=== PATIENT | female | born 1990 | race Caucasian/White ===

== ENCOUNTER 2022-04-23 14:14 | Emergency (ER) | payer SELFPAY ==
--- OUTSIDE RECORDS SUMMARY | 2022-04-23 14:19 | XMS REPORT | Continuity of Care Document ---
:1990 Author Organization [facility] t Address [address] [place] [address] [address]. [address] [place] [address] Care Team Providers Name Role Phone Naya Chirinos Primary Care Physician [phone] Yamil PHOENIX Attending Clinician Unavailable Yamil Monroy Attending Clinician YOON PAGE Attending Clinician Unavailable Yoon Page MD Attending Clinician Doctor Unassigned, [place] Attending Clinician Unavailable Pgy2 Attending Clinician Unavailable Marques Mansfield MD Attending Clinician [facility] Resident Attending Clinician Unavailable Aracely Villanueva MD Attending Clinician Dena Santos MD Attending Clinician [phone] Jeanette Henley MD Attending Clinician JEANETTE HENLEY Attending Clinician Unavailable BEBE GABRIEL Attending Clinician Unavailable Yamil PHOENIX Admitting Clinician Unavailable YOON PAGE Admitting Clinician Unavailable Payers Payer Name Policy Type Policy Number Effective Date Expiration Date S [place] [employer] [place] [id number] 2021 00:00:00 WOMEN Problems Condition Condition Condition Status Onset Resolution Last Treating Co mments Source Name Details Category Date Date Treatment Clinician Date No known No known Disease Unive rs active active ity of problems problems [facility] Allergies, Adverse Reactions, Alerts Allergy Allergy Status Severity Reaction(s) Onset Inactive Treating Comm ents Source Name Type Date Date Clinician NO KNOWN Drug Active Univers ALLERGIE Class ity of S [facility] Social History Social Habit Start Date Stop Date Quantity Comments Source Exposure to Not sure [facility] SARS-CoV-2 (event) Medica l Branch Alcohol intake 2021-06-24 2021-06-24 [facility] 00:00:00 00:00:00 Medical Branch Sex Ass[birth year] At [birth year] [facility] 00:00:00 00:00:00 Medical Branch Smoking Status Start Date Stop Date Source Unknown if ever smoked [facility] Medications Ordered Filled Start Stop Current Ordering Indication Dosage Frequency Signature Comments Components Source Medication Medication Date Date Medication? Clinician (SIG) Name Name Dose 0 No Unknown 03-02 00:00: 00 Dose 2021-0 No Unknown 03-02 00:00: 00 Dose 2021-0 No Unknown 03-02 00:00: 00 Dose 2021-0 No Unknown 03-02 00:00: 00 Dose 2021-0 No Unknown 7 00:00: 00 Dose 2021-0 No Unknown 03-02 00:00: 00 Dose 2021-0 No Unknown 7 00:00: 00 Wellbutrin 2-0 No 1mg XL 300 mg - 24 hr 00:00: tablet, 00 extended release buspirone 2021-0 No 1mg 10 mg 7-19 tablet 00:00: 00 Lamictal 25 2-0 No 2mg mg tablet 02-28 00:00: 00 Seroquel 2-0 No 1mg 100 mg 7-19 tablet 00:00: 00 Dose 2-0 No Unknown 7 00:00: 00 Dose 2-0 No Unknown 7- 00:00: 00 Dose 2-0 No Unknown 7- 00:00: 00 Dose 2-0 No Unknown 7-19 00:00: 00 Dose 2-0 No Unknown 7- 00:00: 00 Dose 2-0 No Unknown 7- 00:00: 00 Dose 2-0 No Unknown 7-13 00:00: 00 Dose 2-0 No Unknown 7- 00:00: 00 Dose 2-0 No Unknown 7- 00:00: 00 Dose 2-0 No Unknown 7- 00:00: 00 Dose 2-0 No Unknown 7-07 00:00: 00 Dose 2022-0 No Unknown 7-07 00:00: 00 Dose 2022-0 No Unknown 7-07 00:00: 00 Dose 2022-0 No Unknown 7-07 00:00: 00 Dose 2022-0 No Unknown 7-06 00:00: 00 Wellbutrin 2022-0 No 1mg XL 300 mg 7-05 24 hr 00:00: tablet, 00 extended release buspirone 2022-0 No 1mg 10 mg 7-05 tablet 00:00: 00 Seroquel 2022-0 No 1mg 100 mg 7-05 tablet 00:00: 00 Lamictal 25 2-0 No 1mg mg tablet 7-05 00:00: 00 Dose 2022-0 No Unknown 7-05 00:00: 00 Dose 2022-0 No Unknown 7-05 00:00: 00 Dose 2022-0 No Unknown 7-05 00:00: 00 Dose 2022-0 No Unknown 6-30 00:00: 00 Dose 2022-0 No Unknown 6-30 00:00: 00 Dose 2022-0 No Unknown 6-30 00:00: 00 levothyroxi 2022-0 No 1mcg ne 112 mcg 6-09 tablet 00:00: 00 chlorthalid 2022-0 No 1mg one 25 mg 6-08 tablet 00:00: 00 levothyroxi 2022-0 No 1mcg ne 50 mcg 6-08 tablet 00:00: 00 spironolact 2022-0 No 1mg one 100 mg 5-12 tablet 00:00: 00 ibuprofen 2022-0 No 1mg 800 mg 5-12 tablet 00:00: 00 Wellbutrin 2022-0 No 1mg XL 300 mg 5-03 24 hr 00:00: tablet, 00 extended release Celexa 20 2-0 No 1mg mg tablet 5-03 00:00: 00 buspirone 2022-0 No 1mg 10 mg 5-03 tablet 00:00: 00 Seroquel 2022-0 No 1mg 100 mg 5-03 tablet 00:00: 00 levothyroxi 2022-0 No 1mcg ne 25 mcg 4-18 tablet 00:00: 00 spironolact 2022-0 No 1mg one 50 mg 4-17 tablet 00:00: 00 metformin 2022-0 No 1mg ER 500 mg 4-14 24 hr 00:00: tablet,exte 00 nded release spironolact 2-0 No 1mg one 50 mg 4-14 tablet 00:00: 00 spironolact 2022-0 No 1mg one 50 mg 4-14 tablet 00:00: 00 levothyroxi 2-0 No 1mcg ne 25 mcg 4-14 tablet 00:00: 00 Dose 2022-0 No Unknown 4-14 00:00: 00 Dose 2022-0 No Unknown 4-14 00:00: 00 Dose 2022-0 No Unknown 4-14 00:00: 00 Wellbutrin 2022-0 No 1mg XL 300 mg 4-06 24 hr 00:00: tablet, 00 extended release Celexa 20 2-0 No 1mg mg tablet 4-05 00:00: 00 Wellbutrin 2022-0 No 1mg XL 300 mg 4-05 24 hr 00:00: tablet, 00 extended release buspirone 2-0 No 1mg 10 mg 4-05 tablet 00:00: 00 Seroquel 2-0 No 1mg 100 mg 4-05 tablet 00:00: 00 Dose 2022-0 No Unknown 4-05 00:00: 00 Dose 2022-0 No Unknown 4-05 00:00: 00 Dose 2022-0 No Unknown 4-05 00:00: 00 Dose 2022-0 No Unknown 4-05 00:00: 00 Dose 2022-0 No Unknown 4-05 00:00: 00 Dose 2022-0 No Unknown 4-05 00:00: 00 Dose 2022-0 No Unknown 4-05 00:00: 00 Dose 2022-0 No Unknown 4-05 00:00: 00 Dose 2022-0 No Unknown 4-05 00:00: 00 Dose 2022-0 No Unknown 4-05 00:00: 00 Dose 2022-0 No Unknown 4-05 00:00: 00 Dose 2022-0 No Unknown 4-05 00:00: 00 Dose 2022-0 No Unknown 4-05 00:00: 00 Dose 2022-0 No Unknown 4-05 00:00: 00 Dose 2022-0 No Unknown 4-05 00:00: 00 Dose 2022-0 No Unknown 4-05 00:00: 00 Dose 2022-0 No Unknown 4-05 00:00: 00 Dose 2022-0 No Unknown 4-05 00:00: 00 Dose 2022-0 No Unknown 3-03 00:00: 00 Dose 2022-0 No Unknown 3-03 00:00: 00 Dose 2022-0 No Unknown 3-03 00:00: 00 Dose 2022-0 No Unknown 3-03 00:00: 00 Dose 2022-0 No Unknown 3-03 00:00: 00 Dose 2022-0 No Unknown 3-03 00:00: 00 Dose 2022-0 No Unknown 3-03 00:00: 00 Dose 2022-0 No Unknown 3-03 00:00: 00 Dose 2022-0 No Unknown 3-03 00:00: 00 Dose 2022-0 No Unknown 3-03 00:00: 00 Dose 2022-0 No Unknown 3-03 00:00: 00 Dose 2022-0 No Unknown 3-03 00:00: 00 Dose 2022-0 No Unknown 3-03 00:00: 00 Dose 2022-0 No Unknown 3-03 00:00: 00 Dose 2022-0 No Unknown 3-03 00:00: 00 Dose 2022-0 No Unknown 3-03 00:00: 00 Dose 2022-0 No Unknown 3-03 00:00: 00 Dose 2022-0 No Unknown 3-03 00:00: 00 Dose 2022-0 No Unknown 3-03 00:00: 00 Dose 2022-0 No Unknown 3-03 00:00: 00 Dose 2022-0 No Unknown 3-03 00:00: 00 Dose 2022-0 No Unknown 3-03 00:00: 00 Dose 2022-0 No Unknown 3-03 00:00: 00 Dose 2022-0 No Unknown 3-03 00:00: 00 Dose 2022-0 No Unknown 3-03 00:00: 00 Dose 2022-0 No Unknown 3-03 00:00: 00 Dose 2022-0 No Unknown 3-03 00:00: 00 Dose 2022-0 No Unknown 3-03 00:00: 00 Celexa 20 2022-0 No 1mg mg tablet 2-25 00:00: 00 Dose 2022-0 No Unknown 2-25 00:00: 00 Dose 2022-0 No Unknown 2-25 00:00: 00 Dose 2022-0 No Unknown 2-25 00:00: 00 Dose 2022-0 No Unknown 2-25 00:00: 00 Dose 2022-0 No Unknown 2-25 00:00: 00 Dose 2022-0 No Unknown 2-25 00:00: 00 Dose 2022-0 No Unknown 2-25 00:00: 00 Dose 2022-0 No Unknown 2-25 00:00: 00 Dose 2022-0 No Unknown 2-25 00:00: 00 Dose 2022-0 No Unknown 2-25 00:00: 00 Dose 2022-0 No Unknown 2-25 00:00: 00 Dose 2022-0 No Unknown 2-25 00:00: 00 Dose 2022-0 No Unknown 2-25 00:00: 00 Dose 2022-0 No Unknown 2-25 00:00: 00 Dose 2022-0 No Unknown 2-25 00:00: 00 Dose 2022-0 No Unknown 2-25 00:00: 00 Dose 2022-0 No Unknown 2-25 00:00: 00 Dose 2022-0 No Unknown 2-25 00:00: 00 Dose 2022-0 No Unknown 2-25 00:00: 00 Dose 2022-0 No Unknown 2-25 00:00: 00 Dose 2022-0 No Unknown 2-25 00:00: 00 Dose 2022-0 No Unknown 2-25 00:00: 00 Dose 2022-0 No Unknown 2-25 00:00: 00 Dose 2022-0 No Unknown 2-25 00:00: 00 Dose 2022-0 No Unknown 2-25 00:00: 00 Dose 2022-0 No Unknown 2-25 00:00: 00 Dose 2022-0 No Unknown 2-25 00:00: 00 Dose 2022-0 No Unknown 2-25 00:00: 00 Dose 2022-0 No Unknown 2-25 00:00: 00 Dose 2022-0 No Unknown 2-25 00:00: 00 Dose 2022-0 No Unknown 2-25 00:00: 00 Dose 2022-0 No Unknown 2-25 00:00: 00 Dose 2022-0 No Unknown 2-25 00:00: 00 Dose 2022-0 No Unknown 2-25 00:00: 00 Dose 2022-0 No Unknown 2-25 00:00: 00 Dose 2022-0 No Unknown 2-25 00:00: 00 Dose 2-0 No Unknown 2-25 00:00: 00 Dose 2-0 No Unknown 2-25 00:00: 00 Dose 2-0 No Unknown 2-25 00:00: 00 Dose 2-0 No Unknown 2-25 00:00: 00 Dose 2-0 No Unknown 2-08 00:00: 00 Celexa 20 2-0 No 1mg mg tablet 2-08 00:00: 00 Dose 2022-0 No Unknown 2-08 00:00: 00 Dose 2-0 No Unknown 2-08 00:00: 00 Dose 2-0 No Unknown 2-08 00:00: 00 levothyroxi 2-0 No 1mcg ne 25 mcg 2-08 tablet 00:00: 00 Dose 2-0 No Unknown 2-02 00:00: 00 Dose 2-0 No Unknown 2-02 00:00: 00 Dose 2-0 No Unknown 2-02 00:00: 00 Dose 2-0 No Unknown 2-02 00:00: 00 Wellbutrin 2-0 No 1mg XL 150 mg 1-24 24 hr 00:00: tablet, 00 extended release Dose 2-0 No Unknown 1-24 00:00: 00 Dose 2-0 No Unknown 1-24 00:00: 00 Dose 2-0 No Unknown 1-24 00:00: 00 Dose 2-0 No Unknown 1-24 00:00: 00 Dose 2-0 No Unknown 1-11 00:00: 00 Wellbutrin 2-0 No 1mg XL 150 mg 1-11 24 hr 00:00: tablet, 00 extended release Dose 2-0 No Unknown 1-11 00:00: 00 Dose 2-0 No Unknown 1-11 00:00: 00 Dose 2-0 No Unknown 1-11 00:00: 00 Dose 2-0 No Unknown 1-11 00:00: 00 Zofran 4 mg 2020-1 No 1mg tablet 2-20 00:00: 00 Dose 2020-1 No Unknown 2-20 00:00: 00 omeprazole 2020-1 No 1mg 40 mg 2-20 capsule,del 00:00: ayed 00 release maalox:diph 2021-1 2021- No 15mL 15 mL, Uni vers enhydrAMINE 2-15 12-15 Oral ity of :lidocaine 21:00: 20:01 [place] 2 % viscous 00 :00 Swallow), Med ical 1:1:1 ONCE, 1 Branch (FIRST-MOUT dose, On HWASH BLM) Wed oral 07/27/21 suspension at 1500, 15 mL Routine methocarbam 2020-08 No 500mg 500 mg, U nivers oL 2-15 12-15 Oral, ity of (ROBAXIN) 19:30: 18:29 [place]CE, 1 [place] tablet 500 00 :00 dose, On Medic al mg Wed Branch 07/27/21 at 1330, Routine ketorolac 2020-08- No 30mg 30 mg, Unive rs (TORADOL) 2-15 12-15 Slow IV ity of injection 19:30: 18:28 Push, [place] 30 mg 00 :00 ONCE, 1 Medical dose, On Branch 07/27/21 at 1330, PAWEL
Fa culty member approving Restricted medication : Yamil PHOENIX aspirin 2020-08- No 324mg 324 mg, Unive rs chewable 2-15 12-15 Oral, ity of tablet 324 19:30: 19:30 ONCE, 1 [place] mg 00 :00 dose, On Medical Wed Branch 07/27/21 at 1330, Routine famotidine 2020-08 Yes [id number] 40mg Take 1 Univers (PEPCID) 40 2-15 tablet by ity of mg tablet 00:00: mouth [place] 00 daily. Medical Branch ibuprofen 2020-08 Yes [id number] 600mg Take 1 U nivers 600 mg 2-15 tablet by ity of tablet 00:00: mouth [place] 00 every 6 Medical (six) Branch hours as needed for Pain (scale 4-6). methocarbam 2020-08 Yes [id number] 500mg Take 1 Univers oL 500 mg 2-15 tablet by ity o f tablet 00:00: mouth 4 [place] 00 (four) Medical times Branch daily. Dose 2020-08 No Unknown 2-15 00:00: 00 hydroxyzine 2020-08 No 1mg HCl 50 mg 2-15 tablet 00:00: 00 Dose 2020-08 No Unknown 2-15 00:00: 00 sertraline 2020-08 No 15mg 100 mg 1-18 tablet 00:00: 00 hydroxyzine 2020-08 No 1mg HCl 50 mg 1-18 tablet 00:00: 00 trazodone 2020-08 No 2mg 100 mg 1-18 tablet 00:00: 00 acetaminoph 2020-08- No 1000mg 1,000 mg, Univers en 1-13 -13 Oral, ity of (TYLENOL) 05:45: 04:43 ONCE, 1 [place] tablet 00 :00 dose, On Medical 1,000 mg Fri Branch 06/24/21 at 2345, Routine Dose 2020-08 No Unknown 1-04 00:00: 00 Dose 2020-08 No Unknown 1-04 00:00: 00 Dose 2020-08 No Unknown 1-04 00:00: 00 Abilify 2 2020-08 No 1mg mg tablet 1-04 00:00: 00 Zoloft 100 2020-08 No 1mg mg tablet 0-18 00:00: 00 hydroxyzine 2020-08 No 1mg HCl 50 mg 0-18 tablet 00:00: 00 hydroxyzine 2020-08 No 1mg HCl 50 mg 0-18 tablet 00:00: 00 trazodone 2020-08 No 1mg 100 mg 0-18 tablet 00:00: 00 sertraline 2020-08 No 1mg 50 mg 0-04 tablet 00:00: 00 Dose 2020-1 No Unknown 0-04 00:00: 00 sertraline 2020-0 No 1mg 50 mg 9-20 tablet 00:00: 00 Dose 2020-0 No Unknown 9-20 00:00: 00 levonorgest 2020-0 2020- No [id number] 1{devic Univers reL 01-05 100 e} ity of (LILETTA) 21:00: 21:00 [place] IUD 1 00 :00 Flat Folder Branch ibuprofen 2020- No [id number] 800mg Univers (IBU) 01-05 100 ity of tablet 800 21:00: 21:00 [place] mg 00 :00 Medical Branch ibuprofen 2020- No [id number] 800mg 800 mg, Univers (IBU) 01-05 100 Oral, ity of tablet 800 21:00: 21:00 ONCE, 1 [place] mg 00 :00 dose, [facility] 01/05/21 at Branch 1600, Routine levonorgest 2020- No [id number] 1{devic 1 Device, Univers reL 01-05 100 e} Intrauteri ity of (LILETTA) 21:00: 21:00 [place], [place]CE, [place] 1 00 :00 1 dose, Flat Folder [facility] 01/05/21 at 1600, Routine levonorgest 2020- No [id number] 1{devi Univers reL 01-05 100 e} ity of (LILETTA) 21:00: 21:00 [place] IUD 1 00 :00 Flat [place] [facility] ibuprofen 2020- No [id number] 800mg Univers (IBU) 01-05 100 ity of tablet 800 21:00: 21:00 [place] mg 00 :00 Medical [facility] ibuprofen 2020- No [id number] 800mg 800 mg, Univers (IBU) 01-05 100 Oral, ity of tablet 800 21:00: 21:00 ONCE, 1 [place] mg 00 :00 dose, [facility] 01/05/21 at Branch 1600, Routine levonorgest 2020- No [id number] 1{devic 1 Device, Univers reL 01-05 100 e} Intrauteri ity of (LILETTA) 21:00: 21:00 [place], [place]CE, [place] 1 00 :00 1 dose, Flat Folder [facility] 01/05/21 at 1600, Routine levonorgest 2020- No [id number] 1{devi Univers reL 01-05 100 e} ity of (LILETTA) 21:00: 21:00 [place] IUD 1 00 :00 [place] [facility] ibuprofen 2020- No [id number] 800mg Univers (IBU) 01-05 100 ity of tablet 800 21:00: 21:00 [place] mg 00 :00 Medical [facility] ibuprofen 2020- No [id number] 800mg 800 mg, Univers (IBU) 01-05 100 Oral, ity of tablet 800 21:00: 21:00 ONCE, 1 [place] mg 00 :00 dose, Wed Medical 01/05/21 at Branch 1600, Routine levonorgest 2020- No [id number] 1{devic 1 Device, [facility] 01-05 100 e} Intrauteri ity of ([facility]) 21:00: 21:00 [place], [place]CE, [place] 1 00 :00 1 dose, Flat Folder Wed [facility] 01/05/21 at 1600, Routine levonorgest 2026- No by [facility] 01-05 Intrauteri ity of ([facility] 00:00: 04:59 ne route. [place] INTRAUTERIN 00 :00 Medical E) Branch levonorgest 2026- No by [facility] 01-05 Intrauteri ity of ([facility] 00:00: 04:59 ne route. [place] INTRAUTERIN 00 :00 Medical E) Branch levonorgest 2026- No by [facility] 01-05 Intrauteri ity of ([facility] 00:00: 04:59 ne route. [place] INTRAUTERIN 00 :00 Medical E) Branch levonorgest 2026- No by [facility] 01-05 Intrauteri ity of ([facility] 00:00: 04:59 ne route. [place] INTRAUTERIN 00 :00 Medical E) Branch levonorgest 2026- No by [facility] 01-05 Intrauteri ity of ([facility] 00:00: 04:59 ne route. [place] INTRAUTERIN 00 :00 Medical E) Branch levonorgest 2026- No by [facility] 01-05 Intrauteri ity of ([facility] 00:00: 04:59 ne route. [place] INTRAUTERIN 00 :00 Medical E) Branch ProAir HFA No 2mcg/ac 90 5-03 tuation mcg/actuati 00:00: on aerosol 00 inhaler Tessalon 2020-0 No 1mg Perles 100 5-03 mg capsule 00:00: 00 mupirocin 2 2020-0 No 1% % topical 4-09 ointment 00:00: 00 clotrimazol 2020-0 No 1% e 1 % 11-19 topical 00:00: cream 00 Diflucan 2020-0 No 1mg 150 mg 11-19 tablet 00:00: 00 No known No Univers medications ity of [facility] No known No [facility] known No Univers medications it of [facility] No known No Univers medications it of [facility] Immunizations Ordered Filled Immunization Date Status Comments [facility] e Immunization Name Name SARS-COV-2 COVID-19 2020-12-02 Completed Unive rsity of PFIZER VACCINE 00:00:00 [facility] SARS-COV-2 COVID-19 2020-12-02 Completed Unive rsity of PFIZER VACCINE 00:00:00 [facility] SARS-COV-2 COVID-19 2020-12-02 Completed Unive rsity of PFIZER VACCINE 00:00:00 [facility] SARS-COV-2 COVID-19 2020-12-02 Completed Unive rsity of PFIZER VACCINE 00:00:00 [facility] SARS-COV-2 COVID-19 2020-12-02 Completed Unive rsity of PFIZER VACCINE 00:00:00 [facility] SARS-COV-2 COVID-19 2020-12-02 Completed Unive rsity of PFIZER VACCINE 00:00:00 [facility] SARS-COV-2 COVID-19 2020-12-02 Completed Unive rsity of PFIZER VACCINE 00:00:00 [facility] SARS-COV-2 COVID-19 2020-12-02 Completed Unive rsity of PFIZER VACCINE 00:00:00 [facility] SARS-COV-2 COVID-19 2020-12-02 Completed Unive rsity of PFIZER VACCINE 00:00:00 [facility] SARS-COV-2 COVID-19 2020-12-02 Completed Unive rsity of PFIZER VACCINE 00:00:00 [facility] SARS-COV-2 COVID-19 2020-12-02 Completed Unive rsity of PFIZER VACCINE 00:00:00 [facility] SARS-COV-2 COVID-19 2020-12-02 Completed Unive rsity of PFIZER VACCINE 00:00:00 [facility] SARS-COV-2 COVID-19 2020-12-02 Completed Unive rsity of PFIZER VACCINE 00:00:00 [facility] SARS-COV-2 COVID-19 2020-12-02 Completed Unive rsity of PFIZER VACCINE 00:00:00 [facility] Branch SARS-COV-2 COVID-19 2020-11-09 Completed Unive rsity of PFIZER VACCINE 00:00:00 [facility] SARS-COV-2 COVID-19 2020-11-09 Completed Unive rsity of PFIZER VACCINE 00:00:00 [facility] SARS-COV-2 COVID-19 2020-11-09 Completed Unive rsity of PFIZER VACCINE 00:00:00 [facility] Branch SARS-COV-2 COVID-19 2020-11-09 Completed Unive rsity of PFIZER VACCINE 00:00:00 [facility] SARS-COV-2 COVID-19 2020-11-09 Completed Unive rsity of PFIZER VACCINE 00:00:00 [facility] SARS-COV-2 COVID-19 2020-11-09 Completed Unive rsity of PFIZER VACCINE 00:00:00 [facility] SARS-COV-2 COVID-19 2020-11-09 Completed Unive rsity of PFIZER VACCINE 00:00:00 [facility] SARS-COV-2 COVID-19 2020-11-09 Completed Unive rsity of PFIZER VACCINE 00:00:00 [facility] SARS-COV-2 COVID-19 2020-11-09 Completed Unive rsity of PFIZER VACCINE 00:00:00 [facility] SARS-COV-2 COVID-19 2020-11-09 Completed Unive rsity of PFIZER VACCINE 00:00:00 [facility] SARS-COV-2 COVID-19 2020-11-09 Completed Unive rsity of PFIZER VACCINE 00:00:00 [facility] SARS-COV-2 COVID-19 2020-11-09 Completed Unive rsity of PFIZER VACCINE 00:00:00 [facility] SARS-COV-2 COVID-19 2020-11-09 Completed Unive rsity of PFIZER VACCINE 00:00:00 [facility] SARS-COV-2 COVID-19 2020-11-09 Completed Unive rsity of PFIZER VACCINE 00:00:00 [facility] Vital Signs Vital Name Observation Time Observation Value Comments Source Heart rate 2021-07-27 21:30:00 62 /min [facility] [place] [facility] Respiratory rate 2021-07-27 21:30:00 22 /min Univ ersity [facility] [place] [facility] Oxygen saturation in 2021-07-27 21:30:00 95 /min University of Arterial blood by [facility] Pulse oximetry Branch Systolic blood 2021-07-27 21:25:00 137 mm[Hg] Univer sity of pressure [place] [facility] Diastolic blood 2021-07-27 21:25:00 77 mm[Hg] Unive rsity of pressure [place] [facility] Body temperature 2021-07-27 18:35:24 36.78 Cele Univ [facility] [place] [facility] Body height 2021-07-27 18:02:00 147.3 cm [facility] [place] [facility] Body weight 2021-07-27 18:02:00 124.739 kg [facility] [place] [facility] BMI 2021-07-27 18:02:00 57.48 kg/m2 [facility] [place] [facility] Systolic blood 2021-06-25 05:00:00 134 mm[Hg] Univer sity of pressure [place] [facility] Diastolic blood 2021-06-25 05:00:00 60 mm[Hg] Unive rsity of pressure [place] [facility] Heart rate 2021-06-25 05:00:00 78 /min [facility] [place] [facility] Respiratory rate 2021-06-25 05:00:00 27 /min Univ [facility] [place] [facility] Oxygen saturation in 2021-06-25 05:00:00 97 /min University of Arterial blood by [facility] Pulse oximetry Branch Body temperature 2021-06-25 04:16:00 36.94 Cele Univ [facility] [place] [facility] Body height 2021-06-25 04:16:00 147.3 cm [facility] [place] [facility] Body weight 2021-06-25 04:16:00 127.007 kg [facility] [place] [facility] BMI 2021-06-25 04:16:00 58.52 kg/m2 [facility] [place] [facility] Systolic blood 2021-02-17 19:29:00 124 mm[Hg] Univer sity of pressure [place] [facility] Diastolic blood 2021-02-17 19:29:00 88 mm[Hg] Unive rsity of pressure [place] [facility] Heart rate 2021-02-17 19:29:00 89 /min [facility] [place] [facility] Respiratory rate 2021-02-17 19:29:00 18 /min Univ ers[facility] [place] [facility] Body weight 2021-02-17 19:29:00 126.281 kg [facility] [place] [facility] BMI 2021-02-17 19:29:00 56.23 kg/m2 [facility] [place] [facility] Systolic blood 2021-01-05 19:16:00 132 mm[Hg] Univer sity of pressure [place] [facility] Diastolic blood 2021-01-05 19:16:00 88 mm[Hg] Unive rsity of pressure [place] [facility] Heart rate 2021-01-05 19:16:00 89 /min [facility] [place] [facility] Body temperature 2021-01-05 19:16:00 37.28 Cele [facility] [place] [facility] Respiratory rate 2021-01-05 19:16:00 18 /min Univ [facility] [place] [facility] Body height 2021-01-05 19:16:00 149.9 cm [facility] [place] [facility] Body weight 2021-01-05 19:16:00 125.51 kg [facility] [place] [facility] BMI 2021-01-05 19:16:00 55.89 kg/m2 [facility] [place] [facility] Systolic blood 2020-12-07 19:42:00 124 mm[Hg] Univer sity of pressure [place] [facility] Diastolic blood 2020-12-07 19:42:00 86 mm[Hg] Unive rsity of pressure [place] [facility] Heart rate 2020-12-07 19:42:00 89 /min [facility] [place] [facility] Respiratory rate 2020-12-07 19:42:00 19 /min Univ [facility] [place] [facility] Body height 2020-12-07 19:42:00 152.4 cm [facility] [place] [facility] Body weight 2020-12-07 19:42:00 127.551 kg [facility] [place] [facility] BMI 2020-12-07 19:42:00 54.92 kg/m2 [facility] [place] [facility] BP Systolic 2022-03-02 14:40:00 128 mm[Hg] BP Diastolic 2022-03-02 14:40:00 87 mm[Hg] Weight Measured 2022-03-02 14:40:00 281.40 pounds Height Measured 2022-03-02 14:40:00 60.16 inches Body Temperature 2022-03-02 14:40:00 98.00 degrees Heart Rate 2022-03-02 14:40:00 107.00 /min Respiratory Rate 2022-03-02 14:40:00 18.00 /min BP Systolic 2022-01-31 16:49:00 119 mm[Hg] BP Diastolic 2022-01-31 16:49:00 63 mm[Hg] Weight Measured 2022-01-31 16:49:00 280.00 pounds Height Measured 2022-01-31 16:49:00 60.16 inches Body Temperature 2022-01-31 16:49:00 98.10 degrees Heart Rate 2022-01-31 16:49:00 92.00 /min Respiratory Rate 2022-01-31 16:49:00 18.00 /min BP Systolic 2022-01-27 13:08:00 116 mm[Hg] BP Diastolic 2022-01-27 13:08:00 71 mm[Hg] Weight Measured 2022-01-27 13:08:00 279.40 pounds Height Measured 2022-01-27 13:08:00 60.16 inches Body Temperature 2022-01-27 13:08:00 98.10 degrees Heart Rate 2022-01-27 13:08:00 108.00 /min Respiratory Rate 2022-01-27 13:08:00 16.00 /min BP Systolic 2022-01-24 11:34:00 135 mm[Hg] BP Diastolic 2022-01-24 11:34:00 86 mm[Hg] Weight Measured 2022-01-24 11:34:00 282.00 pounds Height Measured 2022-01-24 11:34:00 60.16 inches Body Temperature 2022-01-24 11:34:00 98.30 degrees Heart Rate 2022-01-24 11:34:00 87.00 /min Respiratory Rate 2022-01-24 11:34:00 16.00 /min BP Systolic 2022-01-18 11:02:00 129 mm[Hg] BP Diastolic 2022-01-18 11:02:00 90 mm[Hg] Weight Measured 2022-01-18 11:02:00 283.80 pounds Height Measured 2022-01-18 11:02:00 60.16 inches Body Temperature 2022-01-18 11:02:00 98.10 degrees Heart Rate 2022-01-18 11:02:00 86.00 /min Respiratory Rate 2022-01-18 11:02:00 20.00 /min BP Systolic 2022-01-18 10:39:00 129 mm[Hg] BP Diastolic 2022-01-18 10:39:00 90 mm[Hg] Weight Measured 2022-01-18 10:39:00 283.80 pounds Height Measured 2022-01-18 10:39:00 60.16 inches Body Temperature 2022-01-18 10:39:00 98.10 degrees Heart Rate 2022-01-18 10:39:00 86.00 /min Respiratory Rate 2022-01-18 10:39:00 20.00 /min BP Systolic 2021-12-27 10:00:00 131 mm[Hg] BP Diastolic 2021-12-27 10:00:00 78 mm[Hg] Weight Measured 2021-12-27 10:00:00 286.00 pounds Height Measured 2021-12-27 10:00:00 60.16 inches Body Temperature 2021-12-27 10:00:00 98.30 degrees Heart Rate 2021-12-27 10:00:00 79.00 /min Respiratory Rate 2021-12-27 10:00:00 20.00 /min BP Systolic 2021-12-22 11:19:00 BP Diastolic 2021-12-22 11:19:00 Weight Measured 2021-12-22 11:19:00 287.60 pounds Height Measured 2021-12-22 11:19:00 60.16 inches Body Temperature 2021-12-22 11:19:00 Heart Rate 2021-12-22 11:19:00 Respiratory Rate 2021-12-22 11:19:00 BP Systolic 2021-11-24 09:38:00 144 mm[Hg] BP Diastolic 2021-11-24 09:38:00 95 mm[Hg] Weight Measured 2021-11-24 09:38:00 287.60 pounds Height Measured 2021-11-24 09:38:00 60.16 inches Body Temperature 2021-11-24 09:38:00 98.30 degrees Heart Rate 2021-11-24 09:38:00 67.00 /min Respiratory Rate 2021-11-24 09:38:00 18.00 /min BP Systolic 2021-09-20 14:38:00 154 mm[Hg] BP Diastolic 2021-09-20 14:38:00 96 mm[Hg] Weight Measured 2021-09-20 14:38:00 281.00 pounds Height Measured 2021-09-20 14:38:00 60.16 inches Body Temperature 2021-09-20 14:38:00 98.60 degrees Heart Rate 2021-09-20 14:38:00 71.00 /min Respiratory Rate 2021-09-20 14:38:00 18.00 /min Procedures Procedure Date / Time Performed Performing Clinician [facility] e TROPONIN I 2021-07-27 20:28:[address] [facility] D-DIMER 2021-07-27 20:27:[address] [facility] XR CHEST 1 VW 2021-07-27 19:38:[address] [facility] POCT TEST 2021-07-27 18:28:00 Yamil Phoenix [facility] URINALYSIS 2021-07-27 18:26:[address] [facility] MAGNESIUM 2021-07-27 18:06:[address] [facility] TROPONIN I 2021-07-27 18:06:[address] [facility] COMP. METABOLIC PANEL 2021-07-27 18:06:00 Yamil Phoenix [facility] ([id number]) [facility] CBC WITH DIFF 2021-07-27 18:06:[address] [facility] CT HEAD WO CONTRAST 2021-06-25 05:12:41 Yoon Page [facility] NOTICE OF PRIVACY 2021-06-25 04:02:52 Doctor Unassigned, No [facility] 2021-06-25 04:01:22 Doctor Unassigned, [facility] TREATMENT DISCLOSURE AND 2021-01-06 05:01:00 [facility] No [facility] CONSENT, MEDICAL AND Name Medical [facility] SURGICAL PROCEDURES POCT TEST 2021-01-05 19:26:00 Aracely Villanueva [facility] POCT TEST 2020-12-07 20:47:00 Fern Moctezuma [facility] ASSIGNMENT OF BENEFITS 2020-12-07 19:26:29 Doctor Unassigned, No [facility] Plan of Care Planned Activity Planned Date Details Comments Source Goal Plan of Care Note [code = 56796-8] Goal Plan of Care Note [code = 19105-9] Goal Plan of Care Note [code = 87901-2] Goal Plan of Care Note [code = 58004-5] Goal Plan of Care Note [code = 86278-3] Goal Plan of Care Note [code = 23990-7] Goal Plan of Care Note [code = 58597-1] Goal Plan of Care Note [code = 58183-7] Goal Plan of Care Note [code = 05519-3] Goal Plan of Care Note [code = 31492-0] Goal Plan of Care Note [code = 24092-8] Goal Plan of Care Note [code = 39867-6] Goal Plan of Care Note [code = 47635-8] Goal Plan of Care Note [code = 68784-1] Goal Plan of Care Note [code = 00558-4] Goal Plan of Care Note [code = 30829-8] Goal Plan of Care Note [code = 55623-3] Goal Plan of Care Note [code = 15778-0] Goal Plan of Care Note [code = 77986-1] Goal Plan of Care Note [code = 84594-2] Goal Plan of Care Note [code = 51047-6] Goal Plan of Care Note [code = 87218-4] Goal Plan of Care Note [code = 55704-0] Goal Plan of Care Note [code = 92403-9] Goal Plan of Care Note [code = 96102-0] Goal Plan of Care Note [code = 60126-4] Goal Plan of Care Note [code = 98670-1] Goal Plan of Care Note [code = 44049-2] Goal Plan of Care Note [code = 32705-9] Goal Plan of Care Note [code = 03348-8] Encounters Start End Encounter Admission Attending Care Care Encounter Source Date/Time Date/Time Type Type Clinicians Facility Department ID 2022-03-02 2022-03-02 Outpatient [id number] 00:00:00 00:00:00 Visit [id number] 2021-07-27 2021-07-27 Emergency X LIZETT, K [facility] ERT [id number] Univers 11:56:00 15:42:00 ity of [facility] 2021-07-27 2021-07-27 Emergency Yamil Phoenix [facility] [id number] Univers 11:56:00 15:42:00 Carmen TAPIA 350.1.13.10 i ty [facility] 4.2.7.2.686 [facility] [id number] [address] 2021-06-24 2021-06-24 Emergency X [facility] ERT [id number] Univers 22:06:00 23:54:00 YOON ity [facility] 2021-06-24 2021-06-24 Emergency [facility] [id number] Univers 22:06:00 23:54:00 Giovana Ajith TAPIA 350.1.13.10 ity [facility] 4.2.7.[address] [place] [id number] 2021-06-24 2021-06-24 Orders Doctor GONG [id number] Univers 00:00:00 00:00:00 Only Unassigned, MILTON 350.1.13.10 ity of [place] [facility] 4.2.7.2.686 [place] [id number] [facility] [address] Branch 2021-02-17 2021-02-17 Office Pgy2 UNIVERSIT [id number] Univers 14:13:58 15:19:24 Visit Marques [place] [facility] 350.1.13.10 it[place] [id number] [facility] 113 Branch 2021-02-17 2021-02-17 Outpatient R [facility] [id number] Univers 14:00:00 14:00:00 [id number] ity of [facility] 2021-02-17 2021-02-17 Outpatient R [facility] [id number] Univers 14:00:00 14:00:00 ity of [facility] 2021-01-06 2021-01-06 Orders Doctor BELTRAN [id number] Univers 00:00:00 00:00:00 Only Unassigned, MIL[place] 350.1.13.10 ity of [place] [facility] 4.2.7.2.686 [place] [id number] [facility] 009 Branch 2021-01-05 2021-01-05 Office [place], [facility] Resident UNIVERSIT 1.2.8 40.114 [id number] Univers 13:58:29 16:19:12 Visit Aracely Villanueva [facility] 350.1.13.10 it[place] [id number] [facility] 113 Branch 2021-01-05 2021-01-05 Outpatient R [facility] [id number] Univers 14:15:00 14:15:00 [id number] ity of [facility] 2021-01-05 2021-01-05 Outpatient R [facility] [id number] Univers 14:15:00 14:15:00 ity of [facility] 2020-12-10 2020-12-10 Telephone Silvestre UNIVERSIT [id number] Univers 00:00:00 00:00:00 lford, Y HEALTH 350.1.13.10 i ty of [place] [facility] [place] [id number] [facility] 113 Branch 2020-12-07 2020-12-07 Office [place], [facility] Resident UNIVERSIT 1.2.8 40.114 [id number] Univers 14:35:42 16:30:20 Visit Jeanette Henley [facility] 350.1.13.10 ity of [facility] [place] [id number] [address] Branch 2020-12-07 2020-12-07 Outpatient R ANDRES [facility] [id number] [facility] 14:30:00 14:30:00 JEANETTE ity [facility] 2020-12-07 2020-12-07 Orders Doctor BELTRAN [id number] Univers 00:00:00 00:00:00 Only Unassigned, MIL[place] 350.1.13.10 ity of [place] [facility] 4.2.7.2.686 [place] [id number] [place] [address] Branch 2020-12-02 2020-12-02 Outpatient R HARVEY [facility] [id number] [facility] 14:05:00 14:05:00 BEBE ity [facility] Results Test Description Test Time Test Comments Results Result Comments Source TSH, THIRD GENERATION 2022-01-19 09:09:54 Test Item Value Reference Range Interpretation Comme nts TSH, THIRD GENERATION (test 9.840 UIU/ML 0.400-4.100 H UNLESS OTHERWISE INDICATED, code = 2821) ALL TESTING PER FORMED ATCLINICAL PATH [facility], [place] [address] 2350 TEXTILE SUPERVISOR: Edward LONG [id number] [place]. [id number] 00:00:00 Test Item Value Reference Range Interpretation Comments TSH, THIRD GENERATION (test code 9.840 UIU/ML = 2821) [id number] 00:00:00 Test Item Value Reference Range Interpretation Comments TSH, THIRD GENERATION (test code 9.840 UIU/ML = 2821) TSH, THIRD [id number] 05:03:02 Test Item Value Reference Range Interpretation Comments TSH, THIRD 7.050 UIU/ML 0.400-4.100 H UNLESS OTHERWI SE GENERATION (test INDICATED, ALL TESTING code = 2821) PERFORMED [facility], [facility]. [address] [place] [address] [facility] DIRECTOR: EDVIN BENSON M.D. CLIA NUMBER [id number] CAP ACCREDITATION N O. [id number] 00:00:00 Test Item Value Reference Range Interpretation Comments TSH, THIRD GENERATION (test code 7.050 UIU/ML = 2821) [id number] 00:00:00 Test Item Value Reference Range Interpretation Comments TSH, THIRD GENERATION (test code 7.050 UIU/ML = 2821) CBC W/AUTO DIFF WITH [id number] 03:06:39 Test Item Value Reference Range Interpretation Comments WBC (test code = 11.0 K/UL 3.5-11.0 1001) RBC (test code = 4.51 M/UL 3.80-5.40 1002) HEMOGLOBIN (test 12.6 G/DL 11.5-15.5 code = 1003) HEMATOCRIT (test 37.7 % 34.0-45.0 code = 1004) MCV (test code = 83.6 fL 80.0-99.0 1005) MCH (test code = 27.9 PG 25.0-33.0 1006) MCHC (test code = 33.4 G/DL 31.0-36.0 1007) RDW (test code = 13.2 % 11.5-15.0 1038) NEUTROPHILS (test 64.1 % code = 1008) LYMPHOCYTES (test 26.7 % code = 1010) MONOCYTES (test code 6.6 % = 1011) EOSINOPHILS (test 1.8 % code = 1012) BASOPHILS (test code 0.5 % = 1013) IMMATURE 0.3 % GRANULOCYTES (test code = 1036) NUCLEATED RBCS (test 0.0 /100 See_Comment [Autom ated message] code = 1065) WBC'S The system whic h generated this result transmitted ref erence range: 0.0. The reference range was not used to int erpret this result as normal/abnormal . PLATELET COUNT (test 303 K/UL 130-400 code = 1015) ABSOLUTE NEUTROPHILS 7.05 K/UL 1.50-7.50 (test code = 1066) ABSOLUTE LYMPHOCYTES 2.94 K/UL 1.00-4.00 (test code = 1067) ABSOLUTE MONOCYTES 0.73 K/UL 0.20-1.00 (test code = 1068) ABSOLUTE EOSINOPHILS 0.20 K/UL 0.00-0.50 (test code = 1040) ABSOLUTE BASOPHILS 0.05 K/UL 0.00-0.20 (test code = 1069) ABS IMMATURE 0.03 K/UL 0.00-0.10 GRANULOCYTES (test code = 1020) ABS NUCLEATED RBCS 0.00 K/UL 0.00-0.11 UNLESS O THERWISE (test code = 67712) INDICATE D, ALL TESTING PERFORM ED ATCLINICAL PATH OLOGY LABORATORIES, [facility]. [address] [place] [id number] [facility] S[facility] DIRECTOR: EDVIN BENSON M.D. CLIA NUMBER [id number] CAP ACCREDITATION N O. [id number] CBC W/AUTO [id number] 00:00:00 Test Item Value Reference Range Interpretation Comments WBC (test code = 1001) 11.0 K/UL RBC (test code = 1002) 4.51 M/UL HEMOGLOBIN (test code = 1003) 12.6 G/DL HEMATOCRIT (test code = 1004) 37.7 % MCV (test code = 1005) 83.6 fL MCH (test code = 1006) 27.9 PG MCHC (test code = 1007) 33.4 G/DL RDW (test code = 1038) 13.2 % NEUTROPHILS (test code = 1008) 64.1 % LYMPHOCYTES (test code = 1010) 26.7 % MONOCYTES (test code = 1011) 6.6 % EOSINOPHILS (test code = 1012) 1.8 % BASOPHILS (test code = 1013) 0.5 % IMMATURE GRANULOCYTES (test 0.3 % code = 1036) NUCLEATED RBCS (test code = 0.0 /100WBC'S 1065) PLATELET COUNT (test code = 303 K/UL 1015) ABSOLUTE NEUTROPHILS (test code 7.05 K/UL = 1066) ABSOLUTE LYMPHOCYTES (test code 2.94 K/UL = 1067) ABSOLUTE MONOCYTES (test code = 0.73 K/UL 1068) ABSOLUTE EOSINOPHILS (test code 0.20 K/UL = 1040) ABSOLUTE BASOPHILS (test code = 0.05 K/UL 1069) ABS IMMATURE GRANULOCYTES (test 0.03 K/UL code = 1020) ABS NUCLEATED RBCS (test code = 0.00 K/UL 64183) CBC W/AUTO [id number] 00:00:00 Test Item Value Reference Range Interpretation Comments WBC (test code = 1001) 11.0 K/UL RBC (test code = 1002) 4.51 M/UL HEMOGLOBIN (test code = 1003) 12.6 G/DL HEMATOCRIT (test code = 1004) 37.7 % MCV (test code = 1005) 83.6 fL MCH (test code = 1006) 27.9 PG MCHC (test code = 1007) 33.4 G/DL RDW (test code = 1038) 13.2 % NEUTROPHILS (test code = 1008) 64.1 % LYMPHOCYTES (test code = 1010) 26.7 % MONOCYTES (test code = 1011) 6.6 % EOSINOPHILS (test code = 1012) 1.8 % BASOPHILS (test code = 1013) 0.5 % IMMATURE GRANULOCYTES (test 0.3 % code = 1036) NUCLEATED RBCS (test code = 0.0 /100WBC'S 1065) PLATELET COUNT (test code = 303 K/UL 1015) ABSOLUTE NEUTROPHILS (test code 7.05 K/UL = 1066) ABSOLUTE LYMPHOCYTES (test code 2.94 K/UL = 1067) ABSOLUTE MONOCYTES (test code = 0.73 K/UL 1068) ABSOLUTE EOSINOPHILS (test code 0.20 K/UL = 1040) ABSOLUTE BASOPHILS (test code = 0.05 K/UL 1069) ABS IMMATURE GRANULOCYTES (test 0.03 K/UL code = 1020) ABS NUCLEATED RBCS (test code = 0.00 K/UL 71635) CBC W/AUTO DIFF WITH [id number] 10:01:09 Test Item Value Reference Range Interpretation Comments WBC (test code = TEST NOT 3.5-11.0 Unable to p erform 1001) PERFORMED K/UL testing, spec imen not received.Charge s adjusted as applicable. RBC (test code = TEST NOT 3.80-5.40 1002) PERFORMED M/UL HEMOGLOBIN (test code TEST NOT 11.5-15.5 = 1003) PERFORMED G/DL HEMATOCRIT (test code TEST NOT 34.0-45.0 = 1004) PERFORMED % MCV (test code = TEST NOT 80.0-99.0 1005) PERFORMED fL MCH (test code = TEST NOT 25.0-33.0 1006) PERFORMED PG MCHC (test code = TEST NOT 31.0-36.0 1007) PERFORMED G/DL RDW (test code = TEST NOT 11.5-15.0 1038) PERFORMED % NEUTROPHILS (test TEST NOT code = 1008) PERFORMED % BANDS (test code = TEST NOT 0.0-8.0 1009) PERFORMED % LYMPHOCYTES (test TEST NOT code = 1010) PERFORMED % MONOCYTES (test code TEST NOT = 1011) PERFORMED % EOSINOPHILS (test TEST NOT code = 1012) PERFORMED % BASOPHILS (test code TEST NOT = 1013) PERFORMED % IMMATURE GRANULOCYTES TEST NOT (test code = 1036) PERFORMED % METAMYELOCYTES (test TEST NOT See_Comment [Autom ated code = 1061) PERFORMED % message] The system which generated this result transmitted reference range : 0.0. The reference range was not used to interpret this result as normal/abnormal . MYELOCYTES (test code TEST NOT See_Comment [Auto mated = 1062) PERFORMED % message] The system which generated this result transmitted reference range : 0.0. The reference range was not used to interpret this result as normal/abnormal . PROMYELOCYTES (test TEST NOT See_Comment [Automa kenzie code = 1063) PERFORMED % message] The system which generated this result transmitted reference range : 0.0. The reference range was not used to interpret this result as normal/abnormal . BLASTS (test code = TEST NOT See_Comment [Automa kenzie 1064) PERFORMED % message] The system which generated this result transmitted reference range : 0.0. The reference range was not used to interpret this result as normal/abnormal . NUCLEATED RBCS (test TEST NOT See_Comment [Autom ated code = 1065) PERFORMED /100 message] The WBC'S system which generated this result transmitted reference range : 0.0. The reference range was not used to interpret this result as normal/abnormal . PLATELET COUNT (test TEST NOT 130-400 code = 1015) PERFORMED K/UL ABSOLUTE NEUTROPHILS TEST NOT 1.50-7.50 (test code = 1066) PERFORMED K/UL ABSOLUTE LYMPHOCYTES TEST NOT 1.00-4.00 (test code = 1067) PERFORMED K/UL ABSOLUTE MONOCYTES TEST NOT 0.20-1.00 (test code = 1068) PERFORMED K/UL ABSOLUTE EOSINOPHILS TEST NOT 0.00-0.50 (test code = 1040) PERFORMED K/UL ABSOLUTE BASOPHILS TEST NOT 0.00-0.20 (test code = 1069) PERFORMED K/UL ABS IMMATURE TEST NOT 0.00-0.10 GRANULOCYTES (test PERFORMED K/UL code = 1020) ABS NUCLEATED RBCS TEST NOT 0.00-0.11 (test code = 52477) PERFORMED K/UL COMMENTS (test code = TEST NOT 1016) PERFORMED CBC W/AUTO [id number] 00:00:00 Test Item Value Reference Range Interpretation Comments WBC (test code = 1001) TEST NOT PERFORMED K/UL RBC (test code = 1002) TEST NOT PERFORMED M/UL HEMOGLOBIN (test code = TEST NOT PERFORMED 1003) G/DL HEMATOCRIT (test code = TEST NOT PERFORMED % 1004) MCV (test code = 1005) TEST NOT PERFORMED fL MCH (test code = 1006) TEST NOT PERFORMED PG MCHC (test code = 1007) TEST NOT PERFORMED G/DL RDW (test code = 1038) TEST NOT PERFORMED % NEUTROPHILS (test code = TEST NOT PERFORMED % 1008) BANDS (test code = 1009) TEST NOT PERFORMED % LYMPHOCYTES (test code = TEST NOT PERFORMED % 1010) MONOCYTES (test code = TEST NOT PERFORMED % 1011) EOSINOPHILS (test code = TEST NOT PERFORMED % 1012) BASOPHILS (test code = TEST NOT PERFORMED % 1013) IMMATURE GRANULOCYTES TEST NOT PERFORMED % (test code = 1036) METAMYELOCYTES (test code TEST NOT PERFORMED % = 1061) MYELOCYTES (test code = TEST NOT PERFORMED % 1062) PROMYELOCYTES (test code TEST NOT PERFORMED % = 1063) BLASTS (test code = 1064) TEST NOT PERFORMED % NUCLEATED RBCS (test code TEST NOT PERFORMED = 1065) /100WBC'S PLATELET COUNT (test code TEST NOT PERFORMED = 1015) K/UL ABSOLUTE NEUTROPHILS TEST NOT PERFORMED (test code = 1066) K/UL ABSOLUTE LYMPHOCYTES TEST NOT PERFORMED (test code = 1067) K/UL ABSOLUTE MONOCYTES (test TEST NOT PERFORMED code = 1068) K/UL ABSOLUTE EOSINOPHILS TEST NOT PERFORMED (test code = 1040) K/UL ABSOLUTE BASOPHILS (test TEST NOT PERFORMED code = 1069) K/UL ABS IMMATURE GRANULOCYTES TEST NOT PERFORMED (test code = 1020) K/UL ABS NUCLEATED RBCS (test TEST NOT PERFORMED code = 85561) K/UL COMMENTS (test code = TEST NOT PERFORMED 1016) CBC W/AUTO [id number] 00:00:00 Test Item Value Reference Range Interpretation Comments WBC (test code = 1001) TEST NOT PERFORMED K/UL RBC (test code = 1002) TEST NOT PERFORMED M/UL HEMOGLOBIN (test code = TEST NOT PERFORMED 1003) G/DL HEMATOCRIT (test code = TEST NOT PERFORMED % 1004) MCV (test code = 1005) TEST NOT PERFORMED fL MCH (test code = 1006) TEST NOT PERFORMED PG MCHC (test code = 1007) TEST NOT PERFORMED G/DL RDW (test code = 1038) TEST NOT PERFORMED % NEUTROPHILS (test code = TEST NOT PERFORMED % 1008) BANDS (test code = 1009) TEST NOT PERFORMED % LYMPHOCYTES (test code = TEST NOT PERFORMED % 1010) MONOCYTES (test code = TEST NOT PERFORMED % 1011) EOSINOPHILS (test code = TEST NOT PERFORMED % 1012) BASOPHILS (test code = TEST NOT PERFORMED % 1013) IMMATURE GRANULOCYTES TEST NOT PERFORMED % (test code = 1036) METAMYELOCYTES (test code TEST NOT PERFORMED % = 1061) MYELOCYTES (test code = TEST NOT PERFORMED % 1062) PROMYELOCYTES (test code TEST NOT PERFORMED % = 1063) BLASTS (test code = 1064) TEST NOT PERFORMED % NUCLEATED RBCS (test code TEST NOT PERFORMED = 1065) /100WBC'S PLATELET COUNT (test code TEST NOT PERFORMED = 1015) K/UL ABSOLUTE NEUTROPHILS TEST NOT PERFORMED (test code = 1066) K/UL ABSOLUTE LYMPHOCYTES TEST NOT PERFORMED (test code = 1067) K/UL ABSOLUTE MONOCYTES (test TEST NOT PERFORMED code = 1068) K/UL ABSOLUTE EOSINOPHILS TEST NOT PERFORMED (test code = 1040) K/UL ABSOLUTE BASOPHILS (test TEST NOT PERFORMED code = 1069) K/UL ABS IMMATURE GRANULOCYTES TEST NOT PERFORMED (test code = 1020) K/UL ABS NUCLEATED RBCS (test TEST NOT PERFORMED code = 76533) K/UL COMMENTS (test code = TEST NOT PERFORMED 1016) TSH, THIRD [id number] 06:29:33 Test Item Value Reference Range Interpretation Comments TSH, THIRD 7.090 UIU/ML 0.400-4.100 H UNLESS OTHERWI SE GENERATION (test INDICATED, ALL TESTING code = 2829) PERFORMED [facility], [facility]. [address] [place], [place] [id number] [place] [address] DIRECTOR: EDVNI BENSON M.D. CLIA NUMBER [id number] CAP ACCREDITATION N O. [id number] LIPID [id number] 04:58:53 Test Item Value Reference Range Interpretation Comments CHOLESTEROL (test 235 MG/DL <200 H code = 2210) TRIGLYCERIDES (test 127 MG/DL <150 code = 2232) HDL CHOLESTEROL (test 46 MG/DL >39 code = 2220) CALC LDL CHOL (test 164 MG/DL <100 H NOTE: C ALCULATED LDL code = 2237) IS BASED ON MARGARITA-CRUM METHOD WHICHINCLUDES ADJUSTABLE TRIGLYCERIDE:VL DL CHOLESTEROL RAT IO.THIS FACTOR VARIES B Y MEASURED TRIGLY CERIDE AND NON-HDLCHOL ESTEROL CONCENTRATIONS WITH INCREASED CALCU LATED LDL SEENIN HIGH ER TRIGLYCERIDE OR LOWER NON-HDL SPECIME NS. FOR MOREINFORMATION , SEE CLIENT ANNOUNCE MENT AT [email or web address] RISK RATIO LDL/HDL 3.57 RATIO <3.22 H (test code = 2238) COMPREHENSIVE METABOLIC [id number] 04:58:53 Test Item Value Reference Range Interpretation Comments GLUCOSE (test code = 85 MG/DL 70-99 2216) BUN (test code = 12 MG/DL 01-30) CREATININE (test 0.59 MG/DL 0.60-1.30 L code = 2214) eGFR (2020 CKD-EPI) 123 >60 (test code = 72843) ML/MIN/1.73 CALC BUN/CREAT (test 20 RATIO - code = 2235) SODIUM (test code = 141 MEQ/L 536-643 3318) POTASSIUM (test code 4.5 MEQ/L 3.5-5.4 = 2227) CHLORIDE (test code 103 MEQ/L 95-107 = 2215) CARBON DIOXIDE (test 25 MEQ/L 19-31 code = 2206) CALCIUM (test code = 9.3 MG/DL 8.5-10.5 2208) PROTEIN, TOTAL (test 6.6 G/DL 6.1-8.3 code = 2229) ALBUMIN (test code = 4.2 G/DL 3.5-5.2 2200) CALC GLOBULIN (test 2.4 G/DL 1.9-3.7 code = 2240) CALC A/G RATIO (test 1.8 RATIO 1.0-2.6 code = 2234) BILIRUBIN, TOTAL <0.2 MG/DL See_Comment [Automated message] (test code = 220) The syste m which generated this result transmit kenzie reference range : <=1.2. The refe rence range was not u sed to interpret th is result as normal/abnormal . ALKALINE PHOSPHATASE 89 U/L 40-114 (test code = 220) AST (test code = 12 U/L 9-40 2217) ALT (test code = 16 U/L 5-40 2218) LIPID [id number] 00:00:00 Test Item Value Reference Range Interpretation Comments CHOLESTEROL (test code = 2210) 235 MG/DL TRIGLYCERIDES (test code = 2232) 127 MG/DL HDL CHOLESTEROL (test code = 2220) 46 MG/DL CALC LDL CHOL (test code = 2237) 164 MG/DL RISK RATIO LDL/HDL (test code = 3.57 RATIO 2238) COMPREHENSIVE METABOLIC [id number] 00:00:00 Test Item Value Reference Range Interpretation Comments GLUCOSE (test code = 2217) 85 MG/DL BUN (test code = 2208) 12 MG/DL CREATININE (test code = 2214) 0.59 MG/DL eGFR (2020 CKD-EPI) (test 123 ML/MIN/1.73 code = 84679) CALC BUN/CREAT (test code = 20 RATIO 2235) SODIUM (test code = 2231) 141 MEQ/L POTASSIUM (test code = 2228) 4.5 MEQ/L CHLORIDE (test code = 2215) 103 MEQ/L CARBON DIOXIDE (test code = 25 MEQ/L 2205) CALCIUM (test code = 2209) 9.3 MG/DL PROTEIN, TOTAL (test code = 6.6 G/DL 2228) ALBUMIN (test code = 220) 4.2 G/DL CALC GLOBULIN (test code = 2.4 G/DL 2239) CALC A/G RATIO (test code = 1.8 RATIO 2233) BILIRUBIN, TOTAL (test code = <0.2 MG/DL 2207) ALKALINE PHOSPHATASE (test 89 U/L code = 2204) AST (test code = 2218) 12 U/L ALT (test code = 2219) 16 U/L [id number] 00:00:00 Test Item Value Reference Range Interpretation Comments TSH, THIRD GENERATION (test code 7.090 UIU/ML = 2821) [id number] 00:00:00 Test Item Value Reference Range Interpretation Comments TSH, THIRD GENERATION (test code 7.090 UIU/ML = 2821) TROPONIN [id number] 21:03:34 Test Item Value Reference Interpretation Comments Range TROPONIN I (test 0.000 ng/mL See_Comment [Automated code = [id number]) message] The system which generated this result transmitted reference range : <=0.034. The reference range was not used to interpret this result as normal/abnormal . MACI (test code = Reference (Normal) MACI) Range (defined by the 99th percentile reference limit): <= 0.034 ng/mL Note: Cardiac troponin begins to rise 3-4 hours after the onset of ischemia. Repeat in 4-6 hours if the sample was drawn within 3-4 hours of the onset of the symptom and found normal. Diagnosis of myocardial injury is made with acute changes in cTn concentrations with at least one serial sample above the 99th percentile upper reference limit (URL), taken together with the patient's clinical presentation. Biotin has been reported to cause a negative bias, interpret results relative to patient's use of biotin. Lab Interpretation Normal (test code = 83381-7) [id number] 20:45:29 Test Item Value Reference Interpretation Comments Range D-DIMER (test code = See_Comment [Autom ated [id number]) message] The system which generated this result transmitted reference range : <0.41 ?g/mL (FEU). The reference range was not used to interpret this result as normal/abnormal . MACI (test code = This test may be MACI) used in conjunction with a clinical pretest probability (PTP) assessment model to exclude venous thromboembolism (VTE) in patients suspected of deep venous thrombosis (DVT) and pulmonary embolism (PE) A D-Dimer value less than 0.50 ?g/ml (FEU) has a negative predicative value of 96 to 100% (95% CI)and 97 to 100% (95% CI) as an aid in the diagnosis of deep vein thrombosis (DVT) and pulmonary embolism when there is low or moderate pretest probability of PE or DVT. D-Dimer values are expressed in initial fibrinogen equivalent units (FEU)" The assay results should be used with other information, including the clinical context, in forming a diagnosis. Lab Interpretation Normal (test code = 72998-1) [facility] WITH [id number] 19:14:30 Test Item Value Reference Range Interpretation Comments WBC (test code = See_Comment [Automated 1290-2) message] The sy stem which generated this result transmitted reference range : 4.30 - 11.10 10*3/?L. The reference range was not used to interpret this result as normal/abnormal . RBC (test code = See_Comment [Automated 789-8) message] The sy stem which generated this result transmitted reference range : 3.93 - 5.25 10*6/?L. The reference range was not used to interpret this result as normal/abnormal . HGB (test code = 13.5 g/dL 11.6-15.0 718-7) HCT (test code = 42.0 % 35.7-45.2 4544-3) MCV (test code = 88.1 fL 80.6-95.5 787-2) MCH (test code = 28.3 pg 25.9-32.8 785-6) MCHC (test code = 32.1 g/dL 31.6-35.1 786-4) RDW-SD (test code = 42.2 fL 39.0-49.9 32260-7) RDW-CV (test code = 13.1 % 12.0-15.5 788-0) PLT (test code = See_Comment [Automated 777-3) message] The sy stem which generated this result transmitted reference range : 166 - 358 10*3/ ?L. The reference r ana laura was not used to interpret this result as normal/abnormal . MPV (test code = 9.6 fL 9.5-12.9 52654-3) NRBC/100 WBC (test See_Comment [Automat ed code = 4029233397) message] The system which generated this result transmitted reference range : 0.0 - 10.0 /100 WBCs. The refer ence range was not u sed to interpret th is result as normal/abnormal . NRBC x10^3 (test code <0.01 See_Comment [Auto mated = 8806216661) message] The s Ver[employer] which generated this result transmitted reference range : 10*3/?L. The reference range was not used to interpret this result as normal/abnormal . GRAN MAT (NEUT) % 43.7 % (test code = 770-8) IMM GRAN % (test code 0.50 % = 4634526285) LYMPH % (test code = 46.2 % 736-9) MONO % (test code = 6.2 % 5905-5) EOS % (test code = 2.8 % 713-8) BASO % (test code = 0.6 % 706-2) GRAN MAT x10^3(ANC) 4.77 10*3/uL 1.88-7.09 (test code = 9403831381) IMM GRAN x10^3 (test 0.05 10*3/uL 0.00-0.06 code = 9970259427) LYMPH x10^3 (test code 5.05 10*3/uL 1.32-3.29 H = 731-0) MONO x10^3 (test code 0.68 10*3/uL 0.33-0.92 = 742-7) EOS x10^3 (test code = 0.31 10*3/uL 0.03-0.39 711-2) BASO x10^3 (test code 0.07 10*3/uL 0.01-0.07 = 704-7) Lab Interpretation Abnormal (test code = 63058-6) [id number]:39[facility]27 Test Item Value Reference Interpretation Comments Range TROPONIN I (test 0.001 ng/mL See_Comment [Automated code = 1364690742) message] The system which generated this result transmitted reference range : <=0.034. The reference range was not used to interpret this result as normal/abnormal . MACI (test code = Reference (Normal) MACI) Range (defined by the 99th percentile reference limit): <= 0.034 ng/mL Note: Cardiac troponin begins to rise 3-4 hours after the onset of ischemia. Repeat in 4-6 hours if the sample was drawn within 3-4 hours of the onset of the symptom and found normal. Diagnosis of myocardial injury is made with acute changes in cTn concentrations with at least one serial sample above the 99th percentile upper reference limit (URL), taken together with the patient's clinical presentation. Biotin has been reported to cause a negative bias, interpret results relative to patient's use of biotin. Lab Interpretation Normal (test code = 54842-8) [facility]. METABOLIC PANEL ([id number])2021-07-27 18:29:25 Test Item Value Reference Range Interpretation Comments NA (test code = 137 mmol/L 135-145 2286358759) K (test code = 4.5 mmol/L 3.5-5.0 3735424599) CL (test code = 104 mmol/L 98-108 8263312753) CO2 TOTAL (test code 26 mmol/L 23-31 = 6940603938) AGAP (test code = 2-16 5796426254) BUN (test code = 10 mg/dL 7-23 6453204851) GLUCOSE (test code = 87 mg/dL 70-110 0151932069) CREATININE (test code 0.59 mg/dL 0.50-1.04 = 3088050350) TOTAL BILI (test code 0.4 mg/dL 0.1-1.1 = 3673783383) CALCIUM (test code = 9.6 mg/dL 8.6-10.6 3091974702) T PROTEIN (test code 7.1 g/dL 6.3-8.2 = 8795996071) ALBUMIN (test code = 4.2 g/dL 3.5-5.0 3072697704) ALK PHOS (test code = 88 U/L 34-122 0391233969) ALTv (test code = 22 U/L 5-35 1742-6) AST(SGOT) (test code 25 U/L 13-40 = 2013058912) eGFR (test code = mL/min/1.73m2 2011006884) MACI (test code = MACI) Association of Glomerular Filtration Rate (GFR) and Staging of Kidney Disease* + + +- +| GFR (mL/min/1.73 m2) ?| With Kidney Damage ?| ?Without Kidney Damage+ ------+ ----+ ------+| ?>90 ?| ?Stage one ?| ? Normal ?+ -+ + -+| ?60-89 ?| ?Stage two ?| ? Decreased GFR ? + + +- +| ?30-59 ?| ?Stage three ?| ? Stage three ? + + +- +| ?15-29 ?| ?Stage four ? | ? Stage four ?+ -+ + -+| ?<15 (or dialysis) ? ?| ?Stage five ? | ? Stage five ?+ -+ + -+ *Each stage assumes the associated GFR level has been in effect for at least three months. ?Stages 1 to 5, with or without kidney disease, indicate chronic kidney disease. Notes: Determination of stages one and two (with eGFR >59mL/min/1.73 m2) requires estimation of kidney damage for at least three months as defined by structural or functional abnormalities of the kidney, manifested by either:Pathological abnormalities or Markers of kidney damage (including abnormalities in the composition of the blood or urine or abnormalities in imaging tests). [facility] Test Item Value Reference Range Interpretation Comments MAGNESIUM (test code = 2716524323) 1.8 mg/dL 1.7-2.4 Lab Interpretation (test code = Normal 89628-6) [facility] [id number] 18:28:00 Test Item Value Reference Range Interpretation Comments POCT PREG (test code = 1605) negative POCT PREG LOT # (test code = 3575) [id number] POCT PREG TEST DATE (test 2022-09-12 code = 3576) Lab Interpretation (test code = Normal 68735-8) [facility] [id number] 19:26:00 Test Item Value Reference Range Interpretation Comments POCT PREG (test code = 1605) Negative On board controls acceptable with C Yes Line (test code = 3574) POCT PREG LOT # (test code = 3575) POCT PREG TEST DATE (test code = 3576) Lab Interpretation (test code = Normal 88181-2) [facility] [id number] 19:26:00 Test Item Value Reference Range Interpretation Comments POCT PREG (test code = 1605) Negative On board controls acceptable with C Yes Line (test code = 3574) POCT PREG LOT # (test code = 3575) POCT PREG TEST DATE (test code = 3576) Lab Interpretation (test code = Normal 51958-7) [facility] [id number] 19:26:00 Test Item Value Reference Range Interpretation Comments POCT PREG (test code = 1605) Negative On board controls acceptable with C Yes Line (test code = 3574) POCT PREG LOT # (test code = 3575) POCT PREG TEST DATE (test code = 3576) Lab Interpretation (test code = Normal 99613-2) [facility] (COVID-19) by RT-PCR (HIGH RISK) 2020-12-15 00:00:00 Test Item Value Reference Range Interpretation Comments SARS-CoV-2 INTERPRETATION (test NEGATIVE code = 04217) SOURCE (test code = 14794) NOT SPECIFIED POCT [id number] 20:47:00 Test Item Value Reference Range Interpretation Comments POCT PREG (test code = 1605) Negative On board controls acceptable with C Yes Line (test code = 3574) POCT PREG LOT # (test code = 3575) POCT PREG TEST DATE (test code = 3576) Lab Interpretation (test code = Normal 76344-7) [facility] [id number] 20:47:00 Test Item Value Reference Range Interpretation Comments POCT PREG (test code = 1605) Negative On board controls acceptable with C Yes Line (test code = 3574) POCT PREG LOT # (test code = 3575) POCT PREG TEST DATE (test code = 3576) Lab Interpretation (test code = Normal 18649-8) [facility] AND CHLAMYDIA AMPLIFIED, [id number] 00:00:00 Test Item Value Reference Range Interpretation Comments GONORRHEA, TMA (test code = 88180) NEGATIVE CHLAMYDIA, TMA (test code = 67121) NEGATIVE HIV AB/AG COMBO RFLX [id number] 00:00:00 Test Item Value Reference Range Interpretation Comments HIV 1/2 4TH GEN, RFLX CONF (test NON-REACTIVE code = 3514) ACUTE HEPATITIS [id number] 00:00:00 Test Item Value Reference Range Interpretation Comments HEPATITIS A IgM (test code = NON-REACTIVE 26696) HEPATITIS B CORE IgM (test code NON-REACTIVE = 4644) HEPATITIS B SURF AG (test code = NON-REACTIVE 3409) HEPATITIS C ANTIBODY (test code NON-REACTIVE = 9954) INTERPRETATION HEPATITIS A: (NOTE) (test code = 2552) INTERPRETATION HEPATITIS B: (NOTE) (test code = 58065) INTERPRETATION HEPATITIS C: (NOTE) (test code = 90925) PAP TEST, THINPREP, [id number] 00:00:00 Test Item Value Reference Range Interpretation Comments SOURCE: (test code = Endocervical 8001) SLIDES: (test code = 1 8011) LMP: (test code = 10/2020 8021) SPECIMEN ADEQUACY: (NOTE) (test code = 59181) INTERPRETATION: (test NILM/NO EPITH. code = 93540) ABNORMALITY;SEE BELOW ASSISTANT PROFESSOR OF CHEMISTRY: RANJEET Riley(ASCP)IAC (test code = 8101) LOCATION: (test code (NOTE) = 03999) CPT: (test code = (NOTE) 8140) HPV HIGH RISK WITH GENOTYPE, [id number] 00:00:00 Test Item Value Reference Range Interpretation Comments HPV HIGH RISK INTERP (test code = NEGATIVE 48188) HPV 16 (test code = 74777) NEGATIVE HPV 18 (test code = 56756) NEGATIVE HPV, HR, OTHER GENOTYPES (test code NEGATIVE = 57552) [id number] 00:00:00 Test Item Value Reference Range Interpretation Comments RPR RESULT (test code = NON-REACTIVE 3501) RPR TITER (test code = 3500) NOT INDIC. TITER [id number] 00:00:00 Test Item Value Reference Range Interpretation Comments RPR RESULT (test code = NON-REACTIVE 3501) RPR TITER (test code = 3500) NOT INDIC. TITER VAGINAL PATHOGENS DNA [id number] 00:00:00 Test Item Value Reference Range Interpretation Comments ANNE MARIE SPECIES (test code = ) NEGATIVE G. VAGINALIS (test code = ) NEGATIVE T. VAGINALIS (test code = ) NEGATIVE
[2022-04-23] MEDS ORDERED: IBUPROFEN 400 MG TAB ONE (15:23)
[2022-04-23] MEDS ORDERED: CYCLOBENZAPRINE 10 MG TAB ONE (15:23)
[2022-04-23 15:30] LABS: Urine Blood Negative (Negative); Urine Glucose Negative (Negative); Urine Protein Negative (Negative); Urine Specific Gravity >=1.030 (1.005-1.030); Urine pH 5.5 (5.0-7.0)
--- NOTE | 2022-04-23 15:35 | ER ---
Nurse's Notes [facility] Name: Claudine Morales Age: 31 yrs Sex: Female : 1990 Arrival Date: 04/23/2022 Time: 14:16 Bed 10 Private MD: Diagnosis: Low back pain Presentation: 04/23 14:43 Chief complaint: Patient states: Low back pain x 1 week, denies symptoms. ss Coronavirus screen: Vaccine status: Patient reports receiving the 2nd dose of the covid vaccine. At this time, the client does not indicate any symptoms associated with coronavirus-19. Ebola Screen: No symptoms or risks identified at this time. Initial Sepsis Screen: Does the patient meet any 2 criteria? No. Patient's initial sepsis screen is negative. Does the patient have a suspected source of infection? No. Patient's initial sepsis screen is negative. Risk Assessment: Do you want to hurt yourself or someone else? Patient reports no desire to harm self or others. Onset of symptoms was April 18, 2022. 14:43 Method Of Arrival: Ambulatory 14:43 Acuity: VANDANA 4 Triage Assessment: 14:46 General: Appears in no apparent distress. uncomfortable, Behavior is calm, cooperative, ss appropriate for age. Pain: Complains of pain in low back area Pain currently is 6 out of 10 on a pain scale. Musculoskeletal: Swelling absent. 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 - Social history:: Smoking status: Patient denies any tobacco usage or history of. Patient uses street drugs, THC Vape . Screenin:24 Abuse screen: Denies threats or abuse. Denies injuries from another. Nutritional hb screening: No deficits noted. Tuberculosis screening: No symptoms or risk factors identified. Fall Risk None identified. Assessment: 15:24 General: Appears in no apparent distress. Behavior is calm, cooperative. Pain: Pain hb currently is 6 out of 10 on a pain scale. Neuro: Level of Consciousness is awake, alert, obeys commands, Oriented to person, place, time, situation. Cardiovascular: Patient's skin is warm and dry. Respiratory: Respiratory effort is even, unlabored, Respiratory pattern is regular, symmetrical. GI: No signs and/or symptoms were reported involving the gastrointestinal system. : No signs and/or symptoms were reported regarding the genitourinary system. EENT: No signs and/or symptoms were reported regarding the EENT system. Derm: Skin is pink, warm \T\ dry. Musculoskeletal: Reports low back pain. Vital Signs: 14:43 BP 114 / 75; Pulse 97; Resp 19; Temp 97; Pulse Ox 97% ; Weight 127.01 kg; Height 4 ft. ss 10 in. (147.32 cm); Pain 6/10; 14:43 Body Mass Index 58.52 (127.01 kg, 147.32 cm) ss ED Course: 14:16 Patient arrived in ED. mr 14:35 [facility] jl9 14:35 Alvin Kesy MD is Attending Physician. jl9 14:46 Triage completed. ss 14:46 Arm band placed on right wrist. ss 14:52 Myriam Mera, RN is Primary Nurse. hb 15:24 Patient has correct armband on for positive identification. hb 15:54 No provider procedures requiring assistance completed. Patient did not have IV access hb during this emergency room visit. Administered Medications: 15:15 Drug: Ibuprofen 800 mg Route: PO; hb 15:54 Follow up: Response: No adverse reaction hb 15:15 Drug: Cyclobenzaprine 10 mg Route: PO; hb 15:54 Follow up: Response: No adverse reaction hb 15:53 Drug: HYDROcodone-acetaminophen 5 mg-325 mg 1 tabs Route: PO; hb 15:54 Follow up: Response: Medication administered at discharge. hb 15:53 Drug: Ondansetron 4 mg Route: PO; hb 15:53 Follow up: Response: Medication administered at discharge. hb Medication: 15:24 VIS not applicable for this client. hb Outcome: 15:35 Discharge ordered by MD. mohr 15:54 Discharged to home ambulatory, with significant other. 15:54 Condition: stable 15:54 Discharge instructions given to patient, Instructed on discharge instructions, follow up and referral plans. medication usage, Demonstrated understanding of instructions, follow-up care, medications, Prescriptions given X 2. 15:54 Patient left the ED. Signatures: Latonya Zaidi Shelby, RN RN ss Baxter, Heather, RN RN hb Linares, John jl9
--- NOTE | 2022-04-23 15:35 | EDPHYS ---
Physician Documentation [facility] Name: Claudine Morales Age: 31 yrs Sex: Female : 1990 Arrival Date: 04/23/2022 Time: 14:16 Bed 10 Private MD: JESUS Physician Alvin Keys HPI: 04/23 15:32 This 31 yrs old Female presents to ER via Ambulatory with complaints of low jl9 back pain x1 week, worsening in the morning. Patient reports lifting furniture last week. . 15:32 The patient presents with pain and spasm, stiffness, tightness. The symptoms are jl9 located in the low back. Onset: The symptoms/episode began/occurred 1 week(s) ago. The pain does not radiate. Associated signs and symptoms: The patient has no apparent associated signs or symptoms. The problem was sustained when lifting furniture. Modifying factors: The patient symptoms are alleviated by remaining still, the patient symptoms are aggravated by bending, movement. Severity of symptoms: in the emergency department the symptoms a " 3" out of "10". 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 - Social history:: Smoking status: Patient denies any tobacco usage or history of. Patient uses street drugs, THC Vape . ROS: 15:33 Constitutional: Negative for fever, chills, and weight loss, Eyes: Negative for injury, jl9 pain, redness, and discharge, ENT: Negative for injury, pain, and discharge, Neck: Negative for injury, pain, and swelling, Cardiovascular: Negative for chest pain, palpitations, and edema, Respiratory: Negative for shortness of breath, cough, wheezing, and pleuritic chest pain, Abdomen/GI: Negative for abdominal pain, nausea, vomiting, diarrhea, and constipation. 15:33 : Negative for injury, bleeding, discharge, and swelling, MS/Extremity: Negative for injury and deformity, Skin: Negative for injury, rash, and discoloration, Neuro: Negative for headache, weakness, numbness, tingling, and seizure, Psych: Negative for depression, anxiety, suicide ideation, homicidal ideation, and hallucinations, Allergy/Immunology: Negative for hives, rash, and allergies, Endocrine: Negative for neck swelling, polydipsia, polyuria, polyphagia, and marked weight changes, Hematologic/Lymphatic: Negative for swollen nodes, abnormal bleeding, and unusual bruising. 15:33 Back: Positive for pain with movement. Exam: 15:34 Constitutional: This is a well developed, well nourished patient who is awake, alert, jl9 and in no acute distress. Head/Face: Normocephalic, atraumatic. Eyes: Pupils equal round and reactive to light, extra-ocular motions intact. Lids and lashes normal. Conjunctiva and sclera are non-icteric and not injected. Cornea within normal limits. Periorbital areas with no swelling, redness, or edema. ENT: Mucous membranes moist. Neck: Trachea midline, no thyromegaly or masses palpated, and no cervical lymphadenopathy. Supple, full range of motion without nuchal rigidity, or vertebral point tenderness. No Meningismus. Chest/axilla: Normal chest wall appearance and motion. Nontender with no deformity. No lesions are appreciated. Cardiovascular: Regular rate and rhythm with a normal S1 and S2. No gallops, murmurs, or rubs. Normal PMI, no JVD. No pulse deficits. Respiratory: Lungs have equal breath sounds bilaterally, clear to auscultation and percussion. No rales, rhonchi or wheezes noted. No increased work of breathing, no retractions or nasal flaring. Abdomen/GI: Soft, non-tender, with normal bowel sounds. No distension or tympany. No guarding or rebound. No evidence of tenderness throughout. 15:34 Skin: Warm, dry with normal turgor. Normal color with no rashes, no lesions, and no evidence of cellulitis. MS/ Extremity: Pulses equal, no cyanosis. Neurovascular intact. Full, normal range of motion. Neuro: Awake and alert, GCS 15, oriented to person, place, time, and situation. Cranial nerves II-XII grossly intact. Motor strength 5/5 in all extremities. Sensory grossly intact. Cerebellar exam normal. Normal gait. Psych: Awake, alert, with orientation to person, place and time. Behavior, mood, and affect are within normal limits. 15:34 Back: pain, that is moderate, of the lumbar area, ROM is normal spinal alignment noted, CVA tenderness, is absent, muscle spasm, is appreciated in the lumbar area. Vital Signs: 14:43 BP 114 / 75; Pulse 97; Resp 19; Temp 97; Pulse Ox 97% ; Weight 127.01 kg; Height 4 ft. ss 10 in. (147.32 cm); Pain 6/10; 14:43 Body Mass Index 58.52 (127.01 kg, 147.32 cm) ss MDM: 14:35 Patient medically screened. [facility] 15:34 Data reviewed: vital signs, nurses notes. Counseling: I had a detailed discussion with [facility] the patient and/or guardian regarding: the historical points, exam findings, and any diagnostic results supporting the discharge/admit diagnosis, the need for outpatient follow up, to return to the emergency department if symptoms worsen or persist or if there are any questions or concerns that arise at home. 04/23 15:31 Order name: Urine Dipstick-Ancillary; Complete Time: 15:32 [facility] 04/23 15:02 Order name: Urine Dipstick-Ancillary (obtain specimen); Complete Time: 15:30 [facility] Administered Medications: 15:15 Drug: Ibuprofen 800 mg Route: PO; hb 15:54 Follow up: Response: No adverse reaction hb 15:15 Drug: Cyclobenzaprine 10 mg Route: PO; hb 15:54 Follow up: Response: No adverse reaction hb 15:53 Drug: HYDROcodone-acetaminophen 5 mg-325 mg 1 tabs Route: PO; hb 15:54 Follow up: Response: Medication administered at discharge. hb 15:53 Drug: Ondansetron 4 mg Route: PO; hb 15:53 Follow up: Response: Medication administered at discharge. hb Disposition Summary: 04/23/22 15:35 Discharge Ordered Location: Home [facility] Condition: Stable 9 Diagnosis - Low back pain 9 Followup: jl9 - With: Private Physician - When: 1 - 2 days - Reason: Recheck today's complaints, Continuance of care, Re-evaluation by your physician Discharge Instructions: - Discharge Summary Sheet jl9 - Acute Back Pain, Adult jl9 Forms: - Medication Reconciliation Form jl9 - Thank You Letter jl9 - Antibiotic Education jl9 - Prescription Opioid Use jl9 Prescriptions: - Ibuprofen 800 mg Oral Tablet - take 1 tablet by ORAL route every 8 hours As needed take with food; 30 tablet; jl9 Refills: 0, Product Selection Permitted - Cyclobenzaprine 10 mg Oral Tablet - take 1 tablet by ORAL route every 8 hours As needed; 30 tablet; Refills: 0, jl9 Product Selection Permitted Signatures: Stella Wing RN RN Myriam Fernández RN RN Lucas Gross jl9
[2022-04-23] MEDS ORDERED: HYDROCODONE/APAP 5/325 MG TAB ONE (15:59)
[2022-04-23] MEDS ORDERED: ONDANSETRON 4 MG (ODT) TAB ONE (15:59)
[2022-04-23 16:25] VITALS: BP 114/75; TEMP 97; O2SAT 97
== END 2022-04-23 15:54 | disposition home or self-care (01) ==
LOC: ER 14:14
DX: M54.50 Low back pain, unspecified (principal); I10 Essential (primary) hypertension; E03.9 Hypothyroidism, unspecified; Z88.8 Allergy status to other drugs, medicaments and biological substances
CPT/HCPCS: 81003; 99283; Q0162

== ENCOUNTER 2022-10-20 14:36 | Emergency (ER) | payer OTHER, SELFPAY ==
--- OUTSIDE RECORDS SUMMARY | 2022-10-20 14:47 | XMS REPORT | Continuity of Care Document ---
:1990 Author Organization [facility] t Address [address] [place] [address]. [address] [place] [address] Care Team Providers Name Role Phone JOSEMARGIE Primary Care Physician Unavailable Yamil PHOENIX Attending Clinician Unavailable Yamil Monroy Attending Clinician YOON PAGE Attending Clinician Unavailable Yoon Page MD Attending Clinician Doctor Unassigned, [place] Attending Clinician Unavailable Pgy[facility] Attending Clinician Unavailable Marques Mansfield MD Attending Clinician [facility] Resident Attending Clinician Unavailable Aracely Villanueva MD Attending Clinician Dena Santos MD Attending Clinician [phone] Jeanette Henley MD Attending Clinician JEANETTE HENLEY Attending Clinician Unavailable BEBE GABRIEL Attending Clinician Unavailable Yamil PHOENIX Admitting Clinician Unavailable YOON PAGE Admitting Clinician Unavailable Payers Payer Name Policy Type Policy Number Effective Date Expiration Date S ource [employer] [place] [id number] 2021 00:00:00 WOMEN Problems Condition Condition Condition Status Onset Resolution Last Treating Co mments Source Name Details Category Date Date Treatment Clinician Date No known No known Disease Unive rs active active ity of problems problems [facility] Allergies, Adverse Reactions, Alerts Allergy Allergy Status Severity Reaction(s) Onset Inactive Treating Comm ents Source Name Type Date Date Clinician Alicia Carrasco Active - Oral ty to 8-25 adverse 00:00: reaction 00 to drug NO KNOWN Drug Active Univers ALLERGIE Class ity of S [facility] Social History Social Habit Start Date Stop Date Quantity Comments Source Exposure to Not sure [facility] SARS-CoV-2 (event) Medica l Branch Alcohol intake 2021-06-24 2021-06-24 [facility] 00:00:00 00:00:00 [facility] Sex Ass[birth year] At [birth year] [facility] 00:00:00 00:00:00 [facility] Smoking Status Start Date Stop Date Source Unknown if ever smoked [facility] Medications Ordered Filled Start Stop Current Ordering Indication Dosage Frequency Signature Comments Components Source Medication Medication Date Date Medication? Clinician (SIG) Name Name TAKE 2021-08 No 100 TABLET AT 2-22 BEDTIME. 00:00: 00 TAKE 2021-08 No 300 TABLET 2-22 TWICE 00:00: DAILY. 00 TAKE 2021-08 No 300 TABLET 2-22 EVERY 00:00: MORNING. 00 TAKE 2021-08 No 25 TABLET 2-21 DAILY. 00:00: 00 CHLORTHALID 2021-08 No 25 ONE 25 MG 2-21 00:00: 00 TAKE 2021-08 No TABLET 2-15 TWICE 00:00: DAILY. 00 TAKE 2021-08 No TABLET 3 2-15 TIMES 00:00: DAILY. 00 TAKE 2021-08 No TABLET 2-15 DAILY. 00:00: 00 TAKE 2021-08 No TABLET AT 2-15 BEDTIME. 00:00: 00 Dose 2021-08 No Unknown 2-15 00:00: 00 Dose 2021-08 No Unknown 2-15 00:00: 00 Dose 2021-08 No Unknown 2-15 00:00: 00 Dose 2021-08 No Unknown 2-15 00:00: 00 TAKE 2021-08 No TABLET BY 2-15 MOUTH EVERY 00:00: 8 HOURS 00 NEEDED FOR MUSCLE SPASMS Dose 2021-08 No Unknown 2-15 00:00: 00 Dose 2021-08 No Unknown 2-15 00:00: 00 Dose 2021-08 No Unknown 2-15 00:00: 00 Dose 2021-08 No Unknown 2-15 00:00: 00 Dose 2021-08 No Unknown 2-15 00:00: 00 Dose 2022-1 No Unknown 2-15 00:00: 00 Dose 2-1 No Unknown 2-15 00:00: 00 Dose 2021-1 No Unknown 2-15 00:00: 00 Dose 2021-1 No Unknown 2-15 00:00: 00 Dose 2021-1 No Unknown 2-15 00:00: 00 Dose 2021-1 No Unknown 2-15 00:00: 00 Dose 2021-1 No Unknown 2-15 00:00: 00 Dose 2021-1 No Unknown 2-15 00:00: 00 Dose 2021-1 No Unknown 2-15 00:00: 00 Dose 2021-1 No Unknown 2-15 00:00: 00 Dose 2021-1 No Unknown 2-15 00:00: 00 Dose 2021-1 No Unknown 2-15 00:00: 00 Dose 2021-1 No Unknown 2-15 00:00: 00 Dose 2021-1 No Unknown 2-15 00:00: 00 Dose 2021-1 No Unknown 2-15 00:00: 00 Dose 2021-1 No Unknown 2-15 00:00: 00 Dose 2021-1 No Unknown 2-15 00:00: 00 Dose 2021-1 No Unknown 2-15 00:00: 00 Dose 2021-1 No Unknown 2-15 00:00: 00 Dose 2021-1 No Unknown 2-15 00:00: 00 Dose 2021-1 No Unknown 2-15 00:00: 00 TAKE 1 2021-1 No TABLET 1-16 DAILY. 00:00: 00 TAKE 1 2021-1 No TABLET 1-16 DAILY. 00:00: 00 Dose 2021-1 No Unknown 1-16 00:00: 00 TAKE 1 2021-1 No 112 TABLET 0-27 DAILY. 00:00: 00 Dose 2-0 No Unknown 8-08 00:00: 00 Dose 2-0 No Unknown 8-08 00:00: 00 Dose 2-0 No Unknown 8- 00:00: 00 Dose 2-0 No Unknown 8- 00:00: 00 Dose 2-0 No Unknown 8- 00:00: 00 Dose 2-0 No Unknown 8- 00:00: 00 Dose 2-0 No Unknown 8- 00:00: 00 Dose 2-0 No Unknown 8- 00:00: 00 Dose 2022-0 No Unknown 8 00:00: 00 Dose 2022-0 No Unknown 8 00:00: 00 Dose 2022-0 No Unknown 8 00:00: 00 Dose 2022-0 No Unknown 8 00:00: 00 Dose 2022-0 No Unknown 8 00:00: 00 Dose 2022-0 No Unknown 8 00:00: 00 Dose 2022-0 No Unknown 8 00:00: 00 Dose 2022-0 No Unknown 8 00:00: 00 Wellbutrin 2022-0 No 1mg XL 300 mg 8 24 hr 00:00: tablet, 00 extended release Trileptal 2022-0 No 1mg 150 mg 8- tablet 00:00: 00 buspirone 2022-0 No 1mg 10 mg 8- tablet 00:00: 00 Dose 2022-0 No Unknown 8 00:00: 00 Dose 2022-0 No Unknown 8 00:00: 00 Dose 2022-0 No Unknown 8 00:00: 00 Dose 2022-0 No Unknown 8 00:00: 00 Dose 2022-0 No Unknown 8 00:00: 00 Dose 2022-0 No Unknown 8 00:00: 00 Dose 2022-0 No Unknown 8 00:00: 00 TAKE 1 2-0 No TABLET - TWICE 00:00: DAILY. 00 TAKE 1 2-0 No TABLET AT 8- BEDTIME. 00:00: 00 Dose 2022-0 No Unknown 8 00:00: 00 Dose 2022-0 No Unknown 8 00:00: 00 Dose 2022-0 No Unknown 8 00:00: 00 Dose 2022-0 No Unknown 8 00:00: 00 Dose 2022-0 No Unknown 8 00:00: 00 Dose 2022-0 No Unknown 8 00:00: 00 Dose 2022-0 No Unknown 8 00:00: 00 Dose 2022-0 No Unknown 8 00:00: 00 Wellbutrin 2022-0 No 1mg XL 300 mg 8 24 hr 00:00: tablet, 00 extended release Trileptal 2022-0 No 1mg 150 mg 8-02 tablet 00:00: 00 buspirone 2022-0 No 1mg 10 mg 8-02 tablet 00:00: 00 Seroquel 2-0 No 1mg 100 mg 8-02 tablet 00:00: 00 Dose 2022-0 No Unknown 8-02 00:00: 00 Dose 2022-0 No Unknown 8- 00:00: 00 Dose 2022-0 No Unknown 8- 00:00: 00 Dose 2022-0 No Unknown 8- 00:00: 00 Dose 2022-0 No Unknown 8- 00:00: 00 Dose 2022-0 No Unknown 8- 00:00: 00 Wellbutrin 2-0 No 1mg XL 300 mg 8- 24 hr 00:00: tablet, 00 extended release Trileptal 2-0 No 1mg 150 mg 8- tablet 00:00: 00 buspirone 2022-0 No 1mg 10 mg 8-02 tablet 00:00: 00 Dose 2022-0 No Unknown 8- 00:00: 00 Dose 2022-0 No Unknown 8- 00:00: 00 Dose 2022-0 No Unknown 8- 00:00: 00 Dose 2022-0 No Unknown 8- 00:00: 00 Dose 2022-0 No Unknown 8- 00:00: 00 Dose 2022-0 No Unknown 8- 00:00: 00 Dose 2022-0 No Unknown 8- 00:00: 00 Dose 2022-0 No Unknown 7-30 00:00: 00 Dose 2022-0 No Unknown 7-30 00:00: 00 Dose 2022-0 No Unknown 7-30 00:00: 00 Dose 2022-0 No Unknown 7-30 00:00: 00 Dose 2022-0 No Unknown 7-30 00:00: 00 Dose 2022-0 No Unknown 7-30 00:00: 00 Dose 2022-0 No Unknown 7-30 00:00: 00 Dose 2022-0 No Unknown 7-30 00:00: 00 Dose 2022-0 No Unknown 7-30 00:00: 00 Dose 2022-0 No Unknown 7-30 00:00: 00 Dose 2022-0 No Unknown 7-30 00:00: 00 Dose 2022-0 No Unknown 7-30 00:00: 00 Dose 2022-0 No Unknown 7- 00:00: 00 Dose 2022-0 No Unknown 7- 00:00: 00 Dose 2022-0 No Unknown 7- 00:00: 00 Dose 2022-0 No Unknown 7- 00:00: 00 Dose 2022-0 No Unknown 7- 00:00: 00 Dose 2022-0 No Unknown 7- 00:00: 00 Dose 2022-0 No Unknown 7- 00:00: 00 Dose 2022-0 No Unknown 7- 00:00: 00 Dose 2022-0 No Unknown 7- 00:00: 00 Dose 2022-0 No Unknown 7- 00:00: 00 Dose 2022-0 No Unknown 7- 00:00: 00 Dose 2022-0 No Unknown 7- 00:00: 00 Dose 2022-0 No Unknown 7- 00:00: 00 Dose 2022-0 No Unknown 7- 00:00: 00 Dose 2022-0 No Unknown 7- 00:00: 00 Dose 2022-0 No Unknown 7- 00:00: 00 Dose 2022-0 No Unknown 7- 00:00: 00 Dose 2022-0 No Unknown 7- 00:00: 00 Dose 2022-0 No Unknown 7- 00:00: 00 Dose 2022-0 No Unknown 7- 00:00: 00 Dose 2022-0 No Unknown 7- 00:00: 00 Dose 2022-0 No Unknown 7- 00:00: 00 Dose 2022-0 No Unknown 7- 00:00: 00 Dose 2022-0 No Unknown 7- 00:00: 00 Dose 2022-0 No Unknown 7- 00:00: 00 Dose 2022-0 No Unknown 7- 00:00: 00 Dose 2022-0 No Unknown 7- 00:00: 00 Dose 2022-0 No Unknown 7- 00:00: 00 Dose 2022-0 No Unknown 7- 00:00: 00 Dose 2022-0 No Unknown 7- 00:00: 00 Dose 2022-0 No Unknown 7- 00:00: 00 Dose 2022-0 No Unknown 7- 00:00: 00 Dose 2022-0 No Unknown 7- 00:00: 00 Dose 2022-0 No Unknown 7-21 00:00: 00 Dose 2022-0 No Unknown 7-21 00:00: 00 Dose 2022-0 No Unknown 7-21 00:00: 00 Dose 2022-0 No Unknown 7-21 00:00: 00 Dose 2022-0 No Unknown 7-21 00:00: 00 Dose 2022-0 No Unknown 7-20 00:00: 00 Dose 2022-0 No Unknown 7-20 00:00: 00 Dose 2022-0 No Unknown 7-20 00:00: 00 Dose 2022-0 No Unknown 7-20 00:00: 00 Dose 2022-0 No Unknown 7-20 00:00: 00 Wellbutrin 2-0 No 1mg XL 300 mg 7-19 24 hr 00:00: tablet, 00 extended release buspirone 2-0 No 1mg 10 mg 7-19 tablet 00:00: 00 Dose 2022-0 No Unknown 7-19 00:00: 00 Dose 2022-0 No Unknown 7-19 00:00: 00 Dose 2022-0 No Unknown 7-19 00:00: 00 Dose 2022-0 No Unknown 7-19 00:00: 00 Dose 2022-0 No Unknown 7-19 00:00: 00 Dose 2-0 No Unknown 7-19 00:00: 00 TAKE 1 2-0 No TABLET AT 7-19 BEDTIME. 00:00: 00 Dose 2-0 No Unknown 7-19 00:00: 00 Dose 2022-0 No Unknown 7-19 00:00: 00 Dose 2022-0 No Unknown 7-19 00:00: 00 Dose 2022-0 No Unknown 7-19 00:00: 00 Dose 2-0 No Unknown 7-19 00:00: 00 Dose 2022-0 No Unknown 7-19 00:00: 00 Dose 2022-0 No Unknown 7-19 00:00: 00 Wellbutrin 2-0 No 1mg XL 300 mg 7-19 24 hr 00:00: tablet, 00 extended release buspirone 2-0 No 1mg 10 mg 7-19 tablet 00:00: 00 Lamictal 25 2-0 No 2mg mg tablet 7-19 00:00: 00 Seroquel 2022-0 No 1mg 100 mg 7-19 tablet 00:00: 00 Dose 2022-0 No Unknown 7-19 00:00: 00 Dose 2022-0 No Unknown 7-19 00:00: 00 Dose 2022-0 No Unknown 7-19 00:00: 00 Dose 2022-0 No Unknown 7-19 00:00: 00 Wellbutrin 2022-0 No 1mg XL 300 mg 7-19 24 hr 00:00: tablet, 00 extended release buspirone 2022-0 No 1mg 10 mg 7-19 tablet 00:00: 00 Dose 2022-0 No Unknown 7-19 00:00: 00 Seroquel 2022-0 No 1mg 100 mg 7-19 tablet 00:00: 00 Dose 2022-0 No Unknown 7-19 00:00: 00 Dose 2022-0 No Unknown 7-19 00:00: 00 Dose 2022-0 No Unknown 7-19 00:00: 00 Dose 2022-0 No Unknown 7-19 00:00: 00 Wellbutrin 2022-0 No 1mg XL 300 mg 7-19 24 hr 00:00: tablet, 00 extended release buspirone 2-0 No 1mg 10 mg 7-19 tablet 00:00: 00 Dose 2022-0 No Unknown 7-19 00:00: 00 Dose 2022-0 No Unknown 7-19 00:00: 00 Dose 2022-0 No Unknown 7-19 00:00: 00 Dose 2022-0 No Unknown 7-19 00:00: 00 Dose 2022-0 No Unknown 7-19 00:00: 00 Dose 2022-0 No Unknown 7-19 00:00: 00 Dose 2022-0 No Unknown 7-13 00:00: 00 Dose 2022-0 No Unknown 7-13 00:00: 00 Dose 2022-0 No Unknown 7-13 00:00: 00 Dose 2022-0 No Unknown 7-13 00:00: 00 Dose 2022-0 No Unknown 7-13 00:00: 00 Dose 2022-0 No Unknown 7-13 00:00: 00 Dose 2022-0 No Unknown 7-13 00:00: 00 Dose 2022-0 No Unknown 7-13 00:00: 00 Dose 2022-0 No Unknown 7-13 00:00: 00 Dose 2022-0 No Unknown 7-13 00:00: 00 Dose 2022-0 No Unknown 7-13 00:00: 00 Dose 2022-0 No Unknown 7-13 00:00: 00 Dose 2022-0 No Unknown 7-13 00:00: 00 Dose 2022-0 No Unknown 7-13 00:00: 00 Dose 2022-0 No Unknown 7-13 00:00: 00 Dose 2022-0 No Unknown 7-13 00:00: 00 Dose 2022-0 No Unknown 7-13 00:00: 00 Dose 2022-0 No Unknown 7-13 00:00: 00 Dose 2022-0 No Unknown 7-13 00:00: 00 Dose 2022-0 No Unknown 7-13 00:00: 00 Dose 2022-0 No Unknown 7-07 [...] Dose 2022-0 No Unknown 7-06 00:00: 00 Dose 2022-0 No Unknown 7-06 00:00: 00 Dose 2022-0 No Unknown 7-06 00:00: 00 Dose 2022-0 No Unknown 7-06 00:00: 00 Dose 2022-0 No Unknown 7-06 00:00: 00 Wellbutrin 2022-0 No 1mg XL 300 mg 7-05 24 hr 00:00: tablet, 00 extended release buspirone 2-0 No 1mg 10 mg 7-05 tablet 00:00: 00 Seroquel 2022-0 No 1mg 100 mg 7-05 tablet 00:00: 00 Dose 2022-0 No Unknown 7-05 00:00: 00 Dose 2022-0 No Unknown 7-05 00:00: 00 Dose 2022-0 No Unknown 7-05 00:00: 00 Dose 2022-0 No Unknown 7-05 00:00: 00 Wellbutrin 2022-0 No 1mg XL 300 mg 7-05 24 hr 00:00: tablet, 00 extended release buspirone 2022-0 No 1mg 10 mg 7-05 tablet 00:00: 00 Seroquel 2022-0 No 1mg 100 mg 7-05 tablet 00:00: 00 Dose 2022-0 No Unknown 7-05 00:00: 00 Dose 2022-0 No Unknown 7-05 00:00: 00 Dose 2022-0 No Unknown 7-05 00:00: 00 Dose 2022-0 No Unknown 7-05 00:00: 00 Wellbutrin 2022-0 No 1mg XL 300 mg 7-05 24 hr 00:00: tablet, 00 extended release buspirone 2022-0 No 1mg 10 mg 7-05 tablet 00:00: 00 Seroquel 2022-0 No 1mg 100 mg 7-05 tablet 00:00: 00 Lamictal 25 2022-0 No 1mg mg tablet 7-05 00:00: 00 Dose 2022-0 No Unknown 7-05 00:00: 00 Dose 2022-0 No Unknown 7-05 00:00: 00 Dose 2022-0 No Unknown 7-05 00:00: 00 Wellbutrin 2022-0 No 1mg XL 300 mg 7-05 24 hr 00:00: tablet, 00 extended release buspirone 2022-0 No 1mg 10 mg 7-05 tablet 00:00: 00 Seroquel 2022-0 No 1mg 100 mg 7-05 tablet 00:00: 00 Dose 2022-0 No Unknown 7-05 00:00: 00 Dose 2022-0 No Unknown 7-05 00:00: 00 Dose 2022-0 No Unknown 7-05 00:00: 00 Dose 2022-0 No Unknown 7-05 00:00: 00 Wellbutrin 2022-0 No 1mg XL 300 mg 7-05 24 hr 00:00: tablet, 00 extended release buspirone 2022-0 No 1mg 10 mg 7-05 tablet 00:00: 00 Seroquel 2022-0 No 1mg 100 mg 7-05 tablet 00:00: 00 Dose 2022-0 No Unknown 7-05 [...] 6-30 00:00: 00 Dose 2022-0 No Unknown 630 00:00: 00 Dose 2022-0 No Unknown 630 00:00: 00 levothyroxi 2022-0 No 1mcg ne 112 mcg 6-09 tablet 00:00: 00 Dose 2022-0 No Unknown 6- 00:00: 00 levothyroxi 2022-0 No 1mcg ne 112 mcg 6-09 tablet 00:00: 00 levothyroxi 2022-0 No 1mcg ne 112 mcg 6-09 tablet 00:00: 00 levothyroxi 2022-0 No 1mcg ne 112 mcg 6-09 tablet 00:00: 00 TAKE 1 2022-0 No TABLET 6-08 DAILY. 00:00: 00 levothyroxi 2022-0 No 1mcg ne 50 mcg 6-08 tablet 00:00: 00 TAKE 1 2022-0 No TABLET 6-08 DAILY. 00:00: 00 Dose 2022-0 No Unknown 6-08 00:00: 00 chlorthalid 2022-0 No 1mg one 25 mg 6-08 tablet 00:00: 00 levothyroxi 2022-0 No 1mcg ne 50 mcg 6-08 tablet 00:00: 00 chlorthalid 2022-0 No 1mg one 25 mg 6-08 tablet 00:00: 00 levothyroxi 2022-0 No 1mcg ne 50 mcg 6-08 tablet 00:00: 00 chlorthalid 2022-0 No 1mg one 25 mg 6-08 tablet 00:00: 00 levothyroxi 2022-0 No 1mcg ne 50 mcg 6-08 tablet 00:00: 00 spironolact 2022-0 No 1mg one 100 mg 5-12 tablet 00:00: 00 ibuprofen 2022-0 No 1mg 800 mg 5-12 tablet 00:00: 00 Dose 2022-0 No Unknown 5-12 00:00: 00 Dose 2022-0 No Unknown 5-12 00:00: 00 spironolact 2022-0 No 1mg one 100 mg 5-12 tablet 00:00: 00 ibuprofen 2022-0 No 1mg 800 mg 5-12 tablet 00:00: 00 spironolact 2022-0 No 1mg one 100 mg 5-12 tablet 00:00: 00 ibuprofen 2022-0 No 1mg 800 mg 5-12 tablet 00:00: 00 spironolact 2022-0 No 1mg one 100 mg 5-12 tablet 00:00: 00 ibuprofen 2022-0 No 1mg 800 mg 5-12 tablet 00:00: 00 Wellbutrin 2022-0 No 1mg XL 300 mg 5-03 24 hr 00:00: tablet, 00 extended release Dose 2022-0 No Unknown 5-03 00:00: 00 buspirone 2022-0 No 1mg 10 mg 5-03 tablet 00:00: 00 Dose 2022-0 No Unknown 5-03 00:00: 00 TAKE 1 2022-0 No TABLET AT 5-03 BEDTIME. 00:00: 00 Dose 2022-0 No Unknown 5-03 00:00: 00 Dose 2022-0 No Unknown 5-03 00:00: 00 Dose 2022-0 No Unknown 5-03 00:00: 00 Wellbutrin 2022-0 No 1mg XL 300 mg 5-03 24 hr 00:00: tablet, 00 extended release Celexa 20 2-0 No 1mg mg tablet 5- 00:00: 00 buspirone 2022-0 No 1mg 10 mg 5-03 tablet 00:00: 00 Seroquel 2022-0 No 1mg 100 mg 5-03 tablet 00:00: 00 Wellbutrin 2022-0 No 1mg XL 300 mg 5-03 24 hr 00:00: tablet, 00 extended release Dose 2022-0 No Unknown 5-03 00:00: 00 buspirone 2022-0 No 1mg 10 mg 5-03 tablet 00:00: 00 Seroquel 2022-0 No 1mg 100 mg 5-03 tablet 00:00: 00 Wellbutrin 2022-0 No 1mg XL 300 mg 5-03 24 hr 00:00: tablet, 00 extended release Dose 2022-0 No Unknown 5-03 00:00: 00 buspirone 2022-0 No 1mg 10 mg 5-03 tablet 00:00: 00 Dose 2022-0 No Unknown 5-03 00:00: 00 levothyroxi 2022-0 No 1mcg ne 25 mcg 4-18 tablet 00:00: 00 Dose 2022-0 No Unknown 4-18 00:00: 00 levothyroxi 2022-0 No 1mcg ne 25 mcg 4-18 tablet 00:00: 00 levothyroxi 2022-0 No 1mcg ne 25 mcg 4-18 tablet 00:00: 00 levothyroxi 2022-0 No 1mcg ne 25 mcg 4-18 tablet 00:00: 00 spironolact 2022-0 No 1mg one 50 mg 4-17 tablet 00:00: 00 Dose 2022-0 No Unknown 4-17 00:00: 00 spironolact 2022-0 No 1mg one 50 mg 4-17 tablet 00:00: 00 spironolact 2022-0 No 1mg one 50 mg 4-17 tablet 00:00: 00 spironolact 2022-0 No 1mg one 50 mg 4-17 tablet 00:00: 00 Dose 2022-0 No Unknown 4-14 00:00: 00 metformin 2022-0 No 1mg ER 500 mg 4-14 24 hr 00:00: tablet,exte 00 nded release spironolact 2022-0 No 1mg one 50 mg 4-14 tablet 00:00: 00 spironolact 2022-0 No 1mg one 50 mg 4-14 tablet 00:00: 00 levothyroxi 2022-0 No 1mcg ne 25 mcg 4-14 tablet 00:00: 00 Dose 2022-0 No Unknown 4-14 00:00: 00 Dose 2022-0 No Unknown 4-14 00:00: 00 Dose 2022-0 No Unknown 4-14 00:00: 00 metformin 2022-0 No 1mg ER 500 mg 4-14 24 hr 00:00: tablet,exte 00 nded release spironolact 2022-0 No 1mg one 50 mg 4-14 tablet 00:00: 00 spironolact 2022-0 No 1mg one 50 mg 4-14 tablet 00:00: 00 levothyroxi 2022-0 No 1mcg ne 25 mcg 4-14 tablet 00:00: 00 Dose 2022-0 No Unknown 4-14 00:00: 00 Dose 2022-0 No Unknown 4-14 00:00: 00 Dose 2022-0 No Unknown 4-14 00:00: 00 metformin 2022-0 No 1mg ER 500 mg 4-14 24 hr 00:00: tablet,exte 00 nded release spironolact 2022-0 No 1mg one 50 mg 4-14 tablet 00:00: 00 spironolact 2022-0 No 1mg one 50 mg 4-14 tablet 00:00: 00 levothyroxi 2022-0 No 1mcg ne 25 mcg 4-14 tablet [...] Dose 2022-0 No Unknown 4-14 00:00: 00 metformin 2022-0 No 1mg ER [...] hr 00:00: tablet, 00 extended release Dose 2022-0 No Unknown 4-06 00:00: 00 Wellbutrin 2022-0 No 1mg XL 300 mg 4-06 24 hr 00:00: tablet, 00 extended release Wellbutrin 2022-0 No 1mg XL 300 mg 4-06 24 hr 00:00: tablet, 00 extended release Wellbutrin 2022-0 No 1mg XL 300 mg 4-06 24 hr 00:00: tablet, 00 extended release Dose 2022-0 No Unknown 4-05 00:00: 00 Wellbutrin 2022-0 No 1mg XL 300 mg 4-05 24 hr 00:00: tablet, 00 extended release buspirone 2022-0 No 1mg 10 mg 4-05 tablet 00:00: 00 Dose 2022-0 [...] Dose 2022-0 No Unknown 4-05 00:00: 00 Celexa 20 2-0 No 1mg mg tablet 4-05 00:00: 00 Wellbutrin 2022-0 No 1mg XL 300 mg 4-05 24 hr 00:00: tablet, 00 extended release buspirone 2022-0 No 1mg 10 mg 4-05 tablet 00:00: 00 Seroquel 2022-0 No 1mg 100 mg 4-05 tablet 00:00: [...] Dose 2022-0 No Unknown 4-05 00:00: 00 TAKE 1 2022-0 No TABLET AT 4-05 BEDTIME. 00:00: 00 Wellbutrin 2022-0 No 1mg XL 300 mg 4-05 24 hr 00:00: tablet, 00 extended release Dose 2022-0 No Unknown 4-05 00:00: 00 [...] Dose 2022-0 No Unknown 4-05 00:00: 00 Wellbutrin 2022-0 No 1mg XL 300 mg 4-05 24 hr 00:00: tablet, 00 extended release buspirone 2022-0 No 1mg 10 mg 4-05 tablet 00:00: 00 Seroquel 2022-0 No 1mg 100 mg 4-05 tablet 00:00: [...] Dose 2022-0 No Unknown 4-05 00:00: 00 Wellbutrin 2022-0 No 1mg XL 300 mg 4-05 24 hr 00:00: tablet, 00 extended release buspirone 2022-0 No 1mg 10 mg 4-05 tablet 00:00: 00 Dose 2022-0 [...] Dose 2022-0 No Unknown 2-25 00:00: 00 Celexa 20 2022-0 No 1mg [...] Dose 2022-0 No Unknown 2-25 00:00: 00 Celexa 20 2022-0 No 1mg [...] Dose 2022-0 No Unknown 2-25 00:00: 00 Celexa 20 2022-0 No 1mg [...] Dose 2022-0 No Unknown 2-25 00:00: 00 Celexa 20 2022-0 No 1mg [...] 2-25 00:00: 00 Dose 2022-0 No Unknown 2-08 00:00: 00 Celexa 20 2022-0 No 1mg mg tablet 2-08 00:00: 00 Dose 2022-0 No Unknown 2-08 00:00: 00 Dose 2022-0 No Unknown 2-08 00:00: 00 Dose 2022-0 No Unknown 2-08 00:00: 00 Dose 2022-0 No Unknown 2-08 00:00: 00 Dose 2022-0 No Unknown 2-08 00:00: 00 Celexa 20 2022-0 No 1mg mg tablet 2-08 00:00: 00 Dose 2022-0 No Unknown 2-08 00:00: 00 Dose 2022-0 No Unknown 2-08 00:00: 00 Dose 2022-0 No Unknown 2-08 00:00: 00 levothyroxi 2022-0 No 1mcg ne 25 mcg 2-08 tablet 00:00: 00 Dose 2022-0 No Unknown 2-08 00:00: 00 Celexa 20 2022-0 No 1mg mg tablet 2-08 00:00: 00 Dose 2022-0 No Unknown 2-08 00:00: 00 Dose 2022-0 No Unknown 2-08 00:00: 00 Dose 2022-0 No Unknown 2-08 00:00: 00 levothyroxi 2022-0 No 1mcg ne 25 mcg 2-08 tablet 00:00: 00 Dose 2022-0 No Unknown 2-08 00:00: 00 Celexa 20 2022-0 No 1mg mg tablet 2-08 00:00: 00 Dose 2022-0 No Unknown 2-08 00:00: 00 Dose 2022-0 No Unknown 2-08 00:00: 00 Dose 2022-0 No Unknown 2-08 00:00: 00 levothyroxi 2022-0 No 1mcg ne 25 mcg 2-08 tablet 00:00: 00 Dose 2022-0 No Unknown 2-08 00:00: 00 Celexa 20 2022-0 No 1mg mg tablet 2-08 00:00: 00 Dose 2022-0 No Unknown 2-08 00:00: 00 Dose 2022-0 No Unknown 2-08 00:00: 00 Dose 2022-0 No Unknown 2-08 00:00: 00 levothyroxi 2022-0 No 1mcg ne 25 mcg 2-08 tablet 00:00: 00 Dose 2022-0 No Unknown 2-02 00:00: 00 Dose 2022-0 No Unknown 2-02 00:00: 00 Dose 2022-0 No Unknown 2-02 00:00: 00 Dose 2022-0 No Unknown 2-02 00:00: 00 Dose 2022-0 No Unknown 2-02 00:00: 00 Dose 2022-0 No Unknown 2-02 00:00: 00 Dose 2022-0 No Unknown 2-02 00:00: 00 Dose 2022-0 No Unknown 2-02 00:00: 00 Dose 2022-0 No Unknown 2-02 00:00: 00 Dose 2022-0 No Unknown 2-02 00:00: 00 Dose 2022-0 No Unknown 2-02 00:00: 00 Dose 2022-0 No Unknown 2-02 00:00: 00 Dose 2022-0 No Unknown 2-02 00:00: 00 Dose 2022-0 No Unknown 2-02 00:00: 00 Dose 2022-0 No Unknown 2-02 00:00: 00 Dose 2022-0 No Unknown 2-02 00:00: 00 Dose 2022-0 No Unknown 2-02 00:00: 00 Dose 2022-0 No Unknown 2-02 00:00: 00 Dose 2022-0 No Unknown 2-02 00:00: 00 Dose 2022-0 No Unknown 2-02 00:00: 00 Wellbutrin 2022-0 No 1mg XL 150 mg 1-24 24 hr 00:00: tablet, 00 extended release Dose 2022-0 No Unknown 1-24 00:00: 00 Dose 2022-0 No Unknown 1-24 00:00: 00 Dose 2022-0 No Unknown 1-24 00:00: 00 Dose 2022-0 No Unknown 1-24 00:00: 00 Wellbutrin 2022-0 No 1mg XL 150 mg 1-24 24 hr 00:00: tablet, 00 extended release Wellbutrin 2022-0 No 1mg XL 150 mg 1-24 24 hr 00:00: tablet, 00 extended release Dose 2022-0 No Unknown 1-24 00:00: 00 Dose 2022-0 No Unknown 1-24 00:00: 00 Dose 2022-0 No Unknown 1-24 00:00: 00 Dose 2022-0 No Unknown 1-24 00:00: 00 Dose 2022-0 No Unknown 1-24 00:00: 00 Dose 2022-0 No Unknown 1-24 00:00: 00 Dose 2022-0 No Unknown 1-24 00:00: 00 Dose 2022-0 No Unknown 1-24 00:00: 00 Wellbutrin 2022-0 No 1mg XL 150 mg 1-24 24 hr 00:00: tablet, 00 extended release Dose 2022-0 No Unknown 1-24 00:00: 00 Dose 2022-0 No Unknown 1-24 00:00: 00 Dose 2022-0 No Unknown 1-24 00:00: 00 Dose 2022-0 No Unknown 1-24 00:00: 00 Wellbutrin 2022-0 No 1mg XL 150 mg 1-24 24 hr 00:00: tablet, 00 extended release Dose 2022-0 No Unknown 1-24 00:00: 00 Dose 2022-0 No Unknown 1-24 00:00: 00 Dose 2022-0 No Unknown 1-24 00:00: 00 Dose 2022-0 No Unknown 1-24 00:00: 00 Dose 2022-0 No Unknown 1-11 00:00: 00 Wellbutrin 2022-0 No 1mg XL 150 mg 1-11 24 hr 00:00: tablet, 00 extended release Dose 2022-0 No Unknown 1-11 00:00: 00 Dose 2022-0 No Unknown 1-11 00:00: 00 Dose 2022-0 No Unknown 1-11 00:00: 00 Dose 2022-0 No Unknown 1-11 00:00: 00 Dose 2022-0 No Unknown 1-11 00:00: 00 Wellbutrin 2022-0 No 1mg XL 150 mg 1-11 24 hr 00:00: tablet, 00 extended release Dose 2022-0 No Unknown 1-11 00:00: 00 Dose 2022-0 No Unknown 1-11 00:00: 00 Dose 2022-0 No Unknown 1-11 00:00: 00 Dose 2022-0 No Unknown 1-11 00:00: 00 Dose 2022-0 No Unknown 1-11 00:00: 00 Wellbutrin 2022-0 No 1mg XL 150 mg 1-11 24 hr 00:00: tablet, 00 extended release Dose 2022-0 No Unknown 1-11 00:00: 00 Dose 2022-0 No Unknown 1-11 00:00: 00 Dose 2022-0 No Unknown 1-11 00:00: 00 Dose 2-0 [...] 2-0 No Unknown 1-11 00:00: 00 Dose 2020-1 No Unknown 2-20 00:00: 00 Dose 2020-1 No Unknown 2-20 00:00: 00 Dose 2020-1 No Unknown 2-20 00:00: 00 Zofran 4 mg 2020-1 No 1mg tablet 2-20 00:00: 00 Dose 2020-1 No Unknown 2-20 00:00: 00 omeprazole 2020-1 No 1mg 40 mg 2-20 capsule,del 00:00: ayed 00 release Zofran 4 mg 2020-1 No 1mg tablet 2-20 00:00: 00 Dose 2020-1 No Unknown 2-20 00:00: 00 omeprazole 2020-1 No 1mg 40 mg 2-20 capsule,del 00:00: ayed 00 release Zofran 4 mg 2020-1 No 1mg tablet 2-20 00:00: 00 Dose 2020-1 No Unknown 2-20 00:00: 00 omeprazole 2020-1 No 1mg 40 mg 2-20 capsule,del 00:00: ayed 00 release Zofran 4 mg 2020-1 No 1mg tablet 2-20 00:00: 00 Dose 2020-1 No Unknown 2-20 00:00: 00 omeprazole 2020-1 No 1mg 40 mg 2-20 capsule,del 00:00: ayed 00 release maalox:diph 2020-08 No 15mL 15 mL, [facility] vers enhydrAMINE 2-15 12-15 Oral [facility] of :lidocaine 21:00: 20:01 ([place] 2 % viscous 00 :00 Swallow), Med ical 1:1:1 ONCE, 1 Branch ([facility] dose, On [facility] BLM) Wed oral 07/27/21 suspension at 1500, 15 mL Routine methocarbam 2020-08- No 500mg 500 mg, U nivers oL [...] 07/27/21 at 1330, Routine famotidine 2020-08 Yes [id number] 40mg Take 1 [facility] (PEPCID) 40 2-15 tablet by [facility] of mg tablet 00:00: mouth [place] 00 daily. [facility] ibuprofen 2020-08 Yes [id number] 600mg Take 1 [facility] nivers 600 mg 2-15 tablet by [facility] of tablet 00:00: mouth [place] 00 every 6 Medical (six) Branch hours as needed for Pain (scale 4-6). methocarbam 2020-08 Yes [id number] 500mg Take 1 Univers oL 500 mg 2-15 tablet by ity o f tablet 00:00: mouth 4 [place] 00 (four) Medical times Branch daily. Dose 2020-08 No Unknown 2-15 00:00: 00 hydroxyzine 2021-1 No 1mg HCl 50 mg 2-15 tablet 00:00: 00 Dose 2020-1 No Unknown 2-15 00:00: 00 Dose 2020-1 No Unknown 2-15 00:00: 00 hydroxyzine 2020-1 No 1mg HCl 50 mg 2-15 tablet 00:00: 00 Dose 2020- No Unknown 2-15 00:00: 00 Dose 2020-1 No Unknown 2-15 00:00: 00 hydroxyzine 2020- No 1mg HCl 50 mg 2-15 tablet 00:00: 00 Dose 2020- No Unknown 2-15 00:00: 00 Dose 2020- No Unknown 2-15 00:00: 00 hydroxyzine 2020-08 No 1mg HCl 50 mg 2-15 tablet 00:00: 00 Dose 2020- No Unknown 2-15 00:00: 00 Dose 2020- No Unknown 2-15 00:00: 00 hydroxyzine 2020-08 No 1mg HCl 50 mg 2-15 tablet 00:00: 00 Dose 2020- No Unknown 2-15 00:00: 00 sertraline 2020- No 15mg 100 mg 1-18 tablet 00:00: 00 hydroxyzine 2020-08 No 1mg HCl 50 mg 1-18 tablet 00:00: 00 trazodone 2020-08 No 2mg 100 mg 1-18 tablet 00:00: 00 sertraline 1 No 15mg 100 mg 1-18 tablet 00:00: 00 hydroxyzine 2020-08 No 1mg HCl 50 mg 1-18 tablet 00:00: 00 trazodone 2020-08 No 2mg 100 mg 1-18 tablet 00:00: 00 sertraline 1 No 15mg 100 mg 1-18 tablet 00:00: 00 hydroxyzine 2020-08 No 1mg HCl 50 mg 1-18 tablet 00:00: 00 trazodone 1 No 2mg 100 mg 1-18 tablet 00:00: 00 sertraline 2020-1 No 15mg 100 mg 1-18 tablet 00:00: 00 hydroxyzine 2020-08 No 1mg HCl 50 mg 1-18 tablet 00:00: 00 trazodone 2020-08 No 2mg 100 mg 1-18 tablet 00:00: 00 sertraline 2021-1 No 15mg 100 mg 1-18 tablet 00:00: 00 hydroxyzine 2020-08 No 1mg HCl 50 mg 1-18 tablet 00:00: 00 trazodone 2020-08 No 2mg 100 mg 1-18 tablet 00:00: 00 acetaminoph 2020-08- No 1000mg 1,000 mg, Univers en 1-13 11-13 Oral, ity of (TYLENOL) 05:45: 04:43 ONCE, [place] :[place] dose, On Medical 1,000 mg Fri Branch 06/24/21 at 2345, Routine Dose 2020-08 No Unknown 1-04 00:00: 00 Dose 2020-08 No Unknown 1-04 00:00: 00 Dose 2020-08 No Unknown 1-04 00:00: 00 Abilify 2 2020-08 No 1mg mg tablet 1-04 00:00: 00 Dose 2020-08 No Unknown 1-04 00:00: 00 Dose 2020-08 No Unknown 1-04 00:00: 00 Dose 2020-08 No Unknown 1-04 00:00: 00 Abilify 2 2020-08 No 1mg mg tablet 1-04 00:00: 00 Dose 2020-08 No Unknown 1-04 00:00: 00 Dose 2020-08 No Unknown 1-04 00:00: 00 Dose 2020-08 No Unknown 1-04 00:00: 00 Abilify 2 2020-08 No 1mg mg tablet 1-04 00:00: 00 Dose 2020-08 No Unknown 1-04 00:00: 00 Dose 2020-08 No Unknown 1-04 00:00: 00 Dose 2020- No Unknown 1-04 00:00: 00 Abilify 2 2020-08 No 1mg mg tablet 1-04 00:00: 00 Dose 2020-08 No Unknown 1-04 00:00: 00 Dose 2020-08 No Unknown 1-04 00:00: 00 Dose 2020-08 No Unknown 1-04 00:00: 00 Abilify 2 2020-08 No 1mg mg tablet 1-04 00:00: 00 Zoloft 100 2020-08 No 1mg mg tablet 0-18 00:00: 00 Zoloft 100 2021-1 No 1mg mg tablet 0-18 00:00: 00 hydroxyzine 2020-1 No 1mg HCl 50 mg 0-18 tablet 00:00: 00 hydroxyzine 2020-1 No 1mg HCl 50 mg 0-18 tablet 00:00: 00 trazodone 2020-1 No 1mg 100 mg 0-18 tablet 00:00: 00 hydroxyzine 1 No 1mg HCl 50 mg 0-18 tablet 00:00: 00 hydroxyzine 2020-08 No 1mg HCl 50 mg 0-18 tablet 00:00: 00 trazodone 2020-1 No 1mg 100 mg 0-18 tablet 00:00: 00 Zoloft 100 2020-1 No 1mg mg tablet 0-18 00:00: 00 hydroxyzine 1 No 1mg HCl 50 mg 0-18 tablet 00:00: 00 hydroxyzine 2020-08 No 1mg HCl 50 mg 0-18 tablet 00:00: 00 trazodone 1 No 1mg 100 mg 0-18 tablet 00:00: 00 Zoloft 100 2020-1 No 1mg mg tablet 0-18 00:00: 00 hydroxyzine 1 No 1mg HCl 50 mg 0-18 tablet 00:00: 00 hydroxyzine 1 No 1mg HCl 50 mg 0-18 tablet 00:00: 00 trazodone 2020-1 No 1mg 100 mg 0-18 tablet 00:00: 00 Zoloft 100 2020-1 No 1mg mg tablet 0-18 00:00: 00 hydroxyzine 2020-1 No 1mg HCl 50 mg 0-18 tablet 00:00: 00 hydroxyzine 2020-1 No 1mg HCl 50 mg 0-18 tablet 00:00: 00 trazodone 2020-1 No 1mg 100 mg 0-18 tablet 00:00: 00 sertraline 2020-1 No 1mg 50 mg 0-04 tablet 00:00: 00 Dose 2020-1 No Unknown 0-04 00:00: 00 sertraline 2020-1 No 1mg 50 mg 0-04 tablet 00:00: 00 Dose 2020-1 No Unknown 0-04 00:00: 00 sertraline 2020-1 No 1mg 50 mg 0-04 tablet 00:00: 00 Dose 2020-1 No Unknown 0-04 00:00: 00 sertraline 2020-1 No 1mg 50 mg 0-04 tablet 00:00: 00 Dose 2020-1 No Unknown 0-04 00:00: 00 sertraline 2020-1 No 1mg 50 mg 0-04 tablet 00:00: 00 Dose 2020-1 No Unknown 0-04 00:00: 00 sertraline 1-0 No 1mg 50 mg 9-20 tablet 00:00: 00 Dose 2020-0 No Unknown 9-20 00:00: 00 sertraline 2020-0 No 1mg 50 mg 9-20 tablet 00:00: 00 Dose 2020-0 No Unknown 9-20 00:00: 00 sertraline 2020-0 No 1mg 50 mg 9-20 tablet 00:00: 00 Dose 2020-0 No Unknown 9-20 00:00: 00 sertraline 2020-0 No 1mg 50 mg 9-20 tablet 00:00: 00 Dose 2020-0 No Unknown 9-20 00:00: 00 sertraline 2020-0 No 1mg 50 mg 9-20 tablet 00:00: 00 Dose 2020-0 No Unknown 9-20 00:00: 00 levonorgest 2020-0 2020- No [id number] 1{devic Univers reL 01-05 100 e} ity of (LILETTA) 21:00: 21:00 [place] IUD 1 00 :00 [employer] [place] ibuprofen 2020- No [id number] 800mg Univers (IBU) 01-05- 100 ity of tablet 800 21:00: 21:00 [place] mg 00 :00 Medical Branch ibuprofen 2020- No [id number] 800mg 800 mg, Univers (IBU) 01-05- 100 Oral, ity of tablet 800 21:00: 21:00 ONCE, 1 [place] mg 00 :00 dose, [facility] 01/05/21 at Branch 1600, Routine levonorgest 2020- No [id number] 1{devic 1 Device, Univers reL 01-05 100 e} Intrauteri ity of (LILETTA) 21:00: 21:00 [place] 1 [place] :00 1 dose, [facility] [employer] [facility] 01/05/21 at 1600, Routine levonorgest 2020- No [id number] 1{devic Univers reL 01-05- 100 e} ity of (LILETTA) 21:00: 21:00 [place] IUD 1 00 :00 [employer] [facility] ibuprofen 2020- No [id number] 800mg Univers (IBU) 01-05- 100 ity of tablet 800 21:00: 21:00 [place] mg 00 :00 Medical Branch ibuprofen 2020- No [id number] 800mg 800 mg, Univers (IBU) 01-05- 100 Oral, ity of tablet 800 21:00: 21:00 ONCE, 1 [place] mg 00 :00 dose, [facility] 01/05/21 at Branch 1600, Routine levonorgest 2020- No [id number] 1{devic 1 Device, Univers reL 01-05 100 e} Intrauteri ity of (LILETTA) 21:00: 21:00 [place]CE[place] 1 00 :00 1 dose, [employer] [facility] 01/05/21 at 1600, Routine levonorgest 2020- No [id number] 1{devic Univers reL 01-05 100 e} ity of (LILETTA) 21:00: 21:00 [place] IUD 1 00 :00 [employer] [place] ibuprofen 2020- No [id number] 800mg Univers (IBU) 01-05- 100 ity of tablet 800 21:00: 21:00 [place] mg 00 :00 Medical [place] ibuprofen 2020- No [id number] 800mg 800 mg, Univers (IBU) 01-05 05- 100 Oral, ity of tablet 800 21:00: 21:00 ONCE, 1 [place] mg 00 :00 dose, [facility] 01/05/21 at Branch 1600, Routine levonorgest 2020- No [id number] 1{devic 1 Device, Univers reL 01-05- 100 e} Intrauteri ity of (LILETTA) 21:00: 21:00 [place]CE[place] 1 [place] :00 1 dose, [employer] [facility] 01/05/21 at 1600, Routine levonorgest 2026- No by [facility] 01-05 Intrauteri ity of ( 00:00: 04:59 ne route. [place] INTRAUTERIN 00 :00 Medical E) Branch levonorgest 2026- No by [facility] 01-05 Intrauteri ity of ( 00:00: 04:59 ne route. [place] INTRAUTERIN 00 :00 Medical E) Branch levonorgest 2026- No by [facility] 01-05 Intrauteri ity of ( 00:00: 04:59 ne route. [place] as INTRAUTERIN 00 :00 Medical E) Branch levonorgest 2026- No by [facility] 01-05 Intrauteri ity of ( 00:00: 04:59 ne route. [place] as INTRAUTERIN 00 :00 Medical E) Branch levonorgest 2026- No by [facility] 01-05 Intrauteri ity of ( 00:00: 04:59 ne route. [place] as INTRAUTERIN 00 :00 Medical E) Branch levonorgest 2026- No by [facility] 01-05 Intrauteri ity of ( 00:00: 04:59 ne route. [place] INTRAUTERIN 00 :00 Medical E) Branch ProAir HFA 2020-0 No 2mcg/ac 90 5-03 tuation mcg/actuati 00:00: on aerosol 00 inhaler Tessalon 2020-0 No 1mg Perles 100 5-03 mg capsule 00:00: 00 ProAir HFA 2020-0 No 2mcg/ac 90 5-03 tuation mcg/actuati 00:00: on aerosol 00 inhaler Tessalon 2021-0 No 1mg Perles 100 5-03 mg capsule 00:00: 00 ProAir HFA 2021-0 No 2mcg/ac 90 5-03 tuation mcg/actuati 00:00: on aerosol 00 inhaler ProAir HFA 2020-0 No 2mcg/ac 90 5-03 tuation mcg/actuati 00:00: on aerosol 00 inhaler Tessalon 1-0 No 1mg Perles 100 5-03 mg capsule 00:00: 00 Tessalon 2021-0 No 1mg Perles 100 5-03 mg capsule 00:00: 00 ProAir HFA 1-0 No 2mcg/ac 90 5-03 tuation mcg/actuati 00:00: on aerosol 00 inhaler Tessalon 1-0 No 1mg Perles 100 5-03 mg capsule 00:00: 00 mupirocin 2 2021-0 No 1% % topical 4-09 ointment 00:00: 00 clotrimazol 1-0 No 1% e 1 % 4-09 topical 00:00: cream 00 Diflucan 1-0 No 1mg 150 mg 4-09 tablet 00:00: 00 mupirocin 2 1-0 No 1% % topical 4-09 ointment 00:00: 00 mupirocin 2 1-0 No 1% % topical 4-09 ointment 00:00: 00 clotrimazol 2021-0 No 1% e 1 % 4-09 topical 00:00: cream 00 Diflucan 1-0 No 1mg 150 mg 4-09 tablet 00:00: 00 clotrimazol 2021-0 No 1% e 1 % 4-09 topical 00:00: cream 00 Diflucan 2021-0 No 1mg 150 mg 4-09 tablet 00:00: 00 mupirocin 2 1-0 No 1% % topical 4-09 ointment 00:00: 00 clotrimazol 1-0 No 1% e 1 % 4-09 topical 00:00: cream 00 Diflucan 2021-0 No 1mg 150 mg 4-09 tablet 00:00: 00 mupirocin 2 2021-0 No 1% % topical 4-09 ointment 00:00: 00 clotrimazol 2021-0 No 1% e 1 % 4-09 topical 00:00: cream 00 Diflucan 2021-0 No 1mg 150 mg 4-09 tablet 00:00: 00 No known No Univers medications [facility] No known No Univers medications [facility] No known No Univers medications [facility] No known No Univers medications [facility] Immunizations Ordered Filled Immunization Date Status Comments [facility] e Immunization Name Name SARS-COV-2 COVID-19 2020-12-02 Completed Unive rsity of PFIZER VACCINE 00:00:00 [facility] SARS-COV-2 COVID-19 2020-12-02 Completed Unive rsity of PFIZER VACCINE 00:00:00 [facility] SARS-COV-2 COVID-19 2020-12-02 Completed Unive rsity of PFIZER VACCINE 00:00:00 [facility] SARS-COV-2 COVID-19 2020-12-02 Completed Unive rsity of PFIZER VACCINE 00:00:00 [facility] SARS-COV-2 COVID-19 2020-12-02 Completed Unive rsity of PFIZER VACCINE 00:00:00 [facility] SARS-COV-2 COVID-19 2020-12-02 Completed Unive rsity of PFIZER VACCINE 00:00:00 [facility] SARS-COV-2 COVID-19 2020-12-02 Completed Unive rsity of PFIZER VACCINE 00:00:00 [facility] SARS-COV-2 COVID-19 2020-12-02 Completed Unive rsity of PFIZER VACCINE 00:00:00 [facility] SARS-COV-2 COVID-19 2020-12-02 Completed Unive rsity of PFIZER VACCINE 00:00:00 [facility] SARS-COV-2 COVID-19 2020-12-02 Completed Unive rsity of PFIZER VACCINE 00:00:00 [facility] SARS-COV-2 COVID-19 2020-12-02 Completed Unive rsity of PFIZER VACCINE 00:00:00 [facility] SARS-COV-2 COVID-19 2020-12-02 Completed Unive rsity of PFIZER VACCINE 00:00:00 [facility] SARS-COV-2 COVID-19 2020-12-02 Completed Unive rsity of PFIZER VACCINE 00:00:00 [facility] SARS-COV-2 COVID-19 2020-12-02 Completed Unive rsity of PFIZER VACCINE 00:00:00 [facility] SARS-COV-2 COVID-19 2020-11-09 Completed Unive rsity of PFIZER VACCINE 00:00:00 [facility] SARS-COV-2 COVID-19 2020-11-09 Completed Unive rsity of PFIZER VACCINE 00:00:00 [facility] SARS-COV-2 COVID-19 2020-11-09 Completed Unive rsity of PFIZER VACCINE 00:00:00 [facility] SARS-COV-2 COVID-19 2020-11-09 Completed Unive rsity of PFIZER VACCINE 00:00:00 [facility] SARS-COV-2 COVID-19 2020-11-09 Completed Unive rsity of PFIZER VACCINE 00:00:00 [facility] SARS-COV-2 COVID-19 2020-11-09 Completed Unive rsity of PFIZER VACCINE 00:00:00 [facility] SARS-COV-2 COVID-19 2020-11-09 Completed Unive rsity of PFIZER VACCINE 00:00:00 [facility] SARS-COV-2 COVID-19 2020-11-09 Completed Unive rsity of PFIZER VACCINE 00:00:00 [facility] SARS-COV-2 COVID-19 2020-11-09 Completed Unive rsity of PFIZER VACCINE 00:00:00 [facility] SARS-COV-2 COVID-19 2020-11-09 Completed Unive rsity of PFIZER VACCINE 00:00:00 [facility] SARS-COV-2 COVID-19 2020-11-09 Completed Unive rsity of PFIZER VACCINE 00:00:00 [facility] SARS-COV-2 COVID-19 2020-11-09 Completed Unive rsity of PFIZER VACCINE 00:00:00 [facility] SARS-COV-2 COVID-19 2020-11-09 Completed Unive rsity of PFIZER VACCINE 00:00:00 [facility] SARS-COV-2 COVID-19 2020-11-09 Completed Unive rsity of PFIZER VACCINE 00:00:00 [facility] Vital Signs Vital Name Observation Time Observation Value Comments Source Heart rate 2021-07-27 21:30:00 62 /min [facility] Respiratory rate 2021-07-27 21:30:00 22 /min [facility] in 2021-07-27 21:30:00 95 /min [facility] Arterial blood by [facility] Pulse oximetry Branch Systolic blood 2021-07-27 21:25:00 137 mm[Hg] Univer sity of pressure [facility] Diastolic blood 2021-07-27 21:25:00 77 mm[Hg] Unive rsity of pressure [facility] Body temperature 2021-07-27 18:35:24 36.78 Cele Univ ersity of [facility] Body height 2021-07-27 18:02:00 147.3 cm Universi ty of [facility] Body weight 2021-07-27 18:02:00 124.739 kg [facility]i ty [facility] [place] [facility] BMI 2021-07-27 18:02:00 57.48 kg/m2 [facility] [place] [facility] Systolic blood 2021-06-25 05:00:00 134 mm[Hg] Univer sity of pressure [place] [facility] Diastolic blood 2021-06-25 05:00:00 60 mm[Hg] Unive rsity of [facility] Heart rate 2021-06-25 05:00:00 78 /min Universi ty [facility] [place] [facility] Respiratory rate 2021-06-25 05:00:00 27 /min Univ ersity of [facility] Oxygen saturation in 2021-06-25 05:00:00 97 /min University of Arterial blood by [facility] Pulse oximetry Branch Body temperature 2021-06-25 04:16:00 36.94 Cele [facility] ers[facility] of [place] [facility] [place] Body height 2021-06-25 04:16:00 147.3 cm [facility] [place] [facility] [place] Body weight 2021-06-25 04:16:00 127.007 kg [facility] [place] [facility] BMI 2021-06-25 04:16:00 58.52 kg/m2 [facility] [place] [facility] Systolic blood 2021-02-17 19:29:00 124 mm[Hg] Univer sity of pressure [facility] Diastolic blood 2021-02-17 19:29:00 88 mm[Hg] Unive rsity of pressure [facility] Heart rate 2021-02-17 19:29:00 89 /min [facility]i ty [facility] [place] [facility] Respiratory rate 2021-02-17 19:29:00 18 /min Univ ersity of [place] [facility] Body weight 2021-02-17 19:29:00 126.281 kg [facility]i [facility] [place] [facility] BMI 2021-02-17 19:29:00 56.23 kg/m2 [facility] [place] [facility] Systolic blood 2021-01-05 19:16:00 132 mm[Hg] Univer sity of pressure [facility] Diastolic blood 2021-01-05 19:16:00 88 mm[Hg] Unive rsity of pressure [facility] Heart rate 2021-01-05 19:16:00 89 /min Universi ty [facility] Body temperature 2021-01-05 19:16:00 37.28 Cele Univ ersity of [facility] Respiratory rate 2021-01-05 19:16:00 18 /min Univ ersity of [place] [facility] Body height 2021-01-05 19:16:00 149.9 cm [facility]i [facility] Body weight 2021-01-05 19:16:00 125.51 kg [facility]i [facility] BMI 2021-01-05 19:16:00 55.89 kg/m2 [facility] [place] [facility] Systolic blood 2020-12-07 19:42:00 124 mm[Hg] Univer sity of pressure [facility] Diastolic blood 2020-12-07 19:42:00 86 mm[Hg] Unive rsity of pressure [facility] Heart rate 2020-12-07 19:42:00 89 /min [facility]i ty [facility] Respiratory rate 2020-12-07 19:42:00 19 /min Univ ersity of [facility] Body height 2020-12-07 19:42:00 152.4 cm [facility] Body weight 2020-12-07 19:42:00 127.551 kg [facility] BMI 2020-12-07 19:42:00 54.92 kg/m2 [facility] [place] [facility] BP Systolic 2022-08-30 11:27:00 120 mm[Hg] BP Diastolic 2022-08-30 11:27:00 76 mm[Hg] Weight Measured 2022-08-30 11:27:00 300.80 pounds Height Measured 2022-08-30 11:27:00 60.16 inches Body Temperature 2022-08-30 11:27:00 98.30 degrees Heart Rate 2022-08-30 11:27:00 89.00 /min Respiratory Rate 2022-08-30 11:27:00 18.00 /min BP Systolic 2022-06-29 15:49:00 129 mm[Hg] BP Diastolic 2022-06-29 15:49:00 87 mm[Hg] Weight Measured 2022-06-29 15:49:00 291.80 pounds Height Measured 2022-06-29 15:49:00 60.16 inches Body Temperature 2022-06-29 15:49:00 97.60 degrees Heart Rate 2022-06-29 15:49:00 90.00 /min Respiratory Rate 2022-06-29 15:49:00 18.00 /min BP Systolic 2022-06-08 14:41:00 BP Diastolic 2022-06-08 14:41:00 Weight Measured 2022-06-08 14:41:00 287.00 pounds Height Measured 2022-06-08 14:41:00 60.16 inches Body Temperature 2022-06-08 14:41:00 Heart Rate 2022-06-08 14:41:00 Respiratory Rate 2022-06-08 14:41:00 BP Systolic 2022-04-27 15:01:00 128 mm[Hg] BP Diastolic 2022-04-27 15:01:00 82 mm[Hg] Weight Measured 2022-04-27 15:01:00 289.00 pounds Height Measured 2022-04-27 15:01:00 60.16 inches Body Temperature 2022-04-27 15:01:00 98.20 degrees Heart Rate 2022-04-27 15:01:00 108.00 /min Respiratory Rate 2022-04-27 15:01:00 18.00 /min BP Systolic 2022-03-02 14:40:00 128 mm[Hg] BP [...] Procedure Date / Time Performed Performing Clinician [facility] e TROPONIN I 2021-07-27 20:28:00 Siddharth [facility] D-DIMER 2021-07-27 20:27:00 Siddharth [facility] XR CHEST 1 VW 2021-07-27 19:38:35 Siddharth [facility] POCT TEST 2021-07-27 18:28:00 Yamil [facility] URINALYSIS 2021-07-27 18:26:00 Yamil [place] [facility] MAGNESIUM 2021-07-27 18:06:00 Siddharth [facility] TROPONIN I 2021-07-27 18:06:00 Siddharth [facility] COMP. METABOLIC PANEL 2021-07-27 18:06:00 Yamil Phoenix [facility] ([id number]) [facility] CBC WITH DIFF 2021-07-27 18:06:00 [address] [facility] CT HEAD WO CONTRAST 2021-06-25 05:12:41 Yoon [facility] NOTICE OF PRIVACY 2021-06-25 04:02:52 Doctor Unassigned, No [facility]REFUSAL FOR 2021-06-25 04:01:22 [facility] Branch TREATMENT DISCLOSURE AND 2021-01-06 05:01:00 Doctor Unassigned, No [facility] CONSENT, MEDICAL AND Name Medical [facility] SURGICAL PROCEDURES POCT TEST 2021-01-05 19:26:00 Villanueva, Lucy [facility] POCT TEST 2020-12-07 20:47:00 Fern Moctezuma [facility] ASSIGNMENT OF BENEFITS 2020-12-07 19:26:29 Doctor Unassigned, No [facility] Plan of Care Planned Activity Planned Date Details Comments Source Goal Plan of Care Note [code = 66407-9] Goal Plan of Care Note [code = 46418-7] Goal Plan of Care Note [code = 28943-5] Goal Plan of Care Note [code = 12653-4] Goal Plan of Care Note [code = 60393-7] Goal Plan of Care Note [code = 14531-9] Goal Plan of Care Note [code = 88130-5] Goal Plan of Care Note [code = 25063-5] Goal Plan of Care Note [code = 11861-1] Goal Plan of Care Note [code = 36904-3] Goal Plan of Care Note [code = 75667-0] Goal Plan of Care Note [code = 64243-3] Goal Plan of Care Note [code = 69691-0] Goal Plan of Care Note [code = 66269-1] Goal Plan of Care Note [code = 14972-9] Goal Plan of Care Note [code = 46703-6] Goal Plan of Care Note [code = 19218-5] Goal Plan of Care Note [code = 01484-6] Goal Plan of Care Note [code = 66574-2] Goal Plan of Care Note [code = 15687-0] Goal Plan of Care Note [code = 02494-6] Goal Plan of Care Note [code = 38248-1] Goal Plan of Care Note [code = 04358-7] Goal Plan of Care Note [code = 06562-7] Goal Plan of Care Note [code = 98006-3] Goal Plan of Care Note [code = 30027-4] Goal Plan of Care Note [code = 02593-3] Goal Plan of Care Note [code = 03883-7] Goal Plan of Care Note [code = 85446-1] Goal Plan of Care Note [code = 24588-6] Goal Plan of Care Note [code = 69312-2] Goal Plan of Care Note [code = 00186-7] Goal Plan of Care Note [code = 88385-5] Goal Plan of Care Note [code = 13507-5] Goal Plan of Care Note [code = 99174-3] Goal Plan of Care Note [code = 71937-4] Goal Plan of Care Note [code = 19977-1] Goal Plan of Care Note [code = 80094-6] Goal Plan of Care Note [code = 36359-9] Goal Plan of Care Note [code = 74329-6] Goal Plan of Care Note [code = 85861-7] Goal Plan of Care Note [code = 68697-0] Goal Plan of Care Note [code = 17777-4] Goal Plan of Care Note [code = 81261-6] Goal Plan of Care Note [code = 67653-5] Goal Plan of Care Note [code = 78683-0] Goal Plan of Care Note [code = 04586-5] Goal Plan of Care Note [code = 47476-0] Goal Plan of Care Note [code = 45676-9] Goal Plan of Care Note [code = 75474-1] Goal Plan of Care Note [code = 42790-5] Goal Plan of Care Note [code = 42801-8] Goal Plan of Care Note [code = 79497-9] Goal Plan of Care Note [code = 16239-3] Goal Plan of Care Note [code = 29258-4] Goal Plan of Care Note [code = 53097-2] Goal Plan of Care Note [code = 44795-7] Goal Plan of Care Note [code = 87107-0] Goal Plan of Care Note [code = 20656-6] Goal Plan of Care Note [code = 97530-8] Goal Plan of Care Note [code = 79134-4] Goal Plan of Care Note [code = 62515-5] Goal Plan of Care Note [code = 83672-1] Goal Plan of Care Note [code = 10455-5] Goal Plan of Care Note [code = 25234-7] Goal Plan of Care Note [code = 43187-1] Goal Plan of Care Note [code = 30770-0] Goal Plan of Care Note [code = 03515-2] Goal Plan of Care Note [code = 12648-8] Goal Plan of Care Note [code = 85367-4] Goal Plan of Care Note [code = 20124-9] Goal Plan of Care Note [code = 30320-4] Goal Plan of Care Note [code = 27269-1] Goal Plan of Care Note [code = 56899-6] Goal Plan of Care Note [code = 07440-4] Goal Plan of Care Note [code = 96143-5] Goal Plan of Care Note [code = 44758-5] Goal Plan of Care Note [code = 18640-4] Goal Plan of Care Note [code = 57765-8] Goal Plan of Care Note [code = 06773-4] Goal Plan of Care Note [code = 65400-7] Goal Plan of Care Note [code = 27643-9] Goal Plan of Care Note [code = 58463-3] Goal Plan of Care Note [code = 52134-1] Goal Plan of Care Note [code = 87116-4] Goal Plan of Care Note [code = 60510-9] Goal Plan of Care Note [code = 38007-3] Goal Plan of Care Note [code = 69944-2] Goal Plan of Care Note [code = 18934-0] Goal Plan of Care Note [code = 09573-4] Goal Plan of Care Note [code = 21382-3] Goal Plan of Care Note [code = 89966-8] Goal Plan of Care Note [code = 75823-1] Goal Plan of Care Note [code = 57803-3] Goal Plan of Care Note [code = 19992-5] Goal Plan of Care Note [code = 06179-7] Goal Plan of Care Note [code = 61018-0] Goal Plan of Care Note [code = 40951-1] Goal Plan of Care Note [code = 17236-4] Goal Plan of Care Note [code = 53537-5] Goal Plan of Care Note [code = 85598-6] Goal Plan of Care Note [code = 77985-8] Goal Plan of Care Note [code = 51161-3] Goal Plan of Care Note [code = 07746-2] Goal Plan of Care Note [code = 42128-2] Goal Plan of Care Note [code = 83843-9] Goal Plan of Care Note [code = 77952-0] Goal Plan of Care Note [code = 42082-0] Goal Plan of Care Note [code = 79058-2] Goal Plan of Care Note [code = 08062-5] Goal Plan of Care Note [code = 26418-4] Goal Plan of Care Note [code = 27106-2] Goal Plan of Care Note [code = 75548-7] Goal Plan of Care Note [code = 67816-7] Goal Plan of Care Note [code = 39724-9] Goal Plan of Care Note [code = 22585-7] Goal Plan of Care Note [code = 66098-7] Goal Plan of Care Note [code = 94884-1] Goal Plan of Care Note [code = 24526-1] Goal Plan of Care Note [code = 81288-1] Goal Plan of Care Note [code = 32851-7] Goal Plan of Care Note [code = 55481-8] Goal Plan of Care Note [code = 42872-3] Goal Plan of Care Note [code = 97981-0] Goal Plan of Care Note [code = 52571-5] Goal Plan of Care Note [code = 53725-2] Goal Plan of Care Note [code = 50144-2] Goal Plan of Care Note [code = 45329-1] Goal Plan of Care Note [code = 59670-3] Goal Plan of Care Note [code = 86235-1] Goal Plan of Care Note [code = 10917-4] Goal Plan of Care Note [code = 82959-7] Goal Plan of Care Note [code = 55328-3] Goal Plan of Care Note [code = 17451-8] Goal Plan of Care Note [code = 71310-9] Goal Plan of Care Note [code = 54721-9] Goal Plan of Care Note [code = 29006-7] Goal Plan of Care Note [code = 53051-6] Goal Plan of Care Note [code = 03711-8] Goal Plan of Care Note [code = 84588-2] Goal Plan of Care Note [code = 91623-7] Goal Plan of Care Note [code = 86227-1] Goal Plan of Care Note [code = 78754-7] Goal Plan of Care Note [code = 77058-7] Goal Plan of Care Note [code = 41174-1] Goal Plan of Care Note [code = 64156-6] Goal Plan of Care Note [code = 95647-7] Goal Plan of Care Note [code = 65602-0] Goal Plan of Care Note [code = 07578-2] Goal Plan of Care Note [code = 74050-0] Goal Plan of Care Note [code = 53128-5] Goal Plan of Care Note [code = 53723-7] Goal Plan of Care Note [code = 53290-1] Goal Plan of Care Note [code = 42789-1] Goal Plan of Care Note [code = 12625-0] Goal Plan of Care Note [code = 81780-8] Goal Plan of Care Note [code = 08174-0] Encounters Start End Encounter Admission Attending Care Care Encounter Source Date/Time Date/Time Type Type Clinicians Facility Department ID 2022-10-20 2022-10-20 Outpatient SFA SFA [id number]- Georgi 11:25:26 11:25:26 [id number] F Altair 2022-10-19 2022-10-19 Outpatient SFA SFA [id number]- 202 Georgi 14:02:23 14:02:23 [id number] F Altair 2022-10-09 2022-10-09 Outpatient SFA SFA 626135- Georgi 10:08:28 10:08:28 83711 F Altair 2022-09-21 2022-09-21 Outpatient SFA SFA [id number]- Georgi 11:54:36 11:54:36 [id number] F Altair 2022-09-15 2022-09-15 Outpatient SFA SFA [id number]- Georgi 11:33:15 11:33:15 [id number] F Altair 2022-09-08 2022-09-08 Outpatient SFA SFA [id number]- Georgi 10:49:58 10:49:58 62084 F Altair 2022-09-07 2022-09-07 Outpatient SFA SFA [id number]- Georgi 15:51:56 15:51:56 [id number] F Altair 2022-09-05 2022-09-05 Outpatient SFA SFA [id number]- Georgi 10:47:25 10:47:25 [id number] F Altair 2022-09-04 2022-09-04 Outpatient SFA SFA [id number]- 202 Georgi 11:21:25 11:21:25 [id number] F Altair 2022-08-30 2022-08-30 Outpatient SFA SFA [id number]- 202 Georgi 15:33:51 15:33:51 [id number] F Altair 2022-08-30 2022-08-30 Outpatient [id number]- [id number] b1 521ne2-4 00:00:00 00:00:00 Visit 3485-45fb 485-45fb-8 -8adf-9d4 adf-9d42c4 6k3fn79m3 aa65e7 2022-08-25 2022-08-25 Outpatient SFA SFA 000490- 202 Georgi 10:13:30 10:13:30 [id number] F Rhett 2022-08-11 2022-08-11 Outpatient SFA SFA [id number]- Georgi 09:20:54 09:20:54 [id number] F Rhett 2022-07-28 2022-07-28 Outpatient SFA SFA [id number]- Georgi 11:30:57 11:30:57 [id number] F Rhett 2022-07-14 2022-07-14 Outpatient SFA SFA [id number]- Georgi 11:31:56 11:31:56 [id number] F Altair 2022-06-29 2022-06-29 Outpatient SFA SFA [id number]- Georgi 15:28:07 15:28:07 [id number] F Rhett 2022-06-29 2022-06-29 Outpatient 78wz13i0- [id number] tv12j0-1 00:00:00 00:00:00 Visit 0088-44b4 088-44b4-8 -8443-99f 443-99fcb6 ll4o90os3 b36be4 2022-06-16 2022-06-16 Outpatient SFA SFA [id number]- Georgi 11:17:33 11:17:33 [id number] [facility] 2022-06-15 2022-06-15 Outpatient SFA SFA [id number]- Georgi 09:41:11 09:41:11 [id number] [facility] 2022-06-08 2022-06-08 Outpatient 99vznlf3- [id number] bfdee4-1 00:00:00 00:00:00 Visit 1155-48b2 155-48b2-b -eu0q-co8 g4b-cq0e7b a8o2620aj 7966fb 2022-04-27 2022-04-27 Outpatient 3nmus6ih- [id number] 1b hjw5ic-9 00:00:00 00:00:00 Visit 99r6-63v4 2j1-39v4-b -bd34-10j c22-86zg75 t03rj1k1u ab5d1b 2022-03-02 2022-03-02 Outpatient [id number]- [id number] d6 j17543-g 00:00:00 00:00:00 Visit xl10-3w43 s16-1q15-7 -926c-c29 26c-c29a66 s3938j562 65i423 2021-07-27 2021-07-27 Emergency X Yamil [facility] ERT [id number] Univers 11:56:00 15:42:00 ity of [facility] 2021-07-27 2021-07-27 Emergency Yamil [facility] 1.2.840.114 [id number] Univers 11:56:00 15:42:00 Carmen TAPIA 350.1.13.10 i ty of [place] 4.2.7.2.686 [facility] [phone] [facility] [address] 2021-06-24 2021-06-24 Emergency X [facility] ERT [id number] Univers 22:06:00 23:54:00 KATHILI ity of [facility] 2021-06-24 2021-06-24 [facility] [id number] Univers 22:06:00 23:54:00 [facility] WILLIE 350.1.13.10 ity of [place] 4.2.7.2.686 [facility] [phone] [facility] [address] 2021-06-24 2021-06-24 Orders Doctor BELTRAN 1.2.840.114 [id number] Univers 00:00:00 00:00:00 Only Unassigned, MILTON 350.1.13.[address] [facility] 4.2.7.2.686 [facility] [phone] [facility] [address] Branch 2021-02-17 2021-02-17 Office Pgy2 UNIVERSIT 1.2.867.959 [id number] Univers 14:13:58 15:19:24 Visit Marques Mansfield W Y HEALTH 350.1.13.10 [id number] [address] 2021-02-17 2021-02-17 Outpatient R [facility] [id number] Univers 14:00:00 14:00:00 ity of [facility] 2021-01-06 2021-01-06 Orders Doctor BELTRAN 1.2.840.114 [id number] Univers 00:00:00 00:00:00 Only Unassigned, MILTON 350.1.13.10 ity of [place] [facility] 4.2.7.2.686 [place] [id number] 2021-01-05 2021-01-05 Office Pool, [facility] Resident UNIVERSIT 1.2.8 40.114 [id number] Univers 13:58:29 16:19:12 Visit Donald Villanuevay Y HEALTH 350.1.13.10 [place] [id number] [address] 2021-01-05 2021-01-05 Outpatient R [facility] [id number] Univers 14:15:00 14:15:00 ity of [facility] 2020-12-10 2020-12-10 Telephone Silvestre YOO 1.2.840.11 [id number] Univers 00:00:00 00:00:00 [facility], Y HEALTH 350.1.13.10 i ty of [place] [phone] [address] 2020-12-07 2020-12-07 Office [place], [facility] Resident UNIVERSIT 1.2.8 40.114 [id number] Univers 14:35:42 16:30:20 Visit Jeanette Henley Y HEALTH 350.1.13.10 [place] [id number] [address] 2020-12-07 2020-12-07 [facility] [id number] Univers 14:30:00 14:30:00 JEANETTE ity of [facility] 2020-12-07 2020-12-07 Orders Doctor BELTRAN 1.2.840.114 [id number] Univers 00:00:00 00:00:00 Only Unassigned, MILTON 350.1.13.10 ity of [place] [facility] 4.2.7.2.686 [place] [id number] 2020-12-02 2020-12-02 Outpatient R HARVEY [facility] [id number] Univers 14:05:00 14:05:00 BEBE ity of [facility] Results Test Description Test Time Test Comments Results Result Comments Source COMPREHENSIVE METABOLIC PANEL 2022-09-09 07:39:28 Test Item Value Reference Range Interpretation Comme nts GLUCOSE (test code = 2216) 112 MG/DL 70-99 H BUN (test code = 2207) 14 MG/DL 6-20 CREATININE (test code = 0.79 MG/DL 0.60-1.30 2213) eGFR (2020 CKD-EPI) (test 101 ML/MIN/1.73 >60 code = 58258) CALC BUN/CREAT (test code = 18 RATIO 02-07) SODIUM (test code = 223) 140 MEQ/L 133-146 POTASSIUM (test code = 3.8 MEQ/L 3.5-5.4 2227) CHLORIDE (test code = 221) 101 MEQ/L 95-107 CARBON DIOXIDE (test code = 24 MEQ/L 2205) CALCIUM (test code = 2209) 9.7 MG/DL 8.5-10.5 PROTEIN, TOTAL (test code = 6.7 G/DL 6.1-8.3 2228) ALBUMIN (test code = 220) 4.1 G/DL 3.5-5.2 CALC GLOBULIN (test code = 2.6 G/DL 1.9-3.7 2239) CALC A/G RATIO (test code = 1.6 RATIO 1.0-2.6 2233) BILIRUBIN, TOTAL (test code <0.2 MG/DL See_Comment [Automated message] The = 2206) system which ge nerated this result transmit kenzie reference range: <=1.2. T he reference range was not u sed to interpret this result as normal/abnormal . ALKALINE PHOSPHATASE (test 80 U/L 40-114 code = 2204) AST (test code = 2218) 22 U/L 9-40 ALT (test code = 2219) 24 U/L 5-40 UNLE SS OTHERWISE INDICATED, ALL TESTING PER FORMED ATCLINICAL PATH OLOGY LABORATORIES, [facility]. [address] [place] [address] 7 [phone] LABORATORY DIRE CTOR: Feliciano LONGIA NUMBER [id number] CAP ACCREDITATION N O. [id number] HEMOGLOBIN [id number] 04:57:47 Test Item Value Reference Range Interpretation Comments HEMOGLOBIN A1c (test code = 80906) 6.1 % 4.2-5.6 H TSH, THIRD [id number] 03:25:48 Test Item Value Reference Range Interpretation Comments TSH, THIRD 2.310 UIU/ML 0.400-4.100 UNLESS OTHERWI SE GENERATION (test INDICATED, ALL TESTING code = 2821) PERFORMED [facility] PATHOLOGY LABORATORIES, [facility]. [address] [place] [address] [facility] DIRECTOR: EDVIN BENSON M.D. CLIA NUMBER [id number] CAP ACCREDITATION N O. [id number] TSH, THIRD [id number] 00:00:00 Test Item Value Reference Range Interpretation Comments TSH, THIRD GENERATION (test code 2.310 UIU/ML = 2821) TSH, THIRD [id number] 00:00:00 Test Item Value Reference Range Interpretation Comments TSH, THIRD GENERATION (test code 2.310 UIU/ML = 2821) TSH, THIRD [id number] 00:00:00 Test Item Value Reference Range Interpretation Comments TSH, THIRD GENERATION (test code 2.310 UIU/ML = 2821) [id number] 00:00:00 Test Item Value Reference Range Interpretation Comments 17-HYDROXYPROGESTERONE (test code = 45 ng/dL 4304) 37-[id number] 00:00:00 Test Item Value Reference Range Interpretation Comments 17-HYDROXYPROGESTERONE (test code = 45 ng/dL 4304) 27-[id number] 00:00:00 Test Item Value Reference Range Interpretation Comments 17-HYDROXYPROGESTERONE (test code = 45 ng/dL 4304) 82-[id number] 00:00:00 Test Item Value Reference Range Interpretation Comments 17-HYDROXYPROGESTERONE (test code = 45 ng/dL 4304) FSH + LH [id number] 00:00:00 Test Item Value Reference Range Interpretation Comments FOLLICLE STIM HORMONE (test code = 4.3 IU/L 2700) LUTEINIZING HORMONE (test code = 15.6 IU/L 2776) FSH + LH [id number] 00:00:00 Test Item Value Reference Range Interpretation Comments FOLLICLE STIM HORMONE (test code = 4.3 IU/L 2700) LUTEINIZING HORMONE (test code = 15.6 IU/L 2776) [id number] 00:00:00 Test Item Value Reference Range Interpretation Comments PROLACTIN (test code = 2800) 17.7 NG/ML [id number] 00:00:00 Test Item Value Reference Range Interpretation Comments PROLACTIN (test code = 2800) 17.7 NG/ML TSH, THIRD [id number] 00:00:00 Test Item Value Reference Range Interpretation Comments TSH, THIRD GENERATION (test code 1.790 UIU/ML = 2821) TSH, THIRD [id number] 00:00:00 Test Item Value Reference Range Interpretation Comments TSH, THIRD GENERATION (test code 1.790 UIU/ML = 2821) TSH, THIRD [id number] 00:00:00 Test Item Value Reference Range Interpretation Comments TSH, THIRD GENERATION (test code 1.790 UIU/ML = 2821) FSH + LH [id number] 00:00:00 Test Item Value Reference Range Interpretation Comments FOLLICLE STIM HORMONE (test code = 4.3 IU/L 2700) LUTEINIZING HORMONE (test code = 15.6 IU/L 2776) FSH + LH [id number] 00:00:00 Test Item Value Reference Range Interpretation Comments FOLLICLE STIM HORMONE (test code = 4.3 IU/L 2700) LUTEINIZING HORMONE (test code = 15.6 IU/L 2776) [id number] 00:00:00 Test Item Value Reference Range Interpretation Comments PROLACTIN (test code = 2800) 17.7 NG/ML [id number] 00:00:00 Test Item Value Reference Range Interpretation Comments PROLACTIN (test code = 2800) 17.7 NG/ML TSH, THIRD [id number] 00:00:00 Test Item Value Reference Range Interpretation Comments TSH, THIRD GENERATION (test code 1.790 UIU/ML = 2821) TSH, THIRD [id number] 00:00:00 Test Item Value Reference Range Interpretation Comments TSH, THIRD GENERATION (test code 1.790 UIU/ML = 2821) TSH, THIRD [id number] 00:00:00 Test Item Value Reference Range Interpretation Comments TSH, THIRD GENERATION (test code 1.790 UIU/ML = 2821) TSH, THIRD [id number] 04:06:28 Test Item Value Reference Range Interpretation Comments TSH, THIRD 4.000 UIU/ML 0.400-4.100 UNLESS OTHERWI SE GENERATION (test INDICATED, ALL TESTING code = 2821) PERFORMED [facility] PATHOLOGY [facility] [address] [place] [address] [facility] DIRECTOR: EDVIN BENSON M.D. CLIA NUMBER [id number] 03 [facility] ACCREDITATION N O. [id number] TSH, THIRD [id number] 00:00:00 Test Item Value Reference Range Interpretation Comments TSH, THIRD GENERATION (test code 4.000 UIU/ML = 2821) TSH, THIRD [id number] 00:00:00 Test Item Value Reference Range Interpretation Comments TSH, THIRD GENERATION (test code 4.000 UIU/ML = 2821) TSH, THIRD [id number] 00:00:00 Test Item Value Reference Range Interpretation Comments TSH, THIRD GENERATION (test code 4.000 UIU/ML = 2821) TSH, THIRD [id number] 00:00:00 Test Item Value Reference Range Interpretation Comments TSH, THIRD GENERATION (test code 4.000 UIU/ML = 2821) TSH, THIRD [id number] 00:00:00 Test Item Value Reference Range Interpretation Comments TSH, THIRD GENERATION (test code 4.000 UIU/ML = 2821) TSH, THIRD [id number] 00:00:00 Test Item Value Reference Range Interpretation Comments TSH, THIRD GENERATION (test code 4.000 UIU/ML = 2821) TSH, THIRD [id number] 00:00:00 Test Item Value Reference Range Interpretation Comments TSH, THIRD GENERATION (test code 4.000 UIU/ML = 2821) TSH, THIRD [id number] 00:00:00 Test Item Value Reference Range Interpretation Comments TSH, THIRD GENERATION (test code 4.000 UIU/ML = 2821) TSH, THIRD [id number] 00:00:00 Test Item Value Reference Range Interpretation Comments TSH, THIRD GENERATION (test code 4.000 UIU/ML = 2821) TSH, THIRD [id number] 09:09:54 Test Item Value Reference Range Interpretation Comments TSH, THIRD 9.840 UIU/ML 0.400-4.100 H UNLESS OTHERWI SE GENERATION (test INDICATED, ALL TESTING code = 2821) PERFORMED [facility] PATHOLOGY [facility], [facility] [address] [place] [address] [facility] DIRECTOR: EDVIN BENSON M.D. CLIA NUMBER [id number] 03 [facility] ACCREDITATION N O. [id number] 00:00:00 Test Item Value Reference Range Interpretation Comments TSH, THIRD GENERATION (test code 9.840 UIU/ML = 2821) [id number] 00:00:00 Test Item Value Reference Range Interpretation Comments TSH, THIRD GENERATION (test code 9.840 UIU/ML = 2821) [id number] 00:00:00 Test Item Value Reference Range Interpretation Comments TSH, THIRD GENERATION (test code 9.840 UIU/ML = 2821) [id number] 00:00:00 Test Item Value Reference Range Interpretation Comments TSH, THIRD GENERATION (test code 9.840 UIU/ML = 2821) [id number] 00:00:00 Test Item Value Reference Range Interpretation Comments TSH, THIRD GENERATION (test code 9.840 UIU/ML = 2821) [id number] 00:00:00 Test Item Value Reference Range Interpretation Comments TSH, THIRD GENERATION (test code 9.840 UIU/ML = 2821) [id number] 00:00:00 Test Item Value Reference Range Interpretation Comments TSH, THIRD GENERATION (test code 9.840 UIU/ML = 2821) [id number] 00:00:00 Test Item Value Reference Range Interpretation Comments TSH, THIRD GENERATION (test code 9.840 UIU/ML = 2821) [id number] 00:00:00 Test Item Value Reference Range Interpretation Comments TSH, THIRD GENERATION (test code 9.840 UIU/ML = 2821) [id number] 00:00:00 Test Item Value Reference Range Interpretation Comments TSH, THIRD GENERATION (test code 9.840 UIU/ML = 2821) [id number] 00:00:00 Test Item Value Reference Range Interpretation Comments TSH, THIRD GENERATION (test code 9.840 UIU/ML = 2821) [id number] 00:00:00 Test Item Value Reference Range Interpretation Comments TSH, THIRD GENERATION (test code 9.840 UIU/ML = 2821) [id number] 00:00:00 Test Item Value Reference Range Interpretation Comments TSH, THIRD GENERATION (test code 9.840 UIU/ML = 2821) [id number] 00:00:00 Test Item Value Reference Range Interpretation Comments TSH, THIRD GENERATION (test code 9.840 UIU/ML = 2821) TSH, THIRD [id number] 05:03:02 Test Item Value Reference Range Interpretation Comments TSH, THIRD 7.050 UIU/ML 0.400-4.100 H UNLESS OTHERWI SE GENERATION (test INDICATED, ALL TESTING code = 2821) PERFORMED [facility] PATHOLOGY [facility] [address] [place] [address] [facility] DIRECTOR: EDVIN BENSON M.D. CLIA NUMBER [id number] [facility] ACCREDITATION N O. [id number] 00:00:00 Test Item Value Reference Range Interpretation Comments TSH, THIRD GENERATION (test code 7.050 UIU/ML = 2821) [id number] 00:00:00 Test Item Value Reference Range Interpretation Comments TSH, THIRD GENERATION (test code 7.050 UIU/ML = 2821) [id number] 00:00:00 Test Item Value Reference Range Interpretation Comments TSH, THIRD GENERATION (test code 7.050 UIU/ML = 2821) [id number] 00:00:00 Test Item Value Reference Range Interpretation Comments TSH, THIRD GENERATION (test code 7.050 UIU/ML = 2821) [id number] 00:00:00 Test Item Value Reference Range Interpretation Comments TSH, THIRD GENERATION (test code 7.050 UIU/ML = 2821) [id number] 00:00:00 Test Item Value Reference Range Interpretation Comments TSH, THIRD GENERATION (test code 7.050 UIU/ML = 2821) [id number] 00:00:00 Test Item Value Reference Range Interpretation Comments TSH, THIRD GENERATION (test code 7.050 UIU/ML = 2821) [id number] 00:00:00 Test Item Value Reference Range Interpretation Comments TSH, THIRD GENERATION (test code 7.050 UIU/ML = 2821) [id number] 00:00:00 Test Item Value Reference Range Interpretation Comments TSH, THIRD GENERATION (test code 7.050 UIU/ML = 2821) [id number] 00:00:00 Test Item Value Reference Range Interpretation Comments TSH, THIRD GENERATION (test code 7.050 UIU/ML = 2821) [id number] 00:00:00 Test Item Value Reference Range Interpretation Comments TSH, THIRD GENERATION (test code 7.050 UIU/ML = 2821) [id number] 00:00:00 Test Item Value Reference Range Interpretation Comments TSH, THIRD GENERATION (test code 7.050 UIU/ML = 2821) [id number] 00:00:00 Test Item Value Reference Range Interpretation Comments TSH, THIRD GENERATION (test code 7.050 UIU/ML = 2821) [id number] 00:00:00 Test Item Value Reference Range Interpretation Comments TSH, THIRD GENERATION (test code 7.050 UIU/ML = 2821) CBC W/AUTO DIFF WITH [id number] 03:06:39 Test Item Value Reference Range Interpretation [...] message] code = 1065) WBC'S The system [employer] generated this result transmitted ref erence range: [...] ABS NUCLEATED RBCS 0.00 K/UL 0.00-0.11 UNLESS OTHERWISE (test code = 17421) INDICATE D, ALL TESTING PERFORM ED ATCLINICAL PATH OLOGY LABORATORIES, [place]. [address] [place] [address] [facility] DIRECTOR: Edward LONGIA NUMBER [id number] CAP ACCREDITATION N O. [id number] CBC W/AUTO [id number] 00:00:00 Test Item Value Reference Range Interpretation [...] NUCLEATED RBCS (test code = 0.00 K/UL 17086) CBC W/AUTO [id number] 00:00:00 Test Item Value Reference Range Interpretation [...] NUCLEATED RBCS (test code = 0.00 K/UL 92262) CBC W/AUTO [id number] 00:00:00 Test Item Value Reference Range Interpretation [...] NUCLEATED RBCS (test code = 0.00 K/UL 88165) CBC W/AUTO [id number] 00:00:00 Test Item Value Reference Range Interpretation [...] NUCLEATED RBCS (test code = 0.00 K/UL 12409) CBC W/AUTO [id number] 00:00:00 Test Item Value Reference Range Interpretation [...] NUCLEATED RBCS (test code = 0.00 K/UL 78179) CBC W/AUTO [id number] 00:00:00 Test Item Value Reference Range Interpretation [...] NUCLEATED RBCS (test code = 0.00 K/UL 83078) CBC W/AUTO [id number] 00:00:00 Test Item Value Reference Range Interpretation [...] NUCLEATED RBCS (test code = 0.00 K/UL 91079) CBC W/AUTO [id number] 00:00:00 Test Item Value Reference Range Interpretation [...] NUCLEATED RBCS (test code = 0.00 K/UL 44917) CBC W/AUTO [id number] 00:00:00 Test Item Value Reference Range Interpretation [...] NUCLEATED RBCS (test code = 0.00 K/UL 62203) CBC W/AUTO [id number] 00:00:00 Test Item Value Reference Range Interpretation [...] NUCLEATED RBCS (test code = 0.00 K/UL 44061) CBC W/AUTO [id number] 00:00:00 Test Item Value Reference Range Interpretation [...] NUCLEATED RBCS (test code = 0.00 K/UL 40941) CBC W/AUTO [id number] 00:00:00 Test Item Value Reference Range Interpretation [...] NUCLEATED RBCS (test code = 0.00 K/UL 28412) CBC W/AUTO [id number] 00:00:00 Test Item Value Reference Range Interpretation [...] NUCLEATED RBCS (test code = 0.00 K/UL 06588) CBC W/AUTO [id number] 00:00:00 Test Item Value Reference Range Interpretation [...] NUCLEATED RBCS (test code = 0.00 K/UL 96410) CBC W/AUTO DIFF WITH [id number] 10:01:09 Test Item Value Reference Range Interpretation [...] RBCS TEST NOT 0.00-0.11 (test code = 09963) PERFORMED K/UL COMMENTS (test code = TEST NOT 1016) PERFORMED CBC W/AUTO [id number] 00:00:00 Test Item Value Reference Range Interpretation [...] RBCS (test TEST NOT PERFORMED code = 77323) K/UL COMMENTS (test code = TEST NOT PERFORMED 1016) CBC W/AUTO [id number] 00:00:00 Test Item Value Reference Range Interpretation [...] RBCS (test TEST NOT PERFORMED code = 57240) K/UL COMMENTS (test code = TEST NOT PERFORMED 1016) CBC W/AUTO [id number] 00:00:00 Test Item Value Reference Range Interpretation [...] RBCS (test TEST NOT PERFORMED code = 45146) K/UL COMMENTS (test code = TEST NOT PERFORMED 1016) CBC W/AUTO [id number] 00:00:00 Test Item Value Reference Range Interpretation [...] RBCS (test TEST NOT PERFORMED code = 45054) K/UL COMMENTS (test code = TEST NOT PERFORMED 1016) CBC W/AUTO [id number] 00:00:00 Test Item Value Reference Range Interpretation [...] RBCS (test TEST NOT PERFORMED code = 13234) K/UL COMMENTS (test code = TEST NOT PERFORMED 1016) CBC W/AUTO [id number] 00:00:00 Test Item Value Reference Range Interpretation [...] RBCS (test TEST NOT PERFORMED code = 15146) K/UL COMMENTS (test code = TEST NOT PERFORMED 1016) CBC W/AUTO [id number] 00:00:00 Test Item Value Reference Range Interpretation [...] RBCS (test TEST NOT PERFORMED code = 88337) K/UL COMMENTS (test code = TEST NOT PERFORMED 1016) CBC W/AUTO [id number] 00:00:00 Test Item Value Reference Range Interpretation [...] RBCS (test TEST NOT PERFORMED code = 63915) K/UL COMMENTS (test code = TEST NOT PERFORMED 1016) CBC W/AUTO [id number] 00:00:00 Test Item Value Reference Range Interpretation [...] RBCS (test TEST NOT PERFORMED code = 27727) K/UL COMMENTS (test code = TEST NOT PERFORMED 1016) CBC W/AUTO [id number] 00:00:00 Test Item Value Reference Range Interpretation [...] RBCS (test TEST NOT PERFORMED code = 95353) K/UL COMMENTS (test code = TEST NOT PERFORMED 1016) CBC W/AUTO [id number] 00:00:00 Test Item Value Reference Range Interpretation [...] RBCS (test TEST NOT PERFORMED code = 83845) K/UL COMMENTS (test code = TEST NOT PERFORMED 1016) CBC W/AUTO [id number] 00:00:00 Test Item Value Reference Range Interpretation [...] RBCS (test TEST NOT PERFORMED code = 61274) K/UL COMMENTS (test code = TEST NOT PERFORMED 1016) CBC W/AUTO [id number] 00:00:00 Test Item Value Reference Range Interpretation [...] RBCS (test TEST NOT PERFORMED code = 61871) K/UL COMMENTS (test code = TEST NOT PERFORMED 1016) CBC W/AUTO [id number] 00:00:00 Test Item Value Reference Range Interpretation [...] RBCS (test TEST NOT PERFORMED code = 13363) K/UL COMMENTS (test code = TEST NOT PERFORMED 1016) TSH, THIRD [id number] 06:29:33 Test Item Value Reference Range Interpretation Comments TSH, THIRD 7.090 UIU/ML 0.400-4.100 H UNLESS OTHERWI SE GENERATION (test INDICATED, ALL TESTING code = 2821) PERFORMED [facility], [facility]. [address] [place], [place] [id number] [place] [address] DIRECTOR: EDVIN BENSON M.D. [place] NUMBER [id number] CAP ACCREDITATION N O. [id number] LIPID [id number] 04:58:53 Test Item Value Reference Range Interpretation [...] MOREINFORMATION , SEE CLIENT ANNOUNCE MENT AT [email or web address] RISK RATIO LDL/HDL 3.57 RATIO <3.22 H (test code = 2238) COMPREHENSIVE METABOLIC [id number] 04:58:53 Test Item Value Reference Range Interpretation Comments GLUCOSE (test code = 85 MG/DL 70-99 2216) BUN (test code = 12 MG/DL 6-20 2207) CREATININE (test 0.59 MG/DL 0.60-1.30 L code = 2214) eGFR (2020 CKD-EPI) 123 >60 (test code = 95157) ML/MIN/1.73 CALC BUN/CREAT (test 20 RATIO 02-07 code = 2235) SODIUM (test code = 141 MEQ/L 756-278 3479) POTASSIUM (test code 4.5 MEQ/L 3.5-5.4 = 2227) CHLORIDE (test code 103 MEQ/L 95-107 = 2214) CARBON DIOXIDE (test 25 MEQ/L 19-31 code = 220) CALCIUM (test code = 9.3 MG/DL 8.5-10.5 2208) PROTEIN, TOTAL (test 6.6 G/DL 6.1-8.3 code = 222) ALBUMIN (test code = 4.2 G/DL 3.5-5.2 2200) CALC GLOBULIN (test 2.4 G/DL 1.9-3.7 code = 224) CALC A/G RATIO (test 1.8 RATIO 1.0-2.6 code = 223) BILIRUBIN, TOTAL <0.2 MG/DL See_Comment [Automated message] (test code = 2207) The syste m which generated this result transmit kenzie reference range : <=1.2. The refe rence range was not u sed to interpret th is result as normal/abnormal . ALKALINE PHOSPHATASE 89 U/L 40-114 (test code = 2204) AST (test code = 12 U/L 9-40 2217) ALT (test code = 16 U/L 5-40 2218) LIPID [id number] 00:00:00 Test Item Value Reference Range Interpretation Comments CHOLESTEROL (test code = 2210) 235 MG/DL TRIGLYCERIDES (test code = 2232) 127 MG/DL HDL CHOLESTEROL (test code = 2220) 46 MG/DL CALC LDL CHOL (test code = 2237) 164 MG/DL RISK RATIO LDL/HDL (test code = 3.57 RATIO 2237) LIPID [id number] 00:00:00 Test Item Value Reference Range Interpretation Comments CHOLESTEROL (test code = 2210) 235 MG/DL TRIGLYCERIDES (test code = 2232) 127 MG/DL HDL CHOLESTEROL (test code = 2220) 46 MG/DL CALC LDL CHOL (test code = 2237) 164 MG/DL RISK RATIO LDL/HDL (test code = 3.57 RATIO 2238) COMPREHENSIVE METABOLIC [id number] 00:00:00 Test Item Value Reference Range Interpretation Comments GLUCOSE (test code = 2217) 85 MG/DL BUN (test code = 2208) 12 MG/DL CREATININE (test code = 2214) 0.59 MG/DL eGFR (2020 CKD-EPI) (test 123 ML/MIN/1.73 code = 31456) CALC BUN/CREAT (test code = 20 RATIO 2235) SODIUM (test code = 2231) 141 MEQ/L POTASSIUM (test code = 2228) 4.5 MEQ/L CHLORIDE (test code = 2215) 103 MEQ/L CARBON DIOXIDE (test code = 25 MEQ/L 2205) CALCIUM (test code = 2209) 9.3 MG/DL PROTEIN, TOTAL (test code = 6.6 G/DL 2228) ALBUMIN (test code = 2201) 4.2 G/DL CALC GLOBULIN (test code = 2.4 G/DL 2239) CALC A/G RATIO (test code = 1.8 RATIO 2233) BILIRUBIN, TOTAL (test code = <0.2 MG/DL 2206) ALKALINE PHOSPHATASE (test 89 U/L code = 2204) AST (test code = 2218) 12 U/L ALT (test code = 2219) 16 U/L COMPREHENSIVE METABOLIC [id number] 00:00:00 Test Item Value Reference Range Interpretation Comments GLUCOSE (test code = 2217) 85 MG/DL BUN (test code = 2208) 12 MG/DL CREATININE (test code = 2214) 0.59 MG/DL eGFR (2020 CKD-EPI) (test 123 ML/MIN/1.73 code = 87716) CALC BUN/CREAT (test code = 20 RATIO 2235) SODIUM (test code = 2231) 141 MEQ/L POTASSIUM (test code = 2228) 4.5 MEQ/L CHLORIDE (test code = 2215) 103 MEQ/L CARBON DIOXIDE (test code = 25 MEQ/L 2205) CALCIUM (test code = 2209) 9.3 MG/DL PROTEIN, TOTAL (test code = 6.6 G/DL 2228) ALBUMIN (test code = 2201) 4.2 G/DL CALC GLOBULIN (test code = 2.4 G/DL 2240) CALC A/G RATIO (test code = 1.8 RATIO 2234) BILIRUBIN, TOTAL (test code = <0.2 MG/DL 2206) ALKALINE PHOSPHATASE (test 89 U/L code = 2204) AST (test code = 2218) 12 U/L ALT (test code = 2219) 16 U/L [id number] 00:00:00 Test Item Value Reference Range Interpretation Comments TSH, THIRD GENERATION (test code 7.090 UIU/ML = 2821) [id number] 00:00:00 Test Item Value Reference Range Interpretation Comments TSH, THIRD GENERATION (test code 7.090 UIU/ML = 2821) [id number] 00:00:00 Test Item Value Reference Range Interpretation Comments TSH, THIRD GENERATION (test code 7.090 UIU/ML = 2821) LIPID [id number] 00:00:00 Test Item Value Reference Range Interpretation Comments CHOLESTEROL (test code = 2210) 235 MG/DL TRIGLYCERIDES (test code = 2232) 127 MG/DL HDL CHOLESTEROL (test code = 2220) 46 MG/DL CALC LDL CHOL (test code = 2237) 164 MG/DL RISK RATIO LDL/HDL (test code = 3.57 RATIO 2238) LIPID [id number] 00:00:00 Test Item Value Reference Range Interpretation Comments CHOLESTEROL (test code = 2210) 235 MG/DL TRIGLYCERIDES (test code = 2232) 127 MG/DL HDL CHOLESTEROL (test code = 2220) 46 MG/DL CALC LDL CHOL (test code = 2237) 164 MG/DL RISK RATIO LDL/HDL (test code = 3.57 RATIO 2238) COMPREHENSIVE METABOLIC [id number] 00:00:00 Test Item Value Reference Range Interpretation Comments GLUCOSE (test code = 2217) 85 MG/DL BUN (test code = 2208) 12 MG/DL CREATININE (test code = 2214) 0.59 MG/DL eGFR (2020 CKD-EPI) (test 123 ML/MIN/1.73 code = 27179) CALC BUN/CREAT (test code = 20 RATIO 2235) SODIUM (test code = 2231) 141 MEQ/L POTASSIUM (test code = 2228) 4.5 MEQ/L CHLORIDE (test code = 2215) 103 MEQ/L CARBON DIOXIDE (test code = 25 MEQ/L 2206) CALCIUM (test code = 2209) 9.3 MG/DL PROTEIN, TOTAL (test code = 6.6 G/DL 222) ALBUMIN (test code = 2201) 4.2 G/DL CALC GLOBULIN (test code = 2.4 G/DL 2240) CALC A/G RATIO (test code = 1.8 RATIO 2234) BILIRUBIN, TOTAL (test code = <0.2 MG/DL 2206) ALKALINE PHOSPHATASE (test 89 U/L code = 2204) AST (test code = 2218) 12 U/L ALT (test code = 2219) 16 U/L COMPREHENSIVE METABOLIC [id number] 00:00:00 Test Item Value Reference Range Interpretation Comments GLUCOSE (test code = 2217) 85 MG/DL BUN (test code = 2208) 12 MG/DL CREATININE (test code = 2214) 0.59 MG/DL eGFR (2020 CKD-EPI) (test 123 ML/MIN/1.73 code = 43721) CALC BUN/CREAT (test code = 20 RATIO 2235) SODIUM (test code = 2231) 141 MEQ/L POTASSIUM (test code = 2228) 4.5 MEQ/L CHLORIDE (test code = 2215) 103 MEQ/L CARBON DIOXIDE (test code = 25 MEQ/L 220) CALCIUM (test code = 2209) 9.3 MG/DL PROTEIN, TOTAL (test code = 6.6 G/DL 2228) ALBUMIN (test code = 2201) 4.2 G/DL CALC GLOBULIN (test code = 2.4 G/DL 2240) CALC A/G RATIO (test code = 1.8 RATIO 2234) BILIRUBIN, TOTAL (test code = <0.2 MG/DL 2206) ALKALINE PHOSPHATASE (test 89 U/L code = 2204) AST (test code = 2218) 12 U/L ALT (test code = 2219) 16 U/L [id number] 00:00:00 Test Item Value Reference Range Interpretation Comments TSH, THIRD GENERATION (test code 7.090 UIU/ML = 2821) [id number] 00:00:00 Test Item Value Reference Range Interpretation Comments TSH, THIRD GENERATION (test code 7.090 UIU/ML = 2821) [id number] 00:00:00 Test Item Value Reference Range Interpretation Comments TSH, THIRD GENERATION (test code 7.090 UIU/ML = 2821) LIPID [id number] 00:00:00 Test Item Value Reference Range Interpretation Comments CHOLESTEROL (test code = 2210) 235 MG/DL TRIGLYCERIDES (test code = 2232) 127 MG/DL HDL CHOLESTEROL (test code = 2220) 46 MG/DL CALC LDL CHOL (test code = 2237) 164 MG/DL RISK RATIO LDL/HDL (test code = 3.57 RATIO 2238) COMPREHENSIVE METABOLIC [id number] 00:00:00 Test Item Value Reference Range Interpretation Comments GLUCOSE (test code = 2217) 85 MG/DL BUN (test code = 2208) 12 MG/DL CREATININE (test code = 2214) 0.59 MG/DL eGFR (2020 CKD-EPI) (test 123 ML/MIN/1.73 code = 33776) CALC BUN/CREAT (test code = 20 RATIO 2235) SODIUM (test code = 2231) 141 MEQ/L POTASSIUM (test code = 2228) 4.5 MEQ/L CHLORIDE (test code = 2215) 103 MEQ/L CARBON DIOXIDE (test code = 25 MEQ/L 2205) CALCIUM (test code = 2209) 9.3 MG/DL PROTEIN, TOTAL (test code = 6.6 G/DL 2228) ALBUMIN (test code = 2201) 4.2 G/DL CALC GLOBULIN (test code = 2.4 G/DL 2240) CALC A/G RATIO (test code = 1.8 RATIO 2234) BILIRUBIN, TOTAL (test code = <0.2 MG/DL 2206) ALKALINE PHOSPHATASE (test 89 U/L code = 2204) AST (test code = 2218) 12 U/L ALT (test code = 2219) 16 U/L [id number] 00:00:00 Test Item Value Reference Range Interpretation Comments TSH, THIRD GENERATION (test code 7.090 UIU/ML = 2821) [id number] 00:00:00 Test Item Value Reference Range Interpretation Comments TSH, THIRD GENERATION (test code 7.090 UIU/ML = 2821) LIPID [id number] 00:00:00 Test Item Value Reference Range Interpretation Comments CHOLESTEROL (test code = 2210) 235 MG/DL TRIGLYCERIDES (test code = 2232) 127 MG/DL HDL CHOLESTEROL (test code = 2220) 46 MG/DL CALC LDL CHOL (test code = 2237) 164 MG/DL RISK RATIO LDL/HDL (test code = 3.57 RATIO 2238) LIPID [id number] 00:00:00 Test Item Value Reference Range Interpretation Comments CHOLESTEROL (test code = 2210) 235 MG/DL TRIGLYCERIDES (test code = 2232) 127 MG/DL HDL CHOLESTEROL (test code = 2220) 46 MG/DL CALC LDL CHOL (test code = 2237) 164 MG/DL RISK RATIO LDL/HDL (test code = 3.57 RATIO 2238) COMPREHENSIVE METABOLIC [id number] 00:00:00 Test Item Value Reference Range Interpretation Comments GLUCOSE (test code = 2217) 85 MG/DL BUN (test code = 2208) 12 MG/DL CREATININE (test code = 2214) 0.59 MG/DL eGFR (2020 CKD-EPI) (test 123 ML/MIN/1.73 code = 30303) CALC BUN/CREAT (test code = 20 RATIO 2235) SODIUM (test code = 2231) 141 MEQ/L POTASSIUM (test code = 2228) 4.5 MEQ/L CHLORIDE (test code = 2215) 103 MEQ/L CARBON DIOXIDE (test code = 25 MEQ/L 2205) CALCIUM (test code = 2209) 9.3 MG/DL PROTEIN, TOTAL (test code = 6.6 G/DL 2228) ALBUMIN (test code = 2201) 4.2 G/DL CALC GLOBULIN (test code = 2.4 G/DL 0) CALC A/G RATIO (test code = 1.8 RATIO 2234) BILIRUBIN, TOTAL (test code = <0.2 MG/DL 2206) ALKALINE PHOSPHATASE (test 89 U/L code = 2204) AST (test code = 2218) 12 U/L ALT (test code = 2219) 16 U/L COMPREHENSIVE METABOLIC [id number] 00:00:00 Test Item Value Reference Range Interpretation Comments GLUCOSE (test code = 2217) 85 MG/DL BUN (test code = 2208) 12 MG/DL CREATININE (test code = 2214) 0.59 MG/DL eGFR (2020 CKD-EPI) (test 123 ML/MIN/1.73 code = 57817) CALC BUN/CREAT (test code = 20 RATIO 2234) SODIUM (test code = 2231) 141 MEQ/L [...] BILIRUBIN, TOTAL (test code = <0.2 MG/DL 2206) ALKALINE PHOSPHATASE (test 89 U/L code = 2204) AST (test code = 2218) 12 U/L ALT (test code = 2219) 16 U/L [id number] 00:00:00 Test Item Value Reference Range Interpretation Comments TSH, THIRD GENERATION (test code 7.090 UIU/ML = 2821) [id number] 00:00:00 Test Item Value Reference Range Interpretation Comments TSH, THIRD GENERATION (test code 7.090 UIU/ML = 2821) [id number] 00:00:00 Test Item Value Reference Range Interpretation Comments TSH, THIRD GENERATION (test code 7.090 UIU/ML = 2821) LIPID [id number] 00:00:00 Test Item Value Reference Range Interpretation Comments CHOLESTEROL (test code = 2210) 235 MG/DL TRIGLYCERIDES (test code = 2232) 127 MG/DL HDL CHOLESTEROL (test code = 2220) 46 MG/DL CALC LDL CHOL (test code = 2237) 164 MG/DL RISK RATIO LDL/HDL (test code = 3.57 RATIO 8) LIPID [id number] 00:00:00 Test Item Value Reference Range Interpretation Comments CHOLESTEROL (test code = 2210) 235 MG/DL TRIGLYCERIDES (test code = 2232) 127 MG/DL HDL CHOLESTEROL (test code = 2220) 46 MG/DL CALC LDL CHOL (test code = 2237) 164 MG/DL RISK RATIO LDL/HDL (test code = 3.57 RATIO 2238) COMPREHENSIVE METABOLIC [id number] 00:00:00 Test Item Value Reference Range Interpretation Comments GLUCOSE (test code = 2217) 85 MG/DL BUN (test code = 2208) 12 MG/DL CREATININE (test code = 2214) 0.59 MG/DL eGFR (2020 CKD-EPI) (test 123 ML/MIN/1.73 code = 55284) CALC BUN/CREAT (test code = 20 RATIO 2235) SODIUM (test code = 2231) 141 MEQ/L POTASSIUM (test code = 2228) 4.5 MEQ/L CHLORIDE (test code = 2215) 103 MEQ/L CARBON DIOXIDE (test code = 25 MEQ/L 2205) CALCIUM (test code = 2209) 9.3 MG/DL PROTEIN, TOTAL (test code = 6.6 G/DL 2228) ALBUMIN (test code = 2201) 4.2 G/DL CALC GLOBULIN (test code = 2.4 G/DL 2239) CALC A/G RATIO (test code = 1.8 RATIO 2233) BILIRUBIN, TOTAL (test code = <0.2 MG/DL 2206) ALKALINE PHOSPHATASE (test 89 U/L code = 2204) AST (test code = 2218) 12 U/L ALT (test code = 2219) 16 U/L COMPREHENSIVE METABOLIC [id number] 00:00:00 Test Item Value Reference Range Interpretation Comments GLUCOSE (test code = 2217) 85 MG/DL BUN (test code = 2208) 12 MG/DL CREATININE (test code = 2214) 0.59 MG/DL eGFR (2020 CKD-EPI) (test 123 ML/MIN/1.73 code = 61184) CALC BUN/CREAT (test code = 20 RATIO 2235) SODIUM (test code = 2231) 141 MEQ/L POTASSIUM (test code = 2228) 4.5 MEQ/L CHLORIDE (test code = 2215) 103 MEQ/L CARBON DIOXIDE (test code = 25 MEQ/L 2205) CALCIUM (test code = 2209) 9.3 MG/DL PROTEIN, TOTAL (test code = 6.6 G/DL 2228) ALBUMIN (test code = 2201) 4.2 G/DL CALC GLOBULIN (test code = 2.4 G/DL 2240) CALC A/G RATIO (test code = 1.8 RATIO 2234) BILIRUBIN, TOTAL (test code = <0.2 MG/DL 2206) ALKALINE PHOSPHATASE (test 89 U/L code = 2204) AST (test code = 2218) 12 U/L ALT (test code = 2219) 16 U/L [id number] 00:00:00 Test Item Value Reference Range Interpretation Comments TSH, THIRD GENERATION (test code 7.090 UIU/ML = 2821) [id number] 00:00:00 Test Item Value Reference Range Interpretation Comments TSH, THIRD GENERATION (test code 7.090 UIU/ML = 2821) [id number] 00:00:00 Test Item Value Reference Range Interpretation Comments TSH, THIRD GENERATION (test code 7.090 UIU/ML = 2821) TROPONIN [id number] 21:03:34 Test Item Value Reference Interpretation Comments Range TROPONIN I (test 0.000 ng/mL See_Comment [Automated code = [id number]) message] The system which generated this result [...] biotin. Lab Interpretation Normal (test code = 45867-7) [id number] 20:45[facility]29 Test Item Value Reference Interpretation Comments Range D-DIMER (test code = See_Comment [Autom ated [id number]) message] The system which generated this result [...] diagnosis. Lab Interpretation Normal (test code = 10531-7) [facility] WITH [id number] 19:14:30 Test Item Value Reference Range Interpretation Comments WBC (test code = See_Comment [Automated 9897-2) message] The sy stem which generated this result transmitted reference range : 4.30 - 11.10 10*3/?L. The reference range was not used to interpret this result as normal/abnormal . RBC (test code = See_Comment [Automated 490-8) message] The sy stem which generated this [...] RDW-SD (test code = 42.2 fL 39.0-49.9 02022-1) RDW-CV (test code = 13.1 % 12.0-15.5 788-0) PLT (test code = See_Comment [Automated 827-3) message] The sy stem which generated this result transmitted reference range : 166 - 358 10*3/ ?L. The reference r ana laura was not used to interpret this result as normal/abnormal . MPV (test code = 9.6 fL 9.5-12.9 78003-5) NRBC/100 WBC (test See_Comment [Automat ed code = 9916012815) message] The system which generated this result transmitted reference range : 0.0 - 10.0 /100 WBCs. The refer ence range was not u sed to interpret th is result as normal/abnormal . NRBC x10^3 (test code <0.01 See_Comment [Auto mated = [id number]) message] The s ystem which generated this result transmitted reference range : 10*3/?L. The reference range was not used to interpret this result as normal/abnormal . GRAN MAT (NEUT) % 43.7 % (test code = 770-8) IMM GRAN % (test code 0.50 % = 1688227828) LYMPH % (test code = 46.2 % 736-9) MONO % (test code = 6.2 % 5905-5) EOS % (test code = 2.8 % 713-8) BASO % (test code = 0.6 % 706-2) GRAN MAT x10^3(ANC) 4.77 10*3/uL 1.88-7.09 (test code = 5990500637) IMM GRAN x10^3 (test 0.05 10*3/uL 0.00-0.06 code = 1117983929) LYMPH x10^3 (test code 5.05 10*3/uL 1.32-3.29 H = 731-0) MONO x10^3 (test code 0.68 10*3/uL 0.33-0.92 = 742-7) EOS x10^3 (test code = 0.31 10*3/uL 0.03-0.39 711-2) BASO x10^3 (test code 0.07 10*3/uL 0.01-0.07 = 704-7) Lab Interpretation Abnormal (test code = 79632-7) [facility] [id number] 18:39:27 Test Item Value Reference Interpretation Comments Range TROPONIN I (test 0.001 ng/mL See_Comment [Automated code = 0311141314) message] The system which generated this result [...] biotin. Lab Interpretation Normal (test code = 77355-8) [facility]. METABOLIC PANEL (04900)2021-07-27 18:29:25 Test Item Value Reference Range Interpretation Comments NA (test code = 137 mmol/L 135-145 3879369931) K (test code = 4.5 mmol/L 3.5-5.0 6063449715) CL (test code = 104 mmol/L 98-108 9489055806) CO2 TOTAL (test code 26 mmol/L 23-31 = 6602915989) AGAP (test code = 2-16 9801575316) BUN (test code = 10 mg/dL 7-23 9179596108) GLUCOSE (test code = 87 mg/dL 70-110 7881543398) CREATININE (test code 0.59 mg/dL 0.50-1.04 = 8788961714) TOTAL BILI (test code 0.4 mg/dL 0.1-1.1 = 9650255049) CALCIUM (test code = 9.6 mg/dL 8.6-10.6 6681390574) T PROTEIN (test code 7.1 g/dL 6.3-8.2 = 5796882617) ALBUMIN (test code = 4.2 g/dL 3.5-5.0 2350749008) ALK PHOS (test code = 88 U/L 34-122 2141727605) ALTv (test code = 22 U/L 5-35 1742-6) AST(SGOT) (test code 25 U/L 13-40 = 0785500560) eGFR (test code = mL/min/1.73m2 7715980803) MACI (test code = MACI) Association of [...] or urine or abnormalities in imaging tests). [facility] Test Item Value Reference Range Interpretation Comments MAGNESIUM (test code = 2296767284) 1.8 mg/dL 1.7-2.4 Lab Interpretation (test code = Normal 72486-5) [facility] [id number] 18:28:00 Test Item Value Reference Range Interpretation Comments POCT PREG (test code = 1605) negative POCT PREG LOT # (test code = 3575) [id number] POCT PREG TEST DATE (test 2022-09-12 code = 3576) Lab Interpretation (test code = Normal 72854-8) [facility] [id number] 19:26:00 Test Item Value Reference Range Interpretation Comments POCT PREG (test code = 1605) Negative On board controls acceptable with C Yes Line (test code = 3574) POCT PREG LOT # (test code = 3575) POCT PREG TEST DATE (test code = 3576) Lab Interpretation (test code = Normal 28416-0) [facility] [id number] 19:26:00 Test Item Value Reference Range Interpretation Comments POCT PREG (test code = 1605) Negative On board controls acceptable with C Yes Line (test code = 3574) POCT PREG LOT # (test code = 3575) POCT PREG TEST DATE (test code = 3576) Lab Interpretation (test code = Normal 74265-3) [facility] [id number] 19:26:00 Test Item Value Reference Range Interpretation Comments POCT PREG (test code = 1605) Negative On board controls acceptable with C Yes Line (test code = 3574) POCT PREG LOT # (test code = 3575) POCT PREG TEST DATE (test code = 3576) Lab Interpretation (test code = Normal 57444-2) [facility] by RT-PCR (HIGH RISK) 2020-12-15 00:00:00 Test Item Value Reference Range Interpretation Comments SARS-CoV-2 INTERPRETATION (test NEGATIVE code = 03395) SOURCE (test code = 46818) NOT SPECIFIED SARS-CoV-2 (COVID-19) by RT-PCR (HIGH RISK)2020-12-15 00:00:00 Test Item Value Reference Range Interpretation Comments SARS-CoV-2 INTERPRETATION (test NEGATIVE code = 44975) SOURCE (test code = 53367) NOT SPECIFIED SARS-CoV-2 (COVID-19) by RT-PCR (HIGH RISK)2020-12-15 00:00:00 Test Item Value Reference Range Interpretation Comments SARS-CoV-2 INTERPRETATION (test NEGATIVE code = 94735) SOURCE (test code = 50889) NOT SPECIFIED SARS-CoV-2 (COVID-19) by RT-PCR (HIGH RISK)2020-12-15 00:00:00 Test Item Value Reference Range Interpretation Comments SARS-CoV-2 INTERPRETATION (test NEGATIVE code = 71516) SOURCE (test code = 51084) NOT SPECIFIED SARS-CoV-2 (COVID-19) by RT-PCR (HIGH RISK)2020-12-15 00:00:00 Test Item Value Reference Range Interpretation Comments SARS-CoV-2 INTERPRETATION (test NEGATIVE code = 09311) SOURCE (test code = 08929) NOT SPECIFIED SARS-CoV-2 (COVID-19) by RT-PCR (HIGH RISK)2020-12-15 00:00:00 Test Item Value Reference Range Interpretation Comments SARS-CoV-2 INTERPRETATION (test NEGATIVE code = 17877) SOURCE (test code = 73448) NOT SPECIFIED SARS-CoV-2 (COVID-19) by RT-PCR (HIGH RISK)2020-12-15 00:00:00 Test Item Value Reference Range Interpretation Comments SARS-CoV-2 INTERPRETATION (test NEGATIVE code = 04545) SOURCE (test code = 66217) NOT SPECIFIED SARS-CoV-2 (COVID-19) by RT-PCR (HIGH RISK)2020-12-15 00:00:00 Test Item Value Reference Range Interpretation Comments SARS-CoV-2 INTERPRETATION (test NEGATIVE code = 58389) SOURCE (test code = 22672) NOT SPECIFIED SARS-CoV-2 (COVID-19) by RT-PCR (HIGH RISK)2020-12-15 00:00:00 Test Item Value Reference Range Interpretation Comments SARS-CoV-2 INTERPRETATION (test NEGATIVE code = 68933) SOURCE (test code = 39683) NOT SPECIFIED POCT [id number] 20:47:00 Test Item Value Reference Range Interpretation Comments POCT PREG (test code = 1605) Negative On board controls acceptable with C Yes Line (test code = 3574) POCT PREG LOT # (test code = 3575) POCT PREG TEST DATE (test code = 3576) Lab Interpretation (test code = Normal 38464-9) [facility] [id number] 20:47:00 Test Item Value Reference Range Interpretation Comments POCT PREG (test code = 1605) Negative On board controls acceptable with C Yes Line (test code = 3574) POCT PREG LOT # (test code = 3575) POCT PREG TEST DATE (test code = 3576) Lab Interpretation (test code = Normal 73490-5) [facility]landGC AND CHLAMYDIA AMPLIFIED, [id number] 00:00:00 Test Item Value Reference Range Interpretation Comments GONORRHEA, TMA (test code = 56495) NEGATIVE CHLAMYDIA, TMA (test code = 77024) NEGATIVE HIV AB/AG COMBO RFLX [id number] 00:00:00 Test Item Value Reference Range Interpretation Comments HIV 1/2 4TH GEN, RFLX CONF (test NON-REACTIVE code = 3514) GC AND CHLAMYDIA AMPLIFIED, [id number] 00:00:00 Test Item Value Reference Range Interpretation Comments GONORRHEA, TMA (test code = 74096) NEGATIVE CHLAMYDIA, TMA (test code = 68261) NEGATIVE HIV AB/AG COMBO RFLX [id number] 00:00:00 Test Item Value Reference Range Interpretation Comments HIV 1/2 4TH GEN, RFLX CONF (test NON-REACTIVE code = 3514) ACUTE HEPATITIS [id number] 00:00:00 Test Item Value Reference Range Interpretation Comments HEPATITIS A IgM (test code = NON-REACTIVE ) HEPATITIS B CORE IgM (test code NON-REACTIVE = 4644) HEPATITIS B SURF AG (test code = NON-REACTIVE 2739) HEPATITIS C ANTIBODY (test code NON-REACTIVE = 4675) INTERPRETATION HEPATITIS A: (NOTE) (test code = 2552) INTERPRETATION HEPATITIS B: (NOTE) (test code = 96650) INTERPRETATION HEPATITIS C: (NOTE) (test code = 79488) PAP TEST, THINPREP, [id number] 00:00:00 Test Item Value Reference Range Interpretation Comments SOURCE: (test code = Endocervical 8001) SLIDES: (test code = 1 8011) LMP: (test code = 10/2020 8021) SPECIMEN ADEQUACY: (NOTE) (test code = 32056) INTERPRETATION: (test NILM/NO EPITH. code = 33887) ABNORMALITY;SEE BELOW GREASER AND OILER: RANJEET Riley(ASCP)JESSICA (test code = 8101) LOCATION: (test code (NOTE) = 08187) CPT: (test code = (NOTE) 8140) ACUTE HEPATITIS [id number] 00:00:00 Test Item Value Reference Range Interpretation Comments HEPATITIS A IgM (test code = NON-REACTIVE 57531) HEPATITIS B CORE IgM (test code NON-REACTIVE = 4644) HEPATITIS B SURF AG (test code = NON-REACTIVE 5139) HEPATITIS C ANTIBODY (test code NON-REACTIVE = 4692) INTERPRETATION HEPATITIS A: (NOTE) (test code = 2552) INTERPRETATION HEPATITIS B: (NOTE) (test code = 07325) INTERPRETATION HEPATITIS C: (NOTE) (test code = 00087) PAP TEST, THINPREP, [id number] 00:00:00 Test Item Value Reference Range Interpretation Comments SOURCE: (test code = Endocervical 8001) SLIDES: (test code = 1 8011) LMP: (test code = 10/2020 8021) SPECIMEN ADEQUACY: (NOTE) (test code = 74058) INTERPRETATION: (test NILM/NO EPITH. code = 56219) ABNORMALITY;SEE BELOW GREASER AND OILER: RANJEET Riley(ASCP)JESSICA (test code = 8101) LOCATION: (test code (NOTE) = 61959) CPT: (test code = (NOTE) 8140) [id number] 00:00:00 Test Item Value Reference Range Interpretation Comments RPR RESULT (test code = NON-REACTIVE 3501) RPR TITER (test code = 3500) NOT INDIC. TITER HPV HIGH RISK WITH GENOTYPE, [id number] 00:00:00 Test Item Value Reference Range Interpretation Comments HPV HIGH RISK INTERP (test code = NEGATIVE 51919) HPV 16 (test code = 96772) NEGATIVE HPV 18 (test code = 38439) NEGATIVE HPV, HR, OTHER GENOTYPES (test code NEGATIVE = 18708) [id number] 00:00:00 Test Item Value Reference Range Interpretation Comments RPR RESULT (test code = NON-REACTIVE 3501) RPR TITER (test code = 3500) NOT INDIC. TITER [id number] 00:00:00 Test Item Value Reference Range Interpretation Comments RPR RESULT (test code = NON-REACTIVE 3501) RPR TITER (test code = 3500) NOT INDIC. TITER HPV HIGH RISK WITH GENOTYPE, [id number] 00:00:00 Test Item Value Reference Range Interpretation Comments HPV HIGH RISK INTERP (test code = NEGATIVE 77316) HPV 16 (test code = 69891) NEGATIVE HPV 18 (test code = 90908) NEGATIVE HPV, HR, OTHER GENOTYPES (test code NEGATIVE = 45696) VAGINAL PATHOGENS DNA [id number] 00:00:00 Test Item Value Reference Range Interpretation Comments ANNE MARIE SPECIES (test code = ) NEGATIVE G. VAGINALIS (test code = ) NEGATIVE T. VAGINALIS (test code = 82131) NEGATIVE VAGINAL PATHOGENS DNA [id number] 00:00:00 Test Item Value Reference Range Interpretation Comments ANNE MARIE SPECIES (test code = ) NEGATIVE G. VAGINALIS (test code = 63144) NEGATIVE T. VAGINALIS (test code = ) NEGATIVE HIV AB/AG COMBO RFLX [id number] 00:00:00 Test Item Value Reference Range Interpretation Comments HIV 1/2 4TH GEN, RFLX CONF (test NON-REACTIVE code = 3514) GC AND CHLAMYDIA AMPLIFIED, [id number] 00:00:00 Test Item Value Reference Range Interpretation Comments GONORRHEA, TMA (test code = 99010) NEGATIVE CHLAMYDIA, TMA (test code = 34054) NEGATIVE HIV AB/AG COMBO RFLX [id number] 00:00:00 Test Item Value Reference Range Interpretation Comments HIV 1/2 4TH GEN, RFLX CONF (test NON-REACTIVE code = 3514) GC AND CHLAMYDIA AMPLIFIED, [id number] 00:00:00 Test Item Value Reference Range Interpretation Comments GONORRHEA, TMA (test code = 00717) NEGATIVE CHLAMYDIA, TMA (test code = 54459) NEGATIVE ACUTE HEPATITIS [id number] 00:00:00 Test Item Value Reference Range Interpretation Comments HEPATITIS A IgM (test code = NON-REACTIVE 43335) HEPATITIS B CORE IgM (test code NON-REACTIVE = 4644) HEPATITIS B SURF AG (test code = NON-REACTIVE 2739) HEPATITIS C ANTIBODY (test code NON-REACTIVE = 4675) INTERPRETATION HEPATITIS A: (NOTE) (test code = 2552) INTERPRETATION HEPATITIS B: (NOTE) (test code = 80579) INTERPRETATION HEPATITIS C: (NOTE) (test code = 65821) PAP TEST, THINPREP, [id number] 00:00:00 Test Item Value Reference Range Interpretation Comments SOURCE: (test code = Endocervical 8001) SLIDES: (test code = 1 8011) LMP: (test code = 10/2020 8021) SPECIMEN ADEQUACY: (NOTE) (test code = 00117) INTERPRETATION: (test NILM/NO EPITH. code = 31314) ABNORMALITY;SEE BELOW GREASER AND OILER: RANJEET Riley(ASCP)IAC (test code = 8101) LOCATION: (test code (NOTE) = 14930) CPT: (test code = (NOTE) 8140) ACUTE HEPATITIS [id number] 00:00:00 Test Item Value Reference Range Interpretation Comments HEPATITIS A IgM (test code = NON-REACTIVE 10202) HEPATITIS B CORE IgM (test code NON-REACTIVE = 4644) HEPATITIS B SURF AG (test code = NON-REACTIVE 2739) HEPATITIS C ANTIBODY (test code NON-REACTIVE = 4675) INTERPRETATION HEPATITIS A: (NOTE) (test code = 2552) INTERPRETATION HEPATITIS B: (NOTE) (test code = 08353) INTERPRETATION HEPATITIS C: (NOTE) (test code = 18858) PAP TEST, THINPREP, [id number] 00:00:00 Test Item Value Reference Range Interpretation Comments SOURCE: (test code = Endocervical 8001) SLIDES: (test code = 1 8011) LMP: (test code = 10/2020 8021) SPECIMEN ADEQUACY: (NOTE) (test code = 97679) INTERPRETATION: (test NILM/NO EPITH. code = 47718) ABNORMALITY;SEE BELOW GREASER AND OILER: RANJEET Riley(ASCP)[facility] (test code = 8101) LOCATION: (test code (NOTE) = 37401) CPT: (test code = (NOTE) 8140) HPV HIGH RISK WITH GENOTYPE, [id number] 00:00:00 Test Item Value Reference Range Interpretation Comments HPV HIGH RISK INTERP (test code = NEGATIVE 51923) HPV 16 (test code = 15595) NEGATIVE HPV 18 (test code = 75410) NEGATIVE HPV, HR, OTHER GENOTYPES (test code NEGATIVE = 29016) [id number] 00:00:00 Test Item Value Reference Range Interpretation Comments RPR RESULT (test code = NON-REACTIVE 3501) RPR TITER (test code = 3500) NOT INDIC. TITER [id number] 00:00:00 Test Item Value Reference Range Interpretation Comments RPR RESULT (test code = NON-REACTIVE 3501) RPR TITER (test code = 3500) NOT INDIC. TITER HPV HIGH RISK WITH GENOTYPE, [id number] 00:00:00 Test Item Value Reference Range Interpretation Comments HPV HIGH RISK INTERP (test code = NEGATIVE 12229) HPV 16 (test code = 23743) NEGATIVE HPV 18 (test code = 68751) NEGATIVE HPV, HR, OTHER GENOTYPES (test code NEGATIVE = 34713) [id number] 00:00:00 Test Item Value Reference Range Interpretation Comments RPR RESULT (test code = NON-REACTIVE 3501) RPR TITER (test code = 3500) NOT INDIC. TITER VAGINAL PATHOGENS DNA [id number] 00:00:00 Test Item Value Reference Range Interpretation Comments ANNE MARIE SPECIES (test code = ) NEGATIVE G. VAGINALIS (test code = 58461) NEGATIVE T. VAGINALIS (test code = 31783) NEGATIVE VAGINAL PATHOGENS DNA [id number] 00:00:00 Test Item Value Reference Range Interpretation Comments ANNE MARIE SPECIES (test code = ) NEGATIVE G. VAGINALIS (test code = 30351) NEGATIVE T. VAGINALIS (test code = 73791) NEGATIVE GC AND CHLAMYDIA AMPLIFIED, [id number] 00:00:00 Test Item Value Reference Range Interpretation Comments GONORRHEA, TMA (test code = 34698) NEGATIVE CHLAMYDIA, TMA (test code = 69459) NEGATIVE HIV AB/AG COMBO RFLX [id number] 00:00:00 Test Item Value Reference Range Interpretation Comments HIV 1/2 4TH GEN, RFLX CONF (test NON-REACTIVE code = 3514) ACUTE HEPATITIS [id number] 00:00:00 Test Item Value Reference Range Interpretation Comments HEPATITIS A IgM (test code = NON-REACTIVE 25291) HEPATITIS B CORE IgM (test code NON-REACTIVE = 4644) HEPATITIS B SURF AG (test code = NON-REACTIVE 7579) HEPATITIS C ANTIBODY (test code NON-REACTIVE = 4675) INTERPRETATION HEPATITIS A: (NOTE) (test code = 2552) INTERPRETATION HEPATITIS B: (NOTE) (test code = 41105) INTERPRETATION HEPATITIS C: (NOTE) (test code = 79102) PAP TEST, THINPREP, [id number] 00:00:00 Test Item Value Reference Range Interpretation Comments SOURCE: (test code = Endocervical 8001) SLIDES: (test code = 1 8011) LMP: (test code = 10/2020 8021) SPECIMEN ADEQUACY: (NOTE) (test code = 96929) INTERPRETATION: (test NILM/NO EPITH. code = 61299) ABNORMALITY;SEE BELOW GREASER AND OILER: RANJEET Riley(ASCP)IAC (test code = 8101) LOCATION: (test code (NOTE) = 98250) CPT: (test code = (NOTE) 8140) HPV HIGH RISK WITH GENOTYPE, [id number] 00:00:00 Test Item Value Reference Range Interpretation Comments HPV HIGH RISK INTERP (test code = NEGATIVE 29893) HPV 16 (test code = 24530) NEGATIVE HPV 18 (test code = 92159) NEGATIVE HPV, HR, OTHER GENOTYPES (test code NEGATIVE = 03089) [id number] 00:00:00 Test Item Value Reference Range Interpretation Comments RPR RESULT (test code = NON-REACTIVE 3501) RPR TITER (test code = 3500) NOT INDIC. TITER [id number] 00:00:00 Test Item Value Reference Range Interpretation Comments RPR RESULT (test code = NON-REACTIVE 3501) RPR TITER (test code = 3500) NOT INDIC. TITER VAGINAL PATHOGENS DNA [id number] 00:00:00 Test Item Value Reference Range Interpretation Comments ANNE MARIE SPECIES (test code = 92355) NEGATIVE G. VAGINALIS (test code = 43382) NEGATIVE T. VAGINALIS (test code = 43498) NEGATIVE GC AND CHLAMYDIA AMPLIFIED, [id number] 00:00:00 Test Item Value Reference Range Interpretation Comments GONORRHEA, TMA (test code = 95120) NEGATIVE CHLAMYDIA, TMA (test code = 29208) NEGATIVE GC AND CHLAMYDIA AMPLIFIED, [id number] 00:00:00 Test Item Value Reference Range Interpretation Comments GONORRHEA, TMA (test code = 22675) NEGATIVE CHLAMYDIA, TMA (test code = 04672) NEGATIVE HIV AB/AG COMBO RFLX [id number] 00:00:00 Test Item Value Reference Range Interpretation Comments HIV 1/2 4TH GEN, RFLX CONF (test NON-REACTIVE code = 3514) HIV AB/AG COMBO RFLX [id number] 00:00:00 Test Item Value Reference Range Interpretation Comments HIV 1/2 4TH GEN, RFLX CONF (test NON-REACTIVE code = 3514) PAP TEST, THINPREP, [id number] 00:00:00 Test Item Value Reference Range Interpretation Comments SOURCE: (test code = Endocervical 8001) SLIDES: (test code = 1 8011) LMP: (test code = 10/2020 8021) SPECIMEN ADEQUACY: (NOTE) (test code = 41315) INTERPRETATION: (test NILM/NO EPITH. code = 67696) ABNORMALITY;SEE BELOW GREASER AND OILER: RANJEET Riley([facility] (test code = 8101) LOCATION: (test code (NOTE) = 66184) CPT: (test code = (NOTE) 8140) ACUTE HEPATITIS [id number] 00:00:00 Test Item Value Reference Range Interpretation Comments HEPATITIS A IgM (test code = NON-REACTIVE 83974) HEPATITIS B CORE IgM (test code NON-REACTIVE = 4644) HEPATITIS B SURF AG (test code = NON-REACTIVE 2739) HEPATITIS C ANTIBODY (test code NON-REACTIVE = 4675) INTERPRETATION HEPATITIS A: (NOTE) (test code = 2552) INTERPRETATION HEPATITIS B: (NOTE) (test code = 01524) INTERPRETATION HEPATITIS C: (NOTE) (test code = 76074) PAP TEST, THINPREP, [id number] 00:00:00 Test Item Value Reference Range Interpretation Comments SOURCE: (test code = Endocervical 8001) SLIDES: (test code = 1 8011) LMP: (test code = 10/2020 8021) SPECIMEN ADEQUACY: (NOTE) (test code = 09134) INTERPRETATION: (test NILM/NO EPITH. code = 29803) ABNORMALITY;SEE BELOW GREASER AND OILER: RANJEET Riley([facility] (test code = 8101) LOCATION: (test code (NOTE) = 30932) CPT: (test code = (NOTE) 8140) ACUTE HEPATITIS [id number] 00:00:00 Test Item Value Reference Range Interpretation Comments HEPATITIS A IgM (test code = NON-REACTIVE 51848) HEPATITIS B CORE IgM (test code NON-REACTIVE = 4644) HEPATITIS B SURF AG (test code = NON-REACTIVE 2739) HEPATITIS C ANTIBODY (test code NON-REACTIVE = 4675) INTERPRETATION HEPATITIS A: (NOTE) (test code = 2552) INTERPRETATION HEPATITIS B: (NOTE) (test code = 35893) INTERPRETATION HEPATITIS C: (NOTE) (test code = 53588) [id number] 00:00:00 Test Item Value Reference Range Interpretation Comments RPR RESULT (test code = NON-REACTIVE 3501) RPR TITER (test code = 3500) NOT INDIC. TITER HPV HIGH RISK WITH GENOTYPE, [id number] 00:00:00 Test Item Value Reference Range Interpretation Comments HPV HIGH RISK INTERP (test code = NEGATIVE 97476) HPV 16 (test code = 83393) NEGATIVE HPV 18 (test code = 08919) NEGATIVE HPV, HR, OTHER GENOTYPES (test code NEGATIVE = 17431) [id number] 00:00:00 Test Item Value Reference Range Interpretation Comments RPR RESULT (test code = NON-REACTIVE 3501) RPR TITER (test code = 3500) NOT INDIC. TITER [id number] 00:00:00 Test Item Value Reference Range Interpretation Comments RPR RESULT (test code = NON-REACTIVE 3501) RPR TITER (test code = 3500) NOT INDIC. TITER HPV HIGH RISK WITH GENOTYPE, [id number] 00:00:00 Test Item Value Reference Range Interpretation Comments HPV HIGH RISK INTERP (test code = NEGATIVE 76624) HPV 16 (test code = 91131) NEGATIVE HPV 18 (test code = 50861) NEGATIVE HPV, HR, OTHER GENOTYPES (test code NEGATIVE = 74782) VAGINAL PATHOGENS DNA [id number] 00:00:00 Test Item Value Reference Range Interpretation Comments ANNE MARIE SPECIES (test code = 41018) NEGATIVE G. VAGINALIS (test code = 40091) NEGATIVE T. VAGINALIS (test code = 34272) NEGATIVE VAGINAL PATHOGENS DNA [id number] 00:00:00 Test Item Value Reference Range Interpretation Comments ANNE MARIE SPECIES (test code = 55883) NEGATIVE G. VAGINALIS (test code = 20143) NEGATIVE T. VAGINALIS (test code = 55456) NEGATIVE GC AND CHLAMYDIA AMPLIFIED, [id number] 00:00:00 Test Item Value Reference Range Interpretation Comments GONORRHEA, TMA (test code = 58696) NEGATIVE CHLAMYDIA, TMA (test code = 65180) NEGATIVE HIV AB/AG COMBO RFLX [id number] 00:00:00 Test Item Value Reference Range Interpretation Comments HIV 1/2 4TH GEN, RFLX CONF (test NON-REACTIVE code = 3514) HIV AB/AG COMBO RFLX [id number] 00:00:00 Test Item Value Reference Range Interpretation Comments HIV 1/2 4TH GEN, RFLX CONF (test NON-REACTIVE code = 3514) GC AND CHLAMYDIA AMPLIFIED, [id number] 00:00:00 Test Item Value Reference Range Interpretation Comments GONORRHEA, TMA (test code = 26348) NEGATIVE CHLAMYDIA, TMA (test code = 58177) NEGATIVE ACUTE HEPATITIS [id number] 00:00:00 Test Item Value Reference Range Interpretation Comments HEPATITIS A IgM (test code = NON-REACTIVE 03283) HEPATITIS B CORE IgM (test code NON-REACTIVE = 4644) HEPATITIS B SURF AG (test code = NON-REACTIVE 2739) HEPATITIS C ANTIBODY (test code NON-REACTIVE = 4675) INTERPRETATION HEPATITIS A: (NOTE) (test code = 2552) INTERPRETATION HEPATITIS B: (NOTE) (test code = 15652) INTERPRETATION HEPATITIS C: (NOTE) (test code = 90750) PAP TEST, THINPREP, [id number] 00:00:00 Test Item Value Reference Range Interpretation Comments SOURCE: (test code = Endocervical 8001) SLIDES: (test code = 1 8011) LMP: (test code = 10/2020 8021) SPECIMEN ADEQUACY: (NOTE) (test code = 78325) INTERPRETATION: (test NILM/NO EPITH. code = 58396) ABNORMALITY;SEE BELOW GREASER AND OILER: RANJEET Riley(ASCP)[facility] (test code = 8101) LOCATION: (test code (NOTE) = 56047) CPT: (test code = (NOTE) 8140) ACUTE HEPATITIS [id number] 00:00:00 Test Item Value Reference Range Interpretation Comments HEPATITIS A IgM (test code = NON-REACTIVE 52779) HEPATITIS B CORE IgM (test code NON-REACTIVE = 4644) HEPATITIS B SURF AG (test code = NON-REACTIVE 2739) HEPATITIS C ANTIBODY (test code NON-REACTIVE = 4675) INTERPRETATION HEPATITIS A: (NOTE) (test code = 2552) INTERPRETATION HEPATITIS B: (NOTE) (test code = 32240) INTERPRETATION HEPATITIS C: (NOTE) (test code = 09004) PAP TEST, THINPREP, [id number] 00:00:00 Test Item Value Reference Range Interpretation Comments SOURCE: (test code = Endocervical 8001) SLIDES: (test code = 1 8011) LMP: (test code = 10/2020 8021) SPECIMEN ADEQUACY: (NOTE) (test code = 68313) INTERPRETATION: (test NILM/NO EPITH. code = 94520) ABNORMALITY;SEE BELOW GREASER AND OILER: RANJEET Riley(ASCP)[facility] (test code = 8101) LOCATION: (test code (NOTE) = 09769) CPT: (test code = (NOTE) 8140) HPV HIGH RISK WITH GENOTYPE, [id number] 00:00:00 Test Item Value Reference Range Interpretation Comments HPV HIGH RISK INTERP (test code = NEGATIVE 62386) HPV 16 (test code = 32025) NEGATIVE HPV 18 (test code = 65766) NEGATIVE HPV, HR, OTHER GENOTYPES (test code NEGATIVE = 37127) [id number] 00:00:00 Test Item Value Reference Range Interpretation Comments RPR RESULT (test code = NON-REACTIVE 3501) RPR TITER (test code = 3500) NOT INDIC. TITER [id number] 00:00:00 Test Item Value Reference Range Interpretation Comments RPR RESULT (test code = NON-REACTIVE 3501) RPR TITER (test code = 3500) NOT INDIC. TITER HPV HIGH RISK WITH GENOTYPE, [id number] 00:00:00 Test Item Value Reference Range Interpretation Comments HPV HIGH RISK INTERP (test code = NEGATIVE 92465) HPV 16 (test code = 59856) NEGATIVE HPV 18 (test code = 92103) NEGATIVE HPV, HR, OTHER GENOTYPES (test code NEGATIVE = 21712) [id number] 00:00:00 Test Item Value Reference Range Interpretation Comments RPR RESULT (test code = NON-REACTIVE 3501) RPR TITER (test code = 3500) NOT INDIC. TITER VAGINAL PATHOGENS DNA [id number] 00:00:00 Test Item Value Reference Range Interpretation Comments ANNE MARIE SPECIES (test code = ) NEGATIVE G. VAGINALIS (test code = ) NEGATIVE T. VAGINALIS (test code = ) NEGATIVE VAGINAL PATHOGENS DNA [id number] 00:00:00 Test Item Value Reference Range Interpretation Comments ANNE MARIE SPECIES (test code = ) NEGATIVE G. VAGINALIS (test code = 67366) NEGATIVE T. VAGINALIS (test code = ) NEGATIVE
[2022-10-20] MEDS ORDERED: LORazepam 2 MG/ML VIAL ONE (15:45)
[2022-10-20] MEDS ORDERED: Ringers Lactate 1,000 ML IV ONE (15:45)
[2022-10-20 15:53] LABS: Urine Blood Negative (Negative); Urine Glucose Negative (Negative); Urine Protein Trace (Negative); Urine Specific Gravity 1.015 (1.005-1.030)
[2022-10-20 16:07] LABS: Urine Specific Gravity/Preg 1.015 (1.005-1.030)
[2022-10-20 16:08] LABS: Absolute Lymphocytes (CBC) 3.5 K/uL (0.7-4.9); Hematocrit 41.6 % (36.0-45.0); Lymphocytes % 37.1 % (15.3-44.8); MCV 85.3 fL (80-100); MPV 7.9 fL (7.6-11.3); RBC Red Blood Cell Count 4.88 M/uL (3.86-4.86)
[2022-10-20 16:20] LABS: Protime INR 1.07
[2022-10-20 16:21] LABS: Barbiturates NEGATIVE (NEGATIVE); Benzodiazepines NEGATIVE (NEGATIVE); Cocaine NEGATIVE (NEGATIVE); METHAMPHETAM POSITIVE (NEGATIVE); Methadone NEGATIVE (NEGATIVE); Opiates NEGATIVE (NEGATIVE); Phencyclidine NEGATIVE (NEGATIVE); THC Cannibis NEGATIVE (NEGATIVE)
[2022-10-20 17:03] LABS: ALT/SGPT 68 U/L (13-56); AST/SGOT 30 U/L (15-37); Alkaline Phosphatase 74 U/L (45-117); BUN Blood Urea Nitrogen 15 mg/dL (7-18); Bicarbonate 26 mmol/L (21-32); Bilirubin Direct 0.1 mg/dL (0-0.2); Bilirubin Total 0.3 mg/dL (0.2-1.0); Glomerular Filtration Rate 77 ml/min (=/>90); Glucose Level 120 mg/dL (74-106); Potassium 3.1 mmol/L (3.5-5.1); Protein, Total 7.5 g/dL (6.4-8.2); Sodium Level 140 mmol/L (136-145)
[2022-10-20] MEDS ORDERED: dexAMETHasone 10 MG/ML VIAL ONE (18:00)
[2022-10-20] MEDS ORDERED: KETOROLAC 30 MG/ML INJ ONE (18:01)
[2022-10-20 19:52] VITALS: TEMP 98.7
[2022-10-20 19:54] VITALS: O2SAT 100
[2022-10-20 19:57] VITALS: BP 115/89
--- NOTE | 2022-10-23 13:11 | EKG ---
Test Date: 2022-10-20 Test Time: 16:05:33 Foam Caster: TM MEASUREMENT RESULTS: Intervals: Rate: 75 SD: 142 QRSD: 86 QT: 366 QTc: 408 [place]: P: 14 SD: 142 QRS: 49 T: 12 INTERPRETIVE STATEMENTS: Sinus rhythm with marked sinus arrhythmia Nonspecific T wave abnormality Abnormal ECG No previous ECG available for comparison Electronically Signed On 10-23-22 13:06:23 CDT by Jose Elias Mittal
--- NOTE | 2022-11-03 16:19 | ER ---
Nurse's Notes [facility] Name: Claudine Morales Age: 32 yrs Sex: Female : 1990 Arrival Date: 10/20/2022 Time: 14:39 Bed 12 Private MD: Diagnosis: Acute tonsillitis, unspecified Presentation: 10/20 14:46 Chief complaint: Patient states: Possible allergic reaction to Lomaira. 14:52 Chief complaint:. Coronavirus screen: Vaccine status: Patient reports receiving the 2nd nj1 dose of the covid vaccine. Ebola Screen: No symptoms or risks identified at this time. Initial Sepsis Screen: Does the patient meet any 2 criteria? No. Patient's initial sepsis screen is negative. Does the patient have a suspected source of infection? No. Patient's initial sepsis screen is negative. Risk Assessment: Do you want to hurt yourself or someone else? Patient reports no desire to harm self or others. Note Pt states she has been having trouble swallowing her medications for about a month, ever since she started taking Lomaira. Pt went to see her therapist today and was advised to come to ED for help. Onset of symptoms was September 2022. 14:52 Method Of Arrival: Ambulatory [facility] 14:52 Acuity: VANDANA 3 [facility] Triage Assessment: 14:58 General: Appears in no apparent distress. comfortable, obese, Behavior is calm, nj1 cooperative, appropriate for age. 15:01 Pain: Complains of pain in Throat. [facility] Historical: - Allergies: 14:58 Abilify; nj1 14:58 Lamictal; nj1 - PMHx: 14:58 Hypertensive disorder; Hypothyroidism; insomnia; mood disorder; PCOS; nj1 - Immunization history:: Client reports receiving the 2nd dose of the Covid vaccine. - Social history:: Smoking status: Patient/guardian denies using tobacco, the patient reports quitting approximately 11 years ago. Screenin:48 [facility] ED Fall Risk Assessment (Adult) History of falling in the last 3 months, mb9 including since admission No falls in past 3 months (0 pts) Confusion or Disorientation No (0 pts) Intoxicated or Sedated No (0 pts) Impaired Gait No (0 pts) Mobility Assist Device Used No (0 pt) Altered Elimination No (0 pt) Score/Fall Risk Level 0 - 2 = Low Risk Oriented to surroundings, Maintained a safe environment, Educated pt \T\ family on fall prevention, incl call for assistance when getting out of bed. Abuse screen: Denies threats or abuse. Nutritional screening: No deficits noted. Tuberculosis screening: No symptoms or risk factors identified. Assessment: 15:48 Reassessment: pt brought back to ER room. mb9 16:00 General: Appears in no apparent distress. Behavior is anxious. Pain: Complains of pain ph in throat. 16:00 Neuro: Level of Consciousness is awake, alert, obeys commands, Oriented to person, ph place, time, situation, Appropriate for age. Cardiovascular: Patient's skin is warm and dry. Rhythm is regular. Respiratory: Airway is patent Respiratory effort is even, unlabored, Respiratory pattern is regular, symmetrical. GI: No deficits noted. : No deficits noted. EENT: Oral mucosa is moist. Throat is clear. Derm: Skin is pink, warm \T\ dry. Musculoskeletal: Range of motion: intact in all extremities. 17:03 Reassessment: Patient and/or family updated on plan of care and expected duration. Pain ph level reassessed. Patient is alert, oriented x 3, equal unlabored respirations, skin warm/dry/pink. pt states she is feeling less anxious. 19:09 Reassessment: Patient and/or family updated on plan of care and expected duration. Pain mb9 level reassessed. Patient is alert, oriented x 3, equal unlabored respirations, skin warm/dry/pink. Patient states feeling better. Patient states symptoms have improved. Vital Signs: 14:52 BP 136 / 103; Pulse 102; Resp 20; Temp 98.7(O); Pulse Ox 99% ; Pain 3/10; nj1 16:02 BP 120 / 109; Pulse 94; Resp 20; Pulse Ox 100% ; ph 17:03 BP 102 / 69; Pulse 69; Resp 18; Pulse Ox 100% on R/A; ph 19:09 BP 115 / 89; Pulse 72; Resp 18; Pulse Ox 100% ; mb9 14:52 Pain Scale: Adult ri1 ED Course: 14:39 Patient arrived in ED. jj6 14:40 Omar Maldonado PA is PHCP. [facility] 14:40 Matthias Sanchez MD is Attending Physician. [facility] 14:58 Triage completed. nj1 15:48 Latonya Walker, RN is Primary Nurse. mb9 15:48 Arm band placed on. mb9 15:48 Placed in gown. Bed in low position. Call light in reach. Side rails up X 1. Client mb9 placed on continuous cardiac and pulse oximetry monitoring. NIBP monitoring applied. monitoring specialist on. 15:49 No provider procedures requiring assistance completed. mb9 15:55 Urine collected: clean catch specimen, cloudy, Strep swab sent to lab. tm3 16:02 Acetaminophen Sent. ph 16:02 Basic Metabolic Panel Sent. ph 16:02 CBC with Diff Sent. ph 16:02 Salicylate Sent. ph 16:02 ETOH Level Sent. ph 16:02 Hepatic Function Sent. ph 16:02 PT-INR Sent. ph 16:02 Ptt, Activated Sent. ph 16:02 Urine Drug Screen Sent. ph 16:02 Inserted saline lock: 22 gauge in right hand, using aseptic technique. ph 16:08 EKG done, by ED staff. tm3 18:42 Mita Gore MD is Referral Physician. [email or web address] 19:13 IV discontinued, intact, bleeding controlled, No redness/swelling at site. Pressure mb9 dressing applied. Administered Medications: 16:01 Drug: Lactated Ringers Solution IV 1000 ml Route: IV; Rate: 1000 bolus; Site: right ph hand; 16:01 Drug: Ativan IVP 1 mg Route: IVP; Site: right hand; ph 16:35 Follow up: Response: No adverse reaction ph 18:01 Drug: Decadron - Dexamethasone IVP 10 mg Route: IVP; Site: right hand; ph 18:01 Drug: Ketorolac IVP 30 mg Route: IVP; Site: right hand; ph Medication: 15:48 VIS not applicable for this client. mb9 Outcome: 18:43 Discharge ordered by . jmm 19:13 Discharged to home ambulatory. mb9 19:13 Condition: stable 19:13 Discharge instructions given to patient, Instructed on discharge instructions, follow up and referral plans. Demonstrated understanding of instructions, follow-up care, medications, Prescriptions given X 2. 19:14 Patient left the ED. mb9 Signatures: GregoriaChristianoi tm3 Omar Maldonado PA PA jmm Hall, Patricia, RN RN ph Elise Loera Latonya Walker, RN RN mb9 Telly Josi, RN RN nj1
--- NOTE | 2022-11-03 16:19 | EDPHYS ---
Physician Documentation [facility] Name: Claudine Morales Age: 32 yrs Sex: Female : 1990 Arrival Date: 10/20/2022 Time: 14:39 Bed 12 Private MD: ED Physician Matthias Sanchez HPI: 10/20 14:55 This 32 yrs old Female presents to ER via Ambulatory with complaints of Anxiety, jmm Possible Medication Reaction. 14:55 The patient presents to the emergency department with vomiting. Onset: The jmm symptoms/episode began/occurred gradually. Is a 32-year-old female with history of hypertension, hypothyroidism, mood disorder presents emerged department with complaints of difficulty tolerating her pills. Patient states she takes 13 pills has been having progressively worsening sore throat. She is able to tolerate food and fluids but when she swallows her pills she will often vomit them. Patient is concerned that she may have an adverse reaction to one of her newer medications. Patient was prescribed Lomaira and topiramate most recently. Historical: - Allergies: 14:58 Abilify; nj1 14:58 Lamictal; nj1 - PMHx: 14:58 Hypertensive disorder; Hypothyroidism; insomnia; mood disorder; PCOS; nj1 - Immunization history:: Client reports receiving the 2nd dose of the Covid vaccine. - Social history:: Smoking status: Patient/guardian denies using tobacco, the patient reports quitting approximately 11 years ago. ROS: 14:55 Constitutional: Negative for fever, chills, and weight loss, Cardiovascular: Negative jmm for chest pain, palpitations, and edema, Respiratory: Negative for shortness of breath, cough, wheezing, and pleuritic chest pain. 14:55 ENT: Positive for sore throat. 14:55 Abdomen/GI: Positive for vomiting. 14:55 All other systems are negative. Exam: 14:55 Constitutional: This is a well developed, well nourished patient who is awake, alert, jmm and in no acute distress. Head/Face: atraumatic. Eyes: EOMI, no conjunctival erythema appreciated 14:55 Neck: Trachea midline, Supple Chest/axilla: Normal chest wall appearance and motion. Cardiovascular: Regular rate and rhythm. No edema appreciated Respiratory: Normal respirations, no respiratory distress appreciated Abdomen/GI: Non distended Back: Normal ROM Skin: General appearance color normal MS/ Extremity: Moves all extremities, no obvious deformities appreciated, no edema noted to the lower extremities Neuro: Awake and alert Psych: Behavior is normal, Mood is normal, Patient is cooperative and pleasant 14:55 ENT: Posterior pharynx: Tonsils: enlarged on the right, enlarged on the left, with erythema, erythema, that is mild. Vital Signs: 14:52 BP 136 / 103; Pulse 102; Resp 20; Temp 98.7(O); Pulse Ox 99% ; Pain 3/10; nj1 16:02 BP 120 / 109; Pulse 94; Resp 20; Pulse Ox 100% ; ph 17:03 BP 102 / 69; Pulse 69; Resp 18; Pulse Ox 100% on R/A; ph 19:09 BP 115 / 89; Pulse 72; Resp 18; Pulse Ox 100% ; mb9 14:52 Pain Scale: Adult nj1 MDM: 15:03 Patient medically screened. [facility] 18:41 Differential diagnosis: Acute pharyngitis, gastroenteritis, adverse reaction to jmm medicaments. Data reviewed: vital signs, nurses notes. I considered the following discharge prescriptions or medication management in the emergency department Medications were administered in the Emergency Department. See MAR. Counseling: I had a detailed discussion with the patient and/or guardian regarding: the historical points, exam findings, and any diagnostic results supporting the discharge/admit diagnosis, lab results, the need for outpatient follow up, to return to the emergency department if symptoms worsen or persist or if there are any questions or concerns that arise at home. ED course: Patient is alert nontoxic in appearance in the ED. Patient is able to tolerate p.o. in the ED. Advised to follow-up with ENT for further evaluation of throat discomfort. Patient otherwise given strict return precautions. Patient understood agrees plan of care.. 03 14:55 Order name: Acetaminophen; Complete Time: 17:29 [facility] 10/20 14:55 Order name: Basic Metabolic Panel; Complete Time: 17:29 [facility] 10/20 14:55 Order name: CBC with Diff; Complete Time: 16:09 [facility] 10/20 14:55 Order name: ETOH Level; Complete Time: 17:29 [facility] 10/20 14:55 Order name: Hepatic Function; Complete Time: 17:29 [facility] 10/20 14:55 Order name: PT-INR; Complete Time: 16:33 [facility] 10/20 14:55 Order name: Ptt, Activated; Complete Time: 16:33 [facility] 10/20 14:55 Order name: Salicylate; Complete Time: 17:44 [facility] 10/20 14:55 Order name: Urine Drug Screen; Complete Time: 16:33 [facility] 10/20 15:04 Order name: Strep; Complete Time: 16:09 [facility] 10/20 15:53 Order name: Urine Dipstick-Ancillary; Complete Time: 15:57 [facility] 10/20 15:55 Order name: Urine --Ancillary (enter results); Complete Time: 16:09 10/20 16:04 Order name: Throat Culture [facility] 10/20 14:55 Order name: EKG; Complete Time: 14:56 [facility] 10/20 14:55 Order name: EKG - Nurse/Tech; Complete Time: 16:02 [facility] 10/20 14:55 Order name: IV Saline Lock; Complete Time: 16:01 [facility] 10/20 14:55 Order name: Labs collected and sent; Complete Time: 16:01 [facility] 10/20 14:55 Order name: Urine Dipstick-Ancillary (obtain specimen); Complete Time: 16:01 [facility] Administered Medications: 16:01 Drug: Lactated Ringers Solution IV 1000 ml Route: IV; Rate: 1000 bolus; Site: right ph hand; 16:01 Drug: Ativan IVP 1 mg Route: IVP; Site: right hand; ph 16:35 Follow up: Response: No adverse reaction ph 18:01 Drug: Decadron - Dexamethasone IVP 10 mg Route: IVP; Site: right hand; ph 18:01 Drug: Ketorolac IVP 30 mg Route: IVP; Site: right hand; ph Disposition Summary: 10/20/22 18:43 Discharge Ordered Location: Home [facility] Condition: Stable [facility] Diagnosis - Acute tonsillitis, unspecified [facility] Followup: [facility] - With: Mita Gore MD - When: 2 - 3 days - Reason: Recheck today's complaints, Continuance of care, Re-evaluation by your physician Discharge Instructions: - Discharge Summary Sheet [facility] - Tonsillitis [facility] Forms: - Medication Reconciliation Form [facility] - Thank You Letter [facility] - Antibiotic Education [facility] - Prescription Opioid Use [facility] Prescriptions: - ondansetron 4 mg Oral Tablet,disintegrating - take 1 tablet by ORAL route every 4-6 hours As needed; 20 tablet; Refills: 0, [facility] Product Selection Permitted - Amoxicillin 875 mg Oral Tablet - take 1 tablet by ORAL route every 12 hours for 10 days; 20 tablet; Refills: 0, [facility] Product Selection Permitted Addendum: 10/23/2022 08:44 Co-signature as Attending Physician, Matthias ESCOBAR I reviewed the patient's care r n provided by the Advanced Practice Provider and agree with the diagnosis and treatment plan. Signatures: Dispatcher [employer] EDMS Omar Maldonado PA PA jmm Nieto, Roman, MD MD rn Hall, Patricia, RN RN ph Josi Varner RN RN nj1
== END 2022-10-20 19:14 | disposition home or self-care (01) ==
LOC: ER 14:36
DX: J03.90 Acute tonsillitis, unspecified (principal); R11.10 Vomiting, unspecified; Z88.8 Allergy status to other drugs, medicaments and biological substances
CPT/HCPCS: 93005; 87070; 85025; 80048; 36415; 81025; 85610; 80076; 87081; 85730; 81003; 80307; 96375; 96374; 99284; J1100; J7120; G0480 ×3

== ENCOUNTER 2022-12-08 20:19 | Emergency (ER) | payer OTHER ==
--- OUTSIDE RECORDS SUMMARY | 2022-12-08 20:33 | XMS REPORT | Continuity of Care Document ---
:1990 Author Organization [facility] t Address [address] [place] [address] [place] [id number] Care Team Providers Name Role Phone MARGIE DIAMOND Primary Care Physician Unavailable Margie Damon Attending Clinician Yamil PHOENIX Attending Clinician Unavailable Yamil Monroy Attending Clinician YOON PAGE Attending Clinician Unavailable Yoon Page MD Attending Clinician Doctor Unassigned, [place] Attending Clinician Unavailable Pgy2 Attending Clinician Unavailable Marques Mansfield MD Attending Clinician [facility] Resident Attending Clinician Unavailable Aracely Villanueva MD Attending Clinician Dena Santos MD Attending Clinician [phone] Jeanette Henley MD Attending Clinician JEANETTE HENLEY Attending Clinician Unavailable BEBE GABRIEL Attending Clinician Unavailable Yamil [place] Admitting Clinician Unavailable YOON PAGE Admitting Clinician Unavailable Payers Payer Name Policy Type Policy Number Effective Date Expiration Date S ource Problems Condition Condition Condition Status Onset Resolution Last Treating Co mments Source Name Details Category Date Date Treatment Clinician Date No known No known Disease Unive rs active active ity of problems problems [facility] Allergies, Adverse Reactions, Alerts Allergy Allergy Status Severity Reaction(s) Onset Inactive Treating Comm ents Source Name Type Date Date Clinician Alicia Carrasco Active 2022-0 - Oral ty to 8-25 adverse 00:00: reaction 00 to drug NO KNOWN Drug Active [facility]ERGIE Class [facility] [place] [facility] Social History Social Habit Start Date Stop Date Quantity Comments Source Exposure to Not sure [facility] SARS-CoV-2 (event) Medica l Branch Alcohol intake 2021-06-24 2021-06-24 [facility] 00:00:00 00:00:00 Medical Branch Sex Ass[birth year] At [birth year] [facility] 00:00:00 00:00:00 Medical Branch Smoking Status Start Date Stop Date Source Tobacco smoking consumption [facility] Medical unknown Branch Medications Ordered Filled Start Stop Current Ordering [...] 2021-08 No Unknown 2-15 00:00: 00 Dose 2021-1 No Unknown 2-15 00:00: 00 Dose 2-1 No Unknown 2-15 00:00: 00 Dose 2-1 No Unknown 2-15 00:00: 00 Dose 2-1 [...] 8- 00:00: 00 Dose 2-0 No Unknown 8-08 00:00: 00 Dose 2-0 No Unknown 8- 00:00: 00 Dose 2-0 No Unknown 8-08 00:00: 00 Dose 2022-0 No Unknown 8 [...] 00:00: 00 TAKE 1 2-0 No TABLET 8- TWICE 00:00: DAILY. 00 TAKE 1 2-0 [...] 10 mg 8-02 tablet 00:00: 00 Seroquel 2022-0 No 1mg 100 mg 8-02 tablet 00:00: [...] release Trileptal 2-0 No 1mg 150 mg 8-02 tablet 00:00: [...] 8- 00:00: 00 Dose 2022-0 No Unknown 7- 00:00: 00 Dose 2022-0 No Unknown 7-30 [...] Dose 2022-0 No Unknown 7-19 00:00: 00 TAKE 1 [...] mg 7-19 tablet 00:00: 00 Lamictal 25 2022-0 No 2mg mg tablet 7-19 00:00: 00 [...] 630 00:00: 00 Dose 2022-0 No Unknown 6 00:00: 00 Dose 2022-0 No Unknown 630 00:00: 00 Dose 2022-0 No Unknown 6 00:00: 00 levothyroxi 2022-0 No 1mcg ne [...] one 50 mg 4-17 tablet 00:00: 00 levothyroxi 2022-0 No 1mcg [...] one 50 mg 4-14 tablet 00:00: 00 Wellbutrin 2022-0 No 1mg [...] No Unknown 4-05 00:00: 00 Celexa 20 2022-0 No 1mg mg tablet 4-05 00:00: 00 [...] hr 00:00: tablet, 00 extended release Dose 2021-0 No Unknown 1-11 00:00: 00 Dose 2-0 [...] 2020-1 No Unknown 2-20 00:00: 00 omeprazole 2021-1 No 1mg 40 mg 2-20 capsule,del 00:00: ayed 00 release maalox:diph 2020-08- No 15mL 15 mL, Uni vers enhydrAMINE [...] 07/27/21 at 1330, Routine famotidine 2020-08 Yes [id number] 40mg Take 1 Univers (PEPCID) 40 2-15 tablet by ity of mg tablet 00:00: mouth [place] 00 daily. Medical Branch ibuprofen 2020-08 Yes [id number] 600mg Take 1 U nivers 600 mg 2-15 tablet by ity of tablet 00:00: mouth [place] 00 every 6 Medical (six) Branch hours as needed for Pain (scale 4-6). methocarbam 2020-08 Yes [id number] 500mg Take 1 Univers oL 500 mg 2-15 tablet by ity o f tablet 00:00: mouth 4 [place] 00 (four) Medical times Branch daily. famotidine 2020-08 Yes [id number] 40mg Take 1 Univers (PEPCID) 40 2-15 tablet by ity of mg tablet 00:00: mouth 00 daily. Medical Branch ibuprofen 2020-08 Yes [id number] 600mg Take 1 U nivers 600 mg 2-15 tablet by ity of tablet 00:00: mouth [place] 00 every 6 Medical (six) Branch hours as needed for Pain (scale 4-6). methocarbam 2020-08 Yes [id number] 500mg Take 1 Univers oL 500 mg 2-15 tablet by ity o f tablet 00:00: mouth 4 00 (four) Medical times Branch daily. Dose 2020-08 No Unknown 2-15 00:00: 00 hydroxyzine 2020-08 No 1mg HCl 50 mg 2-15 tablet 00:00: 00 Dose 2020-08 No Unknown 2-15 00:00: 00 Dose 2020-08 No Unknown 2-15 00:00: 00 hydroxyzine 2020-08 No 1mg HCl 50 mg 2-15 tablet 00:00: 00 Dose 2020-08 No Unknown 2-15 00:00: 00 Dose 2020-08 No Unknown 2-15 00:00: 00 hydroxyzine 2020-08 No 1mg HCl 50 mg 2-15 tablet 00:00: 00 Dose 2020-08 No Unknown 2-15 00:00: 00 Dose 2020-08 No Unknown 2-15 00:00: 00 hydroxyzine 2020-08 No 1mg HCl 50 mg 2-15 tablet 00:00: 00 Dose 2020-08 No Unknown 2-15 00:00: 00 Dose 2020-08 No Unknown 2-15 00:00: 00 hydroxyzine 2020-08 No 1mg HCl 50 mg 2-15 tablet 00:00: 00 Dose 2020-08 No Unknown 2-15 00:00: 00 sertraline 2020-08 No 15mg 100 mg 1-18 tablet 00:00: 00 hydroxyzine 2020-08 No 1mg HCl 50 mg 1-18 tablet 00:00: 00 trazodone 2020-08 No 2mg 100 mg 1-18 tablet 00:00: 00 sertraline 2020-08 No 15mg 100 mg 1-18 tablet 00:00: 00 hydroxyzine 2020-08 No 1mg HCl 50 mg 1-18 tablet 00:00: 00 trazodone 2020-08 No 2mg 100 mg 1-18 tablet 00:00: 00 sertraline 2020-08 No 15mg 100 mg 1-18 tablet 00:00: 00 hydroxyzine 2020-08 No 1mg HCl 50 mg 1-18 tablet 00:00: 00 trazodone 2020-08 No 2mg 100 mg 1-18 tablet 00:00: 00 sertraline 2020-08 No 15mg 100 mg 1-18 tablet 00:00: 00 hydroxyzine 2020-08 No 1mg HCl 50 mg 1-18 tablet 00:00: 00 trazodone 2020-08 No 2mg 100 mg 1-18 tablet 00:00: 00 sertraline 2020-08 No 15mg 100 mg 1-18 tablet 00:00: 00 hydroxyzine 2020-08 No 1mg HCl 50 mg 1-18 tablet 00:00: 00 trazodone 2020-08 No 2mg 100 mg 1-18 tablet 00:00: 00 acetaminoph 2020-08- No 1000mg 1,000 mg, Univers en 13 11-13 Oral, ity of (TYLENOL) 05:45: 04:43 ONCE, 1 [place] tablet 00 :[place] dose, On Medical 1,000 mg Fri Branch 06/24/21 at 2345, Routine Dose 2020-08 No Unknown 1-04 00:00: 00 Dose 2020-08 No Unknown - 00:00: 00 Dose 2020-08 No Unknown 1- 00:00: 00 Abilify 2 2020-08 No 1mg mg tablet 1- 00:00: 00 Dose 2020-08 No Unknown 1-04 00:00: 00 Dose 2020-08 No Unknown 1-04 00:00: 00 Dose 2020-08 No Unknown 1-04 00:00: 00 Abilify 2 2020-08 No 1mg mg tablet 1- 00:00: 00 Dose 2020-08 No Unknown 1- 00:00: 00 Dose 2020-08 No Unknown 1- 00:00: 00 Dose 2020-08 No Unknown 1- 00:00: 00 Abilify 2 2020-08 No 1mg mg tablet 1- 00:00: 00 Dose 2020-08 No Unknown 1- 00:00: 00 Dose 2021-1 No Unknown 1-04 00:00: 00 Dose 1-1 No Unknown 1- 00:00: 00 Abilify 2 2020-1 No 1mg mg tablet 1- 00:00: 00 Dose 1-1 No Unknown 1- 00:00: 00 Dose 1-1 No Unknown 1- 00:00: 00 Dose 1-1 No Unknown 1- 00:00: 00 Abilify 2 2020-1 No 1mg mg tablet 1- 00:00: 00 Zoloft 100 2020-1 No 1mg mg tablet 0-18 00:00: 00 Zoloft 100 2020-1 No 1mg mg tablet 0-18 00:00: 00 hydroxyzine 2020-1 No 1mg HCl 50 mg 0-18 tablet 00:00: 00 hydroxyzine 2020-1 No 1mg HCl 50 mg 0-18 tablet 00:00: 00 trazodone 2020-1 No 1mg 100 mg 0-18 tablet 00:00: 00 hydroxyzine 2020-1 [...] 50 mg 9-20 tablet 00:00: 00 Dose 1-0 No Unknown 9-20 00:00: 00 sertraline 1-0 No 1mg 50 mg 9-20 tablet 00:00: 00 Dose 1-0 No Unknown 9-20 00:00: 00 sertraline 1-0 No 1mg 50 mg 9-20 tablet 00:00: 00 Dose 1-0 No Unknown 9-20 00:00: 00 sertraline 1-0 No 1mg 50 mg 9-20 tablet 00:00: 00 Dose 1-0 No Unknown 9-20 00:00: 00 sertraline 1-0 No 1mg 50 mg 9-20 tablet 00:00: 00 Dose 1-0 No Unknown 9-20 00:00: 00 levonorgest 2020-0 2020- No [id number] 1{devic Univers reL 01-05 100 e} ity of (LILETTA) 21:00: 21:00 [place] IUD 1 00 :00 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 01/05/21 at 1600, Routine levonorgest 2020- No [id number] 1{devic Univers reL 01-05 100 e} ity of (LILETTA) 21:00: 21:00 [place] IUD 1 00 :00 [facility] Coord[facility] Branch ibuprofen 2020- No [id number] 800mg Univers (IBU) 01-05- 100 ity of tablet 800 21:00: 21:00 [place] mg 00 :00 [facility] ibuprofen 2020- No [id number] 800mg 800 mg, Univers (IBU) 01-05 05- 100 Oral, ity of tablet 800 21:00: 21:00 ONCE, 1 [place] mg 00 :00 dose, [facility] 01/05/21 at Branch 1600, Routine levonorgest 2020- No [id number] 1{devic 1 Device, Univers reL 01-05 100 e} Intrauteri ity of (LILETTA) 21:00: 21:00 [place] 1 [place] :00 1 dose, Production Coordinator 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 Branch ibuprofen 2020- No [id number] 800mg Univers (IBU) 01-05 05- 100 ity of tablet 800 21:00: 21:00 [place] mg 00 :00 [facility] [place] ibuprofen 2020-2020- No [id number] 800mg 800 mg, Univers (IBU) 01-05 100 Oral, ity of tablet 800 21:00: 21:00 ONCE, 1 [place] mg 00 :00 dose, Wed Medical 01/05/21 at Branch 1600, Routine levonorgest 2020- No [id number] 1{devic 1 Device, Univers reL 01-05 100 e} Intrauteri ity of (LILETTA) 21:00: 21:00 [place] 1 [place] :00 1 dose, Production Coordinator [place] 01/05/21 at 1600, Routine levonorgest 2026- No by [facility] [place] [facility] 01-05 Intrauteri ity of (LILETTA 00:00: 04:59 ne route. [place] INTRAUTERIN 00 :00 Medical E) Branch levonorgest 2026- No by [facility] [place] [facility] 01-05 Intrauteri ity of (LILETTA 00:00: 04:59 ne route. [place] as INTRAUTERIN 00 :00 Medical E) Branch levonorgest 2026- No by [facility] [place] [facility] 01-05 Intrauteri ity of (LILETTA 00:00: 04:59 ne route. [place] INTRAUTERIN 00 :00 Medical E) Branch levonorgest 2026- No by [facility] [place] [facility] 01-05 Intrauteri ity of (LILETTA 00:00: 04:59 ne route. [place] INTRAUTERIN 00 :00 Medical E) Branch levonorgest 2026- No by [facility] [place] [facility] 01-05 Intrauteri ity of (LILETTA 00:00: 04:59 ne route. [place] as INTRAUTERIN 00 :00 Medical E) Branch levonorgest 2026- No by [facility] [place] [facility] 01-05 Intrauteri ity of (LILETTA 00:00: 04:59 ne route. [place] INTRAUTERIN 00 :00 Medical E) Branch levonorgest 2026- No by [facility] [place] [facility] 01-05 Intrauteri ity of (LILETTA 00:00: 04:59 ne route. [place] INTRAUTERIN 00 :00 Medical E) Branch ProAir HFA 2021-0 No 2mcg/ac 90 5-03 [...] 00:00: on aerosol 00 inhaler ProAir HFA 2021-0 No 2mcg/ac 90 5-03 tuation mcg/actuati 00:00: on aerosol 00 inhaler Tessalon 1-0 No 1mg Perles 100 5-03 mg capsule 00:00: 00 Tessalon 1-0 No 1mg Perles 100 5-03 [...] mg 4-09 tablet 00:00: 00 mupirocin 2 2020-0 No 1% [...] 00 Diflucan 1-0 No 1mg 150 mg 4- tablet 00:00: 00 No known No [facility] medications [facility] No known No Univers medications [facility] No known No Univers medications [facility] Immunizations Ordered Filled Immunization Date Status Comments Sour e Immunization Name Name SARS-COV-2 COVID-19 2020-12-02 Completed Unive rsity of PFIZER VACCINE 00:00:00 [facility] SARS-COV-2 COVID-19 2020-12-02 Completed Unive rsity of PFIZER VACCINE 00:00:00 [facility] SARS-COV-2 COVID-19 2020-12-02 Completed Unive rsity of PFIZER VACCINE 00:00:00 [facility] SARS-COV-2 COVID-19 2020-12-02 Completed Unive rsity of PFIZER VACCINE 00:00:00 [facility] SARS-COV-2 COVID-19 2020-12-02 Completed Unive rsity of PFIZER VACCINE 00:00:00 [facility] SARS-COV-2 COVID-19 2020-12-02 Completed Unive rsity of PFIZER VACCINE 00:00:00 [facility] SARS-COV-2 COVID-19 2020-12-02 Completed Unive rsity of PFIZER VACCINE 00:00:00 [facility] SARS-COV-2 COVID-19 2020-12-02 Completed Unive rsity of PFIZER VACCINE 00:00:00 [facility] SARS-COV-2 COVID-19 2020-12-02 Completed Unive rsity of PFIZER VACCINE 00:00:00 [facility] SARS-COV-2 COVID-19 2020-12-02 Completed Unive rsity of PFIZER VACCINE 00:00:00 [facility] Branch SARS-COV-2 COVID-19 2020-12-02 Completed Unive rsity of PFIZER VACCINE 00:00:00 [facility] SARS-COV-2 COVID-19 2020-12-02 Completed Unive rsity of PFIZER VACCINE 00:00:00 [facility] Branch SARS-COV-2 COVID-19 2020-12-02 Completed Unive rsity of PFIZER VACCINE 00:00:00 [facility] SARS-COV-2 COVID-19 2020-12-02 Completed Unive rsity of PFIZER VACCINE 00:00:00 [facility] Branch SARS-COV-2 COVID-19 2020-12-02 Completed Unive rsity of PFIZER VACCINE 00:00:00 [facility] SARS-COV-2 COVID-19 2020-11-09 Completed Unive rsity of PFIZER VACCINE 00:00:00 [facility] SARS-COV-2 COVID-19 2020-11-09 Completed Unive rsity of PFIZER VACCINE 00:00:00 [facility] SARS-COV-2 COVID-19 2020-11-09 Completed Unive rsity of PFIZER VACCINE 00:00:00 [facility] SARS-COV-2 COVID-19 2020-11-09 Completed Unive rsity of PFIZER VACCINE 00:00:00 [facility] SARS-COV-2 COVID-19 2020-11-09 Completed Unive rsity of PFIZER VACCINE 00:00:00 [facility] Branch SARS-COV-2 COVID-19 2020-11-09 Completed Unive rsity of PFIZER VACCINE 00:00:00 [facility] SARS-COV-2 COVID-19 2020-11-09 Completed Unive rsity of PFIZER VACCINE 00:00:00 [facility] SARS-COV-2 COVID-19 2020-11-09 Completed Unive rsity of PFIZER VACCINE 00:00:00 [facility] SARS-COV-2 COVID-19 2020-11-09 Completed Unive rsity of PFIZER VACCINE 00:00:00 [facility] SARS-COV-2 COVID-19 2020-11-09 Completed Unive rsity of PFIZER VACCINE 00:00:00 [facility] SARS-COV-2 COVID-19 2020-11-09 Completed Unive rsity of PFIZER VACCINE 00:00:00 [facility] SARS-COV-2 COVID-19 2020-11-09 Completed Unive rsity of PFIZER VACCINE 00:00:00 [facility] SARS-COV-2 COVID-19 2020-11-09 Completed Unive rsity of PFIZER VACCINE 00:00:00 [facility] SARS-COV-2 COVID-19 2020-11-09 Completed Unive rsity of PFIZER VACCINE 00:00:00 [facility] SARS-COV-2 COVID-19 2020-11-09 Completed Unive rsity of PFIZER VACCINE 00:00:00 [facility] Vital Signs Vital Name Observation Time Observation Value Comments Source Heart rate 2021-07-27 21:30:00 62 /min [facility] Respiratory rate 2021-07-27 21:30:00 22 /[facility] in 2021-07-27 21:30:00 95 /min [facility] Arterial blood by [facility] Pulse oximetry Branch Systolic blood 2021-07-27 21:25:00 137 mm[Hg] Univer sity of pressure [facility] Diastolic blood 2021-07-27 21:25:00 77 mm[Hg] Unive rsity of pressure [facility] Body temperature 2021-07-27 18:35:24 36.78 Cele Univ ersity of [facility] Body height 2021-07-27 18:02:00 147.3 cm [facility] Body weight 2021-07-27 18:02:00 124.739 kg [facility] BMI 2021-07-27 18:02:00 57.48 kg/m2 [facility] Systolic blood 2021-06-25 05:00:00 134 mm[Hg] Univer sity of pressure [facility] Diastolic blood 2021-06-25 05:00:00 60 mm[Hg] Unive rsity of pressure [facility] Heart rate 2021-06-25 05:00:00 78 /min [facility] Respiratory rate 2021-06-25 05:00:00 27 /min Univ ersity of [facility] Oxygen saturation in 2021-06-25 05:00:00 97 /min University of Arterial blood by [facility] Pulse oximetry Branch Body temperature 2021-06-25 04:16:00 36.94 Cele Univ ersity of [facility] Branch Body height 2021-06-25 04:16:00 147.3 cm [facility] [place] [facility] Body weight 2021-06-25 04:16:00 127.007 kg [facility] [place] [facility] BMI 2021-06-25 04:16:00 58.52 kg/m2 Universi ty of [facility] Systolic blood 2021-02-17 19:29:00 124 mm[Hg] Univer sity of pressure [place] [facility] Diastolic blood 2021-02-17 19:29:00 88 mm[Hg] Unive rsity of pressure [facility] Heart rate 2021-02-17 19:29:00 89 /min Universi ty of [facility] Respiratory rate 2021-02-17 19:29:00 18 /min Univ ersity of [facility] Body weight 2021-02-17 19:29:00 126.281 kg [facility] [place] [facility] BMI 2021-02-17 19:29:00 56.23 kg/m2 [facility] [place] [facility] Systolic blood 2021-01-05 19:16:00 132 mm[Hg] Univer sity of [facility] [place] [facility] Diastolic blood 2021-01-05 19:16:00 88 mm[Hg] Unive rsity of pressure [facility] Heart rate 2021-01-05 19:16:00 89 /min Universi ty of [facility] Body temperature 2021-01-05 19:16:00 37.28 Cele Univ ersity of [facility] Respiratory rate 2021-01-05 19:16:00 18 /min Univ ersity of [facility] Body height 2021-01-05 19:16:00 149.9 cm [facility] [place] [facility] Body weight 2021-01-05 19:16:00 125.51 kg [facility] [place] [facility] BMI 2021-01-05 19:16:00 55.89 kg/m2 [facility]i ty [facility] Systolic blood 2020-12-07 19:42:00 124 mm[Hg] Univer sity of pressure [facility] Diastolic blood 2020-12-07 19:42:00 86 mm[Hg] Unive rsity of pressure [facility] Heart rate 2020-12-07 19:42:00 89 /min [facility] Respiratory rate 2020-12-07 19:42:00 19 /[facility] Body height 2020-12-07 19:42:00 152.4 cm [facility] Body weight 2020-12-07 19:42:00 127.551 kg [facility] BMI 2020-12-07 19:42:00 54.92 kg/m2 [facility] BP Systolic 2022-08-30 11:27:00 120 mm[Hg] BP [...] Procedure Date / Time Performed Performing Clinician Sourc e TROPONIN I 2021-07-27 20:28:00 Yamil Phoenix [facility] D-DIMER 2021-07-27 20:27:00 Yamil [facility] XR CHEST 1 VW 2021-07-27 19:38:35 Yamil [facility] POCT TEST 2021-07-27 18:28:00 Yamil Phoenix [facility] URINALYSIS 2021-07-27 18:26:00 Siddharth, [facility] MAGNESIUM 2021-07-27 18:06:00 [facility] TROPONIN I 2021-07-27 18:06:00 Siddharth, [facility] COMP. METABOLIC PANEL 2021-07-27 18:06:00 Siddharth, [facility] ([id number]) [facility] CBC WITH DIFF 2021-07-27 18:06:00 [facility] CT HEAD WO CONTRAST 2021-06-25 05:12:41 Yoon Page [facility] NOTICE OF PRIVACY 2021-06-25 04:02:52 Doctor Unassigned, No [facility] CONSENT/REFUSAL FOR 2021-06-25 04:01:22 Doctor Unassigned, No [facility] DIAGNOSIS AND [facility] TREATMENT DISCLOSURE AND 2021-01-06 05:01:00 [facility]ENT, MEDICAL AND Name Medical [facility] SURGICAL PROCEDURES POCT TEST 2021-01-05 19:26:00 Aracely Villanueva [facility] POCT TEST 2020-12-07 20:47:00 Fern Moctezuma [facility] ASSIGNMENT OF BENEFITS 2020-12-07 19:26:29 Doctor Unassigned, No [facility] Plan of Care Planned Activity Planned Date Details Comments Source Goal Plan of Care Note [code = 41259-6] Goal Plan of Care Note [code = 32732-9] Goal Plan of Care Note [code = 83135-7] Goal Plan of Care Note [code = 82647-3] Goal Plan of Care Note [code = 48048-1] Goal Plan of Care Note [code = 64006-9] Goal Plan of Care Note [code = 01358-2] Goal Plan of Care Note [code = 47137-4] Goal Plan of Care Note [code = 89282-8] Goal Plan of Care Note [code = 69703-2] Goal Plan of Care Note [code = 11281-3] Goal Plan of Care Note [code = 86854-5] Goal Plan of Care Note [code = 07450-2] Goal Plan of Care Note [code = 77969-4] Goal Plan of Care Note [code = 73415-0] Goal Plan of Care Note [code = 57470-1] Goal Plan of Care Note [code = 49606-9] Goal Plan of Care Note [code = 37379-5] Goal Plan of Care Note [code = 92867-6] Goal Plan of Care Note [code = 23970-1] Goal Plan of Care Note [code = 40810-1] Goal Plan of Care Note [code = 77855-3] Goal Plan of Care Note [code = 87745-3] Goal Plan of Care Note [code = 91178-1] Goal Plan of Care Note [code = 88602-4] Goal Plan of Care Note [code = 78081-9] Goal Plan of Care Note [code = 89701-4] Goal Plan of Care Note [code = 53779-3] Goal Plan of Care Note [code = 48714-4] Goal Plan of Care Note [code = 58441-2] Goal Plan of Care Note [code = 08834-5] Goal Plan of Care Note [code = 60279-5] Goal Plan of Care Note [code = 86010-6] Goal Plan of Care Note [code = 90419-7] Goal Plan of Care Note [code = 98374-5] Goal Plan of Care Note [code = 47850-2] Goal Plan of Care Note [code = 12197-9] Goal Plan of Care Note [code = 27540-4] Goal Plan of Care Note [code = 01944-8] Goal Plan of Care Note [code = 27157-2] Goal Plan of Care Note [code = 98830-7] Goal Plan of Care Note [code = 25344-7] Goal Plan of Care Note [code = 69764-4] Goal Plan of Care Note [code = 41328-6] Goal Plan of Care Note [code = 77424-2] Goal Plan of Care Note [code = 24389-9] Goal Plan of Care Note [code = 86413-7] Goal Plan of Care Note [code = 56928-3] Goal Plan of Care Note [code = 14545-5] Goal Plan of Care Note [code = 81195-8] Goal Plan of Care Note [code = 22381-1] Goal Plan of Care Note [code = 68373-2] Goal Plan of Care Note [code = 07111-1] Goal Plan of Care Note [code = 77784-5] Goal Plan of Care Note [code = 92704-2] Goal Plan of Care Note [code = 43599-1] Goal Plan of Care Note [code = 78890-3] Goal Plan of Care Note [code = 66034-4] Goal Plan of Care Note [code = 53675-5] Goal Plan of Care Note [code = 08542-4] Goal Plan of Care Note [code = 20648-5] Goal Plan of Care Note [code = 79873-7] Goal Plan of Care Note [code = 69200-8] Goal Plan of Care Note [code = 05089-9] Goal Plan of Care Note [code = 09131-4] Goal Plan of Care Note [code = 02190-4] Goal Plan of Care Note [code = 34201-7] Goal Plan of Care Note [code = 53495-7] Goal Plan of Care Note [code = 46584-5] Goal Plan of Care Note [code = 36660-8] Goal Plan of Care Note [code = 82148-0] Goal Plan of Care Note [code = 75819-0] Goal Plan of Care Note [code = 20579-4] Goal Plan of Care Note [code = 44122-5] Goal Plan of Care Note [code = 80308-5] Goal Plan of Care Note [code = 77375-0] Goal Plan of Care Note [code = 50486-1] Goal Plan of Care Note [code = 06023-5] Goal Plan of Care Note [code = 06324-4] Goal Plan of Care Note [code = 46014-4] Goal Plan of Care Note [code = 62735-0] Goal Plan of Care Note [code = 46745-4] Goal Plan of Care Note [code = 46630-5] Goal Plan of Care Note [code = 54136-3] Goal Plan of Care Note [code = 06219-6] Goal Plan of Care Note [code = 04686-2] Goal Plan of Care Note [code = 23544-5] Goal Plan of Care Note [code = 17546-9] Goal Plan of Care Note [code = 65961-7] Goal Plan of Care Note [code = 88180-4] Goal Plan of Care Note [code = 89725-5] Goal Plan of Care Note [code = 85419-9] Goal Plan of Care Note [code = 39282-8] Goal Plan of Care Note [code = 05776-3] Goal Plan of Care Note [code = 40533-1] Goal Plan of Care Note [code = 98232-5] Goal Plan of Care Note [code = 16231-3] Goal Plan of Care Note [code = 88870-9] Goal Plan of Care Note [code = 60622-2] Goal Plan of Care Note [code = 32643-2] Goal Plan of Care Note [code = 22713-5] Goal Plan of Care Note [code = 31737-5] Goal Plan of Care Note [code = 81541-3] Goal Plan of Care Note [code = 40073-3] Goal Plan of Care Note [code = 21111-5] Goal Plan of Care Note [code = 64004-3] Goal Plan of Care Note [code = 98090-5] Goal Plan of Care Note [code = 83563-6] Goal Plan of Care Note [code = 63020-8] Goal Plan of Care Note [code = 00670-5] Goal Plan of Care Note [code = 05693-3] Goal Plan of Care Note [code = 65686-2] Goal Plan of Care Note [code = 73496-7] Goal Plan of Care Note [code = 24940-1] Goal Plan of Care Note [code = 94218-1] Goal Plan of Care Note [code = 15079-3] Goal Plan of Care Note [code = 41058-3] Goal Plan of Care Note [code = 79142-3] Goal Plan of Care Note [code = 81419-6] Goal Plan of Care Note [code = 98396-9] Goal Plan of Care Note [code = 88097-4] Goal Plan of Care Note [code = 41144-4] Goal Plan of Care Note [code = 88682-2] Goal Plan of Care Note [code = 51338-2] Goal Plan of Care Note [code = 86247-4] Goal Plan of Care Note [code = 21910-2] Goal Plan of Care Note [code = 89510-8] Goal Plan of Care Note [code = 55071-9] Goal Plan of Care Note [code = 04074-2] Goal Plan of Care Note [code = 82849-2] Goal Plan of Care Note [code = 38729-0] Goal Plan of Care Note [code = 01779-8] Goal Plan of Care Note [code = 16054-2] Goal Plan of Care Note [code = 43547-0] Goal Plan of Care Note [code = 01673-4] Goal Plan of Care Note [code = 23282-2] Goal Plan of Care Note [code = 06731-4] Goal Plan of Care Note [code = 36611-6] Goal Plan of Care Note [code = 18034-1] Goal Plan of Care Note [code = 17186-3] Goal Plan of Care Note [code = 11966-8] Goal Plan of Care Note [code = 01885-2] Goal Plan of Care Note [code = 52061-9] Goal Plan of Care Note [code = 36713-9] Goal Plan of Care Note [code = 82748-9] Goal Plan of Care Note [code = 14099-1] Goal Plan of Care Note [code = 62880-3] Goal Plan of Care Note [code = 82126-8] Goal Plan of Care Note [code = 58914-3] Goal Plan of Care Note [code = 95032-9] Goal Plan of Care Note [code = 30754-2] Goal Plan of Care Note [code = 05666-2] Goal Plan of Care Note [code = 11911-4] Goal Plan of Care Note [code = 90426-0] Goal Plan of Care Note [code = 31445-5] Goal Plan of Care Note [code = 00822-9] Goal Plan of Care Note [code = 81619-0] Encounters Start End Encounter Admission Attending Care Care Encounter Source Date/Time Date/Time Type Type Clinicians Facility Department ID 2022-12-05 2022-12-05 Outpatient SFA SFA 164522- Georgi 10:53:45 10:53:45 75316 F Rhett 2022-11-28 2022-11-28 Outpatient SFA SFA 452086- Georgi 17:46:35 17:46:35 [id number] F Rhett 2022-11-20 2022-11-20 Telephone FREDO Diamond 1.2.840.114 [id number] Univers 00:00:00 00:00:00 [facility] 350.1.13.10 i [facility] 4.2.7.2.686 Mynor haines [id number] [facility] [address] 2022-11-17 2022-11-17 Outpatient SFA SFA [id number]- 202 Georgi 11:28:22 11:28:22 78186 F Clay 2022-11-08 2022-11-08 Outpatient SFA SFA [id number]- Georgi 13:56:45 13:56:45 65045 F Clay 2022-11-01 2022-11-01 Outpatient SFA SFA 421897- Georgi 11:26:47 11:26:47 [id number] F Clay 2022-10-31 2022-10-31 Outpatient SFA SFA 552042- Georgi 13:04:58 13:04:58 93363 F Clay 2022-10-20 2022-10-20 Outpatient SFA SFA 469278- Georgi 11:25:26 11:25:26 96003 F Clay 2022-10-19 2022-10-19 Outpatient SFA SFA 016258- Georgi 14:02:23 14:02:23 05825 F Clay 2022-10-09 2022-10-09 Outpatient SFA SFA 723542- Georgi 10:08:28 10:08:28 63987 F Clay 2022-09-21 2022-09-21 Outpatient SFA SFA 376827- 202 Georgi 11:54:36 11:54:36 [id number] F Clay 2022-09-15 2022-09-15 Outpatient SFA SFA 011279- 202 Georgi 11:33:15 11:33:15 72001 F Clay 2022-09-08 2022-09-08 Outpatient SFA SFA [id number]- 202 Georgi 10:49:58 10:49:58 41538 F Clay 2022-09-07 2022-09-07 Outpatient SFA SFA 301196- 202 Georgi 15:51:56 15:51:56 [id number] F Clay 2022-09-05 2022-09-05 Outpatient SFA SFA 400139- 202 Georgi 10:47:25 10:47:25 [id number] F Clay 2022-09-04 2022-09-04 Outpatient SFA SFA [id number]- Georgi 11:21:25 11:21:25 46948 F Rhett 2022-08-30 2022-08-30 Outpatient SFA SFA 366687- Georgi 15:33:51 15:33:51 87948 F Rhett 2022-08-30 2022-08-30 Outpatient n2923xh8- [id number] b1 505md9-1 00:00:00 00:00:00 Visit 3485-45fb 485-45fb-8 -8adf-9d4 adf-9d42c4 3k4vv09n6 aa65e7 2022-08-25 2022-08-25 Outpatient SFA SFA [id number]- Georgi 10:13:30 10:13:30 38741 F Rhett 2022-08-11 2022-08-11 Outpatient SFA SFA 743446- Georgi 09:20:54 09:20:54 [id number] F Rhett 2022-07-28 2022-07-28 Outpatient SFA SFA [id number]- Georgi 11:30:57 11:30:57 79465 F Rhett 2022-07-14 2022-07-14 Outpatient SFA SFA 878151- Georgi 11:31:56 11:31:56 33835 F Clay 2022-06-29 2022-06-29 Outpatient SFA SFA [id number]- Georgi 15:28:07 15:28:07 [id number] F Rhett 2022-06-29 2022-06-29 Outpatient 36aw34f1- [id number] xg15g8-7 00:00:00 00:00:00 Visit 0088-44b4 088-44b4-8 -8443-99f 443-99fcb6 bc8h86rb9 b36be4 2022-06-16 2022-06-16 Outpatient SFA SFA 776310- Georgi 11:17:33 11:17:33 [id number] F Rhett 2022-06-15 2022-06-15 Outpatient SFA SFA 037180- Georgi 09:41:11 09:41:11 [id number] F Rhett 2022-06-08 2022-06-08 Outpatient 73fvzdf4- [id number] bfdee4-1 00:00:00 00:00:00 Visit 1155-48b2 155-48b2-b -ro0x-ij7 n7m-to6e0i x7w2430my 7966fb 2022-04-27 2022-04-27 Outpatient 8avgr3pu- [id number] 1b rai1nb-5 00:00:00 00:00:00 Visit 56x1-95y4 6z8-34b1-q -rd17-16d h62-83dv68 z40ov5h7h ab5d1b 2022-03-02 2022-03-02 Outpatient g6s73436- [id number] d6 z59149-r 00:00:00 00:00:00 Visit kq63-9q37 y61-9n99-9 -926c-c29 26c-c29a66 b9604p985 06p222 2021-07-27 2021-07-27 Emergency X Yamil [facility] ERT [id number] Univers 11:56:00 15:42:00 ity of [facility] 2021-07-27 2021-07-27 Emergency Siddharth [facility] 1.2.840.114 [id number] Univers 11:56:00 15:42:00 Carmen TAPIA 350.1.13.10 i ty [place] [facility]7.2.[facility] [id number] [address] 2021-06-24 2021-06-24 Emergency X [facility] ERT [id number] Univers 22:06:00 23:54:00 KATHILI ity of [facility] 2021-06-24 2021-06-24 Emergency [facility] 1.2.852.639 [id number] Univers 22:06:00 23:54:00 Silvianousmanavelino Haines WILLIE 350.1.13.10 [place] [id number] [address] 2021-06-24 2021-06-24 Orders Doctor BELTRAN 1.2.840.114 [id number] Univers 00:00:00 00:00:00 Only Unassigned, [place] 350.1.13.10 ity of [place] [facility] 4.2.7.2.686 [place] [id number] [facility] [address] 2021-02-17 2021-02-17 Office Pgy2 UNIVERSIT 1.2.638.282 2575 1721 Univers 14:13:58 15:19:24 Visit Marques [place] [facility] 350.1.13.10 [place] [id number] [address] 2021-02-17 2021-02-17 Outpatient R [facility] [id number] Univers 14:00:00 14:00:00 ity of [facility] 2021-01-06 2021-01-06 Orders Doctor BELTRAN 1.2.840.114 [id number] Univers 00:00:00 00:00:00 Only Unassigned, [place] 350.1.13.10 ity of [place] [facility] 4.2.7.2.686 [place] [id number] [address] 2021-01-05 2021-01-05 Office Pool, [facility] Resident UNIVERSIT 1.2.8 40.114 [id number] Univers 13:58:29 16:19:12 Visit Aracely Villanueva Y HE[facility] 350.1.13.10 [place] [id number] [address] 2021-01-05 2021-01-05 Outpatient R [facility] [id number] Univers 14:15:00 14:15:00 ity of [facility] 2020-12-10 2020-12-10 Telephone Silvestre UNIVERSIT 1.2.840.11 4 [id number] Univers 00:00:00 00:00:00 [facility], Y HEALTH 350.1.13.10 i [id number] [address] 2020-12-07 2020-12-07 Office Pool, [facility] Resident UNIVERSIT 1.2.8 40.114 [id number] Univers 14:35:42 16:30:20 Visit Jeanette Henley Y HEALTH 350.1.13.10 [place] [id number] [address] 2020-12-07 2020-12-07 Outpatient Katheryn HENLEY, [facility] [id number] Univers 14:30:00 14:30:00 JEANETTE pitt [facility] 2020-12-07 2020-12-07 Orders Doctor BELTRAN 1.2.840.114 [id number] Univers 00:00:00 00:00:00 Only Unassigned, [place] 350.1.13.10 ity of [place] [facility] 4.2.7.2.686 [place] [id number] [facility] [address] 2020-12-02 2020-12-02 Outpatient Katheryn GABRIEL, [facility] 00022 75720 Univers 14:05:00 14:05:00 BEBE alicia [facility] Results Test Description Test Time Test Comments Results Result Comments Source COMPREHENSIVE METABOLIC PANEL 2022-09-09 07:39:28 Test Item Value Reference Range Interpretation Comme nts GLUCOSE (test code = 2217) 112 MG/DL 70-99 H BUN (test code = 2208) 14 MG/DL 6-20 CREATININE (test code = 0.79 MG/DL 0.60-1.30 2213) eGFR (2020 CKD-EPI) (test 101 ML/MIN/1.73 >60 code = 51426) CALC BUN/CREAT (test code = 18 RATIO -28 2234) SODIUM (test code = 2231) 140 MEQ/L 133-146 POTASSIUM (test code = 3.8 MEQ/L 3.5-5.4 2227) CHLORIDE (test code = 2215) 101 MEQ/L 95-107 CARBON DIOXIDE (test code = 24 MEQ/L 19-31 2205) CALCIUM (test code = 2209) 9.7 MG/DL 8.5-10.5 PROTEIN, TOTAL (test code = 6.7 G/DL 6.1-8.3 2228) ALBUMIN (test code = 2201) 4.1 G/DL 3.5-5.2 CALC GLOBULIN (test code = 2.6 G/DL 1.9-3.7 2239) CALC A/G RATIO (test code = 1.6 RATIO 1.0-2.6 2233) BILIRUBIN, TOTAL (test code <0.2 MG/DL See_Comment [Automated message] The = 2207) system which ge nerated this result transmit kenzie reference range: <=1.2. T he reference range was not u sed to interpret this result as normal/abnormal . ALKALINE PHOSPHATASE (test 80 U/L 40-114 code = 2204) AST (test code = 2218) 22 U/L 9-40 ALT (test code = 2219) 24 U/L 5-40 UNLE SS OTHERWISE INDICATED, ALL TESTING PER FORMED [facility], [place] [place] [place], [place] [address] LABORATORY DIRE CTOR: EDVIN BENSON M.D. CLIA NUMBER [id number] [place]. [id number] HEMOGLOBIN [id number] 04:57:47 Test Item Value Reference Range Interpretation Comments HEMOGLOBIN A1c (test code = 56254) 6.1 % 4.2-5.6 H TSH, THIRD [id number] 03:25:48 Test Item Value Reference Range Interpretation Comments TSH, THIRD 2.310 UIU/ML 0.400-4.100 UNLESS OTHERWI SE GENERATION (test INDICATED, ALL TESTING code = 2821) PERFORMED [facility] PATHOLOGY LABORATORIES, [place] [address] [place] [address] [facility] DIRECTOR: EDVIN BENSON M.D. CLIA NUMBER [id number] CAP ACCREDITATION N O. [id number] TSH, THIRD [id number] 00:00:00 Test Item Value Reference Range Interpretation Comments TSH, THIRD GENERATION (test code 2.310 UIU/ML = 2821) TSH, THIRD [id number] 00:00:00 Test Item Value Reference Range Interpretation Comments TSH, THIRD GENERATION (test code 2.310 UIU/ML = 2821) TSH, THIRD [id number] 00:00:00 Test Item Value Reference Range Interpretation Comments TSH, THIRD GENERATION (test code 2.310 UIU/ML = 2821) [id number] 00:00:00 Test Item Value Reference Range Interpretation Comments 17-HYDROXYPROGESTERONE (test code = 45 ng/dL 4304) [id number] 00:00:00 Test Item Value Reference Range Interpretation Comments 17-HYDROXYPROGESTERONE (test code = 45 ng/dL 4304) 66-[id number] 00:00:00 Test Item Value Reference Range Interpretation Comments 17-HYDROXYPROGESTERONE (test code = 45 ng/dL 4304) 96-[id number] 00:00:00 Test Item Value Reference Range Interpretation Comments 17-HYDROXYPROGESTERONE (test code = 45 ng/dL 4304) FSH + LH [id number] 00:00:00 Test Item Value Reference Range Interpretation Comments FOLLICLE STIM HORMONE (test code = 4.3 IU/L 2700) LUTEINIZING HORMONE (test code = 15.6 IU/L 2776) FSH + LH [id number] 00:00:00 Test Item Value Reference Range Interpretation Comments FOLLICLE STIM HORMONE (test code = 4.3 IU/L 2700) LUTEINIZING HORMONE (test code = 15.6 IU/L 2776) [id number] 00:00:00 Test Item Value Reference Range Interpretation Comments PROLACTIN (test code = 2800) 17.7 NG/ML [id number] 00:00:00 Test Item Value Reference Range Interpretation Comments PROLACTIN (test code = 2800) 17.7 NG/ML TSH, THIRD [id number] 00:00:00 Test Item Value Reference Range Interpretation Comments TSH, THIRD GENERATION (test code 1.790 UIU/ML = 2821) TSH, THIRD [id number] 00:00:00 Test Item Value Reference Range Interpretation Comments TSH, THIRD GENERATION (test code 1.790 UIU/ML = 2821) TSH, THIRD [id number] 00:00:00 Test Item Value Reference Range Interpretation Comments TSH, THIRD GENERATION (test code 1.790 UIU/ML = 2821) FSH + LH [id number] 00:00:00 Test Item Value Reference Range Interpretation Comments FOLLICLE STIM HORMONE (test code = 4.3 IU/L 2700) LUTEINIZING HORMONE (test code = 15.6 IU/L 2776) FSH + LH [id number] 00:00:00 Test Item Value Reference Range Interpretation Comments FOLLICLE STIM HORMONE (test code = 4.3 IU/L 2700) LUTEINIZING HORMONE (test code = 15.6 IU/L 2776) [id number] 00:00:00 Test Item Value Reference Range Interpretation Comments PROLACTIN (test code = 2800) 17.7 NG/ML [id number] 00:00:00 Test Item Value Reference Range Interpretation Comments PROLACTIN (test code = 2800) 17.7 NG/ML TSH, THIRD [id number] 00:00:00 Test Item Value Reference Range Interpretation Comments TSH, THIRD GENERATION (test code 1.790 UIU/ML = 2821) TSH, THIRD [id number] 00:00:00 Test Item Value Reference Range Interpretation Comments TSH, THIRD GENERATION (test code 1.790 UIU/ML = 2821) TSH, THIRD [id number] 00:00:00 Test Item Value Reference Range Interpretation Comments TSH, THIRD GENERATION (test code 1.790 UIU/ML = 2821) TSH, THIRD [id number] 04:06:28 Test Item Value Reference Range Interpretation Comments TSH, THIRD 4.000 UIU/ML 0.400-4.100 UNLESS OTHERWI SE GENERATION (test INDICATED, ALL TESTING code = 2821) PERFORMED [facility] PATHOLOGY LABORATORIES, [id number] [place] [address] DIRECTOR: EDVIN BENSON M.D. CLIA NUMBER [id number] [facility] ACCREDITATION N O. [id number] TSH, THIRD [id number] 00:00:00 Test Item Value Reference Range Interpretation Comments TSH, THIRD GENERATION (test code 4.000 UIU/ML = 2821) TSH, THIRD [id number] 00:00:00 Test Item Value Reference Range Interpretation Comments TSH, THIRD GENERATION (test code 4.000 UIU/ML = 2821) TSH, THIRD [id number] 00:00:00 Test Item Value Reference Range Interpretation Comments TSH, THIRD GENERATION (test code 4.000 UIU/ML = 2821) TSH, THIRD [id number] 00:00:00 Test Item Value Reference Range Interpretation Comments TSH, THIRD GENERATION (test code 4.000 UIU/ML = 2821) TSH, THIRD [id number] 00:00:00 Test Item Value Reference Range Interpretation Comments TSH, THIRD GENERATION (test code 4.000 UIU/ML = 2821) TSH, THIRD [id number] 00:00:00 Test Item Value Reference Range Interpretation Comments TSH, THIRD GENERATION (test code 4.000 UIU/ML = 2821) TSH, THIRD [id number] 00:00:00 Test Item Value Reference Range Interpretation Comments TSH, THIRD GENERATION (test code 4.000 UIU/ML = 2821) TSH, THIRD [id number] 00:00:00 Test Item Value Reference Range Interpretation Comments TSH, THIRD GENERATION (test code 4.000 UIU/ML = 2821) TSH, THIRD [id number] 00:00:00 Test Item Value Reference Range Interpretation Comments TSH, THIRD GENERATION (test code 4.000 UIU/ML = 2821) TSH, THIRD [id number] 09:09:54 Test Item Value Reference Range Interpretation Comments TSH, THIRD 9.840 UIU/ML 0.400-4.100 H UNLESS OTHERWI SE GENERATION (test INDICATED, ALL TESTING code = 2821) PERFORMED [facility] PATHOLOGY [facility] [address] [place] [id number] [place] [address] DIRECTOR: EDVIN BENSON M.D. CLIA NUMBER [id number] CAP ACCREDITATION N O. [id number] 00:00:00 Test Item Value Reference Range Interpretation Comments TSH, THIRD GENERATION (test code 9.840 UIU/ML = 2821) [id number] 00:00:00 Test Item Value Reference Range Interpretation Comments TSH, THIRD GENERATION (test code 9.840 UIU/ML = 2821) [id number] 00:00:00 Test Item Value Reference Range Interpretation Comments TSH, THIRD GENERATION (test code 9.840 UIU/ML = 2821) [id number] 00:00:00 Test Item Value Reference Range Interpretation Comments TSH, THIRD GENERATION (test code 9.840 UIU/ML = 2821) [id number] 00:00:00 Test Item Value Reference Range Interpretation Comments TSH, THIRD GENERATION (test code 9.840 UIU/ML = 2821) [id number] 00:00:00 Test Item Value Reference Range Interpretation Comments TSH, THIRD GENERATION (test code 9.840 UIU/ML = 2821) [id number] 00:00:00 Test Item Value Reference Range Interpretation Comments TSH, THIRD GENERATION (test code 9.840 UIU/ML = 2821) [id number] 00:00:00 Test Item Value Reference Range Interpretation Comments TSH, THIRD GENERATION (test code 9.840 UIU/ML = 2821) [id number] 00:00:00 Test Item Value Reference Range Interpretation Comments TSH, THIRD GENERATION (test code 9.840 UIU/ML = 2821) [id number] 00:00:00 Test Item Value Reference Range Interpretation Comments TSH, THIRD GENERATION (test code 9.840 UIU/ML = 2821) [id number] 00:00:00 Test Item Value Reference Range Interpretation Comments TSH, THIRD GENERATION (test code 9.840 UIU/ML = 2821) [id number] 00:00:00 Test Item Value Reference Range Interpretation Comments TSH, THIRD GENERATION (test code 9.840 UIU/ML = 2821) [id number] 00:00:00 Test Item Value Reference Range Interpretation Comments TSH, THIRD GENERATION (test code 9.840 UIU/ML = 2821) [id number] 00:00:00 Test Item Value Reference Range Interpretation Comments TSH, THIRD GENERATION (test code 9.840 UIU/ML = 2821) TSH, THIRD [id number] 05:03:02 Test Item Value Reference Range Interpretation Comments TSH, THIRD 7.050 UIU/ML 0.400-4.100 H UNLESS OTHERWI SE GENERATION (test INDICATED, ALL TESTING code = 2821) PERFORMED [facility] PATHOLOGY LABORATORIES, [address] [address] LABOR ATORY DIRECTOR: Edward LONGIA NUMBER [id number] CAP ACCREDITATION N O. [id number] 00:00:00 Test Item Value Reference Range Interpretation Comments TSH, THIRD GENERATION (test code 7.050 UIU/ML = 2821) [id number] 00:00:00 Test Item Value Reference Range Interpretation Comments TSH, THIRD GENERATION (test code 7.050 UIU/ML = 2821) [id number] 00:00:00 Test Item Value Reference Range Interpretation Comments TSH, THIRD GENERATION (test code 7.050 UIU/ML = 2821) [id number] 00:00:00 Test Item Value Reference Range Interpretation Comments TSH, THIRD GENERATION (test code 7.050 UIU/ML = 2821) [id number] 00:00:00 Test Item Value Reference Range Interpretation Comments TSH, THIRD GENERATION (test code 7.050 UIU/ML = 2821) [id number] 00:00:00 Test Item Value Reference Range Interpretation Comments TSH, THIRD GENERATION (test code 7.050 UIU/ML = 2821) [id number] 00:00:00 Test Item Value Reference Range Interpretation Comments TSH, THIRD GENERATION (test code 7.050 UIU/ML = 2821) [id number] 00:00:00 Test Item Value Reference Range Interpretation Comments TSH, THIRD GENERATION (test code 7.050 UIU/ML = 2821) [id number] 00:00:00 Test Item Value Reference Range Interpretation Comments TSH, THIRD GENERATION (test code 7.050 UIU/ML = 2821) [id number] 00:00:00 Test Item Value Reference Range Interpretation Comments TSH, THIRD GENERATION (test code 7.050 UIU/ML = 2821) [id number] 00:00:00 Test Item Value Reference Range Interpretation Comments TSH, THIRD GENERATION (test code 7.050 UIU/ML = 2821) [id number] 00:00:00 Test Item Value Reference Range Interpretation Comments TSH, THIRD GENERATION (test code 7.050 UIU/ML = 2821) [id number] 00:00:00 Test Item Value Reference Range Interpretation Comments TSH, THIRD GENERATION (test code 7.050 UIU/ML = 2821) [id number] 00:00:00 Test Item Value Reference Range Interpretation Comments TSH, THIRD GENERATION (test code 7.050 UIU/ML = 2821) CBC W/AUTO DIFF WITH [id number] 03:06:39 Test Item Value Reference Range Interpretation [...] message] code = 1065) WBC'S The system [employer] generated this result transmitted ref erence range: [...] 0.00-0.11 UNLESS O THERWISE (test code = 47049) INDICATE D, ALL TESTING PERFORM [facility], [address] [place] [address] [facility] DIRECTOR: EDVIN BENSON M.D. CLIA NUMBER [id number] CAP ACCREDITATION N O. [id number] CBC W/AUTO [id number] 00:00:00 Test Item Value Reference Range Interpretation [...] NUCLEATED RBCS (test code = 0.00 K/UL 87214) CBC W/AUTO [id number] 00:00:00 Test Item Value Reference Range Interpretation [...] NUCLEATED RBCS (test code = 0.00 K/UL 12072) CBC W/AUTO [id number] 00:00:00 Test Item Value Reference Range Interpretation [...] NUCLEATED RBCS (test code = 0.00 K/UL 00025) CBC W/AUTO [id number] 00:00:00 Test Item Value Reference Range Interpretation [...] NUCLEATED RBCS (test code = 0.00 K/UL 16261) CBC W/AUTO [id number] 00:00:00 Test Item Value Reference Range Interpretation [...] NUCLEATED RBCS (test code = 0.00 K/UL 34442) CBC W/AUTO [id number] 00:00:00 Test Item Value Reference Range Interpretation [...] NUCLEATED RBCS (test code = 0.00 K/UL 15571) CBC W/AUTO [id number] 00:00:00 Test Item Value Reference Range Interpretation [...] NUCLEATED RBCS (test code = 0.00 K/UL 03069) CBC W/AUTO [id number] 00:00:00 Test Item Value Reference Range Interpretation [...] NUCLEATED RBCS (test code = 0.00 K/UL 20440) CBC W/AUTO [id number] 00:00:00 Test Item Value Reference Range Interpretation [...] NUCLEATED RBCS (test code = 0.00 K/UL 52183) CBC W/AUTO [id number] 00:00:00 Test Item Value Reference Range Interpretation [...] NUCLEATED RBCS (test code = 0.00 K/UL 60635) CBC W/AUTO [id number] 00:00:00 Test Item Value Reference Range Interpretation [...] NUCLEATED RBCS (test code = 0.00 K/UL 94684) CBC W/AUTO [id number] 00:00:00 Test Item Value Reference Range Interpretation [...] NUCLEATED RBCS (test code = 0.00 K/UL 56872) CBC W/AUTO [id number] 00:00:00 Test Item Value Reference Range Interpretation [...] NUCLEATED RBCS (test code = 0.00 K/UL 47013) CBC W/AUTO [id number] 00:00:00 Test Item Value Reference Range Interpretation [...] NUCLEATED RBCS (test code = 0.00 K/UL 95931) CBC W/AUTO DIFF WITH [id number] 10:01:09 Test Item Value Reference Range Interpretation [...] RBCS TEST NOT 0.00-0.11 (test code = 98283) PERFORMED K/UL COMMENTS (test code = TEST NOT 1016) PERFORMED CBC W/AUTO [id number] 00:00:00 Test Item Value Reference Range Interpretation [...] RBCS (test TEST NOT PERFORMED code = 81350) K/UL COMMENTS (test code = TEST NOT PERFORMED 1016) CBC W/AUTO [id number] 00:00:00 Test Item Value Reference Range Interpretation [...] RBCS (test TEST NOT PERFORMED code = 46231) K/UL COMMENTS (test code = TEST NOT PERFORMED 1016) CBC W/AUTO [id number] 00:00:00 Test Item Value Reference Range Interpretation [...] RBCS (test TEST NOT PERFORMED code = 45328) K/UL COMMENTS (test code = TEST NOT PERFORMED 1016) CBC W/AUTO [id number] 00:00:00 Test Item Value Reference Range Interpretation [...] RBCS (test TEST NOT PERFORMED code = 93362) K/UL COMMENTS (test code = TEST NOT PERFORMED 1016) CBC W/AUTO [id number] 00:00:00 Test Item Value Reference Range Interpretation [...] RBCS (test TEST NOT PERFORMED code = 23419) K/UL COMMENTS (test code = TEST NOT PERFORMED 1016) CBC W/AUTO [id number] 00:00:00 Test Item Value Reference Range Interpretation [...] RBCS (test TEST NOT PERFORMED code = 88094) K/UL COMMENTS (test code = TEST NOT PERFORMED 1016) CBC W/AUTO [id number] 00:00:00 Test Item Value Reference Range Interpretation [...] RBCS (test TEST NOT PERFORMED code = 31026) K/UL COMMENTS (test code = TEST NOT PERFORMED 1016) CBC W/AUTO [id number] 00:00:00 Test Item Value Reference Range Interpretation [...] RBCS (test TEST NOT PERFORMED code = 20229) K/UL COMMENTS (test code = TEST NOT PERFORMED 1016) CBC W/AUTO [id number] 00:00:00 Test Item Value Reference Range Interpretation [...] RBCS (test TEST NOT PERFORMED code = 80113) K/UL COMMENTS (test code = TEST NOT PERFORMED 1016) CBC W/AUTO [id number] 00:00:00 Test Item Value Reference Range Interpretation [...] RBCS (test TEST NOT PERFORMED code = 28852) K/UL COMMENTS (test code = TEST NOT PERFORMED 1016) CBC W/AUTO [id number] 00:00:00 Test Item Value Reference Range Interpretation [...] RBCS (test TEST NOT PERFORMED code = 28381) K/UL COMMENTS (test code = TEST NOT PERFORMED 1016) CBC W/AUTO [id number] 00:00:00 Test Item Value Reference Range Interpretation [...] RBCS (test TEST NOT PERFORMED code = 32149) K/UL COMMENTS (test code = TEST NOT PERFORMED 1016) CBC W/AUTO [id number] 00:00:00 Test Item Value Reference Range Interpretation [...] RBCS (test TEST NOT PERFORMED code = 71806) K/UL COMMENTS (test code = TEST NOT PERFORMED 1016) CBC W/AUTO [id number] 00:00:00 Test Item Value Reference Range Interpretation [...] RBCS (test TEST NOT PERFORMED code = 15552) K/UL COMMENTS (test code = TEST NOT PERFORMED 1016) TSH, THIRD [id number] 06:29:33 Test Item Value Reference Range Interpretation Comments TSH, THIRD 7.090 UIU/ML 0.400-4.100 H UNLESS OTHERWI SE GENERATION (test INDICATED, ALL TESTING code = 2821) PERFORMED [facility], [facility]. [address] [place] [id number] [place] [address] DIRECTOR: EDVIN BENSON M.D. CLIA NUMBER [id number] CAP ACCREDITATION N O. [id number] LIPID [id number] 04:58:53 Test Item Value Reference Range Interpretation [...] MOREINFORMATION , SEE CLIENT ANNOUNCE MENT AT [email or web address] RISK RATIO LDL/HDL 3.57 RATIO <3.22 H (test code = 223) COMPREHENSIVE METABOLIC [id number] 04:58:53 Test Item Value Reference Range Interpretation Comments GLUCOSE (test code = 85 MG/DL 70-99 2216) BUN (test code = 12 MG/DL 6-20 2207) CREATININE (test 0.59 MG/DL 0.60-1.30 L code = 2214) eGFR (2020 CKD-EPI) 123 >60 (test code = 44622) ML/MIN/1.73 CALC BUN/CREAT (test 20 RATIO - code = 2235) SODIUM (test code = 141 MEQ/L 270-858 3717) POTASSIUM (test code 4.5 MEQ/L 3.5-5.4 = [...] code = 16 U/L 5-40 2218) LIPID [id number] 00:00:00 Test Item Value Reference Range Interpretation Comments CHOLESTEROL (test code = 2210) 235 MG/DL TRIGLYCERIDES (test code = 2232) 127 MG/DL HDL CHOLESTEROL (test code = 2220) 46 MG/DL CALC LDL CHOL (test code = 2237) 164 MG/DL RISK RATIO LDL/HDL (test code = 3.57 RATIO 2238) LIPID [id number] 00:00:00 Test Item Value Reference Range Interpretation Comments CHOLESTEROL (test code = 2210) 235 MG/DL TRIGLYCERIDES (test code = 2232) 127 MG/DL HDL CHOLESTEROL (test code = 2220) 46 MG/DL CALC LDL CHOL (test code = 2237) 164 MG/DL RISK RATIO LDL/HDL (test code = 3.57 RATIO 2238) COMPREHENSIVE METABOLIC [id number] 00:00:00 Test Item Value Reference Range Interpretation Comments GLUCOSE (test code = 2217) 85 MG/DL BUN (test code = 2208) 12 MG/DL CREATININE (test code = 2214) 0.59 MG/DL eGFR (2020 CKD-EPI) (test 123 ML/MIN/1.73 code = 38464) CALC BUN/CREAT (test code = 20 RATIO [...] code = 2219) 16 U/L COMPREHENSIVE METABOLIC [id number] 00:00:00 Test Item Value Reference Range Interpretation Comments GLUCOSE (test code = 2217) 85 MG/DL BUN (test code = 2208) 12 MG/DL CREATININE (test code = 2214) 0.59 MG/DL eGFR (2020 CKD-EPI) (test 123 ML/MIN/1.73 code = 54463) CALC BUN/CREAT (test code = 20 RATIO [...] CALC GLOBULIN (test code = 2.4 G/DL 224) CALC A/G RATIO (test code = 1.8 RATIO 2234) BILIRUBIN, TOTAL (test code = <0.2 MG/DL 2206) ALKALINE PHOSPHATASE (test 89 U/L code = 2204) AST (test code = 2218) 12 U/L ALT (test code = 2219) 16 U/L [id number] 00:00:00 Test Item Value Reference Range Interpretation Comments TSH, THIRD GENERATION (test code 7.090 UIU/ML = 2821) [id number] 00:00:00 Test Item Value Reference Range Interpretation Comments TSH, THIRD GENERATION (test code 7.090 UIU/ML = 2821) [id number] 00:00:00 Test Item Value Reference Range Interpretation Comments TSH, THIRD GENERATION (test code 7.090 UIU/ML = 2821) LIPID [id number] 00:00:00 Test Item Value Reference Range Interpretation Comments CHOLESTEROL (test code = 2210) 235 MG/DL TRIGLYCERIDES (test code = 2232) 127 MG/DL HDL CHOLESTEROL (test code = 2220) 46 MG/DL CALC LDL CHOL (test code = 2237) 164 MG/DL RISK RATIO LDL/HDL (test code = 3.57 RATIO 2238) LIPID [id number] 00:00:00 Test Item Value Reference Range Interpretation Comments CHOLESTEROL (test code = 2210) 235 MG/DL TRIGLYCERIDES (test code = 2232) 127 MG/DL HDL CHOLESTEROL (test code = 2220) 46 MG/DL CALC LDL CHOL (test code = 2237) 164 MG/DL RISK RATIO LDL/HDL (test code = 3.57 RATIO 2238) COMPREHENSIVE METABOLIC [id number] 00:00:00 Test Item Value Reference Range Interpretation Comments GLUCOSE (test code = 2217) 85 MG/DL BUN (test code = 2208) 12 MG/DL CREATININE (test code = 2214) 0.59 MG/DL eGFR (2020 CKD-EPI) (test 123 ML/MIN/1.73 code = 55177) CALC BUN/CREAT (test code = 20 RATIO [...] CALC GLOBULIN (test code = 2.4 G/DL 224) CALC A/G RATIO (test code = 1.8 RATIO 2234) BILIRUBIN, TOTAL (test code = <0.2 MG/DL 2206) ALKALINE PHOSPHATASE (test 89 U/L code = 2203) AST (test code = 2218) 12 U/L ALT (test code = 2219) 16 U/L COMPREHENSIVE METABOLIC [id number] 00:00:00 Test Item Value Reference Range Interpretation Comments GLUCOSE (test code = 2217) 85 MG/DL BUN (test code = 2208) 12 MG/DL CREATININE (test code = 2214) 0.59 MG/DL eGFR (2020 CKD-EPI) (test 123 ML/MIN/1.73 code = 80939) CALC BUN/CREAT (test code = 20 RATIO [...] CALC GLOBULIN (test code = 2.4 G/DL 224) CALC A/G RATIO (test code = 1.8 RATIO 2234) BILIRUBIN, TOTAL (test code = <0.2 MG/DL 2206) ALKALINE PHOSPHATASE (test 89 U/L code = 2204) AST (test code = 2218) 12 U/L ALT (test code = 2219) 16 U/L [id number] 00:00:00 Test Item Value Reference Range Interpretation Comments TSH, THIRD GENERATION (test code 7.090 UIU/ML = 2821) [id number] 00:00:00 Test Item Value Reference Range Interpretation Comments TSH, THIRD GENERATION (test code 7.090 UIU/ML = 2821) [id number] 00:00:00 Test Item Value Reference Range Interpretation Comments TSH, THIRD GENERATION (test code 7.090 UIU/ML = 2821) LIPID [id number] 00:00:00 Test Item Value Reference Range Interpretation Comments CHOLESTEROL (test code = 2210) 235 MG/DL TRIGLYCERIDES (test code = 2232) 127 MG/DL HDL CHOLESTEROL (test code = 2220) 46 MG/DL CALC LDL CHOL (test code = 2237) 164 MG/DL RISK RATIO LDL/HDL (test code = 3.57 RATIO 2238) COMPREHENSIVE METABOLIC [id number] 00:00:00 Test Item Value Reference Range Interpretation Comments GLUCOSE (test code = 2217) 85 MG/DL BUN (test code = 2208) 12 MG/DL CREATININE (test code = 2214) 0.59 MG/DL eGFR (2020 CKD-EPI) (test 123 ML/MIN/1.73 code = 09846) CALC BUN/CREAT (test code = 20 RATIO [...] ALT (test code = 2219) 16 U/L [id number] 00:00:00 Test Item Value Reference Range Interpretation Comments TSH, THIRD GENERATION (test code 7.090 UIU/ML = 2821) [id number] 00:00:00 Test Item Value Reference Range Interpretation Comments TSH, THIRD GENERATION (test code 7.090 UIU/ML = 2821) LIPID [id number] 00:00:00 Test Item Value Reference Range Interpretation Comments CHOLESTEROL (test code = 2210) 235 MG/DL TRIGLYCERIDES (test code = 2232) 127 MG/DL HDL CHOLESTEROL (test code = 2220) 46 MG/DL CALC LDL CHOL (test code = 2237) 164 MG/DL RISK RATIO LDL/HDL (test code = 3.57 RATIO 2238) LIPID [id number] 00:00:00 Test Item Value Reference Range Interpretation Comments CHOLESTEROL (test code = 2210) 235 MG/DL TRIGLYCERIDES (test code = 2232) 127 MG/DL HDL CHOLESTEROL (test code = 2220) 46 MG/DL CALC LDL CHOL (test code = 2237) 164 MG/DL RISK RATIO LDL/HDL (test code = 3.57 RATIO 2238) COMPREHENSIVE METABOLIC [id number] 00:00:00 Test Item Value Reference Range Interpretation Comments GLUCOSE (test code = 2217) 85 MG/DL BUN (test code = 2208) 12 MG/DL CREATININE (test code = 2214) 0.59 MG/DL eGFR (2020 CKD-EPI) (test 123 ML/MIN/1.73 code = 15495) CALC BUN/CREAT (test code = 20 RATIO [...] code = 2219) 16 U/L COMPREHENSIVE METABOLIC [id number] 00:00:00 Test Item Value Reference Range Interpretation Comments GLUCOSE (test code = 2217) 85 MG/DL BUN (test code = 2208) 12 MG/DL CREATININE (test code = 2214) 0.59 MG/DL eGFR (2020 CKD-EPI) (test 123 ML/MIN/1.73 code = 97321) CALC BUN/CREAT (test code = 20 RATIO [...] ALT (test code = 2219) 16 U/L [id number] 00:00:00 Test Item Value Reference Range Interpretation Comments TSH, THIRD GENERATION (test code 7.090 UIU/ML = 2821) [id number] 00:00:00 Test Item Value Reference Range Interpretation Comments TSH, THIRD GENERATION (test code 7.090 UIU/ML = 2821) [id number] 00:00:00 Test Item Value Reference Range Interpretation Comments TSH, THIRD GENERATION (test code 7.090 UIU/ML = 2821) LIPID [id number] 00:00:00 Test Item Value Reference Range Interpretation Comments CHOLESTEROL (test code = 2210) 235 MG/DL TRIGLYCERIDES (test code = 2232) 127 MG/DL HDL CHOLESTEROL (test code = 2220) 46 MG/DL CALC LDL CHOL (test code = 2237) 164 MG/DL RISK RATIO LDL/HDL (test code = 3.57 RATIO 2238) LIPID [id number] 00:00:00 Test Item Value Reference Range Interpretation Comments CHOLESTEROL (test code = 2210) 235 MG/DL TRIGLYCERIDES (test code = 2232) 127 MG/DL HDL CHOLESTEROL (test code = 2220) 46 MG/DL CALC LDL CHOL (test code = 2237) 164 MG/DL RISK RATIO LDL/HDL (test code = 3.57 RATIO 2238) COMPREHENSIVE METABOLIC [id number] 00:00:00 Test Item Value Reference Range Interpretation Comments GLUCOSE (test code = 2217) 85 MG/DL BUN (test code = 2208) 12 MG/DL CREATININE (test code = 2214) 0.59 MG/DL eGFR (2020 CKD-EPI) (test 123 ML/MIN/1.73 code = 05149) CALC BUN/CREAT (test code = 20 RATIO [...] code = 2219) 16 U/L COMPREHENSIVE METABOLIC [id number] 00:00:00 Test Item Value Reference Range Interpretation Comments GLUCOSE (test code = 2217) 85 MG/DL BUN (test code = 2208) 12 MG/DL CREATININE (test code = 2214) 0.59 MG/DL eGFR (2020 CKD-EPI) (test 123 ML/MIN/1.73 code = 34803) CALC BUN/CREAT (test code = 20 RATIO [...] ALT (test code = 2219) 16 U/L [id number] 00:00:00 Test Item Value Reference Range Interpretation Comments TSH, THIRD GENERATION (test code 7.090 UIU/ML = 2821) [id number] 00:00:00 Test Item Value Reference Range Interpretation Comments TSH, THIRD GENERATION (test code 7.090 UIU/ML = 2821) [id number] 00:00:00 Test Item Value Reference Range Interpretation Comments TSH, THIRD GENERATION (test code 7.090 UIU/ML = 2821) TROPONIN [id number] 21:03:34 Test Item Value Reference Interpretation Comments Range TROPONIN I (test 0.000 ng/mL See_Comment [Automated code = [id number]) message] The system which generated this result [...] biotin. Lab Interpretation Normal (test code = 99850-2) [id number]:45[facility]29 Test Item Value Reference Interpretation Comments Range D-DIMER (test code = See_Comment [Autom ated [id number]) message] The system which generated this result [...] diagnosis. Lab Interpretation Normal (test code = 89565-0) [facility] WITH [id number] 19:14:30 Test Item Value Reference Range Interpretation Comments WBC (test code = See_Comment [Automated 3290-2) message] The sy stem which generated this result transmitted reference range : 4.30 - 11.10 10*3/?L. The reference range was not used to interpret this result as normal/abnormal . RBC (test code = See_Comment [Automated 719-8) message] The sy stem which generated this [...] RDW-SD (test code = 42.2 fL 39.0-49.9 83568-2) RDW-CV (test code = 13.1 % 12.0-15.5 788-0) PLT (test code = See_Comment [Automated 777-3) message] The sy stem which generated this result transmitted reference range : 166 - 358 10*3/ ?L. The reference r ana laura was not used to interpret this result as normal/abnormal . MPV (test code = 9.6 fL 9.5-12.9 12626-8) NRBC/100 WBC (test See_Comment [Automat ed code = 9642064918) message] The system which generated this result transmitted reference range : 0.0 - 10.0 /100 WBCs. The refer ence range was not u sed to interpret th is result as normal/abnormal . NRBC x10^3 (test code <0.01 See_Comment [Auto mated = 0402393189) message] The s ystem which generated this result transmitted reference range : 10*3/?L. The reference range was not used to interpret this result as normal/abnormal . GRAN MAT (NEUT) % 43.7 % (test code = 770-8) IMM GRAN % (test code 0.50 % = 1476603445) LYMPH % (test code = 46.2 % 736-9) MONO % (test code = 6.2 % 5905-5) EOS % (test code = 2.8 % 713-8) BASO % (test code = 0.6 % 706-2) GRAN MAT x10^3(ANC) 4.77 10*3/uL 1.88-7.09 (test code = 7760693510) IMM GRAN x10^3 (test 0.05 10*3/uL 0.00-0.06 code = 6042089231) LYMPH x10^3 (test code 5.05 10*3/uL 1.32-3.29 H = 731-0) MONO x10^3 (test code 0.68 10*3/uL 0.33-0.92 = 742-7) EOS x10^3 (test code = 0.31 10*3/uL 0.03-0.39 711-2) BASO x10^3 (test code 0.07 10*3/uL 0.01-0.07 = 704-7) Lab Interpretation Abnormal (test code = 81903-9) [facility] [id number] 18:39:27 Test Item Value Reference Interpretation Comments Range TROPONIN I (test 0.001 ng/mL See_Comment [Automated code = 4474026246) message] The system which generated this result [...] biotin. Lab Interpretation Normal (test code = 16201-0) [facility] (70881)2021-07-27 18:29:25 Test Item Value Reference Range Interpretation Comments NA (test code = 137 mmol/L 135-145 4685484598) K (test code = 4.5 mmol/L 3.5-5.0 3171164505) CL (test code = 104 mmol/L 98-108 4768890293) CO2 TOTAL (test code 26 mmol/L 23-31 = 2165811526) AGAP (test code = 2-16 1438920720) BUN (test code = 10 mg/dL 7-23 5732313512) GLUCOSE (test code = 87 mg/dL 70-110 9927207777) CREATININE (test code 0.59 mg/dL 0.50-1.04 = 6132734128) TOTAL BILI (test code 0.4 mg/dL 0.1-1.1 = 7209327221) CALCIUM (test code = 9.6 mg/dL 8.6-10.6 6916107894) T PROTEIN (test code 7.1 g/dL 6.3-8.2 = 8874151224) ALBUMIN (test code = 4.2 g/dL 3.5-5.0 9200913067) ALK PHOS (test code = 88 U/L 34-122 4359604644) ALTv (test code = 22 U/L 5-35 2-6) AST(SGOT) (test code 25 U/L 13-40 = 4415418984) eGFR (test code = mL/min/1.73m2 0166086786) MACI (test code = MACI) Association of [...] or urine or abnormalities in imaging tests). [id number] 18:29:25 Test Item Value Reference Range Interpretation Comments MAGNESIUM (test code = 5029165410) 1.8 mg/dL 1.7-2.4 Lab Interpretation (test code = Normal 54253-2) [facility] [id number] 18:28:00 Test Item Value Reference Range Interpretation Comments POCT PREG (test code = 1605) negative POCT PREG LOT # (test code = 3575) [id number] POCT PREG TEST DATE (test 2022-09-12 code = 3576) Lab Interpretation (test code = Normal 33521-8) [facility] [id number] 19:26:00 Test Item Value Reference Range Interpretation Comments POCT PREG (test code = 1605) Negative On board controls acceptable with C Yes Line (test code = 3574) POCT PREG LOT # (test code = 3575) POCT PREG TEST DATE (test code = 3576) Lab Interpretation (test code = Normal 69131-5) [facility] [id number] 19:26:00 Test Item Value Reference Range Interpretation Comments POCT PREG (test code = 1605) Negative On board controls acceptable with C Yes Line (test code = 3574) POCT PREG LOT # (test code = 3575) POCT PREG TEST DATE (test code = 3576) Lab Interpretation (test code = Normal 31544-0) [facility] [id number] 19:26:00 Test Item Value Reference Range Interpretation Comments POCT PREG (test code = 1605) Negative On board controls acceptable with C Yes Line (test code = 3574) POCT PREG LOT # (test code = 3575) POCT PREG TEST DATE (test code = 3576) Lab Interpretation (test code = Normal 15333-3) [facility] ([facility] by RT-PCR (HIGH RISK) 2020-12-15 00:00:00 Test Item Value Reference Range Interpretation Comments SARS-CoV-2 INTERPRETATION (test NEGATIVE code = 59294) SOURCE (test code = 84925) NOT SPECIFIED SARS-CoV-2 (COVID-19) by RT-PCR (HIGH RISK)2020-12-15 00:00:00 Test Item Value Reference Range Interpretation Comments SARS-CoV-2 INTERPRETATION (test NEGATIVE code = 93750) SOURCE (test code = 22662) NOT SPECIFIED SARS-CoV-2 (COVID-19) by RT-PCR (HIGH RISK)2020-12-15 00:00:00 Test Item Value Reference Range Interpretation Comments SARS-CoV-2 INTERPRETATION (test NEGATIVE code = 97630) SOURCE (test code = 50681) NOT SPECIFIED SARS-CoV-2 (COVID-19) by RT-PCR (HIGH RISK)2020-12-15 00:00:00 Test Item Value Reference Range Interpretation Comments SARS-CoV-2 INTERPRETATION (test NEGATIVE code = 71336) SOURCE (test code = 94081) NOT SPECIFIED SARS-CoV-2 (COVID-19) by RT-PCR (HIGH RISK)2020-12-15 00:00:00 Test Item Value Reference Range Interpretation Comments SARS-CoV-2 INTERPRETATION (test NEGATIVE code = 84607) SOURCE (test code = 97092) NOT SPECIFIED SARS-CoV-2 (COVID-19) by RT-PCR (HIGH RISK)2020-12-15 00:00:00 Test Item Value Reference Range Interpretation Comments SARS-CoV-2 INTERPRETATION (test NEGATIVE code = 66436) SOURCE (test code = 01548) NOT SPECIFIED SARS-CoV-2 (COVID-19) by RT-PCR (HIGH RISK)2020-12-15 00:00:00 Test Item Value Reference Range Interpretation Comments SARS-CoV-2 INTERPRETATION (test NEGATIVE code = 27409) SOURCE (test code = 00965) NOT SPECIFIED SARS-CoV-2 (COVID-19) by RT-PCR (HIGH RISK)2020-12-15 00:00:00 Test Item Value Reference Range Interpretation Comments SARS-CoV-2 INTERPRETATION (test NEGATIVE code = 08503) SOURCE (test code = 81017) NOT SPECIFIED SARS-CoV-2 (COVID-19) by RT-PCR (HIGH RISK)2020-12-15 00:00:00 Test Item Value Reference Range Interpretation Comments SARS-CoV-2 INTERPRETATION (test NEGATIVE code = 72019) SOURCE (test code = 58243) NOT SPECIFIED POCT [id number] 20:47:00 Test Item Value Reference Range Interpretation Comments POCT PREG (test code = 1605) Negative On board controls acceptable with C Yes Line (test code = 3574) POCT PREG LOT # (test code = 3575) POCT PREG TEST DATE (test code = 3576) Lab Interpretation (test code = Normal 08660-7) [facility]PO[facility] [id number] 20:47:00 Test Item Value Reference Range Interpretation Comments POCT PREG (test code = 1605) Negative On board controls acceptable with C Yes Line (test code = 3574) POCT PREG LOT # (test code = 3575) POCT PREG TEST DATE (test code = 3576) Lab Interpretation (test code = Normal 30119-9) [facility] CenterGC AND CHLAMYDIA AMPLIFIED, [id number] 00:00:00 Test Item Value Reference Range Interpretation Comments GONORRHEA, TMA (test code = 83157) NEGATIVE CHLAMYDIA, TMA (test code = 75977) NEGATIVE HIV AB/AG COMBO RFLX [id number] 00:00:00 Test Item Value Reference Range Interpretation Comments HIV 1/2 4TH GEN, RFLX CONF (test NON-REACTIVE code = 3514) GC AND CHLAMYDIA AMPLIFIED, [id number] 00:00:00 Test Item Value Reference Range Interpretation Comments GONORRHEA, TMA (test code = 47335) NEGATIVE CHLAMYDIA, TMA (test code = 86886) NEGATIVE HIV AB/AG COMBO RFLX [id number] 00:00:00 Test Item Value Reference Range Interpretation Comments HIV 1/2 4TH GEN, RFLX CONF (test NON-REACTIVE code = 3514) ACUTE HEPATITIS [id number] 00:00:00 Test Item Value Reference Range Interpretation Comments HEPATITIS A IgM (test code = NON-REACTIVE 52147) HEPATITIS B CORE IgM (test code NON-REACTIVE = 4644) HEPATITIS B SURF AG (test code = NON-REACTIVE 2739) HEPATITIS C ANTIBODY (test code NON-REACTIVE = 4675) INTERPRETATION HEPATITIS A: (NOTE) (test code = 2552) INTERPRETATION HEPATITIS B: (NOTE) (test code = 73902) INTERPRETATION HEPATITIS C: (NOTE) (test code = 36874) PAP TEST, THINPREP, [id number] 00:00:00 Test Item Value Reference Range Interpretation Comments SOURCE: (test code = Endocervical 8001) SLIDES: (test code = 1 8011) LMP: (test code = 10/2020 8021) SPECIMEN ADEQUACY: (NOTE) (test code = 06050) INTERPRETATION: (test NILM/NO EPITH. code = 04581) ABNORMALITY;SEE BELOW DIRECTOR OF ASSESSING: RANJEET Riley(ASCP)IAC (test code = 8101) LOCATION: (test code (NOTE) = 43449) CPT: (test code = (NOTE) 8140) ACUTE HEPATITIS [id number] 00:00:00 Test Item Value Reference Range Interpretation Comments HEPATITIS A IgM (test code = NON-REACTIVE 99319) HEPATITIS B CORE IgM (test code NON-REACTIVE = 4644) HEPATITIS B SURF AG (test code = NON-REACTIVE 6919) HEPATITIS C ANTIBODY (test code NON-REACTIVE = 3172) INTERPRETATION HEPATITIS A: (NOTE) (test code = 2552) INTERPRETATION HEPATITIS B: (NOTE) (test code = 81734) INTERPRETATION HEPATITIS C: (NOTE) (test code = 69246) PAP TEST, THINPREP, [id number] 00:00:00 Test Item Value Reference Range Interpretation Comments SOURCE: (test code = Endocervical 8001) SLIDES: (test code = 1 8011) LMP: (test code = 10/2020 8021) SPECIMEN ADEQUACY: (NOTE) (test code = 12205) INTERPRETATION: (test NILM/NO EPITH. code = 11865) ABNORMALITY;SEE BELOW DIRECTOR OF ASSESSING: RANJEET Riley(ASCP)IAC (test code = 8101) LOCATION: (test code (NOTE) = 81280) CPT: (test code = (NOTE) 8140) [id number] 00:00:00 Test Item Value Reference Range Interpretation Comments RPR RESULT (test code = NON-REACTIVE 3501) RPR TITER (test code = 3500) NOT INDIC. TITER HPV HIGH RISK WITH GENOTYPE, [id number] 00:00:00 Test Item Value Reference Range Interpretation Comments HPV HIGH RISK INTERP (test code = NEGATIVE 51276) HPV 16 (test code = 91258) NEGATIVE HPV 18 (test code = 48832) NEGATIVE HPV, HR, OTHER GENOTYPES (test code NEGATIVE = 09519) [id number] 00:00:00 Test Item Value Reference Range Interpretation Comments RPR RESULT (test code = NON-REACTIVE 3501) RPR TITER (test code = 3500) NOT INDIC. TITER [id number] 00:00:00 Test Item Value Reference Range Interpretation Comments RPR RESULT (test code = NON-REACTIVE 3501) RPR TITER (test code = 3500) NOT INDIC. TITER HPV HIGH RISK WITH GENOTYPE, [id number] 00:00:00 Test Item Value Reference Range Interpretation Comments HPV HIGH RISK INTERP (test code = NEGATIVE 69299) HPV 16 (test code = 52680) NEGATIVE HPV 18 (test code = 39860) NEGATIVE HPV, HR, OTHER GENOTYPES (test code NEGATIVE = 60908) VAGINAL PATHOGENS DNA [id number] 00:00:00 Test Item Value Reference Range Interpretation Comments ANNE MARIE SPECIES (test code = ) NEGATIVE G. VAGINALIS (test code = 78815) NEGATIVE T. VAGINALIS (test code = ) NEGATIVE VAGINAL PATHOGENS DNA [id number] 00:00:00 Test Item Value Reference Range Interpretation Comments ANNE MARIE SPECIES (test code = ) NEGATIVE G. VAGINALIS (test code = ) NEGATIVE T. VAGINALIS (test code = ) NEGATIVE HIV AB/AG COMBO RFLX [id number] 00:00:00 Test Item Value Reference Range Interpretation Comments HIV 1/2 4TH GEN, RFLX CONF (test NON-REACTIVE code = 3514) GC AND CHLAMYDIA AMPLIFIED, [id number] 00:00:00 Test Item Value Reference Range Interpretation Comments GONORRHEA, TMA (test code = 06097) NEGATIVE CHLAMYDIA, TMA (test code = 26359) NEGATIVE HIV AB/AG COMBO RFLX [id number] 00:00:00 Test Item Value Reference Range Interpretation Comments HIV 1/2 4TH GEN, RFLX CONF (test NON-REACTIVE code = 3514) GC AND CHLAMYDIA AMPLIFIED, [id number] 00:00:00 Test Item Value Reference Range Interpretation Comments GONORRHEA, TMA (test code = 31325) NEGATIVE CHLAMYDIA, TMA (test code = 26187) NEGATIVE ACUTE HEPATITIS [id number] 00:00:00 Test Item Value Reference Range Interpretation Comments HEPATITIS A IgM (test code = NON-REACTIVE 45721) HEPATITIS B CORE IgM (test code NON-REACTIVE = 7044) HEPATITIS B SURF AG (test code = NON-REACTIVE 2839) HEPATITIS C ANTIBODY (test code NON-REACTIVE = 9975) INTERPRETATION HEPATITIS A: (NOTE) (test code = 2552) INTERPRETATION HEPATITIS B: (NOTE) (test code = 55812) INTERPRETATION HEPATITIS C: (NOTE) (test code = 12437) PAP TEST, THINPREP, [id number] 00:00:00 Test Item Value Reference Range Interpretation Comments SOURCE: (test code = Endocervical 8001) SLIDES: (test code = 1 8011) LMP: (test code = 10/2020 8021) SPECIMEN ADEQUACY: (NOTE) (test code = 29285) INTERPRETATION: (test NILM/NO EPITH. code = 76148) ABNORMALITY;SEE BELOW DIRECTOR OF ASSESSING: RANJEET Riley(ASCP)IAC (test code = 8101) LOCATION: (test code (NOTE) = 74755) CPT: (test code = (NOTE) 8140) ACUTE HEPATITIS [id number] 00:00:00 Test Item Value Reference Range Interpretation Comments HEPATITIS A IgM (test code = NON-REACTIVE 37259) HEPATITIS B CORE IgM (test code NON-REACTIVE = 4644) HEPATITIS B SURF AG (test code = NON-REACTIVE 4529) HEPATITIS C ANTIBODY (test code NON-REACTIVE = 4675) INTERPRETATION HEPATITIS A: (NOTE) (test code = 2552) INTERPRETATION HEPATITIS B: (NOTE) (test code = 26487) INTERPRETATION HEPATITIS C: (NOTE) (test code = 87867) PAP TEST, THINPREP, [id number] 00:00:00 Test Item Value Reference Range Interpretation Comments SOURCE: (test code = Endocervical 8001) SLIDES: (test code = 1 8011) LMP: (test code = 10/2020 8021) SPECIMEN ADEQUACY: (NOTE) (test code = 52551) INTERPRETATION: (test NILM/NO EPITH. code = 82429) ABNORMALITY;SEE BELOW DIRECTOR OF ASSESSING: RANJEET Riley(ASCP)IAC (test code = 8101) LOCATION: (test code (NOTE) = 92639) CPT: (test code = (NOTE) 8140) HPV HIGH RISK WITH GENOTYPE, [id number] 00:00:00 Test Item Value Reference Range Interpretation Comments HPV HIGH RISK INTERP (test code = NEGATIVE 99150) HPV 16 (test code = 71909) NEGATIVE HPV 18 (test code = 41724) NEGATIVE HPV, HR, OTHER GENOTYPES (test code NEGATIVE = 42912) [id number] 00:00:00 Test Item Value Reference Range Interpretation Comments RPR RESULT (test code = NON-REACTIVE 3501) RPR TITER (test code = 3500) NOT INDIC. TITER [id number] 00:00:00 Test Item Value Reference Range Interpretation Comments RPR RESULT (test code = NON-REACTIVE 3501) RPR TITER (test code = 3500) NOT INDIC. TITER HPV HIGH RISK WITH GENOTYPE, [id number] 00:00:00 Test Item Value Reference Range Interpretation Comments HPV HIGH RISK INTERP (test code = NEGATIVE 74872) HPV 16 (test code = 63622) NEGATIVE HPV 18 (test code = 01576) NEGATIVE HPV, HR, OTHER GENOTYPES (test code NEGATIVE = 22893) [id number] 00:00:00 Test Item Value Reference Range Interpretation Comments RPR RESULT (test code = NON-REACTIVE 3501) RPR TITER (test code = 3500) NOT INDIC. TITER VAGINAL PATHOGENS DNA [id number] 00:00:00 Test Item Value Reference Range Interpretation Comments ANNE MARIE SPECIES (test code = ) NEGATIVE G. VAGINALIS (test code = 38145) NEGATIVE T. VAGINALIS (test code = 76055) NEGATIVE VAGINAL PATHOGENS DNA [id number] 00:00:00 Test Item Value Reference Range Interpretation Comments ANNE MARIE SPECIES (test code = 24093) NEGATIVE G. VAGINALIS (test code = 06325) NEGATIVE T. VAGINALIS (test code = 49869) NEGATIVE GC AND CHLAMYDIA AMPLIFIED, [id number] 00:00:00 Test Item Value Reference Range Interpretation Comments GONORRHEA, TMA (test code = 21959) NEGATIVE CHLAMYDIA, TMA (test code = 53558) NEGATIVE HIV AB/AG COMBO RFLX [id number] 00:00:00 Test Item Value Reference Range Interpretation Comments HIV 1/2 4TH GEN, RFLX CONF (test NON-REACTIVE code = 3514) ACUTE HEPATITIS [id number] 00:00:00 Test Item Value Reference Range Interpretation Comments HEPATITIS A IgM (test code = NON-REACTIVE 55779) HEPATITIS B CORE IgM (test code NON-REACTIVE = 5344) HEPATITIS B SURF AG (test code = NON-REACTIVE 7599) HEPATITIS C ANTIBODY (test code NON-REACTIVE = 6921) INTERPRETATION HEPATITIS A: (NOTE) (test code = 2552) INTERPRETATION HEPATITIS B: (NOTE) (test code = 12857) INTERPRETATION HEPATITIS C: (NOTE) (test code = 57024) PAP TEST, THINPREP, [id number] 00:00:00 Test Item Value Reference Range Interpretation Comments SOURCE: (test code = Endocervical 8001) SLIDES: (test code = 1 8011) LMP: (test code = 10/2020 8021) SPECIMEN ADEQUACY: (NOTE) (test code = 18141) INTERPRETATION: (test NILM/NO EPITH. code = 24216) ABNORMALITY;SEE BELOW DIRECTOR OF ASSESSING: RANJEET Riley(ASCP)IAC (test code = 8101) LOCATION: (test code (NOTE) = 59057) CPT: (test code = (NOTE) 8140) HPV HIGH RISK WITH GENOTYPE, [id number] 00:00:00 Test Item Value Reference Range Interpretation Comments HPV HIGH RISK INTERP (test code = NEGATIVE 22713) HPV 16 (test code = 91031) NEGATIVE HPV 18 (test code = 37969) NEGATIVE HPV, HR, OTHER GENOTYPES (test code NEGATIVE = 05085) [id number] 00:00:00 Test Item Value Reference Range Interpretation Comments RPR RESULT (test code = NON-REACTIVE 3501) RPR TITER (test code = 3500) NOT INDIC. TITER [id number] 00:00:00 Test Item Value Reference Range Interpretation Comments RPR RESULT (test code = NON-REACTIVE 3501) RPR TITER (test code = 3500) NOT INDIC. TITER VAGINAL PATHOGENS DNA [id number] 00:00:00 Test Item Value Reference Range Interpretation Comments ANNE MARIE SPECIES (test code = ) NEGATIVE G. VAGINALIS (test code = ) NEGATIVE T. VAGINALIS (test code = ) NEGATIVE GC AND CHLAMYDIA AMPLIFIED, [id number] 00:00:00 Test Item Value Reference Range Interpretation Comments GONORRHEA, TMA (test code = 39966) NEGATIVE CHLAMYDIA, TMA (test code = 86790) NEGATIVE GC AND CHLAMYDIA AMPLIFIED, [id number] 00:00:00 Test Item Value Reference Range Interpretation Comments GONORRHEA, TMA (test code = 51241) NEGATIVE CHLAMYDIA, TMA (test code = 31807) NEGATIVE HIV AB/AG COMBO RFLX [id number] 00:00:00 Test Item Value Reference Range Interpretation Comments HIV 1/2 4TH GEN, RFLX CONF (test NON-REACTIVE code = 3514) HIV AB/AG COMBO RFLX [id number] 00:00:00 Test Item Value Reference Range Interpretation Comments HIV 1/2 4TH GEN, RFLX CONF (test NON-REACTIVE code = 3514) PAP TEST, THINPREP, [id number] 00:00:00 Test Item Value Reference Range Interpretation Comments SOURCE: (test code = Endocervical 8001) SLIDES: (test code = 1 8011) LMP: (test code = 10/2020 8021) SPECIMEN ADEQUACY: (NOTE) (test code = 86243) INTERPRETATION: (test NILM/NO EPITH. code = 02139) ABNORMALITY;SEE BELOW DIRECTOR OF ASSESSING: RANJEET Riley(ASCP)IAC (test code = 8101) LOCATION: (test code (NOTE) = 60893) CPT: (test code = (NOTE) 8140) ACUTE HEPATITIS [id number] 00:00:00 Test Item Value Reference Range Interpretation Comments HEPATITIS A IgM (test code = NON-REACTIVE 02362) HEPATITIS B CORE IgM (test code NON-REACTIVE = 4644) HEPATITIS B SURF AG (test code = NON-REACTIVE 2739) HEPATITIS C ANTIBODY (test code NON-REACTIVE = 4675) INTERPRETATION HEPATITIS A: (NOTE) (test code = 2552) INTERPRETATION HEPATITIS B: (NOTE) (test code = 61355) INTERPRETATION HEPATITIS C: (NOTE) (test code = 95803) PAP TEST, THINPREP, [id number] 00:00:00 Test Item Value Reference Range Interpretation Comments SOURCE: (test code = Endocervical 8001) SLIDES: (test code = 1 8011) LMP: (test code = 10/2020 8021) SPECIMEN ADEQUACY: (NOTE) (test code = 10820) INTERPRETATION: (test NILM/NO EPITH. code = 51672) ABNORMALITY;SEE BELOW DIRECTOR OF ASSESSING: RANJEET Riley(ASCP)IAC (test code = 8101) LOCATION: (test code (NOTE) = 95158) CPT: (test code = (NOTE) 8140) ACUTE HEPATITIS [id number] 00:00:00 Test Item Value Reference Range Interpretation Comments HEPATITIS A IgM (test code = NON-REACTIVE 11748) HEPATITIS B CORE IgM (test code NON-REACTIVE = 4644) HEPATITIS B SURF AG (test code = NON-REACTIVE 2739) HEPATITIS C ANTIBODY (test code NON-REACTIVE = 4675) INTERPRETATION HEPATITIS A: (NOTE) (test code = 2552) INTERPRETATION HEPATITIS B: (NOTE) (test code = 85121) INTERPRETATION HEPATITIS C: (NOTE) (test code = 56216) [id number] 00:00:00 Test Item Value Reference Range Interpretation Comments RPR RESULT (test code = NON-REACTIVE 3501) RPR TITER (test code = 3500) NOT INDIC. TITER HPV HIGH RISK WITH GENOTYPE, [id number] 00:00:00 Test Item Value Reference Range Interpretation Comments HPV HIGH RISK INTERP (test code = NEGATIVE 62126) HPV 16 (test code = 62518) NEGATIVE HPV 18 (test code = 82850) NEGATIVE HPV, HR, OTHER GENOTYPES (test code NEGATIVE = 86246) [id number] 00:00:00 Test Item Value Reference Range Interpretation Comments RPR RESULT (test code = NON-REACTIVE 3501) RPR TITER (test code = 3500) NOT INDIC. TITER [id number] 00:00:00 Test Item Value Reference Range Interpretation Comments RPR RESULT (test code = NON-REACTIVE 3501) RPR TITER (test code = 3500) NOT INDIC. TITER HPV HIGH RISK WITH GENOTYPE, [id number] 00:00:00 Test Item Value Reference Range Interpretation Comments HPV HIGH RISK INTERP (test code = NEGATIVE 67447) HPV 16 (test code = 67399) NEGATIVE HPV 18 (test code = 28365) NEGATIVE HPV, HR, OTHER GENOTYPES (test code NEGATIVE = 62398) VAGINAL PATHOGENS DNA [id number] 00:00:00 Test Item Value Reference Range Interpretation Comments ANNE MARIE SPECIES (test code = ) NEGATIVE G. VAGINALIS (test code = 05905) NEGATIVE T. VAGINALIS (test code = 11818) NEGATIVE VAGINAL PATHOGENS DNA [id number] 00:00:00 Test Item Value Reference Range Interpretation Comments ANNE MARIE SPECIES (test code = 56423) NEGATIVE G. VAGINALIS (test code = 20795) NEGATIVE T. VAGINALIS (test code = 32496) NEGATIVE GC AND CHLAMYDIA AMPLIFIED, [id number] 00:00:00 Test Item Value Reference Range Interpretation Comments GONORRHEA, TMA (test code = 16058) NEGATIVE CHLAMYDIA, TMA (test code = 09108) NEGATIVE HIV AB/AG COMBO RFLX [id number] 00:00:00 Test Item Value Reference Range Interpretation Comments HIV 1/2 4TH GEN, RFLX CONF (test NON-REACTIVE code = 3514) HIV AB/AG COMBO RFLX [id number] 00:00:00 Test Item Value Reference Range Interpretation Comments HIV 1/2 4TH GEN, RFLX CONF (test NON-REACTIVE code = 3514) GC AND CHLAMYDIA AMPLIFIED, [id number] 00:00:00 Test Item Value Reference Range Interpretation Comments GONORRHEA, TMA (test code = 87699) NEGATIVE CHLAMYDIA, TMA (test code = 02635) NEGATIVE ACUTE HEPATITIS [id number] 00:00:00 Test Item Value Reference Range Interpretation Comments HEPATITIS A IgM (test code = NON-REACTIVE 81744) HEPATITIS B CORE IgM (test code NON-REACTIVE = 4644) HEPATITIS B SURF AG (test code = NON-REACTIVE 2739) HEPATITIS C ANTIBODY (test code NON-REACTIVE = 4675) INTERPRETATION HEPATITIS A: (NOTE) (test code = 2552) INTERPRETATION HEPATITIS B: (NOTE) (test code = 31207) INTERPRETATION HEPATITIS C: (NOTE) (test code = 60787) PAP TEST, THINPREP, [id number] 00:00:00 Test Item Value Reference Range Interpretation Comments SOURCE: (test code = Endocervical 8001) SLIDES: (test code = 1 8011) LMP: (test code = 10/2020 8021) SPECIMEN ADEQUACY: (NOTE) (test code = 37244) INTERPRETATION: (test NILM/NO EPITH. code = 75599) ABNORMALITY;SEE BELOW DIRECTOR OF ASSESSING: RANJEET Riley(ASCP)IAC (test code = 8101) LOCATION: (test code (NOTE) = 86951) CPT: (test code = (NOTE) 8140) ACUTE HEPATITIS [id number] 00:00:00 Test Item Value Reference Range Interpretation Comments HEPATITIS A IgM (test code = NON-REACTIVE 74025) HEPATITIS B CORE IgM (test code NON-REACTIVE = 4644) HEPATITIS B SURF AG (test code = NON-REACTIVE 2739) HEPATITIS C ANTIBODY (test code NON-REACTIVE = 4675) INTERPRETATION HEPATITIS A: (NOTE) (test code = 2552) INTERPRETATION HEPATITIS B: (NOTE) (test code = 13721) INTERPRETATION HEPATITIS C: (NOTE) (test code = 30548) PAP TEST, THINPREP, [id number] 00:00:00 Test Item Value Reference Range Interpretation Comments SOURCE: (test code = Endocervical 8001) SLIDES: (test code = 1 8011) LMP: (test code = 10/2020 8021) SPECIMEN ADEQUACY: (NOTE) (test code = 19199) INTERPRETATION: (test NILM/NO EPITH. code = 26323) ABNORMALITY;SEE BELOW DIRECTOR OF ASSESSING: RANJEET Riley(ASCP)IAC (test code = 8101) LOCATION: (test code (NOTE) = 30986) CPT: (test code = (NOTE) 8140) HPV HIGH RISK WITH GENOTYPE, [id number] 00:00:00 Test Item Value Reference Range Interpretation Comments HPV HIGH RISK INTERP (test code = NEGATIVE 11860) HPV 16 (test code = 44256) NEGATIVE HPV 18 (test code = 34926) NEGATIVE HPV, HR, OTHER GENOTYPES (test code NEGATIVE = 62109) [id number] 00:00:00 Test Item Value Reference Range Interpretation Comments RPR RESULT (test code = NON-REACTIVE 3501) RPR TITER (test code = 3500) NOT INDIC. TITER [id number] 00:00:00 Test Item Value Reference Range Interpretation Comments RPR RESULT (test code = NON-REACTIVE 3501) RPR TITER (test code = 3500) NOT INDIC. TITER HPV HIGH RISK WITH GENOTYPE, [id number] 00:00:00 Test Item Value Reference Range Interpretation Comments HPV HIGH RISK INTERP (test code = NEGATIVE 13428) HPV 16 (test code = 69164) NEGATIVE HPV 18 (test code = 40886) NEGATIVE HPV, HR, OTHER GENOTYPES (test code NEGATIVE = 96180) [id number] 00:00:00 Test Item Value Reference Range Interpretation Comments RPR RESULT (test code = NON-REACTIVE 3501) RPR TITER (test code = 3500) NOT INDIC. TITER VAGINAL PATHOGENS DNA [id number] 00:00:00 Test Item Value Reference Range Interpretation Comments ANNE MARIE SPECIES (test code = 79572) NEGATIVE G. VAGINALIS (test code = 96217) NEGATIVE T. VAGINALIS (test code = ) NEGATIVE VAGINAL PATHOGENS DNA [id number] 00:00:00 Test Item Value Reference Range Interpretation Comments ANNE MARIE SPECIES (test code = ) NEGATIVE G. VAGINALIS (test code = ) NEGATIVE T. VAGINALIS (test code = ) NEGATIVE
[2022-12-08 22:49] LABS: Specific Gravity 1.024 (1.005-1.030); Urine Bacteria <20 /HPF (<20); Urine Bilirubin NEGATIVE (Negative); Urine Blood Negative (Negative); Urine Clarity Turbid (Clear); Urine Color Yellow (Yellow); Urine Crystals Unidentified Few /HPF (None Seen); Urine Glucose NEGATIVE (Negative); Urine Mucus 2+ /HPF (None Seen); Urine Protein TRACE (Negative); Urine RBC <5 /HPF (None Seen); Urine Urobilinogen Normal (Normal)
[2022-12-08 22:53] LABS: Absolute Lymphocytes (CBC) 3.9 K/uL (0.7-4.9); Hematocrit 38.5 % (36.0-45.0); MCV 85.9 fL (80-100); MPV 7.9 fL (7.6-11.3); RBC Red Blood Cell Count 4.49 M/uL (3.86-4.86)
[2022-12-08] MEDS ORDERED: LORazepam 2 MG/ML VIAL ONE (23:00)
[2022-12-08] MEDS ORDERED: ONDANSETRON 4 MG/2 ML VIAL ONE (23:01)
[2022-12-08] MEDS ORDERED: MORPHINE 4 MG/ML SYR ONE (23:04)
[2022-12-08 23:07] LABS: Albumin 3.5 g/dL (3.4-5.0); Bilirubin Total 0.1 mg/dL (0.2-1.0)
[2022-12-08 23:17] LABS: Potassium 3.7 mEq/L (3.5-5.1)
--- NOTE | 2022-12-09 01:36 | EDPHYS ---
Physician Documentation [facility] Name: Claudine Morales Age: 32 yrs Sex: Female : 1990 Arrival Date: 12/08/2022 Time: 20:19 Bed 13 Private MD: ED Physician Guillermo Landis HPI: 12/08 21:18 This 32 yrs old Female presents to ER via Ambulatory with complaints of Pelvic Pain, jmm PELVIC PRESSURE, Nausea. 21:18 The patient presents with abdominal pain. Onset: The symptoms/episode began/occurred jmm gradually, 2 day(s) ago. The symptoms do not radiate. Associated signs and symptoms: Pertinent positives: nausea and vomiting, diarrhea. The symptoms are described as achy. Modifying factors: The symptoms are alleviated by nothing, the symptoms are aggravated by nothing. The patient has not experienced similar symptoms in the past. 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 - Social history:: Smoking status: Patient denies any tobacco usage or history of. ROS: 21:18 Constitutional: Negative for fever, chills, and weight loss, Cardiovascular: Negative jmm for chest pain, palpitations, and edema, Respiratory: Negative for shortness of breath, cough, wheezing, and pleuritic chest pain. 21:18 Abdomen/GI: Positive for abdominal pain, nausea and vomiting, diarrhea. 21:18 All other systems are negative. Exam: 21:18 Constitutional: This is a well developed, well nourished patient who is awake, alert, jmm and in no acute distress. Head/Face: atraumatic. Eyes: EOMI, no conjunctival erythema appreciated ENT: Moist Mucus Membranes Neck: Trachea midline, Supple Chest/axilla: Normal chest wall appearance and motion. Cardiovascular: Regular rate and rhythm. No edema appreciated Respiratory: Normal respirations, no respiratory distress appreciated 21:18 Back: Normal ROM Skin: General appearance color normal MS/ Extremity: Moves all extremities, no obvious deformities appreciated, no edema noted to the lower extremities Neuro: Awake and alert Psych: Behavior is normal, Mood is normal, Patient is cooperative and pleasant 21:18 Abdomen/GI: Inspection: abdomen appears normal, Bowel sounds: normal, Palpation: soft, mild abdominal tenderness, in the right lower quadrant. Vital Signs: 20:29 BP 132 / 100; Pulse 86; Resp 18; Temp 98.4; Pulse Ox 97% ; Weight 127.01 kg; Height 4 vc ft. 11 in. ; Pain 2/10; 23:00 BP 119 / 82; Pulse 88; Resp 20; Pulse Ox 97% ; [facility] 12/09 00:03 BP 96 / 57; Pulse 83; Resp 19; Pulse Ox 100% ; 1 01:05 BP 107 / 68; Pulse 83; Resp 19; Pulse Ox 96% on R/A; 1 02:00 BP 107 / 69; Pulse 70; Resp 18; Pulse Ox 99% ; [facility] 12/08 20:29 Body Mass Index 56.55 (127.01 kg, 149.86 cm) [facility] 12/08 20:29 Pain Scale: Adult [facility] MDM: 12/08 21:18 Patient medically screened. [facility] 12/09 02:47 Differential diagnosis: appendicitis, bowel obstruction, Cholelithiasis, [facility] diverticulitis, pancreatitis, Peptic Ulcer Disease, Perf. Duodenal Ulcer, Perf. Gastric Ulcer, Peritonitis, Pyelonephritis, Ureterolithiasis. Data reviewed: vital signs, nurses notes, lab test result(s), radiologic studies. I considered the following discharge prescriptions or medication management in the emergency department Medications were administered in the Emergency Department. See MAR. Counseling: I had a detailed discussion with the patient and/or guardian regarding: the historical points, exam findings, and any diagnostic results supporting the discharge/admit diagnosis, radiology results, the need for outpatient follow up, to return to the emergency department if symptoms worsen or persist or if there are any questions or concerns that arise at home. 12/08 21:19 Order name: CBC with Diff; Complete Time: 23:00 [facility] 12/08 21:19 Order name: CMP; Complete Time: 23:19 [facility] 12/08 21:19 Order name: Lipase; Complete Time: 23:19 [facility] 12/08 21:19 Order name: Test, Urine; Complete Time: 22:52 [facility] 12/08 21:19 Order name: Urinalysis w/ reflexes; Complete Time: 22:52 [facility] 12/08 21:19 Order name: CT Abd/Pelvis - IV Contrast Only [facility] 12/08 21:19 Order name: IV Saline Lock; Complete Time: 22:34 [facility] 12/08 21:19 Order name: Labs collected and sent; Complete Time: 22:34 [facility] Administered Medications: 12/08 22:58 Drug: Ativan IVP 1 mg Route: IVP; Site: right antecubital; vc1 22:58 Drug: morphine IVP or IV 4 mg Route: IVP; Infused Over: 4 mins; Site: right antecubital;vc1 22:58 Drug: Ondansetron IVP 4 mg Route: IVP; Site: right antecubital; vc1 Disposition: 12/09 05:47 Co-signature as Attending Physician, Guillermo Landis MD I agree with the assessment sp4 and plan of care. I reviewed the patient's care provided by the Advanced Practice Provider and agree with the diagnosis and treatment plan. Disposition Summary: 12/09/22 01:35 Discharge Ordered Location: Home [facility] Condition: Stable [facility] Diagnosis - Vomiting jmm - Diarrhea, unspecified jmm Followup: [facility] - With: Private Physician - When: 2 - 3 days - Reason: Recheck today's complaints, Continuance of care, Re-evaluation by your physician Discharge Instructions: - Discharge Summary Sheet [facility] - Food Choices to Help Relieve Diarrhea, Adult jmm - Diarrhea, Adult jmm - Vomiting, Adult [facility] Forms: - Medication Reconciliation Form [facility] - Thank You Letter [facility] - Antibiotic Education [facility] - Prescription Opioid Use [facility] Prescriptions: - ondansetron 4 mg Oral Tablet,disintegrating - take 1 tablet by ORAL route every 4-6 hours As needed; 30 tablet; Refills: 0, [facility] Product Selection Permitted - dicyclomine 20 mg Oral Tablet - take 1 tablet by ORAL route 4 times per day As needed; 30 tablet; Refills: 0, [facility] Product Selection Permitted Signatures: Dispatcher [employer] Omar Gomes PA PA jmm Calcote, Vanessa, RN RN vc1 Guillermo Landis MD MD sp4
--- NOTE | 2022-12-09 01:36 | ER ---
Nurse's Notes [facility] Name: Claudine Morales Age: 32 yrs Sex: Female : 1990 Arrival Date: 12/08/2022 Time: 20:19 Bed 13 Private MD: Diagnosis: Vomiting;Diarrhea, unspecified Presentation: 12/08 20:29 Chief complaint: Patient states: "I started off with a pain under my belly button, then vc1 it was a pain in my right side then a sharp pain on the lower right side/hip area. When I went to get out of bed to go to the bathroom I put pressure on my right leg I almost fell over. I went to the bathroom and felt better. I can't lay on my left side because it causes pain on my right side/hip. I am nauseous and can't eat.". Coronavirus screen: Vaccine status: Patient reports receiving the 2nd dose of the covid vaccine. plus booster; Inspirato At this time, the client does not indicate any symptoms associated with coronavirus-19. Ebola Screen: Patient negative for fever greater than or equal to 101.5 degrees Fahrenheit, and additional compatible Ebola Virus Disease symptoms Patient denies exposure to infectious person. Patient denies travel to an Ebola-affected area in the 21 days before illness onset. No symptoms or risks identified at this time. Initial Sepsis Screen: Does the patient meet any 2 criteria? No. Patient's initial sepsis screen is negative. Does the patient have a suspected source of infection? No. Patient's initial sepsis screen is negative. Risk Assessment: Do you want to hurt yourself or someone else? Patient reports no desire to harm self or others. Onset of symptoms was December 07, 2022 at 08:00. 20:29 Method Of Arrival: Ambulatory vc1 20:29 Acuity: VANDANA 3 vc1 Triage Assessment: 20:35 General: Appears in no apparent distress. uncomfortable, obese, Behavior is calm, vc1 cooperative, appropriate for age. Pain: Complains of pain in abdomen, right iliac crest and right hip Pain does not radiate. Pain currently is 2 out of 10 on a pain scale. at worst was 6 out of 10 on a pain scale. Quality of pain is described as sharp, stabbing. EENT: No deficits noted. No signs and/or symptoms were reported regarding the EENT system. Neuro: Level of Consciousness is awake, alert, obeys commands, Oriented to person, place, time, situation, Appropriate for age. Cardiovascular: No deficits noted. Respiratory: Airway is patent Respiratory effort is even, unlabored, Respiratory pattern is regular, symmetrical. GI: Reports lower abdominal pain, gaseousness, intolerance of fluids, intolerance of food. : No deficits noted. No signs and/or symptoms were reported regarding the genitourinary system. Derm: No deficits noted. No signs and/or symptoms reported regarding the dermatologic system. Musculoskeletal: No deficits noted. No signs and/or symptoms reported regarding the musculoskeletal system. 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 - Social history:: Smoking status: Patient denies any tobacco usage or history of. Screenin:35 Abuse screen: Denies threats or abuse. Nutritional screening: No deficits noted. vc1 Tuberculosis screening: No symptoms or risk factors identified. 12/09 00:01 [facility] ED Fall Risk Assessment (Adult) History of falling in the last 3 months, vc1 including since admission No falls in past 3 months (0 pts) Confusion or Disorientation No (0 pts) Intoxicated or Sedated No (0 pts) Impaired Gait No (0 pts) Mobility Assist Device Used No (0 pt) Altered Elimination No (0 pt) Score/Fall Risk Level 0 - 2 = Low Risk Oriented to surroundings, Maintained a safe environment, Educated pt \\T\\ family on fall prevention, incl call for assistance when getting out of bed. Assessment: 12/08 22:30 Reassessment: Patient and/or family updated on plan of care and expected duration. Pain vc1 level reassessed. Patient is alert, oriented x 3, equal unlabored respirations, skin warm/dry/pink. GI: Abdomen is non-distended, obese, Reports lower abdominal pain, intolerance of fluids, intolerance of food. 12/09 01:05 Reassessment: Patient and/or family updated on plan of care and expected duration. Pain vc1 level reassessed. Patient is alert, oriented x 3, equal unlabored respirations, skin warm/dry/pink. 02:39 Reassessment: Patient and/or family updated on plan of care and expected duration. Pain vc1 level reassessed. Patient is alert, oriented x 3, equal unlabored respirations, skin warm/dry/pink. Patient states feeling better. Patient states symptoms have improved. Vital Signs: 12/08 20:29 BP 132 / 100; Pulse 86; Resp 18; Temp 98.4; Pulse Ox 97% ; Weight 127.01 kg; Height 4 vc1 ft. 11 in. ; Pain 2/10; 23:00 BP 119 / 82; Pulse 88; Resp 20; Pulse Ox 97% ; vc1 12/09 00:03 BP 96 / 57; Pulse 83; Resp 19; Pulse Ox 100% ; vc1 01:05 BP 107 / 68; Pulse 83; Resp 19; Pulse Ox 96% on R/A; vc1 02:00 BP 107 / 69; Pulse 70; Resp 18; Pulse Ox 99% ; vc1 12/08 20:29 Body Mass Index 56.55 (127.01 kg, 149.86 cm) vc1 12/08 20:29 Pain Scale: Adult vc1 ED Course: 12/08 20:24 Patient arrived in ED. jj6 20:33 Triage completed. vc1 20:34 Arm band placed on right wrist. vc1 20:52 Omar Maldonado PA is PHCP. [facility] 20:52 Guillermo Landis MD is Attending Physician. [facility] 22:00 Patient has correct armband on for positive identification. Bed in low position. Call vc1 light in reach. Pulse ox on. NIBP on. 22:34 Lauren Montes De Oca, MALOU is Primary Nurse. vc1 22:34 Inserted saline lock: 20 gauge in right antecubital area, using aseptic technique. vc1 Blood collected. 22:34 No provider procedures requiring assistance completed. vc1 12/09 00:12 CT Abd/Pelvis - IV Contrast Only In Process Unspecified. EDMS 02:39 IV discontinued, intact, bleeding controlled, No redness/swelling at site. Pressure vc1 dressing applied. Administered Medications: 12/08 22:58 Drug: Ativan IVP 1 mg Route: IVP; Site: right antecubital; vc1 22:58 Drug: morphine IVP or IV 4 mg Route: IVP; Infused Over: 4 mins; Site: right antecubital;vc1 22:58 Drug: Ondansetron IVP 4 mg Route: IVP; Site: right antecubital; vc1 Medication: 22:34 VIS not applicable for this client. vc1 Outcome: 12/09 01:35 Discharge ordered by . placido 02:39 Discharged to home ambulatory, with significant other. vc1 02:39 Condition: good 02:39 Discharge instructions given to patient, Instructed on discharge instructions, follow up and referral plans. medication usage, Demonstrated understanding of instructions, follow-up care, medications, Prescriptions given X 2. 02:41 Patient left the ED. vc1 Signatures: Dispatcher [employer] EDMS Omar Maldonado PA PA jmm Jeffries, Jennifer [id number] Lauren Montes De Oca RN RN vc1
[2022-12-09 03:04] VITALS: TEMP 98.4
[2022-12-09 03:52] VITALS: BP 96/57; O2SAT 100
--- NOTE | 2022-12-10 15:39 | RAD REPORT ---
EXAM DESCRIPTION: CT - Abdomen Pelvis W Contrast - 12/09/2022 7:30 am CLINICAL HISTORY: Lower abdominal pain. TECHNIQUE: CT scan of the abdomen and pelvis was performed with intravenous contrast. 5 mm axial aleksey ges were obtained along with coronal and sagittal reformatted images. COMPARISON: None. DOSE OPTIMIZATION: This facility uses dose optimization techniques as appropriate to perform exams, i ncluding at least one of the following techniques: 1. Automated exposure control. 2. Adjustment of the mA and/or kV according to patient size (this includes techniques or standardized protocols for targeted exams where dose is matched to the indication/reason for exam, i.e. extremiti es or head). 3. Use of iterative reconstructive technique. FINDINGS: Lung Bases: No active disease. Liver: Normal. Spleen: Normal. Pancreas: Normal. Gallbladder: Normal. Adrenal Glands: Normal. Kidneys: Normal. Retroperitoneal Structures: Normal. Bowel Survey: The stomach is nondistended. There are mildly distended proximal small bowel loops in the region of the duodenum and jejunum The appendix is unremarkable. There is a moderate amount residual stool identified throughout the colon. Uterus and Adnexa: Normal. Urinary Bladder: Normal. Peritoneal Cavity: Normal. Mesenteric Structures: Normal. Abdominal Wall: No hernia. Bony Structures: No suspicious lesions. There is severe facet arthropathy at L4-L5 and L5-S1. 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 IMPRESSION: 1. Moderate amount residual stool throughout the colon. 2. Mildly distended duodenal and proximal small bowel loops. Consider enteritis. Electronically signed by: Axel Harp MD 12/09/2022 12:27 AM CDT Due to temporary technical issues with the PACS/Fluency reporting system, reports are being signed by the in house radiologists without review as a courtesy to insure prompt reporting. The interpreting radiologist is fully responsible for the content of the report.
== END 2022-12-09 02:41 | disposition home or self-care (01) ==
LOC: ER 20:19
DX: R11.2 Nausea with vomiting, unspecified (principal); R19.7 Diarrhea, unspecified; R10.31 Right lower quadrant pain; Z88.8 Allergy status to other drugs, medicaments and biological substances
CPT/HCPCS: 85025; 81001; 36415; 81025; 83690; 80053; 74177; Q9967; J2405; 96374; 96375; 99284

== ENCOUNTER 2022-12-28 07:22 | Day surgery (SDC) | payer OTHER ==
[2022-12-28] MEDS ORDERED: NA CHLORIDE 0.9% 1,000 ML ONE (09:31)
[2022-12-28] MEDS ORDERED: MIDAZOLAM HCL 2 MG/2 ML INJ ONE ×3 (10:55→12:24)
[2022-12-28] MEDS ORDERED: dexAMETHasone 10 MG/ML VIAL ONE (10:56)
[2022-12-28] MEDS ORDERED: LIDOCAINE 2% MPF 5 ML VIAL ONE (10:56)
[2022-12-28] MEDS ORDERED: FENTANYL CITR 100 MCG/2 ML ONE (10:56)
[2022-12-28] MEDS ORDERED: propofoL 200 MG/20 ML VIAL IV ONE (10:56)
[2022-12-28] MEDS ORDERED: ONDANSETRON 4 MG/2 ML VIAL ONE ×2 (10:57→12:11)
[2022-12-28] MEDS ORDERED: ROCURONIUM 50 MG/5 ML VIAL IV ONE (10:57)
[2022-12-28] MEDS: BUPIVACAINE 0.25% PF 10 ML VIAL ONE ×2 (10:57→11:33)
[2022-12-28] MEDS ORDERED: EPINEPHRINE/PF 1 MG/ML AMP ONE (10:57)
[2022-12-28 11:03] LABS: Urine Specific Gravity/Preg >1.030 (1.005-1.030)
[2022-12-28] MEDS ORDERED: SUCCINYLCHOLINE 20 MG/ML (10 ML) IV ONE (11:03)
[2022-12-28] MEDS ORDERED: DEXMEDETOMIDINE HCL 200 MCG/2 ML VIAL ONE (11:04)
[2022-12-28] MEDS ORDERED: NS 0.9% VIAL 10 ML ONE (11:16)
[2022-12-28] MEDS ORDERED: GLYCOPYRROLATE 0.2 MG/ML SYR ONE (11:31)
[2022-12-28] MEDS: HYDROMORPHONE HCL 1 MG/ML INJ ONE ×3 (12:07→12:58)
[2022-12-28] MEDS ORDERED: ALBUTEROL 2.5 MG/3 ML NEB SOL ONE (12:12)
[2022-12-28] MEDS ORDERED: HYDROMORPHONE HCL 1 MG/ML INJ ONE (13:02)
[2022-12-28 13:42] VITALS: TEMP 98
[2022-12-28 14:31] VITALS: BP 132/87; O2SAT 97
--- NOTE | 2022-12-29 11:03 | OP ---
Date of Procedure: 12/28/2022 Surgeon: DANE WILLIAMSON Procedure: Tonsillectomy. Anesthesia: General endotracheal anesthesia was administered. I also infiltrated approximately 10 m L of 0.25% Marcaine with 1:100,000 epinephrine into bilateral tonsillar fossa and soft palate and uvu la. Estimated Blood Loss: Less than 2 mL. Specimens: Bilateral tonsils submitted to Pathology for evaluation. Findings: Bilateral cryptic tonsils with tonsillar hypertrophy 2+/4; no evidence of adenoidal hypert rophy. Complications: None. Disposition: Stable. The patient tolerated the procedure well. Description Of Procedure: Patient was transferred from the preoperative holding area to the operativ e suite by the Department of Anesthesia, placed on the operating room table supine, sedated and intub ated in normal fashion. Table was rotated 90 degrees and the patient was placed into Trendelenburg p ositioning. Her head and eyes were covered with sterile blue towels and a moist Ray-Wing was placed o binh the upper lip for protection. A McIvor retractor was introduced into the right oral commissure a nd directed along the endotracheal tube and suspended from the Dorsey stand. Tonsils were removed by retracting the superior poles midline and dissecting through the mucosa down the peritonsillar fascial plane utilizing monopolar electrocautery on a setting of 20 for coagulation and 1 of cutting. Dissection continued within the planes whereby the inferior poles were amputated with suction Bovie cautery. Saline irrigation was introduced into oral cavity and removed with sucti on Bovie. I then infiltrated the tonsillar fossa with 10 mL of 0.25% Marcaine with 1:100,000 epineph rine and also injected the soft palate and uvula. A flexible orogastric tube was inserted into the e sophagus and stomach and all fluid contents were removed. All other areas were checked for hemostasi s and hemostasis was achieved. Patient was then de-suspended from the Dorsey stand and the McIvor retr actor was removed. Patient's jaw was checked and found to be in proper alignment. She was then brambila sferred by Department of Anesthesia in stable condition where she was subsequently awakened, extubate d, and transferred to postoperative care unit in stable condition. She will be discharged home on an algesic medication and will follow up in 1 to 2 weeks or sooner if needed. KD/MODL Voice ID: [id number] Report ID: [id number]
== END 2022-12-28 14:51 | disposition home or self-care (01) ==
LOC: OR 07:22
PROVIDERS: ATTEND Otolaryngology Facial Plastic Surgery
PROC: 0CTPXZZ Resection of Tonsils, External Approach (ICD-10-PCS; principal; 2022-12-28 11:00)
DX: J35.1 Hypertrophy of tonsils (principal)
CPT/HCPCS: 81025; 82947 ×2; 88304; 42826; A4216; J2704; J0171; J7613; J2001; J2250 ×3; J3010; J1100; J1170 ×2; J2405 ×2; J7030

== ENCOUNTER 2022-12-30 04:45 | Emergency (ER) | payer OTHER ==
--- OUTSIDE RECORDS SUMMARY | 2022-12-30 04:56 | XMS REPORT | Continuity of Care Document ---
:1990 Author Organization [facility] t Address [address] [place] [address] [place] [id number] Care Team Providers Name Role Phone MARGIE DIAMOND Primary Care Physician Unavailable Margie Damon Attending Clinician Yamil PHOENIX Attending Clinician Unavailable Yamil Monroy Attending Clinician YOON PAGE Attending Clinician Unavailable Yoon Page MD Attending Clinician Doctor Unassigned, [place] Attending Clinician Unavailable Pgy2 Attending Clinician Unavailable Marques Mansfield MD Attending Clinician [facility] Resident Attending Clinician Unavailable Aracely Villanueva MD Attending Clinician Dena Santos MD Attending Clinician [phone] Jeanette Henley MD Attending Clinician JEANETTE HENLEY [...] rs active active ity of problems problems [facility] Allergies, Adverse Reactions, Alerts Allergy Allergy Status Severity Reaction(s) Onset Inactive Treating Comm ents Source Name Type Date Date Clinician Alicia Carrasco Active 2022-0 - Oral ty to 8-25 adverse 00:00: reaction 00 to drug NO KNOWN Drug Active [facility] ALLERGIE Class [facility] Social History Social Habit Start Date Stop Date Quantity Comments Source Exposure to Not sure [facility] SARS-CoV-2 (event) Medica l Branch Alcohol intake 2021-06-24 2021-06-24 [facility] 00:00:00 00:00:00 Medical Branch Sex Assigned At [address] [facility] 00:00:00 00:00:00 Medical Branch Smoking Status Start Date Stop Date Source Tobacco smoking consumption [facility] Medical unknown Branch Medications Ordered [...] 07/27/21 at 1330, Routine famotidine 2020-08 Yes [id number] 40mg Take 1 Univers (PEPCID) 40 2-15 tablet by ity of mg tablet 00:00: mouth [place] 00 daily. Medical Branch ibuprofen 2020-08 Yes [id number] 600mg Take 1 U nivers 600 mg 2-15 tablet by ity of tablet 00:00: mouth [place] 00 every 6 Medical (six) Branch hours as needed for Pain (scale 4-6). methocarbam 2020-08 Yes [id number] 500mg Take 1 Univers oL 500 mg 2-15 tablet by ity o f tablet 00:00: mouth 4 [place] 00 (four) Medical times Branch daily. famotidine 2020-08 Yes [id number] 40mg Take 1 Univers (PEPCID) 40 2-15 tablet by ity of mg tablet 00:00: mouth 00 daily. Medical Branch ibuprofen 2020-08 Yes [id number] 600mg Take 1 U nivers 600 mg 2-15 tablet by ity of tablet 00:00: mouth [place] 00 every 6 Medical (six) Branch hours as needed for Pain (scale 4-6). methocarbam 2020-08 Yes [id number] 500mg Take 1 Univers oL 500 mg [...] 9-20 00:00: 00 levonorgest 2020-0 2020- No [id number] 1{devic Univers reL 01-05 100 e} ity of (LILETTA) 21:00: 21:00 [place] IUD 1 00 :00 [employer] Branch ibuprofen 2020-0 2020- No [id number] 800mg Univers (IBU) 01-05 100 ity of tablet 800 21:00: 21:00 [place] mg 00 :00 [facility] ibuprofen 2020- No [id number] 800mg 800 mg, Univers (IBU) 01-05- 100 Oral, ity of tablet 800 21:00: 21:00 ONCE, 1 [place] as mg 00 :00 dose, [facility] 01/05/21 at Branch 1600, Routine levonorgest 2020- No [id number] 1{devic 1 Device, Univers reL 01-05 100 e} Intrauteri ity of (LILETTA) 21:00: 21:00 [place] :[place] 1 dose, [facility] [employer] [facility] 01/05/21 at 1600, Routine levonorgest 2020- No [id number] 1{devic Univers reL 01-05 100 e} ity of (LILETTA) 21:00: 21:00 [place] IUD 1 00 :00 [employer] Branch ibuprofen 2020- No [id number] 800mg Univers (IBU) 01-05- 100 ity of tablet 800 21:00: 21:00 [place] mg 00 :00 [facility] ibuprofen 2020- No [id number] 800mg 800 mg, Univers (IBU) 01-05 05- 100 Oral, ity of tablet 800 21:00: 21:00 ONCE, 1 [place] as mg 00 :00 dose, [facility] 01/05/21 at Branch 1600, Routine levonorgest 2020- No [id number] 1{devic 1 Device, Univers reL 01-05 100 e} Intrauteri ity of (LILETTA) 21:00: 21:00 [place] 1 [place] :00 1 dose, [facility] [employer] [facility] 01/05/21 at 1600, Routine levonorgest 2020- No [id number] 1{devic Univers reL 01-05 05- 100 e} ity of (LILETTA) 21:00: 21:00 [place] IUD 1 00 :00 [employer] [facility] Branch ibuprofen 2020- No [id number] 800mg Univers (IBU) 01-05 05- 100 ity of tablet 800 21:00: 21:00 [place] mg 00 :00 Medical [place] ibuprofen 2020-2020- No [id number] 800mg 800 mg, Univers (IBU) 01-05 100 Oral, ity of tablet 800 21:00: 21:00 ONCE, 1 [place] as mg 00 :00 dose, Wed Medical 01/05/21 at Branch 1600, Routine levonorgest 2020- No [id number] 1{devic 1 Device, Univers reL 01-05 100 e} Intrauteri ity of (LILETTA) 21:00: 21:00 [place]CE[place] 1 [place] :00 1 dose, [employer] [employer] [place] 01/05/21 at 1600, Routine levonorgest 2026- No by [facility] 01-05 Intrauteri ity of (LILETTA 00:00: 04:59 ne route. [place] as INTRAUTERIN 00 :00 Medical E) Branch levonorgest 2026- No by [facility] 01-05 Intrauteri ity of (LILETTA 00:00: 04:59 ne route. [place] as INTRAUTERIN 00 :00 Medical E) Branch levonorgest 2026- No by [facility] 01-05 Intrauteri ity of (LILETTA 00:00: 04:59 ne route. [place] as INTRAUTERIN 00 :00 Medical E) Branch levonorgest 2026- No by [facility] 01-05 Intrauteri ity of (LILETTA 00:00: 04:59 ne route. [place] as INTRAUTERIN 00 :00 Medical E) Branch levonorgest 2026- No by [facility] 01-05 Intrauteri ity of (LILETTA 00:00: 04:59 ne route. [place] as INTRAUTERIN 00 :00 Medical E) Branch levonorgest 2026- No by [facility] 01-05 Intrauteri ity of (LILETTA 00:00: 04:59 ne route. [place] as INTRAUTERIN 00 :00 Medical E) Branch levonorgest 2026- No by [facility] 01-05 Intrauteri ity of (LILETTA 00:00: 04:59 [...] 00:00: 00 No known No [facility] Univers medications [facility] No known No Univers medications [facility] No known No Univers medications [facility] Immunizations Ordered Filled Immunization Date Status Comments Sour e Immunization Name Name SARS-COV-2 COVID-19 2020-12-02 Completed Unive rsity of PFIZER VACCINE 00:00:00 [facility] SARS-COV-2 COVID-19 2020-12-02 Completed Unive rsity of PFIZER VACCINE 00:00:00 [facility] SARS-COV-2 COVID-19 2020-12-02 Completed Unive rsity of PFIZER VACCINE 00:00:00 [facility] SARS-COV-2 COVID-19 2020-12-02 Completed Unive rsity of PFIZER VACCINE 00:00:00 [facility] SARS-COV-2 COVID-19 2020-12-02 Completed Unive rsity of PFIZER VACCINE 00:00:00 [facility] SARS-COV-2 COVID-19 2020-12-02 Completed Unive rsity of PFIZER VACCINE 00:00:00 [facility] SARS-COV-2 COVID-19 2020-12-02 Completed Unive rsity of PFIZER VACCINE 00:00:00 [facility] SARS-COV-2 COVID-19 2020-12-02 Completed Unive rsity of PFIZER VACCINE 00:00:00 [facility] SARS-COV-2 COVID-19 2020-12-02 Completed Unive rsity of PFIZER VACCINE 00:00:00 [facility] SARS-COV-2 COVID-19 2020-12-02 Completed Unive rsity of PFIZER VACCINE 00:00:00 [facility] Branch SARS-COV-2 COVID-19 2020-12-02 Completed Unive rsity of PFIZER VACCINE 00:00:00 [facility] SARS-COV-2 COVID-19 2020-12-02 Completed Unive rsity of PFIZER VACCINE 00:00:00 [facility] Branch SARS-COV-2 COVID-19 2020-12-02 Completed Unive rsity of PFIZER VACCINE 00:00:00 [facility] SARS-COV-2 COVID-19 2020-12-02 Completed Unive rsity of PFIZER VACCINE 00:00:00 [facility] Branch SARS-COV-2 COVID-19 2020-12-02 Completed Unive rsity of PFIZER VACCINE 00:00:00 [facility] SARS-COV-2 COVID-19 2020-11-09 Completed Unive rsity of PFIZER VACCINE 00:00:00 [facility] SARS-COV-2 COVID-19 2020-11-09 Completed Unive rsity of PFIZER VACCINE 00:00:00 [facility] SARS-COV-2 COVID-19 2020-11-09 Completed Unive rsity of PFIZER VACCINE 00:00:00 [facility] SARS-COV-2 COVID-19 2020-11-09 Completed Unive rsity of PFIZER VACCINE 00:00:00 [facility] SARS-COV-2 COVID-19 2020-11-09 Completed Unive rsity of PFIZER VACCINE 00:00:00 [facility] Branch SARS-COV-2 COVID-19 2020-11-09 Completed Unive rsity of PFIZER VACCINE 00:00:00 [facility] SARS-COV-2 COVID-19 2020-11-09 Completed Unive rsity of PFIZER VACCINE 00:00:00 [facility] SARS-COV-2 COVID-19 2020-11-09 Completed Unive rsity of PFIZER VACCINE 00:00:00 [facility] SARS-COV-2 COVID-19 2020-11-09 Completed Unive rsity of PFIZER VACCINE 00:00:00 [facility] SARS-COV-2 COVID-19 2020-11-09 Completed Unive rsity of PFIZER VACCINE 00:00:00 [facility] SARS-COV-2 COVID-19 2020-11-09 Completed Unive rsity of PFIZER VACCINE 00:00:00 [facility] SARS-COV-2 COVID-19 2020-11-09 Completed Unive rsity of PFIZER VACCINE 00:00:00 [facility] SARS-COV-2 COVID-19 2020-11-09 Completed Unive rsity of PFIZER VACCINE 00:00:00 [facility] SARS-COV-2 COVID-19 2020-11-09 Completed Unive rsity of PFIZER VACCINE 00:00:00 [facility] SARS-COV-2 COVID-19 2020-11-09 Completed Unive rsity of PFIZER VACCINE 00:00:00 [facility] Vital Signs Vital Name Observation Time Observation Value Comments Source Heart rate 2021-07-27 21:30:00 62 /min [facility] Respiratory rate 2021-07-27 21:30:00 22 /min [facility] Oxygen saturation in 2021-07-27 21:30:00 95 /min [facility] Arterial blood by [facility] Pulse oximetry Branch Systolic blood 2021-07-27 21:25:00 137 mm[Hg] Univer sity of pressure [facility] Diastolic blood 2021-07-27 21:25:00 77 mm[Hg] Unive rsity of pressure [facility] Body temperature 2021-07-27 18:35:24 36.78 Cele Univ ersity of [facility] Body height 2021-07-27 18:02:00 147.3 cm [facility] Body weight 2021-07-27 18:02:00 124.739 kg [facility] BMI 2021-07-27 18:02:00 57.48 kg/m2 [facility] Systolic blood 2021-06-25 05:00:00 134 mm[Hg] Univer sity of pressure [facility] Diastolic blood 2021-06-25 05:00:00 60 mm[Hg] Unive rsity of pressure [facility] Heart rate 2021-06-25 05:00:00 78 /min [facility] Respiratory rate 2021-06-25 05:00:00 27 /min Univ ersity of [facility] Oxygen saturation in 2021-06-25 05:00:00 97 /min University of Arterial blood by [facility] Pulse oximetry Branch Body temperature 2021-06-25 04:16:00 36.94 Cele Univ ersity of [facility] Body height 2021-06-25 04:16:00 147.3 cm [facility] Body weight 2021-06-25 04:16:00 127.007 kg [facility] BMI 2021-06-25 04:16:00 58.52 kg/m2 Universi ty of [facility] Systolic blood 2021-02-17 19:29:00 124 mm[Hg] Univer sity of pressure [facility] Diastolic blood 2021-02-17 19:29:00 88 mm[Hg] Unive rsity of pressure [facility] Heart rate 2021-02-17 19:29:00 89 /min Universi ty of [facility] Respiratory rate 2021-02-17 19:29:00 18 /min Univ ersity of [facility] Body weight 2021-02-17 19:29:00 126.281 kg [facility] BMI 2021-02-17 19:29:00 56.23 kg/m2 [facility] Systolic blood 2021-01-05 19:16:00 132 mm[Hg] Univer sity of pressure [facility] Diastolic blood 2021-01-05 19:16:00 88 mm[Hg] Unive rsity of pressure [facility] Heart rate 2021-01-05 19:16:00 89 /min Universi ty of [facility] Body temperature 2021-01-05 19:16:00 37.28 Cele Univ ersity of [facility] Respiratory rate 2021-01-05 19:16:00 18 /min Univ ersity of [facility] Body height 2021-01-05 19:16:00 149.9 cm [facility] Body weight 2021-01-05 19:16:00 125.51 kg [facility] BMI 2021-01-05 19:16:00 55.89 kg/m2 Universi ty of [facility] Systolic blood 2020-12-07 19:42:00 124 mm[Hg] Univer sity of pressure [facility] Diastolic blood 2020-12-07 19:42:00 86 mm[Hg] Unive rsity of pressure [facility] Heart rate 2020-12-07 19:42:00 89 /min [facility] Respiratory rate 2020-12-07 19:42:00 19 /min [facility] Body height 2020-12-07 19:42:00 152.4 cm [facility] Body weight 2020-12-07 19:42:00 127.551 kg [facility] BMI 2020-12-07 19:42:00 54.92 kg/m2 [facility] BP Systolic 2022-08-30 11:27:00 120 mm[Hg] BP [...] TROPONIN I 2021-07-27 20:28:00 Yamil Phoenix Carmen [facility] D-DIMER 2021-07-27 20:27:00 Yamil Phoenix [facility] XR CHEST 1 VW 2021-07-27 19:38:35 Yamil Phoenix [facility] POCT TEST 2021-07-27 18:28:00 Yamil Phoenix [facility] URINALYSIS 2021-07-27 18:26:00 Lizett, [facility] MAGNESIUM 2021-07-27 18:06:00 [facility] TROPONIN I 2021-07-27 18:06:00 Lizett, [facility] COMP. METABOLIC PANEL 2021-07-27 18:06:00 Lizett, K Carmen [facility] ([id number]) [facility] CBC WITH DIFF 2021-07-27 18:06:00 [facility] CT HEAD WO CONTRAST 2021-06-25 05:12:41 Yoon Page [facility] NOTICE OF PRIVACY 2021-06-25 04:02:52 Doctor Unassigned, No [facility] CONSENT/REFUSAL FOR 2021-06-25 04:01:22 Doctor Unassigned, No [facility] DIAGNOSIS AND [facility] TREATMENT DISCLOSURE AND 2021-01-06 05:01:00 Doctor Unassigned, No [facility] CONSENT, MEDICAL AND Name Medical [facility] SURGICAL PROCEDURES POCT TEST 2021-01-05 19:26:00 Aracely Villanueva [facility] POCT TEST 2020-12-07 20:47:00 Fern Moct[facility] ASSIGNMENT OF BENEFITS 2020-12-07 19:26:29 Doctor Unassigned, No [facility] Plan of Care Planned Activity Planned Date Details Comments Source Goal Plan of Care Note [code = 53998-9] Goal Plan of Care Note [code = 14812-0] Goal Plan of Care Note [code = 39205-7] Goal Plan of Care Note [code = 95516-6] Goal Plan of Care Note [code = 87050-7] Goal Plan of Care Note [code = 30693-0] Goal Plan of Care Note [code = 25924-9] Goal Plan of Care Note [code = 46037-8] Goal Plan of Care Note [code = 23486-0] Goal Plan of Care Note [code = 12686-9] Goal Plan of Care Note [code = 46822-1] Goal Plan of Care Note [code = 14440-3] Goal Plan of Care Note [code = 24937-4] Goal Plan of Care Note [code = 13031-5] Goal Plan of Care Note [code = 17638-5] Goal Plan of Care Note [code = 16939-3] Goal Plan of Care Note [code = 48922-0] Goal Plan of Care Note [code = 59604-0] Goal Plan of Care Note [code = 37646-1] Goal Plan of Care Note [code = 14002-8] Goal Plan of Care Note [code = 88352-7] Goal Plan of Care Note [code = 29819-7] Goal Plan of Care Note [code = 60880-2] Goal Plan of Care Note [code = 58366-8] Goal Plan of Care Note [code = 88161-4] Goal Plan of Care Note [code = 66083-1] Goal Plan of Care Note [code = 62028-1] Goal Plan of Care Note [code = 99669-6] Goal Plan of Care Note [code = 48463-2] Goal Plan of Care Note [code = 97903-3] Goal Plan of Care Note [code = 26736-2] Goal Plan of Care Note [code = 12165-3] Goal Plan of Care Note [code = 47356-5] Goal Plan of Care Note [code = 90671-4] Goal Plan of Care Note [code = 10978-9] Goal Plan of Care Note [code = 96367-3] Goal Plan of Care Note [code = 29165-8] Goal Plan of Care Note [code = 46272-2] Goal Plan of Care Note [code = 55074-4] Goal Plan of Care Note [code = 28344-7] Goal Plan of Care Note [code = 13087-1] Goal Plan of Care Note [code = 23588-1] Goal Plan of Care Note [code = 29552-5] Goal Plan of Care Note [code = 63385-4] Goal Plan of Care Note [code = 48277-1] Goal Plan of Care Note [code = 58838-3] Goal Plan of Care Note [code = 76722-2] Goal Plan of Care Note [code = 19037-3] Goal Plan of Care Note [code = 08041-4] Goal Plan of Care Note [code = 17003-0] Goal Plan of Care Note [code = 56085-9] Goal Plan of Care Note [code = 73647-9] Goal Plan of Care Note [code = 58942-9] Goal Plan of Care Note [code = 91650-2] Goal Plan of Care Note [code = 65421-9] Goal Plan of Care Note [code = 12509-8] Goal Plan of Care Note [code = 91936-2] Goal Plan of Care Note [code = 57183-7] Goal Plan of Care Note [code = 15014-9] Goal Plan of Care Note [code = 83293-2] Goal Plan of Care Note [code = 30451-0] Goal Plan of Care Note [code = 25072-8] Goal Plan of Care Note [code = 12711-3] Goal Plan of Care Note [code = 31204-7] Goal Plan of Care Note [code = 01669-3] Goal Plan of Care Note [code = 68659-0] Goal Plan of Care Note [code = 24435-7] Goal Plan of Care Note [code = 55574-8] Goal Plan of Care Note [code = 73278-7] Goal Plan of Care Note [code = 38006-6] Goal Plan of Care Note [code = 80814-1] Goal Plan of Care Note [code = 39304-0] Goal Plan of Care Note [code = 47545-1] Goal Plan of Care Note [code = 62086-5] Goal Plan of Care Note [code = 33644-0] Goal Plan of Care Note [code = 40054-4] Goal Plan of Care Note [code = 40643-4] Goal Plan of Care Note [code = 03247-0] Goal Plan of Care Note [code = 52357-7] Goal Plan of Care Note [code = 12591-1] Goal Plan of Care Note [code = 41368-6] Goal Plan of Care Note [code = 70117-1] Goal Plan of Care Note [code = 99773-9] Goal Plan of Care Note [code = 94177-3] Goal Plan of Care Note [code = 45876-2] Goal Plan of Care Note [code = 89788-9] Goal Plan of Care Note [code = 79029-6] Goal Plan of Care Note [code = 89078-9] Goal Plan of Care Note [code = 40397-8] Goal Plan of Care Note [code = 58449-9] Goal Plan of Care Note [code = 47066-5] Goal Plan of Care Note [code = 21331-3] Goal Plan of Care Note [code = 80249-7] Goal Plan of Care Note [code = 28208-6] Goal Plan of Care Note [code = 49191-5] Goal Plan of Care Note [code = 08469-2] Goal Plan of Care Note [code = 67483-2] Goal Plan of Care Note [code = 73489-9] Goal Plan of Care Note [code = 80594-9] Goal Plan of Care Note [code = 15034-9] Goal Plan of Care Note [code = 07776-5] Goal Plan of Care Note [code = 63905-5] Goal Plan of Care Note [code = 38589-6] Goal Plan of Care Note [code = 50419-5] Goal Plan of Care Note [code = 94752-8] Goal Plan of Care Note [code = 13953-7] Goal Plan of Care Note [code = 30140-8] Goal Plan of Care Note [code = 01138-4] Goal Plan of Care Note [code = 69545-5] Goal Plan of Care Note [code = 30880-4] Goal Plan of Care Note [code = 88503-2] Goal Plan of Care Note [code = 36739-5] Goal Plan of Care Note [code = 73345-3] Goal Plan of Care Note [code = 84242-8] Goal Plan of Care Note [code = 69967-1] Goal Plan of Care Note [code = 15870-2] Goal Plan of Care Note [code = 92920-3] Goal Plan of Care Note [code = 29927-1] Goal Plan of Care Note [code = 46489-6] Goal Plan of Care Note [code = 68609-8] Goal Plan of Care Note [code = 23502-3] Goal Plan of Care Note [code = 33641-0] Goal Plan of Care Note [code = 35033-4] Goal Plan of Care Note [code = 85376-8] Goal Plan of Care Note [code = 56530-2] Goal Plan of Care Note [code = 29752-3] Goal Plan of Care Note [code = 21374-9] Goal Plan of Care Note [code = 54159-6] Goal Plan of Care Note [code = 73530-4] Goal Plan of Care Note [code = 16101-7] Goal Plan of Care Note [code = 23343-3] Goal Plan of Care Note [code = 33526-9] Goal Plan of Care Note [code = 13458-9] Goal Plan of Care Note [code = 62275-1] Goal Plan of Care Note [code = 66816-9] Goal Plan of Care Note [code = 24766-4] Goal Plan of Care Note [code = 49692-7] Goal Plan of Care Note [code = 78214-4] Goal Plan of Care Note [code = 21864-5] Goal Plan of Care Note [code = 95162-8] Goal Plan of Care Note [code = 92570-3] Goal Plan of Care Note [code = 18114-4] Goal Plan of Care Note [code = 46994-7] Goal Plan of Care Note [code = 68818-5] Goal Plan of Care Note [code = 55186-7] Goal Plan of Care Note [code = 37241-4] Goal Plan of Care Note [code = 95428-7] Goal Plan of Care Note [code = 80387-0] Goal Plan of Care Note [code = 21696-6] Goal Plan of Care Note [code = 24510-3] Goal Plan of Care Note [code = 06396-9] Goal Plan of Care Note [code = 60905-9] Goal Plan of Care Note [code = 46909-5] Goal Plan of Care Note [code = 57153-8] Goal Plan of Care Note [code = 12093-5] Goal Plan of Care Note [code = 71141-7] Goal Plan of Care Note [code = 73563-5] Encounters Start End Encounter Admission Attending Care Care Encounter Source Date/Time Date/Time Type Type Clinicians Facility Department ID 2022-12-23 2022-12-23 Outpatient AL MELENDEZ [id number] [facility] 09:11:36 09:11:36 [id number] F Rhett 2022-12-11 2022-12-11 Outpatient SFA SFA [id number] [place] 16:09:25 16:09:25 [id number] F Rhett 2022-12-05 2022-12-05 Outpatient SFA SFA [id number]- Georgi 10:53:45 10:53:45 [id number] F Culbertson 2022-11-28 2022-11-28 Outpatient SFA SFA [id number]- Georgi 17:46:35 17:46:35 [id number] F Rhett 2022-11-20 2022-11-20 Telephone FREDO Diamond [id number] [facility] 00:00:00 00:00:00 [facility] [id number] i ty of CLINICS [id number] [place] haines [id number] [facility] piedad 113 Branch 2022-11-17 2022-11-17 Outpatient SFA SFA [id number]- Georgi 11:28:22 11:28:22 [id number] F Culbertson 2022-11-08 2022-11-08 Outpatient SFA SFA Georgi 13:56:45 13:56:45 [id number] F Culbertson 2022-11-01 2022-11-01 Outpatient SFA SFA [id number]- Georgi 11:26:47 11:26:47 [id number] F Culbertson 2022-10-31 2022-10-31 Outpatient SFA SFA [id number]- Georgi 13:04:58 13:04:58 [id number] F Culbertson 2022-10-20 2022-10-20 Outpatient SFA SFA Georgi 11:25:26 11:25:26 [id number] F Culbertson 2022-10-19 2022-10-19 Outpatient SFA SFA [id number] [place]i 14:02:23 14:02:23 [id number] F Culbertson 2022-10-09 2022-10-09 Outpatient SFA SFA [id number]- Georgi 10:08:28 10:08:28 [id number] F Culbertson 2022-09-21 2022-09-21 Outpatient SFA SFA [id number]- Georgi 11:54:36 11:54:36 [id number] F Culbertson 2022-09-15 2022-09-15 Outpatient SFA SFA [id number]- Georgi 11:33:15 11:33:15 [id number] F Culbertson 2022-09-08 2022-09-08 Outpatient SFA SFA [id number]- Georgi 10:49:58 10:49:58 [id number] F Culbertson 2022-09-07 2022-09-07 Outpatient SFA SFA [id number]- Georgi 15:51:56 15:51:56 [id number] F Culbertson 2022-09-05 2022-09-05 Outpatient SFA SFA [id number]- Georgi 10:47:25 10:47:25 [id number] F Culbertson 2022-09-04 2022-09-04 Outpatient SFA SFA [id number]- Georgi 11:21:25 11:21:25 [id number] F Culbertson 2022-08-30 2022-08-30 Outpatient SFA SFA [id number]- Georgi 15:33:51 15:33:51 [id number] F Culbertson 2022-08-30 2022-08-30 Outpatient [id number] 00:00:00 00:00:00 Visit [id number] 2022-08-25 2022-08-25 Outpatient SFA SFA [id number]- Georgi 10:13:30 10:13:30 [id number] [facility] 2022-08-11 2022-08-11 Outpatient SFA SFA [id number]- Georgi 09:20:54 09:20:54 [id number] [facility] 2022-07-28 2022-07-28 Outpatient SFA SFA [id number]- Georgi 11:30:57 11:30:57 [id number] [facility] 2022-07-14 2022-07-14 Outpatient SFA SFA [id number]- Georgi 11:31:56 11:31:56 [facility] 2022-06-29 2022-06-29 Outpatient SFA SFA [id number]- Georgi 15:28:07 15:28:07 [id number] [facility] 2022-06-29 2022-06-29 Outpatient [id number] 00:00:00 00:00:00 Visit [id number] 2022-06-16 2022-06-16 Outpatient SFA SFA [id number]- Georgi 11:17:33 11:17:33 [id number] [facility] 2022-06-15 2022-06-15 Outpatient SFA SFA [id number]- Georgi 09:41:11 09:41:11 [id number] F Rhett 2022-06-08 2022-06-08 Outpatient 54uvauh1- [id number] bfdee4-1 00:00:00 00:00:00 Visit 1155-48b2 155-48b2-b -ji8f-pt9 q6n-zu2f3e t5c0504ed 7966fb 2022-04-27 2022-04-27 Outpatient 8cdsy6go- [id number] 1b pwh6go-9 00:00:00 00:00:00 Visit 21y9-80z4 9c2-66q8-a -ui37-35y z04-45vr49 k13su5q0o ab5d1b 2022-03-02 2022-03-02 Outpatient [id number]- [id number] d6 z35143-c 00:00:00 00:00:00 Visit to67-8b66 m22-1e75-5 -926c-c29 26c-c29a66 s1807v985 90f646 2021-07-27 2021-07-27 Emergency X LIZETT, K [facility] ERT [id number] Univers 11:56:00 15:42:[address] [facility] 2021-07-27 2021-07-27 Emergency Lizett, K [facility] [id number] Univers 11:56:00 15:42:00 Carmen TAPIA 350.1.13.10 i ty [facility] 4.2.7.2.686 [facility] [id number] [address] 2021-06-24 2021-06-24 Emergency X [facility], [facility] ERT [id number] Univers 22:06:00 23:54:[address] [facility] 2021-06-24 2021-06-24 Emergency Critical access hospital [id number] Univers 22:06:00 23:54:00 Yoon TAPIA 350.1.13.10 ity [facility] 4.2.7.2.686 [facility] [id number] [address] 2021-06-24 2021-06-24 Orders Doctor BELTRAN 1.2.840.114 [id number] Univers 00:00:00 00:00:00 Only Unassigned, MILTON 350.1.13.10 ity of [facility] 4.2.7.2.686 [place] [phone] [facility] [address] 2021-02-17 2021-02-17 Office Pgy2 UNIVERSIT 1.2.968.482 2011 1721 Univers 14:13:58 15:19:24 Visit Marques Mansfield Y HEALTH 350.1.13.10 [id number] [address] 2021-02-17 2021-02-17 Outpatient R [facility] [id number] Univers 14:00:00 14:00:00 ity of [facility] 2021-01-06 2021-01-06 Orders Doctor BELTRAN 1.2.840.114 [id number] Univers 00:00:00 00:00:00 Only Unassigned, MILTON 350.1.13.10 ity of [place] [facility] 4.2.7.2.686 [place] [id number] [address] 2021-01-05 2021-01-05 Office Pool, [facility] Resident UNIVERSIT 1.2.8 40.114 [id number] Univers 13:58:29 16:19:12 Visit Aracely Villanueva Y HEALTH 350.1.13.10 [place] [id number] [address] 2021-01-05 2021-01-05 Outpatient R [facility] [id number] Univers 14:15:00 14:15:[address] [facility] 2020-12-10 2020-12-10 Telephone Silvestre UNIVERSIT 1.2.840.11 [id number] Univers 00:00:00 00:00:00 [facility], Y HEALTH 350.1.13.10 i ty [place] [facility] [place] [phone] [address] 2020-12-07 2020-12-07 Office Pool, [facility] Resident UNIVERSIT 1.2.8 40.114 [id number] Univers 14:35:42 16:30:20 Visit Jeanette Henley [facility] 350.1.13.10 ity of CLINICS 4.2.7.2.686 Mynor haines [id number] [facility] [address] 2020-12-07 2020-12-07 Outpatient R ANDRES [facility] [id number] Univers 14:30:00 14:30:[address] [facility] 2020-12-07 2020-12-07 Orders Doctor BELTRAN 1.2.840.114 [id number] Univers 00:00:00 00:00:00 Only Unassigned, MILTON 350.1.13.10 [place]y [place] [facility] 4.2.7.2.686 [place] [id number] [place] [address] [address] 2020-12-02 2020-12-02 Outpatient Katheryn GABRIEL [facility] [id number] Univers 14:05:00 14:05:00 BEBE ity of [facility] Results Test Description Test Time Test Comments Results Result Comments Source COMPREHENSIVE METABOLIC PANEL 2022-09-09 07:39:28 Test Item Value Reference Range Interpretation Comme nts GLUCOSE (test code = 2217) 112 MG/DL 70-99 H BUN (test code = 2208) 14 MG/DL 6-20 CREATININE (test code = 0.79 MG/DL 0.60-1.30 2213) eGFR (2020 CKD-EPI) (test 101 ML/MIN/1.73 >60 code = 69386) CALC BUN/CREAT (test code = 18 RATIO -2234) SODIUM (test code = 223) 140 MEQ/L 133-146 POTASSIUM (test code = 3.8 MEQ/L 3.5-5.4 2227) CHLORIDE (test code = 2215) 101 MEQ/L 95-107 CARBON DIOXIDE (test code = 24 MEQ/L -31 2205) CALCIUM (test code = 2209) 9.7 [...] SS OTHERWISE INDICATED, ALL TESTING PER [facility] [place] [address] [place] [address] 7 8754 LABORATORY DIRE CTOR: Edward LONGIA NUMBER [id number] [place]. [id number] HEMOGLOBIN [id number] 04:57:47 Test Item Value Reference Range Interpretation Comments HEMOGLOBIN A1c (test code = 64660) 6.1 % 4.2-5.6 H TSH, THIRD [id number] 03:25:48 Test Item Value Reference Range Interpretation Comments TSH, THIRD 2.310 UIU/ML 0.400-4.100 UNLESS OTHERWI SE GENERATION (test INDICATED, ALL TESTING code = 2821) PERFORMED [facility] PATHOLOGY [facility]ATORIES, I [address] [address] [facility] DIRECTOR: EDVIN BENOSN M.D. CLIA NUMBER [id number] CAP ACCREDITATION N O. [id number] TSH, THIRD [id number] 00:00:00 Test Item Value Reference Range Interpretation Comments TSH, THIRD GENERATION (test code 2.310 UIU/ML = 2821) TSH, THIRD [id number] 00:00:00 Test Item Value Reference Range Interpretation Comments TSH, THIRD GENERATION (test code 2.310 UIU/ML = 2821) TSH, THIRD [id number] 00:00:00 Test Item Value Reference Range Interpretation Comments TSH, THIRD GENERATION (test code 2.310 UIU/ML = 2821) [id number] 00:00:00 Test Item Value Reference Range Interpretation Comments 17-HYDROXYPROGESTERONE (test code = 45 ng/dL 4304) [id number] 00:00:00 Test Item Value Reference Range Interpretation Comments 17-HYDROXYPROGESTERONE (test code = 45 ng/dL 4304) [id number] 00:00:00 Test Item Value Reference Range Interpretation Comments 17-HYDROXYPROGESTERONE (test code = 45 ng/dL 4304) [id number] 00:00:00 Test Item Value Reference Range Interpretation Comments 17-HYDROXYPROGESTERONE (test code = 45 ng/dL 4304) FSH + LH [id number] 00:00:00 Test Item Value Reference Range Interpretation Comments FOLLICLE STIM HORMONE (test code = 4.3 IU/L 2700) LUTEINIZING HORMONE (test code = 15.6 IU/L 2776) FSH + LH [id number] 00:00:00 Test Item Value Reference Range Interpretation Comments FOLLICLE STIM HORMONE (test code = 4.3 IU/L 2700) LUTEINIZING HORMONE (test code = 15.6 IU/L 2776) [id number] 00:00:00 Test Item Value Reference Range Interpretation Comments PROLACTIN (test code = 2800) 17.7 NG/ML [id number] 00:00:00 Test Item Value Reference Range Interpretation Comments PROLACTIN (test code = 2800) 17.7 NG/ML TSH, THIRD [id number] 00:00:00 Test Item Value Reference Range Interpretation Comments TSH, THIRD GENERATION (test code 1.790 UIU/ML = 2821) TSH, THIRD [id number] 00:00:00 Test Item Value Reference Range Interpretation Comments TSH, THIRD GENERATION (test code 1.790 UIU/ML = 2821) TSH, THIRD [id number] 00:00:00 Test Item Value Reference Range Interpretation Comments TSH, THIRD GENERATION (test code 1.790 UIU/ML = 2821) FSH + LH [id number] 00:00:00 Test Item Value Reference Range Interpretation Comments FOLLICLE STIM HORMONE (test code = 4.3 IU/L 2700) LUTEINIZING HORMONE (test code = 15.6 IU/L 2776) FSH + LH [id number] 00:00:00 Test Item Value Reference Range Interpretation Comments FOLLICLE STIM HORMONE (test code = 4.3 IU/L 2700) LUTEINIZING HORMONE (test code = 15.6 IU/L 2776) [id number] 00:00:00 Test Item Value Reference Range Interpretation Comments PROLACTIN (test code = 2800) 17.7 NG/ML [id number] 00:00:00 Test Item Value Reference Range Interpretation Comments PROLACTIN (test code = 2800) 17.7 NG/ML TSH, THIRD [id number] 00:00:00 Test Item Value Reference Range Interpretation Comments TSH, THIRD GENERATION (test code 1.790 UIU/ML = 2821) TSH, THIRD [id number] 00:00:00 Test Item Value Reference Range Interpretation Comments TSH, THIRD GENERATION (test code 1.790 UIU/ML = 2821) TSH, THIRD [id number] 00:00:00 Test Item Value Reference Range Interpretation Comments TSH, THIRD GENERATION (test code 1.790 UIU/ML = 2821) TSH, THIRD [id number] 04:06:28 Test Item Value Reference Range Interpretation Comments TSH, THIRD 4.000 UIU/ML 0.400-4.100 UNLESS OTHERWI SE GENERATION (test INDICATED, ALL TESTING code = 2821) PERFORMED [facility], [facility] [address] [place] [id number] [place] [address] DIRECTOR: EDVIN BENSON M.D. CLIA NUMBER [id number] [facility] ACCREDITATION N O. [id number] TSH, THIRD [id number] 00:00:00 Test Item Value Reference Range Interpretation Comments TSH, THIRD GENERATION (test code 4.000 UIU/ML = 2821) TSH, THIRD [id number] 00:00:00 Test Item Value Reference Range Interpretation Comments TSH, THIRD GENERATION (test code 4.000 UIU/ML = 2821) TSH, THIRD [id number] 00:00:00 Test Item Value Reference Range Interpretation Comments TSH, THIRD GENERATION (test code 4.000 UIU/ML = 2821) TSH, THIRD [id number] 00:00:00 Test Item Value Reference Range Interpretation Comments TSH, THIRD GENERATION (test code 4.000 UIU/ML = 2821) TSH, THIRD [id number] 00:00:00 Test Item Value Reference Range Interpretation Comments TSH, THIRD GENERATION (test code 4.000 UIU/ML = 2821) TSH, THIRD [id number] 00:00:00 Test Item Value Reference Range Interpretation Comments TSH, THIRD GENERATION (test code 4.000 UIU/ML = 2821) TSH, THIRD [id number] 00:00:00 Test Item Value Reference Range Interpretation Comments TSH, THIRD GENERATION (test code 4.000 UIU/ML = 2821) TSH, THIRD [id number] 00:00:00 Test Item Value Reference Range Interpretation Comments TSH, THIRD GENERATION (test code 4.000 UIU/ML = 2821) TSH, THIRD [id number] 00:00:00 Test Item Value Reference Range Interpretation Comments TSH, THIRD GENERATION (test code 4.000 UIU/ML = 2821) TSH, THIRD [id number] 09:09:54 Test Item Value Reference Range Interpretation Comments TSH, THIRD 9.840 UIU/ML 0.400-4.100 H UNLESS OTHERWI SE GENERATION (test INDICATED, ALL TESTING code = 2821) PERFORMED [facility] PATHOLOGY [facility], [id number] [place] [address] DIRECTOR: EDVIN BENSON M.D. CLIA NUMBER [id number] [facility] ACCREDITATION N O. [id number] 00:00:00 Test Item Value Reference Range Interpretation Comments TSH, THIRD GENERATION (test code 9.840 UIU/ML = 2821) [id number] 00:00:00 Test Item Value Reference Range Interpretation Comments TSH, THIRD GENERATION (test code 9.840 UIU/ML = 2821) [id number] 00:00:00 Test Item Value Reference Range Interpretation Comments TSH, THIRD GENERATION (test code 9.840 UIU/ML = 2821) [id number] 00:00:00 Test Item Value Reference Range Interpretation Comments TSH, THIRD GENERATION (test code 9.840 UIU/ML = 2821) [id number] 00:00:00 Test Item Value Reference Range Interpretation Comments TSH, THIRD GENERATION (test code 9.840 UIU/ML = 2821) [id number] 00:00:00 Test Item Value Reference Range Interpretation Comments TSH, THIRD GENERATION (test code 9.840 UIU/ML = 2821) [id number] 00:00:00 Test Item Value Reference Range Interpretation Comments TSH, THIRD GENERATION (test code 9.840 UIU/ML = 2821) [id number] 00:00:00 Test Item Value Reference Range Interpretation Comments TSH, THIRD GENERATION (test code 9.840 UIU/ML = 2821) [id number] 00:00:00 Test Item Value Reference Range Interpretation Comments TSH, THIRD GENERATION (test code 9.840 UIU/ML = 2821) [id number] 00:00:00 Test Item Value Reference Range Interpretation Comments TSH, THIRD GENERATION (test code 9.840 UIU/ML = 2821) [id number] 00:00:00 Test Item Value Reference Range Interpretation Comments TSH, THIRD GENERATION (test code 9.840 UIU/ML = 2821) [id number] 00:00:00 Test Item Value Reference Range Interpretation Comments TSH, THIRD GENERATION (test code 9.840 UIU/ML = 2821) [id number] 00:00:00 Test Item Value Reference Range Interpretation Comments TSH, THIRD GENERATION (test code 9.840 UIU/ML = 2821) [id number] 00:00:00 Test Item Value Reference Range Interpretation Comments TSH, THIRD GENERATION (test code 9.840 UIU/ML = 2821) TSH, THIRD [id number] 05:03:02 Test Item Value Reference Range Interpretation Comments TSH, THIRD 7.050 UIU/ML 0.400-4.100 H UNLESS OTHERWI SE GENERATION (test INDICATED, ALL TESTING code = 2821) PERFORMED [facility], [facility]. [address] [place] [address] [facility] DIRECTOR: EDVIN BENSON M.D. CLIA NUMBER [id number] CAP ACCREDITATION N O. [id number] 00:00:00 Test Item Value Reference Range Interpretation Comments TSH, THIRD GENERATION (test code 7.050 UIU/ML = 2821) [id number] 00:00:00 Test Item Value Reference Range Interpretation Comments TSH, THIRD GENERATION (test code 7.050 UIU/ML = 2821) [id number] 00:00:00 Test Item Value Reference Range Interpretation Comments TSH, THIRD GENERATION (test code 7.050 UIU/ML = 2821) [id number] 00:00:00 Test Item Value Reference Range Interpretation Comments TSH, THIRD GENERATION (test code 7.050 UIU/ML = 2821) [id number] 00:00:00 Test Item Value Reference Range Interpretation Comments TSH, THIRD GENERATION (test code 7.050 UIU/ML = 2821) [id number] 00:00:00 Test Item Value Reference Range Interpretation Comments TSH, THIRD GENERATION (test code 7.050 UIU/ML = 2821) [id number] 00:00:00 Test Item Value Reference Range Interpretation Comments TSH, THIRD GENERATION (test code 7.050 UIU/ML = 2821) [id number] 00:00:00 Test Item Value Reference Range Interpretation Comments TSH, THIRD GENERATION (test code 7.050 UIU/ML = 2821) [id number] 00:00:00 Test Item Value Reference Range Interpretation Comments TSH, THIRD GENERATION (test code 7.050 UIU/ML = 2821) [id number] 00:00:00 Test Item Value Reference Range Interpretation Comments TSH, THIRD GENERATION (test code 7.050 UIU/ML = 2821) [id number] 00:00:00 Test Item Value Reference Range Interpretation Comments TSH, THIRD GENERATION (test code 7.050 UIU/ML = 2821) [id number] 00:00:00 Test Item Value Reference Range Interpretation Comments TSH, THIRD GENERATION (test code 7.050 UIU/ML = 2821) [id number] 00:00:00 Test Item Value Reference Range Interpretation Comments TSH, THIRD GENERATION (test code 7.050 UIU/ML = 2821) [id number] 00:00:00 Test Item Value Reference Range Interpretation Comments TSH, THIRD GENERATION (test code 7.050 UIU/ML = 2821) CBC W/AUTO DIFF WITH [id number] 03:06:39 Test Item Value Reference Range Interpretation [...] message] code = 1065) WBC'S The system [employer] generated this result transmitted ref erence range: [...] 0.00-0.11 UNLESS O THERWISE (test code = 11829) INDICATE D, ALL TESTING PERFORM [facility], [place]. [address] [facility] [place] [address] [facility] DIRECTOR: EDVIN BENSON M.D. CLIA NUMBER [id number] [facility] ACCREDITATION N O. [id number] CBC W/AUTO [id number] 00:00:00 Test Item Value Reference Range Interpretation [...] NUCLEATED RBCS (test code = 0.00 K/UL 63405) CBC W/AUTO [id number] 00:00:00 Test Item Value Reference Range Interpretation [...] NUCLEATED RBCS (test code = 0.00 K/UL 32554) CBC W/AUTO [id number] 00:00:00 Test Item Value Reference Range Interpretation [...] NUCLEATED RBCS (test code = 0.00 K/UL 56127) CBC W/AUTO [id number] 00:00:00 Test Item Value Reference Range Interpretation [...] NUCLEATED RBCS (test code = 0.00 K/UL 79284) CBC W/AUTO [id number] 00:00:00 Test Item Value Reference Range Interpretation [...] NUCLEATED RBCS (test code = 0.00 K/UL 14380) CBC W/AUTO [id number] 00:00:00 Test Item Value Reference Range Interpretation [...] NUCLEATED RBCS (test code = 0.00 K/UL 98003) CBC W/AUTO [id number] 00:00:00 Test Item Value Reference Range Interpretation [...] NUCLEATED RBCS (test code = 0.00 K/UL 13594) CBC W/AUTO [id number] 00:00:00 Test Item Value Reference Range Interpretation [...] NUCLEATED RBCS (test code = 0.00 K/UL 97468) CBC W/AUTO [id number] 00:00:00 Test Item Value Reference Range Interpretation [...] NUCLEATED RBCS (test code = 0.00 K/UL 60355) CBC W/AUTO [id number] 00:00:00 Test Item Value Reference Range Interpretation [...] NUCLEATED RBCS (test code = 0.00 K/UL 02036) CBC W/AUTO [id number] 00:00:00 Test Item Value Reference Range Interpretation [...] NUCLEATED RBCS (test code = 0.00 K/UL 43324) CBC W/AUTO [id number] 00:00:00 Test Item Value Reference Range Interpretation [...] NUCLEATED RBCS (test code = 0.00 K/UL 38666) CBC W/AUTO [id number] 00:00:00 Test Item Value Reference Range Interpretation [...] NUCLEATED RBCS (test code = 0.00 K/UL 12487) CBC W/AUTO [id number] 00:00:00 Test Item Value Reference Range Interpretation [...] NUCLEATED RBCS (test code = 0.00 K/UL 12843) CBC W/AUTO DIFF WITH [id number] 10:01:09 Test Item Value Reference Range Interpretation [...] RBCS TEST NOT 0.00-0.11 (test code = 83406) PERFORMED K/UL COMMENTS (test code = TEST NOT 1016) PERFORMED CBC W/AUTO [id number] 00:00:00 Test Item Value Reference Range Interpretation [...] RBCS (test TEST NOT PERFORMED code = 22664) K/UL COMMENTS (test code = TEST NOT PERFORMED 1016) CBC W/AUTO [id number] 00:00:00 Test Item Value Reference Range Interpretation [...] RBCS (test TEST NOT PERFORMED code = 46183) K/UL COMMENTS (test code = TEST NOT PERFORMED 1016) CBC W/AUTO [id number] 00:00:00 Test Item Value Reference Range Interpretation [...] RBCS (test TEST NOT PERFORMED code = 15373) K/UL COMMENTS (test code = TEST NOT PERFORMED 1016) CBC W/AUTO [id number] 00:00:00 Test Item Value Reference Range Interpretation [...] RBCS (test TEST NOT PERFORMED code = 02607) K/UL COMMENTS (test code = TEST NOT PERFORMED 1016) CBC W/AUTO [id number] 00:00:00 Test Item Value Reference Range Interpretation [...] RBCS (test TEST NOT PERFORMED code = 01434) K/UL COMMENTS (test code = TEST NOT PERFORMED 1016) CBC W/AUTO [id number] 00:00:00 Test Item Value Reference Range Interpretation [...] RBCS (test TEST NOT PERFORMED code = 11449) K/UL COMMENTS (test code = TEST NOT PERFORMED 1016) CBC W/AUTO [id number] 00:00:00 Test Item Value Reference Range Interpretation [...] RBCS (test TEST NOT PERFORMED code = 53070) K/UL COMMENTS (test code = TEST NOT PERFORMED 1016) CBC W/AUTO [id number] 00:00:00 Test Item Value Reference Range Interpretation [...] RBCS (test TEST NOT PERFORMED code = 35662) K/UL COMMENTS (test code = TEST NOT PERFORMED 1016) CBC W/AUTO [id number] 00:00:00 Test Item Value Reference Range Interpretation [...] RBCS (test TEST NOT PERFORMED code = 56689) K/UL COMMENTS (test code = TEST NOT PERFORMED 1016) CBC W/AUTO [id number] 00:00:00 Test Item Value Reference Range Interpretation [...] RBCS (test TEST NOT PERFORMED code = 69828) K/UL COMMENTS (test code = TEST NOT PERFORMED 1016) CBC W/AUTO [id number] 00:00:00 Test Item Value Reference Range Interpretation [...] RBCS (test TEST NOT PERFORMED code = 05172) K/UL COMMENTS (test code = TEST NOT PERFORMED 1016) CBC W/AUTO [id number] 00:00:00 Test Item Value Reference Range Interpretation [...] RBCS (test TEST NOT PERFORMED code = 69946) K/UL COMMENTS (test code = TEST NOT PERFORMED 1016) CBC W/AUTO [id number] 00:00:00 Test Item Value Reference Range Interpretation [...] RBCS (test TEST NOT PERFORMED code = 14622) K/UL COMMENTS (test code = TEST NOT PERFORMED 1016) CBC W/AUTO [id number] 00:00:00 Test Item Value Reference Range Interpretation [...] RBCS (test TEST NOT PERFORMED code = 89438) K/UL COMMENTS (test code = TEST NOT PERFORMED 1016) TSH, THIRD [id number] 06:29:33 Test Item Value Reference Range Interpretation Comments TSH, THIRD 7.090 UIU/ML 0.400-4.100 H UNLESS OTHERWI SE GENERATION (test INDICATED, ALL TESTING code = 2821) PERFORMED [facility], [facility]. [address] [place] [address] [facility] DIRECTOR: Edward LONGIA NUMBER [id number] [facility] ACCREDITATION N O. [id number] LIPID [id number] 04:58:53 Test Item Value Reference Range Interpretation [...] MOREINFORMATION , SEE CLIENT ANNOUNCE MENT AT [email or web address]-[email or web address] RISK RATIO LDL/HDL 3.57 RATIO <3.22 H (test code = 2238) COMPREHENSIVE METABOLIC [id number] 04:58:53 Test Item Value Reference Range Interpretation Comments GLUCOSE (test code = 85 MG/DL 70-99 2216) BUN (test code = 12 MG/DL 01-30) CREATININE (test 0.59 MG/DL 0.60-1.30 L code = 2214) eGFR (2020 CKD-EPI) 123 >60 (test code = 49906) ML/MIN/1.73 CALC BUN/CREAT (test 20 RATIO 02-07 code = 2235) SODIUM (test code = 141 MEQ/L 724-074 1221) POTASSIUM (test code 4.5 MEQ/L 3.5-5.4 = [...] PHOSPHATASE 89 U/L 40-114 (test code = 2203) AST (test code = 12 U/L 9-40 2217) ALT (test code = 16 U/L 5-40 2218) LIPID [id number] 00:00:00 Test Item Value Reference Range Interpretation Comments CHOLESTEROL (test code = 2210) 235 MG/DL TRIGLYCERIDES (test code = 2232) 127 MG/DL HDL CHOLESTEROL (test code = 2220) 46 MG/DL CALC LDL CHOL (test code = 2237) 164 MG/DL RISK RATIO LDL/HDL (test code = 3.57 RATIO 2238) LIPID [id number] 00:00:00 Test Item Value Reference Range Interpretation Comments CHOLESTEROL (test code = 2210) 235 MG/DL TRIGLYCERIDES (test code = 2232) 127 MG/DL HDL CHOLESTEROL (test code = 2220) 46 MG/DL CALC LDL CHOL (test code = 2237) 164 MG/DL RISK RATIO LDL/HDL (test code = 3.57 RATIO 2238) COMPREHENSIVE METABOLIC [id number] 00:00:00 Test Item Value Reference Range Interpretation Comments GLUCOSE (test code = 2217) 85 MG/DL BUN (test code = 2208) 12 MG/DL CREATININE (test code = 2214) 0.59 MG/DL eGFR (2020 CKD-EPI) (test 123 ML/MIN/1.73 code = 56475) CALC BUN/CREAT (test code = 20 RATIO [...] code = 2219) 16 U/L COMPREHENSIVE METABOLIC [id number] 00:00:00 Test Item Value Reference Range Interpretation Comments GLUCOSE (test code = 2217) 85 MG/DL BUN (test code = 2208) 12 MG/DL CREATININE (test code = 2214) 0.59 MG/DL eGFR (2020 CKD-EPI) (test 123 ML/MIN/1.73 code = 06488) CALC BUN/CREAT (test code = 20 RATIO [...] ALT (test code = 2219) 16 U/L [id number] 00:00:00 Test Item Value Reference Range Interpretation Comments TSH, THIRD GENERATION (test code 7.090 UIU/ML = 2821) [id number] 00:00:00 Test Item Value Reference Range Interpretation Comments TSH, THIRD GENERATION (test code 7.090 UIU/ML = 2821) [id number] 00:00:00 Test Item Value Reference Range Interpretation Comments TSH, THIRD GENERATION (test code 7.090 UIU/ML = 2821) LIPID [id number] 00:00:00 Test Item Value Reference Range Interpretation Comments CHOLESTEROL (test code = 2210) 235 MG/DL TRIGLYCERIDES (test code = 2232) 127 MG/DL HDL CHOLESTEROL (test code = 2220) 46 MG/DL CALC LDL CHOL (test code = 2237) 164 MG/DL RISK RATIO LDL/HDL (test code = 3.57 RATIO 2238) LIPID [id number] 00:00:00 Test Item Value Reference Range Interpretation Comments CHOLESTEROL (test code = 2210) 235 MG/DL TRIGLYCERIDES (test code = 2232) 127 MG/DL HDL CHOLESTEROL (test code = 2220) 46 MG/DL CALC LDL CHOL (test code = 2237) 164 MG/DL RISK RATIO LDL/HDL (test code = 3.57 RATIO 2238) COMPREHENSIVE METABOLIC [id number] 00:00:00 Test Item Value Reference Range Interpretation Comments GLUCOSE (test code = 2217) 85 MG/DL BUN (test code = 2208) 12 MG/DL CREATININE (test code = 2214) 0.59 MG/DL eGFR (2020 CKD-EPI) (test 123 ML/MIN/1.73 code = 94749) CALC BUN/CREAT (test code = 20 RATIO [...] A/G RATIO (test code = 1.8 RATIO 223) BILIRUBIN, TOTAL (test code = <0.2 MG/DL 2206) ALKALINE PHOSPHATASE (test 89 U/L code = 2204) AST (test code = 2218) 12 U/L ALT (test code = 2219) 16 U/L COMPREHENSIVE METABOLIC [id number] 00:00:00 Test Item Value Reference Range Interpretation Comments GLUCOSE (test code = 2217) 85 MG/DL BUN (test code = 2208) 12 MG/DL CREATININE (test code = 2214) 0.59 MG/DL eGFR (2020 CKD-EPI) (test 123 ML/MIN/1.73 code = 92501) CALC BUN/CREAT (test code = 20 RATIO [...] ALT (test code = 2219) 16 U/L [id number] 00:00:00 Test Item Value Reference Range Interpretation Comments TSH, THIRD GENERATION (test code 7.090 UIU/ML = 2821) [id number] 00:00:00 Test Item Value Reference Range Interpretation Comments TSH, THIRD GENERATION (test code 7.090 UIU/ML = 2821) [id number] 00:00:00 Test Item Value Reference Range Interpretation Comments TSH, THIRD GENERATION (test code 7.090 UIU/ML = 2821) LIPID [id number] 00:00:00 Test Item Value Reference Range Interpretation Comments CHOLESTEROL (test code = 2210) 235 MG/DL TRIGLYCERIDES (test code = 2232) 127 MG/DL HDL CHOLESTEROL (test code = 2220) 46 MG/DL CALC LDL CHOL (test code = 2237) 164 MG/DL RISK RATIO LDL/HDL (test code = 3.57 RATIO 2238) COMPREHENSIVE METABOLIC [id number] 00:00:00 Test Item Value Reference Range Interpretation Comments GLUCOSE (test code = 2217) 85 MG/DL BUN (test code = 2208) 12 MG/DL CREATININE (test code = 2214) 0.59 MG/DL eGFR (2020 CKD-EPI) (test 123 ML/MIN/1.73 code = 51356) CALC BUN/CREAT (test code = 20 RATIO [...] ALT (test code = 2219) 16 U/L [id number] 00:00:00 Test Item Value Reference Range Interpretation Comments TSH, THIRD GENERATION (test code 7.090 UIU/ML = 2821) [id number] 00:00:00 Test Item Value Reference Range Interpretation Comments TSH, THIRD GENERATION (test code 7.090 UIU/ML = 2821) LIPID [id number] 00:00:00 Test Item Value Reference Range Interpretation Comments CHOLESTEROL (test code = 2210) 235 MG/DL TRIGLYCERIDES (test code = 2232) 127 MG/DL HDL CHOLESTEROL (test code = 2220) 46 MG/DL CALC LDL CHOL (test code = 2237) 164 MG/DL RISK RATIO LDL/HDL (test code = 3.57 RATIO 2238) LIPID [id number] 00:00:00 Test Item Value Reference Range Interpretation Comments CHOLESTEROL (test code = 2210) 235 MG/DL TRIGLYCERIDES (test code = 2232) 127 MG/DL HDL CHOLESTEROL (test code = 2220) 46 MG/DL CALC LDL CHOL (test code = 2237) 164 MG/DL RISK RATIO LDL/HDL (test code = 3.57 RATIO 2238) COMPREHENSIVE METABOLIC [id number] 00:00:00 Test Item Value Reference Range Interpretation Comments GLUCOSE (test code = 2217) 85 MG/DL BUN (test code = 2208) 12 MG/DL CREATININE (test code = 2214) 0.59 MG/DL eGFR (2020 CKD-EPI) (test 123 ML/MIN/1.73 code = 09728) CALC BUN/CREAT (test code = 20 RATIO [...] BILIRUBIN, TOTAL (test code = <0.2 MG/DL 220) ALKALINE PHOSPHATASE (test 89 U/L code = 2204) AST (test code = 2218) 12 U/L ALT (test code = 2219) 16 U/L COMPREHENSIVE METABOLIC [id number] 00:00:00 Test Item Value Reference Range Interpretation Comments GLUCOSE (test code = 2217) 85 MG/DL BUN (test code = 2208) 12 MG/DL CREATININE (test code = 2214) 0.59 MG/DL eGFR (2020 CKD-EPI) (test 123 ML/MIN/1.73 code = 08822) CALC BUN/CREAT (test code = 20 RATIO [...] ALT (test code = 2219) 16 U/L [id number] 00:00:00 Test Item Value Reference Range Interpretation Comments TSH, THIRD GENERATION (test code 7.090 UIU/ML = 2821) [id number] 00:00:00 Test Item Value Reference Range Interpretation Comments TSH, THIRD GENERATION (test code 7.090 UIU/ML = 2821) [id number] 00:00:00 Test Item Value Reference Range Interpretation Comments TSH, THIRD GENERATION (test code 7.090 UIU/ML = 2821) LIPID [id number] 00:00:00 Test Item Value Reference Range Interpretation Comments CHOLESTEROL (test code = 2210) 235 MG/DL TRIGLYCERIDES (test code = 2232) 127 MG/DL HDL CHOLESTEROL (test code = 2220) 46 MG/DL CALC LDL CHOL (test code = 2237) 164 MG/DL RISK RATIO LDL/HDL (test code = 3.57 RATIO 2238) LIPID [id number] 00:00:00 Test Item Value Reference Range Interpretation Comments CHOLESTEROL (test code = 2210) 235 MG/DL TRIGLYCERIDES (test code = 2232) 127 MG/DL HDL CHOLESTEROL (test code = 2220) 46 MG/DL CALC LDL CHOL (test code = 2237) 164 MG/DL RISK RATIO LDL/HDL (test code = 3.57 RATIO 2238) COMPREHENSIVE METABOLIC [id number] 00:00:00 Test Item Value Reference Range Interpretation Comments GLUCOSE (test code = 2217) 85 MG/DL BUN (test code = 2208) 12 MG/DL CREATININE (test code = 2214) 0.59 MG/DL eGFR (2020 CKD-EPI) (test 123 ML/MIN/1.73 code = 15542) CALC BUN/CREAT (test code = 20 RATIO [...] code = 2219) 16 U/L COMPREHENSIVE METABOLIC [id number] 00:00:00 Test Item Value Reference Range Interpretation Comments GLUCOSE (test code = 2217) 85 MG/DL BUN (test code = 2208) 12 MG/DL CREATININE (test code = 2214) 0.59 MG/DL eGFR (2020 CKD-EPI) (test 123 ML/MIN/1.73 code = 45622) CALC BUN/CREAT (test code = 20 RATIO 5) SODIUM (test code = 2231) 141 MEQ/L [...] ALKALINE PHOSPHATASE (test 89 U/L code = 220) AST (test code = 2218) 12 U/L ALT (test code = 2219) 16 U/L [id number] 00:00:00 Test Item Value Reference Range Interpretation Comments TSH, THIRD GENERATION (test code 7.090 UIU/ML = 2821) [id number] 00:00:00 Test Item Value Reference Range Interpretation Comments TSH, THIRD GENERATION (test code 7.090 UIU/ML = 2821) [id number] 00:00:00 Test Item Value Reference Range Interpretation Comments TSH, THIRD GENERATION (test code 7.090 UIU/ML = 2821) TROPONIN [id number] 21:03:34 Test Item Value Reference Interpretation Comments Range TROPONIN I (test 0.000 ng/mL See_Comment [Automated code = [id number]) message] The system which generated this result [...] biotin. Lab Interpretation Normal (test code = 44903-9) [id number]29 Test Item Value Reference Interpretation Comments Range D-DIMER (test code = See_Comment [Autom ated [id number]) message] The system which generated this result [...] diagnosis. Lab Interpretation Normal (test code = 99459-0) [facility] WITH [id number] 19:14:30 Test Item Value Reference Range Interpretation Comments WBC (test code = See_Comment [Automated 7268-2) message] The sy stem which generated this result transmitted reference range : 4.30 - 11.10 10*3/?L. The reference range was not used to interpret this result as normal/abnormal . RBC (test code = See_Comment [Automated 929-8) message] The sy stem which generated this [...] RDW-SD (test code = 42.2 fL 39.0-49.9 22831-3) RDW-CV (test code = 13.1 % 12.0-15.5 788-0) PLT (test code = See_Comment [Automated 777-3) message] The sy stem which generated this result transmitted reference range : 166 - 358 10*3/ ?L. The reference r ana laura was not used to interpret this result as normal/abnormal . MPV (test code = 9.6 fL 9.5-12.9 69665-3) NRBC/100 WBC (test See_Comment [Automat ed code = 0054221540) message] The system which generated this result transmitted reference range : 0.0 - 10.0 /100 WBCs. The refer ence range was not u sed to interpret th is result as normal/abnormal . NRBC x10^3 (test code <0.01 See_Comment [Auto mated = [id number]) message] The s ystem which generated this result transmitted reference range : 10*3/?L. The reference range was not used to interpret this result as normal/abnormal . GRAN MAT (NEUT) % 43.7 % (test code = 770-8) IMM GRAN % (test code 0.50 % = 9371168428) LYMPH % (test code = 46.2 % 736-9) MONO % (test code = 6.2 % 5905-5) EOS % (test code = 2.8 % 713-8) BASO % (test code = 0.6 % 706-2) GRAN MAT x10^3(ANC) 4.77 10*3/uL 1.88-7.09 (test code = 3210626432) IMM GRAN x10^3 (test 0.05 10*3/uL 0.00-0.06 code = 3437465035) LYMPH x10^3 (test code 5.05 10*3/uL 1.32-3.29 H = 731-0) MONO x10^3 (test code 0.68 10*3/uL 0.33-0.92 = 742-7) EOS x10^3 (test code = 0.31 10*3/uL 0.03-0.39 711-2) BASO x10^3 (test code 0.07 10*3/uL 0.01-0.07 = 704-7) Lab Interpretation Abnormal (test code = 18309-1) [facility] [id number] 18:39:27 Test Item Value Reference Interpretation Comments Range TROPONIN I (test 0.001 ng/mL See_Comment [Automated code = 9117692584) message] The system which generated this result [...] biotin. Lab Interpretation Normal (test code = 59999-7) [facility] (64711)2021-07-27 18:29:25 Test Item Value Reference Range Interpretation Comments NA (test code = 137 mmol/L 135-145 8798766965) K (test code = 4.5 mmol/L 3.5-5.0 8287596639) CL (test code = 104 mmol/L 98-108 7121765707) CO2 TOTAL (test code 26 mmol/L 23-31 = 8264240015) AGAP (test code = 2-16 2822891202) BUN (test code = 10 mg/dL 7-23 4318232219) GLUCOSE (test code = 87 mg/dL 70-110 4704309910) CREATININE (test code 0.59 mg/dL 0.50-1.04 = 2090323074) TOTAL BILI (test code 0.4 mg/dL 0.1-1.1 = 8664605937) CALCIUM (test code = 9.6 mg/dL 8.6-10.6 8227185659) T PROTEIN (test code 7.1 g/dL 6.3-8.2 = 5402118984) ALBUMIN (test code = 4.2 g/dL 3.5-5.0 5946781401) ALK PHOS (test code = 88 U/L 34-122 5632583266) ALTv (test code = 22 U/L 5-35 2-6) AST(SGOT) (test code 25 U/L 13-40 = 2308134012) eGFR (test code = mL/min/1.73m2 0501665124) MACI (test code = MACI) Association of [...] or urine or abnormalities in imaging tests). [facility] Test Item Value Reference Range Interpretation Comments MAGNESIUM (test code = 4310605015) 1.8 mg/dL 1.7-2.4 Lab Interpretation (test code = Normal 45039-8) [facility] [id number] 18:28:00 Test Item Value Reference Range Interpretation Comments POCT PREG (test code = 1605) negative POCT PREG LOT # (test code = 3575) [id number] POCT PREG TEST DATE (test 2022-09-12 code = 3576) Lab Interpretation (test code = Normal 25051-9) [facility] [id number] 19:26:00 Test Item Value Reference Range Interpretation Comments POCT PREG (test code = 1605) Negative On board controls acceptable with C Yes Line (test code = 3574) POCT PREG LOT # (test code = 3575) POCT PREG TEST DATE (test code = 3576) Lab Interpretation (test code = Normal 22470-9) [facility] [id number] 19:26:00 Test Item Value Reference Range Interpretation Comments POCT PREG (test code = 1605) Negative On board controls acceptable with C Yes Line (test code = 3574) POCT PREG LOT # (test code = 3575) POCT PREG TEST DATE (test code = 3576) Lab Interpretation (test code = Normal 11407-8) [facility] [id number] 19:26:00 Test Item Value Reference Range Interpretation Comments POCT PREG (test code = 1605) Negative On board controls acceptable with C Yes Line (test code = 3574) POCT PREG LOT # (test code = 3575) POCT PREG TEST DATE (test code = 3576) Lab Interpretation (test code = Normal 33887-2) [facility] by RT-PCR (HIGH RISK) 2020-12-15 00:00:00 Test Item Value Reference Range Interpretation Comments SARS-CoV-2 INTERPRETATION (test NEGATIVE code = 30821) SOURCE (test code = 16931) NOT SPECIFIED SARS-CoV-2 (COVID-19) by RT-PCR (HIGH RISK)2020-12-15 00:00:00 Test Item Value Reference Range Interpretation Comments SARS-CoV-2 INTERPRETATION (test NEGATIVE code = 09381) SOURCE (test code = 67110) NOT SPECIFIED SARS-CoV-2 (COVID-19) by RT-PCR (HIGH RISK)2020-12-15 00:00:00 Test Item Value Reference Range Interpretation Comments SARS-CoV-2 INTERPRETATION (test NEGATIVE code = 04798) SOURCE (test code = 96363) NOT SPECIFIED SARS-CoV-2 (COVID-19) by RT-PCR (HIGH RISK)2020-12-15 00:00:00 Test Item Value Reference Range Interpretation Comments SARS-CoV-2 INTERPRETATION (test NEGATIVE code = 16467) SOURCE (test code = 72565) NOT SPECIFIED SARS-CoV-2 (COVID-19) by RT-PCR (HIGH RISK)2020-12-15 00:00:00 Test Item Value Reference Range Interpretation Comments SARS-CoV-2 INTERPRETATION (test NEGATIVE code = 86238) SOURCE (test code = 52432) NOT SPECIFIED SARS-CoV-2 (COVID-19) by RT-PCR (HIGH RISK)2020-12-15 00:00:00 Test Item Value Reference Range Interpretation Comments SARS-CoV-2 INTERPRETATION (test NEGATIVE code = 05613) SOURCE (test code = 48366) NOT SPECIFIED SARS-CoV-2 (COVID-19) by RT-PCR (HIGH RISK)2020-12-15 00:00:00 Test Item Value Reference Range Interpretation Comments SARS-CoV-2 INTERPRETATION (test NEGATIVE code = 97672) SOURCE (test code = 05246) NOT SPECIFIED SARS-CoV-2 (COVID-19) by RT-PCR (HIGH RISK)2020-12-15 00:00:00 Test Item Value Reference Range Interpretation Comments SARS-CoV-2 INTERPRETATION (test NEGATIVE code = 90760) SOURCE (test code = 18699) NOT SPECIFIED SARS-CoV-2 (COVID-19) by RT-PCR (HIGH RISK)2020-12-15 00:00:00 Test Item Value Reference Range Interpretation Comments SARS-CoV-2 INTERPRETATION (test NEGATIVE code = 50543) SOURCE (test code = 78211) NOT SPECIFIED POCT [id number] 20:47:00 Test Item Value Reference Range Interpretation Comments POCT PREG (test code = 1605) Negative On board controls acceptable with C Yes Line (test code = 3574) POCT PREG LOT # (test code = 3575) POCT PREG TEST DATE (test code = 3576) Lab Interpretation (test code = Normal 99495-2) [facility] [id number] 20:47:00 Test Item Value Reference Range Interpretation Comments POCT PREG (test code = 1605) Negative On board controls acceptable with C Yes Line (test code = 3574) POCT PREG LOT # (test code = 3575) POCT PREG TEST DATE (test code = 3576) Lab Interpretation (test code = Normal 74009-9) [facility] AND CHLAMYDIA AMPLIFIED, [id number] 00:00:00 Test Item Value Reference Range Interpretation Comments GONORRHEA, TMA (test code = 41001) NEGATIVE CHLAMYDIA, TMA (test code = 27095) NEGATIVE HIV AB/AG COMBO RFLX [id number] 00:00:00 Test Item Value Reference Range Interpretation Comments HIV 1/2 4TH GEN, RFLX CONF (test NON-REACTIVE code = 3514) GC AND CHLAMYDIA AMPLIFIED, [id number] 00:00:00 Test Item Value Reference Range Interpretation Comments GONORRHEA, TMA (test code = 64282) NEGATIVE CHLAMYDIA, TMA (test code = 99060) NEGATIVE HIV AB/AG COMBO RFLX [id number] 00:00:00 Test Item Value Reference Range Interpretation Comments HIV 1/2 4TH GEN, RFLX CONF (test NON-REACTIVE code = 3514) ACUTE HEPATITIS [id number] 00:00:00 Test Item Value Reference Range Interpretation Comments HEPATITIS A IgM (test code = NON-REACTIVE 29682) HEPATITIS B CORE IgM (test code NON-REACTIVE = 4644) HEPATITIS B SURF AG (test code = NON-REACTIVE 2739) HEPATITIS C ANTIBODY (test code NON-REACTIVE = 4675) INTERPRETATION HEPATITIS A: (NOTE) (test code = 2552) INTERPRETATION HEPATITIS B: (NOTE) (test code = 76989) INTERPRETATION HEPATITIS C: (NOTE) (test code = 73755) PAP TEST, THINPREP, [id number] 00:00:00 Test Item Value Reference Range Interpretation Comments SOURCE: (test code = Endocervical 8001) SLIDES: (test code = 1 8011) LMP: (test code = 10/2020 8021) SPECIMEN ADEQUACY: (NOTE) (test code = 58825) INTERPRETATION: (test NILM/NO EPITH. code = 25711) ABNORMALITY;SEE BELOW MANAGED SERVICES SALES CONSULTANT: RANJEET Riley(ASCP)IAC (test code = 8101) LOCATION: (test code (NOTE) = 94757) CPT: (test code = (NOTE) 8140) ACUTE HEPATITIS [id number] 00:00:00 Test Item Value Reference Range Interpretation Comments HEPATITIS A IgM (test code = NON-REACTIVE 59234) HEPATITIS B CORE IgM (test code NON-REACTIVE = 4644) HEPATITIS B SURF AG (test code = NON-REACTIVE 2739) HEPATITIS C ANTIBODY (test code NON-REACTIVE = 4675) INTERPRETATION HEPATITIS A: (NOTE) (test code = 2552) INTERPRETATION HEPATITIS B: (NOTE) (test code = 03204) INTERPRETATION HEPATITIS C: (NOTE) (test code = 59219) PAP TEST, THINPREP, [id number] 00:00:00 Test Item Value Reference Range Interpretation Comments SOURCE: (test code = Endocervical 8001) SLIDES: (test code = 1 8011) LMP: (test code = 10/2020 8021) SPECIMEN ADEQUACY: (NOTE) (test code = 13125) INTERPRETATION: (test NILM/NO EPITH. code = 95997) ABNORMALITY;SEE BELOW MANAGED SERVICES SALES CONSULTANT: RANJEET Riley(ASCP)IAC (test code = 8101) LOCATION: (test code (NOTE) = 89561) CPT: (test code = (NOTE) 8140) [id number] 00:00:00 Test Item Value Reference Range Interpretation Comments RPR RESULT (test code = NON-REACTIVE 3501) RPR TITER (test code = 3500) NOT INDIC. TITER HPV HIGH RISK WITH GENOTYPE, [id number] 00:00:00 Test Item Value Reference Range Interpretation Comments HPV HIGH RISK INTERP (test code = NEGATIVE 19698) HPV 16 (test code = 36164) NEGATIVE HPV 18 (test code = 77877) NEGATIVE HPV, HR, OTHER GENOTYPES (test code NEGATIVE = 66095) [id number] 00:00:00 Test Item Value Reference Range Interpretation Comments RPR RESULT (test code = NON-REACTIVE 3501) RPR TITER (test code = 3500) NOT INDIC. TITER [id number] 00:00:00 Test Item Value Reference Range Interpretation Comments RPR RESULT (test code = NON-REACTIVE 3501) RPR TITER (test code = 3500) NOT INDIC. TITER HPV HIGH RISK WITH GENOTYPE, [id number] 00:00:00 Test Item Value Reference Range Interpretation Comments HPV HIGH RISK INTERP (test code = NEGATIVE 45142) HPV 16 (test code = 15924) NEGATIVE HPV 18 (test code = 47790) NEGATIVE HPV, HR, OTHER GENOTYPES (test code NEGATIVE = 92953) VAGINAL PATHOGENS DNA [id number] 00:00:00 Test Item Value Reference Range Interpretation Comments ANNE MARIE SPECIES (test code = ) NEGATIVE G. VAGINALIS (test code = 13298) NEGATIVE T. VAGINALIS (test code = 60746) NEGATIVE VAGINAL PATHOGENS DNA [id number] 00:00:00 Test Item Value Reference Range Interpretation Comments ANNE MARIE SPECIES (test code = ) NEGATIVE G. VAGINALIS (test code = 70440) NEGATIVE T. VAGINALIS (test code = 46386) NEGATIVE HIV AB/AG COMBO RFLX [id number] 00:00:00 Test Item Value Reference Range Interpretation Comments HIV 1/2 4TH GEN, RFLX CONF (test NON-REACTIVE code = 3514) GC AND CHLAMYDIA AMPLIFIED, [id number] 00:00:00 Test Item Value Reference Range Interpretation Comments GONORRHEA, TMA (test code = 15724) NEGATIVE CHLAMYDIA, TMA (test code = 17857) NEGATIVE HIV AB/AG COMBO RFLX [id number] 00:00:00 Test Item Value Reference Range Interpretation Comments HIV 1/2 4TH GEN, RFLX CONF (test NON-REACTIVE code = 3514) GC AND CHLAMYDIA AMPLIFIED, [id number] 00:00:00 Test Item Value Reference Range Interpretation Comments GONORRHEA, TMA (test code = 56078) NEGATIVE CHLAMYDIA, TMA (test code = 40660) NEGATIVE ACUTE HEPATITIS [id number] 00:00:00 Test Item Value Reference Range Interpretation Comments HEPATITIS A IgM (test code = NON-REACTIVE 93630) HEPATITIS B CORE IgM (test code NON-REACTIVE = 5444) HEPATITIS B SURF AG (test code = NON-REACTIVE 8349) HEPATITIS C ANTIBODY (test code NON-REACTIVE = 4675) INTERPRETATION HEPATITIS A: (NOTE) (test code = 2552) INTERPRETATION HEPATITIS B: (NOTE) (test code = 19874) INTERPRETATION HEPATITIS C: (NOTE) (test code = 74594) PAP TEST, THINPREP, [id number] 00:00:00 Test Item Value Reference Range Interpretation Comments SOURCE: (test code = Endocervical 8001) SLIDES: (test code = 1 8011) LMP: (test code = 10/2020 8021) SPECIMEN ADEQUACY: (NOTE) (test code = 29431) INTERPRETATION: (test NILM/NO EPITH. code = 65036) ABNORMALITY;SEE BELOW MANAGED SERVICES SALES CONSULTANT: RANJEET Riley(ASCP)IAC (test code = 8101) LOCATION: (test code (NOTE) = 36196) CPT: (test code = (NOTE) 8140) ACUTE HEPATITIS [id number] 00:00:00 Test Item Value Reference Range Interpretation Comments HEPATITIS A IgM (test code = NON-REACTIVE 58044) HEPATITIS B CORE IgM (test code NON-REACTIVE = 4644) HEPATITIS B SURF AG (test code = NON-REACTIVE 2739) HEPATITIS C ANTIBODY (test code NON-REACTIVE = 4675) INTERPRETATION HEPATITIS A: (NOTE) (test code = 2552) INTERPRETATION HEPATITIS B: (NOTE) (test code = 64872) INTERPRETATION HEPATITIS C: (NOTE) (test code = 82747) PAP TEST, THINPREP, [id number] 00:00:00 Test Item Value Reference Range Interpretation Comments SOURCE: (test code = Endocervical 8001) SLIDES: (test code = 1 8011) LMP: (test code = 10/2020 8021) SPECIMEN ADEQUACY: (NOTE) (test code = 52488) INTERPRETATION: (test NILM/NO EPITH. code = 13098) ABNORMALITY;SEE BELOW MANAGED SERVICES SALES CONSULTANT: RANJEET Riley(ASCP)IAC (test code = 8101) LOCATION: (test code (NOTE) = 64738) CPT: (test code = (NOTE) 8140) HPV HIGH RISK WITH GENOTYPE, [id number] 00:00:00 Test Item Value Reference Range Interpretation Comments HPV HIGH RISK INTERP (test code = NEGATIVE 80498) HPV 16 (test code = 07116) NEGATIVE HPV 18 (test code = 14504) NEGATIVE HPV, HR, OTHER GENOTYPES (test code NEGATIVE = 92954) [id number] 00:00:00 Test Item Value Reference Range Interpretation Comments RPR RESULT (test code = NON-REACTIVE 3501) RPR TITER (test code = 3500) NOT INDIC. TITER [id number] 00:00:00 Test Item Value Reference Range Interpretation Comments RPR RESULT (test code = NON-REACTIVE 3501) RPR TITER (test code = 3500) NOT INDIC. TITER HPV HIGH RISK WITH GENOTYPE, [id number] 00:00:00 Test Item Value Reference Range Interpretation Comments HPV HIGH RISK INTERP (test code = NEGATIVE 76636) HPV 16 (test code = 90667) NEGATIVE HPV 18 (test code = 91389) NEGATIVE HPV, HR, OTHER GENOTYPES (test code NEGATIVE = 98536) [id number] 00:00:00 Test Item Value Reference Range Interpretation Comments RPR RESULT (test code = NON-REACTIVE 3501) RPR TITER (test code = 3500) NOT INDIC. TITER VAGINAL PATHOGENS DNA [id number] 00:00:00 Test Item Value Reference Range Interpretation Comments ANNE MARIE SPECIES (test code = 37395) NEGATIVE G. VAGINALIS (test code = 17379) NEGATIVE T. VAGINALIS (test code = 40191) NEGATIVE VAGINAL PATHOGENS DNA [id number] 00:00:00 Test Item Value Reference Range Interpretation Comments ANNE MARIE SPECIES (test code = 27161) NEGATIVE G. VAGINALIS (test code = 48956) NEGATIVE T. VAGINALIS (test code = 28689) NEGATIVE GC AND CHLAMYDIA AMPLIFIED, [id number] 00:00:00 Test Item Value Reference Range Interpretation Comments GONORRHEA, TMA (test code = 11351) NEGATIVE CHLAMYDIA, TMA (test code = 91813) NEGATIVE HIV AB/AG COMBO RFLX [id number] 00:00:00 Test Item Value Reference Range Interpretation Comments HIV 1/2 4TH GEN, RFLX CONF (test NON-REACTIVE code = 3514) ACUTE HEPATITIS [id number] 00:00:00 Test Item Value Reference Range Interpretation Comments HEPATITIS A IgM (test code = NON-REACTIVE 08194) HEPATITIS B CORE IgM (test code NON-REACTIVE = 9744) HEPATITIS B SURF AG (test code = NON-REACTIVE 9589) HEPATITIS C ANTIBODY (test code NON-REACTIVE = 4675) INTERPRETATION HEPATITIS A: (NOTE) (test code = 2552) INTERPRETATION HEPATITIS B: (NOTE) (test code = 98091) INTERPRETATION HEPATITIS C: (NOTE) (test code = 68957) PAP TEST, THINPREP, [id number] 00:00:00 Test Item Value Reference Range Interpretation Comments SOURCE: (test code = Endocervical 8001) SLIDES: (test code = 1 8011) LMP: (test code = 10/2020 8021) SPECIMEN ADEQUACY: (NOTE) (test code = 46015) INTERPRETATION: (test NILM/NO EPITH. code = 12732) ABNORMALITY;SEE BELOW MANAGED SERVICES SALES CONSULTANT: RANJEET Riley(ASCP)IAC (test code = 8101) LOCATION: (test code (NOTE) = 03726) CPT: (test code = (NOTE) 8140) HPV HIGH RISK WITH GENOTYPE, [id number] 00:00:00 Test Item Value Reference Range Interpretation Comments HPV HIGH RISK INTERP (test code = NEGATIVE 83352) HPV 16 (test code = 80947) NEGATIVE HPV 18 (test code = 77923) NEGATIVE HPV, HR, OTHER GENOTYPES (test code NEGATIVE = 16742) [id number] 00:00:00 Test Item Value Reference Range Interpretation Comments RPR RESULT (test code = NON-REACTIVE 3501) RPR TITER (test code = 3500) NOT INDIC. TITER [id number] 00:00:00 Test Item Value Reference Range Interpretation Comments RPR RESULT (test code = NON-REACTIVE 3501) RPR TITER (test code = 3500) NOT INDIC. TITER VAGINAL PATHOGENS DNA [id number] 00:00:00 Test Item Value Reference Range Interpretation Comments ANNE MARIE SPECIES (test code = ) NEGATIVE G. VAGINALIS (test code = ) NEGATIVE T. VAGINALIS (test code = ) NEGATIVE GC AND CHLAMYDIA AMPLIFIED, [id number] 00:00:00 Test Item Value Reference Range Interpretation Comments GONORRHEA, TMA (test code = 69423) NEGATIVE CHLAMYDIA, TMA (test code = 10704) NEGATIVE GC AND CHLAMYDIA AMPLIFIED, [id number] 00:00:00 Test Item Value Reference Range Interpretation Comments GONORRHEA, TMA (test code = 42739) NEGATIVE CHLAMYDIA, TMA (test code = 43696) NEGATIVE HIV AB/AG COMBO RFLX [id number] 00:00:00 Test Item Value Reference Range Interpretation Comments HIV 1/2 4TH GEN, RFLX CONF (test NON-REACTIVE code = 3514) HIV AB/AG COMBO RFLX [id number] 00:00:00 Test Item Value Reference Range Interpretation Comments HIV 1/2 4TH GEN, RFLX CONF (test NON-REACTIVE code = 3514) PAP TEST, THINPREP, [id number] 00:00:00 Test Item Value Reference Range Interpretation Comments SOURCE: (test code = Endocervical 8001) SLIDES: (test code = 1 8011) LMP: (test code = 10/2020 8021) SPECIMEN ADEQUACY: (NOTE) (test code = 46531) INTERPRETATION: (test NILM/NO EPITH. code = 58416) ABNORMALITY;SEE BELOW MANAGED SERVICES SALES CONSULTANT: RANJEET Riley(ASCP)IAC (test code = 8101) LOCATION: (test code (NOTE) = 74889) CPT: (test code = (NOTE) 8140) ACUTE HEPATITIS [id number] 00:00:00 Test Item Value Reference Range Interpretation Comments HEPATITIS A IgM (test code = NON-REACTIVE 93029) HEPATITIS B CORE IgM (test code NON-REACTIVE = 4644) HEPATITIS B SURF AG (test code = NON-REACTIVE 2739) HEPATITIS C ANTIBODY (test code NON-REACTIVE = 4675) INTERPRETATION HEPATITIS A: (NOTE) (test code = 2552) INTERPRETATION HEPATITIS B: (NOTE) (test code = 08379) INTERPRETATION HEPATITIS C: (NOTE) (test code = 63569) PAP TEST, THINPREP, [id number] 00:00:00 Test Item Value Reference Range Interpretation Comments SOURCE: (test code = Endocervical 8001) SLIDES: (test code = 1 8011) LMP: (test code = 10/2020 8021) SPECIMEN ADEQUACY: (NOTE) (test code = 56251) INTERPRETATION: (test NILM/NO EPITH. code = 91084) ABNORMALITY;SEE BELOW MANAGED SERVICES SALES CONSULTANT: RANJEET Riley(ASCP)IAC (test code = 8101) LOCATION: (test code (NOTE) = 42348) CPT: (test code = (NOTE) 8140) ACUTE HEPATITIS [id number] 00:00:00 Test Item Value Reference Range Interpretation Comments HEPATITIS A IgM (test code = NON-REACTIVE 17317) HEPATITIS B CORE IgM (test code NON-REACTIVE = 4644) HEPATITIS B SURF AG (test code = NON-REACTIVE 2739) HEPATITIS C ANTIBODY (test code NON-REACTIVE = 6175) INTERPRETATION HEPATITIS A: (NOTE) (test code = 2552) INTERPRETATION HEPATITIS B: (NOTE) (test code = 92124) INTERPRETATION HEPATITIS C: (NOTE) (test code = 59133) [id number] 00:00:00 Test Item Value Reference Range Interpretation Comments RPR RESULT (test code = NON-REACTIVE 3501) RPR TITER (test code = 3500) NOT INDIC. TITER HPV HIGH RISK WITH GENOTYPE, [id number] 00:00:00 Test Item Value Reference Range Interpretation Comments HPV HIGH RISK INTERP (test code = NEGATIVE 76757) HPV 16 (test code = 09636) NEGATIVE HPV 18 (test code = 33269) NEGATIVE HPV, HR, OTHER GENOTYPES (test code NEGATIVE = 12971) [id number] 00:00:00 Test Item Value Reference Range Interpretation Comments RPR RESULT (test code = NON-REACTIVE 3501) RPR TITER (test code = 3500) NOT INDIC. TITER [id number] 00:00:00 Test Item Value Reference Range Interpretation Comments RPR RESULT (test code = NON-REACTIVE 3501) RPR TITER (test code = 3500) NOT INDIC. TITER HPV HIGH RISK WITH GENOTYPE, [id number] 00:00:00 Test Item Value Reference Range Interpretation Comments HPV HIGH RISK INTERP (test code = NEGATIVE 89389) HPV 16 (test code = 28809) NEGATIVE HPV 18 (test code = 78373) NEGATIVE HPV, HR, OTHER GENOTYPES (test code NEGATIVE = 33066) VAGINAL PATHOGENS DNA [id number] 00:00:00 Test Item Value Reference Range Interpretation Comments ANNE MARIE SPECIES (test code = ) NEGATIVE G. VAGINALIS (test code = ) NEGATIVE T. VAGINALIS (test code = ) NEGATIVE VAGINAL PATHOGENS DNA [id number] 00:00:00 Test Item Value Reference Range Interpretation Comments ANNE MARIE SPECIES (test code = ) NEGATIVE G. VAGINALIS (test code = ) NEGATIVE T. VAGINALIS (test code = ) NEGATIVE GC AND CHLAMYDIA AMPLIFIED, [id number] 00:00:00 Test Item Value Reference Range Interpretation Comments GONORRHEA, TMA (test code = 23991) NEGATIVE CHLAMYDIA, TMA (test code = 82420) NEGATIVE HIV AB/AG COMBO RFLX [id number] 00:00:00 Test Item Value Reference Range Interpretation Comments HIV 1/2 4TH GEN, RFLX CONF (test NON-REACTIVE code = 3514) HIV AB/AG COMBO RFLX [id number] 00:00:00 Test Item Value Reference Range Interpretation Comments HIV 1/2 4TH GEN, RFLX CONF (test NON-REACTIVE code = 3514) GC AND CHLAMYDIA AMPLIFIED, [id number] 00:00:00 Test Item Value Reference Range Interpretation Comments GONORRHEA, TMA (test code = 75633) NEGATIVE CHLAMYDIA, TMA (test code = 42089) NEGATIVE ACUTE HEPATITIS [id number] 00:00:00 Test Item Value Reference Range Interpretation Comments HEPATITIS A IgM (test code = NON-REACTIVE 31620) HEPATITIS B CORE IgM (test code NON-REACTIVE = 4644) HEPATITIS B SURF AG (test code = NON-REACTIVE 1109) HEPATITIS C ANTIBODY (test code NON-REACTIVE = 4675) INTERPRETATION HEPATITIS A: (NOTE) (test code = 2552) INTERPRETATION HEPATITIS B: (NOTE) (test code = 52135) INTERPRETATION HEPATITIS C: (NOTE) (test code = 53461) PAP TEST, THINPREP, [id number] 00:00:00 Test Item Value Reference Range Interpretation Comments SOURCE: (test code = Endocervical 8001) SLIDES: (test code = 1 8011) LMP: (test code = 10/2020 8021) SPECIMEN ADEQUACY: (NOTE) (test code = 15607) INTERPRETATION: (test NILM/NO EPITH. code = 66309) ABNORMALITY;SEE BELOW MANAGED SERVICES SALES CONSULTANT: RANJEET Riley(ASCP)IAC (test code = 8101) LOCATION: (test code (NOTE) = 16149) CPT: (test code = (NOTE) 8140) ACUTE HEPATITIS [id number] 00:00:00 Test Item Value Reference Range Interpretation Comments HEPATITIS A IgM (test code = NON-REACTIVE 50477) HEPATITIS B CORE IgM (test code NON-REACTIVE = 4644) HEPATITIS B SURF AG (test code = NON-REACTIVE 7099) HEPATITIS C ANTIBODY (test code NON-REACTIVE = 1938) INTERPRETATION HEPATITIS A: (NOTE) (test code = 2552) INTERPRETATION HEPATITIS B: (NOTE) (test code = 42560) INTERPRETATION HEPATITIS C: (NOTE) (test code = 86969) PAP TEST, THINPREP, [id number] 00:00:00 Test Item Value Reference Range Interpretation Comments SOURCE: (test code = Endocervical 8001) SLIDES: (test code = 1 8011) LMP: (test code = 10/2020 8021) SPECIMEN ADEQUACY: (NOTE) (test code = 79813) INTERPRETATION: (test NILM/NO EPITH. code = 59918) ABNORMALITY;SEE BELOW MANAGED SERVICES SALES CONSULTANT: RANJEET Riley(ASCP)IAC (test code = 8101) LOCATION: (test code (NOTE) = 64033) CPT: (test code = (NOTE) 8140) HPV HIGH RISK WITH GENOTYPE, [id number] 00:00:00 Test Item Value Reference Range Interpretation Comments HPV HIGH RISK INTERP (test code = NEGATIVE 46361) HPV 16 (test code = 53322) NEGATIVE HPV 18 (test code = 93115) NEGATIVE HPV, HR, OTHER GENOTYPES (test code NEGATIVE = 72995) [id number] 00:00:00 Test Item Value Reference Range Interpretation Comments RPR RESULT (test code = NON-REACTIVE 3501) RPR TITER (test code = 3500) NOT INDIC. TITER [id number] 00:00:00 Test Item Value Reference Range Interpretation Comments RPR RESULT (test code = NON-REACTIVE 3501) RPR TITER (test code = 3500) NOT INDIC. TITER HPV HIGH RISK WITH GENOTYPE, [id number] 00:00:00 Test Item Value Reference Range Interpretation Comments HPV HIGH RISK INTERP (test code = NEGATIVE 92883) HPV 16 (test code = 87383) NEGATIVE HPV 18 (test code = 09904) NEGATIVE HPV, HR, OTHER GENOTYPES (test code NEGATIVE = 04874) [id number] 00:00:00 Test Item Value Reference Range Interpretation Comments RPR RESULT (test code = NON-REACTIVE 3501) RPR TITER (test code = 3500) NOT INDIC. TITER VAGINAL PATHOGENS DNA [id number] 00:00:00 Test Item Value Reference Range Interpretation Comments ANNE MARIE SPECIES (test code = ) NEGATIVE G. VAGINALIS (test code = 66714) NEGATIVE T. VAGINALIS (test code = 10619) NEGATIVE VAGINAL PATHOGENS DNA [id number] 00:00:00 Test Item Value Reference Range Interpretation Comments ANNE MARIE SPECIES (test code = ) NEGATIVE G. VAGINALIS (test code = 57376) NEGATIVE T. VAGINALIS (test code = 62334) NEGATIVE
--- NOTE | 2022-12-30 06:29 | ER ---
Nurse's Notes [facility] Name: Claudine Morales Age: 32 yrs Sex: Female : 1990 Arrival Date: 12/30/2022 Time: 04:45 Bed 20 [facility] MD: Diagnosis: Other acute postprocedural pain Presentation: 12/30 04:51 Chief complaint: Patient states: I was in the hospital on the for a tonsillectomy kd3 and now i am spitting up too much blood. Coronavirus screen: Vaccine status:. Coronavirus screen: Vaccine status: Patient reports receiving the 2nd dose of the covid vaccine. Ebola Screen: No symptoms or risks identified at this time. Initial Sepsis Screen: Does the patient meet any 2 criteria? No. Patient's initial sepsis screen is negative. Does the patient have a suspected source of infection? No. Patient's initial sepsis screen is negative. Risk Assessment: Do you want to hurt yourself or someone else? Patient reports no desire to harm self or others. Onset of symptoms was December 30, 2022. 04:51 Method Of Arrival: Ambulatory kd3 04:51 Acuity: VANDANA 4 kd3 Triage Assessment: 04:53 General: Appears uncomfortable, Behavior is anxious. Pain: Denies pain. kd3 Historical: - Allergies: 04:53 Abilify; kd3 04:53 Lamictal; kd3 - PMHx: 04:53 Hypertensive disorder; Hypothyroidism; insomnia; mood disorder; PCOS; kd3 - PSHx: 04:53 facial reconstruction; kd3 - Immunization history:: Adult Immunizations up to date. - Social history:: Smoking status: Patient denies any tobacco usage or history of. Screenin:26 [facility] ED Fall Risk Assessment (Adult) History of falling in the last 3 months, ha1 including since admission No falls in past 3 months (0 pts) Confusion or Disorientation No (0 pts) Intoxicated or Sedated No (0 pts) Score/Fall Risk Level 0 - 2 = Low Risk Oriented to surroundings, Maintained a safe environment, Educated pt \\T\\ family on fall prevention, incl call for assistance when getting out of bed. Abuse screen: Denies threats or abuse. Denies injuries from another. Nutritional screening: No deficits noted. Tuberculosis screening: No symptoms or risk factors identified. Assessment: 04:54 General: Appears comfortable, Behavior is calm, cooperative. Pain: Complains of pain in ha1 throat Pain does not radiate. Pain currently is 7 out of 10 on a pain scale. Quality of pain is described as burning. Neuro: Level of Consciousness is awake, alert, obeys commands, Oriented to person, place, time, situation. Cardiovascular: Patient's skin is warm and dry. Respiratory: Airway is patent Respiratory effort is even, unlabored, Respiratory pattern is regular, symmetrical. GI: No signs and/or symptoms were reported involving the gastrointestinal system. EENT: Reports tonsil removal two days ago and noticed light bleeding.. 05:30 Reassessment: in shift in the room. States " I will call you your surgeon". ha1 05:50 Reassessment: Patient and/or family updated on plan of care and expected duration. Pain ha1 level reassessed. Patient is alert, oriented x 3, equal unlabored respirations, skin warm/dry/pink. Vital Signs: 04:49 BP 127 / 83; Pulse 70; Resp 16; Temp 98.1; Pulse Ox 98% on R/A; Weight 172.37 kg; kd3 Height 4 ft. 10 in. ; 05:50 BP 126 / 80; Pulse 71; Resp 16; Pulse Ox 100% on R/A; ha1 06:33 BP 134 / 93; Pulse 70; Resp 16 S; Pulse Ox 100% on R/A; ha1 04:49 Body Mass Index 79.42 (172.37 kg, 147.32 cm) kd3 ED Course: 04:46 Patient arrived in ED. ag3 04:53 Triage completed. kd3 04:53 Arm band placed on right wrist. kd3 04:54 Patient has correct armband on for positive identification. Bed in low position. Call ha1 light in reach. Side rails up X 1. 04:55 Sunil Jewell MD is Attending Physician. bs3 05:22 Blossom Torres, MALOU is Primary Nurse. ha1 06:25 Mita Gore MD is Referral Physician. bs3 06:42 No provider procedures requiring assistance completed. Patient did not have IV access ha1 during this emergency room visit. Administered Medications: No medications were administered Medication: 06:43 VIS not applicable for this client. ha1 Outcome: 06:28 Discharge ordered by . bs3 06:42 Discharged to home ambulatory, with family. ha1 06:42 Condition: stable 06:42 Discharge instructions given to patient, family, Instructed on discharge instructions, follow up and referral plans. Demonstrated understanding of instructions, follow-up care. 06:43 Patient left the ED. ha1 Signatures: Mildred Warner 3 Renetta Lenz RN RN kd3 Blossom Torres RN RN ha1 Sunil Jewell MD MD bs3
--- NOTE | 2022-12-30 06:29 | EDPHYS ---
Physician Documentation [facility] Name: Claudine Morales Age: 32 yrs Sex: Female : 1990 Arrival Date: 12/30/2022 Time: 04:45 Bed 20 Private MD: ED Physician Sunil Jewell HPI: 12/30 05:16 This 32 yrs old Female presents to ER via Ambulatory with complaints of ORAL bs3 BLEEDING. 05:16 32-year-old female multiple medical problems presents with coughing up small amount of bs3 blood she notes that she is 2 days status post tonsillectomy and this morning she woke up and coughed up blood and called her ENT and came in. She denies any other complaints. No fever, chills, chest pain sob. She has been complying with medications. . Historical: - Allergies: 04:53 Abilify; kd3 04:53 Lamictal; kd3 - PMHx: 04:53 Hypertensive disorder; Hypothyroidism; insomnia; mood disorder; PCOS; kd3 - PSHx: 04:53 facial reconstruction; kd3 - Immunization history:: Adult Immunizations up to date. - Social history:: Smoking status: Patient denies any tobacco usage or history of. ROS: 05:16 Constitutional: Negative for fever, chills bs3 05:16 All other systems are negative. Exam: 05:16 Constitutional: This is a well developed, well nourished patient who is awake, alert, bs3 and in no acute distress. Head/Face: Normocephalic, atraumatic. Eyes: Pupils equal round and reactive to light, extra-ocular motions intact. Lids and lashes normal. ENT: mmm, she has scabs b/l in the posterior pharynx Neck: Trachea midline, no thyromegaly, no neck stiffness Chest/axilla: Normal chest wall appearance and motion. Nontender with no deformity. No lesions are appreciated. Cardiovascular: Regular rate and rhythm with a normal S1 and S2. symmetric pulses in upper extremities MS/ Extremity: Pulses equal, no cyanosis. Neurovascular intact. Full, normal range of motion. Neuro: Awake and alert, GCS 15, oriented to person, place, time, and situation. Cranial nerves II-XII grossly intact. Motor strength 5/5 in all extremities. Sensory grossly intact. Vital Signs: 04:49 BP 127 / 83; Pulse 70; Resp 16; Temp 98.1; Pulse Ox 98% on R/A; Weight 172.37 kg; kd3 Height 4 ft. 10 in. ; 05:50 BP 126 / 80; Pulse 71; Resp 16; Pulse Ox 100% on R/A; ha1 06:33 BP 134 / 93; Pulse 70; Resp 16 S; Pulse Ox 100% on R/A; ha1 04:49 Body Mass Index 79.42 (172.37 kg, 147.32 cm) kd3 MDM: 04:55 Patient medically screened. bs3 05:16 Data reviewed: vital signs, nurses notes. ED course: Patient with small amount of bs3 bleeding after her tonsillectomy it seems to be improving obviously the concern is for posttonsillectomy hemorrhage will observe and reassess. 06:24 ED course: Patient observed for over 1 hour with significant improvement she only had bs3 small amounts of bleeding while here discussed very strict return precautions advised cold water and only cold beverages/foods, very strict return prec. The case was discussed with Dr. Gore who agreed with the plan. . Administered Medications: No medications were administered Disposition Summary: 12/30/22 06:28 Discharge Ordered Location: Home bs3 Problem: new bs3 Symptoms: have improved bs3 Condition: Stable bs3 Diagnosis - Other acute postprocedural pain bs3 Followup: bs3 - With: Mita Gore MD - When: 48 Hours - Reason: Re-evaluation by your physician Discharge Instructions: - Discharge Summary Sheet bs3 - Diet Following Tonsillectomy, Adult bs3 - Tonsillectomy, Adult, Care After, [id number] bs3 Forms: - Medication Reconciliation Form bs3 - Thank You Letter bs3 - Antibiotic Education bs3 - Prescription Opioid Use bs3 Signatures: Renetta Lenz RN RN kd3 Sunil Jewell MD MD bs3
[2022-12-30 06:53] VITALS: TEMP 98.1
[2022-12-30 06:54] VITALS: O2SAT 100
[2022-12-30 06:56] VITALS: BP 134/93
== END 2022-12-30 06:43 | disposition home or self-care (01) ==
LOC: ER 04:45
DX: G89.18 Other acute postprocedural pain (principal); Z98.890 Other specified postprocedural states; Z88.8 Allergy status to other drugs, medicaments and biological substances

== ENCOUNTER 2023-03-08 15:06 | Emergency (ER) | payer OTHER ==
--- OUTSIDE RECORDS SUMMARY | 2023-03-08 15:25 | XMS REPORT | Continuity of Care Document ---
:1990 Author Organization [facility] t Address [address] [place] [address] [place] [id number] Care Team Providers Name Role Phone ABBY HARDY Primary Care Physician Unavailable THOMPSON BEAULIEU Attending Clinician Unavailable Doctor Unassigned, [place] Attending Clinician Unavailable ISELA FERREIRA Attending Clinician Unavailable Preethi Damon Attending Clinician Yamil PHOENIX Attending Clinician Unavailable Yamil Monroy Attending Clinician YOON PAGE Attending Clinician Unavailable Yoon Page MD Attending Clinician [employer] Attending Clinician Unavailable Marques Mansfield MD Attending Clinician [facility] Resident Attending Clinician Unavailable Aracely Villanueva MD Attending Clinician Dena Santos MD Attending Clinician [phone] Jeanette Henley MD Attending Clinician JEANETTE HENLEY Attending Clinician Unavailable BEBE GABREIL Attending Clinician Unavailable THOMPSON BEAULIEU Admitting Clinician Unavailable Yamil [place] Admitting Clinician Unavailable YOON PAGE Admitting Clinician Unavailable Payers Payer Name Policy Type Policy Number Effective Date Expiration Date S ource Problems Condition Condition Condition Status Onset Resolution Last Treating Co mments Source Name Details Category Date Date Treatment Clinician Date No known No known Disease Unive rs active active ity of problems problems [facility] Allergies, Adverse Reactions, Alerts Allergy Allergy Status Severity Reaction(s) Onset Inactive Treating Comm ents Source Name Type Date Date Clinician Alicia Carrasco Active - Oral ty to 8-25 adverse 00:00: reaction 00 to drug NO KNOWN Drug Active Univers ALLERGIE Class ity of S [facility] Social History Social Habit Start Date Stop Date Quantity Comments Source Gender identity Universit y of [facility] Sexual orientation [facility] Exposure to Not sure [facility] SARS-CoV-2 (event) [facility] History of Social 2023-02-22 2023-02-22 [facility] ity of function 00:00:00 00:00:00 [facility] Alcohol intake 2023-02-22 2023-02-22 [facility] 00:[facility]:00 00:00:00 [facility] Tobacco use and 2023-02-16 2023-02-16 Smokeless Universit y of exposure 00:00:00 00:00:00 tobacco non-user [facility] Sex Assigned At [birth year] Universit y of 00:00:00 00:00:00 [facility] Smoking Status Start Date Stop Date Source Never smoked tobacco [facility] Tobacco smoking consumption [facility] Medications Ordered Filled Start Stop Current Ordering Indication Dosage Frequency Signature Comments Components Source Medication Medication Date Date Medication? Clinician (SIG) Name Name rimegepant Yes [id number] 75mg Take 1 Univers (NURTEC 7-18 tablet by ity of ODT) 75 mg 00:00: mouth as [place] as TbDL 00 needed Medical (Headache) Branch . rimegepant Yes [id number] 75mg Take 1 Univers (NURTEC 7-18 tablet by ity of ODT) 75 mg 00:00: mouth as [place] as TbDL 00 needed Medical (Headache) Branch . rimegepant Yes [id number] 75mg Take 1 Univers (NURTEC 7-18 tablet by ity of ODT) 75 mg 00:00: mouth as [place] as TbDL 00 needed Medical (Headache) Branch . lurasidone Yes [id number] 20mg Take 1 U nivers (LATUDA) 20 7-14 tablet by ity of mg tablet 00:00: mouth [place] 00 every Medical evening. Branch Start Latuda 20 mg with dinner (at least 500 kcal); after 1 week increase to 40 mg with dinner lurasidone 2023-0 Yes [id number] 40mg Take 1 U nivers (LATUDA) 40 7-14 tablet by ity of mg tablet 00:00: mouth [place] 00 every Medical evening. Branch With dinner (at least 500 kcal) after completing one week of Latuda 20 mg daily lurasidone 2023-0 Yes [id number] 20mg Take 1 U nivers (LATUDA) 20 7-14 tablet by ity of mg tablet 00:00: mouth [place] 00 every Medical evening. Branch Start Latuda 20 mg with dinner (at least 500 kcal); after 1 week increase to 40 mg with dinner lurasidone 2023-0 Yes [id number] 40mg Take 1 U nivers (LATUDA) 40 7-14 tablet by ity of mg tablet 00:00: mouth [place] 00 every Medical evening. Branch With dinner (at least 500 kcal) after completing one week of Latuda 20 mg daily lurasidone 2023-0 Yes [id number] 20mg Take 1 U nivers (LATUDA) 20 7-14 tablet by ity of mg tablet 00:00: mouth [place] 00 every Medical evening. Branch Start Latuda 20 mg with dinner (at least 500 kcal); after 1 week increase to 40 mg with dinner lurasidone 2023-0 Yes [id number] 40mg Take 1 U nivers (LATUDA) 40 7-14 tablet by ity of mg tablet 00:00: mouth [place] 00 every Medical evening. Branch With dinner (at least 500 kcal) after completing one week of Latuda 20 mg daily lurasidone 2023-0 Yes [id number] 20mg Take 1 U nivers (LATUDA) 20 7-14 tablet by ity of mg tablet 00:00: mouth [place] 00 every Medical evening. Branch Start Latuda 20 mg with dinner (at least 500 kcal); after 1 week increase to 40 mg with dinner lurasidone 2023-0 Yes [id number] 40mg Take 1 U nivers (LATUDA) 40 7-14 tablet by ity of mg tablet 00:00: mouth [place] 00 every Medical evening. Branch With dinner (at least 500 kcal) after completing one week of Latuda 20 mg daily lurasidone 2023-0 Yes [id number] 20mg Take 1 U nivers (LATUDA) 20 7-14 tablet by ity of mg tablet 00:00: mouth [place] 00 every Medical evening. Branch Start Latuda 20 mg with dinner (at least 500 kcal); after 1 week increase to 40 mg with dinner lurasidone 3-0 Yes [id number] 40mg Take 1 U nivers (LATUDA) 40 7-14 tablet by ity of mg tablet 00:00: mouth [place] 00 every Medical evening. Branch With dinner (at least 500 kcal) after completing one week of Latuda 20 mg daily lurasidone 2022-0 Yes [id number] 20mg Take 1 U nivers (LATUDA) 20 7-14 tablet by ity of mg tablet 00:00: mouth [place] 00 every Medical evening. Branch Start Latuda 20 mg with dinner (at least 500 kcal); after 1 week increase to 40 mg with dinner lurasidone 3-0 Yes [id number] 40mg Take 1 U nivers (LATUDA) 40 7-14 tablet by ity of mg tablet 00:00: mouth [place] 00 every Medical evening. Branch With dinner (at least 500 kcal) after completing one week of Latuda 20 mg daily lurasidone 2022-0 Yes [id number] 20mg Take 1 U nivers (LATUDA) 20 7-14 tablet by ity of mg tablet 00:00: mouth [place] 00 every Medical evening. Branch Start Latuda 20 mg with dinner (at least 500 kcal); after 1 week increase to 40 mg with dinner lurasidone 3-0 Yes [id number] 40mg Take 1 U nivers (LATUDA) 40 7-14 tablet by ity of mg tablet 00:00: mouth [place] 00 every Medical evening. Branch With dinner (at least 500 kcal) after completing one week of Latuda 20 mg daily lurasidone 3-0 Yes [id number] Take one Univers (LATUDA) 20 7-13 tablet by ity of mg tablet 00:00: mouth with [place] 00 dinner (at Medical least 500 Branch calories) for 1 week. After 1 week increase to two tablets by mouth with dinner. hydrOXYzine 2022-0 Yes [id number] 50mg Take 1 Univers 50 mg 7-13 tablet by ity of tablet 00:00: mouth [place] 00 every 6 Medical (six) Branch hours as needed for Itching. doxepin 10 2022-0 Yes [id number] 10mg Take 1 U nivers mg capsule 7-13 capsule by ity of 00:00: mouth at [place] 00 bedtime. Medical Branch lurasidone 2022-0 Yes [id number] Take one Univers (LATUDA) 20 7-13 tablet by ity of mg tablet 00:00: mouth with [place] 00 dinner (at Medical least 500 Branch calories) for 1 week. After 1 week increase to two tablets by mouth with dinner. hydrOXYzine 2022-0 Yes [id number] 50mg Take 1 Univers 50 mg 7-13 tablet by ity of tablet 00:00: mouth [place] 00 every 6 Medical (six) Branch hours as needed for Itching. doxepin 10 2022-0 Yes [id number] 10mg Take 1 U nivers mg capsule 7-13 capsule by ity of 00:00: mouth at [place] 00 bedtime. Medical Branch lurasidone 2022-0 Yes [id number] Take one Univers (LATUDA) 20 7-13 tablet by ity of mg tablet 00:00: mouth with [place] 00 dinner (at Medical least 500 Branch calories) for 1 week. After 1 week increase to two tablets by mouth with dinner. hydrOXYzine 2022-0 Yes [id number] 50mg Take 1 Univers 50 mg 7-13 tablet by ity of tablet 00:00: mouth [place] 00 every 6 Medical (six) Branch hours as needed for Itching. doxepin 10 2022-0 Yes [id number] 10mg Take 1 U nivers mg capsule 7-13 capsule by ity of 00:00: mouth at [place] 00 bedtime. Medical Branch lurasidone 2022-0 Yes [id number] Take one Univers (LATUDA) 20 7-13 tablet by ity of mg tablet 00:00: mouth with [place] 00 dinner (at Medical least 500 Branch calories) for 1 week. After 1 week increase to two tablets by mouth with dinner. hydrOXYzine 2022-0 Yes [id number] 50mg Take 1 Univers 50 mg 7-13 tablet by ity of tablet 00:00: mouth [place] 00 every 6 Medical (six) Branch hours as needed for Itching. doxepin 10 2022-0 Yes [id number] 10mg Take 1 U nivers mg capsule 7-13 capsule by ity of 00:00: mouth at [place] 00 bedtime. Medical Branch lurasidone 2022-0 Yes [id number] Take one Univers (LATUDA) 20 7-13 tablet by ity of mg tablet 00:00: mouth with [place] 00 dinner (at Medical least 500 Branch calories) for 1 week. After 1 week increase to two tablets by mouth with dinner. hydrOXYzine 2022-0 Yes [id number] 50mg Take 1 Univers 50 mg 7-13 tablet by ity of tablet 00:00: mouth [place] 00 every 6 Medical (six) Branch hours as needed for Itching. doxepin 10 2022-0 Yes [id number] 10mg Take 1 U nivers mg capsule 7-13 capsule by ity of 00:00: mouth at [place] 00 bedtime. Medical Branch hydrOXYzine 2022-0 Yes [id number] 50mg Take 1 Univers 50 mg 7-13 tablet by ity of tablet 00:00: mouth [place] 00 every 6 Medical (six) Branch hours as needed for Itching. doxepin 10 2022-0 Yes [id number] 10mg Take 1 U nivers mg capsule 7-13 capsule by ity of 00:00: mouth at [place] 00 bedtime. Medical Branch hydrOXYzine 2022-0 Yes [id number] 50mg Take 1 Univers 50 mg 7-13 tablet by ity of tablet 00:00: mouth [place] 00 every 6 Medical (six) Branch hours as needed for Itching. doxepin 10 2022-0 Yes [id number] 10mg Take 1 U nivers mg capsule 7-13 capsule by ity of 00:00: mouth at [place] 00 bedtime. Medical Branch hydrOXYzine 2022-0 Yes [id number] 50mg Take 1 Univers 50 mg 7-13 tablet by ity of tablet 00:00: mouth [place] 00 every 6 Medical (six) Branch hours as needed for Itching. doxepin 10 2022-0 Yes [id number] 10mg Take 1 U nivers mg capsule 7-13 capsule by ity of 00:00: mouth at [place] 00 bedtime. Medical Branch hydrOXYzine 2022-0 Yes [id number] 50mg Take 1 Univers 50 mg 7-13 tablet by ity of tablet 00:00: mouth [place] 00 every 6 Medical (six) Branch hours as needed for Itching. doxepin 10 2022-0 Yes [id number] 10mg Take 1 U nivers mg capsule 7-13 capsule by ity of 00:00: mouth at [place] 00 bedtime. Medical Branch hydrOXYzine 2022-0 Yes [id number] 50mg Take 1 Univers 50 mg 7-13 tablet by ity of tablet 00:00: mouth [place] 00 every 6 Medical (six) Branch hours as needed for Itching. doxepin 10 2022-0 Yes [id number] 10mg Take 1 U nivers mg capsule 7-13 capsule by ity of 00:00: mouth at [place] 00 bedtime. Medical Branch hydrOXYzine 2022-0 Yes [id number] 50mg Take 1 Univers 50 mg 7-13 tablet by ity of tablet 00:00: mouth [place] 00 every 6 Medical (six) Branch hours as needed for Itching. doxepin 10 2022-0 Yes [id number] 10mg Take 1 U nivers mg capsule 7-13 capsule by ity of 00:00: mouth at [place] 00 bedtime. Medical Branch hydrOXYzine 2022-0 Yes [id number] 50mg Take 1 Univers 50 mg 7-13 tablet by ity of tablet 00:00: mouth [place] 00 every 6 Medical (six) Branch hours as needed for Itching. doxepin 10 2022-0 Yes [id number] 10mg Take 1 U nivers mg capsule 7-13 capsule by ity of 00:00: mouth at [place] 00 bedtime. Medical Branch lurasidone 2022-0 3- No [id number] Take one Univers (LATUDA) 20 7-13 07-14 tablet by it y of mg tablet 00:00: 00:00 mouth with [place] 00 :00 dinner (at Medical least 500 Branch calories) for 1 week. After 1 week increase to two tablets by mouth with dinner. lurasidone 2022-0 2022- No [id number] Take one Univers (LATUDA) 20 7-13 07-14 tablet by it y of mg tablet 00:00: 00:00 mouth with [place] 00 :00 dinner (at Medical least 500 Branch calories) for 1 week. After 1 week increase to two tablets by mouth with dinner. lurasidone 2022-0 2022- No [id number] Take one Univers (LATUDA) 20 7-13 07-14 tablet by it y of mg tablet 00:00: 00:00 mouth with [place] 00 :00 dinner (at Medical least 500 Branch calories) for 1 week. After 1 week increase to two tablets by mouth with dinner. topiramate 2023-0 Yes 25mg Take 1 Unive rs 25 mg 7-11 tablet by ity of tablet 00:00: mouth in [place] [address] the [facility] and 1 tablet in the evening. Take for 7 days then increase to 50mg twice a day. topiramate 2023-0 Yes 50mg Take 1 Unive rs 50 mg 7-11 tablet by ity of tablet 00:00: mouth in [place] [address] the [facility] and 1 tablet in the evening. topiramate 2023-0 Yes 25mg Take 1 Unive rs 25 mg 7-11 tablet by ity of tablet 00:00: mouth in [place] [address] the [facility] and 1 tablet in the evening. Take for 7 days then increase to 50mg twice a day. topiramate 2023-0 Yes 50mg Take 1 Unive rs 50 mg 7-11 tablet by ity of tablet 00:00: mouth in [address] and 1 tablet in the evening. topiramate 2023-0 Yes 25mg Take 1 Unive rs 25 mg 7-11 tablet by ity of tablet 00:00: mouth in [address] and 1 tablet in the evening. Take for 7 days then increase to 50mg twice a day. topiramate 2023-0 Yes 50mg Take 1 Unive rs 50 mg 7-11 tablet by ity of tablet 00:00: mouth in [address] and 1 tablet in the evening. topiramate 2023-0 Yes 25mg Take 1 Unive rs 25 mg 7-11 tablet by ity of tablet 00:00: mouth in [address] and 1 tablet in the evening. Take for 7 days then increase to 50mg twice a day. topiramate 2023-0 Yes 50mg Take 1 Unive rs 50 mg 7-11 tablet by ity of tablet 00:00: mouth in [address] and 1 tablet in the evening. topiramate 2023-0 Yes 25mg Take 1 Unive rs 25 mg 7-11 tablet by ity of tablet 00:00: mouth in [address] and 1 tablet in the evening. Take for 7 days then increase to 50mg twice a day. topiramate 2023-0 Yes 50mg Take 1 Unive rs 50 mg 7-11 tablet by ity of tablet 00:00: mouth in [address] morning [place] and 1 tablet in the evening. topiramate 2023-0 Yes 25mg Take 1 Unive rs 25 mg 7-11 tablet by ity of tablet 00:00: mouth in [place] [address] the [facility] morning [place] and 1 tablet in the evening. Take for 7 days then increase to 50mg twice a day. topiramate 2023-0 Yes 50mg Take 1 Unive rs 50 mg 7-11 tablet by ity of tablet 00:00: mouth in [address] morning [place] and 1 tablet in the evening. topiramate 2023-0 Yes 25mg Take 1 Unive rs 25 mg 7-11 tablet by ity of tablet 00:00: mouth in [address] morning [place] and 1 tablet in the evening. Take for 7 days then increase to 50mg twice a day. topiramate 2023-0 Yes 50mg Take 1 Unive rs 50 mg 7-11 tablet by ity of tablet 00:00: mouth in [address] morning [place] and 1 tablet in the evening. topiramate 2023-0 Yes 25mg Take 1 Unive rs 25 mg 7-11 tablet by ity of tablet 00:00: mouth in [address] morning [place] and 1 tablet in the evening. Take for 7 days then increase to 50mg twice a day. topiramate 2023-0 Yes 50mg Take 1 Unive rs 50 mg 7-11 tablet by ity of tablet 00:00: mouth in [address] morning [place] and 1 tablet in the evening. topiramate 2023-0 Yes 25mg Take 1 Unive rs 25 mg 7-11 tablet by ity of tablet 00:00: mouth in [address] morning [place] and 1 tablet in the evening. Take for 7 days then increase to 50mg twice a day. topiramate 2023-0 Yes 50mg Take 1 Unive rs 50 mg 7-11 tablet by ity of tablet 00:00: mouth in [address] morning [place] and 1 tablet in the evening. topiramate 2023-0 Yes 25mg Take 1 Unive rs 25 mg 7-11 tablet by ity of tablet 00:00: mouth in [address] morning [place] and 1 tablet in the evening. Take for 7 days then increase to 50mg twice a day. topiramate 2023-0 Yes 50mg Take 1 Unive rs 50 mg 7-11 tablet by ity of tablet 00:00: mouth in [place] 00 the Medical morning Branch and 1 tablet in the evening. topiramate 2023-0 Yes 25mg Take 1 Unive rs 25 mg 7-11 tablet by ity of tablet 00:00: mouth in [place] 00 the Medical morning Branch and 1 tablet in the evening. Take for 7 days then increase to 50mg twice a day. topiramate 2023-0 Yes 50mg Take 1 Unive rs 50 mg 7-11 tablet by ity of tablet 00:00: mouth in [place] 00 the Medical morning Branch and 1 tablet in the evening. topiramate 2023-0 Yes 25mg Take 1 Unive rs 25 mg 7-11 tablet by ity of tablet 00:00: mouth in [place] [address] the Medical morning Branch and 1 tablet in the evening. Take for 7 days then increase to 50mg twice a day. topiramate 2023-0 Yes 50mg Take 1 Unive rs 50 mg 7-11 tablet by ity of tablet 00:00: mouth in [place] [address] the Medical morning Branch and 1 tablet in the evening. topiramate 2023-0 Yes 25mg Take 1 Unive rs 25 mg 7-11 tablet by ity of tablet 00:00: mouth in [place] [address] the Medical morning Branch and 1 tablet in the evening. Take for 7 days then increase to 50mg twice a day. topiramate 2023-0 Yes 50mg Take 1 Unive rs 50 mg 7-11 tablet by ity of tablet 00:00: mouth in [place] [address] the Medical morning Branch and 1 tablet in the evening. ubrogepant 2023-0 Yes [id number] 100mg Take 1 Univers 100 mg Tab 7-07 tablet by ity of 00:00: mouth as [place] 00 needed for Medical Other Branch (Headache) for up to 10 doses. If symptoms persist or return, may repeat dose after 2 hours. Maximum: 200 mg per 24 hours ubrogepant 2023-0 Yes [id number] 100mg Take 1 Univers 100 mg Tab 7-07 tablet by ity of 00:00: mouth as [place] 00 needed for Medical Other Branch (Headache) for up to 10 doses. If symptoms persist or return, may repeat dose after 2 hours. Maximum: 200 mg per 24 hours ubrogepant 2023-0 Yes [id number] 100mg Take 1 Univers 100 mg Tab 7-07 tablet by ity of 00:00: mouth as [place] 00 needed for Medical Other Branch (Headache) for up to 10 doses. If symptoms persist or return, may repeat dose after 2 hours. Maximum: 200 mg per 24 hours ubrogepant 2023-0 Yes [id number] 100mg Take 1 Univers 100 mg Tab 7-07 tablet by ity of 00:00: mouth as [place] 00 needed for Medical Other Branch (Headache) for up to 10 doses. If symptoms persist or return, may repeat dose after 2 hours. Maximum: 200 mg per 24 hours ubrogepant 2023-0 Yes [id number] 100mg Take 1 Univers 100 mg Tab 7-07 tablet by ity of 00:00: mouth as [place] 00 needed for Medical Other Branch (Headache) for up to 10 doses. If symptoms persist or return, may repeat dose after 2 hours. Maximum: 200 mg per 24 hours ubrogepant 2023-0 Yes [id number] 100mg Take 1 Univers 100 mg Tab 7-07 tablet by ity of 00:00: mouth as [place] 00 needed for Medical Other Branch (Headache) for up to 10 doses. If symptoms persist or return, may repeat dose after 2 hours. Maximum: 200 mg per 24 hours ubrogepant 2023-0 Yes [id number] 100mg Take 1 Univers 100 mg Tab 7-07 tablet by ity of 00:00: mouth as [place] 00 needed for Medical Other Branch (Headache) for up to 10 doses. If symptoms persist or return, may repeat dose after 2 hours. Maximum: 200 mg per 24 hours ubrogepant 2023-0 Yes [id number] 100mg Take 1 Univers 100 mg Tab 7-07 tablet by ity of 00:00: mouth as [place] 00 needed for Medical Other Branch (Headache) for up to 10 doses. If symptoms persist or return, may repeat dose after 2 hours. Maximum: 200 mg per 24 hours ubrogepant 2023-0 Yes [id number] 100mg Take 1 Univers 100 mg Tab 7-07 tablet by ity of 00:00: mouth as [place] 00 needed for Medical Other Branch (Headache) for up to 10 doses. If symptoms persist or return, may repeat dose after 2 hours. Maximum: 200 mg per 24 hours ubrogepant 2023-0 Yes [id number] 100mg Take 1 Univers 100 mg Tab 7-07 tablet by ity of 00:00: mouth as [place] 00 needed for Medical Other Branch (Headache) for up to 10 doses. If symptoms persist or return, may repeat dose after 2 hours. Maximum: 200 mg per 24 hours ubrogepant 2023-0 Yes [id number] 100mg Take 1 Univers 100 mg Tab 7-07 tablet by ity of 00:00: mouth as [place] 00 needed for Medical Other Branch (Headache) for up to 10 doses. If symptoms persist or return, may repeat dose after 2 hours. Maximum: 200 mg per 24 hours ubrogepant 2023-0 Yes [id number] 100mg Take 1 Univers 100 mg Tab 7-07 tablet by ity of 00:00: mouth as [place] 00 needed for Medical Other Branch (Headache) for up to 10 doses. If symptoms persist or return, may repeat dose after 2 hours. Maximum: 200 mg per 24 hours ubrogepant 2023-0 Yes [id number] 100mg Take 1 Univers 100 mg Tab 7-07 tablet by ity of 00:00: mouth as [place] 00 needed for Medical Other Branch (Headache) for up to 10 doses. If symptoms persist or return, may repeat dose after 2 hours. Maximum: 200 mg per 24 hours ubrogepant 3-0 Yes [id number] 100mg Take 1 Univers 100 mg Tab 7-07 tablet by ity of 00:00: mouth as [place] 00 needed for Medical Other Branch (Headache) for up to 10 doses. If symptoms persist or return, may repeat dose after 2 hours. Maximum: 200 mg per 24 hours topiramate 2022-0 2022- Yes [id number] Take 1 Univers 25 mg 7-07 07-22 tablet by ity of tablet 00:00: 04:59 mouth 2 [place] 00 :00 (two) Medical times Branch daily for 7 days, THEN 2 tablets 2 (two) times daily for 7 days. topiramate 2022-0 2022- Yes [id number] Take 1 Univers 25 mg 7-07 07-22 tablet by ity of tablet 00:00: 04:59 mouth 2 [place] 00 :00 (two) Medical times Branch daily for 7 days, THEN 2 tablets 2 (two) times daily for 7 days. topiramate 2022-0 2022- Yes [id number] Take 1 Univers 25 mg 7-07 07-22 tablet by ity of tablet 00:00: 04:59 mouth 2 [place] 00 :00 (two) Medical times Branch daily for 7 days, THEN 2 tablets 2 (two) times daily for 7 days. topiramate 2022-0 2022- Yes [id number] Take 1 Univers 25 mg 7-07 07-22 tablet by ity of tablet 00:00: 04:59 mouth 2 [place] 00 :00 (two) Medical times Branch daily for 7 days, THEN 2 tablets 2 (two) times daily for 7 days. topiramate 2022-2022- Yes [id number] Take 1 Univers 25 mg 7-07 07-22 tablet by ity of tablet 00:00: 04:59 mouth 2 [place] 00 :00 (two) Medical times Branch daily for 7 days, THEN 2 tablets 2 (two) times daily for 7 days. topiramate 2022-2022- Yes [id number] Take 1 Univers 25 mg 7-07 07-22 tablet by ity of tablet 00:00: 04:59 mouth 2 [place] 00 :00 (two) Medical times Branch daily for 7 days, THEN 2 tablets 2 (two) times daily for 7 days. topiramate 2022-2022- Yes [id number] Take 1 Univers 25 mg 7-07 07-22 tablet by ity of tablet 00:00: 04:59 mouth 2 [place] 00 :00 (two) Medical times Branch daily for 7 days, THEN 2 tablets 2 (two) times daily for 7 days. topiramate 2022-2022- Yes [id number] Take 1 Univers 25 mg 7-07 07-22 tablet by ity of tablet 00:00: 04:59 mouth 2 [place] 00 :00 (two) Medical times Branch daily for 7 days, THEN 2 tablets 2 (two) times daily for 7 days. topiramate 2022-2022- Yes [id number] Take 1 Univers 25 mg 7-07 07-22 tablet by ity of tablet 00:00: 04:59 mouth 2 [place] 00 :00 (two) Medical times Branch daily for 7 days, THEN 2 tablets 2 (two) times daily for 7 days. topiramate 2022-0 2022- Yes [id number] Take 1 Univers 25 mg 7-07 07-22 tablet by ity of tablet 00:00: 04:59 mouth 2 [place] 00 :00 (two) Medical times Branch daily for 7 days, THEN 2 tablets 2 (two) times daily for 7 days. topiramate 2022- Yes [id number] Take 1 Univers 25 mg 7-07 07-22 tablet by ity of tablet 00:00: 04:59 mouth 2 [place] 00 :00 (two) Medical times Branch daily for 7 days, THEN 2 tablets 2 (two) times daily for 7 days. topiramate 2022- Yes [id number] Take 1 Univers 25 mg 7-07 07-22 tablet by ity of tablet 00:00: 04:59 mouth 2 [place] 00 :00 (two) Medical times Branch daily for 7 days, THEN 2 tablets 2 (two) times daily for 7 days. topiramate 2022-2022- Yes [id number] Take 1 Univers 25 mg 7-07 07-22 tablet by ity of tablet 00:00: 04:59 mouth 2 [place] 00 :00 (two) Medical times Branch daily for 7 days, THEN 2 tablets 2 (two) times daily for 7 days. topiramate 2022-2022- Yes [id number] Take 1 Univers 25 mg 7-07 07-22 tablet by ity of tablet 00:00: 04:59 mouth 2 [place] 00 :00 (two) Medical times Branch daily for 7 days, THEN 2 tablets 2 (two) times daily for 7 days. topiramate 2022- Yes [id number] Take 1 Univers 25 mg 7-07 07-22 tablet by ity of tablet 00:00: 04:59 mouth 2 [place] 00 :00 (two) Medical times Branch daily for 7 days, THEN 2 tablets 2 (two) times daily for 7 days. topiramate 2022- Yes [id number] Take 1 [facility] 25 mg 7-07 07-22 tablet by ity of tablet 00:00: 04:59 mouth 2 [place] 00 :00 (two) Medical times Branch daily for 7 days, THEN 2 tablets 2 (two) times daily for 7 days. topiramate 2022- Yes [id number] Take 1 [facility] 25 mg 7-07 07-22 tablet by ity of tablet 00:00: 04:59 mouth 2 [place] 00 :00 (two) Medical times Branch daily for 7 days, THEN 2 tablets 2 (two) times daily for 7 days. ubrogepant 2023-0 3- No [id number] 100mg Take 1 [facility] 100 mg Tab 02-16 tablet by ity of 00:00: 00:00 mouth as [place] 00 :00 needed for Medical Other Branch (Headache) for up to 10 doses. If symptoms persist or return, may repeat dose after 2 hours. Maximum: 200 mg per 24 hours ubrogepant 2023-0 2023- No [id number] 100mg Take 1 [facility] 100 mg Tab 02-16 tablet by ity of 00:00: 00:00 mouth as [place] 00 :00 needed for Medical Other Branch (Headache) for up to 10 doses. If symptoms persist or return, may repeat dose after 2 hours. Maximum: 200 mg per 24 hours ubrogepant 2023-0 3- No [id number] 100mg Take 1 [facility] 100 mg Tab 02-16 tablet by ity of 00:00: 00:00 mouth as [place] 00 :00 needed for Medical Other Branch (Headache) for up to 10 doses. If symptoms persist or return, may repeat dose after 2 hours. Maximum: 200 mg per 24 hours levothyroxi 2023-0 Yes Jie haines ne 112 mcg 4-29 ity of tablet 00:00: [place] [facility] levothyroxi 2023-0 Yes Jie haines ne 112 mcg 4-29 ity of tablet 00:00: [place] 00 Medical Branch levothyroxi 2023-0 Yes Jie haines ne 112 mcg 4-29 ity of tablet 00:00: [place] 00 Medical Branch levothyroxi 2023-0 Yes Jie haines ne 112 mcg 4-29 ity of tablet 00:00: [place] 00 Medical Branch levothyroxi 2023-0 Yes Jie haines ne 112 mcg 4-29 ity of tablet 00:00: [place] 00 Medical Branch levothyroxi 2023-0 Yes Jie haines ne 112 mcg 4-29 ity of tablet 00:00: [place] 00 Medical Branch levothyroxi 2023-0 Yes Jie haines ne 112 mcg 4-29 ity of tablet 00:00: [place] 00 Medical Branch levothyroxi 2023-0 Yes Jie haines ne 112 mcg 4-29 ity of tablet 00:00: [place] 00 Medical Branch levothyroxi 2023-0 Yes Univer s ne 112 mcg 4-29 ity of tablet 00:00: [place] [facility] levothyroxi 2022-0 Yes Univer s ne 112 mcg 4-29 ity of tablet 00:00: [place] [facility] levothyroxi 2022-0 Yes Univer s ne 112 mcg 4-29 ity of tablet 00:00: [place] [facility] levothyroxi 2022-0 Yes Univer s ne 112 mcg 4-29 ity of tablet 00:00: [place] [facility] levothyroxi 2022-0 Yes Univer s ne 112 mcg 4-29 ity of tablet 00:00: [place] [facility] levothyroxi 0 Yes Univer s ne 112 mcg 4-29 ity of tablet 00:00: [place] [facility] levothyroxi 2022-0 Yes Univer s ne 112 mcg 4-29 ity of tablet 00:00: [place] [facility] levothyroxi 2022-0 Yes Univer s ne 112 mcg 4-29 ity of tablet 00:00: [place] [facility] levothyroxi 2022-0 Yes Univer s ne 112 mcg 4-29 ity of tablet 00:00: [address] TAKE 2021-08 No 100 TABLET AT 2-22 BEDTIME. 00:00: 00 TAKE 2021-08 No 300 TABLET 2-22 TWICE 00:00: DAILY. 00 TAKE 1 2021-08 No 300 TABLET 2-22 EVERY 00:00: MORNING. 00 TAKE 2021-08 No 25 TABLET 2-21 DAILY. 00:00: 00 CHLORTHALID 2021- No 25 ONE 25 MG 2-21 00:00: 00 TAKE 1 2021-08 No TABLET 2-15 TWICE 00:00: DAILY. 00 TAKE 1 2021-08 No TABLET 3 2-15 TIMES 00:00: DAILY. 00 TAKE 1 2021-08 No TABLET 2-15 DAILY. 00:00: 00 TAKE 1 2021- No TABLET AT 2-15 BEDTIME. 00:00: 00 Dose 2021-1 No Unknown 2-15 00:00: 00 Dose 2021-1 No Unknown 2-15 00:00: 00 Dose 2021-1 No Unknown 2-15 00:00: 00 Dose 2021- No Unknown 2-15 00:00: 00 TAKE 1 2021- No TABLET BY 2-15 MOUTH EVERY 00:00: 8 HOURS 00 NEEDED FOR MUSCLE SPASMS Dose 2021- No Unknown 2-15 00:00: 00 Dose 2021- No Unknown 2-15 00:00: 00 Dose 2021- No Unknown 2-15 00:00: 00 Dose 2021- No Unknown 2-15 00:00: 00 Dose 2021- No Unknown 2-15 00:00: 00 Dose 2021- No Unknown 2-15 00:00: 00 Dose 2021- No Unknown 2-15 00:00: 00 Dose 2021- No Unknown 2-15 00:00: 00 Dose 2021- No Unknown 2-15 00:00: 00 Dose 2021- No Unknown 2-15 00:00: 00 Dose 2021- No Unknown 2-15 00:00: 00 Dose 2021- No Unknown 2-15 00:00: 00 Dose 2021- No Unknown 2-15 00:00: 00 Dose 2021- No Unknown 2-15 00:00: 00 Dose 2021- No Unknown 2-15 00:00: 00 Dose 2021- No Unknown 2-15 00:00: 00 Dose 2021- No Unknown 2-15 00:00: 00 Dose 2021- No Unknown 2-15 00:00: 00 Dose 2021- No Unknown 2-15 00:00: 00 Dose 2021- No Unknown 2-15 00:00: 00 Dose 2021- No Unknown 2-15 00:00: 00 Dose 2021- No Unknown 2-15 00:00: 00 Dose 2021- No Unknown 2-15 00:00: 00 Dose 2021- No Unknown 2-15 00:00: 00 Dose 2021- No Unknown 2-15 00:00: 00 Dose 2021- No Unknown 2-15 00:00: 00 TAKE 1 2021- No TABLET 1-16 DAILY. 00:00: 00 TAKE 1 2021- No TABLET 1-16 DAILY. 00:00: 00 Dose 2021-08 No Unknown 1-16 00:00: 00 TAKE 1 2021- No 112 TABLET 0-27 DAILY. 00:00: 00 Dose 2021-0 No Unknown 8-08 00:00: 00 Dose 2022-0 No Unknown 8-08 00:00: 00 Dose 2022-0 [...] 8 00:00: 00 Dose 2022-0 No Unknown 03-15 00:00: 00 Dose 2022-0 No Unknown 8 00:00: 00 Wellbutrin 2-0 No 1mg XL 300 mg 03-14 24 hr 00:00: tablet, 00 extended release [...] 00 TAKE 1 2-0 No TABLET AT 8 BEDTIME. 00:00: 00 Dose 2022-0 No Unknown 8 00:00: 00 Dose 2022-0 No Unknown 8 00:00: 00 Dose 2022-0 No Unknown 8 00:00: 00 Dose 2022-0 No Unknown 8 00:00: 00 Dose 2022-0 No Unknown 8 00:00: 00 Dose 2022-0 No Unknown 8- 00:00: 00 Dose 2022-0 No Unknown 8- 00:00: 00 Dose 2022-0 No Unknown 8 00:00: 00 Wellbutrin 2022-0 No 1mg XL 300 mg 8- 24 hr 00:00: tablet, 00 extended release Trileptal 2022-0 No 1mg 150 mg 8-02 tablet 00:00: 00 buspirone 2022-0 No 1mg 10 mg 8-02 tablet 00:00: 00 Seroquel 2022-0 No 1mg 100 mg 8-02 tablet 00:00: 00 Dose 2022-0 No Unknown 8 00:00: 00 Dose 2022-0 No Unknown 8 00:00: 00 Dose 2022-0 No Unknown 8- 00:00: 00 Dose 2022-0 No Unknown 8- 00:00: 00 Dose 2022-0 No Unknown 8- 00:00: 00 Dose 2022-0 No Unknown 8- 00:00: 00 Wellbutrin 2022-0 No 1mg XL 300 mg 8- 24 hr 00:00: tablet, 00 extended release Trileptal 2-0 No 1mg 150 mg 8-02 tablet 00:00: 00 buspirone 2022-0 No 1mg 10 mg 8-02 tablet 00:00: 00 Dose 2022-0 No Unknown 8 00:00: 00 Dose 2022-0 No Unknown 8- 00:00: 00 Dose 2022-0 No Unknown 8- 00:00: 00 Dose 2022-0 No Unknown 8- 00:00: 00 Dose 2022-0 No Unknown 8 00:00: 00 Dose 2022-0 No Unknown 8- 00:00: 00 Dose 2022-0 No Unknown 8 00:00: 00 Dose 2022-0 No Unknown 7 00:00: 00 Dose 2022-0 No Unknown 7 00:00: 00 Dose 2022-0 No Unknown 7 00:00: 00 Dose 2022-0 No Unknown 7- 00:00: 00 Dose 2022-0 No Unknown 7 00:00: 00 Dose 2022-0 No Unknown 7 00:00: 00 Dose 2022-0 No Unknown 7- [...] 7-21 00:00: 00 Dose 2022-0 No Unknown 7- [...] 2022-0 No Unknown 7-20 00:00: 00 Dose 2-0 No Unknown 7-20 00:00: 00 Dose 2-0 No Unknown 7-20 00:00: 00 Wellbutrin 2-0 No 1mg XL 300 mg 7-19 24 hr 00:00: tablet, 00 extended release buspirone 2-0 No 1mg 10 mg 7-19 tablet 00:00: 00 Dose 2-0 No Unknown 7-19 00:00: 00 Dose 2-0 No Unknown 7-19 00:00: 00 Dose 2-0 No Unknown 7-19 00:00: 00 Dose 2-0 No Unknown 7-19 00:00: 00 Dose 2022-0 No Unknown 7-19 00:00: 00 Dose 2-0 No Unknown 7-19 00:00: 00 TAKE 1 2-0 No TABLET AT 7-19 BEDTIME. 00:00: 00 Dose 2022-0 No Unknown 7-19 [...] 6-30 00:00: 00 Dose 2022-0 No Unknown 6 00:00: 00 Dose 2022-0 No Unknown 6 00:00: 00 Dose 2022-0 No Unknown 6 00:00: 00 Dose 2022-0 No Unknown 6 00:00: 00 Dose 2022-0 No Unknown 6 00:00: 00 Dose 2022-0 No Unknown 6 00:00: 00 Dose 2022-0 No Unknown 6 00:00: 00 Dose 2022-0 No Unknown 6 00:00: 00 Dose 2022-0 No Unknown 6 00:00: 00 Dose 2022-0 No Unknown 6 00:00: 00 levothyroxi 2022-0 No 1mcg ne 112 mcg 6-09 tablet 00:00: 00 Dose 2022-0 No Unknown 6 [...] 00:00: tablet, 00 extended release Celexa 20 2022-0 No 1mg mg tablet 5-03 00:00: 00 [...] 2022-0 No Unknown 2-08 00:00: 00 levothyroxi 2-0 [...] 2022-0 No Unknown 1-11 00:00: 00 Wellbutrin 2-0 No 1mg XL 150 mg 1-11 24 hr 00:00: tablet, 00 extended release Dose 2-0 No Unknown 1-11 00:00: 00 Dose 2022-0 [...] 2-0 No Unknown 1-11 00:00: 00 Dose 1-1 No Unknown 2-20 00:00: 00 Dose 1-1 No Unknown 2-20 00:00: 00 Dose 1-1 No Unknown 2-20 00:00: 00 Zofran 4 mg 1-1 No 1mg tablet 2-20 00:00: 00 Dose 1-1 No Unknown 2-20 00:00: 00 omeprazole 1-1 No 1mg 40 mg 2-20 capsule,del 00:00: ayed 00 release Zofran 4 mg 1-1 No 1mg tablet 2-20 00:00: 00 Dose 1-1 No Unknown 2-20 00:00: 00 omeprazole 2020-1 No 1mg 40 mg 2-20 capsule,del 00:00: ayed 00 release Zofran 4 mg 2020-1 No 1mg tablet 2-20 00:00: 00 Dose 2020-08 No Unknown 2-20 00:00: 00 omeprazole 2020-08 No 1mg 40 mg 2-20 capsule,del 00:00: ayed 00 release Zofran 4 mg 2020-08 No 1mg tablet 2-20 00:00: 00 Dose 2020-08 No Unknown 2-20 00:00: 00 omeprazole 2020-08 No 1mg 40 mg 2-20 capsule,del 00:00: [...] 500mg 500 mg, U nivers oL 2-15 -15 Oral, ity of (ROBAXIN) 19:30: 18:29 [place]CE, [place] :[place] dose, On Medic al mg Wed Branch 07/27/21 at 1330, Routine ketorolac 2020-08 No 30mg 30 mg, Unive rs (TORADOL) [...] Medical Wed Branch 07/27/21 at 1330, Routine Dose 2020-08 No Unknown 2-15 00:00: 00 [...] Dose 2020-08 No Unknown 2-15 00:00: 00 famotidine 2020-08 Yes [id number] 40mg Take 1 [facility] (PEPCID) 40 2-15 tablet by ity of mg tablet 00:00: mouth 00 daily. Medical Branch ibuprofen 2020-08 Yes [id number] 600mg Take 1 U nivers 600 mg 2-15 tablet by ity of tablet 00:00: mouth [place] 00 every 6 Medical (six) Branch hours as needed for Pain (scale 4-6). methocarbam 2020-08 Yes [id number] 500mg Take 1 [facility] oL 500 mg 2-15 tablet by ity o f tablet 00:00: mouth 00 (four) Medical times Branch daily. famotidine 2020-08 Yes [id number] 40mg Take 1 [facility] (PEPCID) 40 2-15 tablet by ity of mg tablet 00:00: mouth [place] 00 daily. Medical Branch ibuprofen 2020-08 Yes [id number] 600mg Take 1 U nivers 600 mg 2-15 tablet by ity of tablet 00:00: mouth [place] 00 every 6 Medical (six) Branch hours as needed for Pain (scale 4-6). methocarbam 2020-08 Yes [id number] 500mg Take 1 [facility] oL 500 mg 2-15 tablet by ity o f tablet 00:00: mouth 4 00 (four) Medical times Branch daily. famotidine 2020-08 Yes [id number] 40mg Take 1 [facility] (PEPCID) 40 2-15 tablet by ity of mg tablet 00:00: mouth [place] 00 daily. Medical Branch ibuprofen 2020-08 Yes [id number] 600mg Take 1 U nivers 600 mg 2-15 tablet by ity of tablet 00:00: mouth [place] 00 every 6 Medical (six) Branch hours as needed for Pain (scale 4-6). methocarbam 2020-08 Yes [id number] 500mg Take 1 [facility] oL 500 mg 2-15 tablet by ity o f tablet 00:00: mouth (four) Medical times Branch daily. famotidine 2020-08 Yes [id number] 40mg Take 1 [facility] (PEPCID) 40 2-15 tablet by ity of mg tablet 00:00: mouth [place] 00 daily. Medical Branch ibuprofen 2020-08 Yes [id number] 600mg Take 1 U nivers 600 mg 2-15 tablet by ity of tablet 00:00: mouth [place] 00 every 6 Medical (six) Branch hours as needed for Pain (scale 4-6). methocarbam 2020-08 Yes [id number] 500mg Take 1 [facility] oL 500 mg 2-15 tablet by ity o f tablet 00:00: mouth (four) Medical times Branch daily. famotidine 2020-08 Yes [id number] 40mg Take 1 [facility] (PEPCID) 40 2-15 tablet by ity of mg tablet 00:00: mouth [place] 00 daily. Medical Branch ibuprofen 2020-08 Yes [id number] 600mg Take 1 U nivers 600 mg 2-15 tablet by ity of tablet 00:00: mouth [place] 00 every 6 Medical (six) Branch hours as needed for Pain (scale 4-6). methocarbam 2020-08 Yes [id number] 500mg Take 1 [facility] oL 500 mg 2-15 tablet by ity o f tablet 00:00: mouth 4 (four) Medical times Branch daily. famotidine 2020-08 Yes [id number] 40mg Take 1 [facility] (PEPCID) 40 2-15 tablet by ity of mg tablet 00:00: mouth [place] 00 daily. Medical Branch ibuprofen 2020-08 Yes [id number] 600mg Take 1 U nivers 600 mg 2-15 tablet by ity of tablet 00:00: mouth [place] 00 every 6 Medical (six) Branch hours as needed for Pain (scale 4-6). methocarbam 2020-08 Yes [id number] 500mg Take 1 [facility] oL 500 mg 2-15 tablet by ity o f tablet 00:00: mouth 4 [place] 00 (four) Medical times Branch daily. famotidine 2020-08 Yes [id number] 40mg Take 1 [facility] (PEPCID) 40 2-15 tablet by ity of mg tablet 00:00: mouth [place] 00 daily. Medical Branch ibuprofen 2020-08 Yes [id number] 600mg Take 1 U nivers 600 mg 2-15 tablet by ity of tablet 00:00: mouth [place] 00 every 6 Medical (six) Branch hours as needed for Pain (scale 4-6). methocarbam 2020-08 Yes [id number] 500mg Take 1 [facility] oL 500 mg 2-15 tablet by ity o f tablet 00:00: mouth 4 [place] 00 (four) Medical times Branch daily. famotidine 2020-08- No [id number] 40mg Take 1 [facility] (PEPCID) 40 2-15 07-07 tablet by it y of mg tablet 00:00: 00:00 mouth [place] 00 :00 daily. Medical Branch ibuprofen 2020-08- No [id number] 600mg Take 1 [facility] 600 mg 2-15 07-07 tablet by ity of tablet 00:00: 00:00 mouth [place] 00 :00 every 6 Medical (six) Branch hours as needed for Pain (scale 4-6). methocarbam 2020-08- No [id number] 500mg Take 1 [facility] oL 500 mg 2-15 07-07 tablet by ity of tablet 00:00: 00:00 mouth 4 [place] 00 :00 (four) Medical times Branch daily. famotidine 2020-083- No [id number] 40mg Take 1 [facility] (PEPCID) 40 2-15 07-07 tablet by it y of mg tablet 00:00: 00:00 mouth [place] 00 :00 daily. Medical Branch ibuprofen 2020-083- No [id number] 600mg Take 1 [facility] 600 mg 2-15 07-07 tablet by ity of tablet 00:00: 00:00 mouth [place] 00 :00 every 6 Medical (six) Branch hours as needed for Pain (scale 4-6). methocarbam 2020-083- No [id number] 500mg Take 1 [facility] oL 500 mg 2-15 07-07 tablet by ity of tablet 00:00: 00:00 mouth 4 [place] 00 :00 (four) Medical times Branch daily. famotidine 2020-083- No [id number] 40mg Take 1 [facility] (PEPCID) 40 2-15 -07 tablet by it y of mg tablet 00:00: 00:00 mouth [place] 00 :00 daily. Medical Branch ibuprofen 2020-083- No [id number] 600mg Take 1 [facility] 600 mg 2-15 -07 tablet by ity of tablet 00:00: 00:00 mouth [place] 00 :00 every 6 Medical (six) Branch hours as needed for Pain (scale 4-6). methocarbam 2020-083- No [id number] 500mg Take 1 [facility] oL 500 mg 2-15 - tablet by ity of tablet 00:00: 00:00 mouth 4 [place] 00 :00 (four) Medical times Branch daily. famotidine 2020-083- No [id number] 40mg Take 1 [facility] (PEPCID) 40 2-15 - tablet by it y of mg tablet 00:00: 00:00 mouth [place] 00 :00 daily. Medical Branch ibuprofen 2020-083- No [id number] 600mg Take 1 [facility] 600 mg 2-15 -07 tablet by ity of tablet 00:00: 00:00 mouth [place] 00 :00 every 6 Medical (six) Branch hours as needed for Pain (scale 4-6). methocarbam 2020-083- No [id number] 500mg Take 1 [facility] oL 500 mg 2-15 -07 tablet by ity of tablet 00:00: 00:00 mouth 4 [place] 00 :00 (four) Medical times Branch daily. famotidine 2020-083- No [id number] 40mg Take 1 [facility] (PEPCID) 40 2-15 -07 tablet by it y of mg tablet 00:00: 00:00 mouth [place] 00 :00 daily. Medical Branch ibuprofen 2020-083- No [id number] 600mg Take 1 [facility] 600 mg 2-15 -07 tablet by ity of tablet 00:00: 00:00 mouth [place] 00 :00 every 6 Medical (six) Branch hours as needed for Pain (scale 4-6). methocarbam 2020-083- No [id number] 500mg Take 1 [facility] oL 500 mg 2-15 -07 tablet by ity of tablet 00:00: 00:00 mouth 4 [place] 00 :00 (four) Medical times Branch daily. famotidine 2020-08- No [id number] 40mg Take 1 [facility] (PEPCID) 40 2-15 -07 tablet by it y of mg tablet 00:00: 00:00 mouth [place] 00 :00 daily. Medical Branch ibuprofen 2020-08- No [id number] 600mg Take 1 [facility] 600 mg 2-15 -07 tablet by ity of tablet 00:00: 00:00 mouth [place] 00 :00 every 6 Medical (six) Branch hours as needed for Pain (scale 4-6). methocarbam 2020-08- No [id number] 500mg Take 1 [facility] oL 500 mg 2-15 - tablet by ity of tablet 00:00: 00:00 mouth 4 [place] 00 :00 (four) Medical times Branch daily. famotidine 2020-08- No [id number] 40mg Take 1 [facility] (PEPCID) 40 2-24 02- tablet by it y of mg tablet 00:00: 00:00 mouth [place] 00 :00 daily. Medical Branch ibuprofen 2020-08- No [id number] 600mg Take 1 [facility] 600 mg 2-24 02- tablet by ity of tablet 00:00: 00:00 mouth [place] 00 :00 every 6 Medical (six) Branch hours as needed for Pain (scale 4-6). methocarbam 2020-08- No [id number] 500mg Take 1 [facility] oL 500 mg 2-15 - tablet by ity of tablet 00:00: 00:00 mouth 4 [place] 00 :00 (four) Medical times Branch daily. famotidine 2020-08- No [id number] 40mg Take 1 [facility] (PEPCID) 40 2-15 -07 tablet by it y of mg tablet 00:00: 00:00 mouth [place] 00 :00 daily. Medical Branch ibuprofen 2020-08- No [id number] 600mg Take 1 [facility] 600 mg 2-15 -07 tablet by ity of tablet 00:00: 00:00 mouth [place] 00 :00 every 6 Medical (six) Branch hours as needed for Pain (scale 4-6). methocarbam 2020-08- No [id number] 500mg Take 1 [facility] oL 500 mg 2-15 -07 tablet by ity of tablet 00:00: 00:00 mouth 4 [place] 00 :00 (four) Medical times Branch daily. famotidine 2020-08- No [id number] 40mg Take 1 [facility] (PEPCID) 40 2-15 -07 tablet by it y of mg tablet 00:00: 00:00 mouth [place] 00 :00 daily. Medical Branch ibuprofen 2020-08- No [id number] 600mg Take 1 [facility] 600 mg 2-15 -07 tablet by ity of tablet 00:00: 00:00 mouth [place] 00 :00 every 6 Medical (six) Branch hours as needed for Pain (scale 4-6). methocarbam 2020-08- No [id number] 500mg Take 1 [facility] oL 500 mg 2-15 - tablet by ity of tablet 00:00: 00:00 mouth 4 [place] 00 :00 (four) Medical times Branch daily. famotidine 2020-08- No [id number] 40mg Take 1 [facility] (PEPCID) 40 2-15 -07 tablet by it y of mg tablet 00:00: 00:00 mouth [place] 00 :00 daily. Medical Branch ibuprofen 2020-08- No [id number] 600mg Take 1 [facility] 600 mg 2-15 -07 tablet by ity of tablet 00:00: 00:00 mouth [place] 00 :00 every 6 Medical (six) Branch hours as needed for Pain (scale 4-6). methocarbam 2020-08- No [id number] 500mg Take 1 [facility] oL 500 mg 2-15 -07 tablet by ity of tablet 00:00: 00:00 mouth 4 [place] 00 :00 (four) Medical times Branch daily. sertraline 2020-08 No 15mg 100 mg 1-18 [...] at 2345, Routine Dose 2020-08 No Unknown - 00:00: 00 Dose 2020-08 No Unknown - 00:00: 00 Dose 2020-08 No Unknown 1- 00:00: 00 Abilify 2 2020-08 No 1mg mg tablet - 00:00: 00 Dose 2020-08 No Unknown - 00:00: 00 Dose 2020-08 No Unknown - 00:00: 00 Dose 2020-08 No Unknown - 00:00: 00 Abilify 2 2020-08 No 1mg mg tablet - 00:00: 00 Dose 2020-08 No Unknown - 00:00: 00 Dose 2020-08 No Unknown - 00:00: 00 Dose 2020-08 No Unknown 1- 00:00: 00 Abilify 2 2020-08 No 1mg mg tablet -04 00:00: 00 Dose 2021-1 No Unknown 1-04 00:00: 00 Dose 1-1 No Unknown 1- 00:00: 00 Dose 1-1 No Unknown 1-04 00:00: 00 Abilify 2 2020-1 No 1mg [...] 2020-0 No Unknown 9-20 00:00: 00 sertraline 1-0 No 1mg 50 mg 9-20 tablet 00:00: 00 Dose 2020-0 No Unknown 9-20 00:00: 00 sertraline 1-0 No 1mg 50 mg 9-20 tablet 00:00: 00 Dose 1-0 No Unknown 9-20 00:00: 00 sertraline 1-0 No 1mg 50 mg 9-20 tablet 00:00: 00 Dose 1-0 No Unknown 9-20 00:00: 00 sertraline 1-0 No 1mg 50 mg 9-20 tablet 00:00: 00 Dose 2020-0 No Unknown 9-20 00:00: 00 levonorgest 2020-0 2020- No [id number] 1{devic [facility] reL 526 05-26 100 e} ity of (LILETTA) 21:00: 21:00 [place] IUD 1 00 :00 [facility] ibuprofen 2020-0 2020- No [id number] 800mg Univers (IBU) 01-05 100 ity of tablet 800 21:00: 21:00 [place] mg 00 :00 [facility] ibuprofen 2020- No [id number] 800mg 800 mg, Univers (IBU) 01-05 100 Oral, ity of tablet 800 21:00: 21:00 ONCE, 1 [place] mg 00 :00 dose, [facility] 01/05/21 at Branch 1600, Routine levonorgest 2020- No [id number] 1{devic 1 Device, [facility] reL 01-05 100 e} Intrauteri ity of (LILETTA) 21:00: 21:00 [place] :00 1 dose, [facility] 01/05/21 at 1600, Routine levonorgest 2020- No [id number] 1{devic [facility] reL 01-05 100 e} ity of (LILETTA) 21:00: 21:00 [place] IUD 1 00 :00 [facility] ibuprofen 2020- No [id number] 800mg [facility] (IBU) 01-05 100 ity of tablet 800 21:00: 21:00 [place] mg 00 :00 [facility] ibuprofen 2020- No [id number] 800mg 800 mg, Univers (IBU) 01-05 100 Oral, ity of tablet 800 21:00: 21:00 ONCE, 1 [place] mg 00 :00 dose, [facility] 01/05/21 at Branch 1600, Routine levonorgest 2020- No [id number] 1{devic 1 Device, [facility] reL 01-05 100 e} Intrauteri ity of (LILETTA) 21:00: 21:00 [place] 1 00 :00 1 dose, [facility] 01/05/21 at 1600, Routine levonorgest 2020- No [id number] 1{devic [facility] reL 01-05 100 e} ity of (LILETTA) 21:00: 21:00 [place] IUD 1 00 :00 [facility] ibuprofen 2020- No [id number] 800mg [facility] (IBU) 01-05 100 ity of tablet 800 21:00: 21:00 [place] mg 00 :00 Medical Branch ibuprofen 2020- No [id number] 800mg 800 mg, Univers (IBU) 01-05 100 Oral, ity of tablet 800 21:00: 21:00 ONCE, 1 [place] mg 00 :00 dose, Wed [facility] 01/05/21 at Branch 1600, Routine levonorgest 2020- No [id number] 1{devic 1 Device, [facility] reL 01-05 100 e} Intrauteri ity of (LILETTA) 21:00: 21:00 [place] 00 :00 1 dose, [facility] 01/05/21 at 1600, Routine levonorgest 2026- No by [facility] [place] [facility] 01-05 Intrauteri ity of (LILETTA 00:00: 04:59 ne route. [place] INTRAUTERIN 00 :00 Medical E) Branch levonorgest 2026- No by [facility] [place] [facility] 01-05 Intrauteri ity of (LILETTA 00:00: 04:59 ne route. [place] INTRAUTERIN 00 :00 Medical E) Branch levonorgest 2026- No by [facility] [place] [facility] 01-05 Intrauteri ity of (LILETTA 00:00: 04:59 ne route. [place] INTRAUTERIN 00 :00 Medical E) Branch levonorgest 2026- No by [facility] [place] [facility] 01-05 Intrauteri ity of (LILETTA 00:00: 04:59 ne route. [place] INTRAUTERIN 00 :00 Medical E) Branch levonorgest 2026- No by [facility] [place] [facility] 01-05 Intrauteri ity of (LILETTA 00:00: 04:59 ne route. [place] INTRAUTERIN 00 :00 Medical E) Branch levonorgest 2026- No by [facility] [place] [facility] 01-05 Intrauteri ity of (LILETTA 00:00: 04:59 ne route. [place] INTRAUTERIN 00 :00 Medical E) Branch levonorgest 2026- No by [facility] [place] [facility] 01-05- Intrauteri ity of (LILETTA 00:00: 04:59 ne route. [place] INTRAUTERIN 00 :00 Medical E) Branch levonorgest 2020-0 2026- No by [facility] [place] [facility] 01-05 Intrauteri ity of (LILETTA 00:00: 04:59 ne route. [place] INTRAUTERIN 00 :00 Medical E) Branch levonorgest 2020-0 2026- No by [facility] [place] [facility] 01-05- Intrauteri ity of (LILETTA 00:00: 04:59 ne route. [place] INTRAUTERIN 00 :00 Medical E) Branch levonorgest 2020-0 2026- No by [facility] [place] [facility] 01-05 Intrauteri ity of (LILETTA 00:00: 04:59 ne route. [place] INTRAUTERIN 00 :00 Medical E) Branch levonorgest 2020-0 2026- No by [facility] [place] [facility] 01-05 Intrauteri ity of (LILETTA 00:00: 04:59 ne route. [place] INTRAUTERIN 00 :00 Medical E) Branch levonorgest 2020-0 2026- No by [facility] [place] [facility] 01-05- Intrauteri ity of (LILETTA 00:00: 04:59 ne route. [place] INTRAUTERIN 00 :00 Medical E) Branch levonorgest 2020-0 2022- No by [facility] [place] [facility] 01-05-07 Intrauteri ity of (LILETTA 00:00: 00:00 ne route. [place] INTRAUTERIN 00 :00 Medical E) Branch levonorgest 2020-0 2022- No by [facility] [place] [facility] 5 07-07 Intrauteri ity of (LILETTA 00:00: 00:00 ne route. [place] INTRAUTERIN 00 :00 Medical E) Branch levonorgest 2020-0 2022- No by [facility] [place] [facility] 01-05-07 Intrauteri ity of (LILETTA 00:00: 00:00 ne route. [place] INTRAUTERIN 00 :00 Medical E) Branch levonorgest 2020-0 2022- No by [facility] [place] [facility] 01-05 07-07 Intrauteri ity of ( 00:00: 00:00 ne route. [place] INTRAUTERIN 00 :00 Medical E) Branch levonorgest 2020-0 2022- No by [facility] rel 01-05 07-07 Intrauteri ity of ( 00:00: 00:00 ne route. [place] INTRAUTERIN 00 :00 Medical E) Branch levonorgest 2020-0 2022- No by [facility] rel 01-05 07-07 Intrauteri ity of (PLACIDO 00:00: 00:00 ne route. [place] as INTRAUTERIN 00 :00 Medical E) Branch levonorgest 2020-0 2022- No by [facility] rel 5 07-07 Intrauteri ity of (PLACIDO 00:00: 00:00 ne route. [place] as INTRAUTERIN 00 :00 Medical E) Branch levonorgest 2020-0 2022- No by [facility] rel 01-05 07-07 Intrauteri ity of (STAR 00:00: 00:00 ne route. [place] as INTRAUTERIN 00 :00 Medical E) Branch levonorgest 2020-0 2022- No by [facility] rel 01-05 07-07 Intrauteri ity of (STAR 00:00: 00:00 ne route. [place] as INTRAUTERIN 00 :00 Medical E) Branch levonorgest 2020-0 2022- No by [facility] rel 5 07-07 Intrauteri ity of (STAR 00:00: 00:00 ne route. [place] as INTRAUTERIN 00 :00 [...] 5-03 mg capsule 00:00: 00 mupirocin 2 1-0 No 1% [...] 00:00: 00 No known [facility] No [facility] medications it[facility] No known No Univers medications ity of [facility] No known No Univers medications ity of [facility] Immunizations Ordered Filled Immunization Date Status Comments [facility] e Immunization Name Name SARS-COV-2 COVID-19 2020-12-02 Completed Unive rsity of PFIZER VACCINE 00:00:00 [facility] SARS-COV-2 COVID-19 2020-12-02 Completed Unive rsity of PFIZER VACCINE 00:00:00 [facility] SARS-COV-2 COVID-19 2020-12-02 Completed Unive rsity of PFIZER VACCINE 00:00:00 [facility] SARS-COV-2 COVID-19 2020-12-02 Completed Unive rsity of PFIZER VACCINE 00:00:00 [facility] SARS-COV-2 COVID-19 2020-12-02 Completed Unive rsity of PFIZER VACCINE 00:00:00 [facility] SARS-COV-2 COVID-19 2020-12-02 Completed Unive rsity of PFIZER VACCINE 00:00:00 [facility] SARS-COV-2 COVID-19 2020-12-02 Completed Unive rsity of PFIZER VACCINE 00:00:00 [facility] SARS-COV-2 COVID-19 2020-12-02 Completed Unive rsity of PFIZER VACCINE 00:00:00 [facility] SARS-COV-2 COVID-19 2020-12-02 Completed Unive rsity of PFIZER VACCINE 00:00:00 [facility] SARS-COV-2 COVID-19 2020-12-02 Completed Unive rsity of PFIZER VACCINE 00:00:00 [facility] SARS-COV-2 COVID-19 2020-12-02 Completed Unive rsity of PFIZER VACCINE 00:00:00 [facility] SARS-COV-2 COVID-19 2020-12-02 Completed Unive rsity of PFIZER VACCINE 00:00:00 [facility] SARS-COV-2 COVID-19 2020-12-02 Completed Unive rsity of PFIZER VACCINE 00:00:00 [facility] SARS-COV-2 COVID-19 2020-12-02 Completed Unive rs[facility] of PFIZER VACCINE 00:00:00 [place] [facility] SARS-COV-2 COVID-19 2020-12-02 Completed Unive rsity of PFIZER VACCINE 00:00:00 [facility] SARS-COV-2 COVID-19 2020-12-02 Completed Unive rsity of PFIZER VACCINE 00:00:00 [facility] SARS-COV-2 COVID-19 2020-12-02 Completed Unive rsity of PFIZER VACCINE 00:00:00 [facility] SARS-COV-2 COVID-19 2020-12-02 Completed Unive rsity of PFIZER VACCINE 00:00:00 [facility] SARS-COV-2 COVID-19 2020-12-02 Completed Unive rsity of PFIZER VACCINE 00:00:00 [facility] SARS-COV-2 COVID-19 2020-12-02 Completed Unive rsity of PFIZER VACCINE 00:00:00 [facility] SARS-COV-2 COVID-19 2020-12-02 Completed Unive rsity of PFIZER VACCINE 00:00:00 [facility] SARS-COV-2 COVID-19 2020-12-02 Completed Unive rsity of PFIZER VACCINE 00:00:00 [facility] SARS-COV-2 COVID-19 2020-12-02 Completed Unive rsity of PFIZER VACCINE 00:00:00 [facility] SARS-COV-2 COVID-19 2020-12-02 Completed Unive rsity of PFIZER VACCINE 00:00:00 [facility] SARS-COV-2 COVID-19 2020-12-02 Completed Unive rsity of PFIZER VACCINE 00:00:00 [facility] SARS-COV-2 COVID-19 2020-12-02 Completed Unive rsity of PFIZER VACCINE 00:00:00 [facility] SARS-COV-2 COVID-19 2020-12-02 Completed Unive rsity of PFIZER VACCINE 00:00:00 [facility] SARS-COV-2 COVID-19 2020-12-02 Completed Unive rsity of PFIZER VACCINE 00:00:00 [facility] SARS-COV-2 COVID-19 2020-12-02 Completed Unive rsity of PFIZER VACCINE 00:00:00 [facility] SARS-COV-2 COVID-19 2020-12-02 Completed Unive rsity of PFIZER VACCINE 00:00:00 [facility] SARS-COV-2 COVID-19 2020-12-02 Completed Unive rsity of PFIZER VACCINE 00:00:00 [facility] SARS-COV-2 COVID-19 2020-12-02 Completed Unive rsity of PFIZER VACCINE 00:00:00 [facility] SARS-COV-2 COVID-19 2020-12-02 Completed Unive rsity of PFIZER VACCINE 00:00:00 [facility] SARS-COV-2 COVID-19 2020-12-02 Completed Unive rsity of PFIZER VACCINE 00:00:00 [facility] SARS-COV-2 COVID-19 2020-12-02 Completed Unive rsity of PFIZER VACCINE 00:00:00 [facility] SARS-COV-2 COVID-19 2020-12-02 Completed Unive rsity of PFIZER VACCINE 00:00:00 [facility] SARS-COV-2 COVID-19 2020-12-02 Completed Unive rsity of PFIZER VACCINE 00:00:00 [facility] SARS-COV-2 COVID-19 2020-11-09 Completed Unive rsity of PFIZER VACCINE 00:00:00 [facility] SARS-COV-2 COVID-19 2020-11-09 Completed Unive rsity of PFIZER VACCINE 00:00:00 [facility] SARS-COV-2 COVID-19 2020-11-09 Completed Unive rsity of PFIZER VACCINE 00:00:00 [facility] SARS-COV-2 COVID-19 2020-11-09 Completed Unive rsity of PFIZER VACCINE 00:00:00 [facility] SARS-COV-2 COVID-19 2020-11-09 Completed Unive rsity of PFIZER VACCINE 00:00:00 [facility] SARS-COV-2 COVID-19 2020-11-09 Completed Unive rsity of PFIZER VACCINE 00:00:00 [facility] SARS-COV-2 COVID-19 2020-11-09 Completed Unive rsity of PFIZER VACCINE 00:00:00 [facility] SARS-COV-2 COVID-19 2020-11-09 Completed Unive rsity of PFIZER VACCINE 00:00:00 [facility] SARS-COV-2 COVID-19 2020-11-09 Completed Unive rsity of PFIZER VACCINE 00:00:00 [facility] SARS-COV-2 COVID-19 2020-11-09 Completed Unive rsity of PFIZER VACCINE 00:00:00 [facility] SARS-COV-2 COVID-19 2020-11-09 Completed Unive rsity of PFIZER VACCINE 00:00:00 [facility] SARS-COV-2 COVID-19 2020-11-09 Completed Unive rsity of PFIZER VACCINE 00:00:00 [facility] SARS-COV-2 COVID-19 2020-11-09 Completed Unive rsity of PFIZER VACCINE 00:00:00 [facility] SARS-COV-2 COVID-19 2020-11-09 Completed Unive rsity of PFIZER VACCINE 00:00:00 [facility] SARS-COV-2 COVID-19 2020-11-09 Completed Unive rsity of PFIZER VACCINE 00:00:00 [facility] SARS-COV-2 COVID-19 2020-11-09 Completed Unive rsity of PFIZER VACCINE 00:00:00 [facility] SARS-COV-2 COVID-19 2020-11-09 Completed Unive rsity of PFIZER VACCINE 00:00:00 [facility] SARS-COV-2 COVID-19 2020-11-09 Completed Unive rsity of PFIZER VACCINE 00:00:00 [facility] SARS-COV-2 COVID-19 2020-11-09 Completed Unive rsity of PFIZER VACCINE 00:00:00 [facility] SARS-COV-2 COVID-19 2020-11-09 Completed Unive rsity of PFIZER VACCINE 00:00:00 [facility] SARS-COV-2 COVID-19 2020-11-09 Completed Unive rsity of PFIZER VACCINE 00:00:00 [facility] SARS-COV-2 COVID-19 2020-11-09 Completed Unive rsity of PFIZER VACCINE 00:00:00 [facility] SARS-COV-2 COVID-19 2020-11-09 Completed Unive rsity of PFIZER VACCINE 00:00:00 [facility] SARS-COV-2 COVID-19 2020-11-09 Completed Unive rsity of PFIZER VACCINE 00:00:00 [facility] SARS-COV-2 COVID-19 2020-11-09 Completed Unive rsity of PFIZER VACCINE 00:00:00 [facility] SARS-COV-2 COVID-19 2020-11-09 Completed Unive rsity of PFIZER VACCINE 00:00:00 [facility] SARS-COV-2 COVID-19 2020-11-09 Completed Unive rsity of PFIZER VACCINE 00:00:00 [facility] SARS-COV-2 COVID-19 2020-11-09 Completed Unive rsity of PFIZER VACCINE 00:00:00 [facility] SARS-COV-2 COVID-19 2020-11-09 Completed Unive rsity of PFIZER VACCINE 00:00:00 [facility] SARS-COV-2 COVID-19 2020-11-09 Completed Unive rsity of PFIZER VACCINE 00:00:00 [facility] SARS-COV-2 COVID-19 2020-11-09 Completed Unive rsity of PFIZER VACCINE 00:00:00 [facility] SARS-COV-2 COVID-19 2020-11-09 Completed Unive rsity of PFIZER VACCINE 00:00:00 [facility] SARS-COV-2 COVID-19 2020-11-09 Completed Unive rsity of PFIZER VACCINE 00:00:00 [facility] SARS-COV-2 COVID-19 2020-11-09 Completed Unive rsity of PFIZER VACCINE 00:00:00 [facility] SARS-COV-2 COVID-19 2020-11-09 Completed Unive rsity of PFIZER VACCINE 00:00:00 [facility] SARS-COV-2 COVID-19 2020-11-09 Completed Unive rsity of PFIZER VACCINE 00:00:00 [facility] SARS-COV-2 COVID-19 2020-11-09 Completed Unive rsity of PFIZER VACCINE 00:00:00 [facility] Vital Signs Vital Name Observation Time Observation Value Comments Source Systolic blood 2023-02-16 21:12:00 157 mm[Hg] Univer sity of pressure [facility] Diastolic blood 2023-02-16 21:12:00 95 mm[Hg] Unive rsity of pressure [facility] Heart rate 2023-02-16 21:12:00 95 /min [facility] Body height 2023-02-16 21:12:00 147.3 cm [facility] Body weight 2023-02-16 21:12:00 132.224 kg [facility] BMI 2023-02-16 21:12:00 60.92 kg/m2 [facility] Oxygen saturation in 2023-02-16 21:12:00 98 /min [facility] Arterial blood by [place] [facility] Heart rate 2021-07-27 21:30:00 62 /min [facility] Respiratory rate 2021-07-27 21:30:00 22 /min [facility] Oxygen saturation in 2021-07-27 21:30:00 95 /min University of Arterial blood by [facility] Pulse oximetry Branch Systolic blood 2021-07-27 21:25:00 137 mm[Hg] [facility] pressure [facility] Diastolic blood 2021-07-27 21:25:00 77 mm[Hg] [facility]ive [facility] of pressure [facility] Body temperature 2021-07-27 18:35:24 36.78 Cele [facility] Body height 2021-07-27 18:02:00 147.3 cm [facility] Body weight 2021-07-27 18:02:00 124.739 kg [facility] BMI 2021-07-27 18:02:00 57.48 kg/m2 [facility] Systolic blood 2021-06-25 05:00:00 134 mm[Hg] [facility] Diastolic blood 2021-06-25 05:00:00 60 mm[Hg] [facility] Heart rate 2021-06-25 05:00:00 78 /min [facility] Respiratory rate 2021-06-25 05:00:00 27 /min [facility] Oxygen saturation in 2021-06-25 05:00:00 97 /min [facility] Arterial blood by [place] [facility] Body temperature 2021-06-25 04:16:00 36.94 Cele [facility] Body height 2021-06-25 04:16:00 147.3 cm [facility] Body weight 2021-06-25 04:16:00 127.007 kg [facility] BMI 2021-06-25 04:16:00 58.52 kg/m2 [facility] Systolic blood 2021-02-17 19:29:00 124 mm[Hg] [facility] Diastolic blood 2021-02-17 19:29:00 88 mm[Hg] [facility] Heart rate 2021-02-17 19:29:00 89 /min [facility] Respiratory rate 2021-02-17 19:29:00 18 /min [facility] Body weight 2021-02-17 19:29:00 126.281 kg [facility] BMI 2021-02-17 19:29:00 56.23 kg/m2 [facility] Systolic blood 2021-01-05 19:16:00 132 mm[Hg] [facility] Diastolic blood 2021-01-05 19:16:00 88 mm[Hg] [facility] Heart rate 2021-01-05 19:16:00 89 /min [facility] Body temperature 2021-01-05 19:16:00 37.28 Cele [facility] Respiratory rate 2021-01-05 19:16:00 18 /min [facility] Body height 2021-01-05 19:16:00 149.9 cm [facility] Body weight 2021-01-05 19:16:00 125.51 kg [facility] BMI 2021-01-05 19:16:00 55.89 kg/m2 [facility] Systolic blood 2020-12-07 19:42:00 124 mm[Hg] [facility] Diastolic blood 2020-12-07 19:42:00 86 mm[Hg] [facility] Heart rate 2020-12-07 19:42:00 89 /min [facility] Respiratory rate 2020-12-07 19:42:00 19 /min [facility] Body height 2020-12-07 19:42:00 152.4 cm [facility]i [facility] of [facility] Body weight 2020-12-07 19:42:00 127.551 kg [facility]i [facility] of [facility] BMI 2020-12-07 19:42:00 54.92 kg/m2 Univers[facility] ty [facility] Systolic blood 2023-02-22 13:31:00 125 mm[Hg] Univer sity of pressure [facility] Diastolic blood 2023-02-22 13:31:00 82 mm[Hg] Unive rsity of pressure [facility] Heart rate 2023-02-22 13:31:00 79 /min [facility]i [facility] of [facility] Respiratory rate 2023-02-22 13:31:00 18 /min [facility] Body height 2023-02-22 13:31:00 147.3 cm Universi ty [facility] Body weight 2023-02-22 13:31:00 132.2 kg Universi ty [facility] BMI 2023-02-22 13:31:00 60.91 kg/m2 [facility] Oxygen saturation in 2023-02-16 21:12:00 98 /min [facility] by [facility] Pulse oximetry Branch BP Systolic 2022-08-30 11:27:00 120 mm[Hg] [...] /min Respiratory Rate 2021-09-20 14:38:00 18.00 /min Body temperature 2021-07-27 18:35:24 36.78 Cele [facility] Procedures Procedure Date / Time Performed Performing Clinician [facility] e CT HEAD WO CONTRAST 2023-02-26 19:38:43 [facility] Medical [facility] CT HEAD WO CONTRAST 2023-02-26 19:38:43 [facility] ASSIGNMENT OF BENEFITS 2023-02-26 19:05:35 Doctor Unassigned, No University [facility] Name Medical Branch CONSENT/REFUSAL FOR 2023-02-26 19:04:46 Doctor Unassigned, No [facility] [place] [facility] TREATMENT CONSENT/REFUSAL FOR 2023-02-26 19:04:46 Doctor Unassigned, No [facility] [place] [facility] AND Name [facility] TREATMENT [facility] PATIENT FINANCIAL 2023-02-16 21:04:53 Doctor Unassigned, No University [facility] POLICY Name Medical Branch ASSIGNMENT OF BENEFITS 2023-02-16 21:04:02 Doctor Unassigned, No University [facility] Name Medical Branch CONSENT/REFUSAL FOR 2023-02-16 21:03:03 Doctor Unassigned, No [facility] [place] [facility] Name Medical [facility] TREATMENT CONSENT/REFUSAL FOR 2023-02-16 21:03:03 Doctor Unassigned, No [facility] [place] [facility] AND Name [facility] TREATMENT REFERRAL- 2023-01-23 05:01:00 Doctor Unassigned, No [facility] [place] REQUEST/RESPONSE Name Medical Branch REFERRAL- 2023-01-23 05:01:00 Doctor Unassigned, No [facility] [place] REQUEST/RESPONSE Name Medical Branch REFERRAL- 2023-01-03 05:01:00 Doctor Unassigned, No [facility] [place] REQUEST/RESPONSE Name Medical Branch REFERRAL- 2023-01-03 05:01:00 Doctor Unassigned, No [facility] [place] REQUEST/RESPONSE Name Medical Branch TROPONIN I 2021-07-27 20:28:00 [facility] Medical Branch D-DIMER 2021-07-27 20:27:00 [facility] XR CHEST 1 VW 2021-07-27 19:38:35 Siddharth K [facility] POCT TEST 2021-07-27 18:28:00 Yamil [facility] URINALYSIS 2021-07-27 18:26:00 Yamli [facility] MAGNESIUM 2021-07-27 18:06:00 Yamil [facility] TROPONIN I 2021-07-27 18:06:00 Yamil [facility] COMP. METABOLIC PANEL 2021-07-27 18:06:00 Yamil [facility] ([id number]) [facility] CBC WITH DIFF 2021-07-27 18:06:00 Yamil [facility] CT HEAD WO CONTRAST 2021-06-25 05:12:41 Yoon Page [facility] NOTICE OF PRIVACY 2021-06-25 04:02:52 Doctor Unassigned, No [facility] PRACTICES [facility] CONSENT/REFUSAL FOR 2021-06-25 04:01:22 [facility] TREATMENT DISCLOSURE AND 2021-01-06 05:01:00 Doctor Unassigned, No [facility] CONSENT, MEDICAL AND Name Medical [facility] SURGICAL PROCEDURES POCT TEST 2021-01-05 19:26:00 Aracely Villanueva [facility] POCT TEST 2020-12-07 20:47:00 Fern Moctezuma [facility] ASSIGNMENT OF BENEFITS 2020-12-07 19:26:29 Doctor Unassigned, No [facility] Plan of Care Planned Activity Planned Date Details Comments Source Goal Plan of Care Note [code = 69555-3] Goal Plan of Care Note [code = 10038-1] Goal Plan of Care Note [code = 84993-6] Goal Plan of Care Note [code = 54823-6] Goal Plan of Care Note [code = 99878-9] Goal Plan of Care Note [code = 61981-7] Goal Plan of Care Note [code = 38051-2] Goal Plan of Care Note [code = 98028-8] Goal Plan of Care Note [code = 09849-6] Goal Plan of Care Note [code = 60506-4] Goal Plan of Care Note [code = 94231-3] Goal Plan of Care Note [code = 80582-8] Goal Plan of Care Note [code = 64318-9] Goal Plan of Care Note [code = 71348-5] Goal Plan of Care Note [code = 84770-2] Goal Plan of Care Note [code = 89958-0] Goal Plan of Care Note [code = 76363-1] Goal Plan of Care Note [code = 21404-0] Goal Plan of Care Note [code = 44332-2] Goal Plan of Care Note [code = 71295-5] Goal Plan of Care Note [code = 32655-3] Goal Plan of Care Note [code = 08439-7] Goal Plan of Care Note [code = 48737-4] Goal Plan of Care Note [code = 21661-8] Goal Plan of Care Note [code = 23688-2] Goal Plan of Care Note [code = 78331-3] Goal Plan of Care Note [code = 79857-8] Goal Plan of Care Note [code = 49605-7] Goal Plan of Care Note [code = 47899-3] Goal Plan of Care Note [code = 04404-0] Goal Plan of Care Note [code = 21560-1] Goal Plan of Care Note [code = 91735-1] Goal Plan of Care Note [code = 84850-5] Goal Plan of Care Note [code = 44149-0] Goal Plan of Care Note [code = 14796-3] Goal Plan of Care Note [code = 17533-9] Goal Plan of Care Note [code = 82006-7] Goal Plan of Care Note [code = 77018-4] Goal Plan of Care Note [code = 54091-1] Goal Plan of Care Note [code = 46736-4] Goal Plan of Care Note [code = 79200-0] Goal Plan of Care Note [code = 04704-9] Goal Plan of Care Note [code = 67398-1] Goal Plan of Care Note [code = 79361-4] Goal Plan of Care Note [code = 86368-6] Goal Plan of Care Note [code = 46063-3] Goal Plan of Care Note [code = 05366-8] Goal Plan of Care Note [code = 65817-8] Goal Plan of Care Note [code = 18492-9] Goal Plan of Care Note [code = 85021-2] Goal Plan of Care Note [code = 69812-2] Goal Plan of Care Note [code = 38400-3] Goal Plan of Care Note [code = 53487-8] Goal Plan of Care Note [code = 84139-3] Goal Plan of Care Note [code = 53969-2] Goal Plan of Care Note [code = 65135-1] Goal Plan of Care Note [code = 75751-9] Goal Plan of Care Note [code = 68555-7] Goal Plan of Care Note [code = 54041-0] Goal Plan of Care Note [code = 83268-6] Goal Plan of Care Note [code = 95056-4] Goal Plan of Care Note [code = 54206-3] Goal Plan of Care Note [code = 67684-4] Goal Plan of Care Note [code = 57738-4] Goal Plan of Care Note [code = 04278-7] Goal Plan of Care Note [code = 00372-1] Goal Plan of Care Note [code = 42398-0] Goal Plan of Care Note [code = 19146-1] Goal Plan of Care Note [code = 84642-1] Goal Plan of Care Note [code = 01736-2] Goal Plan of Care Note [code = 56656-6] Goal Plan of Care Note [code = 90690-3] Goal Plan of Care Note [code = 95523-4] Goal Plan of Care Note [code = 34376-7] Goal Plan of Care Note [code = 50859-7] Goal Plan of Care Note [code = 36199-4] Goal Plan of Care Note [code = 17578-6] Goal Plan of Care Note [code = 53019-1] Goal Plan of Care Note [code = 59893-6] Goal Plan of Care Note [code = 10175-4] Goal Plan of Care Note [code = 39141-1] Goal Plan of Care Note [code = 51592-7] Goal Plan of Care Note [code = 76033-0] Goal Plan of Care Note [code = 59258-5] Goal Plan of Care Note [code = 43178-3] Goal Plan of Care Note [code = 37041-2] Goal Plan of Care Note [code = 98034-0] Goal Plan of Care Note [code = 12388-6] Goal Plan of Care Note [code = 35585-5] Goal Plan of Care Note [code = 79827-9] Goal Plan of Care Note [code = 98555-2] Goal Plan of Care Note [code = 80451-5] Goal Plan of Care Note [code = 14721-2] Goal Plan of Care Note [code = 68758-7] Goal Plan of Care Note [code = 52007-1] Goal Plan of Care Note [code = 94941-6] Goal Plan of Care Note [code = 48617-6] Goal Plan of Care Note [code = 04337-5] Goal Plan of Care Note [code = 04711-6] Goal Plan of Care Note [code = 51593-0] Goal Plan of Care Note [code = 16570-1] Goal Plan of Care Note [code = 32947-6] Goal Plan of Care Note [code = 77881-4] Goal Plan of Care Note [code = 28460-7] Goal Plan of Care Note [code = 41708-0] Goal Plan of Care Note [code = 31967-6] Goal Plan of Care Note [code = 95631-6] Goal Plan of Care Note [code = 78991-8] Goal Plan of Care Note [code = 93017-1] Goal Plan of Care Note [code = 48307-2] Goal Plan of Care Note [code = 85838-9] Goal Plan of Care Note [code = 34293-9] Goal Plan of Care Note [code = 59815-8] Goal Plan of Care Note [code = 03404-7] Goal Plan of Care Note [code = 67634-7] Goal Plan of Care Note [code = 95798-8] Goal Plan of Care Note [code = 45500-8] Goal Plan of Care Note [code = 05096-0] Goal Plan of Care Note [code = 84973-1] Goal Plan of Care Note [code = 97098-3] Goal Plan of Care Note [code = 61469-5] Goal Plan of Care Note [code = 81699-5] Goal Plan of Care Note [code = 90813-8] Goal Plan of Care Note [code = 55896-8] Goal Plan of Care Note [code = 27069-9] Goal Plan of Care Note [code = 19457-3] Goal Plan of Care Note [code = 36239-6] Goal Plan of Care Note [code = 84698-6] Goal Plan of Care Note [code = 87880-6] Goal Plan of Care Note [code = 22248-8] Goal Plan of Care Note [code = 88815-4] Goal Plan of Care Note [code = 34945-9] Goal Plan of Care Note [code = 30092-6] Goal Plan of Care Note [code = 61460-4] Goal Plan of Care Note [code = 86054-3] Goal Plan of Care Note [code = 53326-4] Goal Plan of Care Note [code = 15973-4] Goal Plan of Care Note [code = 66755-5] Goal Plan of Care Note [code = 84528-8] Goal Plan of Care Note [code = 04898-1] Goal Plan of Care Note [code = 31169-9] Goal Plan of Care Note [code = 58995-3] Goal Plan of Care Note [code = 40998-1] Goal Plan of Care Note [code = 99327-3] Goal Plan of Care Note [code = 88906-6] Goal Plan of Care Note [code = 74682-8] Goal Plan of Care Note [code = 77258-0] Goal Plan of Care Note [code = 95656-7] Goal Plan of Care Note [code = 40987-5] Goal Plan of Care Note [code = 96842-1] Goal Plan of Care Note [code = 06653-0] Goal Plan of Care Note [code = 09355-8] Goal Plan of Care Note [code = 67117-5] Goal Plan of Care Note [code = 04849-7] Goal Plan of Care Note [code = 02143-8] Goal Plan of Care Note [code = 92908-0] Goal Plan of Care Note [code = 46573-9] Encounters Start End Encounter Admission Attending Care Care Encounter Source Date/Time Date/Time Type Type Clinicians Facility Department ID 2023-03-07 2023-03-07 Outpatient AL MELENDEZ [id number] [facility] 17:09:40 17:09:40 [id number] Alex Delaney 2023-03-06 2023-03-06 Outpatient [facility] [facility] Georgi 13:55:04 13:55:04 [id number] F [place] 2023-03-01 2023-03-01 Outpatient [facility] Georgi 19:02:12 19:02:12 [id number] F [place] 2023-02-27 2023-02-27 Outpatient [facility] Georgi 12:52:47 12:52:47 [id number] F [place] 2023-02-27 2023-02-27 Telephone [place], 1.2.840.5 [id number] Univers 00:00:00 00:00:00 Thompson 45072.1.1 ity of 3.104.2.7 [place] .3.757237 Medica l .8 [place] 2023-02-26 2023-02-26 [facility] [id number] Univers 14:06:01 23:59:00 THOMPSON ity [facility] 2023-02-26 2023-02-26 Hospital [place], 1.2.840.2 [id number] [id number] Univers 14:06:01 23:59:00 Encounter Thompson 05851.1.1 it y of 3.104.2.7 [place] .3.110670 Medica l .8 [place] 2023-02-26 2023-02-26 Orders Doctor 1.2.840.4 [id number] [id number] Univers 00:00:00 00:00:00 Only Unassigned, 32975.1.1 ity of [place] 3.104.2.7 [place] .3.389517 Medica l .8 [place] 2023-02-23 2023-02-23 [facility] [id number] Univers 00:00:00 00:00:00 THOMPSON ity [facility] 2023-02-22 2023-02-22 Outpatient [facility] Georgi 18:59:42 18:59:42 [id number] F [place] 2023-02-22 2023-02-22 Outpatient R HANNA [facility] [id number] Univers 08:00:00 10:21:38 ISELA pitt [facility] 2023-02-22 2023-02-22 Travel 1.2.840.1 1.2.602.334 [id number] Univers 00:00:00 00:00:00 20935.1.1 350.1.13.10 ity of 3.104.2.7 4[place].3.698 [place] .3.275922 084.8 Medica l .8 [place] 2023-02-20 2023-02-20 Telephone Lars, 1.2.840.7 [id number] Univers 00:00:00 00:00:00 [place] 88631.1.1 ity of 3.104.2.7 [place] .3.297144 Medica l .8 [place] 2023-02-20 2023-02-20 Travel 1.2.840.1 1.2.100.329 2779 [id number] Univers 00:00:00 00:00:00 06977.1.1 350.1.13.10 ity of 3.104.2.7 [place].3.698 [place] .3.991914 084.8 Medica l .8 [place] 2023-02-19 2023-02-19 Telephone Lars, 1.2.840.5 [id number] Univers 00:00:00 00:00:00 Thompson 42659.1.1 ity of 3.104.2.7 [place] .3.242774 Medica l .8 [place] 2023-02-16 2023-02-16 [facility] [id number] [id number] [facility] 16:00:00 16:37:59 THOMPSON ity of [facility] 2023-02-16 2023-02-16 Office Lars, 1.2.840.5 [id number] 5198 Univers 16:00:00 16:37:59 Visit Thompson 58230.1.1 ity of 3.104.2.7 [place] .3.029225 Medica l .8 [place] 2023-02-16 2023-02-16 Outpatient [facility] [id number]- 202 Georgi 10:40:55 10:40:55 99982 F [place] 2023-02-16 2023-02-16 Orders Doctor 1.2.840.2 [id number] 6020 Univers 00:00:00 00:00:00 Only Unassigned, 84214.1.1 ity of [place] 3.104.2.7 [place] .3.406024 Medica l .8 [place] 2023-02-16 2023-02-16 Telephone Lars, 1.2.840.0 [id number] Univers 00:00:00 00:00:00 [place] 86505.1.1 ity of 3.104.2.7 [place] .3.235961 Medica l .8 [place] 2023-02-16 2023-02-16 Refill Lars, 1.2.840.6 [id number] 02507 8025 Univers 00:00:00 00:00:00 Thompson 47953.1.1 ity of 3.104.2.7 [place] .3.773190 Medica l .8 [place] 2023-02-16 2023-02-16 Travel 1.2.840.1 1.2.524.318 4670 54852 Univers 00:00:00 00:00:00 46230.1.1 350.1.13.10 ity of 3.104.2.7 [place].3.698 [place] .3.247213 084.8 Medica l .8 [place] 2023-02-15 2023-02-15 Outpatient SFA SFA [id number]- 202 Georgi 18:29:11 18:29:11 [id number] F [place] 2023-01-24 2023-01-24 Outpatient SFA SFA [id number]- 202 Georgi 14:36:00 14:36:00 [id number] F [place] 2023-01-23 2023-01-23 Outpatient SFA SFA [id number] Georgi 11:08:53 11:08:53 [id number] F [place] 2023-01-23 2023-01-23 Orders Doctor 1.2.840.6 [id number] 6312 Univers 00:00:00 00:00:00 Only Unassigned, 77060.1.1 ity of [place] 3.104.2.7 [place] .3.094851 Medica l .8 [place] 2023-01-18 2023-01-18 Outpatient SFA SFA [id number]- 202 Georgi 15:07:35 15:07:35 [id number] F [place] 2023-01-16 2023-01-16 Outpatient SFA Georgi 16:50:24 16:50:24 [id number] F [place] 2023-01-08 2023-01-08 Outpatient SFA Georgi 15:29:19 15:29:19 [id number] F [place] 2023-01-03 2023-01-03 Orders Doctor 1.2.840.7 [id number] 6464 Univers 00:00:00 00:00:00 Only Unassigned, 70220.1.1 ity of [place] 3.104.2.7 [place] .3.989150 Medica l .8 [place] 2022-12-23 2022-12-23 Outpatient SFA SFA Georgi 09:11:36 09:11:36 [id number] F [place] 2022-12-11 2022-12-11 Outpatient SFA SFA Georgi 16:09:25 16:09:25 [id number] F [place] 2022-12-05 2022-12-05 Outpatient SFA SFA Georgi 10:53:45 10:53:45 [id number] F [place] 2022-11-28 2022-11-28 Outpatient SFA SFA Georgi 17:46:35 17:46:35 [id number] F [place] 2022-11-20 2022-11-20 Telephone FREDO Diamond 1.2.840.114 10 [id number] Univers 00:00:00 00:00:00 [facility] 350.1.13.10 i ty of [place] [id number] [facility] [address] 2022-11-17 2022-11-17 Outpatient SFA SFA Georgi 11:28:22 11:28:22 [id number] [facility] 2022-11-08 2022-11-08 Outpatient SFA SFA Georgi 13:56:45 13:56:45 [id number] F [place] 2022-11-01 2022-11-01 Outpatient SFA SFA Georgi 11:26:47 11:26:47 [id number] F [place] 2022-10-31 2022-10-31 Outpatient SFA SFA [id number]- Georgi 13:04:58 13:04:58 [id number] F [place] 2022-10-20 2022-10-20 Outpatient SFA SFA [id number]- Georgi 11:25:26 11:25:26 [id number] F [place] 2022-10-19 2022-10-19 Outpatient SFA SFA [id number]- Geogri 14:02:23 14:02:23 [id number] F [place] 2022-10-09 2022-10-09 Outpatient SFA SFA [id number]- Georgi 10:08:28 10:08:28 [id number] F [place] 2022-09-21 2022-09-21 Outpatient SFA SFA [id number]- Georgi 11:54:36 11:54:36 [id number] F [place] 2022-09-15 2022-09-15 Outpatient SFA SFA [id number]- Georgi 11:33:15 11:33:15 [id number] F [place] 2022-09-08 2022-09-08 Outpatient SFA SFA [id number]- Georgi 10:49:58 10:49:58 05975 F [place] 2022-09-07 2022-09-07 Outpatient SFA SFA [id number]- Georgi 15:51:56 15:51:56 [id number] F [place] 2022-09-05 2022-09-05 Outpatient SFA SFA [id number]- Georgi 10:47:25 10:47:25 [id number] F [place] 2022-09-04 2022-09-04 Outpatient SFA SFA [id number]- Georgi 11:21:25 11:21:25 [id number] F [place] 2022-08-30 2022-08-30 Outpatient SFA SFA [id number]- Georgi 15:33:51 15:33:51 [id number] F [place] 2022-08-30 2022-08-30 Outpatient m7855qx6- [id number] b1 021yx4-7 00:00:00 00:00:00 Visit 3485-45fb 485-45fb-8 -8adf-9d4 adf-9d42c4 3o6nh74t7 aa65e7 2022-08-25 2022-08-25 Outpatient SFA SFA [id number]- 202 Georgi 10:13:30 10:13:30 46902 [facility] 2022-08-11 2022-08-11 Outpatient SFA SFA [id number]- Georgi 09:20:54 09:20:54 [id number] F [place] 2022-07-28 2022-07-28 Outpatient SFA SFA Georgi 11:30:57 11:30:57 [id number] F [place] 2022-07-14 2022-07-14 Outpatient SFA SFA Georgi 11:31:56 11:31:56 [id number] F [place] 2022-06-29 2022-06-29 Outpatient SFA SFA Georgi 15:28:07 15:28:07 [id number] F [place] 2022-06-29 2022-06-29 Outpatient 09uq72x5- [id number] eh34l3-7 00:00:00 00:00:00 Visit 0088-44b4 088-44b4-8 -8443-99f 443-99fcb6 ws7y38lg9 b36be4 2022-06-16 2022-06-16 Outpatient SFA SFA Georgi 11:17:33 11:17:33 [id number] F [place] 2022-06-15 2022-06-15 Outpatient SFA SFA Georgi 09:41:11 09:41:11 [id number] F [place] 2022-06-08 2022-06-08 Outpatient 68titci8- [id number] bfdee4-1 00:00:00 00:00:00 Visit 1155-48b2 155-48b2-b -oi4c-cq8 l8h-bz2n8l k9u7715uw 7966fb 2022-04-27 2022-04-27 Outpatient 6zloc4lg- [id number] 1b vfr2zv-7 00:00:00 00:00:00 Visit 30g4-32c8 4d8-77l7-q -xw95-97u n77-97eg42 l20tp4g4l ab5d1b 2022-03-02 2022-03-02 Outpatient y8l60929- [id number] d6 r68366-l 00:00:00 00:00:00 Visit ee47-4z13 g98-1h10-0 -926c-c29 26c-c29a66 h3117m435 38i990 2021-07-27 2021-07-27 Emergency X Yamil [facility] ERT [id number] Univers 11:56:00 15:42:00 ity of [facility] 2021-07-27 2021-07-27 Emergency Yamil [place] [facility] 1.2.840.114 [id number] Univers 11:56:00 15:42:00 Carmen WILLIE 350.1.13.10 i ty [place] [id number] [place] [address] [place] 2021-06-24 2021-06-24 Emergency [facility] E[facility] [id number] Univers 22:06:00 23:54:00 WAKILI ity of [facility] 2021-06-24 2021-06-24 Emergency [facility] 1.2.439.711 1207 7821 Univers 22:06:00 23:54:00 Yoon Haines WILLIE 350.1.13.10 [place] [id number] [place] [address] [place] 2021-06-24 2021-06-24 Orders Doctor BELTRAN 1.2.840.114 [id number] Univers 00:00:00 00:00:00 Only Unassigned, [place] 350.1.13.10 ity of [place] [facility] 4.2.7.2.686 [place] [id number] [facility] [address] 2021-02-17 2021-02-17 Office Pgy2 UNIVERSIT 1.2.711.604 5561 1721 Univers 14:13:58 15:19:24 Visit Marsha Mansfieldo [facility] 350.1.13.10 ity of [place] 154.1295453 [facility] [address] 2021-02-17 2021-02-17 Outpatient R [facility] [id number] Univers 14:00:00 14:00:00 ity of [facility] 2021-01-06 2021-01-06 Orders Doctor BELTRAN 1.2.840.114 [id number] Univers 00:00:00 00:00:00 Only UnassignedMILTON 350.1.13.10 ity of [place] [facility] 4.2.7.2.686 [place] as [id number] [address] 2021-01-05 2021-01-05 Office [facility] Resident UNIVERSIT 1.2.8 40.114 [id number] Univers 13:58:29 16:19:12 Visit Aracely Villanueva Y HEALTH 350.1.13.10 [place] [id number] [address] 2021-01-05 2021-01-05 Outpatient R [facility] [id number] Univers 14:15:00 14:15:00 ity [facility] 2020-12-10 2020-12-10 Telephone Silvestre YOO 1.2.840.11 4 [id number] Univers 00:00:00 00:00:00 lfsan francisco, Y HEALTH 350.1.13.10 i ty of [facility] [place].2.[place] [id number] [address] 2020-12-07 2020-12-07 Office [facility] Resident UNIVERSIT 1.2.8 40.114 [id number] Univers 14:35:42 16:30:20 Visit Jeanette Henley Y HEALTH 350.1.13.10 it[place] [id number] [address] 2020-12-07 2020-12-07 Outpatient R ANDRES [facility] [id number] Univers 14:30:00 14:30:00 JEANETTE [facility] 2020-12-07 2020-12-07 Orders Doctor GONG 1.2.840.114 [id number] Univers 00:00:00 00:00:00 Only Unassigned, [place] 350.1.13.10 ity of [place] [facility] 4.2.7.2.686 [place] [id number] [address] 2020-12-02 2020-12-02 Outpatient R HARVEY [facility] [id number] Univers 14:05:00 14:05:00 BEBE [facility] Results Test Description Test Time Test Comments Results Result Comments Source COMPREHENSIVE METABOLIC PANEL 2022-09-09 07:39:28 Test Item Value Reference Range Interpretation Comme nts GLUCOSE (test code = 2216) 112 MG/DL 70-99 H BUN (test code = 2207) 14 MG/DL 6-20 CREATININE (test code = 0.79 MG/DL 0.60-1.30 2213) eGFR (2020 CKD-EPI) (test 101 ML/MIN/1.73 >60 code = 18382) CALC BUN/CREAT (test code = 18 RATIO 02-07) SODIUM (test code = 2230) 140 MEQ/L 133-146 POTASSIUM (test code = 3.8 MEQ/L 3.5-5.4 2227) CHLORIDE (test code = 2214) 101 MEQ/L 95-107 CARBON DIOXIDE (test code = 24 MEQ/L 2205) CALCIUM (test code = 2208) 9.7 MG/DL 8.5-10.5 PROTEIN, TOTAL (test code = 6.7 G/DL 6.1-8.3 2228) ALBUMIN (test code = 2200) 4.1 G/DL 3.5-5.2 CALC GLOBULIN (test code [...] INDICATED, ALL TESTING PER FORMED [facility] [place]. [address] [place] [address] 4309 LABORATORY DIRE CTOR: EDVIN BENSON M.D. CLIA NUMBER [id number] [place]. [id number] HEMOGLOBIN [id number] 04:57:47 Test Item Value Reference Range Interpretation Comments HEMOGLOBIN A1c (test code = 15804) 6.1 % 4.2-5.6 H TSH, THIRD [id number] 03:25:48 Test Item Value Reference Range Interpretation Comments TSH, THIRD 2.310 UIU/ML 0.400-4.100 UNLESS OTHERWI SE GENERATION (test INDICATED, ALL TESTING code = 2821) PERFORMED [facility], [facility]. [address] [place] [address] [facility] DIRECTOR: EDVIN BENSON M.D. CLIA NUMBER [id number] CAP ACCREDITATION N O. [id number] TSH, THIRD [id number] 00:00:00 Test Item Value Reference Range Interpretation Comments TSH, THIRD GENERATION (test code 2.310 UIU/ML = 2821) TSH, THIRD [id number] 00:00:00 Test Item Value Reference Range Interpretation Comments TSH, THIRD GENERATION (test code 2.310 UIU/ML = 2821) TSH, THIRD [id number] 00:00:00 Test Item Value Reference Range Interpretation Comments TSH, THIRD GENERATION (test code 2.310 UIU/ML = 2821) [id number] 00:00:00 Test Item Value Reference Range Interpretation Comments 17-HYDROXYPROGESTERONE (test code = 45 ng/dL 4304) [id number] 00:00:00 Test Item Value Reference Range Interpretation Comments 17-HYDROXYPROGESTERONE (test code = 45 ng/dL 4304) [id number] 00:00:00 Test Item Value Reference Range Interpretation Comments 17-HYDROXYPROGESTERONE (test code = 45 ng/dL 4304) [id number] 00:00:00 Test Item Value Reference Range Interpretation Comments 17-HYDROXYPROGESTERONE (test code = 45 ng/dL 4304) FSH + LH [id number] 00:00:00 Test Item Value Reference Range Interpretation Comments FOLLICLE STIM HORMONE (test code = 4.3 IU/L 2700) LUTEINIZING HORMONE (test code = 15.6 IU/L 2776) FSH + LH [id number] 00:00:00 Test Item Value Reference Range Interpretation Comments FOLLICLE STIM HORMONE (test code = 4.3 IU/L 2700) LUTEINIZING HORMONE (test code = 15.6 IU/L 2776) [id number] 00:00:00 Test Item Value Reference Range Interpretation Comments PROLACTIN (test code = 2800) 17.7 NG/ML [id number] 00:00:00 Test Item Value Reference Range Interpretation Comments PROLACTIN (test code = 2800) 17.7 NG/ML TSH, THIRD [id number] 00:00:00 Test Item Value Reference Range Interpretation Comments TSH, THIRD GENERATION (test code 1.790 UIU/ML = 2821) TSH, THIRD [id number] 00:00:00 Test Item Value Reference Range Interpretation Comments TSH, THIRD GENERATION (test code 1.790 UIU/ML = 2821) TSH, THIRD [id number] 00:00:00 Test Item Value Reference Range Interpretation Comments TSH, THIRD GENERATION (test code 1.790 UIU/ML = 2821) FSH + LH [id number] 00:00:00 Test Item Value Reference Range Interpretation Comments FOLLICLE STIM HORMONE (test code = 4.3 IU/L 2700) LUTEINIZING HORMONE (test code = 15.6 IU/L 2776) FSH + LH [id number] 00:00:00 Test Item Value Reference Range Interpretation Comments FOLLICLE STIM HORMONE (test code = 4.3 IU/L 2700) LUTEINIZING HORMONE (test code = 15.6 IU/L 2776) [id number] 00:00:00 Test Item Value Reference Range Interpretation Comments PROLACTIN (test code = 2800) 17.7 NG/ML [id number] 00:00:00 Test Item Value Reference Range Interpretation Comments PROLACTIN (test code = 2800) 17.7 NG/ML TSH, THIRD [id number] 00:00:00 Test Item Value Reference Range Interpretation Comments TSH, THIRD GENERATION (test code 1.790 UIU/ML = 2821) TSH, THIRD [id number] 00:00:00 Test Item Value Reference Range Interpretation Comments TSH, THIRD GENERATION (test code 1.790 UIU/ML = 2821) TSH, THIRD [id number] 00:00:00 Test Item Value Reference Range Interpretation Comments TSH, THIRD GENERATION (test code 1.790 UIU/ML = 2821) TSH, THIRD [id number] 04:06:28 Test Item Value Reference Range Interpretation Comments TSH, THIRD 4.000 UIU/ML 0.400-4.100 UNLESS OTHERWI SE GENERATION (test INDICATED, ALL TESTING code = 2821) PERFORMED [facility], [facility]. [address] [place] [address] [facility] DIRECTOR: EDVIN BENSON M.D. CLIA NUMBER [id number] CAP ACCREDITATION N O. [id number] TSH, THIRD [id number] 00:00:00 Test Item Value Reference Range Interpretation Comments TSH, THIRD GENERATION (test code 4.000 UIU/ML = 2821) TSH, THIRD [id number] 00:00:00 Test Item Value Reference Range Interpretation Comments TSH, THIRD GENERATION (test code 4.000 UIU/ML = 2821) TSH, THIRD [id number] 00:00:00 Test Item Value Reference Range Interpretation Comments TSH, THIRD GENERATION (test code 4.000 UIU/ML = 2821) TSH, THIRD [id number] 00:00:00 Test Item Value Reference Range Interpretation Comments TSH, THIRD GENERATION (test code 4.000 UIU/ML = 2821) TSH, THIRD [id number] 00:00:00 Test Item Value Reference Range Interpretation Comments TSH, THIRD GENERATION (test code 4.000 UIU/ML = 2821) TSH, THIRD [id number] 00:00:00 Test Item Value Reference Range Interpretation Comments TSH, THIRD GENERATION (test code 4.000 UIU/ML = 2821) TSH, THIRD [id number] 00:00:00 Test Item Value Reference Range Interpretation Comments TSH, THIRD GENERATION (test code 4.000 UIU/ML = 2821) TSH, THIRD [id number] 00:00:00 Test Item Value Reference Range Interpretation Comments TSH, THIRD GENERATION (test code 4.000 UIU/ML = 2821) TSH, THIRD [id number] 00:00:00 Test Item Value Reference Range Interpretation Comments TSH, THIRD GENERATION (test code 4.000 UIU/ML = 2821) TSH, THIRD [id number] 09:09:54 Test Item Value Reference Range Interpretation Comments TSH, THIRD 9.840 UIU/ML 0.400-4.100 H UNLESS OTHERWI SE GENERATION (test INDICATED, ALL TESTING code = 2821) PERFORMED [facility], [facility]. [address] [place] [address] [facility] DIRECTOR: EDVIN BENSON M.D. CLIA NUMBER [id number] CAP ACCREDITATION N O. [id number] 00:00:00 Test Item Value Reference Range Interpretation Comments TSH, THIRD GENERATION (test code 9.840 UIU/ML = 2821) [id number] 00:00:00 Test Item Value Reference Range Interpretation Comments TSH, THIRD GENERATION (test code 9.840 UIU/ML = 2821) [id number] 00:00:00 Test Item Value Reference Range Interpretation Comments TSH, THIRD GENERATION (test code 9.840 UIU/ML = 2821) [id number] 00:00:00 Test Item Value Reference Range Interpretation Comments TSH, THIRD GENERATION (test code 9.840 UIU/ML = 2821) [id number] 00:00:00 Test Item Value Reference Range Interpretation Comments TSH, THIRD GENERATION (test code 9.840 UIU/ML = 2821) [id number] 00:00:00 Test Item Value Reference Range Interpretation Comments TSH, THIRD GENERATION (test code 9.840 UIU/ML = 2821) [id number] 00:00:00 Test Item Value Reference Range Interpretation Comments TSH, THIRD GENERATION (test code 9.840 UIU/ML = 2821) [id number] 00:00:00 Test Item Value Reference Range Interpretation Comments TSH, THIRD GENERATION (test code 9.840 UIU/ML = 2821) [id number] 00:00:00 Test Item Value Reference Range Interpretation Comments TSH, THIRD GENERATION (test code 9.840 UIU/ML = 2821) [id number] 00:00:00 Test Item Value Reference Range Interpretation Comments TSH, THIRD GENERATION (test code 9.840 UIU/ML = 2821) [id number] 00:00:00 Test Item Value Reference Range Interpretation Comments TSH, THIRD GENERATION (test code 9.840 UIU/ML = 2821) [id number] 00:00:00 Test Item Value Reference Range Interpretation Comments TSH, THIRD GENERATION (test code 9.840 UIU/ML = 2821) [id number] 00:00:00 Test Item Value Reference Range Interpretation Comments TSH, THIRD GENERATION (test code 9.840 UIU/ML = 2821) [id number] 00:00:00 Test Item Value Reference Range Interpretation Comments TSH, THIRD GENERATION (test code 9.840 UIU/ML = 2821) TSH, THIRD [id number] 05:03:02 Test Item Value Reference Range Interpretation Comments TSH, THIRD 7.050 UIU/ML 0.400-4.100 H UNLESS OTHERWI SE GENERATION (test INDICATED, ALL TESTING code = 2821) PERFORMED [facility], [facility] [address] [place] [address] [facility] DIRECTOR: EDVIN BENSON M.D. CLIA NUMBER [id number] [facility] ACCREDITATION N O. [id number] 00:00:00 Test Item Value Reference Range Interpretation Comments TSH, THIRD GENERATION (test code 7.050 UIU/ML = 2821) [id number] 00:00:00 Test Item Value Reference Range Interpretation Comments TSH, THIRD GENERATION (test code 7.050 UIU/ML = 2821) [id number] 00:00:00 Test Item Value Reference Range Interpretation Comments TSH, THIRD GENERATION (test code 7.050 UIU/ML = 2821) [id number] 00:00:00 Test Item Value Reference Range Interpretation Comments TSH, THIRD GENERATION (test code 7.050 UIU/ML = 2821) [id number] 00:00:00 Test Item Value Reference Range Interpretation Comments TSH, THIRD GENERATION (test code 7.050 UIU/ML = 2821) [id number] 00:00:00 Test Item Value Reference Range Interpretation Comments TSH, THIRD GENERATION (test code 7.050 UIU/ML = 2821) [id number] 00:00:00 Test Item Value Reference Range Interpretation Comments TSH, THIRD GENERATION (test code 7.050 UIU/ML = 2821) [id number] 00:00:00 Test Item Value Reference Range Interpretation Comments TSH, THIRD GENERATION (test code 7.050 UIU/ML = 2821) [id number] 00:00:00 Test Item Value Reference Range Interpretation Comments TSH, THIRD GENERATION (test code 7.050 UIU/ML = 2821) [id number] 00:00:00 Test Item Value Reference Range Interpretation Comments TSH, THIRD GENERATION (test code 7.050 UIU/ML = 2821) [id number] 00:00:00 Test Item Value Reference Range Interpretation Comments TSH, THIRD GENERATION (test code 7.050 UIU/ML = 2821) [id number] 00:00:00 Test Item Value Reference Range Interpretation Comments TSH, THIRD GENERATION (test code 7.050 UIU/ML = 2821) [id number] 00:00:00 Test Item Value Reference Range Interpretation Comments TSH, THIRD GENERATION (test code 7.050 UIU/ML = 2821) [id number] 00:00:00 Test Item Value Reference Range Interpretation Comments TSH, THIRD GENERATION (test code 7.050 UIU/ML = 2821) CBC W/AUTO DIFF WITH [id number] 03:06:39 Test Item Value Reference Range Interpretation [...] message] code = 1065) WBC'S The system [employer] generated this result transmitted ref erence range: [...] 0.00-0.11 UNLESS O THERWISE (test code = 97637) INDICATE D, ALL TESTING PERFORM [facility], [place] [address] [facility] [place] [address] [facility] DIRECTOR: EDVIN BENSON M.D. CLIA NUMBER [id number] CAP ACCREDITATION N O. [id number] CBC W/AUTO [id number] 00:00:00 Test Item Value Reference Range Interpretation [...] NUCLEATED RBCS (test code = 0.00 K/UL 77336) CBC W/AUTO [id number] 00:00:00 Test Item Value Reference Range Interpretation [...] NUCLEATED RBCS (test code = 0.00 K/UL 45838) CBC W/AUTO [id number] 00:00:00 Test Item Value Reference Range Interpretation [...] NUCLEATED RBCS (test code = 0.00 K/UL 21595) CBC W/AUTO [id number] 00:00:00 Test Item Value Reference Range Interpretation [...] NUCLEATED RBCS (test code = 0.00 K/UL 01818) CBC W/AUTO [id number] 00:00:00 Test Item Value Reference Range Interpretation [...] NUCLEATED RBCS (test code = 0.00 K/UL 07921) CBC W/AUTO [id number] 00:00:00 Test Item Value Reference Range Interpretation [...] NUCLEATED RBCS (test code = 0.00 K/UL 62911) CBC W/AUTO [id number] 00:00:00 Test Item Value Reference Range Interpretation [...] NUCLEATED RBCS (test code = 0.00 K/UL 89303) CBC W/AUTO [id number] 00:00:00 Test Item Value Reference Range Interpretation [...] NUCLEATED RBCS (test code = 0.00 K/UL 94936) CBC W/AUTO [id number] 00:00:00 Test Item Value Reference Range Interpretation [...] NUCLEATED RBCS (test code = 0.00 K/UL 80803) CBC W/AUTO [id number] 00:00:00 Test Item Value Reference Range Interpretation [...] NUCLEATED RBCS (test code = 0.00 K/UL 95571) CBC W/AUTO [id number] 00:00:00 Test Item Value Reference Range Interpretation [...] NUCLEATED RBCS (test code = 0.00 K/UL 17954) CBC W/AUTO [id number] 00:00:00 Test Item Value Reference Range Interpretation [...] NUCLEATED RBCS (test code = 0.00 K/UL 80234) CBC W/AUTO [id number] 00:00:00 Test Item Value Reference Range Interpretation [...] NUCLEATED RBCS (test code = 0.00 K/UL 67759) CBC W/AUTO [id number] 00:00:00 Test Item Value Reference Range Interpretation [...] NUCLEATED RBCS (test code = 0.00 K/UL 61009) CBC W/AUTO DIFF WITH [id number] 10:01:09 Test Item Value Reference Range Interpretation [...] RBCS TEST NOT 0.00-0.11 (test code = 67916) PERFORMED K/UL COMMENTS (test code = TEST NOT 1016) PERFORMED CBC W/AUTO [id number] 00:00:00 Test Item Value Reference Range Interpretation [...] RBCS (test TEST NOT PERFORMED code = 90033) K/UL COMMENTS (test code = TEST NOT PERFORMED 1016) CBC W/AUTO [id number] 00:00:00 Test Item Value Reference Range Interpretation [...] RBCS (test TEST NOT PERFORMED code = 27613) K/UL COMMENTS (test code = TEST NOT PERFORMED 1016) CBC W/AUTO [id number] 00:00:00 Test Item Value Reference Range Interpretation [...] RBCS (test TEST NOT PERFORMED code = 97957) K/UL COMMENTS (test code = TEST NOT PERFORMED 1016) CBC W/AUTO [id number] 00:00:00 Test Item Value Reference Range Interpretation [...] RBCS (test TEST NOT PERFORMED code = 03764) K/UL COMMENTS (test code = TEST NOT PERFORMED 1016) CBC W/AUTO [id number] 00:00:00 Test Item Value Reference Range Interpretation [...] RBCS (test TEST NOT PERFORMED code = 84280) K/UL COMMENTS (test code = TEST NOT PERFORMED 1016) CBC W/AUTO [id number] 00:00:00 Test Item Value Reference Range Interpretation [...] RBCS (test TEST NOT PERFORMED code = 42944) K/UL COMMENTS (test code = TEST NOT PERFORMED 1016) CBC W/AUTO [id number] 00:00:00 Test Item Value Reference Range Interpretation [...] RBCS (test TEST NOT PERFORMED code = 10147) K/UL COMMENTS (test code = TEST NOT PERFORMED 1016) CBC W/AUTO [id number] 00:00:00 Test Item Value Reference Range Interpretation [...] RBCS (test TEST NOT PERFORMED code = 12359) K/UL COMMENTS (test code = TEST NOT PERFORMED 1016) CBC W/AUTO [id number] 00:00:00 Test Item Value Reference Range Interpretation [...] RBCS (test TEST NOT PERFORMED code = 33846) K/UL COMMENTS (test code = TEST NOT PERFORMED 1016) CBC W/AUTO [id number] 00:00:00 Test Item Value Reference Range Interpretation [...] RBCS (test TEST NOT PERFORMED code = 64543) K/UL COMMENTS (test code = TEST NOT PERFORMED 1016) CBC W/AUTO [id number] 00:00:00 Test Item Value Reference Range Interpretation [...] RBCS (test TEST NOT PERFORMED code = 29390) K/UL COMMENTS (test code = TEST NOT PERFORMED 1016) CBC W/AUTO [id number] 00:00:00 Test Item Value Reference Range Interpretation [...] RBCS (test TEST NOT PERFORMED code = 74233) K/UL COMMENTS (test code = TEST NOT PERFORMED 1016) CBC W/AUTO [id number] 00:00:00 Test Item Value Reference Range Interpretation [...] RBCS (test TEST NOT PERFORMED code = 73386) K/UL COMMENTS (test code = TEST NOT PERFORMED 1016) CBC W/AUTO [id number] 00:00:00 Test Item Value Reference Range Interpretation [...] RBCS (test TEST NOT PERFORMED code = 57023) K/UL COMMENTS (test code = TEST NOT PERFORMED 1016) TSH, THIRD [id number] 06:29:33 Test Item Value Reference Range Interpretation Comments TSH, THIRD 7.090 UIU/ML 0.400-4.100 H UNLESS OTHERWI SE GENERATION (test INDICATED, ALL TESTING code = 2821) PERFORMED [facility], [place] [address] [place] [address] [facility] DIRECTOR: EDVIN BENSON M.D. CLIA NUMBER [id number] CAP ACCREDITATION N O. [id number] LIPID [id number] 04:58:53 Test Item Value Reference Range Interpretation [...] , SEE CLIENT ANNOUNCE MENT AT [email or web address] RISK RATIO LDL/HDL 3.57 RATIO <3.22 H (test code = 2238) COMPREHENSIVE METABOLIC [id number] 04:58:53 Test Item Value Reference Range Interpretation Comments GLUCOSE (test code = 85 MG/DL 70-99 2216) BUN (test code = 12 MG/DL 01-30) CREATININE (test 0.59 MG/DL 0.60-1.30 L code = 2214) eGFR (2020 CKD-EPI) 123 >60 (test code = 52353) ML/MIN/1.73 CALC BUN/CREAT (test 20 RATIO 02-07 code = 2235) SODIUM (test code = 141 MEQ/L 144-528 0339) POTASSIUM (test code 4.5 MEQ/L 3.5-5.4 = 2228) CHLORIDE (test code 103 MEQ/L 95-107 = [...] code = 16 U/L 5-40 2218) LIPID [id number] 00:00:00 Test Item Value Reference Range Interpretation Comments CHOLESTEROL (test code = 2210) 235 MG/DL TRIGLYCERIDES (test code = 2232) 127 MG/DL HDL CHOLESTEROL (test code = 2220) 46 MG/DL CALC LDL CHOL (test code = 2237) 164 MG/DL RISK RATIO LDL/HDL (test code = 3.57 RATIO 2238) LIPID [id number] 00:00:00 Test Item Value Reference Range Interpretation Comments CHOLESTEROL (test code = 2210) 235 MG/DL TRIGLYCERIDES (test code = 2232) 127 MG/DL HDL CHOLESTEROL (test code = 2220) 46 MG/DL CALC LDL CHOL (test code = 2237) 164 MG/DL RISK RATIO LDL/HDL (test code = 3.57 RATIO 2238) COMPREHENSIVE METABOLIC [id number] 00:00:00 Test Item Value Reference Range Interpretation Comments GLUCOSE (test code = 2217) 85 MG/DL BUN (test code = 2208) 12 MG/DL CREATININE (test code = 2214) 0.59 MG/DL eGFR (2020 CKD-EPI) (test 123 ML/MIN/1.73 code = 80476) CALC BUN/CREAT (test code = 20 RATIO [...] code = 2219) 16 U/L COMPREHENSIVE METABOLIC [id number] 00:00:00 Test Item Value Reference Range Interpretation Comments GLUCOSE (test code = 2217) 85 MG/DL BUN (test code = 2208) 12 MG/DL CREATININE (test code = 2214) 0.59 MG/DL eGFR (2020 CKD-EPI) (test 123 ML/MIN/1.73 code = 68748) CALC BUN/CREAT (test code = 20 RATIO 2235) SODIUM (test code = 2231) 141 MEQ/L POTASSIUM (test code = 2228) 4.5 MEQ/L CHLORIDE (test code = 2215) 103 MEQ/L CARBON DIOXIDE (test code = 25 MEQ/L 2206) CALCIUM (test code = 2209) 9.3 MG/DL PROTEIN, TOTAL (test code = 6.6 G/DL 2229) ALBUMIN (test code = 2201) 4.2 G/DL CALC GLOBULIN (test code = 2.4 G/DL 2240) CALC A/G RATIO (test code = 1.8 RATIO 2234) BILIRUBIN, TOTAL (test code = <0.2 MG/DL 2206) ALKALINE PHOSPHATASE (test 89 U/L code = 2204) AST (test code = 2218) 12 U/L ALT (test code = 2219) 16 U/L [id number] 00:00:00 Test Item Value Reference Range Interpretation Comments TSH, THIRD GENERATION (test code 7.090 UIU/ML = 2821) [id number] 00:00:00 Test Item Value Reference Range Interpretation Comments TSH, THIRD GENERATION (test code 7.090 UIU/ML = 2821) [id number] 00:00:00 Test Item Value Reference Range Interpretation Comments TSH, THIRD GENERATION (test code 7.090 UIU/ML = 2821) LIPID [id number] 00:00:00 Test Item Value Reference Range Interpretation Comments CHOLESTEROL (test code = 2210) 235 MG/DL TRIGLYCERIDES (test code = 2232) 127 MG/DL HDL CHOLESTEROL (test code = 2220) 46 MG/DL CALC LDL CHOL (test code = 2237) 164 MG/DL RISK RATIO LDL/HDL (test code = 3.57 RATIO 2238) LIPID [id number] 00:00:00 Test Item Value Reference Range Interpretation Comments CHOLESTEROL (test code = 2210) 235 MG/DL TRIGLYCERIDES (test code = 2232) 127 MG/DL HDL CHOLESTEROL (test code = 2220) 46 MG/DL CALC LDL CHOL (test code = 2237) 164 MG/DL RISK RATIO LDL/HDL (test code = 3.57 RATIO 2238) COMPREHENSIVE METABOLIC [id number] 00:00:00 Test Item Value Reference Range Interpretation Comments GLUCOSE (test code = 2217) 85 MG/DL BUN (test code = 2208) 12 MG/DL CREATININE (test code = 2214) 0.59 MG/DL eGFR (2020 CKD-EPI) (test 123 ML/MIN/1.73 code = 83664) CALC BUN/CREAT (test code = 20 RATIO [...] code = 2219) 16 U/L COMPREHENSIVE METABOLIC [id number] 00:00:00 Test Item Value Reference Range Interpretation Comments GLUCOSE (test code = 2217) 85 MG/DL BUN (test code = 2208) 12 MG/DL CREATININE (test code = 2214) 0.59 MG/DL eGFR (2020 CKD-EPI) (test 123 ML/MIN/1.73 code = 06347) CALC BUN/CREAT (test code = 20 RATIO [...] ALT (test code = 2219) 16 U/L [id number] 00:00:00 Test Item Value Reference Range Interpretation Comments TSH, THIRD GENERATION (test code 7.090 UIU/ML = 2821) [id number] 00:00:00 Test Item Value Reference Range Interpretation Comments TSH, THIRD GENERATION (test code 7.090 UIU/ML = 2821) [id number] 00:00:00 Test Item Value Reference Range Interpretation Comments TSH, THIRD GENERATION (test code 7.090 UIU/ML = 2821) LIPID [id number] 00:00:00 Test Item Value Reference Range Interpretation Comments CHOLESTEROL (test code = 2210) 235 MG/DL TRIGLYCERIDES (test code = 2232) 127 MG/DL HDL CHOLESTEROL (test code = 2220) 46 MG/DL CALC LDL CHOL (test code = 2237) 164 MG/DL RISK RATIO LDL/HDL (test code = 3.57 RATIO 2238) LIPID [id number] 00:00:00 Test Item Value Reference Range Interpretation Comments CHOLESTEROL (test code = 2210) 235 MG/DL TRIGLYCERIDES (test code = 2232) 127 MG/DL HDL CHOLESTEROL (test code = 2220) 46 MG/DL CALC LDL CHOL (test code = 2237) 164 MG/DL RISK RATIO LDL/HDL (test code = 3.57 RATIO 2238) COMPREHENSIVE METABOLIC [id number] 00:00:00 Test Item Value Reference Range Interpretation Comments GLUCOSE (test code = 2217) 85 MG/DL BUN (test code = 2208) 12 MG/DL CREATININE (test code = 2214) 0.59 MG/DL eGFR (2020 CKD-EPI) (test 123 ML/MIN/1.73 code = 17336) CALC BUN/CREAT (test code = 20 RATIO [...] code = 2219) 16 U/L COMPREHENSIVE METABOLIC [id number] 00:00:00 Test Item Value Reference Range Interpretation Comments GLUCOSE (test code = 2217) 85 MG/DL BUN (test code = 2208) 12 MG/DL CREATININE (test code = 2214) 0.59 MG/DL eGFR (2020 CKD-EPI) (test 123 ML/MIN/1.73 code = 53706) CALC BUN/CREAT (test code = 20 RATIO [...] ALT (test code = 2219) 16 U/L [id number] 00:00:00 Test Item Value Reference Range Interpretation Comments TSH, THIRD GENERATION (test code 7.090 UIU/ML = 2821) [id number] 00:00:00 Test Item Value Reference Range Interpretation Comments TSH, THIRD GENERATION (test code 7.090 UIU/ML = 2821) [id number] 00:00:00 Test Item Value Reference Range Interpretation Comments TSH, THIRD GENERATION (test code 7.090 UIU/ML = 2821) LIPID [id number] 00:00:00 Test Item Value Reference Range Interpretation Comments CHOLESTEROL (test code = 2210) 235 MG/DL TRIGLYCERIDES (test code = 2232) 127 MG/DL HDL CHOLESTEROL (test code = 2220) 46 MG/DL CALC LDL CHOL (test code = 2237) 164 MG/DL RISK RATIO LDL/HDL (test code = 3.57 RATIO 2238) COMPREHENSIVE METABOLIC [id number] 00:00:00 Test Item Value Reference Range Interpretation Comments GLUCOSE (test code = 2217) 85 MG/DL BUN (test code = 2208) 12 MG/DL CREATININE (test code = 2214) 0.59 MG/DL eGFR (2020 CKD-EPI) (test 123 ML/MIN/1.73 code = 29480) CALC BUN/CREAT (test code = 20 RATIO [...] ALT (test code = 2219) 16 U/L [id number] 00:00:00 Test Item Value Reference Range Interpretation Comments TSH, THIRD GENERATION (test code 7.090 UIU/ML = 2821) [id number] 00:00:00 Test Item Value Reference Range Interpretation Comments TSH, THIRD GENERATION (test code 7.090 UIU/ML = 2821) LIPID [id number] 00:00:00 Test Item Value Reference Range Interpretation Comments CHOLESTEROL (test code = 2210) 235 MG/DL TRIGLYCERIDES (test code = 2232) 127 MG/DL HDL CHOLESTEROL (test code = 2220) 46 MG/DL CALC LDL CHOL (test code = 2237) 164 MG/DL RISK RATIO LDL/HDL (test code = 3.57 RATIO 2238) LIPID [id number] 00:00:00 Test Item Value Reference Range Interpretation Comments CHOLESTEROL (test code = 2210) 235 MG/DL TRIGLYCERIDES (test code = 2232) 127 MG/DL HDL CHOLESTEROL (test code = 2220) 46 MG/DL CALC LDL CHOL (test code = 2237) 164 MG/DL RISK RATIO LDL/HDL (test code = 3.57 RATIO 2238) COMPREHENSIVE METABOLIC [id number] 00:00:00 Test Item Value Reference Range Interpretation Comments GLUCOSE (test code = 2217) 85 MG/DL BUN (test code = 2208) 12 MG/DL CREATININE (test code = 2214) 0.59 MG/DL eGFR (2020 CKD-EPI) (test 123 ML/MIN/1.73 code = 97424) CALC BUN/CREAT (test code = 20 RATIO [...] code = 2219) 16 U/L COMPREHENSIVE METABOLIC [id number] 00:00:00 Test Item Value Reference Range Interpretation Comments GLUCOSE (test code = 2217) 85 MG/DL BUN (test code = 2208) 12 MG/DL CREATININE (test code = 2214) 0.59 MG/DL eGFR (2020 CKD-EPI) (test 123 ML/MIN/1.73 code = 49819) CALC BUN/CREAT (test code = 20 RATIO [...] ALT (test code = 2219) 16 U/L [id number] 00:00:00 Test Item Value Reference Range Interpretation Comments TSH, THIRD GENERATION (test code 7.090 UIU/ML = 2821) [id number] 00:00:00 Test Item Value Reference Range Interpretation Comments TSH, THIRD GENERATION (test code 7.090 UIU/ML = 2821) [id number] 00:00:00 Test Item Value Reference Range Interpretation Comments TSH, THIRD GENERATION (test code 7.090 UIU/ML = 2821) TROPONIN [id number] 21:03:34 Test Item Value Reference Interpretation Comments Range TROPONIN I (test 0.000 ng/mL See_Comment [Automated code = [id number]) message] The system which generated this result [...] biotin. Lab Interpretation Normal (test code = 11753-4) [id number] 20:45[facility]29 Test Item Value Reference Interpretation Comments Range D-DIMER (test code = See_Comment [Autom ated [id number]) message] The system which generated this result [...] diagnosis. Lab Interpretation Normal (test code = 08499-8) [facility] WITH [id number] 19:14:30 Test Item Value Reference Range Interpretation Comments WBC (test code = See_Comment [Automated 6690-2) message] The sy stem which generated this [...] RDW-SD (test code = 42.2 fL 39.0-49.9 81950-8) RDW-CV (test code = 13.1 % 12.0-15.5 788-0) PLT (test code = See_Comment [Automated 777-3) message] The sy stem which generated this result transmitted reference range : 166 - 358 10*3/ ?L. The reference r ana laura was not used to interpret this result as normal/abnormal . MPV (test code = 9.6 fL 9.5-12.9 77919-1) NRBC/100 WBC (test See_Comment [Automat ed code = 4019894834) message] The system which generated this result transmitted reference range : 0.0 - 10.0 /100 WBCs. The refer ence range was not u sed to interpret th is result as normal/abnormal . NRBC x10^3 (test code <0.01 See_Comment [Auto mated = 9626816360) message] The s [employer] which generated this result transmitted reference range : 10*3/?L. The reference range was not used to interpret this result as normal/abnormal . GRAN MAT (NEUT) % 43.7 % (test code = 770-8) IMM GRAN % (test code 0.50 % = 7070496835) LYMPH % (test code = 46.2 % 736-9) MONO % (test code = 6.2 % 5905-5) EOS % (test code = 2.8 % 713-8) BASO % (test code = 0.6 % 706-2) GRAN MAT x10^3(ANC) 4.77 10*3/uL 1.88-7.09 (test code = 1688773551) IMM GRAN x10^3 (test 0.05 10*3/uL 0.00-0.06 code = 8104703790) LYMPH x10^3 (test code 5.05 10*3/uL 1.32-3.29 H = 731-0) MONO x10^3 (test code 0.68 10*3/uL 0.33-0.92 = 742-7) EOS x10^3 (test code = 0.31 10*3/uL 0.03-0.39 711-2) BASO x10^3 (test code 0.07 10*3/uL 0.01-0.07 = 704-7) Lab Interpretation Abnormal (test code = 28171-6) [id number] 18:39:27 Test Item Value Reference Interpretation Comments Range TROPONIN I (test 0.001 ng/mL See_Comment [Automated code = 1506425620) message] The system which generated this result [...] biotin. Lab Interpretation Normal (test code = 71752-5) [facility]. METABOLIC PANEL (74573)2021-07-27 18:29:25 Test Item Value Reference Range Interpretation Comments NA (test code = 137 mmol/L 135-145 9625161094) K (test code = 4.5 mmol/L 3.5-5.0 9279369099) CL (test code = 104 mmol/L 98-108 8071093677) CO2 TOTAL (test code 26 mmol/L 23-31 = 6223106521) AGAP (test code = 2-16 6793384814) BUN (test code = 10 mg/dL 7-23 6225296564) GLUCOSE (test code = 87 mg/dL 70-110 9633472801) CREATININE (test code 0.59 mg/dL 0.50-1.04 = 9915875145) TOTAL BILI (test code 0.4 mg/dL 0.1-1.1 = 3745757444) CALCIUM (test code = 9.6 mg/dL 8.6-10.6 2443007121) T PROTEIN (test code 7.1 g/dL 6.3-8.2 = 2985334731) ALBUMIN (test code = 4.2 g/dL 3.5-5.0 7049570079) ALK PHOS (test code = 88 U/L 34-122 0291295089) ALTv (test code = 22 U/L 5-35 1742-6) AST(SGOT) (test code 25 U/L 13-40 = 6536278376) eGFR (test code = mL/min/1.73m2 6788355072) MACI (test code = MACI) Association of [...] or urine or abnormalities in imaging tests). [facility] Test Item Value Reference Range Interpretation Comments MAGNESIUM (test code = 5622958156) 1.8 mg/dL 1.7-2.4 Lab Interpretation (test code = Normal 12593-3) [facility] [id number] 18:28:00 Test Item Value Reference Range Interpretation Comments POCT PREG (test code = 1605) negative POCT PREG LOT # (test code = 3575) [id number] POCT PREG TEST DATE (test 2022-09-12 code = 3576) Lab Interpretation (test code = Normal 76006-7) [facility] [id number] 19:26:00 Test Item Value Reference Range Interpretation Comments POCT PREG (test code = 1605) Negative On board controls acceptable with C Yes Line (test code = 3574) POCT PREG LOT # (test code = 3575) POCT PREG TEST DATE (test code = 3576) Lab Interpretation (test code = Normal 99373-5) [facility] [id number] 19:26:00 Test Item Value Reference Range Interpretation Comments POCT PREG (test code = 1605) Negative On board controls acceptable with C Yes Line (test code = 3574) POCT PREG LOT # (test code = 3575) POCT PREG TEST DATE (test code = 3576) Lab Interpretation (test code = Normal 90654-4) [facility] [id number] 19:26:00 Test Item Value Reference Range Interpretation Comments POCT PREG (test code = 1605) Negative On board controls acceptable with C Yes Line (test code = 3574) POCT PREG LOT # (test code = 3575) POCT PREG TEST DATE (test code = 3576) Lab Interpretation (test code = Normal 79639-6) [facility] by RT-PCR (HIGH RISK) 2020-12-15 00:00:00 Test Item Value Reference Range Interpretation Comments SARS-CoV-2 INTERPRETATION (test NEGATIVE code = 62707) SOURCE (test code = 33143) NOT SPECIFIED SARS-CoV-2 (COVID-19) by RT-PCR (HIGH RISK)2020-12-15 00:00:00 Test Item Value Reference Range Interpretation Comments SARS-CoV-2 INTERPRETATION (test NEGATIVE code = 95915) SOURCE (test code = 85444) NOT SPECIFIED SARS-CoV-2 (COVID-19) by RT-PCR (HIGH RISK)2020-12-15 00:00:00 Test Item Value Reference Range Interpretation Comments SARS-CoV-2 INTERPRETATION (test NEGATIVE code = 83886) SOURCE (test code = 07595) NOT SPECIFIED SARS-CoV-2 (COVID-19) by RT-PCR (HIGH RISK)2020-12-15 00:00:00 Test Item Value Reference Range Interpretation Comments SARS-CoV-2 INTERPRETATION (test NEGATIVE code = 21512) SOURCE (test code = 69862) NOT SPECIFIED SARS-CoV-2 (COVID-19) by RT-PCR (HIGH RISK)2020-12-15 00:00:00 Test Item Value Reference Range Interpretation Comments SARS-CoV-2 INTERPRETATION (test NEGATIVE code = 21888) SOURCE (test code = 13690) NOT SPECIFIED SARS-CoV-2 (COVID-19) by RT-PCR (HIGH RISK)2020-12-15 00:00:00 Test Item Value Reference Range Interpretation Comments SARS-CoV-2 INTERPRETATION (test NEGATIVE code = 14882) SOURCE (test code = 64656) NOT SPECIFIED SARS-CoV-2 (COVID-19) by RT-PCR (HIGH RISK)2020-12-15 00:00:00 Test Item Value Reference Range Interpretation Comments SARS-CoV-2 INTERPRETATION (test NEGATIVE code = 39746) SOURCE (test code = 25467) NOT SPECIFIED SARS-CoV-2 (COVID-19) by RT-PCR (HIGH RISK)2020-12-15 00:00:00 Test Item Value Reference Range Interpretation Comments SARS-CoV-2 INTERPRETATION (test NEGATIVE code = 11221) SOURCE (test code = 44387) NOT SPECIFIED SARS-CoV-2 (COVID-19) by RT-PCR (HIGH RISK)2020-12-15 00:00:00 Test Item Value Reference Range Interpretation Comments SARS-CoV-2 INTERPRETATION (test NEGATIVE code = 98218) SOURCE (test code = 92845) NOT SPECIFIED POCT [id number] 20:47:00 Test Item Value Reference Range Interpretation Comments POCT PREG (test code = 1605) Negative On board controls acceptable with C Yes Line (test code = 3574) POCT PREG LOT # (test code = 3575) POCT PREG TEST DATE (test code = 3576) Lab Interpretation (test code = Normal 66238-3) [facility] [id number] 20:47:00 Test Item Value Reference Range Interpretation Comments POCT PREG (test code = 1605) Negative On board controls acceptable with C Yes Line (test code = 3574) POCT PREG LOT # (test code = 3575) POCT PREG TEST DATE (test code = 3576) Lab Interpretation (test code = Normal 71529-9) [facility] HospitalGC AND CHLAMYDIA AMPLIFIED, [id number] 00:00:00 Test Item Value Reference Range Interpretation Comments GONORRHEA, TMA (test code = 64532) NEGATIVE CHLAMYDIA, TMA (test code = 44751) NEGATIVE ACUTE HEPATITIS [id number] 00:00:00 Test Item Value Reference Range Interpretation Comments HEPATITIS A IgM (test code = NON-REACTIVE 48557) HEPATITIS B CORE IgM (test code NON-REACTIVE = 9644) HEPATITIS B SURF AG (test code = NON-REACTIVE 4109) HEPATITIS C ANTIBODY (test code NON-REACTIVE = 4675) INTERPRETATION HEPATITIS A: (NOTE) (test code = 2552) INTERPRETATION HEPATITIS B: (NOTE) (test code = 60790) INTERPRETATION HEPATITIS C: (NOTE) (test code = 31825) PAP TEST, THINPREP, [id number] 00:00:00 Test Item Value Reference Range Interpretation Comments SOURCE: (test code = Endocervical 8001) SLIDES: (test code = 1 8011) LMP: (test code = 10/2020 8021) SPECIMEN ADEQUACY: (NOTE) (test code = 02664) INTERPRETATION: (test NILM/NO EPITH. code = 07234) ABNORMALITY;SEE BELOW ORDER PACKER OR PACKAGER: RANJEET Riley(ASCP)IAC (test code = 8101) LOCATION: (test code (NOTE) = 07988) CPT: (test code = (NOTE) 8140) ACUTE HEPATITIS [id number] 00:00:00 Test Item Value Reference Range Interpretation Comments HEPATITIS A IgM (test code = NON-REACTIVE 09363) HEPATITIS B CORE IgM (test code NON-REACTIVE = 4644) HEPATITIS B SURF AG (test code = NON-REACTIVE 2739) HEPATITIS C ANTIBODY (test code NON-REACTIVE = 4675) INTERPRETATION HEPATITIS A: (NOTE) (test code = 2552) INTERPRETATION HEPATITIS B: (NOTE) (test code = 15824) INTERPRETATION HEPATITIS C: (NOTE) (test code = 67277) PAP TEST, THINPREP, [id number] 00:00:00 Test Item Value Reference Range Interpretation Comments SOURCE: (test code = Endocervical 8001) SLIDES: (test code = 1 8011) LMP: (test code = 10/2020 8021) SPECIMEN ADEQUACY: (NOTE) (test code = 93650) INTERPRETATION: (test NILM/NO EPITH. code = 65293) ABNORMALITY;SEE BELOW ORDER PACKER OR PACKAGER: RANJEET Riley(ASCP)IAC (test code = 8101) LOCATION: (test code (NOTE) = 35686) CPT: (test code = (NOTE) 8140) HPV HIGH RISK WITH GENOTYPE, [id number] 00:00:00 Test Item Value Reference Range Interpretation Comments HPV HIGH RISK INTERP (test code = NEGATIVE 36833) HPV 16 (test code = 73097) NEGATIVE HPV 18 (test code = 96295) NEGATIVE HPV, HR, OTHER GENOTYPES (test code NEGATIVE = 45376) [id number] 00:00:00 Test Item Value Reference Range Interpretation Comments RPR RESULT (test code = NON-REACTIVE 3501) RPR TITER (test code = 3500) NOT INDIC. TITER [id number] 00:00:00 Test Item Value Reference Range Interpretation Comments RPR RESULT (test code = NON-REACTIVE 3501) RPR TITER (test code = 3500) NOT INDIC. TITER HPV HIGH RISK WITH GENOTYPE, [id number] 00:00:00 Test Item Value Reference Range Interpretation Comments HPV HIGH RISK INTERP (test code = NEGATIVE 42120) HPV 16 (test code = 05530) NEGATIVE HPV 18 (test code = 60119) NEGATIVE HPV, HR, OTHER GENOTYPES (test code NEGATIVE = 38044) [id number] 00:00:00 Test Item Value Reference Range Interpretation Comments RPR RESULT (test code = NON-REACTIVE 3501) RPR TITER (test code = 3500) NOT INDIC. TITER VAGINAL PATHOGENS DNA [id number] 00:00:00 Test Item Value Reference Range Interpretation Comments ANNE MARIE SPECIES (test code = 49380) NEGATIVE G. VAGINALIS (test code = 71469) NEGATIVE T. VAGINALIS (test code = 35723) NEGATIVE VAGINAL PATHOGENS DNA [id number] 00:00:00 Test Item Value Reference Range Interpretation Comments ANNE MARIE SPECIES (test code = 85774) NEGATIVE G. VAGINALIS (test code = 10303) NEGATIVE T. VAGINALIS (test code = 27306) NEGATIVE GC AND CHLAMYDIA AMPLIFIED, [id number] 00:00:00 Test Item Value Reference Range Interpretation Comments GONORRHEA, TMA (test code = 53170) NEGATIVE CHLAMYDIA, TMA (test code = 39401) NEGATIVE HIV AB/AG COMBO RFLX [id number] 00:00:00 Test Item Value Reference Range Interpretation Comments HIV 1/2 4TH GEN, RFLX CONF (test NON-REACTIVE code = 3514) GC AND CHLAMYDIA AMPLIFIED, [id number] 00:00:00 Test Item Value Reference Range Interpretation Comments GONORRHEA, TMA (test code = 41740) NEGATIVE CHLAMYDIA, TMA (test code = 68096) NEGATIVE HIV AB/AG COMBO RFLX [id number] 00:00:00 Test Item Value Reference Range Interpretation Comments HIV 1/2 4TH GEN, RFLX CONF (test NON-REACTIVE code = 3514) ACUTE HEPATITIS [id number] 00:00:00 Test Item Value Reference Range Interpretation Comments HEPATITIS A IgM (test code = NON-REACTIVE 01670) HEPATITIS B CORE IgM (test code NON-REACTIVE = 4644) HEPATITIS B SURF AG (test code = NON-REACTIVE 2739) HEPATITIS C ANTIBODY (test code NON-REACTIVE = 4675) INTERPRETATION HEPATITIS A: (NOTE) (test code = 2552) INTERPRETATION HEPATITIS B: (NOTE) (test code = 81956) INTERPRETATION HEPATITIS C: (NOTE) (test code = 75860) PAP TEST, THINPREP, [id number] 00:00:00 Test Item Value Reference Range Interpretation Comments SOURCE: (test code = Endocervical 8001) SLIDES: (test code = 1 8011) LMP: (test code = 10/2020 8021) SPECIMEN ADEQUACY: (NOTE) (test code = 52723) INTERPRETATION: (test NILM/NO EPITH. code = 71578) ABNORMALITY;SEE BELOW ORDER PACKER OR PACKAGER: RANJEET Riley(ASCP)IAC (test code = 8101) LOCATION: (test code (NOTE) = 52835) CPT: (test code = (NOTE) 8140) ACUTE HEPATITIS [id number] 00:00:00 Test Item Value Reference Range Interpretation Comments HEPATITIS A IgM (test code = NON-REACTIVE 80012) HEPATITIS B CORE IgM (test code NON-REACTIVE = 4644) HEPATITIS B SURF AG (test code = NON-REACTIVE 2739) HEPATITIS C ANTIBODY (test code NON-REACTIVE = 4675) INTERPRETATION HEPATITIS A: (NOTE) (test code = 2552) INTERPRETATION HEPATITIS B: (NOTE) (test code = 18412) INTERPRETATION HEPATITIS C: (NOTE) (test code = 34287) PAP TEST, THINPREP, [id number] 00:00:00 Test Item Value Reference Range Interpretation Comments SOURCE: (test code = Endocervical 8001) SLIDES: (test code = 1 8011) LMP: (test code = 10/2020 8021) SPECIMEN ADEQUACY: (NOTE) (test code = 32501) INTERPRETATION: (test NILM/NO EPITH. code = 66356) ABNORMALITY;SEE BELOW ORDER PACKER OR PACKAGER: RANJEET Riley(ASCP)IAC (test code = 8101) LOCATION: (test code (NOTE) = 88695) CPT: (test code = (NOTE) 8140) [id number] 00:00:00 Test Item Value Reference Range Interpretation Comments RPR RESULT (test code = NON-REACTIVE 3501) RPR TITER (test code = 3500) NOT INDIC. TITER HPV HIGH RISK WITH GENOTYPE, [id number] 00:00:00 Test Item Value Reference Range Interpretation Comments HPV HIGH RISK INTERP (test code = NEGATIVE 77288) HPV 16 (test code = 91648) NEGATIVE HPV 18 (test code = 96091) NEGATIVE HPV, HR, OTHER GENOTYPES (test code NEGATIVE = 18140) [id number] 00:00:00 Test Item Value Reference Range Interpretation Comments RPR RESULT (test code = NON-REACTIVE 3501) RPR TITER (test code = 3500) NOT INDIC. TITER [id number] 00:00:00 Test Item Value Reference Range Interpretation Comments RPR RESULT (test code = NON-REACTIVE 3501) RPR TITER (test code = 3500) NOT INDIC. TITER HPV HIGH RISK WITH GENOTYPE, [id number] 00:00:00 Test Item Value Reference Range Interpretation Comments HPV HIGH RISK INTERP (test code = NEGATIVE 90535) HPV 16 (test code = 56938) NEGATIVE HPV 18 (test code = 68163) NEGATIVE HPV, HR, OTHER GENOTYPES (test code NEGATIVE = 39893) VAGINAL PATHOGENS DNA [id number] 00:00:00 Test Item Value Reference Range Interpretation Comments ANNE MARIE SPECIES (test code = 29185) NEGATIVE G. VAGINALIS (test code = 79527) NEGATIVE T. VAGINALIS (test code = 70194) NEGATIVE VAGINAL PATHOGENS DNA [id number] 00:00:00 Test Item Value Reference Range Interpretation Comments ANNE MARIE SPECIES (test code = 95074) NEGATIVE G. VAGINALIS (test code = 54365) NEGATIVE T. VAGINALIS (test code = 79994) NEGATIVE HIV AB/AG COMBO RFLX [id number] 00:00:00 Test Item Value Reference Range Interpretation Comments HIV 1/2 4TH GEN, RFLX CONF (test NON-REACTIVE code = 3514) GC AND CHLAMYDIA AMPLIFIED, [id number] 00:00:00 Test Item Value Reference Range Interpretation Comments GONORRHEA, TMA (test code = 49304) NEGATIVE CHLAMYDIA, TMA (test code = 00618) NEGATIVE HIV AB/AG COMBO RFLX [id number] 00:00:00 Test Item Value Reference Range Interpretation Comments HIV 1/2 4TH GEN, RFLX CONF (test NON-REACTIVE code = 3514) GC AND CHLAMYDIA AMPLIFIED, [id number] 00:00:00 Test Item Value Reference Range Interpretation Comments GONORRHEA, TMA (test code = 34490) NEGATIVE CHLAMYDIA, TMA (test code = 40205) NEGATIVE ACUTE HEPATITIS [id number] 00:00:00 Test Item Value Reference Range Interpretation Comments HEPATITIS A IgM (test code = NON-REACTIVE 37716) HEPATITIS B CORE IgM (test code NON-REACTIVE = 4644) HEPATITIS B SURF AG (test code = NON-REACTIVE 2739) HEPATITIS C ANTIBODY (test code NON-REACTIVE = 4675) INTERPRETATION HEPATITIS A: (NOTE) (test code = 2552) INTERPRETATION HEPATITIS B: (NOTE) (test code = 45920) INTERPRETATION HEPATITIS C: (NOTE) (test code = 17954) PAP TEST, THINPREP, [id number] 00:00:00 Test Item Value Reference Range Interpretation Comments SOURCE: (test code = Endocervical 8001) SLIDES: (test code = 1 8011) LMP: (test code = 10/2020 8021) SPECIMEN ADEQUACY: (NOTE) (test code = 91947) INTERPRETATION: (test NILM/NO EPITH. code = 91582) ABNORMALITY;SEE BELOW ORDER PACKER OR PACKAGER: RANJEET Riley(ASCP)IAC (test code = 8101) LOCATION: (test code (NOTE) = 77055) CPT: (test code = (NOTE) 8140) ACUTE HEPATITIS [id number] 00:00:00 Test Item Value Reference Range Interpretation Comments HEPATITIS A IgM (test code = NON-REACTIVE 14150) HEPATITIS B CORE IgM (test code NON-REACTIVE = 4644) HEPATITIS B SURF AG (test code = NON-REACTIVE 2739) HEPATITIS C ANTIBODY (test code NON-REACTIVE = 4675) INTERPRETATION HEPATITIS A: (NOTE) (test code = 2552) INTERPRETATION HEPATITIS B: (NOTE) (test code = 07966) INTERPRETATION HEPATITIS C: (NOTE) (test code = 70722) PAP TEST, THINPREP, [id number] 00:00:00 Test Item Value Reference Range Interpretation Comments SOURCE: (test code = Endocervical 8001) SLIDES: (test code = 1 8011) LMP: (test code = 10/2020 8021) SPECIMEN ADEQUACY: (NOTE) (test code = 10736) INTERPRETATION: (test NILM/NO EPITH. code = 29305) ABNORMALITY;SEE BELOW ORDER PACKER OR PACKAGER: RANJEET Riley(ASCP)IAC (test code = 8101) LOCATION: (test code (NOTE) = 10677) CPT: (test code = (NOTE) 8140) HPV HIGH RISK WITH GENOTYPE, [id number] 00:00:00 Test Item Value Reference Range Interpretation Comments HPV HIGH RISK INTERP (test code = NEGATIVE 60895) HPV 16 (test code = 07915) NEGATIVE HPV 18 (test code = 54308) NEGATIVE HPV, HR, OTHER GENOTYPES (test code NEGATIVE = 32779) [id number] 00:00:00 Test Item Value Reference Range Interpretation Comments RPR RESULT (test code = NON-REACTIVE 3501) RPR TITER (test code = 3500) NOT INDIC. TITER [id number] 00:00:00 Test Item Value Reference Range Interpretation Comments RPR RESULT (test code = NON-REACTIVE 3501) RPR TITER (test code = 3500) NOT INDIC. TITER HPV HIGH RISK WITH GENOTYPE, [id number] 00:00:00 Test Item Value Reference Range Interpretation Comments HPV HIGH RISK INTERP (test code = NEGATIVE 81611) HPV 16 (test code = 54619) NEGATIVE HPV 18 (test code = 19231) NEGATIVE HPV, HR, OTHER GENOTYPES (test code NEGATIVE = 36574) [id number] 00:00:00 Test Item Value Reference Range Interpretation Comments RPR RESULT (test code = NON-REACTIVE 3501) RPR TITER (test code = 3500) NOT INDIC. TITER VAGINAL PATHOGENS DNA [id number] 00:00:00 Test Item Value Reference Range Interpretation Comments ANNE MARIE SPECIES (test code = ) NEGATIVE G. VAGINALIS (test code = ) NEGATIVE T. VAGINALIS (test code = ) NEGATIVE VAGINAL PATHOGENS DNA [id number] 00:00:00 Test Item Value Reference Range Interpretation Comments ANNE MARIE SPECIES (test code = ) NEGATIVE G. VAGINALIS (test code = ) NEGATIVE T. VAGINALIS (test code = ) NEGATIVE GC AND CHLAMYDIA AMPLIFIED, [id number] 00:00:00 Test Item Value Reference Range Interpretation Comments GONORRHEA, TMA (test code = 40502) NEGATIVE CHLAMYDIA, TMA (test code = 55574) NEGATIVE HIV AB/AG COMBO RFLX [id number] 00:00:00 Test Item Value Reference Range Interpretation Comments HIV 1/2 4TH GEN, RFLX CONF (test NON-REACTIVE code = 3514) ACUTE HEPATITIS [id number] 00:00:00 Test Item Value Reference Range Interpretation Comments HEPATITIS A IgM (test code = NON-REACTIVE 24766) HEPATITIS B CORE IgM (test code NON-REACTIVE = 0179) HEPATITIS B SURF AG (test code = NON-REACTIVE 8494) HEPATITIS C ANTIBODY (test code NON-REACTIVE = 4623) INTERPRETATION HEPATITIS A: (NOTE) (test code = 2552) INTERPRETATION HEPATITIS B: (NOTE) (test code = 43335) INTERPRETATION HEPATITIS C: (NOTE) (test code = 56773) PAP TEST, THINPREP, [id number] 00:00:00 Test Item Value Reference Range Interpretation Comments SOURCE: (test code = Endocervical 8001) SLIDES: (test code = 1 8011) LMP: (test code = 10/2020 8021) SPECIMEN ADEQUACY: (NOTE) (test code = 28015) INTERPRETATION: (test NILM/NO EPITH. code = 94538) ABNORMALITY;SEE BELOW ORDER PACKER OR PACKAGER: RANJEET Riley(ASCP)IAC (test code = 8101) LOCATION: (test code (NOTE) = 08367) CPT: (test code = (NOTE) 8140) HPV HIGH RISK WITH GENOTYPE, [id number] 00:00:00 Test Item Value Reference Range Interpretation Comments HPV HIGH RISK INTERP (test code = NEGATIVE 37735) HPV 16 (test code = 51534) NEGATIVE HPV 18 (test code = 23485) NEGATIVE HPV, HR, OTHER GENOTYPES (test code NEGATIVE = 81220) [id number] 00:00:00 Test Item Value Reference Range Interpretation Comments RPR RESULT (test code = NON-REACTIVE 3501) RPR TITER (test code = 3500) NOT INDIC. TITER [id number] 00:00:00 Test Item Value Reference Range Interpretation Comments RPR RESULT (test code = NON-REACTIVE 3501) RPR TITER (test code = 3500) NOT INDIC. TITER VAGINAL PATHOGENS DNA [id number] 00:00:00 Test Item Value Reference Range Interpretation Comments ANNE MARIE SPECIES (test code = ) NEGATIVE G. VAGINALIS (test code = ) NEGATIVE T. VAGINALIS (test code = ) NEGATIVE GC AND CHLAMYDIA AMPLIFIED, [id number] 00:00:00 Test Item Value Reference Range Interpretation Comments GONORRHEA, TMA (test code = 84476) NEGATIVE CHLAMYDIA, TMA (test code = 86503) NEGATIVE GC AND CHLAMYDIA AMPLIFIED, [id number] 00:00:00 Test Item Value Reference Range Interpretation Comments GONORRHEA, TMA (test code = 40560) NEGATIVE CHLAMYDIA, TMA (test code = 10653) NEGATIVE HIV AB/AG COMBO RFLX [id number] 00:00:00 Test Item Value Reference Range Interpretation Comments HIV 1/2 4TH GEN, RFLX CONF (test NON-REACTIVE code = 3514) HIV AB/AG COMBO RFLX [id number] 00:00:00 Test Item Value Reference Range Interpretation Comments HIV 1/2 4TH GEN, RFLX CONF (test NON-REACTIVE code = 3514) PAP TEST, THINPREP, [id number] 00:00:00 Test Item Value Reference Range Interpretation Comments SOURCE: (test code = Endocervical 8001) SLIDES: (test code = 1 8011) LMP: (test code = 10/2020 8021) SPECIMEN ADEQUACY: (NOTE) (test code = 95301) INTERPRETATION: (test NILM/NO EPITH. code = 56261) ABNORMALITY;SEE BELOW ORDER PACKER OR PACKAGER: RANJEET Riley(ASCP)JESSICA (test code = 8101) LOCATION: (test code (NOTE) = 37993) CPT: (test code = (NOTE) 8140) ACUTE HEPATITIS [id number] 00:00:00 Test Item Value Reference Range Interpretation Comments HEPATITIS A IgM (test code = NON-REACTIVE 01109) HEPATITIS B CORE IgM (test code NON-REACTIVE = 4644) HEPATITIS B SURF AG (test code = NON-REACTIVE 2739) HEPATITIS C ANTIBODY (test code NON-REACTIVE = 4675) INTERPRETATION HEPATITIS A: (NOTE) (test code = 2552) INTERPRETATION HEPATITIS B: (NOTE) (test code = 14305) INTERPRETATION HEPATITIS C: (NOTE) (test code = 95062) PAP TEST, THINPREP, [id number] 00:00:00 Test Item Value Reference Range Interpretation Comments SOURCE: (test code = Endocervical 8001) SLIDES: (test code = 1 8011) LMP: (test code = 10/2020 8021) SPECIMEN ADEQUACY: (NOTE) (test code = 93810) INTERPRETATION: (test NILM/NO EPITH. code = 83824) ABNORMALITY;SEE BELOW ORDER PACKER OR PACKAGER: RANJEET Riley(ASCP)IAC (test code = 8101) LOCATION: (test code (NOTE) = 15748) CPT: (test code = (NOTE) 8140) ACUTE HEPATITIS [id number] 00:00:00 Test Item Value Reference Range Interpretation Comments HEPATITIS A IgM (test code = NON-REACTIVE 15793) HEPATITIS B CORE IgM (test code NON-REACTIVE = 4644) HEPATITIS B SURF AG (test code = NON-REACTIVE 2739) HEPATITIS C ANTIBODY (test code NON-REACTIVE = 4675) INTERPRETATION HEPATITIS A: (NOTE) (test code = 2552) INTERPRETATION HEPATITIS B: (NOTE) (test code = 43045) INTERPRETATION HEPATITIS C: (NOTE) (test code = 76060) [id number] 00:00:00 Test Item Value Reference Range Interpretation Comments RPR RESULT (test code = NON-REACTIVE 3501) RPR TITER (test code = 3500) NOT INDIC. TITER HPV HIGH RISK WITH GENOTYPE, [id number] 00:00:00 Test Item Value Reference Range Interpretation Comments HPV HIGH RISK INTERP (test code = NEGATIVE 71111) HPV 16 (test code = 90309) NEGATIVE HPV 18 (test code = 66200) NEGATIVE HPV, HR, OTHER GENOTYPES (test code NEGATIVE = 74465) [id number] 00:00:00 Test Item Value Reference Range Interpretation Comments RPR RESULT (test code = NON-REACTIVE 3501) RPR TITER (test code = 3500) NOT INDIC. TITER [id number] 00:00:00 Test Item Value Reference Range Interpretation Comments RPR RESULT (test code = NON-REACTIVE 3501) RPR TITER (test code = 3500) NOT INDIC. TITER HPV HIGH RISK WITH GENOTYPE, [id number] 00:00:00 Test Item Value Reference Range Interpretation Comments HPV HIGH RISK INTERP (test code = NEGATIVE 36642) HPV 16 (test code = 34271) NEGATIVE HPV 18 (test code = 95946) NEGATIVE HPV, HR, OTHER GENOTYPES (test code NEGATIVE = 08906) VAGINAL PATHOGENS DNA [id number] 00:00:00 Test Item Value Reference Range Interpretation Comments ANNE MARIE SPECIES (test code = ) NEGATIVE G. VAGINALIS (test code = 63440) NEGATIVE T. VAGINALIS (test code = 73468) NEGATIVE VAGINAL PATHOGENS DNA [id number] 00:00:00 Test Item Value Reference Range Interpretation Comments ANNE MARIE SPECIES (test code = ) NEGATIVE G. VAGINALIS (test code = 53899) NEGATIVE T. VAGINALIS (test code = 83017) NEGATIVE GC AND CHLAMYDIA AMPLIFIED, [id number] 00:00:00 Test Item Value Reference Range Interpretation Comments GONORRHEA, TMA (test code = 26767) NEGATIVE CHLAMYDIA, TMA (test code = 96868) NEGATIVE HIV AB/AG COMBO RFLX [id number] 00:00:00 Test Item Value Reference Range Interpretation Comments HIV 1/2 4TH GEN, RFLX CONF (test NON-REACTIVE code = 3514) HIV AB/AG COMBO RFLX [id number] 00:00:00 Test Item Value Reference Range Interpretation Comments HIV 1/2 4TH GEN, RFLX CONF (test NON-REACTIVE code = 3514)
[2023-03-08 16:25] LABS: Specific Gravity 1.024 (1.005-1.030)
[2023-03-08 16:33] LABS: Specific Gravity 1.024 (1.005-1.030); Urine Bacteria <20 /HPF (<20); Urine Bilirubin NEGATIVE (Negative); Urine Blood Negative (Negative); Urine Clarity Turbid (Clear); Urine Color Light-Yellow (Yellow); Urine Glucose NEGATIVE (Negative); Urine Mucus Slight /HPF (None Seen); Urine Protein NEGATIVE (Negative); Urine RBC <5 /HPF (None Seen); Urine Urobilinogen Normal (Normal)
[2023-03-08 16:39] LABS: Barbiturates NEGATIVE (NEGATIVE); Benzodiazepines NEGATIVE (NEGATIVE); Cocaine NEGATIVE (NEGATIVE); METHAMPHETAM NEGATIVE (NEGATIVE); Methadone NEGATIVE (NEGATIVE); Opiates NEGATIVE (NEGATIVE); Phencyclidine NEGATIVE (NEGATIVE); THC Cannibis NEGATIVE (NEGATIVE)
[2023-03-08 16:44] LABS: Absolute Lymphocytes (CBC) 2.9 K/uL (0.7-4.9); Hematocrit 38.8 % (36.0-45.0); Lymphocytes % 28.8 % (15.3-44.8); MPV 7.7 fL (7.6-11.3); RBC Red Blood Cell Count 4.46 M/uL (3.86-4.86)
[2023-03-08 17:06] LABS: Protime INR 0.88
[2023-03-08 17:10] LABS: ALT/SGPT 29 U/L (13-56); AST/SGOT 13 U/L (15-37); Albumin 3.5 g/dL (3.4-5.0); Alkaline Phosphatase 70 U/L (45-117); BUN Blood Urea Nitrogen 17 mg/dL (7-18); Bicarbonate 20 mEq/L (21-32); Bilirubin Total 0.2 mg/dL (0.2-1.0); Glomerular Filtration Rate 68 ml/min (=/>90); Glucose Level 87 mg/dL (74-106); Potassium 3.6 mEq/L (3.5-5.1); Protein, Total 7.3 g/dL (6.4-8.2); Sodium Level 140 mEq/L (136-145)
[2023-03-08 17:14] LABS: Bilirubin Direct < 0.1 mg/dL (0-0.2); Bilirubin Indirect, Calculated ND mg/dL (0.2-0.8)
[2023-03-08] MEDS ORDERED: LORAZEPAM 1 MG TABLET ONE (19:37)
--- NOTE | 2023-03-08 19:53 | ER ---
Nurse's Notes [facility] Name: Claudine Morales Age: 32 yrs Sex: Female : 1990 Arrival Date: 03/08/2023 Time: 15:06 Bed 16 Private MD: Diagnosis: Unspecified mood [affective] disorder Presentation: 03/08 15:11 Method Of Arrival: Ambulatory aa5 15:11 Onset of symptoms was March 08, 2023. aa5 15:11 Coronavirus screen: At this time, the client does not indicate any symptoms associated aa5 with coronavirus-19. Ebola Screen: Patient denies travel to an Ebola-affected area in the 21 days before illness onset. Initial Sepsis Screen: Does the patient meet any 2 criteria? HR > 90 bpm. Does the patient have a suspected source of infection? No. Patient's initial sepsis screen is negative. Risk Assessment: Do you want to hurt yourself or someone else? Patient reports desire/thoughts of hurting themselves or someone else. Provider notified. 15:11 Acuity: VANDANA 2 aa5 15:11 Chief complaint: Patient states: "I was just at the store with my son and he was aa5 complaining about his arm hurting because he just got school shots and I was telling him that his arm doesn't hurt that bad so he just walked away and I don't know why but it just set me off and I started dragging him out the store by the arm and I was imagining smashing his head against the car and I knew it wasn't right". Pt states "I've been having this violent episodes for a while and today was just very scary". Pt states "On my way here I wanted to crash the car". Pt states "I had a tonsillectomy back in December and I got taken off the 17 meds I was on and slowly have been starting my medication regimen again but it's not working". Pt crying during triage. Triage Assessment: 15:15 General: Appears distressed, obese, Behavior is cooperative, appropriate for age, bp anxious. Pain: Denies pain. EENT: No deficits noted. Neuro: Level of Consciousness is awake, alert, obeys commands, Oriented to Appropriate for age. Cardiovascular: No deficits noted. Respiratory: No deficits noted. GI: No signs and/or symptoms were reported involving the gastrointestinal system. : No signs and/or symptoms were reported regarding the genitourinary system. Derm: No deficits noted. Musculoskeletal: No deficits noted. 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 - Social history:: Smoking status: Patient denies any tobacco usage or history of. Patient/guardian denies using alcohol, street drugs. Screenin:15 [facility] ED Fall Risk Assessment (Adult) History of falling in the last 3 months, bp including since admission No falls in past 3 months (0 pts). Abuse screen: Denies threats or abuse. Denies injuries from another. Nutritional screening: No deficits noted. Tuberculosis screening: No symptoms or risk factors identified. Assessment: 15:15 General: SEE TRIAGE NOTE. bp 17:47 Reassessment: SPEAKING WITH [employer] FOR TELEMEDICINE. bp 18:59 Reassessment: PT REMAINS ON LINE WITH [facility]. bp 19:18 Reassessment: Finished call with [facility]. vc1 20:43 Reassessment: Waiting on discharge contract from [facility]. Pt no longer a psych hold. vc1 at bedside. 21:53 Reassessment: No changes from previously documented assessment. Patient and/or family vc1 updated on plan of care and expected duration. Pain level reassessed. Patient is alert, oriented x 3, equal unlabored respirations, skin warm/dry/pink. Patient denies pain at this time. Patient states feeling better. Psych: 15:15 [place] Suicide Severity Screening: In the past month, have you wished you were bp or wished you could go to sleep and not wake up? Patient responds "yes." Based off the client's responses additional C-SSRS screening is required. "In the past month, have you actually had any thoughts of killing yourself?" Patient responds "no." "In your lifetime, have you ever done anything, started to do anything, or prepared to do anything to end your life?" Patient responds "yes." Patient reports suicidal intent occurred greater than 3 months prior. Subjective: Patient's mood is irritable, Delusions are denied, Hallucinations are denied Having thoughts of homicide. Homicidal plan is to KILL SON WITH VEHICLE. Objective: Patient is cooperative, Speech is normal, Affect is blunted. Interventions: Removed personal items and placed in bag. Patient placed in hospital gown. Searched person for dangerous items. Urine collected and sent for urine drug test. Belonging list filled out. Safety Checks: Personal items have been removed. Door is open. No visitors are present at this time. Pt denies substance abuse. Commitment: Patient will be a voluntary commitment. 21:55 [place] Suicide Severity Screening: pt states she does not want to or kill vc1 herself. [facility] recommends outpatient follow up. Pt discharged with safety plan. Interventions:. Vital Signs: 15:11 BP 139 / 109; Pulse 104; Resp 20 S; Temp 98.1(TE); Pulse Ox 96% on R/A; Weight 133.81 aa5 kg (R); Height 4 ft. 9 in. (R); 19:34 BP 123 / 81; Pulse 94; Resp 99; bc6 21:53 BP 124 / 84; Pulse 90; Resp 20; Temp 98.6; Pulse Ox 97% ; vc1 15:11 Body Mass Index 63.84 (133.81 kg, 144.78 cm) aa5 ED Course: 15:07 Patient arrived in ED. am2 15:11 Arm band placed on. aa5 15:12 Gwyn Henley MD is Attending Physician. sp3 15:15 Patient has correct armband on for positive identification. Placed in gown. Bed in low bp position. Side rails up X2. Valuables Given to family. 15:26 Nik Wadsworth, RN is Primary Nurse. bp 15:35 Triage completed. aa5 16:26 EKG done, by ED staff. aw1 16:26 Initial lab(s) drawn, by me, sent to lab. aw1 16:26 Urine collected: clean catch specimen, cloudy. aw1 17:00 general cargo clerk contacted [facility] crisis line to arrange for a mental health em1 screener to visit this pt. 17:46 Olivia from [facility] calls for pt screen. em1 19:05 Report received from MALOU Zaragoza. vc1 19:50 [facility] recommends outpatient care for pt. rv1 21:54 No provider procedures requiring assistance completed. Patient did not have IV access vc1 during this emergency room visit. Administered Medications: 19:38 Drug: LORazepam PO 2 mg Route: PO; vc1 Medication: 19:18 VIS not applicable for this client. vc1 Outcome: 19:53 Discharge ordered by . sp3 21:55 Discharged to home ambulatory. vc1 21:55 Condition: good 21:55 Discharge instructions given to patient, family, Instructed on discharge instructions, follow up and referral plans. Demonstrated understanding of instructions, follow-up care. 21:56 Patient left the ED. vc1 Signatures: Nii Pearce em1 Ibeth Ulrich, RN RN aa5 Alecia Rojas am2 Nik Wadsworth, RN RN Gwyn Benson MD MD sp3 Lauren Montes De Oca RN RN vc1 June Martinez rv1 Sara Mendoza bc6 Farnaz Warner aw1 Corrections: (The following items were deleted from the chart) 15:42 15:11 Chief complaint: Patient states: "I was just at the store with my son and he was aa5 complaining about his arm hurting because he just got school shots and I was telling him that his arm doesn't hurt that bad so he just walked away and I don't know why but it just set me off and I started dragging him out the store by the arm and I was imagining smashing his head against the car and I knew it wasn't right". Pt states "I've been having this violent episodes for a while and today was just very scary". Pt states "On my way here I wanted to crash the car". Pt states "I had a tonsillectomy back in December and I got taken off the 17 meds I was on and slowly have been starting my medication regimen again but it's not working" aa5
--- NOTE | 2023-03-08 19:53 | EDPHYS ---
Physician Documentation [facility] Name: Claudine Morales Age: 32 yrs Sex: Female : 1990 Arrival Date: 03/08/2023 Time: 15:06 Bed 16 Private MD: ED Physician Gwyn Henley HPI: 03/08 15:39 This 32 yrs old Female presents to ER via Ambulatory with complaints of Suicidal sp3 Ideation, Homicidal Ideation. 15:39 32-year-old female with history of hypertension, bipolar mood disorder, hypothyroidism sp3 who presents to the ED for chief complaint suicidal and homicidal ideation. Patient was at the local retail store where she had an argument with her son who is approximately 10 years old at which point he "triggered her" and she had disturbing thoughts of smashing his head against a car and other things including purposely wrecking her vehicle to commit suicide as well as homicide to her son. She recognized these thoughts and is now seeking help in the emergency department. There was no physical altercation between her and her son. Her son is here in the ED currently in a safe place waiting for his father to pick him up. Patient has no somatic complaints or symptoms including headache, neck pain, shortness of breath, chest pain, abdominal pain, nausea, vomiting, diarrhea, syncope, neurological symptoms, or any other signs or symptoms on ROS.. 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 - Social history:: Smoking status: Patient denies any tobacco usage or history of. Patient/guardian denies using alcohol, street drugs. ROS: 15:40 Constitutional: Negative for fever, chills, and weight loss, Eyes: Negative for injury, sp3 pain, redness, and discharge, ENT: Negative for injury, pain, and discharge, Neck: Negative for injury, pain, and swelling, Cardiovascular: Negative for chest pain, palpitations, and edema, Respiratory: Negative for shortness of breath, cough, wheezing, and pleuritic chest pain, Abdomen/GI: Negative for abdominal pain, nausea, vomiting, diarrhea, and constipation, Back: Negative for injury and pain, Skin: Negative for injury, rash, and discoloration, Neuro: Negative for headache, weakness, numbness, tingling, and seizure. 15:40 All other systems are negative. Exam: 15:42 Constitutional: This is a well developed, well nourished patient who is awake, alert, sp3 and in no acute distress. Head/Face: Normocephalic, atraumatic. Eyes: Pupils equal round and reactive to light, extra-ocular motions intact. Lids and lashes normal. Conjunctiva and sclera are non-icteric and not injected. Cornea within normal limits. Periorbital areas with no swelling, redness, or edema. ENT: Nares patent. No nasal discharge, no septal abnormalities noted. External auditory canals are clear. Oropharynx with no redness, swelling, or masses, exudates, or evidence of obstruction, uvula midline. Mucous membranes moist. Neck: Trachea midline, no thyromegaly or masses palpated, and no cervical lymphadenopathy. Supple, full range of motion without nuchal rigidity, or vertebral point tenderness. No Meningismus. Chest/axilla: Normal chest wall appearance and motion. Nontender with no deformity. No lesions are appreciated. Cardiovascular: Regular rate and rhythm with a normal S1 and S2. No gallops, murmurs, or rubs. Normal PMI, no JVD. No pulse deficits. Respiratory: Lungs have equal breath sounds bilaterally, clear to auscultation and percussion. No rales, rhonchi or wheezes noted. No increased work of breathing, no retractions or nasal flaring. Abdomen/GI: Soft, non-tender, with normal bowel sounds. No distension or tympany. No guarding or rebound. No evidence of tenderness throughout. Back: No spinal tenderness. No costovertebral tenderness. Full range of motion. Skin: Warm, dry with normal turgor. Normal color with no rashes, no lesions, and no evidence of cellulitis. MS/ Extremity: Pulses equal, no cyanosis. Neurovascular intact. Full, normal range of motion. Neuro: Awake and alert, GCS 15, oriented to person, place, time, and situation. Cranial nerves II-XII grossly intact. Motor strength 5/5 in all extremities. Sensory grossly intact. Cerebellar exam normal. Normal gait. 15:42 Psych: Patient has active homicidal and suicidal ideation. She states she is hearing these thoughts and voices but is not acting on them. She denies any other voices that are telling her what to do. She feels these are internal voices. She has no documented history of psychosis and I believe she is using these terms to describe her feelings and is not an active psychosis.. Vital Signs: 15:11 BP 139 / 109; Pulse 104; Resp 20 S; Temp 98.1(TE); Pulse Ox 96% on R/A; Weight 133.81 aa5 kg (R); Height 4 ft. 9 in. (R); 19:34 BP 123 / 81; Pulse 94; Resp 99; bc6 21:53 BP 124 / 84; Pulse 90; Resp 20; Temp 98.6; Pulse Ox 97% ; vc1 15:11 Body Mass Index 63.84 (133.81 kg, 144.78 cm) aa5 MDM: 15:17 Patient medically screened. sp3 15:43 Data reviewed: vital signs, nurses notes, old medical records, lab test result(s), EKG, sp3 radiologic studies. ED course: We will assess with laboratory values and EKG and urine drug screen. Patient likely has diego episode of her bipolar and mood disorder. I do not believe patient is psychotic at this time. We will assess with work-up above and obtain consultation with [facility] for ultimate disposition.. 19:52 ED course: Patient had extensive conversation with [facility] for approximately 2 sp3 hours. She is now eufemia for safety and has a clear outpatient follow-up plan for which her will be taking her to. She feels much better and has also received Ativan p.o. We will safely discharge her home at this time. She will not be alone with the child without the present.. 03/08 15:17 Order name: Acetaminophen; Complete Time: 18:11 sp3 03/08 15:17 Order name: Basic Metabolic Panel; Complete Time: 18:11 sp3 03/08 15:17 Order name: CBC with Diff; Complete Time: 16:52 sp3 03/08 15:17 Order name: ETOH Level; Complete Time: 18:11 sp3 03/08 15:17 Order name: Hepatic Function; Complete Time: 18:11 sp3 03/08 15:17 Order name: PT-INR; Complete Time: 18:11 sp3 03/08 15:17 Order name: Test, Urine; Complete Time: 16:52 sp3 03/08 15:17 Order name: Ptt, Activated; Complete Time: 18:11 sp3 03/08 15:17 Order name: Salicylate; Complete Time: 18:11 3 03/08 15:17 Order name: Urinalysis w/ reflexes; Complete Time: 16:52 sp3 03/08 15:17 Order name: Urine Drug Screen; Complete Time: 16:52 sp3 03/08 15:17 Order name: EKG; Complete Time: 15:18 sp3 03/08 15:17 Order name: EKG - Nurse/Tech; Complete Time: 15:53 sp3 03/08 15:17 Order name: IV Saline Lock; Complete Time: 16:25 sp3 03/08 15:17 Order name: Labs collected and sent; Complete Time: 16:25 sp3 03/08 15:17 Order name: Suicide Precautions; Complete Time: 16:29 sp3 03/08 15:17 Order name: Suicide Screening ([place]); Complete Time: 16:29 sp3 Administered Medications: 19:38 Drug: LORazepam PO 2 mg Route: PO; vc1 Disposition Summary: 03/08/23 19:53 Discharge Ordered Location: Home sp3 Condition: Stable sp3 Diagnosis - Unspecified mood [affective] disorder sp3 Followup: sp3 - With: Private Physician - When: Upon discharge from the Emergency Department - Reason: Continuance of care Discharge Instructions: - Discharge Summary Sheet sp3 - Suicidal Feelings: How to Help Yourself sp3 Forms: - Medication Reconciliation Form sp3 - Thank You Letter sp3 - Antibiotic Education sp3 - Prescription Opioid Use sp3 - Patient Portal Instructions sp3 - SBAR form rv1 Signatures: Dispatcher [employer] Ibeth Walter RN RN aa5 Gwyn Henley MD MD sp3 Lauren Montes De Oca RN RN vc1
[2023-03-08 22:29] VITALS: BP 124/84; TEMP 98.6; O2SAT 97
--- NOTE | 2023-03-09 13:25 | EKG ---
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
== END 2023-03-08 21:56 | disposition home or self-care (01) ==
LOC: ER 15:06
DX: F39 Unspecified mood [affective] disorder (principal); Z88.8 Allergy status to other drugs, medicaments and biological substances
CPT/HCPCS: 36415; 80048; 80076; 80143; 80179; 80307; 81001; 81025; 82077; 85025; 85610; 85730; 93005; 99285

== ENCOUNTER 2023-11-25 04:45 | Emergency (ER) | payer OTHER ==
--- OUTSIDE RECORDS SUMMARY | 2023-11-25 04:57 | XMS REPORT | Continuity of Care Document ---
Author Name Unknown Address [address] [place] [address] [facility] Address 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 Name Role Phone Archie Medley Primary Care Physician [phone]- [phone] AFIA BEAULIEU Attending Clinician Unavailable DOROTHY SHUKLA Attending Clinician Jeanine ELLY Gaytan Attending Clinician Unavailable ATILIO ANDREWS Attending Clinician Unavailable Doctor Unassigned, [place] Attending Clinician U OBI Dyson Attending Clinician Unavailable RADIOLOGY Attending Clinician Unavailable Radiology Attending Clinician Unavailable BONNIE ROCHA Attending Clinician Unavailab Bonnie Vu Attending Clinician [phone] Debbie Velasco RN Attending Clinician Unavaila Elly Singh MD Attending Clinician [phone] Alton Navneet Grayson Attending Clinician Unava ilIon Padilla MD Attending Clinician ION MIRANDA Attending Clinician Unavaila ION Chua Attending Clinician UnavailISELA Peterson Attending Clinician Unavailable CHANEL JACOME Attending Clinician Unavailable SHARRI OLSON Attending Clinician UnavailSHARRI Chan Attending Clinician Unavailcarmelo Colindres Rn RN, Sharri Canseco Attending Clinician Unava ilable JEFFREY, GEORGETTE S Attending Clinician Unavailable Jeffrey PAC, Georgette S Attending Clinician [phone] Chago CARRANZA, Mildred Park Attending Clinician Jeanine Zhanna Rock LVN Attending Clinician UnavailRobina CONNER, Preethi Attending Clinician [phone] Yamil MESSINA Attending Clinician Unavailable Yamil Monroy Attending Clinician [phone] YOON PAGE Attending Clinician Unavailable Yoon Page MD Attending Clinician [phone] Pgy2 Attending Clinician Unavailable Donal ESCOBAR, Marques Ruiz Attending Clinician [phone] [facility]ending [facility] Unavailab shahla Villanueva MD, Aracely Attending Clinician [phone] Dena Santos MD Attending Clinician + Jeanette Campos MD Attending Clinician [phone] JEANETTE CAMPOS Attending Clinician Unavailable BEBE GABRIEL Attending Clinician Unavailable AFIA BEAULIEU Admitting Clinician Unavailable Yamil MESSINA Admitting Clinician Unavailable YOON PAGE Admitting Clinician Unavailable Payers Payer Name Policy Type Policy Number Effective Date Expirati on Date Source [facility] [id number] 2022 00:00:00 [facility] [id number] 2022 00:00:00 Problems Condition Name Condition Details Condition Category Status Onset Date Resolution Date Last Treatment Date Treating Clinician Comments Source No known active problems No known active problems Disease [facility] Allergies, Adverse Reactions, Alerts Allergy Name Allergy Type Status Severity Reaction(s) Onset Date Inactive Date Treating Clinician Comments Source LURASIDO NE DRUG INGREDI Active Other-Cmnt 03-19 00:00: 00 [facility] DOXEPIN DRUG INGREDI Active Anxiety 03-19 00:00: 00 [facility] Doxepin Propensi ty to adverse reaction s Active Anxiety 03-19 00:00: 00 Anger, agression [facility] Lurasido ne Propensi ty to adverse reaction s Active Other - See comments 03-19 00:00: 00 Manic episode/a gression [facility] Abilify - Oral Propensi ty to adverse reaction to drug Active 04-06 00:00: 00 ARIPIPRA ZOLE DRUG INGREDI Active Other-Cmnt 03-11 00:00: 00 [facility] LAMOTRIG INE DRUG INGREDI Active Other-Cmnt 03-11 00:00: 00 [facility] Aripipra zole Propensi ty to adverse reaction s Active Other - See comments 03-11 00:00: 00 Suicidal ideation and AMS [facility] Lamotrig ine Propensi ty to adverse reaction s Active Other - See comments 03-11 00:00: 00 Possible reaction att. [facility] NO KNOWN ALLERGIE S Drug Class Active [facility] Family History Family Member Diagnosis Comments Start Date Stop Date Sourc e Paternal Aunt Breast Cancer Un [facility] Social History Social Habit Start Date Stop Date Quantity Comments Source Gender identity [facility] Exposure to SARS-CoV-2 (event) Not sure [facility] History of Social function 2023-11-12 00:00:00 2023-11-12 00:00:00 [facility] Alcohol intake 2023-10-15 00:00:00 2023-10-15 00:00:00 Current drinker of alcohol (finding) [facility] Alcohol Comment 2023-08-28 00:00:00 2023-08-28 00:00:00 rarely [facility] Tobacco use and exposure 2023-02-16 00:00:00 2023-02-16 00:00:00 Smokeless tobacco non-user [facility] Sex Assigned At 1990 00:00:00 1990 00:00:00 [facility] Smoking Status Start Date Stop Date Source Never smoked tobacco [facility] Tobacco smoking consumption unknown [facility] Medications Ordered Medication Name Filled Medication Name Start Date Stop Date Current Medication? Ordering Clinician Indication Dosage Frequency Signature (SIG) Comments Components Source hydrOXYzine 50 mg tablet 11-13 00:00: 00 Yes [id number] Take 2 tablets at night as needed for insomnia. If unable to sleep after 1 hour take 1 tablet by mouth at night. Can take an additional 2 tablets during the day as needed for anxiety. [facility] butalbital- acetaminoph en-caff 50-325-40 mg tablet 10-31 08:54: 39 10-31 00:00 :00 No 1{tbl} Take 1 tablet by mouth every 4 (four) hours as needed for Headache. [facility] topiramate 100 mg tablet 10-31 00:00: 00 Yes [id number] 100mg Take 1 tablet by mouth in the morning and 1 tablet in the evening. [facility] butalbital- acetaminoph en-caff 50-325-40 mg tablet 10-30 08:17: 56 Yes 1{tbl} Take 1 tablet by mouth every 4 (four) hours as needed for Headache. [facility] gabapentin 100 mg capsule 10-22 00:00: 00 Yes 100mg Take 1 capsule by mouth in the morning and 1 capsule at noon and 1 capsule in the evening. [facility] methocarbam oL 750 mg tablet 10-22 00:00: 00 Yes TAKE 1 TABLET BY MOUTH THREE TIMES A DAY NEEDED FOR MUSCLE SPASM [facility] ketorolac (TORADOL) injection 30 mg 10-16 06:30: 00 10-16 06:17 :00 No 30mg 30 mg, Slow IV Push, ONCE, 1 dose, On Sun10/17/23 at 0030, Routine [facility] NaCl 0.9% (NS) bolus infusion 1,000 mL 10-16 06:15: 00 10-16 07:36 :00 No 1000mL at 999 mL/hr, 1,000 mL, IV Infusion, ONCE, 1 dose, On Sun10/17/23 at 0015, STAT [facility] metoclopram krystian HCl (REGLAN) injection 10 mg 10-16 06:15: 00 10-16 06:17 :00 No 10mg 10 mg, Slow IV Push, ONCE, 1 dose, On Sun10/17/23 at 0015, PAWEL [facility] diphenhydrA MINE (BENADRYL) injection 25 mg 10-16 06:15: 00 10-16 06:17 :00 No 25mg 25 mg, Slow IV Push, ONCE, 1 dose, On Sun10/17/23 at 0015, STAT [facility] butalbital- acetaminoph en-caff 50-325-40 mg tablet 10-16 00:00: 00 10-31 00:00 :00 No [id number] 1{tbl} Take 1 tablet by mouth every 4 (four) hours as needed for Headache. [facility] metFORMIN 500 mg tablet 10-03 10:52: 09 Yes 500mg Take 1 tablet by mouth in the morning and 1 tablet in the evening. Take with meals. [facility] rimegepant (NURTEC ODT) 75 mg TbDL 09-18 00:00: 00 Yes [id number] 75mg Take 1 tablet by mouth once daily as needed (Headache) . [facility] propranoloL 40 mg tablet 09-18 00:00: 00 Yes [id number] 40mg Take 1 tablet by mouth in the morning. [facility] topiramate 50 mg tablet 09-18 00:00: 00 10-31 00:00 :00 No [id number] 50mg Take 1 tablet by mouth in the morning and 1 tablet in the evening. [facility] venlafaxine XR (EFFEXOR XR) 75 mg 24 hr capsule 09-17 00:00: 00 Yes [id number] 75mg Take 1 capsule by mouth daily with breakfast. [facility] hydrOXYzine 50 mg tablet 09-17 00:00: 00 11-13 00:00 :00 No [id number] Take 2 tablets at night as needed for insomnia. If unable to sleep after 1 hour take 1 tablet by mouth at night. Can take an additional 2 tablets during the day as needed for anxiety. [facility] venlafaxine XR (EFFEXOR XR) 75 mg 24 hr capsule 09-03 00:00: 00 09-17 00:00 :00 No [id number] 75mg Take 1 capsule by mouth daily with breakfast. [facility] zolpidem 5 mg tablet 2022-08 00:00: 00 09-03 00:00 :00 No [id number] 5mg Take 1 tablet by mouth at bedtime as needed for Insomnia. [facility] ramelteon 8 mg tablet 2022-08 00:00: 00 07-23 00:00 :00 No [id number] 8mg Take 1 tablet by mouth at bedtime as needed for Insomnia. [facility] ubrogepant 100 mg Tab 2022-08 0 00:00: 00 Yes [id number] 100mg Take 1 tablet by mouth as needed for Other (Headache) for up to 64 doses. If symptoms persist or return, may repeat dose after 2 hours. Maximum: 200 mg per 24 hours [facility] hydrOXYzine 50 mg tablet 2022-08 00:00: 00 09-17 00:00 :00 No [id number] Take 2 tablets at night as needed for insomnia. Can take an additional 2 tablets during the day as needed for anxiety. [facility] venlafaxine XR (EFFEXOR XR) 75 mg 24 hr capsule 2022-08 0- 00:00: 00 09-03 00:00 :00 No [id number] 75mg Take 1 capsule by mouth daily with breakfast. [facility] venlafaxine XR 37.5 mg 24 hr capsule 2022-08 0- 00:00: 00 07-04 00:00 :00 No [id number] Take 1 capsule by mouth daily with breakfast. (Take with Venlafaxin e XR 75 mg daily for a total dose of Venlafaxin e XR 112.5 mg daily.) [facility] topiramate 50 mg tablet 2022-08 0-12 00:00: 00 09-18 00:00 :00 No [id number] 50mg Take 1 tablet by mouth in the morning and 1 tablet in the evening. [facility] propranoloL 40 mg tablet 2022-08 0-12 00:00: 00 09-18 00:00 :00 No [id number] 40mg Take 1 tablet by mouth in the morning. [facility] rimegepant (NURTEC ODT) 75 mg TbDL 2022-08 0-12 00:00: 00 09-18 00:00 :00 No [id number] 75mg Take 1 tablet by mouth as needed (Headache) . [facility] venlafaxine XR 37.5 mg 24 hr capsule 2022-08 0 00:00: 00 06-06 00:00 :00 No [id number] Take 1 capsule by mouth daily with breakfast. (Take with Venlafaxin e XR 75 mg daily for a total dose of Venlafaxin e XR 112.5 mg daily.) [facility] hydrOXYzine 50 mg tablet 05-09 00:00: 00 06-06 00:00 :00 No [id number] Take 2 tablets at night as needed for insomnia. Can take an additional 2 tablets during the day as needed for anxiety. [facility] venlafaxine XR (EFFEXOR XR) 75 mg 24 hr capsule 05-09 00:00: 00 06-06 00:00 :00 No [id number] 75mg Take 1 capsule by mouth daily with breakfast. [facility] hydrOXYzine 50 mg tablet 04-25 09:38: 06 04-25 00:00 :00 No 50mg Take 1 tablet by mouth in the morning. Take 1 tablet by mouth every 6 hours as needed for itching [facility] hydrOXYzine 50 mg tablet 04-25 00:00: 00 05-09 00:00 :00 No [id number] Take 2 tablets at night as needed for insomnia. Can take an additional 2 tablets during the day as needed for anxiety. [facility] venlafaxine XR (EFFEXOR XR) 75 mg 24 hr capsule 04-25 00:00: 00 05-09 00:00 :00 No [id number] 75mg Take 1 capsule by mouth daily with breakfast. [facility] NaCl 0.9% (NS) bolus infusion 1,000 mL 04-21 02:30: 00 04-21 04:53 :00 No 1000mL at 999 mL/hr, 1,000 mL, IV Infusion, ONCE, 1 dose, On Sun04/20/23 at 2130, STAT [facility] ketorolac (TORADOL) injection 30 mg 04-21 02:30: 00 04-21 02:47 :00 No 30mg 30 mg, Slow IV Push, ONCE, 1 dose, On Sun04/20/23 at 2130, PAWEL [facility] proCHLORper azine (COMPAZINE) 10 mg in NaCl 0.9% (NS) piggyback 04-21 02:15: 00 04-21 04:47 :00 No 10mg 10 mg, IV Piggyback, at 100 mL/hr Administer over 30 Minutes, ONCE, 1 dose, On Sun04/20/23 at 2115, Routine [facility] diphenhydrA MINE (BENADRYL) injection 25 mg 04-21 01:30: 00 04-21 02:46 :00 No 25mg 25 mg, Slow IV Push, ONCE, 1 dose, On Sun04/20/23 at 2030, STAT [facility] sulfamethox azole-trime thoprim 400-80 mg per tablet 04-20 20:09: 31 04-20 00:00 :00 No 1{tbl} Take 1 tablet by mouth in the morning and 1 tablet in the evening. [facility] venlafaxine XR (EFFEXOR XR) 37.5 mg 24 hr capsule 04-04 00:00: 00 04-25 00:00 :00 No [id number] 37.5mg Take 1 capsule by mouth daily with breakfast. [facility] ziprasidone (GEODON) 20 mg capsule 03-21 00:00: 00 04-20 00:00 :00 No [id number] 20mg Take 1 capsule by mouth in the morning and 1 capsule in the evening. Take with meals. [facility] metFORMIN 500 mg tablet 03-19 14:17: 04 Yes 500mg Take 1 tablet by mouth in the morning and 1 tablet in the evening. Take with meals. [facility] sulfamethox azole-trime thoprim 400-80 mg per tablet 03-19 14:17: 04 Yes 1{tbl} Take 1 tablet by mouth in the morning and 1 tablet in the evening. [facility] propranoloL 40 mg tablet 03-19 00:00: 00 05-24 00:00 :00 No [id number] 40mg Take 1 tablet by mouth in the morning. [facility] topiramate 50 mg tablet 03-19 00:00: 00 05-24 00:00 :00 No [id number] 50mg Take 1 tablet by mouth in the morning and 1 tablet in the evening. [facility] phentermine 37.5 mg tablet 03-13 00:00: 00 Yes 37.5mg Take 1 tablet by mouth in the morning. [facility] rimegepant (NURTEC ODT) 75 mg TbDL 02-27 00:00: 00 05-24 00:00 :00 No [id number] 75mg Take 1 tablet by mouth daily as needed (Headache) . [facility] naproxen 500 mg tablet 02-23 00:00: 00 Yes TAKE 1 TABLET DAILY NEEDED FOR MIGRAINE. [facility] lurasidone (LATUDA) 20 mg tablet 02-23 00:00: 00 03-21 00:00 :00 No [id number] 20mg Take 1 tablet by mouth every evening. Start Latuda 20 mg with dinner (at least 500 kcal); after 1 week increase to 40 mg with dinner [facility] lurasidone (LATUDA) 40 mg tablet 02-23 00:00: 00 03-21 00:00 :00 No [id number] 40mg Take 1 tablet by mouth every evening. With dinner (at least 500 kcal) after completing one week of Latuda 20 mg daily [facility] hydrOXYzine 50 mg tablet 02-22 00:00: 00 03-21 00:00 :00 No [id number] 50mg Take 1 tablet by mouth every 6 (six) hours as needed for Itching. [facility] doxepin 10 mg capsule 02-22 00:00: 00 03-21 00:00 :00 No [id number] 10mg Take 1 capsule by mouth at bedtime. [facility] lurasidone (LATUDA) 20 mg tablet 02-22 00:00: 00 02-23 00:00 :00 No [id number] Take one tablet by mouth with dinner (at least 500 calories) for 1 week. After 1 week increase to two tablets by mouth with dinner. [facility] propranoloL 40 mg tablet 02-21 00:00: 00 03-19 00:00 :00 No TAKE 1 TABLET DAILY FOR MIGRAINE HEADACHE PROPHYLAXI S [facility] topiramate 50 mg tablet 02-20 00:00: 00 03-19 00:00 :00 No 50mg Take 1 tablet by mouth in the morning and 1 tablet in the evening. [facility] topiramate 25 mg tablet 02-20 00:00: 00 03-19 00:00 :00 No 25mg Take 1 tablet by mouth in the morning and 1 tablet in the evening. Take for 7 days then increase to 50mg twice a day. [facility] topiramate 25 mg tablet 02-16 00:00: 00 03-03 04:59 :00 No [id number] Take 1 tablet by mouth 2 (two) times daily for 7 days, THEN 2 tablets 2 (two) times daily for 7 days. [facility] ubrogepant 100 mg Tab 02-16 00:00: 00 02-27 00:00 :00 No [id number] 100mg Take 1 tablet by mouth as needed for Other (Headache) for up to 10 doses. If symptoms persist or return, may repeat dose after 2 hours. Maximum: 200 mg per 24 hours [facility] VENTOLIN HFA 90 mcg/actuati on inhaler 630 00:00: 00 04-20 00:00 :00 No INHALE 2 PUFFS EVERY 3-4 HOURS NEEDED FOR WHEEZING, COUGH, SHORTNESS OF BREATH [facility] SUMAtriptan 50 mg tablet 6-14 00:00: 00 04-20 00:00 :00 No TAKE 1 TABLET AT ONSET OF MIGRAINE, IF PERSISTS TAKE 1 TABLET AFTER 2 HOURS NEEDED. [facility] traMADoL 100 mg 24 hr tablet 01-01 00:00: 00 04-20 00:00 :00 No TAKE 1 TABLET BY MOUTH EVERY DAY NEEDED FOR SEVERE PAIN [facility] HYDROcodone -acetaminop hen 7.5-325 mg/15 mL solution 18 00:00: 00 04-20 00:00 :00 No TAKE 15 ML BY MOUTH EVERY 6 HOURS NEEDED FOR PAIN [facility] levothyroxi ne 112 mcg tablet 4-29 00:00: 00 Yes [facility] TAKE 1 TABLET AT BEDTIME. 2021-08 00:00: 00 No 100 TAKE 1 TABLET TWICE DAILY. 2021-08- 00:00: 00 No 300 TAKE 1 TABLET EVERY MORNING. 2021-08- 00:00: 00 No 300 TAKE 1 TABLET DAILY. 2021-08- 00:00: 00 No 25 TAKE 1 TABLET TWICE DAILY. 2021-08 00:00: 00 No TAKE 1 TABLET 3 TIMES DAILY. 2021-08 00:00: 00 No TAKE 1 TABLET DAILY. 2021-08 00:00: 00 No TAKE 1 TABLET AT BEDTIME. 2021-08 00:00: 00 No Dose Unknown 2021-08 00:00: 00 No Dose Unknown 2022-1 2-15 00:00: 00 No Dose Unknown 2021-1 2-15 00:00: 00 No Dose Unknown 2021-1 2-15 00:00: 00 No TAKE 1 TABLET BY MOUTH EVERY 8 HOURS NEEDED FOR MUSCLE SPASMS 2021-1 2-15 00:00: 00 No Dose Unknown 2021-1 2-15 00:00: 00 No Dose Unknown 2021-1 2-15 00:00: 00 No Dose Unknown 2021-1 2-15 00:00: 00 No Dose Unknown 2021-1 2-15 00:00: 00 No Dose Unknown 2021-1 2-15 00:00: 00 No Dose Unknown 2021-1 2-15 00:00: 00 No Dose Unknown 2021-1 2-15 00:00: 00 No Dose Unknown 2021-1 2-15 00:00: 00 No Dose Unknown 1 2-15 00:00: 00 No TAKE 1 TABLET DAILY. 2021-1 1-16 00:00: 00 No TAKE 1 TABLET DAILY. 1 1-16 00:00: 00 No TAKE 1 TABLET DAILY. 2021-1 0-27 00:00: 00 No 112 Dose Unknown 2022-0 8-08 00:00: 00 No Dose Unknown 2022-0 8-08 00:00: 00 No Dose Unknown 2022-0 8-08 00:00: 00 No Dose Unknown 2022-0 8-08 00:00: 00 No Dose Unknown 2022-0 8-08 00:00: 00 No Dose Unknown 2022-0 8-08 00:00: 00 No Dose Unknown 2022-0 8-08 00:00: 00 No Dose Unknown 2022-0 8-08 00:00: 00 No Dose Unknown 2022-0 8-08 00:00: 00 No Dose Unknown 2022-0 8-08 00:00: 00 No Dose Unknown 2022-0 8-08 00:00: 00 No Dose Unknown 2022-0 8-08 00:00: 00 No Dose Unknown 2022-0 8-03 00:00: 00 No Dose Unknown 2022-0 8-03 00:00: 00 No Dose Unknown 2022-0 8-03 00:00: 00 No Dose Unknown 2022-0 8-03 00:00: 00 No Wellbutrin XL 300 mg 24 hr tablet, extended release 2021-0 03-14 00:00: 00 No 1mg Trileptal 150 mg tablet 0 03-14 00:00: 00 No 1mg buspirone 10 mg tablet 0 03-14 00:00: 00 No 1mg Dose Unknown 0 03-14 00:00: 00 No Dose Unknown 0 03-14 00:00: 00 No Dose Unknown 0 03-14 00:00: 00 No Dose Unknown 0 03-14 00:00: 00 No Dose Unknown 0 03-14 00:00: 00 No Dose Unknown 0 03-14 00:00: 00 No TAKE 1 TABLET TWICE DAILY. 0 03-14 00:00: 00 No TAKE 1 TABLET AT BEDTIME. 0 03-14 00:00: 00 No Dose Unknown 0 03-14 00:00: 00 No Dose Unknown 0 03-14 00:00: 00 No Dose Unknown 0 03-14 00:00: 00 No Dose Unknown 0 03-14 00:00: 00 No Dose Unknown 0 03-14 00:00: 00 No Dose Unknown 0 03-14 00:00: 00 No Dose Unknown 0 03-14 00:00: 00 No Wellbutrin XL 300 mg 24 hr tablet, extended release 0 03-14 00:00: 00 No 1mg Trileptal 150 mg tablet 0 03-14 00:00: 00 No 1mg buspirone 10 mg tablet 0 03-14 00:00: 00 No 1mg Seroquel 100 mg tablet 0 03-14 00:00: 00 No 1mg Dose Unknown 0 03-14 00:00: 00 No Dose Unknown 0 03-14 00:00: 00 No Dose Unknown 0 03-14 00:00: 00 No Dose Unknown 0 03-14 00:00: 00 No Dose Unknown 0 8 00:00: 00 No Wellbutrin XL 300 mg 24 hr tablet, extended release 0 03-14 00:00: 00 No 1mg Trileptal 150 mg tablet 0 8- 00:00: 00 No 1mg buspirone 10 mg tablet 2022-0 8- 00:00: 00 No 1mg Dose Unknown 2022-0 8- 00:00: 00 No Dose Unknown 2022-0 8- 00:00: 00 No Dose Unknown 2022-0 8 00:00: 00 No Dose Unknown 2022-0 8 00:00: 00 No Dose Unknown 2022-0 8 00:00: 00 No Dose Unknown 2022-0 8 00:00: 00 No Dose Unknown 2022-0 7 00:00: 00 No Dose Unknown 2022-0 7 00:00: 00 No Dose Unknown 2022-0 7 00:00: 00 No Dose Unknown 2022-0 7 00:00: 00 No Dose Unknown 2022-0 7 00:00: 00 No Dose Unknown 2022-0 7 00:00: 00 No Dose Unknown 2022-0 7 00:00: 00 No Dose Unknown 2022-0 7 00:00: 00 No Dose Unknown 2022-0 7 00:00: 00 No Dose Unknown 2022-0 7 00:00: 00 No Dose Unknown 2022-0 730 00:00: 00 No Dose Unknown 2022-0 7 00:00: 00 No Dose Unknown 2022-0 7 00:00: 00 No Dose Unknown 2022-0 7 00:00: 00 No Dose Unknown 2022-0 7 00:00: 00 No Dose Unknown 2022-0 7 00:00: 00 No Dose Unknown 2022-0 7 00:00: 00 No Dose Unknown 2022-0 7 00:00: 00 No Dose Unknown 2022-0 7 00:00: 00 No Dose Unknown 2022-0 7 00:00: 00 No Dose Unknown 2022-0 7 00:00: 00 No Dose Unknown 2022-0 7 00:00: 00 No Dose Unknown 2022-0 7 00:00: 00 No Dose Unknown 2022-0 7 00:00: 00 No Dose Unknown 2022-0 7-21 00:00: 00 No Dose Unknown 2022-0 721 00:00: 00 No Dose Unknown 2022-0 721 00:00: 00 No Dose Unknown 2022-0 721 00:00: 00 No Dose Unknown 2022-0 7 00:00: 00 No Dose Unknown 2022-0 7 00:00: 00 No Dose Unknown 2022-0 7 00:00: 00 No Dose Unknown 2022-0 721 00:00: 00 No Dose Unknown 2022-0 7 00:00: 00 No Dose Unknown 2022-0 7 00:00: 00 No Dose Unknown 2022-0 7 00:00: 00 No Dose Unknown 2022-0 7 00:00: 00 No Dose Unknown 2022-0 7 00:00: 00 No Dose Unknown 2022-0 7 00:00: 00 No Dose Unknown 2022-0 7 00:00: 00 No Dose Unknown 2022-0 7 00:00: 00 No Dose Unknown 2022-0 7 00:00: 00 No Dose Unknown 2022-0 7 00:00: 00 No Dose Unknown 2022-0 7 00:00: 00 No Dose Unknown 2022-0 721 00:00: 00 No Dose Unknown 2022-0 7 00:00: 00 No Dose Unknown 2022-0 7 00:00: 00 No Dose Unknown 2022-0 7 00:00: 00 No Dose Unknown 2022-0 7 00:00: 00 No Dose Unknown 2022-0 7 00:00: 00 No Dose Unknown 2022-0 720 00:00: 00 No Wellbutrin XL 300 mg 24 hr tablet, extended release 2022-0 7 00:00: 00 No 1mg buspirone 10 mg tablet 2022-0 7 00:00: 00 No 1mg Dose Unknown 2022-0 7 00:00: 00 No Dose Unknown 2022-0 7 00:00: 00 No Dose Unknown 2022-0 7 00:00: 00 No Dose Unknown 2022-0 7 00:00: 00 No Dose Unknown 2022-0 7 00:00: 00 No Dose Unknown 0 02-28 00:00: 00 No TAKE 1 TABLET AT BEDTIME. 0 02-28 00:00: 00 No Dose Unknown 0 02-28 00:00: 00 No Dose Unknown 0 02-28 00:00: 00 No Dose Unknown 0 02-28 00:00: 00 No Dose Unknown 0 02-28 00:00: 00 No Dose Unknown 0 02-28 00:00: 00 No Dose Unknown 0 02-28 00:00: 00 No Dose Unknown 0 02-28 00:00: 00 No Wellbutrin XL 300 mg 24 hr tablet, extended release 2021-0 02-28 00:00: 00 No 1mg buspirone 10 mg tablet 0 02-28 00:00: 00 No 1mg Lamictal 25 mg tablet 0 02-28 00:00: 00 No 2mg Seroquel 100 mg tablet 2021-0 02-28 00:00: 00 No 1mg Dose Unknown 0 02-28 00:00: 00 No Dose Unknown 0 02-28 00:00: 00 No Dose Unknown 0 02-28 00:00: 00 No Dose Unknown 0 02-28 00:00: 00 No Wellbutrin XL 300 mg 24 hr tablet, extended release 0 02-28 00:00: 00 No 1mg buspirone 10 mg tablet 2021-0 02-28 00:00: 00 No 1mg Dose Unknown 0 02-28 00:00: 00 No Seroquel 100 mg tablet 0 02-28 00:00: 00 No 1mg Dose Unknown 0 02-28 00:00: 00 No Dose Unknown 0 02-28 00:00: 00 No Dose Unknown 0 02-28 00:00: 00 No Dose Unknown 0 02-28 00:00: 00 No Wellbutrin XL 300 mg 24 hr tablet, extended release 2021-0 02-28 00:00: 00 No 1mg buspirone 10 mg tablet 2021-0 02-28 00:00: 00 No 1mg Dose Unknown 0 7-19 00:00: 00 No Dose Unknown 2022-0 7-19 00:00: 00 No Dose Unknown 2022-0 7-19 00:00: 00 No Dose Unknown 2022-0 7-19 00:00: 00 No Dose Unknown 2022-0 7-19 00:00: 00 No Dose Unknown 2022-0 7-19 00:00: 00 No Dose Unknown 2022-0 7-13 00:00: 00 No Dose Unknown 2022-0 7-13 00:00: 00 No Dose Unknown 2022-0 7-13 00:00: 00 No Dose Unknown 2022-0 7-13 00:00: 00 No Dose Unknown 2022-0 7-13 00:00: 00 No Dose Unknown 2022-0 7-13 00:00: 00 No Dose Unknown 2022-0 7-13 00:00: 00 No Dose Unknown 2022-0 7-13 00:00: 00 No Dose Unknown 2022-0 7-13 00:00: 00 No Dose Unknown 2022-0 7-13 00:00: 00 No Dose Unknown 2022-0 7-13 00:00: 00 No Dose Unknown 2022-0 7-13 00:00: 00 No Dose Unknown 2022-0 7-13 00:00: 00 No Dose Unknown 2022-0 7-13 00:00: 00 No Dose Unknown 2022-0 7-13 00:00: 00 No Dose Unknown 2022-0 7-13 00:00: 00 No Dose Unknown 2022-0 7-13 00:00: 00 No Dose Unknown 2022-0 7-13 00:00: 00 No Dose Unknown 2022-0 7-13 00:00: 00 No Dose Unknown 2022-0 7-13 00:00: 00 No Dose Unknown 2022-0 7- 00:00: 00 No Dose Unknown 2022-0 7-07 00:00: 00 No Dose Unknown 2022-0 7-07 00:00: 00 No Dose Unknown 2022-0 7-07 00:00: 00 No Dose Unknown 2022-0 7-07 00:00: 00 No Dose Unknown 2022-0 7- 00:00: 00 No Dose Unknown 2022-0 7- 00:00: 00 No Dose Unknown 2022-0 7- 00:00: 00 No Dose Unknown 2022-0 02-16 00:00: 00 No Dose Unknown 2022-0 02-16 00:00: 00 No Dose Unknown 2022-0 02-16 00:00: 00 No Dose Unknown 2022-0 02-16 00:00: 00 No Dose Unknown 2022-0 02-16 00:00: 00 No Dose Unknown 2022-0 02-16 00:00: 00 No Dose Unknown 2022-0 02-16 00:00: 00 No Dose Unknown 2022-0 02-16 00:00: 00 No Dose Unknown 2022-0 02-16 00:00: 00 No Dose Unknown 2022-0 02-16 00:00: 00 No Dose Unknown 2022-0 02-16 00:00: 00 No Dose Unknown 2022-0 02-16 00:00: 00 No Dose Unknown 2022-0 02-16 00:00: 00 No Dose Unknown 2022-0 02-16 00:00: 00 No Dose Unknown 2022-0 02-16 00:00: 00 No Dose Unknown 2022-0 02-16 00:00: 00 No Dose Unknown 2022-0 02-16 00:00: 00 No Dose Unknown 2022-0 02-16 00:00: 00 No Dose Unknown 2022-0 02-16 00:00: 00 No Dose Unknown 2022-0 02-16 00:00: 00 No Dose Unknown 2022-0 02-16 00:00: 00 No Dose Unknown 2022-0 02-16 00:00: 00 No Dose Unknown 2022-0 02-15 00:00: 00 No Dose Unknown 2022-0 02-15 00:00: 00 No Dose Unknown 2022-0 02-15 00:00: 00 No Dose Unknown 2022-0 02-15 00:00: 00 No Dose Unknown 2022-0 02-15 00:00: 00 No Wellbutrin XL 300 mg 24 hr tablet, extended release 2-0 02-14 00:00: 00 No 1mg buspirone 10 mg tablet 2-0 02-14 00:00: 00 No 1mg Seroquel 100 mg tablet 2022-0 02-14 00:00: 00 No 1mg Dose Unknown 2022-0 02-14 00:00: 00 No Dose Unknown 2022-0 02-14 00:00: 00 No Dose Unknown 2021-0 02-14 00:00: 00 No Dose Unknown 2021-0 02-14 00:00: 00 No Wellbutrin XL 300 mg 24 hr tablet, extended release 2021-0 02-14 00:00: 00 No 1mg buspirone 10 mg tablet 2021-0 02-14 00:00: 00 No 1mg Seroquel 100 mg tablet 2021-0 02-14 00:00: 00 No 1mg Dose Unknown 2021-0 02-14 00:00: 00 No Dose Unknown 2021-0 02-14 00:00: 00 No Dose Unknown 0 02-14 00:00: 00 No Dose Unknown 2021-0 02-14 00:00: 00 No Wellbutrin XL 300 mg 24 hr tablet, extended release 0 02-14 00:00: 00 No 1mg buspirone 10 mg tablet 0 02-14 00:00: 00 No 1mg Seroquel 100 mg tablet 2021-0 02-14 00:00: 00 No 1mg Lamictal 25 mg tablet 0 02-14 00:00: 00 No 1mg Dose Unknown 0 02-14 00:00: 00 No Dose Unknown 2021-0 02-14 00:00: 00 No Dose Unknown 0 02-14 00:00: 00 No Wellbutrin XL 300 mg 24 hr tablet, extended release 0 02-14 00:00: 00 No 1mg buspirone 10 mg tablet 2021-0 02-14 00:00: 00 No 1mg Seroquel 100 mg tablet 2021-0 02-14 00:00: 00 No 1mg Dose Unknown 0 02-14 00:00: 00 No Dose Unknown 0 02-14 00:00: 00 No Dose Unknown 2021-0 02-14 00:00: 00 No Dose Unknown 2021-0 02-14 00:00: 00 No Wellbutrin XL 300 mg 24 hr tablet, extended release 0 02-14 00:00: 00 No 1mg buspirone 10 mg tablet 2021-0 02-14 00:00: 00 No 1mg Seroquel 100 mg tablet 2021-0 02-14 00:00: 00 No 1mg Dose Unknown 2021-0 7 00:00: 00 No Dose Unknown 2021-0 7 00:00: 00 No Dose Unknown 2021-0 7 00:00: 00 No Dose Unknown 2021-0 7 00:00: 00 No Dose Unknown 2021-0 6 00:00: 00 No Dose Unknown 2021-0 6 00:00: 00 No Dose Unknown 2021-0 6 00:00: 00 No Dose Unknown 2021-0 6 00:00: 00 No Dose Unknown 2021-0 02-09 00:00: 00 No Dose Unknown 2021-0 6 00:00: 00 No Dose Unknown 2021-0 02-09 00:00: 00 No Dose Unknown 2021-0 02-09 00:00: 00 No Dose Unknown 2021-0 02-09 00:00: 00 No Dose Unknown 0 02-09 00:00: 00 No levothyroxi ne 112 mcg tablet 2021-0 01-19 00:00: 00 No 1mcg Dose Unknown 2021-0 01-19 00:00: 00 No levothyroxi ne 112 mcg tablet 2021-0 6 00:00: 00 No 1mcg levothyroxi ne 112 mcg tablet 2021-0 01-19 00:00: 00 No 1mcg levothyroxi ne 112 mcg tablet 2021-0 01-19 00:00: 00 No 1mcg TAKE 1 TABLET DAILY. 2021-0 01-18 00:00: 00 No levothyroxi ne 50 mcg tablet 2021-0 6 00:00: 00 No 1mcg TAKE 1 TABLET DAILY. 2021-0 6 00:00: 00 No Dose Unknown 2021-0 6 00:00: 00 No chlorthalid one 25 mg tablet 2021-0 6 00:00: 00 No 1mg levothyroxi ne 50 mcg tablet 2021-0 6 00:00: 00 No 1mcg chlorthalid one 25 mg tablet 2021-0 6 00:00: 00 No 1mg levothyroxi ne 50 mcg tablet 2021-0 6 00:00: 00 No 1mcg chlorthalid one 25 mg tablet 0 - 00:00: 00 No 1mg levothyroxi ne 50 mcg tablet 0 - 00:00: 00 No 1mcg spironolact one 100 mg tablet 0 - 00:00: 00 No 1mg ibuprofen 800 mg tablet 0 12-22 00:00: 00 No 1mg Dose Unknown 0 12-22 00:00: 00 No Dose Unknown 0 12-22 00:00: 00 No spironolact one 100 mg tablet 0 12-22 00:00: 00 No 1mg ibuprofen 800 mg tablet 0 12-22 00:00: 00 No 1mg spironolact one 100 mg tablet 0 12-22 00:00: 00 No 1mg ibuprofen 800 mg tablet 0 12-22 00:00: 00 No 1mg spironolact one 100 mg tablet 0 12-22 00:00: 00 No 1mg ibuprofen 800 mg tablet 0 12-22 00:00: 00 No 1mg Wellbutrin XL 300 mg 24 hr tablet, extended release 0 12-13 00:00: 00 No 1mg Dose Unknown 0 - 00:00: 00 No buspirone 10 mg tablet 0 - 00:00: 00 No 1mg Dose Unknown 0 12-13 00:00: 00 No TAKE 1 TABLET AT BEDTIME. 0 - 00:00: 00 No Dose Unknown 0 5- 00:00: 00 No Dose Unknown 0 5- 00:00: 00 No Dose Unknown 0 5- 00:00: 00 No Wellbutrin XL 300 mg 24 hr tablet, extended release 2021-0 5- 00:00: 00 No 1mg Celexa 20 mg tablet 0 5- 00:00: 00 No 1mg buspirone 10 mg tablet 0 5- 00:00: 00 No 1mg Seroquel 100 mg tablet 2021-0 5- 00:00: 00 No 1mg Wellbutrin XL 300 mg 24 hr tablet, extended release 0 5- 00:00: 00 No 1mg Dose Unknown 0 5- 00:00: 00 No buspirone 10 mg tablet 2021-0 5- 00:00: 00 No 1mg Seroquel 100 mg tablet 0 5- 00:00: 00 No 1mg Wellbutrin XL 300 mg 24 hr tablet, extended release 0 5- 00:00: 00 No 1mg Dose Unknown 0 - 00:00: 00 No buspirone 10 mg tablet 0 - 00:00: 00 No 1mg Dose Unknown 0 - 00:00: 00 No levothyroxi ne 25 mcg tablet 0 -18 00:00: 00 No 1mcg Dose Unknown 0 -18 00:00: 00 No levothyroxi ne 25 mcg tablet 0 4-18 00:00: 00 No 1mcg levothyroxi ne 25 mcg tablet 0 4-18 00:00: 00 No 1mcg levothyroxi ne 25 mcg tablet 0 4-18 00:00: 00 No 1mcg spironolact one 50 mg tablet 0 4-17 00:00: 00 No 1mg Dose Unknown 0 4-17 00:00: 00 No spironolact one 50 mg tablet 0 4-17 00:00: 00 No 1mg spironolact one 50 mg tablet 0 4-17 00:00: 00 No 1mg spironolact one 50 mg tablet 0 4-17 00:00: 00 No 1mg metformin ER 500 mg 24 hr tablet,exte nded release 0 4-14 00:00: 00 No 1mg spironolact one 50 mg tablet 0 4-14 00:00: 00 No 1mg levothyroxi ne 25 mcg tablet 0 4-14 00:00: 00 No 1mcg Dose Unknown 0 4-14 00:00: 00 No Dose Unknown 0 4-14 00:00: 00 No Dose Unknown 0 4-14 00:00: 00 No Dose Unknown 0 4-14 00:00: 00 No metformin ER 500 mg 24 hr tablet,exte nded release 0 11-24 00:00: 00 No 1mg spironolact one 50 mg tablet 0 11-24 00:00: 00 No 1mg levothyroxi ne 25 mcg tablet 0 11-24 00:00: 00 No 1mcg metformin ER 500 mg 24 hr tablet,exte nded release 0 11-24 00:00: 00 No 1mg spironolact one 50 mg tablet 0 11-24 00:00: 00 No 1mg levothyroxi ne 25 mcg tablet 0 11-24 00:00: 00 No 1mcg metformin ER 500 mg 24 hr tablet,exte nded release 0 11-24 00:00: 00 No 1mg spironolact one 50 mg tablet 0 11-24 00:00: 00 No 1mg levothyroxi ne 25 mcg tablet 0 11-24 00:00: 00 No 1mcg Wellbutrin XL 300 mg 24 hr tablet, extended release 0 11-16 00:00: 00 No 1mg Dose Unknown 0 11-16 00:00: 00 No Wellbutrin XL 300 mg 24 hr tablet, extended release 0 11-16 00:00: 00 No 1mg Wellbutrin XL 300 mg 24 hr tablet, extended release 0 11-16 00:00: 00 No 1mg Wellbutrin XL 300 mg 24 hr tablet, extended release 0 11-16 00:00: 00 No 1mg Dose Unknown 0 11-15 00:00: 00 No Wellbutrin XL 300 mg 24 hr tablet, extended release 0 11-15 00:00: 00 No 1mg buspirone 10 mg tablet 0 11-15 00:00: 00 No 1mg Dose Unknown 0 05 00:00: 00 No Dose Unknown 0 05 00:00: 00 No Dose Unknown 0 11-15 00:00: 00 No Dose Unknown 0 05 00:00: 00 No Celexa 20 mg tablet 0 4-05 00:00: 00 No 1mg Wellbutrin XL 300 mg 24 hr tablet, extended release 2022-0 4-05 00:00: 00 No 1mg buspirone 10 mg tablet 2022-0 4-05 00:00: 00 No 1mg Seroquel 100 mg tablet 2-0 4-05 00:00: 00 No 1mg Dose Unknown 2022-0 4-05 00:00: 00 No Dose Unknown 2022-0 4-05 00:00: 00 No Dose Unknown 2022-0 4-05 00:00: 00 No TAKE 1 TABLET AT BEDTIME. 2022-0 4-05 00:00: 00 No Wellbutrin XL 300 mg 24 hr tablet, extended release 2-0 4-05 00:00: 00 No 1mg Dose Unknown 2022-0 4-05 00:00: 00 No Dose Unknown 2022-0 4-05 00:00: 00 No Dose Unknown 2-0 4-05 00:00: 00 No Dose Unknown 2-0 4-05 00:00: 00 No Dose Unknown 2-0 4-05 00:00: 00 No Dose Unknown 2022-0 4-05 00:00: 00 No Wellbutrin XL 300 mg 24 hr tablet, extended release 2-0 4-05 00:00: 00 No 1mg buspirone 10 mg tablet 2-0 4-05 00:00: 00 No 1mg Seroquel 100 mg tablet 2-0 4-05 00:00: 00 No 1mg Dose Unknown 2022-0 4-05 00:00: 00 No Dose Unknown 2-0 4-05 00:00: 00 No Dose Unknown 2-0 4-05 00:00: 00 No Dose Unknown 2022-0 4-05 00:00: 00 No Wellbutrin XL 300 mg 24 hr tablet, extended release 2-0 4-05 00:00: 00 No 1mg buspirone 10 mg tablet 2-0 4-05 00:00: 00 No 1mg Dose Unknown 2022-0 4-05 00:00: 00 No Dose Unknown 2022-0 4-05 00:00: 00 No Dose Unknown 2022-0 4-05 00:00: 00 No Dose Unknown 2022-0 4-05 00:00: 00 No Dose Unknown 2022-0 3-03 00:00: 00 No Dose Unknown 2022-0 3-03 00:00: 00 No Dose Unknown 2022-0 3-03 00:00: 00 No Dose Unknown 2022-0 3-03 00:00: 00 No Dose Unknown 2022-0 3-03 00:00: 00 No Dose Unknown 2022-0 3-03 00:00: 00 No Dose Unknown 2022-0 3-03 00:00: 00 No Dose Unknown 2022-0 3-03 00:00: 00 No Dose Unknown 2022-0 3-03 00:00: 00 No Dose Unknown 2022-0 3-03 00:00: 00 No Dose Unknown 2022-0 3-03 00:00: 00 No Dose Unknown 2022-0 3-03 00:00: 00 No Dose Unknown 2022-0 3-03 00:00: 00 No Dose Unknown 2022-0 3-03 00:00: 00 No Dose Unknown 2022-0 3-03 00:00: 00 No Dose Unknown 2022-0 3-03 00:00: 00 No Dose Unknown 2022-0 3-03 00:00: 00 No Dose Unknown 2022-0 3-03 00:00: 00 No Dose Unknown 2022-0 3-03 00:00: 00 No Dose Unknown 2022-0 3-03 00:00: 00 No Dose Unknown 2022-0 3-03 00:00: 00 No Dose Unknown 2022-0 3-03 00:00: 00 No Dose Unknown 2022-0 3-03 00:00: 00 No Dose Unknown 2022-0 3-03 00:00: 00 No Dose Unknown 2022-0 3-03 00:00: 00 No Dose Unknown 2022-0 3-03 00:00: 00 No Dose Unknown 2022-0 3-03 00:00: 00 No Dose Unknown 2022-0 3-03 00:00: 00 No Dose Unknown 2022-0 3-03 00:00: 00 No Dose Unknown 2022-0 3-03 00:00: 00 No Dose Unknown 2022-0 3-03 00:00: 00 No Dose Unknown 2022-0 3-03 00:00: 00 No Dose Unknown 2022-0 3-03 00:00: 00 No Dose Unknown 2022-0 3-03 00:00: 00 No Dose Unknown 2022-0 3-03 00:00: 00 No Dose Unknown 2022-0 3-03 00:00: 00 No Dose Unknown 2022-0 3-03 00:00: 00 No Dose Unknown 2022-0 3-03 00:00: 00 No Dose Unknown 2022-0 3-03 00:00: 00 No Dose Unknown 2022-0 3-03 00:00: 00 No Dose Unknown 2022-0 3-03 00:00: 00 No Dose Unknown 2022-0 3-03 00:00: 00 No Dose Unknown 2022-0 3-03 00:00: 00 No Dose Unknown 2022-0 3-03 00:00: 00 No Dose Unknown 2022-0 3-03 00:00: 00 No Celexa 20 mg tablet 2022-0 2-25 00:00: 00 No 1mg Dose Unknown 2022-0 2-25 00:00: 00 No Dose Unknown 2022-0 2-25 00:00: 00 No Dose Unknown 2022-0 2-25 00:00: 00 No Dose Unknown 2022-0 2-25 00:00: 00 No Dose Unknown 2022-0 2-25 00:00: 00 No Dose Unknown 2022-0 2-25 00:00: 00 No Dose Unknown 2022-0 2-25 00:00: 00 No Dose Unknown 2022-0 2-25 00:00: 00 No Dose Unknown 2022-0 2-25 00:00: 00 No Dose Unknown 2022-0 2-25 00:00: 00 No Dose Unknown 2022-0 2-25 00:00: 00 No Celexa 20 mg tablet 2022-0 2-25 00:00: 00 No 1mg Dose Unknown 2022-0 2-25 00:00: 00 No Dose Unknown 2022-0 2-25 00:00: 00 No Dose Unknown 2022-0 2-25 00:00: 00 No Dose Unknown 2022-0 2-25 00:00: 00 No Dose Unknown 2022-0 2-25 00:00: 00 No Dose Unknown 2022-0 2-25 00:00: 00 No Dose Unknown 2022-0 2-25 00:00: 00 No Dose Unknown 2022-0 2-25 00:00: 00 No Dose Unknown 2022-0 2-25 00:00: 00 No Dose Unknown 2022-0 2-25 00:00: 00 No Dose Unknown 2022-0 2-25 00:00: 00 No Celexa 20 mg tablet 2022-0 2-25 00:00: 00 No 1mg Dose Unknown 2022-0 2-25 00:00: 00 No Dose Unknown 2022-0 2-25 00:00: 00 No Dose Unknown 2022-0 2-25 00:00: 00 No Dose Unknown 2022-0 2-25 00:00: 00 No Dose Unknown 2022-0 2-25 00:00: 00 No Dose Unknown 2022-0 2-25 00:00: 00 No Dose Unknown 2022-0 2-25 00:00: 00 No Dose Unknown 2022-0 2-25 00:00: 00 No Celexa 20 mg tablet 2022-0 2-25 00:00: 00 No 1mg Dose Unknown 2022-0 2-25 00:00: 00 No Dose Unknown 2022-0 2-25 00:00: 00 No Dose Unknown 2022-0 2-25 00:00: 00 No Dose Unknown 2022-0 2-25 00:00: 00 No Dose Unknown 2022-0 2-25 00:00: 00 No Dose Unknown 2022-0 2-25 00:00: 00 No Dose Unknown 2022-0 2-25 00:00: 00 No Dose Unknown 2022-0 2-25 00:00: 00 No Dose Unknown 2022-0 2-25 00:00: 00 No Dose Unknown 2022-0 2-25 00:00: 00 No Dose Unknown 2022-0 2-25 00:00: 00 No Dose Unknown 2022-0 2-25 00:00: 00 No Dose Unknown 2022-0 2-25 00:00: 00 No Dose Unknown 2022-0 2-25 00:00: 00 No Celexa 20 mg tablet 2022-0 2-25 00:00: 00 No 1mg Dose Unknown 2022-0 2-25 00:00: 00 No Dose Unknown 2022-0 2-25 00:00: 00 No Dose Unknown 2022-0 2-25 00:00: 00 No Dose Unknown 2022-0 2-25 00:00: 00 No Dose Unknown 2022-0 2-25 00:00: 00 No Dose Unknown 2022-0 2-25 00:00: 00 No Dose Unknown 2022-0 2-25 00:00: 00 No Dose Unknown 2022-0 2-25 00:00: 00 No Dose Unknown 2022-0 2-25 00:00: 00 No Dose Unknown 2022-0 2-25 00:00: 00 No Dose Unknown 2022-0 2-25 00:00: 00 No Dose Unknown 2022-0 2-08 00:00: 00 No Celexa 20 mg tablet 2022-0 2-08 00:00: 00 No 1mg Dose Unknown 2022-0 2-08 00:00: 00 No Dose Unknown 2022-0 2-08 00:00: 00 No Dose Unknown 2022-0 2-08 00:00: 00 No Dose Unknown 2022-0 2-08 00:00: 00 No Dose Unknown 2022-0 2-08 00:00: 00 No Celexa 20 mg tablet 2022-0 2-08 00:00: 00 No 1mg Dose Unknown 2-0 2-08 00:00: 00 No Dose Unknown 2022-0 2-08 00:00: 00 No Dose Unknown 2022-0 2-08 00:00: 00 No levothyroxi ne 25 mcg tablet 2022-0 2-08 00:00: 00 No 1mcg Dose Unknown 2-0 2-08 00:00: 00 No Celexa 20 mg tablet 2-0 2-08 00:00: 00 No 1mg Dose Unknown 2-0 2-08 00:00: 00 No Dose Unknown 2022-0 2-08 00:00: 00 No Dose Unknown 2022-0 2-08 00:00: 00 No levothyroxi ne 25 mcg tablet 2022-0 2-08 00:00: 00 No 1mcg Dose Unknown 2022-0 2-08 00:00: 00 No Celexa 20 mg tablet 2022-0 2-08 00:00: 00 No 1mg Dose Unknown 2022-0 2-08 00:00: 00 No Dose Unknown 2022-0 2-08 00:00: 00 No Dose Unknown 2022-0 2-08 00:00: 00 No levothyroxi ne 25 mcg tablet 2022-0 2-08 00:00: 00 No 1mcg Dose Unknown 2022-0 2-08 00:00: 00 No Celexa 20 mg tablet 2022-0 2-08 00:00: 00 No 1mg Dose Unknown 2022-0 2-08 00:00: 00 No Dose Unknown 2022-0 2-08 00:00: 00 No Dose Unknown 2022-0 2-08 00:00: 00 No levothyroxi ne 25 mcg tablet 2022-0 2-08 00:00: 00 No 1mcg Dose Unknown 2022-0 2-02 00:00: 00 No Dose Unknown 2022-0 2-02 00:00: 00 No Dose Unknown 2022-0 2-02 00:00: 00 No Dose Unknown 2022-0 2-02 00:00: 00 No Dose Unknown 2022-0 2-02 00:00: 00 No Dose Unknown 2022-0 2-02 00:00: 00 No Dose Unknown 2022-0 2-02 00:00: 00 No Dose Unknown 2022-0 2-02 00:00: 00 No Dose Unknown 2022-0 2-02 00:00: 00 No Dose Unknown 2022-0 2-02 00:00: 00 No Dose Unknown 2022-0 2-02 00:00: 00 No Dose Unknown 2022-0 2-02 00:00: 00 No Dose Unknown 2022-0 2-02 00:00: 00 No Dose Unknown 2022-0 2-02 00:00: 00 No Dose Unknown 2022-0 2-02 00:00: 00 No Dose Unknown 2022-0 2-02 00:00: 00 No Dose Unknown 2022-0 2-02 00:00: 00 No Dose Unknown 2022-0 2-02 00:00: 00 No Dose Unknown 2022-0 2-02 00:00: 00 No Dose Unknown 2022-0 2-02 00:00: 00 No Wellbutrin XL 150 mg 24 hr tablet, extended release 2022-0 1-24 00:00: 00 No 1mg Dose Unknown 2022-0 1-24 00:00: 00 No Dose Unknown 2022-0 1-24 00:00: 00 No Dose Unknown 2022-0 1-24 00:00: 00 No Wellbutrin XL 150 mg 24 hr tablet, extended release 2022-0 1-24 00:00: 00 No 1mg Wellbutrin XL 150 mg 24 hr tablet, extended release 2022-0 1-24 00:00: 00 No 1mg Dose Unknown 2022-0 1-24 00:00: 00 No Dose Unknown 2022-0 1-24 00:00: 00 No Dose Unknown 2-0 1-24 00:00: 00 No Dose Unknown 2022-0 124 00:00: 00 No Dose Unknown 2-0 1-24 00:00: 00 No Dose Unknown 2-0 124 00:00: 00 No Wellbutrin XL 150 mg 24 hr tablet, extended release 2022-0 1-24 00:00: 00 No 1mg Dose Unknown 2-0 124 00:00: 00 No Dose Unknown 2-0 124 00:00: 00 No Dose Unknown 2-0 124 00:00: 00 No Wellbutrin XL 150 mg 24 hr tablet, extended release 2-0 124 00:00: 00 No 1mg Dose Unknown 2-0 124 00:00: 00 No Dose Unknown 2-0 124 00:00: 00 No Dose Unknown 2-0 124 00:00: 00 No Dose Unknown 2-0 111 00:00: 00 No Wellbutrin XL 150 mg 24 hr tablet, extended release 2022-0 1-11 00:00: 00 No 1mg Dose Unknown 2-0 1-11 00:00: 00 No Dose Unknown 2-0 1-11 00:00: 00 No Dose Unknown 2-0 1-11 00:00: 00 No Wellbutrin XL 150 mg 24 hr tablet, extended release 2022-0 1-11 00:00: 00 No 1mg Dose Unknown 2-0 1-11 00:00: 00 No Dose Unknown 2-0 1-11 00:00: 00 No Dose Unknown 2022-0 1-11 00:00: 00 No Wellbutrin XL 150 mg 24 hr tablet, extended release 2022-0 1-11 00:00: 00 No 1mg Dose Unknown 2022-0 1-11 00:00: 00 No Dose Unknown 2-0 1-11 00:00: 00 No Dose Unknown 2-0 1-11 00:00: 00 No Wellbutrin XL 150 mg 24 hr tablet, extended release 2022-0 1-11 00:00: 00 No 1mg Dose Unknown - 00:00: 00 No Dose Unknown 08-23 00:00: 00 No Dose Unknown 08-23 00:00: 00 No Wellbutrin XL 150 mg 24 hr tablet, extended release 08-23 00:00: 00 No 1mg Dose Unknown 08-23 00:00: 00 No Dose Unknown 08-23 00:00: 00 No Dose Unknown 2020-08 00:00: 00 No Dose Unknown 2020-08 00:00: 00 No Dose Unknown 2020-08 00:00: 00 No Zofran 4 mg tablet 2020-08 00:00: 00 No 1mg Dose Unknown 2020-08 00:00: 00 No omeprazole 40 mg capsule,del ayed release 2020-08 00:00: 00 No 1mg Zofran 4 mg tablet 2020-08 00:00: 00 No 1mg Dose Unknown 2020-08 00:00: 00 No omeprazole 40 mg capsule,del ayed release 2020-08 00:00: 00 No 1mg Zofran 4 mg tablet 2020-08 00:00: 00 No 1mg Dose Unknown 2020-08 00:00: 00 No omeprazole 40 mg capsule,del ayed release 2020-08 00:00: 00 No 1mg Zofran 4 mg tablet 2020-08 00:00: 00 No 1mg Dose Unknown 2020-08 00:00: 00 No omeprazole 40 mg capsule,del ayed release 2020-08 00:00: 00 No 1mg maalox:diph enhydrAMINE :lidocaine 2 % viscous 1:1:1 (FIRST-MOUT HWASH BLM) oral suspension 15 mL 2020-08 21:00: 00 07-27 20:01 :00 No 15mL 15 mL, Oral (Swish & Swallow), ONCE, 1 dose, On Sun07/27/21 at 1500, Routine [facility] methocarbam oL (ROBAXIN) tablet 500 mg 2020-08 19:30: 00 07-27 18:29 :00 No 500mg 500 mg, Oral, ONCE, 1 dose, On Sun07/27/21 at 1330, Routine [facility] ketorolac (TORADOL) injection 30 mg 2020-08 19:30: 00 07-27 18:28 :00 No 30mg 30 mg, Slow IV Push, ONCE, 1 dose, On Sun07/27/21 at 1330, PAWEL
[facility] member approving Restricted medication : Yamil MESSINA [facility] aspirin chewable tablet 324 mg 2020-08 19:30: 00 07-27 19:30 :00 No 324mg 324 mg, Oral, ONCE, 1 dose, On Sun07/27/21 at 1330, Routine [facility] Dose Unknown 2020-08 00:00: 00 No hydroxyzine HCl 50 mg tablet 2020-08 00:00: 00 No 1mg Dose Unknown 2020-08 00:00: 00 No Dose Unknown 2020-08 00:00: 00 No hydroxyzine HCl 50 mg tablet 2020-08 00:00: 00 No 1mg Dose Unknown 2020-08 00:00: 00 No Dose Unknown 2020-08 00:00: 00 No hydroxyzine HCl 50 mg tablet 2020-08 00:00: 00 No 1mg Dose Unknown 2020-08 00:00: 00 No Dose Unknown 2020-08 00:00: 00 No hydroxyzine HCl 50 mg tablet 2020-08 00:00: 00 No 1mg Dose Unknown 2020-08 00:00: 00 No Dose Unknown 2020-08 00:00: 00 No hydroxyzine HCl 50 mg tablet 2020-08 00:00: 00 No 1mg Dose Unknown 2020-08 00:00: 00 No famotidine (PEPCID) 40 mg tablet 2020-08 00:00: 00 02-16 00:00 :00 No [id number] 40mg Take 1 tablet by mouth daily. [facility] ibuprofen 600 mg tablet 2020-08 2 00:00: 00 02-16 00:00 :00 No [id number] 600mg Take 1 tablet by mouth every 6 (six) hours as needed for Pain (scale 4-6). [facility] methocarbam oL 500 mg tablet 2020-08 00:00: 00 02-16 00:00 :00 No [id number] 500mg Take 1 tablet by mouth 4 (four) times daily. [facility] sertraline 100 mg tablet 2020-08 00:00: 00 No 15mg hydroxyzine HCl 50 mg tablet 2020-08 00:00: 00 No 1mg trazodone 100 mg tablet 2020-08 00:00: 00 No 2mg sertraline 100 mg tablet 2020-08 00:00: 00 No 15mg hydroxyzine HCl 50 mg tablet 2020-08 00:00: 00 No 1mg trazodone 100 mg tablet 2020-08 00:00: 00 No 2mg sertraline 100 mg tablet 2020-08 00:00: 00 No 15mg hydroxyzine HCl 50 mg tablet 2020-08 00:00: 00 No 1mg trazodone 100 mg tablet 2020-08 00:00: 00 No 2mg sertraline 100 mg tablet 2020-08 00:00: 00 No 15mg hydroxyzine HCl 50 mg tablet 2020-08 00:00: 00 No 1mg trazodone 100 mg tablet 2020-08 00:00: 00 No 2mg sertraline 100 mg tablet 2020-08 00:00: 00 No 15mg hydroxyzine HCl 50 mg tablet 2020-08 00:00: 00 No 1mg trazodone 100 mg tablet 2020-08 00:00: 00 No 2mg acetaminoph en (TYLENOL) tablet 1,000 mg 2020-08 05:45: 06-25 04:43 :00 No 1000mg 1,000 mg, Oral, ONCE, 1 dose, On Sun06/24/21 at 2345, [facility]08 00:00: 00 No Dose Unknown 2020-08 00:00: 00 No Dose Unknown 2020-08 00:00: 00 No Abilify 2 mg tablet 2020-08 00:00: 00 No 1mg Dose Unknown 2020-08 00:00: 00 No Dose Unknown 2020-08 00:00: 00 No Dose Unknown 2020-08 00:00: 00 No Abilify 2 mg tablet 2020-08 00:00: 00 No 1mg Dose Unknown 2020-08 00:00: 00 No Dose Unknown 2020-08 00:00: 00 No Dose Unknown 2020-08 00:00: 00 No Abilify 2 mg tablet 2020-08 00:00: 00 No 1mg Dose Unknown 2020-08 00:00: 00 No Dose Unknown 2020-08 00:00: 00 No Dose Unknown 2020-08 00:00: 00 No Abilify 2 mg tablet 2020-08 00:00: 00 No 1mg Dose Unknown 2020-08 00:00: 00 No Dose Unknown 2020-08 00:00: 00 No Dose Unknown 2020-08 00:00: 00 No Abilify 2 mg tablet 2020-08 00:00: 00 No 1mg Zoloft 100 mg tablet 2020-08 00:00: 00 No 1mg Zoloft 100 mg tablet 2020-08 00:00: 00 No 1mg hydroxyzine HCl 50 mg tablet 2020-08 0 00:00: 00 No 1mg trazodone 100 mg tablet 2020-08 0 00:00: 00 No 1mg hydroxyzine HCl 50 mg tablet 2020-08 0 00:00: 00 No 1mg trazodone 100 mg tablet 2021-1 0-18 00:00: 00 No 1mg Zoloft 100 mg tablet 2020-08 0-18 00:00: 00 No 1mg hydroxyzine HCl 50 mg tablet 2020-08 0-18 00:00: 00 No 1mg trazodone 100 mg tablet 2020-08 0-18 00:00: 00 No 1mg Zoloft 100 mg tablet 2020-08 0-18 00:00: 00 No 1mg hydroxyzine HCl 50 mg tablet 2020-08 0-18 00:00: 00 No 1mg trazodone 100 mg tablet 2020-08 0-18 00:00: 00 No 1mg Zoloft 100 mg tablet 2020-08 0-18 00:00: 00 No 1mg hydroxyzine HCl 50 mg tablet 2020-08 0-18 00:00: 00 No 1mg trazodone 100 mg tablet 2020-08 0-18 00:00: 00 No 1mg sertraline 50 mg tablet 2020-08 0-04 00:00: 00 No 1mg Dose Unknown 2020-08 0-04 00:00: 00 No sertraline 50 mg tablet 2020-08 0-04 00:00: 00 No 1mg Dose Unknown 2020-08 0-04 00:00: 00 No sertraline 50 mg tablet 2020-08 0-04 00:00: 00 No 1mg Dose Unknown 2020-08 0-04 00:00: 00 No sertraline 50 mg tablet 2020-08 0-04 00:00: 00 No 1mg Dose Unknown 2020-08 0-04 00:00: 00 No sertraline 50 mg tablet 2020-08 0-04 00:00: 00 No 1mg Dose Unknown 2020-08 0-04 00:00: 00 No sertraline 50 mg tablet 0 9-20 00:00: 00 No 1mg Dose Unknown 0 9-20 00:00: 00 No sertraline 50 mg tablet 0 9-20 00:00: 00 No 1mg Dose Unknown 0 9- 00:00: 00 No sertraline 50 mg tablet 0 9- 00:00: 00 No 1mg Dose Unknown 0 9- 00:00: 00 No sertraline 50 mg tablet 2021-0 9-20 00:00: 00 No 1mg Dose Unknown 05-02 00:00: 00 No sertraline 50 mg tablet 05-02 00:00: 00 No 1mg Dose Unknown 05-02 00:00: 00 No levonorgest reL (LILETTA) IUD 1 Device 01-05 21:00: 00 01-05 21:00 :00 No [id number] 100 1{devic e} [facility] ibuprofen (IBU) tablet 800 mg 01-05 21:00: 00 01-05 21:00 :00 No [id number] 100 800mg [facility] levonorgest rel (LILETTA INTRAUTERIN E) 01-05 00:00: 00 01-05 04:59 :00 No by Intrauteri ne route. [facility] levonorgest rel (LILETTA INTRAUTERIN E) 01-05 00:00: 00 02-16 00:00 :00 No by Intrauteri ne route. [facility] [facility] ProAir HFA 90 mcg/actuati on aerosol inhaler 12-13 00:00: 00 No 2mcg/ac tuation Tessalon Perles 100 mg capsule 12-13 00:00: 00 No 1mg ProAir HFA 90 mcg/actuati on aerosol inhaler 12-13 00:00: 00 No 2mcg/ac tuation Tessalon Perles 100 mg capsule 12-13 00:00: 00 No 1mg ProAir HFA 90 mcg/actuati on aerosol inhaler 12-13 00:00: 00 No 2mcg/ac tuation ProAir HFA 90 mcg/actuati on aerosol inhaler 12-13 00:00: 00 No 2mcg/ac tuation Tessalon Perles 100 mg capsule 12-13 00:00: 00 No 1mg Tessalon Perles 100 mg capsule - 00:00: 00 No 1mg ProAir HFA 90 mcg/actuati on aerosol inhaler 12-13 00:00: 00 No 2mcg/ac tuation Tessalon Perles 100 mg capsule 12-13 00:00: 00 No 1mg mupirocin 2 % topical ointment 11-19 00:00: 00 No 1% clotrimazol e 1 % topical cream 11-19 00:00: 00 No 1% Diflucan 150 mg tablet 11-19 00:00: 00 No 1mg mupirocin 2 % topical ointment 11-19 00:00: 00 No 1% mupirocin 2 % topical ointment 11-19 00:00: 00 No 1% clotrimazol e 1 % topical cream 11-19 00:00: 00 No 1% Diflucan 150 mg tablet 11-19 00:00: 00 No 1mg clotrimazol e 1 % topical cream 11-19 00:00: 00 No 1% Diflucan 150 mg tablet 11-19 00:00: 00 No 1mg mupirocin 2 % topical ointment 11-19 00:00: 00 No 1% clotrimazol e 1 % topical cream 11-19 00:00: 00 No 1% Diflucan 150 mg tablet 11-19 00:00: 00 No 1mg mupirocin 2 % topical ointment 11-19 00:00: 00 No 1% clotrimazol e 1 % topical cream 11-19 00:00: 00 No 1% Diflucan 150 mg tablet 11-19 00:00: 00 No 1mg [facility] No known medications No Un kurt [facility] Immunizations Ordered Immunization Name Filled Immunization Name Date Status Comments Source SARS-COV-2 COVID-19 PFIZER VACCINE 2020-12-02 00:00:00 Completed [facility] SARS-COV-2 COVID-19 PFIZER VACCINE 2020-12-02 00:00:00 Completed [facility] SARS-COV-2 COVID-19 PFIZER VACCINE 2020-12-02 00:00:00 Completed [facility] SARS-COV-2 COVID-19 PFIZER VACCINE 2020-12-02 00:00:00 Completed [facility] SARS-COV-2 COVID-19 PFIZER VACCINE 2020-12-02 00:00:00 Completed [facility] SARS-COV-2 COVID-19 PFIZER VACCINE 2020-12-02 00:00:00 Completed [facility] SARS-COV-2 COVID-19 PFIZER VACCINE 2020-12-02 00:00:00 Completed [facility] SARS-COV-2 COVID-19 PFIZER VACCINE 2020-12-02 00:00:00 Completed [facility] SARS-COV-2 COVID-19 PFIZER VACCINE 2020-12-02 00:00:00 Completed [facility] SARS-COV-2 COVID-19 PFIZER VACCINE 2020-12-02 00:00:00 Completed [facility] SARS-COV-2 COVID-19 PFIZER VACCINE 2020-12-02 00:00:00 Completed [facility] SARS-COV-2 COVID-19 PFIZER VACCINE 2020-12-02 00:00:00 Completed [facility] SARS-COV-2 COVID-19 PFIZER VACCINE 2020-12-02 00:00:00 Completed [facility] SARS-COV-2 COVID-19 PFIZER VACCINE 2020-12-02 00:00:00 Completed [facility] SARS-COV-2 COVID-19 PFIZER VACCINE 2020-12-02 00:00:00 Completed [facility] SARS-COV-2 COVID-19 PFIZER VACCINE 2020-12-02 00:00:00 Completed [facility] SARS-COV-2 COVID-19 PFIZER VACCINE 2020-12-02 00:00:00 Completed [facility] SARS-COV-2 COVID-19 PFIZER VACCINE 2020-12-02 00:00:00 Completed [facility] SARS-COV-2 COVID-19 PFIZER VACCINE 2020-12-02 00:00:00 Completed [facility] SARS-COV-2 COVID-19 PFIZER VACCINE 2020-12-02 00:00:00 Completed [facility] SARS-COV-2 COVID-19 PFIZER VACCINE 2020-12-02 00:00:00 Completed [facility] SARS-COV-2 COVID-19 PFIZER VACCINE 2020-12-02 00:00:00 Completed [facility] SARS-COV-2 COVID-19 PFIZER VACCINE 2020-12-02 00:00:00 Completed [facility] SARS-COV-2 COVID-19 PFIZER VACCINE 2020-12-02 00:00:00 Completed [facility] SARS-COV-2 COVID-19 PFIZER VACCINE 2020-12-02 00:00:00 Completed [facility] SARS-COV-2 COVID-19 PFIZER VACCINE 2020-12-02 00:00:00 Completed [facility] SARS-COV-2 COVID-19 PFIZER VACCINE 2020-12-02 00:00:00 Completed [facility] SARS-COV-2 COVID-19 PFIZER VACCINE 2020-12-02 00:00:00 Completed [facility] SARS-COV-2 COVID-19 PFIZER VACCINE 2020-12-02 00:00:00 Completed [facility] SARS-COV-2 COVID-19 PFIZER VACCINE 2020-12-02 00:00:00 Completed [facility] SARS-COV-2 COVID-19 PFIZER VACCINE 2020-12-02 00:00:00 Completed [facility] SARS-COV-2 COVID-19 PFIZER VACCINE 2020-12-02 00:00:00 Completed [facility] SARS-COV-2 COVID-19 PFIZER VACCINE 2020-12-02 00:00:00 Completed [facility] SARS-COV-2 COVID-19 PFIZER VACCINE 2020-12-02 00:00:00 Completed [facility] SARS-COV-2 COVID-19 PFIZER VACCINE 2020-12-02 00:00:00 Completed [facility] SARS-COV-2 COVID-19 PFIZER VACCINE 2020-12-02 00:00:00 Completed [facility] SARS-COV-2 COVID-19 PFIZER VACCINE 2020-12-02 00:00:00 Completed [facility] SARS-COV-2 COVID-19 PFIZER VACCINE 2020-12-02 00:00:00 Completed [facility] SARS-COV-2 COVID-19 PFIZER VACCINE 2020-12-02 00:00:00 Completed [facility] SARS-COV-2 COVID-19 PFIZER VACCINE 2020-12-02 00:00:00 Completed [facility] SARS-COV-2 COVID-19 PFIZER VACCINE 2020-12-02 00:00:00 Completed [facility] SARS-COV-2 COVID-19 PFIZER VACCINE 2020-12-02 00:00:00 Completed [facility] SARS-COV-2 COVID-19 PFIZER VACCINE 2020-12-02 00:00:00 Completed [facility] SARS-COV-2 COVID-19 PFIZER VACCINE 2020-12-02 00:00:00 Completed [facility] SARS-COV-2 COVID-19 PFIZER VACCINE 2020-12-02 00:00:00 Completed [facility] SARS-COV-2 COVID-19 PFIZER VACCINE 2020-12-02 00:00:00 Completed [facility] SARS-COV-2 COVID-19 PFIZER VACCINE 2020-12-02 00:00:00 Completed [facility] SARS-COV-2 COVID-19 PFIZER VACCINE 2020-12-02 00:00:00 Completed [facility] SARS-COV-2 COVID-19 PFIZER VACCINE 2020-12-02 00:00:00 Completed [facility] SARS-COV-2 COVID-19 PFIZER VACCINE 2020-12-02 00:00:00 Completed [facility] SARS-COV-2 COVID-19 PFIZER VACCINE 2020-12-02 00:00:00 Completed [facility] SARS-COV-2 COVID-19 PFIZER VACCINE 2020-12-02 00:00:00 Completed [facility] SARS-COV-2 COVID-19 PFIZER VACCINE 2020-12-02 00:00:00 Completed [facility] SARS-COV-2 COVID-19 PFIZER VACCINE 2020-12-02 00:00:00 Completed [facility] SARS-COV-2 COVID-19 PFIZER VACCINE 2020-12-02 00:00:00 Completed [facility] SARS-COV-2 COVID-19 PFIZER VACCINE 2020-12-02 00:00:00 Completed [facility] SARS-COV-2 COVID-19 PFIZER VACCINE 2020-12-02 00:00:00 Completed [facility] SARS-COV-2 COVID-19 PFIZER VACCINE 2020-11-09 00:00:00 Completed [facility] SARS-COV-2 COVID-19 PFIZER VACCINE 2020-11-09 00:00:00 Completed [facility] SARS-COV-2 COVID-19 PFIZER VACCINE 2020-11-09 00:00:00 Completed [facility] SARS-COV-2 COVID-19 PFIZER VACCINE 2020-11-09 00:00:00 Completed [facility] SARS-COV-2 COVID-19 PFIZER VACCINE 2020-11-09 00:00:00 Completed [facility] SARS-COV-2 COVID-19 PFIZER VACCINE 2020-11-09 00:00:00 Completed [facility] SARS-COV-2 COVID-19 PFIZER VACCINE 2020-11-09 00:00:00 Completed [facility] SARS-COV-2 COVID-19 PFIZER VACCINE 2020-11-09 00:00:00 Completed [facility] SARS-COV-2 COVID-19 PFIZER VACCINE 2020-11-09 00:00:00 Completed [facility] SARS-COV-2 COVID-19 PFIZER VACCINE 2020-11-09 00:00:00 Completed [facility] SARS-COV-2 COVID-19 PFIZER VACCINE 2020-11-09 00:00:00 Completed [facility] SARS-COV-2 COVID-19 PFIZER VACCINE 2020-11-09 00:00:00 Completed [facility] SARS-COV-2 COVID-19 PFIZER VACCINE 2020-11-09 00:00:00 Completed [facility] SARS-COV-2 COVID-19 PFIZER VACCINE 2020-11-09 00:00:00 Completed [facility] SARS-COV-2 COVID-19 PFIZER VACCINE 2020-11-09 00:00:00 Completed [facility] SARS-COV-2 COVID-19 PFIZER VACCINE 2020-11-09 00:00:00 Completed [facility] SARS-COV-2 COVID-19 PFIZER VACCINE 2020-11-09 00:00:00 Completed [facility] SARS-COV-2 COVID-19 PFIZER VACCINE 2020-11-09 00:00:00 Completed [facility] SARS-COV-2 COVID-19 PFIZER VACCINE 2020-11-09 00:00:00 Completed [facility] SARS-COV-2 COVID-19 PFIZER VACCINE 2020-11-09 00:00:00 Completed [facility] SARS-COV-2 COVID-19 PFIZER VACCINE 2020-11-09 00:00:00 Completed [facility] SARS-COV-2 COVID-19 PFIZER VACCINE 2020-11-09 00:00:00 Completed [facility] SARS-COV-2 COVID-19 PFIZER VACCINE 2020-11-09 00:00:00 Completed [facility] SARS-COV-2 COVID-19 PFIZER VACCINE 2020-11-09 00:00:00 Completed [facility] SARS-COV-2 COVID-19 PFIZER VACCINE 2020-11-09 00:00:00 Completed [facility] SARS-COV-2 COVID-19 PFIZER VACCINE 2020-11-09 00:00:00 Completed [facility] SARS-COV-2 COVID-19 PFIZER VACCINE 2020-11-09 00:00:00 Completed [facility] SARS-COV-2 COVID-19 PFIZER VACCINE 2020-11-09 00:00:00 Completed [facility] SARS-COV-2 COVID-19 PFIZER VACCINE 2020-11-09 00:00:00 Completed [facility] SARS-COV-2 COVID-19 PFIZER VACCINE 2020-11-09 00:00:00 Completed [facility] SARS-COV-2 COVID-19 PFIZER VACCINE 2020-11-09 00:00:00 Completed [facility] SARS-COV-2 COVID-19 PFIZER VACCINE 2020-11-09 00:00:00 Completed [facility] SARS-COV-2 COVID-19 PFIZER VACCINE 2020-11-09 00:00:00 Completed [facility] SARS-COV-2 COVID-19 PFIZER VACCINE 2020-11-09 00:00:00 Completed [facility] SARS-COV-2 COVID-19 PFIZER VACCINE 2020-11-09 00:00:00 Completed [facility] SARS-COV-2 COVID-19 PFIZER VACCINE 2020-11-09 00:00:00 Completed [facility] SARS-COV-2 COVID-19 PFIZER VACCINE 2020-11-09 00:00:00 Completed [facility] SARS-COV-2 COVID-19 PFIZER VACCINE 2020-11-09 00:00:00 Completed [facility] SARS-COV-2 COVID-19 PFIZER VACCINE 2020-11-09 00:00:00 Completed [facility] SARS-COV-2 COVID-19 PFIZER VACCINE 2020-11-09 00:00:00 Completed [facility] SARS-COV-2 COVID-19 PFIZER VACCINE 2020-11-09 00:00:00 Completed [facility] SARS-COV-2 COVID-19 PFIZER VACCINE 2020-11-09 00:00:00 Completed [facility] SARS-COV-2 COVID-19 PFIZER VACCINE 2020-11-09 00:00:00 Completed [facility] SARS-COV-2 COVID-19 PFIZER VACCINE 2020-11-09 00:00:00 Completed [facility] SARS-COV-2 COVID-19 PFIZER VACCINE 2020-11-09 00:00:00 Completed [facility] SARS-COV-2 COVID-19 PFIZER VACCINE 2020-11-09 00:00:00 Completed [facility] SARS-COV-2 COVID-19 PFIZER VACCINE 2020-11-09 00:00:00 Completed [facility] SARS-COV-2 COVID-19 PFIZER VACCINE 2020-11-09 00:00:00 Completed [facility] SARS-COV-2 COVID-19 PFIZER VACCINE 2020-11-09 00:00:00 Completed [facility] SARS-COV-2 COVID-19 PFIZER VACCINE 2020-11-09 00:00:00 Completed [facility] SARS-COV-2 COVID-19 PFIZER VACCINE 2020-11-09 00:00:00 Completed [facility] SARS-COV-2 COVID-19 PFIZER VACCINE 2020-11-09 00:00:00 Completed [facility] SARS-COV-2 COVID-19 PFIZER VACCINE 2020-11-09 00:00:00 Completed [facility] SARS-COV-2 COVID-19 PFIZER VACCINE 2020-11-09 00:00:00 Completed [facility] SARS-COV-2 COVID-19 PFIZER VACCINE 2020-11-09 00:00:00 Completed [facility] SARS-COV-2 COVID-19 PFIZER VACCINE 2020-11-09 00:00:00 Completed [facility] SARS-COV-2 COVID-19 PFIZER VACCINE 2020-11-09 00:00:00 Completed [facility] SARS-COV-2 COVID-19 PFIZER VACCINE Unknown Completed [facility] SARS-COV-2 COVID-19 PFIZER VACCINE Unknown Completed [facility] SARS-COV-2 COVID-19 PFIZER VACCINE Unknown Completed [facility] SARS-COV-2 COVID-19 PFIZER VACCINE Unknown Completed [facility] SARS-COV-2 COVID-19 PFIZER VACCINE Unknown Completed [facility] SARS-COV-2 COVID-19 PFIZER VACCINE Unknown Completed [facility] SARS-COV-2 COVID-19 PFIZER VACCINE Unknown Completed [facility] SARS-COV-2 COVID-19 PFIZER VACCINE Unknown Completed [facility] SARS-COV-2 COVID-19 PFIZER VACCINE Unknown Completed [facility] SARS-COV-2 COVID-19 PFIZER VACCINE Unknown Completed [facility] SARS-COV-2 COVID-19 PFIZER VACCINE Unknown Completed [facility] SARS-COV-2 COVID-19 PFIZER VACCINE Unknown Completed [facility] SARS-COV-2 COVID-19 PFIZER VACCINE Unknown Completed [facility] SARS-COV-2 COVID-19 PFIZER VACCINE Unknown Completed [facility] SARS-COV-2 COVID-19 PFIZER VACCINE Unknown Completed [facility] SARS-COV-2 COVID-19 PFIZER VACCINE Unknown Completed [facility] SARS-COV-2 COVID-19 PFIZER VACCINE Unknown Completed [facility] SARS-COV-2 COVID-19 PFIZER VACCINE Unknown Completed [facility] SARS-COV-2 COVID-19 PFIZER VACCINE Unknown Completed [facility] SARS-COV-2 COVID-19 PFIZER VACCINE Unknown Completed [facility] SARS-COV-2 COVID-19 PFIZER VACCINE Unknown Completed [facility] SARS-COV-2 COVID-19 PFIZER VACCINE Unknown Completed [facility] SARS-COV-2 COVID-19 PFIZER VACCINE Unknown Completed [facility] SARS-COV-2 COVID-19 PFIZER VACCINE Unknown Completed [facility] SARS-COV-2 COVID-19 PFIZER VACCINE Unknown Completed [facility] SARS-COV-2 COVID-19 PFIZER VACCINE Unknown Completed [facility] SARS-COV-2 COVID-19 PFIZER VACCINE Unknown Completed [facility] SARS-COV-2 COVID-19 PFIZER VACCINE Unknown Completed [facility] SARS-COV-2 COVID-19 PFIZER VACCINE Unknown Completed [facility] SARS-COV-2 COVID-19 PFIZER VACCINE Unknown Completed [facility] SARS-COV-2 COVID-19 PFIZER VACCINE Unknown Completed [facility] SARS-COV-2 COVID-19 PFIZER VACCINE Unknown Completed [facility] SARS-COV-2 COVID-19 PFIZER VACCINE Unknown Completed [facility] SARS-COV-2 COVID-19 PFIZER VACCINE Unknown Completed [facility] SARS-COV-2 COVID-19 PFIZER VACCINE Unknown Completed [facility] SARS-COV-2 COVID-19 PFIZER VACCINE Unknown Completed [facility] SARS-COV-2 COVID-19 PFIZER VACCINE Unknown Completed [facility] SARS-COV-2 COVID-19 PFIZER VACCINE Unknown Completed [facility] SARS-COV-2 COVID-19 PFIZER VACCINE Unknown Completed [facility] SARS-COV-2 COVID-19 PFIZER VACCINE Unknown Completed [facility] SARS-COV-2 COVID-19 PFIZER VACCINE Unknown Completed [facility] SARS-COV-2 COVID-19 PFIZER VACCINE Unknown Completed [facility] SARS-COV-2 COVID-19 PFIZER VACCINE Unknown Completed [facility] SARS-COV-2 COVID-19 PFIZER VACCINE Unknown Completed [facility] SARS-COV-2 COVID-19 PFIZER VACCINE Unknown Completed [facility] SARS-COV-2 COVID-19 PFIZER VACCINE Unknown Completed [facility] SARS-COV-2 COVID-19 PFIZER VACCINE Unknown Completed [facility] SARS-COV-2 COVID-19 PFIZER VACCINE Unknown Completed [facility] SARS-COV-2 COVID-19 PFIZER VACCINE Unknown Completed [facility] SARS-COV-2 COVID-19 PFIZER VACCINE Unknown Completed [facility] SARS-COV-2 COVID-19 PFIZER VACCINE Unknown Completed [facility] SARS-COV-2 COVID-19 PFIZER VACCINE Unknown Completed [facility] SARS-COV-2 COVID-19 PFIZER VACCINE Unknown Completed [facility] SARS-COV-2 COVID-19 PFIZER VACCINE Unknown Completed [facility] SARS-COV-2 COVID-19 PFIZER VACCINE Unknown Completed [facility] SARS-COV-2 COVID-19 PFIZER VACCINE Unknown Completed [facility] SARS-COV-2 COVID-19 PFIZER VACCINE Unknown Completed [facility] SARS-COV-2 COVID-19 PFIZER VACCINE Unknown Completed [facility] SARS-COV-2 COVID-19 PFIZER VACCINE Unknown Completed [facility] SARS-COV-2 COVID-19 PFIZER VACCINE Unknown Completed [facility] SARS-COV-2 COVID-19 PFIZER VACCINE Unknown Completed [facility] SARS-COV-2 COVID-19 PFIZER VACCINE Unknown Completed [facility] SARS-COV-2 COVID-19 PFIZER VACCINE Unknown Completed [facility] SARS-COV-2 COVID-19 PFIZER VACCINE Unknown Completed [facility] SARS-COV-2 COVID-19 PFIZER VACCINE Unknown Completed [facility] SARS-COV-2 COVID-19 PFIZER VACCINE Unknown Completed [facility] SARS-COV-2 COVID-19 PFIZER VACCINE Unknown Completed [facility] SARS-COV-2 COVID-19 PFIZER VACCINE Unknown Completed [facility] SARS-COV-2 COVID-19 PFIZER VACCINE Unknown Completed [facility] SARS-COV-2 COVID-19 PFIZER VACCINE Unknown Completed [facility] SARS-COV-2 COVID-19 PFIZER VACCINE Unknown Completed [facility] SARS-COV-2 COVID-19 PFIZER VACCINE Unknown Completed [facility] SARS-COV-2 COVID-19 PFIZER VACCINE Unknown Completed [facility] SARS-COV-2 COVID-19 PFIZER VACCINE Unknown Completed [facility] SARS-COV-2 COVID-19 PFIZER VACCINE Unknown Completed [facility] SARS-COV-2 COVID-19 PFIZER VACCINE Unknown Completed [facility] SARS-COV-2 COVID-19 PFIZER VACCINE Unknown Completed [facility] SARS-COV-2 COVID-19 PFIZER VACCINE Unknown Completed [facility] SARS-COV-2 COVID-19 PFIZER VACCINE Unknown Completed [facility] SARS-COV-2 COVID-19 PFIZER VACCINE Unknown Completed [facility] SARS-COV-2 COVID-19 PFIZER VACCINE Unknown Completed [facility] SARS-COV-2 COVID-19 PFIZER VACCINE Unknown Completed [facility] SARS-COV-2 COVID-19 PFIZER VACCINE Unknown Completed [facility] SARS-COV-2 COVID-19 PFIZER VACCINE Unknown Completed [facility] SARS-COV-2 COVID-19 PFIZER VACCINE Unknown Completed [facility] SARS-COV-2 COVID-19 PFIZER VACCINE Unknown Completed [facility] SARS-COV-2 COVID-19 PFIZER VACCINE Unknown Completed [facility] SARS-COV-2 COVID-19 PFIZER VACCINE Unknown Completed [facility] SARS-COV-2 COVID-19 PFIZER VACCINE Unknown Completed [facility] SARS-COV-2 COVID-19 PFIZER VACCINE Unknown Completed [facility] SARS-COV-2 COVID-19 PFIZER VACCINE Unknown Completed [facility] SARS-COV-2 COVID-19 PFIZER VACCINE Unknown Completed [facility] SARS-COV-2 COVID-19 PFIZER VACCINE Unknown Completed [facility] SARS-COV-2 COVID-19 PFIZER VACCINE Unknown Completed [facility] SARS-COV-2 COVID-19 PFIZER VACCINE Unknown Completed [facility] SARS-COV-2 COVID-19 PFIZER VACCINE Unknown Completed [facility] SARS-COV-2 COVID-19 PFIZER VACCINE Unknown Completed [facility] SARS-COV-2 COVID-19 PFIZER VACCINE Unknown Completed [facility] SARS-COV-2 COVID-19 PFIZER VACCINE Unknown Completed [facility] SARS-COV-2 COVID-19 PFIZER VACCINE Unknown Completed [facility] SARS-COV-2 COVID-19 PFIZER VACCINE Unknown Completed [facility] SARS-COV-2 COVID-19 PFIZER VACCINE Unknown Completed [facility] SARS-COV-2 COVID-19 PFIZER VACCINE Unknown Completed [facility] SARS-COV-2 COVID-19 PFIZER VACCINE Unknown Completed [facility] SARS-COV-2 COVID-19 PFIZER VACCINE Unknown Completed [facility] SARS-COV-2 COVID-19 PFIZER VACCINE Unknown Completed [facility] SARS-COV-2 COVID-19 PFIZER VACCINE Unknown Completed [facility] SARS-COV-2 COVID-19 PFIZER VACCINE Unknown Completed [facility] SARS-COV-2 COVID-19 PFIZER VACCINE Unknown Completed [facility] SARS-COV-2 COVID-19 PFIZER VACCINE Unknown Completed [facility] SARS-COV-2 COVID-19 PFIZER VACCINE Unknown Completed [facility] SARS-COV-2 COVID-19 PFIZER VACCINE Unknown Completed [facility] SARS-COV-2 COVID-19 PFIZER VACCINE Unknown Completed [facility] SARS-COV-2 COVID-19 PFIZER VACCINE Unknown Completed [facility] SARS-COV-2 COVID-19 PFIZER VACCINE Unknown Completed [facility] SARS-COV-2 COVID-19 PFIZER VACCINE Unknown Completed [facility] SARS-COV-2 COVID-19 PFIZER VACCINE Unknown Completed [facility] SARS-COV-2 COVID-19 PFIZER VACCINE Unknown Completed [facility] SARS-COV-2 COVID-19 PFIZER VACCINE Unknown Completed [facility] SARS-COV-2 COVID-19 PFIZER VACCINE Unknown Completed [facility] SARS-COV-2 COVID-19 PFIZER VACCINE Unknown Completed [facility] SARS-COV-2 COVID-19 PFIZER VACCINE Unknown Completed [facility] SARS-COV-2 COVID-19 PFIZER VACCINE Unknown Completed [facility] SARS-COV-2 COVID-19 PFIZER VACCINE Unknown Completed [facility] SARS-COV-2 COVID-19 PFIZER VACCINE Unknown Completed [facility] SARS-COV-2 COVID-19 PFIZER VACCINE Unknown Completed [facility] SARS-COV-2 COVID-19 PFIZER VACCINE Unknown Completed [facility] SARS-COV-2 COVID-19 PFIZER VACCINE Unknown Completed [facility] SARS-COV-2 COVID-19 PFIZER VACCINE Unknown Completed [facility] SARS-COV-2 COVID-19 PFIZER VACCINE Unknown Completed [facility] SARS-COV-2 COVID-19 PFIZER VACCINE Unknown Completed [facility] SARS-COV-2 COVID-19 PFIZER VACCINE Unknown Completed [facility] SARS-COV-2 COVID-19 PFIZER VACCINE Unknown Completed [facility] SARS-COV-2 COVID-19 PFIZER VACCINE Unknown Completed [facility] SARS-COV-2 COVID-19 PFIZER VACCINE Unknown Completed [facility] SARS-COV-2 COVID-19 PFIZER VACCINE Unknown Completed [facility] SARS-COV-2 COVID-19 PFIZER VACCINE Unknown Completed [facility] SARS-COV-2 COVID-19 PFIZER VACCINE Unknown Completed [facility] SARS-COV-2 COVID-19 PFIZER VACCINE Unknown Completed [facility] SARS-COV-2 COVID-19 PFIZER VACCINE Unknown Completed [facility] SARS-COV-2 COVID-19 PFIZER VACCINE Unknown Completed [facility] SARS-COV-2 COVID-19 PFIZER VACCINE Unknown Completed [facility] SARS-COV-2 COVID-19 PFIZER VACCINE Unknown Completed [facility] SARS-COV-2 COVID-19 PFIZER VACCINE Unknown Completed [facility] SARS-COV-2 COVID-19 PFIZER VACCINE Unknown Completed [facility] SARS-COV-2 COVID-19 PFIZER VACCINE Unknown Completed [facility] SARS-COV-2 COVID-19 PFIZER VACCINE Unknown Completed [facility] SARS-COV-2 COVID-19 PFIZER VACCINE Unknown Completed [facility] SARS-COV-2 COVID-19 PFIZER VACCINE Unknown Completed [facility] SARS-COV-2 COVID-19 PFIZER VACCINE Unknown Completed [facility] SARS-COV-2 COVID-19 PFIZER VACCINE Unknown Completed [facility] SARS-COV-2 COVID-19 PFIZER VACCINE Unknown Completed [facility] SARS-COV-2 COVID-19 PFIZER VACCINE Unknown Completed [facility] SARS-COV-2 COVID-19 PFIZER VACCINE Unknown Completed [facility] SARS-COV-2 COVID-19 PFIZER VACCINE Unknown Completed [facility] SARS-COV-2 COVID-19 PFIZER VACCINE Unknown Completed [facility] SARS-COV-2 COVID-19 PFIZER VACCINE Unknown Completed [facility] SARS-COV-2 COVID-19 PFIZER VACCINE Unknown Completed [facility] SARS-COV-2 COVID-19 PFIZER VACCINE Unknown Completed [facility] SARS-COV-2 COVID-19 PFIZER VACCINE Unknown Completed [facility] SARS-COV-2 COVID-19 PFIZER VACCINE Unknown Completed [facility] SARS-COV-2 COVID-19 PFIZER VACCINE Unknown Completed [facility] Vital Signs Vital Name Observation Time Observation Value Comments Ajith spaulding Systolic blood pressure 2023-11-01 13:26:00 126 mm[Hg] [facility] Diastolic blood pressure 2023-11-01 13:26:00 84 mm[Hg] [facility] Heart rate 2023-11-01 13:26:00 74 /min [facility] Respiratory rate 2023-11-01 13:26:00 18 /min [facility] Body height 2023-11-01 13:26:00 147.3 cm [facility] Body weight 2023-11-01 13:26:00 119.84 kg [facility] BMI 2023-11-01 13:26:00 55.22 kg/m2 [facility] Oxygen saturation in Arterial blood by Pulse oximetry 2023-11-01 13:26:00 98 /min [facility] Systolic blood pressure 2023-10-17 07:43:00 96 mm[Hg] [facility] Diastolic blood pressure 2023-10-17 07:43:00 53 mm[Hg] [facility] Heart rate 2023-10-17 07:43:00 66 /min [facility] Body temperature 2023-10-17 07:43:00 36.5 Cele [facility] Oxygen saturation in Arterial blood by Pulse oximetry 2023-10-17 07:43:00 97 /min [facility] Respiratory rate 2023-10-17 05:50:00 16 /min [facility] Body height 2023-10-17 05:50:00 147.3 cm [facility] Body weight 2023-10-17 05:50:00 120.657 kg [facility] BMI 2023-10-17 05:50:00 55.59 kg/m2 [facility] Systolic blood pressure 2023-09-18 20:56:00 110 mm[Hg] [facility] Diastolic blood pressure 2023-09-18 20:56:00 76 mm[Hg] [facility] Heart rate 2023-09-18 20:56:00 76 /min [facility] Body height 2023-09-18 20:56:00 147.3 cm [facility] Body weight 2023-09-18 20:56:00 121.882 kg [facility] BMI 2023-09-18 20:56:00 56.16 kg/m2 [facility] Oxygen saturation in Arterial blood by Pulse oximetry 2023-09-18 20:56:00 97 /min [facility] Systolic blood pressure 2023-08-28 17:17:00 132 mm[Hg] [facility] Diastolic blood pressure 2023-08-28 17:17:00 89 mm[Hg] [facility] Heart rate 2023-08-28 17:17:00 71 /min [facility] Oxygen saturation in Arterial blood by Pulse oximetry 2023-08-28 17:17:00 100 /min [facility] Body temperature 2023-08-28 17:16:00 36.28 Cele [facility] Respiratory rate 2023-08-28 17:16:00 18 /min [facility] Body height 2023-08-28 17:16:00 147.3 cm [facility] Body weight 2023-08-28 17:16:00 123.242 kg [facility] BMI 2023-08-28 17:16:00 56.79 kg/m2 [facility] Systolic blood pressure 2023-05-24 13:14:00 135 mm[Hg] [facility] Diastolic blood pressure 2023-05-24 13:14:00 80 mm[Hg] [facility] Heart rate 2023-05-24 13:14:00 81 /min [facility] Respiratory rate 2023-05-24 13:14:00 18 /min [facility] Body height 2023-05-24 13:14:00 147.3 cm [facility] Body weight 2023-05-24 13:14:00 [facility].871 [facility] 2023-05-24 13:14:00 58.46 kg/m2 [facility] Oxygen saturation in Arterial blood by Pulse oximetry 2023-05-24 13:14:00 99 /min [facility] Heart rate 2023-04-21 04:53:00 67 /min [facility] Body temperature 2023-04-21 04:53:00 36.61 Cele [facility] Oxygen saturation in Arterial blood by Pulse oximetry 2023-04-21 04:53:00 99 /min [facility] Systolic blood pressure 2023-04-21 04:00:00 104 mm[Hg] [facility] Diastolic blood pressure 2023-04-21 04:00:00 57 mm[Hg] [facility] Respiratory rate 2023-04-21 00:26:00 20 /min [facility] Body height 2023-04-21 00:26:00 144.8 cm [facility] Body weight 2023-04-21 00:26:00 126.1 kg [facility] BMI 2023-04-21 00:26:00 60.16 kg/m2 [facility] Systolic blood pressure 2023-03-19 19:10:00 137 mm[Hg] [facility] Diastolic blood pressure 2023-03-19 19:10:00 88 mm[Hg] [facility] Heart rate 2023-03-19 19:10:00 93 /min [facility] 2023-03-19 19:10:00 18 /min [facility] Body height 2023-03-19 19:10:00 147.3 cm [facility] Body weight 2023-03-19 19:10:00 127.914 kg [facility] BMI 2023-03-19 19:10:00 58.94 kg/m2 [facility] Oxygen saturation in Arterial blood by Pulse oximetry 2023-03-19 19:10:00 98 /min [facility] Systolic blood pressure 2023-02-16 21:12:00 157 mm[Hg] [facility] Diastolic blood pressure 2023-02-16 21:12:00 95 mm[Hg] [facility] Heart rate 2023-02-16 21:12:00 95 /min [facility] Body height 2023-02-16 21:12:00 147.3 cm [facility] Body weight 2023-02-16 21:12:00 132.224 kg [facility] BMI 2023-02-16 21:12:00 60.92 kg/m2 [facility] Oxygen saturation in Arterial blood by Pulse oximetry 2023-02-16 21:12:00 98 /min [facility] Heart rate 2021-07-27 21:30:00 62 /min [facility] Respiratory rate 2021-07-27 21:30:00 22 /min [facility] Oxygen saturation in Arterial blood by Pulse oximetry 2021-07-27 21:30:00 95 /min [facility] Systolic blood pressure 2021-07-27 21:25:00 137 mm[Hg] [facility] Diastolic blood pressure 2021-07-27 21:25:00 77 mm[Hg] [facility] Body temperature 2021-07-27 18:35:24 36.78 Cele [facility] Body height 2021-07-27 18:02:00 147.3 cm [facility] Body weight 2021-07-27 18:02:00 124.739 kg [facility] BMI 2021-07-27 18:02:00 57.48 kg/m2 [facility] Systolic blood pressure 2021-06-25 05:00:00 134 mm[Hg] [facility] Diastolic blood pressure 2021-06-25 05:00:00 60 mm[Hg] [facility] Heart rate 2021-06-25 05:00:00 78 /min [facility] Respiratory rate 2021-06-25 05:00:00 27 /min [facility] Oxygen saturation in Arterial blood by Pulse oximetry 2021-06-25 05:00:00 97 /min [facility] Body temperature 2021-06-25 04:16:00 36.94 Cele [facility] Body height 2021-06-25 04:16:00 147.3 cm [facility] Body weight 2021-06-25 04:16:00 127.007 kg [facility] BMI 2021-06-25 04:16:00 58.52 kg/m2 [facility] Systolic blood pressure 2021-02-17 19:29:00 124 mm[Hg] [facility] Diastolic blood pressure 2021-02-17 19:29:00 88 mm[Hg] [facility] Heart rate 2021-02-17 19:29:00 89 /min [facility] Respiratory rate 2021-02-17 19:29:00 18 /min [facility] Body weight 2021-02-17 19:29:00 126.281 kg [facility] BMI 2021-02-17 19:29:00 56.23 kg/m2 [facility] Systolic blood pressure 2021-01-05 19:16:00 132 mm[Hg] [facility] Diastolic blood pressure 2021-01-05 19:16:00 88 mm[Hg] [facility] Heart rate 2021-01-05 19:16:00 89 /min [facility] Body temperature 2021-01-05 19:16:00 37.28 Cele [facility] Respiratory rate 2021-01-05 19:16:00 18 /min [facility] Body height 2021-01-05 19:16:00 149.9 cm [facility] Body weight 2021-01-05 19:16:00 125.51 kg [facility] BMI 2021-01-05 19:16:00 55.89 kg/m2 [facility] Systolic blood pressure 2020-12-07 19:42:00 124 mm[Hg] [facility] Diastolic blood pressure 2020-12-07 19:42:00 86 mm[Hg] [facility] Heart rate 2020-12-07 19:42:00 89 /min [facility] Respiratory rate 2020-12-07 19:42:00 19 /min [facility] Body height 2020-12-07 19:42:00 152.4 cm [facility] Body weight 2020-12-07 19:42:00 127.551 kg [facility] BMI 2020-12-07 19:42:00 54.92 kg/m2 [facility] Systolic blood pressure 2023-11-01 13:26:00 126 mm[Hg] [facility] Diastolic blood pressure 2023-11-01 13:26:00 84 mm[Hg] [facility] Heart rate 2023-11-01 13:26:00 74 /min [facility] Respiratory rate 2023-11-01 13:26:00 18 /min [facility] Body height 2023-11-01 13:26:00 147.3 cm [facility] Body weight 2023-11-01 13:26:00 119.84 kg [facility] BMI 2023-11-01 13:26:00 55.22 kg/m2 [facility] Oxygen saturation in Arterial blood by Pulse oximetry 2023-11-01 13:26:00 98 /min [facility] Systolic blood pressure 2023-10-31 13:11:00 115 mm[Hg] [facility] Diastolic blood pressure 2023-10-31 13:11:00 78 mm[Hg] [facility] Heart rate 2023-10-31 13:11:00 86 /min [facility] Respiratory rate 2023-10-31 13:11:00 18 /min [facility] Body height 2023-10-31 13:11:00 147.3 cm [facility] Body weight 2023-10-31 13:11:00 119.296 kg [facility] BMI 2023-10-31 13:11:00 54.97 kg/m2 [facility] Systolic blood pressure 2023-10-17 07:43:00 96 mm[Hg] [facility] Diastolic blood pressure 2023-10-17 07:43:00 53 mm[Hg] [facility] Heart rate 2023-10-17 07:43:00 66 /min [facility] Body temperature 2023-10-17 07:43:00 36.5 Cele [facility] Oxygen saturation in Arterial blood by Pulse oximetry 2023-10-17 07:43:00 97 /min [facility] Respiratory rate 2023-10-17 05:50:00 16 /min [facility] Body height 2023-10-17 05:50:00 147.3 cm [facility] Body weight 2023-10-17 05:50:00 120.657 kg [facility] BMI 2023-10-17 05:50:00 55.59 kg/m2 [facility] Systolic blood pressure 2023-10-15 14:41:00 136 mm[Hg] [facility] Diastolic blood pressure 2023-10-15 14:41:00 90 mm[Hg] [facility] Heart rate 2023-10-15 14:41:00 89 /min [facility] Respiratory rate 2023-10-15 14:41:00 18 /min [facility] Body height 2023-10-15 14:41:00 147.3 cm [facility] Body weight 2023-10-15 14:41:00 119.069 kg [facility] BMI 2023-10-15 14:41:00 54.86 kg/m2 [facility] Systolic blood pressure 2023-09-18 20:56:00 110 mm[Hg] [facility] Diastolic blood pressure 2023-09-18 20:56:00 76 mm[Hg] [facility] Heart rate 2023-09-18 20:56:00 76 /min [facility] Body height 2023-09-18 20:56:00 147.3 cm [facility] Body weight 2023-09-18 20:56:00 121.882 kg [facility] BMI 2023-09-18 20:56:00 56.16 kg/m2 [facility] Oxygen saturation in Arterial blood by Pulse oximetry 2023-09-18 20:56:00 97 /min [facility] Systolic blood pressure 2023-09-17 14:29:00 105 mm[Hg] [facility] Diastolic blood pressure 2023-09-17 14:29:00 74 mm[Hg] [facility] Heart rate 2023-09-17 14:29:00 81 /min [facility] Respiratory rate 2023-09-17 14:27:00 18 /min [facility] Body height 2023-09-17 14:27:00 147.3 cm [facility] Body weight 2023-09-17 14:27:00 119.614 kg [facility] BMI 2023-09-17 14:27:00 55.11 kg/m2 [facility] Systolic blood pressure 2023-08-28 17:17:00 132 mm[Hg] [facility] Diastolic blood pressure 2023-08-28 17:17:00 89 mm[Hg] [facility] Heart rate 2023-08-28 17:17:00 71 /min [facility] Oxygen saturation in Arterial blood by Pulse oximetry 2023-08-28 17:17:00 100 /min [facility] Body temperature 2023-08-28 17:16:00 36.28 Cele [facility] Respiratory rate 2023-08-28 17:16:00 18 /min [facility] Body height 2023-08-28 17:16:00 147.3 cm [facility] Body weight 2023-08-28 17:16:00 123.242 kg [facility] BMI 2023-08-28 17:16:00 56.79 kg/m2 [facility] Systolic blood pressure 2023-07-23 14:45:00 116 mm[Hg] [facility] Diastolic blood pressure 2023-07-23 14:45:00 81 mm[Hg] [facility] Heart rate 2023-07-23 14:45:00 80 /min [facility] Respiratory rate 2023-07-23 14:45:00 18 /min [facility] Body height 2023-07-23 14:45:00 147.3 cm [facility] Body weight 2023-07-23 14:45:00 125.7 kg [facility] BMI 2023-07-23 14:45:00 57.92 kg[facility]2 [facility] Sy[facility] 2023-07-18 14:01:00 105 mm[Hg] [place] [facility] Diastolic blood pressure 2023-07-18 14:01:00 61 mm[Hg] [place] [facility] Heart rate 2023-07-18 14:01:00 80 /min [facility] 2023-07-18 14:01:00 18 /min [facility] Body height 2023-07-18 14:01:00 147.3 cm [facility] Body weight 2023-07-18 14:01:00 125.737 [facility] BMI 2023-07-18 14:01:00 57.93 kg/m2 [facility] Systolic blood pressure 2023-07-04 14:56:00 132 mm[Hg] [place] [facility] Diastolic blood pressure 2023-07-04 14:56:00 90 mm[Hg] [facility] Heart rate 2023-07-04 14:56:00 90 /min [facility] Res[facility] 2023-07-04 14:56:00 18 /min [facility] Body height 2023-07-04 14:56:00 147.3 cm [facility] Body weight 2023-07-04 14:56:00 124.286 [facility] BMI 2023-07-04 14:56:00 57.27 kg/m2 [facility] Diastolic blood pressure 2023-06-20 14:47:00 57 mm[Hg] [place] [facility] Heart rate 2023-06-20 14:47:00 81 /min [facility] Respiratory rate 2023-06-20 14:47:00 18 /min [facility] Body height 2023-06-20 14:47:00 147.3 cm [facility] Body weight 2023-06-20 14:47:00 125.646 kg [facility] BMI 2023-06-20 14:47:00 57.89 kg/m2 [facility] Systolic blood pressure 2023-06-20 14:47:00 109 mm[Hg] [facility] Systolic blood pressure 2023-06-06 13:38:00 130 mm[Hg] [facility] Diastolic blood pressure 2023-06-06 13:38:00 87 mm[Hg] [facility] Heart rate 2023-06-06 13:38:00 83 /min [facility] Respiratory rate 2023-06-06 13:38:00 18 /min [facility] Body height 2023-06-06 13:38:00 147.3 cm [facility] Body weight 2023-06-06 13:38:00 126.009 kg [facility] BMI 2023-06-06 13:38:00 58.06 kg/m2 [facility] Oxygen saturation in Arterial blood by Pulse oximetry 2023-05-24 13:14:00 99 /min [facility] Systolic blood pressure 2023-05-09 13:20:00 128 mm[Hg] [facility] Diastolic blood pressure 2023-05-09 13:20:00 85 mm[Hg] [facility] Heart rate 2023-05-09 13:20:00 74 /min [facility] Respiratory rate 2023-05-09 13:20:00 18 /min [facility] Body height 2023-05-09 13:20:00 144.8 cm [facility] Body weight 2023-05-09 13:20:00 124.603 kg [facility] BMI 2023-05-09 13:20:00 59.44 kg/m2 [facility] Systolic blood pressure 2023-04-25 13:25:00 113 mm[Hg] [facility] Diastolic blood pressure 2023-04-25 13:25:00 85 mm[Hg] [facility] Heart rate 2023-04-25 13:25:00 71 /min [facility] Res[facility] 2023-04-25 13:25:00 18 /min [facility] Body height 2023-04-25 13:25:00 144.8 cm [facility] Body weight 2023-04-25 13:25:00 126.463 kg [facility] BMI 2023-04-25 13:25:00 60.33 kg/m2 [facility] Body temperature 2023-04-21 04:53:00 36.61 Cele [facility] Oxygen saturation in Arterial blood by Pulse oximetry 2023-04-21 04:53:00 99 /min [facility] Systolic blood pressure 2023-04-04 14:18:00 116 mm[Hg] [facility] Diastolic blood pressure 2023-04-04 14:18:00 73 mm[Hg] [facility] Heart rate 2023-04-04 14:18:00 71 /min [facility] Respiratory rate 2023-04-04 14:09:00 18 /min [facility] Body height 2023-04-04 14:09:00 147.3 cm [facility] Body weight 2023-04-04 14:09:00 127.053 kg [facility] BMI 2023-04-04 14:09:00 58.54 kg/m2 [facility] Systolic blood pressure 2023-03-21 14:39:00 123 mm[Hg] [facility] Diastolic blood pressure 2023-03-21 14:39:00 81 mm[Hg] [facility] Heart rate 2023-03-21 14:39:00 76 /min [facility] Respiratory rate 2023-03-21 14:39:00 18 /min [facility] Body height 2023-03-21 14:39:00 147.3 cm [facility] Body weight 2023-03-21 14:39:00 127.9 kg [facility] BMI 2023-03-21 14:39:00 58.93 kg/m2 [facility] Oxygen saturation in Arterial blood by Pulse oximetry 2023-03-19 19:10:00 98 /min [facility] Systolic blood pressure 2023-02-22 13:31:00 125 mm[Hg] [facility] Diastolic blood pressure 2023-02-22 13:31:00 82 mm[Hg] [facility] Heart rate 2023-02-22 13:31:00 79 /min [facility] Respiratory rate 2023-02-22 13:31:00 18 /min [facility] Body height 2023-02-22 13:31:00 147.3 cm [facility] Body weight 2023-02-22 13:31:00 132.2 kg [facility] BMI 2023-02-22 13:31:00 60.91 kg/m2 [facility] Oxygen saturation in Arterial blood by Pulse oximetry 2023-02-16 21:12:00 98 /min [facility] BP Systolic 2022-08-30 11:27:00 120 [...] /min Body temperature 2021-07-27 18:35:24 36.78 Cele [facility] Procedures Procedure Date / Time Performed Performing Clinician Source REFERRAL- REQUEST/RESPONSE 2023-11-07 16:25:56 Doctor Unassigned, [place] [facility] XR SPINE THORACIC 2 2023-10-25 20:12:25 Requisition , Paper [facility] XR SPINE THORACIC 2 VW 2023-10-25 20:12:25 Requisition , Paper [facility] XR LUMBAR SPINE 4 2023-10-25 20:11:02 Requisition, Paper [facility] XR LUMBAR SPINE 4 2023-10-25 20:11:02 Requisition, Paper [facility] POCT TEST 2023-10-17 06:14:00 Bonnie Rocha [facility] POCT TEST 2023-10-17 06:14:00 Bonnie Rocha [facility] NOTICE OF PRIVACY PRACTICES 2023-10-17 05:41:39 Doctor Unassigned, [place] [facility] NOTICE OF PRIVACY PRACTICES 2023-10-17 05:41:39 Doctor Unassigned, [place] [facility] CONSENT/REFUSAL FOR DIAGNOSIS AND TREATMENT 2023-10-17 05:40:01 Doctor Unassigned, [place] [facility] CONSENT/REFUSAL FOR DIAGNOSIS AND TREATMENT 2023-10-17 05:40:01 Doctor Unassigned, [place] [facility] EMERGENCY SERVICES AGREEMENTS AND AUTHORIZATIONS 2023-10-16 06:01:00 Doctor Unassigned, [place] [facility] SLEEP STUDY DATA REPORT 2023-09-06 06:01:00 Doct or Unassigned, [place] [facility] SLEEP STUDY DATA REPORT 2023-09-06 06:01:00 Doct or Unassigned, [place] [facility] SLEEP LAB RESULTS 2023-09-06 06:01:00 Elyl Blackburn [facility] CONSENT TO TREATMENT WITH PSYCHOACTIVE MEDICATION 2023-07-23 06:01:00 Doctor Unassigned, [place] [facility] CONSENT TO TREATMENT WITH PSYCHOACTIVE MEDICATION 2023-07-23 06:01:00 Doctor Unassigned, [place] [facility] ASSIGNMENT OF BENEFITS 2023-04-21 01:50:01 Docto r Unassigned, [place] [facility] ASSIGNMENT OF BENEFITS 2023-04-21 01:50:01 Docto r Unassigned, [place] [facility] CONSENT/REFUSAL FOR DIAGNOSIS AND TREATMENT 2023-04-21 00:06:49 Doctor Unassigned, [place] [facility] CONSENT/REFUSAL FOR DIAGNOSIS AND TREATMENT 2023-04-21 00:06:49 Doctor Unassigned, [place] [facility] EMERGENCY SERVICES AGREEMENTS AND AUTHORIZATIONS 2023-04-20 05:01:00 Doctor Unassigned, [place] [facility] BI ULTRASOUND BREAST LIMITED BILATERAL 2023-04-13 15:56:28 Requisition, Paper [facility] BI ULTRASOUND BREAST LIMITED BILATERAL 2023-04-13 15:56:28 Requisition, Paper [facility] BI DIAGNOSTIC TOMOSYNTHESIS BILATERAL 2023-04-13 15:07:30 Requisition, Paper [facility] BI DIAGNOSTIC TOMOSYNTHESIS BILATERAL 2023-04-13 15:07:30 Requisition, Paper [facility] US UPPER ARM LEFT 2023-04-13 14:19:39 Requisition, Pap er [facility] US UPPER ARM LEFT 2023-04-13 14:19:39 Requisition, Pap er [facility] EXTERNAL PROVIDER RECORDS 2023-03-21 05:01:00 Do ctor Unassigned, [place] [facility] CT HEAD WO CONTRAST 2023-02-26 19:38:43 Afia Beaulieu [facility] CT HEAD WO CONTRAST 2023-02-26 19:38:43 Afia Beaulieu [facility] ASSIGNMENT OF BENEFITS 2023-02-26 19:05:35 Docto r Unassigned, [place] [facility] CONSENT/REFUSAL FOR DIAGNOSIS AND TREATMENT 2023-02-26 19:04:46 Doctor Unassigned, [place] [facility] CONSENT/REFUSAL FOR DIAGNOSIS AND TREATMENT 2023-02-26 19:04:46 Doctor Unassigned, [place] [facility] PATIENT QUESTIONNAIRE 2023-02-26 05:01:00 Doctor Unassigned, [place] [facility] PSYCHIATRY CLINIC PATIENT INFORMATION 2023-02-22 05:01:00 Doctor Unassigned, [place] [facility] PATIENT FINANCIAL POLICY 2023-02-16 21:04:53 Doctor Unassigned, [place] [facility] ASSIGNMENT OF BENEFITS 2023-02-16 21:04:02 Docto r Unassigned, [place] [facility] CONSENT/REFUSAL FOR DIAGNOSIS AND TREATMENT 2023-02-16 21:03:03 Doctor Unassigned, [place] [facility] CONSENT/REFUSAL FOR DIAGNOSIS AND TREATMENT 2023-02-16 21:03:03 Doctor Unassigned, [place] [facility] REFERRAL- REQUEST/RESPONSE 2023-01-23 05:01:00 Doctor Unassigned, [place] [facility] REFERRAL- REQUEST/RESPONSE 2023-01-23 05:01:00 Doctor Unassigned, [place] [facility] REFERRAL- REQUEST/RESPONSE 2023-01-03 05:01:00 Doctor Unassigned, [place] [facility] REFERRAL- REQUEST/RESPONSE 2023-01-03 05:01:00 Doctor Unassigned, [place] [facility] TROPONIN I 2021-07-27 20:28:00 Yamil Messina [facility] D-DIMER 2021-07-27 20:27:00 [facility] XR CHEST 1 VW 2021-07-27 19:38:35 Yamil Messina [facility] POCT TEST 2021-07-27 18:28:00 Yamil Messina [facility] URINALYSIS 2021-07-27 18:26:00 Yamil Messina [facility] MAGNESIUM 2021-07-27 18:06:00 Yamil Messina [facility] TROPONIN I 2021-07-27 18:06:00 Yamil Messina [facility] COMP. METABOLIC PANEL (13547) 2021-07-27 18:06:00 Yamil Messina [facility] CBC WITH DIFF 2021-07-27 18:06:00 Yamil Messina [facility] CT HEAD WO CONTRAST 2021-06-25 05:12:41 Yoon Page [facility] NOTICE OF PRIVACY PRACTICES 2021-06-25 04:02:52 Doctor Unassigned, [place] [facility] CONSENT/REFUSAL FOR DIAGNOSIS AND TREATMENT 2021-06-25 04:01:22 Doctor Unassigned, [place] [facility] DISCLOSURE AND CONSENT, MEDICAL AND SURGICAL PROCEDURES 2021-01-06 05:01:00 Doctor Unassigned, [place] [facility] POCT TEST 2021-01-05 19:26:00 Magy Villanueva [facility] POCT TEST 2020-12-07 20:47:00 Fern Moctezuma [facility] ASSIGNMENT OF BENEFITS 2020-12-07 19:26:29 Elaine r Unassigned, [place] [facility] Plan of Care Planned Activity Planned Date Details Comments Source Goal Plan of Care Note [code = 80798-8] Goal Plan of Care Note [code = 55642-4] Goal Plan of Care Note [code = 24357-4] Goal Plan of Care Note [code = 53321-4] Goal Plan of Care Note [code = 13232-0] Goal Plan of Care Note [code = 25529-1] Goal Plan of Care Note [code = 60222-2] Goal Plan of Care Note [code = 60479-5] Goal Plan of Care Note [code = 04751-1] Goal Plan of Care Note [code = 02961-4] Goal Plan of Care Note [code = 00358-4] Goal Plan of Care Note [code = 60552-2] Goal Plan of Care Note [code = 93884-4] Goal Plan of Care Note [code = 58223-2] Goal Plan of Care Note [code = 77037-7] Goal Plan of Care Note [code = 27429-6] Goal Plan of Care Note [code = 66595-7] Goal Plan of Care Note [code = 86703-8] Goal Plan of Care Note [code = 01033-7] Goal Plan of Care Note [code = 14196-2] Goal Plan of Care Note [code = 98487-6] Goal Plan of Care Note [code = 27184-5] Goal Plan of Care Note [code = 48601-0] Goal Plan of Care Note [code = 17183-4] Goal Plan of Care Note [code = 05215-8] Goal Plan of Care Note [code = 62776-2] Goal Plan of Care Note [code = 49979-4] Goal Plan of Care Note [code = 46581-3] Goal Plan of Care Note [code = 49815-6] Goal Plan of Care Note [code = 49516-0] Goal Plan of Care Note [code = 37678-6] Goal Plan of Care Note [code = 35487-6] Goal Plan of Care Note [code = 19388-2] Goal Plan of Care Note [code = 13594-0] Goal Plan of Care Note [code = 91339-8] Goal Plan of Care Note [code = 45293-1] Goal Plan of Care Note [code = 22207-5] Goal Plan of Care Note [code = 83776-0] Goal Plan of Care Note [code = 54449-2] Goal Plan of Care Note [code = 64283-9] Goal Plan of Care Note [code = 60762-3] Goal Plan of Care Note [code = 22773-0] Goal Plan of Care Note [code = 72303-3] Goal Plan of Care Note [code = 58374-7] Goal Plan of Care Note [code = 06563-4] Goal Plan of Care Note [code = 10925-2] Goal Plan of Care Note [code = 29025-2] Goal Plan of Care Note [code = 56688-5] Goal Plan of Care Note [code = 76502-1] Goal Plan of Care Note [code = 66616-7] Goal Plan of Care Note [code = 97892-6] Goal Plan of Care Note [code = 66148-2] Goal Plan of Care Note [code = 61335-2] Goal Plan of Care Note [code = 78814-2] Goal Plan of Care Note [code = 84790-9] Goal Plan of Care Note [code = 36895-0] Goal Plan of Care Note [code = 74933-1] Goal Plan of Care Note [code = 17233-7] Goal Plan of Care Note [code = 68544-3] Goal Plan of Care Note [code = 64411-3] Goal Plan of Care Note [code = 59961-6] Goal Plan of Care Note [code = 51952-9] Goal Plan of Care Note [code = 15109-2] Goal Plan of Care Note [code = 04778-4] Goal Plan of Care Note [code = 23735-6] Goal Plan of Care Note [code = 09287-1] Goal Plan of Care Note [code = 93729-2] Goal Plan of Care Note [code = 34220-9] Goal Plan of Care Note [code = 84004-6] Goal Plan of Care Note [code = 03017-0] Goal Plan of Care Note [code = 43925-0] Goal Plan of Care Note [code = 07687-9] Goal Plan of Care Note [code = 25478-6] Goal Plan of Care Note [code = 51322-9] Goal Plan of Care Note [code = 69560-9] Goal Plan of Care Note [code = 43531-1] Goal Plan of Care Note [code = 49982-2] Goal Plan of Care Note [code = 64145-2] Goal Plan of Care Note [code = 07821-3] Goal Plan of Care Note [code = 67835-4] Goal Plan of Care Note [code = 31598-5] Goal Plan of Care Note [code = 59257-1] Goal Plan of Care Note [code = 92219-1] Goal Plan of Care Note [code = 03660-5] Goal Plan of Care Note [code = 89562-9] Goal Plan of Care Note [code = 63012-1] Goal Plan of Care Note [code = 70117-0] Goal Plan of Care Note [code = 89959-9] Goal Plan of Care Note [code = 18226-6] Goal Plan of Care Note [code = 65759-3] Goal Plan of Care Note [code = 43576-7] Goal Plan of Care Note [code = 23294-0] Goal Plan of Care Note [code = 43427-9] Goal Plan of Care Note [code = 18685-1] Goal Plan of Care Note [code = 45204-0] Goal Plan of Care Note [code = 51239-3] Goal Plan of Care Note [code = 44545-1] Goal Plan of Care Note [code = 19367-8] Goal Plan of Care Note [code = 70199-1] Goal Plan of Care Note [code = 26844-0] Goal Plan of Care Note [code = 08421-5] Goal Plan of Care Note [code = 15312-7] Goal Plan of Care Note [code = 24941-5] Goal Plan of Care Note [code = 80431-0] Goal Plan of Care Note [code = 80460-2] Goal Plan of Care Note [code = 55868-8] Goal Plan of Care Note [code = 22972-3] Goal Plan of Care Note [code = 24692-6] Goal Plan of Care Note [code = 62744-8] Goal Plan of Care Note [code = 29812-2] Goal Plan of Care Note [code = 35467-3] Goal Plan of Care Note [code = 03552-3] Goal Plan of Care Note [code = 14488-3] Goal Plan of Care Note [code = 61044-7] Goal Plan of Care Note [code = 87881-6] Goal Plan of Care Note [code = 13009-1] Goal Plan of Care Note [code = 85445-7] Goal Plan of Care Note [code = 74456-2] Goal Plan of Care Note [code = 83786-9] Goal Plan of Care Note [code = 54668-8] Goal Plan of Care Note [code = 41811-4] Goal Plan of Care Note [code = 00255-5] Goal Plan of Care Note [code = 15483-1] Goal Plan of Care Note [code = 83115-6] Goal Plan of Care Note [code = 23078-1] Goal Plan of Care Note [code = 68150-4] Goal Plan of Care Note [code = 04707-2] Goal Plan of Care Note [code = 57605-9] Goal Plan of Care Note [code = 93069-0] Goal Plan of Care Note [code = 61317-7] Goal Plan of Care Note [code = 84615-0] Goal Plan of Care Note [code = 41827-9] Goal Plan of Care Note [code = 73436-7] Goal Plan of Care Note [code = 68271-5] Goal Plan of Care Note [code = 12939-2] Goal Plan of Care Note [code = 93050-3] Goal Plan of Care Note [code = 44371-5] Goal Plan of Care Note [code = 32888-4] Goal Plan of Care Note [code = 15457-8] Goal Plan of Care Note [code = 35051-2] Goal Plan of Care Note [code = 11148-7] Goal Plan of Care Note [code = 18655-8] Goal Plan of Care Note [code = 87598-1] Goal Plan of Care Note [code = 35949-4] Goal Plan of Care Note [code = 76036-4] Goal Plan of Care Note [code = 57300-8] Goal Plan of Care Note [code = 88115-6] Goal Plan of Care Note [code = 26840-1] Goal Plan of Care Note [code = 11592-6] Goal Plan of Care Note [code = 74276-1] Goal Plan of Care Note [code = 94540-9] Goal Plan of Care Note [code = 52284-6] Goal Plan of Care Note [code = 74262-5] Goal Plan of Care Note [code = 15322-6] Goal Plan of Care Note [code = 11752-2] Goal Plan of Care Note [code = 22132-3] Goal Plan of Care Note [code = 94989-8] Encounters Start Date/Time End Date/Time Encounter Type Admission Type Attending [facility] Department Encounter ID Source 2024-09-18 11:00:00 2024-09-18 11:00:00 Outpatient R AFIA BEAULIEU [facility] [id number] [facility] 2024-01-02 09:30:00 2024-01-02 09:30:00 Outpatient R [facility] [id number] [facility] 2023-12-19 09:30:00 2023-12-19 09:30:00 Outpatient R [facility] [id number] [facility] 2023-12-05 08:45:00 2023-12-05 08:45:00 Outpatient R [facility] [id number] [facility] 2023-11-23 18:48:41 2023-11-23 18:48:41 Outpatient [facility] [id number] Georgi Alex Rhett 2023-11-22 18:32:19 2023-11-22 18:32:19 Outpatient SFA [facility] [id number] Georgi Delaney 2023-11-21 11:42:56 2023-11-21 11:42:56 Outpatient SFA [facility] [id number] Georgi Delaney 2023-11-19 14:35:59 2023-11-19 14:35:[address] [facility] [id number] Georgi Delaney 2023-11-15 18:25:25 2023-11-15 18:25:[address] [facility] [id number] Georgi Delaney 2023-11-14 11:21:10 2023-11-14 11:21:[address] [facility] [id number] Georgi Delaney 2023-11-12 08:45:00 2023-11-12 09:29:31 Outpatient R KATHRYNATILIO RUDOLPH [facility] [id number] [facility] 2023-11-12 00:00:00 2023-11-12 00:00:00 Travel 1.2.840.1 88105.1.1 3.104.2.7 .3.236130 .8 1.2.840.114 350.1.13.10 4.2.7.3.698 084.8 [id number] [facility] 2023-11-08 18:20:12 2023-11-08 18:20:[address] [facility] [id number] Georgi Delaney 2023-11-07 12:59:12 2023-11-07 12:59:[address] [facility] [id number] Georgi Delaney 2023-11-07 00:00:00 2023-11-07 00:00:00 Orders Only Doctor Unassigned, [place] 1.2.840.1 21299.1.1 3.104.2.7 .3.541838 .8 [id number] [facility] 2023-11-06 10:18:34 2023-11-06 10:18:[address] [facility] [id number] Georgi Delaney 2023-11-06 00:00:00 2023-11-06 00:00:00 Patient Secure Msg Doctor Unassigned, [place] 1.2.840.1 70263.1.1 3.104.2.7 .3.855790 .8 [id number] [facility] 2023-11-01 18:46:12 2023-11-01 18:46:12 Outpatient [facility] [id number] Georgi Delaney 2023-11-01 08:30:00 2023-11-01 09:11:45 Outpatient R BRITTNEE AFIA [facility] [id number] [facility] 2023-11-01 08:30:00 2023-11-01 09:11:45 Office Visit Afia Beaulieu 1.2.840.1 13386.1.1 3.104.2.7 .3.591189 .8 [id number] [facility] 2023-10-31 12:52:35 2023-10-31 12:52:35 Outpatient [facility] [id number] Georgi Delaney 2023-10-31 08:00:00 2023-10-31 09:01:39 Outpatient R OBI SHARIF [facility] [id number] [facility] 2023-10-31 00:00:00 2023-10-31 00:00:00 Travel 1.2.840.1 39006.1.1 3.104.2.7 .3.383422 .8 1.2.840.114 350.1.13.10 4.2.7.3.698 084.8 [id number] [facility] 2023-10-27 00:00:00 2023-10-27 00:00:00 Patient Secure Msg Doctor Unassigned, [place] 1.2.840.1 93045.1.1 3.104.2.7 .3.615672 .8 [id number] [facility] 2023-10-26 08:12:20 2023-10-26 08:12:20 Outpatient [facility] [id number] Georgi Delaney 2023-10-25 14:45:00 2023-10-25 23:59:00 Outpatient R RADIOLOGY [facility] [id number] [facility] 2023-10-25 14:45:00 2023-10-25 23:59:00 Hospital Encounter Radiology 1.2.840.1 37384.1.1 3.104.2.7 .3.745928 .8 [id number] [facility] 2023-10-25 17:25:44 2023-10-25 17:25:44 Outpatient [facility] [place] [id number] Georgi Delaney 2023-10-25 13:45:00 2023-10-25 14:44:00 Hospital Encounter Radiology 1.2.840.1 79689.1.1 3.104.2.7 .3.709043 .8 [id number] [facility] 2023-10-25 00:00:00 2023-10-25 00:00:00 Travel 1.2.840.1 10281.1.1 3.104.2.7 .3.155156 .8 1.2.840.114 350.1.13.10 4.2.7.3.698 084.8 [id number] [facility] 2023-10-24 11:20:39 2023-10-24 11:20:[address] [facility] [id number] Georgi Delaney 2023-10-22 17:22:44 2023-10-22 17:22:44 Outpatient [facility] [place] [id number] Georgi Delaney 2023-10-18 18:31:21 2023-10-18 18:31:21 Outpatient [place] [id number] Georgi Delaney 2023-10-17 11:24:20 2023-10-17 11:24:20 Outpatient [facility] [place] [id number] Georgi Delaney 2023-10-16 23:54:00 2023-10-17 01:45:00 Emergency X JOSEFINA BONNIE [facility] ERT [id number] [facility] 2023-10-16 23:54:00 2023-10-17 01:45:00 Emergency StacyBonnie pérez Jessie 1.2.840.1 27038.1.1 3.104.2.7 .3.394314 .8 [id number] [facility] 2023-10-17 00:00:00 2023-10-17 00:00:00 Patient Secure Msg Doctor Unassigned, [place] [facility] 1.2.840.114 350.1.13.10 4.2.7.2.686 [id number] [facility] 2023-10-16 00:00:00 2023-10-16 00:00:00 Nurse Triage Debbie Velasco 1.2.840.1 11144.1.1 3.104.2.7 .3.779988 .8 [id number] [facility] 2023-10-16 00:00:00 2023-10-16 00:00:00 Telephone Elly Blackburn 1.2.840.1 46839.1.1 3.104.2.7 .3.475781 .8 [id number] [facility] 2023-10-16 00:00:00 2023-10-16 00:00:00 Travel 1.2.840.1 00672.1.1 3.104.2.7 .3.554242 .8 1.2.840.114 350.1.13.10 4.2.7.3.698 084.8 [id number] [facility] 2023-10-15 08:45:00 2023-10-15 09:33:30 Outpatient ATILIO KHANNA [facility] [id number] [facility] 2023-10-15 00:00:00 2023-10-15 00:00:00 Travel 1.2.840.1 46353.1.1 3.104.2.7 .3.300230 .8 1.2.840.114 350.1.13.10 4.2.7.3.698 084.8 [id number] [facility] 2023-10-12 15:08:57 2023-10-12 15:08:57 Outpatient [facility] [id number] Georgi Delaney 2023-10-11 18:19:30 2023-10-11 18:19:30 Outpatient [facility] [id number] Georgi Delaney 2023-10-10 10:04:00 2023-10-10 10:04:00 Outpatient [facility] [id number] Georgi Delaney 2023-10-09 09:00:00 2023-10-09 09:00:00 Outpatient R ELLY BLACKBURN [facility] [id number] [facility] 2023-10-09 00:00:00 2023-10-09 00:00:00 Telephone Elly Blackburn 1.2.840.1 71101.1.1 3.104.2.7 .3.884990 .8 [id number] [facility] 2023-10-09 00:00:00 2023-10-09 00:00:00 Telephone Elly Blackburn 1.2.840.1 77229.1.1 3.104.2.7 .3.519191 .8 [id number] [facility] 2023-10-04 18:49:09 2023-10-04 18:49:09 Outpatient [facility] [id number] Georgi Delaney 2023-10-03 11:19:32 2023-10-03 11:19:[address] [facility] [id number] Georgi Delaney 2023-10-03 00:00:00 2023-10-03 00:00:00 Telephone Navneet Dang 1.2.840.1 23974.1.1 3.104.2.7 .3.397710 .8 [id number] [facility] 2023-10-01 16:58:20 2023-10-01 16:58:20 Outpatient [facility] [id number] Georgi Delaney 2023-10-01 08:45:00 2023-10-01 09:36:52 Outpatient ATILIO KHANNA [facility] [id number] [facility] 2023-10-01 00:00:00 2023-10-01 00:00:00 Travel 1.2.840.1 67269.1.1 3.104.2.7 .3.675145 .8 1.2.840.114 350.1.13.10 4.2.7.3.698 084.8 [id number] [facility] 2023-09-28 00:00:00 2023-09-28 00:00:00 Telephone LuisanadavidjewelMichaelElly 1.2.840.1 74065.1.1 3.104.2.7 .3.206832 .8 [id number] [facility] 2023-09-27 18:56:58 2023-09-27 18:56:[address] [facility] [id number] Georgi Delaney 2023-09-27 00:00:00 2023-09-27 00:00:00 Travel 1.2.840.1 63383.1.1 3.104.2.7 .3.511967 .8 1.2.840.114 350.1.13.10 4.2.7.3.698 084.8 [id number] [facility] 2023-09-26 11:28:03 2023-09-26 11:28:[address] [facility] [id number] Georgi Delaney 2023-09-19 11:47:58 2023-09-19 11:47:[address] [facility] [id number] Georgi Delaney 2023-09-18 14:30:00 2023-09-18 15:13:10 Office Visit Afia Beaulieu 1.2.840.1 95269.1.1 3.104.2.7 .3.798984 .8 [id number] [facility] 2023-09-18 14:30:00 2023-09-18 15:13:10 Outpatient R AFIA BEAULIEU [facility] [id number] [facility] 2023-09-17 16:00:03 2023-09-17 16:00:[address] [facility] [id number] Georgi Delaney 2023-09-17 08:45:00 2023-09-17 09:30:29 Outpatient ATILIO KHANNA [facility] [id number] [facility] 2023-09-17 00:00:00 2023-09-17 00:00:00 Travel 1.2.840.1 00923.1.1 3.104.2.7 .3.811926 .8 1.2.840.114 350.1.13.10 4.2.7.3.698 084.8 [id number] [facility] 2023-09-14 00:00:00 2023-09-14 00:00:00 Travel 1.2.840.1 69237.1.1 3.104.2.7 .3.095233 .8 1.2.840.114 350.1.13.10 4.2.7.3.698 084.8 [id number] [facility] 2023-09-13 18:25:18 2023-09-13 18:25:[address] [facility] [id number] Georgi Delaney 2023-09-07 17:04:45 2023-09-07 17:04:[address] [facility] [id number] Georgi Delaney 2023-09-06 18:58:45 2023-09-06 18:58:45 Outpatient [facility] [id number] Georgi Delaney 2023-09-06 12:00:00 2023-09-06 12:15:00 Manager Planning Visit Ion Miranda 1.2.840.1 65640.1.1 3.104.2.7 .3.985014 .8 [id number] [facility] 2023-09-06 12:00:00 2023-09-06 12:00:00 Outpatient ION COLE STRAHIL [facility] [id number] [facility] 2023-09-06 00:00:00 2023-09-06 00:00:00 Orders Only Doctor Unassigned, [place] 1.2.840.1 31736.1.1 3.104.2.7 .3.977186 .8 [id number] [facility] 2023-09-06 00:00:00 2023-09-06 00:00:00 Travel 1.2.840.1 91927.1.1 3.104.2.7 .3.323678 .8 1.2.840.114 350.1.13.10 4.2.7.3.698 084.8 [id number] [facility] 2023-09-05 11:23:13 2023-09-05 11:23:[address] [facility] [id number] Georgi Delaney 2023-09-03 16:53:51 2023-09-03 16:53:[address] [facility] [id number] Georgi Delaney 2023-09-03 08:45:00 2023-09-03 09:29:48 Outpatient ATILIO KHANNA [facility] [id number] [facility] 2023-09-03 00:00:00 2023-09-03 00:00:00 Travel 1.2.840.1 01321.1.1 3.104.2.7 .3.284891 .8 1.2.840.114 350.1.13.10 4.2.7.3.698 084.8 [id number] [facility] 2023-08-31 00:00:00 2023-08-31 00:00:00 Travel 1.2.840.1 81547.1.1 3.104.2.7 .3.348987 .8 1.2.840.114 350.1.13.10 4.2.7.3.698 084.8 [id number] [facility] 2023-08-30 18:59:50 2023-08-30 18:59:50 Outpatient [facility] [id number] Georgi Delaney 2023-08-29 11:54:24 2023-08-29 11:54:24 Outpatient [facility] [id number] Georgi Delaney 2023-08-28 11:00:00 2023-08-28 11:45:13 Outpatient R BERE ELLY [facility] [id number] [facility] 2023-08-28 11:00:00 2023-08-28 11:45:13 Office Visit BereMichaelElly 1.2.840.1 82098.1.1 3.104.2.7 .3.694940 .8 [id number] [facility] 2023-08-28 00:00:00 2023-08-28 00:00:00 Travel 1.2.840.1 43430.1.1 3.104.2.7 .3.486533 .8 1.2.840.114 350.1.13.10 4.2.7.3.698 084.8 [id number] [facility] 2023-08-22 11:25:11 2023-08-22 11:25:11 Outpatient [facility] [id number] Georgi Delaney 2023-08-22 08:00:00 2023-08-22 08:00:00 Outpatient R [facility] [id number] [place] [facility] [facility] 2023-08-16 18:23:26 2023-08-16 18:23:26 Outpatient SFA SFA [id number] Georgi Delaney 2023-08-15 12:35:53 2023-08-15 12:35:53 Outpatient SFA SFA [id number] Georgi Delaney 2023-08-09 18:21:08 2023-08-09 18:21:08 Outpatient SFA SFA [id number] Georgi Delaney 2023-08-08 17:08:47 2023-08-08 17:08:47 Outpatient SFA SFA [id number] Georgi Delaney 2023-08-02 18:23:13 2023-08-02 18:23:13 Outpatient SFA SFA [id number] Georgi Delaney 2023-07-31 09:40:50 2023-07-31 09:40:[address] [facility] [id number] Georgi Delaney 2023-07-30 09:30:00 2023-07-30 10:00:26 Outpatient R ISELA FERREIRA [facility] [id number] [facility] 2023-07-30 00:00:00 2023-07-30 00:00:00 Travel 1.2.840.1 26211.1.1 3.104.2.7 .3.875073 .8 1.2.840.114 350.1.13.10 4.2.7.3.698 084.8 [id number] [facility] 2023-07-26 10:40:34 2023-07-26 10:40:34 Outpatient [facility] [id number] Georgi Delaney 2023-07-23 08:45:00 2023-07-23 10:33:12 Outpatient R CHANEL JACOME [facility] [id number] [facility] 2023-07-23 00:00:00 2023-07-23 00:00:00 Travel 1.2.840.1 59383.1.1 3.104.2.7 .3.257709 .8 1.2.840.114 350.1.13.10 4.2.7.3.698 084.8 [id number] [facility] 2023-07-23 00:00:00 2023-07-23 00:00:00 Orders Only Doctor Unassigned, [place] 1.2.840.1 17769.1.1 3.104.2.7 .3.453153 .8 [id number] [facility] 2023-07-20 00:00:00 2023-07-20 00:00:00 Travel 1.2.840.1 77872.1.1 3.104.2.7 .3.021944 .8 1.2.840.114 350.1.13.10 4.2.7.3.698 084.8 [id number] [facility] 2023-07-19 18:54:32 2023-07-19 18:54:[address] [facility] [id number] Georgi Delaney 2023-07-19 00:00:00 2023-07-19 00:00:00 Patient Secure Msg Doctor Unassigned, [place] 1.2.840.1 01417.1.1 3.104.2.7 .3.006593 .8 [id number] [facility] 2023-07-18 08:00:00 2023-07-18 09:04:35 Outpatient SHARRI LOWE KIMBERLY [facility] [id number] [facility] 2023-07-18 00:00:00 2023-07-18 00:00:00 Travel 1.2.840.1 25593.1.1 3.104.2.7 .3.337108 .8 1.2.840.114 350.1.13.10 4.2.7.3.698 084.8 [id number] [facility] 2023-07-17 17:38:54 2023-07-17 17:38:[address] [facility] [id number] Georgi Delaney 2023-07-16 17:57:32 2023-07-16 17:57:[address] [facility] [id number] Georgi Delaney 2023-07-16 00:00:00 2023-07-16 00:00:00 Travel 1.2.840.1 99080.1.1 3.104.2.7 .3.970678 .8 1.2.840.114 350.1.13.10 4.2.7.3.698 084.8 [id number] [facility] 2023-07-12 18:22:31 2023-07-12 18:22:[address] [facility] [id number] Georgi Delaney 2023-07-12 00:00:00 2023-07-12 00:00:00 Telephone Navneet Dang 1.2.840.1 07905.1.1 3.104.2.7 .3.494929 .8 [id number] [facility] 2023-07-11 00:00:00 2023-07-11 00:00:00 Telephone Afia Beaulieu 1.2.840.1 84658.1.1 3.104.2.7 .3.291302 .8 [id number] [facility] 2023-07-10 12:48:46 2023-07-10 12:48:46 Outpatient [facility] [place] [id number] Georgi Delaney 2023-07-04 08:45:00 2023-07-04 08:45:00 Outpatient R CHANEL JACOME [facility] [id number] [facility] 2023-07-04 00:00:00 2023-07-04 00:00:00 Travel 1.2.840.1 44096.1.1 3.104.2.7 .3.127266 .8 1.2.840.114 350.1.13.10 4.2.7.3.698 084.8 [id number] [facility] 2023-06-28 17:20:13 2023-06-28 17:20:[address] [facility] [id number] Georgi Delaney 2023-06-26 17:09:38 2023-06-26 17:09:[address] [facility] [id number] Georgi Delaney 2023-06-25 14:22:23 2023-06-25 14:22:[address] [facility] [id number] Georgi Delaney 2023-06-22 14:53:38 2023-06-22 14:53:[address] [facility] [id number] Georgi Delaney 2023-06-20 08:45:00 2023-06-20 09:49:50 Outpatient R CHANEL JACOME [facility] [id number] [facility] 2023-06-19 00:00:00 2023-06-19 00:00:00 Travel 1.2.840.1 36406.1.1 3.104.2.7 .3.873134 .8 1.2.840.114 350.1.13.10 4.2.7.3.698 084.8 [id number] [facility] 2023-06-18 17:35:48 2023-06-18 17:35:[address] [facility] [id number] Georgi Delaney 2023-06-14 18:57:51 2023-06-14 18:57:[address] [facility] [id number] Georgi Delaney 2023-06-12 12:20:21 2023-06-12 12:20:[address] [facility] [id number] Georgi Delaney 2023-06-12 00:00:00 2023-06-12 00:00:00 Patient Secure Msg Doctor Unassigned, [place] 1.2.840.1 21510.1.1 3.104.2.7 .3.330482 .8 [id number] [facility] 2023-06-07 18:30:14 2023-06-07 18:30:[address] [facility] [id number] Georgi Delaney 2023-06-06 12:03:13 2023-06-06 12:03:[address] [facility] [id number] Georgi Delaney 2023-06-06 08:45:00 2023-06-06 09:45:02 Outpatient CHANEL HAYES [facility] [id number] [facility] 2023-06-05 11:42:00 2023-06-05 11:42:[address] [facility] [id number] Georgi Delaney 2023-06-05 00:00:00 2023-06-05 00:00:00 Travel 1.2.840.1 33679.1.1 3.104.2.7 .3.490517 .8 1.2.840.114 350.1.13.10 4.2.7.3.698 084.8 [id number] [facility] 2023-05-30 17:31:37 2023-05-30 17:31:[address] [facility] [id number] Georgi Delaney 2023-05-30 00:00:00 2023-05-30 00:00:00 Telephone Afia Beaulieu 1.2.840.1 27733.1.1 3.104.2.7 .3.793598 .8 [id number] [facility] 2023-05-29 11:50:55 2023-05-29 11:50:[address] [facility] 17 Georgi Delaney 2023-05-24 18:32:38 2023-05-24 18:32:[address] [facility] 12 Georgi Delaney 2023-05-24 08:30:00 2023-05-24 08:53:04 Outpatient R BRITTNEE AFIA [facility] [id number] [facility] 2023-05-24 08:30:00 2023-05-24 08:53:04 Office Visit Afia Beaulieu 1.2.840.1 23506.1.1 3.104.2.7 .3.956271 .8 [id number] [facility] 2023-05-24 00:00:00 2023-05-24 00:00:00 Travel 1.2.840.1 53659.1.1 3.104.2.7 .3.331076 .8 1.2.840.114 350.1.13.10 4.2.7.3.698 084.8 [id number] [facility] 2023-05-23 16:37:51 2023-05-23 16:37:[address] [facility] [id number] Georgi Delaney 2023-05-22 11:25:17 2023-05-22 11:25:[address] [facility] [id number] Georgi Delaney 2023-05-18 00:00:00 2023-05-18 00:00:00 Nurse Triage Jens Cararnza, Sharri Canseco 1.2.840.1 91936.1.1 3.104.2.7 .3.762912 .8 [id number] [facility] 2023-05-17 18:32:35 2023-05-17 18:32:35 Outpatient SFA SFA [id number] Georgi Delaney 2023-05-15 17:38:26 2023-05-15 17:38:26 Outpatient SFA SFA [id number] Georgi Delaney 2023-05-10 18:53:57 2023-05-10 18:53:57 Outpatient SFA SFA [id number] Georgi Delaney 2023-05-09 08:45:00 2023-05-09 10:11:14 Outpatient SHARRI LOWE KIMBERLY [facility] [id number] [facility] 2023-05-09 00:00:00 2023-05-09 00:00:00 Travel 1.2.840.1 80149.1.1 3.104.2.7 .3.997878 .8 1.2.840.114 350.1.13.10 4.2.7.3.698 084.8 [id number] [facility] 2023-05-08 11:49:40 2023-05-08 11:49:40 Outpatient SFA SFA [id number] Georgi Delaney 2023-05-04 12:44:08 2023-05-04 12:44:08 Outpatient SFA SFA [id number] Georgi Delaney 2023-05-03 18:32:26 2023-05-03 18:32:26 Outpatient SFA SFA [id number] Georgi Delaney 2023-05-01 11:35:50 2023-05-01 11:35:50 Outpatient SFA SFA [id number] Georgi Delaney 2023-04-26 18:54:59 2023-04-26 18:54:59 Outpatient SFA SFA [id number] Georgi Johnson Rhett 2023-04-25 08:45:00 2023-04-25 10:13:07 Outpatient CHANEL HAYES [facility] [id number] [facility] 2023-04-25 00:00:00 2023-04-25 00:00:00 Travel 1.2.840.1 56155.1.1 3.104.2.7 .3.043727 .8 1.2.840.114 350.1.13.10 4.2.7.3.698 084.8 [id number] [facility] 2023-04-24 11:26:23 2023-04-24 11:26:[address] [facility] [id number] Georgi Delaney 2023-04-20 19:36:00 2023-04-20 23:55:00 Emergency X GEORGETTE JEFFREY [facility] [id number] [facility] 2023-04-20 19:36:00 2023-04-20 23:55:00 Emergency Georgette Jeffrey S 1.2.840.1 80008.1.1 3.104.2.7 .3.983018 .8 [id number] [facility] 2023-04-20 00:00:00 2023-04-20 00:00:00 Nurse Triage Mildred Harmon 1.2.840.1 22024.1.1 3.104.2.7 .3.855779 .8 [id number] [facility] 2023-04-20 00:00:00 2023-04-20 00:00:00 Travel 1.2.840.1 51038.1.1 3.104.2.7 .3.111019 .8 1.2.840.114 350.1.13.10 4.2.7.3.698 084.8 [id number] [facility] 2023-04-19 18:30:50 2023-04-19 18:30:[address] [facility] [id number] Georgi Delaney 2023-04-17 14:29:59 2023-04-17 14:29:59 Outpatient [facility] [id number] Georgi Delaney 2023-04-13 08:56:15 2023-04-13 23:59:00 Hospital Encounter Radiology 1.2.840.1 48315.1.1 3.104.2.7 .3.800822 .8 [id number] [facility] 2023-04-13 08:56:15 2023-04-13 23:59:00 Outpatient R RADIOLOGY [facility] [id number] [facility] 2023-04-13 08:55:54 2023-04-13 08:55:54 Hospital Encounter Radiology 1.2.840.1 29729.1.1 3.104.2.7 .3.311280 .8 [id number] [facility] 2023-04-13 08:55:27 2023-04-13 08:55:27 Hospital Encounter Radiology 1.2.840.1 41725.1.1 3.104.2.7 .3.578296 .8 [id number] [facility] 2023-04-12 19:00:40 2023-04-12 19:00:40 Outpatient SFA SFA [id number] Georgi Johnson Rhett 2023-04-10 11:30:44 2023-04-10 11:30:44 Outpatient SFA SFA [id number] Georgi Delaney 2023-04-05 18:18:42 2023-04-05 18:18:42 Outpatient SFA SFA [id number] Georgi Johnson Rhett 2023-04-04 09:30:00 2023-04-04 10:41:40 Outpatient R SELF, CHANEL [facility] [id number] [facility] 2023-04-04 00:00:00 2023-04-04 00:00:00 Travel 1.2.840.1 59858.1.1 3.104.2.7 .3.819225 .8 1.2.840.114 350.1.13.10 4.2.7.3.698 084.8 [id number] [facility] 2023-04-03 11:21:59 2023-04-03 11:21:59 Outpatient SFA SFA [id number] Georgi Delaney 2023-03-29 18:55:20 2023-03-29 18:55:[address] [facility] [id number] Georgi Delaney 2023-03-27 12:02:13 2023-03-27 12:02:[address] [facility] [id number] Georgi Delaney 2023-03-21 10:15:00 2023-03-21 13:01:48 Outpatient R SHARRI OLSON SHARRI [facility] [id number] [facility] 2023-03-21 00:00:00 2023-03-21 00:00:00 Travel 1.2.840.1 59483.1.1 3.104.2.7 .3.761555 .8 1.2.840.114 350.1.13.10 4.2.7.3.698 084.8 [id number] [facility] 2023-03-20 12:37:00 2023-03-20 12:37:[address] [facility] [id number] Gerogi Delaney 2023-03-19 14:00:00 2023-03-19 14:34:36 Outpatient R AFIA BEAULIEU [facility] [id number] [facility] 2023-03-19 14:00:00 2023-03-19 14:34:36 Office Visit Afia Beaulieu 1.2.840.1 12656.1.1 3.104.2.7 .3.780507 .8 [id number] [facility] 2023-03-19 00:00:00 2023-03-19 00:00:00 Travel 1.2.840.1 43622.1.1 3.104.2.7 .3.194014 .8 1.2.840.114 350.1.13.10 4.2.7.3.698 084.8 [id number] [facility] 2023-03-19 00:00:00 2023-03-19 00:00:00 Orders Only Zhanna Kramer 1.2.840.1 00846.1.1 3.104.2.7 .3.250089 .8 [id number] [facility] 2023-03-16 00:00:00 2023-03-16 00:00:00 Travel 1.2.840.1 83542.1.1 3.104.2.7 .3.672538 .8 1.2.840.114 350.1.13.10 4.2.7.3.698 084.8 [id number] [facility] 2023-03-15 18:23:30 2023-03-15 18:23:30 Outpatient SFA SFA [id number] Georgi Delaney 2023-03-13 15:41:52 2023-03-13 15:41:52 Outpatient SFA SFA [id number] Georgi Delaney 2023-03-09 18:15:48 2023-03-09 18:15:48 Outpatient SFA SFA [id number] Georgi Delaney 2023-03-08 18:27:54 2023-03-08 18:27:54 Outpatient SFA SFA [id number] Georgi Delaney 2023-03-07 17:09:40 2023-03-07 17:09:40 Outpatient SFA SFA [id number] Georgi Delaney 2023-03-06 13:55:04 2023-03-06 13:55:04 Outpatient SFA SFA [id number] Georgi Delaney 2023-03-01 19:02:12 2023-03-01 19:02:12 Outpatient SFA SFA [id number] Georgi Delaney 2023-02-27 12:52:47 2023-02-27 12:52:47 Outpatient SFA SFA [id number] Georgi Delaney 2023-02-27 00:00:00 2023-02-27 00:00:00 Telephone Afia Beaulieu 1.2.840.1 14220.1.1 3.104.2.7 .3.485033 .8 [id number] [facility] 2023-02-26 14:06:01 2023-02-26 23:59:00 Outpatient R AFIA BEAULIEU [facility] [id number] [facility] 2023-02-26 14:06:01 2023-02-26 23:59:00 Hospital Encounter Curly Beaulieussica 1.2.840.1 59975.1.1 3.104.2.7 .3.868333 .8 [id number] [facility] 2023-02-26 00:00:00 2023-02-26 00:00:00 Orders Only Doctor Unassigned, [place] 1.2.840.1 91392.1.1 3.104.2.7 .3.905828 .8 [id number] [facility] 2023-02-23 00:00:00 2023-02-23 00:00:00 Outpatient R AFIA BEAULIEU [facility] [id number] [facility] 2023-02-22 18:59:42 2023-02-22 18:59:[address] [facility] [id number] Georgi Delaney 2023-02-22 08:00:00 2023-02-22 10:21:38 Outpatient ISELA HAIDER [facility] [id number] [facility] 2023-02-22 00:00:00 2023-02-22 00:00:00 Orders Only Doctor Unassigned, [place] [facility] 1.2.840.114 350.1.13.10 4.2.7.2.686 [id number] [facility] 2023-02-22 00:00:00 2023-02-22 00:00:00 Travel 1.2.840.1 94679.1.1 3.104.2.7 .3.623737 .8 1.2.840.114 350.1.13.10 4.2.7.3.698 084.8 [id number] [facility] 2023-02-20 00:00:00 2023-02-20 00:00:00 Telephone Afia Beaulieu 1.2.840.1 54281.1.1 3.104.2.7 .3.425920 .8 [id number] [facility] 2023-02-20 00:00:00 2023-02-20 00:00:00 Travel 1.2.840.1 11601.1.1 3.104.2.7 .3.405587 .8 1.2.840.114 350.1.13.10 4.2.7.3.698 084.8 [id number] [facility] 2023-02-19 00:00:00 2023-02-19 00:00:00 Telephone Afia Beaulieu 1.2.840.1 58331.1.1 3.104.2.7 .3.052639 .8 [id number] [facility] 2023-02-16 16:00:00 2023-02-16 16:37:59 Outpatient R AFIA BEAULIEU [facility] [id number] [facility] 2023-02-16 16:00:00 2023-02-16 16:37:59 Office Visit Afia Beaulieu 1.2.840.1 44695.1.1 3.104.2.7 .3.168704 .8 [id number] [facility] 2023-02-16 10:40:55 2023-02-16 10:40:55 Outpatient [facility] [id number] Georgi Delaney 2023-02-16 00:00:00 2023-02-16 00:00:00 Orders Only Doctor Unassigned, [place] 1.2.840.1 17381.1.1 3.104.2.7 .3.221916 .8 [id number] [facility] 2023-02-16 00:00:00 2023-02-16 00:00:00 Telephone Afia Beaulieu 1.2.840.1 66104.1.1 3.104.2.7 .3.852668 .8 [id number] [facility] 2023-02-16 00:00:00 2023-02-16 00:00:00 Refill Afia Beaulieu 1.2.840.1 65467.1.1 3.104.2.7 .3.701588 .8 [id number] [facility] 2023-02-16 00:00:00 2023-02-16 00:00:00 Travel 1.2.840.1 58400.1.1 3.104.2.7 .3.865183 .8 1.2.840.114 350.1.13.10 4.2.7.3.698 084.8 [id number] [facility] 2023-02-15 18:29:11 2023-02-15 18:29:11 Outpatient SFA SFA [id number] Georgi Johnson [place] 2023-01-24 14:36:00 2023-01-24 14:36:00 Outpatient SFA SFA [id number] Georgi Johnson [place] 2023-01-23 11:08:53 2023-01-23 11:08:[address] [facility] [id number] Georgi Johnson [place] 2023-01-23 00:00:00 2023-01-23 00:00:00 Orders Only Doctor Unassigned, [place] 1.2.840.1 77607.1.1 3.104.2.7 .3.840404 .8 [id number] [facility] 2023-01-18 15:07:35 2023-01-18 15:07:35 Outpatient SFA SFA [id number] Georgi Johnson [place] 2023-01-16 16:50:24 2023-01-16 16:50:24 Outpatient SFA SFA [id number] Georgi Johnson [place] 2023-01-08 15:29:19 2023-01-08 15:29:19 Outpatient SFA SFA [id number] Georgi Johnson [place] 2023-01-03 00:00:00 2023-01-03 00:00:00 Orders Only Doctor Unassigned, [place] 1.2.840.1 59854.1.1 3.104.2.7 .3.372211 .8 [id number] [facility] 2022-12-23 09:11:36 2022-12-23 09:11:36 Outpatient SFA SFA [id number] Georgi Delaney 2022-12-11 16:09:25 2022-12-11 16:09:25 Outpatient SFA SFA [id number] Georgi Delaney 2022-12-05 10:53:45 2022-12-05 10:53:45 Outpatient SFA SFA [id number] Georgi Delaney 2022-11-28 17:46:35 2022-11-28 17:46:35 Outpatient SFA SFA 18 Georgi Delaney 2022-11-20 00:00:00 2022-11-20 00:00:00 Telephone [facility] 1.2.840.114 350.1.13.10 4.2.7.2.686 [id number] [facility] 2022-11-17 11:28:22 2022-11-17 11:28:22 Outpatient SFA SFA [id number] Georgi Delaney 2022-11-08 13:56:45 2022-11-08 13:56:45 Outpatient SFA SFA 29 Georgi Delaney 2022-11-01 11:26:47 2022-11-01 11:26:47 Outpatient SFA SFA 22 Georgi Delaney 2022-10-31 13:04:58 2022-10-31 13:04:58 Outpatient SFA SFA 21 Georgi Delaney 2022-10-20 11:25:26 2022-10-20 11:25:26 Outpatient SFA SFA 10 Georgi Delaney 2022-10-19 14:02:23 2022-10-19 14:02:23 Outpatient SFA SFA [id number] Georgi Delaney 2022-10-09 10:08:28 2022-10-09 10:08:28 Outpatient SFA SFA 27 Georgi Delaney 2022-09-21 11:54:36 2022-09-21 11:54:36 Outpatient SFA SFA [id number] Georgi Delaney 2022-09-15 11:33:15 2022-09-15 11:33:15 Outpatient SFA SFA 03 Georgi Delaney 2022-09-08 10:49:58 2022-09-08 10:49:58 Outpatient SFA SFA Georgi Delaney 2022-09-07 15:51:56 2022-09-07 15:51:56 Outpatient SFA SFA Georgi Delaney 2022-09-05 10:47:25 2022-09-05 10:47:25 Outpatient SFA SFA Georgi Delaney 2022-09-04 11:21:25 2022-09-04 11:21:25 Outpatient SFA SFA Georgi Delaney 2022-08-30 15:33:51 2022-08-30 15:33:51 Outpatient SFA SFA Georgi Delaney 2022-08-30 00:00:00 2022-08-30 00:00:00 Outpatient Visit [id number] 2022-08-25 10:13:30 2022-08-25 10:13:30 Outpatient SFA SFA Georgi Delaney 2022-08-11 09:20:54 2022-08-11 09:20:54 Outpatient SFA SFA Georgi Delaney 2022-07-28 11:30:57 2022-07-28 11:30:57 Outpatient SFA SFA Georgi Delaney 2022-07-14 11:31:56 2022-07-14 11:31:56 Outpatient SFA SFA Georgi Delaney 2022-06-29 15:28:07 2022-06-29 15:28:07 Outpatient SFA SFA Georgi Delaney 2022-06-29 00:00:00 2022-06-29 00:00:00 Outpatient Visit [id number] 2022-06-16 11:17:33 2022-06-16 11:17:[address] [facility] [id number] Georgi Delaney 2022-06-15 09:41:11 2022-06-15 09:41:[address] [facility] [id number] Georgi Delaney 2022-06-08 00:00:00 2022-06-08 00:00:00 Outpatient Visit [id number] 2022-04-27 00:00:00 2022-04-27 00:00:00 Outpatient Visit [id number] 2022-03-02 00:00:00 2022-03-02 00:00:00 Outpatient Visit [id number] 2021-07-27 11:56:00 2021-07-27 15:42:00 Emergency X SIDDHARTH Yamil [facility] ERT [id number] [facility] 2021-07-27 11:56:00 2021-07-27 15:42:00 [facility] 1.2.840.114 350.1.13.10 4.2.7.2.686 [id number] [facility] 2021-06-24 22:06:00 2021-06-24 23:54:00 Emergency X YOON PAGE [facility] ERT [id number] [facility] 2021-06-24 22:06:00 2021-06-24 23:54:[address] [facility] 1.2.840.114 350.1.13.10 4.2.7.2.686 [id number] [facility] 2021-06-24 00:00:00 2021-06-24 00:00:00 Orders Only Doctor Unassigned, [place] [facility] 1.2.840.114 350.1.13.10 4.2.7.2.686 [id number] [facility] 2021-02-17 14:13:58 2021-02-17 15:19:24 Office Visit Pgy2 Marques Mansfield [facility] 1.20.114 350.1.13.10 4.2.7.2.686 [id number] [facility] 2021-02-17 14:00:00 2021-02-17 14:00:00 Outpatient R [facility] [id number] [facility] 2021-01-06 00:00:00 2021-01-06 00:00:00 Orders Only Doctor Unassigned, [place] [facility] 1.2840.114 350.1.13.10 4.2.7.2.686 [id number] [facility] 2021-01-05 13:58:29 2021-01-05 16:19:12 Office Visit [facility] Resident Aracely Villanueva [facility] 1.20.114 350.1.13.10 4.2.7.2.686 [id number] [facility] 2021-01-05 14:15:00 2021-01-05 14:15:00 Outpatient R [facility] [id number] [facility] 2020-12-10 00:00:00 2020-12-10 00:00:00 Telephone Dena Spangler [facility] 1.0.114 350.1.13.10 4.2.7.2.686 [id number] [facility] 2020-12-07 14:35:42 2020-12-07 16:30:20 Office Visit [facility] Resident Jeanette Campos [facility] 1.2.840.114 350.1.13.10 4.2.7.2.686 [id number] [facility] 2020-12-07 14:30:00 2020-12-07 14:30:00 Outpatient R CAMPOSJEANETTE [facility] [id number] [facility] 2020-12-07 00:00:00 2020-12-07 00:00:00 Orders Only Doctor Unassigned, [place] [facility] 1..840.114 350.1.13.10 4.2.7.2.686 [id number] [facility] 2020-12-02 14:05:00 2020-12-02 14:05:00 Outpatient BEBE ACUNA [facility] [id number] [facility] Results Test Description Test Time Test Comments Results Result Comments Source REFERRAL- REQUEST/RESPONS E 16:25:56 Ordered by an unspecified provider. [facility] REFERRAL- REQUEST/RESPONS E 16:25:56 Ordered by an unspecified provider. [facility] REFERRAL- REQUEST/RESPONS E 16:25:56 Ordered by an unspecified provider. [facility] REFERRAL- REQUEST/RESPONS E 16:25:56 Ordered by an unspecified provider. [facility] REFERRAL- REQUEST/RESPONS E 16:25:56 Ordered by an unspecified provider. [facility] XR LUMBAR SPINE 4 VW 20:17:08 HISTORY: ?Low back pain. FINDINGS: AP, lateral and 2 oblique views of the lumbar spines obtained inupright position showed 5 lumbar vertebrae with no acute compressionfracture or dislocation. No aggressive bone lesions. Exaggerated lumbar lordosis is noted with small osteophytes along theventral vertebral margins at L2-L3, L3-L4 levels, with minimalretrolisthesis of L2 over L3. Minimal narrowing of L3-L4, L4-L5 disc spaces noted. Small sized L5-S1 discspace could be a developmental variation. Oblique view showed bilateral lower 2 lumbar level facet arthritis. CONCLUSIONS: Exaggerated lumbar lordosis with lower 2 lumbar level facetarthritis and mild changes of disc disease at L3-L4, L4-L5. [facility] XR THORACIC SPINE 2 VW 20:15:05 HISTORY: ?Back pain. COMPARISON: None. TECHNIQUE: AP and lateral views of the thoracic spines are submitted. FINDINGS: No compression fracture detected. No aggressive bone lesions orparavertebral soft tissue swelling. Small osteophytes are seen along theventral and lateral vertebral margins at middle and lower thoracic levels. CONCLUSIONS: No fracture. [facility] [id number] 06:14:00* Test Item Value Reference Range Interpretation Comme nts POCT PREG (test code = 1605) Negative On board controls acceptable with C Line (test code = 3574) Yes POCT PREG LOT # (test code = 3575) [id number] POCT PREG TEST DATE ( test code = 3576) 11/18/2024 Lab Interpretation (test cod e = 60182-1) Normal [facility] [id number] 06:14:00* Test Item Value Reference Range Interpretation Comme nts POCT PREG (test code = 1605) Negative On board controls acceptable with C Line (test code = 3574) Yes POCT PREG LOT # (test code = 3575) [id number] POCT PREG TEST DATE ( test code = 3576) 11/18/2024 Lab Interpretation (test cod e = 93396-1) Normal [facility] [id number] 06:14:00* Test Item Value Reference Range Interpretation Comme nts POCT PREG (test code = 1605) Negative On board controls acceptable with C Line (test code = 3574) Yes POCT PREG LOT # (test code = 3575) [id number] POCT PREG TEST DATE ( test code = 3576) 11/18/2024 Lab Interpretation (test cod e = 20261-5) Normal [facility] [id number] 06:14:00* Test Item Value Reference Range Interpretation Comme nts POCT PREG (test code = 1605) Negative On board controls acceptable with C Line (test code = 3574) Yes POCT PREG LOT # (test code = 3575) [id number] POCT PREG TEST DATE ( test code = 3576) 11/18/2024 Lab Interpretation (test cod e = 88976-6) [facility] [id number] 06:14:00* Test Item Value Reference Range Interpretation Comme nts POCT PREG (test code = 1605) Negative On board controls acceptable with C Line (test code = 3574) Yes POCT PREG LOT # (test code = 3575) [id number] POCT PREG TEST DATE ( test code = 3576) 11/18/2024 Lab Interpretation (test cod e = 93924-8) [facility] [id number] 06:14:00* Test Item Value Reference Range Interpretation Comme nts POCT PREG (test code = 1605) Negative On board controls acceptable with C Line (test code = 3574) Yes POCT PREG LOT # (test code = 3575) [id number] POCT PREG TEST DATE ( test code = 3576) 11/18/2024 Lab Interpretation (test cod e = 59913-6) [facility] [id number] 06:14:00* Test Item Value Reference Range Interpretation Comme nts POCT PREG (test code = 1605) Negative On board controls acceptable with C Line (test code = 3574) Yes POCT PREG LOT # (test code = 3575) [id number] POCT PREG TEST DATE ( test code = 3576) 11/18/2024 Lab Interpretation (test cod e = 97794-4) [facility] [id number] 06:14:00* Test Item Value Reference Range Interpretation Comme nts POCT PREG (test code = 1605) Negative On board controls acceptable with C Line (test code = 3574) Yes POCT PREG LOT # (test code = 3575) [id number] POCT PREG TEST DATE ( test code = 3576) 11/18/2024 Lab Interpretation (test cod e = 34076-1) [facility] [id number] 06:14:00* Test Item Value Reference Range Interpretation Comme nts POCT PREG (test code = 1605) Negative On board controls acceptable with C Line (test code = 3574) Yes POCT PREG LOT # (test code = 3575) [id number] POCT PREG TEST DATE ( test code = 3576) 11/18/2024 Lab Interpretation (test cod e = 00412-4) Normal [facility] 04:48:14* Test Item Value Reference Range Interpretation Comme nts FREE T3 (test code = 4273) 2.4 PG/ML 2.2-4.2 FREE T4 (THYROXINE)2023-09-07 04:48:14* Test Item Value Reference Range Interpretation Comme nts FREE T4 (THYROXINE) (test code = 2823) 1.28 NG/DL 0.80-1.90 UNLESS OTHERWISE INDICATED, ALL TESTING PERFORMED AT [facility]ICAL PATHOLOG[facility] [employer] [address] [place] [address] PAD MAKING MACHINE OPERATOR: TOM MORALES M.D. CLIA NUMBER [id number] [place]. [id number] TSH, THIRD [id number] 09:15:10* Test Item Value Reference Range Interpretation Comme nts TSH, THIRD GENERATION (test code = 2821) 0.272 UIU/ML 0.400-4.100 L UNLESS OTHERWISE INDICATED, ALL TESTING PERFORMED AT [facility] [address] [place] [address] PAD MAKING MACHINE OPERATOR: TOM MORALES M.D. CLIA NUMBER [id number] [place]. [id number] TSH, THIRD [id number] 04:01:26* Test Item Value Reference Range Interpretation Comme nts TSH, THIRD GENERATION (test code = 2821) 0.960 UIU/ML 0.400-4.100 FREE 04:01:26* Test Item Value Reference Range Interpretation Comme nts FREE T3 (test code = 4273) 2.8 PG/ML 2.2-4.2 FREE T4 (THYROXINE)2023-06-07 04:01:26* Test Item Value Reference Range Interpretation Comme nts FREE T4 (THYROXINE) (test co de = 2823) 1.51 NG/DL 0.80-1.90 HIGH SENSITIVITY [id number] 04:01:09* Test Item Value Reference Range Interpretation Comme nts HIGH SENSITIVITY CRP (test code = 99978) 10.1 MG/L SEE BELOW H hsCRP LEVEL RELATIVE RISK <1.0 MG/L LOW 1.0-3.0 MG/L AVERAGE >3.0 MG/L HIGH (from Philomena TNatalieA. et al. Circulation 2003; 107:499) CBC W/AUTO DIFF WITH [id number] 02:38:59* Test Item Value Reference Range Interpretation Comme nts WBC (test code = 1001) 10.1 K/UL 3.5-11.0 RBC (test code = 1002) 4.84 M/UL 3.80-5.40 HEMOGLOBIN (test code = 1003) 13.7 G/DL 11.5-15.5 HEMATOCRIT (test code = 1004) 41.2 % 34.0-45.0 MCV (test code = 1005) 85.1 fL 80.0-99.0 MCH (test code = 1006) 28.3 PG 25.0-33.0 MCHC (test code = 1007) 33.3 G/DL 31.0-36.0 RDW (test code = 1038) 13.9 % 11.5-15.0 NEUTROPHILS (test code = 1008) 51.7 % LYMPHOCYTES (test code = 1010) 40.9 % MONOCYTES (test code = 1011) 6.3 % EOSINOPHILS (test code = 1012) 0.6 % BASOPHILS (test code = 1013) 0.2 % IMMATURE GRANULOCYTES (test code = 1036) 0.3 % NUCLEATED RBCS (test code = 1065) 0.0 /100 WBC'S See_Comment [Automated message] The system which generated this result transmitted reference range: 0.0. The reference range was not used to interpret this result as normal/abnormal. PLATELET COUNT (test code = 1015) 313 K/UL 130-400 ABSOLUTE NEUTROPHILS (test code = 1066) 5.21 K/UL 1.50-7.50 ABSOLUTE LYMPHOCYTES (test code = 1067) 4.12 K/UL 1.00-4.00 H ABSOLUTE MONOCYTES (test code = 1068) 0.63 K/UL 0.20-1.00 ABSOLUTE EOSINOPHILS (test code = 1040) 0.06 K/UL 0.00-0.50 ABSOLUTE BASOPHILS (test code = 1069) 0.02 K/UL 0.00-0.20 ABS IMMATURE GRANULOCYTES (test code = 1020) 0.03 K/UL 0.00-0.10 ABS NUCLEATED RBCS (test code = 83472) 0.00 K/UL 0.00-0.11 UNLESS OTHER JENSEN INDICATED, ALL TESTING PERFORMED AT [facility] [employer] [address] [place] [address] PAD MAKING MACHINE OPERATOR: TOM MORALES M.D. CLIA NUMBER [id number] [place]. [id number] TSH + FREE T4 [id number] 06:33:47* Test Item Value Reference Range Interpretation Comme nts TSH, THIRD GENERATION (test code = 2821) 0.381 UIU/ML 0.400-4.100 L FREE T4 (THYROXINE) (test co de = 2823) 1.49 NG/DL 0.80-1.90 T3 [id number] 06:33:47* Test Item Value Reference Range Interpretation Comme nts T3 TOTAL (test code = 2818) 98 NG/DL 80-200 HIGH SENSITIVITY [id number] 04:12:17* Test Item Value Reference Range Interpretation Comme nts HIGH SENSITIVITY CRP (test code = 50128) 3.5 MG/L SEE BELOW H hsCRP LEVEL RELATIVE RISK <1.0 MG/L LOW 1.0-3.0 MG/L AVERAGE >3.0 MG/L HIGH (from Quach, T.A. et al. Circulation 2003; 107:499) UNLESS OTHERWISE INDICATED, ALL TESTING PERFORMED AT CLINICAL PATHOLOGY [employer] [address] [place] [address] PAD MAKING MACHINE OPERATOR: TOM MORALES M.D. CLIA NUMBER [id number] [place]. [id number] CBC W/AUTO DIFF WITH [id number] 01:43:18* Test Item Value Reference Range Interpretation Comme nts WBC (test code = 1001) 10.2 K/UL 3.5-11.0 RBC (test code = 1002) 5.07 M/UL 3.80-5.40 HEMOGLOBIN (test code = 1003) 13.9 G/DL 11.5-15.5 HEMATOCRIT (test code = 1004) 42.8 % 34.0-45.0 MCV (test code = 1005) 84.4 fL 80.0-99.0 MCH (test code = 1006) 27.4 PG 25.0-33.0 MCHC (test code = 1007) 32.5 G/DL 31.0-36.0 RDW (test code = 1038) 13.6 % 11.5-15.0 NEUTROPHILS (test code = 1008) 48.8 % LYMPHOCYTES (test code = 1010) 41.9 % MONOCYTES (test code = 1011) 6.3 % EOSINOPHILS (test code = 1012) 2.0 % BASOPHILS (test code = 1013) 0.6 % IMMATURE GRANULOCYTES (test code = 1036) 0.4 % NUCLEATED RBCS (test code = 1065) 0.0 /100 WBC'S See_Comment [Automated Elephant[employer] ge] The system which generated this result transmitted reference range: 0.0. The reference range was not used to interpret this result as normal/abnormal. PLATELET COUNT (test code = 1015) 323 K/UL 130-400 ABSOLUTE NEUTROPHILS (test code = 1066) 4.99 K/UL 1.50-7.50 ABSOLUTE LYMPHOCYTES (test code = 1067) 4.27 K/UL 1.00-4.00 H ABSOLUTE MONOCYTES (test code = 1068) 0.64 K/UL 0.20-1.00 ABSOLUTE EOSINOPHILS (test code = 1040) 0.20 K/UL 0.00-0.50 ABSOLUTE BASOPHILS (test code = 1069) 0.06 K/UL 0.00-0.20 ABS IMMATURE GRANULOCYTES (test code = 1020) 0.04 K/UL 0.00-0.10 ABS NUCLEATED RBCS (test code = 09056) 0.00 K/UL 0.00-0.11 TSH, THIRD [id number] 12:02:55* Test Item Value Reference Range Interpretation Comme nts TSH, THIRD GENERATION (test code = 2821) 0.678 UIU/ML 0.400-4.100 UNLESS OTHERWISE INDICATED, ALL TESTING PERFORMED AT [facility] [address] [place] [address] PAD MAKING MACHINE OPERATOR: TOM MORALES M.D. CLIA NUMBER [id number] [facility] [place]. [id number] HEMOGLOBIN [id number] 03:11:34* Test Item Value Reference Range Interpretation Comme [facility] HEMOGLOBIN A1c (test code = 85201) 5.9 % 4.2-5.6 H [employer] GUIDELINES FOR HGB A1C: PREDIABETES/INCREASED RISK . . . . . . . 5.7-6.4% DIAGNOSIS OF DIABETES . . . . . . . . . >=6.5% WITH CONFIRMATION OR APPROPRIATE SYMPTOMS NOTE: ASSAY MAY BE AFFECTED BY HEMOGLOBINOPATHIES (SICKLE CELL ANEMIA, S-C DISEASE, OTHERS) OR ARTIFICIALLY LOWERED BY DECREASED RED CELL SURVIVAL (HEMOLYTIC ANEMIAS, BLOOD LOSS, ETC.). CONSIDER ALTERNATE TESTING OR LABORATORY CONSULTATION. UNLESS OTHERWISE INDICATED, ALL TESTING PERFORMED AT CLINICAL PATHOLOGY [employer] [address] [place] [address] PAD MAKING MACHINE OPERATOR: TOM MORALES M.D. CLIA NUMBER [id number] [facility] [place]. [id number] COMPREHENSIVE METABOLIC [id number] 07:39:28* Test Item Value Reference Range Interpretation Comme nts GLUCOSE (test code = 2217) 112 MG/DL 70-99 H BUN (test code = 2208) 14 MG/DL 6-20 CREATININE (test code = 2214) 0.79 MG/DL 0.60-1.30 eGFR (2020 CKD-EPI) (test code = 83352) 101 ML/MIN/1.73 >60 CALC BUN/CREAT (test code = 2235) 18 RATIO 6-28 SODIUM (test code = 2231) 140 MEQ/L 133-146 POTASSIUM (test code = 2228) 3.8 MEQ/L 3.5-5.4 CHLORIDE (test code = 2215) 101 MEQ/L 95-107 CARBON DIOXIDE (test code = 2206) 24 MEQ/L 19-31 CALCIUM (test code = 2209) 9.7 MG/DL 8.5-10.5 PROTEIN, TOTAL (test code = 2229) 6.7 G/DL 6.1-8.3 ALBUMIN (test code = 2201) 4.1 G/DL 3.5-5.2 CALC GLOBULIN (test code = 2240) 2.6 G/DL 1.9-3.7 CALC A/G RATIO (test code = 2234) 1.6 RATIO 1.0-2.6 BILIRUBIN, TOTAL (test code = 2207) <0.2 MG/DL See_Comment [Automated me ssage] The system which generated this result transmitted reference range: <=1.2. The reference range was not used to interpret this result as normal/abnormal. ALKALINE PHOSPHATASE (test code = 2204) 80 U/L 40-114 AST (test code = 2218) 22 U/L 9-40 ALT (test code = 2219) 24 U/L 5-40 UNLESS OTHERWISE INDICATED, ALL TESTING PERFORMED [facility] [address] [place] [address] PAD MAKING MACHINE OPERATOR: EDVIN BENSON M.D. CLIA NUMBER [id number] [place]. [id number] HEMOGLOBIN [id number] 04:57:47* Test Item Value Reference Range Interpretation Comme nts HEMOGLOBIN A1c (test code = 39793) 6.1 % 4.2-5.6 H TSH, THIRD [id number] 03:25:48* Test Item Value Reference Range Interpretation Comme nts TSH, THIRD GENERATION (test code = 2821) 2.310 UIU/ML 0.400-4.100 UNLESS OTHERWISE INDICATED, ALL TESTING PERFORMED [employer] [address] [place] [address] PAD MAKING MACHINE OPERATOR: EDVIN BENSON M.D. CLIA NUMBER [id number] [place]. [id number] TSH, THIRD [id number] 00:00:00* Test Item Value Reference Range Interpretation Comme nts TSH, THIRD GENERATION (test code = 2821) 2.310 UIU/ML TSH, THIRD [id number] 00:00:00* Test Item Value Reference Range Interpretation Comme nts TSH, THIRD GENERATION (test code = 2821) 2.310 UIU/ML TSH, THIRD [id number] 00:00:00* Test Item Value Reference Range Interpretation Comme nts TSH, THIRD GENERATION (test code = 2821) 2.310 UIU/ML [id number] 00:00:00* Test Item Value Reference Range Interpretation Comme nts 17-HYDROXYPROGESTERONE (test code = 4304) 45 ng/dL [id number] 00:00:00* Test Item Value Reference Range Interpretation Comme nts 17-HYDROXYPROGESTERONE (test code = 4304) 45 ng/dL 97-[id number] 00:00:00* Test Item Value Reference Range Interpretation Comme nts 17-HYDROXYPROGESTERONE (test code = 4304) 45 ng/dL 57-[id number] 00:00:00* Test Item Value Reference Range Interpretation Comme nts 17-HYDROXYPROGESTERONE (test code = 4304) 45 ng/dL FSH + LH [id number] 00:00:00* Test Item Value Reference Range Interpretation Comme nts FOLLICLE STIM HORMONE (test code = 2700) 4.3 IU/L LUTEINIZING HORMONE (test co de = 2776) 15.6 IU/L FSH + LH [id number] 00:00:00* Test Item Value Reference Range Interpretation Comme nts FOLLICLE STIM HORMONE (test code = 2700) 4.3 IU/L LUTEINIZING HORMONE (test co de = 2776) 15.6 IU/L [id number] 00:00:00* Test Item Value Reference Range Interpretation Comme nts PROLACTIN (test code = 2800) 17.7 NG/ML [id number] 00:00:00* Test Item Value Reference Range Interpretation Comme nts PROLACTIN (test code = 2800) 17.7 NG/ML TSH, THIRD [id number] 00:00:00* Test Item Value Reference Range Interpretation Comme nts TSH, THIRD GENERATION (test code = 2821) 1.790 UIU/ML TSH, THIRD [id number] 00:00:00* Test Item Value Reference Range Interpretation Comme nts TSH, THIRD GENERATION (test code = 2821) 1.790 UIU/ML TSH, THIRD [id number] 00:00:00* Test Item Value Reference Range Interpretation Comme nts TSH, THIRD GENERATION (test code = 2821) 1.790 UIU/ML FSH + LH [id number] 00:00:00* Test Item Value Reference Range Interpretation Comme nts FOLLICLE STIM HORMONE (test code = 2700) 4.3 IU/L LUTEINIZING HORMONE (test co de = 2776) 15.6 IU/L FSH + LH [id number] 00:00:00* Test Item Value Reference Range Interpretation Comme nts FOLLICLE STIM HORMONE (test code = 2700) 4.3 IU/L LUTEINIZING HORMONE (test co de = 2776) 15.6 IU/L [id number] 00:00:00* Test Item Value Reference Range Interpretation Comme nts PROLACTIN (test code = 2800) 17.7 NG/ML [id number] 00:00:00* Test Item Value Reference Range Interpretation Comme nts PROLACTIN (test code = 2800) 17.7 NG/ML TSH, THIRD [id number] 00:00:00* Test Item Value Reference Range Interpretation Comme nts TSH, THIRD GENERATION (test code = 2821) 1.790 UIU/ML TSH, THIRD [id number] 00:00:00* Test Item Value Reference Range Interpretation Comme nts TSH, THIRD GENERATION (test code = 2821) 1.790 UIU/ML TSH, THIRD [id number] 00:00:00* Test Item Value Reference Range Interpretation Comme nts TSH, THIRD GENERATION (test code = 2821) 1.790 UIU/ML TSH, THIRD [id number] 04:06:28* Test Item Value Reference Range Interpretation Comme nts TSH, THIRD GENERATION (test code = 2821) 4.000 UIU/ML 0.400-4.100 UNLESS OTHERWISE INDICATED, [facility] [address] [place] [address] PAD MAKING MACHINE OPERATOR: EDVIN BENSON M.D. CLIA NUMBER [id number] [facility] [place] [place]. [id number] TSH, THIRD [id number] 00:00:00* Test Item Value Reference Range Interpretation Comme nts TSH, THIRD GENERATION (test code = 2821) 4.000 UIU/ML TSH, THIRD [id number] 00:00:00* Test Item Value Reference Range Interpretation Comme nts TSH, THIRD GENERATION (test code = 2821) 4.000 UIU/ML TSH, THIRD [id number] 00:00:00* Test Item Value Reference Range Interpretation Comme nts TSH, THIRD GENERATION (test code = 2821) 4.000 UIU/ML TSH, THIRD [id number] 00:00:00* Test Item Value Reference Range Interpretation Comme nts TSH, THIRD GENERATION (test code = 2821) 4.000 UIU/ML TSH, THIRD [id number] 00:00:00* Test Item Value Reference Range Interpretation Comme nts TSH, THIRD GENERATION (test code = 2821) 4.000 UIU/ML TSH, THIRD [id number] 00:00:00* Test Item Value Reference Range Interpretation Comme nts TSH, THIRD GENERATION (test code = 2821) 4.000 UIU/ML TSH, THIRD [id number] 00:00:00* Test Item Value Reference Range Interpretation Comme nts TSH, THIRD GENERATION (test code = 2821) 4.000 UIU/ML TSH, THIRD [id number] 00:00:00* Test Item Value Reference Range Interpretation Comme nts TSH, THIRD GENERATION (test code = 2821) 4.000 UIU/ML TSH, THIRD [id number] 00:00:00* Test Item Value Reference Range Interpretation Comme nts TSH, THIRD GENERATION (test code = 2821) 4.000 UIU/ML TSH, THIRD [id number] 09:09:54* Test Item Value Reference Range Interpretation Comme nts TSH, THIRD GENERATION (test code = 2821) 9.840 UIU/ML 0.400-4.100 H UNLESS OTHERWISE INDICATED, ALL TESTING [facility] [address] [place] [address] PAD MAKING MACHINE OPERATOR: EDVIN BENSON M.D. CLIA NUMBER [id number] [facility] [place]. [id number] 00:00:00* Test Item Value Reference Range Interpretation Comme nts TSH, THIRD GENERATION (test code = 2821) 9.840 UIU/ML [id number] 00:00:00* Test Item Value Reference Range Interpretation Comme nts TSH, THIRD GENERATION (test code = 2821) 9.840 UIU/ML [id number] 00:00:00* Test Item Value Reference Range Interpretation Comme nts TSH, THIRD GENERATION (test code = 2821) 9.840 UIU/ML [id number] 00:00:00* Test Item Value Reference Range Interpretation Comme nts TSH, THIRD GENERATION (test code = 2821) 9.840 UIU/ML [id number] 00:00:00* Test Item Value Reference Range Interpretation Comme nts TSH, THIRD GENERATION (test code = 2821) 9.840 UIU/ML [id number] 00:00:00* Test Item Value Reference Range Interpretation Comme nts TSH, THIRD GENERATION (test code = 2821) 9.840 UIU/ML [id number] 00:00:00* Test Item Value Reference Range Interpretation Comme nts TSH, THIRD GENERATION (test code = 2821) 9.840 UIU/ML [id number] 00:00:00* Test Item Value Reference Range Interpretation Comme nts TSH, THIRD GENERATION (test code = 2821) 9.840 UIU/ML [id number] 00:00:00* Test Item Value Reference Range Interpretation Comme nts TSH, THIRD GENERATION (test code = 2821) 9.840 UIU/ML [id number] 00:00:00* Test Item Value Reference Range Interpretation Comme nts TSH, THIRD GENERATION (test code = 2821) 9.840 UIU/ML [id number] 00:00:00* Test Item Value Reference Range Interpretation Comme nts TSH, THIRD GENERATION (test code = 2821) 9.840 UIU/ML [id number] 00:00:00* Test Item Value Reference Range Interpretation Comme nts TSH, THIRD GENERATION (test code = 2821) 9.840 UIU/ML [id number] 00:00:00* Test Item Value Reference Range Interpretation Comme nts TSH, THIRD GENERATION (test code = 2821) 9.840 UIU/ML [id number] 00:00:00* Test Item Value Reference Range Interpretation Comme nts TSH, THIRD GENERATION (test code = 2821) 9.840 UIU/ML TSH, THIRD [id number] 05:03:02* Test Item Value Reference Range Interpretation Comme nts TSH, THIRD GENERATION (test code = 2821) 7.050 UIU/ML 0.400-4.100 H UNLESS OTHERWISE INDICATED, ALL TESTING PERFORMED [facility] [address] [place] [address] PAD MAKING MACHINE OPERATOR: EDVIN BENSON M.D. CLIA NUMBER [id number] [facility] [place]. [id number] 00:00:00* Test Item Value Reference Range Interpretation Comme nts TSH, THIRD GENERATION (test code = 2821) 7.050 UIU/ML [id number] 00:00:00* Test Item Value Reference Range Interpretation Comme nts TSH, THIRD GENERATION (test code = 2821) 7.050 UIU/ML [id number] 00:00:00* Test Item Value Reference Range Interpretation Comme nts TSH, THIRD GENERATION (test code = 2821) 7.050 UIU/ML [id number] 00:00:00* Test Item Value Reference Range Interpretation Comme nts TSH, THIRD GENERATION (test code = 2821) 7.050 UIU/ML [id number] 00:00:00* Test Item Value Reference Range Interpretation Comme nts TSH, THIRD GENERATION (test code = 2821) 7.050 UIU/ML [id number] 00:00:00* Test Item Value Reference Range Interpretation Comme nts TSH, THIRD GENERATION (test code = 2821) 7.050 UIU/ML [id number] 00:00:00* Test Item Value Reference Range Interpretation Comme nts TSH, THIRD GENERATION (test code = 2821) 7.050 UIU/ML [id number] 00:00:00* Test Item Value Reference Range Interpretation Comme nts TSH, THIRD GENERATION (test code = 2821) 7.050 UIU/ML [id number] 00:00:00* Test Item Value Reference Range Interpretation Comme nts TSH, THIRD GENERATION (test code = 2821) 7.050 UIU/ML [id number] 00:00:00* Test Item Value Reference Range Interpretation Comme nts TSH, THIRD GENERATION (test code = 2821) 7.050 UIU/ML [id number] 00:00:00* Test Item Value Reference Range Interpretation Comme nts TSH, THIRD GENERATION (test code = 2821) 7.050 UIU/ML [id number] 00:00:00* Test Item Value Reference Range Interpretation Comme nts TSH, THIRD GENERATION (test code = 2821) 7.050 UIU/ML [id number] 00:00:00* Test Item Value Reference Range Interpretation Comme nts TSH, THIRD GENERATION (test code = 2821) 7.050 UIU/ML [id number] 00:00:00* Test Item Value Reference Range Interpretation Comme [facility] TSH, THIRD GENERATION (test code = 2821) 7.050 UIU/ML CBC W/AUTO DIFF WITH [id number] 03:06:39* Test Item Value Reference Range Interpretation Comme [facility] WBC (test code = 1001) 11.0 K/UL 3.5-11.0 RBC (test code = 1002) 4.51 M/UL 3.80-5.40 HEMOGLOBIN (test code = 1003) 12.6 G/DL 11.5-15.5 HEMATOCRIT (test code = 1004) 37.7 % 34.0-45.0 MCV (test code = 1005) 83.6 fL 80.0-99.0 MCH (test code = 1006) 27.9 PG 25.0-33.0 MCHC (test code = 1007) 33.4 G/DL 31.0-36.0 RDW (test code = 1038) 13.2 % 11.5-15.0 NEUTROPHILS (test code = 1008) 64.1 % LYMPHOCYTES (test code = 1010) 26.7 % MONOCYTES (test code = 1011) 6.6 % EOSINOPHILS (test code = 1012) 1.8 % BASOPHILS (test code = 1013) 0.5 % IMMATURE GRANULOCYTES (test code = 1036) 0.3 % NUCLEATED RBCS (test code = 1065) 0.0 /100 WBC'S See_Comment [Automated message] The system which generated this result transmitted reference range: 0.0. The reference range was not used to interpret this result as normal/abnormal. PLATELET COUNT (test code = 1015) 303 K/UL 130-400 ABSOLUTE NEUTROPHILS (test code = 1066) 7.05 K/UL 1.50-7.50 ABSOLUTE LYMPHOCYTES (test code = 1067) 2.94 K/UL 1.00-4.00 ABSOLUTE MONOCYTES (test code = 1068) 0.73 K/UL 0.20-1.00 ABSOLUTE EOSINOPHILS (test code = 1040) 0.20 K/UL 0.00-0.50 ABSOLUTE BASOPHILS (test code = 1069) 0.05 K/UL 0.00-0.20 ABS IMMATURE GRANULOCYTES (test code = 1020) 0.03 K/UL 0.00-0.10 ABS NUCLEATED RBCS (test code = 49153) 0.00 K/UL 0.00-0.11 UNLESS OTHER JENSEN INDICATED, ALL TESTING PERFORMED [facility] [employer] [address] [place] [id number] [employer] OPERATOR: EDVIN BENSON M.D. CLIA NUMBER [id number] [facility] [place]. [id number] CBC W/AUTO [id number] 00:00:00* Test Item Value Reference Range Interpretation Comme nts WBC (test code = 1001) 11.0 K/UL [...] = 1013) 0.5 % IMMATURE GRANULOCYTES (test code = 1036) 0.3 % NUCLEATED RBCS (test code = 1065) 0.0 /100WBC'S PLATELET COUNT (test code = 1015) 303 K/UL ABSOLUTE NEUTROPHILS (test c ode = 1066) 7.05 K/UL ABSOLUTE LYMPHOCYTES (test c ode = 1067) 2.94 K/UL ABSOLUTE MONOCYTES (test cod e = 1068) 0.73 K/UL ABSOLUTE EOSINOPHILS (test c ode = 1040) 0.20 K/UL ABSOLUTE BASOPHILS (test cod e = 1069) 0.05 K/UL ABS IMMATURE GRANULOCYTES (t est code = 1020) 0.03 K/UL ABS NUCLEATED RBCS (test cod e = [id number]) 0.00 K/UL CBC W/AUTO [id number] 00:00:00* Test Item Value Reference Range Interpretation Comme nts WBC (test code = 1001) 11.0 K/UL [...] = 1013) 0.5 % IMMATURE GRANULOCYTES (test code = 1036) 0.3 % NUCLEATED RBCS (test code = 1065) 0.0 /100WBC'S PLATELET COUNT (test code = 1015) 303 K/UL ABSOLUTE NEUTROPHILS (test c ode = 1066) 7.05 K/UL ABSOLUTE LYMPHOCYTES (test c ode = 1067) 2.94 K/UL ABSOLUTE MONOCYTES (test cod e = 1068) 0.73 K/UL ABSOLUTE EOSINOPHILS (test c ode = 1040) 0.20 K/UL ABSOLUTE BASOPHILS (test cod e = 1069) 0.05 K/UL ABS IMMATURE GRANULOCYTES (t est code = 1020) 0.03 K/UL ABS NUCLEATED RBCS (test cod e = 48582) 0.00 K/UL CBC W/AUTO [id number] 00:00:00* Test Item Value Reference Range Interpretation Comme nts WBC (test code = 1001) 11.0 K/UL [...] = 1013) 0.5 % IMMATURE GRANULOCYTES (test code = 1036) 0.3 % NUCLEATED RBCS (test code = 1065) 0.0 /100WBC'S PLATELET COUNT (test code = 1015) 303 K/UL ABSOLUTE NEUTROPHILS (test c ode = 1066) 7.05 K/UL ABSOLUTE LYMPHOCYTES (test c ode = 1067) 2.94 K/UL ABSOLUTE MONOCYTES (test cod e = 1068) 0.73 K/UL ABSOLUTE EOSINOPHILS (test c ode = 1040) 0.20 K/UL ABSOLUTE BASOPHILS (test cod e = 1069) 0.05 K/UL ABS IMMATURE GRANULOCYTES (t est code = 1020) 0.03 K/UL ABS NUCLEATED RBCS (test cod e = 37600) 0.00 K/UL CBC W/AUTO [id number] 00:00:00* Test Item Value Reference Range Interpretation Comme nts WBC (test code = 1001) 11.0 K/UL [...] = 1013) 0.5 % IMMATURE GRANULOCYTES (test code = 1036) 0.3 % NUCLEATED RBCS (test code = 1065) 0.0 /100WBC'S PLATELET COUNT (test code = 1015) 303 K/UL ABSOLUTE NEUTROPHILS (test c ode = 1066) 7.05 K/UL ABSOLUTE LYMPHOCYTES (test c ode = 1067) 2.94 K/UL ABSOLUTE MONOCYTES (test cod e = 1068) 0.73 K/UL ABSOLUTE EOSINOPHILS (test c ode = 1040) 0.20 K/UL ABSOLUTE BASOPHILS (test cod e = 1069) 0.05 K/UL ABS IMMATURE GRANULOCYTES (t est code = 1020) 0.03 K/UL ABS NUCLEATED RBCS (test cod e = 10397) 0.00 K/UL CBC W/AUTO [id number] 00:00:00* Test Item Value Reference Range Interpretation Comme nts WBC (test code = 1001) 11.0 K/UL [...] = 1013) 0.5 % IMMATURE GRANULOCYTES (test code = 1036) 0.3 % NUCLEATED RBCS (test code = 1065) 0.0 /100WBC'S PLATELET COUNT (test code = 1015) 303 K/UL ABSOLUTE NEUTROPHILS (test c ode = 1066) 7.05 K/UL ABSOLUTE LYMPHOCYTES (test c ode = 1067) 2.94 K/UL ABSOLUTE MONOCYTES (test cod e = 1068) 0.73 K/UL ABSOLUTE EOSINOPHILS (test c ode = 1040) 0.20 K/UL ABSOLUTE BASOPHILS (test cod e = 1069) 0.05 K/UL ABS IMMATURE GRANULOCYTES (t est code = 1020) 0.03 K/UL ABS NUCLEATED RBCS (test cod e = 21540) 0.00 K/UL CBC W/AUTO [id number] 00:00:00* Test Item Value Reference Range Interpretation Comme nts WBC (test code = 1001) 11.0 K/UL [...] = 1013) 0.5 % IMMATURE GRANULOCYTES (test code = 1036) 0.3 % NUCLEATED RBCS (test code = 1065) 0.0 /100WBC'S PLATELET COUNT (test code = 1015) 303 K/UL ABSOLUTE NEUTROPHILS (test c ode = 1066) 7.05 K/UL ABSOLUTE LYMPHOCYTES (test c ode = 1067) 2.94 K/UL ABSOLUTE MONOCYTES (test cod e = 1068) 0.73 K/UL ABSOLUTE EOSINOPHILS (test c ode = 1040) 0.20 K/UL ABSOLUTE BASOPHILS (test cod e = 1069) 0.05 K/UL ABS IMMATURE GRANULOCYTES (t est code = 1020) 0.03 K/UL ABS NUCLEATED RBCS (test cod e = 05962) 0.00 K/UL CBC W/AUTO [id number] 00:00:00* Test Item Value Reference Range Interpretation Comme nts WBC (test code = 1001) 11.0 K/UL [...] = 1013) 0.5 % IMMATURE GRANULOCYTES (test code = 1036) 0.3 % NUCLEATED RBCS (test code = 1065) 0.0 /100WBC'S PLATELET COUNT (test code = 1015) 303 K/UL ABSOLUTE NEUTROPHILS (test c ode = 1066) 7.05 K/UL ABSOLUTE LYMPHOCYTES (test c ode = 1067) 2.94 K/UL ABSOLUTE MONOCYTES (test cod e = 1068) 0.73 K/UL ABSOLUTE EOSINOPHILS (test c ode = 1040) 0.20 K/UL ABSOLUTE BASOPHILS (test cod e = 1069) 0.05 K/UL ABS IMMATURE GRANULOCYTES (t est code = 1020) 0.03 K/UL ABS NUCLEATED RBCS (test cod e = 26739) 0.00 K/UL CBC W/AUTO [id number] 00:00:00* Test Item Value Reference Range Interpretation Comme nts WBC (test code = 1001) 11.0 K/UL [...] = 1013) 0.5 % IMMATURE GRANULOCYTES (test code = 1036) 0.3 % NUCLEATED RBCS (test code = 1065) 0.0 /100WBC'S PLATELET COUNT (test code = 1015) 303 K/UL ABSOLUTE NEUTROPHILS (test c ode = 1066) 7.05 K/UL ABSOLUTE LYMPHOCYTES (test c ode = 1067) 2.94 K/UL ABSOLUTE MONOCYTES (test cod e = 1068) 0.73 K/UL ABSOLUTE EOSINOPHILS (test c ode = 1040) 0.20 K/UL ABSOLUTE BASOPHILS (test cod e = 1069) 0.05 K/UL ABS IMMATURE GRANULOCYTES (t est code = 1020) 0.03 K/UL ABS NUCLEATED RBCS (test cod e = 83287) 0.00 K/UL CBC W/AUTO [id number] 00:00:00* Test Item Value Reference Range Interpretation Comme nts WBC (test code = 1001) 11.0 K/UL [...] = 1013) 0.5 % IMMATURE GRANULOCYTES (test code = 1036) 0.3 % NUCLEATED RBCS (test code = 1065) 0.0 /100WBC'S PLATELET COUNT (test code = 1015) 303 K/UL ABSOLUTE NEUTROPHILS (test c ode = 1066) 7.05 K/UL ABSOLUTE LYMPHOCYTES (test c ode = 1067) 2.94 K/UL ABSOLUTE MONOCYTES (test cod e = 1068) 0.73 K/UL ABSOLUTE EOSINOPHILS (test c ode = 1040) 0.20 K/UL ABSOLUTE BASOPHILS (test cod e = 1069) 0.05 K/UL ABS IMMATURE GRANULOCYTES (t est code = 1020) 0.03 K/UL ABS NUCLEATED RBCS (test cod e = 09595) 0.00 K/UL CBC W/AUTO [id number] 00:00:00* Test Item Value Reference Range Interpretation Comme nts WBC (test code = 1001) 11.0 K/UL [...] = 1013) 0.5 % IMMATURE GRANULOCYTES (test code = 1036) 0.3 % NUCLEATED RBCS (test code = 1065) 0.0 /100WBC'S PLATELET COUNT (test code = 1015) 303 K/UL ABSOLUTE NEUTROPHILS (test c ode = 1066) 7.05 K/UL ABSOLUTE LYMPHOCYTES (test c ode = 1067) 2.94 K/UL ABSOLUTE MONOCYTES (test cod e = 1068) 0.73 K/UL ABSOLUTE EOSINOPHILS (test c ode = 1040) 0.20 K/UL ABSOLUTE BASOPHILS (test cod e = 1069) 0.05 K/UL ABS IMMATURE GRANULOCYTES (t est code = 1020) 0.03 K/UL ABS NUCLEATED RBCS (test cod e = 31201) 0.00 K/UL CBC W/AUTO [id number] 00:00:00* Test Item Value Reference Range Interpretation Comme nts WBC (test code = 1001) 11.0 K/UL [...] = 1013) 0.5 % IMMATURE GRANULOCYTES (test code = 1036) 0.3 % NUCLEATED RBCS (test code = 1065) 0.0 /100WBC'S PLATELET COUNT (test code = 1015) 303 K/UL ABSOLUTE NEUTROPHILS (test c ode = 1066) 7.05 K/UL ABSOLUTE LYMPHOCYTES (test c ode = 1067) 2.94 K/UL ABSOLUTE MONOCYTES (test cod e = 1068) 0.73 K/UL ABSOLUTE EOSINOPHILS (test c ode = 1040) 0.20 K/UL ABSOLUTE BASOPHILS (test cod e = 1069) 0.05 K/UL ABS IMMATURE GRANULOCYTES (t est code = 1020) 0.03 K/UL ABS NUCLEATED RBCS (test cod e = 41779) 0.00 K/UL CBC W/AUTO [id number] 00:00:00* Test Item Value Reference Range Interpretation Comme nts WBC (test code = 1001) 11.0 K/UL [...] = 1013) 0.5 % IMMATURE GRANULOCYTES (test code = 1036) 0.3 % NUCLEATED RBCS (test code = 1065) 0.0 /100WBC'S PLATELET COUNT (test code = 1015) 303 K/UL ABSOLUTE NEUTROPHILS (test c ode = 1066) 7.05 K/UL ABSOLUTE LYMPHOCYTES (test c ode = 1067) 2.94 K/UL ABSOLUTE MONOCYTES (test cod e = 1068) 0.73 K/UL ABSOLUTE EOSINOPHILS (test c ode = 1040) 0.20 K/UL ABSOLUTE BASOPHILS (test cod e = 1069) 0.05 K/UL ABS IMMATURE GRANULOCYTES (t est code = 1020) 0.03 K/UL ABS NUCLEATED RBCS (test cod e = 58227) 0.00 K/UL CBC W/AUTO [id number] 00:00:00* Test Item Value Reference Range Interpretation Comme nts WBC (test code = 1001) 11.0 K/UL [...] = 1013) 0.5 % IMMATURE GRANULOCYTES (test code = 1036) 0.3 % NUCLEATED RBCS (test code = 1065) 0.0 /100WBC'S PLATELET COUNT (test code = 1015) 303 K/UL ABSOLUTE NEUTROPHILS (test c ode = 1066) 7.05 K/UL ABSOLUTE LYMPHOCYTES (test c ode = 1067) 2.94 K/UL ABSOLUTE MONOCYTES (test cod e = 1068) 0.73 K/UL ABSOLUTE EOSINOPHILS (test c ode = 1040) 0.20 K/UL ABSOLUTE BASOPHILS (test cod e = 1069) 0.05 K/UL ABS IMMATURE GRANULOCYTES (t est code = 1020) 0.03 K/UL ABS NUCLEATED RBCS (test cod e = 05531) 0.00 K/UL CBC W/AUTO [id number] 00:00:00* Test Item Value Reference Range Interpretation Comme nts WBC (test code = 1001) 11.0 K/UL [...] = 1013) 0.5 % IMMATURE GRANULOCYTES (test code = 1036) 0.3 % NUCLEATED RBCS (test code = 1065) 0.0 /100WBC'S PLATELET COUNT (test code = 1015) 303 K/UL ABSOLUTE NEUTROPHILS (test c ode = 1066) 7.05 K/UL ABSOLUTE LYMPHOCYTES (test c ode = 1067) 2.94 K/UL ABSOLUTE MONOCYTES (test cod e = 1068) 0.73 K/UL ABSOLUTE EOSINOPHILS (test c ode = 1040) 0.20 K/UL ABSOLUTE BASOPHILS (test cod e = 1069) 0.05 K/UL ABS IMMATURE GRANULOCYTES (t est code = 1020) 0.03 K/UL ABS NUCLEATED RBCS (test cod e = 72509) 0.00 K/UL CBC W/AUTO DIFF WITH [id number] 10:01:09* Test Item Value Reference Range Interpretation Comme nts WBC (test code = 1001) TEST NOT PERFORMED K/UL 3.5-11.0 Unable to perform testing, specimen not received.Charges adjusted as applicable. RBC (test code = 1002) TEST NOT PERFORMED M/UL 3.80-5.40 HEMOGLOBIN (test code = 1003) TEST NOT PERFORMED G/DL 11.5-15.5 HEMATOCRIT (test code = 1004) TEST NOT PERFORMED % 34.0-45.0 MCV (test code = 1005) TEST NOT PERFORMED fL 80.0-99.0 MCH (test code = 1006) TEST NOT PERFORMED PG 25.0-33.0 MCHC (test code = 1007) TEST NOT PERFORMED G/DL 31.0-36.0 RDW (test code = 1038) TEST NOT PERFORMED % 11.5-15.0 NEUTROPHILS (test code = 1008) TEST NOT PERFORMED % BANDS (test code = 1009) TEST NOT PERFORMED % 0.0-8.0 LYMPHOCYTES (test code = 1010) TEST NOT PERFORMED % MONOCYTES (test code = 1011) TEST NOT PERFORMED % EOSINOPHILS (test code = 1012) TEST NOT PERFORMED % BASOPHILS (test code = 1013) TEST NOT PERFORMED % IMMATURE GRANULOCYTES (test code = 1036) TEST NOT PERFORMED % METAMYELOCYTES (test code = 1061) TEST NOT PERFORMED % See_Comment [Automated message] The system which generated this result transmitted reference range: 0.0. The reference range was not used to interpret this result as normal/abnormal. MYELOCYTES (test code = 1062) TEST NOT PERFORMED % See_Comment [Automated message] The system which generated this result transmitted reference range: 0.0. The reference range was not used to interpret this result as normal/abnormal. PROMYELOCYTES (test code = 1063) TEST NOT PERFORMED % See_Comment [Automated message] The system which generated this result transmitted reference range: 0.0. The reference range was not used to interpret this result as normal/abnormal. BLASTS (test code = 1064) TEST NOT PERFORMED % See_Comment [Automated message] The system which generated this result transmitted reference range: 0.0. The reference range was not used to interpret this result as normal/abnormal. NUCLEATED RBCS (test code = 1065) TEST NOT PERFORMED /100 WBC'S See_Comment [Automated message] The system which generated this result transmitted reference range: 0.0. The reference range was not used to interpret this result as normal/abnormal. PLATELET COUNT (test code = 1015) TEST NOT PERFORMED K/UL 130-400 ABSOLUTE NEUTROPHILS (test code = 1066) TEST NOT PERFORMED K/UL 1.50-7.50 ABSOLUTE LYMPHOCYTES (test code = 1067) TEST NOT PERFORMED K/UL 1.00-4.00 ABSOLUTE MONOCYTES (test code = 1068) TEST NOT PERFORMED K/UL 0.20-1.00 ABSOLUTE EOSINOPHILS (test code = 1040) TEST NOT PERFORMED K/UL 0.00-0.50 ABSOLUTE BASOPHILS (test code = 1069) TEST NOT PERFORMED K/UL 0.00-0.20 ABS IMMATURE GRANULOCYTES (test code = 1020) TEST NOT PERFORMED K/UL 0.00-0.10 ABS NUCLEATED RBCS (test code = 14490) TEST NOT PERFORMED K/UL 0.00-0.11 COMMENTS (test code = 1016) TEST NOT PERFORMED CBC W/AUTO [id number] 00:00:00* Test Item Value Reference Range Interpretation Comme nts WBC (test code = 1001) TEST NOT PERFORME D K/UL RBC (test code = 1002) TEST NOT PERFORME D M/UL HEMOGLOBIN (test code = 1003) TEST NOT PERFORMED G/DL HEMATOCRIT (test code = 1004) TEST NOT PERFORMED % MCV (test code = 1005) TEST NOT PERFORME D fL MCH (test code = 1006) TEST NOT PERFORME D PG MCHC (test code = 1007) TEST NOT PERFORM ED G/DL RDW (test code = 1038) TEST NOT PERFORMED % NEUTROPHILS (test code = 1008) TEST NOT PERFORMED % BANDS (test code = 1009) TEST NOT PERFORMED % LYMPHOCYTES (test code = 1010) TEST NOT PERFORMED % MONOCYTES (test code = 1011) TEST NOT PERFORMED % EOSINOPHILS (test code = 1012) TEST NOT PERFORMED % BASOPHILS (test code = 1013) TEST NOT PERFORMED % IMMATURE GRANULOCYTES (test code = 1036) TEST NOT PERFORMED % METAMYELOCYTES (test code = 1061) TEST NOT PERFORMED % MYELOCYTES (test code = 1062) TEST NOT PERFORMED % PROMYELOCYTES (test code = 1063) TEST NOT PERFORMED % BLASTS (test code = 1064) TEST NOT PERFORMED % NUCLEATED RBCS (test code = 1065) TEST NOT PERFORMED /100WBC'S PLATELET COUNT (test code = 1015) TEST NOT PERFORMED K/UL ABSOLUTE NEUTROPHILS (test code = 1066) TEST NOT PERFORMED K/UL ABSOLUTE LYMPHOCYTES (test code = 1067) TEST NOT PERFORMED K/UL ABSOLUTE MONOCYTES (test code = 1068) TEST NOT PERFORMED K/UL ABSOLUTE EOSINOPHILS (test code = 1040) TEST NOT PERFORMED K/UL ABSOLUTE BASOPHILS (test code = 1069) TEST NOT PERFORMED K/UL ABS IMMATURE GRANULOCYTES (test code = 1020) TEST NOT PERFORMED K/UL ABS NUCLEATED RBCS (test code = 59541) TEST NOT PERFORMED K/UL COMMENTS (test code = 1016) TEST NOT PERFORMED CBC W/AUTO [id number] 00:00:00* Test Item Value Reference Range Interpretation Comme nts WBC (test code = 1001) TEST NOT PERFORME D K/UL RBC (test code = 1002) TEST NOT PERFORME D M/UL HEMOGLOBIN (test code = 1003) TEST NOT PERFORMED G/DL HEMATOCRIT (test code = 1004) TEST NOT PERFORMED % MCV (test code = 1005) TEST NOT PERFORME D fL MCH (test code = 1006) TEST NOT PERFORME D PG MCHC (test code = 1007) TEST NOT PERFORM ED G/DL RDW (test code = 1038) TEST NOT PERFORMED % NEUTROPHILS (test code = 1008) TEST NOT PERFORMED % BANDS (test code = 1009) TEST NOT PERFORMED % LYMPHOCYTES (test code = 1010) TEST NOT PERFORMED % MONOCYTES (test code = 1011) TEST NOT PERFORMED % EOSINOPHILS (test code = 1012) TEST NOT PERFORMED % BASOPHILS (test code = 1013) TEST NOT PERFORMED % IMMATURE GRANULOCYTES (test code = 1036) TEST NOT PERFORMED % METAMYELOCYTES (test code = 1061) TEST NOT PERFORMED % MYELOCYTES (test code = 1062) TEST NOT PERFORMED % PROMYELOCYTES (test code = 1063) TEST NOT PERFORMED % BLASTS (test code = 1064) TEST NOT PERFORMED % NUCLEATED RBCS (test code = 1065) TEST NOT PERFORMED /100WBC'S PLATELET COUNT (test code = 1015) TEST NOT PERFORMED K/UL ABSOLUTE NEUTROPHILS (test code = 1066) TEST NOT PERFORMED K/UL ABSOLUTE LYMPHOCYTES (test code = 1067) TEST NOT PERFORMED K/UL ABSOLUTE MONOCYTES (test code = 1068) TEST NOT PERFORMED K/UL ABSOLUTE EOSINOPHILS (test code = 1040) TEST NOT PERFORMED K/UL ABSOLUTE BASOPHILS (test code = 1069) TEST NOT PERFORMED K/UL ABS IMMATURE GRANULOCYTES (test code = 1020) TEST NOT PERFORMED K/UL ABS NUCLEATED RBCS (test code = 58592) TEST NOT PERFORMED K/UL COMMENTS (test code = 1016) TEST NOT PERFORMED CBC W/AUTO [id number] 00:00:00* Test Item Value Reference Range Interpretation Comme nts WBC (test code = 1001) TEST NOT PERFORME D K/UL RBC (test code = 1002) TEST NOT PERFORME D M/UL HEMOGLOBIN (test code = 1003) TEST NOT PERFORMED G/DL HEMATOCRIT (test code = 1004) TEST NOT PERFORMED % MCV (test code = 1005) TEST NOT PERFORME D fL MCH (test code = 1006) TEST NOT PERFORME D PG MCHC (test code = 1007) TEST NOT PERFORM ED G/DL RDW (test code = 1038) TEST NOT PERFORMED % NEUTROPHILS (test code = 1008) TEST NOT PERFORMED % BANDS (test code = 1009) TEST NOT PERFORMED % LYMPHOCYTES (test code = 1010) TEST NOT PERFORMED % MONOCYTES (test code = 1011) TEST NOT PERFORMED % EOSINOPHILS (test code = 1012) TEST NOT PERFORMED % BASOPHILS (test code = 1013) TEST NOT PERFORMED % IMMATURE GRANULOCYTES (test code = 1036) TEST NOT PERFORMED % METAMYELOCYTES (test code = 1061) TEST NOT PERFORMED % MYELOCYTES (test code = 1062) TEST NOT PERFORMED % PROMYELOCYTES (test code = 1063) TEST NOT PERFORMED % BLASTS (test code = 1064) TEST NOT PERFORMED % NUCLEATED RBCS (test code = 1065) TEST NOT PERFORMED /100WBC'S PLATELET COUNT (test code = 1015) TEST NOT PERFORMED K/UL ABSOLUTE NEUTROPHILS (test code = 1066) TEST NOT PERFORMED K/UL ABSOLUTE LYMPHOCYTES (test code = 1067) TEST NOT PERFORMED K/UL ABSOLUTE MONOCYTES (test code = 1068) TEST NOT PERFORMED K/UL ABSOLUTE EOSINOPHILS (test code = 1040) TEST NOT PERFORMED K/UL ABSOLUTE BASOPHILS (test code = 1069) TEST NOT PERFORMED K/UL ABS IMMATURE GRANULOCYTES (test code = 1020) TEST NOT PERFORMED K/UL ABS NUCLEATED RBCS (test code = 40785) TEST NOT PERFORMED K/UL COMMENTS (test code = 1016) TEST NOT PERFORMED CBC W/AUTO [id number] 00:00:00* Test Item Value Reference Range Interpretation Comme nts WBC (test code = 1001) TEST NOT PERFORME D K/UL RBC (test code = 1002) TEST NOT PERFORME D M/UL HEMOGLOBIN (test code = 1003) TEST NOT PERFORMED G/DL HEMATOCRIT (test code = 1004) TEST NOT PERFORMED % MCV (test code = 1005) TEST NOT PERFORME D fL MCH (test code = 1006) TEST NOT PERFORME D PG MCHC (test code = 1007) TEST NOT PERFORM ED G/DL RDW (test code = 1038) TEST NOT PERFORMED % NEUTROPHILS (test code = 1008) TEST NOT PERFORMED % BANDS (test code = 1009) TEST NOT PERFORMED % LYMPHOCYTES (test code = 1010) TEST NOT PERFORMED % MONOCYTES (test code = 1011) TEST NOT PERFORMED % EOSINOPHILS (test code = 1012) TEST NOT PERFORMED % BASOPHILS (test code = 1013) TEST NOT PERFORMED % IMMATURE GRANULOCYTES (test code = 1036) TEST NOT PERFORMED % METAMYELOCYTES (test code = 1061) TEST NOT PERFORMED % MYELOCYTES (test code = 1062) TEST NOT PERFORMED % PROMYELOCYTES (test code = 1063) TEST NOT PERFORMED % BLASTS (test code = 1064) TEST NOT PERFORMED % NUCLEATED RBCS (test code = 1065) TEST NOT PERFORMED /100WBC'S PLATELET COUNT (test code = 1015) TEST NOT PERFORMED K/UL ABSOLUTE NEUTROPHILS (test code = 1066) TEST NOT PERFORMED K/UL ABSOLUTE LYMPHOCYTES (test code = 1067) TEST NOT PERFORMED K/UL ABSOLUTE MONOCYTES (test code = 1068) TEST NOT PERFORMED K/UL ABSOLUTE EOSINOPHILS (test code = 1040) TEST NOT PERFORMED K/UL ABSOLUTE BASOPHILS (test code = 1069) TEST NOT PERFORMED K/UL ABS IMMATURE GRANULOCYTES (test code = 1020) TEST NOT PERFORMED K/UL ABS NUCLEATED RBCS (test code = 28102) TEST NOT PERFORMED K/UL COMMENTS (test code = 1016) TEST NOT PERFORMED CBC W/AUTO [id number] 00:00:00* Test Item Value Reference Range Interpretation Comme nts WBC (test code = 1001) TEST NOT PERFORME D K/UL RBC (test code = 1002) TEST NOT PERFORME D M/UL HEMOGLOBIN (test code = 1003) TEST NOT PERFORMED G/DL HEMATOCRIT (test code = 1004) TEST NOT PERFORMED % MCV (test code = 1005) TEST NOT PERFORME D fL MCH (test code = 1006) TEST NOT PERFORME D PG MCHC (test code = 1007) TEST NOT PERFORM ED G/DL RDW (test code = 1038) TEST NOT PERFORMED % NEUTROPHILS (test code = 1008) TEST NOT PERFORMED % BANDS (test code = 1009) TEST NOT PERFORMED % LYMPHOCYTES (test code = 1010) TEST NOT PERFORMED % MONOCYTES (test code = 1011) TEST NOT PERFORMED % EOSINOPHILS (test code = 1012) TEST NOT PERFORMED % BASOPHILS (test code = 1013) TEST NOT PERFORMED % IMMATURE GRANULOCYTES (test code = 1036) TEST NOT PERFORMED % METAMYELOCYTES (test code = 1061) TEST NOT PERFORMED % MYELOCYTES (test code = 1062) TEST NOT PERFORMED % PROMYELOCYTES (test code = 1063) TEST NOT PERFORMED % BLASTS (test code = 1064) TEST NOT PERFORMED % NUCLEATED RBCS (test code = 1065) TEST NOT PERFORMED /100WBC'S PLATELET COUNT (test code = 1015) TEST NOT PERFORMED K/UL ABSOLUTE NEUTROPHILS (test code = 1066) TEST NOT PERFORMED K/UL ABSOLUTE LYMPHOCYTES (test code = 1067) TEST NOT PERFORMED K/UL ABSOLUTE MONOCYTES (test code = 1068) TEST NOT PERFORMED K/UL ABSOLUTE EOSINOPHILS (test code = 1040) TEST NOT PERFORMED K/UL ABSOLUTE BASOPHILS (test code = 1069) TEST NOT PERFORMED K/UL ABS IMMATURE GRANULOCYTES (test code = 1020) TEST NOT PERFORMED K/UL ABS NUCLEATED RBCS (test code = 31504) TEST NOT PERFORMED K/UL COMMENTS (test code = 1016) TEST NOT PERFORMED CBC W/AUTO [id number] 00:00:00* Test Item Value Reference Range Interpretation Comme nts WBC (test code = 1001) TEST NOT PERFORME D K/UL RBC (test code = 1002) TEST NOT PERFORME D M/UL HEMOGLOBIN (test code = 1003) TEST NOT PERFORMED G/DL HEMATOCRIT (test code = 1004) TEST NOT PERFORMED % MCV (test code = 1005) TEST NOT PERFORME D fL MCH (test code = 1006) TEST NOT PERFORME D PG MCHC (test code = 1007) TEST NOT PERFORM ED G/DL RDW (test code = 1038) TEST NOT PERFORMED % NEUTROPHILS (test code = 1008) TEST NOT PERFORMED % BANDS (test code = 1009) TEST NOT PERFORMED % LYMPHOCYTES (test code = 1010) TEST NOT PERFORMED % MONOCYTES (test code = 1011) TEST NOT PERFORMED % EOSINOPHILS (test code = 1012) TEST NOT PERFORMED % BASOPHILS (test code = 1013) TEST NOT PERFORMED % IMMATURE GRANULOCYTES (test code = 1036) TEST NOT PERFORMED % METAMYELOCYTES (test code = 1061) TEST NOT PERFORMED % MYELOCYTES (test code = 1062) TEST NOT PERFORMED % PROMYELOCYTES (test code = 1063) TEST NOT PERFORMED % BLASTS (test code = 1064) TEST NOT PERFORMED % NUCLEATED RBCS (test code = 1065) TEST NOT PERFORMED /100WBC'S PLATELET COUNT (test code = 1015) TEST NOT PERFORMED K/UL ABSOLUTE NEUTROPHILS (test code = 1066) TEST NOT PERFORMED K/UL ABSOLUTE LYMPHOCYTES (test code = 1067) TEST NOT PERFORMED K/UL ABSOLUTE MONOCYTES (test code = 1068) TEST NOT PERFORMED K/UL ABSOLUTE EOSINOPHILS (test code = 1040) TEST NOT PERFORMED K/UL ABSOLUTE BASOPHILS (test code = 1069) TEST NOT PERFORMED K/UL ABS IMMATURE GRANULOCYTES (test code = 1020) TEST NOT PERFORMED K/UL ABS NUCLEATED RBCS (test code = 49073) TEST NOT PERFORMED K/UL COMMENTS (test code = 1016) TEST NOT PERFORMED CBC W/AUTO [id number] 00:00:00* Test Item Value Reference Range Interpretation Comme nts WBC (test code = 1001) TEST NOT PERFORME D K/UL RBC (test code = 1002) TEST NOT PERFORME D M/UL HEMOGLOBIN (test code = 1003) TEST NOT PERFORMED G/DL HEMATOCRIT (test code = 1004) TEST NOT PERFORMED % MCV (test code = 1005) TEST NOT PERFORME D fL MCH (test code = 1006) TEST NOT PERFORME D PG MCHC (test code = 1007) TEST NOT PERFORM ED G/DL RDW (test code = 1038) TEST NOT PERFORMED % NEUTROPHILS (test code = 1008) TEST NOT PERFORMED % BANDS (test code = 1009) TEST NOT PERFORMED % LYMPHOCYTES (test code = 1010) TEST NOT PERFORMED % MONOCYTES (test code = 1011) TEST NOT PERFORMED % EOSINOPHILS (test code = 1012) TEST NOT PERFORMED % BASOPHILS (test code = 1013) TEST NOT PERFORMED % IMMATURE GRANULOCYTES (test code = 1036) TEST NOT PERFORMED % METAMYELOCYTES (test code = 1061) TEST NOT PERFORMED % MYELOCYTES (test code = 1062) TEST NOT PERFORMED % PROMYELOCYTES (test code = 1063) TEST NOT PERFORMED % BLASTS (test code = 1064) TEST NOT PERFORMED % NUCLEATED RBCS (test code = 1065) TEST NOT PERFORMED /100WBC'S PLATELET COUNT (test code = 1015) TEST NOT PERFORMED K/UL ABSOLUTE NEUTROPHILS (test code = 1066) TEST NOT PERFORMED K/UL ABSOLUTE LYMPHOCYTES (test code = 1067) TEST NOT PERFORMED K/UL ABSOLUTE MONOCYTES (test code = 1068) TEST NOT PERFORMED K/UL ABSOLUTE EOSINOPHILS (test code = 1040) TEST NOT PERFORMED K/UL ABSOLUTE BASOPHILS (test code = 1069) TEST NOT PERFORMED K/UL ABS IMMATURE GRANULOCYTES (test code = 1020) TEST NOT PERFORMED K/UL ABS NUCLEATED RBCS (test code = 38144) TEST NOT PERFORMED K/UL COMMENTS (test code = 1016) TEST NOT PERFORMED CBC W/AUTO [id number] 00:00:00* Test Item Value Reference Range Interpretation Comme nts WBC (test code = 1001) TEST NOT PERFORME D K/UL RBC (test code = 1002) TEST NOT PERFORME D M/UL HEMOGLOBIN (test code = 1003) TEST NOT PERFORMED G/DL HEMATOCRIT (test code = 1004) TEST NOT PERFORMED % MCV (test code = 1005) TEST NOT PERFORME D fL MCH (test code = 1006) TEST NOT PERFORME D PG MCHC (test code = 1007) TEST NOT PERFORM ED G/DL RDW (test code = 1038) TEST NOT PERFORMED % NEUTROPHILS (test code = 1008) TEST NOT PERFORMED % BANDS (test code = 1009) TEST NOT PERFORMED % LYMPHOCYTES (test code = 1010) TEST NOT PERFORMED % MONOCYTES (test code = 1011) TEST NOT PERFORMED % EOSINOPHILS (test code = 1012) TEST NOT PERFORMED % BASOPHILS (test code = 1013) TEST NOT PERFORMED % IMMATURE GRANULOCYTES (test code = 1036) TEST NOT PERFORMED % METAMYELOCYTES (test code = 1061) TEST NOT PERFORMED % MYELOCYTES (test code = 1062) TEST NOT PERFORMED % PROMYELOCYTES (test code = 1063) TEST NOT PERFORMED % BLASTS (test code = 1064) TEST NOT PERFORMED % NUCLEATED RBCS (test code = 1065) TEST NOT PERFORMED /100WBC'S PLATELET COUNT (test code = 1015) TEST NOT PERFORMED K/UL ABSOLUTE NEUTROPHILS (test code = 1066) TEST NOT PERFORMED K/UL ABSOLUTE LYMPHOCYTES (test code = 1067) TEST NOT PERFORMED K/UL ABSOLUTE MONOCYTES (test code = 1068) TEST NOT PERFORMED K/UL ABSOLUTE EOSINOPHILS (test code = 1040) TEST NOT PERFORMED K/UL ABSOLUTE BASOPHILS (test code = 1069) TEST NOT PERFORMED K/UL ABS IMMATURE GRANULOCYTES (test code = 1020) TEST NOT PERFORMED K/UL ABS NUCLEATED RBCS (test code = 49026) TEST NOT PERFORMED K/UL COMMENTS (test code = 1016) TEST NOT PERFORMED CBC W/AUTO [id number] 00:00:00* Test Item Value Reference Range Interpretation Comme nts WBC (test code = 1001) TEST NOT PERFORME D K/UL RBC (test code = 1002) TEST NOT PERFORME D M/UL HEMOGLOBIN (test code = 1003) TEST NOT PERFORMED G/DL HEMATOCRIT (test code = 1004) TEST NOT PERFORMED % MCV (test code = 1005) TEST NOT PERFORME D fL MCH (test code = 1006) TEST NOT PERFORME D PG MCHC (test code = 1007) TEST NOT PERFORM ED G/DL RDW (test code = 1038) TEST NOT PERFORMED % NEUTROPHILS (test code = 1008) TEST NOT PERFORMED % BANDS (test code = 1009) TEST NOT PERFORMED % LYMPHOCYTES (test code = 1010) TEST NOT PERFORMED % MONOCYTES (test code = 1011) TEST NOT PERFORMED % EOSINOPHILS (test code = 1012) TEST NOT PERFORMED % BASOPHILS (test code = 1013) TEST NOT PERFORMED % IMMATURE GRANULOCYTES (test code = 1036) TEST NOT PERFORMED % METAMYELOCYTES (test code = 1061) TEST NOT PERFORMED % MYELOCYTES (test code = 1062) TEST NOT PERFORMED % PROMYELOCYTES (test code = 1063) TEST NOT PERFORMED % BLASTS (test code = 1064) TEST NOT PERFORMED % NUCLEATED RBCS (test code = 1065) TEST NOT PERFORMED /100WBC'S PLATELET COUNT (test code = 1015) TEST NOT PERFORMED K/UL ABSOLUTE NEUTROPHILS (test code = 1066) TEST NOT PERFORMED K/UL ABSOLUTE LYMPHOCYTES (test code = 1067) TEST NOT PERFORMED K/UL ABSOLUTE MONOCYTES (test code = 1068) TEST NOT PERFORMED K/UL ABSOLUTE EOSINOPHILS (test code = 1040) TEST NOT PERFORMED K/UL ABSOLUTE BASOPHILS (test code = 1069) TEST NOT PERFORMED K/UL ABS IMMATURE GRANULOCYTES (test code = 1020) TEST NOT PERFORMED K/UL ABS NUCLEATED RBCS (test code = 81913) TEST NOT PERFORMED K/UL COMMENTS (test code = 1016) TEST NOT PERFORMED CBC W/AUTO [id number] 00:00:00* Test Item Value Reference Range Interpretation Comme nts WBC (test code = 1001) TEST NOT PERFORME D K/UL RBC (test code = 1002) TEST NOT PERFORME D M/UL HEMOGLOBIN (test code = 1003) TEST NOT PERFORMED G/DL HEMATOCRIT (test code = 1004) TEST NOT PERFORMED % MCV (test code = 1005) TEST NOT PERFORME D fL MCH (test code = 1006) TEST NOT PERFORME D PG MCHC (test code = 1007) TEST NOT PERFORM ED G/DL RDW (test code = 1038) TEST NOT PERFORMED % NEUTROPHILS (test code = 1008) TEST NOT PERFORMED % BANDS (test code = 1009) TEST NOT PERFORMED % LYMPHOCYTES (test code = 1010) TEST NOT PERFORMED % MONOCYTES (test code = 1011) TEST NOT PERFORMED % EOSINOPHILS (test code = 1012) TEST NOT PERFORMED % BASOPHILS (test code = 1013) TEST NOT PERFORMED % IMMATURE GRANULOCYTES (test code = 1036) TEST NOT PERFORMED % METAMYELOCYTES (test code = 1061) TEST NOT PERFORMED % MYELOCYTES (test code = 1062) TEST NOT PERFORMED % PROMYELOCYTES (test code = 1063) TEST NOT PERFORMED % BLASTS (test code = 1064) TEST NOT PERFORMED % NUCLEATED RBCS (test code = 1065) TEST NOT PERFORMED /100WBC'S PLATELET COUNT (test code = 1015) TEST NOT PERFORMED K/UL ABSOLUTE NEUTROPHILS (test code = 1066) TEST NOT PERFORMED K/UL ABSOLUTE LYMPHOCYTES (test code = 1067) TEST NOT PERFORMED K/UL ABSOLUTE MONOCYTES (test code = 1068) TEST NOT PERFORMED K/UL ABSOLUTE EOSINOPHILS (test code = 1040) TEST NOT PERFORMED K/UL ABSOLUTE BASOPHILS (test code = 1069) TEST NOT PERFORMED K/UL ABS IMMATURE GRANULOCYTES (test code = 1020) TEST NOT PERFORMED K/UL ABS NUCLEATED RBCS (test code = 77175) TEST NOT PERFORMED K/UL COMMENTS (test code = 1016) TEST NOT PERFORMED CBC W/AUTO [id number] 00:00:00* Test Item Value Reference Range Interpretation Comme nts WBC (test code = 1001) TEST NOT PERFORME D K/UL RBC (test code = 1002) TEST NOT PERFORME D M/UL HEMOGLOBIN (test code = 1003) TEST NOT PERFORMED G/DL HEMATOCRIT (test code = 1004) TEST NOT PERFORMED % MCV (test code = 1005) TEST NOT PERFORME D fL MCH (test code = 1006) TEST NOT PERFORME D PG MCHC (test code = 1007) TEST NOT PERFORM ED G/DL RDW (test code = 1038) TEST NOT PERFORMED % NEUTROPHILS (test code = 1008) TEST NOT PERFORMED % BANDS (test code = 1009) TEST NOT PERFORMED % LYMPHOCYTES (test code = 1010) TEST NOT PERFORMED % MONOCYTES (test code = 1011) TEST NOT PERFORMED % EOSINOPHILS (test code = 1012) TEST NOT PERFORMED % BASOPHILS (test code = 1013) TEST NOT PERFORMED % IMMATURE GRANULOCYTES (test code = 1036) TEST NOT PERFORMED % METAMYELOCYTES (test code = 1061) TEST NOT PERFORMED % MYELOCYTES (test code = 1062) TEST NOT PERFORMED % PROMYELOCYTES (test code = 1063) TEST NOT PERFORMED % BLASTS (test code = 1064) TEST NOT PERFORMED % NUCLEATED RBCS (test code = 1065) TEST NOT PERFORMED /100WBC'S PLATELET COUNT (test code = 1015) TEST NOT PERFORMED K/UL ABSOLUTE NEUTROPHILS (test code = 1066) TEST NOT PERFORMED K/UL ABSOLUTE LYMPHOCYTES (test code = 1067) TEST NOT PERFORMED K/UL ABSOLUTE MONOCYTES (test code = 1068) TEST NOT PERFORMED K/UL ABSOLUTE EOSINOPHILS (test code = 1040) TEST NOT PERFORMED K/UL ABSOLUTE BASOPHILS (test code = 1069) TEST NOT PERFORMED K/UL ABS IMMATURE GRANULOCYTES (test code = 1020) TEST NOT PERFORMED K/UL ABS NUCLEATED RBCS (test code = 01257) TEST NOT PERFORMED K/UL COMMENTS (test code = 1016) TEST NOT PERFORMED CBC W/AUTO [id number] 00:00:00* Test Item Value Reference Range Interpretation Comme nts WBC (test code = 1001) TEST NOT PERFORME D K/UL RBC (test code = 1002) TEST NOT PERFORME D M/UL HEMOGLOBIN (test code = 1003) TEST NOT PERFORMED G/DL HEMATOCRIT (test code = 1004) TEST NOT PERFORMED % MCV (test code = 1005) TEST NOT PERFORME D fL MCH (test code = 1006) TEST NOT PERFORME D PG MCHC (test code = 1007) TEST NOT PERFORM ED G/DL RDW (test code = 1038) TEST NOT PERFORMED % NEUTROPHILS (test code = 1008) TEST NOT PERFORMED % BANDS (test code = 1009) TEST NOT PERFORMED % LYMPHOCYTES (test code = 1010) TEST NOT PERFORMED % MONOCYTES (test code = 1011) TEST NOT PERFORMED % EOSINOPHILS (test code = 1012) TEST NOT PERFORMED % BASOPHILS (test code = 1013) TEST NOT PERFORMED % IMMATURE GRANULOCYTES (test code = 1036) TEST NOT PERFORMED % METAMYELOCYTES (test code = 1061) TEST NOT PERFORMED % MYELOCYTES (test code = 1062) TEST NOT PERFORMED % PROMYELOCYTES (test code = 1063) TEST NOT PERFORMED % BLASTS (test code = 1064) TEST NOT PERFORMED % NUCLEATED RBCS (test code = 1065) TEST NOT PERFORMED /100WBC'S PLATELET COUNT (test code = 1015) TEST NOT PERFORMED K/UL ABSOLUTE NEUTROPHILS (test code = 1066) TEST NOT PERFORMED K/UL ABSOLUTE LYMPHOCYTES (test code = 1067) TEST NOT PERFORMED K/UL ABSOLUTE MONOCYTES (test code = 1068) TEST NOT PERFORMED K/UL ABSOLUTE EOSINOPHILS (test code = 1040) TEST NOT PERFORMED K/UL ABSOLUTE BASOPHILS (test code = 1069) TEST NOT PERFORMED K/UL ABS IMMATURE GRANULOCYTES (test code = 1020) TEST NOT PERFORMED K/UL ABS NUCLEATED RBCS (test code = 54063) TEST NOT PERFORMED K/UL COMMENTS (test code = 1016) TEST NOT PERFORMED CBC W/AUTO [id number] 00:00:00* Test Item Value Reference Range Interpretation Comme nts WBC (test code = 1001) TEST NOT PERFORME D K/UL RBC (test code = 1002) TEST NOT PERFORME D M/UL HEMOGLOBIN (test code = 1003) TEST NOT PERFORMED G/DL HEMATOCRIT (test code = 1004) TEST NOT PERFORMED % MCV (test code = 1005) TEST NOT PERFORME D fL MCH (test code = 1006) TEST NOT PERFORME D PG MCHC (test code = 1007) TEST NOT PERFORM ED G/DL RDW (test code = 1038) TEST NOT PERFORMED % NEUTROPHILS (test code = 1008) TEST NOT PERFORMED % BANDS (test code = 1009) TEST NOT PERFORMED % LYMPHOCYTES (test code = 1010) TEST NOT PERFORMED % MONOCYTES (test code = 1011) TEST NOT PERFORMED % EOSINOPHILS (test code = 1012) TEST NOT PERFORMED % BASOPHILS (test code = 1013) TEST NOT PERFORMED % IMMATURE GRANULOCYTES (test code = 1036) TEST NOT PERFORMED % METAMYELOCYTES (test code = 1061) TEST NOT PERFORMED % MYELOCYTES (test code = 1062) TEST NOT PERFORMED % PROMYELOCYTES (test code = 1063) TEST NOT PERFORMED % BLASTS (test code = 1064) TEST NOT PERFORMED % NUCLEATED RBCS (test code = 1065) TEST NOT PERFORMED /100WBC'S PLATELET COUNT (test code = 1015) TEST NOT PERFORMED K/UL ABSOLUTE NEUTROPHILS (test code = 1066) TEST NOT PERFORMED K/UL ABSOLUTE LYMPHOCYTES (test code = 1067) TEST NOT PERFORMED K/UL ABSOLUTE MONOCYTES (test code = 1068) TEST NOT PERFORMED K/UL ABSOLUTE EOSINOPHILS (test code = 1040) TEST NOT PERFORMED K/UL ABSOLUTE BASOPHILS (test code = 1069) TEST NOT PERFORMED K/UL ABS IMMATURE GRANULOCYTES (test code = 1020) TEST NOT PERFORMED K/UL ABS NUCLEATED RBCS (test code = 81669) TEST NOT PERFORMED K/UL COMMENTS (test code = 1016) TEST NOT PERFORMED CBC W/AUTO [id number] 00:00:00* Test Item Value Reference Range Interpretation Comme nts WBC (test code = 1001) TEST NOT PERFORME D K/UL RBC (test code = 1002) TEST NOT PERFORME D M/UL HEMOGLOBIN (test code = 1003) TEST NOT PERFORMED G/DL HEMATOCRIT (test code = 1004) TEST NOT PERFORMED % MCV (test code = 1005) TEST NOT PERFORME D fL MCH (test code = 1006) TEST NOT PERFORME D PG MCHC (test code = 1007) TEST NOT PERFORM ED G/DL RDW (test code = 1038) TEST NOT PERFORMED % NEUTROPHILS (test code = 1008) TEST NOT PERFORMED % BANDS (test code = 1009) TEST NOT PERFORMED % LYMPHOCYTES (test code = 1010) TEST NOT PERFORMED % MONOCYTES (test code = 1011) TEST NOT PERFORMED % EOSINOPHILS (test code = 1012) TEST NOT PERFORMED % BASOPHILS (test code = 1013) TEST NOT PERFORMED % IMMATURE GRANULOCYTES (test code = 1036) TEST NOT PERFORMED % METAMYELOCYTES (test code = 1061) TEST NOT PERFORMED % MYELOCYTES (test code = 1062) TEST NOT PERFORMED % PROMYELOCYTES (test code = 1063) TEST NOT PERFORMED % BLASTS (test code = 1064) TEST NOT PERFORMED % NUCLEATED RBCS (test code = 1065) TEST NOT PERFORMED /100WBC'S PLATELET COUNT (test code = 1015) TEST NOT PERFORMED K/UL ABSOLUTE NEUTROPHILS (test code = 1066) TEST NOT PERFORMED K/UL ABSOLUTE LYMPHOCYTES (test code = 1067) TEST NOT PERFORMED K/UL ABSOLUTE MONOCYTES (test code = 1068) TEST NOT PERFORMED K/UL ABSOLUTE EOSINOPHILS (test code = 1040) TEST NOT PERFORMED K/UL ABSOLUTE BASOPHILS (test code = 1069) TEST NOT PERFORMED K/UL ABS IMMATURE GRANULOCYTES (test code = 1020) TEST NOT PERFORMED K/UL ABS NUCLEATED RBCS (test code = 74787) TEST NOT PERFORMED K/UL COMMENTS (test code = 1016) TEST NOT PERFORMED TSH, THIRD [id number] 06:29:33* Test Item Value Reference Range Interpretation Comme nts TSH, THIRD GENERATION (test code = 2821) 7.090 UIU/ML 0.400-4.100 H UNLESS OTHERWISE INDICATED, ALL TESTING PERFORMED [facility] [address] [place] [address] PAD MAKING MACHINE OPERATOR: EDVIN BENSON M.D. CLIA NUMBER [id number] [facility] [place]. [id number] LIPID [id number] 04:58:53* Test Item Value Reference Range Interpretation Comme nts CHOLESTEROL (test code = 2210) 235 MG/DL <200 H TRIGLYCERIDES (test code = 2232) 127 MG/DL <150 HDL CHOLESTEROL (test code = 2220) 46 MG/DL >39 CALC LDL CHOL (test code = 2237) 164 MG/DL <100 H NOTE: CALCULATED LDL IS BASED ON MARGARITA-CRUM METHOD WHICHINCLUDES ADJUSTABLE TRIGLYCERIDE:VLDL CHOLESTEROL RATIO.THIS FACTOR VARIES BY MEASURED TRIGLYCERIDE AND NON-HDLCHOLESTEROL CONCENTRATIONS WITH INCREASED CALCULATED LDL SEENIN HIGHER TRIGLYCERIDE OR LOWER NON-HDL SPECIMENS. FOR MOREINFORMATION, SEE CLIENT ANNOUNCEMENT AT [email or web address] RISK RATIO LDL/HDL (test code = 2238) 3.57 RATIO <3.22 H COMPREHENSIVE METABOLIC [id number] 04:58:53* Test Item Value Reference Range Interpretation Comme nts GLUCOSE (test code = 2217) 85 MG/DL 70-99 BUN (test code = 2208) 12 MG/DL 6-20 CREATININE (test code = 2214) 0.59 MG/DL 0.60-1.30 L eGFR (2020 CKD-EPI) (test code = 61877) 123 ML/MIN/1.73 >60 CALC BUN/CREAT (test code = 2235) 20 RATIO 6-28 SODIUM (test code = 223) 141 MEQ/L 133-146 POTASSIUM (test code = 2228) 4.5 MEQ/L 3.5-5.4 CHLORIDE (test code = 2215) 103 MEQ/L 95-107 CARBON DIOXIDE (test code = 2206) 25 MEQ/L 19-31 CALCIUM (test code = 2209) 9.3 MG/DL 8.5-10.5 PROTEIN, TOTAL (test code = 2229) 6.6 G/DL 6.1-8.3 ALBUMIN (test code = 2201) 4.2 G/DL 3.5-5.2 CALC GLOBULIN (test code = 2240) 2.4 G/DL 1.9-3.7 CALC A/G RATIO (test code = 2234) 1.8 RATIO 1.0-2.6 BILIRUBIN, TOTAL (test code = 2207) <0.2 MG/DL See_Comment [Automated me ssage] The system which generated this result transmitted reference range: <=1.2. The reference range was not used to interpret this result as normal/abnormal. ALKALINE PHOSPHATASE (test code = 2204) 89 U/L 40-114 AST (test code = 2218) 12 U/L 9-40 ALT (test code = 2219) 16 U/L 5-40 LIPID [id number] 00:00:00* Test Item Value Reference Range Interpretation Comme nts CHOLESTEROL (test code = 2210) 235 MG/DL TRIGLYCERIDES (test code = 2232) 127 MG/DL HDL CHOLESTEROL (test code = 2220) 46 MG/DL CALC LDL CHOL (test code = 2237) 164 MG/DL RISK RATIO LDL/HDL (test cod e = 2238) 3.57 RATIO LIPID [id number] 00:00:00* Test Item Value Reference Range Interpretation Comme nts CHOLESTEROL (test code = 2210) 235 MG/DL TRIGLYCERIDES (test code = 2232) 127 MG/DL HDL CHOLESTEROL (test code = 2220) 46 MG/DL CALC LDL CHOL (test code = 2237) 164 MG/DL RISK RATIO LDL/HDL (test cod e = 2238) 3.57 RATIO COMPREHENSIVE METABOLIC [id number] 00:00:00* Test Item Value Reference Range Interpretation Comme nts GLUCOSE (test code = 2217) 85 MG/DL BUN (test code = 2208) 12 MG/DL CREATININE (test code = 2214) 0.59 MG/DL eGFR (2020 CKD-EPI) (test code = 80431) 123 ML/MIN/1.73 CALC BUN/CREAT (test code = 2235) 20 RATIO SODIUM (test code = 2231) 141 MEQ/L POTASSIUM (test code = 2228) 4.5 MEQ/L CHLORIDE (test code = 2215) 103 MEQ/L CARBON DIOXIDE (test code = 2206) 25 MEQ/L CALCIUM (test code = 2209) 9.3 MG/DL PROTEIN, TOTAL (test code = 2229) 6.6 G/DL ALBUMIN (test code = 2201) 4.2 G/DL CALC GLOBULIN (test code = 2240) 2.4 G/DL CALC A/G RATIO (test code = 2234) 1.8 RATIO BILIRUBIN, TOTAL (test code = 2207) <0.2 MG/DL ALKALINE PHOSPHATASE (test code = 2204) 89 U/L AST (test code = 2218) 12 U/L ALT (test code = 2219) 16 U/L COMPREHENSIVE METABOLIC [id number] 00:00:00* Test Item Value Reference Range Interpretation Comme nts GLUCOSE (test code = 2217) 85 MG/DL BUN (test code = 2208) 12 MG/DL CREATININE (test code = 2214) 0.59 MG/DL eGFR (2020 CKD-EPI) (test code = 63942) 123 ML/MIN/1.73 CALC BUN/CREAT (test code = 2235) 20 RATIO SODIUM (test code = 2231) 141 MEQ/L POTASSIUM (test code = 2228) 4.5 MEQ/L CHLORIDE (test code = 2215) 103 MEQ/L CARBON DIOXIDE (test code = 2206) 25 MEQ/L CALCIUM (test code = 2209) 9.3 MG/DL PROTEIN, TOTAL (test code = 2229) 6.6 G/DL ALBUMIN (test code = 2201) 4.2 G/DL CALC GLOBULIN (test code = 2240) 2.4 G/DL CALC A/G RATIO (test code = 2234) 1.8 RATIO BILIRUBIN, TOTAL (test code = 2207) <0.2 MG/DL ALKALINE PHOSPHATASE (test code = 2204) 89 U/L AST (test code = 2218) 12 U/L ALT (test code = 2219) 16 U/L [id number] 00:00:00* Test Item Value Reference Range Interpretation Comme nts TSH, THIRD GENERATION (test code = 2821) 7.090 UIU/ML [id number] 00:00:00* Test Item Value Reference Range Interpretation Comme nts TSH, THIRD GENERATION (test code = 2821) 7.090 UIU/ML [id number] 00:00:00* Test Item Value Reference Range Interpretation Comme nts TSH, THIRD GENERATION (test code = 2821) 7.090 UIU/ML LIPID [id number] 00:00:00* Test Item Value Reference Range Interpretation Comme nts CHOLESTEROL (test code = 2210) 235 MG/DL TRIGLYCERIDES (test code = 2232) 127 MG/DL HDL CHOLESTEROL (test code = 2220) 46 MG/DL CALC LDL CHOL (test code = 2237) 164 MG/DL RISK RATIO LDL/HDL (test cod e = 2238) 3.57 RATIO LIPID [id number] 00:00:00* Test Item Value Reference Range Interpretation Comme nts CHOLESTEROL (test code = 2210) 235 MG/DL TRIGLYCERIDES (test code = 2232) 127 MG/DL HDL CHOLESTEROL (test code = 2220) 46 MG/DL CALC LDL CHOL (test code = 2237) 164 MG/DL RISK RATIO LDL/HDL (test cod e = 2238) 3.57 RATIO COMPREHENSIVE METABOLIC [id number] 00:00:00* Test Item Value Reference Range Interpretation Comme nts GLUCOSE (test code = 2217) 85 MG/DL BUN (test code = 2208) 12 MG/DL CREATININE (test code = 2214) 0.59 MG/DL eGFR (2020 CKD-EPI) (test code = 27245) 123 ML/MIN/1.73 CALC BUN/CREAT (test code = 2235) 20 RATIO SODIUM (test code = 2231) 141 MEQ/L POTASSIUM (test code = 2228) 4.5 MEQ/L CHLORIDE (test code = 2215) 103 MEQ/L CARBON DIOXIDE (test code = 2206) 25 MEQ/L CALCIUM (test code = 2209) 9.3 MG/DL PROTEIN, TOTAL (test code = 2229) 6.6 G/DL ALBUMIN (test code = 2201) 4.2 G/DL CALC GLOBULIN (test code = 2240) 2.4 G/DL CALC A/G RATIO (test code = 2234) 1.8 RATIO BILIRUBIN, TOTAL (test code = 2207) <0.2 MG/DL ALKALINE PHOSPHATASE (test code = 2204) 89 U/L AST (test code = 2218) 12 U/L ALT (test code = 2219) 16 U/L COMPREHENSIVE METABOLIC [id number] 00:00:00* Test Item Value Reference Range Interpretation Comme nts GLUCOSE (test code = 2217) 85 MG/DL BUN (test code = 2208) 12 MG/DL CREATININE (test code = 2214) 0.59 MG/DL eGFR (2020 CKD-EPI) (test code = 38117) 123 ML/MIN/1.73 CALC BUN/CREAT (test code = 2235) 20 RATIO SODIUM (test code = 2231) 141 MEQ/L POTASSIUM (test code = 2228) 4.5 MEQ/L CHLORIDE (test code = 2215) 103 MEQ/L CARBON DIOXIDE (test code = 2206) 25 MEQ/L CALCIUM (test code = 2209) 9.3 MG/DL PROTEIN, TOTAL (test code = 2229) 6.6 G/DL ALBUMIN (test code = 2201) 4.2 G/DL CALC GLOBULIN (test code = 2240) 2.4 G/DL CALC A/G RATIO (test code = 2234) 1.8 RATIO BILIRUBIN, TOTAL (test code = 2207) <0.2 MG/DL ALKALINE PHOSPHATASE (test code = 2204) 89 U/L AST (test code = 2218) 12 U/L ALT (test code = 2219) 16 U/L [id number] 00:00:00* Test Item Value Reference Range Interpretation Comme nts TSH, THIRD GENERATION (test code = 2821) 7.090 UIU/ML [id number] 00:00:00* Test Item Value Reference Range Interpretation Comme nts TSH, THIRD GENERATION (test code = 2821) 7.090 UIU/ML [id number] 00:00:00* Test Item Value Reference Range Interpretation Comme nts TSH, THIRD GENERATION (test code = 2821) 7.090 UIU/ML LIPID [id number] 00:00:00* Test Item Value Reference Range Interpretation Comme nts CHOLESTEROL (test code = 2210) 235 MG/DL TRIGLYCERIDES (test code = 2232) 127 MG/DL HDL CHOLESTEROL (test code = 2220) 46 MG/DL CALC LDL CHOL (test code = 2237) 164 MG/DL RISK RATIO LDL/HDL (test cod e = 2238) 3.57 RATIO COMPREHENSIVE METABOLIC [id number] 00:00:00* Test Item Value Reference Range Interpretation Comme nts GLUCOSE (test code = 2217) 85 MG/DL BUN (test code = 2208) 12 MG/DL CREATININE (test code = 2214) 0.59 MG/DL eGFR (2020 CKD-EPI) (test code = 23513) 123 ML/MIN/1.73 CALC BUN/CREAT (test code = 2235) 20 RATIO SODIUM (test code = 2231) 141 MEQ/L POTASSIUM (test code = 2228) 4.5 MEQ/L CHLORIDE (test code = 2215) 103 MEQ/L CARBON DIOXIDE (test code = 2206) 25 MEQ/L CALCIUM (test code = 2209) 9.3 MG/DL PROTEIN, TOTAL (test code = 2229) 6.6 G/DL ALBUMIN (test code = 2201) 4.2 G/DL CALC GLOBULIN (test code = 2240) 2.4 G/DL CALC A/G RATIO (test code = 2234) 1.8 RATIO BILIRUBIN, TOTAL (test code = 2207) <0.2 MG/DL ALKALINE PHOSPHATASE (test code = 2204) 89 U/L AST (test code = 2218) 12 U/L ALT (test code = 2219) 16 U/L [id number] 00:00:00* Test Item Value Reference Range Interpretation Comme nts TSH, THIRD GENERATION (test code = 2821) 7.090 UIU/ML [id number] 00:00:00* Test Item Value Reference Range Interpretation Comme nts TSH, THIRD GENERATION (test code = 2821) 7.090 UIU/ML LIPID [id number] 00:00:00* Test Item Value Reference Range Interpretation Comme nts CHOLESTEROL (test code = 2210) 235 MG/DL TRIGLYCERIDES (test code = 2232) 127 MG/DL HDL CHOLESTEROL (test code = 2220) 46 MG/DL CALC LDL CHOL (test code = 2237) 164 MG/DL RISK RATIO LDL/HDL (test cod e = 2238) 3.57 RATIO LIPID [id number] 00:00:00* Test Item Value Reference Range Interpretation Comme nts CHOLESTEROL (test code = 2210) 235 MG/DL TRIGLYCERIDES (test code = 2232) 127 MG/DL HDL CHOLESTEROL (test code = 2220) 46 MG/DL CALC LDL CHOL (test code = 2237) 164 MG/DL RISK RATIO LDL/HDL (test cod e = 2238) 3.57 RATIO COMPREHENSIVE METABOLIC [id number] 00:00:00* Test Item Value Reference Range Interpretation Comme nts GLUCOSE (test code = 2217) 85 MG/DL BUN (test code = 2208) 12 MG/DL CREATININE (test code = 2214) 0.59 MG/DL eGFR (2020 CKD-EPI) (test code = 65367) 123 ML/MIN/1.73 CALC BUN/CREAT (test code = 2235) 20 RATIO SODIUM (test code = 2231) 141 MEQ/L POTASSIUM (test code = 2228) 4.5 MEQ/L CHLORIDE (test code = 2215) 103 MEQ/L CARBON DIOXIDE (test code = 2206) 25 MEQ/L CALCIUM (test code = 2209) 9.3 MG/DL PROTEIN, TOTAL (test code = 2229) 6.6 G/DL ALBUMIN (test code = 2201) 4.2 G/DL CALC GLOBULIN (test code = 2240) 2.4 G/DL CALC A/G RATIO (test code = 2234) 1.8 RATIO BILIRUBIN, TOTAL (test code = 2207) <0.2 MG/DL ALKALINE PHOSPHATASE (test code = 2204) 89 U/L AST (test code = 2218) 12 U/L ALT (test code = 2219) 16 U/L COMPREHENSIVE METABOLIC [id number] 00:00:00* Test Item Value Reference Range Interpretation Comme nts GLUCOSE (test code = 2217) 85 MG/DL BUN (test code = 2208) 12 MG/DL CREATININE (test code = 2214) 0.59 MG/DL eGFR (2020 CKD-EPI) (test code = 01845) 123 ML/MIN/1.73 CALC BUN/CREAT (test code = 2235) 20 RATIO SODIUM (test code = 2231) 141 MEQ/L POTASSIUM (test code = 2228) 4.5 MEQ/L CHLORIDE (test code = 2215) 103 MEQ/L CARBON DIOXIDE (test code = 2206) 25 MEQ/L CALCIUM (test code = 2209) 9.3 MG/DL PROTEIN, TOTAL (test code = 2229) 6.6 G/DL ALBUMIN (test code = 2201) 4.2 G/DL CALC GLOBULIN (test code = 2240) 2.4 G/DL CALC A/G RATIO (test code = 2234) 1.8 RATIO BILIRUBIN, TOTAL (test code = 2207) <0.2 MG/DL ALKALINE PHOSPHATASE (test code = 2204) 89 U/L AST (test code = 2218) 12 U/L ALT (test code = 2219) 16 U/L [id number] 00:00:00* Test Item Value Reference Range Interpretation Comme nts TSH, THIRD GENERATION (test code = 2821) 7.090 UIU/ML [id number] 00:00:00* Test Item Value Reference Range Interpretation Comme nts TSH, THIRD GENERATION (test code = 2821) 7.090 UIU/ML [id number] 00:00:00* Test Item Value Reference Range Interpretation Comme nts TSH, THIRD GENERATION (test code = 2821) 7.090 UIU/ML LIPID [id number] 00:00:00* Test Item Value Reference Range Interpretation Comme nts CHOLESTEROL (test code = 2210) 235 MG/DL TRIGLYCERIDES (test code = 2232) 127 MG/DL HDL CHOLESTEROL (test code = 2220) 46 MG/DL CALC LDL CHOL (test code = 2237) 164 MG/DL RISK RATIO LDL/HDL (test cod e = 2238) 3.57 RATIO LIPID [id number] 00:00:00* Test Item Value Reference Range Interpretation Comme nts CHOLESTEROL (test code = 2210) 235 MG/DL TRIGLYCERIDES (test code = 2232) 127 MG/DL HDL CHOLESTEROL (test code = 2220) 46 MG/DL CALC LDL CHOL (test code = 2237) 164 MG/DL RISK RATIO LDL/HDL (test cod e = 2238) 3.57 RATIO COMPREHENSIVE METABOLIC [id number] 00:00:00* Test Item Value Reference Range Interpretation Comme nts GLUCOSE (test code = 2217) 85 MG/DL BUN (test code = 2208) 12 MG/DL CREATININE (test code = 2214) 0.59 MG/DL eGFR (2020 CKD-EPI) (test code = 94551) 123 ML/MIN/1.73 CALC BUN/CREAT (test code = 2235) 20 RATIO SODIUM (test code = 2231) 141 MEQ/L POTASSIUM (test code = 2228) 4.5 MEQ/L CHLORIDE (test code = 2215) 103 MEQ/L CARBON DIOXIDE (test code = 2206) 25 MEQ/L CALCIUM (test code = 2209) 9.3 MG/DL PROTEIN, TOTAL (test code = 2229) 6.6 G/DL ALBUMIN (test code = 2201) 4.2 G/DL CALC GLOBULIN (test code = 2240) 2.4 G/DL CALC A/G RATIO (test code = 2234) 1.8 RATIO BILIRUBIN, TOTAL (test code = 2207) <0.2 MG/DL ALKALINE PHOSPHATASE (test code = 2204) 89 U/L AST (test code = 2218) 12 U/L ALT (test code = 2219) 16 U/L COMPREHENSIVE METABOLIC [id number] 00:00:00* Test Item Value Reference Range Interpretation Comme nts GLUCOSE (test code = 2217) 85 MG/DL BUN (test code = 2208) 12 MG/DL CREATININE (test code = 2214) 0.59 MG/DL eGFR (2020 CKD-EPI) (test code = 52213) 123 ML/MIN/1.73 CALC BUN/CREAT (test code = 2235) 20 RATIO SODIUM (test code = 2231) 141 MEQ/L POTASSIUM (test code = 2228) 4.5 MEQ/L CHLORIDE (test code = 2215) 103 MEQ/L CARBON DIOXIDE (test code = 2206) 25 MEQ/L CALCIUM (test code = 2209) 9.3 MG/DL PROTEIN, TOTAL (test code = 2229) 6.6 G/DL ALBUMIN (test code = 2201) 4.2 G/DL CALC GLOBULIN (test code = 2240) 2.4 G/DL CALC A/G RATIO (test code = 2234) 1.8 RATIO BILIRUBIN, TOTAL (test code = 2207) <0.2 MG/DL ALKALINE PHOSPHATASE (test code = 2204) 89 U/L AST (test code = 8) 12 U/L ALT (test code = 2219) 16 U/L [id number] 00:00:00* Test Item Value Reference Range Interpretation Comme nts TSH, THIRD GENERATION (test code = 2821) 7.090 UIU/ML [id number] 00:00:00* Test Item Value Reference Range Interpretation Comme nts TSH, THIRD GENERATION (test code = 2821) 7.090 UIU/ML [id number] 00:00:00* Test Item Value Reference Range Interpretation Comme nts TSH, THIRD GENERATION (test code = 2821) 7.090 UIU/ML TROPONIN [id number] 21:03:34* Test Item Value Reference Range Interpretation Comments TROPONIN I (test code = 3897032503) 0.000 ng/mL See_Comment [Automated message] The system which generated this result transmitted reference range: <=0.034. The reference range was not used to interpret this result as normal/abnormal. MACI (test code = MACI) Reference (Normal) Range (defined by the 99th percentile reference [...] to patient's use of biotin. Lab Interpretation (test code = 73065-4) [id number] 20:45:29* Test Item Value Reference Range Interpretation Comments D-DIMER (test code = 4978249782) See_Comment [Automated message] The system which generated this result transmitted reference range: <0.41 ?g/mL (FEU). The reference range was not used to interpret this result as normal/abnormal. MACI (test code = MACI) This test may be used in conjunction with a clinical pretest [...] context, in forming a diagnosis. Lab Interpretation (test code = 01646-0) [facility] [id number] 19:14:30* Test Item Value Reference Range Interpretation Comme nts WBC (test code = 6690-2) See_Comment [Automated [employer]] The system which generated this result transmitted reference range: 4.30 - 11.10 10*3/?L. The reference range was not used to interpret this result as normal/abnormal. RBC (test code = 789-8) See_Comment [Automated [employer]] The system which generated this result transmitted reference range: 3.93 - 5.25 10*6/?L. The reference range was not used to interpret this result as normal/abnormal. HGB (test code = 718-7) 13.5 g/dL 11.6-15.0 HCT (test code = 4544-3) 42.0 % 35.7-45.2 MCV (test code = 787-2) 88.1 fL 80.6-95.5 MCH (test code = 785-6) 28.3 pg 25.9-32.8 MCHC (test code = 786-4) 32.1 g/dL 31.6-35.1 RDW-SD (test code = 50350-5) 42.2 fL 39.0-49.9 RDW-CV (test code = 788-0) 13.1 % 12.0-15.5 PLT (test code = 777-3) See_Comment [Automated messa ge] The system which generated this result transmitted reference range: 166 - 358 10*3/?L. The reference range was not used to interpret this result as normal/abnormal. MPV (test code = 08564-8) 9.6 fL 9.5-12.9 NRBC/100 WBC (test code = 4718056918) See_Comment [Automated [employer]] The system which generated this result transmitted reference range: 0.0 - 10.0 /100 WBCs. The reference range was not used to interpret this result as normal/abnormal. NRBC x10^3 (test code = 8045494613) <0.01 See_Comment [Automated messa ge] The system which generated this result transmitted reference range: 10*3/?L. The reference range was not used to interpret this result as normal/abnormal. GRAN MAT (NEUT) % (test code = 770-8) 43.7 % IMM GRAN % (test code = 2859406860) 0.50 % LYMPH % (test code = 736-9) 46.2 % MONO % (test code = 5905-5) 6.2 % EOS % (test code = 713-8) 2.8 % BASO % (test code = 706-2) 0.6 % GRAN MAT x10^3(ANC) (test code = 9349436966) 4.77 10*3/uL 1.88-7.09 IMM GRAN x10^3 (test code = 2077501030) 0.05 10*3/uL 0.00-0.06 LYMPH x10^3 (test code = 731-0) 5.05 10*3/uL 1.32-3.29 H MONO x10^3 (test code = 742-7) 0.68 10*3/uL 0.33-0.92 EOS x10^3 (test code = 711-2) 0.31 10*3/uL 0.03-0.39 BASO x10^3 (test code = 704-7) 0.07 10*3/uL 0.01-0.07 Lab Interpretation (test code = 55963-0) [facility]normal [facility] HospitalTR[facility] [id number] 18:39:27* Test Item Value Reference Range Interpretation Comments TROPONIN I (test code = 5840879769) 0.001 ng/mL See_Comment [Automated message] The system which generated this result transmitted reference range: <=0.034. The reference range was not used to interpret this result as normal/abnormal. MACI (test code = MACI) Reference (Normal) Range (defined by the 99th percentile reference [...] to patient's use of biotin. Lab Interpretation (test code = 11615-7) [facility] HospitalCOMP[facility] MET[facility]OLIC PANEL (09003)2021-07-27 18:29:25* Test Item Value Reference Range Interpretation Comme nts NA (test code = 0849380166) 137 mmol/L 135-145 K (test code = 6802936454) 4.5 mmol/L 3.5-5.0 CL (test code = 0760100347) 104 mmol/L 98-108 CO2 TOTAL (test code = 5674656999) 26 mmol/L 23-31 AGAP (test code = 2176194750) 2-16 BUN (test code = 6595951144) 10 mg/dL 7-23 GLUCOSE (test code = 0542984674) 87 mg/dL 70-110 CREATININE (test code = 9762939292) 0.59 mg/dL 0.50-1.04 TOTAL BILI (test code = 8894098337) 0.4 mg/dL 0.1-1.1 CALCIUM (test code = 6213861191) 9.6 mg/dL 8.6-10.6 T PROTEIN (test code = 9474147808) 7.1 g/dL 6.3-8.2 ALBUMIN (test code = 0418946759) 4.2 g/dL 3.5-5.0 ALK PHOS (test code = 4598052162) 88 U/L 34-122 ALTv (test code = 1742-6) 22 U/L 5-35 AST(SGOT) (test code = 2280360324) 25 U/L 13-40 eGFR (test code = 2216866077) mL/min/1.73m2 MACI (test code = MACI) Association of [...] or urine or abnormalities in imaging tests). [facility]* Test Item Value Reference Range Interpretation Comme nts MAGNESIUM (test code = 9313019961) 1.8 mg/dL 1.7-2.4 Lab Interpretation (test cod e = 76409-3) [facility] [id number] 18:28:00* Test Item Value Reference Range Interpretation Comme nts POCT PREG (test code = 1605) negative POCT PREG LOT # (test code = 3575) [id number] POCT PREG TEST DATE ( test code = 3576) 2022-09-12 Lab Interpretation (test cod e = 24059-4) [facility] [id number] 19:26:00* Test Item Value Reference Range Interpretation Comme nts POCT PREG (test code = 1605) Negative On board controls acceptable with C Line (test code = 3574) Yes POCT PREG LOT # (test code = 3575) POCT PREG TEST DATE ( test code = 3576) Lab Interpretation (test cod e = 08320-9) [facility] [id number] 19:26:00* Test Item Value Reference Range Interpretation Comme nts POCT PREG (test code = 1605) Negative On board controls acceptable with C Line (test code = 3574) Yes POCT PREG LOT # (test code = 3575) POCT PREG TEST DATE ( test code = 3576) Lab Interpretation (test cod e = 78115-2) [facility] [id number] 19:26:00* Test Item Value Reference Range Interpretation Comme nts POCT PREG (test code = 1605) Negative On board controls acceptable with C Line (test code = 3574) Yes POCT PREG LOT # (test code = 3575) POCT PREG TEST DATE ( test code = 3576) Lab Interpretation (test cod e = 99366-0) [facility] by RT-PCR (HIGH RISK) 2020-12-15 00:00:00* Test Item Value Reference Range Interpretation Comme nts SARS-CoV-2 INTERPRETATION (t est code = 62569) NEGATIVE SOURCE (test code = 12641) NOT SPECIFIED SARS-CoV-2 (COVID-19) by RT-PCR (HIGH RISK)2020-12-15 00:00:00* Test Item Value Reference Range Interpretation Comme nts SARS-CoV-2 INTERPRETATION (t est code = 37159) NEGATIVE SOURCE (test code = 24148) NOT SPECIFIED SARS-CoV-2 (COVID-19) by RT-PCR (HIGH RISK)2020-12-15 00:00:00* Test Item Value Reference Range Interpretation Comme nts SARS-CoV-2 INTERPRETATION (t est code = 05179) NEGATIVE SOURCE (test code = 02120) NOT SPECIFIED SARS-CoV-2 (COVID-19) by RT-PCR (HIGH RISK)2020-12-15 00:00:00* Test Item Value Reference Range Interpretation Comme nts SARS-CoV-2 INTERPRETATION (t est code = 20363) NEGATIVE SOURCE (test code = 83226) NOT SPECIFIED SARS-CoV-2 (COVID-19) by RT-PCR (HIGH RISK)2020-12-15 00:00:00* Test Item Value Reference Range Interpretation Comme nts SARS-CoV-2 INTERPRETATION (t est code = 08529) NEGATIVE SOURCE (test code = 40543) NOT SPECIFIED SARS-CoV-2 (COVID-19) by RT-PCR (HIGH RISK)2020-12-15 00:00:00* Test Item Value Reference Range Interpretation Comme nts SARS-CoV-2 INTERPRETATION (t est code = 57415) NEGATIVE SOURCE (test code = 56009) NOT SPECIFIED SARS-CoV-2 (COVID-19) by RT-PCR (HIGH RISK)2020-12-15 00:00:00* Test Item Value Reference Range Interpretation Comme nts SARS-CoV-2 INTERPRETATION (t est code = 32443) NEGATIVE SOURCE (test code = 77283) NOT SPECIFIED SARS-CoV-2 (COVID-19) by RT-PCR (HIGH RISK)2020-12-15 00:00:00* Test Item Value Reference Range Interpretation Comme nts SARS-CoV-2 INTERPRETATION (t est code = 45610) NEGATIVE SOURCE (test code = 92177) NOT SPECIFIED SARS-CoV-2 (COVID-19) by RT-PCR (HIGH RISK)2020-12-15 00:00:00* Test Item Value Reference Range Interpretation Comme nts SARS-CoV-2 INTERPRETATION (t est code = 34687) NEGATIVE SOURCE (test code = 69231) NOT SPECIFIED POCT [id number] 20:47:00* Test Item Value Reference Range Interpretation Comme nts POCT PREG (test code = 1605) Negative On board controls acceptable with C Line (test code = 3574) Yes POCT PREG LOT # (test code = 3575) POCT PREG TEST DATE ( test code = 3576) Lab Interpretation (test cod e = 09399-6) [facility] HospitalPO[facility] [id number] 20:47:00* Test Item Value Reference Range Interpretation Comme nts POCT PREG (test code = 1605) Negative On board controls acceptable with C Line (test code = 3574) Yes POCT PREG LOT # (test code = 3575) POCT PREG TEST DATE ( test code = 3576) Lab Interpretation (test cod e = 53983-1) Normal [facility] HospitalGC AND CHLAMYDIA AMPLIFIED, [id number] 00:00:00* Test Item Value Reference Range Interpretation Comme nts GONORRHEA, TMA (test code = 72055) NEGATIVE CHLAMYDIA, TMA (test code = 42855) NEGATIVE HIV AB/AG COMBO RFLX [id number] 00:00:00* Test Item Value Reference Range Interpretation Comme nts HIV 1/2 4TH GEN, RFLX CONF ( test code = 3514) NON-REACTIVE GC AND CHLAMYDIA AMPLIFIED, [id number] 00:00:00* Test Item Value Reference Range Interpretation Comme nts GONORRHEA, TMA (test code = 73819) NEGATIVE CHLAMYDIA, TMA (test code = 48392) NEGATIVE HIV AB/AG COMBO RFLX [id number] 00:00:00* Test Item Value Reference Range Interpretation Comme nts HIV 1/2 4TH GEN, RFLX CONF ( test code = 3514) NON-REACTIVE ACUTE HEPATITIS [id number] 00:00:00* Test Item Value Reference Range Interpretation Comme nts HEPATITIS A IgM (test code = 43524) NON-REACTIVE HEPATITIS B CORE IgM (test c ode = 4644) NON-REACTIVE HEPATITIS B SURF AG (test co de = 4509) NON-REACTIVE HEPATITIS C ANTIBODY (test c ode = 4675) NON-REACTIVE INTERPRETATION HEPATITIS A: (test code = 2552) (NOTE) INTERPRETATION HEPATITIS B: (test code = 36296) (NOTE) INTERPRETATION HEPATITIS C: (test code = 08721) (NOTE) PAP TEST, THINPREP, [id number] 00:00:00* Test Item Value Reference Range Interpretation Comme nts SOURCE: (test code = 8001) Endocervical SLIDES: (test code = 8011) 1 LMP: (test code = 8021) 10/2020 SPECIMEN ADEQUACY: (test code = 81555) (NOTE) INTERPRETATION: (test code = 97385) NILM/NO EPITH. ABNORMALITY;SEE BELOW PATIENT CENTERED CARE SPECIALIST: (test code = 8101) RANJEET Riley(ASC)IAC LOCATION: (test code = 07262) (NOTE) CPT: (test code = 8140) (NOTE) ACUTE HEPATITIS [id number] 00:00:00* Test Item Value Reference Range Interpretation Comme nts HEPATITIS A IgM (test code = 63120) NON-REACTIVE HEPATITIS B CORE IgM (test c ode = 4644) NON-REACTIVE HEPATITIS B SURF AG (test co de = 2739) NON-REACTIVE HEPATITIS C ANTIBODY (test c ode = 4675) NON-REACTIVE INTERPRETATION HEPATITIS A: (test code = 2552) (NOTE) INTERPRETATION HEPATITIS B: (test code = 81821) (NOTE) INTERPRETATION HEPATITIS C: (test code = 57531) (NOTE) PAP TEST, THINPREP, [id number] 00:00:00* Test Item Value Reference Range Interpretation Comme nts SOURCE: (test code = 8001) Endocervical SLIDES: (test code = 8011) 1 LMP: (test code = 8021) 10/2020 SPECIMEN ADEQUACY: (test code = 83558) (NOTE) INTERPRETATION: (test code = 90487) NILM/NO EPITH. ABNORMALITY;SEE BELOW PATIENT CENTERED CARE SPECIALIST: (test code = 8101) RANJEET Riley(ASC)IAC LOCATION: (test code = 86441) (NOTE) CPT: (test code = 8140) (NOTE) [id number] 00:00:00* Test Item Value Reference Range Interpretation Comme nts RPR RESULT (test code = 3501) NON-REACTIVE RPR TITER (test code = 3500) NOT INDIC. TITER HPV HIGH RISK WITH GENOTYPE, [id number] 00:00:00* Test Item Value Reference Range Interpretation Comme nts HPV HIGH RISK INTERP (test c ode = 95232) NEGATIVE HPV 16 (test code = 77582) NEGATIVE HPV 18 (test code = 57662) NEGATIVE HPV, HR, OTHER GENOTYPES (te st code = 15774) NEGATIVE [id number] 00:00:00* Test Item Value Reference Range Interpretation Comme nts RPR RESULT (test code = 3501) NON-REACTIVE RPR TITER (test code = 3500) NOT INDIC. TITER [id number] 00:00:00* Test Item Value Reference Range Interpretation Comme nts RPR RESULT (test code = 3501) NON-REACTIVE RPR TITER (test code = 3500) NOT INDIC. TITER HPV HIGH RISK WITH GENOTYPE, [id number] 00:00:00* Test Item Value Reference Range Interpretation Comme nts HPV HIGH RISK INTERP (test c ode = 21606) NEGATIVE HPV 16 (test code = 95709) NEGATIVE HPV 18 (test code = 38758) NEGATIVE HPV, HR, OTHER GENOTYPES (te st code = 05604) NEGATIVE VAGINAL PATHOGENS DNA [id number] 00:00:00* Test Item Value Reference Range Interpretation Comme nts ANNE MARIE SPECIES (test code = 83689) NEGATIVE G. VAGINALIS (test code = 09456) NEGATIVE T. VAGINALIS (test code = 74799) NEGATIVE VAGINAL PATHOGENS DNA [id number] 00:00:00* Test Item Value Reference Range Interpretation Comme nts ANNE MARIE SPECIES (test code = 05784) NEGATIVE G. VAGINALIS (test code = 29144) NEGATIVE T. VAGINALIS (test code = 22498) NEGATIVE HIV AB/AG COMBO RFLX [id number] 00:00:00* Test Item Value Reference Range Interpretation Comme nts HIV 1/2 4TH GEN, RFLX CONF ( test code = 3514) NON-REACTIVE GC AND CHLAMYDIA AMPLIFIED, [id number] 00:00:00* Test Item Value Reference Range Interpretation Comme nts GONORRHEA, TMA (test code = 40882) NEGATIVE CHLAMYDIA, TMA (test code = 86739) NEGATIVE HIV AB/AG COMBO RFLX [id number] 00:00:00* Test Item Value Reference Range Interpretation Comme nts HIV 1/2 4TH GEN, RFLX CONF ( test code = 3514) NON-REACTIVE GC AND CHLAMYDIA AMPLIFIED, [id number] 00:00:00* Test Item Value Reference Range Interpretation Comme nts GONORRHEA, TMA (test code = 38464) NEGATIVE CHLAMYDIA, TMA (test code = 57537) NEGATIVE ACUTE HEPATITIS [id number] 00:00:00* Test Item Value Reference Range Interpretation Comme nts HEPATITIS A IgM (test code = 12816) NON-REACTIVE HEPATITIS B CORE IgM (test c ode = 4644) NON-REACTIVE HEPATITIS B SURF AG (test co de = 2739) NON-REACTIVE HEPATITIS C ANTIBODY (test c ode = 4675) NON-REACTIVE INTERPRETATION HEPATITIS A: (test code = 2552) (NOTE) INTERPRETATION HEPATITIS B: (test code = 99282) (NOTE) INTERPRETATION HEPATITIS C: (test code = 30744) (NOTE) PAP TEST, THINPREP, [id number] 00:00:00* Test Item Value Reference Range Interpretation Comme nts SOURCE: (test code = 8001) Endocervical SLIDES: (test code = 8011) 1 LMP: (test code = 8021) 10/2020 SPECIMEN ADEQUACY: (test code = 38749) (NOTE) INTERPRETATION: (test code = 76136) NILM/NO EPITH. ABNORMALITY;SEE BELOW PATIENT CENTERED CARE SPECIALIST: (test code = 8101) RANJEET Riley(ASCP)IAC LOCATION: (test code = 04878) (NOTE) CPT: (test code = 8140) (NOTE) ACUTE HEPATITIS [id number] 00:00:00* Test Item Value Reference Range Interpretation Comme nts HEPATITIS A IgM (test code = 20799) NON-REACTIVE HEPATITIS B CORE IgM (test c ode = 4644) NON-REACTIVE HEPATITIS B SURF AG (test co de = 2739) NON-REACTIVE HEPATITIS C ANTIBODY (test c ode = 4675) NON-REACTIVE INTERPRETATION HEPATITIS A: (test code = 2552) (NOTE) INTERPRETATION HEPATITIS B: (test code = 83434) (NOTE) INTERPRETATION HEPATITIS C: (test code = 60212) (NOTE) PAP TEST, THINPREP, [id number] 00:00:00* Test Item Value Reference Range Interpretation Comme nts SOURCE: (test code = 8001) Endocervical SLIDES: (test code = 8011) 1 LMP: (test code = 8021) 10/2020 SPECIMEN ADEQUACY: (test code = 87472) (NOTE) INTERPRETATION: (test code = 06652) NILM/NO EPITH. ABNORMALITY;SEE BELOW PATIENT CENTERED CARE SPECIALIST: (test code = 8101) RANJEET Riley(ASCP)IAC LOCATION: (test code = 98220) (NOTE) CPT: (test code = 8140) (NOTE) HPV HIGH RISK WITH GENOTYPE, [id number] 00:00:00* Test Item Value Reference Range Interpretation Comme nts HPV HIGH RISK INTERP (test c ode = 90418) NEGATIVE HPV 16 (test code = 34730) NEGATIVE HPV 18 (test code = 19897) NEGATIVE HPV, HR, OTHER GENOTYPES (te st code = 61589) NEGATIVE [id number] 00:00:00* Test Item Value Reference Range Interpretation Comme nts RPR RESULT (test code = 3501) NON-REACTIVE RPR TITER (test code = 3500) NOT INDIC. TITER [id number] 00:00:00* Test Item Value Reference Range Interpretation Comme nts RPR RESULT (test code = 3501) NON-REACTIVE RPR TITER (test code = 3500) NOT INDIC. TITER HPV HIGH RISK WITH GENOTYPE, [id number] 00:00:00* Test Item Value Reference Range Interpretation Comme nts HPV HIGH RISK INTERP (test c ode = 70783) NEGATIVE HPV 16 (test code = 74951) NEGATIVE HPV 18 (test code = 74825) NEGATIVE HPV, HR, OTHER GENOTYPES (te st code = 74650) NEGATIVE [id number] 00:00:00* Test Item Value Reference Range Interpretation Comme nts RPR RESULT (test code = 3501) NON-REACTIVE RPR TITER (test code = 3500) NOT INDIC. TITER VAGINAL PATHOGENS DNA [id number] 00:00:00* Test Item Value Reference Range Interpretation Comme nts ANNE MARIE SPECIES (test code = 22148) NEGATIVE G. VAGINALIS (test code = 95555) NEGATIVE T. VAGINALIS (test code = 40992) NEGATIVE VAGINAL PATHOGENS DNA [id number] 00:00:00* Test Item Value Reference Range Interpretation Comme nts ANNE MARIE SPECIES (test code = 25657) NEGATIVE G. VAGINALIS (test code = 94284) NEGATIVE T. VAGINALIS (test code = 92746) NEGATIVE GC AND CHLAMYDIA AMPLIFIED, [id number] 00:00:00* Test Item Value Reference Range Interpretation Comme nts GONORRHEA, TMA (test code = 00019) NEGATIVE CHLAMYDIA, TMA (test code = 57387) NEGATIVE HIV AB/AG COMBO RFLX [id number] 00:00:00* Test Item Value Reference Range Interpretation Comme nts HIV 1/2 4TH GEN, RFLX CONF ( test code = 3514) NON-REACTIVE ACUTE HEPATITIS [id number] 00:00:00* Test Item Value Reference Range Interpretation Comme nts HEPATITIS A IgM (test code = 51742) NON-REACTIVE HEPATITIS B CORE IgM (test c ode = 4644) NON-REACTIVE HEPATITIS B SURF AG (test co de = 5899) NON-REACTIVE HEPATITIS C ANTIBODY (test c ode = 4682) NON-REACTIVE INTERPRETATION HEPATITIS A: (test code = 2552) (NOTE) INTERPRETATION HEPATITIS B: (test code = 01778) (NOTE) INTERPRETATION HEPATITIS C: (test code = 82805) (NOTE) PAP TEST, THINPREP, [id number] 00:00:00* Test Item Value Reference Range Interpretation Comme nts SOURCE: (test code = 8001) Endocervical SLIDES: (test code = 8011) 1 LMP: (test code = 8021) 10/2020 SPECIMEN ADEQUACY: (test code = 58531) (NOTE) INTERPRETATION: (test code = 74259) NILM/NO EPITH. ABNORMALITY;SEE BELOW PATIENT CENTERED CARE SPECIALIST: (test code = 8101) RANJEET Riley(ASCP)IAC LOCATION: (test code = 28187) (NOTE) CPT: (test code = 8140) (NOTE) HPV HIGH RISK WITH GENOTYPE, [id number] 00:00:00* Test Item Value Reference Range Interpretation Comme [facility] HPV HIGH RISK INTERP (test c ode = 76849) NEGATIVE HPV 16 (test code = 48728) NEGATIVE HPV 18 (test code = 38812) NEGATIVE HPV, HR, OTHER GENOTYPES (te st code = 85708) NEGATIVE [id number] 00:00:00* Test Item Value Reference Range Interpretation Comme nts RPR RESULT (test code = 3501) NON-REACTIVE RPR TITER (test code = 3500) NOT INDIC. TITER [id number] 00:00:00* Test Item Value Reference Range Interpretation Comme nts RPR RESULT (test code = 3501) NON-REACTIVE RPR TITER (test code = 3500) NOT INDIC. TITER VAGINAL PATHOGENS DNA [id number] 00:00:00* Test Item Value Reference Range Interpretation Comme nts ANNE MARIE SPECIES (test code = 40103) NEGATIVE G. VAGINALIS (test code = ) NEGATIVE T. VAGINALIS (test code = 92195) NEGATIVE GC AND CHLAMYDIA AMPLIFIED, [id number] 00:00:00* Test Item Value Reference Range Interpretation Comme nts GONORRHEA, TMA (test code = 90538) NEGATIVE CHLAMYDIA, TMA (test code = 29051) NEGATIVE GC AND CHLAMYDIA AMPLIFIED, [id number] 00:00:00* Test Item Value Reference Range Interpretation Comme nts GONORRHEA, TMA (test code = 65865) NEGATIVE CHLAMYDIA, TMA (test code = 59568) NEGATIVE HIV AB/AG COMBO RFLX [id number] 00:00:00* Test Item Value Reference Range Interpretation Comme nts HIV 1/2 4TH GEN, RFLX CONF ( test code = 3514) NON-REACTIVE HIV AB/AG COMBO RFLX [id number] 00:00:00* Test Item Value Reference Range Interpretation Comme nts HIV 1/2 4TH GEN, RFLX CONF ( test code = 3514) NON-REACTIVE PAP TEST, THINPREP, [id number] 00:00:00* Test Item Value Reference Range Interpretation Comme nts SOURCE: (test code = 8001) Endocervical SLIDES: (test code = 8011) 1 LMP: (test code = 8021) 10/2020 SPECIMEN ADEQUACY: (test code = 64705) (NOTE) INTERPRETATION: (test code = 46855) NILM/NO EPITH. ABNORMALITY;SEE BELOW PATIENT CENTERED CARE SPECIALIST: (test code = 8101) RANJEET Riley(ASCP)IAC LOCATION: (test code = 58301) (NOTE) CPT: (test code = 8140) (NOTE) ACUTE HEPATITIS [id number] 00:00:00* Test Item Value Reference Range Interpretation Comme nts HEPATITIS A IgM (test code = 87419) NON-REACTIVE HEPATITIS B CORE IgM (test c ode = 4644) NON-REACTIVE HEPATITIS B SURF AG (test co de = 2739) NON-REACTIVE HEPATITIS C ANTIBODY (test c ode = 4675) NON-REACTIVE INTERPRETATION HEPATITIS A: (test code = 2552) (NOTE) INTERPRETATION HEPATITIS B: (test code = 15233) (NOTE) INTERPRETATION HEPATITIS C: (test code = 99473) (NOTE) PAP TEST, THINPREP, [id number] 00:00:00* Test Item Value Reference Range Interpretation Comme nts SOURCE: (test code = 8001) Endocervical SLIDES: (test code = 8011) 1 LMP: (test code = 8021) 10/2020 SPECIMEN ADEQUACY: (test code = 03994) (NOTE) INTERPRETATION: (test code = 11619) NILM/NO EPITH. ABNORMALITY;SEE BELOW PATIENT CENTERED CARE SPECIALIST: (test code = 8101) RANJEET Riley(ASCP)IAC LOCATION: (test code = 22421) (NOTE) CPT: (test code = 8140) (NOTE) ACUTE HEPATITIS [id number] 00:00:00* Test Item Value Reference Range Interpretation Comme nts HEPATITIS A IgM (test code = 35559) NON-REACTIVE HEPATITIS B CORE IgM (test c ode = 4644) NON-REACTIVE HEPATITIS B SURF AG (test co de = 2739) NON-REACTIVE HEPATITIS C ANTIBODY (test c ode = 4675) NON-REACTIVE INTERPRETATION HEPATITIS A: (test code = 2552) (NOTE) INTERPRETATION HEPATITIS B: (test code = 92999) (NOTE) INTERPRETATION HEPATITIS C: (test code = 21000) (NOTE) [id number] 00:00:00* Test Item Value Reference Range Interpretation Comme nts RPR RESULT (test code = 3501) NON-REACTIVE RPR TITER (test code = 3500) NOT INDIC. TITER HPV HIGH RISK WITH GENOTYPE, [id number] 00:00:00* Test Item Value Reference Range Interpretation Comme nts HPV HIGH RISK INTERP (test c ode = 38688) NEGATIVE HPV 16 (test code = 89414) NEGATIVE HPV 18 (test code = 71350) NEGATIVE HPV, HR, OTHER GENOTYPES (te st code = 14723) NEGATIVE [id number] 00:00:00* Test Item Value Reference Range Interpretation Comme nts RPR RESULT (test code = 3501) NON-REACTIVE RPR TITER (test code = 3500) NOT INDIC. TITER [id number] 00:00:00* Test Item Value Reference Range Interpretation Comme nts RPR RESULT (test code = 3501) NON-REACTIVE RPR TITER (test code = 3500) NOT INDIC. TITER HPV HIGH RISK WITH GENOTYPE, [id number] 00:00:00* Test Item Value Reference Range Interpretation Comme nts HPV HIGH RISK INTERP (test c ode = 31046) NEGATIVE HPV 16 (test code = 13187) NEGATIVE HPV 18 (test code = 53468) NEGATIVE HPV, HR, OTHER GENOTYPES (te st code = 03182) NEGATIVE VAGINAL PATHOGENS DNA [id number] 00:00:00* Test Item Value Reference Range Interpretation Comme nts ANNE MARIE SPECIES (test code = 77152) NEGATIVE G. VAGINALIS (test code = 26993) NEGATIVE T. VAGINALIS (test code = 44881) NEGATIVE VAGINAL PATHOGENS DNA [id number] 00:00:00* Test Item Value Reference Range Interpretation Comme nts ANNE MARIE SPECIES (test code = 88222) NEGATIVE G. VAGINALIS (test code = 41566) NEGATIVE T. VAGINALIS (test code = 78412) NEGATIVE GC AND CHLAMYDIA AMPLIFIED, [id number] 00:00:00* Test Item Value Reference Range Interpretation Comme nts GONORRHEA, TMA (test code = 00277) NEGATIVE CHLAMYDIA, TMA (test code = 91945) NEGATIVE HIV AB/AG COMBO RFLX [id number] 00:00:00* Test Item Value Reference Range Interpretation Comme nts HIV 1/2 4TH GEN, RFLX CONF ( test code = 3514) NON-REACTIVE HIV AB/AG COMBO RFLX [id number] 00:00:00* Test Item Value Reference Range Interpretation Comme nts HIV 1/2 4TH GEN, RFLX CONF ( test code = 3514) NON-REACTIVE GC AND CHLAMYDIA AMPLIFIED, [id number] 00:00:00* Test Item Value Reference Range Interpretation Comme nts GONORRHEA, TMA (test code = 76317) NEGATIVE CHLAMYDIA, TMA (test code = 03007) NEGATIVE ACUTE HEPATITIS [id number] 00:00:00* Test Item Value Reference Range Interpretation Comme nts HEPATITIS A IgM (test code = 16232) NON-REACTIVE HEPATITIS B CORE IgM (test c ode = 4644) NON-REACTIVE HEPATITIS B SURF AG (test co de = 2739) NON-REACTIVE HEPATITIS C ANTIBODY (test c ode = 4675) NON-REACTIVE INTERPRETATION HEPATITIS A: (test code = 2552) (NOTE) INTERPRETATION HEPATITIS B: (test code = 71772) (NOTE) INTERPRETATION HEPATITIS C: (test code = 79018) (NOTE) PAP TEST, THINPREP, [id number] 00:00:00* Test Item Value Reference Range Interpretation Comme nts SOURCE: (test code = 8001) Endocervical SLIDES: (test code = 8011) 1 LMP: (test code = 8021) 10/2020 SPECIMEN ADEQUACY: (test code = 86820) (NOTE) INTERPRETATION: (test code = 87833) NILM/NO EPITH. ABNORMALITY;SEE BELOW PATIENT CENTERED CARE SPECIALIST: (test code = 8101) RANJEET Riley(ASCP)IAC LOCATION: (test code = 24218) (NOTE) CPT: (test code = 8140) (NOTE) ACUTE HEPATITIS [id number] 00:00:00* Test Item Value Reference Range Interpretation Comme nts HEPATITIS A IgM (test code = 67485) NON-REACTIVE HEPATITIS B CORE IgM (test c ode = 4644) NON-REACTIVE HEPATITIS B SURF AG (test co de = 2739) NON-REACTIVE HEPATITIS C ANTIBODY (test c ode = 4675) NON-REACTIVE INTERPRETATION HEPATITIS A: (test code = 2552) (NOTE) INTERPRETATION HEPATITIS B: (test code = 70293) (NOTE) INTERPRETATION HEPATITIS C: (test code = 29904) (NOTE) PAP TEST, THINPREP, [id number] 00:00:00* Test Item Value Reference Range Interpretation Comme nts SOURCE: (test code = 8001) Endocervical SLIDES: (test code = 8011) 1 LMP: (test code = 8021) 10/2020 SPECIMEN ADEQUACY: (test code = 86984) (NOTE) INTERPRETATION: (test code = 94229) NILM/NO EPITH. ABNORMALITY;SEE BELOW PATIENT CENTERED CARE SPECIALIST: (test code = 8101) RANJEET Riley(ASCP)IAC LOCATION: (test code = 73068) (NOTE) CPT: (test code = 8140) (NOTE) HPV HIGH RISK WITH GENOTYPE, [id number] 00:00:00* Test Item Value Reference Range Interpretation Comme nts HPV HIGH RISK INTERP (test c ode = 14232) NEGATIVE HPV 16 (test code = 84767) NEGATIVE HPV 18 (test code = 47523) NEGATIVE HPV, HR, OTHER GENOTYPES (te st code = 69780) NEGATIVE [id number] 00:00:00* Test Item Value Reference Range Interpretation Comme nts RPR RESULT (test code = 3501) NON-REACTIVE RPR TITER (test code = 3500) NOT INDIC. TITER [id number] 00:00:00* Test Item Value Reference Range Interpretation Comme nts RPR RESULT (test code = 3501) NON-REACTIVE RPR TITER (test code = 3500) NOT INDIC. TITER HPV HIGH RISK WITH GENOTYPE, [id number] 00:00:00* Test Item Value Reference Range Interpretation Comme nts HPV HIGH RISK INTERP (test c ode = 84254) NEGATIVE HPV 16 (test code = 66971) NEGATIVE HPV 18 (test code = 26613) NEGATIVE HPV, HR, OTHER GENOTYPES (te st code = 84790) NEGATIVE [id number] 00:00:00* Test Item Value Reference Range Interpretation Comme nts RPR RESULT (test code = 3501) NON-REACTIVE RPR TITER (test code = 3500) NOT INDIC. TITER VAGINAL PATHOGENS DNA [id number] 00:00:00* Test Item Value Reference Range Interpretation Comme nts ANNE MARIE SPECIES (test code = ) NEGATIVE G. VAGINALIS (test code = 19693) NEGATIVE T. VAGINALIS (test code = 04324) NEGATIVE VAGINAL PATHOGENS DNA [id number] 00:00:00* Test Item Value Reference Range Interpretation Comme nts ANNE MARIE SPECIES (test code = 71002) NEGATIVE G. VAGINALIS (test code = 39870) NEGATIVE T. VAGINALIS (test code = 89953) NEGATIVE Notes Date/Time Note Provider Source 2023-10-22 10:30:51 JbM5CV9olZg4HCPKWqoIy2F83dbtxjfaD gHLwj61Hl9XkAyutCGPlUzDaKflRY3g66 03-11-10T10:30:51 Signed letter received by Dr. Blackburn. DC order for PAP therapy noted on patient chart.Called Phani Willoughby to inquire how she wanted to receive the letter. No answer, LVM. 36215-5Kkrxrlmny encounter KzlcOI5673-05-34R39:31:39Telephon e encounter NoteTXT1.2.840.387841.1.13.104.2. 7.2.037045|[id number] for patient qkty51978-5NcxwLAFICLFKLWLJxmumeq ed C-CDA narrative [id number] Chavez RN[address] QbcdJhdsyjbduUgkpxnfwkZHWZ4029334 186ARHTNWIOBEWOWOOPPILQBF8719-00- 11T10:31:391.2.840.642350.1.72.3. 15|1.2.840.409754.1.13.104.2.7.2. [id number] Pat Hudson RN [facility] 2023-10-22 09:47:01 Se5/mPumxGi8LRZDoRkwZhzPez7hW6LbR h4+PctsP0Yrm49cMVEmJuQLEjl/3bfA20 03-11-10T09:47:01 Letter requested by patient signed- handed to Wendy to facilitate delivery to patient.Will order discontinuation of apap per patient request. 10919-1Jfbdzpeuf encounter KqpdQP2895-70-48N23:50:45Telephon e encounter NoteTXT1.2.840.138485.1.13.104.2. 7.2.019122|[id number] for patient wpnu53870-8KbscSFYYDVAJFXQGhfsibi ed C-CDA narrative textUT[address] StreetTXTX[address] 035XZPOLVWEIWKYWUPEWNDXIB9644-03- 11T09:50:451.2.840.317128.1.72.3. 15|1.2.840.704860.1.13.104.2.7.2. 727879_[id number] [facility] 2023-10-19 12:00:04 YzkCyZcid/f6ReEqi5SlodbGoauVqhl53 wigiP5w7bRoYguJU0QXN7+bY+5nVKrk67 04-11-072:00:04 Called and spoke to Phani Willoughby regarding the DME orders for cpap machine. She stated that she is losing her insurance in less then 60 days and she will not be able to afford the machine nor the follow up appointments. Will request Dr. Blackburn to cancel DME order. Phani also was requesting a letter stating what her diagnosis was so she can submit to Health and Human services. Letter drafted and pend for Dr Blackburn review. 04909-0Kmakimwke encounter OazoFK6413-70-88Y18:04:51Telephon e encounter NoteTXT1.2.840.983535.1.13.104.2. 7.2.650825|[id number] for patient vqev56328-9VnuyZBWVUZTDQMAWmgvgeu ed C-CDA narrative [id number] J Wind[place] RNUT[address]TXTX[address] 929IHHIWIRLQSUTFIBFMYGHMM5224-66- 08T13:04:511.2.840.065168.1.72.3. 15|1.2.840.795514.1.13.104.2.7.2. [id number] Heaven Aguilar RN [facility] 2023-10-17 01:44:27 OCfs7+t3gWnb2QpjLpOgOcw/2ThIjMJb+ EWEAHmzqQ7d7lXmjY15Zyr94ysxdD6132 03-11-05T01:44:27 Pt given printed and verbal discharge instructions regarding headache, encouraged hydration,Prescription sent to pt's pharmacyDiscussed ibuprofen and to take with food to avoid GI distress, alternate with Tylenol to help with pain and/or feverPt verbalized understanding of instructions,pt encouraged to follow up with pcp and or neurologistAdvised to seek medical attention for new/prolonged/worsening of symptoms,No adverse reaction to meds given in ER noted upon dischargePIV d'cd, dressing to site, catheter in tact.Awake, alert oriented, resp reg unlabored, skin w/d, pt leaving in no apparent distress, 32783-1Ddqcinbzp department XwtfOT3016-00-52Y48:45:03Emergen y department NoteTXT1.2.840.449766.1.13.104.2. 7.2.068138|[id number] for patient angp90314-6ZxnrENSXIRYWHSLErmjjvh ed C-CDA narrative qrdw495475758Dpnxkj R Shehadeh RN[address] ZydrKaqttnexwUczjllsnnHZOC7640642 843CXNISTRAOBQDFAJFCEPAMT8459-00- 06T01:45:031.2.840.965212.1.72.3. 15|1.2840.570679.1.13.104.2.7.2. 727879_[id number] Alecia Quarles RN [facility] 2023-10-16 23:47:29 /hRfVpre5rXX4/1Q203xV571Hoy3Ry3TP vpy+7K94HsjGv2YhYwXdgIktHOHfINl52 03-11-04:47:29Summary: Triage CC: patient keya started this morning. Patient took her nurtech ODT and went to sleep and this she missed her regular medications but then took them when she got up. Patient is wearing sunglasses in triage.PMHx: see listPSH:see listMEDS:see listLMP: control arm implantTetanus: UTDAwake, alert, oriented, resp reg unlabored, skin warm, color appropriate for race, moves all ext without difficulty, amb with no assitanceAppears in no distress 15317-9Mvnrlkwzc department Triage cqonHC4721-70-20D41:50:04[facility] Triage noteTXT1.2.840.534077.1.13.104.2. 7.2.594861|[id number] for patient lmqi19202-6Yzpzauimd department NoteLNNARRATIVEFormatted C-CDA narrative rzds991670873Ijaiq Schroeder RNUT[address] UrlwCzoootdsfUggrwosxqFXMM2138284 994UEOZZTOXNNBFCNLZLLVTUN4007-69- 05T23:50:041.2.840.477472.1.72.3. 15|1.2.840.414404.1.13.104.2.7.2. 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 7.2.080209|[id number] for patient jlgw96813-4PwjwXJFKMXUHBVSXthqjql ed C-CDA narrative textUT[address] VljsPbkzyoglvUaxntotmoUQHB7454757 565BMNZVYRKUVGTDGBPMNRIWI6562-00- 05T22:35:511.2.840.856701.1.72.3. 15|1.2.840.651480.1.13.104.2.7.2. 727879_[id number] [facility] 2023-10-16 22:35:00 HVf2v6xi8OyRUVaQfYpwYnJ9mivMUE4UE 0x4ig/WXSMTMdxPJVwxodnKtqke0rH487 03-11-04T22:35:00 Adult Triage AssessmentLast Clinic Visit: 10/15/23 psychiatry for depressionPrimary Symptom: MigraineOnset / Duration: this morningLocation / Description: right side of headPain / Severity: 7/10 throbbing in head, crushing, stabbing in earAssociated Symptoms: slept most of the day- caused pt to be "off" schedule on medications, ear/ tooth hurts on that side, puffy and swollen on the right side. Impacted tooth on right side (she thinks), intermittent nausea, pain ABOVE eye. Denies blurry or loss of vision.Fever / Method: denies, does not have access to thermometerHydration: 4- 16 oz bottles of water, 2-12 oz of soda. Big bowl of menudo and green grapes throughout the day. Denies urinary symptomsTreatment so far: levothyroxine this morning, Nurtec ~1000, tried showering, sleeping with no light/noise, cool compress. Propanolol and toprimate, as prescribedEffect on ADL's: significantLMP: "a long time ago" has implant in armPre-existing condition / Immunocompromised: per chart:Borderline personality, migraines, sleep apnea, insomnia, depressionPhani Willoughby is a 33 year old female who calls with complaints of severe migraine with no relief from prescribed medications. Assessment and triage completed, per protocol pt should be evaluated in ED now. Patient verbalizes understanding and agrees to follow plan of care. Denies other questions at this time, call back warnings given.Debbie Velasco [facility] TriageReason for Disposition[1] SEVERE headache (e.g., excruciating) AND [2] "worst headache" of lifeProtocols used: Rwvefigc-ZKZRX-CIKwmsshehvlqlqn signed by Debbie Velasco RN at 10/16/2023 10:59 PM WRC62674-9Rdwriqaor encounter IbrjPN5343-86-52A73:59:28Telephon e encounter NoteTXT1.2.840.300218.1.13.104.2. 7.2.457572|[id number] for patient ssvt91589-8CgvvKTUJOQVPSGAJcygrzz ed C-CDA narrative textUT[address] XfmaMjfbugtlxZooyzhwpwBNIO2060311 445XQUNRWQHGZEEDQXKKFYGBO6528-80- 05T22:59:281.2.840.584498.1.72.3. 15|1.2.840.166664.1.13.104.2.7.2. [id number] [facility] 2023-10-16 13:21:12 aRXGbQRZVxEmtpBRd7emhzdWHoEZiAG8d EXkZovlYzE0tuWE9GTr4M8Z/WaJGY9D98 03-11-04T13:21:12 Called Phani Willoughby and left message asking if she wanted us to submit the PAP orders that she previously informed us to hold. Instructed to return call when message received. 28740-2Sytjgubsz encounter BrjzGA6105-93-86M26:23:33Telephon e encounter NoteTXT1.2.840.162392.1.13.104.2. 7.2.503392|[id number] for patient yzpw84833-5HbpdPSTUAKMPRBAZgeypba ed C-CDA narrative text[address]TXTX[address] 237TMYNJDZPBDBYAQSQKNOYAS5958-83- 05T13:23:331.2.840.591960.1.72.3. 15|1.2.840.652217.1.13.104.2.7.2. [id number] [facility] 2023-10-10 09:41:02 zwBf3OIxV0kgVwgg2YuYXn3OWNyNXdSEA eI+8TYM4M3x3u9gkVNhSNegAhm9r1Zm54 06-10-27T09:41:02 Called patient to schedule appointment for Bere. No answer LVM 67932-4Kfypblzej encounter NikfIH7742-29-30Y09:41:53Telephon e encounter NoteTXT1.2.840.215752.1.13.104.2. 7.2.151951|[id number] for patient shxq54020-1IcscWPCBGFKVLXHHmmnfml ed C-CDA narrative kmwv928671696Hdwkzg A [address]TXTX[address] 638MGAHBWJEJPYHZQDEOOGNSA5629-46- 28T09:41:531.2.840.738190.1.72.3. 15|1.2.840.457511.1.13.104.2.7.2. [id number] Marija Hoffmann [facility] 2023-10-09 08:11:02 0yr+l6TC+urH40AL56iPJWQRC1xAHaYPU prwA7tT5Be1XC+7Tn0Wj+YOJNPdnork04 06-10-26T08:11:02 Please assist pt with scheduling a telehealth appt. Pt does not feel comfortable driving to the office due to not being able to sleep at night. Pt scheduled for an appt today at 9:00. Pls advise. 85373-6Fzvslqvan encounter JkeyNI5635-70-65K53:19:49Telephon e encounter NoteTXT1.2.840.117413.1.13.104.2. 7.2.797088|[id number] for patient wdxz33115-4BaphHEDIACICVKRDojweje ed C-CDA narrative iuwz421358967Quaasrvr [address] TmojGpgaclnucWkqviyfrqUKYM2437246 971WTHFKILFINYOHNVAPYXYMS3989-58- 27T08:19:491.2.840.994956.1.72.3. 15|1.2.840.510410.1.13.104.2.7.2. [id number] Santos Pfeiffer [facility] 2023-10-09 07:08:08 yJJHVjkMDI+JJU3IytPza6i5WEDW1U29B LmCwOWU2sshti4q6FiuzJTNRB7ylD/Z20 06-10-26T07:08:08 Phani Willoughby is a 33 year old femalePt is stating that she did not sleep last night and it is too dangerous for her to drive.Pt is asking for today's appt to be converted to a telehealth visit.Please adviseCall pt at [phone] (home) 62550-8Mgyifrxtu encounter FetiPP0139-48-72R80:11:14Telephon e encounter NoteTXT1.2.840.886971.1.13.104.2. 7.2.700434|[id number] for patient bjbj02594-4FugiJSBESMCHQRXUzoyxvp ed C-CDA narrative opew912858890Dqxglcfei C [address] MopqUuhsulmzuDbxruyzaiTSJE2573921 295FLQGVTSWYOUHVXSUUGALXB2220-11- 27T07:11:141.2.840.123695.1.72.3. 15|1.2.840.363368.1.13.104.2.7.2. [id number] Pasha King [facility] 2023-10-03 10:49:12 A+bxYHNOlj7VW9SWptneXGwLxDi63ttNK +pcCXM/iI6EhDn3Q/gsCdSvZhLS7vhT35 06-10-20T10:49:12 [facility] Specialty PharmacyTherapy PlanPhani Willoughby is a 33 year old y/o /White female patient referred to the [facility] Specialty Pharmacy for management of Nurtec and appropriateness of therapy which is being used to treat the diagnosis of Acute treatment of migraines.Phani Willoughby is Experienced to therapy . Switching from Ubrelvy. Prev on Nurtec and endorses efficacy.The stage of Phani Willoughby active disease is Severe "constantly having headaches" but with 2 to 3 migraines per month. Rates pain up to 10 out of 10.Goals of therapy based on therapy plan:Reduce attack frequency, severity, duration and disability, Reduce pain, and Minimize need for repeat dosing or rescue medicationsPatient self-reported goals of therapy:Reduce attack frequency, severity, duration and disability, Reduce pain, and Minimize need for repeat dosing or rescue medicationsBased on current therapy, patient progress towards established goals include:Progress being made towards goalsThe current specialty medication regimen is: Nurtec 75mg po prn migraine to be started on 10/05/23.Concurrent Neurology medications:Topiramate 50mg po BID - denies fatigue, memory impairment, kidney stones.Propranolol 40mg po qAM. BP/Pulse wnlHydroxyzine 100mg po prn insomnia and/or anxietyVenlafaxine XR 75mg po qAM for moodPreviously trialed medications:Ubrelvy - did not workWhile speaking with the patient, the Specialty Pharmacist has reviewed and updated the:medication list and allergy listPatient's most recent discharge from a hospital admission related to their specialty condition: The patient has not had a recent hospitalization related to their specialty condition.The [facility] Specialty Pharmacist has reviewed:The H&P, treatment recommendations, and all provider encounters relevant to the management of Acute treatment of migraines and Prevention of migraines.Comorbid conditions: No contraindication to therapyRisk factors identified related to specialty medication therapy and condition: None identifiedPertinent labs reviewed: Complete metabolic panel Scr wnlDrug-Drug Interactions: There are no significant drug-drug interactions-Weight:Wt Readings from Last 1 Encounters:09/18/23 121.9 kg (268 lb 11.2 oz)Lab ResultsComponent Value Date/TimeBUN 10 07/27/2021 12:06 PMCREAT 0.59 07/27/2021 12:06 PMEGFR 118.1 07/27/2021 12:06 PMLab ResultsComponent Value Date/TimeAST 25 07/27/2021 12:06 PMALT 22 07/27/2021 12:06 PMBILIT 0.4 07/27/2021 12:06 PMALKPHOS 88 07/27/2021 12:06 PMLab ResultsComponent Value Date/TimeWBC 10.93 07/27/2021 12:06 PMHGB 13.5 07/27/2021 12:06 PMPLT 268 07/27/2021 12:06 PMAfter review, the prescribed medication is clinically appropriate.PharmD provided education on Nurtec (Rimegepant):-Dosing:-Treatment: 75mg by mouth x1 (max 75mg per 24hrs)-Side effects:-Common: nausea, abdominal pain-Rare: skin rash/hypersensitivity, dyspnea-: avoid-has implant in arm; has vasectomyHome Delivery Process: If the patient chooses to have the medications delivered home, someone needs to be at home to receive the packaged medication. The medication can only sit in the ice box for 6 to 8 hours, and then it needs to be refrigerated.[address] [facility] [address]-Rwhofp-ps: Provided patient with PharmD contact information to call if they have any questions.Future AppointmentsProvider Department Dept Phone09/18/2024 11:00 AM Afia Beaulieu, BEATER WORKER HELPERCleveland Clinic Neu[facility], [facility] [phone] Navneet [facility]aPRES[facility] 88527-0Alywjvfxx encounter IvgqBT2522-58-10P89:53:24Telephon e encounter NoteTXT1.2.840.973602.1.13.104.2. 7.2.868553|[id number] for patient jzai53649-2YexcJDZGUTNOIRPMddcjbv ed C-CDA narrative [id number] L Papadatos [address] KrrmKewrwqwreWaolrwsdvFURO1924696 921AQYHHSRPCTMGDPSUYCNOSW1923-56- 21T10:53:241.2.840.627482.1.72.3. 15|1.2.840.343279.1.13.104.2.7.2. [id number] Navneet Dang [facility] 2023-10-01 10:47:34 JxlgUXIaVqFW7Vs+l/swt2YE0+Ys+5yG7 UzhRRIUpGDnRo/LprXyIXA+a/joZ5FD98 06-10-18T10:47:34 Noted.Thanks,Dr. Blackburn 25257-5Sbsgmnlkx encounter XbaaIA5444-99-95M47:47:49Telephon e encounter NoteTXT1.2.840.610701.1.13.104.2. 7.2.658083|[id number] for patient fuxd83536-1PbmrRSQKTKGTHJGEjuexhm ed C-CDA narrative textIM-PULMONARY DISEASE STAFFIM-PULMONARY DISEASE STAFF[address] IwjwPekpugmoyWacckuceqGJKR8769481 870MZOPTZYVDZBPCYSNFABUIF8263-71- 19T10:47:491.2.840.358586.1.72.3. 15|1.2.840.599526.1.13.104.2.7.2. [id number] IM-PULMONARY DISEASE STAFF [facility] 2023-10-01 10:26:05 JHzW8r4S+jxVbttt6pWdcZnXxT/vDk2cb 5u5xZkEe5yIS3Fdqd+A72WKZowgYUiR45 06-10-18T10:26:05 Called and spoke with Phani Willoughby regarding sleep study results. Pt verbalized understanding however she had some additional concerns. She stated that when she tried to sleep she had to take multiple doses of hydroxyzine and her insomnia is severe. She stated that she moved her october appointment up to 10.09.2023 and she would like to discuss further with Dr Blackburn her insomnia before moving forward with APAP. Will route to Dr Blackburn to keep him updated. 39115-3Kvzkzhodc encounter BgkmOG2140-01-39L96:29:42Telephon e encounter NoteTXT1.2.840.253539.1.13.104.2. 7.2.043190|[id number] for patient wlcc78822-0KgpbWINICDUGWMWRzgqdfy ed C-CDA narrative ylxw596114525Xgodrueg J [place] [address]GalvestonGalvestonTXTX[address] 308PEELRZAZPHIMTNZAHSZQUH7329-20- 19T10:29:421.2.840.063251.1.72.3. 15|1.2.840.346280.1.13.104.2.7.2. [id number] Heaven Aguilar [facility] 2023-10-01 09:44:03 gzEieFcXvvjVN2X2FeccbrF9CHf8A/os4 Ug4/x520+vLx7zULcdDm/lyNqgay+ug20 06-10-18T09:44:03 Pt is calling to speak with nurse Heaven regarding her SS results, Please advisePh: [phone] (home) 33178-3Mbzcbyzmf encounter SrycNZ3290-28-32M76:44:28Telephon e encounter NoteTXT1.2.840.137883.1.13.104.2. 7.2.102600|[id number] for patient nqye33113-2YrhoLEJAVKMXILNHjhkltj ed C-CDA narrative vani256100879Kqiftu [id number] 537YDLGBWBDOBJWQBCCDJZTHI0597-93- 19T09:44:281.2.840.229619.1.72.3. 15|1.2.840.143124.1.13.104.2.7.2. [id number] Jia White [facility] 2023-09-28 15:17:02 PAscG8KCUAm+OqU93XdsxcsArCuPyDTmp 449oUC9TJlO+rUNoPpN6Ecew+dUUzx906 06-10-155:17:02 Called patient and left message regarding ss results. Patient instructed to return call when message received. 74566-0Cbbuxyqib encounter YhvbLG1314-94-40H73:17:25Telephon e encounter NoteTXT1.2.840.532434.1.13.104.2. 7.2.657224|[id number] for patient btxx67877-9LtxgRKNIOMMXMUQTnbahni ed C-CDA narrative [address] 736CMMRLLIWCYAIPYAABNULTM7282-22- 16T15:17:251.2.840.669432.1.72.3. 15|1.2.840.548431.1.13.104.2.7.2. [id number] [facility] 2023-09-28 14:26:28 3kCdX+f5gIkw7kXo6mio1v4lmQ0mU4x8K k0vsbKLZ0zlxXE25YWEfXVRMC2Y1IBg92 06-10-154:26:28 See routing note for details and prescription.Thanks,Dr. Blackburn 72079-3Mbbpihvry encounter JqtgIC6617-69-72M48:26:57Telephon e encounter NoteTXT1.2.840.129096.1.13.104.2. 7.2.369183|[id number] for patient ehng76349-9IrjoKMPDTWBVFUVBcabvwa ed C-CDA narrative text[address] 293YXAPATVPVBRYAROAMIZEHE3977-54- 16T14:26:571.2.840.337952.1.72.3. 15|1.2.840.457498.1.13.104.2.7.2. [id number] [facility] 2023-09-28 11:01:13 yNc7FTQbDXwbfPj79svD+QczO3kff0uP+ YtRRe3KGIex/qiY7dx9wtOgth5mpgvL16 06-10-151:01:13 Phani Willoughby is a 33 year old femalePt is calling requesting to discuss sleep study results pt states its been several weeks and still has not gotten results yet and her medicaid is going to end very soon and would like to get everything done before then. Escalated message to the nurse. Please call to discuss. Please advise. 49994-2Siotugzco encounter JrvtMB0598-75-98I39:04:11Telephon e encounter NoteTXT1.2.840.536572.1.13.104.2. 7.2.323229|[id number] for patient vsav99248-6WcjzUJCNYZJHRXAWeoqeab ed C-CDA narrative [id number] R [address] Kq[id number] 035MCGUBRLEEDKDBSWDNDODLS6667-49- 16T11:04:111.2.840.143986.1.72.3. 15|1.2.840.370393.1.13.104.2.7.2. [id number] Dinora Velasco [facility] 2023-08-28 11:00:00 pPYdoVXQUyGcYLtoy2NaLsdLY5zS9pAYO iUUexBGwP04gnyRBdGdCjErBCImlxZp06 05-09-151:00:00Addended by: ELLY BLACKBURN MD on: 09/28/2023 02:26 PMModules accepted: Orders 13473-7Orwjdrzm OmwsdbhfQJ3553-50-00I62:26:24Adde ndum DocumentTXT1.2.840.223620.1.13.10 4.2.7.2.542876|[id number] ble for patient bhcp68621-4YynxQWMRIWIZMUJShbvfku ed C-CDA narrative text[address] PzmxVnunvqwznKubuszowzYOSC1544405 379JHCBIQKNBDASCGRWRDUQND3296-28- 16T14:26:241.2.840.369082.1.72.3. 15|1.2.840.372878.1.13.104.2.7.2. [id number] [facility] 2023-04-20 23:54:30 y3iDl+OzUgk4vMZXW4umrrAJfpZ2wAcTg qFHgEXyrbVjWJAfqjYony0mKnfkQHGZ43 05-05-08T23:54:30 Pt given printed and verbal discharge instructions regarding headache and anxiety attack Pt verbalized understanding of instructions, pt awake alert oriented, resp reg unlabored, skin w/d, color appropriate for race, moves all ext well,pt encouraged to follow up with pcpAdvised to seek medical attention for new/prolonged/worsening of symptomsNo adverse reaction to meds given in ER noted upon dischargePIV d'cd, dressing to site, catheter in tact.Awake, alert oriented, resp reg unlabored, skin w/d, pt leaving amb with steady gait, in no apparent distress 30980-1Mayziljqi department QygcWP8838-24-75F65:55:04Emergen y department NoteTXT1.2.840.408167.1.13.104.2. 7.2.674227|[id number] for patient pinq74849-0HvupCJ383955442Kmkhufj A Diaz RN[address] LcjpOygjcwikxGvyhmvzuaMMRT3751415 383QSLDJGZSFIUYNVMVNAFRKP2006-99- 08T23:55:041.2.840.543411.1.72.3. 15|1.2.840.655684.1.13.104.2.7.2. [id number] Margarita Mike Guerrero RN [facility] 2023-04-20 20:30:30 jnfdUHirXHoPK5W1QlhjZ/jz0EMRb7QmD zb8vr/VstGpLVG0yl30oMeLvy6bLqpr17 05-05-08T20:30:30 Suicide Risk - Assessment and PlanColumbia:1) Have you wished you were or could go to sleep and not wake up?: (P) Yes2) Have you had thoughts of killing yourself?: (P) Yes3) Have you been thinking about how you might kill yourself?: (P) No 4) Suicidal ideation with some intent?: (P) No 5) Have you worked out the details of the plan AND intend to follow through?: (P) No 6) Suicidal Behavior or preparation for suicide?: (P) No Floyd Score:Suggested risk level: (P) LowSAFE-T:Current and past psychiatric diagnoses: (P) Mood Disorder;PTSD;Other (see comments)Presenting symptoms: (P) Anhedonia;Hopelessness or despair;Anxiety and/or panic;InsomniaFamily history: (P) Suicidal behavior;[place] psychiatric diagnoses requiring hospitalization (sister suicidal behavior, paternal grandmother schizophrenia)Activating Events: (P) Other (see comments) (fight with best friend) Precipitants / stressors: (P) Triggering events leading to humiliation, shame, and/or despairProtective factors: (P) Positive family/friend relationships;Supportive social network of family and friends;Beloved pets;Identified reasons for living (children, family, friends, goals) Access to Lethal Means:Does patient have access to a gun or access to guns?: (P) YesSpecific Questions of Thoughts, Plans, Intent:Frequency- how many times have you had these thought?: (P) Once a week2.Duration - When you have the thoughts, how long do they last?: (P) Fleeting, a few seconds or minutes3.Controllability - could/can you stop thinking about killing yourself or wanting to if you want to? "Is it easy, a little hard, very hard, or are you unable?": (P) Easily able to control thoughts"4.Deterrents - are there things, anyone or anything (family, adventism, pain of ) that have stopped you from wanting to or acting on thoughts of committing suicide?: (P) Deterrents definitely stopped from attemptingReasons for ideation - What are the reasons you have for wanting to or kill yourself? Was it to end pain, stop the way you are feeling, or to get attention, or get revenge and reaction from others?: (P) Completely to end or stop the pain (you couldn't go on living with the pain or how you were feeling)Behavior Assessment:1.Were there preparatory acts like buying pills, guns, giving things away, or writing suicide note?: (P) No2.Was an attempt aborted or self - interrupted?: (P) No3.Was an attempt interrupted by someone else?: (P) No4.Was there an actual attempt?: (P) No5.Is there non suicidal self injury? Cutting, biting, skin picking: (P) No 7.Is there homicidal ideation: if so, describe: (P) No Stratification:High Suicide Risk Moderate Suicide Risk Low Suicide Risk ?? Suicidal ideation with intent or intent with plan in past month (C-SSRS Suicidal Ideation #4 or #5) Or ?? Suicidal behavior within past 3 months (C-SSRS Suicidal Behavior) ?? Suicidal ideation with method, WITHOUT plan, intent or behavior in past month (C-SSRS Suicidal Ideation #3) Or ?? Suicidal behavior more than 3 months ago (C-SSRS Suicidal Behavior Lifetime) Or ?? Multiple risk factors and few protective factors ?? Wish to or Suicidal Ideation WITHOUT method, intent, plan or behavior (C-SSRS Suicidal Ideation #1 or #2) Or ?? Modifiable risk factors and strong protective factors Or ? No reported history of Suicidal Ideation or Behavior Location / Risk:Outpatient / Low: Wish to or suicidal ideation without method, intent, plan or behavior and no history of suicidal behavior. a. Consider referral to behavioral health resources.b. Follow-up with Pediatric provider within 2 weeks.c. Consider developing a safety plan. 99960-0Akpssxzqis + Plan bedvXQ3300-11-98M84:31:14Evaluati on + Plan noteTXT1.2.840.748832.1.13.104.2. 7.2.594593|[id number] for patient tepq87086-0SfigIQUIXMYPBR[address] TdfwUxahaichoVipriccvxSXLB9273887 787LONBOIKTQSLUSQCTAFAGAU7931-05- 08T20:31:141.2.840.123847.1.72.3. 15|1.2.840.197303.1.13.104.2.7.2. [id number] [facility] 2023-04-20 19:29:16 j56kwkTDIokT1jvf/KVZCcatty4Ed6N76 BPBjQ2T02YkschO9xbgp/XuEX+0PjtP84 05-05-08T19:29:16 Pt arrives ambulatory to ED reporting that she is having a panic attack after fighting with a friend. She reports a terrible headache and took a Nurtec @ around 1819 this evening. She changed psychiatrist in January and does not have the meds that usually help her in this state. 60027-5Copdjcszh department Triage qtuuVF9931-96-90F27:32:53Emergenc y department Triage noteTXT1.2.840.851052.1.13.104.2. 7.2.659664|[id number] for patient eduv26537-2Boodqonne department IrtiVO219956462Euzefv L Emmanuel RN[address]TXTX[address] 124OAVMFGWNEKXHYHFCVAXLWW1304-15- 08T19:32:531.2.840.672747.1.72.3. 15|1.2.840.897813.1.13.104.2.7.2. [id number] Alecia Cevallos Emmanuel RN [facility] 2023-04-20 18:00:00 WRbt5hkVZvlrZd3JjLwJbl/iFSQ7KMpNS s20gPdhUelUyN7Mpwu1sah8CYyA7vss87 05-05-088:00:00 Regardin y f Pt is depressed, anxiety and crying for 2 hours after having an argument with a friend----- Message from Carmelina Danielson sent at 04/20/2023 6:00 PM CDT -----Phani Willoughby is a 32 year old femaleHusband calling pt was in verbal argument with one her friends x 2 hours. She is very depressed x 2 hoursCrying straight for 2 hours, anxiety x 2 hours 66788-9Yveslivva encounter PtsfMD2785-22-02E83:00:56Telephon e encounter NoteTXT1.2.840.417422.1.13.104.2. 7.2.751799|[id number] for patient bsul90074-3NngsEG087841826Rpvxl G Stenstadvold RN[id number] 569WTFDLYWVCGDAFEOCIHJWXM0694-21- 08T18:00:561.2.840.171736.1.72.3. 15|1.2.840.140277.1.13.104.2.7.2. [id number] Mildred Anders RN [facility] - Health 2023-04-20 18:00:00 JW92qYI2VW97GqixtiUp+Uo8PdmbSQeJe PeL2HmGykQi9hIdXOQbdDpxP2/8Vrgt52 05-05-08T18:00:00 Adult Triage AssessmentLast Clinic Visit: 04/04/2023 PsychPrimary Symptom: crying for 2 hours after getting into a verbal argument with a friendOnset / Duration: 2 hoursLocation / Description: systemicPain / Severity: 02/19 headache "feels like it is turing into a migraine"Associated Symptoms: headache-- a little tightness in chest Fever / Method: noneHydration: normal drinking /urinationTreatment so far: none no longer has rescue medicationsEffect on ADL's: has been sitting -crying for 2 hoursLMP: hasn't had period for 2 years. On BCPre-existing condition / Immunocompromised: pre Diabetic Reason for Disposition [1] Depression AND [2] unable to do any of normal activities (e.g., self care, school, work; in comparison to baseline).Protocols used: Yzjacwneka-GWLGS-FXQjouizi and Pt called for advice related to pt unable to stop crying after argument with friend. Advised to present to [facility] for evaluation And assistance. Pt states that she is concerned that she will be taken for inpatient care. and pt both do not desire. Requesting to continue Medication with current care team. They will present to Moodus Herbert Anders [facility] Access [facility] Nurse 29111-4Rypieslix encounter WhjpLV8890-22-15B70:22:03Telephon e encounter NoteTXT1.2.840.504378.1.13.104.2. 7.2.203806|[id number] for patient hpux02045-6MfsjKAGKOXPJFK32 [address]TXTX[address] 030MSUNEKOCLTCGGQMBDUBQSF1685-97- 08T18:22:031.2.840.762821.1.72.3. 15|1.2.840.368466.1.13.104.2.7.2. [id number] [facility] 2023-03-09 11:49:29 7GK9JXFmOQxbzUmi12sZgdfbIu07zhlKp robmdrr4XT6Yssc8dCAEfOLoZMpqK4W22 04-03-28T11:49:29 Medication filled already on 02/20/23.Requested Prescriptions Refused Prescriptions Disp Refills TOPIRAMATE 25 mg tablet [Pharmacy Med Name: TOPIRAMATE 25 MG TABLET] 106 tablet 0 Sig: TAKE 1 TABLET BY MOUTH 2 (TWO) TIMES DAILY FOR 7 DAYS, THEN 2 TABLETS 2 (TWO) TIMES DAILY FOR 7 DAYS. Refused By: JIA GONZALEZ Reason for Refusal: Request already responded to by other means (e.g. phone or fax) 16660-1Yrnhqnstp encounter OpqkQR6466-84-34D77:53:36Telephon e encounter NoteTXT1.2.840.776162.1.13.104.2. 7.2.468017|[id number] for patient [address]TXTX[address] 709EJDMJEGGZBXPDJDAEFHAQO2987-79- 28T11:53:361.2.840.004870.1.72.3. 15|1.2.840.754348.1.13.104.2.7.2. [id number] [facility]
[2023-11-25 05:22] LABS: Absolute Lymphocytes (CBC) 2.6 K/uL (0.7-4.9); Absolute Monocytes 0.4 K/uL (0.1-1.3); Absolute Neutrophil 4.4 K/uL (1.8-8.0); Basophils % 0.1 % (0-1.3); Eosinophils % 0.1 % (0-4.4); Hematocrit 40.5 % (36.0-45.0); Hemoglobin 13.2 g/dL (12.0-15.0); Lymphocytes % 34.5 % (15.3-44.8); MCH 28.6 pg (27.0-35.0); MCHC 32.6 g/dL (32.0-36.0); MCV 87.7 fL (80-100); MPV 7.9 fL (7.6-11.3); Monocytes % 5.7 % (3.3-12.3); Neutrophils % 59.6 % (41.7-73.7); Nucleated Red Blood Cells % 0.1 % (0-0); Platelets 260 thou/uL (152-406); RBC Red Blood Cell Count 4.62 M/uL (3.86-4.86); Red Cell Distribution Width 14.6 % (12.1-15.2)
[2023-11-25 05:41] LABS: Anion Gap 11.4 mEq/L (5.0-15.0); Potassium 3.4 mEq/L (3.5-5.1); Troponin High Sensitivity 6.9 pg/mL (<58.9)
--- NOTE | 2023-11-25 06:10 | ER ---
Nurse's Notes [facility] Name: Claudine Morales Age: 33 yrs Sex: Female : 1990 Arrival Date: 11/25/2023 Time: 04:45 Bed 3 Private MD: Diagnosis: Alcohol use, unspecified with intoxication, uncomplicated Presentation: 11/24 04:46 Chief complaint: EMS states: FAINTED WHILE USING THE TOILET, AFTER CONSUMING ALCOHOL, rv AND TAKEN METHOCARBAMOL AND GABAPENTIN. Coronavirus screen: At this time, the client does not indicate any symptoms associated with coronavirus-19. Ebola Screen: No symptoms or risks identified at this time. Initial Sepsis Screen: Does the patient meet any 2 criteria? No. Patient's initial sepsis screen is negative. Does the patient have a suspected source of infection? No. Patient's initial sepsis screen is negative. Risk Assessment: Do you want to hurt yourself or someone else? Patient reports no desire to harm self or others. Onset of symptoms was November 25, 2023. 04:46 Method Of Arrival: EMS: [facility] rv 04:46 Acuity: VANDANA 2 rv Triage Assessment: 04:50 General: Appears obese, Behavior is calm, cooperative. Pain: Denies pain. Neuro: Level rv of Consciousness is awake, alert, obeys commands, Oriented to person, place, time, situation. Cardiovascular: Capillary refill < 3 seconds Patient's skin is warm and dry. Respiratory: Airway is patent Respiratory effort is even, unlabored. GI: Abdomen is round non-distended, Reports nausea, vomiting. : No signs and/or symptoms were reported regarding the genitourinary system. Derm: Skin is intact. Historical: - Allergies: 04:50 Abilify; rv 04:50 Lamictal; rv - PMHx: 04:50 Hypertensive disorder; Hypothyroidism; insomnia; mood disorder; PCOS; rv - PSHx: 04:50 facial reconstruction; rv - Immunization history:: Adult Immunizations up to date. - Infectious Disease History:: Denies. - Social history:: Smoking status: Patient denies any tobacco usage or history of. Screenin:52 [facility] ED Fall Risk Assessment (Adult) History of falling in the last 3 months, rv including since admission No falls in past 3 months (0 pts) Intoxicated or Sedated Yes (3 pts) Score/Fall Risk Level 3 or more points = High Risk Oriented to surroundings, Maintained a safe environment, Educated pt \T\ family on fall prevention, incl call for assistance when getting out of bed, Assessed \T\ reinforced patient's understanding of fall precautions. Abuse screen: Denies threats or abuse. Denies injuries from another. Nutritional screening: No deficits noted. Tuberculosis screening: No symptoms or risk factors identified. Assessment: 06:54 Reassessment: Patient and/or family updated on plan of care and expected duration. Pain rv level reassessed. Patient is alert, oriented x 3, equal unlabored respirations, skin warm/dry/pink. Patient states feeling better. Patient states symptoms have improved. Vital Signs: 04:46 BP 143 / 91; Pulse 82; Resp 18; Temp 98; Pulse Ox 97% on R/A; rv 06:54 BP 121 / 86; Pulse 93; Resp 17; Temp 98; Pulse Ox 100% on R/A; rv ED Course: 04:46 Patient arrived in ED. rv 04:46 Crow Palafox MD is Attending Physician. ec2 04:50 Triage completed. rv 04:50 Arm band placed on right wrist. rv 04:52 Patient has correct armband on for positive identification. Client placed on continuous rv cardiac and pulse oximetry monitoring. NIBP monitoring applied. monitoring engineer on. 04:52 No provider procedures requiring assistance completed. Maintain EMS IV. Dressing rv intact. Good blood return noted. Site clean \T\ dry. Gauge \T\ site: G22 LEFT HAND. 05:31 CT Head Brain wo Cont In Process Unspecified. EDMS 06:36 Crow Palafox MD is Attending Physician. ec2 06:55 IV discontinued, intact, bleeding controlled, No redness/swelling at site. Pressure rv dressing applied. Administered Medications: 06:54 Not Given (Patient Refused): hpxdelerd67 mg IVP once rv Medication: 04:52 VIS not applicable for this client. rv Outcome: 06:10 Discharge ordered by . ec2 06:55 Discharged to home ambulatory, with family, rv 06:55 Condition: good 06:55 Discharge instructions given to patient, family, Instructed on discharge instructions, follow up and referral plans. Demonstrated understanding of instructions, follow-up care, 06:55 Patient left the ED. rv Signatures: Dispatcher [employer] Kevin Ramirez RN RN Crow Johnson MD MD ec2
--- NOTE | 2023-11-25 06:10 | EDPHYS ---
Physician Documentation [facility] Name: Claudine Morales Age: 33 yrs Sex: Female : 1990 Arrival Date: 11/25/2023 Time: 04:45 Bed 3 Private MD: ED Physician Crow Palafox HPI: 11/24 04:56 This 33 yrs old Female presents to ER via EMS with complaints of alcohol intoxication. ec2 04:56 Patient arrives today for evaluation of alcohol intoxication. Patient had ec2 lightheadedness episode and EMS was subsequently called. Patient had taken multiple alcoholic beverages which she describes as "too much ". No reported head injury, had also taken some Robaxin last night.. Historical: - Allergies: 04:50 Abilify; rv 04:50 Lamictal; rv - PMHx: 04:50 Hypertensive disorder; Hypothyroidism; insomnia; mood disorder; PCOS; rv - PSHx: 04:50 facial reconstruction; rv - Immunization history:: Adult Immunizations up to date. - Infectious Disease History:: Denies. - Social history:: Smoking status: Patient denies any tobacco usage or history of. ROS: 04:56 Constitutional: as per hpi ec2 Exam: 04:56 Constitutional: GEN: NAD Head: atraumatic Eyes: EOMI Ears: External ears are ec2 normal. CV: regular rate LUNGS: no respiratory distress ABD: non-distended SKIN: no evidence of rashes MSK: no evidence of trauma NEURO: moves all extremities equally Vital Signs: 04:46 BP 143 / 91; Pulse 82; Resp 18; Temp 98; Pulse Ox 97% on R/A; rv 06:54 BP 121 / 86; Pulse 93; Resp 17; Temp 98; Pulse Ox 100% on R/A; rv MDM: 04:48 Patient medically screened. ec2 04:56 Data reviewed: vital signs. ED course: Patient arrives today for evaluation for alcohol ec2 intoxication. Examination remarkable for nontoxic dividual who is drowsy however easily arousable and answers question appropriately. Will obtain lab work, ethanol level, CT imaging. Suspect alcohol intoxication causing patient's symptoms, evaluate for intracranial injury as well as arrhythmia, electrolyte disturbances.. 05:47 ED course: Metabolic profile shows slight hypokalemia, hCG is undetectable. Ethanol at ec2 117. CBC reassuring. Troponin within normal ranges. . 05:55 ED course: EKG independently reviewed and interpreted by me, shows normal sinus rhythm, ec2 rate of 91, no acute ST segment elevations, normal nonconcerning. . 06:06 ED course: CT scan of the head shows no acute intracranial abnormality.. ec2 06:09 ED course: On reassessment patient is awake and alert and answering questions ec2 appropriately. Will discharge home. Return precautions given. . 11/24 04:55 Order name: Basic Metabolic Panel; Complete Time: 05:47 ec2 11/24 04:55 Order name: CBC with Diff; Complete Time: 05:47 ec2 11/24 04:55 Order name: Troponin HS; Complete Time: 05:47 ec2 11/24 04:55 Order name: Ethanol; Complete Time: 05:47 ec2 11/24 05:13 Order name: HCG-Quantitative; Complete Time: 05:47 rv 11/24 04:55 Order name: CT Head Brain wo Cont ec2 11/24 04:55 Order name: Cardiac monitoring; Complete Time: 04:55 ec2 11/24 04:55 Order name: EKG - Nurse/Tech; Complete Time: 04:55 ec2 11/24 04:55 Order name: IV Saline Lock; Complete Time: 04:55 ec2 11/24 04:55 Order name: Labs collected and sent; Complete Time: 04:55 ec2 11/24 04:55 Order name: O2 Per Protocol; Complete Time: 04:55 ec2 11/24 04:55 Order name: O2 Sat Monitoring; Complete Time: 04:55 ec2 11/24 05:23 Order name: EKG - Nurse/Tech; Complete Time: 06:32 ec2 Administered Medications: 06:54 Not Given (Patient Refused): uxwmmwrce82 mg IVP once rv Disposition Summary: 11/25/23 06:10 Discharge Ordered Notes: Location: Home ec2 Problem: new ec2 Symptoms: have improved ec2 Condition: Stable ec2 Diagnosis - Alcohol use, unspecified with intoxication, uncomplicated ec2 Followup: ec2 - With: Private Physician - When: - Reason: Re-evaluation by your physician Discharge Instructions: - Discharge Summary Sheet ec2 - Alcohol Intoxication ec2 Forms: - Medication Reconciliation Form ec2 - Thank You Letter ec2 - Antibiotic Education ec2 - Prescription Opioid Use ec2 - Patient Portal Instructions ec2 - Leadership Thank You Letter ec2 Signatures: Dispatcher [employer] EDMS Kevin Castañeda, RN RN Crow Johnson MD MD ec2 Corrections: (The following items were deleted from the chart) 04:55 04:55 BASIC METABOLIC PANEL+C.LAB.BRZ ordered. EDMS EDMS 04:55 04:55 CBC+H.LAB.BRZ ordered. EDMS EDMS 04:55 04:55 Troponin High Sensitivity+C.LAB.BRZ ordered. EDMS EDMS 04:55 04:55 ETHANOL+C.LAB.BRZ ordered. EDMS EDMS 04:55 04:55 Test, Urine+UC.LAB.BRZ ordered. EDMS EDMS 04:55 04:55 Head Brain Wo Cont+CT.RAD.BRZ ordered. EDMS EDMS 05:14 05:14 TEST, SERUM+SC.LAB.BRZ ordered. EDMS EDMS
[2023-11-25 12:46] VITALS: BP 121/86; TEMP 98; O2SAT 100
--- NOTE | 2023-11-27 22:05 | RAD REPORT ---
EXAM DESCRIPTION: CT - Head Brain Wo Cont - 11/25/2023 7:14 am CLINICAL HISTORY: SYNCOPE COMPARISON: None. TECHNIQUE: CT HEAD WITHOUT IV CONTRAST on 11/25/2023 4:55 AM CDT This exam was performed according to our departmental dose-optimization program, which includes autom ated exposure control, adjustment of the mA and/or kV according to patient size and/or use of iterati ve reconstruction technique. FINDINGS: There is no acute hemorrhage, mass effect or midline shift. Azar-white differentiation is preserved. There is no hydrocephalus. There is no significant volume loss for age. The calvarium is intact. Orbits and globes are unremarkable. The paranasal sinuses are clear. Mastoid air cells are clear. IMPRESSION: No acute intracranial findings. Electronically signed by: Ryne Michael MD 11/25/2023 05:57 AM CDT Due to temporary technical issues with the PACS/Fluency reporting system, reports are being signed by the in house radiologists without review as a courtesy to insure prompt reporting. The interpreting radiologist is fully responsible for the content of the report.
== END 2023-11-25 06:55 | disposition home or self-care (01) ==
LOC: ER 04:45
DX: F10.929 Alcohol use, unspecified with intoxication, unspecified (principal); Z88.8 Allergy status to other drugs, medicaments and biological substances
CPT/HCPCS: 36415; 70450; 80048; 82077; 84484; 84702; 85025; 93005; 99284

== ENCOUNTER 2024-02-16 09:01 | Emergency (ER) | payer OTHER ==
[2024-02-16] MEDS ORDERED: KETOROLAC 30 MG/ML INJ ONE (09:12)
--- NOTE | 2024-02-16 09:12 | EDPHYS ---
Physician Documentation [facility] Name: Claudine Morales Age: 33 yrs Sex: Female : 1990 Arrival Date: 02/16/2024 Time: 09:01 Bed IW1 Private MD: ED Physician Matthias Sanchez HPI: 02/15 09:11 This 33 yrs old Female presents to ER via Ambulatory with complaints of Toothache. kb 09:11 Pt is a 33 year old female who presents for pain to right lower jaw that started this kb morning. States she had her molar pulled 4 days ago and grinds her teeth when she sleeps so she is concerned that she did something to the stitches. Pt states she was given tylenol with codeine for pain by the dentist, but does not take narcotics due to a previous addiction. States she does not want narcotic pain medication, just wants to make sure her stitches are still intact. Pt is currently on antibiotics prescribed by her dentist as well. . Historical: - Allergies: 09:08 Abilify; hb 09:08 Lamictal; hb - Home Meds: 09:10 BuSpar Oral [Active]; Chlorthalidone Oral [Active]; hb - PMHx: 09:08 Hypothyroidism; Hypertensive disorder; mood disorder; insomnia; PCOS; hb - PSHx: 09:08 facial reconstruction; hb - Immunization history:: Adult Immunizations up to date. - Infectious Disease History:: Denies. - Social history:: Smoking status: Patient denies any tobacco usage or history of. ROS: 09:11 Constitutional: As per HPI kb Exam: 09:11 Constitutional: This is a well developed, well nourished patient who is awake, alert, kb and in no acute distress. Head/Face: Normocephalic, atraumatic. ENT: Moist Mucous membranes Cardiovascular: Regular rate Respiratory: Respirations even and unlabored. No increased work of breathing. Talking in full sentences Abdomen/GI: Soft, non-tender. No distention Skin: Warm, dry with normal turgor. Normal color. MS/ Extremity: Pulses equal, no cyanosis. Neurovascular intact. Full, normal range of motion. Neuro: Awake and alert, GCS 15, oriented to person, place, time, and situation. Moves all extremities. Normal gait. 09:11 ENT: Dental exam: stitches noted and intact, no active bleeding. Slight erythema to area. , Vital Signs: 09:07 BP 140 / 93; Pulse 89; Resp 16; Temp 97(TE); Pulse Ox 98% on R/A; Weight 120.2 kg; hb Height 4 ft. 10 in. ; Pain 9/10; 09:07 Body Mass Index 55.38 (120.20 kg, 147.32 cm) hb 09:07 Pain Scale: Adult hb MDM: 09:05 Patient medically screened. kb 09:16 Differential diagnosis: dental caries, gingivitis, dental abscess, pericoronitis. Data kb reviewed: vital signs, nurses notes. Counseling: I had a detailed discussion with the patient and/or guardian regarding the historical points, exam findings, and any diagnostic results supporting the discharge/admit diagnosis, the need for outpatient follow up, a dentist, to return to the emergency department if symptoms worsen or persist or if there are any questions or concerns that arise at home. Administered Medications: 09:20 Drug: Ketorolac IM 30 mg IM once Route: IM; Site: right deltoid; hb 09:20 Follow up: Response: Medication administered at discharge. Disposition: 10:06 Co-signature as Attending Physician, Matthias Sanchez MD I reviewed the patient's care rn provided by the Advanced Practice Provider and agree with the diagnosis and treatment plan. Disposition Summary: 02/16/24 09:11 Discharge Ordered Notes: Location: Home kb Condition: Stable kb Diagnosis - Dental Pain kb Followup: kb - With: Emergency Department - When: As needed - Reason: Worsening of condition Followup: kb - With: Private Physician - When: 2 - 3 days - Reason: Recheck today's complaints, Continuance of care, Re-evaluation by your physician Discharge Instructions: - Discharge Summary Sheet kb - Dental Pain, [id number] kb Forms: - Medication Reconciliation Form kb - Antibiotic Education kb - Prescription Opioid Use kb - Patient Portal Instructions kb - Leadership Thank You Letter kb Signatures: Zarina Contreras FNP-C DALILA-Matthias Blanco MD MD rn Baxter, Heather, RN RN
--- NOTE | 2024-02-16 09:12 | ER ---
Nurse's Notes [facility] Name: Claudine Morales Age: 33 yrs Sex: Female : 1990 Arrival Date: 02/16/2024 Time: 09: Bed IW1 Private MD: Diagnosis: Dental Pain Presentation: 02/15 09:07 Chief complaint: Had right lower molar removed 3 days ago, c/o worsening pain this morning. Coronavirus screen: At this time, the client does not indicate any symptoms associated with coronavirus-19. Ebola Screen: No symptoms or risks identified at this time. Initial Sepsis Screen: Does the patient meet any 2 criteria? No. Patient's initial sepsis screen is negative. Does the patient have a suspected source of infection? No. Patient's initial sepsis screen is negative. Risk Assessment: Do you want to hurt yourself or someone else? Patient reports no desire to harm self or others. Onset of symptoms was February 16, 2024. 09:07 Method Of Arrival: Ambulatory 09:07 Acuity: VANDANA 4 hb Triage Assessment: : General: Appears in no apparent distress. uncomfortable, Behavior is calm, cooperative. hb Pain: Pain currently is 9 out of 10 on a pain scale. EENT: Reports pain in right jaw. Neuro: Level of Consciousness is awake, alert, obeys commands, Oriented to person, place, time, situation. Cardiovascular: Patient's skin is warm and dry. Respiratory: Respiratory effort is even, unlabored, Respiratory pattern is regular, symmetrical. Historical: - Allergies: 09:08 Abilify; hb 09:08 Lamictal; hb - Home Meds: 09:10 BuSpar Oral [Active]; Chlorthalidone Oral [Active]; hb - PMHx: 09:08 Hypothyroidism; Hypertensive disorder; mood disorder; insomnia; PCOS; hb - PSHx: 09:08 facial reconstruction; hb - Immunization history:: Adult Immunizations up to date. - Infectious Disease History:: Denies. - Social history:: Smoking status: Patient denies any tobacco usage or history of. Screenin:09 [facility] ED Fall Risk Assessment (Adult) History of falling in the last 3 months, hb including since admission No falls in past 3 months (0 pts) Confusion or Disorientation No (0 pts) Intoxicated or Sedated No (0 pts) Impaired Gait No (0 pts) Mobility Assist Device Used No (0 pt) Altered Elimination No (0 pt) Score/Fall Risk Level 0 - 2 = Low Risk Oriented to surroundings, Maintained a safe environment, Educated pt \T\ family on fall prevention, incl call for assistance when getting out of bed. Abuse screen: Denies threats or abuse. Denies injuries from another. Nutritional screening: No deficits noted. Tuberculosis screening: No symptoms or risk factors identified. Assessment: 09:09 General: See triage assessment . hb Vital Signs: 09:07 BP 140 / 93; Pulse 89; Resp 16; Temp 97(TE); Pulse Ox 98% on R/A; Weight 120.2 kg; hb Height 4 ft. 10 in. ; Pain 9/10; 09:07 Body Mass Index 55.38 (120.20 kg, 147.32 cm) hb 09:07 Pain Scale: Adult hb ED Course: 09:05 Patient arrived in ED. mg5 09:05 [facility]ina Contreras [facility]C [facility]. kb 09:05 Matthias Sanchez MD is Attending Physician. kb 09:08 Triage completed. hb 09:09 Arm band placed on. hb 09:09 Patient has correct armband on for positive identification. Provided Education on: hb medication, followup . 09:09 No provider procedures requiring assistance completed. Patient did not have IV access hb during this emergency room visit. Administered Medications: 09:20 Drug: Ketorolac IM 30 mg IM once Route: IM; Site: right deltoid; hb 09:20 Follow up: Response: Medication administered at discharge. hb Medication: 09:09 VIS not applicable for this client. hb Outcome: 09:11 Discharge ordered by . kb 09:20 Discharged to home ambulatory, hb 09:20 Condition: stable 09:20 Discharge instructions given to patient, Instructed on discharge instructions, follow up and referral plans. medication usage, Demonstrated understanding of instructions, follow-up care, medications, 09:20 Patient left the ED. hb Signatures: Zarina Contreras FNP-C FNP-Ckb Baxter, Heather, RN RN Estefanía Wolfe mg5 Corrections: (The following items were deleted from the chart) 09:11 09:07 BP 140 / 93; Pulse 89bpm; Resp 16bpm; Pulse Ox 98% RA; Temp 97F Temporal; hb hb
--- OUTSIDE RECORDS SUMMARY | 2024-02-16 09:24 | XMS REPORT | Continuity of Care Document ---
Author Name Unknown Address [address] [facility] [address] [place] [address] [facility] thconnect Address [address] [facility] [address] [place] [address] Care Team Providers Care Wound Care Rn Name Role Phone Ludivina ESCOBAR, [facility] Primary Care Physician [phone] AFIA BEAULIEU Attending Clinician Unavailable JUAN CASTELLANOS Attending Clinician Unavailable TAMMY MCDOWELL Attending Clinician Unavaila RIGO Martin Attending Clinician Unavailabl e LAB90 Attending Clinician Unavailable Doctor Unassigned, [place] Attending Clinician U Dorothy Mclain DNP Attending Clinician DOROTHY SHUKLA Attending Clinician Jeanine Elly Garvin MD Attending Clinician SHARRI OLSON Attending Clinician UnavailSHARRI Chan Attending Clinician Unavailcarmelo Dang Navneet Grayson Attending Clinician UnaELLY Alcala Attending Clinician Unavailable EMILY SINGH Attending Clinician Unavailable Emily Singh MD Attending Clinician ATILIO ANDREWS Attending Clinician Unavailable OBI SHARIF Attending Clinician Unavailable RADIOLOGY Attending Clinician Unavailable Radiology Attending Clinician Unavailable BONNIE ROCHA Attending Clinician Unavailab shahla Rocha ULTRASOUND TECHNICIAN, Bonnie Roman Attending Clinician + [phone] Debbie Velasco RN Attending Clinician Unavaila Ion Mata MD Attending Clinician + [phone] ION MIRANDA Attending Clinician Unavaila ION Mata Attending Clinician Unavaila ISELA Vieira Attending Clinician Unavailable CHAENL JACOME Attending Clinician Unavailable Jens Carranza RN, Sharri Canseco Attending Clinician Unava ilable JEFFREYGEORGETTE PURCELL Attending Clinician Unavailable Jeffrey PAC, Georgette S Attending Clinician [phone] Chago CARRANAZ, [place] Attending Clinician Jeanine vailable Zhanna Kramer LVN Attending Clinician Unavailabl dwaine Diamond ULTRASOUND TECHNICIAN, Preethi Attending Clinician [phone] Yamil MESSINA Attending Clinician Unavailable Yamil Monroy Attending Clinician +[phone] YOON PAGE Attending Clinician Unavailable Yoon Page MD Attending Clinician [phone] Pgy2 Attending Clinician Unavailable Marques Mansfield MD Attending Clinician +[phone] [facility] Resident Attending Clinician Unavailab Aracely Del Rio MD Attending Clinician +[phone] Dena Santos MD Attending Clinician + Jeanette Campos MD Attending Clinician +[phone] JEANETTE CAMPOS Attending Clinician Unavailable BEBE GABRIEL Attending Clinician Unavailable AFIA BEAULIEU Admitting Clinician Unavailable Yamil MESSINA Admitting Clinician Unavailable YOON PAGE Admitting Clinician Unavailable Payers Payer Name Policy Type Policy Number Effective Date Expirati on Date Source [facility] RAQUEL ALICEA [id number] 2022 00:00:00 [facility] TIO CHRISTIE COPAY FOCUS 9 [id number] 2024 00:00:00 Problems Condition Name Condition Details Condition Category Status Onset Date Resolution Date Last Treatment Date Treating Clinician Comments Source No known active problems No known active problems Disease [facility] PCOS (polycysti c ovarian syndrome) PCOS (polycysti c ovarian syndrome) Disease Active Rolanda Seybold - Externa l Prediabete s Prediabete s Disease Active Rolanda Seybold - Externa l Thyroid disease Thyroid disease Disease Active Rolanda Seybold - Externa l Bipolar 1 disorder (multi HCC) Bipolar 1 disorder (multi HCC) Disease Active Rolanda Seybold - Externa l Borderline personalit y disorder (multi HCC) Borderline personalit y disorder (multi HCC) Disease Active Rolanda Seybold - Externa l PTSD (post-trau matic stress disorder) PTSD (post-trau matic stress disorder) Disease Active Rolanda Seybold - Externa l Migraines Migraines Disease Active Thong sey Seybold - Externa l Severe anxiety Severe anxiety Disease Active Rolanda Seybold - Externa l Severe depression (multi HCC) Severe depression (multi HCC) Disease Active Rolanda Seybold - Externa l Arthritis Arthritis Disease Active Ove rview: Formattin g of this note might be different from the original. in spine Rolanda Seybold - Externa l Insomnia Insomnia Disease Active Kelse y Seybold - Externa l Allergies, Adverse Reactions, Alerts Allergy Name Allergy Type Status Severity Reaction(s) Onset Date Inactive Date Treating Clinician Comments Source Quetiapi ne Propensi ty to adverse reaction s Active Other 11-27 00:00: 00 Does not help and causes weight gain Rolanda Seybold - Externa l Ziprasid one Propensi ty to adverse reaction s Active Other 11-27 00:00: 00 Causes a reaction with metformin & Topamax Rolanda Seybold - Externa l QUETIAPI NE DRUG INGREDI Active Other-Cmnt 11-27 00:00: 00 [facility] ZIPRASID ONE DRUG INGREDI Active Other-Cmnt 11-27 00:00: 00 [facility] Ziprasid one Propensi ty to adverse reaction s Active Other - See comments 11-27 00:00: 00 Causes a reaction with metformin & Topamax [facility] Lamictal Propensi ty to adverse reaction to drug Active 2024-0 3-11 00:00: 00 Georgi Delaney Lurasido ne Propensi ty to adverse reaction s Active Other 0 8-07 00:00: 00 Manic episode/a gression Rolanda Seybold - Externa l LURASIDO NE DRUG INGREDI Active Other-Cmnt 8-07 00:00: 00 [facility] DOXEPIN DRUG INGREDI Active Anxiety 8-07 00:00: 00 [facility] Doxepin Propensi ty to adverse reaction s Active Anxiety 8 00:00: 00 Anger, agression [facility] Lurasido ne Propensi ty to adverse reaction s Active Other - See comments 8 00:00: 00 Manic episode/a gression [facility] Doxepin Propensi ty to adverse reaction s Active Other 2021-08 2-14 00:00: 00 Anger, agression Rolanda Seybold - Externa l Codeine Propensi ty to adverse reaction s Active 8 00:00: 00 Rolanda Seybold - Externa l Abilify - Oral Propensi ty to adverse reaction to drug Active 8 00:00: 00 Georgi Delaney ARIPIPRA ZOLE DRUG INGREDI Active Other-Cmnt 03-11 00:00: 00 [facility] LAMOTRIG INE DRUG INGREDI Active Other-Cmnt 03-11 00:00: 00 [facility] Aripipra zole Propensi ty to adverse reaction s Active Other - See comments 03-11 00:00: 00 Suicidal ideation and AMS [facility] Lamotrig ine Propensi ty to adverse reaction s Active Other - See comments 03-11 00:00: 00 Possible reaction att. [facility] Lamotrig ine Propensi ty to adverse reaction s Active Other 620 00:00: 00 Possible reaction att. Rolanda Seybold - Externa l Aripipra zole Monohydr ate Propensi ty to adverse reaction s Active Other 01-30 00:00: 00 Suicidal ideation and AMS Rolanda Vogel - Externa l NO KNOWN ALLERGIE S Drug Class Active [facility] Family History Family Member Diagnosis Comments Start Date Stop Date Sourc e [facility] Social History Social Habit Start Date Stop Date Quantity Comments Source Gender identity [facility] Exposure to SARS-CoV-2 (event) Not sure [facility] Sexual orientation Yamil salgado Jaspreet - External Cigarettes smoked current (pack per day) - Reported 2024-02-05 00:00:00 2024-02-05 00:00:00 Rolanda Vogel - External Cigarette pack-years 2024-02-05 00:00:00 2024-02-05 00:00:00 Rolanda Vogel - External Tobacco use and exposure 2024-02-05 00:00:00 2024-02-05 00:00:00 Smokeless tobacco non-user Rolanda Vogel - External Alcoholic beverage intake 2024-02-05 00:00:00 2024-02-05 00:00:00 .14 /d Rolanda Vogel - External History of Social function 2024-02-04 00:00:00 2024-02-04 00:00:00 Rolanda Vogel - External Alcohol Comment 2024-02-04 00:00:00 2024-02-04 00:00:00 rarely socially, in past alcohol abuse; alcohol poisoning 1 month ago Rolanda Vogel - External Alcohol intake 2023-11-01 00:00:00 2023-11-01 00:00:00 Current drinker of alcohol (finding) [facility] History of tobacco use 2004-02-04 00:00:00 2010-02-03 00:00:00 Cigarette Smoker Rolanda Vogel - External Sex assigned at 1990 00:00:00 1990 00:00:00 Rolanda Vogel - External Smoking Status Start Date Stop Date Source Ex-smoker 2024-02-05 00:00:00 2024-02-05 00:00:00 Rolanda Cheung External Never smoked tobacco [facility] Tobacco smoking consumption unknown [facility] Medications Ordered Medication Name Filled Medication Name Start Date Stop Date Current Medication? Ordering Clinician Indication Dosage Frequency Signature (SIG) Comments Components Source Levothyroxi ne Sodium (Unithroid) 50 MCG oral Tablet 02-04 15:44: 39 02-04 00:00 :00 No Rolanda peoples Metformin HCl 500 MG oral Tablet 02-04 15:21: 50 02-04 00:00 :00 No 500mg Take 1 tablet (500 mg total) by mouth in the morning and 1 tablet (500 mg total) in the evening. Take with meals. Rolanda peoples Etonogestre l (NEXPLANON SC) 02-04 15:21: 33 Yes [id number] Inject into the skin. Rolanda peoples Levothyroxi ne Sodium (Unithroid) 50 MCG oral Tablet 02-04 00:00: 00 Yes [id number] 50ug QD Take 1 tablet (50 mcg total) by mouth daily. Rolanda peoples Phentermine HCl 37.5 MG oral Tablet 02-04 00:00: 00 Yes [id number] 37.5mg QD Take 1 tablet (37.5 mg total) by mouth daily. Rolanda peoples Macrobid 100 mg capsule 01-07 00:00: 00 Yes 1mg Georgi Delaney metformin ER 500 mg tablet,exte nded release 24 hr 01-02 00:00: 00 Yes mg Georgi Delaney phentermine 37.5 mg tablet 01-02 00:00: 00 Yes mg Georgi Delaney levothyroxi ne 112 mcg tablet 01-02 00:00: 00 Yes mcg Georgi Delaney methocarbam ol 750 mg tablet 01-02 00:00: 00 Yes 1mg Georgi Delaney gabapentin 100 mg capsule 01-02 00:00: 00 Yes 1mg Georgi Delaney metFORMIN 500 mg tablet 12-30 11:10: 07 Yes 500mg Take 1 tablet by mouth in the morning and 1 tablet in the evening. Take with meals. [facility] Ketorolac Tromethamin e (TORADOL) injection syringe 60 mg 12-25 14:30: 00 12-25 14:30 :00 No [id number] 60mg 60 mg, Intramuscu lar, ONCE, 1 dose, On Sun12/26/23 at 0930, Routine [facility] Ondansetron HCl 4 MG oral Tablet 12-24 00:00: 00 Yes [id number] 4mg Q.[id number] 3D Take 1 tablet (4 mg total) by mouth every 8 hours as needed. Rolanda peoples Propranolol HCl 40 MG oral Tablet 12-24 00:00: 00 Yes [id number] 40mg QD Take 1 tablet (40 mg total) by mouth daily. Rolanda peoples Rimegepant Sulfate (Nurtec) 75 MG oral TABLET DISPERSIBLE 12-24 00:00: 00 Yes [id number] 75mg QD Take 1 tablet (75 mg total) by mouth daily as needed. Rolanda peoples Topiramate 100 MG oral Tablet 12-24 00:00: 00 Yes [id number] 100mg Q.5D Take 1 tablet (100 mg total) by mouth 2 times daily. Rolanda peoples Ubrogepant 100 MG oral Tablet 12-24 00:00: 00 Yes [id number] 100mg Take 1 tablet (100 mg total) by mouth as needed. Rolanda peoples levothyroxi ne 50 mcg tablet 12-20 00:00: 00 Yes 1mcg Georgi Delaney phentermine 37.5 mg tablet 12-20 00:00: 00 Yes mg Georgi Delaney hydrOXYzine HCl 50 MG oral Tablet 12-18 00:00: 00 Yes [id number] Take 2 tablets at night as needed for insomnia. If unable to sleep after 1 hour take 1 tablet by mouth at night. Can take an additional 2 tablets during the day as needed for anxiety. Rolanda peoples Venlafaxine HCl 75 MG oral Capsule 24 Hour Sustained Release 12-18 00:00: 00 Yes [id number] 75mg QD Take 1 capsule (75 mg total) by mouth daily (with breakfast) . Rolanda Jaspreet peoples Metformin HCl ER 500 MG oral TABLET SR 24 HR 11-29 00:00: 00 Yes [id number] 500mg Take 1 tablet (500 mg total) by mouth in the morning and 1 tablet (500 mg total) in the evening. Take with meals. Rolanda Jaspreet peoples HYDROXYZINE HCL 50 MG TABS 11-13 00:00: 00 Yes Georgi Delaney levothyroxi ne 112 mcg tablet 11-11 00:00: 00 Yes mcg Georgi Delaney UNITHROID 112 MCG TABS 11-11 00:00: 00 Yes Georgi Delaney butalbital- acetaminoph en-caff 50-325-40 mg tablet 10-31 08:54: 39 10-31 00:00 :00 No 1{tbl} Take 1 tablet by mouth every 4 (four) hours as needed for Headache. [facility] TOPIRAMATE 100 MG TABS 10-31 00:00: 00 Yes Georgi Delaney topiramate 100 mg tablet 10-31 00:00: 00 12-24 00:00 :00 No [id number] 100mg Take 1 tablet by mouth in the morning and 1 tablet in the evening. [facility] butalbital- acetaminoph en-caff 50-325-40 mg tablet 10-30 08:17: 56 Yes 1{tbl} Take 1 tablet by mouth every 4 (four) hours as needed for Headache. [facility] Victoza 2-Michi 0.6 mg/0.1 mL (18 mg/3 mL) subcutaneou s pen injector 10-24 00:00: 00 Yes (18 mg/3 mL) Georgi Delaney phentermine 37.5 mg tablet 10-24 00:00: 00 Yes mg Georgi Delaney gabapentin 100 mg capsule 12 00:00: 00 Yes 1mg Georgi Delaney Gabapentin 100 MG oral Capsule 10-22 00:00: 00 Yes [id number] 100mg Q.[id number] 3D Take 1 capsule (100 mg total) by mouth 3 times daily. Rolanda peoples Methocarbam ol 750 MG oral Tablet 10-22 00:00: 00 Yes [id number] TAKE 1 TABLET BY MOUTH THREE TIMES A DAY NEEDED FOR MUSCLE SPASM Rolanda peoples Diclofenac Sodium 75 MG oral Tablet Delayed Response 10-22 00:00: 00 Yes [id number] 1mg 1 mg. Rolanda peoples ketorolac (TORADOL) injection 30 mg 10-16 06:30: 00 10-16 06:17 :00 No 30mg 30 mg, Slow IV Push, ONCE, 1 dose, On Sun10/17/23 at 0030, Routine [facility] NaCl 0.9% (NS) bolus infusion 1,000 mL 10-16 06:15: 00 10-16 07:36 :00 No 1000mL at 999 mL/hr, 1,000 mL, IV Infusion, ONCE, 1 dose, On Sun10/17/23 at 0015, STAT [facility] metoclopram krystian HCl (REGLAN) injection 10 mg 10-16 06:15: 00 10-16 06:17 :00 No 10mg 10 mg, Slow IV Push, ONCE, 1 dose, On Sun10/17/23 at 0015, PAWEL [facility] diphenhydrA MINE (BENADRYL) injection 25 mg 10-16 06:15: 00 10-16 06:17 :00 No 25mg 25 mg, Slow IV Push, ONCE, 1 dose, On Sun10/17/23 at 0015, STAT [facility] hydroxyzine HCl 50 mg tablet 10-16 00:00: 00 Yes mg Georgi Delaney ACETAMINOPH EN-CAFF-BUT ALBITAL 50-325-40 MG oral Tablet 10-16 00:00: 00 Yes [id number] Rolanda peoples venlafaxine ER 75 mg capsule,ext ended release 24 hr 2- 00:00: 00 Yes mg Georgi Delaney metFORMIN 500 mg tablet 10-03 10:52: 09 Yes 500mg Take 1 tablet by mouth in the morning and 1 tablet in the evening. Take with meals. [facility] Rimegepant Sulfate (Nurtec) 75 MG oral TABLET DISPERSIBLE 10-03 00:00: 00 02-04 00:00 :00 No Rolanda peoples phentermine 37.5 mg tablet 10-02 00:00: 00 Yes mg Georgi Delaney NURTEC 75 MG TBDP 09-18 00:00: 00 Yes Georgi Delaney TOPIRAMATE 50 MG TABS 09-18 00:00: 00 Yes Georgi Delaney rimegepant (NURTEC ODT) 75 mg TbDL 09-18 00:00: 00 12-24 00:00 :00 No [id number] 75mg Take 1 tablet by mouth once daily as needed (Headache) . [facility] propranoloL 40 mg tablet 09-18 00:00: 00 12-24 00:00 :00 No [id number] 40mg Take 1 tablet by mouth in the morning. [facility] topiramate 50 mg tablet 09-18 00:00: 00 10-31 00:00 :00 No [id number] 50mg Take 1 tablet by mouth in the morning and 1 tablet in the evening. [facility] HYDROXYZINE HCL 50 MG TABS 09-17 00:00: 00 Yes Georgi Delaney VENLAFAXINE HYDROCHLORI DE ER 75 MG CP24 - 00:00: 00 Yes Georgi Delaney venlafaxine XR (EFFEXOR XR) 75 mg 24 hr capsule - 00:00: 00 12-18 00:00 :00 No [id number] 75mg Take 1 capsule by mouth daily with breakfast. [facility] propranolol 40 mg tablet 2- 00:00: 00 Yes mg Georgi Delaney metformin ER 500 mg tablet,exte nded release 24 hr 09-03 00:00: 00 Yes mg Georgi Delaney TAKE 1 TABLET DAILY 09-03 00:00: 00 Yes Georgi Delaney VENLAFAXINE HYDROCHLORI DE ER 75 MG CP24 09-03 00:00: 00 Yes Georgi Delaney venlafaxine XR (EFFEXOR XR) 75 mg 24 hr capsule 09-03 00:00: 00 09-17 00:00 :00 No [id number] 75mg Take 1 capsule by mouth daily with breakfast. [facility] levothyroxi ne 112 mcg tablet 08-19 00:00: 00 Yes mcg Georgi Delaney topiramate 50 mg tablet 08-16 00:00: 00 Yes mg Georgi Delaney Liraglutide (Victoza) 18 MG/3ML subcutaneou s Solution Pen-injecto r 08-14 00:00: 00 02-04 00:00 :00 No Rolanda peoples FLUTICASONE PROPIONATE, NASAL, 50 MCG/ACT nasal Suspension 2022-08 00:00: 00 Yes Rolanda peoples Cetirizine (ZYRTEC) 10 MG oral Tablet 2022-08 00:00: 00 02-04 00:00 :00 No Rolanda peoples USE 1 SPRAY IN EACH NOSTRIL ONCE DAILY. 2022-08 00:00: 00 12-25 00:00 :00 No 50 Georgi Delaney LEVOTHYROXI NE SODIUM 112 MCG TABS 2022-08 00:00: 00 Yes Georgi Delaney 0.6 MG ONCE DAILY FOR 1 WEEK, THEN INCREASE TO 1.2 MG ONCE DAILY 2022-08 00:00: 00 12-25 00:00 :00 No 183 Georgimariama Delaney Zolpidem Tartrate 5 MG oral Tablet 2022-08 00:00: 00 02-04 00:00 :00 No Rolanda peoples ramelteon 8 mg tablet 2022-08 00:00: 00 2023- 12-11 00:00 :00 No [id number] 8mg Take 1 tablet by mouth at bedtime as needed for Insomnia. [facility] TAKE 1 TABLET BY MOUTH TWICE A DAY 2022-08 00:00: 00 12-25 00:00 :00 No 890 Georgi Delaney TAKE 1 TABLET DAILY. 2022-08 00:00: 00 12-25 00:00 :00 No 375 Georgi Delaney QUANTITY 120 - REFILL 0 - TAKE ONE (1) TABLET(S) BY MOUTH DAILY X7 DAYS, THEN ONE (1) TABLET TWICE DAILY X7 DAYS, THEN TWO EVERY MORNING AND ONE EVERY EVENING X14 DAY 2022-08 00:00: 00 12-25 00:00 :00 No 890 Georgi Delaney UBRELVY 100 MG TABS 2022-08 00:00: 00 Yes Georgi Delaney ubrogepant 100 mg Tab 2022-08 00:00: 00 12-24 00:00 :00 No [id number] 100mg Take 1 tablet by mouth as needed for Other (Headache) for up to 64 doses. If symptoms persist or return, may repeat dose after 2 hours. Maximum: 200 mg per 24 hours [facility] VENLAFAXINE HYDROCHLORI DE ER 37.5 MG CP24 2022-08 0-25 00:00: 00 Yes Georgi Delaney HYDROXYZINE HCL 50 MG TABS 2022-08 0-25 00:00: 00 Yes Georgi Delaney VENLAFAXINE HYDROCHLORI DE ER 75 MG CP24 2022-08 0-25 00:00: 00 Yes Georgi Delaney venlafaxine XR (EFFEXOR XR) 75 mg 24 hr capsule 2022-08 0-25 00:00: 00 09-03 00:00 :00 No [id number] 75mg Take 1 capsule by mouth daily with breakfast. [facility] TAKE 1 TABLET TWICE A DAY WITH MEALS 2022-08 0-24 00:00: 00 12-25 00:00 :00 No 500 Georgi Delaney Omeprazole 40 MG oral Delayed Release Capsule 2022-08 0-18 00:00: 00 Yes Rolanda peoples TOPIRAMATE 50 MG TABS 2022-08 00:00: 00 Yes Georgi Delaney TAKE 1 TABLET BY MOUTH EVERY DAY IN THE MORNING 2022-08 00:00: 00 Yes Georgi Delaney topiramate 50 mg tablet 2022-08 00:00: 00 09-18 00:00 :00 No [id number] 50mg Take 1 tablet by mouth in the morning and 1 tablet in the evening. [facility] propranoloL 40 mg tablet 2022-08 00:00: 00 09-18 00:00 :00 No [id number] 40mg Take 1 tablet by mouth in the morning. [facility] rimegepant (NURTEC ODT) 75 mg TbDL 2022-08 00:00: 00 09-18 00:00 :00 No [id number] 75mg Take 1 tablet by mouth as needed (Headache) . [facility] PLEASE SEE ATTACHED FOR DETAILED DIRECTIONS 2022-08 00:00: 00 Yes Georgi Delaney VENLAFAXINE HYDROCHLORI DE ER 75 MG CP24 05-09 00:00: 00 Yes Georgi Delaney hydrOXYzine 50 mg tablet 05-09 00:00: 00 06-06 00:00 :00 No [id number] Take 2 tablets at night as needed for insomnia. Can take an additional 2 tablets during the day as needed for anxiety. [facility] venlafaxine XR (EFFEXOR XR) 75 mg 24 hr capsule 05-09 00:00: 00 06-06 00:00 :00 No [id number] 75mg Take 1 capsule by mouth daily with breakfast. [facility] LEVOTHYROXI NE SODIUM 112 MCG TABS 05-04 00:00: 00 Yes Georgi Delaney Unithroid 112 mcg tablet 04-28 00:00: 00 Yes mcg Georgi Delaney TAKE 1 TABLET BY MOUTH DAILY 04-28 00:00: 00 12-25 00:00 :00 No 112 Georgi Delaney hydrOXYzine 50 mg tablet 04-25 09:38: 06 04-25 00:00 :00 No 50mg Take 1 tablet by mouth in the morning. Take 1 tablet by mouth every 6 hours as needed for itching [facility] TAKE 1 CAPSULE BY MOUTH DAILY WITH BREAKFAST. 04-25 00:00: 00 Yes Georgi Delaney HYDROXYZINE HCL 50 MG TABS 04-25 00:00: 00 Yes Georgi Delaney venlafaxine XR (EFFEXOR XR) 75 mg 24 hr capsule 04-25 00:00: 00 05-09 00:00 :00 No [id number] 75mg Take 1 capsule by mouth daily with breakfast. [facility] TAKE 1 TO 2 TABLETS AT BEDTIME 04-22 00:00: 00 12-25 00:00 :00 No 25 Georgi Delaney NaCl 0.9% (NS) bolus infusion 1,000 mL 04-21 02:30: 00 04-21 04:53 :00 No 1000mL at 999 mL/hr, 1,000 mL, IV Infusion, ONCE, 1 dose, On Sun04/20/23 at 2130, STAT [facility] ketorolac (TORADOL) injection 30 mg 04-21 02:30: 00 04-21 02:47 :00 No 30mg 30 mg, Slow IV Push, ONCE, 1 dose, On Sun04/20/23 at 2130, PAWEL [facility] proCHLORper azine (COMPAZINE) 10 mg in NaCl 0.9% (NS) piggyback 04-21 02:15: 00 04-21 04:47 :00 No 10mg 10 mg, IV Piggyback, at 100 mL/hr Administer over 30 Minutes, ONCE, 1 dose, On Sun04/20/23 at 2115, Routine [facility] diphenhydrA MINE (BENADRYL) injection 25 mg 04-21 01:30: 00 04-21 02:46 :00 No 25mg 25 mg, Slow IV Push, ONCE, 1 dose, On Sun04/20/23 at 2030, STAT [facility] sulfamethox azole-trime thoprim 400-80 mg per tablet 04-20 20:09: 31 04-20 00:00 :00 No 1{tbl} Take 1 tablet by mouth in the morning and 1 tablet in the evening. [facility] TAKE 1 TABLET DAILY. 04-17 00:00: 00 12-25 00:00 :00 No 375 Georgi Delaney TAKE 1 TABLET TWICE A DAY WITH MEALS 04-17 00:00: 00 12-25 00:00 :00 No 500 Georgi Delaney VENLAFAXINE HYDROCHLORI DE ER 37.5 MG CP24 04-04 00:00: 00 Yes Georgi Delaney venlafaxine XR (EFFEXOR XR) 37.5 mg 24 hr capsule 04-04 00:00: 00 04-25 00:00 :00 No [id number] 37.5mg Take 1 capsule by mouth daily with breakfast. [facility] Ziprasidone HCl 20 MG oral Capsule 03-21 00:00: 00 02-04 00:00 :00 No Rolanda Vogel - Tawanna peoples metFORMIN 500 mg tablet 03-19 14:17: 04 Yes 500mg Take 1 tablet by mouth in the morning and 1 tablet in the evening. Take with meals. [facility] sulfamethox azole-trime thoprim 400-80 mg per tablet 03-19 14:17: 04 Yes 1{tbl} Take 1 tablet by mouth in the morning and 1 tablet in the evening. [facility] PROPRANOLOL HYDROCHLORI DE 40 MG TABS 03-19 00:00: 00 Yes Georgi Delaney TOPIRAMATE 50 MG TABS 03-19 00:00: 00 Yes Georgi Delaney propranoloL 40 mg tablet 03-19 00:00: 00 05-24 00:00 :00 No [id number] 40mg Take 1 tablet by mouth in the morning. [facility] topiramate 50 mg tablet 03-19 00:00: 00 05-24 00:00 :00 No [id number] 50mg Take 1 tablet by mouth in the morning and 1 tablet in the evening. [facility] Phentermine HCl 37.5 MG oral Tablet 03-13 00:00: 00 02-04 00:00 :00 No 37.5mg QD Take 1 tablet (37.5 mg total) by mouth daily. Rolanda Vogel - Externa l TAKE 1 TABLET DAILY. 03-13 00:00: 12-25 00:00 :00 No 375 Goergi Delaney TAKE 1 TABLET BY MOUTH TWICE A DAY 03-06 00:00: 00 Yes Georgi Delaney TAKE 1 TABLET TWICE DAILY. 03-06 00:00: 12-25 00:00 :00 No [id number] Georgi Delaney NURTEC 75 MG TBDP 02-27 00:00: 00 Yes Georgi Delaney rimegepant (NURTEC ODT) 75 mg TbDL 02-27 00:00: 00 05-24 00:00 :00 No [id number] 75mg Take 1 tablet by mouth daily as needed (Headache) . [facility] LATUDA 40 MG TABS 02-23 00:00: 00 Yes Georgi Delaney Naproxen 500 MG oral Tablet 02-23 00:00: 00 Yes [id number] TAKE 1 TABLET DAILY NEEDED FOR MIGRAINE. Rolanda peoples Lurasidone HCl (Latuda) 40 MG oral Tablet 02-23 00:00: 00 02-04 00:00 :00 No Rolanda Feldera richelle lurasidone (LATUDA) 20 mg tablet 02-23 00:00: 00 03-21 00:00 :00 No [id number] 20mg Take 1 tablet by mouth every evening. Start Latuda 20 mg with dinner (at least 500 kcal); after 1 week increase to 40 mg with dinner [facility] HYDROXYZINE HCL 50 MG TABS 02-22 00:00: 00 Yes Georgi Delaney Doxepin HCl 10 MG oral Capsule 02-22 00:00: 00 02-04 00:00 :00 No Rolanda Vogel - Tawanna peoples hydrOXYzine 50 mg tablet 02-22 00:00: 00 03-21 00:00 :00 No [id number] 50mg Take 1 tablet by mouth every 6 (six) hours as needed for Itching. [facility] [facility]LATUDA[facility] 20 mg tablet 02-22 00:00: 00 02-23 00:00 :00 No [id number] Take one tablet by mouth with dinner (at least 500 calories) for 1 week. After 1 week increase to two tablets by mouth with dinner. [facility] TAKE 1 TABLET DAILY FOR MIGRAINE HEADACHE PROPHYLAXIS 02-21 00:00: 00 Yes Georgi Delaney TOPIRAMATE 25 MG TABS 02-20 00:00: 00 Yes Georgi Delaney TOPIRAMATE 50 MG TABS 02-20 00:00: 00 Yes Georgi Delaney topiramate 50 mg tablet 02-20 00:00: 00 03-19 00:00 :00 No 50mg Take 1 tablet by mouth in the morning and 1 tablet in the evening. [facility] topiramate 25 mg tablet 02-20 00:00: 00 03-19 00:00 :00 No 25mg Take 1 tablet by mouth in the morning and 1 tablet in the evening. Take for 7 days then increase to 50mg twice a day. [facility] topiramate 25 mg tablet 02-16 00:00: 00 03-03 04:59 :00 No [id number] Take 1 tablet by mouth 2 (two) times daily for 7 days, THEN 2 tablets 2 (two) times daily for 7 days. [facility] ubrogepant 100 mg Tab 02-16 00:00: 00 02-27 00:00 :00 No [id number] 100mg Take 1 tablet by mouth as needed for Other (Headache) for up to 10 doses. If symptoms persist or return, may repeat dose after 2 hours. Maximum: 200 mg per 24 hours [facility] VENTOLIN HFA 90 mcg/actuati on inhaler 02-09 00:00: 00 04-20 00:00 :00 No INHALE 2 PUFFS EVERY 3-4 HOURS NEEDED FOR WHEEZING, COUGH, SHORTNESS OF BREATH [facility] TAKE 1 TABLET DAILY NEEDED FOR MIGRAINE. 01-24 00:00: 00 12-25 00:00 :00 No 500 Georgi Delaney TAKE 1 TABLET AT ONSET OF MIGRAINE, IF PERSISTS TAKE 1 TABLET AFTER 2 HOURS NEEDED. 01-24 00:00: 00 12-25 00:00 :00 No 50 Georgi Delaney TAKE 1 TABLET AT ONSET OF HEADACHE. MAY REPEAT ONCE IN 2 HOURS NEEDED. MAXIMUM 2 TABLETS IN 24 HOURS. 01-23 00:00: 00 12-25 00:00 :00 No [id number] Georgi Delaney TAKE 1 TABLET DAILY FOR MIGRAINE HEADACHE PROPHYLAXIS 01-23 00:00: 00 12-25 00:00 :00 No 40 Georgi Delaney TAKE 2 TABLETS ON DAY 1 THEN TAKE 1 TABLET A DAY FOR 4 DAYS. 01-17 00:00: 00 12-25 00:00 :00 No 250 Georgi Delaney TAKE 5 ML EVERY 4-6 HOURS, MAY INCREASE TO 10ML AT NIGHT TIME NEEDED. 01-17 00:00: 00 12-25 00:00 :00 No [id number] Georgi Delaney PREDNISONE 10 MG TABS 01-06 00:00: 00 Yes Georgi Delaney TRAMADOL HYDROCHLORI DE ER 100 MG TB24 01-01 00:00: 00 Yes Georgi Delaney traMADoL 100 mg 24 hr tablet 01-01 00:00: 00 04-20 00:00 :00 No TAKE 1 TABLET BY MOUTH EVERY DAY NEEDED FOR SEVERE PAIN [facility] HYDROCODONE BITARTRATE/ ACETAMINOPH E N 7.5-325 MG/15ML SOLN 18 00:00: 00 Yes Georgi Delaney INHALE 2 PUFFS EVERY 3-4 HOURS NEEDED FOR WHEEZING, COUGH, SHORTNESS OF BREATH 12-22 00:00: 00 Yes Georgi Delaney INHALE 2 PUFFS EVERY 3-4 HOURS PRN WHEEZING, COUGH, SHORTNESS OF BREATH 12-22 00:00: 00 12-25 00:00 :00 No [id number] Georgi Delaney METHYLPREDN ISOLONE DOSE PACK 4 MG TBPK 12-16 00:00: 00 Yes Georgi Delaney TAKE 5 ML EVERY 4-6 HOURS, MAY INCREASE TO 10ML AT NIGHT TIME NEEDED. 12-16 00:00: 00 12-25 00:00 :00 No [id number] Georgi Delaney FOLLOW DIRECTIONS ON PACKAGE 12-16 00:00: 00 12-25 00:00 :00 No 4 Georgi Delaney levothyroxi ne 112 mcg tablet 12-09 00:00: 00 [facility] DE 20 MG TABS 12-09 00:00: 00 Yes Georgi Delaney ONDANSETRON ODT 4 MG TBDP 12-09 00:00: 00 Yes Georgi Delaney BUPROPION HYDROCHLORI DE ER (SR) 100 MG TB12 12-06 00:00: 00 Yes Georgi Delaney TRILEPTAL 300 MG TABS 12-06 00:00: 00 Yes Georgi Delaney TAKE 1 TABLET 3 TIMES DAILY. 12-06 00:00: 00 12-25 00:00 :00 No 300 Georgi Delaney TAKE 1 TABLET TWICE DAILY. 12-06 00:00: 00 12-25 00:00 :00 No 100 Georgi Delaney TAKE 1 TABLET AT BEDTIME. 12-06 00:00: 00 12-25 00:00 :00 No 20 Georgi Delaney TAKE 1 TABLET AT BEDTIME NEEDED. 12-06 00:00: 00 12-25 00:00 :00 No 50 Georgi Delaney TRILEPTAL 300 MG TABS 11-23 00:00: 00 Yes Georgi Delaney TOPIRAMATE 50 MG TABS 11-23 00:00: 00 Yes Georgi Delaney BUPROPION HYDROCHLORI DE ER (XL) 300 MG TB24 11-23 00:00: 00 Yes Georgi Delaney TAKE 1 TABLET DAILY. 11-23 00:00: 00 12-25 00:00 :00 No 50 Georgi Delaney TAKE 1 TABLET AT BEDTIME. 11-23 00:00: 00 12-25 00:00 :00 No 8 Georgi Delaney TAKE 1 TABLET AT NIGHT WITH 350 CALORIE DIET 11-23 00:00: 00 12-25 00:00 :00 No 20 Georgi Delaney TAKE 1 TABLET TWICE A DAY WITH MEALS 11-01 00:00: 00 12-25 00:00 :00 No 500 Georgi Delaney TAKE 1 TABLET EVERY 12 HOURS DAILY. 11-01 00:00: 00 12-25 00:00 :00 No 875 Georgi Delaney TAKE 1 TABLET EVERY MORNING. 10-27 00:00: 00 12-25 00:00 :00 No 300 Georgi Delaney TAKE 1 TABLET 3 TIMES DAILY. 10-27 00:00: 00 12-25 00:00 :00 No 300 Georgi Delaney ONDANSETRON ODT 4 MG - 00:00: 00 Yes Georgi Delaney TAKE 1 TABLET BY MOUTH EVERY 12 HOURS FOR 10 DAYS 10-20 00:00: 00 Yes Georgi Delaney TAKE 1 TABLET AT BEDTIME. - 00:00: 00 12-25 00:00 :00 No 8 Georgi Delaney TAKE 1 TABLET 3 TIMES DAILY. - 00:00: 00 12-25 00:00 :00 No 300 Georgi Delaney TAKE 1 TABLET EVERY MORNING. - 00:00: 00 12-25 00:00 :00 No 300 Georgi Delaney TAKE 1 TABLET DAILY. 3- 00:00: 00 12-25 00:00 :00 No 8 Georgi Delaney TAKE 1 TABLET DAILY. 3-01 00:00: 00 12-25 00:00 :00 No 50 Georgimariama Delaney TAKE 1 CAPSULE BY MOUTH ONCE DAILY 2-27 00:00: 00 12-25 00:00 :00 No [id number] Georgimariama Delaney TAKE 1 TABLET 3 TIMES DAILY. 2-17 00:00: 00 12-25 00:00 :00 No 300 Georgi Delaney TAKE 1 TABLET AT BEDTIME. 2-17 00:00: 00 12-25 00:00 :00 No 8 Georgi Alex Delaney TAKE 1 TABLET TWICE A DAY WITH MEALS 2-07 00:00: 00 12-25 00:00 :00 No 500 Georgimariama Delaney TAKE 1 TABLET EVERY MORNING. 2-03 00:00: 00 12-25 00:00 :00 No 300 Georgi Delaney TAKE 1 TABLET AT BEDTIME. 2- 00:00: 00 12-25 00:00 :00 No 8 Georgimariama Delaney TAKE 2 TABLETS 3 TIMES DAILY. 2-03 00:00: 00 12-25 00:00 :00 No 10 Georgimariama Delaney TAKE 1 TABLET 3 TIMES DAILY. 2-03 00:00: 00 12-25 00:00 :00 No 300 Georgi Delaney TAKE 1 TABLET DAILY. 1- 00:00: 00 12-25 00:00 :00 No 8 Georgimariama Delaney CHLORTHALID ONE 25 MG 24 00:00: 00 Yes Georgimariama Delaney TAKE 1 CAPSULE BY MOUTH ONCE DAILY -24 00:00: 00 12-25 00:00 :00 No [id number] Georgi Alex Delaney USE DIRECTED 09-04 00:00: 00 12-25 00:00 :00 No 68 Georgimariama Delaney TAKE 1 TABLET AT BEDTIME. 09-04 00:00: 00 12-25 00:00 :00 No 100 Georgimariama Delaney TAKE 2 TABLETS 3 TIMES DAILY. 09-04 00:00: 00 12-25 00:00 :00 No 10 Georgi F Rhett TAKE 1 TABLET TWICE DAILY. 09-04 00:00: 00 12-25 00:00 :00 No 300 Georgi Delaney TAKE 1 TABLET EVERY MORNING. 09-04 00:00: 00 12-25 00:00 :00 No 300 Georgi Delaney TAKE 1 TABLET DAILY. 08-30 00:00: 00 12-25 00:00 :00 No 112 Georgi Delaney TAKE 1 TABLET AT BEDTIME. 2021-08 00:00: 00 No 100 TAKE 1 TABLET TWICE DAILY. 2021-08 00:00: 00 No 300 TAKE 1 TABLET EVERY MORNING. 2021-08 00:00: 00 No 300 TAKE 1 TABLET AT BEDTIME. 2021-08 00:00: 00 12-25 00:00 :00 No 100 Georgi Delaney TAKE 1 TABLET TWICE DAILY. 2021-08 00:00: 00 12-25 00:00 :00 No 300 Georgi Delaney TAKE 1 TABLET EVERY MORNING. 2021-08 00:00: 00 12-25 00:00 :00 No 300 Georgi Delaney TAKE 1 TABLET DAILY. 2021-08 00:00: 00 No 25 TAKE 1 TABLET DAILY. 2021-08 00:00: 00 12-25 00:00 :00 No 25 Georgi Delaney TAKE 1 TABLET TWICE DAILY. 2021-08 00:00: 00 No TAKE 1 TABLET 3 TIMES DAILY. 2021-08 00:00: 00 No TAKE 1 TABLET DAILY. 2021-08 00:00: 00 No TAKE 1 TABLET AT BEDTIME. 2021-08 00:00: 00 No Dose Unknown 2021-08 00:00: 00 No Dose Unknown 2021-08 00:00: 00 No Dose Unknown 2021-08 00:00: 00 No Dose Unknown 2021-08 00:00: 00 No TAKE 1 TABLET BY MOUTH EVERY 8 HOURS NEEDED FOR MUSCLE SPASMS 2021-08 00:00: 00 No Dose Unknown 2022-1 2-15 00:00: 00 No Dose Unknown 2021-08 2-15 00:00: 00 No Dose Unknown 2021-08 2-15 00:00: 00 No Dose Unknown 2021-08 2-15 00:00: 00 No Dose Unknown 2021-08 2-15 00:00: 00 No Dose Unknown 2021-08 2-15 00:00: 00 No Dose Unknown 2021-08 2-15 00:00: 00 No Dose Unknown 2021-08 2-15 00:00: 00 No Dose Unknown 2021-08 2-15 00:00: 00 No Dose Unknown 2021-08 2-15 00:00: 00 Yes Georgi F Rhett Dose Unknown 2021-08 2-15 00:00: 00 Yes Georgi F Rhett Dose Unknown 2021-08 2-15 00:00: 00 Yes Georgi F Rhett TAKE 1 TABLET BY MOUTH EVERY 8 HOURS NEEDED FOR MUSCLE SPASMS 2021-08 2-15 00:00: 00 Yes Georgi F Rhett Dose Unknown 2021-08 2-15 00:00: 00 Yes Georgi F Rhett Dose Unknown 2021-08 2-15 00:00: 00 Yes Georgi F Rhett Dose Unknown 2021-08 2-15 00:00: 00 Yes Georgi F Rhett Dose Unknown 2021-08 2-15 00:00: 00 Yes Georgi F Rhett Dose Unknown 2021-08 2-15 00:00: 00 Yes Georgi F Rhett TAKE 1 TABLET TWICE DAILY. 2021-08 2-15 00:00: 00 12-25 00:00 :00 No Georgi F Rhett TAKE 1 TABLET 3 TIMES DAILY. 2021-08 2-15 00:00: 00 12-25 00:00 :00 No Georgi F Rhett TAKE 1 TABLET DAILY. 2021-08 2-15 00:00: 00 12-25 00:00 :00 No Georgi F Rhett TAKE 1 TABLET AT BEDTIME. 2021-08 2-15 00:00: 00 12-25 00:00 :00 No Georgi F Rhett Dose Unknown 2021-08 2-15 00:00: 00 12-25 00:00 :00 No Georgi F Rhett Dose Unknown 2021-08 2-15 00:00: 00 12-25 00:00 :00 No Georgi F Rhett Dose Unknown 2021-08 215 00:00: 00 12-25 00:00 :00 No Georgi F Rhett Dose Unknown 2021-08 215 00:00: 00 12-25 00:00 :00 No Georgi F Rhett Dose Unknown 2021-08 215 00:00: 00 12-25 00:00 :00 No Georgi F Rhett TAKE 1 TABLET DAILY. 2021-08 00:00: 00 No TAKE 1 TABLET DAILY. 2021-08 00:00: 00 No TAKE 1 TABLET DAILY. 2021-08 116 00:00: 00 12-25 00:00 :00 No Georgi F Rhett TAKE 1 TABLET DAILY. 2021-08 0 00:00: 00 No 112 TAKE 1 TABLET DAILY. 2021-08 0 00:00: 00 12-25 00:00 :00 No 112 Georgi Delaney BUPROPION HCL XL 150 MG 2021-08 0-18 00:00: 00 Yes Georgi F Rhett Dose Unknown 2-0 8-08 00:00: 00 No Dose Unknown 2-0 8-08 00:00: 00 No Dose Unknown 2-0 8-08 00:00: 00 No Dose Unknown 2-0 8-08 00:00: 00 No Dose Unknown 2022-0 8-08 00:00: 00 No Dose Unknown 2-0 8-08 00:00: 00 No Dose Unknown 2-0 8-08 00:00: 00 No Dose Unknown 2022-0 8-08 00:00: 00 No Dose Unknown 2022-0 8-08 00:00: 00 No Dose Unknown 2-0 8-08 00:00: 00 No Dose Unknown 2-0 8-08 00:00: 00 No Dose Unknown 2-0 8-08 00:00: 00 No Dose Unknown 2022-0 8-08 00:00: 00 Yes Georgi F Rhett Dose Unknown 2022-0 8-08 00:00: 00 Yes Georgi F Rhett Dose Unknown 2022-0 8-08 00:00: 00 Yes Georgi F Rhett Dose Unknown 2022-0 8-03 00:00: 00 No Dose Unknown 2022-0 8 00:00: 00 No Dose Unknown 2021-0 8 00:00: 00 No Dose Unknown 2021-0 8 00:00: 00 No Dose Unknown 0 03-15 00:00: 00 Yes Georgi Delaney Wellbutrin XL 300 mg 24 hr tablet, extended release 0 03-14 00:00: 00 No 1mg Trileptal 150 mg tablet 2021-0 8 00:00: 00 No 1mg buspirone 10 mg tablet 2021-0 03-14 00:00: 00 No 1mg Dose Unknown 2021-0 8 00:00: 00 No Dose Unknown 2021-0 8 00:00: 00 No Dose Unknown 2021-0 03-14 00:00: 00 No Dose Unknown 0 03-14 00:00: 00 No Dose Unknown 0 03-14 00:00: 00 No Dose Unknown 0 03-14 00:00: 00 No TAKE 1 TABLET TWICE DAILY. 2021-0 03-14 00:00: 00 No TAKE 1 TABLET AT BEDTIME. 2021-0 03-14 00:00: 00 No Dose Unknown 0 03-14 00:00: 00 No Dose Unknown 0 03-14 00:00: 00 No Dose Unknown 2021-0 03-14 00:00: 00 No Dose Unknown 0 03-14 00:00: 00 No Dose Unknown 0 03-14 00:00: 00 No Dose Unknown 0 03-14 00:00: 00 No Dose Unknown 0 03-14 00:00: 00 No Wellbutrin XL 300 mg 24 hr tablet, extended release 2021-0 03-14 00:00: 00 No 1mg Trileptal 150 mg tablet 2021-0 8 00:00: 00 No 1mg buspirone 10 mg tablet 2021-0 03-14 00:00: 00 No 1mg Seroquel 100 mg tablet 2021-0 8 00:00: 00 No 1mg Dose Unknown 2021-0 8 00:00: 00 No Dose Unknown 2021-0 8 00:00: 00 No Dose Unknown 2021-0 8- 00:00: 00 No Dose Unknown 2022-0 8- 00:00: 00 No Dose Unknown 2-0 8- 00:00: 00 No Wellbutrin XL 300 mg 24 hr tablet, extended release 2-0 8- 00:00: 00 No 1mg Trileptal 150 mg tablet 2-0 8- 00:00: 00 No 1mg buspirone 10 mg tablet 2-0 8- 00:00: 00 No 1mg Dose Unknown 2022-0 8- 00:00: 00 No Dose Unknown 2-0 8 00:00: 00 No Dose Unknown 2-0 8 00:00: 00 No Dose Unknown 2-0 8 00:00: 00 No Dose Unknown 2-0 8- 00:00: 00 No Dose Unknown 2-0 8 00:00: 00 No Wellbutrin XL 300 mg 24 hr tablet, extended release 2-0 8- 00:00: 00 Yes 1mg Georgi Delaney Trileptal 150 mg tablet 2-0 8- 00:00: 00 Yes 1mg Georgi Delaney buspirone 10 mg tablet 2-0 8- 00:00: 00 Yes 1mg Georgi Delaney Seroquel 100 mg tablet 2021-0 8- 00:00: 00 Yes 1mg Georgi Delaney Dose Unknown 2021-0 8- 00:00: 00 Yes Georgi F Rhett Dose Unknown 2-0 8- 00:00: 00 Yes Georgi F Rhett Dose Unknown 2021-0 8- 00:00: 00 Yes Georgi F Rhett Dose Unknown 2-0 8- 00:00: 00 Yes Georgi F Rhett Dose Unknown 2-0 8- 00:00: 00 Yes Georgi F Rhett Dose Unknown 2-0 8- 00:00: 00 Yes 300 Georgi F Rhett Dose Unknown 2-0 8- 00:00: 00 Yes 10 Georgi F Rhett Dose Unknown 2-0 7 00:00: 00 No Dose Unknown 2-0 7 00:00: 00 No Dose Unknown 2-0 7 00:00: 00 No Dose Unknown 2-0 7 00:00: 00 No Dose Unknown 2022-0 730 00:00: 00 No Dose Unknown 2022-0 730 00:00: 00 No Dose Unknown 2022-0 730 00:00: 00 No Dose Unknown 2022-0 730 00:00: 00 No Dose Unknown 2022-0 730 00:00: 00 No Dose Unknown 2022-0 7 00:00: 00 No Dose Unknown 2022-0 730 00:00: 00 No Dose Unknown 2022-0 730 00:00: 00 No Dose Unknown 2022-0 730 00:00: 00 No Dose Unknown 2022-0 7 00:00: 00 No Dose Unknown 2022-0 7 00:00: 00 No Dose Unknown 2022-0 730 00:00: 00 No Dose Unknown 2022-0 730 00:00: 00 Yes Georgi Delaney Dose Unknown 2022-0 7 00:00: 00 Yes Georgi Dealney Dose Unknown 2022-0 7 00:00: 00 Yes Georgi Delaney Dose Unknown 2022-0 7 00:00: 00 Yes Georgi Delaney Dose Unknown 2022-0 7 00:00: 00 No Dose Unknown 2022-0 7 00:00: 00 No Dose Unknown 2022-0 7 00:00: 00 No Dose Unknown 2022-0 7 00:00: 00 No Dose Unknown 2022-0 7 00:00: 00 Yes Georgi Delaney Dose Unknown 2022-0 7 00:00: 00 No [...] 7-21 00:00: 00 No Dose Unknown 2022-0 7-21 [...] No Dose Unknown 2022-0 7 00:00: 00 Yes Georgi Delaney Dose Unknown 2022-0 7 00:00: 00 Yes Georgi Delaney Dose Unknown 2022-0 7 00:00: 00 Yes Georgi Delaney Dose Unknown 2022-0 7 00:00: 00 Yes Georgi Delaney Dose Unknown 2022-0 7 00:00: 00 Yes Georgi Delaney Dose Unknown 2022-0 7 00:00: 00 No Dose Unknown 2022-0 7 00:00: 00 No Dose Unknown 2022-0 720 00:00: 00 No Dose Unknown 2022-0 720 00:00: 00 No Dose Unknown 2022-0 720 00:00: 00 No Dose Unknown 2022-0 720 00:00: 00 Yes Georgi Delaney Wellbutrin XL 300 mg 24 hr tablet, extended release 2022-0 02-28 00:00: 00 No 1mg buspirone 10 mg tablet 2022-0 7 00:00: 00 No 1mg Dose Unknown 2022-0 7 00:00: 00 No Dose Unknown 2022-0 7 00:00: 00 No Dose Unknown 2022-0 7 00:00: 00 No Dose Unknown 2022-0 7 00:00: 00 No Dose Unknown 2021-0 02-28 00:00: 00 No Dose Unknown 2021-0 02-28 00:00: 00 No TAKE 1 TABLET AT BEDTIME. 2021-0 02-28 00:00: 00 No Dose Unknown 0 02-28 00:00: 00 No Dose Unknown 0 02-28 00:00: 00 No Dose Unknown 0 02-28 00:00: 00 No Dose Unknown 0 02-28 00:00: 00 No Dose Unknown 0 02-28 00:00: 00 No Dose Unknown 0 02-28 00:00: 00 No Dose Unknown 2021-0 02-28 00:00: 00 No Wellbutrin XL 300 mg 24 hr tablet, extended release 2021-0 02-28 00:00: 00 No 1mg buspirone 10 mg tablet 2021-0 02-28 00:00: 00 No 1mg Lamictal 25 mg tablet 2021-0 02-28 00:00: 00 No 2mg Seroquel 100 [...] 00:00: 00 No Seroquel 100 mg tablet 2021-0 02-28 00:00: 00 No 1mg Dose Unknown 2021-0 02-28 00:00: 00 No Dose Unknown 0 02-28 00:00: 00 No Dose Unknown 0 02-28 00:00: 00 No Dose Unknown 2021-0 02-28 00:00: 00 No Wellbutrin XL 300 mg 24 hr tablet, extended release 2-0 02-28 00:00: 00 No 1mg buspirone 10 mg tablet 2022-0 719 00:00: 00 No 1mg Dose Unknown 2022-0 719 00:00: 00 No Dose Unknown 2022-0 719 00:00: 00 No Dose Unknown 2022-0 719 00:00: 00 No Dose Unknown 2022-0 719 00:00: 00 No Dose Unknown 2022-0 7 00:00: 00 No Dose Unknown 2022-0 7 00:00: 00 No Wellbutrin XL 300 mg 24 hr tablet, extended release 2-0 02-28 00:00: 00 Yes 1mg Georgi Delaney buspirone 10 mg tablet 2021-0 02-28 00:00: 00 Yes 1mg Georgi Delaney Lamictal 25 mg tablet 2021-0 02-28 00:00: 00 Yes 2mg Georgi Delaney Seroquel 100 mg tablet 0 02-28 00:00: 00 Yes 1mg Georgi Delaney Dose Unknown 2021-0 02-28 00:00: 00 Yes Geogri Delanye Dose Unknown 2021-0 02-28 00:00: 00 Yes Georgi Delaney Dose Unknown 2-0 02-28 00:00: 00 Yes Georgi Delaney Dose Unknown 2-0 02-28 00:00: 00 Yes Georgi Delaney Dose Unknown 2-0 02-22 00:00: 00 No Dose Unknown 2022-0 7 00:00: 00 No Dose Unknown 2022-0 7 00:00: 00 No Dose Unknown 2022-0 7 00:00: 00 No Dose Unknown 2022-0 7 00:00: 00 No Dose Unknown 2022-0 7 00:00: 00 No Dose Unknown 2022-0 7 00:00: 00 No Dose Unknown 2022-0 7 00:00: 00 No Dose Unknown 2022-0 713 00:00: 00 No Dose Unknown 2022-0 7-13 00:00: 00 No Dose Unknown 2022-0 713 00:00: 00 No Dose Unknown 2022-0 713 00:00: 00 No Dose Unknown 2022-0 7-13 00:00: 00 No Dose Unknown 2022-0 713 00:00: 00 No Dose Unknown 2022-0 7- 00:00: 00 No Dose Unknown 2022-0 7 00:00: 00 No Dose Unknown 2022-0 7 00:00: 00 No Dose Unknown 2022-0 7 00:00: 00 No Dose Unknown 2022-0 7 00:00: 00 No Dose Unknown 2022-0 7 00:00: 00 No Dose Unknown 2022-0 7 00:00: 00 Yes Georgi Delaney Dose Unknown 2022-0 7 00:00: 00 Yes Georgi Delaney Dose Unknown 2022-0 7 00:00: 00 Yes Georgi Delaney Dose Unknown 2022-0 7 00:00: 00 Yes Georgi Delaney Dose Unknown 2022-0 7 00:00: 00 No [...] 7 00:00: 00 No Dose Unknown 2022-0 7- 00:00: 00 No Dose Unknown 2022-0 7 00:00: 00 No Dose Unknown 2022-0 02-16 00:00: 00 No Dose Unknown 2022-0 02-16 00:00: 00 No Dose Unknown 2022-0 02-16 00:00: 00 No Dose Unknown 2022-0 02-16 00:00: 00 No Dose Unknown 2022-0 02-16 00:00: 00 No Dose Unknown 2022-0 02-16 00:00: 00 No Dose Unknown 2022-0 02-16 00:00: 00 No Dose Unknown 2022-0 02-16 00:00: 00 Yes Georgi Delaney Dose Unknown 2022-0 02-16 00:00: 00 Yes Georgi Delaney Dose Unknown 2022-0 02-16 00:00: 00 Yes Georgi Delaney Dose Unknown 2-0 02-16 00:00: 00 Yes Georgi Delaney Dose Unknown 2-0 02-16 00:00: 00 Yes Georgi Delaney Dose Unknown 2-0 02-16 00:00: 00 Yes Georgi Delaney Dose Unknown 2-0 02-15 00:00: 00 No Dose Unknown 2-0 02-15 00:00: 00 No Dose Unknown 2-0 02-15 00:00: 00 No Dose Unknown 2022-0 02-15 00:00: 00 No Dose Unknown 2022-0 02-15 00:00: 00 No Dose Unknown 2-0 02-15 00:00: 00 Yes Georgi Delaney Wellbutrin XL 300 mg 24 hr tablet, extended release 2-0 02-14 00:00: 00 No 1mg buspirone 10 mg tablet 2-0 02-14 00:00: 00 No 1mg Seroquel 100 mg tablet 2-0 02-14 00:00: 00 No 1mg Dose Unknown 2-0 02-14 00:00: 00 No Dose Unknown 2022-0 02-14 00:00: 00 No Dose Unknown 2022-0 02-14 00:00: 00 No Dose Unknown 2-0 02-14 00:00: 00 No Wellbutrin XL 300 [...] 00 No 1mg Lamictal 25 mg tablet 2021-0 02-14 00:00: 00 No [...] tablet, extended release 2021-0 02-14 00:00: 00 Yes 1mg Georgi Delaney buspirone 10 mg tablet 2021-0 02-14 00:00: 00 Yes 1mg Georgi Delaney Seroquel 100 mg tablet 2021-0 02-14 00:00: 00 Yes 1mg Georgi Delaney Lamictal 25 mg tablet 2021-0 02-14 00:00: 00 Yes 1mg Georgi Delaney Dose Unknown 2021-0 02-14 00:00: 00 Yes Georgi Delaney Dose Unknown 2021-0 02-14 00:00: 00 Yes Georgi Delaney Dose Unknown 2021-0 02-14 00:00: 00 Yes Georgi Delaney Dose Unknown 0 02-09 00:00: 00 No Dose Unknown 2021-0 02-09 00:00: 00 No Dose Unknown 2021-0 02-09 00:00: 00 No Dose Unknown 2022-0 02-09 00:00: 00 No Dose Unknown 2-0 02-09 00:00: 00 No Dose Unknown 2021-0 02-09 00:00: 00 No Dose Unknown 2-0 02-09 00:00: 00 No Dose Unknown 2022-0 02-09 00:00: 00 No Dose Unknown 2-0 02-09 00:00: 00 No Dose Unknown 2021-0 02-09 00:00: 00 No Dose Unknown 2-0 02-09 00:00: 00 Yes Georgi Delaney Dose Unknown 0 02-09 00:00: 00 Yes Georgi Delaney levothyroxi ne 112 mcg tablet 2021-0 01-19 00:00: 00 No 1mcg Dose Unknown 2021-0 01-19 00:00: 00 No levothyroxi ne 112 mcg tablet 2-0 01-19 00:00: 00 No 1mcg levothyroxi ne 112 mcg tablet 2-0 01-19 00:00: 00 No 1mcg levothyroxi ne 112 mcg tablet 2-0 01-19 00:00: 00 No 1mcg levothyroxi ne 112 mcg tablet 2-0 01-19 00:00: 00 Yes 1mcg Georgi Delaney Dose Unknown 2021-0 01-19 00:00: 00 Yes 112 Georgi Delaney Dose Unknown 2021-0 01-19 00:00: 00 Yes 112 Georgi Delaney TAKE 1 TABLET DAILY. 0 - 00:00: 00 No levothyroxi ne 50 mcg tablet 0 01-18 00:00: 00 No 1mcg TAKE 1 TABLET DAILY. 0 01-18 00:00: 00 No Dose Unknown 0 - 00:00: 00 No chlorthalid one 25 mg tablet 0 - 00:00: 00 No 1mg levothyroxi ne 50 mcg tablet 0 01-18 00:00: 00 No 1mcg chlorthalid one 25 mg tablet 0 01-18 00:00: 00 No 1mg levothyroxi ne 50 mcg tablet 0 01-18 00:00: 00 No 1mcg chlorthalid one 25 mg tablet 0 01-18 00:00: 00 No 1mg levothyroxi ne 50 mcg tablet 0 01-18 00:00: 00 No 1mcg chlorthalid one 25 mg tablet 0 01-18 00:00: 00 Yes 1mg Georgi Delaney levothyroxi ne 50 mcg tablet 0 01-18 00:00: 00 Yes 1mcg Georgi Delaney spironolact one 100 mg tablet 0 12-22 00:00: 00 No 1mg ibuprofen 800 mg tablet 0 12-22 00:00: 00 No 1mg Dose Unknown 0 12-22 00:00: 00 No Dose Unknown 0 12-22 00:00: 00 No spironolact one 100 mg tablet 2021-0 12-22 00:00: 00 No 1mg ibuprofen 800 mg tablet 2021-0 - 00:00: 00 No 1mg spironolact one 100 mg tablet 2021-0 - 00:00: 00 No 1mg ibuprofen 800 mg tablet 2021-0 - 00:00: 00 No 1mg spironolact one 100 mg tablet 0 12 00:00: 00 No 1mg ibuprofen 800 mg tablet 2021-0 -12 00:00: 00 No 1mg spironolact one 100 mg tablet 2021-0 - 00:00: 00 Yes 1mg Georgi Delaney ibuprofen 800 mg tablet 0 - 00:00: 00 Yes 1mg Georgi Delaney Wellbutrin XL 300 mg 24 hr tablet, extended release 0 - 00:00: 00 No 1mg Dose Unknown 0 - 00:00: 00 No buspirone 10 mg tablet 0 5- 00:00: 00 No 1mg Dose Unknown 0 - 00:00: 00 No TAKE 1 TABLET AT BEDTIME. 0 - 00:00: 00 No Dose Unknown 0 - 00:00: 00 No Dose Unknown 0 - 00:00: 00 No Dose Unknown 0 - 00:00: 00 No Wellbutrin XL 300 mg 24 hr tablet, extended release 0 - 00:00: 00 No 1mg Celexa 20 mg tablet 0 5- 00:00: 00 No 1mg buspirone 10 mg tablet 0 - 00:00: 00 No 1mg Seroquel 100 mg tablet 0 - 00:00: 00 No 1mg Wellbutrin XL 300 mg 24 hr tablet, extended release 0 - 00:00: 00 No 1mg Dose Unknown 0 - 00:00: 00 No buspirone 10 mg tablet 0 - 00:00: 00 No 1mg Seroquel 100 mg tablet 0 5- 00:00: 00 No 1mg Wellbutrin XL 300 mg 24 hr tablet, extended release 0 - 00:00: 00 No 1mg Dose Unknown 0 - 00:00: 00 No buspirone 10 mg tablet 2021-0 5- 00:00: 00 No 1mg Dose Unknown 0 - 00:00: 00 No Wellbutrin XL 300 mg 24 hr tablet, extended release 0 - 00:00: 00 Yes 1mg Georgi Delaney Celexa 20 mg tablet 0 5- 00:00: 00 Yes 1mg Georgi Delaney buspirone 10 mg tablet 0 5- 00:00: 00 Yes 1mg Georgi Delaney Seroquel 100 mg tablet 0 - 00:00: 00 Yes 1mg Georgi Delaney CITALOPRAM HBR 20 MG 2021-0 - 00:00: 00 Yes Georgi Delaney levothyroxi ne 25 mcg tablet 0 18 00:00: 00 No 1mcg Dose Unknown 0 18 00:00: 00 No levothyroxi ne 25 mcg tablet 2021-0 18 00:00: 00 No 1mcg levothyroxi ne 25 mcg tablet 2021-0 18 00:00: 00 No 1mcg levothyroxi ne 25 mcg tablet 2021-0 18 00:00: 00 No 1mcg levothyroxi ne 25 mcg tablet 0 18 00:00: 00 Yes 1mcg Georgi Delaney spironolact one 50 mg tablet 0 17 00:00: 00 No 1mg Dose Unknown 0 17 00:00: 00 No spironolact one 50 mg tablet 0 17 00:00: 00 No 1mg spironolact one 50 mg tablet 0 17 00:00: 00 No 1mg spironolact one 50 mg tablet 0 17 00:00: 00 No 1mg spironolact one 50 mg tablet 0 17 00:00: 00 Yes 1mg Georgi Delaney metformin ER 500 mg 24 hr tablet,exte nded release 0 14 00:00: 00 No 1mg spironolact one 50 mg tablet 0 14 00:00: 00 No 1mg levothyroxi ne 25 mcg tablet 0 14 00:00: 00 No 1mcg Dose Unknown 0 -14 00:00: 00 No Dose Unknown 0 14 00:00: 00 No Dose Unknown 0 14 00:00: 00 No Dose Unknown 0 -14 00:00: 00 No metformin ER 500 mg 24 hr tablet,exte nded release 0 14 00:00: 00 No 1mg spironolact one 50 mg tablet 11-24 00:00: 00 No 1mg levothyroxi ne 25 mcg tablet 11-24 00:00: 00 No 1mcg metformin ER 500 mg 24 hr tablet,exte nded release 11-24 00:00: 00 No 1mg spironolact one 50 mg tablet 11-24 00:00: 00 No 1mg levothyroxi ne 25 mcg tablet 11-24 00:00: 00 No 1mcg metformin ER 500 mg 24 hr tablet,exte nded release 11-24 00:00: 00 No 1mg spironolact one 50 mg tablet 11-24 00:00: 00 No 1mg levothyroxi ne 25 mcg tablet 11-24 00:00: 00 No 1mcg metformin ER 500 mg 24 hr tablet,exte nded release (gastric retention) 11-24 00:00: 00 Yes 1mg Georgi Delaney spironolact one 50 mg tablet 11-24 00:00: 00 Yes 1mg Georgi Delaney levothyroxi ne 25 mcg tablet 11-24 00:00: 00 Yes 1mcg Georgi Delaney Wellbutrin XL 300 mg 24 hr tablet, extended release 11-16 00:00: 00 No 1mg Dose Unknown 11-16 00:00: 00 No Wellbutrin XL 300 mg 24 hr tablet, extended release 11-16 00:00: 00 No 1mg Wellbutrin XL 300 mg 24 hr tablet, extended release 11-16 00:00: 00 No 1mg Wellbutrin XL 300 mg 24 hr tablet, extended release 11-16 00:00: 00 No 1mg Wellbutrin XL 300 mg 24 hr tablet, extended release 11-16 00:00: 00 Yes 1mg Georgi Delaney Dose Unknown 11-16 00:00: 00 Yes 300 Georgi Delaney Dose Unknown 11-15 00:00: 00 No Wellbutrin XL 300 mg 24 hr tablet, extended release 11-15 00:00: 00 No 1mg buspirone 10 mg tablet 2-0 4-05 00:00: 00 No 1mg Dose Unknown 2022-0 4-05 00:00: 00 No Dose Unknown 2-0 4-05 00:00: 00 No Dose Unknown 2-0 4-05 00:00: 00 No Dose Unknown 2-0 4-05 00:00: 00 No Celexa 20 mg tablet 2-0 4-05 00:00: 00 No 1mg Wellbutrin XL 300 mg 24 hr tablet, extended release 2-0 4-05 00:00: 00 No 1mg buspirone 10 mg tablet 2-0 4-05 00:00: 00 No 1mg Seroquel 100 mg tablet 2-0 4-05 00:00: 00 No 1mg Dose Unknown 2021-0 4-05 00:00: 00 No Dose Unknown 2-0 4-05 00:00: 00 No Dose Unknown 2021-0 4-05 00:00: 00 No TAKE 1 TABLET AT BEDTIME. 2-0 4-05 00:00: 00 No Wellbutrin XL 300 mg 24 hr tablet, extended release 2-0 4-05 00:00: 00 No 1mg Dose Unknown 2-0 4-05 00:00: 00 No Dose Unknown 2-0 4-05 00:00: 00 No Dose Unknown 2-0 4-05 00:00: 00 No Dose Unknown 2-0 4-05 00:00: 00 No Dose Unknown 2-0 4-05 00:00: 00 No Dose Unknown 2-0 4-05 00:00: 00 No Wellbutrin XL 300 mg 24 hr tablet, extended release 2-0 4-05 00:00: 00 No 1mg buspirone 10 mg tablet 2-0 4-05 00:00: 00 No 1mg Seroquel 100 mg tablet 2-0 4-05 00:00: 00 No 1mg Dose Unknown 2-0 4-05 00:00: 00 No Dose Unknown 2-0 4-05 00:00: 00 No Dose Unknown 2-0 4-05 00:00: 00 No Dose Unknown 2-0 4-05 00:00: 00 No Wellbutrin XL 300 mg 24 hr tablet, extended release 2022-0 4-05 00:00: 00 No 1mg buspirone 10 mg tablet 2-0 4-05 00:00: 00 No 1mg Dose Unknown 2022-0 4-05 00:00: 00 No Dose Unknown 2022-0 4-05 00:00: 00 No Dose Unknown 2022-0 4-05 00:00: 00 No Dose Unknown 2022-0 4-05 00:00: 00 No Celexa 20 mg tablet 2-0 4-05 00:00: 00 Yes 1mg Georgi Delaney Wellbutrin XL 300 mg 24 hr tablet, extended release 2-0 4-05 00:00: 00 Yes 1mg Georgi Delaney buspirone 10 mg tablet 2-0 4-05 00:00: 00 Yes 1mg Georgi Delaney Seroquel 100 mg tablet 2021-0 4-05 00:00: 00 Yes 1mg Georgi Delaney Dose Unknown 2-0 4-05 00:00: 00 Yes Georgi Delaney Dose Unknown 2022-0 4-05 00:00: 00 Yes Georgi Delaney Dose Unknown 2022-0 4-05 00:00: 00 Yes Georgi Delaney Dose Unknown 2022-0 3-03 00:00: 00 No [...] No Dose Unknown 2022-0 3-03 00:00: 00 Yes Georgi Delaney Dose Unknown 2022-0 3-03 00:00: 00 Yes Georgi Delaney Dose Unknown 2022-0 3-03 00:00: 00 Yes Georgi Delaney Dose Unknown 2022-0 3-03 00:00: 00 Yes Georgi Delaney Dose Unknown 2022-0 3-03 00:00: 00 Yes Georgi Delaney Dose Unknown 2022-0 3-03 00:00: 00 Yes Georgi Delaney Dose Unknown 2022-0 3-03 00:00: 00 Yes Georgi Delaney Dose Unknown 2022-0 3-03 00:00: 00 Yes Georgi Delaney Dose Unknown 2022-0 3-03 00:00: 00 Yes Georgi Delaney Dose Unknown 2022-0 3-03 00:00: 00 Yes 10 Georgi Delaney Dose Unknown 2022-0 3-03 00:00: 00 Yes Georgi Delaney Celexa 20 mg tablet 2022-0 2-25 00:00: [...] 20 mg tablet 2022-0 2-25 00:00: 00 Yes 1mg Georgi Delaney Dose Unknown 2022-0 2-25 00:00: 00 Yes Georgi F Rhett Dose Unknown 2022-0 2-25 00:00: 00 Yes Georgi F Rhett Dose Unknown 2022-0 2-25 00:00: 00 Yes Georgi F Rhett Dose Unknown 2022-0 2-25 00:00: 00 Yes Georgi F Rhett Dose Unknown 2022-0 2-25 00:00: 00 Yes Georgi Delaney Dose Unknown 2022-0 2-25 00:00: 00 Yes Georgi Delaney Dose Unknown 2022-0 2-25 00:00: 00 Yes 10 Georgi Johnson Rhett Dose Unknown 2022-0 2-08 00:00: 00 No [...] 00 No levothyroxi ne 25 mcg tablet 2-0 2-08 00:00: 00 No 1mcg Dose Unknown 2022-0 2-08 00:00: 00 Yes Georgi Delaney Celexa 20 mg tablet 2-0 2-08 00:00: 00 Yes 1mg Georgi Delaney Dose Unknown 2022-0 2-08 00:00: 00 Yes Georgi Delaney Dose Unknown 2022-0 2-08 00:00: 00 Yes Georgi Delaney Dose Unknown 2022-0 2-08 00:00: 00 Yes Georgi Delaney levothyroxi ne 25 mcg tablet 2-0 2-08 00:00: 00 Yes 1mcg Georgi Delaney Dose Unknown 2022-0 2-02 00:00: 00 No [...] No Dose Unknown 2022-0 2-02 00:00: 00 Yes Georgi Delaney Dose Unknown 2022-0 2-02 00:00: 00 Yes Georgi Delaney Dose Unknown 2022-0 2-02 00:00: 00 Yes Georgi Delaney Dose Unknown 2022-0 2-02 00:00: 00 Yes Georgi Delaney Wellbutrin XL 150 mg 24 hr tablet, [...] Dose Unknown 2-0 1-24 00:00: 00 No Wellbutrin XL 150 mg 24 hr tablet, extended release 2022-0 1-24 00:00: 00 No 1mg Dose Unknown 2-0 124 00:00: 00 No Dose Unknown 2-0 1-24 00:00: 00 No Dose Unknown 2-0 124 00:00: 00 No Wellbutrin XL 150 mg 24 hr tablet, extended release 2022-0 124 00:00: 00 Yes 1mg Georgi Delaney Dose Unknown 2-0 124 00:00: 00 Yes Georgi Delaney Dose Unknown 2-0 124 00:00: 00 Yes Georgi Delaney Dose Unknown 2-0 111 00:00: 00 No Wellbutrin XL 150 mg 24 hr tablet, extended release 2-0 1-11 00:00: 00 No 1mg Dose Unknown 2-0 1-11 00:00: 00 No Dose Unknown 2-0 111 00:00: 00 No Dose Unknown 2-0 111 00:00: 00 No Wellbutrin XL 150 mg 24 hr tablet, extended release 2-0 1-11 00:00: 00 No 1mg Dose Unknown 2-0 1-11 00:00: 00 No Dose Unknown 2-0 111 00:00: 00 No Dose Unknown 2-0 1-11 00:00: 00 No Wellbutrin XL 150 mg 24 hr tablet, extended release 2-0 1-11 00:00: 00 No 1mg Dose Unknown [...] mg 24 hr tablet, extended release 2022-0 1- 00:00: 00 No 1mg Dose Unknown 1- 00:00: 00 No Dose Unknown - 00:00: 00 No Wellbutrin XL 150 mg 24 hr tablet, extended release 1- 00:00: 00 Yes 1mg Georgi F Rhett Dose Unknown - 00:00: 00 Yes Georgi F Rhett Dose Unknown 2020-08 2- 00:00: 00 No Dose Unknown 2020-08- 00:00: 00 No Dose Unknown 2020-08 00:00: 00 No Zofran 4 mg tablet 2020-08 2- 00:00: 00 No 1mg Dose Unknown 2020-08 00:00: 00 No omeprazole 40 mg capsule,del ayed release 2020-08 2- 00:00: 00 No 1mg Zofran 4 mg tablet 2020-08 2- 00:00: 00 No 1mg Dose Unknown 2020-08 00:00: 00 No omeprazole 40 mg capsule,del ayed release 2020-08 2- 00:00: 00 No 1mg Zofran 4 mg tablet 2020-08 2- 00:00: 00 No 1mg Dose Unknown 2020-08 2- 00:00: 00 No omeprazole 40 mg capsule,del ayed release 2020-08 2- 00:00: 00 No 1mg Zofran 4 mg tablet 2020-08 2- 00:00: 00 No 1mg Dose Unknown 2020-08 2- 00:00: 00 No omeprazole 40 mg capsule,del ayed release 2020-08 2- 00:00: 00 No 1mg Zofran 4 mg tablet 2020-08 2- 00:00: 00 Yes 1mg Georgi Delaney Dose Unknown 2020-08 2- 00:00: 00 Yes Georgi Delaney omeprazole 40 mg capsule,del ayed release 2020-08 2- 00:00: 00 Yes 1mg Georgi Delaney maalox:diph enhydrAMINE :lidocaine 2 % viscous 1:1:1 ([facility]) oral suspension 15 mL 2020-08 2-15 21:00: 00 07-27 20:01 :00 No 15mL 15 mL, Oral (Swish & Swallow), ONCE, 1 dose, On Sun07/27/21 at 1500, Routine [facility] methocarbam oL (ROBAXIN) tablet 500 mg 2020-08 19:30: 00 07-27 18:29 :00 No 500mg 500 mg, Oral, ONCE, 1 dose, On Sun07/27/21 at 1330, Routine [facility] ketorolac (TORADOL) injection 30 mg 2020-08 19:30: 00 07-27 18:28 :00 No 30mg 30 mg, Slow IV Push, ONCE, 1 dose, On Sun07/27/21 at 1330, PAWEL
Fa culty member approving Restricted medication : Yamil MESSINA [facility] aspirin chewable tablet 324 mg 2020-08 19:30: 00 07-27 19:30 :00 No 324mg 324 mg, Oral, ONCE, 1 dose, On Sun07/27/21 at 1330, Routine [facility] Dose Unknown 2020-08 00:00: 00 No [...] 00:00: 00 No 1mg Dose Unknown 2020-08 2 00:00: 00 No Dose Unknown 2020-08 2 00:00: 00 Yes Georgi Delaney hydroxyzine HCl 50 mg tablet 2020-08 2 00:00: 00 Yes 1mg Georgi Delaney famotidine (PEPCID) 40 mg tablet 2020-08 2 00:00: 00 02-16 00:00 :00 No [id number] 40mg Take 1 tablet by mouth daily. [facility] ibuprofen 600 mg tablet 2020-08 00:00: 00 02-16 00:00 :00 No [id number] 600mg Take 1 tablet by mouth every 6 (six) hours as needed for Pain (scale 4-6). [facility] methocarbam oL 500 mg tablet 2020-08 00:00: 00 02-16 00:00 :00 No [id number] 500mg Take 1 tablet by mouth 4 (four) times daily. [facility] sertraline 100 mg tablet 2020-08 00:00: [...] sertraline 100 mg tablet 2020-08 00:00: 00 Yes 15mg Georgi Delaney hydroxyzine HCl 50 mg tablet 2020-08 00:00: 00 Yes 1mg Georgi Delaney trazodone 100 mg tablet 2020-08 00:00: 00 Yes 2mg Georgi Delaney acetaminoph en (TYLENOL) tablet 1,000 mg 2020-08 05:45: 00 06-25 04:43 :00 No 1000mg 1,000 mg, Oral, ONCE, 1 dose, On Sun06/24/21 at 2345, Routine [facility] Dose Unknown 2020-08 00:00: 00 No [...] No 1mg Dose Unknown 2020-08 00:00: 00 Yes Georgi Delaney Dose Unknown 2020-08 00:00: 00 Yes Georgi Delaney Abilify 2 mg tablet 2020-08 00:00: 00 Yes 1mg Georgi Delaney Zoloft 100 mg tablet 2020-08 018 00:00: 00 No 1mg Zoloft 100 mg tablet 2020-08 018 00:00: 00 No 1mg hydroxyzine HCl 50 [...] 100 mg tablet 2020-08 0-18 00:00: 00 Yes 1mg Georgi Delaney hydroxyzine HCl 50 mg tablet 2020-08 0-18 00:00: 00 Yes 1mg Georgi Delaney trazodone 100 mg tablet 2020-08 0-18 00:00: 00 Yes 1mg Georgi Delaney sertraline 50 mg tablet 2020-08 0-04 00:00: 00 No 1mg Dose Unknown 2020-08 0- 00:00: 00 No sertraline 50 mg tablet 2020-08 0- 00:00: 00 No 1mg Dose Unknown 2020-08 0- 00:00: 00 No sertraline 50 mg tablet 2020-08 0- 00:00: 00 No 1mg Dose Unknown 2020-08 0- 00:00: 00 No sertraline 50 mg tablet 2020-08 0- 00:00: 00 No 1mg Dose Unknown 2020-08 0- 00:00: 00 No sertraline 50 mg tablet 2020-08 0 00:00: 00 No 1mg Dose Unknown 2020-08 0 00:00: 00 No sertraline 50 mg tablet 2020-08 0 00:00: 00 Yes 1mg Georgi Delaney Dose Unknown 2020-08 0 00:00: 00 Yes Georgi Delaney sertraline 50 mg tablet 05-02 00:00: 00 [...] sertraline 50 mg tablet 05-02 00:00: 00 Yes 1mg Georgi Delaney Dose Unknown 05-02 00:00: 00 Yes Georgi Delaney levonorgest reL (LILETTA) IUD 1 Device 01-05 21:00: 00 01-05 21:00 :00 No [id number] 100 1{devic e} [facility] ibuprofen (IBU) tablet 800 mg 01-05 21:00: 00 01-05 21:00 :00 No [id number] 100 800mg [facility] levonorgest rel (LILETTA INTRAUTERIN E) 01-05 00:00: 00 01-05 04:59 :00 No by Intrauteri ne route. [facility] levonorgest rel (LILETTA INTRAUTERIN E) 01-05 00:00: 00 02-16 00:00 :00 No by Intrauteri ne route. [facility] ProAir HFA 90 mcg/actuati on aerosol inhaler 12-13 00:00: 00 No 2mcg/ac tuation Tessalon Perles 100 mg capsule - 00:00: 00 No 1mg ProAir HFA 90 mcg/actuati on aerosol inhaler 12-13 00:00: 00 No 2mcg/ac tuation Tessalon Perles 100 mg capsule - 00:00: 00 No 1mg ProAir HFA 90 mcg/actuati on aerosol inhaler 12-13 00:00: 00 No 2mcg/ac tuation ProAir HFA 90 mcg/actuati on aerosol inhaler - 00:00: 00 No 2mcg/ac tuation Tessalon Perles 100 mg capsule - 00:00: 00 No 1mg Tessalon Perles 100 mg capsule - 00:00: 00 No 1mg ProAir HFA 90 mcg/actuati on aerosol inhaler - 00:00: 00 No 2mcg/ac tuation Tessalon Perles 100 mg capsule - 00:00: 00 No 1mg ProAir HFA 90 mcg/actuati on aerosol inhaler - 00:00: 00 Yes 2mcg/ac tuation Georgi F Rhett Tessalon Perles 100 mg capsule 5- 00:00: 00 Yes 1mg Georgi F Rhett mupirocin 2 % topical ointment 11-19 00:00: [...] 2 % topical ointment 11-19 00:00: 00 Yes 1% Georgi Delaney clotrimazol e 1 % topical cream 11-19 00:00: 00 Yes 1% Georgi Delaney Diflucan 150 mg tablet 11-19 00:00: 00 Yes 1mg Georgi Delaney No known medications No [facility] No known medications No [facility] it[facility] No known medications No [facility] it[facility] Immunizations Ordered Immunization Name Filled Immunization Name Date Status Comments Source (Old) Pfizer-BioNTech COVID-19 Vaccine Bivalent Booster 12 years and older ([facility]) (Alexy-sucrose formulation) (Old) Pfizer-BioNTech COVID-19 Vaccine Bivalent Booster 12 years and older ([facility] CAP) (Alexy-sucrose formulation) 2023-03-07 00:00:00 Completed Georgimariama Delaney (Old) Pfizer-BioNTech COVID-19 Vaccine Bivalent Booster 12 years and older ([facility]) (Alexy-sucrose formulation) (Old) Pfizer-BioNTech COVID-19 Vaccine Bivalent Booster 12 years and older ([facility] CAP) (Alexy-sucrose formulation) 2023-03-07 00:00:00 Completed Georgi Delaney SARS-COV-2 COVID-19 PFIZER VACCINE 2020-12-02 00:00:00 Completed [facility] SARS-COV-2 COVID-19 PFIZER VACCINE 2020-12-02 00:00:00 Completed [facility] SARS-COV-2 COVID-19 PFIZER VACCINE 2020-12-02 00:00:00 Completed [facility] SARS-COV-2 COVID-19 PFIZER VACCINE 2020-12-02 00:00:00 Completed [facility] SARS-COV-2 COVID-19 PFIZER VACCINE 2020-12-02 00:00:00 Completed [facility] SARS-COV-2 COVID-19 PFIZER VACCINE 2020-12-02 00:00:00 Completed [facility] SARS-COV-2 COVID-19 PFIZER VACCINE 2020-12-02 00:00:00 Completed [facility] SARS-COV-2 COVID-19 PFIZER VACCINE 2020-12-02 00:00:00 Completed [facility] SARS-COV-2 COVID-19 PFIZER VACCINE 2020-12-02 00:00:00 Completed [facility] SARS-COV-2 COVID-19 PFIZER VACCINE 2020-12-02 00:00:00 Completed [facility] SARS-COV-2 COVID-19 PFIZER VACCINE 2020-12-02 00:00:00 Completed [facility] SARS-COV-2 COVID-19 PFIZER VACCINE 2020-12-02 00:00:00 Completed [facility] SARS-COV-2 COVID-19 PFIZER VACCINE 2020-12-02 00:00:00 Completed [facility] SARS-COV-2 COVID-19 PFIZER VACCINE 2020-12-02 00:00:00 Completed [facility] SARS-COV-2 COVID-19 PFIZER VACCINE 2020-12-02 00:00:00 Completed [facility] SARS-COV-2 COVID-19 PFIZER VACCINE 2020-12-02 00:00:00 Completed [facility] SARS-COV-2 COVID-19 PFIZER VACCINE 2020-12-02 00:00:00 Completed [facility] SARS-COV-2 COVID-19 PFIZER VACCINE 2020-12-02 00:00:00 Completed [facility] SARS-COV-2 COVID-19 PFIZER VACCINE 2020-12-02 00:00:00 Completed [facility] SARS-COV-2 COVID-19 PFIZER VACCINE 2020-12-02 00:00:00 Completed [facility] SARS-COV-2 COVID-19 PFIZER VACCINE 2020-12-02 00:00:00 Completed [facility] SARS-COV-2 COVID-19 PFIZER VACCINE 2020-12-02 00:00:00 Completed [facility] SARS-COV-2 COVID-19 PFIZER VACCINE 2020-12-02 00:00:00 Completed [facility] SARS-COV-2 COVID-19 PFIZER VACCINE 2020-12-02 00:00:00 Completed [facility] SARS-COV-2 COVID-19 PFIZER VACCINE 2020-12-02 00:00:00 Completed [facility] SARS-COV-2 COVID-19 PFIZER VACCINE 2020-12-02 00:00:00 Completed [facility] SARS-COV-2 COVID-19 PFIZER VACCINE 2020-12-02 00:00:00 Completed [facility] SARS-COV-2 COVID-19 PFIZER VACCINE 2020-12-02 00:00:00 Completed [facility] SARS-COV-2 COVID-19 PFIZER VACCINE 2020-12-02 00:00:00 Completed [facility] SARS-COV-2 COVID-19 PFIZER VACCINE 2020-12-02 00:00:00 Completed [facility] SARS-COV-2 COVID-19 PFIZER VACCINE 2020-12-02 00:00:00 Completed [facility] SARS-COV-2 COVID-19 PFIZER VACCINE 2020-12-02 00:00:00 Completed [facility] SARS-COV-2 COVID-19 PFIZER VACCINE 2020-12-02 00:00:00 Completed [facility] SARS-COV-2 COVID-19 PFIZER VACCINE 2020-12-02 00:00:00 Completed [facility] SARS-COV-2 COVID-19 PFIZER VACCINE 2020-12-02 00:00:00 Completed [facility] SARS-COV-2 COVID-19 PFIZER VACCINE 2020-12-02 00:00:00 Completed [facility] SARS-COV-2 COVID-19 PFIZER VACCINE 2020-12-02 00:00:00 Completed [facility] SARS-COV-2 COVID-19 PFIZER VACCINE 2020-12-02 00:00:00 Completed [facility] SARS-COV-2 COVID-19 PFIZER VACCINE 2020-12-02 00:00:00 Completed [facility] SARS-COV-2 COVID-19 PFIZER VACCINE 2020-12-02 00:00:00 Completed [facility] SARS-COV-2 COVID-19 PFIZER VACCINE 2020-12-02 00:00:00 Completed [facility] SARS-COV-2 COVID-19 PFIZER VACCINE 2020-12-02 00:00:00 Completed [facility] SARS-COV-2 COVID-19 PFIZER VACCINE 2020-12-02 00:00:00 Completed [facility] SARS-COV-2 COVID-19 PFIZER VACCINE 2020-12-02 00:00:00 Completed [facility] SARS-COV-2 COVID-19 PFIZER VACCINE 2020-12-02 00:00:00 Completed [facility] SARS-COV-2 COVID-19 PFIZER VACCINE 2020-12-02 00:00:00 Completed [facility] SARS-COV-2 COVID-19 PFIZER VACCINE 2020-12-02 00:00:00 Completed [facility] SARS-COV-2 COVID-19 PFIZER VACCINE 2020-12-02 00:00:00 Completed [facility] SARS-COV-2 COVID-19 PFIZER VACCINE 2020-12-02 00:00:00 Completed [facility] SARS-COV-2 COVID-19 PFIZER VACCINE 2020-12-02 00:00:00 Completed [facility] SARS-COV-2 COVID-19 PFIZER VACCINE 2020-12-02 00:00:00 Completed [facility] SARS-COV-2 COVID-19 PFIZER VACCINE 2020-12-02 00:00:00 Completed [facility] SARS-COV-2 COVID-19 PFIZER VACCINE 2020-12-02 00:00:00 Completed [facility] SARS-COV-2 COVID-19 PFIZER VACCINE 2020-12-02 00:00:00 Completed [facility] SARS-COV-2 COVID-19 PFIZER VACCINE 2020-12-02 00:00:00 Completed [facility] SARS-COV-2 COVID-19 PFIZER VACCINE 2020-12-02 00:00:00 Completed [facility] SARS-COV-2 COVID-19 PFIZER VACCINE 2020-12-02 00:00:00 Completed [facility] SARS-COV-2 COVID-19 PFIZER VACCINE 2020-11-09 00:00:00 Completed [facility] SARS-COV-2 COVID-19 PFIZER VACCINE 2020-11-09 00:00:00 Completed [facility] SARS-COV-2 COVID-19 PFIZER VACCINE 2020-11-09 00:00:00 Completed [facility] SARS-COV-2 COVID-19 PFIZER VACCINE 2020-11-09 00:00:00 Completed [facility] SARS-COV-2 COVID-19 PFIZER VACCINE 2020-11-09 00:00:00 Completed [facility] SARS-COV-2 COVID-19 PFIZER VACCINE 2020-11-09 00:00:00 Completed [facility] SARS-COV-2 COVID-19 PFIZER VACCINE 2020-11-09 00:00:00 Completed [facility] SARS-COV-2 COVID-19 PFIZER VACCINE 2020-11-09 00:00:00 Completed [facility] SARS-COV-2 COVID-19 PFIZER VACCINE 2020-11-09 00:00:00 Completed [facility] SARS-COV-2 COVID-19 PFIZER VACCINE 2020-11-09 00:00:00 Completed [facility] SARS-COV-2 COVID-19 PFIZER VACCINE 2020-11-09 00:00:00 Completed [facility] SARS-COV-2 COVID-19 PFIZER VACCINE 2020-11-09 00:00:00 Completed [facility] SARS-COV-2 COVID-19 PFIZER VACCINE 2020-11-09 00:00:00 Completed [facility] SARS-COV-2 COVID-19 PFIZER VACCINE 2020-11-09 00:00:00 Completed [facility] SARS-COV-2 COVID-19 PFIZER VACCINE 2020-11-09 00:00:00 Completed [facility] SARS-COV-2 COVID-19 PFIZER VACCINE 2020-11-09 00:00:00 Completed [facility] SARS-COV-2 COVID-19 PFIZER VACCINE 2020-11-09 00:00:00 Completed [facility] SARS-COV-2 COVID-19 PFIZER VACCINE 2020-11-09 00:00:00 Completed [facility] SARS-COV-2 COVID-19 PFIZER VACCINE 2020-11-09 00:00:00 Completed [facility] SARS-COV-2 COVID-19 PFIZER VACCINE 2020-11-09 00:00:00 Completed [facility] SARS-COV-2 COVID-19 PFIZER VACCINE 2020-11-09 00:00:00 Completed [facility] SARS-COV-2 COVID-19 PFIZER VACCINE 2020-11-09 00:00:00 Completed [facility] SARS-COV-2 COVID-19 PFIZER VACCINE 2020-11-09 00:00:00 Completed [facility] SARS-COV-2 COVID-19 PFIZER VACCINE 2020-11-09 00:00:00 Completed [facility] SARS-COV-2 COVID-19 PFIZER VACCINE 2020-11-09 00:00:00 Completed [facility] SARS-COV-2 COVID-19 PFIZER VACCINE 2020-11-09 00:00:00 Completed [facility] SARS-COV-2 COVID-19 PFIZER VACCINE 2020-11-09 00:00:00 Completed [facility] SARS-COV-2 COVID-19 PFIZER VACCINE 2020-11-09 00:00:00 Completed [facility] SARS-COV-2 COVID-19 PFIZER VACCINE 2020-11-09 00:00:00 Completed [facility] SARS-COV-2 COVID-19 PFIZER VACCINE 2020-11-09 00:00:00 Completed [facility] SARS-COV-2 COVID-19 PFIZER VACCINE 2020-11-09 00:00:00 Completed [facility] SARS-COV-2 COVID-19 PFIZER VACCINE 2020-11-09 00:00:00 Completed [facility] SARS-COV-2 COVID-19 PFIZER VACCINE 2020-11-09 00:00:00 Completed [facility] SARS-COV-2 COVID-19 PFIZER VACCINE 2020-11-09 00:00:00 Completed [facility] SARS-COV-2 COVID-19 PFIZER VACCINE 2020-11-09 00:00:00 Completed [facility] SARS-COV-2 COVID-19 PFIZER VACCINE 2020-11-09 00:00:00 Completed [facility] SARS-COV-2 COVID-19 PFIZER VACCINE 2020-11-09 00:00:00 Completed [facility] SARS-COV-2 COVID-19 PFIZER VACCINE 2020-11-09 00:00:00 Completed [facility] SARS-COV-2 COVID-19 PFIZER VACCINE 2020-11-09 00:00:00 Completed [facility] SARS-COV-2 COVID-19 PFIZER VACCINE 2020-11-09 00:00:00 Completed [facility] SARS-COV-2 COVID-19 PFIZER VACCINE 2020-11-09 00:00:00 Completed [facility] SARS-COV-2 COVID-19 PFIZER VACCINE 2020-11-09 00:00:00 Completed [facility] SARS-COV-2 COVID-19 PFIZER VACCINE 2020-11-09 00:00:00 Completed [facility] SARS-COV-2 COVID-19 PFIZER VACCINE 2020-11-09 00:00:00 Completed [facility] SARS-COV-2 COVID-19 PFIZER VACCINE 2020-11-09 00:00:00 Completed [facility] SARS-COV-2 COVID-19 PFIZER VACCINE 2020-11-09 00:00:00 Completed [facility] SARS-COV-2 COVID-19 PFIZER VACCINE 2020-11-09 00:00:00 Completed [facility] SARS-COV-2 COVID-19 PFIZER VACCINE 2020-11-09 00:00:00 Completed [facility] SARS-COV-2 COVID-19 PFIZER VACCINE 2020-11-09 00:00:00 Completed [facility] SARS-COV-2 COVID-19 PFIZER VACCINE 2020-11-09 00:00:00 Completed [facility] SARS-COV-2 COVID-19 PFIZER VACCINE 2020-11-09 00:00:00 Completed [facility] SARS-COV-2 COVID-19 PFIZER VACCINE 2020-11-09 00:00:00 Completed [facility] SARS-COV-2 COVID-19 PFIZER VACCINE 2020-11-09 00:00:00 Completed [facility] SARS-COV-2 COVID-19 PFIZER VACCINE 2020-11-09 00:00:00 Completed [facility] SARS-COV-2 COVID-19 PFIZER VACCINE 2020-11-09 00:00:00 Completed [facility] SARS-COV-2 COVID-19 PFIZER VACCINE 2020-11-09 00:00:00 Completed [facility] SARS-COV-2 COVID-19 PFIZER VACCINE 2020-11-09 00:00:00 Completed [facility] COVID-19 Bivalent vaccine PFIZER 12+ Unknown Completed Rolanda mathews Rosa SARS-COV-2 COVID-19 PFIZER VACCINE Unknown Completed [facility] SARS-COV-2 COVID-19 PFIZER VACCINE Unknown Completed [facility] SARS-COV-2 COVID-19 PFIZER VACCINE Unknown Completed [facility] SARS-COV-2 COVID-19 PFIZER VACCINE Unknown Completed [facility] SARS-COV-2 COVID-19 PFIZER VACCINE Unknown Completed [facility] SARS-COV-2 COVID-19 PFIZER VACCINE Unknown Completed [facility] SARS-COV-2 COVID-19 PFIZER VACCINE Unknown Completed [facility] SARS-COV-2 COVID-19 PFIZER VACCINE Unknown Completed [facility] SARS-COV-2 COVID-19 PFIZER VACCINE Unknown Completed [facility] SARS-COV-2 COVID-19 PFIZER VACCINE Unknown Completed [facility] SARS-COV-2 COVID-19 PFIZER VACCINE Unknown Completed [facility] SARS-COV-2 COVID-19 PFIZER VACCINE Unknown Completed [facility] SARS-COV-2 COVID-19 PFIZER VACCINE Unknown Completed [facility] SARS-COV-2 COVID-19 PFIZER VACCINE Unknown Completed [facility] SARS-COV-2 COVID-19 PFIZER VACCINE Unknown Completed [facility] SARS-COV-2 COVID-19 PFIZER VACCINE Unknown Completed [facility] SARS-COV-2 COVID-19 PFIZER VACCINE Unknown Completed [facility] SARS-COV-2 COVID-19 PFIZER VACCINE Unknown Completed [facility] SARS-COV-2 COVID-19 PFIZER VACCINE Unknown Completed [facility] SARS-COV-2 COVID-19 PFIZER VACCINE Unknown Completed [facility] SARS-COV-2 COVID-19 PFIZER VACCINE Unknown Completed [facility] SARS-COV-2 COVID-19 PFIZER VACCINE Unknown Completed [facility] SARS-COV-2 COVID-19 PFIZER VACCINE Unknown Completed [facility] SARS-COV-2 COVID-19 PFIZER VACCINE Unknown Completed [facility] SARS-COV-2 COVID-19 PFIZER VACCINE Unknown Completed [facility] SARS-COV-2 COVID-19 PFIZER VACCINE Unknown Completed [facility] SARS-COV-2 COVID-19 PFIZER VACCINE Unknown Completed [facility] SARS-COV-2 COVID-19 PFIZER VACCINE Unknown Completed [facility] SARS-COV-2 COVID-19 PFIZER VACCINE Unknown Completed [facility] SARS-COV-2 COVID-19 PFIZER VACCINE Unknown Completed [facility] SARS-COV-2 COVID-19 PFIZER VACCINE Unknown Completed [facility] SARS-COV-2 COVID-19 PFIZER VACCINE Unknown Completed [facility] SARS-COV-2 COVID-19 PFIZER VACCINE Unknown Completed [facility] SARS-COV-2 COVID-19 PFIZER VACCINE Unknown Completed [facility] SARS-COV-2 COVID-19 PFIZER VACCINE Unknown Completed [facility] SARS-COV-2 COVID-19 PFIZER VACCINE Unknown Completed [facility] SARS-COV-2 COVID-19 PFIZER VACCINE Unknown Completed [facility] SARS-COV-2 COVID-19 PFIZER VACCINE Unknown Completed [facility] SARS-COV-2 COVID-19 PFIZER VACCINE Unknown Completed [facility] SARS-COV-2 COVID-19 PFIZER VACCINE Unknown Completed [facility] SARS-COV-2 COVID-19 PFIZER VACCINE Unknown Completed [facility] SARS-COV-2 COVID-19 PFIZER VACCINE Unknown Completed [facility] SARS-COV-2 COVID-19 PFIZER VACCINE Unknown Completed [facility] SARS-COV-2 COVID-19 PFIZER VACCINE Unknown Completed [facility] SARS-COV-2 COVID-19 PFIZER VACCINE Unknown Completed [facility] SARS-COV-2 COVID-19 PFIZER VACCINE Unknown Completed [facility] SARS-COV-2 COVID-19 PFIZER VACCINE Unknown Completed [facility] SARS-COV-2 COVID-19 PFIZER VACCINE Unknown Completed [facility] SARS-COV-2 COVID-19 PFIZER VACCINE Unknown Completed [facility] SARS-COV-2 COVID-19 PFIZER VACCINE Unknown Completed [facility] SARS-COV-2 COVID-19 PFIZER VACCINE Unknown Completed [facility] SARS-COV-2 COVID-19 PFIZER VACCINE Unknown Completed [facility] SARS-COV-2 COVID-19 PFIZER VACCINE Unknown Completed [facility] SARS-COV-2 COVID-19 PFIZER VACCINE Unknown Completed [facility] SARS-COV-2 COVID-19 PFIZER VACCINE Unknown Completed [facility] SARS-COV-2 COVID-19 PFIZER VACCINE Unknown Completed [facility] SARS-COV-2 COVID-19 PFIZER VACCINE Unknown Completed [facility] SARS-COV-2 COVID-19 PFIZER VACCINE Unknown Completed [facility] SARS-COV-2 COVID-19 PFIZER VACCINE Unknown Completed [facility] SARS-COV-2 COVID-19 PFIZER VACCINE Unknown Completed [facility] SARS-COV-2 COVID-19 PFIZER VACCINE Unknown Completed [facility] SARS-COV-2 COVID-19 PFIZER VACCINE Unknown Completed [facility] SARS-COV-2 COVID-19 PFIZER VACCINE Unknown Completed [facility] SARS-COV-2 COVID-19 PFIZER VACCINE Unknown Completed [facility] SARS-COV-2 COVID-19 PFIZER VACCINE Unknown Completed [facility] SARS-COV-2 COVID-19 PFIZER VACCINE Unknown Completed [facility] SARS-COV-2 COVID-19 PFIZER VACCINE Unknown Completed [facility] SARS-COV-2 COVID-19 PFIZER VACCINE Unknown Completed [facility] SARS-COV-2 COVID-19 PFIZER VACCINE Unknown Completed [facility] SARS-COV-2 COVID-19 PFIZER VACCINE Unknown Completed [facility] SARS-COV-2 COVID-19 PFIZER VACCINE Unknown Completed [facility] SARS-COV-2 COVID-19 PFIZER VACCINE Unknown Completed [facility] SARS-COV-2 COVID-19 PFIZER VACCINE Unknown Completed [facility] SARS-COV-2 COVID-19 PFIZER VACCINE Unknown Completed [facility] SARS-COV-2 COVID-19 PFIZER VACCINE Unknown Completed [facility] SARS-COV-2 COVID-19 PFIZER VACCINE Unknown Completed [facility] SARS-COV-2 COVID-19 PFIZER VACCINE Unknown Completed [facility] SARS-COV-2 COVID-19 PFIZER VACCINE Unknown Completed [facility] SARS-COV-2 COVID-19 PFIZER VACCINE Unknown Completed [facility] SARS-COV-2 COVID-19 PFIZER VACCINE Unknown Completed [facility] SARS-COV-2 COVID-19 PFIZER VACCINE Unknown Completed [facility] SARS-COV-2 COVID-19 PFIZER VACCINE Unknown Completed [facility] SARS-COV-2 COVID-19 PFIZER VACCINE Unknown Completed [facility] SARS-COV-2 COVID-19 PFIZER VACCINE Unknown Completed [facility] SARS-COV-2 COVID-19 PFIZER VACCINE Unknown Completed [facility] SARS-COV-2 COVID-19 PFIZER VACCINE Unknown Completed [facility] SARS-COV-2 COVID-19 PFIZER VACCINE Unknown Completed [facility] SARS-COV-2 COVID-19 PFIZER VACCINE Unknown Completed [facility] SARS-COV-2 COVID-19 PFIZER VACCINE Unknown Completed [facility] SARS-COV-2 COVID-19 PFIZER VACCINE Unknown Completed [facility] SARS-COV-2 COVID-19 PFIZER VACCINE Unknown Completed [facility] SARS-COV-2 COVID-19 PFIZER VACCINE Unknown Completed [facility] SARS-COV-2 COVID-19 PFIZER VACCINE Unknown Completed [facility] SARS-COV-2 COVID-19 PFIZER VACCINE Unknown Completed [facility] SARS-COV-2 COVID-19 PFIZER VACCINE Unknown Completed [facility] SARS-COV-2 COVID-19 PFIZER VACCINE Unknown Completed [facility] SARS-COV-2 COVID-19 PFIZER VACCINE Unknown Completed [facility] SARS-COV-2 COVID-19 PFIZER VACCINE Unknown Completed [facility] SARS-COV-2 COVID-19 PFIZER VACCINE Unknown Completed [facility] SARS-COV-2 COVID-19 PFIZER VACCINE Unknown Completed [facility] SARS-COV-2 COVID-19 PFIZER VACCINE Unknown Completed [facility] SARS-COV-2 COVID-19 PFIZER VACCINE Unknown Completed [facility] SARS-COV-2 COVID-19 PFIZER VACCINE Unknown Completed [facility] SARS-COV-2 COVID-19 PFIZER VACCINE Unknown Completed [facility] SARS-COV-2 COVID-19 PFIZER VACCINE Unknown Completed [facility] SARS-COV-2 COVID-19 PFIZER VACCINE Unknown Completed [facility] SARS-COV-2 COVID-19 PFIZER VACCINE Unknown Completed [facility] SARS-COV-2 COVID-19 PFIZER VACCINE Unknown Completed [facility] SARS-COV-2 COVID-19 PFIZER VACCINE Unknown Completed [facility] SARS-COV-2 COVID-19 PFIZER VACCINE Unknown Completed [facility] SARS-COV-2 COVID-19 PFIZER VACCINE Unknown Completed [facility] SARS-COV-2 COVID-19 PFIZER VACCINE Unknown Completed [facility] SARS-COV-2 COVID-19 PFIZER VACCINE Unknown Completed [facility] SARS-COV-2 COVID-19 PFIZER VACCINE Unknown Completed [facility] SARS-COV-2 COVID-19 PFIZER VACCINE Unknown Completed [facility] SARS-COV-2 COVID-19 PFIZER VACCINE Unknown Completed [facility] SARS-COV-2 COVID-19 PFIZER VACCINE Unknown Completed [facility] SARS-COV-2 COVID-19 PFIZER VACCINE Unknown Completed [facility] SARS-COV-2 COVID-19 PFIZER VACCINE Unknown Completed [facility] SARS-COV-2 COVID-19 PFIZER VACCINE Unknown Completed [facility] SARS-COV-2 COVID-19 PFIZER VACCINE Unknown Completed [facility] SARS-COV-2 COVID-19 PFIZER VACCINE Unknown Completed [facility] SARS-COV-2 COVID-19 PFIZER VACCINE Unknown Completed [facility] SARS-COV-2 COVID-19 PFIZER VACCINE Unknown Completed [facility] SARS-COV-2 COVID-19 PFIZER VACCINE Unknown Completed [facility] SARS-COV-2 COVID-19 PFIZER VACCINE Unknown Completed [facility] SARS-COV-2 COVID-19 PFIZER VACCINE Unknown Completed [facility] SARS-COV-2 COVID-19 PFIZER VACCINE Unknown Completed [facility] SARS-COV-2 COVID-19 PFIZER VACCINE Unknown Completed [facility] SARS-COV-2 COVID-19 PFIZER VACCINE Unknown Completed [facility] SARS-COV-2 COVID-19 PFIZER VACCINE Unknown Completed [facility] SARS-COV-2 COVID-19 PFIZER VACCINE Unknown Completed [facility] SARS-COV-2 COVID-19 PFIZER VACCINE Unknown Completed [facility] SARS-COV-2 COVID-19 PFIZER VACCINE Unknown Completed [facility] SARS-COV-2 COVID-19 PFIZER VACCINE Unknown Completed [facility] SARS-COV-2 COVID-19 PFIZER VACCINE Unknown Completed [facility] SARS-COV-2 COVID-19 PFIZER VACCINE Unknown Completed [facility] SARS-COV-2 COVID-19 PFIZER VACCINE Unknown Completed [facility] SARS-COV-2 COVID-19 PFIZER VACCINE Unknown Completed [facility] SARS-COV-2 COVID-19 PFIZER VACCINE Unknown Completed [facility] SARS-COV-2 COVID-19 PFIZER VACCINE Unknown Completed [facility] SARS-COV-2 COVID-19 PFIZER VACCINE Unknown Completed [facility] SARS-COV-2 COVID-19 PFIZER VACCINE Unknown Completed [facility] SARS-COV-2 COVID-19 PFIZER VACCINE Unknown Completed [facility] SARS-COV-2 COVID-19 PFIZER VACCINE Unknown Completed [facility] SARS-COV-2 COVID-19 PFIZER VACCINE Unknown Completed [facility] SARS-COV-2 COVID-19 PFIZER VACCINE Unknown Completed [facility] SARS-COV-2 COVID-19 PFIZER VACCINE Unknown Completed [facility] SARS-COV-2 COVID-19 PFIZER VACCINE Unknown Completed [facility] SARS-COV-2 COVID-19 PFIZER VACCINE Unknown Completed [facility] SARS-COV-2 COVID-19 PFIZER VACCINE Unknown Completed [facility] SARS-COV-2 COVID-19 PFIZER VACCINE Unknown Completed [facility] SARS-COV-2 COVID-19 PFIZER VACCINE Unknown Completed [facility] SARS-COV-2 COVID-19 PFIZER VACCINE Unknown Completed [facility] SARS-COV-2 COVID-19 PFIZER VACCINE Unknown Completed [facility] SARS-COV-2 COVID-19 PFIZER VACCINE Unknown Completed [facility] SARS-COV-2 COVID-19 PFIZER VACCINE Unknown Completed [facility] SARS-COV-2 COVID-19 PFIZER VACCINE Unknown Completed [facility] SARS-COV-2 COVID-19 PFIZER VACCINE Unknown Completed [facility] SARS-COV-2 COVID-19 PFIZER VACCINE Unknown Completed [facility] SARS-COV-2 COVID-19 PFIZER VACCINE Unknown Completed [facility] SARS-COV-2 COVID-19 PFIZER VACCINE Unknown Completed [facility] SARS-COV-2 COVID-19 PFIZER VACCINE Unknown Completed [facility] SARS-COV-2 COVID-19 PFIZER VACCINE Unknown Completed [facility] SARS-COV-2 COVID-19 PFIZER VACCINE Unknown Completed [facility] SARS-COV-2 COVID-19 PFIZER VACCINE Unknown Completed [facility] SARS-COV-2 COVID-19 PFIZER VACCINE Unknown Completed [facility] SARS-COV-2 COVID-19 PFIZER VACCINE Unknown Completed [facility] SARS-COV-2 COVID-19 PFIZER VACCINE Unknown Completed [facility] SARS-COV-2 COVID-19 PFIZER VACCINE Unknown Completed [facility] SARS-COV-2 COVID-19 PFIZER VACCINE Unknown Completed [facility] SARS-COV-2 COVID-19 PFIZER VACCINE Unknown Completed [facility] SARS-COV-2 COVID-19 PFIZER VACCINE Unknown Completed [facility] SARS-COV-2 COVID-19 PFIZER VACCINE Unknown Completed [facility] SARS-COV-2 COVID-19 PFIZER VACCINE Unknown Completed [facility] SARS-COV-2 COVID-19 PFIZER VACCINE Unknown Completed [facility] SARS-COV-2 COVID-19 PFIZER VACCINE Unknown Completed [facility] SARS-COV-2 COVID-19 PFIZER VACCINE Unknown Completed [facility] SARS-COV-2 COVID-19 PFIZER VACCINE Unknown Completed [facility] SARS-COV-2 COVID-19 PFIZER VACCINE Unknown Completed [facility] SARS-COV-2 COVID-19 PFIZER VACCINE Unknown Completed [facility] SARS-COV-2 COVID-19 PFIZER VACCINE Unknown Completed [facility] SARS-COV-2 COVID-19 PFIZER VACCINE Unknown Completed [facility] SARS-COV-2 COVID-19 PFIZER VACCINE Unknown Completed [facility] SARS-COV-2 COVID-19 PFIZER VACCINE Unknown Completed [facility] SARS-COV-2 COVID-19 PFIZER VACCINE Unknown Completed [facility] SARS-COV-2 COVID-19 PFIZER VACCINE Unknown Completed [facility] SARS-COV-2 COVID-19 PFIZER VACCINE Unknown Completed [facility] SARS-COV-2 COVID-19 PFIZER VACCINE Unknown Completed [facility] SARS-COV-2 COVID-19 PFIZER VACCINE Unknown Completed [facility] SARS-COV-2 COVID-19 PFIZER VACCINE Unknown Completed [facility] SARS-COV-2 COVID-19 PFIZER VACCINE Unknown Completed [facility] SARS-COV-2 COVID-19 PFIZER VACCINE Unknown Completed [facility] SARS-COV-2 COVID-19 PFIZER VACCINE Unknown Completed [facility] SARS-COV-2 COVID-19 PFIZER VACCINE Unknown Completed [facility] SARS-COV-2 COVID-19 PFIZER VACCINE Unknown Completed [facility] SARS-COV-2 COVID-19 PFIZER VACCINE Unknown Completed [facility] SARS-COV-2 COVID-19 PFIZER VACCINE Unknown Completed [facility] SARS-COV-2 COVID-19 PFIZER VACCINE Unknown Completed [facility] SARS-COV-2 COVID-19 PFIZER VACCINE Unknown Completed [facility] SARS-COV-2 COVID-19 PFIZER VACCINE Unknown Completed [facility] SARS-COV-2 COVID-19 PFIZER VACCINE Unknown Completed [facility] SARS-COV-2 COVID-19 PFIZER VACCINE Unknown Completed [facility] SARS-COV-2 COVID-19 PFIZER VACCINE Unknown Completed [facility] SARS-COV-2 COVID-19 PFIZER VACCINE Unknown Completed [facility] SARS-COV-2 COVID-19 PFIZER VACCINE Unknown Completed [facility] SARS-COV-2 COVID-19 PFIZER VACCINE Unknown Completed [facility] SARS-COV-2 COVID-19 PFIZER VACCINE Unknown Completed [facility] SARS-COV-2 COVID-19 PFIZER VACCINE Unknown Completed [facility] SARS-COV-2 COVID-19 PFIZER VACCINE Unknown Completed [facility] SARS-COV-2 COVID-19 PFIZER VACCINE Unknown Completed [facility] SARS-COV-2 COVID-19 PFIZER VACCINE Unknown Completed [facility] Vital Signs Vital Name Observation Time Observation Value Comments S ource Systolic blood pressure 2024-02-05 20:12:00 120 mm[Hg] Rolanda Seybo ld - External Diastolic blood pressure 2024-02-05 20:12:00 80 mm[Hg] Rolanda Seybo ld - External Heart rate 2024-02-05 20:12:00 88 /min Kelse y Seybold - External Body temperature 2024-02-05 20:12:00 36.61 Cele Rolanda Seybold - External Respiratory rate 2024-02-05 20:12:00 16 /min Rolanda ybold - External Body height 2024-02-05 20:12:00 144.8 cm Reina ey Seybold - External Body weight 2024-02-05 20:12:00 120.203 kg Reina ey Seybold - External BMI 2024-02-05 20:12:00 57.35 kg/m2 Reina ey Seybold - External Systolic blood pressure 2023-12-26 14:03:00 134 mm[Hg] [facility] Diastolic blood pressure 2023-12-26 14:03:00 74 mm[Hg] [place] [facility] Heart rate 2023-12-26 14:03:00 76 /min Cristy [facility] Body temperature 2023-12-26 14:03:00 36.33 Cele [facility] Respiratory rate 2023-12-26 14:03:00 18 /min [facility] Body weight 2023-12-26 14:03:00 119.75 kg [facility] BMI 2023-12-26 14:03:00 53[facility]32 [facility] 2023-12-25 14:23:00 119 mm[Hg] [facility] Diastolic blood pressure 2023-12-25 14:23:00 79 mm[Hg] [facility] Heart rate 2023-12-25 14:23:00 96 /min Un[facility] Respiratory rate 2023-12-25 14:23:00 18 /min [facility] Body height 2023-12-25 14:23:00 149.9 [facility] 2023-12-25 14:23:00 118.706 kg [facility] BMI 2023-12-25 14:23:00 52.86 kg/m2 [facility] Oxygen saturation in Arterial blood by Pulse oximetry 2023-12-25 14:23:00 98 /min [facility] Systolic blood pressure 2023-11-29 04:39:00 154 mm[Hg] [facility] Diastolic blood pressure 2023-11-29 04:39:00 113 mm[Hg] [facility] Heart rate 2023-11-29 04:39:00 82 /min [facility] Body temperature 2023-11-29 04:39:00 37.28 Cele [facility] Respiratory rate 2023-11-29 04:39:00 18 /min [facility] Body height 2023-11-29 04:39:00 149.9 cm [facility] weight 2023-11-29 04:39:00 113.399 kg [facility] BMI 2023-11-29 04:39:00 50.49 kg/m2 [facility] Oxygen saturation in Arterial blood by Pulse oximetry 2023-11-29 04:39:00 100 /min [facility] Systolic blood pressure 2023-11-01 13:26:00 126 mm[Hg] [facility] Diastolic blood pressure 2023-11-01 13:26:00 84 mm[Hg] [facility] Heart rate 2023-11-01 13:26:00 74 /min [facility] Respiratory rate 2023-11-01 13:26:00 18 /min [facility] Body height 2023-11-01 13:26:00 147.3 cm [facility] Body weight 2023-11-01 13:26:00 119.84 kg [facility] BMI 2023-11-01 13:26:00 55.22 kg/m2 [facility] Oxygen saturation in Arterial blood by Pulse oximetry 2023-11-01 13:26:00 98 /min [facility] Systolic blood pressure 2023-10-17 07:43:00 96 mm[Hg] [facility] Diastolic blood pressure 2023-10-17 07:43:00 53 mm[Hg] [facility] Heart rate 2023-10-17 07:43:00 66 /min [facility] Body temperature 2023-10-17 07:43:00 36.5 Cele [facility] Oxygen saturation in Arterial blood by Pulse oximetry 2023-10-17 07:43:00 97 /min [facility] Respiratory rate 2023-10-17 05:50:00 16 /min [facility] Body height 2023-10-17 05:50:00 147.3 cm [facility] Body weight 2023-10-17 05:50:00 120.657 kg [facility] BMI 2023-10-17 05:50:00 55.59 kg/m2 [facility] Systolic blood pressure 2023-09-18 20:56:00 110 mm[Hg] [facility] Diastolic blood pressure 2023-09-18 20:56:00 76 mm[Hg] [facility] Heart rate 2023-09-18 20:56:00 76 /min [facility] Body height 2023-09-18 20:56:00 147.3 cm [facility] Body weight 2023-09-18 20:56:00 121.882 kg [facility] BMI 2023-09-18 20:56:00 56.16 kg/m2 [facility] Oxygen saturation in Arterial blood by Pulse oximetry 2023-09-18 20:56:00 97 /min [facility] Systolic blood pressure 2023-08-28 17:17:00 132 mm[Hg] [facility] Diastolic blood pressure 2023-08-28 17:17:00 89 mm[Hg] [facility] Heart rate 2023-08-28 17:17:00 71 /min [facility] Oxygen saturation in Arterial blood by Pulse oximetry 2023-08-28 17:17:00 100 /min [facility] Body temperature 2023-08-28 17:16:00 36.28 Cele [facility] Respiratory rate 2023-08-28 17:16:00 18 /min [facility] Body height 2023-08-28 17:16:00 147.3 cm [facility] Body weight 2023-08-28 17:16:00 123.242 kg [facility] BMI 2023-08-28 17:16:00 56.79 kg/m2 [facility] Systolic blood pressure 2023-05-24 13:14:00 135 mm[Hg] [facility] Diastolic blood pressure 2023-05-24 13:14:00 80 mm[Hg] [facility] Heart rate 2023-05-24 13:14:00 81 /min [facility] Respiratory rate 2023-05-24 13:14:00 18 /min [facility] Body height 2023-05-24 13:14:00 147.3 cm [facility] Body weight 2023-05-24 13:14:00 126.871 kg [facility] BMI 2023-05-24 13:14:00 58.46 kg/m2 [facility] Oxygen saturation in Arterial blood by Pulse oximetry 2023-05-24 13:14:00 99 /min [facility] Heart rate 2023-04-21 04:53:00 67 /min [facility] Body temperature 2023-04-21 04:53:00 36.61 Cele [facility] Oxygen saturation in Arterial blood by Pulse oximetry 2023-04-21 04:53:00 99 /min [facility] Systolic blood pressure 2023-04-21 04:00:00 104 mm[Hg] [facility] Diastolic blood pressure 2023-04-21 04:00:00 57 mm[Hg] [facility] Respiratory rate 2023-04-21 00:26:00 20 /min [facility] Body height 2023-04-21 00:26:00 144.8 cm [facility] Body weight 2023-04-21 00:26:00 126.1 kg [facility] BMI 2023-04-21 00:26:00 60.16 kg/m2 [facility] Systolic blood pressure 2023-03-19 19:10:00 137 mm[Hg] [facility] Diastolic blood pressure 2023-03-19 19:10:00 88 mm[Hg] [facility] Heart rate 2023-03-19 19:10:00 93 /min [facility] Respiratory rate 2023-03-19 19:10:00 18 /min [facility] Body height 2023-03-19 19:10:00 147.3 cm [facility] Body weight 2023-03-19 19:10:00 127.914 kg [facility] BMI 2023-03-19 19:10:00 58.94 kg/m2 [facility] Oxygen saturation in Arterial blood by Pulse oximetry 2023-03-19 19:10:00 98 /min [facility] Systolic blood pressure 2023-02-16 21:12:00 157 mm[Hg] [facility] Diastolic blood pressure 2023-02-16 21:12:00 95 mm[Hg] [facility] Heart rate 2023-02-16 21:12:00 95 /min [facility] Body height 2023-02-16 21:12:00 147.3 cm [facility] Body weight 2023-02-16 21:12:00 132.224 kg [facility] BMI 2023-02-16 21:12:00 60.92 kg/m2 [facility] Oxygen saturation in Arterial blood by Pulse oximetry 2023-02-16 21:12:00 98 /min [facility] Heart rate 2021-07-27 21:30:00 62 /min [facility] Respiratory rate 2021-07-27 21:30:00 22 /min [facility] Oxygen saturation in Arterial blood by Pulse oximetry 2021-07-27 21:30:00 95 /min [facility] Systolic blood pressure 2021-07-27 21:25:00 137 mm[Hg] [facility] Diastolic blood pressure 2021-07-27 21:25:00 77 mm[Hg] [facility] Body temperature 2021-07-27 18:35:24 36.78 Cele [facility] Body height 2021-07-27 18:02:00 147.3 cm [facility] Body weight 2021-07-27 18:02:00 124.739 kg [facility] BMI 2021-07-27 18:02:00 57.48 kg/m2 [facility] Systolic blood pressure 2021-06-25 05:00:00 134 mm[Hg] [facility] Diastolic blood pressure 2021-06-25 05:00:00 60 mm[Hg] [facility] Heart rate 2021-06-25 05:00:00 78 /min [facility] Respiratory rate 2021-06-25 05:00:00 27 /min [facility] Oxygen saturation in Arterial blood by Pulse oximetry 2021-06-25 05:00:00 97 /min [facility] Body temperature 2021-06-25 04:16:00 36.94 Cele [facility] Body height 2021-06-25 04:16:00 147.3 cm [facility] Body weight 2021-06-25 04:16:00 127.007 kg [facility] BMI 2021-06-25 04:16:00 58.52 kg/m2 [facility] Systolic blood pressure 2021-02-17 19:29:00 124 mm[Hg] [facility] Diastolic blood pressure 2021-02-17 19:29:00 88 mm[Hg] [facility] Heart rate 2021-02-17 19:29:00 89 /min [facility] Respiratory rate 2021-02-17 19:29:00 18 /min [facility] Body weight 2021-02-17 19:29:00 126[facility]281 [facility] 2021-02-17 19:29:00 56.23 kg/m2 [facility] Systolic blood pressure 2021-01-05 19:16:00 132 mm[Hg] [facility] Diastolic blood pressure 2021-01-05 19:16:00 88 mm[Hg] [facility] Heart rate 2021-01-05 19:16:00 89 /min [facility] Body temperature 2021-01-05 19:16:00 37.28 Cele [facility] Respiratory rate 2021-01-05 19:16:00 18 /min [facility] Body height 2021-01-05 19:16:00 149.9 cm [facility] Body weight 2021-01-05 19:16:00 125.51 kg [facility] BMI 2021-01-05 19:16:00 55.89 kg/m2 [facility] Systolic blood pressure 2020-12-07 19:42:00 124 mm[Hg] [facility] Diastolic blood pressure 2020-12-07 19:42:00 86 mm[Hg] [facility] Heart rate 2020-12-07 19:42:00 89 /min Unive [facility] Respiratory rate 2020-12-07 19:42:00 19 /min [facility] Body height 2020-12-07 19:42:00 152.4 cm [facility] 2020-12-07 19:42:00 127.551 kg Univ [facility] BMI 2020-12-07 19:42:00 54.92 kg/m2 [facility] BP Systolic 2023-12-27 08:23:00 115 mm[Hg] Lennox Delaney BP Diastolic 2023-12-27 08:23:00 58 mm[Hg] Oscar Delaney Weight Measured 2023-12-27 08:23:00 264.60 pounds Georgi Delaney Height Measured 2023-12-27 08:23:00 60.16 inches Georgi Delaney Body Temperature 2023-12-27 08:23:00 98.20 degrees Georgi Delaney Heart Rate 2023-12-27 08:23:00 64.00 /min Jane Delaney Respiratory Rate 2023-12-27 08:23:00 Georgi Delaney Systolic blood pressure 2023-12-26 14:03:00 134 mm[Hg] [place] [facility] Diastolic blood pressure 2023-12-26 14:03:00 74 mm[Hg] [facility] Heart rate 2023-12-26 14:03:00 76 /min Unive [facility] Body temperature 2023-12-26 14:03:00 36.33 Cele [facility] Respiratory rate 2023-12-26 14:03:00 18 /min [facility] Body weight 2023-12-26 14:03:00 119.75 kg [facility] BMI 2023-12-26 14:03:00 53.32 kg/m2 [facility] Body height 2023-12-25 14:23:00 149.9 cm [facility] Oxygen saturation in Arterial blood by Pulse oximetry 2023-12-25 14:23:00 98 /min [facility] Systolic blood pressure 2023-12-19 14:08:00 112 mm[Hg] [facility] Diastolic blood pressure 2023-12-19 14:08:00 79 mm[Hg] [facility] Heart rate 2023-12-19 14:08:00 77 /min Unive [facility] Respiratory rate 2023-12-19 14:08:00 20 /min [facility] Body height 2023-12-19 14:08:00 149.9 cm [facility] Body weight 2023-12-19 14:08:00 116.892 kg [facility] BMI 2023-12-19 14:08:00 52.05 kg/m2 [facility] Systolic blood pressure 2023-12-05 13:43:00 112 mm[Hg] [facility] Diastolic blood pressure 2023-12-05 13:43:00 80 mm[Hg] [facility] Heart rate 2023-12-05 13:43:00 73 /min Unive [facility] Respiratory rate 2023-12-05 13:43:00 20 /min [facility] Body height 2023-12-05 13:43:00 149.9 cm [facility] Body weight 2023-12-05 13:43:00 117.572 kg [facility] BMI 2023-12-05 13:43:00 52.35 kg/m2 [facility] Body temperature 2023-11-29 04:39:00 37.28 Cele [facility] Oxygen saturation in Arterial blood by Pulse oximetry 2023-11-29 04:39:00 100 /min [facility] BP Systolic 2023-11-06 10:25:00 131 mm[Hg] Step mariama Delaney BP Diastolic 2023-11-06 10:25:00 84 mm[Hg] Oscar Delaney Weight Measured 2023-11-06 10:25:00 263.60 pounds Georgi Delaney Height Measured 2023-11-06 10:25:00 60.16 inches Georgi Delaney Body Temperature 2023-11-06 10:25:00 98.40 degrees Georgi Delaney Heart Rate 2023-11-06 10:25:00 109.00 /min Step mariama Delaney Respiratory Rate 2023-11-06 10:25:00 19.00 /min Georgi Delaney Systolic blood pressure 2023-11-01 13:26:00 126 mm[Hg] [facility] Diastolic blood pressure 2023-11-01 13:26:00 84 mm[Hg] [facility] Heart rate 2023-11-01 13:26:00 74 /min [facility] Respiratory rate 2023-11-01 13:26:00 18 /min [facility] Body height 2023-11-01 13:26:00 147.3 cm [facility] Body weight 2023-11-01 13:26:00 119.84 kg [facility] BMI 2023-11-01 13:26:00 55.22 kg/m2 [facility] Oxygen saturation in Arterial blood by Pulse oximetry 2023-11-01 13:26:00 98 /min [facility] Systolic blood pressure 2023-10-31 13:11:00 115 mm[Hg] [facility] Diastolic blood pressure 2023-10-31 13:11:00 78 mm[Hg] [facility] Heart rate 2023-10-31 13:11:00 86 /min Unive [facility] Respiratory rate 2023-10-31 13:11:00 18 /min [facility] Body height 2023-10-31 13:11:00 147.3 cm [facility] Body weight 2023-10-31 13:11:00 119.296 kg [facility] BMI 2023-10-31 13:11:00 54.97 kg/m2 [facility] BP Systolic 2023-10-25 17:28:00 Lennox Delaney BP Diastolic 2023-10-25 17:28:00 Oscar Delaney Weight Measured 2023-10-25 17:28:00 262.20 pounds Georgi Delaney Height Measured 2023-10-25 17:28:00 Georgi Delaney Body Temperature 2023-10-25 17:28:00 Georgi Delaney Heart Rate 2023-10-25 17:28:00 Jane Delaney Respiratory Rate 2023-10-25 17:28:00 Georgi Delaney Systolic blood pressure 2023-10-17 07:43:00 96 mm[Hg] [facility] Diastolic blood pressure 2023-10-17 07:43:00 53 mm[Hg] [facility] Heart rate 2023-10-17 07:43:00 66 /min [facility] Body temperature 2023-10-17 07:43:00 36.5 Cele [facility] Oxygen saturation in Arterial blood by Pulse oximetry 2023-10-17 07:43:00 97 /min [place] [facility] Respiratory rate 2023-10-17 05:50:00 16 /min [facility] Body height 2023-10-17 05:50:00 147.3 cm [facility] Body weight 2023-10-17 05:50:00 120.657 kg [facility] BMI 2023-10-17 05:50:00 55.59 kg/m2 [facility] Systolic blood pressure 2023-10-15 14:41:00 136 mm[Hg] [facility] Diastolic blood pressure 2023-10-15 14:41:00 90 mm[Hg] [facility] Heart rate 2023-10-15 14:41:00 89 /min [facility] Respiratory rate 2023-10-15 14:41:00 18 /min [facility] Body height 2023-10-15 14:41:00 147.3 cm [facility] Body weight 2023-10-15 14:41:00 119.069 kg [facility] BMI 2023-10-15 14:41:00 54.86 kg/m2 [facility] BP Systolic 2023-10-01 17:15:00 119 mm[Hg] Step hen Alex Delaney BP Diastolic 2023-10-01 17:15:00 87 mm[Hg] Oscar phen F Rhett Weight Measured 2023-10-01 17:15:00 265.40 pounds Georgi Alex Delaney Height Measured 2023-10-01 17:15:00 60.16 inches Georgi Alex Delaney Body Temperature 2023-10-01 17:15:00 98.20 degrees Georgi F Rhett Heart Rate 2023-10-01 17:15:00 71.00 /min Jane en F Rhett Respiratory Rate 2023-10-01 17:15:00 17.00 /min Georgi F Rhett Systolic blood pressure 2023-09-18 20:56:00 110 mm[Hg] [place] [facility] Diastolic blood pressure 2023-09-18 20:56:00 76 mm[Hg] [facility] Heart rate 2023-09-18 20:56:00 76 /min Unive [facility] Body height 2023-09-18 20:56:00 147.3 cm [facility] Body weight 2023-09-18 20:56:00 121.882 kg [facility] BMI 2023-09-18 20:56:00 56.16 kg/m2 [facility] Oxygen saturation in Arterial blood by Pulse oximetry 2023-09-18 20:56:00 97 /min [facility] BP Systolic 2023-09-17 16:16:00 119 mm[Hg] Step hen Alex Delaney BP Diastolic 2023-09-17 16:16:00 86 mm[Hg] Oscar phen Alex Delaney Weight Measured 2023-09-17 16:16:00 264.00 pounds Georgi Delaney Height Measured 2023-09-17 16:16:00 60.16 inches Georgi Delaney Body Temperature 2023-09-17 16:16:00 98.00 degrees Georgi Delaney Heart Rate 2023-09-17 16:16:00 85.00 /min Jane en Alex [place] Respiratory Rate 2023-09-17 16:16:00 18.00 /min Georgi Delaney Systolic blood pressure 2023-09-17 14:29:00 105 mm[Hg] [place] [facility] Diastolic blood pressure 2023-09-17 14:29:00 74 mm[Hg] [facility] Heart rate 2023-09-17 14:29:00 81 /min [facility] Respiratory rate 2023-09-17 14:27:00 18 /min [facility] Body height 2023-09-17 14:27:00 147.3 cm [facility] Body weight 2023-09-17 14:27:00 119.614 kg [facility] BMI 2023-09-17 14:27:00 55.11 kg/m2 [facility] BP Systolic 2023-09-03 17:04:00 133 mm[Hg] Step hen Alex Delaney BP Diastolic 2023-09-03 17:04:00 86 mm[Hg] Oscar phen Alex Delaney Weight Measured 2023-09-03 17:04:00 275.40 pounds Georgi Delaney Height Measured 2023-09-03 17:04:00 60.16 inches Georgi Delaney Body Temperature 2023-09-03 17:04:00 98.00 degrees Georgi Delaney Heart Rate 2023-09-03 17:04:00 97.00 /min Jane Delaney Respiratory Rate 2023-09-03 17:04:00 19.00 /min Georgi Delaney Systolic blood pressure 2023-08-28 17:17:00 132 mm[Hg] [facility] Diastolic blood pressure 2023-08-28 17:17:00 89 mm[Hg] [place] [facility] Heart rate 2023-08-28 17:17:00 71 /min Unive [facility] Oxygen saturation in Arterial blood by Pulse oximetry 2023-08-28 17:17:00 100 /min [facility] Body temperature 2023-08-28 17:16:00 36.28 Cele [facility] Respiratory rate 2023-08-28 17:16:00 18 /min [facility] Body height 2023-08-28 17:16:00 147.3 cm [facility] Body weight 2023-08-28 17:16:00 123.242 kg [facility] BMI 2023-08-28 17:16:00 56.79 kg/m2 [facility] Systolic blood pressure 2023-07-23 14:45:00 116 mm[Hg] [place] [facility] Diastolic blood pressure 2023-07-23 14:45:00 81 mm[Hg] [place] [facility] Heart rate 2023-07-23 14:45:00 80 /min Unive [facility] Respiratory rate 2023-07-23 14:45:00 18 /min [facility] Body height 2023-07-23 14:45:00 147.3 cm Univ [facility] Body weight 2023-07-23 14:45:00 125.7 kg Univ [facility] BMI 2023-07-23 14:45:00 57.92 kg/m2 [facility] Systolic blood pressure 2023-07-18 14:01:00 105 mm[Hg] [facility] o [facility] Diastolic blood pressure 2023-07-18 14:01:00 61 mm[Hg] [facility] o [facility] Heart rate 2023-07-18 14:01:00 80 /min [facility] 2023-07-18 14:01:00 18 /min [facility] Body height 2023-07-18 14:01:00 147.3 cm [facility] Body weight 2023-07-18 14:01:00 125.737 kg [facility] BMI 2023-07-18 14:01:00 57.93 kg/m2 [facility] BP Systolic 2023-07-16 17:51:00 124 mm[Hg] Step hen Alex Delaney BP Diastolic 2023-07-16 17:51:00 81 mm[Hg] Oscar phen Alex Delaney Weight Measured 2023-07-16 17:51:00 278.00 pounds Georgi Alex Delaney Height Measured 2023-07-16 17:51:00 60.16 inches Georgi lAex Delaney Body Temperature 2023-07-16 17:51:00 98.40 degrees Georgi Alex Delaney Heart Rate 2023-07-16 17:51:00 67.00 /min Jane en F Rhett Respiratory Rate 2023-07-16 17:51:00 17.00 /min Georgi Alex Rhett Systolic blood pressure 2023-07-04 14:56:00 132 mm[Hg] [facility] o [facility] Diastolic blood pressure 2023-07-04 14:56:00 90 mm[Hg] [facility] o [facility] Heart rate 2023-07-04 14:56:00 90 /min [facility] Res[facility] rate 2023-07-04 14:56:00 18 /min [facility] Body height 2023-07-04 14:56:00 147.3 cm [facility] Body weight 2023-07-04 14:56:00 124.286 kg [facility] BMI 2023-07-04 14:56:00 57.27 kg/m2 [facility] Systolic blood pressure 2023-06-20 14:47:00 109 mm[Hg] [facility] o [facility] Diastolic blood pressure 2023-06-20 14:47:00 57 mm[Hg] [facility] o [facility] Heart rate 2023-06-20 14:47:00 81 /min [facility] Respiratory rate 2023-06-20 14:47:00 18 /min [facility] Body height 2023-06-20 14:47:00 147.3 cm [facility] Body weight 2023-06-20 14:47:00 125.646 kg [facility] BMI 2023-06-20 14:47:00 57.89 kg/m2 [facility] BP Systolic 2023-06-18 17:47:00 135 mm[Hg] Step mariama Delaney BP Diastolic 2023-06-18 17:47:00 87 mm[Hg] Oscar Delaney Weight Measured 2023-06-18 17:47:00 279.40 pounds Georgi Delaney Height Measured 2023-06-18 17:47:00 60.16 inches Georgi Alex Delaney Body Temperature 2023-06-18 17:47:00 98.30 degrees Georgi Alex Delaney Heart Rate 2023-06-18 17:47:00 98.00 /min Jane en Alex Rhett Respiratory Rate 2023-06-18 17:47:00 19.00 /min Georgi Alex Rhett Systolic blood pressure 2023-06-06 13:38:00 130 mm[Hg] [facility] o [facility] Diastolic blood pressure 2023-06-06 13:38:00 87 mm[Hg] [facility] o [facility] Heart rate 2023-06-06 13:38:00 83 /min Unive [facility] Respiratory rate 2023-06-06 13:38:00 18 /min [facility] Body height 2023-06-06 13:38:00 147.3 cm [facility] Body weight 2023-06-06 13:38:00 126.009 kg [facility] BMI 2023-06-06 13:38:00 58.06 kg/m2 [facility] BP Systolic 2023-05-30 17:42:00 130 mm[Hg] Step hen F Rhett BP Diastolic 2023-05-30 17:42:00 89 mm[Hg] Oscar phen F Rhett Weight Measured 2023-05-30 17:42:00 278.60 pounds Georgi Alex Delaney Height Measured 2023-05-30 17:42:00 60.16 inches Georgi Alex Delaney Body Temperature 2023-05-30 17:42:00 98.20 degrees Georgi F Rhett Heart Rate 2023-05-30 17:42:00 90.00 /min Jane en F Rhett Respiratory Rate 2023-05-30 17:42:00 19.00 /min Georgi F Rhett Oxygen saturation in Arterial blood by Pulse oximetry 2023-05-24 13:14:00 99 /min [facility] BP Systolic 2023-05-15 17:46:00 122 mm[Hg] Step hen F Rhett BP Diastolic 2023-05-15 17:46:00 77 mm[Hg] Oscar phen F Rhett Weight Measured 2023-05-15 17:46:00 278.20 pounds Georgi Delaney Height Measured 2023-05-15 17:46:00 60.16 inches Georgi Delaney Body Temperature 2023-05-15 17:46:00 98.30 degrees Georgi Alex Delaney Heart Rate 2023-05-15 17:46:00 83.00 /min Jane en F Rhett Respiratory Rate 2023-05-15 17:46:00 17.00 /min Georgi F Rhett Systolic blood pressure 2023-05-09 13:20:00 128 mm[Hg] [facility] Diastolic blood pressure 2023-05-09 13:20:00 85 mm[Hg] [facility] Heart rate 2023-05-09 13:20:00 74 /min [facility] Respiratory rate 2023-05-09 13:20:00 18 /min [facility] Body height 2023-05-09 13:20:00 144.8 cm [facility] Body weight 2023-05-09 13:20:00 124.603 kg [facility] BMI 2023-05-09 13:20:00 59.44 kg/m2 [facility] BP Systolic 2023-05-08 11:24:00 116 mm[Hg] Lennox Delaney BP Diastolic 2023-05-08 11:24:00 81 mm[Hg] Oscar Delaney Weight Measured 2023-05-08 11:24:00 275.00 pounds Georgi Delaney Height Measured 2023-05-08 11:24:00 60.16 inches Georgi Delaney Body Temperature 2023-05-08 11:24:00 97.60 degrees Georgi Delaney Heart Rate 2023-05-08 11:24:00 76.00 /min Jane Delaney Respiratory Rate 2023-05-08 11:24:00 20.00 /min Georgi Delaney Systolic blood pressure 2023-04-25 13:25:00 113 mm[Hg] [place] [facility] Diastolic blood pressure 2023-04-25 13:25:00 85 mm[Hg] [facility] Heart rate 2023-04-25 13:25:00 71 /min Unive [facility] Respiratory rate 2023-04-25 13:25:00 18 /min [facility] Body height 2023-04-25 13:25:00 144.8 cm [facility] Body weight 2023-04-25 13:25:00 126.463 kg [facility] BMI 2023-04-25 13:25:00 60.33 kg/m2 [facility] Body temperature 2023-04-21 04:53:00 36.61 Cele [facility] Oxygen saturation in Arterial blood by Pulse oximetry 2023-04-21 04:53:00 99 /min [facility] Systolic blood pressure 2023-04-04 14:18:00 116 mm[Hg] [facility] Diastolic blood pressure 2023-04-04 14:18:00 73 mm[Hg] [facility] Heart rate 2023-04-04 14:18:00 71 /min Unive [facility] Respiratory rate 2023-04-04 14:09:00 18 /min [facility] Body height 2023-04-04 14:09:00 147.3 cm [facility] Body weight 2023-04-04 14:09:00 127.053 kg Univ [facility] BMI 2023-04-04 14:09:00 58.54 kg/m2 [facility] Systolic blood pressure 2023-03-21 14:39:00 123 mm[Hg] [place] [facility] Diastolic blood pressure 2023-03-21 14:39:00 81 mm[Hg] [facility] Heart rate 2023-03-21 14:39:00 76 /min Unive [facility] Respiratory rate 2023-03-21 14:39:00 18 /min [facility] Body height 2023-03-21 14:39:00 147.3 cm Univ [facility] Body weight 2023-03-21 14:39:00 127.9 kg Univ [facility] BMI 2023-03-21 14:39:00 58.93 kg/m2 [facility] Oxygen saturation in Arterial blood by Pulse oximetry 2023-03-19 19:10:00 98 /min [facility] Systolic blood pressure 2023-02-22 13:31:00 125 mm[Hg] [facility] Diastolic blood pressure 2023-02-22 13:31:00 82 mm[Hg] [facility] Heart rate 2023-02-22 13:31:00 79 /min Unive [facility] Respiratory rate 2023-02-22 13:31:00 18 /min [facility] Body height 2023-02-22 13:31:00 147.3 cm [facility] Body weight 2023-02-22 13:31:00 132.2 kg Univ [facility] BMI 2023-02-22 13:31:00 60.91 kg/m2 [facility] Oxygen saturation in Arterial blood by Pulse oximetry 2023-02-16 21:12:00 98 /min [facility] BP Systolic 2022-08-30 11:27:00 120 [...] /min Body temperature 2021-07-27 18:35:24 36.78 Cele [facility] Procedures Procedure Date / Time Performed Performing Clinician Source REFERRAL- REQUEST/RESPONSE 2023-11-07 16:25:56 Doctor Unassigned, [place] [facility] XR SPINE THORACIC 2 2023-10-25 20:12:25 Requisition , Paper [facility] XR SPINE THORACIC 2 2023-10-25 20:12:25 Requisition , Paper [facility] XR LUMBAR SPINE 4 2023-10-25 20:11:02 Requisition, Paper [facility] XR LUMBAR SPINE 4 2023-10-25 20:11:02 Requisition, Paper [facility] POCT TEST 2023-10-17 06:14:00 Bonnie Rocha [facility] POCT TEST 2023-10-17 06:14:00 Bonnie Rocha [facility] NOTICE OF PRIVACY PRACTICES 2023-10-17 05:41:39 Doctor Unassigned, [place] [facility] NOTICE OF PRIVACY PRACTICES 2023-10-17 05:41:39 Doctor Unassigned, [place] [facility] CONSENT/REFUSAL FOR DIAGNOSIS AND TREATMENT 2023-10-17 05:40:01 Doctor Unassigned, [place] [facility] CONSENT/REFUSAL FOR DIAGNOSIS AND TREATMENT 2023-10-17 05:40:01 Doctor Unassigned, [place] [facility] EMERGENCY SERVICES AGREEMENTS AND AUTHORIZATIONS 2023-10-16 06:01:00 Doctor Unassigned, [place] [facility] SLEEP STUDY DATA REPORT 2023-09-06 06:01:00 Doct or Unassigned, [place] [facility] SLEEP STUDY DATA REPORT 2023-09-06 06:01:00 Doct or Unassigned, [place] [facility] SLEEP LAB RESULTS 2023-09-06 06:01:00 Elly Blackburn [facility] CONSENT TO TREATMENT WITH PSYCHOACTIVE MEDICATION 2023-07-23 06:01:00 Doctor Unassigned, [place] [facility] CONSENT TO TREATMENT WITH PSYCHOACTIVE MEDICATION 2023-07-23 06:01:00 Doctor Unassigned, [place] [facility] [id number] Ultrasound, Soft Tissues Of Head And Neck (eg, Thyroid, Parathyroid, Parotid), Real Time With Image Documentation 2023-05-03 00:00:00 Georgi Delaney ASSIGNMENT OF BENEFITS 2023-04-21 01:50:01 Docto r Unassigned, [place] [facility] ASSIGNMENT OF BENEFITS 2023-04-21 01:50:01 Docto r Unassigned, [place] [facility] CONSENT/REFUSAL FOR DIAGNOSIS AND TREATMENT 2023-04-21 00:06:49 Doctor Unassigned, [place] [facility] CONSENT/REFUSAL FOR DIAGNOSIS AND TREATMENT 2023-04-21 00:06:49 Doctor Unassigned, [place] [facility] EMERGENCY SERVICES AGREEMENTS AND AUTHORIZATIONS 2023-04-20 05:01:00 Doctor Unassigned, [place] [facility] BI ULTRASOUND BREAST LIMITED BILATERAL 2023-04-13 15:56:28 Requisition, Paper [facility] BI ULTRASOUND BREAST LIMITED BILATERAL 2023-04-13 15:56:28 Requisition, Paper [facility] BI DIAGNOSTIC TOMOSYNTHESIS BILATERAL 2023-04-13 15:07:30 Requisition, Paper [facility] BI DIAGNOSTIC TOMOSYNTHESIS BILATERAL 2023-04-13 15:07:30 Requisition, Paper [facility] US UPPER ARM LEFT 2023-04-13 14:19:39 Requisition, Pap er [facility] US UPPER ARM LEFT 2023-04-13 14:19:39 Requisition, Pap er [facility] EXTERNAL PROVIDER RECORDS 2023-03-21 05:01:00 Do ctor Unassigned, [facility] [facility] CT HEAD WO CONTRAST 2023-02-26 19:38:43 Afia Beaulieu [facility] CT HEAD WO CONTRAST 2023-02-26 19:38:43 Afia Beaulieu [facility] ASSIGNMENT OF BENEFITS 2023-02-26 19:05:35 Docto r Unassigned, [place] [facility] CONSENT/REFUSAL FOR DIAGNOSIS AND TREATMENT 2023-02-26 19:04:46 Doctor Unassigned, [place] [facility] CONSENT/REFUSAL FOR DIAGNOSIS AND TREATMENT 2023-02-26 19:04:46 Doctor Unassigned, [place] [facility] PATIENT QUESTIONNAIRE 2023-02-26 05:01:00 Doctor Unassigned, [place] [facility] PSYCHIATRY CLINIC PATIENT INFORMATION 2023-02-22 05:01:00 Doctor Unassigned, [place] [facility] PATIENT FINANCIAL POLICY 2023-02-16 21:04:53 Doctor Unassigned, [place] [facility] ASSIGNMENT OF BENEFITS 2023-02-16 21:04:02 Docto r Unassigned, [place] [facility] CONSENT/REFUSAL FOR DIAGNOSIS AND TREATMENT 2023-02-16 21:03:03 Doctor Unassigned, [place] [facility] CONSENT/REFUSAL FOR DIAGNOSIS AND TREATMENT 2023-02-16 21:03:03 Doctor Unassigned, [place] [facility] REFERRAL- REQUEST/RESPONSE 2023-01-23 05:01:00 Doctor Unassigned, [place] [facility] REFERRAL- REQUEST/RESPONSE 2023-01-23 05:01:00 Doctor Unassigned, [place] [facility] REFERRAL- REQUEST/RESPONSE 2023-01-03 05:01:00 Doctor Unassigned, [place] [facility] REFERRAL- REQUEST/RESPONSE 2023-01-03 05:01:00 Doctor Unassigned, [place] [facility] TROPONIN I 2021-07-27 20:28:00 Yamil Messina [facility] D-DIMER 2021-07-27 20:27:00 Yamil Messina [facility] XR CHEST 1 VW 2021-07-27 19:38:35 Yamil Messina [facility] POCT TEST 2021-07-27 18:28:00 Yamil Messina [facility] URINALYSIS 2021-07-27 18:26:00 Yamil Messina [facility] MAGNESIUM 2021-07-27 18:06:00 Yamil Messina [facility] TROPONIN I 2021-07-27 18:06:00 Yamil Messina [facility] COMP. METABOLIC PANEL ([id number]) 2021-07-27 18:06:00 Yamil Messina [facility] CBC WITH DIFF 2021-07-27 18:06:00 Yamil Messina [facility] CT HEAD WO CONTRAST 2021-06-25 05:12:41 Yoon Page [facility] NOTICE OF PRIVACY PRACTICES 2021-06-25 04:02:52 Doctor Unassigned, [place] [facility] CONSENT/REFUSAL FOR DIAGNOSIS AND TREATMENT 2021-06-25 04:01:22 Doctor Unassigned, [place] [facility] DISCLOSURE AND CONSENT, MEDICAL AND SURGICAL PROCEDURES 2021-01-06 05:01:00 Doctor Unassigned, [place] [facility] POCT TEST 2021-01-05 19:26:00 Magy Villanueva [facility] POCT TEST 2020-12-07 20:47:00 Fern Moctezuma [facility] ASSIGNMENT OF BENEFITS 2020-12-07 19:26:29 Docto r Unassigned, [place] [facility] Plan of Care Planned Activity Planned Date Details Comments Source Goal Plan of Care Note [code = 89644-7] Goal Plan of Care Note [code = 30736-0] Goal Plan of Care Note [code = 73113-2] Goal Plan of Care Note [code = 26837-5] Goal Plan of Care Note [code = 40096-2] Goal Plan of Care Note [code = 07571-0] Goal Plan of Care Note [code = 65307-3] Goal Plan of Care Note [code = 60264-0] Goal Plan of Care Note [code = 70176-7] Goal Plan of Care Note [code = 26931-7] Goal Plan of Care Note [code = 04669-8] Goal Plan of Care Note [code = 30783-9] Goal Plan of Care Note [code = 75623-8] Goal Plan of Care Note [code = 16453-0] Goal Plan of Care Note [code = 69060-2] Goal Plan of Care Note [code = 93141-0] Goal Plan of Care Note [code = 27631-9] Goal Plan of Care Note [code = 60247-5] Goal Plan of Care Note [code = 82921-4] Goal Plan of Care Note [code = 32527-7] Goal Plan of Care Note [code = 78364-5] Goal Plan of Care Note [code = 01579-0] Goal Plan of Care Note [code = 90786-7] Goal Plan of Care Note [code = 15007-8] Goal Plan of Care Note [code = 42407-6] Goal Plan of Care Note [code = 90267-9] Goal Plan of Care Note [code = 69262-3] Goal Plan of Care Note [code = 75031-5] Goal Plan of Care Note [code = 08925-0] Goal Plan of Care Note [code = 62206-9] Goal Plan of Care Note [code = 95802-4] Goal Plan of Care Note [code = 63595-5] Goal Plan of Care Note [code = 12039-2] Goal Plan of Care Note [code = 58514-5] Goal Plan of Care Note [code = 55306-8] Goal Plan of Care Note [code = 98189-8] Goal Plan of Care Note [code = 92321-1] Goal Plan of Care Note [code = 25998-1] Goal Plan of Care Note [code = 02714-3] Goal Plan of Care Note [code = 58756-4] Goal Plan of Care Note [code = 52974-6] Goal Plan of Care Note [code = 12811-1] Goal Plan of Care Note [code = 22744-9] Goal Plan of Care Note [code = 26578-4] Goal Plan of Care Note [code = 31431-3] Goal Plan of Care Note [code = 85058-7] Goal Plan of Care Note [code = 75487-8] Goal Plan of Care Note [code = 68988-5] Goal Plan of Care Note [code = 09603-2] Goal Plan of Care Note [code = 58814-1] Goal Plan of Care Note [code = 63375-0] Goal Plan of Care Note [code = 82680-0] Goal Plan of Care Note [code = 22845-6] Goal Plan of Care Note [code = 87648-7] Goal Plan of Care Note [code = 67658-4] Goal Plan of Care Note [code = 41314-3] Goal Plan of Care Note [code = 33157-9] Goal Plan of Care Note [code = 10018-6] Goal Plan of Care Note [code = 16332-2] Goal Plan of Care Note [code = 54485-2] Goal Plan of Care Note [code = 11507-0] Goal Plan of Care Note [code = 47665-4] Goal Plan of Care Note [code = 66532-7] Goal Plan of Care Note [code = 65807-2] Goal Plan of Care Note [code = 80831-2] Goal Plan of Care Note [code = 83901-3] Goal Plan of Care Note [code = 60846-5] Goal Plan of Care Note [code = 39514-4] Goal Plan of Care Note [code = 82108-7] Goal Plan of Care Note [code = 17306-8] Goal Plan of Care Note [code = 94734-4] Goal Plan of Care Note [code = 13008-0] Goal Plan of Care Note [code = 79572-0] Goal Plan of Care Note [code = 34188-6] Goal Plan of Care Note [code = 33701-9] Goal Plan of Care Note [code = 11053-8] Goal Plan of Care Note [code = 10736-3] Goal Plan of Care Note [code = 23975-3] Goal Plan of Care Note [code = 76306-1] Goal Plan of Care Note [code = 59267-4] Goal Plan of Care Note [code = 58423-9] Goal Plan of Care Note [code = 90538-7] Goal Plan of Care Note [code = 04634-0] Goal Plan of Care Note [code = 65775-3] Goal Plan of Care Note [code = 91593-0] Goal Plan of Care Note [code = 89804-6] Goal Plan of Care Note [code = 23557-0] Goal Plan of Care Note [code = 42017-1] Goal Plan of Care Note [code = 64357-7] Goal Plan of Care Note [code = 76273-6] Goal Plan of Care Note [code = 69253-1] Goal Plan of Care Note [code = 41569-5] Goal Plan of Care Note [code = 99344-3] Goal Plan of Care Note [code = 14872-6] Goal Plan of Care Note [code = 70791-1] Goal Plan of Care Note [code = 51762-1] Goal Plan of Care Note [code = 61091-6] Goal Plan of Care Note [code = 18703-4] Goal Plan of Care Note [code = 09148-8] Goal Plan of Care Note [code = 49239-6] Goal Plan of Care Note [code = 96758-5] Goal Plan of Care Note [code = 45564-0] Goal Plan of Care Note [code = 28843-0] Goal Plan of Care Note [code = 76693-5] Goal Plan of Care Note [code = 36197-6] Goal Plan of Care Note [code = 64245-9] Goal Plan of Care Note [code = 65962-8] Goal Plan of Care Note [code = 73862-5] Goal Plan of Care Note [code = 48306-8] Goal Plan of Care Note [code = 65080-3] Goal Plan of Care Note [code = 06058-7] Goal Plan of Care Note [code = 61773-8] Goal Plan of Care Note [code = 68548-6] Goal Plan of Care Note [code = 59258-7] Goal Plan of Care Note [code = 83098-2] Goal Plan of Care Note [code = 61677-5] Goal Plan of Care Note [code = 34011-5] Goal Plan of Care Note [code = 15710-3] Goal Plan of Care Note [code = 28257-3] Goal Plan of Care Note [code = 47688-6] Goal Plan of Care Note [code = 25501-6] Goal Plan of Care Note [code = 93220-6] Goal Plan of Care Note [code = 25775-9] Goal Plan of Care Note [code = 20268-2] Goal Plan of Care Note [code = 11614-9] Goal Plan of Care Note [code = 34504-9] Goal Plan of Care Note [code = 75034-0] Goal Plan of Care Note [code = 52701-6] Goal Plan of Care Note [code = 29884-7] Goal Plan of Care Note [code = 85904-8] Goal Plan of Care Note [code = 07183-3] Goal Plan of Care Note [code = 86776-3] Goal Plan of Care Note [code = 73084-3] Goal Plan of Care Note [code = 61488-3] Goal Plan of Care Note [code = 73671-7] Goal Plan of Care Note [code = 91202-5] Goal Plan of Care Note [code = 04692-0] Goal Plan of Care Note [code = 60608-2] Goal Plan of Care Note [code = 21869-9] Goal Plan of Care Note [code = 89224-4] Goal Plan of Care Note [code = 58376-7] Goal Plan of Care Note [code = 37801-4] Goal Plan of Care Note [code = 15533-9] Goal Plan of Care Note [code = 03079-4] Goal Plan of Care Note [code = 34959-6] Goal Plan of Care Note [code = 17524-0] Goal Plan of Care Note [code = 96340-3] Goal Plan of Care Note [code = 70188-5] Goal Plan of Care Note [code = 14035-9] Goal Plan of Care Note [code = 26740-4] Goal Plan of Care Note [code = 99068-7] Goal Plan of Care Note [code = 84229-9] Goal Plan of Care Note [code = 23453-9] Goal Plan of Care Note [code = 83078-4] Goal Plan of Care Note [code = 35449-5] Goal Plan of Care Note [code = 29325-1] Goal Plan of Care Note [code = 02565-6] Encounters Start Date/Time End Date/Time Encounter Type Admission Type Attending [facility] Care Facility Care Department Encounter ID Source 2024-09-18 11:00:00 2024-09-18 11:00:00 Outpatient AFIA MELVIN [facility] [id number] [facility] 2024-03-04 14:30:00 2024-03-04 14:30:00 Outpatient JUAN CASTELLANOS ROLANDA [id number] Rolanda [facility] 2024-02-16 00:00:00 2024-02-16 00:00:00 Outpatient TAMMY MCDOWELL ROLANDA OSMAN [id number] Rolanda [facility] 2024-02-14 00:00:00 2024-02-14 00:00:00 Outpatient FLAVIA KATHLEENCONNIEYU ROLANDA OSMAN [id number] [facility] 2024-02-11 00:00:00 2024-02-11 00:00:00 Outpatient JUAN CASTELLANOS ROLANDA OSMAN [id number] [facility] 2024-02-05 16:05:00 2024-02-05 16:05:00 Outpatient LAB90 ROLANDA OSMAN [id number] [facility] 2024-02-05 16:00:00 2024-02-05 16:00:00 Outpatient LAB90 ROLANDA OSMAN [id number] [facility] 2024-02-05 15:00:00 2024-02-05 15:00:00 Outpatient JUAN CASTELLANOS ROLANDA OSMAN [id number] [facility] 2024-02-04 14:30:00 2024-02-04 14:30:00 Outpatient JUAN CASTELLANOS ROLANDA OSMAN [id number] [facility] 2024-01-28 00:00:00 2024-01-29 09:42:23 Telephone Beaulieu [facility] .2.840.114 350.1.13.10 4.2.7.2.686 [id number] [facility] 2024-01-29 00:00:00 2024-01-29 09:40:54 Letter (Out) Brittnee [facility] 1.2.840.114 350.1.13.10 4.2.7.2.686 [id number] [id number] [facility] 2024-01-01 00:00:00 2024-01-17 14:15:43 Patient Secure Msg Doctor Unassigned, [place] [facility] WILLIE MENDEZ?[facility] 1..840.114 350.1.13.10 4.2.7.2.686 [id number] [id number] [facility] 2024-01-09 14:32:27 2024-01-09 14:32:27 Outpatient SFA SFA [id number] Georgi Delaney 2024-01-08 14:19:45 2024-01-08 14:19:45 Outpatient SFA SFA [id number] Georgi Delaney 2024-01-08 00:00:00 2024-01-08 00:00:00 Outpatient Visit SFA [id number] Georgi Delaney 2024-01-04 08:04:20 2024-01-04 08:04:20 Outpatient SFA SFA [id number] Georgi Johnson Rhett 2024-01-03 18:51:13 2024-01-03 18:51:13 Outpatient SFA SFA [id number] Georgi Delaney 2023-12-31 00:00:00 2024-01-03 16:33:02 Telephone Dorothy [facility] 1..840.114 350.1.13.10 4.2.7.2.686 [id number] [facility] 2024-01-03 00:00:00 2024-01-03 00:00:00 Outpatient R DOROTHY PHILLIPS [facility] [id number] [facility] 2023-12-31 00:00:00 2024-01-02 12:35:07 Telephone Elly Blackburn 1.2.840.1 85989.1.1 3.104.2.7 .3.004467 .8 [id number] [facility] 2024-01-02 09:30:00 2024-01-02 10:23:19 Outpatient R SHARRI OLSON KIMBERLY [facility] [id number] [facility] 2023-12-31 00:00:00 2023-12-31 11:16:36 Telephone Navneet Dang 1.2.840.1 25669.1.1 3.104.2.7 .3.834582 .8 [id number] [facility] 2023-12-27 18:58:47 2023-12-27 18:58:47 Outpatient SFA [id number] Georgi Delaney 2023-12-27 00:00:00 2023-12-27 00:00:00 Outpatient Visit [id number] Georgi Delaney 2023-12-26 09:20:00 2023-12-26 09:52:16 Outpatient R DOROTHY PHILLIPS [facility] [id number] [facility] 2023-12-26 09:20:00 2023-12-26 09:52:16 Office Visit Dorothy Phillips 1.2.840.1 93507.1.1 3.104.2.7 .3.503069 .8 [id number] [facility] 2023-12-25 09:30:00 2023-12-25 10:04:53 Outpatient R AFIA BEAULIEU [facility] [id number] [facility] 2023-12-25 09:30:00 2023-12-25 10:04:53 Office Visit Afia Beaulieu 1.2.840.1 65952.1.1 3.104.2.7 .3.328896 .8 [id number] [facility] 2023-12-25 00:00:00 2023-12-25 00:00:00 Travel 1.2.840.1 24299.1.1 3.104.2.7 .3.757015 .8 1.2.840.114 350.1.13.10 4.2.7.3.698 084.8 [id number] [facility] 2023-12-21 15:12:41 2023-12-21 15:12:41 Outpatient SFA [id number] Georgi Delaney 2023-12-21 00:00:00 2023-12-21 00:00:00 Outpatient Visit [id number] Georgi Delaney 2023-12-19 11:33:43 2023-12-19 11:33:43 Outpatient SFA [id number] Georgi Delaney 2023-12-19 09:30:00 2023-12-19 10:34:54 Outpatient SHARRI LOWE KIMBERLY [facility] [id number] [facility] 2023-12-19 00:00:00 2023-12-19 00:00:00 Travel 1.2.840.1 98863.1.1 3.104.2.7 .3.596152 .8 1.2.840.114 350.1.13.10 4.2.7.3.698 084.8 [id number] [facility] 2023-12-12 11:53:06 2023-12-12 11:53:06 Outpatient SFA [id number] Georgi Delaney 2023-11-06 00:00:00 2023-12-08 18:07:25 Patient Secure Msg Doctor Unassigned, [place] 1.2.840.1 78224.1.1 3.104.2.7 .3.039642 .8 [id number] [facility] 2023-12-07 10:52:07 2023-12-07 10:52:07 Outpatient SFA [id number] Georgi Delaney 2023-12-06 18:52:45 2023-12-06 18:52:45 Outpatient SFA [id number] Georgi Delaney 2023-12-05 11:22:26 2023-12-05 11:22:26 Outpatient SFA [id number] Georgi Delaney 2023-12-05 08:45:00 2023-12-05 10:00:37 Outpatient Katheryn OKEEFEWESLEYSHARRI SHARRI [facility] [id number] [facility] 2023-12-05 00:00:00 2023-12-05 00:00:00 Travel 1.2.840.1 41029.1.1 3.104.2.7 .3.149022 .8 1.2.840.114 350.1.13.10 4.2.7.3.698 084.8 [id number] [facility] 2023-12-03 09:06:12 2023-12-03 09:06:12 Outpatient [facility] [id number] Georgi Delaney 2023-10-27 00:00:00 2023-12-01 18:09:02 Patient Secure Msg Doctor Unassigned, [place] 1.2.840.1 41954.1.1 3.104.2.7 .3.935605 .8 [id number] [facility] 2023-11-28 23:48:00 2023-11-29 00:50:00 Emergency X EMILY SINGH [facility] ERT [id number] [facility] 2023-11-28 23:48:00 2023-11-29 00:50:00 Emergency Emily Singh 1.2.840.1 25357.1.1 3.104.2.7 .3.653982 .8 [id number] [facility] 2023-11-28 11:24:29 2023-11-28 11:24:29 Outpatient [facility] [id number] Georgi Delaney 2023-11-28 00:00:00 2023-11-28 00:00:00 Travel 1.2.840.1 95733.1.1 3.104.2.7 .3.028794 .8 1.2.840.114 350.1.13.10 4.2.7.3.698 084.8 [id number] [facility] 2023-11-23 18:48:41 2023-11-23 18:48:41 Outpatient SFA SFA [id number] Georgi Delaney 2023-11-22 18:32:19 2023-11-22 18:32:19 Outpatient SFA [id number] Georgi Delaney 2023-11-21 11:42:56 2023-11-21 11:42:56 Outpatient SFA [id number] Georgi Delaney 2023-11-19 14:35:59 2023-11-19 14:35:59 Outpatient SFA [id number] Georgi Delaney 2023-10-17 00:00:00 2023-11-17 18:05:01 Patient Secure Msg Doctor Unassigned, [place] 1.2.840.1 48737.1.1 3.104.2.7 .3.521161 .8 [id number] [facility] 2023-11-15 18:25:25 2023-11-15 18:25:25 Outpatient SFA [id number] Georgi Delaney 2023-11-14 11:21:10 2023-11-14 11:21:10 Outpatient SFA [id number] Georgi Delaney 2023-11-12 08:45:00 2023-11-12 09:29:31 Outpatient ATILIO KHANNA [facility] [id number] [facility] 2023-11-12 00:00:00 2023-11-12 00:00:00 Travel 1.2.840.1 62236.1.1 3.104.2.7 .3.713750 .8 1.2.840.114 350.1.13.10 4.2.7.3.698 084.8 [id number] [facility] 2023-11-08 18:20:12 2023-11-08 18:20:12 Outpatient SFA SFA [id number] Georgi Delaney 2023-11-07 12:59:12 2023-11-07 12:59:12 Outpatient SFA [id number] Georgi Delaney 2023-11-07 00:00:00 2023-11-07 00:00:00 Orders Only Doctor Unassigned, [place] 1.2.840.1 98768.1.1 3.104.2.7 .3.081981 .8 [id number] [facility] 2023-11-06 10:18:34 2023-11-06 10:18:34 Outpatient SFA [id number] Georgi Delaney 2023-11-01 18:46:12 2023-11-01 18:46:12 Outpatient SFA 21 Georgi Delaney 2023-11-01 08:30:00 2023-11-01 09:11:45 Outpatient R AFIA BEAULIEU [facility] [id number] [facility] 2023-11-01 08:30:00 2023-11-01 09:11:45 Office Visit Afia Beaulieu 1.2.840.1 17335.1.1 3.104.2.7 .3.580904 .8 [id number] [facility] 2023-10-31 12:52:35 2023-10-31 12:52:35 Outpatient SFA [id number] Georgi Johnson Rhett 2023-10-31 08:00:00 2023-10-31 09:01:39 Outpatient R OBI SHARIF [facility] [id number] [facility] 2023-10-31 00:00:00 2023-10-31 00:00:00 Travel 1.2.840.1 48391.1.1 3.104.2.7 .3.748610 .8 1.2.840.114 350.1.13.10 4.2.7.3.698 084.8 [id number] [facility] 2023-10-26 08:12:20 2023-10-26 08:12:20 Outpatient SFA [id number] Georgi Delaney 2023-10-25 14:45:00 2023-10-25 23:59:00 Outpatient R RADIOLOGY [facility] [id number] [facility] 2023-10-25 14:45:00 2023-10-25 23:59:00 Hospital Encounter Radiology 1.2.840.1 69868.1.1 3.104.2.7 .3.845416 .8 [id number] [facility] 2023-10-25 17:25:44 2023-10-25 17:25:44 Outpatient SFA [id number] Georgi Delaney 2023-10-25 13:45:00 2023-10-25 14:44:00 Hospital Encounter Radiology 1.2.840.1 76802.1.1 3.104.2.7 .3.781518 .8 [id number] [facility] 2023-10-25 00:00:00 2023-10-25 00:00:00 Travel 1.2.840.1 35850.1.1 3.104.2.7 .3.476134 .8 1.2.840.114 350.1.13.10 4.2.7.3.698 084.8 [id number] [facility] 2023-10-24 11:20:39 2023-10-24 11:20:39 Outpatient SFA [id number] Georgi Delaney 2023-10-16 00:00:00 2023-10-23 10:33:52 Telephone Elly Blackburn 1.2.840.1 47341.1.1 3.104.2.7 .3.680905 .8 [id number] [facility] 2023-10-22 17:22:44 2023-10-22 17:22:44 Outpatient SFA [id number] Georgi Delaney 2023-10-18 18:31:21 2023-10-18 18:31:21 Outpatient SFA [id number] Georgi Delaney 2023-10-17 11:24:20 2023-10-17 11:24:20 Outpatient SFA [id number] Georgi Delaney 2023-10-16 23:54:00 2023-10-17 01:45:00 Emergency X BONNIE ROCHA [facility] ERT [id number] [facility] 2023-10-16 23:54:00 2023-10-17 01:45:00 Emergency Bonnie Rocha Jessie 1.2.840.1 78294.1.1 3.104.2.7 .3.226618 .8 [id number] [facility] 2023-10-16 00:00:00 2023-10-16 22:59:28 Nurse Triage Debbie Velasco 1.2.840.1 06193.1.1 3.104.2.7 .3.379181 .8 [id number] [facility] 2023-10-16 00:00:00 2023-10-16 00:00:00 Travel 1.2.840.1 56826.1.1 3.104.2.7 .3.351578 .8 1.2.840.114 350.1.13.10 4.2.7.3.698 084.8 [id number] [facility] 2023-10-15 08:45:00 2023-10-15 09:33:30 Outpatient ATILIO KHANNA [facility] [id number] [facility] 2023-10-15 00:00:00 2023-10-15 00:00:00 Travel 1.2.840.1 69801.1.1 3.104.2.7 .3.302234 .8 1.2.840.114 350.1.13.10 4.2.7.3.698 084.8 [id number] [facility] 2023-10-12 15:08:57 2023-10-12 15:08:57 Outpatient SFA [id number] Georgi Delaney 2023-10-11 18:19:30 2023-10-11 18:19:30 Outpatient SFA SFA [id number] Georgi Delaney 2023-10-10 10:04:00 2023-10-10 10:04:00 Outpatient SFA SFA [id number] Georgi Delaney 2023-10-09 00:00:00 2023-10-10 09:41:53 Telephone Elly Blackburn 1.2.840.1 24849.1.1 3.104.2.7 .3.378825 .8 [id number] [facility] 2023-10-09 00:00:00 2023-10-10 09:09:54 Telephone Elly Blackburn 1.2.840.1 17490.1.1 3.104.2.7 .3.031862 .8 [id number] [facility] 2023-10-09 09:00:00 2023-10-09 09:00:00 Outpatient R ELLY BLACKBURN [facility] [id number] [facility] 2023-10-04 18:49:09 2023-10-04 18:49:09 Outpatient SFA SFA [id number] Georgi Delaney 2023-10-03 11:19:32 2023-10-03 11:19:32 Outpatient SFA SFA [id number] Georgi Delaney 2023-10-03 00:00:00 2023-10-03 10:53:24 Telephone Navneet Dang 1.2.840.1 11345.1.1 3.104.2.7 .3.872910 .8 [id number] [facility] 2023-10-01 16:58:20 2023-10-01 16:58:20 Outpatient SFA SFA [id number] Georgi Delaney 2023-09-28 00:00:00 2023-10-01 11:55:24 Telephone Elly Blackburn 1.2.840.1 85546.1.1 3.104.2.7 .3.244115 .8 [id number] [facility] 2023-10-01 08:45:00 2023-10-01 09:36:52 Outpatient ATILIO KHANNA [facility] [id number] [facility] 2023-10-01 00:00:00 2023-10-01 00:00:00 Travel 1.2.840.1 05732.1.1 3.104.2.7 .3.475692 .8 1.2.840.114 350.1.13.10 4.2.7.3.698 084.8 [id number] [facility] 2023-09-27 18:56:58 2023-09-27 18:56:58 Outpatient [facility] [id number] Georgi Delaney 2023-09-27 00:00:00 2023-09-27 00:00:00 Travel 1.2.840.1 93708.1.1 3.104.2.7 .3.189003 .8 1.2.840.114 350.1.13.10 4.2.7.3.698 084.8 [id number] [facility] 2023-09-26 11:28:03 2023-09-26 11:28:03 Outpatient [facility] [id number] Georgi Delaney 2023-09-19 11:47:58 2023-09-19 11:47:58 Outpatient [facility] [id number] Georgi Delaney 2023-09-18 14:30:00 2023-09-18 15:13:10 Office Visit Afia Beaulieu 1.2.840.1 89836.1.1 3.104.2.7 .3.049348 .8 [id number] [facility] 2023-09-18 14:30:00 2023-09-18 15:13:10 Outpatient AFIA MELVIN [facility] [id number] [facility] 2023-09-17 16:00:03 2023-09-17 16:00:03 Outpatient SFA [id number] Georgi Delaney 2023-09-17 08:45:00 2023-09-17 09:30:29 Outpatient R ATILIO ANDREWS [facility] [id number] [facility] 2023-09-17 00:00:00 2023-09-17 00:00:00 Travel 1.2.840.1 66395.1.1 3.104.2.7 .3.439269 .8 1.2.840.114 350.1.13.10 4.2.7.3.698 084.8 [id number] [facility] 2023-09-14 00:00:00 2023-09-14 00:00:00 Travel 1.2.840.1 38076.1.1 3.104.2.7 .3.219019 .8 1.2.840.114 350.1.13.10 4.2.7.3.698 084.8 [id number] [facility] 2023-09-13 18:25:18 2023-09-13 18:25:18 Outpatient SFA [id number] Georgi Delaney 2023-09-07 17:04:45 2023-09-07 17:04:45 Outpatient SFA [id number] Georgi Johnson Rhett 2023-09-06 18:58:45 2023-09-06 18:58:45 Outpatient SFA [id number] Georgi Johnson Rhett 2023-09-06 12:00:00 2023-09-06 12:15:00 Php Mysql Developer Visit Ion Miranda T 1.2.840.1 93139.1.1 3.104.2.7 .3.769599 .8 [id number] [facility] 2023-09-06 12:00:00 2023-09-06 12:00:00 Outpatient R ION MIRANDA STRAHIL [facility] [id number] [facility] 2023-09-06 00:00:00 2023-09-06 00:00:00 Orders Only Doctor Unassigned, [place] 1.2.840.1 54221.1.1 3.104.2.7 .3.006302 .8 [id number] [facility] 2023-09-06 00:00:00 2023-09-06 00:00:00 Travel 1.2.840.1 73519.1.1 3.104.2.7 .3.560587 .8 1.2.840.114 350.1.13.10 4.2.7.3.698 084.8 [id number] [facility] 2023-09-05 11:23:13 2023-09-05 11:23:13 Outpatient SFA SFA 24 Georgi Delaney 2023-09-03 16:53:51 2023-09-03 16:53:51 Outpatient SFA SFA 22 Georgi Delaney 2023-09-03 08:45:00 2023-09-03 09:29:48 Outpatient ATILIO KHANNA [facility] [id number] [facility] 2023-09-03 00:00:00 2023-09-03 00:00:00 Travel 1.2.840.1 61073.1.1 3.104.2.7 .3.243576 .8 1.2.840.114 350.1.13.10 4.2.7.3.698 084.8 [id number] [facility] 2023-08-31 00:00:00 2023-08-31 00:00:00 Travel 1.2.840.1 02462.1.1 3.104.2.7 .3.195548 .8 1.2.840.114 350.1.13.10 4.2.7.3.698 084.8 [id number] [facility] 2023-08-30 18:59:50 2023-08-30 18:59:50 Outpatient SFA SFA [id number] Georgi Delaney 2023-08-29 11:54:24 2023-08-29 11:54:24 Outpatient SFA SFA [id number] Georgi Delaney 2023-08-28 11:00:00 2023-08-28 11:45:13 Outpatient R ELLY BLACKBURN [facility] [id number] [facility] 2023-08-28 11:00:00 2023-08-28 11:45:13 Office Visit Elly Blackburn 1.2.840.1 92288.1.1 3.104.2.7 .3.198570 .8 [id number] [facility] 2023-08-28 00:00:00 2023-08-28 00:00:00 Travel 1.2.840.1 37328.1.1 3.104.2.7 .3.457304 .8 1.2.840.114 350.1.13.10 4.2.7.3.698 084.8 [id number] [facility] 2023-08-22 11:25:11 2023-08-22 11:25:11 Outpatient SFA SFA [id number] Georgi Delaney 2023-08-22 08:00:00 2023-08-22 08:00:00 Outpatient R [facility] [id number] [facility] 2023-08-16 18:23:26 2023-08-16 18:23:26 Outpatient SFA SFA [id number] Georgi Delaney 2023-08-15 12:35:53 2023-08-15 12:35:53 Outpatient SFA SFA [id number] Georgi Johnson Rhett 2023-08-09 18:21:08 2023-08-09 18:21:08 Outpatient SFA SFA [id number] Georgi Johnson Rhett 2023-08-08 17:08:47 2023-08-08 17:08:47 Outpatient SFA SFA [id number] Georgi Johnson Rhett 2023-08-02 18:23:13 2023-08-02 18:23:13 Outpatient SFA SFA [id number] Georgi Johnson Rhett 2023-07-31 09:40:50 2023-07-31 09:40:50 Outpatient SFA SFA [id number] Georgi Johnson Rhett 2023-07-30 09:30:00 2023-07-30 10:00:26 Outpatient R ISELA FERREIRA [facility] [id number] [facility] 2023-07-30 00:00:00 2023-07-30 00:00:00 Travel 1.2.840.1 81725.1.1 3.104.2.7 .3.357480 .8 1.2.840.114 350.1.13.10 4.2.7.3.698 084.8 [id number] [facility] 2023-07-26 10:40:34 2023-07-26 10:40:34 Outpatient SFA SFA [id number] Georgi Delaney 2023-07-23 08:45:00 2023-07-23 10:33:12 Outpatient R CHANEL JACOME [facility] [id number] [facility] 2023-07-23 00:00:00 2023-07-23 00:00:00 Travel 1.2.840.1 69312.1.1 3.104.2.7 .3.536375 .8 1.2.840.114 350.1.13.10 4.2.7.3.698 084.8 [id number] [facility] 2023-07-23 00:00:00 2023-07-23 00:00:00 Orders Only Doctor Unassigned, [place] 1.2.840.1 77138.1.1 3.104.2.7 .3.011929 .8 [id number] [facility] 2023-07-20 00:00:00 2023-07-20 00:00:00 Travel 1.2.840.1 42084.1.1 3.104.2.7 .3.563487 .8 1.2.840.114 350.1.13.10 4.2.7.3.698 084.8 [id number] [facility] 2023-07-19 18:54:32 2023-07-19 18:54:32 Outpatient SFA SFA [id number] Georgi Alex Delaney 2023-07-19 00:00:00 2023-07-19 00:00:00 Patient Secure Msg Doctor Unassigned, [place] 1.2.840.1 39985.1.1 3.104.2.7 .3.243307 .8 [id number] [facility] 2023-07-18 08:00:00 2023-07-18 09:04:35 Outpatient SHARRI LOWE KIMBERLY [facility] [id number] [facility] 2023-07-18 00:00:00 2023-07-18 00:00:00 Travel 1.2.840.1 38916.1.1 3.104.2.7 .3.241573 .8 1.2.840.114 350.1.13.10 4.2.7.3.698 084.8 [id number] [facility] 2023-07-17 17:38:54 2023-07-17 17:38:54 Outpatient SFA SFA [id number] Georgi Delaney 2023-07-16 17:57:32 2023-07-16 17:57:32 Outpatient SFA SFA [id number] Georgi Delaney 2023-07-16 00:00:00 2023-07-16 00:00:00 Travel 1.2.840.1 00718.1.1 3.104.2.7 .3.123061 .8 1.2.840.114 350.1.13.10 4.2.7.3.698 084.8 [id number] [facility] 2023-07-12 18:22:31 2023-07-12 18:22:31 Outpatient SFA SFA [id number] Georgi Delaney 2023-07-12 00:00:00 2023-07-12 00:00:00 Telephone Navneet Dang 1.2.840.1 32530.1.1 3.104.2.7 .3.108426 .8 [id number] [facility] 2023-07-11 00:00:00 2023-07-11 00:00:00 Telephone Afia Beaulieu 1.2.840.1 24638.1.1 3.104.2.7 .3.090238 .8 [id number] [facility] 2023-07-10 12:48:46 2023-07-10 12:48:46 Outpatient SFA [id number] Georgi Delaney 2023-07-04 08:45:00 2023-07-04 08:45:00 Outpatient R CHANEL JACOME [facility] [id number] [facility] 2023-07-04 00:00:00 2023-07-04 00:00:00 Travel 1.2.840.1 29352.1.1 3.104.2.7 .3.129653 .8 1.2.840.114 350.1.13.10 4.2.7.3.698 084.8 [id number] [facility] 2023-06-28 17:20:13 2023-06-28 17:20:13 Outpatient SFA SFA [id number] Georgi Delaney 2023-06-26 17:09:38 2023-06-26 17:09:38 Outpatient SFA SFA [id number] Georgi Delaney 2023-06-25 14:22:23 2023-06-25 14:22:23 Outpatient SFA SFA [id number] Georgi Delaney 2023-06-22 14:53:38 2023-06-22 14:53:38 Outpatient SFA SFA [id number] Georgi Delaney 2023-06-20 08:45:00 2023-06-20 09:49:50 Outpatient R CHANEL JACOME [facility] [id number] [facility] 2023-06-19 00:00:00 2023-06-19 00:00:00 Travel 1.2.840.1 35640.1.1 3.104.2.7 .3.594314 .8 1.2.840.114 350.1.13.10 4.2.7.3.698 084.8 [id number] [facility] 2023-06-18 17:35:48 2023-06-18 17:35:48 Outpatient SFA SFA [id number] Georgi Delaney 2023-06-14 18:57:51 2023-06-14 18:57:51 Outpatient SFA [id number] Georgi Delaney 2023-06-12 12:20:21 2023-06-12 12:20:21 Outpatient SFA [id number] Georgi Delaney 2023-06-12 00:00:00 2023-06-12 00:00:00 Patient Secure Msg Doctor Unassigned, [place] 1.2.840.1 41914.1.1 3.104.2.7 .3.458274 .8 [id number] [facility] 2023-06-07 18:30:14 2023-06-07 18:30:14 Outpatient SFA [id number] Georgi Delaney 2023-06-06 12:03:13 2023-06-06 12:03:13 Outpatient SFA [id number] Georgi Delaney 2023-06-06 08:45:00 2023-06-06 09:45:02 Outpatient CHANEL HAYES [facility] [id number] [facility] 2023-06-05 11:42:00 2023-06-05 11:42:00 Outpatient SFA [id number] Georgi Delaney 2023-06-05 00:00:00 2023-06-05 00:00:00 Travel 1.2.840.1 74121.1.1 3.104.2.7 .3.967177 .8 1.2.840.114 350.1.13.10 4.2.7.3.698 084.8 [id number] [facility] 2023-05-30 17:31:37 2023-05-30 17:31:37 Outpatient SFA [id number] Georgi Delaney 2023-05-30 00:00:00 2023-05-30 00:00:00 Telephone Afia Beaulieu 1.2.840.1 00914.1.1 3.104.2.7 .3.601620 .8 [id number] [facility] 2023-05-29 11:50:55 2023-05-29 11:50:55 Outpatient SFA [id number] Georgi Delaney 2023-05-24 18:32:38 2023-05-24 18:32:38 Outpatient SFA 12 Georgi Delaney 2023-05-24 08:30:00 2023-05-24 08:53:04 Outpatient R BRITTNEE AFIA [facility] [id number] [facility] 2023-05-24 08:30:00 2023-05-24 08:53:04 Office Visit Brittnee Afia 1.2.840.1 48819.1.1 3.104.2.7 .3.019627 .8 [id number] [facility] 2023-05-24 00:00:00 2023-05-24 00:00:00 Travel 1.2.840.1 98509.1.1 3.104.2.7 .3.490872 .8 1.2.840.114 350.1.13.10 4.2.7.3.698 084.8 [id number] [facility] 2023-05-23 16:37:51 2023-05-23 16:37:51 Outpatient SFA 11 Georgi Delaney 2023-05-22 11:25:17 2023-05-22 11:25:17 Outpatient SFA [id number] Georgi Delaney 2023-05-18 00:00:00 2023-05-18 00:00:00 Nurse Triage Jens Carranza, Sharri Canseco 1.2.840.1 55106.1.1 3.104.2.7 .3.226918 .8 [id number] [facility] 2023-05-17 18:32:35 2023-05-17 18:32:35 Outpatient SFA 05 Georgi Delaney 2023-05-15 17:38:26 2023-05-15 17:38:26 Outpatient SFA SFA [id number] Georgi Delaney 2023-05-10 18:53:57 2023-05-10 18:53:57 Outpatient SFA SFA [id number] Georgi Delaney 2023-05-09 08:45:00 2023-05-09 10:11:14 Outpatient R SHARRI OLSON [facility] [id number] [facility] 2023-05-09 00:00:00 2023-05-09 00:00:00 Travel 1.2.840.1 15538.1.1 3.104.2.7 .3.302049 .8 1.2.840.114 350.1.13.10 4.2.7.3.698 084.8 [id number] [facility] 2023-05-08 11:49:40 2023-05-08 11:49:40 Outpatient SFA SFA [id number] Georgi Delaney 2023-05-04 12:44:08 2023-05-04 12:44:08 Outpatient SFA SFA [id number] Georgi Delanye 2023-05-03 18:32:26 2023-05-03 18:32:26 Outpatient SFA SFA [id number] Georgi Delaney 2023-05-01 11:35:50 2023-05-01 11:35:50 Outpatient SFA SFA [id number] Georgi Johnson Rhett 2023-04-26 18:54:59 2023-04-26 18:54:59 Outpatient SFA SFA [id number] Georgi Johnson Rhett 2023-04-25 08:45:00 2023-04-25 10:13:07 Outpatient Katheryn NAA CHANEL [facility] [id number] [facility] 2023-04-25 00:00:00 2023-04-25 00:00:00 Travel 1.2.840.1 85405.1.1 3.104.2.7 .3.474442 .8 1.2.840.114 350.1.13.10 4.2.7.3.698 084.8 [id number] [facility] 2023-04-24 11:26:23 2023-04-24 11:26:23 Outpatient SFA [id number] Georgi Delaney 2023-04-20 19:36:00 2023-04-20 23:55:00 Emergency X GEORGETTE JEFFREY [facility] ERT [id number] [facility] 2023-04-20 19:36:00 2023-04-20 23:55:00 Emergency Georgette Jeffrey S 1.2.840.1 26791.1.1 3.104.2.7 .3.537872 .8 [id number] [facility] 2023-04-20 00:00:00 2023-04-20 00:00:00 Nurse Triage Mildred Harmon 1.2.840.1 83632.1.1 3.104.2.7 .3.007176 .8 [id number] [facility] 2023-04-20 00:00:00 2023-04-20 00:00:00 Travel 1.2.840.1 94799.1.1 3.104.2.7 .3.218967 .8 1.2.840.114 350.1.13.10 4.2.7.3.698 084.8 [id number] [facility] 2023-04-19 18:30:50 2023-04-19 18:30:50 Outpatient [facility] [id number] Georgi Delaney 2023-04-17 14:29:59 2023-04-17 14:29:59 Outpatient SFA [id number] Georgi Delaney 2023-04-13 08:56:15 2023-04-13 23:59:00 Hospital Encounter Radiology 1.2.840.1 48712.1.1 3.104.2.7 .3.244507 .8 [id number] [facility] 2023-04-13 08:56:15 2023-04-13 23:59:00 Outpatient R RADIOLOGY [facility] [id number] [facility] 2023-04-13 08:55:54 2023-04-13 08:55:54 Hospital Encounter Radiology 1.2.840.1 49142.1.1 3.104.2.7 .3.372101 .8 [id number] [facility] 2023-04-13 08:55:27 2023-04-13 08:55:27 Hospital Encounter Radiology 1.2.840.1 44085.1.1 3.104.2.7 .3.081300 .8 [id number] [facility] 2023-04-12 19:00:40 2023-04-12 19:00:40 Outpatient SFA SFA [id number] Georgi Delaney 2023-04-10 11:30:44 2023-04-10 11:30:44 Outpatient SFA [id number] Georgi Delaney 2023-04-05 18:18:42 2023-04-05 18:18:42 Outpatient SFA SFA [id number] Georgi Johnson Rhett 2023-04-04 09:30:00 2023-04-04 10:41:40 Outpatient R SELF, CHANEL [facility] [id number] [facility] 2023-04-04 00:00:00 2023-04-04 00:00:00 Travel 1.2.840.1 12719.1.1 3.104.2.7 .3.550570 .8 1.2.840.114 350.1.13.10 4.2.7.3.698 084.8 [id number] [facility] 2023-04-03 11:21:59 2023-04-03 11:21:59 Outpatient SFA SFA [id number] Georgi Delaney 2023-03-29 18:55:20 2023-03-29 18:55:20 Outpatient SFA SFA [id number] Georgi Delaney 2023-03-27 12:02:13 2023-03-27 12:02:13 Outpatient SFA SFA [id number] Georgi Delaney 2023-03-21 10:15:00 2023-03-21 13:01:48 Outpatient R SHARRI OLSON [facility] [id number] [facility] 2023-03-21 00:00:00 2023-03-21 00:00:00 Travel 1.2.840.1 27107.1.1 3.104.2.7 .3.494348 .8 1.2.840.114 350.1.13.10 4.2.7.3.698 084.8 [id number] [facility] 2023-03-20 12:37:00 2023-03-20 12:37:00 Outpatient [facility] [id number] Georgi Delaney 2023-03-19 14:00:00 2023-03-19 14:34:36 Outpatient R AFIA BEAULIEU [facility] [id number] [facility] 2023-03-19 14:00:00 2023-03-19 14:34:36 Office Visit Afia Beaulieu 1.2.840.1 75634.1.1 3.104.2.7 .3.358673 .8 [id number] [facility] 2023-03-19 00:00:00 2023-03-19 00:00:00 Travel 1.2.840.1 72103.1.1 3.104.2.7 .3.102884 .8 1.2.840.114 350.1.13.10 4.2.7.3.698 084.8 [id number] [facility] 2023-03-19 00:00:00 2023-03-19 00:00:00 Orders Only Zhanna Kramer 1.2.840.1 85922.1.1 3.104.2.7 .3.986480 .8 [id number] [facility] 2023-03-16 00:00:00 2023-03-16 00:00:00 Travel 1.2.840.1 21968.1.1 3.104.2.7 .3.571502 .8 1.2.840.114 350.1.13.10 4.2.7.3.698 084.8 [id number] [facility] 2023-03-15 18:23:30 2023-03-15 18:23:30 Outpatient SFA SFA [id number] Georgi Delaney 2023-03-13 15:41:52 2023-03-13 15:41:52 Outpatient SFA SFA [id number] Georgi Delaney 2023-03-09 18:15:48 2023-03-09 18:15:48 Outpatient SFA SFA [id number] Georgi Delaney 2023-03-08 18:27:54 2023-03-08 18:27:54 Outpatient SFA SFA [id number] Georgi Delaney 2023-03-07 17:09:40 2023-03-07 17:09:40 Outpatient SFA SFA [id number] Georgi Delaney 2023-03-06 13:55:04 2023-03-06 13:55:04 Outpatient SFA SFA [id number] Georgi Delaney 2023-03-01 19:02:12 2023-03-01 19:02:12 Outpatient SFA SFA [id number] Georgi Delaney 2023-02-27 12:52:47 2023-02-27 12:52:47 Outpatient SFA SFA [id number] Georgi Delaney 2023-02-27 00:00:00 2023-02-27 00:00:00 Telephone Afia Beaulieu 1.2.840.1 93246.1.1 3.104.2.7 .3.510761 .8 [id number] [facility] 2023-02-26 14:06:01 2023-02-26 23:59:00 Outpatient R AFIA BEAULIEU [facility] [id number] [facility] 2023-02-26 14:06:01 2023-02-26 23:59:00 Hospital Encounter Afia Beaulieu 1.2.840.1 60696.1.1 3.104.2.7 .3.375592 .8 [id number] [facility] 2023-02-26 00:00:00 2023-02-26 00:00:00 Orders Only Doctor Unassigned, [place] 1.2.840.1 36764.1.1 3.104.2.7 .3.166101 .8 [id number] [facility] 2023-02-23 00:00:00 2023-02-23 00:00:00 Outpatient AFIA MELVIN [facility] [id number] [facility] 2023-02-22 18:59:42 2023-02-22 18:59:42 [place]patient [place] [id number] Georgi Delaney 2023-02-22 08:00:00 2023-02-22 10:21:38 Outpatient ISELA HAIDER [facility] [id number] [facility] 2023-02-22 00:00:00 2023-02-22 00:00:00 Orders Only Doctor Unassigned, [place] [facility] 1.2.840.114 350.1.13.10 4.2.7.2.686 [id number] [facility] 2023-02-22 00:00:00 2023-02-22 00:00:00 Travel 1.2.840.1 72160.1.1 3.104.2.7 .3.582872 .8 1.2.840.114 350.1.13.10 4.2.7.3.698 084.8 [id number] [facility] 2023-02-20 00:00:00 2023-02-20 00:00:00 Telephone Afia Beaulieu 1.2.840.1 10291.1.1 3.104.2.7 .3.061144 .8 [id number] [facility] 2023-02-20 00:00:00 2023-02-20 00:00:00 Travel 1.2.840.1 55821.1.1 3.104.2.7 .3.494623 .8 1.2.840.114 350.1.13.10 4.2.7.3.698 084.8 [id number] [facility] 2023-02-19 00:00:00 2023-02-19 00:00:00 Telephone Afia Beaulieu 1.2.840.1 07149.1.1 3.104.2.7 .3.031104 .8 [id number] [facility] 2023-02-16 16:00:00 2023-02-16 16:37:59 Outpatient R AFIA BEAULIEU [facility] [id number] [facility] 2023-02-16 16:00:00 2023-02-16 16:37:59 Office Visit Afia Beaulieu 1.2.840.1 55174.1.1 3.104.2.7 .3.044032 .8 [id number] [facility] 2023-02-16 10:40:55 2023-02-16 10:40:55 Outpatient [facility] [id number] Georgi Delaney 2023-02-16 00:00:00 2023-02-16 00:00:00 Orders Only Doctor Unassigned, [place] 1.2.840.1 87514.1.1 3.104.2.7 .3.794135 .8 [id number] [facility] 2023-02-16 00:00:00 2023-02-16 00:00:00 Telephone Afia Beaulieu 1.2.840.1 35669.1.1 3.104.2.7 .3.530174 .8 [id number] [facility] 2023-02-16 00:00:00 2023-02-16 00:00:00 Refill Afia eBaulieu 1.2.840.1 94945.1.1 3.104.2.7 .3.213395 .8 [id number] [facility] 2023-02-16 00:00:00 2023-02-16 00:00:00 Travel 1.2.840.1 14377.1.1 3.104.2.7 .3.641625 .8 1.2.840.114 350.1.13.10 4.2.7.3.698 084.8 [id number] [facility] 2023-02-15 18:29:11 2023-02-15 18:29:11 Outpatient SFA SFA [id number] Georgi Johnson Rhett 2023-01-24 14:36:00 2023-01-24 14:36:00 Outpatient SFA SFA [id number] Georgi Johnson [place] 2023-01-23 11:08:53 2023-01-23 11:08:53 Outpatient SFA SFA [id number] Georgi Johnson [place] 2023-01-23 00:00:00 2023-01-23 00:00:00 Orders Only Doctor Unassigned, [place] 1.2.840.1 18597.1.1 3.104.2.7 .3.347484 .8 [id number] [facility] 2023-01-18 15:07:35 2023-01-18 15:07:35 Outpatient SFA SFA [id number] Georgi Johnson [place] 2023-01-16 16:50:24 2023-01-16 16:50:24 Outpatient SFA SFA [id number] Georgi Johnson [place] 2023-01-08 15:29:19 2023-01-08 15:29:19 Outpatient SFA SFA [id number] Georgi Johnson [place] 2023-01-03 00:00:00 2023-01-03 00:00:00 Orders Only Doctor Unassigned, [place] 1.2.840.1 36234.1.1 3.104.2.7 .3.467561 .8 [id number] [facility] 2022-12-23 09:11:36 2022-12-23 09:11:36 Outpatient SFA SFA [id number] Georgi Johnson [place] 2022-12-11 16:09:25 2022-12-11 16:09:25 Outpatient SFA SFA [id number] Georgi Delaney 2022-12-05 10:53:45 2022-12-05 10:53:45 Outpatient SFA SFA [id number] Georgi Delaney 2022-11-28 17:46:35 2022-11-28 17:46:35 Outpatient SFA SFA [id number] Georgi Delaney 2022-11-20 00:00:00 2022-11-20 00:00:[address] [facility] 1.2.840.114 350.1.13.10 4.2.7.2.686 [id number] [facility] 2022-11-17 11:28:22 2022-11-17 11:28:22 Outpatient SFA SFA 07 Georgi Delaney 2022-11-08 13:56:45 2022-11-08 13:56:45 Outpatient SFA SFA [id number] Gerogi Delaney 2022-11-01 11:26:47 2022-11-01 11:26:47 Outpatient SFA SFA 22 Georgi Delaney 2022-10-31 13:04:58 2022-10-31 13:04:58 Outpatient SFA SFA 21 Georgi Delaney 2022-10-20 11:25:26 2022-10-20 11:25:26 Outpatient SFA SFA [id number] Georgi Delaney 2022-10-19 14:02:23 2022-10-19 14:02:23 Outpatient SFA SFA [id number] Georgi Delaney 2022-10-09 10:08:28 2022-10-09 10:08:28 Outpatient SFA SFA [id number] Georgi Delaney 2022-09-21 11:54:36 2022-09-21 11:54:36 Outpatient SFA SFA [id number] Georgi Delaney 2022-09-15 11:33:15 2022-09-15 11:33:15 Outpatient SFA SFA [id number] Georgi Delaney 2022-09-08 10:49:58 2022-09-08 10:49:58 Outpatient SFA SFA 27 Georgi Delaney 2022-09-07 15:51:56 2022-09-07 15:51:56 Outpatient SFA SFA 26 Georgi Delaney 2022-09-05 10:47:25 2022-09-05 10:47:25 Outpatient SFA SFA 24 Georgi Delaney 2022-09-04 11:21:25 2022-09-04 11:21:25 Outpatient SFA SFA Georgi Delaney 2022-08-30 15:33:51 2022-08-30 15:33:51 Outpatient SFA SFA 18 Georgi Delaney 2022-08-30 00:00:00 2022-08-30 00:00:00 Outpatient Visit [id number] 3485-45fb -8adf-9d4 [id number] 485-45fb-8 adf-9d42c4 aa65e7 2022-08-25 10:13:30 2022-08-25 10:13:30 Outpatient SFA SFA 13 Georgi Delaney 2022-08-11 09:20:54 2022-08-11 09:20:54 Outpatient SFA SFA Georgi Delaney 2022-07-28 11:30:57 2022-07-28 11:30:57 Outpatient SFA SFA Georgi Delaney 2022-07-14 11:31:56 2022-07-14 11:31:56 Outpatient SFA SFA Georgi Delaney 2022-06-29 15:28:07 2022-06-29 15:28:07 Outpatient SFA SFA Georgi Delaney 2022-06-29 00:00:00 2022-06-29 00:00:00 Outpatient Visit [id number]- [id number] -8443-99f [id number] 088-44b4-8 443-99fcb6 b36be4 2022-06-16 11:17:33 2022-06-16 11:17:33 Outpatient SFA SFA [id number] Georgi Delaney 2022-06-15 09:41:11 2022-06-15 09:41:11 Outpatient SFA [id number] Georgi Delaney 2022-06-08 00:00:00 2022-06-08 00:00:00 Outpatient Visit 80atnjp7- 1155-48b2 -ut5b-dn2 [id number] 155-48b2-b d3s-gy1r3q 7966fb 2022-04-27 00:00:00 2022-04-27 00:00:00 Outpatient Visit 4wfap6ve- 48g5-86q0 -uc54-77a w56xl0a8f [id number] 5hjdy9oz-8 4y9-50u1-l p08-51rl22 ab5d1b 2022-03-02 00:00:00 2022-03-02 00:00:00 Outpatient Visit [id number] [id number]-c29 [id number] [id number] t10-7i78-8 26c-c29a66 [id number] 2021-07-27 11:56:00 2021-07-27 15:42:00 Emergency X LIZETT, Yamil [facility] ERT [id number] [facility] 2021-07-27 11:56:00 2021-07-27 15:42:00 Emergency Yamil Messina Carmen [facility] 1..840.114 350.1.13.10 4.2.7.2.686 [id number] [facility] 2021-06-24 22:06:00 2021-06-24 23:54:00 Emergency X YOON PAGE [facility] ERT [id number] [facility] 2021-06-24 22:06:00 2021-06-24 23:54:00 Emergency Yoon Page S [facility] ..840.114 350.1.13.10 4.2.7.2.686 [id number] [facility] 2021-06-24 00:00:00 2021-06-24 00:00:00 Orders Only Doctor Unassigned, [place] [facility] 1.20.114 350.1.13.10 4.2.7.2.686 [id number] [facility] 2021-02-17 14:13:58 2021-02-17 15:19:24 Office Visit Pgy2 Marques Mansfield [facility] 1..114 350.1.13.10 4.2.7.2.686 [id number] [facility] 2021-02-17 14:00:00 2021-02-17 14:00:00 Outpatient R [facility] [id number] [facility] 2021-01-06 00:00:00 2021-01-06 00:00:00 Orders Only Doctor Unassigned, [place] [facility] 1..114 350.1.13.10 4.2.7.2.686 [id number] [facility] 2021-01-05 13:58:29 2021-01-05 16:19:12 Office Visit Santos, [facility] Resident Aracely Villanueva [facility] 1.114 350.1.13.10 4.2.7.2.686 [id number] [facility] 2021-01-05 14:15:00 2021-01-05 14:15:00 Outpatient R [facility] [id number] [facility] 2020-12-10 00:00:00 2020-12-10 00:00:00 Telephone Dena Spangler [facility] 1..114 350.1.13.10 4.2.7.2.686 [id number] [facility] 2020-12-07 14:35:42 2020-12-07 16:30:20 Office Visit [place], [facility] Resident Jeanette Campos [facility] 1..840.114 350.1.13.10 4.2.7.2.686 [id number] [facility] 2020-12-07 14:30:00 2020-12-07 14:30:00 Outpatient R JEANETTE CAMPOS [facility] [id number] [facility] 2020-12-07 00:00:00 2020-12-07 00:00:00 Orders Only Doctor Unassigned, [place] [facility] 1..840.114 350.1.13.10 [id number] [id number] [facility] 2020-12-02 14:05:00 2020-12-02 14:05:00 Outpatient BEBE ACUNA [facility] [id number] [facility] Results Test Description Test Time Test Comments Results Result Co mments Source CULTURE, URINE 2024-01-11 10:18:02 SPECIMEN NUMBER: [id number] CULTURE, URINE SPECIMEN NUMBER: [id number] SPECIMEN COMMENT: URINE SOURCE: URINE REPORT STATUS: FINAL FINAL REPORT: 01/11/2024 50-100,000 CFU/ML UROGENITAL KELLY PRESENT NO COMMON PATHOGENS UNLESS OTHERWISE INDICATED, ALL TESTING PERFORMED AT [facility] [address] [place] [address] OTM CONSULTANT: TOM MORALES M.D. CLIA NUMBER [id number] [place]. [id number] Georgi Tatum, THIRD [id number] 06:31:41* Test Item Value Reference Range Interpretation Comme nts TSH, THIRD GENERATION (test code = 2821) 0.104 UIU/ML 0.400-4.100 L UNLESS OTHERWISE INDICATED, ALL TESTING PERFORMED AT [facility] [address] [place] [address] OTM CONSULTANT: TOM MORALES M.D. CLIA NUMBER [id number] [place]. [id number] TSH, THIRD [id number] 00:00:00* Test Item Value Reference Range Interpretation Comme nts TSH, THIRD GENERATION (test code = 2821) 0.104 UIU/ML Georgi Matthews THIRD [id number] 00:00:00* Test Item Value Reference Range Interpretation Comme nts TSH, THIRD GENERATION (test code = 2821) 0.104 UIU/ML Georgi Matthews, THIRD [id number] 00:00:00* Test Item Value Reference Range Interpretation Comme nts TSH, THIRD GENERATION (test code = 2821) 0.104 UIU/ML Georgi DelaneyREFERRAL- REQUEST/[id number] 16:25:56Ordered by an unspecified provider.[facility]/[id number] 16:25:56Ordered by an unspecified provider.[facility]/[id number] 16:25:56Ordered by an unspecified provider.[facility]/[id number] 16:25:56Ordered by an unspecified provider.[facility]/[id number] 16:25:56Ordered by an unspecified provider.[facility]/[id number] 16:25:56Ordered by an unspecified provider.[facility]REF[facility]QUEST/[id number] 16:25:56Ordered by an unspecified provider.[facility] REQUEST/[id number] 16:25:56Ordered by an unspecified provider.[facility]/[id number] 16:25:56Ordered by an unspecified provider.[facility]REF[facility]- REQUEST/[id number] 16:25:56Ordered by an unspecified provider.[facility]REF[facility]- REQUEST/[id number] 16:25:56Ordered by an unspecified provider[facility]/[id number] 16:25:56Ordered by an unspecified provider.[facility]REF[facility]- REQUEST/[id number] 16:25:56Ordered by an unspecified provider.[facility]/[id number] 16:25:56Ordered by an unspecified provider.[facility] LUMBAR SPINE 4 [id number] 20:17:08HISTORY: ?Low back pain. FINDINGS: AP, lateral and [...] mild changes of disc disease at L3-L4, L4-L5.[facility] THORACIC SPINE 2 [id number] 20:15:05HISTORY: ?Back pain. COMPARISON: None. TECHNIQUE: AP and lateral views of the thoracic spines are submitted. FINDINGS: No compression fracture detected. No aggressive bone lesions orparavertebral soft tissue swelling. Small osteophytes are seen along theventral and lateral vertebral margins at middle and lower thoracic levels. CONCLUSIONS: No fracture.[facility] TEST 2023-10-17 06:14:00* Test Item Value Reference Range Interpretation Comme nts POCT PREG (test code = 1605) Negative On board controls acceptable with C Line (test code = 3574) Yes POCT PREG LOT # (test code = 3575) [id number] POCT PREG TEST DATE ( test code = 357) 11/18/2024 Lab Interpretation (test cod e = 95473-4) Normal [facility] [id number] 06:14:00* Test Item Value Reference Range Interpretation Comme nts POCT PREG (test code = 1605) Negative On board controls acceptable with C Line (test code = 3574) Yes POCT PREG LOT # (test code = 3575) [id number] POCT PREG TEST DATE ( test code = 3576) 11/18/2024 Lab Interpretation (test cod e = 58883-1) [facility] [facility] [id number] 06:14:00* Test Item Value Reference Range Interpretation Comme nts POCT PREG (test code = 1605) Negative On board controls acceptable with C Line (test code = 3574) Yes POCT PREG LOT # (test code = 3575) [id number] POCT PREG TEST DATE ( test code = 3576) 11/18/2024 Lab Interpretation (test cod e = 34787-4) [facility] [id number] 06:14:00* Test Item Value Reference Range Interpretation Comme nts POCT PREG (test code = 1605) Negative On board controls acceptable with C Line (test code = 3574) Yes POCT PREG LOT # (test code = 3575) [id number] POCT PREG TEST DATE ( test code = 3576) 11/18/2024 Lab Interpretation (test cod e = 83801-3) [facility] [id number] 06:14:00* Test Item Value Reference Range Interpretation Comme nts POCT PREG (test code = 1605) Negative On board controls acceptable with C Line (test code = 3574) Yes POCT PREG LOT # (test code = 3575) 157166 POCT PREG TEST DATE ( test code = 3576) 11/18/2024 Lab Interpretation (test cod e = 05037-0) [facility] [id number] 06:14:00* Test Item Value Reference Range Interpretation Comme nts POCT PREG (test code = 1605) Negative On board controls acceptable with C Line (test code = 3574) Yes POCT PREG LOT # (test code = 3575) [id number] POCT PREG TEST DATE ( test code = 3576) 11/18/2024 Lab Interpretation (test cod e = 05620-3) [facility] [id number] 06:14:00* Test Item Value Reference Range Interpretation Comme nts POCT PREG (test code = 1605) Negative On board controls acceptable with C Line (test code = 3574) Yes POCT PREG LOT # (test code = 3575) [id number] POCT PREG TEST DATE ( test code = 3576) 11/18/2024 Lab Interpretation (test cod e = 63615-6) [facility] [id number] 06:14:00* Test Item Value Reference Range Interpretation Comme nts POCT PREG (test code = 1605) Negative On board controls acceptable with C Line (test code = 3574) Yes POCT PREG LOT # (test code = 3575) [id number] POCT PREG TEST DATE ( test code = 3576) 11/18/2024 Lab Interpretation (test cod e = 13167-2) [facility] [id number] 06:14:00* Test Item Value Reference Range Interpretation Comme nts POCT PREG (test code = 1605) Negative On board controls acceptable with C Line (test code = 3574) Yes POCT PREG LOT # (test code = 3575) [id number] POCT PREG TEST DATE ( test code = 3576) 11/18/2024 Lab Interpretation (test cod e = 94430-4) [facility] [id number] 06:14:00* Test Item Value Reference Range Interpretation Comme nts POCT PREG (test code = 1605) Negative On board controls acceptable with C Line (test code = 3574) Yes POCT PREG LOT # (test code = 3575) [id number] POCT PREG TEST DATE ( test code = 3576) 11/18/2024 Lab Interpretation (test cod e = 53199-7) [facility] [id number] 06:14:00* Test Item Value Reference Range Interpretation Comme nts POCT PREG (test code = 1605) Negative On board controls acceptable with C Line (test code = 3574) Yes POCT PREG LOT # (test code = 3575) 135558 POCT PREG TEST DATE ( test code = 3576) 11/18/2024 Lab Interpretation (test cod e = 84494-6) [facility] [id number] 06:14:00* Test Item Value Reference Range Interpretation Comme nts POCT PREG (test code = 1605) Negative On board controls acceptable with C Line (test code = 3574) Yes POCT PREG LOT # (test code = 3575) [id number] POCT PREG TEST DATE ( test code = 3576) 11/18/2024 Lab Interpretation (test cod e = 71081-2) [facility] [id number] 06:14:00* Test Item Value Reference Range Interpretation Comme nts POCT PREG (test code = 1605) Negative On board controls acceptable with C Line (test code = 3574) Yes POCT PREG LOT # (test code = 3575) 105891 POCT PREG TEST DATE ( test code = 3576) 11/18/2024 Lab Interpretation (test cod e = 16150-7) [facility] [id number] 06:14:00* Test Item Value Reference Range Interpretation Comme nts POCT PREG (test code = 1605) Negative On board controls acceptable with C Line (test code = 3574) Yes POCT PREG LOT # (test code = 3575) [id number] POCT PREG TEST DATE ( test code = 3576) 11/18/2024 Lab Interpretation (test cod e = 47046-4) [facility] [id number] 06:14:00* Test Item Value Reference Range Interpretation Comme nts POCT PREG (test code = 1605) Negative On board controls acceptable with C Line (test code = 3574) Yes POCT PREG LOT # (test code = 3575) [id number] POCT PREG TEST DATE ( test code = 3576) 11/18/2024 Lab Interpretation (test cod e = 96276-2) [facility] [id number] 06:14:00* Test Item Value Reference Range Interpretation Comme nts POCT PREG (test code = 1605) Negative On board controls acceptable with C Line (test code = 3574) Yes POCT PREG LOT # (test code = 3575) 212548 POCT PREG TEST DATE ( test code = 3576) 11/18/2024 Lab Interpretation (test cod e = 58099-9) [facility] [id number] 06:14:00* Test Item Value Reference Range Interpretation Comme nts POCT PREG (test code = 1605) Negative On board controls acceptable with C Line (test code = 3574) Yes POCT PREG LOT # (test code = 3575) 479136 POCT PREG TEST DATE ( test code = 3576) 11/18/2024 Lab Interpretation (test cod e = 91822-6) [facility] [id number] 06:14:00* Test Item Value Reference Range Interpretation Comme nts POCT PREG (test code = 1605) Negative On board controls acceptable with C Line (test code = 3574) Yes POCT PREG LOT # (test code = 3575) 344891 POCT PREG TEST DATE ( test code = 3576) 11/18/2024 Lab Interpretation (test cod e = 27496-5) [facility] [id number] 06:14:00* Test Item Value Reference Range Interpretation Comme nts POCT PREG (test code = 1605) Negative On board controls acceptable with C Line (test code = 3574) Yes POCT PREG LOT # (test code = 3575) 379264 POCT PREG TEST DATE ( test code = 3576) 11/18/2024 Lab Interpretation (test cod e = 18753-7) [facility] 04:48:14* Test Item Value Reference Range Interpretation Comme nts FREE T3 (test code = 4273) 2.4 PG/ML 2.2-4.2 FREE T4 (THYROXINE)2023-09-07 04:48:14* Test Item Value Reference Range Interpretation Comme nts FREE T4 (THYROXINE) (test code = 2823) 1.28 NG/DL 0.80-1.90 UNLESS OTHERWISE INDICATED, ALL TESTING PERFORMED AT [facility] [address] [place] [address] OTM CONSULTANT: TOM MORALES M.D. CLIA NUMBER [id number] [facility] [place]. [id number] [facility] 00:00:00* Test Item Value Reference Range Interpretation Comme nts FREE T3 (test code = 4273) 2.4 PG/ML Georgi DelaneyMARY T4 (THYROXINE)2023-09-07 00:00:00* Test Item Value Reference Range Interpretation Comme nts FREE T4 (THYROXINE) (test co de = 2823) 1.28 NG/DL Georgi Donahue 00:00:00* Test Item Value Reference Range Interpretation Comme nts FREE T3 (test code = 4273) 2.4 PG/ML Georgi Donahue T4 (THYROXINE)2023-09-07 00:00:00* Test Item Value Reference Range Interpretation Comme nts FREE T4 (THYROXINE) (test co de = 2823) 1.28 NG/DL Georgi Donahue 00:00:00* Test Item Value Reference Range Interpretation Comme nts FREE T3 (test code = 4273) 2.4 PG/ML Georgi Donahue T4 (THYROXINE)2023-09-07 00:00:00* Test Item Value Reference Range Interpretation Comme nts FREE T4 (THYROXINE) (test co de = 2823) 1.28 NG/DL YUNG Pepper [id number] 09:15:10* Test Item Value Reference Range Interpretation Comme nts TSH, THIRD GENERATION (test code = 2821) 0.272 UIU/ML 0.400-4.100 L UNLESS OTHERWISE INDICATED, ALL TESTING PERFORMED AT [facility] [address] [place] [address] OTM CONSULTANT: TOM MORALES M.D. CLIA NUMBER [id number] [facility] [place] [place]. [id number] TSH, THIRD [id number] 00:00:00* Test Item Value Reference Range Interpretation Comme nts TSH, THIRD GENERATION (test code = 2821) 0.272 UIU/ML Georgi Matthews THIRD [id number] 00:00:00* Test Item Value Reference Range Interpretation Comme nts TSH, THIRD GENERATION (test code = 2821) 0.272 UIU/ML Georgi Matthews THIRD [id number] 00:00:00* Test Item Value Reference Range Interpretation Comme nts TSH, THIRD GENERATION (test code = 2821) 0.272 UIU/ML Georgi Matthews THIRD [id number] 04:01:26* Test Item Value Reference Range Interpretation Comme nts TSH, THIRD GENERATION (test code = 2821) 0.960 UIU/ML 0.400-4.100 FREE [id number] 04:01:26* Test Item Value Reference Range Interpretation Comme nts FREE T3 (test code = 4273) 2.8 PG/ML 2.2-4.2 FREE T4 (THYROXINE)2023-06-07 04:01:26* Test Item Value Reference Range Interpretation Comme nts FREE T4 (THYROXINE) (test co de = 2823) 1.51 NG/DL 0.80-1.90 [facility] [id number] 04:01:09* Test Item Value Reference Range Interpretation Comme nts HIGH SENSITIVITY CRP (test code = 31696) 10.1 MG/L SEE BELOW H hsCRP LEVEL RELATIVE RISK <1.0 MG/L LOW 1.0-3.0 MG/L AVERAGE >3.0 MG/L HIGH (from Philomena TNatalieA. et al. Circulation 2003; 107:499) CBC W/AUTO DIFF WITH [id number] 02:38:59* Test Item Value Reference Range Interpretation [...] 0.00-0.10 ABS NUCLEATED RBCS (test code = 27653) 0.00 K/UL 0.00-0.11 UNLESS OTHER JENSEN INDICATED, ALL TESTING PERFORMED AT [facility] [address] [place] [address] OTM CONSULTANT: TOM MORALES M.D. CLIA NUMBER [id number] [facility] [place]. [id number] TSH, THIRD [id number] 00:00:00* Test Item Value Reference Range Interpretation Comme nts TSH, THIRD GENERATION (test code = 2821) 0.960 UIU/ML Georgi Clark [id number] 00:00:00* Test Item Value Reference Range Interpretation Comme nts FREE T3 (test code = 4273) 2.8 PG/ML [facility] T4 (THYROXINE)2023-06-07 00:00:00* Test Item Value Reference Range Interpretation Comme nts FREE T4 (THYROXINE) (test co de = 2823) 1.51 NG/DL Georgi DelaneyHIGH SENSITIVITY [id number] 00:00:00* Test Item Value Reference Range Interpretation Comme nts HIGH SENSITIVITY CRP (test c ode = 84374) 10.1 MG/L Georgi DelaneyCBC W/AUTO [id number] 00:00:00* Test Item Value Reference Range Interpretation Comme nts WBC (test code = 1001) 10.1 K/UL RBC (test code = 1002) 4.84 M/UL HEMOGLOBIN (test code = 1003) 13.7 G/DL HEMATOCRIT (test code = 1004) 41.2 % MCV (test code = 1005) 85.1 fL MCH (test code = 1006) 28.3 PG MCHC (test code = 1007) 33.3 G/DL RDW (test code = 1038) 13.9 % NEUTROPHILS (test code = 1008) 51.7 % LYMPHOCYTES (test code = 1010) 40.9 % MONOCYTES (test code = 1011) 6.3 % EOSINOPHILS (test code = 1012) 0.6 % BASOPHILS (test code = 1013) 0.2 % IMMATURE GRANULOCYTES (test code = 1036) 0.3 % NUCLEATED RBCS (test code = 1065) 0.0 /100WBC'S PLATELET COUNT (test code = 1015) 313 K/UL ABSOLUTE NEUTROPHILS (test c ode = 1066) 5.21 K/UL ABSOLUTE LYMPHOCYTES (test c ode = 1067) 4.12 K/UL ABSOLUTE MONOCYTES (test cod e = 1068) 0.63 K/UL ABSOLUTE EOSINOPHILS (test c ode = 1040) 0.06 K/UL ABSOLUTE BASOPHILS (test cod e = 1069) 0.02 K/UL ABS IMMATURE GRANULOCYTES (t est code = 1020) 0.03 K/UL ABS NUCLEATED RBCS (test cod e = 36246) 0.00 K/UL Georgi TatumH, THIRD [id number] 00:00:00* Test Item Value Reference Range Interpretation Comme nts TSH, THIRD GENERATION (test code = 2821) 0.960 UIU/ML Georgi DelaneyMARY [id number] 00:00:00* Test Item Value Reference Range Interpretation Comme nts FREE T3 (test code = 4273) 2.8 PG/ML Georgi Delaney T4 (THYROXINE)2023-06-07 00:00:00* Test Item Value Reference Range Interpretation Comme nts FREE T4 (THYROXINE) (test co de = 2823) 1.51 NG/DL Georgi Alex RhettHIGH SENSITIVITY [id number] 00:00:00* Test Item Value Reference Range Interpretation Comme nts HIGH SENSITIVITY CRP (test c ode = 66053) 10.1 MG/L Georgi Alex RhettCBC W/AUTO [id number] 00:00:00* Test Item Value Reference Range Interpretation Comme nts WBC (test code = 1001) 10.1 K/UL RBC (test code = 1002) 4.84 M/UL HEMOGLOBIN (test code = 1003) 13.7 G/DL HEMATOCRIT (test code = 1004) 41.2 % MCV (test code = 1005) 85.1 fL MCH (test code = 1006) 28.3 PG MCHC (test code = 1007) 33.3 G/DL RDW (test code = 1038) 13.9 % NEUTROPHILS (test code = 1008) 51.7 % LYMPHOCYTES (test code = 1010) 40.9 % MONOCYTES (test code = 1011) 6.3 % EOSINOPHILS (test code = 1012) 0.6 % BASOPHILS (test code = 1013) 0.2 % IMMATURE GRANULOCYTES (test code = 1036) 0.3 % NUCLEATED RBCS (test code = 1065) 0.0 /100WBC'S PLATELET COUNT (test code = 1015) 313 K/UL ABSOLUTE NEUTROPHILS (test c ode = 1066) 5.21 K/UL ABSOLUTE LYMPHOCYTES (test c ode = 1067) 4.12 K/UL ABSOLUTE MONOCYTES (test cod e = 1068) 0.63 K/UL ABSOLUTE EOSINOPHILS (test c ode = 1040) 0.06 K/UL ABSOLUTE BASOPHILS (test cod e = 1069) 0.02 K/UL ABS IMMATURE GRANULOCYTES (t est code = 1020) 0.03 K/UL ABS NUCLEATED RBCS (test cod e = 30048) 0.00 K/UL Georgi DelaneyTSH, THIRD [id number] 00:00:00* Test Item Value Reference Range Interpretation Comme nts TSH, THIRD GENERATION (test code = 2821) 0.960 UIU/ML [facility] [id number] 00:00:00* Test Item Value Reference Range Interpretation Comme nts FREE T3 (test code = 4273) 2.8 PG/ML [facility] T4 (THYROXINE)2023-06-07 00:00:00* Test Item Value Reference Range Interpretation Comme nts FREE T4 (THYROXINE) (test co de = 2823) 1.51 NG/DL Georgi DelaneyHIGH SENSITIVITY [id number] 00:00:00* Test Item Value Reference Range Interpretation Comme nts HIGH SENSITIVITY CRP (test c ode = 93011) 10.1 MG/L Georgi DelaneyCBC W/AUTO [id number] 00:00:00* Test Item Value Reference Range Interpretation Comme nts WBC (test code = 1001) 10.1 K/UL RBC (test code = 1002) 4.84 M/UL HEMOGLOBIN (test code = 1003) 13.7 G/DL HEMATOCRIT (test code = 1004) 41.2 % MCV (test code = 1005) 85.1 fL MCH (test code = 1006) 28.3 PG MCHC (test code = 1007) 33.3 G/DL RDW (test code = 1038) 13.9 % NEUTROPHILS (test code = 1008) 51.7 % LYMPHOCYTES (test code = 1010) 40.9 % MONOCYTES (test code = 1011) 6.3 % EOSINOPHILS (test code = 1012) 0.6 % BASOPHILS (test code = 1013) 0.2 % IMMATURE GRANULOCYTES (test code = 1036) 0.3 % NUCLEATED RBCS (test code = 1065) 0.0 /100WBC'S PLATELET COUNT (test code = 1015) 313 K/UL ABSOLUTE NEUTROPHILS (test c ode = 1066) 5.21 K/UL ABSOLUTE LYMPHOCYTES (test c ode = 1067) 4.12 K/UL ABSOLUTE MONOCYTES (test cod e = 1068) 0.63 K/UL ABSOLUTE EOSINOPHILS (test c ode = 1040) 0.06 K/UL ABSOLUTE BASOPHILS (test cod e = 1069) 0.02 K/UL ABS IMMATURE GRANULOCYTES (t est code = 1020) 0.03 K/UL ABS NUCLEATED RBCS (test cod e = 15623) 0.00 K/UL Georgi DelaneyTSH + FREE T4 [id number] 06:33:47* Test Item Value Reference Range Interpretation Comme nts TSH, THIRD GENERATION (test code = 2821) 0.381 UIU/ML 0.400-4.100 L FREE T4 (THYROXINE) (test co de = 2823) 1.49 NG/DL 0.80-1.90 T3 [id number] 06:33:47* Test Item Value Reference Range Interpretation Comme nts T3 TOTAL (test code = 2818) 98 NG/DL 80-200 HIGH SENSITIVITY [id number] 04:12:17* Test Item Value Reference Range Interpretation Comme nts HIGH SENSITIVITY CRP (test code = 95914) 3.5 MG/L SEE BELOW H hsCRP LEVEL RELATIVE RISK <1.0 MG/L LOW 1.0-3.0 MG/L AVERAGE >3.0 MG/L HIGH (from Philomena TNatalieA. et al. Circulation 2003; 107:499) UNLESS OTHERWISE INDICATED, ALL TESTING PERFORMED AT [facility] [address] [place] [address] OTM CONSULTANT: TOM MORALES M.D. CLIA NUMBER [id number] [facility] [place]. [id number] CBC W/AUTO DIFF WITH [id number] 01:43:18* Test Item Value Reference Range Interpretation [...] = 1065) 0.0 /100 WBC'S See_Comment [Automated WindowsWeara ge] The system which generated this result [...] 0.00-0.10 ABS NUCLEATED RBCS (test code = 40779) 0.00 K/UL 0.00-0.11 CBC W/AUTO [id number] 00:00:00* Test Item Value Reference Range Interpretation Comme nts WBC (test code = 1001) 10.2 K/UL RBC (test code = 1002) 5.07 M/UL HEMOGLOBIN (test code = 1003) 13.9 G/DL HEMATOCRIT (test code = 1004) 42.8 % MCV (test code = 1005) 84.4 fL MCH (test code = 1006) 27.4 PG MCHC (test code = 1007) 32.5 G/DL RDW (test code = 1038) 13.6 % NEUTROPHILS (test code = 1008) 48.8 % LYMPHOCYTES (test code = 1010) 41.9 % MONOCYTES (test code = 1011) 6.3 % EOSINOPHILS (test code = 1012) 2.0 % BASOPHILS (test code = 1013) 0.6 % IMMATURE GRANULOCYTES (test code = 1036) 0.4 % NUCLEATED RBCS (test code = 1065) 0.0 /100WBC'S PLATELET COUNT (test code = 1015) 323 K/UL ABSOLUTE NEUTROPHILS (test c ode = 1066) 4.99 K/UL ABSOLUTE LYMPHOCYTES (test c ode = 1067) 4.27 K/UL ABSOLUTE MONOCYTES (test cod e = 1068) 0.64 K/UL ABSOLUTE EOSINOPHILS (test c ode = 1040) 0.20 K/UL ABSOLUTE BASOPHILS (test cod e = 1069) 0.06 K/UL ABS IMMATURE GRANULOCYTES (t est code = 1020) 0.04 K/UL ABS NUCLEATED RBCS (test cod e = 00919) 0.00 K/UL Georgi DelaneyTSH + FREE T4 [id number] 00:00:00* Test Item Value Reference Range Interpretation Comme nts TSH, THIRD GENERATION (test code = 2821) 0.381 UIU/ML FREE T4 (THYROXINE) (test co de = 2823) 1.49 NG/DL Georgi DelaneyT3 [id number] 00:00:00* Test Item Value Reference Range Interpretation Comme nts T3 TOTAL (test code = 2818) 98 NG/DL Georgi DelaneyHIGH SENSITIVITY [id number] 00:00:00* Test Item Value Reference Range Interpretation Comme nts HIGH SENSITIVITY CRP (test c ode = 51398) 3.5 MG/L Georgi DelaneyCBC W/AUTO [id number] 00:00:00* Test Item Value Reference Range Interpretation Comme nts WBC (test code = 1001) 10.2 K/UL RBC (test code = 1002) 5.07 M/UL HEMOGLOBIN (test code = 1003) 13.9 G/DL HEMATOCRIT (test code = 1004) 42.8 % MCV (test code = 1005) 84.4 fL MCH (test code = 1006) 27.4 PG MCHC (test code = 1007) 32.5 G/DL RDW (test code = 1038) 13.6 % NEUTROPHILS (test code = 1008) 48.8 % LYMPHOCYTES (test code = 1010) 41.9 % MONOCYTES (test code = 1011) 6.3 % EOSINOPHILS (test code = 1012) 2.0 % BASOPHILS (test code = 1013) 0.6 % IMMATURE GRANULOCYTES (test code = 1036) 0.4 % NUCLEATED RBCS (test code = 1065) 0.0 /100WBC'S PLATELET COUNT (test code = 1015) 323 K/UL ABSOLUTE NEUTROPHILS (test c ode = 1066) 4.99 K/UL ABSOLUTE LYMPHOCYTES (test c ode = 1067) 4.27 K/UL ABSOLUTE MONOCYTES (test cod e = 1068) 0.64 K/UL ABSOLUTE EOSINOPHILS (test c ode = 1040) 0.20 K/UL ABSOLUTE BASOPHILS (test cod e = 1069) 0.06 K/UL ABS IMMATURE GRANULOCYTES (t est code = 1020) 0.04 K/UL ABS NUCLEATED RBCS (test cod e = 29162) 0.00 K/UL Georgi DelaneyTSH + FREE T4 [id number] 00:00:00* Test Item Value Reference Range Interpretation Comme nts TSH, THIRD GENERATION (test code = 2821) 0.381 UIU/ML FREE T4 (THYROXINE) (test co de = 2823) 1.49 NG/DL Georgi DelaneyT3 [id number] 00:00:00* Test Item Value Reference Range Interpretation Comme nts T3 TOTAL (test code = 2818) 98 NG/DL Georgi DelaneyHIGH SENSITIVITY [id number] 00:00:00* Test Item Value Reference Range Interpretation Comme nts HIGH SENSITIVITY CRP (test c ode = 88688) 3.5 MG/L Georgi DelaneyCBC W/AUTO [id number] 00:00:00* Test Item Value Reference Range Interpretation Comme nts WBC (test code = 1001) 10.2 K/UL RBC (test code = 1002) 5.07 M/UL HEMOGLOBIN (test code = 1003) 13.9 G/DL HEMATOCRIT (test code = 1004) 42.8 % MCV (test code = 1005) 84.4 fL MCH (test code = 1006) 27.4 PG MCHC (test code = 1007) 32.5 G/DL RDW (test code = 1038) 13.6 % NEUTROPHILS (test code = 1008) 48.8 % LYMPHOCYTES (test code = 1010) 41.9 % MONOCYTES (test code = 1011) 6.3 % EOSINOPHILS (test code = 1012) 2.0 % BASOPHILS (test code = 1013) 0.6 % IMMATURE GRANULOCYTES (test code = 1036) 0.4 % NUCLEATED RBCS (test code = 1065) 0.0 /100WBC'S PLATELET COUNT (test code = 1015) 323 K/UL ABSOLUTE NEUTROPHILS (test c ode = 1066) 4.99 K/UL ABSOLUTE LYMPHOCYTES (test c ode = 1067) 4.27 K/UL ABSOLUTE MONOCYTES (test cod e = 1068) 0.64 K/UL ABSOLUTE EOSINOPHILS (test c ode = 1040) 0.20 K/UL ABSOLUTE BASOPHILS (test cod e = 1069) 0.06 K/UL ABS IMMATURE GRANULOCYTES (t est code = 1020) 0.04 K/UL ABS NUCLEATED RBCS (test cod e = 27640) 0.00 K/UL Georgi Matthews + FREE T4 [id number] 00:00:00* Test Item Value Reference Range Interpretation Comme amador TSH, THIRD GENERATION (test code = 2821) 0.381 UIU/ML FREE T4 (THYROXINE) (test co de = 2823) 1.49 NG/DL Georgi DelaneyT3 [id number] 00:00:00* Test Item Value Reference Range Interpretation Comme amador T3 TOTAL (test code = 2818) 98 NG/DL Georgi DelaneyHIGH SENSITIVITY [id number] 00:00:00* Test Item Value Reference Range Interpretation Comme amador HIGH SENSITIVITY CRP (test c ode = 68241) 3.5 MG/L Georgi Matthews THIRD [id number] 12:02:55* Test Item Value Reference Range Interpretation Comme amador TSH, THIRD GENERATION (test code = 2821) 0.678 UIU/ML 0.400-4.100 UNLESS OTHERWISE INDICATED, ALL TESTING PERFORMED AT [facility] [address] [place] [address] OTM CONSULTANT: TOM MORALES M.D. CLIA NUMBER [id number] [facility] [place]. [id number] TSH, THIRD [id number] 00:00:00* Test Item Value Reference Range Interpretation Comme amador TSH, THIRD GENERATION (test code = 2821) 0.678 UIU/ML Georgi Matthews THIRD [id number] 00:00:00* Test Item Value Reference Range Interpretation Comme amador TSH, THIRD GENERATION (test code = 2821) 0.678 UIU/ML Georgi Matthews THIRD [id number] 00:00:00* Test Item Value Reference Range Interpretation Comme amador TSH, THIRD GENERATION (test code = 2821) 0.678 UIU/ML Georgi DelaneyHEMOGLOBIN [id number] 03:11:34* Test Item Value Reference Range Interpretation Comme amador HEMOGLOBIN A1c (test code = 76341) 5.9 % 4.2-5.6 H [employer] GUIDELINES FOR HGB A1C: [...] TESTING PERFORMED AT [facility] [address] [place] [address] OTM CONSULTANT: TOM MORALES M.D. [place] NUMBER [id number] [facility] [place]. [id number] HEMOGLOBIN [id number] 00:00:00* Test Item Value Reference Range Interpretation Comme amador HEMOGLOBIN A1c (test code = 38194) 5.9 % Georgi DelaneyHEMOGLOBIN [id number] 00:00:00* Test Item Value Reference Range Interpretation Comme amador HEMOGLOBIN A1c (test code = 64793) 5.9 % Georgi DelaneyHEMOGLOBIN [id number] 00:00:00* Test Item Value Reference Range Interpretation Comme amador HEMOGLOBIN A1c (test code = 79732) 5.9 % Georgi Matthews, THIRD [id number] 00:00:00* Test Item Value Reference Range Interpretation Comme amador TSH, THIRD GENERATION (test code = 2821) 0.753 UIU/ML Georgi Matthews, THIRD [id number] 00:00:00* Test Item Value Reference Range Interpretation Comme amador TSH, THIRD GENERATION (test code = 2821) 0.753 UIU/ML Georgi Matthews, THIRD [id number] 00:00:00* Test Item Value Reference Range Interpretation Comme amador TSH, THIRD GENERATION (test code = 2821) 0.753 UIU/ML Georgi DelaneyCOMPREHENSIVE METABOLIC [id number] 07:39:28* Test Item Value Reference Range Interpretation Comme amador GLUCOSE (test code = 2217) 112 MG/DL 70-99 H BUN (test code = 2208) 14 MG/DL 6-20 CREATININE (test code = 2214) 0.79 MG/DL 0.60-1.30 eGFR (2020 CKD-EPI) (test code = 09170) 101 ML/MIN/1.73 >60 CALC BUN/CREAT (test code = 2235) 18 RATIO 6-28 SODIUM (test code = 223) 140 MEQ/L 133-146 POTASSIUM (test code = 2228) 3.8 MEQ/L 3.5-5.4 CHLORIDE (test code = 2215) 101 MEQ/L 95-107 CARBON DIOXIDE (test code = 2206) 24 MEQ/L 19-31 CALCIUM (test code = 2208) 9.7 MG/DL 8.5-10.5 PROTEIN, TOTAL (test code = 2228) 6.7 G/DL 6.1-8.3 ALBUMIN (test code = 2200) 4.1 G/DL 3.5-5.2 CALC GLOBULIN (test code = 2240) 2.6 G/DL 1.9-3.7 CALC A/G RATIO (test code = 2233) 1.6 RATIO 1.0-2.6 BILIRUBIN, TOTAL (test code = 2206) <0.2 MG/DL See_Comment [Automated me ssage] The system which generated this result transmitted reference range: <=1.2. The reference range was not used to interpret this result as normal/abnormal. ALKALINE PHOSPHATASE (test code = 2203) 80 U/L 40-114 AST (test code = 8) 22 U/L 9-40 ALT (test code = 2219) 24 U/L 5-40 UNLESS OTHERWISE INDICATED, ALL TESTING PERFORMED [facility] [employer] [address] [place] [address] OTM CONSULTANT: EDVIN BENSON M.D. CLIA NUMBER [id number] [facility] [place]. [id number] HEMOGLOBIN [id number] 04:57:47* Test Item Value Reference Range Interpretation Comme [facility] HEMOGLOBIN A1c (test code = 34531) 6.1 % 4.2-5.6 H HEMOGLOBIN [id number] 00:00:00* Test Item Value Reference Range Interpretation Comme [facility] HEMOGLOBIN A1c (test code = 77135) 6.1 % Georgi DelaneyCOMPREHENSIVE METABOLIC [id number] 00:00:00* Test Item Value Reference Range Interpretation Comme [facility] GLUCOSE (test code = 7) 112 MG/DL BUN (test code = 8) 14 MG/DL CREATININE (test code = 4) 0.79 MG/DL eGFR (2020 CKD-EPI) (test code = 15331) 101 ML/MIN/1.73 CALC BUN/CREAT (test code = 2235) 18 RATIO SODIUM (test code = 2231) 140 MEQ/L POTASSIUM (test code = 2228) 3.8 MEQ/L CHLORIDE (test code = 2215) 101 MEQ/L CARBON DIOXIDE (test code = 2206) 24 MEQ/L CALCIUM (test code = 2209) 9.7 MG/DL PROTEIN, TOTAL (test code = 2229) 6.7 G/DL ALBUMIN (test code = 2201) 4.1 G/DL CALC GLOBULIN (test code = 2240) 2.6 G/DL CALC A/G RATIO (test code = 2234) 1.6 RATIO BILIRUBIN, TOTAL (test code = 2207) <0.2 MG/DL ALKALINE PHOSPHATASE (test code = 2204) 80 U/L AST (test code = 2218) 22 U/L ALT (test code = 2219) 24 U/L Georgi DelaneyHEMOGLOBIN [id number] 00:00:00* Test Item Value Reference Range Interpretation Comme [facility] HEMOGLOBIN A1c (test code = 99483) 6.1 % Georgi DelaneyCOMPREHENSIVE METABOLIC [id number] 00:00:00* Test Item Value Reference Range Interpretation Comme nts GLUCOSE (test code = 2217) 112 MG/DL BUN (test code = 2208) 14 MG/DL CREATININE (test code = 2214) 0.79 MG/DL eGFR (2020 CKD-EPI) (test code = 32137) 101 ML/MIN/1.73 CALC BUN/CREAT (test code = 2235) 18 RATIO SODIUM (test code = 2231) 140 MEQ/L POTASSIUM (test code = 2228) 3.8 MEQ/L CHLORIDE (test code = 2215) 101 MEQ/L CARBON DIOXIDE (test code = 2206) 24 MEQ/L CALCIUM (test code = 2209) 9.7 MG/DL PROTEIN, TOTAL (test code = 2229) 6.7 G/DL ALBUMIN (test code = 2201) 4.1 G/DL CALC GLOBULIN (test code = 2240) 2.6 G/DL CALC A/G RATIO (test code = 2234) 1.6 RATIO BILIRUBIN, TOTAL (test code = 2207) <0.2 MG/DL ALKALINE PHOSPHATASE (test code = 2204) 80 U/L AST (test code = 2218) 22 U/L ALT (test code = 2219) 24 U/L Georgi DelaneyHEMOGLOBIN [id number] 00:00:00* Test Item Value Reference Range Interpretation Comme [facility] HEMOGLOBIN A1c (test code = 54587) 6.1 % Georgi DelaneyCOMPREHENSIVE METABOLIC [id number] 00:00:00* Test Item Value Reference Range Interpretation Comme nts GLUCOSE (test code = 2217) 112 MG/DL BUN (test code = 2208) 14 MG/DL CREATININE (test code = 2214) 0.79 MG/DL eGFR (2020 CKD-EPI) (test code = 07534) 101 ML/MIN/1.73 CALC BUN/CREAT (test code = 2235) 18 RATIO SODIUM (test code = 2231) 140 MEQ/L POTASSIUM (test code = 2228) 3.8 MEQ/L CHLORIDE (test code = 2215) 101 MEQ/L CARBON DIOXIDE (test code = 2206) 24 MEQ/L CALCIUM (test code = 2209) 9.7 MG/DL PROTEIN, TOTAL (test code = 2229) 6.7 G/DL ALBUMIN (test code = 2201) 4.1 G/DL CALC GLOBULIN (test code = 2240) 2.6 G/DL CALC A/G RATIO (test code = 2234) 1.6 RATIO BILIRUBIN, TOTAL (test code = 2207) <0.2 MG/DL ALKALINE PHOSPHATASE (test code = 2204) 80 U/L AST (test code = 2218) 22 U/L ALT (test code = 2219) 24 U/L Georgi DelaneyTSH, THIRD [id number] 03:25:48* Test Item Value Reference Range Interpretation Comme amador TSH, THIRD GENERATION (test code = 2821) 2.310 UIU/ML 0.400-4.100 UNLESS OTHERWISE INDICATED, ALL TESTING PERFORMED [facility] [address] [place] [address] OTM CONSULTANT: EDVIN BENSON M.D. CLIA NUMBER [id number] [place]. [id number] TSH, THIRD [id number] 00:00:00* Test Item Value Reference Range Interpretation Comme [facility] TSH, THIRD GENERATION (test code = 2821) 2.310 UIU/ML TSH, THIRD [id number] 00:00:00* Test Item Value Reference Range Interpretation Comme nts TSH, THIRD GENERATION (test code = 2821) 2.310 UIU/ML TSH, THIRD [id number] 00:00:00* Test Item Value Reference Range Interpretation Comme nts TSH, THIRD GENERATION (test code = 2821) 2.310 UIU/ML TSH, THIRD [id number] 00:00:00* Test Item Value Reference Range Interpretation Comme nts TSH, THIRD GENERATION (test code = 2821) 2.310 UIU/ML Georgi TatumH, THIRD [id number] 00:00:00* Test Item Value Reference Range Interpretation Comme nts TSH, THIRD GENERATION (test code = 2821) 2.310 UIU/ML Georgi TatumH, THIRD [id number] 00:00:00* Test Item Value Reference Range Interpretation Comme nts TSH, THIRD GENERATION (test code = 2821) 2.310 UIU/ML Georgi Johnson [id number] 00:00:00* Test Item Value Reference Range Interpretation Comme nts 17-HYDROXYPROGESTERONE (test code = 4304) 45 ng/dL 41-[id number] 00:00:00* Test Item Value Reference Range Interpretation Comme nts 17-HYDROXYPROGESTERONE (test code = 4304) 45 ng/dL 91-[id number] 00:00:00* Test Item Value Reference Range Interpretation Comme nts 17-HYDROXYPROGESTERONE (test code = 4304) 45 ng/dL 48-[id number] 00:00:00* Test Item Value Reference Range Interpretation Comme nts 17-HYDROXYPROGESTERONE (test code = 4304) 45 ng/dL 56-[id number] 00:00:00* Test Item Value Reference Range Interpretation Comme nts 17-HYDROXYPROGESTERONE (test code = 4304) 45 ng/dL Georgi Johnson Yvnxoi16-[id number] 00:00:00* Test Item Value Reference Range Interpretation Comme nts 17-HYDROXYPROGESTERONE (test code = 4304) 45 ng/dL Georgi DelaneyExjpck63-VWSNICMSVBNDNOBQLAR7372-50-81 00:00:00* Test Item Value Reference Range Interpretation Comme nts 17-HYDROXYPROGESTERONE (test code = 4304) 45 ng/dL Georgi DelaneyFSH + LH [id number] 00:00:00* Test Item Value Reference Range Interpretation Comme nts FOLLICLE STIM HORMONE (test code = 2700) 4.3 IU/L LUTEINIZING HORMONE (test co de = 2776) 15.6 IU/L FSH + LH [id number] 00:00:00* Test Item Value Reference Range Interpretation Comme nts FOLLICLE STIM HORMONE (test code = 2700) 4.3 IU/L LUTEINIZING HORMONE (test co de = 2776) 15.6 IU/L [id number] 00:00:00* Test Item Value Reference Range Interpretation Comme nts PROLACTIN (test code = 2800) 17.7 NG/ML [id number] 00:00:00* Test Item Value Reference Range Interpretation Comme nts PROLACTIN (test code = 2800) 17.7 NG/ML TSH, THIRD [id number] 00:00:00* Test Item Value Reference Range Interpretation Comme nts TSH, THIRD GENERATION (test code = 2821) 1.790 UIU/ML TSH, THIRD [id number] 00:00:00* Test Item Value Reference Range Interpretation Comme nts TSH, THIRD GENERATION (test code = 2821) 1.790 UIU/ML TSH, THIRD [id number] 00:00:00* Test Item Value Reference Range Interpretation Comme nts TSH, THIRD GENERATION (test code = 2821) 1.790 UIU/ML FSH + LH [id number] 00:00:00* Test Item Value Reference Range Interpretation Comme nts FOLLICLE STIM HORMONE (test code = 2700) 4.3 IU/L LUTEINIZING HORMONE (test co de = 2776) 15.6 IU/L FSH + LH [id number] 00:00:00* Test Item Value Reference Range Interpretation Comme nts FOLLICLE STIM HORMONE (test code = 2700) 4.3 IU/L LUTEINIZING HORMONE (test co de = 2776) 15.6 IU/L [id number] 00:00:00* Test Item Value Reference Range Interpretation Comme nts PROLACTIN (test code = 2800) 17.7 NG/ML [id number] 00:00:00* Test Item Value Reference Range Interpretation Comme nts PROLACTIN (test code = 2800) 17.7 NG/ML TSH, THIRD [id number] 00:00:00* Test Item Value Reference Range Interpretation Comme nts TSH, THIRD GENERATION (test code = 2821) 1.790 UIU/ML TSH, THIRD [id number] 00:00:00* Test Item Value Reference Range Interpretation Comme nts TSH, THIRD GENERATION (test code = 2821) 1.790 UIU/ML TSH, THIRD [id number] 00:00:00* Test Item Value Reference Range Interpretation Comme nts TSH, THIRD GENERATION (test code = 2821) 1.790 UIU/ML FSH + LH [id number] 00:00:00* Test Item Value Reference Range Interpretation Comme nts FOLLICLE STIM HORMONE (test code = 2700) 4.3 IU/L LUTEINIZING HORMONE (test co de = 2776) 15.6 IU/L Georgi Johnson [id number] 00:00:00* Test Item Value Reference Range Interpretation Comme nts PROLACTIN (test code = 2800) 17.7 NG/ML Georgi TatumH, THIRD [id number] 00:00:00* Test Item Value Reference Range Interpretation Comme nts TSH, THIRD GENERATION (test code = 2821) 1.790 UIU/ML Georgi DelaneyFSH + LH [id number] 00:00:00* Test Item Value Reference Range Interpretation Comme nts FOLLICLE STIM HORMONE (test code = 2700) 4.3 IU/L LUTEINIZING HORMONE (test co de = 2776) 15.6 IU/L Goergi Johnson [id number] 00:00:00* Test Item Value Reference Range Interpretation Comme nts PROLACTIN (test code = 2800) 17.7 NG/ML Georgi DelaneyTSH, THIRD [id number] 00:00:00* Test Item Value Reference Range Interpretation Comme nts TSH, THIRD GENERATION (test code = 2821) 1.790 UIU/ML Georgi DelaneyFSH + LH [id number] 00:00:00* Test Item Value Reference Range Interpretation Comme nts FOLLICLE STIM HORMONE (test code = 2700) 4.3 IU/L LUTEINIZING HORMONE (test co de = 2776) 15.6 IU/L Georgi DelaneyIsuxtoQEPBHWFNK6152-53-10 00:00:00* Test Item Value Reference Range Interpretation Comme nts PROLACTIN (test code = 2800) 17.7 NG/ML Georgi Matthews, THIRD [id number] 00:00:00* Test Item Value Reference Range Interpretation Comme nts TSH, THIRD GENERATION (test code = 2821) 1.790 UIU/ML Georgi TatumH, THIRD [id number] 04:06:28* Test Item Value Reference Range Interpretation Comme nts TSH, THIRD GENERATION (test code = 2821) 4.000 UIU/ML 0.400-4.100 UNLESS OTHERWISE INDICATED, ALL TESTING PERFORMED [facility] [employer] [address] [place] [address] OTM CONSULTANT: EDVIN BENSON M.D. CLIA NUMBER [id number] [facility] [place]. [id number] TSH, THIRD [id number] 00:00:00* Test Item Value Reference Range Interpretation Comme nts TSH, THIRD GENERATION (test code = 2821) 4.000 UIU/ML TSH, THIRD [id number] 00:00:00* Test Item Value Reference Range Interpretation Comme nts TSH, THIRD GENERATION (test code = 2821) 4.000 UIU/ML TSH, THIRD [id number] 00:00:00* Test Item Value Reference Range Interpretation Comme nts TSH, THIRD GENERATION (test code = 2821) 4.000 UIU/ML TSH, THIRD [id number] 00:00:00* Test Item Value Reference Range Interpretation Comme nts TSH, THIRD GENERATION (test code = 2821) 4.000 UIU/ML TSH, THIRD [id number] 00:00:00* Test Item Value Reference Range Interpretation Comme nts TSH, THIRD GENERATION (test code = 2821) 4.000 UIU/ML TSH, THIRD [id number] 00:00:00* Test Item Value Reference Range Interpretation Comme nts TSH, THIRD GENERATION (test code = 2821) 4.000 UIU/ML TSH, THIRD [id number] 00:00:00* Test Item Value Reference Range Interpretation Comme nts TSH, THIRD GENERATION (test code = 2821) 4.000 UIU/ML TSH, THIRD [id number] 00:00:00* Test Item Value Reference Range Interpretation Comme nts TSH, THIRD GENERATION (test code = 2821) 4.000 UIU/ML Georgi Matthews, THIRD [id number] 00:00:00* Test Item Value Reference Range Interpretation Comme nts TSH, THIRD GENERATION (test code = 2821) 4.000 UIU/ML TSH, THIRD [id number] 00:00:00* Test Item Value Reference Range Interpretation Comme nts TSH, THIRD GENERATION (test code = 2821) 4.000 UIU/ML TSH, THIRD [id number] 00:00:00* Test Item Value Reference Range Interpretation Comme nts TSH, THIRD GENERATION (test code = 2821) 4.000 UIU/ML Georgi Matthews THIRD [id number] 00:00:00* Test Item Value Reference Range Interpretation Comme nts TSH, THIRD GENERATION (test code = 2821) 4.000 UIU/ML Georgi Matthews, THIRD [id number] 09:09:54* Test Item Value Reference Range Interpretation Comme nts TSH, THIRD GENERATION (test code = 2821) 9.840 UIU/ML 0.400-4.100 H UNLESS OTHERWISE INDICATED, ALL TESTING PERFORMED [facility] [address] [place] [address] OTM CONSULTANT: EDVIN BENSON M.D. CLIA NUMBER [id number] [facility] [place]. [id number] 00:00:00* Test Item Value Reference Range Interpretation Comme nts TSH, THIRD GENERATION (test code = 2821) 9.840 UIU/ML [id number] 00:00:00* Test Item Value Reference Range Interpretation Comme nts TSH, THIRD GENERATION (test code = 2821) 9.840 UIU/ML [id number] 00:00:00* Test Item Value Reference Range Interpretation Comme nts TSH, THIRD GENERATION (test code = 2821) 9.840 UIU/ML [id number] 00:00:00* Test Item Value Reference Range Interpretation Comme nts TSH, THIRD GENERATION (test code = 2821) 9.840 UIU/ML [id number] 00:00:00* Test Item Value Reference Range Interpretation Comme nts TSH, THIRD GENERATION (test code = 2821) 9.840 UIU/ML [id number] 00:00:00* Test Item Value Reference Range Interpretation Comme nts TSH, THIRD GENERATION (test code = 2821) 9.840 UIU/ML [id number] 00:00:00* Test Item Value Reference Range Interpretation Comme nts TSH, THIRD GENERATION (test code = 2821) 9.840 UIU/ML [id number] 00:00:00* Test Item Value Reference Range Interpretation Comme nts TSH, THIRD GENERATION (test code = 2821) 9.840 UIU/ML [id number] 00:00:00* Test Item Value Reference Range Interpretation Comme nts TSH, THIRD GENERATION (test code = 2821) 9.840 UIU/ML [id number] 00:00:00* Test Item Value Reference Range Interpretation Comme nts TSH, THIRD GENERATION (test code = 2821) 9.840 UIU/ML [id number] 00:00:00* Test Item Value Reference Range Interpretation Comme nts TSH, THIRD GENERATION (test code = 2821) 9.840 UIU/ML [id number] 00:00:00* Test Item Value Reference Range Interpretation Comme nts TSH, THIRD GENERATION (test code = 2821) 9.840 UIU/ML [id number] 00:00:00* Test Item Value Reference Range Interpretation Comme nts TSH, THIRD GENERATION (test code = 2821) 9.840 UIU/ML [id number] 00:00:00* Test Item Value Reference Range Interpretation Comme nts TSH, THIRD GENERATION (test code = 2821) 9.840 UIU/ML [id number] 00:00:00* Test Item Value Reference Range Interpretation Comme nts TSH, THIRD GENERATION (test code = 2821) 9.840 UIU/ML Georgi [id number] 00:00:00* Test Item Value Reference Range Interpretation Comme nts TSH, THIRD GENERATION (test code = 2821) 9.840 UIU/ML Georgi [id number] 00:00:00* Test Item Value Reference Range Interpretation Comme nts TSH, THIRD GENERATION (test code = 2821) 9.840 UIU/ML Georgi TatumH THIRD [id number] 05:03:02* Test Item Value Reference Range Interpretation Comme nts TSH, THIRD GENERATION (test code = 2821) 7.050 UIU/ML 0.400-4.100 H UNLESS OTHERWISE INDICATED, ALL TESTING PERFORMED [facility] [employer] [employer] [address] [place] [address] OTM CONSULTANT: EDVIN BENSON M.D. CLIA NUMBER [id number] [facility] [place]. [id number] 00:00:00* Test Item Value Reference Range Interpretation Comme nts TSH, THIRD GENERATION (test code = 2821) 7.050 UIU/ML [id number] 00:00:00* Test Item Value Reference Range Interpretation Comme nts TSH, THIRD GENERATION (test code = 2821) 7.050 UIU/ML [id number] 00:00:00* Test Item Value Reference Range Interpretation Comme nts TSH, THIRD GENERATION (test code = 2821) 7.050 UIU/ML [id number] 00:00:00* Test Item Value Reference Range Interpretation Comme nts TSH, THIRD GENERATION (test code = 2821) 7.050 UIU/ML [id number] 00:00:00* Test Item Value Reference Range Interpretation Comme nts TSH, THIRD GENERATION (test code = 2821) 7.050 UIU/ML [id number] 00:00:00* Test Item Value Reference Range Interpretation Comme nts TSH, THIRD GENERATION (test code = 2821) 7.050 UIU/ML [id number] 00:00:00* Test Item Value Reference Range Interpretation Comme nts TSH, THIRD GENERATION (test code = 2821) 7.050 UIU/ML Georgi Johnson [id number] 00:00:00* Test Item Value Reference Range Interpretation Comme nts TSH, THIRD GENERATION (test code = 2821) 7.050 UIU/ML [id number] 00:00:00* Test Item Value Reference Range Interpretation Comme nts TSH, THIRD GENERATION (test code = 2821) 7.050 UIU/ML [id number] 00:00:00* Test Item Value Reference Range Interpretation Comme nts TSH, THIRD GENERATION (test code = 2821) 7.050 UIU/ML [id number] 00:00:00* Test Item Value Reference Range Interpretation Comme nts TSH, THIRD GENERATION (test code = 2821) 7.050 UIU/ML [id number] 00:00:00* Test Item Value Reference Range Interpretation Comme nts TSH, THIRD GENERATION (test code = 2821) 7.050 UIU/ML [id number] 00:00:00* Test Item Value Reference Range Interpretation Comme nts TSH, THIRD GENERATION (test code = 2821) 7.050 UIU/ML [id number] 00:00:00* Test Item Value Reference Range Interpretation Comme nts TSH, THIRD GENERATION (test code = 2821) 7.050 UIU/ML [id number] 00:00:00* Test Item Value Reference Range Interpretation Comme nts TSH, THIRD GENERATION (test code = 2821) 7.050 UIU/ML [id number] 00:00:00* Test Item Value Reference Range Interpretation Comme nts TSH, THIRD GENERATION (test code = 2821) 7.050 UIU/ML Georgi Johnson [id number] 00:00:00* Test Item Value Reference Range Interpretation Comme nts TSH, THIRD GENERATION (test code = 2821) 7.050 UIU/ML Georgi Johnson [facility] W/AUTO DIFF WITH [id number] 03:06:39* Test Item Value Reference Range Interpretation [...] 0.00-0.10 ABS NUCLEATED RBCS (test code = 44792) 0.00 K/UL 0.00-0.11 UNLESS OTHER JENSEN INDICATED, ALL TESTING PERFORMED [facility] [employer] [employer] [address] [place] [address] OTM CONSULTANT: EDVIN BENSON M.D. CLIA NUMBER [id number] [place] [id number] CBC W/AUTO [id number] 00:00:00* Test Item Value Reference Range Interpretation [...] ABS NUCLEATED RBCS (test cod e = 63639) 0.00 K/UL CBC W/AUTO [id number] 00:00:00* Test Item Value Reference Range Interpretation [...] ABS NUCLEATED RBCS (test cod e = 11396) 0.00 K/UL CBC W/AUTO [id number] 00:00:00* Test Item Value Reference Range Interpretation [...] ABS NUCLEATED RBCS (test cod e = 57606) 0.00 K/UL CBC W/AUTO [id number] 00:00:00* Test Item Value Reference Range Interpretation [...] ABS NUCLEATED RBCS (test cod e = 75326) 0.00 K/UL CBC W/AUTO [id number] 00:00:00* Test Item Value Reference Range Interpretation [...] ABS NUCLEATED RBCS (test cod e = 55866) 0.00 K/UL CBC W/AUTO [id number] 00:00:00* Test Item Value Reference Range Interpretation [...] ABS NUCLEATED RBCS (test cod e = 00348) 0.00 K/UL CBC W/AUTO [id number] 00:00:00* Test Item Value Reference Range Interpretation [...] ABS NUCLEATED RBCS (test cod e = 58816) 0.00 K/UL CBC W/AUTO [id number] 00:00:00* Test Item Value Reference Range Interpretation [...] ABS NUCLEATED RBCS (test cod e = 65317) 0.00 K/UL CBC W/AUTO [id number] 00:00:00* Test Item Value Reference Range Interpretation [...] ABS NUCLEATED RBCS (test cod e = 13406) 0.00 K/UL CBC W/AUTO [id number] 00:00:00* Test Item Value Reference Range Interpretation [...] ABS NUCLEATED RBCS (test cod e = 36296) 0.00 K/UL CBC W/AUTO [id number] 00:00:00* Test Item Value Reference Range Interpretation [...] ABS NUCLEATED RBCS (test cod e = 85525) 0.00 K/UL CBC W/AUTO [id number] 00:00:00* Test Item Value Reference Range Interpretation [...] ABS NUCLEATED RBCS (test cod e = 40404) 0.00 K/UL CBC W/AUTO [id number] 00:00:00* Test Item Value Reference Range Interpretation [...] ABS NUCLEATED RBCS (test cod e = 23193) 0.00 K/UL CBC W/AUTO [id number] 00:00:00* Test Item Value Reference Range Interpretation [...] ABS NUCLEATED RBCS (test cod e = 23817) 0.00 K/UL CBC W/AUTO [id number] 00:00:00* Test Item Value Reference Range Interpretation [...] ABS NUCLEATED RBCS (test cod e = 57142) 0.00 K/UL Georgi Johnson [facility] W/AUTO [id number] 00:00:00* Test Item Value Reference Range Interpretation [...] ABS NUCLEATED RBCS (test cod e = 30508) 0.00 K/UL Georgi Johnson [employer] W/AUTO [id number] 00:00:00* Test Item Value Reference Range Interpretation [...] ABS NUCLEATED RBCS (test cod e = 56355) 0.00 K/UL Georgi Johnson [employer] W/AUTO DIFF WITH [id number] 10:01:09* Test Item Value Reference Range Interpretation [...] 0.00-0.10 ABS NUCLEATED RBCS (test code = 90420) TEST NOT PERFORMED K/UL 0.00-0.11 COMMENTS (test code = 1016) TEST NOT PERFORMED CBC W/AUTO [id number] 00:00:00* Test Item Value Reference Range Interpretation [...] K/UL ABS NUCLEATED RBCS (test code = 52573) TEST NOT PERFORMED K/UL COMMENTS (test code = 1016) TEST NOT PERFORMED CBC W/AUTO [id number] 00:00:00* Test Item Value Reference Range Interpretation [...] K/UL ABS NUCLEATED RBCS (test code = 21496) TEST NOT PERFORMED K/UL COMMENTS (test code = 1016) TEST NOT PERFORMED CBC W/AUTO [id number] 00:00:00* Test Item Value Reference Range Interpretation [...] K/UL ABS NUCLEATED RBCS (test code = 65379) TEST NOT PERFORMED K/UL COMMENTS (test code = 1016) TEST NOT PERFORMED CBC W/AUTO [id number] 00:00:00* Test Item Value Reference Range Interpretation [...] K/UL ABS NUCLEATED RBCS (test code = 66792) TEST NOT PERFORMED K/UL COMMENTS (test code = 1016) TEST NOT PERFORMED CBC W/AUTO [id number] 00:00:00* Test Item Value Reference Range Interpretation [...] K/UL ABS NUCLEATED RBCS (test code = 71663) TEST NOT PERFORMED K/UL COMMENTS (test code = 1016) TEST NOT PERFORMED CBC W/AUTO [id number] 00:00:00* Test Item Value Reference Range Interpretation [...] K/UL ABS NUCLEATED RBCS (test code = 48911) TEST NOT PERFORMED K/UL COMMENTS (test code = 1016) TEST NOT PERFORMED CBC W/AUTO [id number] 00:00:00* Test Item Value Reference Range Interpretation [...] K/UL ABS NUCLEATED RBCS (test code = 88282) TEST NOT PERFORMED K/UL COMMENTS (test code = 1016) TEST NOT PERFORMED CBC W/AUTO [id number] 00:00:00* Test Item Value Reference Range Interpretation [...] K/UL ABS NUCLEATED RBCS (test code = 42983) TEST NOT PERFORMED K/UL COMMENTS (test code = 1016) TEST NOT PERFORMED CBC W/AUTO [id number] 00:00:00* Test Item Value Reference Range Interpretation [...] K/UL ABS NUCLEATED RBCS (test code = 69854) TEST NOT PERFORMED K/UL COMMENTS (test code = 1016) TEST NOT PERFORMED CBC W/AUTO [id number] 00:00:00* Test Item Value Reference Range Interpretation [...] K/UL ABS NUCLEATED RBCS (test code = 75190) TEST NOT PERFORMED K/UL COMMENTS (test code = 1016) TEST NOT PERFORMED CBC W/AUTO [id number] 00:00:00* Test Item Value Reference Range Interpretation [...] K/UL ABS NUCLEATED RBCS (test code = 70411) TEST NOT PERFORMED K/UL COMMENTS (test code = 1016) TEST NOT PERFORMED [facility] [id number] 00:00:00* Test Item Value Reference Range Interpretation [...] K/UL ABS NUCLEATED RBCS (test code = 73045) TEST NOT PERFORMED K/UL COMMENTS (test code = 1016) TEST NOT PERFORMED CBC W/AUTO [id number] 00:00:00* Test Item Value Reference Range Interpretation [...] K/UL ABS NUCLEATED RBCS (test code = 21654) TEST NOT PERFORMED K/UL COMMENTS (test code = 1016) TEST NOT PERFORMED CBC W/AUTO [id number] 00:00:00* Test Item Value Reference Range Interpretation [...] K/UL ABS NUCLEATED RBCS (test code = 64850) TEST NOT PERFORMED K/UL COMMENTS (test code = 1016) TEST NOT PERFORMED CBC W/AUTO [id number] 00:00:00* Test Item Value Reference Range Interpretation [...] K/UL ABS NUCLEATED RBCS (test code = 43687) TEST NOT PERFORMED K/UL COMMENTS (test code = 1016) TEST NOT PERFORMED CBC W/AUTO [id number] 00:00:00* Test Item Value Reference Range Interpretation [...] K/UL ABS NUCLEATED RBCS (test code = 51413) TEST NOT PERFORMED K/UL COMMENTS (test code = 1016) TEST NOT PERFORMED Georgi DelaneyCBC W/AUTO [id number] 00:00:00* Test Item Value Reference Range Interpretation [...] K/UL ABS NUCLEATED RBCS (test code = 45846) TEST NOT PERFORMED K/UL COMMENTS (test code = 1016) TEST NOT PERFORMED Georgi Matthews, THIRD [id number] 06:29:33* Test Item Value Reference Range Interpretation Comme nts TSH, THIRD GENERATION (test code = 2821) 7.090 UIU/ML 0.400-4.100 H UNLESS OTHERWISE INDICATED, ALL TESTING PERFORMED [facility] [address] [place] [id number] OTM CONSULTANT: EDVIN BENSON M.D. CLIA NUMBER [id number] [facility] [place]. [id number] LIPID [id number] 04:58:53* Test Item Value Reference Range Interpretation [...] SPECIMENS. FOR MOREINFORMATION, SEE CLIENT ANNOUNCEMENT AT [email or web address]-[email or web address] RISK RATIO LDL/HDL (test code = 2238) 3.57 RATIO <3.22 H COMPREHENSIVE METABOLIC [id number] 04:58:53* Test Item Value Reference Range Interpretation Comme nts GLUCOSE (test code = 2217) 85 MG/DL 70-99 BUN (test code = 2208) 12 MG/DL 6-20 CREATININE (test code = 2214) 0.59 MG/DL 0.60-1.30 L eGFR (2020 CKD-EPI) (test code = 56003) 123 ML/MIN/1.73 >60 CALC BUN/CREAT (test code = 2235) 20 RATIO 6-28 SODIUM (test code = 223) 141 MEQ/L 133-146 POTASSIUM (test code = 2228) 4.5 MEQ/L 3.5-5.4 CHLORIDE (test code = 2215) 103 MEQ/L 95-107 CARBON DIOXIDE (test code = 2206) 25 MEQ/L 19-31 CALCIUM (test code = 2209) 9.3 MG/DL 8.5-10.5 PROTEIN, TOTAL (test code = 222) 6.6 G/DL 6.1-8.3 ALBUMIN (test code = [...] code = 2219) 16 U/L 5-40 LIPID [id number] 00:00:00* Test Item Value Reference Range Interpretation Comme nts CHOLESTEROL (test code = 2210) 235 MG/DL TRIGLYCERIDES (test code = 2232) 127 MG/DL HDL CHOLESTEROL (test code = 2220) 46 MG/DL CALC LDL CHOL (test code = 2237) 164 MG/DL RISK RATIO LDL/HDL (test cod e = 2238) 3.57 RATIO LIPID [id number] 00:00:00* Test Item Value Reference Range Interpretation Comme nts CHOLESTEROL (test code = 2210) 235 MG/DL TRIGLYCERIDES (test code = 2232) 127 MG/DL HDL CHOLESTEROL (test code = 2220) 46 MG/DL CALC LDL CHOL (test code = 2237) 164 MG/DL RISK RATIO LDL/HDL (test cod e = 2238) 3.57 RATIO COMPREHENSIVE METABOLIC [id number] 00:00:00* Test Item Value Reference Range Interpretation Comme nts GLUCOSE (test code = 2217) 85 MG/DL BUN (test code = 8) 12 MG/DL CREATININE (test code = 2214) 0.59 MG/DL eGFR (2020 CKD-EPI) (test code = 03708) 123 ML/MIN/1.73 CALC BUN/CREAT (test code = 2235) 20 RATIO SODIUM (test code = 223) 141 MEQ/L POTASSIUM (test code = 2228) 4.5 MEQ/L CHLORIDE (test code = 2215) 103 MEQ/L CARBON DIOXIDE (test code = 2206) 25 MEQ/L CALCIUM (test code = 2209) 9.3 MG/DL PROTEIN, TOTAL (test code = 2228) 6.6 G/DL ALBUMIN (test code = 2201) 4.2 G/DL CALC GLOBULIN (test code = 2240) 2.4 G/DL CALC A/G RATIO (test code = 2234) 1.8 RATIO BILIRUBIN, TOTAL (test code = 2207) <0.2 MG/DL ALKALINE PHOSPHATASE (test code = 2204) 89 U/L AST (test code = 2218) 12 U/L ALT (test code = 2219) 16 U/L COMPREHENSIVE METABOLIC [id number] 00:00:00* Test Item Value Reference Range Interpretation Comme nts GLUCOSE (test code = 2217) 85 MG/DL BUN (test code = 2208) 12 MG/DL CREATININE (test code = 2214) 0.59 MG/DL eGFR (2020 CKD-EPI) (test code = 82948) 123 ML/MIN/1.73 CALC BUN/CREAT (test code = [...] ALT (test code = 2219) 16 U/L [id number] 00:00:00* Test Item Value Reference Range Interpretation Comme nts TSH, THIRD GENERATION (test code = 2821) 7.090 UIU/ML [id number] 00:00:00* Test Item Value Reference Range Interpretation Comme nts TSH, THIRD GENERATION (test code = 2821) 7.090 UIU/ML [id number] 00:00:00* Test Item Value Reference Range Interpretation Comme nts TSH, THIRD GENERATION (test code = 2821) 7.090 UIU/ML LIPID [id number] 00:00:00* Test Item Value Reference Range Interpretation Comme nts CHOLESTEROL (test code = 2210) 235 MG/DL TRIGLYCERIDES (test code = 2232) 127 MG/DL HDL CHOLESTEROL (test code = 2220) 46 MG/DL CALC LDL CHOL (test code = 2237) 164 MG/DL RISK RATIO LDL/HDL (test cod e = 2238) 3.57 RATIO LIPID [id number] 00:00:00* Test Item Value Reference Range Interpretation Comme nts CHOLESTEROL (test code = 2210) 235 MG/DL TRIGLYCERIDES (test code = 2232) 127 MG/DL HDL CHOLESTEROL (test code = 2220) 46 MG/DL CALC LDL CHOL (test code = 2237) 164 MG/DL RISK RATIO LDL/HDL (test cod e = 2238) 3.57 RATIO COMPREHENSIVE METABOLIC [id number] 00:00:00* Test Item Value Reference Range Interpretation Comme nts GLUCOSE (test code = 2217) 85 MG/DL BUN (test code = 2208) 12 MG/DL CREATININE (test code = 2214) 0.59 MG/DL eGFR (2020 CKD-EPI) (test code = 88563) 123 ML/MIN/1.73 CALC BUN/CREAT (test code = [...] code = 2219) 16 U/L COMPREHENSIVE METABOLIC [id number] 00:00:00* Test Item Value Reference Range Interpretation Comme nts GLUCOSE (test code = 2217) 85 MG/DL BUN (test code = 2208) 12 MG/DL CREATININE (test code = 2214) 0.59 MG/DL eGFR (2020 CKD-EPI) (test code = 31075) 123 ML/MIN/1.73 CALC BUN/CREAT (test code = [...] ALT (test code = 2219) 16 U/L [id number] 00:00:00* Test Item Value Reference Range Interpretation Comme nts TSH, THIRD GENERATION (test code = 2821) 7.090 UIU/ML [id number] 00:00:00* Test Item Value Reference Range Interpretation Comme nts TSH, THIRD GENERATION (test code = 2821) 7.090 UIU/ML [id number] 00:00:00* Test Item Value Reference Range Interpretation Comme nts TSH, THIRD GENERATION (test code = 2821) 7.090 UIU/ML LIPID [id number] 00:00:00* Test Item Value Reference Range Interpretation Comme nts CHOLESTEROL (test code = 2210) 235 MG/DL TRIGLYCERIDES (test code = 2232) 127 MG/DL HDL CHOLESTEROL (test code = 2220) 46 MG/DL CALC LDL CHOL (test code = 2237) 164 MG/DL RISK RATIO LDL/HDL (test cod e = 2238) 3.57 RATIO COMPREHENSIVE METABOLIC [id number] 00:00:00* Test Item Value Reference Range Interpretation Comme nts GLUCOSE (test code = 2217) 85 MG/DL BUN (test code = 2208) 12 MG/DL CREATININE (test code = 2214) 0.59 MG/DL eGFR (2020 CKD-EPI) (test code = 63304) 123 ML/MIN/1.73 CALC BUN/CREAT (test code = [...] ALT (test code = 2219) 16 U/L [id number] 00:00:00* Test Item Value Reference Range Interpretation Comme nts TSH, THIRD GENERATION (test code = 2821) 7.090 UIU/ML [id number] 00:00:00* Test Item Value Reference Range Interpretation Comme nts TSH, THIRD GENERATION (test code = 2821) 7.090 UIU/ML LIPID [id number] 00:00:00* Test Item Value Reference Range Interpretation Comme nts CHOLESTEROL (test code = 2210) 235 MG/DL TRIGLYCERIDES (test code = 2232) 127 MG/DL HDL CHOLESTEROL (test code = 2220) 46 MG/DL CALC LDL CHOL (test code = 2237) 164 MG/DL RISK RATIO LDL/HDL (test cod e = 2238) 3.57 RATIO LIPID [id number] 00:00:00* Test Item Value Reference Range Interpretation Comme nts CHOLESTEROL (test code = 2210) 235 MG/DL TRIGLYCERIDES (test code = 2232) 127 MG/DL HDL CHOLESTEROL (test code = 2220) 46 MG/DL CALC LDL CHOL (test code = 2237) 164 MG/DL RISK RATIO LDL/HDL (test cod e = 2238) 3.57 RATIO COMPREHENSIVE METABOLIC [id number] 00:00:00* Test Item Value Reference Range Interpretation Comme nts GLUCOSE (test code = 2217) 85 MG/DL BUN (test code = 2208) 12 MG/DL CREATININE (test code = 2214) 0.59 MG/DL eGFR (2020 CKD-EPI) (test code = 52537) 123 ML/MIN/1.73 CALC BUN/CREAT (test code = [...] code = 2219) 16 U/L COMPREHENSIVE METABOLIC [id number] 00:00:00* Test Item Value Reference Range Interpretation Comme nts GLUCOSE (test code = 2217) 85 MG/DL BUN (test code = 2208) 12 MG/DL CREATININE (test code = 2214) 0.59 MG/DL eGFR (2020 CKD-EPI) (test code = 49536) 123 ML/MIN/1.73 CALC BUN/CREAT (test code = [...] ALT (test code = 2219) 16 U/L [id number] 00:00:00* Test Item Value Reference Range Interpretation Comme nts TSH, THIRD GENERATION (test code = 2821) 7.090 UIU/ML [id number] 00:00:00* Test Item Value Reference Range Interpretation Comme nts TSH, THIRD GENERATION (test code = 2821) 7.090 UIU/ML [id number] 00:00:00* Test Item Value Reference Range Interpretation Comme nts TSH, THIRD GENERATION (test code = 2821) 7.090 UIU/ML LIPID [id number] 00:00:00* Test Item Value Reference Range Interpretation Comme nts CHOLESTEROL (test code = 2210) 235 MG/DL TRIGLYCERIDES (test code = 2232) 127 MG/DL HDL CHOLESTEROL (test code = 2220) 46 MG/DL CALC LDL CHOL (test code = 2237) 164 MG/DL RISK RATIO LDL/HDL (test cod e = 2238) 3.57 RATIO LIPID [id number] 00:00:00* Test Item Value Reference Range Interpretation Comme nts CHOLESTEROL (test code = 2210) 235 MG/DL TRIGLYCERIDES (test code = 2232) 127 MG/DL HDL CHOLESTEROL (test code = 2220) 46 MG/DL CALC LDL CHOL (test code = 2237) 164 MG/DL RISK RATIO LDL/HDL (test cod e = 2238) 3.57 RATIO COMPREHENSIVE METABOLIC [id number] 00:00:00* Test Item Value Reference Range Interpretation Comme nts GLUCOSE (test code = 2217) 85 MG/DL BUN (test code = 2208) 12 MG/DL CREATININE (test code = 2214) 0.59 MG/DL eGFR (2020 CKD-EPI) (test code = 63146) 123 ML/MIN/1.73 CALC BUN/CREAT (test code = [...] code = 2219) 16 U/L COMPREHENSIVE METABOLIC [id number] 00:00:00* Test Item Value Reference Range Interpretation Comme nts GLUCOSE (test code = 2217) 85 MG/DL BUN (test code = 2208) 12 MG/DL CREATININE (test code = 2214) 0.59 MG/DL eGFR (2020 CKD-EPI) (test code = 25313) 123 ML/MIN/1.73 CALC BUN/CREAT (test code = [...] ALT (test code = 2219) 16 U/L [id number] 00:00:00* Test Item Value Reference Range Interpretation Comme nts TSH, THIRD GENERATION (test code = 2821) 7.090 UIU/ML [id number] 00:00:00* Test Item Value Reference Range Interpretation Comme nts TSH, THIRD GENERATION (test code = 2821) 7.090 UIU/ML [id number] 00:00:00* Test Item Value Reference Range Interpretation Comme nts TSH, THIRD GENERATION (test code = 2821) 7.090 UIU/ML LIPID [id number] 00:00:00* Test Item Value Reference Range Interpretation Comme nts CHOLESTEROL (test code = 2210) 235 MG/DL TRIGLYCERIDES (test code = 2232) 127 MG/DL HDL CHOLESTEROL (test code = 2220) 46 MG/DL CALC LDL CHOL (test code = 2237) 164 MG/DL RISK RATIO LDL/HDL (test cod e = 2238) 3.57 RATIO Georgi DelaneyCOMPREHENSIVE METABOLIC [id number] 00:00:00* Test Item Value Reference Range Interpretation Comme nts GLUCOSE (test code = 2217) 85 MG/DL BUN (test code = 2208) 12 MG/DL CREATININE (test code = 2214) 0.59 MG/DL eGFR (2020 CKD-EPI) (test code = 22502) 123 ML/MIN/1.73 CALC BUN/CREAT (test code = [...] ALT (test code = 2219) 16 U/L Georgi [id number] 00:00:00* Test Item Value Reference Range Interpretation Comme nts TSH, THIRD GENERATION (test code = 2821) 7.090 UIU/ML Georgi DelaneyLIPID [id number] 00:00:00* Test Item Value Reference Range Interpretation Comme nts CHOLESTEROL (test code = 2210) 235 MG/DL TRIGLYCERIDES (test code = 2232) 127 MG/DL HDL CHOLESTEROL (test code = 2220) 46 MG/DL CALC LDL CHOL (test code = 2237) 164 MG/DL RISK RATIO LDL/HDL (test cod e = 2238) 3.57 RATIO Georgi DelaneyCOMPREHENSIVE METABOLIC [id number] 00:00:00* Test Item Value Reference Range Interpretation Comme nts GLUCOSE (test code = 2217) 85 MG/DL BUN (test code = 2208) 12 MG/DL CREATININE (test code = 2214) 0.59 MG/DL eGFR (2020 CKD-EPI) (test code = 13549) 123 ML/MIN/1.73 CALC BUN/CREAT (test code = 2235) 20 RATIO SODIUM (test code = 223) 141 MEQ/L POTASSIUM (test code = 2228) [...] ALT (test code = 2219) 16 U/L Georgi [id number] 00:00:00* Test Item Value Reference Range Interpretation Comme nts TSH, THIRD GENERATION (test code = 2821) 7.090 UIU/ML Georgi Johnson AustinLIPID [id number] 00:00:00* Test Item Value Reference Range Interpretation Comme nts CHOLESTEROL (test code = 2210) 235 MG/DL TRIGLYCERIDES (test code = 2232) 127 MG/DL HDL CHOLESTEROL (test code = 2220) 46 MG/DL CALC LDL CHOL (test code = 2237) 164 MG/DL RISK RATIO LDL/HDL (test cod e = 2238) 3.57 RATIO Georgi DelaneyCOMPREHENSIVE METABOLIC [id number] 00:00:00* Test Item Value Reference Range Interpretation Comme nts GLUCOSE (test code = 2217) 85 MG/DL BUN (test code = 2208) 12 MG/DL CREATININE (test code = 2214) 0.59 MG/DL eGFR (2020 CKD-EPI) (test code = 07125) 123 ML/MIN/1.73 CALC BUN/CREAT (test code = 223) 20 RATIO SODIUM (test code = 223) 141 MEQ/L POTASSIUM (test code = 2228) 4.5 MEQ/L CHLORIDE (test code = 2215) 103 MEQ/L CARBON DIOXIDE (test code = 2206) 25 MEQ/L CALCIUM (test code = 2209) 9.3 MG/DL PROTEIN, TOTAL (test code = 2228) 6.6 G/DL ALBUMIN (test code = 220) 4.2 G/DL CALC GLOBULIN (test code = 2240) 2.4 G/DL CALC A/G RATIO (test code = 2234) 1.8 RATIO BILIRUBIN, TOTAL (test code = 7) <0.2 MG/DL ALKALINE PHOSPHATASE (test code = 2203) 89 U/L AST (test code = 2217) 12 U/L ALT (test code = 2218) 16 U/L Georgi [id number] 00:00:00* Test Item Value Reference Range Interpretation Comme nts TSH, THIRD GENERATION (test code = 2821) 7.090 UIU/ML Georgi DelaneyROCIOOPONIN [id number] 21:03:34* Test Item Value Reference Range Interpretation Comments TROPONIN I (test code = 5496463205) 0.000 ng/mL See_Comment [Automated message] The system [...] of biotin. Lab Interpretation (test code = 16697-6) [id number] 20:45:29* Test Item Value Reference Range Interpretation Comments D-DIMER (test code = 0666866042) See_Comment [Automated message] The system which generated [...] a diagnosis. Lab Interpretation (test code = 40162-9) [facility]CBC [facility] [id number] 19:14:30* Test Item Value Reference Range Interpretation Comme nts WBC (test code = 6690-2) See_Comment [Automated [employer]] The system which generated this result transmitted reference range: 4.30 - 11.10 10*3/?L. The reference range was not used to interpret this result as normal/abnormal. RBC (test code = 789-8) See_Comment [Automated [employer]] The system which generated this result transmitted [...] 32.1 g/dL 31.6-35.1 RDW-SD (test code = 58894-4) 42.2 fL 39.0-49.9 RDW-CV (test code = 788-0) 13.1 % 12.0-15.5 PLT (test code = 777-3) See_Comment [Automated messa ge] The system which generated this result transmitted reference range: 166 - 358 10*3/?L. The reference range was not used to interpret this result as normal/abnormal. MPV (test code = 55809-8) 9.6 fL 9.5-12.9 NRBC/100 WBC (test code = 0974120524) See_Comment [Automated Tuniu ssage] The system which generated this result transmitted reference range: 0.0 - 10.0 /100 WBCs. The reference range was not used to interpret this result as normal/abnormal. NRBC x10^3 (test code = 2882674912) <0.01 See_Comment [Automated messa ge] The system which generated this result transmitted reference range: 10*3/?L. The reference range was not used to interpret this result as normal/abnormal. GRAN MAT (NEUT) % (test code = 770-8) 43.7 % IMM GRAN % (test code = 6044746987) 0.50 % LYMPH % (test code = 736-9) 46.2 % MONO % (test code = 5905-5) 6.2 % EOS % (test code = 713-8) 2.8 % BASO % (test code = 706-2) 0.6 % GRAN MAT x10^3(ANC) (test code = 1957160249) 4.77 10*3/uL 1.88-7.09 IMM GRAN x10^3 (test code = 5966921335) 0.05 10*3/uL 0.00-0.06 LYMPH x10^3 (test code = 731-0) 5.05 10*3/uL 1.32-3.29 H MONO x10^3 (test code = 742-7) 0.68 10*3/uL 0.33-0.92 EOS x10^3 (test code = 711-2) 0.31 10*3/uL 0.03-0.39 BASO x10^3 (test code = 704-7) 0.07 10*3/uL 0.01-0.07 Lab Interpretation (test code = 68940-9) [facility] [id number] 18:39:27* Test Item Value Reference Range Interpretation Comments TROPONIN I (test code = 1030892496) 0.001 ng/mL See_Comment [Automated message] The system [...] of biotin. Lab Interpretation (test code = 53164-2) [facility] (11838)2021-07-27 18:29:25* Test Item Value Reference Range Interpretation Comme nts NA (test code = 5160530583) 137 mmol/L 135-145 K (test code = 3129818341) 4.5 mmol/L 3.5-5.0 CL (test code = 9287507554) 104 mmol/L 98-108 CO2 TOTAL (test code = 1244347265) 26 mmol/L 23-31 AGAP (test code = 1282907408) 2-16 BUN (test code = 4202779136) 10 mg/dL 7-23 GLUCOSE (test code = 8206468593) 87 mg/dL 70-110 CREATININE (test code = 4907735629) 0.59 mg/dL 0.50-1.04 TOTAL BILI (test code = 9665803388) 0.4 mg/dL 0.1-1.1 CALCIUM (test code = 0251907025) 9.6 mg/dL 8.6-10.6 T PROTEIN (test code = 9328790858) 7.1 g/dL 6.3-8.2 ALBUMIN (test code = 3595361518) 4.2 g/dL 3.5-5.0 ALK PHOS (test code = 5821803737) 88 U/L 34-122 ALTv (test code = 1742-6) 22 U/L 5-35 AST(SGOT) (test code = 0252590148) 25 U/L 13-40 eGFR (test code = 0731569049) mL/min/1.73m2 MACI (test code = MACI) Association [...] in imaging tests). [facility]:29[facility]* Test Item Value Reference Range Interpretation Comme nts MAGNESIUM (test code = 1779436987) 1.8 mg/dL 1.7-2.4 Lab Interpretation (test cod e = 19637-4) [facility] [id number] 18:28:00* Test Item Value Reference Range Interpretation Comme nts POCT PREG (test code = 1605) negative POCT PREG LOT # (test code = 3575) [id number] POCT PREG TEST DATE ( test code = 3576) 2022-09-12 Lab Interpretation (test cod e = 13433-6) [facility] [id number] 19:26:00* Test Item Value Reference Range Interpretation Comme nts POCT PREG (test code = 1605) Negative On board controls acceptable with C Line (test code = 3574) Yes POCT PREG LOT # (test code = 3575) POCT PREG TEST DATE ( test code = 3576) Lab Interpretation (test cod e = 68645-6) [facility] [id number] 19:26:00* Test Item Value Reference Range Interpretation Comme nts POCT PREG (test code = 1605) Negative On board controls acceptable with C Line (test code = 3574) Yes POCT PREG LOT # (test code = 3575) POCT PREG TEST DATE ( test code = 3576) Lab Interpretation (test cod e = 33155-4) [facility] [id number] 19:26:00* Test Item Value Reference Range Interpretation Comme nts POCT PREG (test code = 1605) Negative On board controls acceptable with C Line (test code = 3574) Yes POCT PREG LOT # (test code = 3575) POCT PREG TEST DATE ( test code = 3576) Lab Interpretation (test cod e = 63553-4) [facility] (HIGH RISK) 2020-12-15 00:00:00* Test Item Value Reference Range Interpretation Comme nts SARS-CoV-2 INTERPRETATION (t est code = 62269) NEGATIVE SOURCE (test code = 29892) NOT SPECIFIED SARS-CoV-2 (COVID-19) by RT-PCR (HIGH RISK)2020-12-15 00:00:00* Test Item Value Reference Range Interpretation Comme nts SARS-CoV-2 INTERPRETATION (t est code = 67458) NEGATIVE SOURCE (test code = 73721) NOT SPECIFIED SARS-CoV-2 (COVID-19) by RT-PCR (HIGH RISK)2020-12-15 00:00:00* Test Item Value Reference Range Interpretation Comme nts SARS-CoV-2 INTERPRETATION (t est code = 28385) NEGATIVE SOURCE (test code = 37062) NOT SPECIFIED SARS-CoV-2 (COVID-19) by RT-PCR (HIGH RISK)2020-12-15 00:00:00* Test Item Value Reference Range Interpretation Comme nts SARS-CoV-2 INTERPRETATION (t est code = 41748) NEGATIVE SOURCE (test code = 52917) NOT SPECIFIED SARS-CoV-2 (COVID-19) by RT-PCR (HIGH RISK)2020-12-15 00:00:00* Test Item Value Reference Range Interpretation Comme nts SARS-CoV-2 INTERPRETATION (t est code = 21730) NEGATIVE SOURCE (test code = 88683) NOT SPECIFIED SARS-CoV-2 (COVID-19) by RT-PCR (HIGH RISK)2020-12-15 00:00:00* Test Item Value Reference Range Interpretation Comme nts SARS-CoV-2 INTERPRETATION (t est code = 25455) NEGATIVE SOURCE (test code = 95832) NOT SPECIFIED SARS-CoV-2 (COVID-19) by RT-PCR (HIGH RISK)2020-12-15 00:00:00* Test Item Value Reference Range Interpretation Comme nts SARS-CoV-2 INTERPRETATION (t est code = 19275) NEGATIVE SOURCE (test code = 98246) NOT SPECIFIED SARS-CoV-2 (COVID-19) by RT-PCR (HIGH RISK)2020-12-15 00:00:00* Test Item Value Reference Range Interpretation Comme nts SARS-CoV-2 INTERPRETATION (t est code = 14727) NEGATIVE SOURCE (test code = 80770) NOT SPECIFIED SARS-CoV-2 (COVID-19) by RT-PCR (HIGH RISK)2020-12-15 00:00:00* Test Item Value Reference Range Interpretation Comme nts SARS-CoV-2 INTERPRETATION (t est code = 31828) NEGATIVE SOURCE (test code = 41364) NOT SPECIFIED SARS-CoV-2 (COVID-19) by RT-PCR (HIGH RISK)2020-12-15 00:00:00* Test Item Value Reference Range Interpretation Comme nts SARS-CoV-2 INTERPRETATION (t est code = 62678) NEGATIVE SOURCE (test code = 34396) NOT SPECIFIED Georgi Johnson MfmksbJGAU-RlW-5 (COVID-19) by RT-PCR (HIGH RISK)2020-12-15 00:00:00* Test Item Value Reference Range Interpretation Comme nts SARS-CoV-2 INTERPRETATION (t est code = 32506) NEGATIVE SOURCE (test code = 48676) NOT SPECIFIED Georgi Johnson LoouxaFNVM-NdF-0 (COVID-19) by RT-PCR (HIGH RISK)2020-12-15 00:00:00* Test Item Value Reference Range Interpretation Comme nts SARS-CoV-2 INTERPRETATION (t est code = 30445) NEGATIVE SOURCE (test code = 94054) NOT SPECIFIED Georgi Johnson AustinPOCT [id number] 20:47:00* Test Item Value Reference Range Interpretation Comme nts POCT PREG (test code = 1605) Negative On board controls acceptable with C Line (test code = 3574) Yes POCT PREG LOT # (test code = 3575) POCT PREG TEST DATE ( test code = 3576) Lab Interpretation (test cod e = 99008-7) [facility] [id number] 20:47:00* Test Item Value Reference Range Interpretation Comme nts POCT PREG (test code = 1605) Negative On board controls acceptable with C Line (test code = 3574) Yes POCT PREG LOT # (test code = 3575) POCT PREG TEST DATE ( test code = 3576) Lab Interpretation (test cod e = 82359-3) [facility] CenterGC AND CHLAMYDIA AMPLIFIED, [id number] 00:00:00* Test Item Value Reference Range Interpretation Comme nts GONORRHEA, TMA (test code = 15072) NEGATIVE CHLAMYDIA, TMA (test code = 18389) NEGATIVE HIV AB/AG COMBO RFLX [id number] 00:00:00* Test Item Value Reference Range Interpretation Comme nts HIV 1/2 4TH GEN, RFLX CONF ( test code = 3514) NON-REACTIVE GC AND CHLAMYDIA AMPLIFIED, [id number] 00:00:00* Test Item Value Reference Range Interpretation Comme nts GONORRHEA, TMA (test code = 74074) NEGATIVE CHLAMYDIA, TMA (test code = 33487) NEGATIVE HIV AB/AG COMBO RFLX [id number] 00:00:00* Test Item Value Reference Range Interpretation Comme nts HIV 1/2 4TH GEN, RFLX CONF ( test code = 3514) NON-REACTIVE ACUTE HEPATITIS [id number] 00:00:00* Test Item Value Reference Range Interpretation Comme nts HEPATITIS A IgM (test code = 08791) NON-REACTIVE HEPATITIS B CORE IgM (test c ode = 4644) NON-REACTIVE HEPATITIS B SURF AG (test co de = 2739) NON-REACTIVE HEPATITIS C ANTIBODY (test c ode = 4675) NON-REACTIVE INTERPRETATION HEPATITIS A: (test code = 2552) (NOTE) INTERPRETATION HEPATITIS B: (test code = 12362) (NOTE) INTERPRETATION HEPATITIS C: (test code = 93619) (NOTE) PAP TEST, THINPREP, [id number] 00:00:00* Test Item Value Reference Range Interpretation Comme nts SOURCE: (test code = 8001) Endocervical SLIDES: (test code = 8011) 1 LMP: (test code = 8021) 10/2020 SPECIMEN ADEQUACY: (test code = 90271) (NOTE) INTERPRETATION: (test code = 88565) NILM/NO EPITH. ABNORMALITY;SEE BELOW COIL WRAPPER: (test code = 8101) RANJEET Riley(ASCP)IAC LOCATION: (test code = 24450) (NOTE) CPT: (test code = 8140) (NOTE) ACUTE HEPATITIS [id number] 00:00:00* Test Item Value Reference Range Interpretation Comme nts HEPATITIS A IgM (test code = 31818) NON-REACTIVE HEPATITIS B CORE IgM (test c ode = 4644) NON-REACTIVE HEPATITIS B SURF AG (test co de = 2739) NON-REACTIVE HEPATITIS C ANTIBODY (test c ode = 4675) NON-REACTIVE INTERPRETATION HEPATITIS A: (test code = 2552) (NOTE) INTERPRETATION HEPATITIS B: (test code = 25659) (NOTE) INTERPRETATION HEPATITIS C: (test code = 28343) (NOTE) PAP TEST, THINPREP, [id number] 00:00:00* Test Item Value Reference Range Interpretation Comme nts SOURCE: (test code = 8001) Endocervical SLIDES: (test code = 8011) 1 LMP: (test code = 8021) 10/2020 SPECIMEN ADEQUACY: (test code = 58048) (NOTE) INTERPRETATION: (test code = 86818) NILM/NO EPITH. ABNORMALITY;SEE BELOW COIL WRAPPER: (test code = 8101) RANJEET Riley(ASCP)IAC LOCATION: (test code = 96580) (NOTE) CPT: (test code = 8140) (NOTE) [id number] 00:00:00* Test Item Value Reference Range Interpretation Comme nts RPR RESULT (test code = 3501) NON-REACTIVE RPR TITER (test code = 3500) NOT INDIC. TITER HPV HIGH RISK WITH GENOTYPE, [id number] 00:00:00* Test Item Value Reference Range Interpretation Comme nts HPV HIGH RISK INTERP (test c ode = 89305) NEGATIVE HPV 16 (test code = 48430) NEGATIVE HPV 18 (test code = 24385) NEGATIVE HPV, HR, OTHER GENOTYPES (te st code = 30472) NEGATIVE [id number] 00:00:00* Test Item Value Reference Range Interpretation Comme nts RPR RESULT (test code = 3501) NON-REACTIVE RPR TITER (test code = 3500) NOT INDIC. TITER [id number] 00:00:00* Test Item Value Reference Range Interpretation Comme nts RPR RESULT (test code = 3501) NON-REACTIVE RPR TITER (test code = 3500) NOT INDIC. TITER HPV HIGH RISK WITH GENOTYPE, [id number] 00:00:00* Test Item Value Reference Range Interpretation Comme nts HPV HIGH RISK INTERP (test c ode = 28036) NEGATIVE HPV 16 (test code = 45748) NEGATIVE HPV 18 (test code = 51983) NEGATIVE HPV, HR, OTHER GENOTYPES (te st code = 50876) NEGATIVE VAGINAL PATHOGENS DNA [id number] 00:00:00* Test Item Value Reference Range Interpretation Comme nts ANNE MARIE SPECIES (test code = 37675) NEGATIVE G. VAGINALIS (test code = 08673) NEGATIVE T. VAGINALIS (test code = 96166) NEGATIVE VAGINAL PATHOGENS DNA [id number] 00:00:00* Test Item Value Reference Range Interpretation Comme nts ANNE MARIE SPECIES (test code = 29377) NEGATIVE G. VAGINALIS (test code = 18426) NEGATIVE T. VAGINALIS (test code = 45655) NEGATIVE HIV AB/AG COMBO RFLX [id number] 00:00:00* Test Item Value Reference Range Interpretation Comme nts HIV 1/2 4TH GEN, RFLX CONF ( test code = 3514) NON-REACTIVE GC AND CHLAMYDIA AMPLIFIED, [id number] 00:00:00* Test Item Value Reference Range Interpretation Comme nts GONORRHEA, TMA (test code = 63242) NEGATIVE CHLAMYDIA, TMA (test code = 30269) NEGATIVE HIV AB/AG COMBO RFLX [id number] 00:00:00* Test Item Value Reference Range Interpretation Comme nts HIV 1/2 4TH GEN, RFLX CONF ( test code = 3514) NON-REACTIVE GC AND CHLAMYDIA AMPLIFIED, [id number] 00:00:00* Test Item Value Reference Range Interpretation Comme nts GONORRHEA, TMA (test code = 84468) NEGATIVE CHLAMYDIA, TMA (test code = 31318) NEGATIVE ACUTE HEPATITIS [id number] 00:00:00* Test Item Value Reference Range Interpretation Comme nts HEPATITIS A IgM (test code = 05593) NON-REACTIVE HEPATITIS B CORE IgM (test c ode = 4644) NON-REACTIVE HEPATITIS B SURF AG (test co de = 2739) NON-REACTIVE HEPATITIS C ANTIBODY (test c ode = 4675) NON-REACTIVE INTERPRETATION HEPATITIS A: (test code = 2552) (NOTE) INTERPRETATION HEPATITIS B: (test code = 79019) (NOTE) INTERPRETATION HEPATITIS C: (test code = 46734) (NOTE) PAP TEST, THINPREP, [id number] 00:00:00* Test Item Value Reference Range Interpretation Comme nts SOURCE: (test code = 8001) Endocervical SLIDES: (test code = 8011) 1 LMP: (test code = 8021) 10/2020 SPECIMEN ADEQUACY: (test code = 51482) (NOTE) INTERPRETATION: (test code = 80766) NILM/NO EPITH. ABNORMALITY;SEE BELOW COIL WRAPPER: (test code = 8101) RANJEET Riley(ASCP)IAC LOCATION: (test code = 45750) (NOTE) CPT: (test code = 8140) (NOTE) ACUTE HEPATITIS [id number] 00:00:00* Test Item Value Reference Range Interpretation Comme nts HEPATITIS A IgM (test code = 04959) NON-REACTIVE HEPATITIS B CORE IgM (test c ode = 4644) NON-REACTIVE HEPATITIS B SURF AG (test co de = 2739) NON-REACTIVE HEPATITIS C ANTIBODY (test c ode = 4665) NON-REACTIVE INTERPRETATION HEPATITIS A: (test code = 2552) (NOTE) INTERPRETATION HEPATITIS B: (test code = 66825) (NOTE) INTERPRETATION HEPATITIS C: (test code = 73398) (NOTE) PAP TEST, THINPREP, [id number] 00:00:00* Test Item Value Reference Range Interpretation Comme nts SOURCE: (test code = 8001) Endocervical SLIDES: (test code = 8011) 1 LMP: (test code = 8021) 10/2020 SPECIMEN ADEQUACY: (test code = 15376) (NOTE) INTERPRETATION: (test code = 52115) NILM/NO EPITH. ABNORMALITY;SEE BELOW COIL WRAPPER: (test code = 8101) RANJEET Riley(ASCP)IAC LOCATION: (test code = 23271) (NOTE) CPT: (test code = 8140) (NOTE) HPV HIGH RISK WITH GENOTYPE, [id number] 00:00:00* Test Item Value Reference Range Interpretation Comme nts HPV HIGH RISK INTERP (test c ode = 05894) NEGATIVE HPV 16 (test code = 02500) NEGATIVE HPV 18 (test code = 08810) NEGATIVE HPV, HR, OTHER GENOTYPES (te st code = 16313) NEGATIVE [id number] 00:00:00* Test Item Value Reference Range Interpretation Comme nts RPR RESULT (test code = 3501) NON-REACTIVE RPR TITER (test code = 3500) NOT INDIC. TITER [id number] 00:00:00* Test Item Value Reference Range Interpretation Comme nts RPR RESULT (test code = 3501) NON-REACTIVE RPR TITER (test code = 3500) NOT INDIC. TITER HPV HIGH RISK WITH GENOTYPE, [id number] 00:00:00* Test Item Value Reference Range Interpretation Comme nts HPV HIGH RISK INTERP (test c ode = 81968) NEGATIVE HPV 16 (test code = 83522) NEGATIVE HPV 18 (test code = 22561) NEGATIVE HPV, HR, OTHER GENOTYPES (te st code = 35259) NEGATIVE [id number] 00:00:00* Test Item Value Reference Range Interpretation Comme nts RPR RESULT (test code = 3501) NON-REACTIVE RPR TITER (test code = 3500) NOT INDIC. TITER VAGINAL PATHOGENS DNA [id number] 00:00:00* Test Item Value Reference Range Interpretation Comme nts ANNE MARIE SPECIES (test code = ) NEGATIVE G. VAGINALIS (test code = 51659) NEGATIVE T. VAGINALIS (test code = 74061) NEGATIVE VAGINAL PATHOGENS DNA [id number] 00:00:00* Test Item Value Reference Range Interpretation Comme nts ANNE MARIE SPECIES (test code = ) NEGATIVE G. VAGINALIS (test code = 05121) NEGATIVE T. VAGINALIS (test code = 62676) NEGATIVE GC AND CHLAMYDIA AMPLIFIED, [id number] 00:00:00* Test Item Value Reference Range Interpretation Comme nts GONORRHEA, TMA (test code = 62287) NEGATIVE CHLAMYDIA, TMA (test code = 34777) NEGATIVE HIV AB/AG COMBO RFLX [id number] 00:00:00* Test Item Value Reference Range Interpretation Comme nts HIV 1/2 4TH GEN, RFLX CONF ( test code = 3514) NON-REACTIVE ACUTE HEPATITIS [id number] 00:00:00* Test Item Value Reference Range Interpretation Comme nts HEPATITIS A IgM (test code = 55629) NON-REACTIVE HEPATITIS B CORE IgM (test c ode = 4644) NON-REACTIVE HEPATITIS B SURF AG (test co de = 2739) NON-REACTIVE HEPATITIS C ANTIBODY (test c ode = 4675) NON-REACTIVE INTERPRETATION HEPATITIS A: (test code = 2552) (NOTE) INTERPRETATION HEPATITIS B: (test code = 58289) (NOTE) INTERPRETATION HEPATITIS C: (test code = 22450) (NOTE) PAP TEST, THINPREP, [id number] 00:00:00* Test Item Value Reference Range Interpretation Comme nts SOURCE: (test code = 8001) Endocervical SLIDES: (test code = 8011) 1 LMP: (test code = 8021) 10/2020 SPECIMEN ADEQUACY: (test code = 10160) (NOTE) INTERPRETATION: (test code = 80628) NILM/NO EPITH. ABNORMALITY;SEE BELOW COIL WRAPPER: (test code = 8101) RANJEET Riley(ASCP)IAC LOCATION: (test code = 50238) (NOTE) CPT: (test code = 8140) (NOTE) HPV HIGH RISK WITH GENOTYPE, [id number] 00:00:00* Test Item Value Reference Range Interpretation Comme nts HPV HIGH RISK INTERP (test c ode = 09329) NEGATIVE HPV 16 (test code = 20284) NEGATIVE HPV 18 (test code = 03271) NEGATIVE HPV, HR, OTHER GENOTYPES (te st code = 26524) NEGATIVE [id number] 00:00:00* Test Item Value Reference Range Interpretation Comme nts RPR RESULT (test code = 3501) NON-REACTIVE RPR TITER (test code = 3500) NOT INDIC. TITER [id number] 00:00:00* Test Item Value Reference Range Interpretation Comme nts RPR RESULT (test code = 3501) NON-REACTIVE RPR TITER (test code = 3500) NOT INDIC. TITER VAGINAL PATHOGENS DNA [id number] 00:00:00* Test Item Value Reference Range Interpretation Comme nts ANNE MARIE SPECIES (test code = 51338) NEGATIVE G. VAGINALIS (test code = 51367) NEGATIVE T. VAGINALIS (test code = 86639) NEGATIVE GC AND CHLAMYDIA AMPLIFIED, [id number] 00:00:00* Test Item Value Reference Range Interpretation Comme nts GONORRHEA, TMA (test code = 38206) NEGATIVE CHLAMYDIA, TMA (test code = 60413) NEGATIVE GC AND CHLAMYDIA AMPLIFIED, [id number] 00:00:00* Test Item Value Reference Range Interpretation Comme nts GONORRHEA, TMA (test code = 13080) NEGATIVE CHLAMYDIA, TMA (test code = 99430) NEGATIVE HIV AB/AG COMBO RFLX [id number] 00:00:00* Test Item Value Reference Range Interpretation Comme nts HIV 1/2 4TH GEN, RFLX CONF ( test code = 3514) NON-REACTIVE HIV AB/AG COMBO RFLX [id number] 00:00:00* Test Item Value Reference Range Interpretation Comme nts HIV 1/2 4TH GEN, RFLX CONF ( test code = 3514) NON-REACTIVE PAP TEST, THINPREP, [id number] 00:00:00* Test Item Value Reference Range Interpretation Comme nts SOURCE: (test code = 8001) Endocervical SLIDES: (test code = 8011) 1 LMP: (test code = 8021) 10/2020 SPECIMEN ADEQUACY: (test code = 61711) (NOTE) INTERPRETATION: (test code = 88622) NILM/NO EPITH. ABNORMALITY;SEE BELOW COIL WRAPPER: (test code = 8101) [facility])IAC LOCATION: (test code = 73871) (NOTE) CPT: (test code = 8140) (NOTE) ACUTE HEPATITIS [id number] 00:00:00* Test Item Value Reference Range Interpretation Comme nts HEPATITIS A IgM (test code = 05083) NON-REACTIVE HEPATITIS B CORE IgM (test c ode = 4644) NON-REACTIVE HEPATITIS B SURF AG (test co de = 2739) NON-REACTIVE HEPATITIS C ANTIBODY (test c ode = 4675) NON-REACTIVE INTERPRETATION HEPATITIS A: (test code = 2552) (NOTE) INTERPRETATION HEPATITIS B: (test code = 86621) (NOTE) INTERPRETATION HEPATITIS C: (test code = 37837) (NOTE) PAP TEST, THINPREP, [id number] 00:00:00* Test Item Value Reference Range Interpretation Comme nts SOURCE: (test code = 8001) Endocervical SLIDES: (test code = 8011) 1 LMP: (test code = 8021) 10/2020 SPECIMEN ADEQUACY: (test code = 83509) (NOTE) INTERPRETATION: (test code = 80203) NILM/NO EPITH. ABNORMALITY;SEE BELOW COIL WRAPPER: (test code = 8101) [facility]: (test code = 82280) (NOTE) CPT: (test code = 8140) (NOTE) ACUTE HEPATITIS [id number] 00:00:00* Test Item Value Reference Range Interpretation Comme nts HEPATITIS A IgM (test code = 39627) NON-REACTIVE HEPATITIS B CORE IgM (test c ode = 4644) NON-REACTIVE HEPATITIS B SURF AG (test co de = 2739) NON-REACTIVE HEPATITIS C ANTIBODY (test c ode = 4675) NON-REACTIVE INTERPRETATION HEPATITIS A: (test code = 2552) (NOTE) INTERPRETATION HEPATITIS B: (test code = 44157) (NOTE) INTERPRETATION HEPATITIS C: (test code = 01818) (NOTE) [id number] 00:00:00* Test Item Value Reference Range Interpretation Comme nts RPR RESULT (test code = 3501) NON-REACTIVE RPR TITER (test code = 3500) NOT INDIC. TITER HPV HIGH RISK WITH GENOTYPE, [id number] 00:00:00* Test Item Value Reference Range Interpretation Comme nts HPV HIGH RISK INTERP (test c ode = 28830) NEGATIVE HPV 16 (test code = 91590) NEGATIVE HPV 18 (test code = 25983) NEGATIVE HPV, HR, OTHER GENOTYPES (te st code = 99266) NEGATIVE [id number] 00:00:00* Test Item Value Reference Range Interpretation Comme nts RPR RESULT (test code = 3501) NON-REACTIVE RPR TITER (test code = 3500) NOT INDIC. TITER [id number] 00:00:00* Test Item Value Reference Range Interpretation Comme nts RPR RESULT (test code = 3501) NON-REACTIVE RPR TITER (test code = 3500) NOT INDIC. TITER HPV HIGH RISK WITH GENOTYPE, [id number] 00:00:00* Test Item Value Reference Range Interpretation Comme nts HPV HIGH RISK INTERP (test c ode = 32750) NEGATIVE HPV 16 (test code = 50486) NEGATIVE HPV 18 (test code = 79227) NEGATIVE HPV, HR, OTHER GENOTYPES (te st code = 45192) NEGATIVE VAGINAL PATHOGENS DNA [id number] 00:00:00* Test Item Value Reference Range Interpretation Comme nts ANNE MARIE SPECIES (test code = 04475) NEGATIVE G. VAGINALIS (test code = 93537) NEGATIVE T. VAGINALIS (test code = 30559) NEGATIVE VAGINAL PATHOGENS DNA [id number] 00:00:00* Test Item Value Reference Range Interpretation Comme nts ANNE MARIE SPECIES (test code = 60186) NEGATIVE G. VAGINALIS (test code = 73847) NEGATIVE T. VAGINALIS (test code = 71433) NEGATIVE GC AND CHLAMYDIA AMPLIFIED, [id number] 00:00:00* Test Item Value Reference Range Interpretation Comme nts GONORRHEA, TMA (test code = 43510) NEGATIVE CHLAMYDIA, TMA (test code = 78789) NEGATIVE HIV AB/AG COMBO RFLX [id number] 00:00:00* Test Item Value Reference Range Interpretation Comme nts HIV 1/2 4TH GEN, RFLX CONF ( test code = 3514) NON-REACTIVE HIV AB/AG COMBO RFLX [id number] 00:00:00* Test Item Value Reference Range Interpretation Comme nts HIV 1/2 4TH GEN, RFLX CONF ( test code = 3514) NON-REACTIVE GC AND CHLAMYDIA AMPLIFIED, [id number] 00:00:00* Test Item Value Reference Range Interpretation Comme nts GONORRHEA, TMA (test code = 13011) NEGATIVE CHLAMYDIA, TMA (test code = 73071) NEGATIVE ACUTE HEPATITIS [id number] 00:00:00* Test Item Value Reference Range Interpretation Comme nts HEPATITIS A IgM (test code = 61346) NON-REACTIVE HEPATITIS B CORE IgM (test c ode = 4644) NON-REACTIVE HEPATITIS B SURF AG (test co de = 2739) NON-REACTIVE HEPATITIS C ANTIBODY (test c ode = 4675) NON-REACTIVE INTERPRETATION HEPATITIS A: (test code = 2552) (NOTE) INTERPRETATION HEPATITIS B: (test code = 44836) (NOTE) INTERPRETATION HEPATITIS C: (test code = 38524) (NOTE) PAP TEST, THINPREP, [id number] 00:00:00* Test Item Value Reference Range Interpretation Comme nts SOURCE: (test code = 8001) Endocervical SLIDES: (test code = 8011) 1 LMP: (test code = 8021) 10/2020 SPECIMEN ADEQUACY: (test code = 93895) (NOTE) INTERPRETATION: (test code = 23438) NILM/NO EPITH. ABNORMALITY;SEE BELOW COIL WRAPPER: (test code = 8101) RANJEET Riley(ASCP)IAC LOCATION: (test code = 45187) (NOTE) CPT: (test code = 8140) (NOTE) ACUTE HEPATITIS [id number] 00:00:00* Test Item Value Reference Range Interpretation Comme nts HEPATITIS A IgM (test code = 76474) NON-REACTIVE HEPATITIS B CORE IgM (test c ode = 4644) NON-REACTIVE HEPATITIS B SURF AG (test co de = 0059) NON-REACTIVE HEPATITIS C ANTIBODY (test c ode = 46) NON-REACTIVE INTERPRETATION HEPATITIS A: (test code = 2552) (NOTE) INTERPRETATION HEPATITIS B: (test code = 20026) (NOTE) INTERPRETATION HEPATITIS C: (test code = 34109) (NOTE) PAP TEST, THINPREP, [id number] 00:00:00* Test Item Value Reference Range Interpretation Comme nts SOURCE: (test code = 8001) Endocervical SLIDES: (test code = 8011) 1 LMP: (test code = 8021) 10/2020 SPECIMEN ADEQUACY: (test code = 92436) (NOTE) INTERPRETATION: (test code = 16761) NILM/NO EPITH. ABNORMALITY;SEE BELOW COIL WRAPPER: (test code = 8101) RANJEET Riley(ASCP)IAC LOCATION: (test code = 48983) (NOTE) CPT: (test code = 8140) (NOTE) HPV HIGH RISK WITH GENOTYPE, [id number] 00:00:00* Test Item Value Reference Range Interpretation Comme nts HPV HIGH RISK INTERP (test c ode = 58036) NEGATIVE HPV 16 (test code = 59805) NEGATIVE HPV 18 (test code = 69543) NEGATIVE HPV, HR, OTHER GENOTYPES (te st code = 10130) NEGATIVE [id number] 00:00:00* Test Item Value Reference Range Interpretation Comme nts RPR RESULT (test code = 3501) NON-REACTIVE RPR TITER (test code = 3500) NOT INDIC. TITER [id number] 00:00:00* Test Item Value Reference Range Interpretation Comme nts RPR RESULT (test code = 3501) NON-REACTIVE RPR TITER (test code = 3500) NOT INDIC. TITER HPV HIGH RISK WITH GENOTYPE, [id number] 00:00:00* Test Item Value Reference Range Interpretation Comme nts HPV HIGH RISK INTERP (test c ode = 63267) NEGATIVE HPV 16 (test code = 85012) NEGATIVE HPV 18 (test code = 83683) NEGATIVE HPV, HR, OTHER GENOTYPES (te st code = 97298) NEGATIVE [id number] 00:00:00* Test Item Value Reference Range Interpretation Comme nts RPR RESULT (test code = 3501) NON-REACTIVE RPR TITER (test code = 3500) NOT INDIC. TITER VAGINAL PATHOGENS DNA [id number] 00:00:00* Test Item Value Reference Range Interpretation Comme nts ANNE MARIE SPECIES (test code = ) NEGATIVE G. VAGINALIS (test code = 45586) NEGATIVE T. VAGINALIS (test code = 51762) NEGATIVE VAGINAL PATHOGENS DNA [id number] 00:00:00* Test Item Value Reference Range Interpretation Comme nts ANNE MARIE SPECIES (test code = 64068) NEGATIVE G. VAGINALIS (test code = 66142) NEGATIVE T. VAGINALIS (test code = 11776) NEGATIVE HIV AB/AG COMBO RFLX [id number] 00:00:00* Test Item Value Reference Range Interpretation Comme nts HIV 1/2 4TH GEN, RFLX CONF ( test code = 3514) NON-REACTIVE Georgi Alex DelaneyGC AND CHLAMYDIA AMPLIFIED, [id number] 00:00:00* Test Item Value Reference Range Interpretation Comme nts GONORRHEA, TMA (test code = 58623) NEGATIVE CHLAMYDIA, TMA (test code = 55450) NEGATIVE Georgi DelaneyPAP TEST, THINPREP, [id number] 00:00:00* Test Item Value Reference Range Interpretation Comme nts SOURCE: (test code = 8001) Endocervical SLIDES: (test code = 8011) 1 LMP: (test code = 8021) 10/2020 SPECIMEN ADEQUACY: (test code = 49216) (NOTE) INTERPRETATION: (test code = 92422) NILM/NO EPITH. ABNORMALITY;SEE BELOW COIL WRAPPER: (test code = 8101) RANJEET Riley(ASCP)IAC LOCATION: (test code = 93060) (NOTE) CPT: (test code = 8140) (NOTE) Georgi DelaneyACUTE HEPATITIS [id number] 00:00:00* Test Item Value Reference Range Interpretation Comme nts HEPATITIS A IgM (test code = 50822) NON-REACTIVE HEPATITIS B CORE IgM (test c ode = 4644) NON-REACTIVE HEPATITIS B SURF AG (test co de = 2309) NON-REACTIVE HEPATITIS C ANTIBODY (test c ode = 4617) NON-REACTIVE INTERPRETATION HEPATITIS A: (test code = 2552) (NOTE) INTERPRETATION HEPATITIS B: (test code = 13353) (NOTE) INTERPRETATION HEPATITIS C: (test code = 81954) (NOTE) Georgi [id number] 00:00:00* Test Item Value Reference Range Interpretation Comme nts RPR RESULT (test code = 3501) NON-REACTIVE RPR TITER (test code = 3500) NOT INDIC. TITER Georgi DelaneyHPV HIGH RISK WITH GENOTYPE, [id number] 00:00:00* Test Item Value Reference Range Interpretation Comme amador HPV HIGH RISK INTERP (test c ode = 53549) NEGATIVE HPV 16 (test code = 43851) NEGATIVE HPV 18 (test code = 95696) NEGATIVE HPV, HR, OTHER GENOTYPES (te st code = 53459) NEGATIVE Georgi DelaneyVAGINAL PATHOGENS DNA [id number] 00:00:00* Test Item Value Reference Range Interpretation Comme amador ANNE MARIE SPECIES (test code = 01593) NEGATIVE G. VAGINALIS (test code = 14543) NEGATIVE T. VAGINALIS (test code = 63985) NEGATIVE Georgi DelaneyHIV AB/AG COMBO RFLX [id number] 00:00:00* Test Item Value Reference Range Interpretation Comme nts HIV 1/2 4TH GEN, RFLX CONF ( test code = 3514) NON-REACTIVE Georgi DelaneyGC AND CHLAMYDIA AMPLIFIED, [id number] 00:00:00* Test Item Value Reference Range Interpretation Comme amador GONORRHEA, TMA (test code = 24948) NEGATIVE CHLAMYDIA, TMA (test code = 86699) NEGATIVE Georgi DelaneyPAP TEST, THINPREP, [id number] 00:00:00* Test Item Value Reference Range Interpretation Comme nts SOURCE: (test code = 8001) Endocervical SLIDES: (test code = 8011) 1 LMP: (test code = 8021) 10/2020 SPECIMEN ADEQUACY: (test code = 24857) (NOTE) INTERPRETATION: (test code = 36810) NILM/NO EPITH. ABNORMALITY;SEE BELOW COIL WRAPPER: (test code = 8101) RANJEET Riley(ASCP)IAC LOCATION: (test code = 90836) (NOTE) CPT: (test code = 8140) (NOTE) Georgi DelaneyACUTE HEPATITIS [id number] 00:00:00* Test Item Value Reference Range Interpretation Comme nts HEPATITIS A IgM (test code = 18856) NON-REACTIVE HEPATITIS B CORE IgM (test c ode = 4644) NON-REACTIVE HEPATITIS B SURF AG (test co de = 2739) NON-REACTIVE HEPATITIS C ANTIBODY (test c ode = 4685) NON-REACTIVE INTERPRETATION HEPATITIS A: (test code = 2552) (NOTE) INTERPRETATION HEPATITIS B: (test code = 73500) (NOTE) INTERPRETATION HEPATITIS C: (test code = 63878) (NOTE) Georgi DelaneyHPV HIGH RISK WITH GENOTYPE, [id number] 00:00:00* Test Item Value Reference Range Interpretation Comme nts HPV HIGH RISK INTERP (test c ode = 28872) NEGATIVE HPV 16 (test code = 23721) NEGATIVE HPV 18 (test code = 77468) NEGATIVE HPV, HR, OTHER GENOTYPES (te st code = 90497) NEGATIVE Georgi [id number] 00:00:00* Test Item Value Reference Range Interpretation Comme nts RPR RESULT (test code = 3501) NON-REACTIVE RPR TITER (test code = 3500) NOT INDIC. TITER Georgi DelaneyVAGINAL PATHOGENS DNA [id number] 00:00:00* Test Item Value Reference Range Interpretation Comme nts ANNE MARIE SPECIES (test code = 51405) NEGATIVE G. VAGINALIS (test code = 79533) NEGATIVE T. VAGINALIS (test code = 64290) NEGATIVE Georgi DelaneyGC AND CHLAMYDIA AMPLIFIED, [id number] 00:00:00* Test Item Value Reference Range Interpretation Comme nts GONORRHEA, TMA (test code = 39503) NEGATIVE CHLAMYDIA, TMA (test code = 68765) NEGATIVE Georgi DelaneyHIV AB/AG COMBO RFLX [id number] 00:00:00* Test Item Value Reference Range Interpretation Comme nts HIV 1/2 4TH GEN, RFLX CONF ( test code = 3514) NON-REACTIVE Georgi DelaneyPAP TEST, THINPREP, [id number] 00:00:00* Test Item Value Reference Range Interpretation Comme nts SOURCE: (test code = 8001) Endocervical SLIDES: (test code = 8011) 1 LMP: (test code = 8021) 10/2020 SPECIMEN ADEQUACY: (test code = 13182) (NOTE) INTERPRETATION: (test code = 64344) NILM/NO EPITH. ABNORMALITY;SEE BELOW COIL WRAPPER: (test code = 8101) RANJEET Riley(ASCP)IAC LOCATION: (test code = 50974) (NOTE) CPT: (test code = 8140) (NOTE) Georgi Johnson RhettACUTE HEPATITIS [id number] 00:00:00* Test Item Value Reference Range Interpretation Comme nts HEPATITIS A IgM (test code = 37334) NON-REACTIVE HEPATITIS B CORE IgM (test c ode = 4644) NON-REACTIVE HEPATITIS B SURF AG (test co de = 2739) NON-REACTIVE HEPATITIS C ANTIBODY (test c ode = 4675) NON-REACTIVE INTERPRETATION HEPATITIS A: (test code = 2552) (NOTE) INTERPRETATION HEPATITIS B: (test code = 64392) (NOTE) INTERPRETATION HEPATITIS C: (test code = 93026) (NOTE) Georgi Johnson [id number] 00:00:00* Test Item Value Reference Range Interpretation Comme nts RPR RESULT (test code = 3501) NON-REACTIVE RPR TITER (test code = 3500) NOT INDIC. TITER Georgi Johnson RhettHPV HIGH RISK WITH GENOTYPE, [id number] 00:00:00* Test Item Value Reference Range Interpretation Comme nts HPV HIGH RISK INTERP (test c ode = 79871) NEGATIVE HPV 16 (test code = 62557) NEGATIVE HPV 18 (test code = 17789) NEGATIVE HPV, HR, OTHER GENOTYPES (te st code = 66327) NEGATIVE Georgi DelaneyVAGINAL PATHOGENS DNA [id number] 00:00:00* Test Item Value Reference Range Interpretation Comme nts ANNE MARIE SPECIES (test code = 64203) NEGATIVE G. VAGINALIS (test code = 22107) NEGATIVE T. VAGINALIS (test code = 27899) NEGATIVE Georgi Delaney Notes Date/Time Note Provider Source 2024-02-05 15:23:20 3317-38-08A61:23:20 Chief ComplaintPatient presents withEstablish CareChanging PCP's due to insurance change.ReferralReferral to Psychiatry, Psychologist, Occupational Medicine for disability. She is currently not on disability, is trying to get on.Referral to Neurology for migraines. Referral to [place]opedic [place] [address]-8Ddgel KcxqEV7709-90-64A73:23:34Nurse NoteTXT1.2.840.588626.1.13.131.2.7 .2.590865|[id number] for patient pebt64334-6Ayytu NoteLNNARRATIVEFormatted C-CDA narrative textMidwest Orthopedic Specialty Hospital[address] [place] [address].[id number] KDT3072-24-69X93:23:341.2.840.1143 50.1.72.3.15|1.2.840.103513.1.13.1 31.2.7.2.727879_[id number] [facility] 2024-01-29 09:41:54 4427-70-91J31:41:54 Letter drafted and sent to pt via [employer]. 48172-0Egwqayemv encounter NhfiXU6578-00-94Q73:42:23Telephone encounter NoteTXT1.2.840.295302.1.13.104.2.7 .2.149060|[id number] for patient pwfi36706-6VbetPPMKAXTBGGHNnjvayqg d C-CDA narrative text[address] Stre[id number] 74DTCHHVZRODZIDTDLNXQNTE0734-13-93 T09:42:231.2.840.121729.1.72.3.15| 1.2.840.866487.1.13.104.2.7.2.7278 [id number] [facility] 2024-01-28 13:50:07 4132-78-29K67:50:07 Spoke with pt and let her know message would be sent to provider requesting the letter. It will be sent to her Mychart once written. 27673-1Bwdwtgrlo encounter AdfjYH1839-76-35I46:51:20Telephone encounter NoteTXT1.2.840.919046.1.13.104.2.7 .2.485606|[id number] for patient yvje70279-1RjggGEVKNGLDBBXNirixjmv d C-CDA narrative text[address] Wx[id number] 43MSGPLYHFHUIVXIEYQBUYYF8825-90-51 T13:51:201.2.840.181879.1.72.3.15| 1.2.840.500048.1.13.104.2.7.2.7278 [id number] [facility] 2024-01-28 12:15:57 0678-60-37V51:15:57 Phani Willoughby is a 33 year old female calling and states she is currently having a migraine and is requesting a letter of diagnoses.Pt is requesting for it to say that she has 3-4 migraines a month, has continuous headaches, and that she goes to hospital for them also.Patient requesting for this to be uploaded to [employer].Please advise [phone] (home) 89533-2Ludxjawyt encounter YedqGP5630-77-81W41:18:33Telephone encounter NoteTXT1.2.840.217664.1.13.104.2.7 .2.110539|[id number] for patient eyyx88033-4SwdpTHIRUGTAUFSAwteaoil d C-CDA narrative [id number] C [id number] 10CZPVXDQIKQJHHMBFCRHYRX3192-55-95 T12:18:331.2.840.812908.1.72.3.15| 1.2.840.419170.1.13.104.2.7.2.7278 [id number] Teresa Bronson [facility] 2024-01-09 11:41:38 0141-31-96G57:41:38 Spoke with patient and informed her that Dorothy Shukla DNP has provided a letter as requested. Patient verbalized understanding and has requested letter to be sent to her email at [email or web address].Patient has no other questions at this time. 22002-9Hpszhkrma encounter HyrzJW3187-04-97B68:43:02Telephone encounter NoteTXT1.2.840.478272.1.13.104.2.7 .2.300246|[id number] for patient uioa82177-2XigwEXEYWYNMQZHYdiuduba d C-CDA narrative [id number] J Findley [id number] 13QUMTNDTWJRHEKCKJNEYMNK5814-76-88 T11:43:021.2.840.941951.1.72.3.15| 1.2.840.416617.1.13.104.2.7.2.7278 [id number] Angie Bauer LVN [facility] 2024-01-08 00:00:00 uyLhnDmTk1TllD6okeArZZ09RYns3z1hUL /ovHTzdnGwZQ8AQJpO2JlsDT0ep9Uu5885 -05-28T00:00:00+ +--- ---------+| Plan Activity | Plan Date |+ + +| Wet mount done results pending | 2020-11-19 || Will wait for results | |+ + +| Screen HIV, chlamydia/ GC. | 2020-11-19 || Sexual hygiene and use of condoms advised. | |+ + +| STD testing done in clinic today results pending | 2020-11-19 |+ + +| r/t her PCOS | 2020-11-19 || No treatment needed at this time | |+ + +| refill Metformin 500 mg ER daily | 2023-12-27 |+ + +| Most likely 2/2 PCOS | 2022-12-11 || did not start Finesteride 5 mg daily | || RTC 1 month for follow-up | |+ + +| Pap and HPV testing done | 2020-11-19 || RTC on annual exam | || SBE monthly | || If 40 or greater, schedule 1-2 year MMG as indicated | || If 50 or greater, schedule colonoscopy or give Heme card. | || Recommend Ca 2+ and Vitamin D if menopausal | || DEXA at 65 and greater | || Immunizations as age indicated | || Annual well adult with PCP as indicated | || STI labs as indicated | || Screening labs as indicated | || Await diagnostic results | |+ + +| will treat with oral Diflucan x1 | 2020-11-19 || Also can use topical anti fungal | || if no improvement will consider longer course of oral anti fungal meds | |+ + +| will give topical mupirocin topical | 2020-11-19 || advised getting new razor | || keep skin clean and dry | |+ + +| CEPHEID pending | 2023-01-16 || will send flonase and cetirizine if cepheid is neg. pt declined bromfed. states | || she has been taking it and it was not helping | || Practice social distancing and home isolation | || Recommend good handwashing and wear wear mask | || Symptomatic treatment includes antipyretics and analgesics for fever, myalgias, | || and headaches. Can take tylenol | || Stay hydrated | || ER precaution | |+ + +| RTO Labs: RAPID STREP + STREP CULTURE | 2020-12-13 || strep vs pharyngitis vs tonsillitis | || Warm salt water gargles and lozenges | || Tylenol/Ibuprofen PRN. Follow directions on med bottle | || monitor for symptoms | || continue to follow local guidelines and recommendations with regarding to | || social distancing and facial covering. | || ER precaution for respiratory distress | |+ + +| refill ProAir sent to pharmacy | 2020-12-13 || ER precaution for resp distress | |+ + +| discussed with patient that her symptoms are unlikely related to pneumonia and | 2023-01-16 || that there is no formal testing for pneumonia | || patient declined cepheid testing | || encouraged supportive treatment | || patient states fwyg-cyf-gvbicfe antihistamines make her feel 'weird'. patient | || currently on hydroxyzine nightly and advice to continue | || push fluids | || proper hand hygiene | || continue to monitor symptoms | || ER for acute respiratory distress, CP | || follow-up in one week if no improvement | |+ + +| Declines hand-off today | 2022-04-27 || f/u BH | |+ + +| Advised to hold phenterine due to side effect of worsening anxiety--- pt | 2021-05-02 || declined. | || Continue therapy and follow up with | || Discussed relaxation techniques, meditation, and physical activity. | || Discussed the importance of stress reduction, proper rest and adequate sleep | || and eat healthy, well-balanced meals. | || Seek out social support | || To ER for SI or HI | |+ + +| continue BH therapy | 2022-09-05 |+ + +| omeprazole 40mg qd | 2021-08-01 || Follow up in 1 week if sxs have not improved for H. pylori testing and GI | || referral | |+ + +| zofran 4mg tid prn | 2021-08-01 || FOllow up PRN | || ER return instructions given | |+ + +| Declines HIV and hepatitis panel | 2021-09-08 || Anticipatory guidance | || RTC 1 year WAE | |+ + +| Lipid panel | 2021-09-08 || RTC 4 wks for results | |+ + +| CBC | 2021-09-08 || RTC 4 wks for results | |+ + +| TSH | 2021-09-08 || RTC 4 wks for results | |+ + +| CMP | 2021-09-08 || await results | || RTC 4 wks for results | |+ + +| Declines influenza | 2021-09-08 |+ + +| refill Levothyroxine 50 mcg | 2023-12-27 || RTC in one month | |+ + +| Patient education | 2021-09-20 || RTC 2 months for management | |+ + +| reviewed and discussed | 2023-06-18 |+ + +| Has not been checking BP at home regularly | 2021-12-22 || Taking psychiatric medications contributing to elevated blood pressure | || BP log to clinic on nurse schedule in 2 weeks. | || Will prescribe medication based on ambulatory BP | || RTC 4 weeks for follow-up | |+ + +| Ibuprofen 800 mg TID PRN | 2021-12-22 || RTC if symptoms worsen and persist | |+ + +| at goal | 2023-12-27 || Not taking chlorthalidone 25 mg daily | || will refill chlorthalidone | || RTC if BP elevates | |+ + +| renetta mancia | 2022-03-02 || declined STD testing | || IUD string check measuring 2 inches. IUD is intact | |+ + +| f/u removal of IUD | 2022-08-30 || f/u insertion of Nexplanon | || RTC for IUD removal and Nexplanon insertion | |+ + +| IUD removal | 2022-09-04 |+ + +| Nexplanon insertion | 2022-09-04 || RTC 3 years for follow-up | |+ + +| See plan above | 2022-09-04 |+ + +| refill Phentermine at 37.5 mg | 2023-12-27 || refill Victoza increase from 1.2 to 1.8 as tolerated. | || Patient currently receiving topiramate from psych | || RTC 1 month for follow-up | |+ + +| OTC hydrocortisone x 14 days | 2022-10-09 || If rash persists, start triamcinolone cream | |+ + +| Barium swallow | 2022-11-08 || Consider ENT | || Discussed aversion and BH | || RTC 1 month for follow-up | |+ + +| Advised to follow up with [facility]- appointment already scheduled | 2022-10-25 |+ + +| Completed Amoxicillin-- | 2022-11-01 || RTC if symptoms return | |+ + +| Follow discharge summary | 2022-11-01 || RTC if symptoms worsen or persist | |+ + +| refill Metformin | 2023-12-27 || RTC 4 months for follow-up | |+ + +| Most likely 2/2 constipation | 2023-10-01 || Miralax | || fiber rich foods | || RTC if symptoms worsen or persist | |+ + +| Rx: Bromphed | 2022-12-16 || Rx: Medrol dose pack. | || Viscous lidocaine for swallowing. | || Reassurance was given | || Likely etiology is viral in nature - no antibiotics are indicated at this time | || Continue supportive care measures | || Cetirizine for congestion | || Increase fluid intake | || Follow up in 3-5 days or sooner if symptoms worsen | |+ + +| increase bromfed dm to 10ml q 6 to 8 hours prn. | 2022-12-22 || warm salt water gargles | |+ + +| BLE | 2023-01-08 || educated pt to elevate feet at rest. | || Drink plenty of fluids and limit salt intake. | || Pt educated to also use compression stockings | || RTO in 1 week if no improvement | |+ + +| referral neurology after patient calls insurance | 2023-01-23 || Start Sumatriptan-Naproxen | || Start propranolol prophylaxis | |+ + +| Chest xray | 2023-01-23 || PFT if chest xray is WNL | || Start Benzonatate | |+ + +| Ibuprofen 800 mg TID PRN | 2023-03-06 |+ + +| Right side | 2023-03-06 || Diagnostic US bilateral | || Bactrim DS BID x 14 days | |+ + +| Nexplanon site | 2023-03-06 || soft tissue US | |+ + +| Start Hydroxyzine 25mg 1-2 tab HS PRN as Rx | 2023-04-22 || Discussed sleep hygiene: | || Maintain a regular sleep schedule, particularly a regular wake-up time in the | || morning | || Avoid caffeinated beverages after lunch | || Avoid alcohol near bedtime (eg, late afternoon and evening) | || Avoid smoking or other nicotine intake, particularly during the evening | || Adjust the bedroom environment as needed to decrease stimuli (eg, reduce | || ambient light, turn off the television or radio) | || Avoid prolonged use of light-emitting screens (laptops, tablets, smartphones, | || ebooks) before bedtime | || Resolve concerns or worries before bedtime | || Exercise regularly for at least 20 minutes, preferably more than four to five | || hours prior to bedtime | || Avoid daytime naps, especially if they are longer than 20 to 30 minutes or | || occur late in the day | || RTO 4 weeks | |+ + +| RTO TSH, T4, T3, CRP, CBC | 2023-05-15 || await results | || RTC 2 weeks for follow-up | |+ + +| Most likely 2/2 dairy | 2023-06-28 || RTC if symptoms worsen or persist | |+ + +| follow-up for evaluation | 2023-06-18 |+ + +| referral audiology | 2023-06-28 |+ + +| referral data mining analyst | 2023-06-28 |+ + +| referral optometry | 2023-09-03 |+ + +| referral thoracic and lumbosacral Xrays | 2023-10-22 || Diclofenac 75 mg ER daily PRN | || Methocarbamol 750 mg TID PRN | || Gabapentin 100 mg TID | || RTC 1 month for follow-up | |+ + +| continue medication(s) as prescribed | 2023-10-25 |+ + +| referral orthopedics | 2023-11-06 || RTC 1 month for follow-up | |+ + +| f/u orthopedics | 2023-11-19 || Solumedrol on nurse schedule | |+ + +| f/u orthopedics | 2023-11-19 || Solumedrol on nurse schedule | |+ + +| refill phentermine 37.5 | 2023-12-21 || VEST BASTER reviewed | |+ + +| Macrobid 100 BID | 2024-01-08 || UA, urine cx | || RTC if symptoms persist or worsen | |+ + +1877 6-5Plan of TreatmentLNCARE PLANTXTSFA|[id number]|2.16.840.1. 262067.10.20.22.2.10AVAvailable for patient hgicZfkgjlcVeusopaawDSRUk09 Section NarrativeNARRATIVEFormatted C-CDA narrative textSFAStelizabeth Keller [facility]2024-06-03T00:00:00 Georgi Keller [facility] 2024-01-04 10:52:40 9653-44-96R34:52:40 Provided patient with Feedback/advisement from Dorothy Shukla DNP. Patient requesting to send a request back to Provider; Patient states that she is not asking for disability support from Provider, she is asking for a letter of diagnosis to submit to the blacking wheel tender that is helping her to file disability. 83165-3Nfpsuytvf encounter TzvyCI8741-28-29P38:55:32Telephone encounter NoteTXT1.2.840.075758.1.13.104.2.7 .2.936926|[id number] for patient axqp91753-7HdpfZYYQRORSBWAFvrcdgro d C-CDA narrative [id number] J Findley [address] Qi[id number] 26QGNTSYNOJBIXMRTMXDNGIW3340-93-69 T10:55:321.2.840.069984.1.72.3.15| 1.2.840.612080.1.13.104.2.7.2.7278 [id number] Angie Bauer [facility] 2024-01-04 10:47:45 2318-88-32N16:47:45 Per Dorothy Shukla DNP"Our department will not support for disability.She should contact PCP." 54923-4Pqklqysfb encounter SweiWG2868-52-82U41:48:04Telephone encounter NoteTXT1.2.840.774935.1.13.104.2.7 .2.819551|[id number] for patient wcqd94116-4SctsYRCHLKAFQJTAdsktbsy d C-CDA narrative text[id number] 88EDHMOIHIBASSQPWUTRNCOH0443-29-75 T10:48:041.2.840.135880.1.72.3.15| 1.2.840.891405.1.13.104.2.7.2.7278 [id number] [facility] 2024-01-01 14:18:58 7327-50-66J96:18:58 Patient requesting for Dorothy Shukla DNP to write a letter of diagnosis, stating that she has degenerative disc disease and osteoarthritis of her lumbar region. 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 Patient verbalized understanding and states that she will be losing her medical insurance in under a week. 95070-4Mqfegbydl encounter GjmpTE2331-09-18G78:23:36Telephone encounter NoteTXT1.2.840.628040.1.13.104.2.7 .2.027707|[id number] for patient nmav01628-3BaclEHRMAULRXPZYmexdqum d C-CDA narrative [id number] J Findley [id number] 81CMKPCDAANMNFYUDRBUTFJM2927-69-92 T14:23:361.2.840.982507.1.72.3.15| 1.2.840.829911.1.13.104.2.7.2.7278 [id number] Angie Bauer APPEALS WRITER [facility] 2023-12-31 17:45:49 4818-72-20F52:45:49 Phani Willoughby is a 33 year old femalePt called requesting to speak with clinic on getting disability forms submitted with diagnosis completed with clinic. Please advise. 70578-9Mjcjbgrbp encounter BkliHD6650-02-17X89:46:37Telephone encounter NoteTXT1.2.840.999717.1.13.104.2.7 .2.649384|[id number] for patient uvkp92422-3IcmbFUQMOSEBGKTVeheihbc d C-CDA narrative [id number] I [id number] 79OBKANUEYNWKFSMKTGYLBWY2572-04-00 T17:46:371.2.840.979254.1.72.3.15| 1.2.840.231679.1.13.104.2.7.2.7278 [id number] Kuldip Warner [facility] 2023-12-31 17:43:38 6432-15-16D07:43:38 Phani Willoughby is a 33 year old femalePt called regarding wanting to speak with group on how she will be able to file medical notes with diagnosis from group for her to file for disability. Please advise. 10285-4Vroepasaw encounter LledRZ7246-46-13G21:45:14Telephone encounter NoteTXT1.2.840.304769.1.13.104.2.7 .2.749575|[id number] for patient ipdv83780-2BhmgNKMQUMIIWNAFnklmdni d C-CDA narrative qrww06880857Qhwedzga I [address] Gy[id number] 49GSGBOQTEXSEMROASADOLET7373-32-60 T17:45:141.2.840.865538.1.72.3.15| 1.2.840.306941.1.13.104.2.7.2.7278 [id number] Kuldip Warner [facility] 2023-12-31 11:09:26 0696-52-35D21:09:26 [facility] Specialty PharmacyTherapy Tucker Willoughby is a 33 year old y/o /White female patient referred to the [facility] Specialty Pharm[facility] for management of Ubrelvy/Nurtec and appropriateness of therapy which is being used to treat the diagnosis of Acute treatment of migraines.Phani Willoughby is Experienced to therapy .The stage of Phani Willoughby active disease is Severe Severe "constantly having headaches" but with 2 [...] towards goalsThe current specialty medication regimen is: Ubrelvy 100mg po prn migraine and Nurtec 75mg po prn migraine. Doesn't take both at same time. Will alternate as both medications "sometimes work and sometimes doesn't". Will usually take if pain >7/10. Denies side effects including GI upset and drowsiness.Concurrent Neurology medications:Topiramate 100mg po BID - denies fatigue, memory impairment, kidney stones.Propranolol 40mg po qAM. BP/Pulse wnl. Takes mid-day.Gabapentin 100mg po TID for back painHydroxyzine 100mg po prn insomnia and/or anxietyVenlafaxine XR 75mg po qAM for mood.Ondansetron 4mg po q8hrs prn n/vMethocarbamol 750mg po TID prn spasmsPhentermine 37.5mg po qAM for wt lossWhile speaking with the patient, the Specialty Pharmacist has reviewed and updated the:medication list and allergy listPatient's most recent discharge from a hospital admission related to their specialty condition: The patient was last discharged from the hospital on 10/16/23 - migraine.The [facility] Specialty Pharmacist has reviewed:The H&P, treatment recommendations, and all provider encounters relevant to the management of Acute treatment of migraines and Prevention of migraines.Comorbid conditions: No contraindication to therapyRisk factors identified related to specialty medication therapy and condition: OtherPertinent labs reviewed: Complete metabolic panel Scr, LFTs wnl - rug-Drug Interactions: There are no significant drug-drug interactions-Weight:Wt Readings from Last 1 Encounters:12/26/23 119.7 kg (264 lb)Lab ResultsComponent Value Date/TimeBUN 10 07/27/2021 12:06 PMCREAT 0.59 07/27/2021 12:06 PMEGFR 118.1 07/27/2021 12:06 PMLab ResultsComponent Value Date/TimeAST 25 07/27/2021 12:06 PMALT 22 07/27/2021 12:06 PMBILIT 0.4 07/27/2021 12:06 PMALKPHOS 88 07/27/2021 12:06 PMLab ResultsComponent Value Date/TimeWBC 10.93 07/27/2021 12:06 PMHGB 13.5 07/27/2021 12:06 PMPLT 268 07/27/2021 12:06 PMAfter review, the prescribed medication is clinically appropriate.After counseling and education, utilized teach-back method to ensure patient comprehension on injection technique.Home Delivery Process: If the patient chooses to have the medications delivered home, someone needs to be at home to receive the packaged medication. The medication can only sit in the ice box for 6 to 8 hours, and then it needs to be refrigerated.[address] [address] [facility] [address]-Iksxuk-yy: Provided patient with PharmD contact information to call if they have any questions.Future AppointmentsProvider Department Dept Phone09/18/2024 11:00 AM Afia Beaulieu FNP [facility] Willie Patrick [facility] [phone] comprehensive Welcome Packet is accessible to all patients via the [facility] Pharm[facility]'s website. For patients who may not have internet access, a printed copy is included with their medication shipment or provided during medication pick-up.Thank you,Navneet Dang, [facility] Specialty Pharmacy 33676-3Daolclzgu encounter ImzpUF3170-33-29V92:16:36Telephone encounter NoteTXT1.2.840.404283.1.13.104.2.7 .2.120433|[id number] for patient znga96450-1XsucZJJQCBICZYXIwpqrpix d C-CDA narrative [id number] L Papadatos [id number] 23CUIATDVEXMTYTFNHBOZRPK3780-08-73 T11:16:361.2.840.970767.1.72.3.15| 1.2.840.357536.1.13.104.2.7.2.7278 [id number] Navneet Dang [facility] 2023-12-27 00:00:00 fQHUbkUQ0p4NikbY8tWMhap6esuD/2dPTr Fy9zB97k161hBsLEQHn8AqksyKw/2F54862023T00:00:00+ +--- ---------+| Plan Activity | Plan Date |+ + +| Wet mount done results pending | 2020-11-19 || Will wait for results | |+ + +| Screen HIV, chlamydia/ GC. | 2020-11-19 || Sexual hygiene and use of condoms advised. | |+ + +| STD testing done in clinic today results pending | 2020-11-19 |+ + +| r/t her PCOS | 2020-11-19 || No treatment needed at this time | |+ + +| refill Metformin 500 mg ER daily | 2023-12-27 |+ + +| Most likely 2/2 PCOS | 2022-12-11 || did not start Finesteride 5 mg daily | || RTC 1 month for follow-up | |+ + +| Pap and HPV testing done | 2020-11-19 || RTC on annual exam | || SBE monthly | || If 40 or greater, schedule 1-2 year MMG as indicated | || If 50 or greater, schedule colonoscopy or give Heme card. | || Recommend Ca 2+ and Vitamin D if menopausal | || DEXA at 65 and greater | || Immunizations as age indicated | || Annual well adult with PCP as indicated | || STI labs as indicated | || Screening labs as indicated | || Await diagnostic results | |+ + +| will treat with oral Diflucan x1 | 2020-11-19 || Also can use topical anti fungal | || if no improvement will consider longer course of oral anti fungal meds | |+ + +| will give topical mupirocin topical | 2020-11-19 || advised getting new razor | || keep skin clean and dry | |+ + +| CEPHEID pending | 2023-01-16 || will send flonase and cetirizine if cepheid is neg. pt declined bromfed. states | || she has been taking it and it was not helping | || Practice social distancing and home isolation | || Recommend good handwashing and wear wear mask | || Symptomatic treatment includes antipyretics and analgesics for fever, myalgias, | || and headaches. Can take tylenol | || Stay hydrated | || ER precaution | |+ + +| RTO Labs: RAPID STREP + STREP CULTURE | 2020-12-13 || strep vs pharyngitis vs tonsillitis | || Warm salt water gargles and lozenges | || Tylenol/Ibuprofen PRN. Follow directions on med bottle | || monitor for symptoms | || continue to follow local guidelines and recommendations with regarding to | || social distancing and facial covering. | || ER precaution for respiratory distress | |+ + +| refill ProAir sent to pharmacy | 2020-12-13 || ER precaution for resp distress | |+ + +| discussed with patient that her symptoms are unlikely related to pneumonia and | 2023-01-16 || that there is no formal testing for pneumonia | || patient declined cepheid testing | || encouraged supportive treatment | || patient states swpf-flj-yrlsfhm antihistamines make her feel 'weird'. patient | || currently on hydroxyzine nightly and advice to continue | || push fluids | || proper hand hygiene | || continue to monitor symptoms | || ER for acute respiratory distress, CP | || follow-up in one week if no improvement | |+ + +| Declines hand-off today | 2022-04-27 || f/u BH | |+ + +| Advised to hold phenterine due to side effect of worsening anxiety--- pt | 2021-05-02 || declined. | || Continue therapy and follow up with | || Discussed relaxation techniques, meditation, and physical activity. | || Discussed the importance of stress reduction, proper rest and adequate sleep | || and eat healthy, well-balanced meals. | || Seek out social support | || To ER for SI or HI | |+ + +| continue BH therapy | 2022-09-05 |+ + +| omeprazole 40mg qd | 2021-08-01 || Follow up in 1 week if sxs have not improved for H. pylori testing and GI | || referral | |+ + +| zofran 4mg tid prn | 2021-08-01 || FOllow up PRN | || ER return instructions given | |+ + +| Declines HIV and hepatitis panel | 2021-09-08 || Anticipatory guidance | || RTC 1 year WAE | |+ + +| Lipid panel | 2021-09-08 || RTC 4 wks for results | |+ + +| CBC | 2021-09-08 || RTC 4 wks for results | |+ + +| TSH | 2021-09-08 || RTC 4 wks for results | |+ + +| CMP | 2021-09-08 || await results | || RTC 4 wks for results | |+ + +| Declines influenza | 2021-09-08 |+ + +| refill Levothyroxine 50 mcg | 2023-12-27 || RTC in one month | |+ + +| Patient education | 2021-09-20 || RTC 2 months for management | |+ + +| reviewed and discussed | 2023-06-18 |+ + +| Has not been checking BP at home regularly | 2021-12-22 || Taking psychiatric medications contributing to elevated blood pressure | || BP log to clinic on nurse schedule in 2 weeks. | || Will prescribe medication based on ambulatory BP | || RTC 4 weeks for follow-up | |+ + +| Ibuprofen 800 mg TID PRN | 2021-12-22 || RTC if symptoms worsen and persist | |+ + +| at goal | 2023-12-27 || Not taking chlorthalidone 25 mg daily | || will refill chlorthalidone | || RTC if BP elevates | |+ + +| renetta mancia | 2022-03-02 || declined STD testing | || IUD string check measuring 2 inches. IUD is intact | |+ + +| f/u removal of IUD | 2022-08-30 || f/u insertion of Nexplanon | || RTC for IUD removal and Nexplanon insertion | |+ + +| IUD removal | 2022-09-04 |+ + +| Nexplanon insertion | 2022-09-04 || RTC 3 years for follow-up | |+ + +| See plan above | 2022-09-04 |+ + +| refill Phentermine at 37.5 mg | 2023-12-27 || refill Victoza increase from 1.2 to 1.8 as tolerated. | || Patient currently receiving topiramate from psych | || RTC 1 month for follow-up | |+ + +| OTC hydrocortisone x 14 days | 2022-10-09 || If rash persists, start triamcinolone cream | |+ + +| Barium swallow | 2022-11-08 || Consider ENT | || Discussed aversion and BH | || RTC 1 month for follow-up | |+ + +| Advised to follow up with [facility]- appointment already scheduled | 2022-10-25 |+ + +| Completed Amoxicillin-- | 2022-11-01 || RTC if symptoms return | |+ + +| Follow discharge summary | 2022-11-01 || RTC if symptoms worsen or persist | |+ + +| refill Metformin | 2023-12-27 || RTC 4 months for follow-up | |+ + +| Most likely 2/2 constipation | 2023-10-01 || Miralax | || fiber rich foods | || RTC if symptoms worsen or persist | |+ + +| Rx: Bromphed | 2022-12-16 || Rx: Medrol dose pack. | || Viscous lidocaine for swallowing. | || Reassurance was given | || Likely etiology is viral in nature - no antibiotics are indicated at this time | || Continue supportive care measures | || Cetirizine for congestion | || Increase fluid intake | || Follow up in 3-5 days or sooner if symptoms worsen | |+ + +| increase bromfed dm to 10ml q 6 to 8 hours prn. | 2022-12-22 || warm salt water gargles | |+ + +| BLE | 2023-01-08 || educated pt to elevate feet at rest. | || Drink plenty of fluids and limit salt intake. | || Pt educated to also use compression stockings | || RTO in 1 week if no improvement | |+ + +| referral neurology after patient calls insurance | 2023-01-23 || Start Sumatriptan-Naproxen | || Start propranolol prophylaxis | |+ + +| Chest xray | 2023-01-23 || PFT if chest xray is WNL | || Start Benzonatate | |+ + +| Ibuprofen 800 mg TID PRN | 2023-03-06 |+ + +| Right side | 2023-03-06 || Diagnostic US bilateral | || Bactrim DS BID x 14 days | |+ + +| Nexplanon site | 2023-03-06 || soft tissue US | |+ + +| Start Hydroxyzine 25mg 1-2 tab HS PRN as Rx | 2023-04-22 || Discussed sleep hygiene: | || Maintain a regular sleep schedule, particularly a regular wake-up time in the | || morning | || Avoid caffeinated beverages after lunch | || Avoid alcohol near bedtime (eg, late afternoon and evening) | || Avoid smoking or other nicotine intake, particularly during the evening | || Adjust the bedroom environment as needed to decrease stimuli (eg, reduce | || ambient light, turn off the television or radio) | || Avoid prolonged use of light-emitting screens (laptops, tablets, smartphones, | || ebooks) before bedtime | || Resolve concerns or worries before bedtime | || Exercise regularly for at least 20 minutes, preferably more than four to five | || hours prior to bedtime | || Avoid daytime naps, especially if they are longer than 20 to 30 minutes or | || occur late in the day | || RTO 4 weeks | |+ + +| RTO TSH, T4, T3, CRP, CBC | 2023-05-15 || await results | || RTC 2 weeks for follow-up | |+ + +| Most likely 2/2 dairy | 2023-06-28 || RTC if symptoms worsen or persist | |+ + +| follow-up for evaluation | 2023-06-18 |+ + +| referral audiology | 2023-06-28 |+ + +| referral data mining analyst | 2023-06-28 |+ + +| referral optometry | 2023-09-03 |+ + +| referral thoracic and lumbosacral Xrays | 2023-10-22 || Diclofenac 75 mg ER daily PRN | || Methocarbamol 750 mg TID PRN | || Gabapentin 100 mg TID | || RTC 1 month for follow-up | |+ + +| continue medication(s) as prescribed | 2023-10-25 |+ + +| referral orthopedics | 2023-11-06 || RTC 1 month for follow-up | |+ + +| f/u orthopedics | 2023-11-19 || Solumedrol on nurse schedule | |+ + +| f/u orthopedics | 2023-11-19 || Solumedrol on nurse schedule | |+ + +| refill phentermine 37.5 | 2023-12-21 || VEST BASTER reviewed | |+ + +1877 6-5Plan of TreatmentLNCARE PLANTST. LUKE'S HOSPITALFA|[facility]-[id number]. [id number] for patient yvttAxsqqgeJecurccnsRBZXs60 Section NarrativeNARRATIVEFormatted C-CDA narrative textSRoosevelt General Hospitalelizabeth Keller [facility] [place]2024-05-16T00:00:00 Georgi JohnsonNatalie [facility] [place] 2023-12-21 00:00:00 Reinier/x8jtIGy/U0vk13vgegeKYgker/PdxF iB8hXCqwF5/upVMOcmpFNb6tM+[id number]:00:00+ +--- ---------+| Plan Activity | Plan Date |+ + +| Wet mount done results pending | 2020-11-19 || Will wait for results | |+ + +| Screen HIV, chlamydia/ GC. | 2020-11-19 || Sexual hygiene and use of condoms advised. | |+ + +| STD testing done in clinic today results pending | 2020-11-19 |+ + +| r/t her PCOS | 2020-11-19 || No treatment needed at this time | |+ + +| refill Metformin 500 mg ER daily | 2022-06-08 || RTC 1 month for follow-up | |+ + +| Most likely 2/2 PCOS | 2022-12-11 || did not start Finesteride 5 mg daily | || RTC 1 month for follow-up | |+ + +| Pap and HPV testing done | 2020-11-19 || RTC on annual exam | || SBE monthly | || If 40 or greater, schedule 1-2 year MMG as indicated | || If 50 or greater, schedule colonoscopy or give Heme card. | || Recommend Ca 2+ and Vitamin D if menopausal | || DEXA at 65 and greater | || Immunizations as age indicated | || Annual well adult with PCP as indicated | || STI labs as indicated | || Screening labs as indicated | || Await diagnostic results | |+ + +| will treat with oral Diflucan x1 | 2020-11-19 || Also can use topical anti fungal | || if no improvement will consider longer course of oral anti fungal meds | |+ + +| will give topical mupirocin topical | 2020-11-19 || advised getting new razor | || keep skin clean and dry | |+ + +| CEPHEID pending | 2023-01-16 || will send flonase and cetirizine if cepheid is neg. pt declined bromfed. states | || she has been taking it and it was not helping | || Practice social distancing and home isolation | || Recommend good handwashing and wear wear mask | || Symptomatic treatment includes antipyretics and analgesics for fever, myalgias, | || and headaches. Can take tylenol | || Stay hydrated | || ER precaution | |+ + +| RTO Labs: RAPID STREP + STREP CULTURE | 2020-12-13 || strep vs pharyngitis vs tonsillitis | || Warm salt water gargles and lozenges | || Tylenol/Ibuprofen PRN. Follow directions on med bottle | || monitor for symptoms | || continue to follow local guidelines and recommendations with regarding to | || social distancing and facial covering. | || ER precaution for respiratory distress | |+ + +| refill ProAir sent to pharmacy | 2020-12-13 || ER precaution for resp distress | |+ + +| discussed with patient that her symptoms are unlikely related to pneumonia and | 2023-01-16 || that there is no formal testing for pneumonia | || patient declined cepheid testing | || encouraged supportive treatment | || patient states mdvz-qvu-yrtesql antihistamines make her feel 'weird'. patient | || currently on hydroxyzine nightly and advice to continue | || push fluids | || proper hand hygiene | || continue to monitor symptoms | || ER for acute respiratory distress, CP | || follow-up in one week if no improvement | |+ + +| Declines hand-off today | 2022-04-27 || f/u BH | |+ + +| Advised to hold phenterine due to side effect of worsening anxiety--- pt | 2021-05-02 || declined. | || Continue therapy and follow up with | || Discussed relaxation techniques, meditation, and physical activity. | || Discussed the importance of stress reduction, proper rest and adequate sleep | || and eat healthy, well-balanced meals. | || Seek out social support | || To ER for SI or HI | |+ + +| continue BH therapy | 2022-09-05 |+ + +| omeprazole 40mg qd | 2021-08-01 || Follow up in 1 week if sxs have not improved for H. pylori testing and GI | || referral | |+ + +| zofran 4mg tid prn | 2021-08-01 || FOllow up PRN | || ER return instructions given | |+ + +| Declines HIV and hepatitis panel | 2021-09-08 || Anticipatory guidance | || RTC 1 year WAE | |+ + +| Lipid panel | 2021-09-08 || RTC 4 wks for results | |+ + +| CBC | 2021-09-08 || RTC 4 wks for results | |+ + +| TSH | 2021-09-08 || RTC 4 wks for results | |+ + +| CMP | 2021-09-08 || await results | || RTC 4 wks for results | |+ + +| Declines influenza | 2021-09-08 |+ + +| rx Levothyroxine 50 mcg | 2023-11-19 || RTC in one month | |+ + +| Patient education | 2021-09-20 || RTC 2 months for management | |+ + +| reviewed and discussed | 2023-06-18 |+ + +| Has not been checking BP at home regularly | 2021-12-22 || Taking psychiatric medications contributing to elevated blood pressure | || BP log to clinic on nurse schedule in 2 weeks. | || Will prescribe medication based on ambulatory BP | || RTC 4 weeks for follow-up | |+ + +| Ibuprofen 800 mg TID PRN | 2021-12-22 || RTC if symptoms worsen and persist | |+ + +| at goal | 2023-05-30 || Not taking chlorthalidone 25 mg daily | || RTC if BP elevates | |+ + +| wet mount pending | 2022-03-02 || declined STD testing | || IUD string check measuring 2 inches. IUD is intact | |+ + +| f/u removal of IUD | 2022-08-30 || f/u insertion of Nexplanon | || RTC for IUD removal and Nexplanon insertion | |+ + +| IUD removal | 2022-09-04 |+ + +| Nexplanon insertion | 2022-09-04 || RTC 3 years for follow-up | |+ + +| See plan above | 2022-09-04 |+ + +| refill Phentermine at 37.5 mg | 2023-10-25 || continue Victoza increase from 1.2 to 1.8 as tolerated. | || Patient currently receiving topiramate from psych | || RTC 1 month for follow-up | |+ + +| OTC hydrocortisone x 14 days | 2022-10-09 || If rash persists, start triamcinolone cream | |+ + +| Barium swallow | 2022-11-08 || Consider ENT | || Discussed aversion and BH | || RTC 1 month for follow-up | |+ + +| Advised to follow up with LUIS CHAN- appointment already scheduled | 2022-10-25 |+ + +| Completed Amoxicillin-- | 2022-11-01 || RTC if symptoms return | |+ + +| Follow discharge summary | 2022-11-01 || RTC if symptoms worsen or persist | |+ + +| A1C | 2023-04-17 || 30-day courtesy refill Metformin | || RTC 4 months for follow-up | |+ + +| Most likely 2/2 constipation | 2023-10-01 || Miralax | || fiber rich foods | || RTC if symptoms worsen or persist | |+ + +| Rx: Bromphed | 2022-12-16 || Rx: Medrol dose pack. | || Viscous lidocaine for swallowing. | || Reassurance was given | || Likely etiology is viral in nature - no antibiotics are indicated at this time | || Continue supportive care measures | || Cetirizine for congestion | || Increase fluid intake | || Follow up in 3-5 days or sooner if symptoms worsen | |+ + +| increase bromfed dm to 10ml q 6 to 8 hours prn. | 2022-12-22 || warm salt water gargles | |+ + +| BLE | 2023-01-08 || educated pt to elevate feet at rest. | || Drink plenty of fluids and limit salt intake. | || Pt educated to also use compression stockings | || RTO in 1 week if no improvement | |+ + +| referral neurology after patient calls insurance | 2023-01-23 || Start Sumatriptan-Naproxen | || Start propranolol prophylaxis | |+ + +| Chest xray | 2023-01-23 || PFT if chest xray is WNL | || Start Benzonatate | |+ + +| Ibuprofen 800 mg TID PRN | 2023-03-06 |+ + +| Right side | 2023-03-06 || Diagnostic US bilateral | || Bactrim DS BID x 14 days | |+ + +| Nexplanon site | 2023-03-06 || soft tissue US | |+ + +| Start Hydroxyzine 25mg 1-2 tab HS PRN as Rx | 2023-04-22 || Discussed sleep hygiene: | || Maintain a regular sleep schedule, particularly a regular wake-up time in the | || morning | || Avoid caffeinated beverages after lunch | || Avoid alcohol near bedtime (eg, late afternoon and evening) | || Avoid smoking or other nicotine intake, particularly during the evening | || Adjust the bedroom environment as needed to decrease stimuli (eg, reduce | || ambient light, turn off the television or radio) | || Avoid prolonged use of light-emitting screens (laptops, tablets, smartphones, | || ebooks) before bedtime | || Resolve concerns or worries before bedtime | || Exercise regularly for at least 20 minutes, preferably more than four to five | || hours prior to bedtime | || Avoid daytime naps, especially if they are longer than 20 to 30 minutes or | || occur late in the day | || RTO 4 weeks | |+ + +| RTO TSH, T4, T3, CRP, CBC | 2023-05-15 || await results | || RTC 2 weeks for follow-up | |+ + +| Most likely 2/2 dairy | 2023-06-28 || RTC if symptoms worsen or persist | |+ + +| follow-up for evaluation | 2023-06-18 |+ + +| referral audiology | 2023-06-28 |+ + +| referral data mining analyst | 2023-06-28 |+ + +| referral optometry | 2023-09-03 |+ + +| referral thoracic and lumbosacral Xrays | 2023-10-22 || Diclofenac 75 mg ER daily PRN | || Methocarbamol 750 mg TID PRN | || Gabapentin 100 mg TID | || RTC 1 month for follow-up | |+ + +| continue medication(s) as prescribed | 2023-10-25 |+ + +| referral orthopedics | 2023-11-06 || RTC 1 month for follow-up | |+ + +| f/u orthopedics | 2023-11-19 || Solumedrol on nurse schedule | |+ + +| f/u orthopedics | 2023-11-19 || Solumedrol on nurse schedule | |+ + +| refill phentermine 37.5 | 2023-12-21 || VEST BASTER reviewed | |+ + +1877 6-5Plan of TreatmentLNCARE PLANTXTSFA|SOC-[id number]|2.16.840.1. 159759.10.20.22.2.10AVAvailable for patient ayyuDmubnqxXmquboictDDFUd47 Section NarrativeNARRATIVEFormatted C-CDA narrative textSFAStelizabeth Keller [facility] [place]2024-05-10T00:00:00 Georgi [facility] 2023-11-29 00:46:40 8976-49-35K19:46:40 Awake, alert oriented X4, respiratory even and unlabored,skin w/d color appropriate for race, moves all ext well, pt encouraged to follow up with pcp and or return as neededPt given printed and verbal discharge instructions regarding Early onset dysthymia , patient verbralized understanding and signature obtained, patient denies any other concerns.Advised to seek medical attention for new/prolonged/worsening of symptoms,No adverse reaction to meds given in ER noted upon dischargePt [facility] 35647-9Xlvbxznac department GmzyCW7817-77-15A83:47:06[facility] department NoteTXT1.2.840.676141.1.13.104.2.7 .2.329248|[id number] for patient dafo86930-3IjagTBANVSKUIOUSbxlhezr d C-CDA narrative [id number] Faustino Silva RNMAILE52 [address] [id number] 09TLERGICVYWWIMVBUPIIMGC5050-25-46 T00:47:061.2.840.458801.1.72.3.15| 1.2.840.526148.1.13.104.2.7.2.7278 [id number] Amanda Faustino Silva RN [facility] 2023-11-28 23:35:25 9077-60-21T63:35:25 Pt arrives ambulatory to ED reporting that she was given "not so good news tonight" & says that she needed to get away from her because he was not helping her anxiety. She states "I just needed to get away to a safe place for a little while." She denies SI or HI, she says that she is having trouble keeping her emotions under control. States she needs someone to talk to. 93166-7Bvvzuesns department Triage fnmwNS6764-03-39R34:39:36[facility] Triage noteTXT1.2.840.523574.1.13.104.2.7 .2.209144|[id number] for patient ageh66809-8Ydgenuguv department NoteLNNARRATIVEFormatted C-CDA narrative textUT52 Bush [id number] 54QTPDXSABKEUTMSXTXQFLVY7519-66-82 T23:39:361.2.840.134918.1.72.3.15| 1.2.840.199419.1.13.104.2.7.2.7278 [id number] [facility] 2023-11-28 23:30:00 1181-19-50H07:30:00 [facility] Emergency Department NotePatient Name: Phani Beatty of : 1990 33 year old femaleTreatment Room: [facility] FT/[id number] Record Number: [id number] Care Physician: Archie MedleyPatient Escorted by: Self [9]Mode of Arrival: Personal means [1]EMS Treatment Prior to ED 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 treatment comments: propanolol, toprimate, metformin @ aprox 2200Travel and Exposure Screening:SymptomsDoes patient have any of these symptoms?: (not recorded)Exposure ScreeningHas patient had contact with someone with a communicable disease in the last month?: (not recorded)Diseases exposed to:: (not recorded)Is Patient ?: (not recorded)Exposure Date: (not recorded)Chief Complaint:Chief ComplaintPatient presents withAnxietyHistory of Present Illness:Pt arrives ambulatory to ED reporting that she was given "not so good news tonight" & says that she needed to get away from her because he was not helping her anxiety. She states "I just needed to get away to a safe place for a little while." She denies SI or HI, she says that she is having trouble keeping her emotions under control. States she needs someone to talk to.History provided by: PatientLanguage telephone interceptor operator used: NoPast Medical History/Immunizations:Past Medical History:Diagnosis DateBipolar disorder, unspecifiedBorderline personality disorderHypothyroidism, unspecifiedMigraineMorbid obesityPCOS (polycystic ovarian syndrome)PrediabetesTetanus received in last 5 years: YesAllergies:AllergiesAllergen ReactionsAripiprazole Other - See commentsSuicidal ideation and AMSDoxepin AnxietyAnger, agressionLamotrigine Other - See commentsPossible reaction att.Latuda [Lurasidone] Other - See commentsManic episode/agressionSeroquel [Quetiapine] Other - See commentsDoes not help and causes weight gainZiprasidone Other - See commentsCauses a reaction with metformin & TopamaxPast Social History:Tobacco UseNever smoked or used smokeless tobacco.Alcohol UseYes.Comments: rarelyDrug UseNot Currently.Past Surgical History:Past Surgical History:Procedure Laterality DateRECONSTRUCTION FACE (SHX) 1992dog biteTONSILLECTOMYReview of Systems:Review of SystemsPsychiatric/Behavioral: Negative for self-injury and suicidal ideas. The patient is not nervous/anxious.Depressed, frustrated and angryPhysical Exam:ED Triage Vitals [11/28/23 2339]Weight 113.4 kg (250 lb)Actual or estimated Estimated by patient/family reportHeight 1.499 m (4' 11")BP (!) 154/113Pulse 82Resp 18Temp 37.3 ?C (99.1 ?F)Temp source OralSpO2 100 %Measured on Room airPhysical ExamVitals and nursing note reviewed.Constitutional:General: She is not in acute distress.Appearance: She is well-developed. She is not diaphoretic.HENT:Head: Normocephalic and atraumatic.Right Ear: External ear normal.Left Ear: External ear normal.Nose: Nose normal.Mouth/Throat:Pharynx: No oropharyngeal exudate.Eyes:General: No scleral icterus.Right eye: No discharge.Left eye: No discharge.Conjunctiva/sclera: Conjunctivae normal.Pupils: Pupils are equal, round, and reactive to light.Neck:Thyroid: No thyromegaly.Vascular: No JVD.Trachea: No tracheal deviation.Cardiovascular:Rate and Rhythm: Normal rate and regular rhythm.Heart sounds: Normal heart sounds. No murmur heard.No friction rub. No gallop.Pulmonary:Effort: Pulmonary effort is normal. No respiratory distress.Breath sounds: Normal breath sounds. No stridor. No wheezing or rales.Chest:Chest wall: No tenderness.Abdominal:General: Bowel sounds are normal. There is no distension.Palpations: Abdomen is soft. There is no mass.Tenderness: There is no abdominal tenderness. There is no guarding or rebound.Musculoskeletal:General: No tenderness or deformity. Normal range of motion.Cervical back: Normal range of motion and neck supple.Lymphadenopathy:Cervical: No cervical adenopathy.Skin:General: Skin is warm and dry.Coloration: Skin is not pale.Findings: No erythema or rash.Neurological:Mental Status: She is alert and oriented to person, place, and time.Cranial Nerves: No cranial nerve deficit.Motor: No abnormal muscle tone.Coordination: Coordination normal.Deep Tendon Reflexes: Reflexes are normal and symmetric. Reflexes normal.Psychiatric:Attention and Perception: Attention and perception normal.Mood and Affect: Mood is depressed. Affect is tearful.Speech: Speech normal.Behavior: Behavior normal.Thought Content: Thought content normal. Thought content is not paranoid or delusional. Thought content does not include homicidal or suicidal ideation. Thought content does not include homicidal or suicidal plan.Cognition and Memory: Cognition and memory normal.Judgment: Judgment normal.Radiology:No orders to displayLab Results:Lab Results - No data to displayEKG:If EKG completed, see Procedure Note.Orders and Treatments:No orders of the defined types were placed in this encounter.No orders of the defined types were placed in this encounter.First Provider Eval:ED EventsDate/Time Event User Gzmjocfs88/17/242350 Medical Screening Begins EMILY SINGH MD --11/28/232350 First Provider Evaluation EMILY SINGH MD --ED COURSEDiagnosis/Impression as of 11/29/23 0030Early onset dysthymiaPatient's condition stable, I was able to talk to her for over 30 minutes regarding her issues, she was able to calm down, and feel better after it, will DC Home.Procedures:ProceduresMDM:Medi piedad Decision MakingProblems Addressed:Early onset dysthymia: self-limited or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
[2024-02-16 09:25] VITALS: BP 140/93; TEMP 97; O2SAT 98
== END 2024-02-16 09:20 | disposition home or self-care (01) ==
LOC: ER 09:01
DX: K08.89 Other specified disorders of teeth and supporting structures (principal); Z98.818 Other dental procedure status
CPT/HCPCS: 96372; 99284

== ENCOUNTER 2024-07-10 11:29 | Emergency (ER) | payer OTHER ==
--- OUTSIDE RECORDS SUMMARY | 2024-07-10 11:42 | XMS REPORT | Continuity of Care Document ---
Author Name Unknown Address [address] [facility] [address] [place] [address] [facility] Address [address] [facility]. [address] [place] [address] Care Team Providers Care Buttoner Name Role Phone Ludivina ESCOBAR, [facility] Primary Care Physician [phone] FAUSTINO COTREZ Attending Clinician Unavailable JUAN GARCIA Attending Clinician Unavail able JUAN GARCIA Attending Clinician Unavail able AFIA BEAULIEU Attending Clinician Unavailable NABEEL MEDINA Attending Clinician Unavailab JUAN Swan Attending Clinician Unavailable SABRINA WINTER Attending Clinician Unavailable ENDER FIGUEROA Attending Clinician Unavailab Cesar White Attending Clinician Unavailcarmelo e RACIEL VENTURA-SON Attending Clinician Unavailable KAMILAH GARCIA Attending Clinician Unavail able YISEL ASTORGA Attending Clinician Unavailable ZIYAD HOYOS Attending Clinician U navailwillow LAB90 Attending Clinician Unavailable CESAR GARCIA Attending Clinician Unav LIBERTAD Duarte Attending Clinician Unavailable GEORGI WILBURN Attending Clinician Unavailable Doctor Unassigned, [employer] Attending Clinician U navailable JULYCARMENTAMMY R Attending Clinician Unavaila RIGO Martin Attending Clinician UnavailHerminio CONNER, Afia Attending Clinician [phone] [phone], [facility] Attending Clinician [facility] Attending Clinician Jeanine vailable Elly Blackburn MD Attending Clinician [phone] SHARRI OLSON Attending Clinician UnavailSHARRI Chan Attending Clinician Unavailcarmelo Dang [facility], Navneet Peoples Attending Clinician Unava ilable [facility], [facility] Attending Clinician Doctor Unassigned, [employer] Attending Clinician U navailable ELLY BLACKBURN Attending Clinician Unavailable EMILY SINGH Attending Clinician Unavailable Emily Singh MD Attending Clinician + [phone] ATILIO ANDREWS Attending Clinician Unavailable OBI SHARIF Attending Clinician Unavailable RADIOLOGY Attending Clinician Unavailable Radiology Attending Clinician Unavailable Elly Blackburn MD Attending Clinician [phone] BONNIE ROCHA Attending Clinician Unavailab Bonnie Vu Attending Clinician +[phone] Debbie Velasco RN Attending Clinician Unavaila jose Dang [facility], Navneet Peoples Attending Clinician Unava ilable Ion Rahman MD Attending Clinician [phone] ION RAHMAN Attending Clinician Unavaila ION Chua Attending Clinician Unavaila ISELA Vieira Attending Clinician Unavailable CHANEL JACOME Attending Clinician Unavailable Jens Carranza RN, Sharri Canseco Attending Clinician Unava ilable GEORGETTE JEFFREY Attending Clinician Unavailable Georgette Nieto Attending Clinician [phone] Mildred Anders RN Attending Clinician Jeanine vailable Zahnna Kramer LVN Attending Clinician UnavailRobina CONNER, Preethi Attending Clinician [phone] Yamil MESSINA Attending Clinician Unavailable Yamil Monroy Attending Clinician +[phone] YOON PAGE Attending Clinician Unavailable Yoon Page MD Attending Clinician [phone] Pgy2 Attending Clinician Unavailable Marques Mansfield MD Attending Clinician [phone] Santos, [facility] Resident Attending Clinician Unavailab Aracely Del Rio MD Attending Clinician [phone] Danielle ESCOBAR, Dena Attending Clinician + Jeanette Campos MD Attending Clinician +[phone] JEANETTE CAMPOS Attending Clinician Unavailable BEBE GABRIEL Attending Clinician Unavailable Juan Castellanos Admitting Clinician Unavailab AFIA Garcia Admitting Clinician Unavailable Yamil MESSINA Admitting Clinician Unavailable YOON PAGE Admitting Clinician Unavailable Payers Payer Name Policy Type Policy Number Effective Date Expirati on Date Source [facility] ROLANDA-SEYBOLD GOLD COPAY FOCUS 9 [id number] 2024 00:00:00 [facility] [place] [id number] 2022 00:00:00 Problems Condition Name Condition Details Condition Category Status Onset Date Resolution Date Last Treatment Date Treating Clinician Comments Source No known active problems No known active problems Disease [facility] PCOS (polycysti c ovarian syndrome) PCOS (polycysti [...] Date Inactive Date Treating Clinician Comments Source lurasido ne DA Active [place] ANXIETY 2023-08 00:00: 00 [facility] lamotrig ine DA Active [place] RASH 2023-08 00:00: 00 [facility] doxepin DA Active MO ANXIETY 2023-08 00:00: 00 [facility] quetiapi ne DA Active MO WEIGHT GAIN 2023-08 00:00: 00 [facility] aripipra zole DA Active MO ANXIETY 2023-08 00:00: 00 [facility] QUETIAPI NE DRUG INGREDI Active Other-Cmnt 11-27 00:00: 00 [facility] ZIPRASID ONE DRUG INGREDI Active Other-Cmnt 17 00:00: 00 [facility] Ziprasid one Propensi ty to adverse reaction s Active Other - See comments 11-27 00:00: 00 Causes a reaction with metformin & Topamax [facility] Quetiapi ne Propensi ty to adverse reaction s Active Other 17 00:00: 00 Does not help and causes weight gain Rolanda Seybold - Externa l Ziprasid one Propensi ty to adverse reaction s Active Other 17 00:00: 00 Causes a reaction with metformin & Topamax Rolanda Seybold - Externa l Lamictal Propensi ty to adverse reaction to drug Active 3-11 00:00: 00 Georgi IVEY NE DRUG INGREDI Active Other-Cmnt 0 8-07 00:00: 00 [facility] DOXEPIN DRUG INGREDI Active Anxiety 8-07 00:00: 00 [facility] Doxepin Propensi ty to adverse reaction s Active Anxiety 8 00:00: 00 Anger, agression [facility] Lurasido ne Propensi ty to adverse reaction s Active Other - See comments 8 00:00: 00 Manic episode/a gression [facility] Lurasido ne Propensi ty to adverse reaction s Active Other 8 00:00: 00 Manic episode/a gression Rolanda Seybold - Externa l Doxepin Propensi ty to adverse reaction s Active Other 2021-08 2-14 00:00: 00 Anger, agression Rolanda Seybold - Externa l Abilify - Oral Propensi ty to adverse reaction to drug Active 8 00:00: 00 Georgi Delaney Codeine Propensi ty to adverse reaction s Active 04-06 00:00: 00 Rolanda Covarrubiasold - Externa l ARIPIPRA ZOLE DRUG INGREDI Active Other-Cmnt 03-11 00:00: 00 [facility] LAMOTRIG INE DRUG INGREDI Active Other-Cmnt 03-11 00:00: 00 [facility] Aripipra zole Propensi ty to adverse reaction s Active Other - See comments 03-11 00:00: 00 Suicidal ideation and AMS [facility] Lamotrig ine Propensi ty to adverse reaction s Active Other - See comments 03-11 00:00: 00 Possible reaction att. [facility] Lamotrig ine Propensi ty to adverse reaction s Active Other 01-30 00:00: 00 Possible reaction att. Rolanda Covarrubiasold - Externa l Aripipra zole Monohydr ate Propensi ty to adverse reaction s Active Other 620 00:00: 00 Suicidal ideation and AMS Rolanda Vogel - Externa richelle NO KNOWN ALLERGIE S Drug Class Active [facility] Family History Family Member Diagnosis Comments Start Date Stop Date Sourc e [facility]aternal [facility] Social History Social Habit Start Date Stop Date Quantity Comments Source Gender identity [facility] Exposure to SARS-CoV-2 (event) [facility] sure [facility] ASSERTION Not Rolanda Vogel - External Sexual orientation Yamil salgado Jaspreet - External Alcoholic beverage intake 2024-06-26 00:00:00 2024-06-26 00:00:00 .14 /d Rolanda Vogel - External Cigarettes smoked current (pack per day) - Reported 2024-02-05 00:00:00 2024-02-05 00:00:00 Rolanda Vogel - External Cigarette pack-years 2024-02-05 00:00:00 2024-02-05 00:00:00 Rolanda Vogel - External Tobacco use and exposure 2024-02-05 00:00:00 2024-02-05 00:00:00 Smokeless tobacco non-user Rolanda Vogel - External History of Social function 2024-02-04 00:00:00 2024-02-04 00:00:00 Rolanda Vogel - External Alcohol Comment 2024-02-04 00:00:00 2024-02-04 00:00:00 rarely socially, in past alcohol abuse; alcohol poisoning 1 month ago Rolanda Vogel - External Sex 2024-01-10 10:08:48 2024-01-10 10:08:48 Female (finding) Rolanda Vogel - External Alcohol intake 2023-11-01 00:00:00 2023-11-01 00:00:00 Current drinker of alcohol (finding) [facility] History of tobacco use 2004-02-04 00:00:00 2010-02-03 00:00:00 Cigarette Smoker Rolanda Vogel - External Sex assigned at 1990 00:00:00 1990 00:00:00 Rolanda Vogel - External Smoking Status Start Date Stop Date Source Ex-smoker 2024-02-05 00:00:00 2024-02-05 00:00:00 Rolanda Cheung External Never smoked tobacco [facility] Tobacco smoking consumption unknown [facility] Medications Ordered Medication Name Filled Medication Name Start Date Stop Date Current Medication? Ordering Clinician Indication Dosage Frequency Signature (SIG) Comments Components Source Etonogestre l (NEXPLANON SC) 2023-08 14:52: 42 Yes [id number] Inject into the skin. Rolanda peoples Gabapentin 100 MG oral Capsule 2023-08 00:00: 00 Yes [id number] 100mg Q.[id number] 3D Take 1 capsule (100 mg total) by mouth 3 times daily. Rolanda peoples methylPREDN ISolone 4 MG oral Tablet Therapy Pack 2023-08 00:00: 00 Yes [id number] 1{michi} Take 1 michi by mouth See Admin Instructio ns Use as directed. Rolanda peoples Gabapentin 300 MG oral Capsule 2023-08 00:00: 00 06-26 00:00 :00 No [id number] 300mg Q.[id number] 3D Take 1 capsule (300 mg total) by mouth 3 times daily. Rolanda peoples PEG 3350-KCl-Na Bcb-NaCl-Na Sulf (PEG-3350/E lectrolytes ) 236 g oral Recon Soln 2023-08 00:00: 00 06-26 00:00 :00 No TAKE DIRECTED - TAKE AT 7 PM THE NIGHT BEFORE DRINK 8 OUNCES EVERY 15 MINUTES UNTIL HALF GONE,THEN 4 HOURS PRIOR TO PROCEDURE DRINK 8 OUNCES EVERY 15 MINUTES UNTIL FINISHED Rolanda peoples Etonogestre l (NEXPLANON SC) 2023-08 14:02: 45 Yes [id number] Inject into the skin. Rolanda peoples Etonogestre l (NEXPLANON SC) 2023-08 15:01: 47 Yes [id number] Inject into the skin. Rolanda peoples linaCLOtide (Linzess) 145 MCG oral Capsule 2023-08 00:00: 00 Yes [id number] 145ug QD Take 1 capsule (145 mcg total) by mouth daily. Rolanda peoples Phentermine HCl 37.5 MG oral Tablet 2023-08 00:00: 00 06-10 00:00 :00 No [id number] 37.5mg Take 1 tablet (37.5 mg total) by mouth every morning (before breakfast) . Rolanda peoples linaCLOtide (Linzess) 145 MCG oral Capsule 2023-08 0 00:00: 00 05-27 00:00 :00 No [id number] 145ug QD Take 1 capsule (145 mcg total) by mouth daily. Rolanda peoples Etonogestre l (NEXPLANON SC) 9 13:48: 24 Yes [id number] Inject into the skin. Rolanda peoples Mounjaro 2.5 MG/0.5ML subcutaneou s Solution Pen-injecto r 04-04 00:00: 00 05-27 00:00 :00 No Rolanda peoples Etonogestre l (NEXPLANON SC) 04-03 15:13: 14 Yes [id number] Inject into the skin. Rolanda peoples Levothyroxi ne Sodium (Unithroid) 50 MCG oral Tablet 04-03 00:00: 00 Yes [id number] 50ug QD Take 1 tablet (50 mcg total) by mouth daily. Rolanda peoples Semaglutide -Weight Management (Wegovy) 0.25 MG/0.5ML subcutaneou s Solution Auto-inject or 04-03 00:00: 00 05-27 00:00 :00 No [id number] .25mg Q1W Inject 0.25 mg into the skin once a week. Rolanda peoples Phentermine HCl 37.5 MG oral Tablet 04-03 00:00: 00 05-27 00:00 :00 No [id number] 37.5mg Take 1 tablet (37.5 mg total) by mouth every morning (before breakfast) . Rolanda peoples Etonogestre l (NEXPLANON SC) 03-04 14:26: 28 Yes [id number] Inject into the skin. Rolanda peoples Semaglutide -Weight Management (Wegovy) 0.25 MG/0.5ML subcutaneou s Solution Auto-inject or 03-04 00:00: 00 04-03 00:00 :00 No [id number] .25mg Q1W Inject 0.25 mg into the skin once a week. Rolanda peoples Diethylprop ion HCl CR 75 MG oral TABLET SR 24 HR 03-04 00:00: 00 04-03 00:00 :00 No [id number] 1{tbl} QD Take 1 tablet by mouth daily. Rolanda peoples Cholecalcif luann (Vitamin D) 50 MCG (2000 UT) oral Capsule 02-20 00:00: 00 04-03 00:00 :00 No [id number] 2000U QD Take 1 capsule (2,000 units total) by mouth daily. Rolanda peoples Ibuprofen (MOTRIN) 600 MG oral Tablet 02-12 00:00: 00 Yes Rolanda peoples Chlorhexidi ne Gluconate 0.12 % mouth/throa t Solution 02-12 00:00: 00 05-27 00:00 :00 No Rolanda peoples Acetaminoph en-Codeine 300-30 MG oral Tablet 02-12 00:00: 00 04-03 00:00 :00 No Rolanda peoples Vitamin D, Ergocalcife rol, 1.25 MG (24073 UT) oral Capsule 02-10 00:00: 00 05-27 00:00 :00 No [id number] 87421O Q1W Take 1 capsule (50,000 units total) by mouth once a week. Rolanda peoples Levothyroxi ne Sodium (Unithroid) 50 [...] l (NEXPLANON SC) 02-04 15:21: 33 Yes [id number] Inject into the skin. Rolanda peoples Levothyroxi ne Sodium (Unithroid) 50 MCG oral Tablet 02-04 00:00: 00 04-03 00:00 :00 No [id number] 50ug QD Take 1 tablet (50 mcg total) by mouth daily. Rolanda peoples Phentermine HCl 37.5 MG oral Tablet 02-04 00:00: 00 03-04 00:00 :00 No [id number] 37.5mg QD Take 1 tablet (37.5 mg [...] tablet 01-02 00:00: 00 Yes 1mg Georgi Dleaney gabapentin 100 mg capsule 01-02 00:00: 00 Yes 1mg Georgi Delaney metFORMIN 500 mg tablet 12-30 11:10: 07 Yes 500mg Take 1 tablet by mouth in the morning and 1 tablet in the evening. Take with meals. [facility] Ketorolac Tromethamin e (TORADOL) injection syringe 60 mg 12-25 14:30: 00 12-25 14:30 :00 No [id number] 60mg 60 mg, Intramuscu lar, ONCE, 1 dose, On Sun12/26/23 at 0930, Routine [facility] Ondansetron HCl 4 MG oral Tablet 2024-0 5-14 00:00: 00 Yes [id number] 4mg Q.[id number] 3D Take 1 tablet (4 mg total) by mouth every 8 hours as needed. Rolanda peoples Propranolol HCl 40 MG oral Tablet 14 00:00: 00 Yes [id number] 40mg QD Take 1 tablet (40 mg total) by mouth daily. Rolanda peoples Rimegepant Sulfate (Nurtec) 75 MG oral TABLET DISPERSIBLE 12-24 00:00: 00 Yes [id number] 75mg QD Take 1 tablet (75 mg total) by mouth daily as needed. Rolanda peoples Topiramate 100 MG oral Tablet 12-24 00:00: 00 Yes [id number] 100mg Q.5D Take 1 tablet (100 mg total) by mouth 2 times daily. Rolanda peoples Ubrogepant 100 MG oral Tablet 12-24 00:00: 00 Yes [id number] 100mg Take 1 tablet (100 mg total) by mouth as needed. Rolanda peoples levothyroxi ne 50 mcg tablet 12-20 00:00: 00 Yes 1mcg Georgi Delaney phentermine 37.5 mg tablet 12-20 00:00: 00 Yes mg Georgi Delaney hydrOXYzine HCl 50 MG oral Tablet 08 00:00: 00 Yes [id number] Take 2 tablets at night as needed for insomnia. If unable to sleep after 1 hour take 1 tablet by mouth at night. Can take an additional 2 tablets during the day as needed for anxiety. Rolanda peoples Venlafaxine HCl 75 MG oral Capsule 24 Hour Sustained Release 08 00:00: 00 Yes [id number] 75mg QD Take 1 capsule (75 mg total) by mouth daily (with breakfast) . Rolanda peoples Metformin HCl ER 500 MG oral TABLET SR 24 HR 4-19 00:00: 00 - 00:00 :00 No [id number] 500mg Take 1 tablet (500 mg total) by mouth in the morning and 1 tablet (500 mg total) in the evening. Take with meals. Rolanda Stacy l HYDROXYZINE HCL 50 MG TABS 11-13 00:00: 00 Yes Georgi Delaney levothyroxi ne 112 mcg tablet 11-11 00:00: 00 Yes mcg Georgi Delaney UNITHROID 112 MCG TABS 11-11 00:00: 00 Yes Georgi Delaney butalbital- acetaminoph en-caff 50-325-40 mg tablet 10-31 08:54: 39 10-31 00:00 :00 No 1{tbl} Take 1 tablet by mouth every 4 (four) hours as needed for Headache. [facility] TOPIRAMATE 100 MG TABS 10-31 00:00: 00 Yes Georgi Delaney topiramate 100 mg tablet 10-31 00:00: 00 12-24 00:00 :00 No [id number] 100mg Take 1 tablet by mouth in the morning and 1 tablet in the evening. [facility] butalbital- acetaminoph en-caff 50-325-40 mg tablet 10-30 08:17: 56 Yes 1{tbl} Take 1 tablet by mouth every 4 (four) hours as needed for Headache. [facility] Victoza 2-Michi 0.6 mg/0.1 mL (18 mg/3 mL) subcutaneou s pen injector 10-24 00:00: 00 Yes (18 mg/3 mL) Georgi Delaney phentermine 37.5 mg tablet 10-24 00:00: 00 Yes mg Georgi Delaney Methocarbam ol 750 MG oral Tablet 10-22 00:00: 00 Yes [id number] TAKE 1 TABLET BY MOUTH THREE TIMES A DAY NEEDED FOR MUSCLE SPASM Rolanda Stacy l gabapentin 100 mg capsule 10-22 00:00: 00 Yes 1mg Georgi Delaney Gabapentin 100 MG oral Capsule 10-22 00:00: 00 06-22 00:00 :00 No [id number] 100mg Q.[id number] 3D Take 1 capsule (100 mg total) by mouth 3 times daily. Rolanda peoples Diclofenac Sodium 75 MG oral Tablet Delayed Response 10-22 00:00: 00 04-03 00:00 :00 No [id number] 1mg 1 mg. Rolanda peoples ketorolac (TORADOL) injection 30 mg 10-16 06:30: 00 10-16 06:17 :00 No 30mg 30 mg, Slow IV Push, ONCE, 1 dose, On Sun10/17/23 at 0030, Routine [facility] NaCl 0.9% (NS) bolus infusion 1,000 mL 10-16 06:15: 00 10-16 07:36 :00 No 1000mL at 999 mL/hr, 1,000 mL, IV Infusion, ONCE, 1 dose, On Sun10/17/23 at 0015, STAT [facility] metoclopram krystian HCl (REGLAN) injection 10 mg 10-16 06:15: 00 10-16 06:17 :00 No 10mg 10 mg, Slow IV Push, ONCE, 1 dose, On Sun10/17/23 at 0015, PAWEL [facility] diphenhydrA MINE (BENADRYL) injection 25 mg 10-16 06:15: 00 10-16 06:17 :00 No 25mg 25 mg, Slow IV Push, ONCE, 1 dose, On Sun10/17/23 at 0015, STAT [facility] hydroxyzine HCl 50 mg tablet 10-16 00:00: 00 Yes mg Georgi Delaney ACETAMINOPH EN-CAFF-BUT ALBITAL 50-325-40 MG oral Tablet 10-16 00:00: 00 06-26 00:00 :00 No [id number] Rolanda peoples venlafaxine ER 75 mg capsule,ext ended release 24 hr - 00:00: 00 Yes mg Georgi Delaney metFORMIN 500 mg tablet 10-03 10:52: 09 Yes 500mg Take 1 tablet by mouth in the morning and 1 tablet in the evening. Take with meals. [facility] Rimegepant Sulfate (Nurtec) 75 MG oral TABLET DISPERSIBLE 10-03 00:00: 00 02-04 00:00 :00 No Rolanda peoples phentermine 37.5 mg tablet 10-02 00:00: 00 Yes mg Georgi Delaney NURTEC 75 MG TBDP 09-18 00:00: 00 Yes Georgi Delaney TOPIRAMATE 50 MG TABS 09-18 00:00: 00 Yes Georgi Delaney rimegepant (NURTEC ODT) 75 mg TbDL 09-18 00:00: 00 12-24 00:00 :00 No [id number] 75mg Take 1 tablet by mouth once daily as needed (Headache) . [facility] propranoloL 40 mg tablet 09-18 00:00: 00 12-24 00:00 :00 No [id number] 40mg Take 1 tablet by mouth in the morning. [facility] topiramate 50 mg tablet 09-18 00:00: 00 10-31 00:00 :00 No [id number] 50mg Take 1 tablet by mouth in the morning and 1 tablet in the evening. [facility] HYDROXYZINE HCL 50 MG TABS 09-17 00:00: 00 Yes Georgi Delaney VENLAFAXINE HYDROCHLORI DE ER 75 MG CP24 09-17 00:00: 00 Yes Georgi Delaney venlafaxine XR (EFFEXOR XR) 75 mg 24 hr capsule 09-17 00:00: 00 12-18 00:00 :00 No [id number] 75mg Take 1 capsule by mouth daily with breakfast. [facility] propranolol 40 mg tablet - 00:00: 00 Yes mg Georgi Delaney metformin ER 500 mg tablet,exte nded release 24 hr 09-03 00:00: 00 Yes mg Georgi Delaney TAKE 1 TABLET DAILY 09-03 00:00: 00 Yes Georgi Delaney VENLAFAXINE HYDROCHLORI DE ER 75 MG CP24 09-03 00:00: 00 Yes Georgi Delaney venlafaxine XR (EFFEXOR XR) 75 mg 24 hr capsule 09-03 00:00: 00 09-17 00:00 :00 No [id number] 75mg Take 1 capsule by mouth daily with breakfast. [facility] levothyroxi ne 112 mcg tablet 08-19 00:00: 00 Yes mcg Georgi Delaney topiramate 50 mg tablet 08-16 00:00: 00 Yes mg Georgi Delaney Liraglutide (Victoza) 18 MG/3ML subcutaneou s Solution Pen-injecto r 08-14 00:00: 00 02-04 00:00 :00 No Rolanda peoples FLUTICASONE PROPIONATE, NASAL, 50 MCG/ACT nasal Suspension 2022-08 00:00: 00 04-03 00:00 :00 No Rolanda peoples Cetirizine (ZYRTEC) 10 MG oral Tablet 2022-08 00:00: 00 02-04 00:00 :00 No Rolanda peoples USE 1 SPRAY IN EACH NOSTRIL ONCE DAILY. 2022-08 00:00: 00 12-25 00:00 :00 No 50 Georgi Alex Delaney LEVOTHYROXI NE SODIUM 112 MCG TABS 2022-08 00:00: 00 Yes Georgi Delaney 0.6 MG ONCE DAILY FOR 1 WEEK, THEN INCREASE TO 1.2 MG ONCE DAILY 2022-08 00:00: 00 12-25 00:00 :00 No 183 Georgi Alex Rhett Zolpidem Tartrate 5 MG oral Tablet 2022-08 00:00: 00 02-04 00:00 :00 No Rolanda peoples ramelteon 8 mg tablet 2022-08 00:00: 00 07-23 00:00 :00 No [id number] 8mg Take 1 tablet by mouth at bedtime as needed for Insomnia. [facility] TAKE 1 TABLET BY MOUTH TWICE [...] Georgi Delaney UBRELVY 100 MG TABS 2022-08 0- 00:00: 00 Yes Georgi Delaney ubrogepant 100 mg Tab 2022-08 00:00: 00 12-24 00:00 :00 No [id number] 100mg Take 1 tablet by mouth as needed for Other (Headache) for up to 64 doses. If symptoms persist or return, may repeat dose after 2 hours. Maximum: 200 mg per 24 hours [facility] VENLAFAXINE HYDROCHLORI DE ER 37.5 MG CP24 2022-08 0-25 00:00: 00 Yes Georgi Delaney HYDROXYZINE HCL 50 MG TABS 2022-08 0-25 00:00: 00 Yes Georgi Delaney VENLAFAXINE HYDROCHLORI DE ER 75 MG CP24 2022-08 0-25 00:00: 00 Yes Georgi Delaney venlafaxine XR (EFFEXOR XR) 75 mg 24 hr capsule 2022-08 0-25 00:00: 00 09-03 00:00 :00 No [id number] 75mg Take 1 capsule by mouth daily with breakfast. [facility] TAKE 1 TABLET TWICE A DAY WITH MEALS 2022-08 0-24 00:00: 00 12-25 00:00 :00 No 500 Georgi Delaney Omeprazole 40 MG oral Delayed Release Capsule 2022-08 0-18 00:00: 00 05-27 00:00 :00 No Roladna peoples TOPIRAMATE 50 MG TABS 2022-08 0-12 00:00: 00 Yes Georgi Delaney TAKE 1 TABLET BY MOUTH EVERY DAY IN THE MORNING 2022-08 0 00:00: 00 Yes Georgi Delaney topiramate 50 mg tablet 2022-08 0 00:00: 00 09-18 00:00 :00 No [id number] 50mg Take 1 tablet by mouth in the morning and 1 tablet in the evening. [facility] propranoloL 40 mg tablet 2022-08 00:00: 00 09-18 00:00 :00 No [id number] 40mg Take 1 tablet by mouth in the morning. [facility] rimegepant (NURTEC ODT) 75 mg TbDL 2022-08 0 00:00: 00 09-18 00:00 :00 No [id number] 75mg Take 1 tablet by mouth as needed (Headache) . [facility] PLEASE SEE ATTACHED FOR DETAILED DIRECTIONS 2022-08 0 00:00: 00 Yes Georgi Delaney VENLAFAXINE HYDROCHLORI DE ER 75 MG CP24 05-09 00:00: 00 Yes Georgi Delaney hydrOXYzine 50 mg tablet 05-09 00:00: 00 06-06 00:00 :00 No [id number] Take 2 tablets at night as needed for insomnia. Can take an additional 2 tablets during the day as needed for anxiety. [facility] venlafaxine XR (EFFEXOR XR) 75 mg 24 hr capsule 05-09 00:00: 00 06-06 00:00 :00 No [id number] 75mg Take 1 capsule by mouth daily with breakfast. [facility] LEVOTHYROXI NE SODIUM 112 MCG TABS [...] every 6 hours as needed for itching [facility] TAKE 1 CAPSULE BY MOUTH DAILY WITH BREAKFAST. 04-25 00:00: 00 Yes Georgi Delaney HYDROXYZINE HCL 50 MG TABS 04-25 00:00: 00 Yes Georgi Delaney venlafaxine XR (EFFEXOR XR) 75 mg 24 hr capsule 04-25 00:00: 00 05-09 00:00 :00 No [id number] 75mg Take 1 capsule by mouth daily with breakfast. [facility] TAKE 1 TO 2 TABLETS AT BEDTIME 04-22 00:00: 00 12-25 00:00 :00 No 25 Georgi Delaney NaCl 0.9% (NS) bolus infusion 1,000 mL 04-21 02:30: 00 04-21 04:53 :00 No 1000mL at 999 mL/hr, 1,000 mL, IV Infusion, ONCE, 1 dose, On Sun04/20/23 at 2130, STAT [facility] ketorolac (TORADOL) injection 30 mg 04-21 02:30: 00 04-21 02:47 :00 No 30mg 30 mg, Slow IV Push, ONCE, 1 dose, On Sun04/20/23 at 2130, PAWEL [facility] proCHLORper azine (COMPAZINE) 10 mg in NaCl 0.9% (NS) piggyback 04-21 02:15: 00 04-21 04:47 :00 No 10mg 10 mg, IV Piggyback, at 100 mL/hr Administer over 30 Minutes, ONCE, 1 dose, On Sun04/20/23 at 2115, Routine [facility] diphenhydrA MINE (BENADRYL) injection 25 mg 04-21 01:30: 00 04-21 02:46 :00 No 25mg 25 mg, Slow IV Push, ONCE, 1 dose, On Sun04/20/23 at 2030, STAT [facility] sulfamethox azole-trime thoprim 400-80 mg per tablet 04-20 20:09: 31 04-20 00:00 :00 No 1{tbl} Take 1 tablet by mouth in the morning and 1 tablet in the evening. [facility] TAKE 1 TABLET DAILY. 04-17 00:00: 00 12-25 00:00 :00 No 375 Georgi Delaney TAKE 1 TABLET TWICE A DAY WITH MEALS 04-17 00:00: 00 12-25 00:00 :00 No 500 Georgi Delaney VENLAFAXINE HYDROCHLORI DE ER 37.5 MG CP24 04-04 00:00: 00 Yes Georgi Delaney venlafaxine XR (EFFEXOR XR) 37.5 mg 24 hr capsule 04-04 00:00: 00 04-25 00:00 :00 No [id number] 37.5mg Take 1 capsule by mouth daily with breakfast. [facility] Ziprasidone HCl 20 MG oral Capsule 03-21 00:00: 00 02-04 00:00 :00 No Rolanda peoples metFORMIN 500 mg tablet 03-19 14:17: 04 Yes 500mg Take 1 tablet by mouth in the morning and 1 tablet in the evening. Take with meals. [facility] sulfamethox azole-trime thoprim 400-80 mg per tablet 03-19 14:17: 04 Yes 1{tbl} Take 1 tablet by mouth in the morning and 1 tablet in the evening. [facility] PROPRANOLOL HYDROCHLORI DE 40 MG TABS 03-19 00:00: 00 Yes Georgi Delaney TOPIRAMATE 50 MG TABS 03-19 00:00: 00 Yes Georgi Delaney propranoloL 40 mg tablet 03-19 00:00: 00 05-24 00:00 :00 No [id number] 40mg Take 1 tablet by mouth in the morning. [facility] topiramate 50 mg tablet 03-19 00:00: 00 05-24 00:00 :00 No [id number] 50mg Take 1 tablet by mouth in the morning and 1 tablet in the evening. [facility] Phentermine HCl 37.5 MG oral Tablet 03-13 00:00: 00 02-04 00:00 :00 No 37.5mg QD Take 1 tablet (37.5 mg total) by mouth daily. Rolanda peoples TAKE 1 TABLET DAILY. 03-13 00:00: 00 12-25 00:00 :00 No 375 Georgi Delaney TAKE 1 TABLET BY MOUTH TWICE A DAY 03-06 00:00: 00 Yes Georgi Delaney TAKE 1 TABLET TWICE DAILY. 03-06 00:00: 00 12-25 00:00 :00 No [id number] Georgi Delaney NURTEC 75 MG TBDP 02-27 00:00: 00 Yes Georgi Delaney rimegepant (NURTEC ODT) 75 mg TbDL 02-27 00:00: 00 05-24 00:00 :00 No [id number] 75mg Take 1 tablet by mouth daily as needed (Headache) . [facility] Naproxen 500 MG oral Tablet 02-23 00:00: 00 Yes [id number] TAKE 1 TABLET DAILY NEEDED FOR MIGRAINE. Rolanda peoples LATUDA 40 MG TABS 02-23 00:00: 00 Yes Georgi Delaney Lurasidone HCl (Latuda) 40 MG oral Tablet 02-23 00:00: 00 02-04 00:00 :00 No Rolanda peoples lurasidone (LATUDA) 20 mg tablet 02-23 00:00: 00 03-21 00:00 :00 No [id number] 20mg Take 1 tablet by mouth every evening. Start Latuda 20 mg with dinner (at least 500 kcal); after 1 week increase to 40 mg with dinner [facility] HYDROXYZINE HCL 50 MG TABS 02-22 00:00: 00 Yes Georgi Delaney Doxepin HCl 10 MG oral Capsule 02-22 00:00: 00 02-04 00:00 :00 No Rolanda Seybold - Externa l hydrOXYzine 50 mg tablet 02-22 00:00: 00 03-21 00:00 :00 No [id number] 50mg Take 1 tablet by mouth every 6 (six) hours as needed for Itching. [facility] lurasidone (LATUDA) 20 mg tablet 02-22 00:00: 00 02-23 00:00 :00 No [id number] Take one tablet by mouth with dinner (at least 500 calories) for 1 week. After 1 week increase to two tablets by mouth with dinner. [facility] TAKE 1 TABLET DAILY FOR MIGRAINE HEADACHE PROPHYLAXIS 02-21 00:00: 00 Yes Georgi Delaney TOPIRAMATE 25 MG TABS 02-20 00:00: 00 Yes Georgi Delaney TOPIRAMATE 50 MG TABS 02-20 00:00: 00 Yes Georgi Delaney topiramate 50 mg tablet 02-20 00:00: 00 03-19 00:00 :00 No 50mg Take 1 tablet by mouth in the morning and 1 tablet in the evening. [facility] topiramate 25 mg tablet 02-20 00:00: 00 03-19 00:00 :00 No 25mg Take 1 tablet by mouth in the morning and 1 tablet in the evening. Take for 7 days then increase to 50mg twice a day. [facility] topiramate 25 mg tablet 02-16 00:00: 00 03-03 04:59 :00 No [id number] Take 1 tablet by mouth 2 (two) times daily for 7 days, THEN 2 tablets 2 (two) times daily for 7 days. [facility] ubrogepant 100 mg Tab 02-16 00:00: 00 02-27 00:00 :00 No [id number] 100mg Take 1 tablet by mouth as needed for Other (Headache) for up to 10 doses. If symptoms persist or return, may repeat dose after 2 hours. Maximum: 200 mg per 24 hours [facility] VENTOLIN HFA 90 mcg/actuati on inhaler 30 00:00: 00 04-20 00:00 :00 No INHALE 2 PUFFS EVERY 3-4 HOURS NEEDED FOR WHEEZING, COUGH, SHORTNESS OF BREATH [facility] TAKE 1 TABLET DAILY NEEDED FOR MIGRAINE. [...] 01-23 00:00: 00 12-25 00:00 :00 No [id number] Georgi Delaney TAKE 1 TABLET DAILY FOR [...] 01-17 00:00: 00 12-25 00:00 :00 No [id number] Georgi Delaney PREDNISONE 10 MG TABS 01-06 00:00: 00 Yes Georgi Delaney TRAMADOL HYDROCHLORI DE ER 100 MG TB24 01-01 00:00: 00 Yes Georgi Delaney traMADoL 100 mg 24 hr tablet 01-01 00:00: 00 04-20 00:00 :00 No TAKE 1 TABLET BY MOUTH EVERY DAY NEEDED FOR SEVERE PAIN [facility] HYDROCODONE BITARTRATE/ ACETAMINOPH E N 7.5-325 MG/15ML SOLN 12-28 00:00: 00 Yes Georgi Delaney INHALE 2 PUFFS EVERY 3-4 HOURS NEEDED FOR WHEEZING, COUGH, SHORTNESS OF BREATH 12-22 00:00: 00 Yes Georgi Alex Delaney INHALE 2 PUFFS EVERY 3-4 HOURS PRN WHEEZING, COUGH, SHORTNESS OF BREATH 12-22 00:00: 00 12-25 00:00 :00 No [id number] Georgi Delaney METHYLPREDN ISOLONE DOSE PACK 4 MG TBPK 12-16 00:00: 00 Yes Georgi Delaney TAKE 5 ML EVERY 4-6 HOURS, MAY INCREASE TO 10ML AT NIGHT TIME NEEDED. 12-16 00:00: 00 12-25 00:00 :00 No [id number] Georgi Delaney FOLLOW DIRECTIONS ON PACKAGE 12-16 00:00: 00 12-25 00:00 :00 No 4 Georgi Delaney levothyroxi ne 112 mcg tablet 12-09 00:00: 00 Yes Mohan pitt [facility] DICYCLOMINE HYDROCHLORI DE 20 MG TABS 12-09 [...] 300 Georgi Delaney ONDANSETRON ODT 4 MG 10-20 00:00: 00 Yes Georgi Delaney TAKE 1 TABLET BY MOUTH EVERY 12 HOURS FOR 10 DAYS 10-20 00:00: 00 Yes Georgi Delaney TAKE 1 TABLET AT BEDTIME. 10-19 00:00: 00 12-25 00:00 :00 No 8 Georgi Delaney TAKE 1 TABLET 3 TIMES DAILY. - 00:00: 00 12-25 00:00 :00 No 300 Georgi Delaney TAKE 1 TABLET EVERY MORNING. 3- 00:00: 00 12-25 00:00 :00 No 300 Georgi Delaney TAKE 1 TABLET DAILY. 3- 00:00: 00 12-25 00:00 :00 No 8 Georgi Delaney TAKE 1 TABLET DAILY. 3- 00:00: 00 12-25 00:00 :00 No 50 Georgi Delaney TAKE 1 CAPSULE BY MOUTH ONCE DAILY 2-27 00:00: 00 12-25 00:00 :00 No [id number] Georgi Delaney TAKE 1 TABLET 3 TIMES DAILY. 2-17 00:00: 00 12-25 00:00 :00 No 300 Georgi Delaney TAKE 1 TABLET AT BEDTIME. 2-17 00:00: 00 12-25 00:00 :00 No 8 Georgi Delaney TAKE 1 TABLET TWICE A DAY WITH MEALS 2-07 00:00: 00 12-25 00:00 :00 No 500 Georgi Delaney TAKE 1 TABLET EVERY MORNING. 2-03 00:00: 00 12-25 00:00 :00 No 300 Georgi Delaney TAKE 1 TABLET AT BEDTIME. 2-03 00:00: 00 12-25 00:00 :00 No 8 Georgi Delaney TAKE 2 TABLETS 3 TIMES DAILY. 2-03 00:00: 00 12-25 00:00 :00 No 10 Georgimariama Delaney TAKE 1 TABLET 3 TIMES DAILY. 2-03 00:00: 00 12-25 00:00 :00 No 300 Georgi Delaney TAKE 1 TABLET DAILY. 1-31 00:00: 00 12-25 00:00 :00 No 8 Georgimariama Delaney CHLORTHALID ONE 25 MG 1-24 00:00: 00 Yes Georgi Delaney TAKE 1 CAPSULE BY MOUTH ONCE DAILY -24 00:00: 00 12-25 00:00 :00 No [id number] Georgi Delaney USE DIRECTED - 00:00: 00 12-25 00:00 :00 No 68 Georgi Delaney TAKE 1 TABLET AT BEDTIME. 09-04 00:00: 00 12-25 00:00 :00 No 100 Georgi Delaney TAKE 2 TABLETS 3 TIMES DAILY. - 00:00: 00 12-25 00:00 :00 No 10 Georgi Delaney TAKE 1 TABLET TWICE DAILY. 09-04 00:00: 00 12-25 00:00 :00 No 300 Georgi Delaney TAKE 1 TABLET EVERY MORNING. 09-04 00:00: 00 12-25 00:00 :00 No 300 Georgimariama Delaney TAKE 1 TABLET DAILY. 08-30 00:00: 00 12-25 00:00 :00 No 112 Georgi Alex Delaney TAKE 1 TABLET AT BEDTIME. 2021-08 [...] 00:00: 00 12-25 00:00 :00 No 25 Georgimariama Delaney TAKE 1 TABLET TWICE DAILY. 2021-08 00:00: 00 No TAKE 1 TABLET 3 TIMES DAILY. 2021-08 00:00: 00 No TAKE 1 TABLET DAILY. 2021-08 00:00: 00 No TAKE 1 TABLET AT BEDTIME. 2021-08 2 00:00: 00 No Dose Unknown 2021-08 2 00:00: 00 No Dose Unknown 2021-08 2 00:00: 00 No Dose Unknown 2021-08 00:00: 00 No Dose Unknown 2021-08 00:00: 00 No TAKE 1 TABLET BY MOUTH EVERY 8 HOURS NEEDED FOR MUSCLE SPASMS 2021-08 2 00:00: 00 No Dose Unknown 2021-08 2 00:00: 00 No Dose Unknown 2022-1 2-15 [...] No Georgi F Rhett Dose Unknown 2021-08 2 00:00: 00 12-25 00:00 :00 No Georgi F Rhett Dose Unknown 2021-08 00:00: 00 12-25 00:00 :00 No Georig F Rhett TAKE 1 TABLET DAILY. 2021-08 00:00: 00 No TAKE 1 TABLET DAILY. 2021-08 00:00: 00 No TAKE 1 TABLET DAILY. 2021-0816 00:00: 00 12-25 00:00 :00 No Georgi F Rhett TAKE 1 TABLET DAILY. 2021-08 00:00: 00 No 112 TAKE 1 TABLET DAILY. 2021-08 00:00: 00 12-25 00:00 :00 No 112 Georgi Alex Delaney BUPROPION HCL XL 150 MG 2021-08 [...] Rhett Dose Unknown 2-0 8-08 00:00: 00 Yes Georgi F Rhett Dose Unknown 2022-0 8-08 00:00: 00 Yes Georgi F Rhett Dose Unknown 2022-0 8-03 00:00: 00 No Dose Unknown 2022-0 8-03 00:00: 00 No Dose Unknown 2022-0 8-03 00:00: 00 No Dose Unknown 2-0 8 00:00: 00 No Dose Unknown 2-0 8 00:00: 00 Yes Georgi Delaney Wellbutrin XL 300 mg 24 hr tablet, extended release 2021-0 03-14 00:00: 00 No 1mg Trileptal 150 mg tablet 2-0 8 00:00: 00 No 1mg buspirone 10 mg tablet 2021-0 8 00:00: 00 No 1mg Dose Unknown 2021-0 03-14 00:00: 00 No Dose Unknown 2021-0 03-14 00:00: 00 No Dose Unknown 2021-0 03-14 00:00: 00 No Dose Unknown 2021-0 03-14 00:00: 00 No Dose Unknown 2021-0 03-14 00:00: 00 No Dose Unknown 2021-0 03-14 00:00: 00 No TAKE 1 TABLET TWICE DAILY. 2021-0 03-14 00:00: 00 No TAKE 1 TABLET AT BEDTIME. 2021-0 03-14 00:00: 00 No Dose Unknown 2021-0 03-14 00:00: 00 No Dose Unknown 2021-0 03-14 00:00: 00 No Dose Unknown 2021-0 03-14 00:00: 00 No Dose Unknown 2021-0 03-14 00:00: 00 No Dose Unknown 2021-0 03-14 00:00: 00 No Dose Unknown 2021-0 03-14 00:00: 00 No Dose Unknown 2021-0 03-14 00:00: 00 No Wellbutrin XL 300 mg 24 hr tablet, extended release 2021-0 03-14 00:00: 00 No 1mg Trileptal 150 mg tablet 2021-0 03-14 00:00: 00 No 1mg buspirone 10 mg tablet 2021-0 8 00:00: 00 No 1mg Seroquel 100 mg tablet 2021-0 03-14 00:00: 00 No 1mg Dose Unknown 2021-0 03-14 00:00: 00 No Dose Unknown 2021-0 8 00:00: 00 No Dose Unknown 2021-0 8 00:00: 00 No Dose Unknown 2021-0 8 00:00: 00 No Dose Unknown 2022-0 8- 00:00: 00 No Wellbutrin XL 300 mg 24 hr tablet, extended release 2-0 8- 00:00: 00 No 1mg Trileptal 150 mg tablet 2-0 8- 00:00: 00 No 1mg buspirone 10 mg tablet 2-0 8 00:00: 00 No 1mg Dose Unknown 2-0 8- 00:00: 00 No Dose Unknown 2-0 8 00:00: 00 No Dose Unknown 2-0 8 00:00: 00 No Dose Unknown 2-0 8 00:00: 00 No Dose Unknown 2-0 8 00:00: 00 No Dose Unknown 2-0 8 00:00: 00 No Wellbutrin XL 300 mg 24 hr tablet, extended release 2021-0 8 00:00: 00 Yes 1mg Georgi Delaney Trileptal 150 mg tablet 2-0 8- 00:00: 00 Yes 1mg Georgi Delaney buspirone 10 mg tablet 2021-0 8 00:00: 00 Yes 1mg Georgi Delaney Seroquel 100 mg tablet 2021-0 8 00:00: 00 Yes 1mg Georgi F Rhett Dose Unknown 2021-0 8- 00:00: 00 Yes Georgi F Rhett Dose Unknown 2021-0 8 00:00: 00 Yes Georgi F Rhett Dose Unknown 2021-0 8 00:00: 00 Yes Georgi F Rhett Dose Unknown 2021-0 8- 00:00: 00 Yes Georgi F Rhett Dose Unknown 2021-0 8- 00:00: 00 Yes Georgi F Rhett Dose Unknown 2021-0 8 00:00: 00 Yes 300 Georgi F Rhett Dose Unknown 2021-0 8 00:00: 00 Yes 10 Georgi F Rhett Dose Unknown 2021-0 7 00:00: 00 No Dose Unknown 2021-0 7 00:00: 00 No Dose Unknown 2-0 7 00:00: 00 No Dose Unknown 2-0 7 00:00: 00 No Dose Unknown 2021-0 7 00:00: 00 No Dose Unknown 2022-0 7-30 00:00: 00 No Dose Unknown 2022-0 730 [...] Unknown 2022-0 7 00:00: 00 Yes Georgi eDlaney Dose Unknown 2022-0 7 00:00: 00 Yes [...] 7 00:00: 00 No Dose Unknown 2022-0 02-28 00:00: 00 No TAKE 1 TABLET [...] Dose Unknown 2021-0 02-28 00:00: 00 No Seroquel 100 mg [...] 7-19 00:00: 00 No Dose Unknown 2022-0 719 00:00: 00 No Dose Unknown 2022-0 719 00:00: 00 No Dose Unknown 2022-0 719 00:00: 00 No Dose Unknown 2022-0 719 00:00: 00 No Dose Unknown 2022-0 719 00:00: 00 No Wellbutrin XL 300 mg 24 hr tablet, extended release 2-0 02-28 00:00: 00 Yes 1mg Georgi Delaney buspirone 10 mg tablet 2-0 02-28 00:00: 00 Yes 1mg Georgi Delaney Lamictal 25 mg tablet 2021-0 02-28 00:00: 00 Yes 2mg Georgi Delaney Seroquel 100 mg tablet 2021-0 02-28 00:00: 00 Yes 1mg Georgi Delaney Dose Unknown 2022-0 02-28 00:00: 00 Yes Georgi Delaney Dose Unknown 2022-0 02-28 00:00: 00 Yes Georgi Delaney Dose Unknown 2022-0 19 00:00: 00 Yes Georgi Delaney Dose Unknown 2022-0 19 00:00: 00 Yes Georgi Delaney Dose Unknown 2022-0 713 00:00: 00 No [...] 713 00:00: 00 No Dose Unknown 2022-0 7 [...] 7 00:00: 00 No Dose Unknown 2022-0 7-07 00:00: 00 No Dose Unknown 2022-0 02-16 00:00: 00 No Dose Unknown 2022-0 02-16 00:00: 00 No Dose Unknown 2022-0 02-16 00:00: 00 No Dose Unknown 2-0 02-16 00:00: 00 No Dose Unknown 2022-0 02-16 00:00: 00 No Dose Unknown 2022-0 02-16 00:00: 00 Yes Georgi Delaney Dose Unknown 2022-0 02-16 00:00: 00 Yes Georgi Delaney Dose Unknown 2022-0 02-16 00:00: 00 Yes Georgi Delaney Dose Unknown 2-0 02-16 00:00: 00 Yes Georgi Delaney Dose Unknown 2-0 02-16 00:00: 00 Yes Georgi Delaney Dose Unknown 2021-0 02-16 00:00: 00 Yes Georgi Delaney Dose [...] 2-0 02-14 00:00: 00 No Dose Unknown 2-0 02-14 00:00: 00 No Dose Unknown 2-0 02-14 00:00: 00 No Dose Unknown 2022-0 02-14 00:00: 00 No Wellbutrin XL 300 mg 24 hr tablet, extended release 2-0 02-14 00:00: 00 No 1mg buspirone 10 mg tablet 2-0 7 00:00: 00 No 1mg Seroquel 100 mg tablet 2-0 7 00:00: 00 No 1mg Dose Unknown 0 02-14 00:00: 00 No Dose Unknown 0 02-14 00:00: 00 No Dose Unknown 0 02-14 00:00: 00 No Dose Unknown 0 02-14 00:00: 00 No Wellbutrin XL 300 mg 24 hr tablet, extended release 0 02-14 00:00: 00 No 1mg buspirone 10 mg tablet 2021-0 02-14 00:00: 00 No 1mg Seroquel 100 mg tablet 0 02-14 00:00: 00 No 1mg Lamictal 25 mg tablet 0 02-14 00:00: 00 No 1mg Dose Unknown 0 02-14 00:00: 00 No Dose Unknown 0 02-14 00:00: 00 No Dose Unknown 0 02-14 00:00: 00 No Wellbutrin XL 300 mg 24 hr tablet, extended release 02-14 00:00: 00 No 1mg buspirone 10 mg tablet 0 02-14 00:00: 00 No 1mg Seroquel 100 mg tablet 0 02-14 00:00: 00 No 1mg Dose Unknown 0 02-14 00:00: 00 No Dose Unknown 0 02-14 00:00: 00 No Dose Unknown 0 02-14 00:00: 00 No Dose Unknown 0 02-14 00:00: 00 No Wellbutrin XL 300 mg 24 hr tablet, extended release 02-14 00:00: 00 No 1mg buspirone 10 mg tablet 0 02-14 00:00: 00 No 1mg Seroquel 100 mg tablet 02-14 00:00: 00 No 1mg Dose Unknown 0 02-14 00:00: 00 No Dose Unknown 0 02-14 00:00: 00 No Dose Unknown 0 02-14 00:00: 00 No Dose Unknown 0 02-14 00:00: 00 No Wellbutrin XL 300 mg 24 hr tablet, extended release 02-14 00:00: 00 Yes 1mg Georgi Dealney buspirone 10 mg tablet 02-14 00:00: 00 Yes 1mg Georgi Delaney Seroquel 100 mg tablet 2021-0 02-14 00:00: 00 Yes 1mg Georgi Delaney Lamictal 25 mg tablet 2021-0 02-14 00:00: 00 Yes 1mg Georgi Delaney Dose Unknown 2021-0 02-14 00:00: 00 Yes Georgi Delaney Dose Unknown 2021-0 02-14 00:00: 00 Yes Georgi Delaney Dose Unknown 0 02-14 00:00: 00 Yes Georgi Delaney Dose Unknown 2021-0 02-09 00:00: 00 No [...] No Dose Unknown 2021-0 02-09 00:00: 00 Yes Georgi Delaney Dose [...] 112 Georgi Delaney TAKE 1 TABLET DAILY. 2-0 01-18 00:00: 00 No levothyroxi ne 50 mcg tablet 0 01-18 00:00: 00 No 1mcg TAKE 1 TABLET DAILY. 0 - 00:00: 00 No Dose Unknown 0 - 00:00: 00 No chlorthalid one 25 mg tablet 0 01-18 00:00: 00 No 1mg levothyroxi ne 50 mcg tablet 0 - 00:00: 00 No 1mcg chlorthalid one 25 [...] - 00:00: 00 No Dose Unknown 0 12-22 00:00: 00 No spironolact one 100 mg tablet 2021-0 - 00:00: 00 No 1mg ibuprofen 800 mg tablet 0 - 00:00: 00 No 1mg spironolact one 100 mg tablet 2021-0 - 00:00: 00 No 1mg ibuprofen 800 mg tablet 0 -12 00:00: 00 No 1mg spironolact one 100 mg tablet 2021-0 -12 00:00: 00 No 1mg ibuprofen 800 mg tablet 0 -12 00:00: 00 No 1mg spironolact one 100 mg tablet 2021-0 -12 00:00: 00 Yes 1mg Georgi Delaney ibuprofen 800 mg tablet 0 -12 00:00: 00 Yes 1mg Georgi Delaney Wellbutrin XL 300 mg 24 hr tablet, extended release 0 - 00:00: 00 No 1mg Dose Unknown 0 - 00:00: 00 No buspirone 10 mg tablet 2021-0 - 00:00: 00 No 1mg Dose Unknown 0 12-13 00:00: 00 No TAKE 1 TABLET AT BEDTIME. 0 - 00:00: 00 No Dose Unknown 0 12-13 00:00: 00 No Dose Unknown 0 12-13 00:00: 00 No Dose Unknown 0 12-13 00:00: 00 No Wellbutrin XL 300 mg 24 hr tablet, extended release 0 - 00:00: 00 No 1mg Celexa 20 mg tablet 0 - 00:00: 00 No 1mg buspirone 10 mg tablet 0 - 00:00: 00 No 1mg Seroquel 100 mg tablet 0 - 00:00: 00 No 1mg Wellbutrin XL 300 mg 24 hr tablet, extended release 0 12-13 00:00: 00 No 1mg Dose Unknown 0 - 00:00: 00 No buspirone 10 mg tablet 0 - 00:00: 00 No 1mg Seroquel 100 mg tablet 0 12-13 00:00: 00 No 1mg Wellbutrin XL 300 mg 24 hr tablet, extended release 0 - 00:00: 00 No 1mg Dose Unknown 0 - 00:00: 00 No buspirone 10 mg tablet 2021-0 - 00:00: 00 No 1mg Dose Unknown 0 - 00:00: 00 No Wellbutrin XL 300 mg 24 hr tablet, extended release 0 - 00:00: 00 Yes 1mg Georgi Delaney Celexa 20 mg tablet 0 5- 00:00: 00 Yes 1mg Georgi Delaney buspirone 10 mg tablet 2021-0 5- 00:00: 00 Yes 1mg Georgi Delaney Seroquel 100 mg tablet 2021-0 5- 00:00: 00 Yes 1mg Georgi Delaney CITALOPRAM HBR 20 MG 2021-0 5-03 00:00: 00 Yes Georgi Delaney levothyroxi ne 25 mcg tablet 2021-0 -18 00:00: 00 No 1mcg Dose Unknown 2021-0 -18 00:00: 00 No levothyroxi ne 25 mcg tablet 2021-0 -18 00:00: 00 No 1mcg levothyroxi ne 25 mcg tablet 2021-0 -18 00:00: 00 No 1mcg levothyroxi ne 25 mcg tablet 2021-0 18 00:00: 00 No 1mcg levothyroxi ne 25 mcg tablet 2021-0 -18 00:00: 00 Yes 1mcg Georgi Delaney spironolact one 50 mg tablet 0 17 00:00: 00 No 1mg Dose Unknown 0 -17 00:00: 00 No spironolact one 50 mg tablet 0 17 00:00: 00 No 1mg spironolact one 50 mg tablet 0 17 00:00: 00 No 1mg spironolact one 50 mg tablet 0 17 00:00: 00 No 1mg spironolact one 50 mg tablet 0 -17 00:00: 00 Yes 1mg Georgi Delaney metformin ER 500 mg 24 hr tablet,exte nded release 0 14 00:00: 00 No 1mg spironolact one 50 mg tablet 0 14 00:00: 00 No 1mg levothyroxi ne 25 mcg tablet 0 -14 00:00: 00 No 1mcg Dose Unknown 2021-0 4-14 00:00: 00 No Dose Unknown 2021-0 -14 00:00: 00 No Dose Unknown 2021-0 -14 00:00: 00 No Dose Unknown 2021-0 4-14 00:00: 00 No metformin ER 500 mg 24 hr tablet,exte nded release 0 4-14 00:00: 00 No 1mg spironolact one 50 mg tablet 0 -14 00:00: 00 No 1mg levothyroxi ne 25 [...] 00 No 1mg buspirone 10 mg tablet 11-15 00:00: 00 No 1mg Dose Unknown 2022-0 4-05 00:00: 00 No Dose Unknown 2021-0 4-05 00:00: 00 No Dose Unknown 2021-0 4-05 00:00: 00 No Dose Unknown 2021-0 405 00:00: 00 No Celexa 20 mg tablet 2021-0 405 00:00: 00 No 1mg Wellbutrin XL 300 mg 24 hr tablet, extended release 2-0 4-05 00:00: 00 No 1mg buspirone 10 mg tablet 2021-0 4-05 00:00: 00 No 1mg Seroquel 100 mg tablet 2021-0 405 00:00: 00 No 1mg Dose Unknown 2021-0 405 00:00: 00 No Dose Unknown 2021-0 05 00:00: 00 No Dose Unknown 2021-0 05 00:00: 00 No TAKE 1 TABLET AT BEDTIME. 2021-0 405 00:00: 00 No Wellbutrin XL 300 mg 24 hr tablet, extended release 2021-0 405 00:00: 00 No 1mg Dose Unknown 2021-0 405 00:00: 00 No Dose Unknown 2021-0 405 00:00: 00 No Dose Unknown 2021-0 4-05 00:00: 00 No Dose Unknown 2021-0 4-05 00:00: 00 No Dose Unknown 2021-0 405 00:00: 00 No Dose Unknown 2021-0 405 00:00: 00 No Wellbutrin XL 300 mg 24 hr tablet, extended release 2021-0 4-05 00:00: 00 No 1mg buspirone 10 mg tablet 2021-0 4-05 00:00: 00 No 1mg Seroquel 100 mg tablet 2021-0 405 00:00: 00 No 1mg Dose Unknown 2021-0 4-05 00:00: 00 No Dose Unknown 2021-0 4-05 00:00: 00 No Dose Unknown 2021-0 405 00:00: 00 No Dose Unknown 2021-0 4-05 00:00: 00 No Wellbutrin XL 300 [...] Georgi Delaney buspirone 10 mg tablet 2021-0 4-05 00:00: 00 Yes 1mg Georgi Delaney Seroquel 100 mg tablet 2021-0 4-05 00:00: 00 Yes 1mg Georgi Delaney Dose Unknown 2021-0 4-05 00:00: 00 Yes Georgi Delaney Dose Unknown 2-0 4-05 00:00: 00 Yes Georgi Delaney Dose Unknown 2-0 4-05 00:00: [...] 2022-0 2-25 00:00: 00 Yes 1mg Georgi F Rhett Dose Unknown 2022-0 2-25 [...] 2022-0 2-25 00:00: 00 Yes 10 Georgi F Rhett Dose Unknown 2022-0 2-08 00:00: 00 [...] 1mcg Dose Unknown 2-0 2-08 00:00: 00 Yes Georgi Delaney Celexa 20 mg tablet 2-0 2-08 00:00: 00 Yes 1mg Georgi Delaney Dose Unknown 2-0 2-08 00:00: 00 Yes Georgi Delaney Dose Unknown 2022-0 2-08 00:00: 00 Yes Gerogi Delaney Dose Unknown 2022-0 2-08 00:00: 00 [...] tablet, extended release 2022-0 124 00:00: 00 No 1mg Dose Unknown 2-0 124 00:00: 00 No Dose Unknown 2-0 24 00:00: 00 No Dose Unknown 2-0 24 00:00: 00 No Wellbutrin XL 150 mg 24 hr tablet, extended release 2-0 24 00:00: 00 Yes 1mg Georgi Delaney Dose Unknown 2-0 24 00:00: 00 Yes Georgi Delaney Dose Unknown 2-0 24 00:00: 00 Yes Georgi Delaney Dose Unknown 2-0 08-23 00:00: 00 No Wellbutrin XL 150 mg 24 hr tablet, extended release 2022-0 1 00:00: 00 No 1mg Dose Unknown 2-0 111 00:00: 00 No Dose Unknown 2-0 111 00:00: 00 No Dose Unknown 2-0 11 00:00: 00 No Wellbutrin XL 150 mg 24 hr tablet, extended release 2-0 1 00:00: 00 No 1mg Dose Unknown 2-0 111 00:00: 00 No Dose Unknown 2-0 111 00:00: 00 No Dose Unknown 2-0 1 00:00: 00 No Wellbutrin XL 150 mg 24 hr tablet, extended release 2-0 1 00:00: 00 No 1mg Dose Unknown 2-0 [...] 2022-0 1-11 00:00: 00 No Dose Unknown 1- 00:00: 00 No Wellbutrin XL 150 mg 24 hr tablet, extended release - 00:00: 00 Yes 1mg Georgi Delaney Dose Unknown 1- 00:00: 00 Yes Georgi F Rhett Dose Unknown 2020-08 2-20 00:00: 00 No Dose Unknown 2020-08 2- 00:00: 00 No Dose Unknown 2020-08 2 00:00: 00 No Zofran 4 mg tablet 2020-08 2- 00:00: 00 No 1mg Dose Unknown 2020-08 2- 00:00: 00 No omeprazole 40 mg capsule,del ayed release 2020-08- 00:00: 00 No 1mg Zofran 4 mg [...] No omeprazole 40 mg capsule,del ayed release 2020-08- 00:00: 00 No 1mg Zofran 4 mg tablet 2020-08 2- 00:00: 00 Yes 1mg Georgi Delaney Dose Unknown 2020-08 2- 00:00: 00 Yes Georgi Delaney omeprazole 40 mg capsule,del ayed release 2020-08- 00:00: 00 Yes 1mg Georgi Delaney maalox:diph enhydrAMINE :lidocaine 2 % viscous 1:1:1 (FIRST-MOUT HWASH BLM) oral suspension 15 mL 2020-08 21:00: 00 07-27 20:01 :00 No 15mL 15 mL, Oral (Swish & Swallow), ONCE, 1 dose, On Sun07/27/21 at 1500, Routine [facility] methocarbam oL (ROBAXIN) tablet 500 mg 2020-08 19:30: 00 07-27 18:29 :00 No 500mg 500 mg, Oral, ONCE, 1 dose, On Sun07/27/21 at 1330, Routine [facility] ketorolac (TORADOL) injection 30 mg 2020-08 19:30: 00 07-27 18:28 :00 No 30mg 30 mg, Slow IV Push, ONCE, 1 dose, On Sun07/27/21 at 1330, PAWEL
[employer] member approving Restricted medication : Yamil MESSINA [facility] aspirin chewable tablet 324 mg 2020-08 19:30: 00 07-27 19:30 :00 No 324mg 324 mg, Oral, ONCE, 1 dose, On Sun07/27/21 at 1330, Routine [facility] Dose Unknown 2020-08 00:00: 00 [...] 00 No hydroxyzine HCl 50 mg tablet 2020-08- 00:00: 00 No 1mg Dose Unknown 2020-08 00:00: 00 No Dose Unknown 2020-08 00:00: 00 Yes Georgi Delaney hydroxyzine HCl 50 mg tablet 2020-08 00:00: 00 Yes 1mg Georgi Delaney famotidine (PEPCID) 40 mg tablet 2020-08 00:00: 00 02-16 00:00 :00 No [id number] 40mg Take 1 tablet by mouth daily. [facility] ibuprofen 600 mg tablet 2020-08 00:00: 00 02-16 00:00 :00 No [id number] 600mg Take 1 tablet by mouth every 6 (six) hours as needed for Pain (scale 4-6). [facility] methocarbam oL 500 mg tablet 2020-08 00:00: 00 02-16 00:00 :00 No [id number] 500mg Take 1 tablet by mouth 4 (four) times daily. [facility] sertraline 100 mg tablet 2020-08 00:00: [...] 1 dose, On Sun06/24/21 at 2345, [facility] 2020-08 00:00: 00 No [...] Georgi Delaney Zoloft 100 mg tablet 2020-08 0-18 00:00: [...] 1mg Dose Unknown 2020-08 00:00: 00 No sertraline 50 mg tablet 2020-08 0 00:00: 00 No 1mg Dose Unknown 2020-08 00:00: 00 No sertraline 50 mg tablet 2020-08 00:00: 00 Yes 1mg Georgi Delaney Dose Unknown 2020-08 00:00: 00 Yes Georgi Alex Rhett sertraline 50 mg tablet 05-02 00:00: 00 [...] Dose Unknown 05-02 00:00: 00 Yes Georgi Johnson Rhett levonorgest reL (LILETTA) IUD 1 Device 01-05 21:00: 00 01-05 21:00 :00 No [id number] 100 1{jesusc e} [facility] ibuprofen (IBU) tablet 800 mg 01-05 21:00: 00 01-05 21:00 :00 No [id number] 100 800mg [facility] levonorgest rel (LILETTA INTRAUTERIN E) 01-05 00:00: 00 01-05 04:59 :00 No by Intrauteri ne route. [facility] levonorgest rel (LILETTA INTRAUTERIN E) 01-05 00:00: 00 02-16 00:00 :00 No by Intrauteri ne route. [facility] ProAir HFA 90 mcg/actuati on aerosol [...] 2mcg/ac tuation Tessalon Perles 100 mg capsule 5- 00:00: 00 No 1mg Tessalon Perles 100 mg capsule - 00:00: 00 No 1mg ProAir HFA 90 mcg/actuati on aerosol inhaler - 00:00: 00 No 2mcg/ac tuation Tessalon Perles 100 mg capsule 5-03 00:00: 00 No 1mg ProAir HFA 90 mcg/actuati on aerosol inhaler 5- 00:00: 00 Yes 2mcg/ac tuation Georgi F Rhett Tessalon Perles 100 mg capsule 5-03 00:00: 00 Yes 1mg Georgi Alex Delaney mupirocin 2 % topical ointment 11-19 00:00: [...] No known medications No [facility] No known medications No Un k[facility] No known medications No Un kurt it[facility] Immunizations Ordered Immunization Name Filled Immunization Name Date Status Comments Source (Old) [employer] COVID-19 Vaccine Bivalent Booster 12 years and older (OKEEFE CAP) (Alexy-sucrose formulation) (Old) Pfizer-BioNTech COVID-19 Vaccine Bivalent Booster 12 years and older (OKEEFE CAP) (Alexy-sucrose formulation) 2023-03-07 00:00:00 Completed Georgi Delaney (Old) Pfizer-BioNTech COVID-19 Vaccine Bivalent Booster 12 years and older (OKEEFE CAP) (Alexy-sucrose formulation) (Old) Pfizer-BioNTech COVID-19 Vaccine Bivalent Booster 12 years and older (OKEEFE CAP) (Alexy-sucrose formulation) 2023-03-07 00:00:00 Completed Georgi Alex Rhett SARS-COV-2 COVID-19 PFIZER VACCINE 2020-12-02 00:00:00 Completed [facility] SARS-COV-2 COVID-19 PFIZER VACCINE 2020-12-02 00:00:00 Completed [facility] SARS-COV-2 COVID-19 PFIZER VACCINE 2020-12-02 00:00:00 Completed [facility] SARS-COV-2 COVID-19 PFIZER VACCINE 2020-12-02 00:00:00 Completed [facility] SARS-COV-2 COVID-19 PFIZER VACCINE 2020-12-02 00:00:00 Completed [facility] SARS-COV-2 COVID-19 PFIZER VACCINE 2020-12-02 00:00:00 Completed [facility] SARS-COV-2 COVID-19 PFIZER VACCINE 2020-12-02 00:00:00 Completed [facility] SARS-COV-2 COVID-19 PFIZER VACCINE 2020-12-02 00:00:00 Completed [facility] SARS-COV-2 COVID-19 PFIZER VACCINE 2020-12-02 00:00:00 Completed [facility] SARS-COV-2 COVID-19 PFIZER VACCINE 2020-12-02 00:00:00 Completed [facility] SARS-COV-2 COVID-19 PFIZER VACCINE 2020-12-02 00:00:00 Completed [facility] SARS-COV-2 COVID-19 PFIZER VACCINE 2020-12-02 00:00:00 Completed [facility] SARS-COV-2 COVID-19 PFIZER VACCINE 2020-12-02 00:00:00 Completed [facility] SARS-COV-2 COVID-19 PFIZER VACCINE 2020-12-02 00:00:00 Completed [facility] SARS-COV-2 COVID-19 PFIZER VACCINE 2020-12-02 00:00:00 Completed [facility] SARS-COV-2 COVID-19 PFIZER VACCINE 2020-12-02 00:00:00 Completed [facility] SARS-COV-2 COVID-19 PFIZER VACCINE 2020-12-02 00:00:00 Completed [facility] SARS-COV-2 COVID-19 PFIZER VACCINE 2020-12-02 00:00:00 Completed [facility] SARS-COV-2 COVID-19 PFIZER VACCINE 2020-12-02 00:00:00 Completed [facility] SARS-COV-2 COVID-19 PFIZER VACCINE 2020-12-02 00:00:00 Completed [facility] SARS-COV-2 COVID-19 PFIZER VACCINE 2020-12-02 00:00:00 Completed [facility] SARS-COV-2 COVID-19 PFIZER VACCINE 2020-12-02 00:00:00 Completed [facility] SARS-COV-2 COVID-19 PFIZER VACCINE 2020-12-02 00:00:00 Completed [facility] SARS-COV-2 COVID-19 PFIZER VACCINE 2020-12-02 00:00:00 Completed [facility] SARS-COV-2 COVID-19 PFIZER VACCINE 2020-12-02 00:00:00 Completed [facility] SARS-COV-2 COVID-19 PFIZER VACCINE 2020-12-02 00:00:00 Completed [facility] SARS-COV-2 COVID-19 PFIZER VACCINE 2020-12-02 00:00:00 Completed [facility] SARS-COV-2 COVID-19 PFIZER VACCINE 2020-12-02 00:00:00 Completed [facility] SARS-COV-2 COVID-19 PFIZER VACCINE 2020-11-09 00:00:00 Completed [facility] SARS-COV-2 COVID-19 PFIZER VACCINE 2020-11-09 00:00:00 Completed [facility] SARS-COV-2 COVID-19 PFIZER VACCINE 2020-11-09 00:00:00 Completed [facility] SARS-COV-2 COVID-19 PFIZER VACCINE 2020-11-09 00:00:00 Completed [facility] SARS-COV-2 COVID-19 PFIZER VACCINE 2020-11-09 00:00:00 Completed [facility] SARS-COV-2 COVID-19 PFIZER VACCINE 2020-11-09 00:00:00 Completed [facility] SARS-COV-2 COVID-19 PFIZER VACCINE 2020-11-09 00:00:00 Completed [facility] SARS-COV-2 COVID-19 PFIZER VACCINE 2020-11-09 00:00:00 Completed [facility] SARS-COV-2 COVID-19 PFIZER VACCINE 2020-11-09 00:00:00 Completed [facility] SARS-COV-2 COVID-19 PFIZER VACCINE 2020-11-09 00:00:00 Completed [facility] SARS-COV-2 COVID-19 PFIZER VACCINE 2020-11-09 00:00:00 Completed [facility] SARS-COV-2 COVID-19 PFIZER VACCINE 2020-11-09 00:00:00 Completed [facility] SARS-COV-2 COVID-19 PFIZER VACCINE 2020-11-09 00:00:00 Completed [facility] SARS-COV-2 COVID-19 PFIZER VACCINE 2020-11-09 00:00:00 Completed [facility] SARS-COV-2 COVID-19 PFIZER VACCINE 2020-11-09 00:00:00 Completed [facility] SARS-COV-2 COVID-19 PFIZER VACCINE 2020-11-09 00:00:00 Completed [facility] SARS-COV-2 COVID-19 PFIZER VACCINE 2020-11-09 00:00:00 Completed [facility] SARS-COV-2 COVID-19 PFIZER VACCINE 2020-11-09 00:00:00 Completed [facility] SARS-COV-2 COVID-19 PFIZER VACCINE 2020-11-09 00:00:00 Completed [facility] SARS-COV-2 COVID-19 PFIZER VACCINE 2020-11-09 00:00:00 Completed [facility] SARS-COV-2 COVID-19 PFIZER VACCINE 2020-11-09 00:00:00 Completed [facility] SARS-COV-2 COVID-19 PFIZER VACCINE 2020-11-09 00:00:00 Completed [facility] SARS-COV-2 COVID-19 PFIZER VACCINE 2020-11-09 00:00:00 Completed [facility] SARS-COV-2 COVID-19 PFIZER VACCINE 2020-11-09 00:00:00 Completed [facility] SARS-COV-2 COVID-19 PFIZER VACCINE 2020-11-09 00:00:00 Completed [facility] SARS-COV-2 COVID-19 PFIZER VACCINE 2020-11-09 00:00:00 Completed [facility] SARS-COV-2 COVID-19 PFIZER VACCINE 2020-11-09 00:00:00 Completed [facility] SARS-COV-2 COVID-19 PFIZER VACCINE Unknown Completed [facility] SARS-COV-2 COVID-19 PFIZER VACCINE Unknown Completed [facility] SARS-COV-2 COVID-19 PFIZER VACCINE Unknown Completed [facility] SARS-COV-2 COVID-19 PFIZER VACCINE Unknown Completed [facility] SARS-COV-2 COVID-19 PFIZER VACCINE Unknown Completed [facility] SARS-COV-2 COVID-19 PFIZER VACCINE Unknown Completed [facility] SARS-COV-2 COVID-19 PFIZER VACCINE Unknown Completed [facility] SARS-COV-2 COVID-19 PFIZER VACCINE Unknown Completed [facility] SARS-COV-2 COVID-19 PFIZER VACCINE Unknown Completed [facility] SARS-COV-2 COVID-19 PFIZER VACCINE Unknown Completed [facility] SARS-COV-2 COVID-19 PFIZER VACCINE Unknown Completed [facility] SARS-COV-2 COVID-19 PFIZER VACCINE Unknown Completed [facility] SARS-COV-2 COVID-19 PFIZER VACCINE Unknown Completed [facility] SARS-COV-2 COVID-19 PFIZER VACCINE Unknown Completed [facility] SARS-COV-2 COVID-19 PFIZER VACCINE Unknown Completed [facility] SARS-COV-2 COVID-19 PFIZER VACCINE Unknown Completed [facility] SARS-COV-2 COVID-19 PFIZER VACCINE Unknown Completed [facility] SARS-COV-2 COVID-19 PFIZER VACCINE Unknown Completed [facility] SARS-COV-2 COVID-19 PFIZER VACCINE Unknown Completed [facility] SARS-COV-2 COVID-19 PFIZER VACCINE Unknown Completed [facility] SARS-COV-2 COVID-19 PFIZER VACCINE Unknown Completed [facility] SARS-COV-2 COVID-19 PFIZER VACCINE Unknown Completed [facility] SARS-COV-2 COVID-19 PFIZER VACCINE Unknown Completed [facility] SARS-COV-2 COVID-19 PFIZER VACCINE Unknown Completed [facility] SARS-COV-2 COVID-19 PFIZER VACCINE Unknown Completed [facility] SARS-COV-2 COVID-19 PFIZER VACCINE Unknown Completed [facility] SARS-COV-2 COVID-19 PFIZER VACCINE Unknown Completed [facility] SARS-COV-2 COVID-19 PFIZER VACCINE Unknown Completed [facility] SARS-COV-2 COVID-19 PFIZER VACCINE Unknown Completed [facility] SARS-COV-2 COVID-19 PFIZER VACCINE Unknown Completed [facility] SARS-COV-2 COVID-19 PFIZER VACCINE Unknown Completed [facility] SARS-COV-2 COVID-19 PFIZER VACCINE Unknown Completed [facility] SARS-COV-2 COVID-19 PFIZER VACCINE Unknown Completed [facility] SARS-COV-2 COVID-19 PFIZER VACCINE Unknown Completed [facility] SARS-COV-2 COVID-19 PFIZER VACCINE Unknown Completed [facility] SARS-COV-2 COVID-19 PFIZER VACCINE Unknown Completed [facility] COVID-19 Bivalent vaccine PFIZER 12+ Unknown Completed Rolanda Howell ybold - External COVID-19 Bivalent vaccine PFIZER 12+ Unknown Completed Rolanda Howell ybold - External COVID-19 Bivalent vaccine PFIZER 12+ Unknown Completed Rolanda Howell ybold - External COVID-19 Bivalent vaccine PFIZER 12+ Unknown Completed Rolanda Howell ybold - External COVID-19 Bivalent vaccine PFIZER 12+ Unknown Completed Rolanda Howell ybold - External COVID-19 Bivalent vaccine PFIZER 12+ Unknown Completed Rolanda Howell ybold - External COVID-19 Bivalent vaccine PFIZER 12+ Unknown Completed Rolanda Howell ybold - External COVID-19 Bivalent vaccine PFIZER 12+ Unknown Completed Rolanda Howell ybold - External Vital Signs Vital Name Observation Time Observation Value Comments S ource Systolic blood pressure 2024-06-26 20:47:00 118 mm[Hg] Rolanda Covarrubiaso ld - External Diastolic blood pressure 2024-06-26 20:47:00 68 mm[Hg] Rolanda Seybo ld - External Heart rate 2024-06-26 20:47:00 98 /min Kelse y Seybold - External Body temperature 2024-06-26 20:47:00 36.17 Cele Rolanda Seybold - External Respiratory rate 2024-06-26 20:47:00 15 /min Rolanda Seybold - External Body height 2024-06-26 20:47:00 144.8 cm Reina ey Seybold - External Body weight 2024-06-26 20:47:00 138.801 kg Reina ey Seybold - External BMI 2024-06-26 20:47:00 66.22 kg/m2 Reina ey Seybold - External Systolic blood pressure 2024-06-10 19:03:00 110 mm[Hg] Rolanda Seybo ld - External Diastolic blood pressure 2024-06-10 19:03:00 76 mm[Hg] Rolanda Seybo ld - External Heart rate 2024-06-10 19:03:00 89 /min Kelse y Seybold - External Respiratory rate 2024-06-10 19:03:00 18 /min Rolanda Seybold - External Body height 2024-06-10 19:03:00 144.8 cm Reina ey Seybold - External Body weight 2024-06-10 19:03:00 130.636 kg Reina ey Seybold - External BMI 2024-06-10 19:03:00 62.32 kg/m2 Reina ey Seybold - External Oxygen saturation in Arterial blood by Pulse oximetry 2024-06-10 19:03:00 98 /min Rolanda Seybo ld - External Systolic blood pressure 2024-05-27 19:53:00 120 mm[Hg] Rolanda Seybo ld - External Diastolic blood pressure 2024-05-27 19:53:00 78 mm[Hg] Rolanda Seybo ld - External Heart rate 2024-05-27 19:53:00 108 /min Kelse y Seybold - External Body temperature 2024-05-27 19:53:00 36.83 Cele Rolanda Seybold - External Respiratory rate 2024-05-27 19:53:00 15 /min Rolanda Seybold - External Body height 2024-05-27 19:53:00 144.8 cm Reina ey Seybold - External Body weight 2024-05-27 19:53:00 130.636 kg Reina ey Seybold - External BMI 2024-05-27 19:53:00 62.32 kg/m2 Reina ey Seybold - External Body height 2024-04-17 18:48:00 144.8 cm Reina ey Seybold - External Body weight 2024-04-17 18:48:00 123.378 kg Reina ey Seybold - External BMI 2024-04-17 18:48:00 58.86 kg/m2 Reina ey Seybold - External Systolic blood pressure 2024-04-03 20:04:00 122 mm[Hg] Rolanda Seybo ld - External Diastolic blood pressure 2024-04-03 20:04:00 74 mm[Hg] Rolanda Seybo ld - External Heart rate 2024-04-03 20:04:00 88 /min Kelse y Seybold - External Body temperature 2024-04-03 20:04:00 36.72 Cele Rolanda Seybold - External Respiratory rate 2024-04-03 20:04:00 18 /min Rolanda Seybold - External Body height 2024-04-03 20:04:00 144.8 cm Reina ey Seybold - External Body weight 2024-04-03 20:04:00 125.703 kg Reina ey Seybold - External BMI 2024-04-03 20:04:00 59.97 kg/m2 Reina ey Seybold - External Oxygen saturation in Arterial blood by Pulse oximetry 2024-04-03 20:04:00 98 /min Rolanda Seybo ld - External Heart rate 2024-03-04 19:21:00 75 /min Kelse y Seybold - External Body temperature 2024-03-04 19:21:00 36.28 Cele Rolanda Seybold - External Respiratory rate 2024-03-04 19:21:00 16 /min Rolanda Seybold - External Body height 2024-03-04 19:21:00 144.8 cm Reina ey Seybold - External Body weight 2024-03-04 19:21:00 123.378 kg Reina ey Seybold - External BMI 2024-03-04 19:21:00 58.86 kg/m2 Reina ey Seybold - External Systolic blood pressure 2024-03-04 19:21:00 120 mm[Hg] Rolanda Seybo ld - External Diastolic blood pressure 2024-03-04 19:21:00 72 mm[Hg] Rolanda Seybo ld - External Systolic blood pressure 2024-02-05 20:12:00 120 mm[Hg] Roladna Seybo ld - External Diastolic blood pressure 2024-02-05 20:12:00 80 mm[Hg] Rolanda Seybo ld - External Heart rate 2024-02-05 20:12:00 88 /min Lane y Seybold - External Body temperature 2024-02-05 20:12:00 36.61 Cele Rolanda Seybold - External Respiratory rate 2024-02-05 20:12:00 16 /min Rolanda Seybold - External Body height 2024-02-05 20:12:00 144.8 cm Reina ey Seybold - External Body weight 2024-02-05 20:12:00 120.203 kg Reina ey Seybold - External BMI 2024-02-05 20:12:00 57.35 kg/m2 Reina ey Seybold - External Systolic blood pressure 2023-12-26 14:03:00 134 mm[Hg] [facility] Diastolic blood pressure 2023-12-26 14:03:00 74 mm[Hg] [facility] Heart rate 2023-12-26 14:03:00 76 /[facility] 2023-12-26 14:03:00 36.33 Cele [facility] Respiratory rate 2023-12-26 14:03:00 18 /min [facility] Body weight 2023-12-26 14:03:00 119.75 kg [facility] BMI 2023-12-26 14:03:00 53.32 kg/m2 [facility] Systolic blood pressure 2023-12-25 14:23:00 119 mm[Hg] [facility] Diastolic blood pressure 2023-12-25 14:23:00 79 mm[Hg] [facility] Heart rate 2023-12-25 14:23:00 96 /min Unive [facility] Respiratory rate 2023-12-25 14:23:00 18 /min [facility] Body height 2023-12-25 14:23:00 149.9 cm Univ [facility] Body weight 2023-12-25 14:23:00 118.706 kg Univ [facility] BMI 2023-12-25 14:23:00 52.86 kg/m2 [facility] Oxygen saturation in Arterial blood by Pulse oximetry 2023-12-25 14:23:00 98 /min [facility] Systolic blood pressure 2023-11-29 04:39:00 154 mm[Hg] [facility] Diastolic blood pressure 2023-11-29 04:39:00 113 mm[Hg] [facility] Heart rate 2023-11-29 04:39:00 82 /min Unive [facility] Body temperature 2023-11-29 04:39:00 37.28 Cele [facility] Respiratory rate 2023-11-29 04:39:00 18 /min [facility] Body height 2023-11-29 04:39:00 149.9 cm [facility] Body weight 2023-11-29 04:39:00 113.399 kg [facility] BMI 2023-11-29 04:39:00 50.49 kg/m2 [facility] Oxygen saturation in Arterial blood by Pulse oximetry 2023-11-29 04:39:00 100 /min [facility] Systolic blood pressure 2023-11-01 13:26:00 126 mm[Hg] [facility] Diastolic blood pressure 2023-11-01 13:26:00 84 mm[Hg] [facility] Heart rate 2023-11-01 13:26:00 74 /min Unive [facility] Respiratory rate 2023-11-01 13:26:00 18 /min [facility] Body height 2023-11-01 13:26:00 147.3 cm Univ [facility] Body weight 2023-11-01 13:26:00 119.84 kg [facility] BMI 2023-11-01 13:26:00 55.22 kg/m2 [facility] Oxygen saturation in Arterial blood by Pulse oximetry 2023-11-01 13:26:00 98 /min [facility] Systolic blood pressure 2023-10-17 07:43:00 96 mm[Hg] [facility] Diastolic blood pressure 2023-10-17 07:43:00 53 mm[Hg] [facility] Heart rate 2023-10-17 07:43:00 66 /min Unive [facility] Body temperature 2023-10-17 07:43:00 36.5 Cele [facility] Oxygen saturation in Arterial blood by Pulse oximetry 2023-10-17 07:43:00 97 /min [facility] Respiratory rate 2023-10-17 05:50:00 16 /min [facility] Body height 2023-10-17 05:50:00 147.3 cm [facility] Body weight 2023-10-17 05:50:00 120.657 kg [facility] BMI 2023-10-17 05:50:00 55.59 kg/m2 [facility] Systolic blood pressure 2023-09-18 20:56:00 110 mm[Hg] [facility] Diastolic blood pressure 2023-09-18 20:56:00 76 mm[Hg] [facility] Heart rate 2023-09-18 20:56:00 76 /[facility] 2023-09-18 20:56:00 147.3 cm Univ [facility] Body weight 2023-09-18 20:56:00 121.882 kg [facility] BMI 2023-09-18 20:56:00 56.16 kg/m2 Univ [facility] Oxygen saturation in Arterial blood by Pulse oximetry 2023-09-18 20:56:00 97 /min [facility] Systolic blood pressure 2023-08-28 17:17:00 132 mm[Hg] [facility] Diastolic blood pressure 2023-08-28 17:17:00 89 mm[Hg] [facility] Heart rate 2023-08-28 17:17:00 71 /min Unive [facility] Oxygen saturation in Arterial blood by Pulse oximetry 2023-08-28 17:17:00 100 /min [facility] Body temperature 2023-08-28 17:16:00 36.28 Cele [facility] Respiratory rate 2023-08-28 17:16:00 18 /min [facility] Body height 2023-08-28 17:16:00 147.3 cm [facility] Body weight 2023-08-28 17:16:00 123.242 kg [facility] BMI 2023-08-28 17:16:00 56.79 kg/m2 [facility] Systolic blood pressure 2023-05-24 13:14:00 135 mm[Hg] [facility] Diastolic blood pressure 2023-05-24 13:14:00 80 mm[Hg] [facility] Heart rate 2023-05-24 13:14:00 81 /min Unive [facility] Respiratory rate 2023-05-24 13:14:00 18 /min [facility] Body height 2023-05-24 13:14:00 147.3 cm [facility] Body weight 2023-05-24 13:14:00 126.871 kg [facility] BMI 2023-05-24 13:14:00 58.46 kg/m2 [facility] Oxygen saturation in Arterial blood by Pulse oximetry 2023-05-24 13:14:00 99 /min [facility] Heart rate 2023-04-21 04:53:00 67 /min Unive [facility] Body temperature 2023-04-21 04:53:00 36.61 Cele [facility] Oxygen saturation in Arterial blood by Pulse oximetry 2023-04-21 04:53:00 99 /min [facility] Systolic blood pressure 2023-04-21 04:00:00 104 mm[Hg] [facility] Diastolic blood pressure 2023-04-21 04:00:00 57 mm[Hg] [facility] Respiratory rate 2023-04-21 00:26:00 20 /min [facility] Body height 2023-04-21 00:26:00 144.8 cm [facility] Body weight 2023-04-21 00:26:00 126.1 kg [facility] BMI 2023-04-21 00:26:00 60.16 kg[facility]m2 [facility] 2023-03-19 19:10:00 137 mm[Hg] [facility] Diastolic blood pressure 2023-03-19 19:10:00 88 mm[Hg] [facility] Heart rate 2023-03-19 19:10:00 93 /min [facility] 2023-03-19 19:10:00 18 /min [facility] Body height 2023-03-19 19:10:00 147.3 cm [facility] Body weight 2023-03-19 19:10:00 127.914 kg [facility] BMI 2023-03-19 19:10:00 58.94 kg/m2 [facility] Oxygen saturation in Arterial blood by Pulse oximetry 2023-03-19 19:10:00 98 /min [facility] Systolic blood pressure 2023-02-16 21:12:00 157 mm[Hg] [facility] Diastolic blood pressure 2023-02-16 21:12:00 95 mm[Hg] [facility] Heart rate 2023-02-16 21:12:00 95 /min [facility] Body height 2023-02-16 21:12:00 147.3 cm [facility] 2023-02-16 21:12:00 132.224 kg [facility] BMI 2023-02-16 21:12:00 60.92 kg/m2 [facility] Oxygen [facility] in Arterial blood by Pulse oximetry 2023-02-16 21:12:00 98 /min [facility] Heart rate 2021-07-27 21:30:00 62 /min [facility] Res[facility] 2021-07-27 21:30:00 22 /min [facility] Oxygen saturation in Arterial blood by Pulse oximetry 2021-07-27 21:30:00 95 /min [facility] Systolic blood pressure 2021-07-27 21:25:00 137 mm[Hg] [facility] Diastolic blood pressure 2021-07-27 21:25:00 77 mm[Hg] [facility] Body temperature 2021-07-27 18:35:24 36.78 Cele [facility] Body height 2021-07-27 18:02:00 147.3 cm [facility] Body weight 2021-07-27 18:02:00 124.739 kg [facility] BMI 2021-07-27 18:02:00 57.48 kg/m2 [facility] Systolic blood pressure 2021-06-25 05:00:00 134 mm[Hg] [facility] Diastolic blood pressure 2021-06-25 05:00:00 60 mm[Hg] [facility] Heart rate 2021-06-25 05:00:00 78 /min [facility] Respiratory rate 2021-06-25 05:00:00 27 /min [facility] Oxygen saturation in Arterial blood by Pulse oximetry 2021-06-25 05:00:00 97 /min [facility] Body temperature 2021-06-25 04:16:00 36.94 Cele [facility] Body height 2021-06-25 04:16:00 147.3 cm [facility] Body weight 2021-06-25 04:16:00 127.007 kg [facility] BMI 2021-06-25 04:16:00 58.52 kg/m2 [facility] Systolic blood pressure 2021-02-17 19:29:00 124 mm[Hg] [facility] Diastolic blood pressure 2021-02-17 19:29:00 88 mm[Hg] [facility] Heart rate 2021-02-17 19:29:00 89 /min [facility] Respiratory rate 2021-02-17 19:29:00 18 /min [facility] Body weight 2021-02-17 19:29:00 126.281 kg [facility] BMI 2021-02-17 19:29:00 56.23 kg/m2 Univ [facility] Systolic blood pressure 2021-01-05 19:16:00 132 mm[Hg] [facility] Diastolic blood pressure 2021-01-05 19:16:00 88 mm[Hg] [place] o [facility] Heart rate 2021-01-05 19:16:00 89 /min [facility] Body temperature 2021-01-05 19:16:00 37.28 Cele [facility] Respiratory rate 2021-01-05 19:16:00 18 /min [facility] Body height 2021-01-05 19:16:00 149.9 cm [facility] Body weight 2021-01-05 19:16:00 125.51 kg [facility] BMI 2021-01-05 19:16:00 55.89 kg/m2 [facility] Systolic blood pressure 2020-12-07 19:42:00 124 mm[Hg] [facility] Diastolic blood pressure 2020-12-07 19:42:00 86 mm[Hg] [facility] Heart rate 2020-12-07 19:42:00 89 /min [facility] Respiratory rate 2020-12-07 19:42:00 19 /min [facility] Body height 2020-12-07 19:42:00 152.4 cm [facility] Body weight 2020-12-07 19:42:00 127.551 kg [facility] BMI 2020-12-07 19:42:00 54.92 kg/m2 [facility] [...] Systolic blood pressure 2023-12-26 14:03:00 134 mm[Hg] [facility] Diastolic blood pressure 2023-12-26 14:03:00 74 mm[Hg] [facility] Heart rate 2023-12-26 14:03:00 76 /min [facility] Body temperature 2023-12-26 14:03:00 36.33 Cele [facility] Respiratory rate 2023-12-26 14:03:00 18 /min [facility] Body weight 2023-12-26 14:03:00 119.75 kg [facility] BMI 2023-12-26 14:03:00 53.32 kg/m2 [facility] Body height 2023-12-25 14:23:00 149.9 cm [facility] Oxygen saturation in Arterial blood by Pulse oximetry 2023-12-25 14:23:00 98 /min [facility] Systolic blood pressure 2023-12-19 14:08:00 112 mm[Hg] [facility] Diastolic blood pressure 2023-12-19 14:08:00 79 mm[Hg] [facility] Heart rate 2023-12-19 14:08:00 77 /[facility] 2023-12-19 14:08:00 20 /min [facility] Body height 2023-12-19 14:08:00 149.9 cm [facility] Body weight 2023-12-19 14:08:00 116.892 kg [facility] BMI 2023-12-19 14:08:00 52.05 kg/m2 [facility] Systolic blood pressure 2023-12-05 13:43:00 112 mm[Hg] [facility] Diastolic blood pressure 2023-12-05 13:43:00 80 mm[Hg] [facility] Heart rate 2023-12-05 13:43:00 73 /[facility] 2023-12-05 13:43:00 20 /min [facility] Body height 2023-12-05 13:43:00 149.9 cm [facility] Body weight 2023-12-05 13:43:00 117.572 kg [facility] BMI 2023-12-05 13:43:00 52.35 kg/m2 [facility] Body temperature 2023-11-29 04:39:00 37.28 Cele [facility] Oxygen saturation in Arterial blood by Pulse oximetry 2023-11-29 04:39:00 100 /min [facility] BP Systolic 2023-11-06 10:25:00 131 mm[Hg] Lennox Delaney BP Diastolic 2023-11-06 10:25:00 84 mm[Hg] Oscar Delaney Weight Measured 2023-11-06 10:25:00 263.60 pounds Georgi Delaney Height Measured 2023-11-06 10:25:00 60.16 inches Georgi Delaney Body Temperature 2023-11-06 10:25:00 98.40 degrees Georgi Delaney Heart Rate 2023-11-06 10:25:00 109.00 /min Lennox Delaney Respiratory Rate 2023-11-06 10:25:00 19.00 /min Georgi Delaney Systolic blood pressure 2023-11-01 13:26:00 126 mm[Hg] [facility] Diastolic blood pressure 2023-11-01 13:26:00 84 mm[Hg] [facility] Heart rate 2023-11-01 13:26:00 74 /min [facility] 2023-11-01 13:26:00 18 /min [facility] Body height 2023-11-01 13:26:00 147.3 cm [facility] Body weight 2023-11-01 13:26:00 119.84 kg [facility] BMI 2023-11-01 13:26:00 55.22 kg/m2 [facility] Oxygen saturation in Arterial blood by Pulse oximetry 2023-11-01 13:26:00 98 /min [place] o [facility] Systolic blood pressure 2023-10-31 13:11:00 115 mm[Hg] [place] o [facility] Diastolic blood pressure 2023-10-31 13:11:00 78 mm[Hg] [facility] Heart rate 2023-10-31 13:11:00 86 /min [facility] Respiratory rate 2023-10-31 13:11:00 18 /min [facility] Body height 2023-10-31 13:11:00 147.3 cm Jennie [...] Systolic blood pressure 2023-10-17 07:43:00 96 mm[Hg] [facility] Diastolic blood pressure 2023-10-17 07:43:00 53 mm[Hg] [facility] Heart rate 2023-10-17 07:43:00 66 /min [facility] Body temperature 2023-10-17 07:43:00 36.5 Cele [facility] Oxygen saturation in Arterial blood by Pulse oximetry 2023-10-17 07:43:00 97 /min [facility] Respiratory rate 2023-10-17 05:50:00 16 /min [facility] Body height 2023-10-17 05:50:00 147.3 cm [facility] Body weight 2023-10-17 05:50:00 120.657 kg [facility] BMI 2023-10-17 05:50:00 55.59 kg/m2 Univ [facility] Systolic blood pressure 2023-10-15 14:41:00 136 mm[Hg] [facility] o [facility] Diastolic blood pressure 2023-10-15 14:41:00 90 mm[Hg] [place] o [facility] Heart rate 2023-10-15 14:41:00 89 /min [facility] 2023-10-15 14:41:00 18 /min [facility] Body height 2023-10-15 14:41:00 147.3 cm Univ [facility] Body weight 2023-10-15 14:41:00 119.069 kg [facility] BMI 2023-10-15 14:41:00 54.86 kg/m2 [facility] BP Systolic 2023-10-01 17:15:00 119 mm[Hg] Step hen Alex Delaney BP Diastolic 2023-10-01 17:15:00 87 mm[Hg] Oscar phen Alex Delaney Weight Measured 2023-10-01 17:15:00 265.40 pounds Georgimariama Delaney Height Measured 2023-10-01 17:15:00 60.16 inches Georgi Alex Delaney Body Temperature 2023-10-01 17:15:00 98.20 degrees Georgi Alex Rhett Heart Rate 2023-10-01 17:15:00 71.00 /min Jane en F Rhett Respiratory Rate 2023-10-01 17:15:00 17.00 /min Georgi Alex [place] Systolic blood pressure 2023-09-18 20:56:00 110 mm[Hg] [place] o [facility] Diastolic blood pressure 2023-09-18 20:56:00 76 mm[Hg] [place] o [facility] Heart rate 2023-09-18 20:56:00 76 /min [facility] Body height 2023-09-18 20:56:00 147.3 cm [facility] Body weight 2023-09-18 20:56:00 121.882 kg [facility] BMI 2023-09-18 20:56:00 56.16 kg/m2 [facility] Oxygen saturation in Arterial blood by Pulse oximetry 2023-09-18 20:56:00 97 /min [facility] BP Systolic 2023-09-17 16:16:00 119 mm[Hg] Step hen F Rhett BP Diastolic 2023-09-17 16:16:00 86 mm[Hg] Oscar phen F Rhett Weight Measured 2023-09-17 16:16:00 264.00 pounds Georgi Delaney Height Measured 2023-09-17 16:16:00 60.16 inches Georgi Delaney Body Temperature 2023-09-17 16:16:00 98.00 degrees Georgi Delaney Heart Rate 2023-09-17 16:16:00 85.00 /min Jane en F [place] Respiratory Rate 2023-09-17 16:16:00 18.00 /min Georgi F Rhett Systolic blood pressure 2023-09-17 14:29:00 105 mm[Hg] [facility] Diastolic blood pressure 2023-09-17 14:29:00 74 mm[Hg] [facility] Heart rate 2023-09-17 14:29:00 81 /min [facility] Respiratory rate 2023-09-17 14:27:00 18 /min [facility] Body height 2023-09-17 14:27:00 147.3 cm [facility] Body weight 2023-09-17 14:27:00 119.614 kg [facility] BMI 2023-09-17 14:27:00 55.11 kg/m2 [facility] BP Systolic 2023-09-03 17:04:00 133 mm[Hg] Step hen F Rhett BP Diastolic 2023-09-03 17:04:00 86 mm[Hg] Oscar phen F Rhett Weight Measured 2023-09-03 17:04:00 275.40 pounds Georgi Delaney Height Measured 2023-09-03 17:04:00 60.16 inches Georgi Delaney Body Temperature 2023-09-03 17:04:00 98.00 degrees Georgi F Rhett Heart Rate 2023-09-03 17:04:00 97.00 /min Jane en F Rhett Respiratory Rate 2023-09-03 17:04:00 19.00 /min Georgi Delaney Systolic blood pressure 2023-08-28 17:17:00 132 mm[Hg] [facility] Diastolic blood pressure 2023-08-28 17:17:00 89 mm[Hg] [facility] Heart rate 2023-08-28 17:17:00 71 /min [facility] Oxygen saturation in Arterial blood by Pulse oximetry 2023-08-28 17:17:00 100 /min [facility] Body temperature 2023-08-28 17:16:00 36.28 Cele [facility] Respiratory rate 2023-08-28 17:16:00 18 /min [facility] Body height 2023-08-28 17:16:00 147.3 cm [facility] Body weight 2023-08-28 17:16:00 123.242 kg [facility] BMI 2023-08-28 17:16:00 56.79 kg/m2 [facility] Systolic blood pressure 2023-07-23 14:45:00 116 mm[Hg] [facility] Diastolic blood pressure 2023-07-23 14:45:00 81 mm[Hg] [facility] Heart rate 2023-07-23 14:45:00 80 /min [facility] Respiratory rate 2023-07-23 14:45:00 18 /min [facility] Body height 2023-07-23 14:45:00 147.3 cm [facility] Body weight 2023-07-23 14:45:00 125.7 kg [facility] BMI 2023-07-23 14:45:00 57.92 kg/m2 [facility] Systolic blood pressure 2023-07-18 14:01:00 105 mm[Hg] [facility] Diastolic blood pressure 2023-07-18 14:01:00 61 mm[Hg] [facility] Heart rate 2023-07-18 14:01:00 80 /min [facility] Respiratory rate 2023-07-18 14:01:00 18 /min [facility] Body height 2023-07-18 14:01:00 147.3 cm [facility] Body weight 2023-07-18 14:01:00 125.737 kg [facility] BMI 2023-07-18 14:01:00 57.93 kg/m2 [facility] BP Systolic 2023-07-16 17:51:00 124 mm[Hg] Lennox hen Alex Delaney BP Diastolic 2023-07-16 17:51:00 81 mm[Hg] Oscar Delaney Weight Measured 2023-07-16 17:51:00 278.00 pounds Georgi Delaney Height Measured 2023-07-16 17:51:00 60.16 inches Georgi Delaney Body Temperature 2023-07-16 17:51:00 98.40 degrees Georgi Delaney Heart Rate 2023-07-16 17:51:00 67.00 /min Jane Delaney Respiratory Rate 2023-07-16 17:51:00 17.00 /min Georgi Johnson Rhett Systolic blood pressure 2023-07-04 14:56:00 132 mm[Hg] [facility] Diastolic blood pressure 2023-07-04 14:56:00 90 mm[Hg] [facility] Heart rate 2023-07-04 14:56:00 90 /min [facility] Respiratory rate 2023-07-04 14:56:00 18 /min [facility] Body height 2023-07-04 14:56:00 147.3 cm [facility] Body weight 2023-07-04 14:56:00 124.286 kg [facility] BMI 2023-07-04 14:56:00 57.27 kg/m2 [facility] Systolic blood pressure 2023-06-20 14:47:00 109 mm[Hg] [facility] Diastolic blood pressure 2023-06-20 14:47:00 57 mm[Hg] [facility] Heart rate 2023-06-20 14:47:00 81 /min [facility] Respiratory rate 2023-06-20 14:47:00 18 /min [facility] Body height 2023-06-20 14:47:00 147.3 cm [facility] Body weight 2023-06-20 14:47:00 125.646 kg [facility] BMI 2023-06-20 14:47:00 57.89 kg/m2 [facility] BP Systolic 2023-06-18 17:47:00 135 mm[Hg] Step hen F [place] BP Diastolic 2023-06-18 17:47:00 87 mm[Hg] Oscar phen F Rhett Weight Measured 2023-06-18 17:47:00 279.40 pounds Georgi F Rhett Height Measured 2023-06-18 17:47:00 60.16 inches Georgi F Rhett Body Temperature 2023-06-18 17:47:00 98.30 degrees Georgi F [place] Heart Rate 2023-06-18 17:47:00 98.00 /min Jane en F [place] Respiratory Rate 2023-06-18 17:47:00 19.00 /min Georgi F [place] Systolic blood pressure 2023-06-06 13:38:00 130 mm[Hg] [facility] Diastolic blood pressure 2023-06-06 13:38:00 87 mm[Hg] [facility] o [facility] Heart rate 2023-06-06 13:38:00 83 /min [facility] Respiratory rate 2023-06-06 13:38:00 18 /min [facility] Body height 2023-06-06 13:38:00 147.3 cm [facility] Body weight 2023-06-06 13:38:00 126.009 kg [facility] BMI 2023-06-06 13:38:00 58.06 kg/m2 [facility] BP Systolic 2023-05-30 17:42:00 130 mm[Hg] Step hen F Rhett BP Diastolic 2023-05-30 17:42:00 89 mm[Hg] Oscar phen F Rhett Weight Measured 2023-05-30 17:42:00 278.60 pounds Georgi F Rhett Height Measured 2023-05-30 17:42:00 60.16 inches Georgi F Rhett Body Temperature 2023-05-30 17:42:00 98.20 degrees Georgi F Rhett Heart Rate 2023-05-30 17:42:00 90.00 /min Jane en Alex Delaney Respiratory Rate 2023-05-30 17:42:00 19.00 /min Georgi Delaney Oxygen saturation in Arterial blood by Pulse oximetry 2023-05-24 13:14:00 99 /min [place] o [facility] Weight Measured 2023-05-15 17:46:00 278.20 pounds Georgi Delaney Height Measured 2023-05-15 17:46:00 60.16 inches Georgi Delaney Body Temperature 2023-05-15 17:46:00 98.30 degrees Georgi Delaney Heart Rate 2023-05-15 17:46:00 83.00 /min Jane en F Rhett Respiratory Rate 2023-05-15 17:46:00 17.00 /min Georgi Delaney BP Systolic 2023-05-15 17:46:00 122 mm[Hg] Step hen Alex Delaney BP Diastolic 2023-05-15 17:46:00 77 mm[Hg] Oscar phen Alex [place] Systolic blood pressure 2023-05-09 13:20:00 128 mm[Hg] [place] o [facility] Diastolic blood pressure 2023-05-09 13:20:00 85 mm[Hg] [facility] Heart rate 2023-05-09 13:20:00 74 /min [facility] Respiratory rate 2023-05-09 13:20:00 18 /min [facility] Body height 2023-05-09 13:20:00 144.8 cm [facility] Body weight 2023-05-09 13:20:00 124.603 kg [facility] BMI 2023-05-09 13:20:00 59.44 kg/m2 [facility] BP Systolic 2023-05-08 11:24:00 116 mm[Hg] Step hen Alex Delaney BP Diastolic 2023-05-08 11:24:00 81 mm[Hg] Oscar phen F Rhett Weight Measured 2023-05-08 11:24:00 275.00 pounds Georgi Delaney Height Measured 2023-05-08 11:24:00 60.16 inches Georgi Delaney Body Temperature 2023-05-08 11:24:00 97.60 degrees Georgi Delaney Heart Rate 2023-05-08 11:24:00 76.00 /min Jane Delaney Respiratory Rate 2023-05-08 11:24:00 20.00 /min Georgi Delaney Systolic blood pressure 2023-04-25 13:25:00 113 mm[Hg] [facility] Diastolic blood pressure 2023-04-25 13:25:00 85 mm[Hg] [facility] Heart rate 2023-04-25 13:25:00 71 /min [facility] Respiratory rate 2023-04-25 13:25:00 18 /min [facility] Body height 2023-04-25 13:25:00 144.8 cm [facility] Body weight 2023-04-25 13:25:00 126.463 kg [facility] BMI 2023-04-25 13:25:00 60.33 kg/m2 [facility] Body temperature 2023-04-21 04:53:00 36.61 Cele [facility] Oxygen saturation in Arterial blood by Pulse oximetry 2023-04-21 04:53:00 99 /min [facility] Systolic blood pressure 2023-04-04 14:18:00 116 mm[Hg] [facility] Diastolic blood pressure 2023-04-04 14:18:00 73 mm[Hg] [facility] Heart rate 2023-04-04 14:18:00 71 /min [facility] Respiratory rate 2023-04-04 14:09:00 18 /min [facility] Body height 2023-04-04 14:09:00 147.3 cm [facility] Body weight 2023-04-04 14:09:00 127.053 kg [facility] BMI 2023-04-04 14:09:00 58.54 kg/m2 [facility] Systolic blood pressure 2023-03-21 14:39:00 123 mm[Hg] [facility] Diastolic blood pressure 2023-03-21 14:39:00 81 mm[Hg] [facility] Heart rate 2023-03-21 14:39:00 76 /min [facility] Respiratory rate 2023-03-21 14:39:00 18 /min [facility] Body height 2023-03-21 14:39:00 147.3 cm [facility] Body weight 2023-03-21 14:39:00 127.9 kg Univ [facility] BMI 2023-03-21 14:39:00 58.93 kg/m2 [facility] Oxygen saturation in Arterial blood by Pulse oximetry 2023-03-19 19:10:00 98 /min [facility] Systolic blood pressure 2023-02-22 13:31:00 125 mm[Hg] [facility] Diastolic blood pressure 2023-02-22 13:31:00 82 mm[Hg] [facility] Heart rate 2023-02-22 13:31:00 79 /min [facility] Respiratory rate 2023-02-22 13:31:00 18 /min [facility] Body height 2023-02-22 13:31:00 147.3 cm [facility] Body weight 2023-02-22 13:31:00 132.2 kg [facility] BMI 2023-02-22 13:31:00 60.91 kg/m2 [facility] Oxygen saturation in Arterial blood by Pulse oximetry 2023-02-16 21:12:00 98 /min [facility] BP Systolic 2022-08-30 11:27:00 120 mm[Hg] [...] /min Body temperature 2021-07-27 18:35:24 36.78 Cele [facility] Procedures Procedure Date / Time Performed Performing Clinician Source REFERRAL- REQUEST/RESPONSE 2023-11-07 16:25:56 Doctor Unassigned, [employer] [facility] XR SPINE THORACIC 2 2023-10-25 20:12:25 Requisition , Paper [facility] XR SPINE THORACIC 2 2023-10-25 20:12:25 Requisition , Paper [facility] XR LUMBAR SPINE 4 2023-10-25 20:11:02 Requisition, Paper [facility] XR LUMBAR SPINE 4 2023-10-25 20:11:02 Requisition, Paper [facility] POCT TEST 2023-10-17 06:14:00 Bonnie Rocha [facility] POCT TEST 2023-10-17 06:14:00 Bonnie Rocha [facility] NOTICE OF PRIVACY PRACTICES 2023-10-17 05:41:39 Doctor Unassigned, [employer] [facility] NOTICE OF PRIVACY PRACTICES 2023-10-17 05:41:39 Doctor Unassigned, [employer] [facility] CONSENT/REFUSAL FOR DIAGNOSIS AND TREATMENT 2023-10-17 05:40:01 Doctor Unassigned, [employer] [facility] CONSENT/REFUSAL FOR DIAGNOSIS AND TREATMENT 2023-10-17 05:40:01 Doctor Unassigned, [employer] [facility] EMERGENCY SERVICES AGREEMENTS AND AUTHORIZATIONS 2023-10-16 06:01:00 Doctor Unassigned, [employer] [facility] SLEEP STUDY DATA REPORT 2023-09-06 06:01:00 Doct or Unassigned, [employer] [facility] SLEEP STUDY DATA REPORT 2023-09-06 06:01:00 Doct or Unassigned, [employer] [facility] SLEEP LAB RESULTS 2023-09-06 06:01:00 Elly Blackburn [facility] CONSENT TO TREATMENT WITH PSYCHOACTIVE MEDICATION 2023-07-23 06:01:00 Doctor Unassigned, [employer] [facility] CONSENT TO TREATMENT WITH PSYCHOACTIVE MEDICATION 2023-07-23 06:01:00 Doctor Unassigned, [employer] [facility] [id number] Ultrasound, Soft Tissues Of Head And Neck (eg, Thyroid, Parathyroid, Parotid), Real Time With Image Documentation 2023-05-03 00:00:00 Georgi Alex Delaney ASSIGNMENT OF BENEFITS 2023-04-21 01:50:01 Docto r Unassigned, [employer] [facility] ASSIGNMENT OF BENEFITS 2023-04-21 01:50:01 Docto r Unassigned, [employer] [facility] CONSENT/REFUSAL FOR DIAGNOSIS AND TREATMENT 2023-04-21 00:06:49 Doctor Unassigned, [employer] [facility] CONSENT/REFUSAL FOR DIAGNOSIS AND TREATMENT 2023-04-21 00:06:49 Doctor Unassigned, [employer] [facility] EMERGENCY SERVICES AGREEMENTS AND AUTHORIZATIONS 2023-04-20 05:01:00 Doctor Unassigned, [employer] [facility] BI ULTRASOUND BREAST LIMITED BILATERAL 2023-04-13 15:56:28 Requisition, Paper [facility] BI ULTRASOUND BREAST LIMITED BILATERAL 2023-04-13 15:56:28 Requisition, Paper [facility] BI DIAGNOSTIC TOMOSYNTHESIS BILATERAL 2023-04-13 15:07:30 Requisition, Paper [facility] BI DIAGNOSTIC TOMOSYNTHESIS BILATERAL 2023-04-13 15:07:30 Requisition, Paper [facility] US UPPER ARM LEFT 2023-04-13 14:19:39 Requisition, Pap er [facility] US UPPER ARM LEFT 2023-04-13 14:19:39 Requisition, Pap er [facility] EXTERNAL PROVIDER RECORDS 2023-03-21 05:01:00 Do ctor Unassigned, [employer] [facility] CT HEAD WO CONTRAST 2023-02-26 19:38:43 Afia Beaulieu [facility] CT HEAD WO CONTRAST 2023-02-26 19:38:43 Afia Beaulieu [facility] ASSIGNMENT OF BENEFITS 2023-02-26 19:05:35 Docto r Unassigned, [employer] [facility] CONSENT/REFUSAL FOR DIAGNOSIS AND TREATMENT 2023-02-26 19:04:46 Doctor Unassigned, [employer] [facility] CONSENT/REFUSAL FOR DIAGNOSIS AND TREATMENT 2023-02-26 19:04:46 Doctor Unassigned, [employer] [facility] PATIENT QUESTIONNAIRE 2023-02-26 05:01:00 Doctor Unassigned, [employer] [facility] PSYCHIATRY CLINIC PATIENT INFORMATION 2023-02-22 05:01:00 Doctor Unassigned, [employer] [facility] PATIENT FINANCIAL POLICY 2023-02-16 21:04:53 Doctor Unassigned, [employer] [facility] ASSIGNMENT OF BENEFITS 2023-02-16 21:04:02 Docto r Unassigned, [employer] [facility] CONSENT/REFUSAL FOR DIAGNOSIS AND TREATMENT 2023-02-16 21:03:03 Doctor Unassigned, [employer] [facility] CONSENT/REFUSAL FOR DIAGNOSIS AND TREATMENT 2023-02-16 21:03:03 Doctor Unassigned, [employer] [facility] REFERRAL- REQUEST/RESPONSE 2023-01-23 05:01:00 Doctor Unassigned, [employer] [facility] REFERRAL- REQUEST/RESPONSE 2023-01-23 05:01:00 Doctor Unassigned, [employer] [facility] REFERRAL- REQUEST/RESPONSE 2023-01-03 05:01:00 Doctor Unassigned, [employer] [facility] REFERRAL- REQUEST/RESPONSE 2023-01-03 05:01:00 Doctor Unassigned, [employer] [facility] TROPONIN I 2021-07-27 20:28:00 Yamil Messina [facility] D-DIMER 2021-07-27 20:27:00 Yamil Messina [facility] XR CHEST 1 VW 2021-07-27 19:38:35 Yamil Messina [facility] POCT TEST 2021-07-27 18:28:00 Yamil Messina [facility] URINALYSIS 2021-07-27 18:26:00 Yamil Messina [facility] MAGNESIUM 2021-07-27 18:06:00 Yamil Messina [facility] TROPONIN I 2021-07-27 18:06:00 Yamil Messina [facility] COMP. METABOLIC PANEL ([id number]) 2021-07-27 18:06:00 Yamil Messina [facility] CBC WITH DIFF 2021-07-27 18:06:00 Yamil Messina [facility] CT HEAD WO CONTRAST 2021-06-25 05:12:41 Yoon Page [facility] NOTICE OF PRIVACY PRACTICES 2021-06-25 04:02:52 Doctor Unassigned, [employer] [facility] CONSENT/REFUSAL FOR DIAGNOSIS AND TREATMENT 2021-06-25 04:01:22 Doctor Unassigned, [employer] [facility] DISCLOSURE AND CONSENT, MEDICAL AND SURGICAL PROCEDURES 2021-01-06 05:01:00 Doctor Unassigned, [employer] [facility] POCT TEST 2021-01-05 19:26:00 Magy Villanueva [facility] POCT TEST 2020-12-07 20:47:00 Fern Moctezuma [facility] ASSIGNMENT OF BENEFITS 2020-12-07 19:26:29 Docto r Unassigned, [employer] [facility] Plan of Care Planned Activity Planned Date Details Comments Source Goal Plan of Care Note [code = 22923-7] Goal Plan of Care Note [code = 38278-8] Goal Plan of Care Note [code = 94195-8] Goal Plan of Care Note [code = 96940-2] Goal Plan of Care Note [code = 31338-6] Goal Plan of Care Note [code = 79370-9] Goal Plan of Care Note [code = 67563-6] Goal Plan of Care Note [code = 59460-3] Goal Plan of Care Note [code = 28133-4] Goal Plan of Care Note [code = 78046-0] Goal Plan of Care Note [code = 65937-9] Goal Plan of Care Note [code = 83250-4] Goal Plan of Care Note [code = 55869-5] Goal Plan of Care Note [code = 09198-8] Goal Plan of Care Note [code = 36165-4] Goal Plan of Care Note [code = 49643-3] Goal Plan of Care Note [code = 38829-1] Goal Plan of Care Note [code = 78648-4] Goal Plan of Care Note [code = 70797-3] Goal Plan of Care Note [code = 45111-0] Goal Plan of Care Note [code = 21658-1] Goal Plan of Care Note [code = 79780-8] Goal Plan of Care Note [code = 24303-3] Goal Plan of Care Note [code = 19395-6] Goal Plan of Care Note [code = 86876-3] Goal Plan of Care Note [code = 50763-8] Goal Plan of Care Note [code = 44756-7] Goal Plan of Care Note [code = 32901-9] Goal Plan of Care Note [code = 63634-3] Goal Plan of Care Note [code = 25427-0] Goal Plan of Care Note [code = 24779-8] Goal Plan of Care Note [code = 65216-5] Goal Plan of Care Note [code = 33861-8] Goal Plan of Care Note [code = 99121-8] Goal Plan of Care Note [code = 72627-9] Goal Plan of Care Note [code = 31595-9] Goal Plan of Care Note [code = 60835-6] Goal Plan of Care Note [code = 43227-4] Goal Plan of Care Note [code = 62873-5] Goal Plan of Care Note [code = 11357-5] Goal Plan of Care Note [code = 91411-7] Goal Plan of Care Note [code = 96455-2] Goal Plan of Care Note [code = 23930-3] Goal Plan of Care Note [code = 80409-7] Goal Plan of Care Note [code = 39788-4] Goal Plan of Care Note [code = 97620-7] Goal Plan of Care Note [code = 43945-3] Goal Plan of Care Note [code = 68987-7] Goal Plan of Care Note [code = 38394-7] Goal Plan of Care Note [code = 79232-3] Goal Plan of Care Note [code = 93799-7] Goal Plan of Care Note [code = 82858-1] Goal Plan of Care Note [code = 17033-5] Goal Plan of Care Note [code = 28597-1] Goal Plan of Care Note [code = 60950-5] Goal Plan of Care Note [code = 54647-3] Goal Plan of Care Note [code = 05057-6] Goal Plan of Care Note [code = 17287-4] Goal Plan of Care Note [code = 17380-0] Goal Plan of Care Note [code = 40166-2] Goal Plan of Care Note [code = 60558-6] Goal Plan of Care Note [code = 82959-4] Goal Plan of Care Note [code = 75333-5] Goal Plan of Care Note [code = 49397-0] Goal Plan of Care Note [code = 76028-6] Goal Plan of Care Note [code = 53711-6] Goal Plan of Care Note [code = 63090-3] Goal Plan of Care Note [code = 95753-5] Goal Plan of Care Note [code = 73442-2] Goal Plan of Care Note [code = 81310-6] Goal Plan of Care Note [code = 81386-0] Goal Plan of Care Note [code = 13149-7] Goal Plan of Care Note [code = 41189-1] Goal Plan of Care Note [code = 23481-5] Goal Plan of Care Note [code = 88214-6] Goal Plan of Care Note [code = 41780-1] Goal Plan of Care Note [code = 64424-1] Goal Plan of Care Note [code = 15521-1] Goal Plan of Care Note [code = 47868-6] Goal Plan of Care Note [code = 16774-1] Goal Plan of Care Note [code = 20483-5] Goal Plan of Care Note [code = 61149-6] Goal Plan of Care Note [code = 32977-0] Goal Plan of Care Note [code = 48530-3] Goal Plan of Care Note [code = 47571-7] Goal Plan of Care Note [code = 70027-8] Goal Plan of Care Note [code = 96109-6] Goal Plan of Care Note [code = 66097-9] Goal Plan of Care Note [code = 35156-6] Goal Plan of Care Note [code = 32024-5] Goal Plan of Care Note [code = 58466-9] Goal Plan of Care Note [code = 62699-9] Goal Plan of Care Note [code = 98845-8] Goal Plan of Care Note [code = 10622-8] Goal Plan of Care Note [code = 92059-4] Goal Plan of Care Note [code = 57271-6] Goal Plan of Care Note [code = 80949-0] Goal Plan of Care Note [code = 95582-8] Goal Plan of Care Note [code = 05332-8] Goal Plan of Care Note [code = 81085-7] Goal Plan of Care Note [code = 68539-1] Goal Plan of Care Note [code = 69349-7] Goal Plan of Care Note [code = 60792-9] Goal Plan of Care Note [code = 45303-7] Goal Plan of Care Note [code = 33165-2] Goal Plan of Care Note [code = 99182-3] Goal Plan of Care Note [code = 41848-6] Goal Plan of Care Note [code = 71913-1] Goal Plan of Care Note [code = 02544-9] Goal Plan of Care Note [code = 06809-2] Goal Plan of Care Note [code = 30060-5] Goal Plan of Care Note [code = 98367-9] Goal Plan of Care Note [code = 21634-8] Goal Plan of Care Note [code = 71702-8] Goal Plan of Care Note [code = 90037-6] Goal Plan of Care Note [code = 58296-6] Goal Plan of Care Note [code = 35815-4] Goal Plan of Care Note [code = 16284-7] Goal Plan of Care Note [code = 64882-7] Goal Plan of Care Note [code = 64812-4] Goal Plan of Care Note [code = 89820-9] Goal Plan of Care Note [code = 03393-3] Goal Plan of Care Note [code = 95077-3] Goal Plan of Care Note [code = 18277-1] Goal Plan of Care Note [code = 81630-3] Goal Plan of Care Note [code = 13056-5] Goal Plan of Care Note [code = 41681-0] Goal Plan of Care Note [code = 41940-5] Goal Plan of Care Note [code = 93323-1] Goal Plan of Care Note [code = 74820-4] Goal Plan of Care Note [code = 39616-1] Goal Plan of Care Note [code = 82167-0] Goal Plan of Care Note [code = 72753-4] Goal Plan of Care Note [code = 35000-7] Goal Plan of Care Note [code = 42881-1] Goal Plan of Care Note [code = 06181-5] Goal Plan of Care Note [code = 56392-3] Goal Plan of Care Note [code = 25039-1] Goal Plan of Care Note [code = 45465-7] Goal Plan of Care Note [code = 72752-9] Goal Plan of Care Note [code = 67306-0] Goal Plan of Care Note [code = 73162-7] Goal Plan of Care Note [code = 95029-7] Goal Plan of Care Note [code = 84049-6] Goal Plan of Care Note [code = 47827-4] Goal Plan of Care Note [code = 75343-1] Goal Plan of Care Note [code = 01031-5] Goal Plan of Care Note [code = 61472-9] Goal Plan of Care Note [code = 88342-8] Goal Plan of Care Note [code = 67353-5] Goal Plan of Care Note [code = 28363-9] Goal Plan of Care Note [code = 43582-9] Goal Plan of Care Note [code = 46476-6] Goal Plan of Care Note [code = 64681-6] Goal Plan of Care Note [code = 70749-7] Goal Plan of Care Note [code = 82399-0] Goal Plan of Care Note [code = 81215-2] Encounters Start Date/Time End Date/Time Encounter Type Admission Type Attending [facility] Facility Care Department Encounter ID Source 2025-01-21 13:00:00 2025-01-21 13:00:00 Outpatient FAUSTINO CORTEZ [id number] Rolanda Vogel 2024-09-18 11:00:00 2024-09-18 11:00:00 Outpatient AFIA MELVIN [facility] [id number] [facility] 2024-08-22 08:00:00 2024-08-22 08:00:00 Outpatient NABEEL MEDINA [id number] Rolanda Vogel 2024-08-08 14:00:00 2024-08-08 14:00:00 Outpatient JUAN CASTELLANOS ROLANDA OSMAN [id number] [facility] 2024-07-14 14:00:00 2024-07-14 14:00:00 Outpatient SABRINA WINTER ROLANDA OSMAN [id number] Rolanda Seybold 2024-07-10 00:00:00 2024-07-10 00:00:00 Outpatient ENDER FIGUEROA ROLANDA OSMAN [id number] [facility] 2024-07-08 00:00:00 2024-07-08 00:00:00 Outpatient JASMIN JUAN OSMAN [id number] [facility] 2024-06-27 00:00:00 2024-06-27 00:00:00 Outpatient DAVIDRichelle JUNA OSMAN [id number] [facility] 2024-06-26 15:00:00 2024-06-26 15:00:00 Outpatient DAVIDRichelle JUAN OSMAN [id number] [facility] 2024-06-25 06:49:00 2024-06-25 06:49:00 Outpatient Cesar Diaz [facility] [id number] [facility] 2024-06-22 10:15:00 2024-06-22 10:15:00 Outpatient ANNE-MARIE VENTURA ROLANDA OSMAN [id number] [facility] 2024-06-22 00:00:00 2024-06-22 00:00:00 Outpatient KAMILAH GARCIA [id number] Rolanda Seybold 2024-06-18 00:00:00 2024-06-18 00:00:00 Outpatient YISEL ASTORGA [id number] Rolanda Seybold 2024-06-14 00:00:00 2024-06-14 00:00:00 Outpatient ZIYAD HOYOS [id number] Rolanda Seybold 2024-06-10 14:15:00 2024-06-10 14:15:00 Outpatient YISEL ASTORGA [id number] Rolanda Seybold 2024-06-10 14:05:00 2024-06-10 14:05:00 Outpatient ROLANDA ROLANDA [id number] Rolanda Seybold 2024-06-10 10:25:00 2024-06-10 10:25:00 Outpatient LAB90 ROLANDA ROLANDA [id number] Rolanda Seybold 2024-06-09 14:15:00 2024-06-09 14:15:00 Outpatient SABRINA WINTER ROLANDA OSMAN [id number] Rolanda Seybold 2024-06-06 00:00:00 2024-06-06 00:00:00 Outpatient JUAN CASTELLANOS ROLANDA OSMAN [id number] Rolanda Seybold 2024-06-06 00:00:00 2024-06-06 00:00:00 Outpatient DAVIDRichelle JUAN ROLANDA OSMAN [id number] Rolanda Seybold 2024-05-30 00:00:00 2024-05-30 00:00:00 Outpatient GARCIA, UMAIR ROLANDA OSMAN [id number] Rolanda Seybold 2024-05-28 00:00:00 2024-05-28 00:00:00 Outpatient ROLANDA OSMAN [id number] Rolanda Seybold 2024-05-27 15:45:00 2024-05-27 15:45:00 Outpatient LABBen ROLANDA OSMAN [id number] Rolanda Seybold 2024-05-27 15:00:00 2024-05-27 15:00:00 Outpatient JASMIN JUAN ROLANDA OSMAN [id number] Rolanda Seybold 2024-05-27 00:00:00 2024-05-27 00:00:00 Outpatient AGLIBERTAD CORTEZ ROLANDA OSMAN [id number] Rolanda Seybold 2024-05-14 11:00:00 2024-05-14 11:00:00 Outpatient DAVIDRichelle JUAN OSMAN [id number] Rolanda Seybold 2024-05-12 11:00:00 2024-05-12 11:00:00 Outpatient DAVIDRichelle JUAN OSMAN [id number] Rolanda Seybold 2024-04-28 00:00:00 2024-04-28 00:00:00 Outpatient ROLANDA OSMAN [id number] Rolanda Seybold 2024-04-23 14:25:00 2024-04-23 14:25:00 Outpatient ROLANDA HEBERTSEY [id number] Rolanda [facility] 2024-04-23 14:20:00 2024-04-23 14:20:00 Outpatient ROLANDA ROLANDA [id number] Rolanda [facility] 2024-04-23 00:00:00 2024-04-23 00:00:00 Outpatient COSMO, GEORGI ROLANDA OSMAN [id number] Rolanda [facility] 2024-04-23 00:00:00 2024-04-23 00:00:00 Outpatient COSMO, GEORGI ROLANDA OSMAN [id number] Rolanda [facility] 2024-04-18 00:00:00 2024-04-18 00:00:00 Outpatient HUNDLJUAN ROLANDA OSMAN [id number] Rolanda [facility] 2024-04-17 17:20:00 2024-04-17 17:20:00 Outpatient ROLANDA OSMAN [id number] Rolanda [facility] 2024-04-17 17:15:00 2024-04-17 17:15:00 Outpatient ROLANDA ROLANDA [id number] Rolanda [facility] 2024-04-17 14:00:00 2024-04-17 14:00:00 Outpatient COSMO, GEORGI ROLANDA OSMAN [id number] Rolanda [facility] 2024-04-17 13:45:00 2024-04-17 13:45:00 Outpatient ROLANDA OSMAN [id number] Rolanda [facility] 2024-04-17 00:00:00 2024-04-17 00:00:00 Outpatient COSMO, GEORGI OSMAN [id number] Rolanda [facility] 2024-04-17 00:00:00 2024-04-17 00:00:00 Outpatient COSMO, GEORGI OSMAN [id number] Rolanda [facility] 2024-04-15 00:00:00 2024-04-15 00:00:00 Outpatient COSMO, GEORGI OSMAN [id number] Rolanda [facility] 2024-03-12 00:00:00 2024-04-12 18:19:33 Patient Secure Ms Doctor Unassigned, [employer] Doctor Unassigned, [employer] [facility] 1.2.840.114 350.1.13.10 4.2.7.2.686 [id number] [facility] 2024-04-08 10:35:00 2024-04-08 10:35:00 Outpatient LAB90 ROLANDA OSMAN [id number] Rolanda chavosundar 2024-04-03 15:00:00 2024-04-03 15:00:00 Outpatient JASMIN, JUAN OSMAN [id number] Rolanda Marcisundar 2024-03-20 00:00:00 2024-03-20 00:00:00 Outpatient HUNDRichelle, JUAN OSMAN [id number] Rolanda bisi 2024-03-04 14:30:00 2024-03-04 14:30:00 Outpatient HUNDL, JUAN OSMAN [id number] Rolanda [facility] 2024-02-21 00:00:00 2024-02-21 00:00:00 Outpatient HUNDL, JUAN OSMAN [id number] Rolanda sundar 2024-02-16 00:00:00 2024-02-16 00:00:00 Outpatient TAMMY MCDOWELL [id number] Rolanda [facility] 2024-02-14 00:00:00 2024-02-14 00:00:00 Outpatient RIGO KATHLEEN [id number] [facility] 2024-02-11 00:00:00 2024-02-11 00:00:00 Outpatient HUNDRichelle, JUAN OSMAN [id number] [facility] 2024-02-05 16:05:00 2024-02-05 16:05:00 Outpatient LAB90 ROLANDA OSMAN [id number] [facility] 2024-02-05 16:00:00 2024-02-05 16:00:00 Outpatient LAB90 ROLANDA OSMAN [id number] [facility] 2024-02-05 15:00:00 2024-02-05 15:00:00 Outpatient JASMIN, JUAN OSMAN [id number] Rolanda Vogel 2024-02-04 14:30:00 2024-02-04 14:30:00 Outpatient JUAN CASTELLANOS [id number] Rolanda Vogel 2024-01-28 00:00:00 2024-01-29 09:42:23 Telephone Lars Afia 1.2.840.1 85467.1.1 3.104.2.7 .3.802521 .8 [id number] [facility] 2024-01-29 00:00:00 2024-01-29 09:40:54 Letter (Out) Afia Beaulieu 1.2.840.1 10038.1.1 3.104.2.7 .3.727939 .8 [id number] [facility] 2024-01-01 00:00:00 2024-01-17 14:15:43 Patient Secure Msg Doctor Unassigned, [employer] 1.2.840.1 81137.1.1 3.104.2.7 .3.245761 .8 [id number] [facility] 2024-01-09 14:32:27 2024-01-09 14:32:27 Outpatient SFA SFA [id number] Georgi Delaney 2024-01-08 14:19:45 2024-01-08 14:19:45 Outpatient SFA SFA [id number] Georgi Johnson [place]tt 2024-01-08 00:00:00 2024-01-08 00:00:00 Outpatient Visit SFA [id number] Georgi Delaney 2024-01-04 08:04:20 2024-01-04 08:04:20 Outpatient SFA SFA [id number] Georgi Delaney 2024-01-03 18:51:13 2024-01-03 18:51:13 Outpatient SFA SFA [id number] Georgi Delaney 2023-12-31 00:00:00 2024-01-03 16:33:02 Telephone Dorothy Phillips 1.2.840.1 64500.1.1 3.104.2.7 .3.263642 .8 [id number] [facility] 2024-01-03 00:00:00 2024-01-03 00:00:00 Outpatient R ARIJonatanDOROTHY RÍOS [facility] [id number] [facility] 2023-12-31 00:00:00 2024-01-02 12:35:07 Telephone Elly Blackburn 1.2.840.1 53699.1.1 3.104.2.7 .3.378900 .8 [id number] [facility] 2024-01-02 09:30:00 2024-01-02 10:23:19 Outpatient R SHARRI OLSON [facility] [id number] [facility] 2023-12-31 00:00:00 2023-12-31 11:16:36 Telephone Navneet Dang 1.2.840.1 56563.1.1 3.104.2.7 .3.172134 .8 [id number] [facility] 2023-12-27 18:58:47 2023-12-27 18:58:47 Outpatient SFA [facility] [id number] Georgi Delaney 2023-12-27 00:00:00 2023-12-27 00:00:00 Outpatient Visit [facility] [id number] Georgi Delaney 2023-12-26 09:20:00 2023-12-26 09:52:16 Outpatient R DOROTHY PHILLIPS [facility] [id number] [facility] 2023-12-26 09:20:00 2023-12-26 09:52:16 Office Visit Dorothy Phillips 1.2.840.1 42561.1.1 3.104.2.7 .3.709783 .8 [id number] [facility] 2023-12-25 09:30:00 2023-12-25 10:04:53 Outpatient R AFIA BEAULIEU [facility] [id number] [facility] 2023-12-25 09:30:00 2023-12-25 10:04:53 Office Visit Afia Beaulieu 1.2.840.1 30642.1.1 3.104.2.7 .3.559112 .8 [id number] [facility] 2023-12-25 00:00:00 2023-12-25 00:00:00 Travel 1.2.840.1 26615.1.1 3.104.2.7 .3.402851 .8 1.2.840.114 350.1.13.10 4.2.7.3.698 084.8 [id number] [facility] 2023-12-21 15:12:41 2023-12-21 15:12:41 Outpatient SFA [facility] [id number] Georgi Delaney 2023-12-21 00:00:00 2023-12-21 00:00:00 Outpatient Visit [facility] [id number] Georgi Delaney 2023-12-19 11:33:43 2023-12-19 11:33:43 Outpatient SFA [facility] [id number] Georgi Johnson Rhett 2023-12-19 09:30:00 2023-12-19 10:34:54 Outpatient R SHARRI OLSON [facility] [id number] [facility] 2023-12-19 00:00:00 2023-12-19 00:00:00 Travel 1.2.840.1 36447.1.1 3.104.2.7 .3.257679 .8 1.2.840.114 350.1.13.10 4.2.7.3.698 084.8 [id number] [facility] 2023-12-12 11:53:06 2023-12-12 11:53:06 Outpatient SFA [facility] [id number] Georgi Delaney 2023-11-06 00:00:00 2023-12-08 18:07:25 Patient Secure Msg Doctor Unassigned, [employer] 1.2.840.1 82800.1.1 3.104.2.7 .3.363227 .8 [id number] [facility] 2023-12-07 10:52:07 2023-12-07 10:52:07 Outpatient [facility] [id number] Georgi Johnson [place] 2023-12-06 18:52:45 2023-12-06 18:52:45 Outpatient [facility] [id number] Georgi Johnson [place] 2023-12-05 11:22:26 2023-12-05 11:22:26 Outpatient [facility] [id number] Georgi Johnson [place] 2023-12-05 08:45:00 2023-12-05 10:00:37 Outpatient SHARRI LOWE [facility] [id number] [facility] 2023-12-05 00:00:00 2023-12-05 00:00:00 Travel 1.2.840.1 67672.1.1 3.104.2.7 .3.014518 .8 1.2.840.114 350.1.13.10 4.2.7.3.698 084.8 [id number] [facility] 2023-12-03 09:06:12 2023-12-03 09:06:12 Outpatient [facility] [id number] Georgi Johnson [place] 2023-10-27 00:00:00 2023-12-01 18:09:02 Patient Secure Msg Doctor Unassigned, [employer] 1.2.840.1 13854.1.1 3.104.2.7 .3.065204 .8 [id number] [facility] 2023-11-28 23:48:00 2023-11-29 00:50:00 Emergency X EMILY S[facility]H [facility] ERT [id number] [facility] 2023-11-28 23:48:00 2023-11-29 00:50:00 Emergency Emily Singh 1.2.840.1 35161.1.1 3.104.2.7 .3.081126 .8 [id number] [facility] 2023-11-28 11:24:29 2023-11-28 11:24:29 Outpatient SFA SFA [id number] Georgi Delaney 2023-11-28 00:00:00 2023-11-28 00:00:00 Travel 1.2.840.1 42510.1.1 3.104.2.7 .3.269897 .8 1.2.840.114 350.1.13.10 4.2.7.3.698 084.8 [id number] [facility] 2023-11-23 18:48:41 2023-11-23 18:48:41 Outpatient SFA SFA [id number] Georgi Delaney 2023-11-22 18:32:19 2023-11-22 18:32:19 Outpatient SFA SFA [id number] Georgi Delaney 2023-11-21 11:42:56 2023-11-21 11:42:56 Outpatient SFA SFA [id number] Georgi Delaney 2023-11-19 14:35:59 2023-11-19 14:35:59 Outpatient SFA SFA [id number] Georgi Delaney 2023-10-17 00:00:00 2023-11-17 18:05:01 Patient Secure Msg Doctor Unassigned, [employer] 1.2.840.1 00188.1.1 3.104.2.7 .3.887346 .8 [id number] [facility] 2023-11-15 18:25:25 2023-11-15 18:25:25 Outpatient SFA SFA [id number] Georgi Delaney 2023-11-14 11:21:10 2023-11-14 11:21:10 Outpatient SFA SFA [id number] Georgi Delaney 2023-11-12 08:45:00 2023-11-12 09:29:31 Outpatient R ATILIO ANDREWS [facility] [id number] [facility] 2023-11-12 00:00:00 2023-11-12 00:00:00 Travel 1.2.840.1 66668.1.1 3.104.2.7 .3.989327 .8 1.2.840.114 350.1.13.10 4.2.7.3.698 084.8 [id number] [facility] 2023-11-08 18:20:12 2023-11-08 18:20:12 Outpatient SFA [facility] 28 Georgi Delaney 2023-11-07 12:59:12 2023-11-07 12:59:12 Outpatient SFA [facility] 27 Georgi Johnson Rhett 2023-11-07 00:00:00 2023-11-07 00:00:00 Orders Only Doctor Unassigned, [employer] 1.2.840.1 11188.1.1 3.104.2.7 .3.608943 .8 [id number] [facility] 2023-11-06 10:18:34 2023-11-06 10:18:34 Outpatient SFA [facility] [id number] Georgi Delaney 2023-11-01 18:46:12 2023-11-01 18:46:12 Outpatient SFA [facility] 21 Georgi Johnson Rhett 2023-11-01 08:30:00 2023-11-01 09:11:45 Outpatient R AFIA BEAULIEU [facility] [id number] [facility] 2023-11-01 08:30:00 2023-11-01 09:11:45 Office Visit Afia Baeulieu 1.2.840.1 83363.1.1 3.104.2.7 .3.144098 .8 [id number] [facility] 2023-10-31 12:52:35 2023-10-31 12:52:35 Outpatient SFA [facility] [id number] Georgi Delaney 2023-10-31 08:00:00 2023-10-31 09:01:39 Outpatient R OBI SHARIF [facility] [id number] [facility] 2023-10-31 00:00:00 2023-10-31 00:00:00 Travel 1.2.840.1 04876.1.1 3.104.2.7 .3.721278 .8 1.2.840.114 350.1.13.10 4.2.7.3.698 084.8 [id number] [facility] 2023-10-26 08:12:20 2023-10-26 08:12:20 Outpatient SFA SFA [id number] Georgi Delaney 2023-10-25 14:45:00 2023-10-25 23:59:00 Outpatient R RADIOLOGY [facility] [id number] [facility] 2023-10-25 14:45:00 2023-10-25 23:59:00 Hospital Encounter Radiology 1.2.840.1 70135.1.1 3.104.2.7 .3.779040 .8 [id number] [facility] 2023-10-25 17:25:44 2023-10-25 17:25:44 Outpatient SFA [facility] [id number] Georgi Delaney 2023-10-25 13:45:00 2023-10-25 14:44:00 Hospital Encounter Radiology 1.2.840.1 92141.1.1 3.104.2.7 .3.467861 .8 [id number] [facility] 2023-10-25 00:00:00 2023-10-25 00:00:00 Travel 1.2.840.1 71154.1.1 3.104.2.7 .3.024084 .8 1.2.840.114 350.1.13.10 4.2.7.3.698 084.8 [id number] [facility] 2023-10-24 11:20:39 2023-10-24 11:20:39 Outpatient SFA SFA [id number] Georgi Johnson Rhett 2023-10-16 00:00:00 2023-10-23 10:33:52 Telephone Elly Blackburn 1.2.840.1 61425.1.1 3.104.2.7 .3.929778 .8 [id number] [facility] 2023-10-22 17:22:44 2023-10-22 17:22:[address] [id number] Georgi Johnson [place] 2023-10-18 18:31:21 2023-10-18 18:31:21 [address] [id number] Georgi Jonhson [place] 2023-10-17 11:24:20 2023-10-17 11:24:20 [address] [id number] Georgi Johnson [place] 2023-10-16 23:54:00 2023-10-17 01:45:00 Emergency X JOSEFINA BONNIE [facility] [id number] [facility] 2023-10-16 23:54:00 2023-10-17 01:45:00 Emergency Bonnie Rocha Jessie 1.2.840.1 30768.1.1 3.104.2.7 .3.760936 .8 [id number] [facility] 2023-10-16 00:00:00 2023-10-16 22:59:28 Nurse Triage Debbie Velasco 1.2.840.1 10656.1.1 3.104.2.7 .3.010130 .8 [id number] [facility] 2023-10-16 00:00:00 2023-10-16 00:00:00 Travel 1.2.840.1 98264.1.1 3.104.2.7 .3.635987 .8 1.2.840.114 350.1.13.10 4.2.7.3.698 084.8 [id number] [facility] 2023-10-15 08:45:00 2023-10-15 09:33:30 Outpatient R ATILIO ANDREWS [facility] [id number] [facility] 2023-10-15 00:00:00 2023-10-15 00:00:00 Travel 1.2.840.1 30781.1.1 3.104.2.7 .3.160192 .8 1.2.840.114 350.1.13.10 4.2.7.3.698 084.8 [id number] [facility] 2023-10-12 15:08:57 2023-10-12 15:08:57 Outpatient SFA SFA [id number] Georgi Delaney 2023-10-11 18:19:30 2023-10-11 18:19:30 Outpatient SFA SFA [id number] Georgi Johnson [place] 2023-10-10 10:04:00 2023-10-10 10:04:00 Outpatient SFA SFA [id number] Georgi Delaney 2023-10-09 00:00:00 2023-10-10 09:41:53 Telephone Elly Blackburn 1.2.840.1 00504.1.1 3.104.2.7 .3.275814 .8 [id number] [facility] 2023-10-09 00:00:00 2023-10-10 09:09:54 Telephone Elly Blackburn 1.2.840.1 49991.1.1 3.104.2.7 .3.519477 .8 [id number] [facility] 2023-10-09 09:00:00 2023-10-09 09:00:00 Outpatient R ELLY BLACKBURN [facility] [id number] [facility] 2023-10-04 18:49:09 2023-10-04 18:49:09 Outpatient SFA SFA [id number] Georgi Delaney 2023-10-03 11:19:32 2023-10-03 11:19:32 Outpatient SFA SFA [id number] Georgi Delaney 2023-10-03 00:00:00 2023-10-03 10:53:24 Telephone Navneet Dang 1.2.840.1 47250.1.1 3.104.2.7 .3.505645 .8 [id number] [facility] 2023-10-01 16:58:20 2023-10-01 16:58:20 Outpatient SFA SFA [id number] Georgi Delaney 2023-09-28 00:00:00 2023-10-01 11:55:24 Telephone Elly Blackburn 1.2.840.1 76825.1.1 3.104.2.7 .3.132128 .8 [id number] [facility] 2023-10-01 08:45:00 2023-10-01 09:36:52 Outpatient R ATILIO ANDREWS [facility] [id number] [facility] 2023-10-01 00:00:00 2023-10-01 00:00:00 Travel 1.2.840.1 98261.1.1 3.104.2.7 .3.383684 .8 1.2.840.114 350.1.13.10 4.2.7.3.698 084.8 [id number] [facility] 2023-09-27 18:56:58 2023-09-27 18:56:58 Outpatient SFA SFA [id number] Georgi Delaney 2023-09-27 00:00:00 2023-09-27 00:00:00 Travel 1.2.840.1 76229.1.1 3.104.2.7 .3.476030 .8 1.2.840.114 350.1.13.10 4.2.7.3.698 084.8 [id number] [facility] 2023-09-26 11:28:03 2023-09-26 11:28:03 Outpatient SFA SFA [id number] Georgi Delaney 2023-09-19 11:47:58 2023-09-19 11:47:58 Outpatient SFA SFA [id number] Georgi Delaney 2023-09-18 14:30:00 2023-09-18 15:13:10 Office Visit Afia Beaulieu 1.2.840.1 85060.1.1 3.104.2.7 .3.014343 .8 [id number] [facility] 2023-09-18 14:30:00 2023-09-18 15:13:10 Outpatient R BEAULIEUENRIQUETAAFIA [facility] [id number] [facility] 2023-09-17 16:00:03 2023-09-17 16:00:03 Outpatient SFA SFA [id number] Georgi Delaney 2023-09-17 08:45:00 2023-09-17 09:30:29 Outpatient R ATILIO [facility]REWS [facility] [id number] [facility] 2023-09-17 00:00:00 2023-09-17 00:00:00 Travel 1.2.840.1 19359.1.1 3.104.2.7 .3.485664 .8 1.2.840.114 350.1.13.10 4.2.7.3.698 084.8 [id number] [facility] 2023-09-14 00:00:00 2023-09-14 00:00:00 Travel 1.2.840.1 15301.1.1 3.104.2.7 .3.259391 .8 1.2.840.114 350.1.13.10 4.2.7.3.698 084.8 [id number] [facility] 2023-09-13 18:25:18 2023-09-13 18:25:18 Outpatient SFA SFA [id number] Georgi Delaney 2023-09-07 17:04:45 2023-09-07 17:04:45 Outpatient SFA SFA [id number] Georgi Delaney 2023-09-06 18:58:45 2023-09-06 18:58:45 Outpatient SFA SFA [id number] Georgi Delaney 2023-09-06 12:00:00 2023-09-06 12:15:00 Chefs Visit Ion Rahman T 1.2.840.1 68221.1.1 3.104.2.7 .3.234179 .8 [id number] [facility] 2023-09-06 12:00:00 2023-09-06 12:00:00 Outpatient R ION RAHMAN [facility]AHIL [facility] [id number] [facility] 2023-09-06 00:00:00 2023-09-06 00:00:00 Orders Only Doctor Unassigned, [employer] 1.2.840.1 56614.1.1 3.104.2.7 .3.523210 .8 [id number] [facility] 2023-09-06 00:00:00 2023-09-06 00:00:00 Travel 1.2.840.1 98164.1.1 3.104.2.7 .3.582448 .8 1.2.840.114 350.1.13.10 4.2.7.3.698 084.8 [id number] [facility] 2023-09-05 11:23:13 2023-09-05 11:23:13 Outpatient [facility] [id number] Georgi Delaney 2023-09-03 16:53:51 2023-09-03 16:53:51 Outpatient [facility] [id number] Georgi Delaney 2023-09-03 08:45:00 2023-09-03 09:29:48 Outpatient R ATILIO ANDREWS [facility] [id number] [facility] 2023-09-03 00:00:00 2023-09-03 00:00:00 Travel 1.2.840.1 16702.1.1 3.104.2.7 .3.986332 .8 1.2.840.114 350.1.13.10 4.2.7.3.698 084.8 [id number] [facility] 2023-08-31 00:00:00 2023-08-31 00:00:00 Travel 1.2.840.1 02876.1.1 3.104.2.7 .3.400060 .8 1.2.840.114 350.1.13.10 4.2.7.3.698 084.8 [id number] [facility] 2023-08-30 18:59:50 2023-08-30 18:59:50 Outpatient SFA SFA [id number] Georgi Delaney 2023-08-29 11:54:24 2023-08-29 11:54:24 Outpatient SFA SFA 17 Georgi Delaney 2023-08-28 11:00:00 2023-08-28 11:45:13 Outpatient R ELLY BLACKBURN [facility] [id number] [facility] 2023-08-28 11:00:00 2023-08-28 11:45:13 Office Visit Elly Blackburn 1.2.840.1 28504.1.1 3.104.2.7 .3.356279 .8 [id number] [facility] 2023-08-28 00:00:00 2023-08-28 00:00:00 Travel 1.2.840.1 92524.1.1 3.104.2.7 .3.225059 .8 1.2.840.114 350.1.13.10 4.2.7.3.698 084.8 [id number] [facility] 2023-08-22 11:25:11 2023-08-22 11:25:11 Outpatient SFA SFA [id number] Georgi Delaney 2023-08-22 08:00:00 2023-08-22 08:00:00 Outpatient R [facility] [id number] [facility] 2023-08-16 18:23:26 2023-08-16 18:23:26 Outpatient SFA SFA [id number] Georgi Delaney 2023-08-15 12:35:53 2023-08-15 12:35:53 Outpatient [place] [id number] Georgi Delaney 2023-08-09 18:21:08 2023-08-09 18:21:08 Outpatient SFA [address] [id number] Georgi Delaney 2023-08-08 17:08:47 2023-08-08 17:08:47 Outpatient SFA [place] [id number] Georgi Delaney 2023-08-02 18:23:13 2023-08-02 18:23:13 Outpatient [place] [id number] Georgi Delaney 2023-07-31 09:40:50 2023-07-31 09:40:50 Outpatient SFA [place] [id number] Georgi Delaney 2023-07-30 09:30:00 2023-07-30 10:00:26 Outpatient R ISELA FERREIRA [facility] [id number] [facility] 2023-07-30 00:00:00 2023-07-30 00:00:00 Travel 1.2.840.1 50481.1.1 3.104.2.7 .3.782422 .8 1.2.840.114 350.1.13.10 4.2.7.3.698 084.8 [id number] [facility] 2023-07-26 10:40:34 2023-07-26 10:40:34 Outpatient [facility] [id number] Georgi Delaney 2023-07-23 08:45:00 2023-07-23 10:33:12 Outpatient R CHANEL JACOME [facility] [id number] [facility] 2023-07-23 00:00:00 2023-07-23 00:00:00 Travel 1.2.840.1 03650.1.1 3.104.2.7 .3.728328 .8 1.2.840.114 350.1.13.10 4.2.7.3.698 084.8 [id number] [facility] 2023-07-23 00:00:00 2023-07-23 00:00:00 Orders Only Doctor Unassigned, [employer] 1.2.840.1 63336.1.1 3.104.2.7 .3.031088 .8 [id number] [facility] 2023-07-20 00:00:00 2023-07-20 00:00:00 Travel 1.2.840.1 97258.1.1 3.104.2.7 .3.733794 .8 1.2.840.114 350.1.13.10 4.2.7.3.698 084.8 [id number] [facility] 2023-07-19 18:54:32 2023-07-19 18:54:32 Outpatient SFA SFA [id number] Georgi Delaney 2023-07-19 00:00:00 2023-07-19 00:00:00 Patient Secure Msg Doctor Unassigned, [employer] 1.2.840.1 78814.1.1 3.104.2.7 .3.967348 .8 [id number] [facility] 2023-07-18 08:00:00 2023-07-18 09:04:35 Outpatient SHARRI LOWE [facility] [id number] [facility] 2023-07-18 00:00:00 2023-07-18 00:00:00 Travel 1.2.840.1 70273.1.1 3.104.2.7 .3.800797 .8 1.2.840.114 350.1.13.10 4.2.7.3.698 084.8 [id number] [facility] 2023-07-17 17:38:54 2023-07-17 17:38:54 Outpatient SFA SFA [id number] Georgi Delaney 2023-07-16 17:57:32 2023-07-16 17:57:32 Outpatient SFA SFA [id number] Georgi Delaney 2023-07-16 00:00:00 2023-07-16 00:00:00 Travel 1.2.840.1 51668.1.1 3.104.2.7 .3.519646 .8 1.2.840.114 350.1.13.10 4.2.7.3.698 084.8 [id number] [facility] 2023-07-12 18:22:31 2023-07-12 18:22:31 Outpatient SFA SFA [id number] Georgi Delaney 2023-07-12 00:00:00 2023-07-12 00:00:00 Telephone Navneet Dang 1.2.840.1 59853.1.1 3.104.2.7 .3.022674 .8 [id number] [facility] 2023-07-11 00:00:00 2023-07-11 00:00:00 Telephone Afia Beaulieu 1.2.840.1 64905.1.1 3.104.2.7 .3.280077 .8 [id number] [facility] 2023-07-10 12:48:46 2023-07-10 12:48:46 Outpatient SFA SFA [id number] Georgi Delaney 2023-07-04 08:45:00 2023-07-04 08:45:00 Outpatient CHANEL HAYES [facility] [id number] [facility] 2023-07-04 00:00:00 2023-07-04 00:00:00 Travel 1.2.840.1 07073.1.1 3.104.2.7 .3.252983 .8 1.2.840.114 350.1.13.10 4.2.7.3.698 084.8 [id number] [facility] 2023-06-28 17:20:13 2023-06-28 17:20:13 Outpatient SFA SFA [id number] Georgi Delaney 2023-06-26 17:09:38 2023-06-26 17:09:38 Outpatient SFA SFA [id number] Georgi Delaney 2023-06-25 14:22:23 2023-06-25 14:22:23 Outpatient SFA SFA [id number] Georgi Delaney 2023-06-22 14:53:38 2023-06-22 14:53:38 Outpatient SFA SFA [id number] Georgi Delaney 2023-06-20 08:45:00 2023-06-20 09:49:50 Outpatient R SELFCHANEL [facility] [id number] [facility] 2023-06-19 00:00:00 2023-06-19 00:00:00 Travel 1.2.840.1 22886.1.1 3.104.2.7 .3.608482 .8 1.2.840.114 350.1.13.10 4.2.7.3.698 084.8 [id number] [facility] 2023-06-18 17:35:48 2023-06-18 17:35:48 Outpatient SFA SFA [id number] Georgi Delaney 2023-06-14 18:57:51 2023-06-14 18:57:51 Outpatient SFA SFA [id number] Georgi Delaney 2023-06-12 12:20:21 2023-06-12 12:20:21 Outpatient SFA SFA [id number] Georgi Delaney 2023-06-12 00:00:00 2023-06-12 00:00:00 Patient Secure Msg Doctor Unassigned, [employer] 1.2.840.1 18777.1.1 3.104.2.7 .3.691467 .8 [id number] [facility] 2023-06-07 18:30:14 2023-06-07 18:30:14 Outpatient SFA SFA [id number] Georgi Delaney 2023-06-06 12:03:13 2023-06-06 12:03:13 Outpatient SFA SFA [id number] Georgi Delaney 2023-06-06 08:45:00 2023-06-06 09:45:02 Outpatient R SELFCHANEL [facility] [id number] [facility] 2023-06-05 11:42:00 2023-06-05 11:42:00 Outpatient SFA SFA [id number] Georgi Delaney 2023-06-05 00:00:00 2023-06-05 00:00:00 Travel 1.2.840.1 43252.1.1 3.104.2.7 .3.875953 .8 1.2.840.114 350.1.13.10 4.2.7.3.698 084.8 [id number] [facility] 2023-05-30 17:31:37 2023-05-30 17:31:37 Outpatient SFA SFA [id number] Georgi Delaney 2023-05-30 00:00:00 2023-05-30 00:00:00 Telephone Lars Afia 1.2.840.1 37676.1.1 3.104.2.7 .3.747611 .8 [id number] [facility] 2023-05-29 11:50:55 2023-05-29 11:50:55 Outpatient SFA SFA [id number] Georgi Delaney 2023-05-24 18:32:38 2023-05-24 18:32:38 Outpatient SFA SFA [id number] Georgi Delaney 2023-05-24 08:30:00 2023-05-24 08:53:04 Outpatient R AFIA BEAULIEU [facility] [id number] [facility] 2023-05-24 08:30:00 2023-05-24 08:53:04 Office Visit Enriqueta Beaulieussica 1.2.840.1 86889.1.1 3.104.2.7 .3.832876 .8 [id number] [facility] 2023-05-24 00:00:00 2023-05-24 00:00:00 Travel 1.2.840.1 02538.1.1 3.104.2.7 .3.643380 .8 1.2.840.114 350.1.13.10 4.2.7.3.698 084.8 [id number] [facility] 2023-05-23 16:37:51 2023-05-23 16:37:51 Outpatient SFA SFA [id number] Georgi Delaney 2023-05-22 11:25:17 2023-05-22 11:25:17 Outpatient SFA SFA [id number] Georgi Delaney 2023-05-18 00:00:00 2023-05-18 00:00:00 Nurse Triage Jens Carranza, Sharri Canseco 1.2.840.1 68944.1.1 3.104.2.7 .3.409439 .8 [id number] [facility] 2023-05-17 18:32:35 2023-05-17 18:32:35 Outpatient SFA SFA [id number] Georgi Delaney 2023-05-15 17:38:26 2023-05-15 17:38:26 Outpatient SFA SFA [id number] Georgi Delaney 2023-05-10 18:53:57 2023-05-10 18:53:57 Outpatient SFA SFA [id number] Georgi Delaney 2023-05-09 08:45:00 2023-05-09 10:11:14 Outpatient R SHARRI OLSON [facility] [id number] [facility] 2023-05-09 00:00:00 2023-05-09 00:00:00 Travel 1.2.840.1 97924.1.1 3.104.2.7 .3.382598 .8 1.2.840.114 350.1.13.10 4.2.7.3.698 084.8 [id number] [facility] 2023-05-08 11:49:40 2023-05-08 11:49:40 Outpatient SFA SFA [id number] Georgi Delaney 2023-05-04 12:44:08 2023-05-04 12:44:08 Outpatient SFA SFA [id number] Georgi Delaney 2023-05-03 18:32:26 2023-05-03 18:32:26 Outpatient SFA SFA [id number] Georgi Delaney 2023-05-01 11:35:50 2023-05-01 11:35:50 Outpatient SFA SFA [id number] Georgi Delaney 2023-04-26 18:54:59 2023-04-26 18:54:59 Outpatient [place] [id number] Georgi Delaney 2023-04-25 08:45:00 2023-04-25 10:13:07 Outpatient CHANEL HAYES [facility] [id number] [facility] 2023-04-25 00:00:00 2023-04-25 00:00:00 Travel 1.2.840.1 16396.1.1 3.104.2.7 .3.194232 .8 1.2.840.114 350.1.13.10 4.2.7.3.698 084.8 [id number] [facility] 2023-04-24 11:26:23 2023-04-24 11:26:23 Outpatient [place] [id number] Georgi Delaney 2023-04-20 19:36:00 2023-04-20 23:55:00 Emergency X GEORGETTE JEFFREY [facility] E[facility] [id number] [facility] 2023-04-20 19:36:00 2023-04-20 23:55:00 Emergency Georgette Jeffrey S 1.2.840.1 38113.1.1 3.104.2.7 .3.740303 .8 [id number] [facility] 2023-04-20 00:00:00 2023-04-20 00:00:00 Nurse Triage Mildred Harmon 1.2.840.1 79953.1.1 3.104.2.7 .3.106290 .8 [id number] [facility] 2023-04-20 00:00:00 2023-04-20 00:00:00 Travel 1.2.840.1 36894.1.1 3.104.2.7 .3.907910 .8 1.2.840.114 350.1.13.10 4.2.7.3.698 084.8 [id number] [facility] 2023-04-19 18:30:50 2023-04-19 18:30:50 Outpatient SFA [facility] [id number] Georgi Delaney 2023-04-17 14:29:59 2023-04-17 14:29:59 Outpatient SFA [facility] [id number] Georgi Delaney 2023-04-13 08:56:15 2023-04-13 23:59:00 Hospital Encounter Radiology 1.2.840.1 72548.1.1 3.104.2.7 .3.641840 .8 [id number] [facility] 2023-04-13 08:56:15 2023-04-13 23:59:00 Outpatient R RADIOLOGY [facility] [id number] [facility] 2023-04-13 08:55:54 2023-04-13 08:55:54 Hospital Encounter Radiology 1.2.840.1 40140.1.1 3.104.2.7 .3.786662 .8 [id number] [facility] 2023-04-13 08:55:27 2023-04-13 08:55:27 Hospital Encounter Radiology 1.2.840.1 57753.1.1 3.104.2.7 .3.650365 .8 [id number] [facility] 2023-04-12 19:00:40 2023-04-12 19:00:40 Outpatient SFA [facility] [id number] Georgi Delaney 2023-04-10 11:30:44 2023-04-10 11:30:44 Outpatient SFA [facility] [id number] Georgi Delaney 2023-04-05 18:18:42 2023-04-05 18:18:42 Outpatient SFA [facility] [id number] Georgi Delaney 2023-04-04 09:30:00 2023-04-04 10:41:40 Outpatient R SELF, CHANEL [facility] [id number] [facility] 2023-04-04 00:00:00 2023-04-04 00:00:00 Travel 1.2.840.1 00769.1.1 3.104.2.7 .3.651113 .8 1.2.840.114 350.1.13.10 4.2.7.3.698 084.8 [id number] [facility] 2023-04-03 11:21:59 2023-04-03 11:21:59 Outpatient SFA [facility] [id number] Georgi Johnson [place] 2023-03-29 18:55:20 2023-03-29 18:55:20 Outpatient SFA [facility] [id number] Georgi Johnson [place] 2023-03-27 12:02:13 2023-03-27 12:02:13 Outpatient [facility] [id number] Georgi Johnson [place] 2023-03-21 10:15:00 2023-03-21 13:01:48 Outpatient SHARRI LOWE [facility] [id number] [facility] 2023-03-21 00:00:00 2023-03-21 00:00:00 Travel 1.2.840.1 49862.1.1 3.104.2.7 .3.915334 .8 1.2.840.114 350.1.13.10 4.2.7.3.698 084.8 [id number] [facility] 2023-03-20 12:37:00 2023-03-20 12:37:00 Outpatient [facility] [id number] Georgi Johnson [place] 2023-03-19 14:00:00 2023-03-19 14:34:36 Outpatient R AFIA BEAULIEU [facility] [id number] [facility] 2023-03-19 14:00:00 2023-03-19 14:34:36 Office Visit Afia Beaulieu 1.2.840.1 02665.1.1 3.104.2.7 .3.025253 .8 [id number] [facility] 2023-03-19 00:00:00 2023-03-19 00:00:00 Travel 1.2.840.1 10853.1.1 3.104.2.7 .3.272561 .8 1.2.840.114 350.1.13.10 4.2.7.3.698 084.8 [id number] [facility] 2023-03-19 00:00:00 2023-03-19 00:00:00 Orders Only Zhanna Kramer 1.2.840.1 91915.1.1 3.104.2.7 .3.349308 .8 [id number] [facility] 2023-03-16 00:00:00 2023-03-16 00:00:00 Travel 1.2.840.1 20029.1.1 3.104.2.7 .3.150474 .8 1.2.840.114 350.1.13.10 4.2.7.3.698 084.8 [id number] [facility] 2023-03-15 18:23:30 2023-03-15 18:23:30 Outpatient SFA SFA [id number] Georgi Delaney 2023-03-13 15:41:52 2023-03-13 15:41:52 Outpatient SFA SFA [id number] Georgi Johnson [place] 2023-03-09 18:15:48 2023-03-09 18:15:48 Outpatient SFA SFA [id number] Georgi Johnson [place] 2023-03-08 18:27:54 2023-03-08 18:27:54 Outpatient SFA SFA [id number] Georgi Delaney 2023-03-07 17:09:40 2023-03-07 17:09:40 Outpatient SFA SFA [id number] Georgi Johnson [place] 2023-03-06 13:55:04 2023-03-06 13:55:04 Outpatient SFA SFA [id number] Georgi Delaney 2023-03-01 19:02:12 2023-03-01 19:02:12 Outpatient SFA SFA [id number] Georgi Delaney 2023-02-27 12:52:47 2023-02-27 12:52:47 Outpatient SFA SFA [id number] Georgi Delaney 2023-02-27 00:00:00 2023-02-27 00:00:00 Telephone Afia Beaulieu 1.2.840.1 10039.1.1 3.104.2.7 .3.336901 .8 [id number] [facility] 2023-02-26 14:06:01 2023-02-26 23:59:00 Outpatient R AFIA BEAULIEU [facility] [id number] [facility] 2023-02-26 14:06:01 2023-02-26 23:59:00 Hospital Encounter Afia Beaulieu 1.2.840.1 44023.1.1 3.104.2.7 .3.426285 .8 [id number] [facility] 2023-02-26 00:00:00 2023-02-26 00:00:00 Orders Only Doctor Unassigned, [employer] 1.2.840.1 78563.1.1 3.104.2.7 .3.287080 .8 [id number] [facility] 2023-02-23 00:00:00 2023-02-23 00:00:00 Outpatient AFIA MELVIN [facility] [id number] [facility] 2023-02-22 18:59:42 2023-02-22 18:59:42 Outpatient [facility] [id number] Georgi Delaney 2023-02-22 08:00:00 2023-02-22 10:21:38 Outpatient ISELA HAIDER [facility] [id number] [facility] 2023-02-22 00:00:00 2023-02-22 00:00:00 Orders Only Doctor Unassigned, [employer] [facility] 1.2.840.114 350.1.13.10 4.2.7.2.686 [id number] [facility] 2023-02-22 00:00:00 2023-02-22 00:00:00 Travel 1.2.840.1 05650.1.1 3.104.2.7 .3.045349 .8 1.2.840.114 350.1.13.10 4.2.7.3.698 084.8 [id number] [facility] 2023-02-20 00:00:00 2023-02-20 00:00:00 Telephone Afia Beaulieu 1.2.840.1 33597.1.1 3.104.2.7 .3.929029 .8 [id number] [facility] 2023-02-20 00:00:00 2023-02-20 00:00:00 Travel 1.2.840.1 46145.1.1 3.104.2.7 .3.757758 .8 1.2.840.114 350.1.13.10 4.2.7.3.698 084.8 [id number] [facility] 2023-02-19 00:00:00 2023-02-19 00:00:00 Telephone Lars Afia 1.2.840.1 79375.1.1 3.104.2.7 .3.508940 .8 [id number] [facility] 2023-02-16 16:00:00 2023-02-16 16:37:59 Outpatient R AFIA BEAULIEU [facility] [id number] [facility] 2023-02-16 16:00:00 2023-02-16 16:37:59 Office Visit Lars Afia 1.2.840.1 34999.1.1 3.104.2.7 .3.904126 .8 [id number] [facility] 2023-02-16 10:40:55 2023-02-16 10:40:55 Outpatient [facility] [id number] Georgi Delaney 2023-02-16 00:00:00 2023-02-16 00:00:00 Orders Only Doctor Unassigned, [employer] 1.2.840.1 62501.1.1 3.104.2.7 .3.505457 .8 [id number] [facility] 2023-02-16 00:00:00 2023-02-16 00:00:00 Telephone Afia Beaulieu 1.2.840.1 61088.1.1 3.104.2.7 .3.737276 .8 [id number] [facility] 2023-02-16 00:00:00 2023-02-16 00:00:00 Refill Afia Beaulieu 1.2.840.1 62221.1.1 3.104.2.7 .3.581311 .8 [id number] [facility] 2023-02-16 00:00:00 2023-02-16 00:00:00 Travel 1.2.840.1 24738.1.1 3.104.2.7 .3.972917 .8 1.2.840.114 350.1.13.10 4.2.7.3.698 084.8 [id number] [facility] 2023-02-15 18:29:11 2023-02-15 18:29:11 Outpatient SFA S[facility] [id number] Georgi Delaney 2023-01-24 14:36:00 2023-01-24 14:36:00 Outpatient [facility] [id number] Georgi Delaney 2023-01-23 11:08:53 2023-01-23 11:08:53 Outpatient [facility] [id number] Georgi Delaney 2023-01-23 00:00:00 2023-01-23 00:00:00 Orders Only Doctor Unassigned, [employer] 1.2.840.1 91953.1.1 3.104.2.7 .3.425747 .8 [id number] [facility] 2023-01-18 15:07:35 2023-01-18 15:07:35 Outpatient SFA SFA [id number] Georgi Delaney 2023-01-16 16:50:24 2023-01-16 16:50:24 Outpatient SFA SFA [id number] Georgi Delaney 2023-01-08 15:29:19 2023-01-08 15:29:19 Outpatient SFA SFA [id number] Georgi Delaney 2023-01-03 00:00:00 2023-01-03 00:00:00 Orders Only Doctor Unassigned, [employer] 1.2.840.1 38271.1.1 3.104.2.7 .3.851799 .8 [id number] [facility] 2022-12-23 09:11:36 2022-12-23 09:11:36 Outpatient SFA SFA [id number] Georgi Delaney 2022-12-11 16:09:25 2022-12-11 16:09:25 Outpatient SFA SFA [id number] Georgi Delaney 2022-12-05 10:53:45 2022-12-05 10:53:45 Outpatient SFA SFA [id number] Georgi Delaney 2022-11-28 17:46:35 2022-11-28 17:46:35 Outpatient SFA SFA [id number] Georgi Delaney 2022-11-20 00:00:00 2022-11-20 00:00:[address] [facility] 1.2.840.114 350.1.13.10 4.2.7.2.686 [id number] [facility] 2022-11-17 11:28:22 2022-11-17 11:28:22 Outpatient SFA SFA [id number] Georgi Delaney 2022-11-08 13:56:45 2022-11-08 13:56:45 Outpatient SFA SFA [id number] Georgi Delaney 2022-11-01 11:26:47 2022-11-01 11:26:47 Outpatient SFA SFA [id number] Georgi Delaney 2022-10-31 13:04:58 2022-10-31 13:04:58 Outpatient SFA SFA [id number] Georgi Delaney 2022-10-20 11:25:26 2022-10-20 11:25:26 Outpatient SFA SFA [id number] Georgi Delaney 2022-10-19 14:02:23 2022-10-19 14:02:23 Outpatient SFA SFA Georgi Delaney 2022-10-09 10:08:28 2022-10-09 10:08:28 Outpatient SFA SFA Georgi Delaney 2022-09-21 11:54:36 2022-09-21 11:54:36 Outpatient SFA SFA Georgi Delaney 2022-09-15 11:33:15 2022-09-15 11:33:15 Outpatient SFA SFA Georgi Delaney 2022-09-08 10:49:58 2022-09-08 10:49:58 Outpatient SFA SFA Georgi Delaney 2022-09-07 15:51:56 2022-09-07 15:51:56 Outpatient SFA SFA Georgi Delaney 2022-09-05 10:47:25 2022-09-05 10:47:25 Outpatient SFA SFA Georgi Delaney 2022-09-04 11:21:25 2022-09-04 11:21:25 Outpatient SFA SFA Georgi Delaney 2022-08-30 15:33:51 2022-08-30 15:33:51 Outpatient SFA SFA Georgi Delaney 2022-08-30 00:00:00 2022-08-30 00:00:00 Outpatient Visit [id number] -[id number]-[id number] [id number] [id number] [id number]-[id number] [id number] 2022-08-25 10:13:30 2022-08-25 10:13:30 Outpatient SFA SFA Georgi Delaney 2022-08-11 09:20:54 2022-08-11 09:20:54 Outpatient SFA SFA Georgi Delaney 2022-07-28 11:30:57 2022-07-28 11:30:57 Outpatient SFA SFA Georgi Delaney 2022-07-14 11:31:56 2022-07-14 11:31:56 Outpatient [facility] [id number] Georgi Delaney 2022-06-29 15:28:07 2022-06-29 15:28:07 Outpatient SFA SFA [id number] Georgi Delaney 2022-06-29 00:00:00 2022-06-29 00:00:00 Outpatient Visit [id number]- [id number] -8443-99f [id number] [id number] [id number] 2022-06-16 11:17:33 2022-06-16 11:17:33 Outpatient SFA [facility] [id number] Georgi Delaney 2022-06-15 09:41:11 2022-06-15 09:41:11 Outpatient SFA [facility] [id number] Georgi Delaney 2022-06-08 00:00:00 2022-06-08 00:00:00 Outpatient Visit [id number]- 1155-48b2 -td6k-cq1 [id number] 155-48b2-b f9d-tl0c4m [id number] 2022-04-27 00:00:00 2022-04-27 00:00:00 Outpatient Visit [id number]- 74d1-47q1 -bz51-71w [id number]-[id number] 4s9-94z3-y w26-25je25 ab5d1b 2022-03-02 00:00:00 2022-03-02 00:00:00 Outpatient Visit [id number] -[id number]-c29 [id number] [id number] [id number] 2021-07-27 11:56:00 2021-07-27 15:42:00 Emergency X Yamil MESSINA [facility] [id number] [facility] 2021-07-27 11:56:00 2021-07-27 15:42:00 Emergency Yamil Messina [facility] 1.2.840.114 350.1.13.10 4.2.7.2.686 [id number] [id number] [facility] 2021-06-24 22:06:00 2021-06-24 23:54:00 Emergency X YOON PAGE [facility] ERT [id number] [facility] 2021-06-24 22:06:00 2021-06-24 23:54:00 Emergency Yoon Page S [facility] 1.2.840.114 350.1.13.10 4.2.7.2.686 [id number] [id number] [facility] 2021-06-24 00:00:00 2021-06-24 00:00:00 Orders Only Doctor Unassigned, [place] [facility] 1.2840.114 350.1.13.10 4.2.7.2.686 [id number] [id number] [facility] 2021-02-17 14:13:58 2021-02-17 15:19:24 Office Visit Marques Senior [facility] 1.20.114 350.1.13.10 4.2.7.2.686 [id number] [facility] 2021-02-17 14:00:00 2021-02-17 14:00:00 Outpatient R [facility] [id number] [facility] 2021-01-06 00:00:00 2021-01-06 00:00:00 Orders Only Doctor Unassigned, [place] [facility] 1.2.840.114 350.1.13.10 4.2.7.2.686 [id number] 009 [id number] [facility] 2021-01-05 13:58:29 2021-01-05 16:19:12 Office Visit Santos [facility] Resident Aracely Villanueva [facility] 1.2840.114 350.1.13.10 4.2.7.2.686 [id number] [facility] 2021-01-05 14:15:00 2021-01-05 14:15:00 Outpatient R [facility] [id number] [facility] 2020-12-10 00:00:00 2020-12-10 00:00:00 Telephone Silvestre chin [facility] 1.20.114 350.1.13.10 4.2.7.2.686 [id number] [facility] 2020-12-07 14:35:42 2020-12-07 16:30:20 Office Visit Santos, [facility] Resident Kale [facility] 1.2840.114 350.1.13.10 4.2.7.2.686 [id number] [facility] 2020-12-07 14:30:00 2020-12-07 14:30:00 Outpatient R JEANETTE CAMPOS [facility] [id number] [facility] 2020-12-07 00:00:00 2020-12-07 00:00:00 Orders Only Doctor Unassigned, [place] [facility] 1.2840.114 350.1.13.10 4.2.7.2.686 [id number] [facility] 2020-12-02 14:05:00 2020-12-02 14:05:00 Outpatient R BEBE GABRIEL [facility] [id number] [facility] Results Test Description Test Time Test Comments Results Result Co mments Source HCG SERUM [id number] 15:15:00* Test Item Value Reference Range Interpretation Comme nts HCG SERUM QUAL (test code = HCGQL) SERUM NEGATIVE SCREEN NEGATIVE CBC W/O [id number] 14:53:00* Test Item Value Reference Range Interpretation Comme nts WHITE BLOOD CELL (test code = WBC) 12.2 K/mm3 3.5-11.0 H RED BLOOD CELL (test code = RBC) 4.87 M/mm3 4.70-6.10 N HEMOGLOBIN (test code = HGB) 13.7 G/DL 10.4-14.9 N HEMATOCRIT (test code = HCT) 44.4 % 31.5-44.1 H MEAN CELL VOLUME (test code = MCV) 91.2 Fl 84.5-98.6 N MEAN CELL HGB (test code = MCH) 28.1 pg 27.0-34.2 N MEAN CELL HGB CONCETRATION ( test code = MCHC) 30.9 G/DL 31.5-34.0 L RED CELL DISTRIBUTION WIDTH (test code = RDW) 14.2 SD 11.5-14.5 N PLATELET COUNT (test code = PLT) 199 K/mm3 150-450 N MEAN PLATELET VOLUME (test c ode = MPV) 10.50 fL 7.0-10.5 N CULTURE, [id number] 10:18:02SPECIMEN NUMBER: [id number] CULTURE, URINE SPECIMEN NUMBER: [id number] SPECIMEN COMMENT: URINE SOURCE: URINE REPORT STATUS: FINAL FINAL REPORT: 01/11/2024 50-100,000 CFU/ML UROGENITAL KELLY PRESENT NO COMMON PATHOGENS UNLESS OTHERWISE INDICATED, ALL TESTING PERFORMED AT [facility] [address] [place] [address] LANDSCAPE ENGINEER: TOM MORALES M.D. CLIA NUMBER [id number] [place]. [id number] CULTURE, [id number] 00:00:00* Test Item Value Reference Range Interpretation Comme nts CULTURE, URINE (test code = 84661) SPECIMEN NUMBER: [id number] Georgi Tatum, THIRD [id number] 06:31:41* Test Item Value Reference Range Interpretation Comme nts TSH, THIRD GENERATION (test code = 2821) 0.104 UIU/ML 0.400-4.100 L UNLESS OTHERWISE INDICATED, ALL TESTING PERFORMED AT [facility] [address] [place] [address] LANDSCAPE ENGINEER: TOM MORALES M.D. CLIA NUMBER [id number] [place]. [id number] TSH, THIRD [id number] 00:00:00* Test Item Value Reference Range Interpretation Comme nts TSH, THIRD GENERATION (test code = 2821) 0.104 UIU/ML Georgi Matthews, THIRD [id number] 00:00:00* Test Item Value Reference Range Interpretation Comme nts TSH, THIRD GENERATION (test code = 2821) 0.104 UIU/ML Georgi Matthews, THIRD [id number] 00:00:00* Test Item Value Reference Range Interpretation Comme nts TSH, THIRD GENERATION (test code = 2821) 0.104 UIU/ML Georgi DelaneyREFERRAL- REQUEST/[id number] 16:25:56Ordered by an unspecified provider.[facility]/[id number] 16:25:56[facility] by an unspecified provider[facility]/[id number] 16:25:56Ordered by an unspecified provider.[facility]/[id number] 16:25:56Ordered by an unspecified provider.[facility]/[id number] 16:25:56Ordered by an unspecified provider.[facility]/[id number] 16:25:56Ordered by an unspecified provider.[facility]REF[facility]/[id number] 16:25:56Ordered by an unspecified provider.[facility]/[id number] 16:25:56Ordered by an unspecified provider.[facility]REF[facility]- REQUEST/[id number] 16:25:56Ordered by an unspecified provider.[facility]REF[facility]- REQUEST/[id number] 16:25:56Ordered by an unspecified provider.[facility]REF[facility]- REQUEST/[id number] 16:25:56Ordered by an unspecified provider.[facility]/[id number] 16:25:56Ordered by an unspecified provider.[facility]REF[facility]- REQUEST/[id number] 16:25:56[facility] by an unspecified provider[facility]/[id number] 16:25:56Ordered by an unspecified provider.General acute hospital LUMBAR SPINE 4 [id number] 20:17:08HISTORY: ?Low back pain. FINDINGS: AP, lateral [...] mild changes of disc disease at L3-L4, L4-L5.[facility] acute hospital THORACIC SPINE 2 [id number] 20:15:05HISTORY: ?Back pain. COMPARISON: None. TECHNIQUE: AP and lateral views of the thoracic spines are submitted. FINDINGS: No compression fracture detected. No aggressive bone lesions orparavertebral soft tissue swelling. Small osteophytes are seen along theventral and lateral vertebral margins at middle and lower thoracic levels. CONCLUSIONS: No fracture.[facility] TEST 2023-10-17 06:14:00* Test Item Value Reference Range Interpretation Comme nts POCT PREG (test code = 1605) Negative On board controls acceptable with C Line (test code = 3574) Yes POCT PREG LOT # (test code = 3575) [id number] POCT PREG TEST DATE ( test code = 3576) 11/18/2024 Lab Interpretation (test cod e = 43213-0) Normal [facility] [id number] 06:14:00* Test Item Value Reference Range Interpretation Comme nts POCT PREG (test code = 1605) Negative On board controls acceptable with C Line (test code = 3574) Yes POCT PREG LOT # (test code = 3575) [id number] POCT PREG TEST DATE ( test code = 3576) 11/18/2024 Lab Interpretation (test cod e = 73720-7) [facility] [id number] 06:14:00* Test Item Value Reference Range Interpretation Comme nts POCT PREG (test code = 1605) Negative On board controls acceptable with C Line (test code = 3574) Yes POCT PREG LOT # (test code = 3575) 690140 POCT PREG TEST DATE ( test code = 3576) 11/18/2024 Lab Interpretation (test cod e = 21707-0) [facility] [id number] 06:14:00* Test Item Value Reference Range Interpretation Comme nts POCT PREG (test code = 1605) Negative On board controls acceptable with C Line (test code = 3574) Yes POCT PREG LOT # (test code = 3575) 513381 POCT PREG TEST DATE ( test code = 3576) 11/18/2024 Lab Interpretation (test cod e = 23123-1) [facility] [id number] 06:14:00* Test Item Value Reference Range Interpretation Comme nts POCT PREG (test code = 1605) Negative On board controls acceptable with C Line (test code = 3574) Yes POCT PREG LOT # (test code = 3575) 394555 POCT PREG TEST DATE ( test code = 3576) 11/18/2024 Lab Interpretation (test cod e = 58782-6) [facility] [id number] 06:14:00* Test Item Value Reference Range Interpretation Comme nts POCT PREG (test code = 1605) Negative On board controls acceptable with C Line (test code = 3574) Yes POCT PREG LOT # (test code = 3575) 403295 POCT PREG TEST DATE ( test code = 3576) 11/18/2024 Lab Interpretation (test cod e = 83075-5) [facility] [id number] 06:14:00* Test Item Value Reference Range Interpretation Comme nts POCT PREG (test code = 1605) Negative On board controls acceptable with C Line (test code = 3574) Yes POCT PREG LOT # (test code = 3575) 873325 POCT PREG TEST DATE ( test code = 3576) 11/18/2024 Lab Interpretation (test cod e = 08512-9) [facility] [id number] 06:14:00* Test Item Value Reference Range Interpretation Comme nts POCT PREG (test code = 1605) Negative On board controls acceptable with C Line (test code = 3574) Yes POCT PREG LOT # (test code = 3575) 212680 POCT PREG TEST DATE ( test code = 3576) 11/18/2024 Lab Interpretation (test cod e = 23839-0) [facility] [id number] 06:14:00* Test Item Value Reference Range Interpretation Comme nts POCT PREG (test code = 1605) Negative On board controls acceptable with C Line (test code = 3574) Yes POCT PREG LOT # (test code = 3575) 116284 POCT PREG TEST DATE ( test code = 3576) 11/18/2024 Lab Interpretation (test cod e = 12084-2) [facility] [id number] 06:14:00* Test Item Value Reference Range Interpretation Comme nts POCT PREG (test code = 1605) Negative On board controls acceptable with C Line (test code = 3574) Yes POCT PREG LOT # (test code = 3575) 139967 POCT PREG TEST DATE ( test code = 3576) 11/18/2024 Lab Interpretation (test cod e = 97157-6) [facility] [id number] 06:14:00* Test Item Value Reference Range Interpretation Comme nts POCT PREG (test code = 1605) Negative On board controls acceptable with C Line (test code = 3574) Yes POCT PREG LOT # (test code = 3575) 881934 POCT PREG TEST DATE ( test code = 3576) 11/18/2024 Lab Interpretation (test cod e = 85352-1) [facility] [id number] 06:14:00* Test Item Value Reference Range Interpretation Comme nts POCT PREG (test code = 1605) Negative On board controls acceptable with C Line (test code = 3574) Yes POCT PREG LOT # (test code = 3575) 787021 POCT PREG TEST DATE ( test code = 3576) 11/18/2024 Lab Interpretation (test cod e = 48489-2) [facility] [id number] 06:14:00* Test Item Value Reference Range Interpretation Comme nts POCT PREG (test code = 1605) Negative On board controls acceptable with C Line (test code = 3574) Yes POCT PREG LOT # (test code = 3575) 746062 POCT PREG TEST DATE ( test code = 3576) 11/18/2024 Lab Interpretation (test cod e = 75923-6) [facility] [id number] 06:14:00* Test Item Value Reference Range Interpretation Comme nts POCT PREG (test code = 1605) Negative On board controls acceptable with C Line (test code = 3574) Yes POCT PREG LOT # (test code = 3575) 029301 POCT PREG TEST DATE ( test code = 3576) 11/18/2024 Lab Interpretation (test cod e = 54106-0) [facility] [id number] 06:14:00* Test Item Value Reference Range Interpretation Comme nts POCT PREG (test code = 1605) Negative On board controls acceptable with C Line (test code = 3574) Yes POCT PREG LOT # (test code = 3575) 393519 POCT PREG TEST DATE ( test code = 3576) 11/18/2024 Lab Interpretation (test cod e = 26040-7) [facility] [id number] 06:14:00* Test Item Value Reference Range Interpretation Comme nts POCT PREG (test code = 1605) Negative On board controls acceptable with C Line (test code = 3574) Yes POCT PREG LOT # (test code = 3575) 978713 POCT PREG TEST DATE ( test code = 3576) 11/18/2024 Lab Interpretation (test cod e = 25379-7) [facility] [id number] 06:14:00* Test Item Value Reference Range Interpretation Comme nts POCT PREG (test code = 1605) Negative On board controls acceptable with C Line (test code = 3574) Yes POCT PREG LOT # (test code = 3575) 935308 POCT PREG TEST DATE ( test code = 3576) 11/18/2024 Lab Interpretation (test cod e = 07991-9) Normal [facility] [id number] 06:14:00* Test Item Value Reference Range Interpretation Comme nts POCT PREG (test code = 1605) Negative On board controls acceptable with C Line (test code = 3574) Yes POCT PREG LOT # (test code = 3575) 614476 POCT PREG TEST DATE ( test code = 3576) 11/18/2024 Lab Interpretation (test cod e = 68499-1) Normal [facility] [id number] 06:14:00* Test Item Value Reference Range Interpretation Comme nts POCT PREG (test code = 1605) Negative On board controls acceptable with C Line (test code = 3574) Yes POCT PREG LOT # (test code = 3575) 643226 POCT PREG TEST DATE ( test code = 3576) 11/18/2024 Lab Interpretation (test cod e = 17576-9) [facility] 04:48:14* Test Item Value Reference Range Interpretation Comme nts FREE T3 (test code = 4273) 2.4 PG/ML 2.2-4.2 FREE T4 (THYROXINE)2023-09-07 04:48:14* Test Item Value Reference Range Interpretation Comme nts FREE T4 (THYROXINE) (test code = 2823) 1.28 NG/DL 0.80-1.90 UNLESS OTHERWISE INDICATED, ALL TESTING PERFORMED AT [facility] [address] [place] [address] LANDSCAPE ENGINEER: TOM MORALES M.D. CLIA NUMBER [id number] [facility] [place] [place]. [id number] COUNT INCLUDES THE [facility] 00:00:00* Test Item Value Reference Range [...] de = 2823) 1.28 NG/DL YUNG Pepper [id number] 09:15:10* Test Item Value Reference Range Interpretation Comme nts TSH, THIRD GENERATION (test code = 2821) 0.272 UIU/ML 0.400-4.100 L UNLESS OTHERWISE INDICATED, ALL TESTING PERFORMED AT [facility] [address] [place] [address] LANDSCAPE ENGINEER: TOM MORALES M.D. CLIA NUMBER [id number] [facility] [place]. [id number] TSH, THIRD [id number] 00:00:00* Test Item Value Reference Range Interpretation Comme nts TSH, THIRD GENERATION (test code = 2821) 0.272 UIU/ML Georgi Matthews THIRD [id number] 00:00:00* Test Item Value Reference Range Interpretation Comme nts TSH, THIRD GENERATION (test code = 2821) 0.272 UIU/ML Georgi Matthews THIRD [id number] 00:00:00* Test Item Value Reference Range Interpretation Comme nts TSH, THIRD GENERATION (test code = 2821) 0.272 UIU/ML Georgi Matthews THIRD [id number] 04:01:26* Test Item Value Reference Range Interpretation Comme nts TSH, THIRD GENERATION (test code = 2821) 0.960 UIU/ML 0.400-4.100 FREE [id number] 04:01:26* Test Item Value Reference Range Interpretation Comme nts FREE T3 (test code = 4273) 2.8 PG/ML 2.2-4.2 FREE T4 (THYROXINE)2023-06-07 04:01:26* Test Item Value Reference Range Interpretation Comme nts FREE T4 (THYROXINE) (test co de = 2823) 1.51 NG/DL 0.80-1.90 HIGH SENSITIVITY [id number] 04:01:09* Test Item Value Reference Range Interpretation Comme nts HIGH SENSITIVITY CRP (test code = 23491) 10.1 MG/L SEE BELOW H hsCRP LEVEL RELATIVE RISK <1.0 MG/L LOW 1.0-3.0 MG/L AVERAGE >3.0 MG/L HIGH (from Philomena TNatalieA. et al. Circulation 2003; 107:499) CBC W/AUTO DIFF WITH [id number] 02:38:59* Test Item Value Reference Range Interpretation [...] 0.00-0.10 ABS NUCLEATED RBCS (test code = 57053) 0.00 K/UL 0.00-0.11 UNLESS OTHER JENSEN INDICATED, ALL TESTING PERFORMED AT [facility] [address] [place] [address] LANDSCAPE ENGINEER: TOM MORALES M.D. [place] NUMBER [id number] [facility] [place]. [id number] TSH, THIRD [id number] 00:00:00* Test Item Value Reference Range Interpretation Comme nts TSH, THIRD GENERATION (test code = 2821) 0.960 UIU/ML Georgi Clark [id number] 00:00:00* Test Item Value Reference Range Interpretation Comme nts FREE T3 (test code = 4273) 2.8 PG/ML Georgi DelaneyCOUNT INCLUDES THE [facility] T4 (THYROXINE)2023-06-07 00:00:00* Test Item Value Reference Range Interpretation Comme nts FREE T4 (THYROXINE) (test co de = 2823) 1.51 NG/DL Georgi DelaneyHIGH SENSITIVITY [id number] 00:00:00* Test Item Value Reference Range Interpretation Comme nts HIGH SENSITIVITY CRP (test c ode = 81561) 10.1 MG/L Georgi DelaneyCBC W/AUTO [id number] 00:00:00* Test Item Value Reference Range Interpretation [...] ABS NUCLEATED RBCS (test cod e = 80249) 0.00 K/UL Georgi DelaneyTSH, THIRD [id number] 00:00:00* Test Item Value Reference Range Interpretation Comme nts TSH, THIRD GENERATION (test code = 2821) 0.960 UIU/ML Georgi Delaney [id number] 00:00:00* Test Item Value Reference Range Interpretation Comme nts FREE T3 (test code = 4273) 2.8 PG/ML Georgi Alex DelaneyCOUNT INCLUDES THE [facility] T4 (THYROXINE)2023-06-07 00:00:00* Test Item Value Reference Range Interpretation Comme nts FREE T4 (THYROXINE) (test co de = 2823) 1.51 NG/DL Georgi Alex RhettHIGH SENSITIVITY [id number] 00:00:00* Test Item Value Reference Range Interpretation Comme nts HIGH SENSITIVITY CRP (test c ode = 91346) 10.1 MG/L Georgi Alex RhettCBC W/AUTO [id number] 00:00:00* Test Item Value Reference Range Interpretation [...] ABS NUCLEATED RBCS (test cod e = 88150) 0.00 K/UL Georgi DelaneyTSH, THIRD [id number] 00:00:00* Test Item Value Reference Range Interpretation Comme nts TSH, THIRD GENERATION (test code = 2821) 0.960 UIU/ML Georgi Donahue [id number] 00:00:00* Test Item Value Reference Range Interpretation Comme nts FREE T3 (test code = 4273) 2.8 PG/ML Georgi DelaneyCOUNT INCLUDES THE [facility] T4 (THYROXINE)2023-06-07 00:00:00* Test Item Value Reference Range Interpretation Comme nts FREE T4 (THYROXINE) (test co de = 2823) 1.51 NG/DL Georgi DelaneyHIGH SENSITIVITY [id number] 00:00:00* Test Item Value Reference Range Interpretation Comme nts HIGH SENSITIVITY CRP (test c ode = 67752) 10.1 MG/L Georgi DelaneyCBC W/AUTO [id number] 00:00:00* Test Item Value Reference Range Interpretation [...] ABS NUCLEATED RBCS (test cod e = 72091) 0.00 K/UL Georgi DelaneyTSH + FREE T4 [id number] 06:33:47* Test Item Value Reference Range Interpretation Comme nts TSH, THIRD GENERATION (test code = 2821) 0.381 UIU/ML 0.400-4.100 L FREE T4 (THYROXINE) (test co de = 2823) 1.49 NG/DL 0.80-1.90 T3 [id number] 06:33:47* Test Item Value Reference Range Interpretation Comme nts T3 TOTAL (test code = 2818) 98 NG/DL 80-200 HIGH SENSITIVITY [id number] 04:12:17* Test Item Value Reference Range Interpretation Comme nts HIGH SENSITIVITY CRP (test code = 70732) 3.5 MG/L SEE BELOW H hsCRP LEVEL RELATIVE RISK <1.0 MG/L LOW 1.0-3.0 MG/L AVERAGE >3.0 MG/L HIGH (from Philomena TBrittani. et al. Circulation 2003; 107:499) UNLESS OTHERWISE INDICATED, ALL TESTING PERFORMED AT [facility] [address] [place] [address] LANDSCAPE ENGINEER: TOM MORALES M.D. CLIA NUMBER [id number] [facility] [place] [place]. [id number] CBC W/AUTO DIFF WITH [id number] 01:43:18* Test Item Value Reference Range Interpretation [...] = 1065) 0.0 /100 WBC'S See_Comment [Automated [employer] ge] The system which generated this result [...] 0.00-0.10 ABS NUCLEATED RBCS (test code = 80415) 0.00 K/UL 0.00-0.11 CBC W/AUTO [id number] 00:00:00* Test Item Value Reference Range Interpretation [...] ABS NUCLEATED RBCS (test cod e = 52577) 0.00 K/UL Georgi Johnson AustinTSH + FREE T4 [id number] 00:00:00* Test Item Value Reference Range Interpretation Comme nts TSH, THIRD GENERATION (test code = 2821) 0.381 UIU/ML FREE T4 (THYROXINE) (test co de = 2823) 1.49 NG/DL Georgi DelaneyT3 [id number] 00:00:00* Test Item Value Reference Range Interpretation Comme nts T3 TOTAL (test code = 2818) 98 NG/DL Georgi DelaneyHIGH SENSITIVITY [id number] 00:00:00* Test Item Value Reference Range Interpretation Comme nts HIGH SENSITIVITY CRP (test c ode = 80671) 3.5 MG/L Georgi DelaneyCBC W/AUTO [id number] 00:00:00* Test Item Value Reference Range Interpretation [...] ABS NUCLEATED RBCS (test cod e = 67463) 0.00 K/UL Georgi DelaneyTSH + FREE T4 [id number] 00:00:00* Test Item Value Reference Range Interpretation Comme nts TSH, THIRD GENERATION (test code = 2821) 0.381 UIU/ML FREE T4 (THYROXINE) (test co de = 2823) 1.49 NG/DL Georgi DelaneyT3 [id number] 00:00:00* Test Item Value Reference Range Interpretation Comme nts T3 TOTAL (test code = 2818) 98 NG/DL Georgi DelaneyHIGH SENSITIVITY [id number] 00:00:00* Test Item Value Reference Range Interpretation Comme nts HIGH SENSITIVITY CRP (test c ode = 54097) 3.5 MG/L Georgi DelaneyCBC W/AUTO [id number] 00:00:00* Test Item Value Reference Range Interpretation [...] ABS NUCLEATED RBCS (test cod e = 21562) 0.00 K/UL Georgi Matthews + FREE T4 [id number] 00:00:00* Test Item Value Reference Range Interpretation Comme amador TSH, THIRD GENERATION (test code = 2821) 0.381 UIU/ML FREE T4 (THYROXINE) (test co de = 2823) 1.49 NG/DL Georgi DelaneyT3 [id number] 00:00:00* Test Item Value Reference Range Interpretation Comme amador T3 TOTAL (test code = 2818) 98 NG/DL Georgi DelaneyHIGH SENSITIVITY [id number] 00:00:00* Test Item Value Reference Range Interpretation Comme amador HIGH SENSITIVITY CRP (test c ode = 55970) 3.5 MG/L Georgi Matthews THIRD [id number] 12:02:55* Test Item Value Reference Range Interpretation Comme amador TSH, THIRD GENERATION (test code = 2821) 0.678 UIU/ML 0.400-4.100 UNLESS OTHERWISE INDICATED, ALL TESTING PERFORMED AT [facility] [address] [place] [address] LANDSCAPE ENGINEER: TOM MORALES M.D. CLIA NUMBER [id number] [facility] [place] [place]. [id number] TSH, THIRD [id number] 00:00:00* Test Item Value Reference Range Interpretation Comme amador TSH, THIRD GENERATION (test code = 2821) 0.678 UIU/ML Georgi Matthews THIRD [id number] 00:00:00* Test Item Value Reference Range Interpretation Comme amador TSH, THIRD GENERATION (test code = 2821) 0.678 UIU/ML Georgi Matthews THIRD [id number] 00:00:00* Test Item Value Reference Range Interpretation Comme amador TSH, THIRD GENERATION (test code = 2821) 0.678 UIU/ML Georgi DelaneyHEMOGLOBIN [id number] 03:11:34* Test Item Value Reference Range Interpretation Comme amador HEMOGLOBIN A1c (test code = 79359) 5.9 % 4.2-5.6 H [employer] GUIDELINES FOR HGB A1C: [...] INDICATED, ALL TESTING PERFORMED AT [facility] [employer] [address] [place] [id number] LANDSCAPE ENGINEER: TOM MORALES M.D. [place] NUMBER [id number] [facility] [place]. [id number] HEMOGLOBIN [id number] 00:00:00* Test Item Value Reference Range Interpretation Comme amador HEMOGLOBIN A1c (test code = 67818) 5.9 % Georgi DelaneyHEMOGLOBIN [id number] 00:00:00* Test Item Value Reference Range Interpretation Comme amador HEMOGLOBIN A1c (test code = 30077) 5.9 % Georgi DelaneyHEMOGLOBIN [id number] 00:00:00* Test Item Value Reference Range Interpretation Comme amador HEMOGLOBIN A1c (test code = 02808) 5.9 % Georgi Matthews, THIRD [id number] 00:00:00* Test Item Value Reference Range Interpretation Comme amador TSH, THIRD GENERATION (test code = 2821) 0.753 UIU/ML Georgi TatumH, THIRD [id number] 00:00:00* Test Item Value Reference Range Interpretation Comme amador TSH, THIRD GENERATION (test code = 2821) 0.753 UIU/ML Georgi TatumH, THIRD [id number] 00:00:00* Test Item Value Reference Range Interpretation Comme amador TSH, THIRD GENERATION (test code = 2821) 0.753 UIU/ML Georgi DelaneyCOMPREHENSIVE METABOLIC [id number] 07:39:28* Test Item Value Reference Range Interpretation Comme nts GLUCOSE (test code = 2217) 112 MG/DL 70-99 H BUN (test code = 2208) 14 MG/DL 6-20 CREATININE (test code = 2214) 0.79 MG/DL 0.60-1.30 eGFR (2020 CKD-EPI) (test code = 07570) 101 ML/MIN/1.73 >60 CALC BUN/CREAT (test code [...] 5-40 UNLESS OTHERWISE INDICATED, ALL TESTING PER[facility]MED [facility] [address] [place] [address] LANDSCAPE ENGINEER: EDVIN BENSON M.D. CLIA NUMBER [id number] [facility] [place]. [id number] HEMOGLOBIN [id number] 04:57:47* Test Item Value Reference Range Interpretation Comme [facility] HEMOGLOBIN A1c (test code = 81395) 6.1 % 4.2-5.6 H HEMOGLOBIN [id number] 00:00:00* Test Item Value Reference Range Interpretation Comme [facility] HEMOGLOBIN A1c (test code = 44835) 6.1 % Georgi DelaneyCOMPREHENSIVE METABOLIC [id number] 00:00:00* Test Item Value Reference Range Interpretation Comme [facility] GLUCOSE (test code = 2216) 112 MG/DL BUN (test code = 8) 14 MG/DL CREATININE (test code = 4) 0.79 MG/DL eGFR (2020 CKD-EPI) (test code = 54449) 101 ML/MIN/1.73 CALC BUN/CREAT (test code = [...] (test code = 2219) 24 U/L Georgi Johnson AvocaHEMOGLOBIN [id number] 00:00:00* Test Item Value Reference Range Interpretation Comme [facility] HEMOGLOBIN A1c (test code = 60856) 6.1 % Georgi DelaneyCOMPREHENSIVE METABOLIC [id number] 00:00:00* Test Item Value Reference Range Interpretation Comme [facility] GLUCOSE (test code = 2217) 112 MG/DL BUN (test code = 2208) 14 MG/DL CREATININE (test code = 2214) 0.79 MG/DL eGFR (2020 CKD-EPI) (test code = 63455) 101 ML/MIN/1.73 CALC BUN/CREAT (test code = [...] code = 2219) 24 U/L Georgi DelaneyHEMOGLOBIN [id number] 00:00:00* Test Item Value Reference Range Interpretation Comme amador HEMOGLOBIN A1c (test code = 32546) 6.1 % Georgi DelaneyCOMPREHENSIVE METABOLIC [id number] 00:00:00* Test Item Value Reference Range Interpretation Comme nts GLUCOSE (test code = 2217) 112 MG/DL BUN (test code = 2208) 14 MG/DL CREATININE (test code = 2214) 0.79 MG/DL eGFR (2020 CKD-EPI) (test code = 74965) 101 ML/MIN/1.73 CALC BUN/CREAT (test code = [...] = 2219) 24 U/L Georgi DelaneyTSH, THIRD [id number] 03:25:48* Test Item Value Reference Range Interpretation Comme nts TSH, THIRD GENERATION (test code = 2821) 2.310 UIU/ML 0.400-4.100 UNLESS OTHERWISE INDICATED, ALL TESTING PERFORMED [facility] [employer] [address] [place] [address] LANDSCAPE ENGINEER: EDVIN BENSON M.D. CLIA NUMBER [id number] [place]. [id number] TSH, THIRD [id number] 00:00:00* Test Item Value Reference Range Interpretation Comme [facility] TSH, THIRD GENERATION (test code = 2821) 2.310 UIU/ML TSH, THIRD [id number] 00:00:00* Test Item Value Reference Range Interpretation Comme nts TSH, THIRD GENERATION (test code = 2821) 2.310 UIU/ML Georgi TatumH, THIRD [id number] 00:00:00* Test Item Value Reference Range Interpretation Comme nts TSH, THIRD GENERATION (test code = 2821) 2.310 UIU/ML Georgi TatumH, THIRD [id number] 00:00:00* Test Item Value Reference Range Interpretation Comme nts TSH, THIRD GENERATION (test code = 2821) 2.310 UIU/ML Georgi DelaneyPxulbc10-[id number] 00:00:00* Test Item Value Reference Range Interpretation Comme nts 17-HYDROXYPROGESTERONE (test code = 4304) 45 ng/dL 29-[id number] 00:00:00* Test Item Value Reference Range Interpretation Comme nts 17-HYDROXYPROGESTERONE (test code = 4304) 45 ng/dL 80-[id number] 00:00:00* Test Item Value Reference Range Interpretation Comme nts 17-HYDROXYPROGESTERONE (test code = 4304) 45 ng/dL Georgi DelaneyIvpfxb28-[id number] 00:00:00* Test Item Value Reference Range Interpretation Comme nts 17-HYDROXYPROGESTERONE (test code = 4304) 45 ng/dL Georgi DelaneyOcebhe12-[id number] 00:00:00* Test Item Value Reference Range Interpretation Comme nts 17-HYDROXYPROGESTERONE (test code = 4304) 45 ng/dL Georgi CastellanoH + LH [id number] 00:00:00* Test Item Value Reference Range Interpretation Comme nts FOLLICLE STIM HORMONE (test code = 2700) 4.3 IU/L LUTEINIZING HORMONE (test co de = 2776) 15.6 IU/L [id number] 00:00:00* Test Item Value Reference Range Interpretation Comme nts PROLACTIN (test code = 2800) 17.7 NG/ML TSH, THIRD [id number] 00:00:00* Test Item Value Reference Range Interpretation Comme nts TSH, THIRD GENERATION (test code = 2821) 1.790 UIU/ML FSH + LH [id number] 00:00:00* Test Item Value Reference Range Interpretation Comme nts FOLLICLE STIM HORMONE (test code = 2700) 4.3 IU/L LUTEINIZING HORMONE (test co de = 2776) 15.6 IU/L [id number] 00:00:00* Test Item Value Reference Range Interpretation Comme nts PROLACTIN (test code = 2800) 17.7 NG/ML TSH, THIRD [id number] 00:00:00* Test Item Value Reference Range Interpretation Comme nts TSH, THIRD GENERATION (test code = 2821) 1.790 UIU/ML FSH + LH [id number] 00:00:00* Test Item Value Reference Range Interpretation Comme nts FOLLICLE STIM HORMONE (test code = 2700) 4.3 IU/L LUTEINIZING HORMONE (test co de = 2776) 15.6 IU/L Georgi Johnson [id number] 00:00:00* Test Item Value Reference Range Interpretation Comme nts PROLACTIN (test code = 2800) 17.7 NG/ML Georgi DelaneyTSH, THIRD [id number] 00:00:00* Test Item Value Reference Range Interpretation Comme nts TSH, THIRD GENERATION (test code = 2821) 1.790 UIU/ML Georgi Johnson AustinFSH + LH [id number] 00:00:00* Test Item Value Reference Range Interpretation Comme nts FOLLICLE STIM HORMONE (test code = 2700) 4.3 IU/L LUTEINIZING HORMONE (test co de = 2776) 15.6 IU/L Georgi F [id number] 00:00:00* Test Item Value Reference Range Interpretation Comme nts PROLACTIN (test code = 2800) 17.7 NG/ML Georgi DelaneyTSH, THIRD [id number] 00:00:00* Test Item Value Reference Range Interpretation Comme nts TSH, THIRD GENERATION (test code = 2821) 1.790 UIU/ML Georgi F AustinFSH + LH [id number] 00:00:00* Test Item Value Reference Range Interpretation Comme nts FOLLICLE STIM HORMONE (test code = 2700) 4.3 IU/L LUTEINIZING HORMONE (test co de = 2776) 15.6 IU/L Georgi Del[id number] 00:00:00* Test Item Value Reference Range Interpretation Comme amador PROLACTIN (test code = 2800) 17.7 NG/ML Georgi Matthews, THIRD [id number] 00:00:00* Test Item Value Reference Range Interpretation Comme nts TSH, THIRD GENERATION (test code = 2821) 1.790 UIU/ML Georgi Matthews, THIRD [id number] 04:06:28* Test Item Value Reference Range Interpretation Comme nts TSH, THIRD GENERATION (test code = 2821) 4.000 UIU/ML 0.400-4.100 UNLESS OTHERWISE INDICATED, ALL TESTING PERFORMED [facility] [employer] [address] [place] [address] LANDSCAPE ENGINEER: EDVIN BENSON M.D. CLIA NUMBER [id number] [facility] [place]. [id number] TSH, THIRD [id number] 00:00:00* Test Item Value Reference Range Interpretation Comme nts TSH, THIRD GENERATION (test code = 2821) 4.000 UIU/ML TSH, THIRD [id number] 00:00:00* Test Item Value Reference Range Interpretation Comme nts TSH, THIRD GENERATION (test code = 2821) 4.000 UIU/ML TSH, THIRD [id number] 00:00:00* Test Item Value Reference Range Interpretation Comme nts TSH, THIRD GENERATION (test code = 2821) 4.000 UIU/ML TSH, THIRD [id number] 00:00:00* Test Item Value Reference Range Interpretation Comme nts TSH, THIRD GENERATION (test code = 2821) 4.000 UIU/ML Georgi TatumH, THIRD [id number] 00:00:00* Test Item Value Reference Range Interpretation Comme nts TSH, THIRD GENERATION (test code = 2821) 4.000 UIU/ML Georgi TatumH, THIRD [id number] 00:00:00* Test Item Value Reference Range Interpretation Comme nts TSH, THIRD GENERATION (test code = 2821) 4.000 UIU/ML Georgi Matthews, THIRD [id number] 09:09:54* Test Item Value Reference Range Interpretation Comme nts TSH, THIRD GENERATION (test code = 2821) 9.840 UIU/ML 0.400-4.100 H UNLESS OTHERWISE INDICATED, ALL TESTING PERFORMED [facility] [employer] [address] [place] [address] LANDSCAPE ENGINEER: EDVIN BENSON M.D. [place] NUMBER [id number] [facility] [place]. [id number] 00:00:00* Test Item Value Reference Range Interpretation Comme nts TSH, THIRD GENERATION (test code = 2821) 9.840 UIU/ML [id number] 00:00:00* Test Item Value Reference Range Interpretation Comme nts TSH, THIRD GENERATION (test code = 2821) 9.840 UIU/ML [id number] 00:00:00* Test Item Value Reference Range Interpretation Comme nts TSH, THIRD GENERATION (test code = 2821) 9.840 UIU/ML [id number] 00:00:00* Test Item Value Reference Range Interpretation Comme nts TSH, THIRD GENERATION (test code = 2821) 9.840 UIU/ML [id number] 00:00:00* Test Item Value Reference Range Interpretation Comme nts TSH, THIRD GENERATION (test code = 2821) 9.840 UIU/ML [id number] 00:00:00* Test Item Value Reference Range Interpretation Comme nts TSH, THIRD GENERATION (test code = 2821) 9.840 UIU/ML Georgi Johnson [id number] 00:00:00* Test Item Value Reference Range Interpretation Comme nts TSH, THIRD GENERATION (test code = 2821) 9.840 UIU/ML Georgi [id number] 00:00:00* Test Item Value Reference Range Interpretation Comme nts TSH, THIRD GENERATION (test code = 2821) 9.840 UIU/ML Georgi TatumH, THIRD [id number] 05:03:02* Test Item Value Reference Range Interpretation Comme nts TSH, THIRD GENERATION (test code = 2821) 7.050 UIU/ML 0.400-4.100 H UNLESS OTHERWISE INDICATED, ALL TESTING PERFORMED [facility] [address] [place] [address] LANDSCAPE ENGINEER: EDVIN BENSON M.D. IA NUMBER [id number] [facility] [place] [place]. [id number] 00:00:00* Test Item Value Reference Range Interpretation Comme nts TSH, THIRD GENERATION (test code = 2821) 7.050 UIU/ML [id number] 00:00:00* Test Item Value Reference Range Interpretation Comme nts TSH, THIRD GENERATION (test code = 2821) 7.050 UIU/ML [id number] 00:00:00* Test Item Value Reference Range Interpretation Comme nts TSH, THIRD GENERATION (test code = 2821) 7.050 UIU/ML [id number] 00:00:00* Test Item Value Reference Range Interpretation Comme nts TSH, THIRD GENERATION (test code = 2821) 7.050 UIU/ML [id number] 00:00:00* Test Item Value Reference Range Interpretation Comme nts TSH, THIRD GENERATION (test code = 2821) 7.050 UIU/ML [id number] 00:00:00* Test Item Value Reference Range Interpretation Comme nts TSH, THIRD GENERATION (test code = 2821) 7.050 UIU/ML Georgi F [id number] 00:00:00* Test Item Value Reference Range Interpretation Comme nts TSH, THIRD GENERATION (test code = 2821) 7.050 UIU/ML Georgi F [id number] 00:00:00* Test Item Value Reference Range Interpretation Comme nts TSH, THIRD GENERATION (test code = 2821) 7.050 UIU/ML Georgi F [facility]/AUTO DIFF WITH [id number] 03:06:39* Test Item Value Reference Range Interpretation [...] 0.00-0.10 ABS NUCLEATED RBCS (test code = 59597) 0.00 K/UL 0.00-0.11 UNLESS OTHER JENSEN INDICATED, ALL TESTING PERFORMED [facility] [address] [place] [address] LANDSCAPE ENGINEER: EDVNI BENSON M.D. CLIA NUMBER [id number] [facility] [place]. [id number] CBC W/AUTO [id number] 00:00:00* Test Item Value Reference Range Interpretation [...] ABS NUCLEATED RBCS (test cod e = 28302) 0.00 K/UL CBC W/AUTO [id number] 00:00:00* Test Item Value Reference Range Interpretation [...] ABS NUCLEATED RBCS (test cod e = 09209) 0.00 K/UL CBC W/AUTO [id number] 00:00:00* Test Item Value Reference Range Interpretation [...] ABS NUCLEATED RBCS (test cod e = 94040) 0.00 K/UL CBC W/AUTO [id number] 00:00:00* Test Item Value Reference Range Interpretation [...] ABS NUCLEATED RBCS (test cod e = 14156) 0.00 K/UL CBC W/AUTO [id number] 00:00:00* Test Item Value Reference Range Interpretation [...] ABS NUCLEATED RBCS (test cod e = 58185) 0.00 K/UL CBC W/AUTO [id number] 00:00:00* Test Item Value Reference Range Interpretation [...] ABS NUCLEATED RBCS (test cod e = 78069) 0.00 K/UL Georgi DelaneyCBC W/AUTO [id number] 00:00:00* Test Item Value Reference Range Interpretation [...] ABS NUCLEATED RBCS (test cod e = 60053) 0.00 K/UL Georgi DelaneyC W/AUTO [id number] 00:00:00* Test Item Value Reference Range Interpretation [...] ABS NUCLEATED RBCS (test cod e = 29387) 0.00 K/UL Georgi Johnson [facility] W/AUTO DIFF WITH [id number] 10:01:09* Test Item Value Reference Range Interpretation [...] 0.00-0.10 ABS NUCLEATED RBCS (test code = 50477) TEST NOT PERFORMED K/UL 0.00-0.11 COMMENTS (test code = 1016) TEST NOT PERFORMED CBC W/AUTO [id number] 00:00:00* Test Item Value Reference Range Interpretation [...] K/UL ABS NUCLEATED RBCS (test code = 45437) TEST NOT PERFORMED K/UL COMMENTS (test code = 1016) TEST NOT PERFORMED CBC W/AUTO [id number] 00:00:00* Test Item Value Reference Range Interpretation [...] K/UL ABS NUCLEATED RBCS (test code = 10755) TEST NOT PERFORMED K/UL COMMENTS (test code = 1016) TEST NOT PERFORMED CBC W/AUTO [id number] 00:00:00* Test Item Value Reference Range Interpretation [...] K/UL ABS NUCLEATED RBCS (test code = 14456) TEST NOT PERFORMED K/UL COMMENTS (test code = 1016) TEST NOT PERFORMED CBC W/AUTO [id number] 00:00:00* Test Item Value Reference Range Interpretation [...] K/UL ABS NUCLEATED RBCS (test code = 75758) TEST NOT PERFORMED K/UL COMMENTS (test code = 1016) TEST NOT PERFORMED CBC W/AUTO [id number] 00:00:00* Test Item Value Reference Range Interpretation [...] K/UL ABS NUCLEATED RBCS (test code = 14367) TEST NOT PERFORMED K/UL COMMENTS (test code = 1016) TEST NOT PERFORMED CBC W/AUTO [id number] 00:00:00* Test Item Value Reference Range Interpretation [...] K/UL ABS NUCLEATED RBCS (test code = 01888) TEST NOT PERFORMED K/UL COMMENTS (test code = 1016) TEST NOT PERFORMED Georgi DelaneyCBC W/AUTO [id number] 00:00:00* Test Item Value Reference Range Interpretation [...] K/UL ABS NUCLEATED RBCS (test code = 18249) TEST NOT PERFORMED K/UL COMMENTS (test code = 1016) TEST NOT PERFORMED Georgi DelaneyCBC W/AUTO [id number] 00:00:00* Test Item Value Reference Range Interpretation [...] K/UL ABS NUCLEATED RBCS (test code = 57868) TEST NOT PERFORMED K/UL COMMENTS (test code = 1016) TEST NOT PERFORMED Georgi Alex TatumKenan, THIRD [id number] 06:29:33* Test Item Value Reference Range Interpretation Comme nts TSH, THIRD GENERATION (test code = 2821) 7.090 UIU/ML 0.400-4.100 H UNLESS OTHERWISE INDICATED, ALL TESTING PERFORMED [facility] [address] [place] [address] LANDSCAPE ENGINEER: EDVIN BENSON M.D. CLIA NUMBER [id number] [place]. [id number] LIPID [id number] 04:58:53* Test Item Value Reference Range Interpretation [...] SPECIMENS. FOR MOREINFORMATION, SEE CLIENT ANNOUNCEMENT AT [email or web address] RISK RATIO LDL/HDL (test code = 2238) 3.57 RATIO <3.22 H COMPREHENSIVE METABOLIC [id number] 04:58:53* Test Item Value Reference Range Interpretation Comme nts GLUCOSE (test code = 2217) 85 MG/DL 70-99 BUN (test code = 2208) 12 MG/DL 6-20 CREATININE (test code = 2214) 0.59 MG/DL 0.60-1.30 L eGFR (2020 CKD-EPI) (test code = 97838) 123 ML/MIN/1.73 >60 CALC BUN/CREAT (test code [...] RATIO 1.0-2.6 BILIRUBIN, TOTAL (test code = 220) <0.2 MG/DL See_Comment [Automated me ssage] The system which generated this result transmitted reference range: <=1.2. The reference range was not used to interpret this result as normal/abnormal. ALKALINE PHOSPHATASE (test code = 2204) 89 U/L 40-114 AST (test code = 2218) 12 U/L 9-40 ALT (test code = 2219) 16 U/L 5-40 LIPID [id number] 00:00:00* Test Item Value Reference Range Interpretation Comme nts CHOLESTEROL (test code = 2210) 235 MG/DL TRIGLYCERIDES (test code = 2232) 127 MG/DL HDL CHOLESTEROL (test code = 2220) 46 MG/DL CALC LDL CHOL (test code = 2237) 164 MG/DL RISK RATIO LDL/HDL (test cod e = 2238) 3.57 RATIO COMPREHENSIVE METABOLIC [id number] 00:00:00* Test Item Value Reference Range Interpretation Comme nts GLUCOSE (test code = 2217) 85 MG/DL BUN (test code = 2208) 12 MG/DL CREATININE (test code = 2214) 0.59 MG/DL eGFR (2020 CKD-EPI) (test code = 88662) 123 ML/MIN/1.73 CALC BUN/CREAT (test code = [...] ALT (test code = 2219) 16 U/L [id number] 00:00:00* Test Item Value Reference Range Interpretation Comme nts TSH, THIRD GENERATION (test code = 2821) 7.090 UIU/ML LIPID [id number] 00:00:00* Test Item Value Reference Range Interpretation Comme nts CHOLESTEROL (test code = 2210) 235 MG/DL TRIGLYCERIDES (test code = 2232) 127 MG/DL HDL CHOLESTEROL (test code = 2220) 46 MG/DL CALC LDL CHOL (test code = 2237) 164 MG/DL RISK RATIO LDL/HDL (test cod e = 2238) 3.57 RATIO COMPREHENSIVE METABOLIC [id number] 00:00:00* Test Item Value Reference Range Interpretation Comme nts GLUCOSE (test code = 2217) 85 MG/DL BUN (test code = 2208) 12 MG/DL CREATININE (test code = 2214) 0.59 MG/DL eGFR (2020 CKD-EPI) (test code = 97331) 123 ML/MIN/1.73 CALC BUN/CREAT (test code = [...] ALT (test code = 2219) 16 U/L [id number] 00:00:00* Test Item Value Reference Range Interpretation Comme nts TSH, THIRD GENERATION (test code = 2821) 7.090 UIU/ML LIPID [id number] 00:00:00* Test Item Value Reference Range Interpretation Comme nts CHOLESTEROL (test code = 2210) 235 MG/DL TRIGLYCERIDES (test code = 2232) 127 MG/DL HDL CHOLESTEROL (test code = 2220) 46 MG/DL CALC LDL CHOL (test code = 2237) 164 MG/DL RISK RATIO LDL/HDL (test cod e = 2238) 3.57 RATIO COMPREHENSIVE METABOLIC [id number] 00:00:00* Test Item Value Reference Range Interpretation Comme nts GLUCOSE (test code = 2217) 85 MG/DL BUN (test code = 2208) 12 MG/DL CREATININE (test code = 2214) 0.59 MG/DL eGFR (2020 CKD-EPI) (test code = 47786) 123 ML/MIN/1.73 CALC BUN/CREAT (test code = [...] ALT (test code = 2219) 16 U/L [id number] 00:00:00* Test Item Value Reference Range Interpretation Comme nts TSH, THIRD GENERATION (test code = 2821) 7.090 UIU/ML LIPID [id number] 00:00:00* Test Item Value Reference Range Interpretation Comme nts CHOLESTEROL (test code = 2210) 235 MG/DL TRIGLYCERIDES (test code = 2232) 127 MG/DL HDL CHOLESTEROL (test code = 2220) 46 MG/DL CALC LDL CHOL (test code = 2237) 164 MG/DL RISK RATIO LDL/HDL (test cod e = 2238) 3.57 RATIO COMPREHENSIVE METABOLIC [id number] 00:00:00* Test Item Value Reference Range Interpretation Comme nts GLUCOSE (test code = 2217) 85 MG/DL BUN (test code = 2208) 12 MG/DL CREATININE (test code = 2214) 0.59 MG/DL eGFR (2020 CKD-EPI) (test code = 78582) 123 ML/MIN/1.73 CALC BUN/CREAT (test code = [...] ALT (test code = 2219) 16 U/L [id number] 00:00:00* Test Item Value Reference Range Interpretation Comme nts TSH, THIRD GENERATION (test code = 2821) 7.090 UIU/ML LIPID [id number] 00:00:00* Test Item Value Reference Range Interpretation Comme nts CHOLESTEROL (test code = 2210) 235 MG/DL TRIGLYCERIDES (test code = 2232) 127 MG/DL HDL CHOLESTEROL (test code = 2220) 46 MG/DL CALC LDL CHOL (test code = 2237) 164 MG/DL RISK RATIO LDL/HDL (test cod e = 2238) 3.57 RATIO COMPREHENSIVE METABOLIC [id number] 00:00:00* Test Item Value Reference Range Interpretation Comme nts GLUCOSE (test code = 2217) 85 MG/DL BUN (test code = 2208) 12 MG/DL CREATININE (test code = 2214) 0.59 MG/DL eGFR (2020 CKD-EPI) (test code = 86267) 123 ML/MIN/1.73 CALC BUN/CREAT (test code = [...] ALT (test code = 2219) 16 U/L [id number] 00:00:00* Test Item Value Reference Range Interpretation Comme nts TSH, THIRD GENERATION (test code = 2821) 7.090 UIU/ML LIPID [id number] 00:00:00* Test Item Value Reference Range Interpretation Comme nts CHOLESTEROL (test code = 2210) 235 MG/DL TRIGLYCERIDES (test code = 2232) 127 MG/DL HDL CHOLESTEROL (test code = 2220) 46 MG/DL CALC LDL CHOL (test code = 2237) 164 MG/DL RISK RATIO LDL/HDL (test cod e = 2238) 3.57 RATIO Georgi Alex RhettCOMPREHENSIVE METABOLIC [id number] 00:00:00* Test Item Value Reference Range Interpretation Comme nts GLUCOSE (test code = 2217) 85 MG/DL BUN (test code = 2208) 12 MG/DL CREATININE (test code = 2214) 0.59 MG/DL eGFR (2020 CKD-EPI) (test code = 94155) 123 ML/MIN/1.73 CALC BUN/CREAT (test code = [...] (test code = 2219) 16 U/L Georgi [id number] 00:00:00* Test Item Value Reference Range Interpretation Comme nts TSH, THIRD GENERATION (test code = 2821) 7.090 UIU/ML Georgi DelaneyLIPID [id number] 00:00:00* Test Item Value Reference Range Interpretation Comme nts CHOLESTEROL (test code = 2210) 235 MG/DL TRIGLYCERIDES (test code = 2232) 127 MG/DL HDL CHOLESTEROL (test code = 2220) 46 MG/DL CALC LDL CHOL (test code = 2237) 164 MG/DL RISK RATIO LDL/HDL (test cod e = 2238) 3.57 RATIO Georgi DelaneyCOMPREHENSIVE METABOLIC [id number] 00:00:00* Test Item Value Reference Range Interpretation Comme nts GLUCOSE (test code = 2217) 85 MG/DL BUN (test code = 2208) 12 MG/DL CREATININE (test code = 2214) 0.59 MG/DL eGFR (2020 CKD-EPI) (test code = 28942) 123 ML/MIN/1.73 CALC BUN/CREAT (test code = [...] (test code = 2219) 16 U/L Georgi [id number] 00:00:00* Test Item Value Reference Range Interpretation Comme nts TSH, THIRD GENERATION (test code = 2821) 7.090 UIU/ML Georgi DelaneyLIPID [id number] 00:00:00* Test Item Value Reference Range Interpretation Comme nts CHOLESTEROL (test code = 2210) 235 MG/DL TRIGLYCERIDES (test code = 2232) 127 MG/DL HDL CHOLESTEROL (test code = 2220) 46 MG/DL CALC LDL CHOL (test code = 2237) 164 MG/DL RISK RATIO LDL/HDL (test cod e = 2238) 3.57 RATIO Georgi DelaneyCOMPREHENSIVE METABOLIC [id number] 00:00:00* Test Item Value Reference Range Interpretation Comme nts GLUCOSE (test code = 2217) 85 MG/DL BUN (test code = 2208) 12 MG/DL CREATININE (test code = 2214) 0.59 MG/DL eGFR (2020 CKD-EPI) (test code = 46487) 123 ML/MIN/1.73 CALC BUN/CREAT (test code = [...] (test code = 2219) 16 U/L Georgi [id number] 00:00:00* Test Item Value Reference Range Interpretation Comme nts TSH, THIRD GENERATION (test code = 2821) 7.090 UIU/ML Georgi DelaneyTROPONIN [id number] 21:03:34* Test Item Value Reference Range Interpretation Comments TROPONIN I (test code = 1475968427) 0.000 ng/mL See_Comment [Automated message] The system [...] of biotin. Lab Interpretation (test code = 24454-8) [id number] 20:45:29* Test Item Value Reference Range Interpretation Comments D-DIMER (test code = 9031594585) See_Comment [Automated message] The system which generated [...] a diagnosis. Lab Interpretation (test code = 04475-7) [id number] 19:14:30* Test Item Value Reference Range Interpretation Comme nts WBC (test code = 6690-2) See_Comment [Automated [employer] ge] The system which generated this result transmitted reference range: 4.30 - 11.10 10*3/?L. The reference range was not used to interpret this result as normal/abnormal. RBC (test code = 789-8) See_Comment [Automated [employer]] The system which generated this result [...] 32.1 g/dL 31.6-35.1 RDW-SD (test code = 05707-0) 42.2 fL 39.0-49.9 RDW-CV (test code = 788-0) 13.1 % 12.0-15.5 PLT (test code = 777-3) See_Comment [Automated [employer]] The system which generated this result transmitted reference range: 166 - 358 10*3/?L. The reference range was not used to interpret this result as normal/abnormal. MPV (test code = 26215-1) 9.6 fL 9.5-12.9 NRBC/100 WBC (test code = 3563871441) See_Comment [Automated [employer] ssage] The system which generated this result transmitted reference range: 0.0 - 10.0 /100 WBCs. The reference range was not used to interpret this result as normal/abnormal. NRBC x10^3 (test code = 5296688414) <0.01 See_Comment [Automated [employer]] The system which generated this result transmitted reference range: 10*3/?L. The reference range was not used to interpret this result as normal/abnormal. GRAN MAT (NEUT) % (test code = 770-8) 43.7 % IMM GRAN % (test code = 2093496595) 0.50 % LYMPH % (test code = 736-9) 46.2 % MONO % (test code = 5905-5) 6.2 % EOS % (test code = 713-8) 2.8 % BASO % (test code = 706-2) 0.6 % GRAN MAT x10^3(ANC) (test code = 8599852756) 4.77 10*3/uL 1.88-7.09 IMM GRAN x10^3 (test code = 7057160537) 0.05 10*3/uL 0.00-0.06 LYMPH x10^3 (test code = 731-0) 5.05 10*3/uL 1.32-3.29 H MONO x10^3 (test code = 742-7) 0.68 10*3/uL 0.33-0.92 EOS x10^3 (test code = 711-2) 0.31 10*3/uL 0.03-0.39 BASO x10^3 (test code = 704-7) 0.07 10*3/uL 0.01-0.07 Lab Interpretation (test code = 57408-2) [id number]:39:27* Test Item Value Reference Range Interpretation Comments TROPONIN I (test code = 9652119819) 0.001 ng/mL See_Comment [Automated message] The system [...] of biotin. Lab Interpretation (test code = 68271-5) Normal [facility]. METABOLIC PANEL (22739)2021-07-27 18:29:25* Test Item Value Reference Range Interpretation Comme nts NA (test code = 0994897591) 137 mmol/L 135-145 K (test code = 6579841529) 4.5 mmol/L 3.5-5.0 CL (test code = 5822936353) 104 mmol/L 98-108 CO2 TOTAL (test code = 0756674479) 26 mmol/L 23-31 AGAP (test code = 0212684665) 2-16 BUN (test code = 9860950705) 10 mg/dL 7-23 GLUCOSE (test code = 0956212422) 87 mg/dL 70-110 CREATININE (test code = 6595777561) 0.59 mg/dL 0.50-1.04 TOTAL BILI (test code = 5451272483) 0.4 mg/dL 0.1-1.1 CALCIUM (test code = 7051805479) 9.6 mg/dL 8.6-10.6 T PROTEIN (test code = 3216565335) 7.1 g/dL 6.3-8.2 ALBUMIN (test code = 7078358377) 4.2 g/dL 3.5-5.0 ALK PHOS (test code = 5522297761) 88 U/L 34-122 ALTv (test code = 1742-6) 22 U/L 5-35 AST(SGOT) (test code = 6216948058) 25 U/L 13-40 eGFR (test code = 7971468152) mL/min/1.73m2 MACI (test code = MACI) Association [...] or urine or abnormalities in imaging tests). [facility] Test Item Value Reference Range Interpretation Comme nts MAGNESIUM (test code = 0076040447) 1.8 mg/dL 1.7-2.4 Lab Interpretation (test cod e = 15409-9) Normal [facility] [id number] 18:28:00* Test Item Value Reference Range Interpretation Comme nts POCT PREG (test code = 1605) negative POCT PREG LOT # (test code = 3575) [id number] POCT PREG TEST DATE ( test code = 3576) 2022-09-12 Lab Interpretation (test cod e = 02092-6) Normal [facility] [id number] 19:26:00* Test Item Value Reference Range Interpretation Comme nts POCT PREG (test code = 1605) Negative On board controls acceptable with C Line (test code = 3574) Yes POCT PREG LOT # (test code = 3575) POCT PREG TEST DATE ( test code = 3576) Lab Interpretation (test cod e = 94362-3) Normal [facility] [id number] 19:26:00* Test Item Value Reference Range Interpretation Comme nts POCT PREG (test code = 1605) Negative On board controls acceptable with C Line (test code = 3574) Yes POCT PREG LOT # (test code = 3575) POCT PREG TEST DATE ( test code = 3576) Lab Interpretation (test cod e = 79849-3) Normal [facility] [id number] 19:26:00* Test Item Value Reference Range Interpretation Comme nts POCT PREG (test code = 1605) Negative On board controls acceptable with C Line (test code = 3574) Yes POCT PREG LOT # (test code = 3575) POCT PREG TEST DATE ( test code = 3576) Lab Interpretation (test cod e = 33145-2) [facility] by RT-PCR (HIGH RISK) 2020-12-15 00:00:00* Test Item Value Reference Range Interpretation Comme nts SARS-CoV-2 INTERPRETATION (t est code = 80839) NEGATIVE SOURCE (test code = 93100) NOT SPECIFIED SARS-CoV-2 (COVID-19) by RT-PCR (HIGH RISK)2020-12-15 00:00:00* Test Item Value Reference Range Interpretation Comme nts SARS-CoV-2 INTERPRETATION (t est code = 23083) NEGATIVE SOURCE (test code = 52268) NOT SPECIFIED SARS-CoV-2 (COVID-19) by RT-PCR (HIGH RISK)2020-12-15 00:00:00* Test Item Value Reference Range Interpretation Comme nts SARS-CoV-2 INTERPRETATION (t est code = 04460) NEGATIVE SOURCE (test code = 52601) NOT SPECIFIED SARS-CoV-2 (COVID-19) by RT-PCR (HIGH RISK)2020-12-15 00:00:00* Test Item Value Reference Range Interpretation Comme nts SARS-CoV-2 INTERPRETATION (t est code = 69177) NEGATIVE SOURCE (test code = 86859) NOT SPECIFIED SARS-CoV-2 (COVID-19) by RT-PCR (HIGH RISK)2020-12-15 00:00:00* Test Item Value Reference Range Interpretation Comme nts SARS-CoV-2 INTERPRETATION (t est code = 74923) NEGATIVE SOURCE (test code = 82280) NOT SPECIFIED SARS-CoV-2 (COVID-19) by RT-PCR (HIGH RISK)2020-12-15 00:00:00* Test Item Value Reference Range Interpretation Comme nts SARS-CoV-2 INTERPRETATION (t est code = 01933) NEGATIVE SOURCE (test code = 82616) NOT SPECIFIED Georgi F GfxmwgOUOK-FrB-2 (COVID-19) by RT-PCR (HIGH RISK)2020-12-15 00:00:00* Test Item Value Reference Range Interpretation Comme nts SARS-CoV-2 INTERPRETATION (t est code = 47485) NEGATIVE SOURCE (test code = 55652) NOT SPECIFIED Georgi F ClncyrOYSU-RjT-2 (COVID-19) by RT-PCR (HIGH RISK)2020-12-15 00:00:00* Test Item Value Reference Range Interpretation Comme nts SARS-CoV-2 INTERPRETATION (t est code = 95901) NEGATIVE SOURCE (test code = 87066) NOT SPECIFIED Georgi Johnson AustinPOCT [id number] 20:47:00* Test Item Value Reference Range Interpretation Comme nts POCT PREG (test code = 1605) Negative On board controls acceptable with C Line (test code = 3574) Yes POCT PREG LOT # (test code = 3575) POCT PREG TEST DATE ( test code = 3576) Lab Interpretation (test cod e = 38702-9) [facility] [id number] 20:47:00* Test Item Value Reference Range Interpretation Comme nts POCT PREG (test code = 1605) Negative On board controls acceptable with C Line (test code = 3574) Yes POCT PREG LOT # (test code = 3575) POCT PREG TEST DATE ( test code = 3576) Lab Interpretation (test cod e = 03061-2) Normal [facility] HospitalGC AND CHLAMYDIA AMPLIFIED, [id number] 00:00:00* Test Item Value Reference Range Interpretation Comme nts GONORRHEA, TMA (test code = 78805) NEGATIVE CHLAMYDIA, TMA (test code = 17106) NEGATIVE HIV AB/AG COMBO RFLX [id number] 00:00:00* Test Item Value Reference Range Interpretation Comme nts HIV 1/2 4TH GEN, RFLX CONF ( test code = 3514) NON-REACTIVE ACUTE HEPATITIS [id number] 00:00:00* Test Item Value Reference Range Interpretation Comme nts HEPATITIS A IgM (test code = 49849) NON-REACTIVE HEPATITIS B CORE IgM (test c ode = 4644) NON-REACTIVE HEPATITIS B SURF AG (test co de = 2739) NON-REACTIVE HEPATITIS C ANTIBODY (test c ode = 4675) NON-REACTIVE INTERPRETATION HEPATITIS A: (test code = 2552) (NOTE) INTERPRETATION HEPATITIS B: (test code = 40167) (NOTE) INTERPRETATION HEPATITIS C: (test code = 64050) (NOTE) PAP TEST, THINPREP, [id number] 00:00:00* Test Item Value Reference Range Interpretation Comme nts SOURCE: (test code = 8001) Endocervical SLIDES: (test code = 8011) 1 LMP: (test code = 8021) 10/2020 SPECIMEN ADEQUACY: (test code = 66395) (NOTE) INTERPRETATION: (test code = 20636) NILM/NO EPITH. ABNORMALITY;SEE BELOW MARKETING MGR: (test code = 8101) RANJEET Riley(ASCP)IAC LOCATION: (test code = 76748) (NOTE) CPT: (test code = 8140) (NOTE) [id number] 00:00:00* Test Item Value Reference Range Interpretation Comme nts RPR RESULT (test code = 3501) NON-REACTIVE RPR TITER (test code = 3500) NOT INDIC. TITER HPV HIGH RISK WITH GENOTYPE, [id number] 00:00:00* Test Item Value Reference Range Interpretation Comme nts HPV HIGH RISK INTERP (test c ode = 08200) NEGATIVE HPV 16 (test code = 21394) NEGATIVE HPV 18 (test code = 07051) NEGATIVE HPV, HR, OTHER GENOTYPES (te st code = 42437) NEGATIVE VAGINAL PATHOGENS DNA [id number] 00:00:00* Test Item Value Reference Range Interpretation Comme nts ANNE MARIE SPECIES (test code = 73212) NEGATIVE G. VAGINALIS (test code = 39873) NEGATIVE T. VAGINALIS (test code = 62184) NEGATIVE HIV AB/AG COMBO RFLX [id number] 00:00:00* Test Item Value Reference Range Interpretation Comme nts HIV 1/2 4TH GEN, RFLX CONF ( test code = 3514) NON-REACTIVE GC AND CHLAMYDIA AMPLIFIED, [id number] 00:00:00* Test Item Value Reference Range Interpretation Comme nts GONORRHEA, TMA (test code = 36382) NEGATIVE CHLAMYDIA, TMA (test code = 86957) NEGATIVE ACUTE HEPATITIS [id number] 00:00:00* Test Item Value Reference Range Interpretation Comme nts HEPATITIS A IgM (test code = 58602) NON-REACTIVE HEPATITIS B CORE IgM (test c ode = 4684) NON-REACTIVE HEPATITIS B SURF AG (test co de = 8018) NON-REACTIVE HEPATITIS C ANTIBODY (test c ode = 4615) NON-REACTIVE INTERPRETATION HEPATITIS A: (test code = 2552) (NOTE) INTERPRETATION HEPATITIS B: (test code = 80921) (NOTE) INTERPRETATION HEPATITIS C: (test code = 36221) (NOTE) PAP TEST, THINPREP, [id number] 00:00:00* Test Item Value Reference Range Interpretation Comme nts SOURCE: (test code = 8001) Endocervical SLIDES: (test code = 8011) 1 LMP: (test code = 8021) 10/2020 SPECIMEN ADEQUACY: (test code = 57768) (NOTE) INTERPRETATION: (test code = 13184) NILM/NO EPITH. ABNORMALITY;SEE BELOW MARKETING MGR: (test code = 8101) RANJEET Riley(ASCP)IAC LOCATION: (test code = 94601) (NOTE) CPT: (test code = 8140) (NOTE) HPV HIGH RISK WITH GENOTYPE, [id number] 00:00:00* Test Item Value Reference Range Interpretation Comme nts HPV HIGH RISK INTERP (test c ode = 04346) NEGATIVE HPV 16 (test code = 90139) NEGATIVE HPV 18 (test code = 00368) NEGATIVE HPV, HR, OTHER GENOTYPES (te st code = 44352) NEGATIVE [id number] 00:00:00* Test Item Value Reference Range Interpretation Comme nts RPR RESULT (test code = 3501) NON-REACTIVE RPR TITER (test code = 3500) NOT INDIC. TITER VAGINAL PATHOGENS DNA [id number] 00:00:00* Test Item Value Reference Range Interpretation Comme nts ANNE MARIE SPECIES (test code = 79276) NEGATIVE G. VAGINALIS (test code = 12317) NEGATIVE T. VAGINALIS (test code = 80973) NEGATIVE GC AND CHLAMYDIA AMPLIFIED, [id number] 00:00:00* Test Item Value Reference Range Interpretation Comme nts GONORRHEA, TMA (test code = 98058) NEGATIVE CHLAMYDIA, TMA (test code = 47698) NEGATIVE HIV AB/AG COMBO RFLX [id number] 00:00:00* Test Item Value Reference Range Interpretation Comme nts HIV 1/2 4TH GEN, RFLX CONF ( test code = 3514) NON-REACTIVE ACUTE HEPATITIS [id number] 00:00:00* Test Item Value Reference Range Interpretation Comme nts HEPATITIS A IgM (test code = 72078) NON-REACTIVE HEPATITIS B CORE IgM (test c ode = 4644) NON-REACTIVE HEPATITIS B SURF AG (test co de = 2739) NON-REACTIVE HEPATITIS C ANTIBODY (test c ode = 4691) NON-REACTIVE INTERPRETATION HEPATITIS A: (test code = 2552) (NOTE) INTERPRETATION HEPATITIS B: (test code = 32889) (NOTE) INTERPRETATION HEPATITIS C: (test code = 91443) (NOTE) PAP TEST, THINPREP, [id number] 00:00:00* Test Item Value Reference Range Interpretation Comme nts SOURCE: (test code = 8001) Endocervical SLIDES: (test code = 8011) 1 LMP: (test code = 8021) 10/2020 SPECIMEN ADEQUACY: (test code = 62451) (NOTE) INTERPRETATION: (test code = 57310) NILM/NO EPITH. ABNORMALITY;SEE BELOW MARKETING MGR: (test code = 8101) RANJEET Riley(ASCP)IAC LOCATION: (test code = 15102) (NOTE) CPT: (test code = 8140) (NOTE) HPV HIGH RISK WITH GENOTYPE, [id number] 00:00:00* Test Item Value Reference Range Interpretation Comme nts HPV HIGH RISK INTERP (test c ode = 08603) NEGATIVE HPV 16 (test code = 99676) NEGATIVE HPV 18 (test code = 90626) NEGATIVE HPV, HR, OTHER GENOTYPES (te st code = 38297) NEGATIVE [id number] 00:00:00* Test Item Value Reference Range Interpretation Comme nts RPR RESULT (test code = 3501) NON-REACTIVE RPR TITER (test code = 3500) NOT INDIC. TITER VAGINAL PATHOGENS DNA [id number] 00:00:00* Test Item Value Reference Range Interpretation Comme nts ANNE MARIE SPECIES (test code = 79295) NEGATIVE G. VAGINALIS (test code = 93716) NEGATIVE T. VAGINALIS (test code = 34815) NEGATIVE GC AND CHLAMYDIA AMPLIFIED, [id number] 00:00:00* Test Item Value Reference Range Interpretation Comme nts GONORRHEA, TMA (test code = 72369) NEGATIVE CHLAMYDIA, TMA (test code = 32130) NEGATIVE HIV AB/AG COMBO RFLX [id number] 00:00:00* Test Item Value Reference Range Interpretation Comme nts HIV 1/2 4TH GEN, RFLX CONF ( test code = 3514) NON-REACTIVE PAP TEST, THINPREP, [id number] 00:00:00* Test Item Value Reference Range Interpretation Comme nts SOURCE: (test code = 8001) Endocervical SLIDES: (test code = 8011) 1 LMP: (test code = 8021) 10/2020 SPECIMEN ADEQUACY: (test code = 92180) (NOTE) INTERPRETATION: (test code = 04583) NILM/NO EPITH. ABNORMALITY;SEE BELOW MARKETING MGR: (test code = 8101) RANJEET Riley(ASCP)IAC LOCATION: (test code = 70229) (NOTE) CPT: (test code = 8140) (NOTE) ACUTE HEPATITIS [id number] 00:00:00* Test Item Value Reference Range Interpretation Comme nts HEPATITIS A IgM (test code = 74855) NON-REACTIVE HEPATITIS B CORE IgM (test c ode = 4644) NON-REACTIVE HEPATITIS B SURF AG (test co de = 2739) NON-REACTIVE HEPATITIS C ANTIBODY (test c ode = 4675) NON-REACTIVE INTERPRETATION HEPATITIS A: (test code = 2552) (NOTE) INTERPRETATION HEPATITIS B: (test code = 43628) (NOTE) INTERPRETATION HEPATITIS C: (test code = 23743) (NOTE) [id number] 00:00:00* Test Item Value Reference Range Interpretation Comme nts RPR RESULT (test code = 3501) NON-REACTIVE RPR TITER (test code = 3500) NOT INDIC. TITER HPV HIGH RISK WITH GENOTYPE, [id number] 00:00:00* Test Item Value Reference Range Interpretation Comme nts HPV HIGH RISK INTERP (test c ode = 87435) NEGATIVE HPV 16 (test code = 08587) NEGATIVE HPV 18 (test code = 65013) NEGATIVE HPV, HR, OTHER GENOTYPES (te st code = 38634) NEGATIVE VAGINAL PATHOGENS DNA [id number] 00:00:00* Test Item Value Reference Range Interpretation Comme nts ANNE MARIE SPECIES (test code = 29619) NEGATIVE G. VAGINALIS (test code = ) NEGATIVE T. VAGINALIS (test code = ) NEGATIVE GC AND CHLAMYDIA AMPLIFIED, [id number] 00:00:00* Test Item Value Reference Range Interpretation Comme nts GONORRHEA, TMA (test code = 68899) NEGATIVE CHLAMYDIA, TMA (test code = 42242) NEGATIVE HIV AB/AG COMBO RFLX [id number] 00:00:00* Test Item Value Reference Range Interpretation Comme nts HIV 1/2 4TH GEN, RFLX CONF ( test code = 3514) NON-REACTIVE ACUTE HEPATITIS [id number] 00:00:00* Test Item Value Reference Range Interpretation Comme nts HEPATITIS A IgM (test code = 21903) NON-REACTIVE HEPATITIS B CORE IgM (test c ode = 4644) NON-REACTIVE HEPATITIS B SURF AG (test co de = 2739) NON-REACTIVE HEPATITIS C ANTIBODY (test c ode = 4609) NON-REACTIVE INTERPRETATION HEPATITIS A: (test code = 2552) (NOTE) INTERPRETATION HEPATITIS B: (test code = 04475) (NOTE) INTERPRETATION HEPATITIS C: (test code = 37951) (NOTE) PAP TEST, THINPREP, [id number] 00:00:00* Test Item Value Reference Range Interpretation Comme nts SOURCE: (test code = 8001) Endocervical SLIDES: (test code = 8011) 1 LMP: (test code = 8021) 10/2020 SPECIMEN ADEQUACY: (test code = 94113) (NOTE) INTERPRETATION: (test code = 93455) NILM/NO EPITH. ABNORMALITY;SEE BELOW MARKETING MGR: (test code = 8101) RANJEET Riley(ASCP)IAC LOCATION: (test code = 12053) (NOTE) CPT: (test code = 8140) (NOTE) HPV HIGH RISK WITH GENOTYPE, [id number] 00:00:00* Test Item Value Reference Range Interpretation Comme nts HPV HIGH RISK INTERP (test c ode = 05466) NEGATIVE HPV 16 (test code = 77214) NEGATIVE HPV 18 (test code = 38556) NEGATIVE HPV, HR, OTHER GENOTYPES (te st code = 45212) NEGATIVE [id number] 00:00:00* Test Item Value Reference Range Interpretation Comme nts RPR RESULT (test code = 3501) NON-REACTIVE RPR TITER (test code = 3500) NOT INDIC. TITER VAGINAL PATHOGENS DNA [id number] 00:00:00* Test Item Value Reference Range Interpretation Comme nts ANNE MARIE SPECIES (test code = 44491) NEGATIVE G. VAGINALIS (test code = 89840) NEGATIVE T. VAGINALIS (test code = 49746) NEGATIVE HIV AB/AG COMBO RFLX [id number] 00:00:00* Test Item Value Reference Range Interpretation Comme nts HIV 1/2 4TH GEN, RFLX CONF ( test code = 3514) NON-REACTIVE Georgi DelaneyGC AND CHLAMYDIA AMPLIFIED, [id number] 00:00:00* Test Item Value Reference Range Interpretation Comme nts GONORRHEA, TMA (test code = 58660) NEGATIVE CHLAMYDIA, TMA (test code = 35555) NEGATIVE Georgi DelaneyPAP TEST, THINPREP, [id number] 00:00:00* Test Item Value Reference Range Interpretation Comme nts SOURCE: (test code = 8001) Endocervical SLIDES: (test code = 8011) 1 LMP: (test code = 8021) 10/2020 SPECIMEN ADEQUACY: (test code = 72822) (NOTE) INTERPRETATION: (test code = 20690) NILM/NO EPITH. ABNORMALITY;SEE BELOW MARKETING MGR: (test code = 8101) RANJEET Riley(ASCP)IAC LOCATION: (test code = 64929) (NOTE) CPT: (test code = 8140) (NOTE) Georgi DelaneyACUTE HEPATITIS [id number] 00:00:00* Test Item Value Reference Range Interpretation Comme nts HEPATITIS A IgM (test code = 63996) NON-REACTIVE HEPATITIS B CORE IgM (test c ode = 4644) NON-REACTIVE HEPATITIS B SURF AG (test co de = 2739) NON-REACTIVE HEPATITIS C ANTIBODY (test c ode = 4675) NON-REACTIVE INTERPRETATION HEPATITIS A: (test code = 2552) (NOTE) INTERPRETATION HEPATITIS B: (test code = 19367) (NOTE) INTERPRETATION HEPATITIS C: (test code = 68289) (NOTE) Georgi [id number] 00:00:00* Test Item Value Reference Range Interpretation Comme nts RPR RESULT (test code = 3501) NON-REACTIVE RPR TITER (test code = 3500) NOT INDIC. TITER Georgi DelaneyHPV HIGH RISK WITH GENOTYPE, [id number] 00:00:00* Test Item Value Reference Range Interpretation Comme nts HPV HIGH RISK INTERP (test c ode = 46829) NEGATIVE HPV 16 (test code = 71689) NEGATIVE HPV 18 (test code = 64474) NEGATIVE HPV, HR, OTHER GENOTYPES (te st code = 84965) NEGATIVE Georgi DelaneyVAGINAL PATHOGENS DNA [id number] 00:00:00* Test Item Value Reference Range Interpretation Comme nts ANNE MARIE SPECIES (test code = 24518) NEGATIVE G. VAGINALIS (test code = 60653) NEGATIVE T. VAGINALIS (test code = 94563) NEGATIVE Georgi DelaneyHIV AB/AG COMBO RFLX [id number] 00:00:00* Test Item Value Reference Range Interpretation Comme nts HIV 1/2 4TH GEN, RFLX CONF ( test code = 3514) NON-REACTIVE Georgi DelaneyGC AND CHLAMYDIA AMPLIFIED, [id number] 00:00:00* Test Item Value Reference Range Interpretation Comme nts GONORRHEA, TMA (test code = 79092) NEGATIVE CHLAMYDIA, TMA (test code = 04683) NEGATIVE Georgi DelaneyPAP TEST, THINPREP, [id number] 00:00:00* Test Item Value Reference Range Interpretation Comme nts SOURCE: (test code = 8001) Endocervical SLIDES: (test code = 8011) 1 LMP: (test code = 8021) 10/2020 SPECIMEN ADEQUACY: (test code = 01653) (NOTE) INTERPRETATION: (test code = 76340) NILM/NO EPITH. ABNORMALITY;SEE BELOW MARKETING MGR: (test code = 8101) RANJEET Riley(ASCP)IAC LOCATION: (test code = 22397) (NOTE) CPT: (test code = 8140) (NOTE) Georgi DelaneyACUTE HEPATITIS [id number] 00:00:00* Test Item Value Reference Range Interpretation Comme nts HEPATITIS A IgM (test code = 90113) NON-REACTIVE HEPATITIS B CORE IgM (test c ode = 4644) NON-REACTIVE HEPATITIS B SURF AG (test co de = 1649) NON-REACTIVE HEPATITIS C ANTIBODY (test c ode = 4692) NON-REACTIVE INTERPRETATION HEPATITIS A: (test code = 2552) (NOTE) INTERPRETATION HEPATITIS B: (test code = 17364) (NOTE) INTERPRETATION HEPATITIS C: (test code = 28452) (NOTE) Georgi DelaneyHPV HIGH RISK WITH GENOTYPE, [id number] 00:00:00* Test Item Value Reference Range Interpretation Comme nts HPV HIGH RISK INTERP (test c ode = 05480) NEGATIVE HPV 16 (test code = 68759) NEGATIVE HPV 18 (test code = 63110) NEGATIVE HPV, HR, OTHER GENOTYPES (te st code = 18734) NEGATIVE Georgi [id number] 00:00:00* Test Item Value Reference Range Interpretation Comme nts RPR RESULT (test code = 3501) NON-REACTIVE RPR TITER (test code = 3500) NOT INDIC. TITER Georgi DelaneyVAGINAL PATHOGENS DNA [id number] 00:00:00* Test Item Value Reference Range Interpretation Comme nts ANNE MARIE SPECIES (test code = 09993) NEGATIVE G. VAGINALIS (test code = 25128) NEGATIVE T. VAGINALIS (test code = 23737) NEGATIVE Georgi DelaneyGC AND CHLAMYDIA AMPLIFIED, [id number] 00:00:00* Test Item Value Reference Range Interpretation Comme nts GONORRHEA, TMA (test code = 50902) NEGATIVE CHLAMYDIA, TMA (test code = 14753) NEGATIVE Georgi DelaneyHIV AB/AG COMBO RFLX [id number] 00:00:00* Test Item Value Reference Range Interpretation Comme nts HIV 1/2 4TH GEN, RFLX CONF ( test code = 3514) NON-REACTIVE Georgi DelaneyPAP TEST, THINPREP, [id number] 00:00:00* Test Item Value Reference Range Interpretation Comme nts SOURCE: (test code = 8001) Endocervical SLIDES: (test code = 8011) 1 LMP: (test code = 8021) 10/2020 SPECIMEN ADEQUACY: (test code = 17748) (NOTE) INTERPRETATION: (test code = 96782) NILM/NO EPITH. ABNORMALITY;SEE BELOW MARKETING MGR: (test code = 8101) RANJEET Riley(ASCP)IAC LOCATION: (test code = 59662) (NOTE) CPT: (test code = 8140) (NOTE) Georgi DelaneyACUTE HEPATITIS [id number] 00:00:00* Test Item Value Reference Range Interpretation Comme nts HEPATITIS A IgM (test code = 39645) NON-REACTIVE HEPATITIS B CORE IgM (test c ode = 4644) NON-REACTIVE HEPATITIS B SURF AG (test co de = 2739) NON-REACTIVE HEPATITIS C ANTIBODY (test c ode = 4675) NON-REACTIVE INTERPRETATION HEPATITIS A: (test code = 2552) (NOTE) INTERPRETATION HEPATITIS B: (test code = 26314) (NOTE) INTERPRETATION HEPATITIS C: (test code = 52115) (NOTE) Georgi [id number] 00:00:00* Test Item Value Reference Range Interpretation Comme nts RPR RESULT (test code = 3501) NON-REACTIVE RPR TITER (test code = 3500) NOT INDIC. TITER Georgi DelaneyHPV HIGH RISK WITH GENOTYPE, [id number] 00:00:00* Test Item Value Reference Range Interpretation Comme nts HPV HIGH RISK INTERP (test c ode = 88167) NEGATIVE HPV 16 (test code = 59478) NEGATIVE HPV 18 (test code = 16110) NEGATIVE HPV, HR, OTHER GENOTYPES (te st code = 41067) NEGATIVE Georgi DelaneyVAGINAL PATHOGENS DNA [id number] 00:00:00* Test Item Value Reference Range Interpretation Comme nts ANNE MARIE SPECIES (test code = 65005) NEGATIVE G. VAGINALIS (test code = 42216) NEGATIVE T. VAGINALIS (test code = 59642) NEGATIVE Georgi Delaney Notes Date/Time Note Provider Source 2024-06-26 14:51:28 Chief Complaint Patient presents with Follow-up Follow up on anxiety/depression and weight management. Patient states that she is feeling the same with anxiety/depression. Medication "keeps her level". Britt Lroenzana MA II [facility] 2024-06-25 10:20:00 [facility] ([facility]) Post Anesthesia Evaluation REPORT#:[id number] REPORT STATUS: Signed REPORT INITIALIZATION DATE:06/25/24 TIME:1020 PATIENT: PHANI WILLOUGHBY UNIT #: [id number] ROOM/BED: : 88 AGE: 33 SEX: F ATTEND: Cesar Garcia MD ADM AUTHOR: Ezequiel Campos MD REPT SERVICE DT/TIME: 06/25/24 1020 * ALL edits or amendments must be made on the electronic/computer document * Post Anesthesia Evaluation Anes. changes from pre-op eval ORM Surgeries: Surgery Date and Time: 06/25/2024829 Proposed Primary Procedure: COLONOSCOPY DIAGNOSTIC Anesthetic: MAC Date: 06/25/24 Level of consciousness: patient awake, able to answer questions, participate in this eval. Neurological assessment: Musculoskeletal: moves all extremities, sensation intact, returned to pre- status Vital signs: Last Documented: Result Date Time Pulse Ox 99 06/25 910 B/P 103/55 06/25 910 O2 Delivery Room air 06/25 910 Temp 36.3 06/25 910 Pulse 78 06/25 910 Resp 16 06/25 910 O2 Flow Rate 3.5 06/25 0851 Cardiovascular: CV system stable, vital signs stable Respiratory/Airway: respiratory system stable Pain: adequately controlled Hydration: adequate, euvolemic Temp status: greater than 96.8F, normothermic Presence of N/V: no Anesthesia complications: no Other changes requiring f/u: none Conclusions: no apparent anes. issues Additional comments: Patient stable for discharge from the PACU to phase II of care. at 1021 RPT #: [id number] END OF REPORT [facility] 2024-06-25 08:19:00 THIS REPORT HAS BEEN APPENDED [id number] [facility] [address] [place] [address] PATIENT NAME: PHANI WILLOUGHBY ADMIT DATE: 06/25/24 ACCOUNT NO: [id number] ROOM NO: AGE: 33 REPORT TYPE: ENDOSCOPY REPORT SEX: F ADMITTING PHYSICIAN: ATTENDING PHYSICIAN: Cesar Garcia MD Patient Name: Phani Willoughby Procedure Date: 06/25/2024 8:19 AM Date of : 1990 Gender: Female Attending MD: Cesar Garcia , , Procedure: Colonoscopy Indications: Hematochezia, Change in bowel habits, Constipation, Rectal pain Providers: Cesar Garcia (Doctor), An Carbone RN (Nurse) Referring MD: Juan Castellanos Requesting Provider: Medicines: See the Anesthesia note for documentation of the administered medications Complications: No immediate complications. Procedure: Pre-Anesthesia Assessment: - Prior to the procedure, a History and Physical was performed, and patient medications and allergies were reviewed. The patient is competent. The risks and benefits of the procedure and the sedation options and risks were discussed with the patient. All questions were answered and informed consent was obtained. Patient identification and proposed procedure were verified by the physician, the nurse and the anesthesiologist in the procedure room. Mental Status Examination: alert and oriented. Airway Examination: normal oropharyngeal airway and neck mobility. Respiratory Examination: clear to auscultation. CV Examination: normal. Prophylactic Antibiotics: The patient does not require prophylactic antibiotics. Prior Anticoagulants: The patient has taken no anticoagulant or antiplatelet agents. ASA Grade Assessment: II - A patient with mild systemic disease. After reviewing the risks and benefits, the patient was deemed in satisfactory condition to undergo the procedure. The anesthesia plan was to use monitored anesthesia care (MAC). Immediately prior to administration of medications, the patient was PATIENT NAME: PHANI WILLOUGHBY re-assessed for adequacy to receive sedatives. The heart rate, respiratory rate, oxygen saturations, blood pressure, adequacy of pulmonary ventilation, and response to care were monitored throughout the procedure. The physical status of the patient was re-assessed after the procedure. After I obtained informed consent, the scope was passed under direct vision. Throughout the procedure, the patient's blood pressure, pulse, and oxygen saturations were monitored continuously. The Colonoscope was introduced through the anus and advanced to the terminal ileum, with identification of the appendiceal orifice and IC valve. The colonoscopy was performed without difficulty. The patient tolerated the procedure well. The quality of the bowel preparation was good. The terminal ileum, ileocecal valve, appendiceal orifice, and rectum were photographed. Findings: The perianal and digital rectal examinations were normal. A few small-mouthed diverticula were found in the sigmoid colon. The ileum appeared normal. A scattered area of granular mucosa was found in the recto-sigmoid colon. Biopsies were taken with a cold forceps for histology. Verification of patient identification for the specimen was done by the physician and nurse using the patient's name and date. Estimated blood loss was minimal. Internal hemorrhoids were found during retroflexion. The hemorrhoids were Grade I (internal hemorrhoids that do not prolapse). Impression: - Diverticulosis in the sigmoid colon. - The terminal ileum is normal. - Granularity in the recto-sigmoid colon. Biopsied. - Internal hemorrhoids. Recommendation: - Patient has a contact number available for emergencies. The signs and symptoms of potential delayed complications were discussed with the patient. Return to normal activities tomorrow. Written discharge instructions were provided to the patient. - Discharge patient to home. - Await pathology results. - Return to GI clinic in 2 weeks. - Perform an upper GI endoscopy at appointment to be scheduled. Cesar Garcia, 06/25/2024 8:51:35 AM Number of Addenda: 0 Note Initiated On: 06/25/2024 8:19 AM Scope Withdrawal Time 0 hours 10 minutes 16 seconds PATIENT NAME: PHANI WILLOUGHBY Estimated Blood Loss: Estimated blood loss was minimal. Scope In: 8:29:10 AM Scope Out: 8:42:51 AM [address] [address] [address] Provation {[id number]}.pdf ProVation FT PDF at 0851 SECTION 2 ADDENDUM 1: 06/25/24 1403 D.PROVAT Patient Name: Phani Willoughby Procedure Date: 06/25/2024 8:19 AM Date of : 1990 Gender: Female Attending MD: Cesar Garcia , , Procedure: Colonoscopy Indications: Hematochezia, Change in bowel habits, Constipation, Rectal pain Providers: Cesar Garcia (Doctor), An Carbone, RN (Nurse) Referring MD: Juan Castellanos Requesting Provider: Medicines: See the Anesthesia note for documentation of the administered medications Complications: No immediate complications. Procedure: Pre-Anesthesia Assessment: - Prior to the procedure, a History and Physical was performed, and patient medications and allergies were reviewed. The patient is competent. The risks and benefits of the procedure and the sedation options and risks were discussed with the patient. All questions were answered and informed consent was obtained. Patient identification and proposed procedure were verified by the physician, the nurse and the anesthesiologist in the procedure room. Mental Status Examination: alert and oriented. Airway Examination: normal oropharyngeal airway and neck mobility. Respiratory Examination: clear to auscultation. CV Examination: normal. Prophylactic Antibiotics: The patient does not require prophylactic antibiotics. Prior Anticoagulants: The patient has taken no anticoagulant or antiplatelet agents. ASA Grade Assessment: II - A patient with mild systemic disease. After reviewing the risks and benefits, the patient was deemed in satisfactory condition to undergo the procedure. The anesthesia plan was to use monitored PATIENT NAME: PHANI WILLOUGHBY anesthesia care (MAC). Immediately prior to administration of medications, the patient was re-assessed for adequacy to receive sedatives. The heart rate, respiratory rate, oxygen saturations, blood pressure, adequacy of pulmonary ventilation, and response to care were monitored throughout the procedure. The physical status of the patient was re-assessed after the procedure. After I obtained informed consent, the scope was passed under direct vision. Throughout the procedure, the patient's blood pressure, pulse, and oxygen saturations were monitored continuously. The Colonoscope was introduced through the anus and advanced to the terminal ileum, with identification of the appendiceal orifice and IC valve. The colonoscopy was performed without difficulty. The patient tolerated the procedure well. The quality of the bowel preparation was good. The terminal ileum, ileocecal valve, appendiceal orifice, and rectum were photographed. Findings: The perianal and digital rectal examinations were normal. A few small-mouthed diverticula were found in the sigmoid colon. The ileum appeared normal. A scattered area of granular mucosa was found in the recto-sigmoid colon. Biopsies were taken with a cold forceps for histology. Verification of patient identification for the specimen was done by the physician and nurse using the patient's name and date. Estimated blood loss was minimal. Internal hemorrhoids were found during retroflexion. The hemorrhoids were Grade I (internal hemorrhoids that do not prolapse). Impression: - Diverticulosis in the sigmoid colon. - The terminal ileum is normal. - Granularity in the recto-sigmoid colon. Biopsied. - Internal hemorrhoids. Recommendation: - Patient has a contact number available for emergencies. The signs and symptoms of potential delayed complications were discussed with the patient. Return to normal activities tomorrow. Written discharge instructions were provided to the patient. - Discharge patient to home. - Await pathology results. - Return to GI clinic in 2 weeks. - Perform an upper GI endoscopy at appointment to be scheduled. Cesar Garcia, 06/25/2024 8:51:35 AM Number of Addenda: 0 PATIENT NAME: PHANI WILLOUGHBY Note Initiated On: 06/25/2024 8:19 AM Scope Withdrawal Time 0 hours 10 minutes 16 seconds Estimated Blood Loss: Estimated blood loss was minimal. 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 Passed out to Fariba Hughes LVN [facility] 2024-03-04 14:26:34 Chief Complaint Patient presents with Follow-up Follow up on Psychiatry or Orthopedics. She states that she did not receive a call from Orthopedics and she did not follow up with Psychiatry due to she wants a female vs a male. Britt Lorenzana MA II [facility] 2024-02-05 15:23:20 Chief Complaint Patient presents with Establish Care Changing PCP's due to insurance change. Referral Referral to Psychiatry, Psychologist, Occupational Medicine for disability. She is currently not on disability, is trying to get on. Referral to Neurology for migraines. Referral to Orthopedic for back pain. Britt Lorenzana MA II [facility] 2024-01-29 09:41:54 Letter drafted and sent to pt via [employer]. Count includes the [facility] 2024-01-28 13:50:07 Spoke with pt and let her know message would be sent to provider requesting the letter. It will be sent to her Mychart once written. Count includes the [facility] 2024-01-28 12:15:57 Phani Willoughby is a 33 year old female calling and states she is currently having a migraine and is requesting a letter of diagnoses. Pt is requesting for it to say that she has 3-4 migraines a month, has continuous headaches, and that she goes to hospital for them also. Patient requesting for this to be uploaded to [employer]. Please advise [phone] (home) Teresa Bronson [facility] 2024-01-09 11:41:38 Spoke with patient and informed her that Dorothy Castaneda DNP has provided a letter as requested. Patient verbalized understanding and has requested letter to be sent to her email at [email or web address]. Patient has no other questions at this time. T Angie Bauer LVN [facility] 10:52:40 Provided patient with Feedback/advisement from Dorothy Castaneda DNP. Patient requesting to send a request back to Provider; Patient states that she is not asking for disability support from Provider, she is asking for a letter of diagnosis to submit to the massotherapist that is helping her to file disability. [facility]2024-05-24 10:47:45 Per Dorothy Castaneda DNP "Our department will not support for disability.She should contact PCP." Count includes the [facility]2024-05-21 14:18:58 Patient requesting for Dorothy Castaneda DNP to write a letter of diagnosis, stating that she has degenerative disc disease and osteoarthritis of her lumbar region. States that she is trying to file disability through her [employer] and they are asking if Provider would write this letter for her. In addition, informed patient of feedback from Dorothy Castaneda DNP in reference to needing documentation of 6 weeks of Physical Therapy prior to MRI getting approved through insurance. Patient verbalized understanding and states that she will be losing her medical insurance in under a week. [facility]2024-05-20 17:45:49 Phani Willoughby is a 33 year old female Pt called requesting to speak with clinic on getting disability forms submitted with diagnosis completed with clinic. Please advise. Kuldip Sharla [facility]2024-05-20 17:43:38 Phani Willoughby is a 33 year old female Pt called regarding wanting to speak with group on how she will be able to file medical notes with diagnosis from group for her to file for disability. Please advise. [facility]24-[facility]-20 11:09:26 [facility] Therapy Plan Phani Willoughby is a 33 year old y/o /White female patient referred to the [facility] for management of Ubrelvy/Nurtec and appropriateness of therapy which is being used to treat the diagnosis of Acute treatment of migraines. Phani Willoughby is Experienced to therapy . The stage of Phani Willoughby active disease is Severe Severe "constantly having headaches" but with 2 to 3 migraines per month. Rates pain up to 10 out of 10. Goals of therapy based on therapy plan: Reduce attack frequency, severity, duration and disability, Reduce pain, and Minimize need for repeat dosing or rescue medications Patient self-reported goals of therapy: Reduce attack frequency, severity, duration and disability, Reduce pain, and Minimize need for repeat dosing or rescue medications Based on current therapy, patient progress towards established goals include: Progress being made towards goals The current specialty medication regimen is: Ubrelvy 100mg po prn migraine and Nurtec 75mg po prn migraine. Doesn't take both at same time. Will alternate as both medications "sometimes work and sometimes doesn't". Will usually take if pain >7/10. Denies side effects including GI upset and drowsiness. Concurrent Neurology medications: Topiramate 100mg po BID - denies fatigue, memory impairment, kidney stones. Propranolol 40mg po qAM. BP/Pulse wnl. Takes mid-day. Gabapentin 100mg po TID for back pain Hydroxyzine 100mg po prn insomnia and/or anxiety Venlafaxine XR 75mg po qAM for mood. Ondansetron 4mg po q8hrs prn n/v Methocarbamol 750mg po TID prn spasms Phentermine 37.5mg po qAM for wt loss While speaking with the patient, the Specialty Pharmacist has reviewed and updated the: medication list and allergy list Patient's most recent discharge from a hospital admission related to their specialty condition: The patient was last discharged from the hospital on 10/16/23 - migraine. The [facility] Specialty Pharmacist has reviewed: The H&P, treatment recommendations, and all provider encounters relevant to the management of Acute treatment of migraines and Prevention of migraines. Comorbid conditions: No contraindication to therapy Risk factors identified related to specialty medication therapy and condition: Other Pertinent labs reviewed: Complete metabolic panel Scr, LFTs wnl - 2020 Drug-Drug Interactions: There are no significant drug-drug interactions -Weight: Wt Readings from Last 1 Encounters: 12/26/23 119.7 kg (264 lb) Lab Results Component Value Date/Time BUN 10 07/27/2021 12:06 PM CREAT 0.59 07/27/2021 12:06 PM EGFR 118.1 07/27/2021 12:06 PM Lab Results Component Value Date/Time AST 25 07/27/2021 12:06 PM ALT 22 07/27/2021 12:06 PM BILIT 0.4 07/27/2021 12:06 PM ALKPHOS 88 07/27/2021 12:06 PM Lab Results Component Value Date/Time WBC 10.93 07/27/2021 12:06 PM HGB 13.5 07/27/2021 12:06 PM PLT 268 07/27/2021 12:06 PM After review, the prescribed medication is clinically appropriate. After counseling and education, utilized teach-back method to ensure patient comprehension on injection technique. Home Delivery Process: If the patient chooses to have the medications delivered home, someone needs to be at home to receive the packaged medication. The medication can only sit in the ice box for 6 to 8 hours, and then it needs to be refrigerated. [address] [address] [facility] [address] -Follow-up: Provided patient with PharmD contact information to call if they have any questions. Future Appointments Provider Department Dept Phone 09/18/2024 11:00 AM Afia Beaulieu FNP [facility], [facility] [phone] A comprehensive Welcome Packet is accessible to all patients via the [facility]'s website. For patients who may not have internet access, a printed copy is included with their medication shipment or provided during medication pick-up. Thank you, Navneet Dang [facility] Navneet Dang [facility]2024-05-16 00:00:00 Georgi Natalie [facility]2024-05-10 00:00:00 Georgi [facility]2024-04-18 00:46:40 Awake, alert oriented X4, respiratory even and unlabored,skin w/d color appropriate for race, moves all ext well, pt encouraged to follow up with pcp and or return as needed Pt given printed and verbal discharge instructions regarding Early onset dysthymia , patient verbralized understanding and signature obtained, patient denies any other concerns. Advised to seek medical attention for new/prolonged/worsening of symptoms, No adverse reaction to meds given in ER noted upon discharge Pt ambulated to the [facility] with steady gait [id number] 23:35:25 Pt arrives ambulatory to ED reporting that [...] States she needs someone to talk to. 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 Latuda [Lurasidone] Other - See comments Manic episode/agression Seroquel [Quetiapine] Other - See comments Does not help and causes weight gain Ziprasidone Other - See comments Causes a reaction with metformin & Topamax Past Social History: Tobacco Use Never smoked or used smokeless tobacco. Alcohol Use Yes. Comments: rarely Drug Use Not Currently. Past Surgical History: Past Surgical History: Procedure Laterality Date RECONSTRUCTION FACE (SHX) 1992 dog bite TONSILLECTOMY Review of Systems: Review of Systems Psychiatric/Behavioral: Negative for self-injury and suicidal ideas. The patient is not nervous/anxious. Depressed, frustrated and angry Physical Exam: ED Triage Vitals [11/28/23 2339] Weight 113.4 kg (250 lb) Actual or estimated Estimated by patient/family report Height 1.499 m (4' 11") BP (!) 154/113 Pulse 82 Resp 18 Temp 37.3 ?C (99.1 ?F) Temp source Oral SpO2 100 % Measured on Room air Physical Exam Vitals and nursing note reviewed. Constitutional: General: She is not in acute distress. Appearance: She is well-developed. She is not diaphoretic. HENT: Head: Normocephalic and atraumatic. Right Ear: External ear normal. Left Ear: External ear normal. Nose: Nose normal. Mouth/Throat: Pharynx: No oropharyngeal exudate. Eyes: General: No scleral icterus. Right eye: No discharge. Left eye: No discharge. Conjunctiva/sclera: Conjunctivae normal. Pupils: Pupils are equal, round, and reactive to light. Neck: Thyroid: No thyromegaly. Vascular: No JVD. Trachea: No tracheal deviation. Cardiovascular: Rate and Rhythm: Normal rate and regular rhythm. Heart sounds: Normal heart sounds. No murmur heard. No friction rub. No gallop. Pulmonary: Effort: Pulmonary effort is normal. No respiratory distress. Breath sounds: Normal breath sounds. No stridor. No wheezing or rales. Chest: Chest wall: No tenderness. Abdominal: General: Bowel sounds are normal. There is no distension. Palpations: Abdomen is soft. There is no mass. Tenderness: There is no abdominal tenderness. There is no guarding or rebound. Musculoskeletal: General: No tenderness or deformity. Normal range of motion. Cervical back: Normal range of motion and neck supple. Lymphadenopathy: Cervical: No cervical adenopathy. Skin: General: Skin is warm and dry. Coloration: Skin is not pale. Findings: No erythema or rash. Neurological: Mental Status: She is alert and oriented to person, place, and time. Cranial Nerves: No cranial nerve deficit. Motor: No abnormal muscle tone. Coordination: Coordination normal. Deep Tendon Reflexes: Reflexes are normal and symmetric. Reflexes normal. Psychiatric: Attention and Perception: Attention and perception normal. Mood and Affect: Mood is depressed. Affect is tearful. Speech: Speech normal. Behavior: Behavior normal. Thought Content: Thought content normal. Thought content is not paranoid or delusional. Thought content does not include homicidal or suicidal ideation. Thought content does not include homicidal or suicidal plan. Cognition and Memory: Cognition and memory normal. Judgment: Judgment normal. Radiology: No orders to display Lab Results: Lab Results - No data to display EKG: If EKG completed, see Procedure Note. Orders and Treatments: No orders of the defined types were placed in this encounter. No orders of the defined types were placed in this encounter. First Provider Eval: ED Events Date/Time Event User Comments 11/28/232350 Medical Screening Begins EMILY SINGH MD -- 11/28/232350 First Provider Evaluation EMILY SINGH MD -- ED COURSE Diagnosis/Impression as of 11/29/23 0030 Early onset dysthymia Patient's condition stable, I was able to talk to her for over 30 minutes regarding her issues, she was able to calm down, and feel better after it, will DC Home. Procedures: Procedures MDM: Medical Decision Making Problems Addressed: Early onset dysthymia: self-limited or minor problem Flowsheet Documentation: Scoring Tools: No data recorded Disposition/Condition: ED Disposition ED Disposition Disch - Home Condition Stable Comment -- Discharge Medications: Patient's Medications START taking these medications No medications on file CONTINUE taking these medications which have NOT CHANGED GABAPENTIN 100 MG CAPSULE Take 1 capsule by mouth in the morning and 1 capsule at noon and 1 capsule in the evening. HYDROXYZINE 50 MG TABLET Take 2 tablets at night as needed for insomnia. If unable to sleep after 1 hour take 1 tablet by mouth at night. Can take an additional 2 tablets during the day as needed for anxiety. LEVOTHYROXINE 112 MCG TABLET METFORMIN 500 MG TABLET Take 1 tablet by mouth in the morning and 1 tablet in the evening. Take with meals. METHOCARBAMOL 750 MG TABLET TAKE 1 TABLET BY MOUTH THREE TIMES A DAY NEEDED FOR MUSCLE SPASM NAPROXEN 500 MG TABLET TAKE 1 TABLET DAILY NEEDED FOR MIGRAINE. PHENTERMINE 37.5 MG TABLET Take 1 tablet by mouth in the morning. PROPRANOLOL 40 MG TABLET Take 1 tablet by mouth in the morning. RIMEGEPANT (NURTEC ODT) 75 MG TBDL Take 1 tablet by mouth once daily as needed (Headache). TOPIRAMATE 100 MG TABLET Take 1 tablet by mouth in the morning and 1 tablet in the evening. UBROGEPANT 100 MG TAB Take 1 tablet by mouth as needed for Other (Headache) for up to 64 doses. If symptoms persist or return, may repeat dose after 2 hours. Maximum: 200 mg per 24 hours VENLAFAXINE XR (EFFEXOR XR) 75 MG 24 HR CAPSULE Take 1 capsule by mouth daily with breakfast. START taking Modified Medications as Prescribed No medications on file STOP taking these medications No medications on file Follow-up: Contact information for follow-up Archie Medley Relationship: PCP - General [address] [facility] [id number] Instructions: If symptoms worsen Electronically signed by: Emily Singh MD 11/29/23 0030 [place] [id number] 08:46:25 Please have her schedule an appt, since at our last visit she was happy with her meds. [place] [id number] 10:30:51 Signed letter received by Dr. Blackburn. DC order for PAP therapy noted on patient chart. Called Phani Willoughby to inquire how she wanted to receive the letter. No answer, LVM. [facility] Pat Hudson RNThomas Ville 103924-03-11 09:47:01 Letter requested by patient signed- handed to Wendy to facilitate delivery to patient. Will order discontinuation of apap per patient request. [place] [id number] 12:00:04 Called and spoke to Phani Willoughby regarding [...] drafted and pend for Dr Blackburn review. RITY CLERK Heaven Aguilar [facility] [id number] 01:44:27 Pt given printed and verbal discharge instructions regarding headache, encouraged hydration, Prescription sent to pt's pharmacy Discussed ibuprofen and to take with food to avoid GI distress, alternate with Tylenol to help with pain and/or fever Pt verbalized understanding of instructions,pt encouraged to follow up with pcp and or neurologist Advised to seek medical attention for new/prolonged/worsening of symptoms, No adverse reaction to meds given in ER noted upon discharge PIV d'cd, dressing to site, catheter in tact. Awake, alert oriented, resp reg unlabored, skin w/d, pt leaving in no apparent distress, G Quarles [facility] [id number] 23:47:29 Summary: Triage CC: patient keya started this morning. Patient took her nurtech ODT and went to sleep and this she missed her regular medications but then took them when she got up. Patient is wearing sunglasses in triage. PMHx: see list PSH:see list MEDS:see list LMP: control arm implant Tetanus: UTD Awake, alert, oriented, resp reg unlabored, skin warm, color appropriate for race, moves all ext without difficulty, amb with no assitance Appears in no distress G Maza [facility] [id number] 22:35:00 Regarding: pt has a really bad migraine since early am//requested triage ----- Message from Jeanmarie Guerrero sent at 10/16/2023 10:35 PM SECURITY CLERK ----- Phani Willoughby is a 33 year old female RITY CLERK [facility] [id number] 22:35:00 Adult Triage Assessment Last Clinic Visit: 10/15/23 psychiatry for depression Primary Symptom: Migraine Onset / Duration: this morning Location / Description: right side of head Pain / Severity: 7/10 throbbing in head, crushing, stabbing in ear Associated Symptoms: slept most of the day- caused pt to be "off" schedule on medications, ear/ tooth hurts on that side, puffy and swollen on the right side. Impacted tooth on right side (she thinks), intermittent nausea, pain ABOVE eye. Denies blurry or loss of vision. Fever / Method: denies, does not have access to thermometer Hydration: 4- 16 oz bottles of water, 2-12 oz of soda. Big bowl of menudo and green grapes throughout the day. Denies urinary symptoms Treatment so far: levothyroxine this morning, Nurtec ~1000, tried showering, sleeping with no light/noise, cool compress. Propanolol and toprimate, as prescribed Effect on ADL's: significant LMP: "a long time ago" has implant in arm Pre-existing condition / Immunocompromised: per chart: Borderline personality, migraines, sleep apnea, insomnia, depression Phani Willoughby is a 33 year old female who calls with complaints of severe migraine with no relief from prescribed medications. Assessment and triage completed, per protocol pt should be evaluated in ED now. Patient verbalizes understanding and agrees to follow plan of care. Denies other questions at this time, call back warnings given. [facility] Nurse Triage Reason for Disposition [1] SEVERE headache (e.g., excruciating) AND [2] "worst headache" of life Protocols used: [id number] [facility]2024-03-05 13:21:12 Called Phani Willoughby and left message asking if she wanted us to submit the PAP orders that she previously informed us to hold. Instructed to return call when message received. [facility]2024-02-28 09:41:02 Called patient to schedule appointment for Emelia. No answer [facility] 08[facility]11[facility]02 Please assist pt with scheduling a telehealth appt. Pt does not feel comfortable driving to the office due to not being able to sleep at night. Pt scheduled for an appt today at 9:00. Pls advise. G PfeifferK[facility] Medical [id number] 07:08:08 Phani Willoughby is a 33 year old female Pt is stating that she did not sleep last night and it is too dangerous for her to drive. Pt is asking for today's appt to be converted to a telehealth visit. Please advise Call pt at [phone] (home) G JudgePremier Health [facility] [id number] 10:49:12 [facility] Special[facility] Pharm[facility] Therapy Plan Phani Willoughby is a 33 year old y/o /White female patient referred to the [facility] Special[facility] Pharm[facility] for management of Nurtec and appropriateness of therapy which is being used to treat the diagnosis of Acute treatment of migraines. Phani Willoughby is Experienced to therapy . Switching from Ubrelvy. Prev on Nurtec and endorses efficacy. The stage of Phani Willoughby active disease is Severe "constantly having headaches" but with 2 to 3 migraines per month. Rates pain up to 10 out of 10. Goals of therapy based on therapy plan: Reduce attack frequency, severity, duration and disability, Reduce pain, and Minimize need for repeat dosing or rescue medications Patient self-reported goals of therapy: Reduce attack frequency, severity, duration and disability, Reduce pain, and Minimize need for repeat dosing or rescue medications Based on current therapy, patient progress towards established goals include: Progress being made towards goals The current specialty medication regimen is: Nurtec 75mg po prn migraine to be started on 10/05/23. Concurrent Neurology medications: Topiramate 50mg po BID - denies fatigue, memory impairment, kidney stones. Propranolol 40mg po qAM. BP/Pulse wnl Hydroxyzine 100mg po prn insomnia and/or anxiety Venlafaxine XR 75mg po qAM for mood Previously trialed medications: Ubrelvy - did not work While speaking with the patient, the Specialty Pharmacist has reviewed and updated the: medication list and allergy list Patient's most recent discharge from a hospital admission related to their specialty condition: The patient has not had a recent hospitalization related to their specialty condition. The [facility] Specialty Pharmacist has reviewed: The H&P, treatment recommendations, and all provider encounters relevant to the management of Acute treatment of migraines and Prevention of migraines. Comorbid conditions: No contraindication to therapy Risk factors identified related to specialty medication therapy and condition: None identified Pertinent labs reviewed: Complete metabolic panel Scr wnl Drug-Drug Interactions: There are no significant drug-drug interactions -Weight: Wt Readings from Last 1 Encounters: 09/18/23 121.9 kg (268 lb 11.2 oz) Lab Results Component Value Date/Time BUN 10 07/27/2021 12:06 PM CREAT 0.59 07/27/2021 12:06 PM EGFR 118.1 07/27/2021 12:06 PM Lab Results Component Value Date/Time AST 25 07/27/2021 12:06 PM ALT 22 07/27/2021 12:06 PM BILIT 0.4 07/27/2021 12:06 PM ALKPHOS 88 07/27/2021 12:06 PM Lab Results Component Value Date/Time WBC 10.93 07/27/2021 12:06 PM HGB 13.5 07/27/2021 12:06 PM PLT 268 07/27/2021 12:06 PM After review, the prescribed medication is clinically appropriate. PharmD provided education on Nurtec (Rimegepant): -Dosing: -Treatment: 75mg by mouth x1 (max 75mg per 24hrs) -Side effects: -Common: nausea, abdominal pain -Rare: skin rash/hypersensitivity, dyspnea -: avoid -has implant in arm; has vasectomy Home Delivery Process: If the patient chooses to have the medications delivered home, someone needs to be at home to receive the packaged medication. The medication can only sit in the ice box for 6 to 8 hours, and then it needs to be refrigerated. [id number] [facility] [id number] -Follow-up: Provided patient with PharmD contact information to call if they have any questions. Future Appointments Provider Department Dept Phone 09/18/2024 11:00 AM [facility] [phone] Thank you, Navneet Dang [facility] G Dang [facility]2024-02-19 10:47:34 Noted. Thanks, Dr. Blackburn RITY CLERK IM-PULMONARY DISEASE STAFFKettering Health [facility] Medical [id number] 10:26:05 Called and spoke with Phani Willoughby regarding [...] to Dr Blackburn to keep him updated. G Aguilar [facility] [id number] 09:44:03 Pt is calling to speak with nurse Heaven regarding her SS results, Please advise (home) [facility] Jia WhiteKettering Health [facility] Medical [id number] 15:17:02 Called patient and left message regarding ss results. Patient instructed to return call when message received. [facility]2024-02-16 14:26:28 See routing note for details and prescription. Thanks, Dr. Blackburn [facility]2024-02-16 11:01:13 Phani Willoughby is a 33 year old female Pt is calling requesting to discuss sleep study results pt states its been several weeks and still has not gotten results yet and her medicaid is going to end very soon and would like to get everything done before then. Escalated message to the nurse. Please call to discuss. Please advise. [facility] Dinora VelascoKettering Health [facility] So[facility] Medical [id number] 11:00:00 Addended by: ELLY BLACKBURN MD on: 09/28/2023 02:26 PM Modules accepted: Orders [facility]2023-09-08 23:54:30 Pt given printed and verbal discharge instructions regarding headache and anxiety attack Pt verbalized understanding of instructions, pt awake alert oriented, resp reg unlabored, skin w/d,color appropriate for race, moves all ext well,pt encouraged to follow up with pcp Advised to seek medical attention for new/prolonged/worsening of symptoms No adverse reaction to meds given in ER noted upon discharge PIV d'cd, dressing to site, catheter in tact. Awake, alert oriented, resp reg unlabored, skin w/d, pt leaving amb with steady gait, in no apparent distress Margarita Guerrero RNUTMB - [id number] 20:30:30 Suicide Risk - Assessment and Plan Koppel: 1) Have you wished you were or could go to sleep and not wake up?: (P) Yes 2) Have you had thoughts of killing yourself?: (P) Yes 3) Have you been thinking about how you might kill yourself?: (P) No 4) Suicidal ideation with some intent?: (P) No 5) Have you worked out the details of the plan AND intend to follow through?: (P) No 6) Suicidal Behavior or preparation for suicide?: (P) No Koppel Score: Suggested risk level: (P) Low SAFE-T: Current and past psychiatric diagnoses: (P) Mood Disorder;PTSD;Other (see comments) Presenting symptoms: (P) Anhedonia;Hopelessness or despair;Anxiety and/or panic;Insomnia Family history: (P) Suicidal behavior;Sargent I psychiatric diagnoses requiring hospitalization (sister suicidal behavior, paternal grandmother schizophrenia) Activating Events: (P) Other (see comments) (fight with best friend) Precipitants / stressors: (P) Triggering events leading to humiliation, shame, and/or despair Protective factors: (P) Positive family/friend relationships;Supportive social network of family and friends;Beloved pets;Identified reasons for living (children, family, friends, goals) Access to Lethal Means: Does patient have access to a gun or access to guns?: (P) Yes Specific Questions of Thoughts, Plans, Intent: Frequency- how many times have you had these thought?: (P) Once a week 2.Duration - When you have the thoughts, how long do they last?: (P) Fleeting, a few seconds or minutes 3.Controllability - could/can you stop thinking about killing yourself or wanting to if you want to? "Is it easy, a little hard, very hard, or are you unable?": (P) Easily able to control thoughts" 4.Deterrents - are there things, anyone or anything (family, protestant, pain of ) that have stopped you from wanting to or acting on thoughts of committing suicide?: (P) Deterrents definitelystopped from attempting Reasons for ideation - What are the reasons you have for wanting to or kill yourself? Was it toend pain, stop the way you are feeling, or to get attention, or get revenge and reaction from others?: (P) Completely to end or stop the pain (you couldn't go on living with the pain or how you were feeling) Behavior Assessment: 1.Were there preparatory acts like buying pills, guns, giving things away, or writing suicide note?: (P) No 2.Was an attempt aborted or self - interrupted?: (P) No 3.Was an attempt interrupted by someone else?: (P) No 4.Was there an actual attempt?: (P) No 5.Is there non suicidal self injury? Cutting, biting, skin picking: (P) No 7.Is there homicidal ideation: if so, describe: (P) No Stratification: High Suicide Risk Moderate Suicide Risk Low Suicide [...] of Suicidal Ideation or Behavior Location / Risk: Outpatient / Low: Wish to or suicidal ideation without method, intent, plan or behavior and no history of suicidal behavior. a. Consider referral to behavioral health resources. b. Follow-up with Pediatric provider within 2 weeks. c. Consider developing a safety plan. [facility] [id number] 19:29:16 Pt arrives ambulatory to ED reporting that she is having a panic attack after fighting with a friend. She reports a terrible headache and took a Nurtec @ around 1819 this evening. She changed psychiatrist in January and does not have the meds that usually help her in this state. Alecia Benitez [facility] [id number] 18:00:00 Regardin y f Pt is depressed, anxiety and crying for 2 hours after having an argument with a friend ----- Message from Carmelina Danielson sent at 04/20/2023 6:00 PM CDT ----- Phani Willoughby is a 32 year old female calling pt was in verbal argument with one her friends x 2 hours. She is very depressed x 2hours Crying straight for 2 hours, anxiety x 2 hours Mildred Anders [facility] [id number] 18:00:00 Adult Triage Assessment Last Clinic Visit: 04/04/2023 Psych Primary Symptom: crying for 2 hours after getting into a verbal argument with a friend Onset / Duration: 2 hours Location / Description: systemic Pain / Severity: 7/10 headache "feels like it is turing into a migraine" Associated Symptoms: headache-- a little tightness in chest Fever / Method: none Hydration: normal drinking /urination Treatment so far: none no longer has rescue medications Effect on ADL's: has been sitting -crying for 2 hours LMP: hasn't had period for 2 years. On BC Pre-existing condition / Immunocompromised: pre Diabetic Reason for Disposition [1] Depression AND [2] unable to do any of normal activities (e.g., self care, school, work; in comparison to baseline). Protocols used: [id number] and Pt called for advice related to pt unable to stop crying after argument with friend. Advised to present to [facility] for evaluation And assistance. Pt states that she is concerned that she will be taken for inpatient care. and pt both do not desire. Requesting to continue Medication with current care team. They will present to [facility] Mildred Anders RN [facility] Access Center Triage Nurse Count includes the [facility]2023-07-28 11:49:29 Medication filled already on 02/20/23. Requested Prescriptions Refused Prescriptions Disp Refills TOPIRAMATE 25 mg tablet [Pharmacy Med Name: TOPIRAMATE 25 MG TABLET] 106 tablet 0 Sig: TAKE 1 TABLET BY MOUTH 2 (TWO) TIMES DAILY FOR 7 DAYS, THEN 2 TABLETS 2 (TWO) TIMES DAILY FOR 7 DAYS. Refused By: JIA GONZALEZ Reason for Refusal: Request already responded to by other means (e.g. phone or fax) Count includes the [facility]
--- NOTE | 2024-07-10 12:56 | RAD REPORT ---
EXAMINATION: CT HEAD WITHOUT CONTRAST CT CERVICAL SPINE WITHOUT CONTRAST CLINICAL INDICATION: Female, 33 years old. fall off couch, back and pelvic pain TECHNIQUE: Axial CT images from the skull base to the vertex without intravenous contrast. Axial CT i mages through the cervical spine were obtained without intravenous contrast. Sagittal and coronal reformatted images were created from the data set. Coronal and sagittal reformatted images were creat ed from the data set. One or more of the following dose reduction techniques were used: Automated exposure control, adjustment of the mA and/or kV according to patient size, and/or iterative reconstr uction. Unless otherwise specified, incidental findings do not require dedicated imaging follow-up. [id number]. COMPARISON: No prior exam. FINDINGS: Head: INTRACRANIAL: No acute intracranial hemorrhage. No hydrocephalus. No mass effect or midline shift. No significant white matter disease. VASCULATURE: No visualized abnormalities in the arteries or dural venous sinuses. SCALP/SKULL: No significant soft tissue or osseous abnormalities. SINUSES: The visualized paranasal sinuses and mastoid air cells are predominantly clear. Cervical spine: ALIGNMENT: The cervical spine has normal alignment without scoliosis or spondylolisthesis. BONE: Vertebral body heights are maintained. No aggressive osseous lesions. DEGENERATIVE CHANGES: None significant. SOFT TISSUE: No significant abnormalities in the soft tissue of the neck. The visualized lung apices are clear. IMPRESSION: No acute intracranial abnormality. No acute fracture or traumatic malalignment of the cervical spine.
--- NOTE | 2024-07-10 13:03 | RAD REPORT ---
EXAM: CT CHEST, ABDOMEN AND PELVIS WITHOUT CONTRAST CLINICAL INDICATION: Female, 33 years old fall off couch, back and pelvic pain TECHNIQUE: CT chest, abdomen and pelvis was performed, without IV contrast, as per department protoco l. Axial, sagittal and coronal reconstructions were obtained. One or more of the following dose reduction techniques were used: Automated exposure control, adjustment of the mA and/or kV according to the patient size, and/or iterative reconstruction. Unless otherwise specified, incidental findings do not require dedicated imaging follow-up. [id number]. COMPARISON: No prior exam. FINDINGS: The lack of intravenous contrast limits the sensitivity of this exam for evaluation of solid visceral organs, vascular structures, and retroperitoneum. Chest: LOWER NECK/CHEST WALL: Visualized thyroid gland and soft tissues are normal. LUNGS AND AIRWAYS: Airways are clear. No evidence of airspace or interstitial process. No nodules. PLEURA: No pleural effusion. No pneumothorax. Hemidiaphragms are normally positioned. MEDIASTINUM AND LYMPH NODES: No mediastinal mass or fluid collection. Normal size mediastinal, hilar, and axillary lymph nodes. THORACIC AORTA: Normal caliber and configuration. PULMONARY ARTERIES: Normal caliber. HEART: Unremarkable. Abdomen/Pelvis LIVER: Normal in size and contour. No focal lesion. GALLBLADDER/BILE DUCTS: No biliary ductal dilatation. PANCREAS: No mass, ductal dilation, or king-pancreatic fluid. SPLEEN: Normal size. No focal lesion. ADRENALS: Normal; no mass. KIDNEYS AND URETERS: Normal size and contour. No hydronephrosis. GASTROINTESTINAL TRACT: Stomach is non-dilated. Small bowel has normal course and caliber. No colonic wall thickening or pericolonic inflammatory changes. Normal appendix. PERITONEUM: No free fluid. LYMPH NODES: No lymphadenopathy. ABDOMINAL AORTA AND OTHER VESSELS: Normal caliber aorta and IVC. URINARY BLADDER: Normal contour. REPRODUCTIVE ORGANS: No pathologic process. MUSCULOSKELETAL: No acute or suspicious osseous abnormality. ADDITIONAL FINDINGS: None IMPRESSION: No acute or significant abnormalities in the chest, abdomen, or pelvis.
--- NOTE | 2024-07-10 13:06 | EDPHYS ---
Physician Documentation [facility] Name: Claudine Morales Age: 33 yrs Sex: Female : 1990 Arrival Date: 07/10/2024 Time: :29 Bed 7 Private MD: ED Physician Matthias Sanchez HPI: 07/10 12:00 This 33 yrs old Female presents to ER via EMS with complaints of Back Pain. rn 12:00 The patient presents with pain that is acute, that is chronic. The symptoms are located rn in the low back. Onset: The symptoms/episode began/occurred just prior to arrival. The pain radiates to the pelvis. The problem was sustained during a fall. Modifying factors: The patient symptoms are alleviated by remaining still, the patient symptoms are aggravated by any movement. Severity of symptoms: At their worst the symptoms were moderate, in the emergency department the symptoms are unchanged. The patient has not experienced similar symptoms in the past. Patient reports was standing on couch dusting, fell and landed on back/left side. Reports pain to lower back that radiates to bilateral hips. Does have chronic back pain and is normally 6 out of 10 pain to the back. Given 100 mcg of fentanyl prior to arrival by EMS. Reports hit head and has mild head and neck pain. No extremity injury.. 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 - Infectious Disease History:: Denies. - Social history:: Smoking status: unknown. - Family history:: not pertinent. - Hospitalizations: : No recent hospitalization is reported. ROS: 12:00 Constitutional: Negative for fever, chills, and weight loss, Neck: Negative for rn swelling Cardiovascular: Negative for chest pain, palpitations, and edema, Respiratory: Negative for shortness of breath, cough, wheezing, and pleuritic chest pain, Abdomen/GI: Negative for abdominal pain, nausea, vomiting, diarrhea, and constipation, Back: Positive for back injury and pain MS/Extremity: Negative for injury and deformity, Neuro: Positive for mild headache Exam: 12:00 Constitutional: This is a well developed, well nourished patient who is awake, alert, rn appears uncomfortable when being moved from stretcher to bed Head/Face: Normocephalic, atraumatic. Neck: No midline cervical tenderness Chest/axilla: No rib tenderness or crepitus Cardiovascular: Regular rate and rhythm. No pulse deficits. Respiratory: No increased work of breathing, no retractions or nasal flaring. Abdomen/GI: Soft, non-tender Back: No spinal tenderness. MS/ Extremity: Pulses equal, no cyanosis. Neurovascular intact. Full, normal range of motion. Equal circumference. Neuro: Awake and alert, GCS 15 Vital Signs: 11:35 BP 138 / 89; Pulse 85; Resp 16; Temp 98; Pulse Ox 100% ; bp 13:33 BP 153 / 61; Pulse 68; Resp 16; Pulse Ox 97% ; bp MDM: 11:35 Medical Screening Exam initiated rn 13:05 Differential diagnosis: chronic back pain, Fracture Osteoarthritis sprain, vertebral rn fracture. Data reviewed: vital signs, nurses notes, radiologic studies, CT scan, and as a result, I will discharge patient. Counseling: I had a detailed discussion with the patient and/or guardian regarding the historical points, exam findings, and any diagnostic results supporting the discharge/admit diagnosis, radiology results, the need for outpatient follow up, to return to the emergency department if symptoms worsen or persist or if there are any questions or concerns that arise at home. Special discussion: I discussed with the patient/guardian in detail that at this point there is no indication for admission to the hospital. It is understood, however, that if the symptoms persist or worsen the patient needs to return immediately for re-evaluation. ED course: No acute traumatic findings on imaging. Will discharge home as contusion and aggravation of chronic back pain.. 13:10 ED course: Patient already on gabapentin for chronic back pain at home. Recommend rn Tylenol and Motrin as well as ice. 07/10 11:43 Order name: Test, Serum; Complete Time: 12:32 rn 07/10 12:16 Order name: Head C Spine Mpr Wo Con; Complete Time: 13:04 EDMS 07/10 12:17 Order name: Chest Abd Pelvis Wo Con; Complete Time: 13:04 EDMS 07/10 11:43 Order name: IV Start; Complete Time: 11:45 rn Administered Medications: 14:01 Drug: Ketorolac IM 30 mg IM once Route: IM; Site: left gluteus; me1 Disposition Summary: 07/10/24 13:06 Discharge Ordered Notes: Location: Home rn Problem: new rn Symptoms: have improved rn Condition: Stable rn Diagnosis - Contusion of lower back and pelvis rn Followup: rn - With: Private Physician - When: As needed - Reason: Recheck today's complaints, Re-evaluation by your physician Discharge Instructions: - Discharge Summary Sheet rn - Chronic Back Pain rn - Contusion rn Forms: - Medication Reconciliation Form rn - Antibiotic oxyacetylene burner - Prescription Opioid Use rn - Patient Portal Instructions rn - Leadership Thank You Letter rn Prescriptions: - Diclofenac Sodium 75 mg Oral tablet, delayed release (enteric coated) - take 1 tablet ORAL route 2 times per day; 14 tablet; Refills: 0, Product rn Selection Permitted Signatures: Dispatcher [employer] Matthias Garcia MD MD rn Peltier, Brian RN RN Claudine Vee RN RN me1 Corrections: (The following items were deleted from the chart) 12:16 11:35 Head C Spine Cap Wo Con+[id number] ordered. EDMS EDMS
--- NOTE | 2024-07-10 13:06 | ER ---
Nurse's Notes [facility] Name: Claudine Morales Age: 33 yrs Sex: Female : 1990 Arrival Date: 07/10/2024 Time: 11:29 Bed 7 Private MD: Diagnosis: Contusion of lower back and pelvis Presentation: 07/10 11:35 Chief complaint: EMS states: BACK PAIN AFTER FALL FROM STANDING. Coronavirus screen: At bp this time, the client does not indicate any symptoms associated with coronavirus-19. Ebola Screen: No symptoms or risks identified at this time. Initial Sepsis Screen: Does the patient meet any 2 criteria? No. Patient's initial sepsis screen is negative. Does the patient have a suspected source of infection? No. Patient's initial sepsis screen is negative. Risk Assessment: Do you want to hurt yourself or someone else? Patient reports no desire to harm self or others. Onset of symptoms was July 10, 2024 at 11:00. Care prior to arrival: Medication(s) given: FENTANYL 50MCG IVP IV initiated. 22 GA, in the right forearm. 11:35 Method Of Arrival: EMS: [facility] bp 11:35 Acuity: VANDANA 4 bp Triage Assessment: 11:36 General: Appears distressed, uncomfortable, obese, unkempt, Behavior is cooperative, bp appropriate for age, anxious. Pain: Complains of pain in back. EENT: No deficits noted. Neuro: No deficits noted. Cardiovascular: No deficits noted. Respiratory: No deficits noted. GI: No signs and/or symptoms were reported involving the gastrointestinal system. : No signs and/or symptoms were reported regarding the genitourinary system. Derm: No deficits noted. Musculoskeletal: Circulation, motion, and sensation intact. Range of motion: intact in all extremities. 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 - Infectious Disease History:: Denies. - Social history:: Smoking status: unknown. - Family history:: not pertinent. - Hospitalizations: : No recent hospitalization is reported. Screenin:39 [facility] ED Fall Risk Assessment (Adult) History of falling in the last 3 months, bp including since admission No falls in past 3 months (0 pts) Confusion or Disorientation No (0 pts) Intoxicated or Sedated No (0 pts) Impaired Gait No (0 pts) Mobility Assist Device Used No (0 pt) Altered Elimination No (0 pt) Score/Fall Risk Level 0 - 2 = Low Risk Oriented to surroundings. Abuse screen: Denies threats or abuse. Denies injuries from another. Nutritional screening: No deficits noted. Tuberculosis screening: No symptoms or risk factors identified. Assessment: 11:35 General: Appears uncomfortable, obese, Behavior is cooperative, appropriate for age, bp anxious. Pain: Complains of pain in back. Neuro: Level of Consciousness is awake, alert, obeys commands, Oriented to Appropriate for age. 13:34 Reassessment: No changes from previously documented assessment. Patient is alert, bp oriented x 3, equal unlabored respirations, skin warm/dry/pink. Vital Signs: 11:35 BP 138 / 89; Pulse 85; Resp 16; Temp 98; Pulse Ox 100% ; bp 13:33 BP 153 / 61; Pulse 68; Resp 16; Pulse Ox 97% ; bp ED Course: 11:34 Patient arrived in ED. bp 11:35 Matthias Sanchez MD is Attending Physician. rn 11:36 Triage completed. bp 11:36 Arm band placed on. bp 11:38 Maintain EMS IV. Dressing intact. Good blood return noted. Site clean \T\ dry. Gauge \T\ bp site: 22 GA RFA. 11:39 Patient has correct armband on for positive identification. bp 11:45 Nik Wadsworth, RN is Primary Nurse. bp 12:54 Head C Spine Mpr Wo Con In Process Unspecified. EDMS 12:57 Chest Abd Pelvis Wo Con In Process Unspecified. EDMS 13:34 Provided Education on: N/A. bp 13:34 No provider procedures requiring assistance completed. IV discontinued, intact, bp bleeding controlled, No redness/swelling at site. Pressure dressing applied. Administered Medications: 14:01 Drug: Ketorolac IM 30 mg IM once Route: IM; Site: left gluteus; me1 Medication: 13:34 VIS not applicable for this client. bp Outcome: 13:06 Discharge ordered by . rn 13:34 Discharged to home via wheelchair, with family, bp 13:34 Condition: stable 13:34 Discharge instructions given to patient, Instructed on discharge instructions, follow up and referral plans. Demonstrated understanding of instructions, follow-up care, 14:08 Patient left the ED. me1 Signatures: Dispatcher [employer] Matthias Garcia MD MD rn Peltier, Brian, RN RN bp Eddleman, Michelle, RN RN me1
[2024-07-10] MEDS ORDERED: KETOROLAC 30 MG/ML INJ ONE (13:57)
[2024-07-10 14:25] VITALS: TEMP 98
[2024-07-10 14:29] VITALS: BP 153/61; O2SAT 97
== END 2024-07-10 14:08 | disposition home or self-care (01) ==
LOC: ER 11:29
DX: S30.0XXA Contusion of lower back and pelvis, initial encounter (principal); W08.XXXA Fall from other furniture, initial encounter
CPT/HCPCS: 36415; 70450; 71250; 72125; 74176; 84703; 96372; 99284

== ENCOUNTER 2024-08-18 04:41 | Emergency (ER) | payer OTHER ==
--- OUTSIDE RECORDS SUMMARY | 2024-08-18 04:53 | XMS REPORT | Continuity of Care Document ---
Author Name Unknown Address [address] [place] [address] [facility] thconnect Address 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 Role Phone Ludivina ESCOBAR, [facility] Primary Care Physician [phone] FAUSTINO CORTEZ Attending Clinician Unavailable SABRINA WINTER Attending Clinician Unavailable JUAN GARCIA Attending Clinician Unavail able JUAN GARCIA Attending Clinician Unavail able AFIA BEAULIEU Attending Clinician Unavailable JUAN CASTELLANOS Attending Clinician Unavailable NABEEL MEDINA Attending Clinician Unavailab shahla LIPSCOMB MD Attending Clinician Unavailab ENDER Borrero Attending Clinician Unavailab Cesar White Attending Clinician Unavailcarmelo isidro VENTURA, RACIEL-SON Attending Clinician Unavailable KAMILAH GARCIA Attending Clinician Unavail able YISEL ASTORGA Attending Clinician Unavailable ZIYAD HOYOS Attending Clinician Arabella pino LAB90 Attending Clinician Unavailable GARCIA, CESAR CATRACHITA Attending Clinician Unav ailable MILLILIBERTAD CORTEZ Attending Clinician Unavailable GEORGI WILBURN Attending Clinician Unavailable Doctor Unassigned, [place] Attending Clinician U navailable TAMMY MCDOWELL Attending Clinician Unavaila RIGO Martin Attending Clinician UnavailHerminio CONNER, Afia Attending Clinician [phone] [facility], [facility] Attending Clinician + [facility] Attending Clinician Jeanine vailable Elly Blackburn MD Attending Clinician [phone] SHARRI OLSON Attending Clinician UnavailSHARRI Chan Attending Clinician Unavailcarmelo Dang [facility], Navneet Peoples Attending Clinician Unava ilable [facility], [facility] Attending Clinician Doctor Unassigned, [place] Attending Clinician U navailable ELLY BLACKBURN Attending Clinician Unavailable EMILY SINGH Attending Clinician Unavailable Emily Singh MD Attending Clinician [phone] ATILIO ANDREWS Attending Clinician Unavailable OBI SHARIF Attending Clinician Unavailable RADIOLOGY Attending Clinician Unavailable Radiology Attending Clinician Unavailable Elly Blackburn MD Attending Clinician [phone] BONNIE ROCHA Attending Clinician Unavailab Bonnie uV Attending Clinician [phone] Debbie Velasco RN Attending Clinician Unavaila jose Dang [facility]ending [facility] Unava ilable Ion Rahman MD Attending Clinician + [phone] ION RAHMAN Attending Clinician Unavaila ION Chua Attending Clinician Unavaila ISELA Vieira Attending Clinician Unavailable CHANEL JACOME Attending Clinician Unavailable Jens Carranza RN, Sharri Canseco Attending Clinician Unava ilable GEORGETTE JEFFREY Attending Clinician Unavailable Georgette Nieto Attending Clinician [phone] Mildred Anders RN Attending Clinician Jeanine vailable Zhanna Kramer LVN Attending Clinician UnavailRobina CONNER, Preethi Attending Clinician [phone] Yamil MESSINA Attending Clinician Unavailable Yamil Monroy Attending Clinician [phone] YOON PAGE Attending Clinician Unavailable Yoon Page MD Attending Clinician [phone] Pgy2 Attending Clinician Unavailable Marques Mansfield MD Attending Clinician [phone] Santos [facility] Resident Attending Clinician Unavailab Aracely Del Rio MD Attending Clinician [phone] Danielle ESCOBAR, Dena Attending Clinician + Jeanette Campos MD Attending Clinician [phone] JEANETTE CAMPOS Attending Clinician Unavailable BEBE GABRIEL Attending Clinician Unavailable Juan Castellanos Admitting Clinician Unavailab AFIA Garcia Admitting Clinician Unavailable Yamil MESSINA Admitting Clinician Unavailable YOON PAGE Admitting Clinician Unavailable Payers Payer Name Policy Type Policy Number Effective Date Expirati on Date Source [facility] ROLANDA-SEYBOLD [employer] 9 [id number] 2024 00:00:00 [facility] [place] [id number] 2022 00:00:00 Problems Condition Name Condition Details Condition Category Status Onset Date Resolution Date Last Treatment Date Treating Clinician Comments Source No known active problems No known active problems Disease [facility] PCOS (polycysti c ovarian syndrome) PCOS (polycysti c ovarian syndrome) Disease Active Rolanda Seybold - Externa l Prediabete s Prediabete s Disease Active Rolanad Seybold - Externa l Thyroid disease Thyroid [...] l Arthritis Arthritis Disease Active Ove rview: Adelaide g of this note might be different from the original. in spine Rolanda Seybold - Externa l Insomnia Insomnia Disease Active Kelse y Seybold - Externa l Allergies, Adverse Reactions, Alerts Allergy Name Allergy Type Status Severity Reaction(s) Onset Date Inactive Date Treating Clinician Comments Source lurasido ne DA Active [place] ANXIETY 2023-08 00:00: 00 [facility] lamotrig ine DA Active [place] RASH 2023-08 00:00: 00 [facility] doxepin DA Active [place] ANXIETY 2023-08 00:00: 00 [facility] quetiapi ne DA Active [place] WEIGHT GAIN 2023-08 00:00: 00 [facility] aripipra zole DA Active [place] ANXIETY 2023-08 00:00: 00 [facility] QUETIAPI NE DRUG INGREDI Active Other-Cmnt 17 00:00: 00 [facility] ZIPRASID ONE DRUG INGREDI Active Other-Cmnt 17 00:00: 00 [facility] Ziprasid one Propensi ty to adverse reaction s Active Other - See comments 11-27 00:00: 00 Causes a reaction with metformin & Topamax [facility] Quetiapi ne Propensi ty to adverse reaction s Active Other 17 00:00: 00 Does not help and causes weight gain Rolanda Seybold - Externa l Ziprasid one Propensi ty to adverse reaction s Active Other 0 4-17 00:00: 00 Causes a reaction with metformin & Topamax Rolanda Seybold - Externa l Lamictal Propensi ty to adverse reaction to drug Active 3-11 00:00: 00 Georgi CARPIOIDO NE DRUG INGREDI Active Other-Cmnt 0 8-07 00:00: 00 [facility] DOXEPIN DRUG INGREDI Active Anxiety 8 00:00: 00 [facility] Doxepin Propensi ty to adverse reaction s Active Anxiety 8 00:00: 00 Anger, agression [facility] Lurasido ne Propensi ty to adverse reaction s Active Other - See comments 8 00:00: 00 Manic episode/a gression [facility] Prop[facility] to adverse reaction s Active Other 8 00:00: 00 Manic episode/a gression Rolanda Seybold - Externa l Doxepin Propensi ty to adverse reaction s Active Other 2021-08 2 00:00: 00 Anger, agression Rolanda Seybold - Externa l Abilify - Oral Propensi ty to adverse reaction to drug Active 04-06 00:00: 00 Georgi Delaney Codeine Propensi ty to adverse reaction s Active 04-06 00:00: 00 Rolanda Seybold - Externa l ARIPIPRA ZOLE DRUG INGREDI Active Other-Cmnt 03-11 00:00: 00 [facility] LAMOTRIG INE DRUG INGREDI Active Other-Cmnt 03-11 00:00: 00 [facility] Aripipra zole Propensi ty to adverse reaction s Active Other - See comments 03-11 00:00: 00 Suicidal ideation and AMS [facility] Lamotrig ine Propensi ty to adverse reaction s Active Other - See comments 03-11 00:00: 00 Possible reaction att. [facility] Lamotrig ine Propensi ty to adverse reaction s Active Other 01-30 00:00: 00 Possible reaction att. Rolanda Seybold - Externa l Aripipra zole Monohydr ate Propensi ty to adverse reaction s Active Other 620 00:00: 00 Suicidal ideation and AMS Rolanda Howellybold - Externa l NO KNOWN ALLERGIE S Drug Class Active [facility] Family History Family Member Diagnosis Comments Start Date Stop Date Sourc e Paternal [facility] Social History Social Habit Start Date Stop Date Quantity Comments Source Gender identity [facility] Exposure to SARS-CoV-2 (event) Not sure [facility] ASSERTION Not Rolanda Vogel - External [...] 2023-11-01 00:00:00 Current drinker of alcohol (finding) [facility] History of tobacco use 2004-02-04 00:00:00 2010-02-03 00:00:00 Cigarette Smoker Rolanda Vogel - External Sex assigned at 1990 00:00:00 1990 00:00:00 Rolanda Cheung External Smoking Status Start Date Stop Date Source Ex-smoker 2024-02-05 00:00:00 2024-02-05 00:00:00 Rolanda Cheung External Never smoked tobacco [facility] Tobacco smoking consumption unknown [facility] Medications Ordered Medication Name Filled Medication Name Start Date Stop Date Current Medication? Ordering Clinician Indication Dosage Frequency Signature (SIG) Comments Components Source Etonogestre l (NEXPLANON SC) 2023-08 14:52: 42 Yes [id number] Inject into the skin. Rolanda peoples Gabapentin 100 MG oral Capsule 2023-08 00:00: 00 Yes [id number] 100mg Q.[id number] 3D Take 1 capsule (100 mg total) by mouth 3 times daily. Rolanda peoples methylPREDN ISolone 4 MG oral Tablet Therapy Pack 2023-08 00:00: 00 Yes [id number] 1{michi} Take 1 michi by mouth See Admin Instructio ns Use as directed. Rolanda peoples Gabapentin 300 MG oral Capsule 2023-08 00:00: 00 06-26 00:00 :00 No [id number] 300mg Q.[id number] 3D Take 1 capsule (300 mg total) [...] l (NEXPLANON SC) 2023-08 14:02: 45 Yes [id number] Inject into the skin. Rolanda peoples Etonogestre l (NEXPLANON SC) 2023-08 15:01: 47 Yes [id number] Inject into the skin. Rolanda peoples linaCLOtide (Linzess) 145 MCG oral Capsule 2023-08 00:00: 00 Yes [id number] 145ug QD Take 1 capsule (145 mcg total) by mouth daily. Rolanda peoples Phentermine HCl 37.5 MG oral Tablet 2023-08 00:00: 00 06-10 00:00 :00 No [id number] 37.5mg Take 1 tablet (37.5 mg total) by mouth every morning (before breakfast) . Rolanda peoples linaCLOtide (Linzess) 145 MCG oral Capsule 2023-08 0 00:00: 00 05-27 00:00 :00 No [id number] 145ug QD Take 1 capsule (145 mcg total) by mouth daily. Rolanda peoples Etonogestre l (NEXPLANON SC) 9 13:48: 24 Yes [id number] Inject into the skin. Rolanda peoples Mounjaro 2.5 MG/0.5ML subcutaneou s Solution Pen-injecto r 04-04 00:00: 00 05-27 00:00 :00 No Rolanda peoples Etonogestre l (NEXPLANON SC) 04-03 15:13: 14 Yes [id number] Inject into the skin. Rolanda peoples Levothyroxi ne Sodium (Unithroid) 50 MCG oral Tablet 04-03 00:00: 00 Yes [id number] 50ug QD Take 1 tablet (50 mcg total) by mouth daily. Rolanda peoples Semaglutide -Weight Management (Wegovy) 0.25 MG/0.5ML subcutaneou s Solution Auto-inject or 04-03 00:00: 00 05-27 00:00 :00 No [id number] .25mg Q1W Inject 0.25 mg into the skin once a week. Rolanda peoples Phentermine HCl 37.5 MG oral Tablet 04-03 00:00: 00 05-27 00:00 :00 No [id number] 37.5mg Take 1 tablet (37.5 mg total) by mouth every morning (before breakfast) . Rolanda peoples Etonogestre l (NEXPLANON SC) 03-04 14:26: 28 Yes [id number] Inject into the skin. Rolanda peoples Semaglutide -Weight Management (Wegovy) 0.25 MG/0.5ML subcutaneou s Solution Auto-inject or 03-04 00:00: 00 04-03 00:00 :00 No [id number] .25mg Q1W Inject 0.25 mg into the skin once a week. Rolanda peoples Diethylprop ion HCl CR 75 MG oral TABLET SR 24 HR 03-04 00:00: 00 04-03 00:00 :00 No [id number] 1{tbl} QD Take 1 tablet by mouth daily. Rolanda peoples Cholecalcif luann (Vitamin D) 50 MCG (2000 UT) oral Capsule 02-20 00:00: 00 04-03 00:00 :00 No [id number] 2000U QD Take 1 capsule (2,000 units total) by mouth daily. Rolanda peoples Ibuprofen (MOTRIN) 600 MG oral Tablet 02-12 00:00: 00 Yes Rolanda peoples Chlorhexidi ne Gluconate 0.12 % mouth/throa t Solution 02-12 00:00: 00 05-27 00:00 :00 No Rolanda peoples Acetaminoph en-Codeine 300-30 MG oral Tablet 02-12 00:00: 00 04-03 00:00 :00 No Rolanda peoples Vitamin D, Ergocalcife rol, 1.25 MG (13979 UT) oral Capsule 02-10 00:00: 00 05-27 00:00 :00 No [id number] 01777Z Q1W Take 1 capsule (50,000 units total) [...] l (NEXPLANON SC) 02-04 15:21: 33 Yes [id number] Inject into the skin. Rolanda peoples Levothyroxi ne Sodium (Unithroid) 50 MCG oral Tablet 02-04 00:00: 00 04-03 00:00 :00 No [id number] 50ug QD Take 1 tablet (50 mcg total) by mouth daily. Rolanda peoples Phentermine HCl 37.5 MG oral Tablet 02-04 00:00: 00 03-04 00:00 :00 No [id number] 37.5mg QD Take 1 tablet (37.5 mg [...] tablet in the evening. Take with meals. [facility] Ketorolac Tromethamin e (TORADOL) injection syringe 60 mg 12-25 14:30: 00 12-25 14:30 :00 No [id number] 60mg 60 mg, Intramuscu lar, ONCE, 1 dose, On Sun12/26/23 at 0930, Routine [facility] Ondansetron HCl 4 MG oral Tablet 12-24 00:00: 00 Yes [id number] 4mg Q.[id number] 3D Take 1 tablet (4 mg total) by mouth every 8 hours as needed. Rolanda peoples Propranolol HCl 40 MG oral Tablet 12-24 00:00: 00 Yes [id number] 40mg QD Take 1 tablet (40 mg total) by mouth daily. Rolanda peoples Rimegepant Sulfate (Nurtec) 75 MG oral TABLET DISPERSIBLE 12-24 00:00: 00 Yes [id number] 75mg QD Take 1 tablet (75 mg total) by mouth daily as needed. Rolanda peoples Topiramate 100 MG oral Tablet 12-24 00:00: 00 Yes [id number] 100mg Q.5D Take 1 tablet (100 mg total) by mouth 2 times daily. Rolanda peoples Ubrogepant 100 MG oral Tablet 12-24 00:00: 00 Yes [id number] 100mg Take 1 tablet (100 mg total) by mouth as needed. Rolanda peoples levothyroxi ne 50 mcg tablet 12-20 00:00: 00 Yes 1mcg Georgi Delaney phentermine 37.5 mg tablet 12-20 00:00: 00 Yes mg Georgimariama Delaney hydrOXYzine HCl 50 MG oral Tablet 12-18 00:00: 00 Yes [id number] Take 2 tablets at night as needed for insomnia. If unable to sleep after 1 hour take 1 tablet by mouth at night. Can take an additional 2 tablets during the day as needed for anxiety. Rolanda peoples Venlafaxine HCl 75 MG oral Capsule 24 Hour Sustained Release 12-18 00:00: 00 Yes [id number] 75mg QD Take 1 capsule (75 mg total) by mouth daily (with breakfast) . Rolanda peoples Metformin HCl ER 500 MG oral TABLET SR 24 HR 4-19 00:00: 00 03-04 00:00 :00 No [id number] 500mg Take 1 tablet (500 mg total) by mouth in the morning and 1 tablet (500 mg total) in the evening. Take with meals. Rolanda Feldera l HYDROXYZINE HCL 50 MG TABS 11-13 00:00: 00 Yes Georgi Delaney levothyroxi ne 112 mcg tablet 11-11 00:00: 00 Yes mcg Georgi Delaney UNITHROID 112 MCG TABS 11-11 00:00: 00 Yes Georgi Delaney butalbital- acetaminoph en-caff 50-325-40 mg tablet 10-31 08:54: 39 10-31 00:00 :00 No 1{tbl} Take 1 tablet by mouth every 4 (four) hours as needed for Headache. [facility] TOPIRAMATE 100 MG TABS 10-31 00:00: 00 Yes Georgi Delaney topiramate 100 mg tablet 10-31 00:00: 00 12-24 00:00 :00 No [id number] 100mg Take 1 tablet by mouth in the morning and 1 tablet in the evening. [facility] butalbital- acetaminoph en-caff 50-325-40 mg tablet 10-30 08:17: 56 Yes 1{tbl} Take 1 tablet by mouth every 4 (four) hours as needed for Headache. [facility] Victoza 2-Michi 0.6 mg/0.1 mL (18 mg/3 mL) subcutaneou s pen injector 10-24 00:00: 00 Yes (18 mg/3 mL) Georgi Delaney phentermine 37.5 mg tablet 10-24 00:00: 00 Yes mg Georgi Delaney gabapentin 100 mg capsule 10-22 00:00: 00 Yes 1mg Georgi Delaney Methocarbam ol 750 MG oral Tablet 10-22 00:00: 00 Yes [id number] TAKE 1 TABLET BY MOUTH THREE TIMES A DAY NEEDED FOR MUSCLE SPASM Rolanda Cheung Externa l Gabapentin 100 MG oral Capsule 10-22 00:00: 00 06-22 00:00 :00 No [id number] 100mg Q.[id number] 3D Take 1 capsule (100 mg total) by mouth 3 times daily. Rolanda peoples Diclofenac Sodium 75 MG oral Tablet Delayed Response 10-22 00:00: 00 04-03 00:00 :00 No [id number] 1mg 1 mg. Rolanda peoples ketorolac (TORADOL) injection 30 mg 10-16 06:30: 00 10-16 06:17 :00 No 30mg 30 mg, Slow IV Push, ONCE, 1 dose, On Sun10/17/23 at 0030, Routine [facility] NaCl 0.9% (NS) bolus infusion 1,000 mL 10-16 06:15: 00 10-16 07:36 :00 No 1000mL at 999 mL/hr, 1,000 mL, IV Infusion, ONCE, 1 dose, On Sun10/17/23 at 0015, STAT [facility] metoclopram krystian HCl (REGLAN) injection 10 mg 10-16 06:15: 00 10-16 06:17 :00 No 10mg 10 mg, Slow IV Push, ONCE, 1 dose, On Sun10/17/23 at 0015, PAWEL [facility] diphenhydrA MINE (BENADRYL) injection 25 mg 10-16 06:15: 00 10-16 06:17 :00 No 25mg 25 mg, Slow IV Push, ONCE, 1 dose, On Sun10/17/23 at 0015, STAT [facility] hydroxyzine HCl 50 mg tablet 10-16 00:00: 00 Yes mg Georgi Delaney ACETAMINOPH EN-CAFF-BUT ALBITAL 50-325-40 MG oral Tablet 10-16 00:00: 00 06-26 00:00 :00 No [id number] Rolanda peoples venlafaxine ER 75 mg capsule,ext ended release 24 hr - 00:00: 00 Yes mg Georgi Delaney metFORMIN 500 mg tablet - 10:52: 09 Yes 500mg Take 1 tablet by mouth in the morning and 1 tablet in the evening. Take with meals. [facility] Rimegepant Sulfate (Nurtec) 75 MG oral TABLET DISPERSIBLE 10-03 00:00: 00 02-04 00:00 :00 No Rolanda peoples phentermine 37.5 mg tablet 10-02 00:00: 00 Yes mg Georgi Delaney NURTEC 75 MG TBDP - 00:00: 00 Yes Georgi Delaney TOPIRAMATE 50 MG TABS 09-18 00:00: 00 Yes Georgi Delaney rimegepant (NURTEC ODT) 75 mg TbDL 09-18 00:00: 00 12-24 00:00 :00 No [id number] 75mg Take 1 tablet by mouth once daily as needed (Headache) . [facility] propranoloL 40 mg tablet 09-18 00:00: 00 12-24 00:00 :00 No [id number] 40mg Take 1 tablet by mouth in the morning. [facility] topiramate 50 mg tablet 09-18 00:00: 00 10-31 00:00 :00 No [id number] 50mg Take 1 tablet by mouth in the morning and 1 tablet in the evening. [facility] HYDROXYZINE HCL 50 MG TABS 09-17 00:00: 00 Yes Georgi Delaney VENLAFAXINE HYDROCHLORI DE ER 75 MG CP24 - 00:00: 00 Yes Georgi Delaney venlafaxine XR (EFFEXOR XR) 75 mg 24 hr capsule - 00:00: 00 12-18 00:00 :00 No [id number] 75mg Take 1 capsule by mouth daily with breakfast. [facility] propranolol 40 mg tablet - 00:00: 00 Yes mg Georgi Delaney metformin ER 500 mg tablet,exte nded release 24 hr - 00:00: 00 Yes mg Georgi Delaney TAKE 1 TABLET DAILY 09-03 00:00: 00 Yes Georgi Delaney VENLAFAXINE HYDROCHLORI DE ER 75 MG CP24 09-03 00:00: 00 Yes Georgi Delaney venlafaxine XR (EFFEXOR XR) 75 mg 24 hr capsule 09-03 00:00: 00 09-17 00:00 :00 No [id number] 75mg Take 1 capsule by mouth daily with breakfast. [facility] levothyroxi ne 112 mcg tablet 08-19 00:00: [...] MCG TABS 2022-08 00:00: 00 Yes Georgi Alex Rhett 0.6 MG ONCE DAILY FOR 1 WEEK, THEN INCREASE TO 1.2 MG ONCE DAILY 2022-08 00:00: 00 12-25 00:00 :00 No 183 Georgi Alex Delaney Zolpidem Tartrate 5 MG oral Tablet 2022-08 00:00: 00 02-04 00:00 :00 No Rolanda peoples ramelteon 8 mg tablet 2022-08 00:00: 00 07-23 00:00 :00 No [id number] 8mg Take 1 tablet by mouth at bedtime as needed for Insomnia. [facility] TAKE 1 TABLET BY MOUTH TWICE A [...] 2022-08 00:00: 00 12-24 00:00 :00 No [id number] 100mg Take 1 tablet by mouth as needed for Other (Headache) for up to 64 doses. If symptoms persist or return, may repeat dose after 2 hours. Maximum: 200 mg per 24 hours [facility] VENLAFAXINE HYDROCHLORI DE ER 37.5 MG CP24 2022-08 0- 00:00: 00 Yes Georgi Delaney HYDROXYZINE HCL 50 MG TABS 2022-08 0- 00:00: 00 Yes Georgi Delaney VENLAFAXINE HYDROCHLORI DE ER 75 MG CP24 2022-08 0-25 00:00: 00 Yes Georgi Delaney venlafaxine XR (EFFEXOR XR) 75 mg 24 hr capsule 2022-08 0-25 00:00: 00 09-03 00:00 :00 No [id number] 75mg Take 1 capsule by mouth daily with breakfast. [facility] TAKE 1 TABLET TWICE A DAY WITH MEALS 2022-08 024 00:00: 00 12-25 00:00 :00 No 500 Georgi Delaney Omeprazole 40 MG oral Delayed Release Capsule 2022-08 0-18 00:00: 00 05-27 00:00 :00 No Rolanda peoples TOPIRAMATE 50 MG TABS 2022-08 00:00: 00 Yes Georgi Delaney TAKE 1 TABLET BY MOUTH EVERY DAY IN THE MORNING 2022-08 00:00: 00 Yes Georgi Delaney topiramate 50 mg tablet 2022-08 00:00: 00 09-18 00:00 :00 No [id number] 50mg Take 1 tablet by mouth in the morning and 1 tablet in the evening. [facility] propranoloL 40 mg tablet 2022-08 00:00: 00 09-18 00:00 :00 No [id number] 40mg Take 1 tablet by mouth in the morning. [facility] rimegepant (NURTEC ODT) 75 mg TbDL 2022-08 00:00: 00 09-18 00:00 :00 No [id number] 75mg Take 1 tablet by mouth as needed (Headache) . [facility] PLEASE SEE ATTACHED FOR DETAILED DIRECTIONS 2022-08 00:00: 00 Yes Georgi Delaney VENLAFAXINE HYDROCHLORI DE ER 75 MG CP24 05-09 00:00: 00 Yes Georgi Delaney hydrOXYzine 50 mg tablet 05-09 00:00: 00 06-06 00:00 :00 No [id number] Take 2 tablets at night as needed for insomnia. Can take an additional 2 tablets during the day as needed for anxiety. [facility] venlafaxine XR (EFFEXOR XR) 75 mg 24 hr capsule 05-09 00:00: 00 06-06 00:00 :00 No [id number] 75mg Take 1 capsule by mouth daily with breakfast. [facility] LEVOTHYROXI NE SODIUM 112 MCG TABS 05-04 [...] every 6 hours as needed for itching [facility] TAKE 1 CAPSULE BY MOUTH DAILY WITH BREAKFAST. 04-25 00:00: 00 Yes Georgi Delaney HYDROXYZINE HCL 50 MG TABS 04-25 00:00: 00 Yes Georgi Delaney venlafaxine XR (EFFEXOR XR) 75 mg 24 hr capsule 04-25 00:00: 00 05-09 00:00 :00 No [id number] 75mg Take 1 capsule by mouth daily with breakfast. [facility] TAKE 1 TO 2 TABLETS AT BEDTIME 04-22 00:00: 00 12-25 00:00 :00 No 25 Georgi Delaney NaCl 0.9% (NS) bolus infusion 1,000 mL 04-21 02:30: 00 04-21 04:53 :00 No 1000mL at 999 mL/hr, 1,000 mL, IV Infusion, ONCE, 1 dose, On Sun04/20/23 at 2130, STAT [facility] ketorolac (TORADOL) injection 30 mg 04-21 02:30: 00 04-21 02:47 :00 No 30mg 30 mg, Slow IV Push, ONCE, 1 dose, On Sun04/20/23 at 2130, PAWEL [facility] proCHLORper azine (COMPAZINE) 10 mg in NaCl 0.9% (NS) piggyback 04-21 02:15: 00 04-21 04:47 :00 No 10mg 10 mg, IV Piggyback, at 100 mL/hr Administer over 30 Minutes, ONCE, 1 dose, On Sun04/20/23 at 2115, Routine [facility] diphenhydrA MINE (BENADRYL) injection 25 mg 04-21 01:30: 00 04-21 02:46 :00 No 25mg 25 mg, Slow IV Push, ONCE, 1 dose, On Sun04/20/23 at 2030, STAT [facility] sulfamethox azole-trime thoprim 400-80 mg per tablet 04-20 20:09: 31 04-20 00:00 :00 No 1{tbl} Take 1 tablet by mouth in the morning and 1 tablet in the evening. [facility] TAKE 1 TABLET DAILY. 04-17 00:00: 00 12-25 00:00 :00 No 375 Georgi Delaney TAKE 1 TABLET TWICE A DAY WITH MEALS 04-17 00:00: 12-25 00:00 :00 No 500 Georgi Delaney VENLAFAXINE HYDROCHLORI DE ER 37.5 MG CP24 04-04 00:00: 00 Yes Georgi Delaney venlafaxine XR (EFFEXOR XR) 37.5 mg 24 hr capsule 04-04 00:00: 00 04-25 00:00 :00 No [id number] 37.5mg Take 1 capsule by mouth daily with breakfast. [facility] Ziprasidone HCl 20 MG oral Capsule 03-21 00:00: 00 02-04 00:00 :00 No Rolanda Vogel - Tawanna peoples metFORMIN 500 mg tablet 03-19 14:17: 04 Yes 500mg Take 1 tablet by mouth in the morning and 1 tablet in the evening. Take with meals. [facility] sulfamethox azole-trime thoprim 400-80 mg per tablet 03-19 14:17: 04 Yes 1{tbl} Take 1 tablet by mouth in the morning and 1 tablet in the evening. [facility] PROPRANOLOL HYDROCHLORI DE 40 MG TABS 03-19 00:00: 00 Yes Georgi Delaney TOPIRAMATE 50 MG TABS 03-19 00:00: 00 Yes Georgi Delaney propranoloL 40 mg tablet 03-19 00:00: 00 05-24 00:00 :00 No [id number] 40mg Take 1 tablet by mouth in the morning. [facility] topiramate 50 mg tablet 03-19 00:00: 00 05-24 00:00 :00 No [id number] 50mg Take 1 tablet by mouth in the morning and 1 tablet in the evening. [facility] Phentermine HCl 37.5 MG oral Tablet 03-13 00:00: 00 02-04 00:00 :00 No 37.5mg QD Take 1 tablet (37.5 mg total) by mouth daily. Rolanda Vogel - Bradforda l TAKE 1 TABLET DAILY. 03-13 00:00: 00 12-25 00:00 :00 No 375 Georgi Delaney TAKE 1 TABLET BY MOUTH TWICE A DAY 03-06 00:00: 00 Yes Georgi Delaney TAKE 1 TABLET TWICE DAILY. 03-06 00:00: 00 12-25 00:00 :00 No [id number] Georgi Delaney NURTEC 75 MG TBDP 02-27 00:00: 00 Yes Georgi Delaney rimegepant (NURTEC ODT) 75 mg TbDL 02-27 00:00: 00 05-24 00:00 :00 No [id number] 75mg Take 1 tablet by mouth daily as needed (Headache) . [facility] LATUDA 40 MG TABS 02-23 00:00: 00 Yes Georgi Delaney Naproxen 500 MG oral Tablet 02-23 00:00: 00 Yes [id number] TAKE 1 TABLET DAILY NEEDED FOR MIGRAINE. Rolanda peoples Lurasidone HCl (Latuda) 40 MG oral Tablet 02-23 00:00: 00 02-04 00:00 :00 No Rolanda Feldera richelle lurasidone (LATUDA) 20 mg tablet 02-23 00:00: 00 03-21 00:00 :00 No [id number] 20mg Take 1 tablet by mouth every evening. Start Latuda 20 mg with dinner (at least 500 kcal); after 1 week increase to 40 mg with dinner [facility] HYDROXYZINE HCL 50 MG TABS 02-22 00:00: 00 Yes Georgi Delaney Doxepin HCl 10 MG oral Capsule 02-22 00:00: 00 02-04 00:00 :00 No Rolanda Howellybold - Externa richelle hydrOXYzine 50 mg tablet 02-22 00:00: 00 03-21 00:00 :00 No [id number] 50mg Take 1 tablet by mouth every 6 (six) hours as needed for Itching. [facility] lurasidone (LATUDA) 20 mg tablet 02-22 00:00: 00 02-23 00:00 :00 No [id number] Take one tablet by mouth with dinner (at least 500 calories) for 1 week. After 1 week increase to two tablets by mouth with dinner. [facility] TAKE 1 TABLET DAILY FOR MIGRAINE HEADACHE PROPHYLAXIS 02-21 00:00: 00 Yes Georgi Delaney TOPIRAMATE 25 MG TABS 02-20 00:00: 00 Yes Georgi Delaney TOPIRAMATE 50 MG TABS 02-20 00:00: 00 Yes Georgi Delaney topiramate 50 mg tablet 02-20 00:00: 00 03-19 00:00 :00 No 50mg Take 1 tablet by mouth in the morning and 1 tablet in the evening. [facility] topiramate 25 mg tablet 02-20 00:00: 00 03-19 00:00 :00 No 25mg Take 1 tablet by mouth in the morning and 1 tablet in the evening. Take for 7 days then increase to 50mg twice a day. [facility] topiramate 25 mg tablet 02-16 00:00: 00 03-03 04:59 :00 No [id number] Take 1 tablet by mouth 2 (two) times daily for 7 days, THEN 2 tablets 2 (two) times daily for 7 days. [facility] ubrogepant 100 mg Tab 02-16 00:00: 00 02-27 00:00 :00 No [id number] 100mg Take 1 tablet by mouth as needed for Other (Headache) for up to 10 doses. If symptoms persist or return, may repeat dose after 2 hours. Maximum: 200 mg per 24 hours [facility] VENTOLIN HFA 90 mcg/actuati on inhaler 02-09 00:00: 00 04-20 00:00 :00 No INHALE 2 PUFFS EVERY 3-4 HOURS NEEDED FOR WHEEZING, COUGH, SHORTNESS OF BREATH [facility] TAKE 1 TABLET DAILY NEEDED FOR MIGRAINE. [...] 01-23 00:00: 00 12-25 00:00 :00 No [id number] Georgi Delaney TAKE 1 TABLET DAILY FOR [...] 01-17 00:00: 00 12-25 00:00 :00 No [id number] Georgi Delaney PREDNISONE 10 MG TABS 27 00:00: 00 Yes Georgi Delaney TRAMADOL HYDROCHLORI DE ER 100 MG TB24 01-01 00:00: 00 Yes Georgi Delaney traMADoL 100 mg 24 hr tablet 01-01 00:00: 00 04-20 00:00 :00 No TAKE 1 TABLET BY MOUTH EVERY DAY NEEDED FOR SEVERE PAIN [facility] HYDROCODONE BITARTRATE/ ACETAMINOPH E N 7.5-325 MG/15ML SOLN 18 00:00: 00 Yes Georgi Delaney INHALE 2 PUFFS EVERY 3-4 HOURS NEEDED FOR WHEEZING, COUGH, SHORTNESS OF BREATH 12-22 00:00: 00 Yes Georgi Delaney INHALE 2 PUFFS EVERY 3-4 HOURS PRN WHEEZING, COUGH, SHORTNESS OF BREATH 12-22 00:00: 00 12-25 00:00 :00 No [id number] Georgi Delaney METHYLPREDN ISOLONE DOSE PACK 4 MG TBPK 12-16 00:00: 00 Yes Georgi Delaney TAKE 5 ML EVERY 4-6 HOURS, MAY INCREASE TO 10ML AT NIGHT TIME NEEDED. 12-16 00:00: 00 12-25 00:00 :00 No [id number] Georgi Delaney FOLLOW DIRECTIONS ON PACKAGE 12-16 00:00: 00 12-25 00:00 :00 No 4 Georgi Delaney levothyroxi ne 112 mcg tablet 12-09 00:00: 00 [facility] HYDROCHLORI DE 20 MG TABS 12-09 [...] No 300 Georgimariama Delaney TAKE 1 TABLET AT BEDTIME. 2-17 00:00: 00 12-25 00:00 :00 No 8 Georgi F Rhett TAKE 1 TABLET TWICE A DAY WITH MEALS 2-07 00:00: 00 12-25 00:00 :00 No 500 Georgimariama Delaney TAKE 1 TABLET EVERY MORNING. 2-03 00:00: 00 12-25 00:00 :00 No 300 Georgimariama Delaney TAKE 1 TABLET AT BEDTIME. 2-03 00:00: 00 12-25 00:00 :00 No 8 Georgimariama Delaney TAKE 2 TABLETS 3 TIMES DAILY. 2-03 00:00: 00 12-25 00:00 :00 No 10 Georgi Alex Delaney TAKE 1 TABLET 3 TIMES DAILY. 2-03 00:00: 00 12-25 00:00 :00 No 300 Georgi Delaney TAKE 1 TABLET DAILY. 1-31 00:00: 00 12-25 00:00 :00 No 8 Georgi Alex Delaney CHLORTHALID ONE 25 MG -24 00:00: 00 Yes Georgimariama Delaney TAKE 1 CAPSULE BY MOUTH ONCE DAILY -24 00:00: 00 12-25 00:00 :00 No [id number] Georgi F Rhett USE DIRECTED 09-04 00:00: 00 12-25 00:00 :00 No 68 Georgi F Rhett TAKE 1 TABLET AT BEDTIME. - 00:00: 00 12-25 00:00 :00 No 100 Georgimariama Delaney TAKE 2 TABLETS 3 TIMES DAILY. 09-04 00:00: 00 12-25 00:00 :00 No 10 Georgi Alex Delaney TAKE 1 TABLET TWICE DAILY. 09-04 [...] F Rhett TAKE 1 TABLET DAILY. 2021-08 1-16 00:00: 00 No TAKE 1 TABLET DAILY. 2021-08 1 00:00: 00 No TAKE 1 TABLET DAILY. 2021-08 1-16 00:00: 00 12-25 00:00 :00 No Georgi F Rhett TAKE 1 TABLET DAILY. 2021-08 0 00:00: 00 No 112 TAKE 1 TABLET DAILY. 2021-08 027 00:00: 00 12-25 00:00 :00 No 112 [...] Yes Georgi F Rhett Dose Unknown 2-0 8-03 00:00: 00 No Dose Unknown 2022-0 8-03 00:00: 00 No Dose Unknown 2021-0 8 00:00: 00 No Dose Unknown 2021-0 8 00:00: 00 No Dose Unknown 2021-0 03-15 00:00: 00 Yes Georgi Delaney Wellbutrin XL 300 mg 24 hr tablet, extended release 2-0 03-14 00:00: 00 No 1mg Trileptal 150 [...] 8 00:00: 00 No 1mg Dose Unknown 0 8 00:00: 00 No Dose Unknown 2021-0 8 00:00: 00 No Dose Unknown 0 8 00:00: 00 No Dose Unknown 2022-0 8- 00:00: 00 No Dose Unknown 2-0 8- 00:00: 00 No Wellbutrin XL 300 mg 24 hr tablet, extended release 2-0 8- 00:00: 00 No 1mg Trileptal 150 mg tablet 2-0 8 00:00: 00 No 1mg buspirone 10 mg tablet 2-0 8- 00:00: 00 No 1mg Dose Unknown 2-0 [...] Georgi Delaney buspirone 10 mg tablet 2-0 8 00:00: 00 Yes 1mg Georgi Delaney Seroquel 100 mg tablet 2021-0 8 00:00: 00 Yes 1mg Georgi F Rhett Dose Unknown 2021-0 8- 00:00: 00 Yes Georgi F Rhett Dose Unknown 2021-0 8- 00:00: 00 Yes Georgi F Rhett Dose Unknown 2-0 8- 00:00: 00 Yes Georgi F Rhett Dose Unknown 2-0 8 00:00: 00 Yes Egorgi F Rhett Dose Unknown 2-0 8- 00:00: 00 Yes Georgi F Rhett Dose Unknown 2-0 8- 00:00: 00 Yes 300 Georgi F Rhett Dose Unknown 2-0 8 00:00: 00 Yes 10 Georgi F [...] 02-28 00:00: 00 No 1mg Dose Unknown 2022-0 02-28 00:00: 00 No Dose Unknown 2022-0 7 00:00: 00 No Dose Unknown 2022-0 7 00:00: 00 No Dose Unknown 2022-0 02-28 00:00: 00 No Dose Unknown 2022-0 02-28 00:00: 00 No Dose Unknown 2022-0 02-28 00:00: 00 No Wellbutrin XL 300 [...] 7-13 00:00: 00 No Dose Unknown 2022-0 7 [...] 00 Yes Georgi Delaney Dose Unknown 2022-0 02-22 00:00: 00 Yes Georgi Delaney Dose Unknown 2022-0 02-22 00:00: 00 Yes Georgi Delaney Dose Unknown [...] 00 Yes Georgi Delaney Dose Unknown 2021-0 02-15 00:00: 00 No Dose Unknown 2-0 [...] release 02-14 00:00: 00 Yes 1mg Georgi Delaney buspirone 10 mg tablet 2021-0 7 00:00: 00 Yes 1mg Georgi Delaney Seroquel 100 mg tablet 2021-0 02-14 00:00: 00 Yes 1mg Georgi Delaney Lamictal 25 mg tablet 2021-0 02-14 00:00: 00 Yes 1mg Georgi Delaney Dose Unknown 2021-0 7 00:00: 00 Yes Georgi Delaney Dose Unknown 2021-0 7 00:00: 00 Yes Georgi Delaney Dose Unknown 2021-0 02-14 00:00: 00 Yes Georgi Delaney Dose Unknown 2021-0 6 00:00: 00 No Dose Unknown 2022-0 6 00:00: 00 No Dose Unknown 2022-0 6 00:00: 00 No Dose Unknown 2022-0 6 00:00: 00 No Dose Unknown 2022-0 6 00:00: 00 No Dose Unknown 2022-0 6 00:00: 00 No Dose Unknown 2022-0 6 00:00: 00 No Dose Unknown 2022-0 630 00:00: 00 No Dose Unknown 2022-0 630 00:00: 00 No Dose Unknown 2022-0 630 00:00: 00 No Dose Unknown 2022-0 630 00:00: 00 Yes Georgi Delaney Dose Unknown 2021-0 6 00:00: 00 Yes Georgi Delaney levothyroxi ne 112 mcg tablet 2-0 01-19 00:00: 00 No 1mcg Dose Unknown 2022-0 6 00:00: 00 No levothyroxi ne 112 mcg tablet 2022-0 6 00:00: 00 No 1mcg levothyroxi ne 112 mcg tablet 2022-0 6 00:00: 00 No 1mcg levothyroxi ne 112 mcg tablet 2022-0 6 00:00: 00 No 1mcg levothyroxi ne 112 mcg tablet 2022-0 6 00:00: 00 Yes 1mcg Georgi Delaney Dose Unknown 2022-0 6 00:00: 00 Yes 112 Georgi Delaney Dose Unknown 202-0 6 00:00: 00 Yes 112 Georgi Delaney TAKE 1 TABLET DAILY. 0 - 00:00: 00 No levothyroxi ne 50 mcg tablet 0 01-18 00:00: 00 No 1mcg TAKE 1 TABLET DAILY. 0 - 00:00: 00 No Dose Unknown 0 01-18 00:00: 00 No chlorthalid one 25 mg [...] No spironolact one 100 mg tablet 0 - 00:00: 00 No 1mg ibuprofen 800 mg tablet 0 -12 00:00: 00 No 1mg spironolact one 100 mg tablet 0 - 00:00: 00 No 1mg ibuprofen 800 mg tablet 0 -12 00:00: 00 No 1mg spironolact one 100 mg tablet 0 -12 00:00: 00 No 1mg ibuprofen 800 mg tablet 0 -12 00:00: 00 No 1mg spironolact one 100 mg tablet 0 -12 00:00: 00 Yes 1mg Georgimariama Delaney ibuprofen 800 mg tablet 0 - [...] 12-13 00:00: 00 No Dose Unknown 0 - [...] Georgi Delaney CITALOPRAM HBR 20 MG 2021-0 5- 00:00: 00 Yes Georgi Delaney levothyroxi ne 25 mcg tablet 0 18 00:00: 00 No 1mcg Dose Unknown 0 18 00:00: 00 No levothyroxi ne 25 mcg tablet 0 18 00:00: 00 No 1mcg levothyroxi ne 25 mcg tablet 0 18 00:00: 00 No 1mcg levothyroxi ne 25 mcg tablet 0 18 00:00: 00 No 1mcg levothyroxi ne [...] Dose Unknown 0 14 00:00: 00 No metformin ER 500 mg 24 hr tablet,exte nded release 0 -14 00:00: 00 No 1mg spironolact one 50 [...] tablet 2022-0 4-05 00:00: 00 No 1mg Dose Unknown 2-0 4-05 00:00: 00 No Dose Unknown 2021-0 4-05 00:00: 00 No Dose Unknown 2021-0 4-05 00:00: 00 No Dose Unknown 2021-0 405 00:00: 00 No Celexa 20 mg tablet 2-0 4-05 00:00: 00 No 1mg Wellbutrin XL 300 mg 24 hr tablet, extended release 2-0 4-05 00:00: 00 No 1mg buspirone 10 mg tablet 2-0 405 00:00: 00 No 1mg Seroquel 100 mg tablet 2-0 405 00:00: 00 No 1mg Dose Unknown 2021-0 4-05 00:00: 00 No Dose Unknown 2021-0 405 00:00: 00 No Dose Unknown 2021-0 05 00:00: 00 No TAKE 1 TABLET AT BEDTIME. 2021-0 4-05 00:00: 00 No Wellbutrin XL [...] Unknown 2022-0 2-25 00:00: 00 Yes Georgi Johnson Rhett Dose Unknown 2022-0 2-25 00:00: 00 Yes Georgi Delaney Dose Unknown 2022-0 2-25 00:00: 00 Yes Georgi Delaney Dose Unknown 2022-0 2-25 00:00: 00 Yes 10 Georgi Delaney Dose Unknown 2022-0 2-08 00:00: 00 No [...] 2-0 124 00:00: 00 No Dose Unknown 2022-0 124 00:00: 00 No Wellbutrin XL 150 mg 24 hr tablet, extended release 2022-0 1-24 00:00: 00 No 1mg Dose Unknown 2-0 24 00:00: 00 No Dose Unknown 2-0 24 00:00: 00 No Dose Unknown 2-0 24 00:00: 00 No Wellbutrin XL 150 mg 24 hr tablet, extended release 2-0 24 00:00: 00 Yes 1mg Georgi Delaney Dose Unknown 2-0 24 00:00: 00 Yes Georgi F Rhett Dose Unknown 2-0 24 00:00: 00 Yes Georgi F Rhett Dose Unknown 2-0 08-23 00:00: 00 No [...] 1-11 00:00: 00 No Dose Unknown 2-0 1 00:00: 00 No Dose Unknown 2-0 1-11 [...] 1-11 00:00: 00 No 1mg Dose Unknown 1- 00:00: 00 No Dose Unknown 1- 00:00: 00 No Wellbutrin XL 150 mg 24 hr tablet, extended release 1- 00:00: 00 Yes 1mg Georgi Delaney Dose Unknown 1- 00:00: 00 Yes Georgimariama Delaney Dose Unknown 2020-08 2- 00:00: 00 No Dose Unknown 2020-08 00:00: [...] No 1mg Zofran 4 mg tablet 2020-08 2 00:00: 00 No 1mg Dose Unknown 2020-08 00:00: 00 No omeprazole 40 mg capsule,del ayed release 2020-08 00:00: 00 No 1mg Zofran 4 mg tablet 2020-08 00:00: 00 Yes 1mg Georgi Delaney Dose Unknown 2020-08 00:00: 00 Yes Georgi Delaney omeprazole 40 mg capsule,del ayed release 2020-08 00:00: 00 Yes 1mg Georgi Delaney maalox:diph enhydrAMINE :lidocaine 2 % viscous 1:1:1 ([facility]) oral suspension 15 mL 2020-08 21:00: 07-27 20:01 :00 No 15mL 15 mL, Oral (Swish & Swallow), ONCE, 1 dose, On Sun07/27/21 at 1500, Routine [facility] methocarbam oL (ROBAXIN) tablet 500 mg 2020-08 19:30: 00 07-27 18:29 :00 No 500mg 500 mg, Oral, ONCE, 1 dose, On Sun07/27/21 at 1330, Routine [facility] ketorolac (TORADOL) injection 30 mg 2020-08 19:30: 00 07-27 18:28 :00 No 30mg 30 mg, Slow IV Push, ONCE, 1 dose, On Sun07/27/21 at 1330, PAWEL
Fa cult[employer] member approving Restricted medication : Yamil MESSINA [facility] aspirin chewable tablet 324 mg 2020-08 19:30: 00 07-27 19:30 :00 No 324mg 324 mg, Oral, ONCE, 1 dose, On Sun07/27/21 at 1330, Routine [facility] Dose Unknown 2020-08 00:00: 00 No hydroxyzine [...] 2 00:00: 00 No Dose Unknown 2020-08 00:00: 00 Yes Georgi Delaney hydroxyzine HCl 50 mg tablet 2020-08 00:00: 00 Yes 1mg Georgi Delaney famotidine (PEPCID) 40 mg tablet 2020-08 2 00:00: 00 02-16 00:00 :00 No [id number] 40mg Take 1 tablet by mouth daily. [facility] ibuprofen 600 mg tablet 2020-08 00:00: 00 02-16 00:00 :00 No [id number] 600mg Take 1 tablet by mouth every 6 (six) hours as needed for Pain (scale 4-6). [facility] methocarbam oL 500 mg tablet 2020-08 00:00: 00 02-16 00:00 :00 No [id number] 500mg Take 1 tablet by mouth 4 (four) times daily. [facility] sertraline 100 mg tablet 2020-08 00:00: 00 [...] 1 dose, On Sun06/24/21 at 2345, [facility]ose [facility] 2020-08 00:00: 00 No Dose [...] 1mg hydroxyzine HCl 50 mg tablet 2020-08 018 00:00: 00 No 1mg trazodone 100 mg [...] Georgi Delaney sertraline 50 mg tablet 2020-08 0- 00:00: [...] 01-05 21:00: 00 01-05 21:00 :00 No [id number] 100 1{devic e} [facility] ibuprofen (IBU) tablet 800 mg 01-05 21:00: 00 01-05 21:00 :00 No [id number] 100 800mg [facility] levonorgest rel (LILETTA INTRAUTERIN E) 01-05 00:00: 00 01-05 04:59 :00 No by Intrauteri ne route. [facility] levonorgest rel (LILETTA INTRAUTERIN E) 01-05 00:00: 00 02-16 00:00 :00 No by Intrauteri ne route. [facility] ProAir HFA 90 mcg/actuati on aerosol inhaler 12-13 00:00: 00 No 2mcg/ac tuation Tessalon Perles 100 mg capsule 12-13 00:00: 00 No 1mg ProAir HFA 90 mcg/actuati on aerosol inhaler 0 - 00:00: 00 No 2mcg/ac tuation Tessalon Perles 100 mg capsule 12-13 00:00: 00 No 1mg ProAir HFA 90 mcg/actuati on aerosol inhaler 0 - 00:00: 00 No 2mcg/ac tuation ProAir HFA 90 mcg/actuati on aerosol inhaler - 00:00: 00 No 2mcg/ac tuation Tessalon Perles 100 mg capsule 0 - 00:00: 00 No 1mg Tessalon Perles 100 mg capsule 0 - 00:00: 00 No 1mg ProAir HFA 90 mcg/actuati on aerosol inhaler 0 - 00:00: 00 No 2mcg/ac tuation Tessalon Perles 100 mg capsule 0 - 00:00: 00 No 1mg ProAir HFA 90 mcg/actuati on aerosol inhaler 0 5- 00:00: 00 Yes 2mcg/ac tuation Georgi F Rhett Tessalon Perles 100 mg capsule 0 5- 00:00: 00 Yes 1mg Georgi F [...] No known medications No Un kurt ity [facility] No known medications No Un kurt ity [facility] No known medications No Un ukrt ity [facility] Immunizations Ordered Immunization Name Filled Immunization Name [...] SARS-COV-2 COVID-19 PFIZER VACCINE 2020-12-02 00:00:00 Completed [facility] SARS-COV-2 COVID-19 PFIZER VACCINE 2020-12-02 00:00:00 Completed [facility] SARS-COV-2 COVID-19 PFIZER VACCINE 2020-12-02 00:00:00 Completed [facility] SARS-COV-2 COVID-19 PFIZER VACCINE 2020-12-02 00:00:00 Completed [facility] SARS-COV-2 COVID-19 PFIZER VACCINE 2020-12-02 00:00:00 Completed [facility] SARS-COV-2 COVID-19 PFIZER VACCINE 2020-12-02 00:00:00 Completed [facility] SARS-COV-2 COVID-19 PFIZER VACCINE 2020-12-02 00:00:00 Completed [facility] SARS-COV-2 COVID-19 PFIZER VACCINE 2020-12-02 00:00:00 Completed [facility] SARS-COV-2 COVID-19 PFIZER VACCINE 2020-12-02 00:00:00 Completed [facility] SARS-COV-2 COVID-19 PFIZER VACCINE 2020-12-02 00:00:00 Completed [facility] SARS-COV-2 COVID-19 PFIZER VACCINE 2020-12-02 00:00:00 Completed [facility] SARS-COV-2 COVID-19 PFIZER VACCINE 2020-12-02 00:00:00 Completed [facility] SARS-COV-2 COVID-19 PFIZER VACCINE 2020-12-02 00:00:00 Completed [facility] SARS-COV-2 COVID-19 PFIZER VACCINE 2020-12-02 00:00:00 Completed [facility] SARS-COV-2 COVID-19 PFIZER VACCINE 2020-12-02 00:00:00 Completed [facility] SARS-COV-2 COVID-19 PFIZER VACCINE 2020-12-02 00:00:00 Completed [facility] SARS-COV-2 COVID-19 PFIZER VACCINE 2020-12-02 00:00:00 Completed [facility] SARS-COV-2 COVID-19 PFIZER VACCINE 2020-12-02 00:00:00 Completed [facility] SARS-COV-2 COVID-19 PFIZER VACCINE 2020-12-02 00:00:00 Completed [facility] SARS-COV-2 COVID-19 PFIZER VACCINE 2020-12-02 00:00:00 Completed [facility] SARS-COV-2 COVID-19 PFIZER VACCINE 2020-12-02 00:00:00 Completed [facility] SARS-COV-2 COVID-19 PFIZER VACCINE 2020-12-02 00:00:00 Completed [facility] SARS-COV-2 COVID-19 PFIZER VACCINE 2020-12-02 00:00:00 Completed [facility] SARS-COV-2 COVID-19 PFIZER VACCINE 2020-12-02 00:00:00 Completed [facility] SARS-COV-2 COVID-19 PFIZER VACCINE 2020-12-02 00:00:00 Completed [facility] SARS-COV-2 COVID-19 PFIZER VACCINE 2020-12-02 00:00:00 Completed [facility] SARS-COV-2 COVID-19 PFIZER VACCINE 2020-12-02 00:00:00 Completed [facility] SARS-COV-2 COVID-19 PFIZER VACCINE 2020-12-02 00:00:00 Completed [facility] SARS-COV-2 COVID-19 PFIZER VACCINE 2020-11-09 00:00:00 Completed [facility] SARS-COV-2 COVID-19 PFIZER VACCINE 2020-11-09 00:00:00 Completed [facility] SARS-COV-2 COVID-19 PFIZER VACCINE 2020-11-09 00:00:00 Completed [facility] SARS-COV-2 COVID-19 PFIZER VACCINE 2020-11-09 00:00:00 Completed [facility] SARS-COV-2 COVID-19 PFIZER VACCINE 2020-11-09 00:00:00 Completed [facility] SARS-COV-2 COVID-19 PFIZER VACCINE 2020-11-09 00:00:00 Completed [facility] SARS-COV-2 COVID-19 PFIZER VACCINE 2020-11-09 00:00:00 Completed [facility] SARS-COV-2 COVID-19 PFIZER VACCINE 2020-11-09 00:00:00 Completed [facility] SARS-COV-2 COVID-19 PFIZER VACCINE 2020-11-09 00:00:00 Completed [facility] SARS-COV-2 COVID-19 PFIZER VACCINE 2020-11-09 00:00:00 Completed [facility] SARS-COV-2 COVID-19 PFIZER VACCINE 2020-11-09 00:00:00 Completed [facility] SARS-COV-2 COVID-19 PFIZER VACCINE 2020-11-09 00:00:00 Completed [facility] SARS-COV-2 COVID-19 PFIZER VACCINE 2020-11-09 00:00:00 Completed [facility] SARS-COV-2 COVID-19 PFIZER VACCINE 2020-11-09 00:00:00 Completed [facility] SARS-COV-2 COVID-19 PFIZER VACCINE 2020-11-09 00:00:00 Completed [facility] SARS-COV-2 COVID-19 PFIZER VACCINE 2020-11-09 00:00:00 Completed [facility] SARS-COV-2 COVID-19 PFIZER VACCINE 2020-11-09 00:00:00 Completed [facility] SARS-COV-2 COVID-19 PFIZER VACCINE 2020-11-09 00:00:00 Completed [facility] SARS-COV-2 COVID-19 PFIZER VACCINE 2020-11-09 00:00:00 Completed [facility] SARS-COV-2 COVID-19 PFIZER VACCINE 2020-11-09 00:00:00 Completed [facility] SARS-COV-2 COVID-19 PFIZER VACCINE 2020-11-09 00:00:00 Completed [facility] SARS-COV-2 COVID-19 PFIZER VACCINE 2020-11-09 00:00:00 Completed [facility] SARS-COV-2 COVID-19 PFIZER VACCINE 2020-11-09 00:00:00 Completed [facility] SARS-COV-2 COVID-19 PFIZER VACCINE 2020-11-09 00:00:00 Completed [facility] SARS-COV-2 COVID-19 PFIZER VACCINE 2020-11-09 00:00:00 Completed [facility] SARS-COV-2 COVID-19 PFIZER VACCINE 2020-11-09 00:00:00 Completed [facility] SARS-COV-2 COVID-19 PFIZER VACCINE 2020-11-09 00:00:00 Completed [facility] SARS-COV-2 COVID-19 PFIZER VACCINE Unknown Completed [facility] SARS-COV-2 COVID-19 PFIZER VACCINE Unknown Completed [facility] SARS-COV-2 COVID-19 PFIZER VACCINE Unknown Completed [facility] SARS-COV-2 COVID-19 PFIZER VACCINE Unknown Completed [facility] SARS-COV-2 COVID-19 PFIZER VACCINE Unknown Completed [facility] SARS-COV-2 COVID-19 PFIZER VACCINE Unknown Completed [facility] SARS-COV-2 COVID-19 PFIZER VACCINE Unknown Completed [facility] SARS-COV-2 COVID-19 PFIZER VACCINE Unknown Completed [facility] SARS-COV-2 COVID-19 PFIZER VACCINE Unknown Completed [facility] SARS-COV-2 COVID-19 PFIZER VACCINE Unknown Completed [facility] SARS-COV-2 COVID-19 PFIZER VACCINE Unknown Completed [facility] SARS-COV-2 COVID-19 PFIZER VACCINE Unknown Completed [facility] SARS-COV-2 COVID-19 PFIZER VACCINE Unknown Completed [facility] SARS-COV-2 COVID-19 PFIZER VACCINE Unknown Completed [facility] SARS-COV-2 COVID-19 PFIZER VACCINE Unknown Completed [facility] SARS-COV-2 COVID-19 PFIZER VACCINE Unknown Completed [facility] SARS-COV-2 COVID-19 PFIZER VACCINE Unknown Completed [facility] SARS-COV-2 COVID-19 PFIZER VACCINE Unknown Completed [facility] SARS-COV-2 COVID-19 PFIZER VACCINE Unknown Completed [facility] SARS-COV-2 COVID-19 PFIZER VACCINE Unknown Completed [facility] SARS-COV-2 COVID-19 PFIZER VACCINE Unknown Completed [facility] SARS-COV-2 COVID-19 PFIZER VACCINE Unknown Completed [facility] SARS-COV-2 COVID-19 PFIZER VACCINE Unknown Completed [facility] SARS-COV-2 COVID-19 PFIZER VACCINE Unknown Completed [facility] SARS-COV-2 COVID-19 PFIZER VACCINE Unknown Completed [facility] SARS-COV-2 COVID-19 PFIZER VACCINE Unknown Completed [facility] SARS-COV-2 COVID-19 PFIZER VACCINE Unknown Completed [facility] SARS-COV-2 COVID-19 PFIZER VACCINE Unknown Completed [facility] SARS-COV-2 COVID-19 PFIZER VACCINE Unknown Completed [facility] SARS-COV-2 COVID-19 PFIZER VACCINE Unknown Completed [facility] SARS-COV-2 COVID-19 PFIZER VACCINE Unknown Completed [facility] SARS-COV-2 COVID-19 PFIZER VACCINE Unknown Completed [facility] SARS-COV-2 COVID-19 PFIZER VACCINE Unknown Completed [facility] SARS-COV-2 COVID-19 PFIZER VACCINE Unknown Completed [facility] SARS-COV-2 COVID-19 PFIZER VACCINE Unknown Completed [facility] SARS-COV-2 COVID-19 PFIZER VACCINE Unknown Completed [facility] COVID-19 Bivalent vaccine PFIZER 12+ Unknown Completed [...] blood pressure 2024-06-26 20:47:00 118 mm[Hg] Rolanda Howellybo ld - External Diastolic blood pressure 2024-06-26 [...] Systolic blood pressure 2023-12-26 14:03:00 134 mm[Hg] [facility] Diastolic blood pressure 2023-12-26 14:03:00 74 mm[Hg] [facility] Heart rate 2023-12-26 14:03:00 76 /min [facility] Body temperature 2023-12-26 14:03:00 36.33 Cele [facility] Respiratory rate 2023-12-26 14:03:00 18 /min [facility] Body weight 2023-12-26 14:03:00 119.75 kg [facility] BMI 2023-12-26 14:03:00 53.32 kg/m2 [facility] Systolic blood pressure 2023-12-25 14:23:00 119 mm[Hg] [facility] Diastolic blood pressure 2023-12-25 14:23:00 79 mm[Hg] [facility] Heart rate 2023-12-25 14:23:00 96 /min [facility] Respiratory rate 2023-12-25 14:23:00 18 /min [facility] Body height 2023-12-25 14:23:00 149.9 cm [facility] Body weight 2023-12-25 14:23:00 118.706 kg [facility] BMI 2023-12-25 14:23:00 52.86 kg/m2 [facility] Oxygen saturation in Arterial blood by Pulse oximetry 2023-12-25 14:23:00 98 /min [facility] Systolic blood pressure 2023-11-29 04:39:00 154 mm[Hg] [facility] Diastolic blood pressure 2023-11-29 04:39:00 113 mm[Hg] [facility] Heart rate 2023-11-29 04:39:00 82 /min [facility] Body temperature 2023-11-29 04:39:00 37.28 Cele [facility] Respiratory rate 2023-11-29 04:39:00 18 /min [facility] Body height 2023-11-29 04:39:00 149.9 cm [facility] Body weight 2023-11-29 04:39:00 113.399 kg [facility] BMI 2023-11-29 04:39:00 50.49 kg/m2 [facility] Oxygen saturation in Arterial blood by Pulse oximetry 2023-11-29 04:39:00 100 /min [facility] Systolic blood pressure 2023-11-01 13:26:00 126 mm[Hg] [facility] Diastolic blood pressure 2023-11-01 13:26:00 84 mm[Hg] [facility] Heart rate 2023-11-01 13:26:00 74 /min [facility] Respiratory rate 2023-11-01 13:26:00 18 /min [facility] Body height 2023-11-01 13:26:00 147.3 cm [facility] Body weight 2023-11-01 13:26:00 119.84 kg [facility] BMI 2023-11-01 13:26:00 55.22 kg/m2 [facility] Oxygen saturation in Arterial blood by Pulse oximetry 2023-11-01 13:26:00 98 /min [facility] Systolic blood pressure 2023-10-17 07:43:00 96 mm[Hg] [facility] Diastolic blood pressure 2023-10-17 07:43:00 53 mm[Hg] [facility] Heart rate 2023-10-17 07:43:00 66 /min [facility] Body temperature 2023-10-17 07:43:00 36.5 Cele [facility] Oxygen saturation in Arterial blood by Pulse oximetry 2023-10-17 07:43:00 97 /min [facility] Respiratory rate 2023-10-17 05:50:00 16 /min [facility] Body height 2023-10-17 05:50:00 147.3 cm [facility] Body weight 2023-10-17 05:50:00 120.657 kg [facility] BMI 2023-10-17 05:50:00 55.59 kg/m2 [facility] Systolic blood pressure 2023-09-18 20:56:00 110 mm[Hg] [facility] Diastolic blood pressure 2023-09-18 20:56:00 76 mm[Hg] [facility] Heart rate 2023-09-18 20:56:00 76 /min [facility] Body height 2023-09-18 20:56:00 147.3 cm [facility] Body weight 2023-09-18 20:56:00 121.882 kg [facility] BMI 2023-09-18 20:56:00 56.16 kg/m2 [facility] Oxygen saturation in Arterial blood by Pulse oximetry 2023-09-18 20:56:00 97 /min [facility] Systolic blood pressure 2023-08-28 17:17:00 132 mm[Hg] [facility] Diastolic blood pressure 2023-08-28 17:17:00 89 mm[Hg] [facility] Heart rate 2023-08-28 17:17:00 71 /min [facility] Oxygen saturation in Arterial blood by Pulse oximetry 2023-08-28 17:17:00 100 /min [facility] Body temperature 2023-08-28 17:16:00 36.28 Cele [facility] Respiratory rate 2023-08-28 17:16:00 18 /min [facility] Body height 2023-08-28 17:16:00 147.3 cm [facility] Body weight 2023-08-28 17:16:00 123.242 kg [facility] BMI 2023-08-28 17:16:00 56.79 kg/m2 [facility] Systolic blood pressure 2023-05-24 13:14:00 135 mm[Hg] [facility] Diastolic blood pressure 2023-05-24 13:14:00 80 mm[Hg] [facility] Heart rate 2023-05-24 13:14:00 81 /min [facility] Respiratory rate 2023-05-24 13:14:00 18 /min [facility] Body height 2023-05-24 13:14:00 147.3 cm [facility] Body weight 2023-05-24 13:14:00 126.871 kg [facility] BMI 2023-05-24 13:14:00 58.46 kg/m2 [facility] Oxygen saturation in Arterial blood by Pulse oximetry 2023-05-24 13:14:00 99 /min [facility] Heart rate 2023-04-21 04:53:00 67 /min [facility] Body temperature 2023-04-21 04:53:00 36.61 Cele [facility] Oxygen saturation in Arterial blood by Pulse oximetry 2023-04-21 04:53:00 99 /min [facility] Systolic blood pressure 2023-04-21 04:00:00 104 mm[Hg] [facility] Diastolic blood pressure 2023-04-21 04:00:00 57 mm[Hg] [facility] Respiratory rate 2023-04-21 00:26:00 20 /min [facility] Body height 2023-04-21 00:26:00 144.8 cm [facility] Body weight 2023-04-21 00:26:00 126.1 kg [facility] BMI 2023-04-21 00:26:00 60.16 kg/m2 [facility] Systolic blood pressure 2023-03-19 19:10:00 137 mm[Hg] [facility] Diastolic blood pressure 2023-03-19 19:10:00 88 mm[Hg] [facility] Heart rate 2023-03-19 19:10:00 93 /min [facility] Respiratory rate 2023-03-19 19:10:00 18 /min [facility] Body height 2023-03-19 19:10:00 147.3 cm [facility] Body weight 2023-03-19 19:10:00 127.914 kg [facility] BMI 2023-03-19 19:10:00 58.94 kg/m2 [facility] Oxygen saturation in Arterial blood by Pulse oximetry 2023-03-19 19:10:00 98 /min [facility] Systolic blood pressure 2023-02-16 21:12:00 157 mm[Hg] [facility] Diastolic blood pressure 2023-02-16 21:12:00 95 mm[Hg] [facility] Heart rate 2023-02-16 21:12:00 95 /min [facility] Body height 2023-02-16 21:12:00 147.3 cm [facility] Body weight 2023-02-16 21:12:00 132.224 kg [facility] BMI 2023-02-16 21:12:00 60.92 kg/m2 [facility] Oxygen saturation in Arterial blood by Pulse oximetry 2023-02-16 21:12:00 98 /min [facility] Heart rate 2021-07-27 21:30:00 62 /min [facility] Respiratory rate 2021-07-27 21:30:00 22 /min [facility] Oxygen saturation in Arterial blood by Pulse oximetry 2021-07-27 21:30:00 95 /min [facility] Systolic blood pressure 2021-07-27 21:25:00 137 mm[Hg] [facility] Diastolic blood pressure 2021-07-27 21:25:00 77 mm[Hg] [facility] Body temperature 2021-07-27 18:35:24 36.78 Cele [facility] Body height 2021-07-27 18:02:00 147.3 cm [facility] Body weight 2021-07-27 18:02:00 124.739 kg [facility] BMI 2021-07-27 18:02:00 57.48 kg/m2 [facility] Systolic blood pressure 2021-06-25 05:00:00 134 mm[Hg] [facility] Diastolic blood pressure 2021-06-25 05:00:00 60 mm[Hg] [facility] Heart rate 2021-06-25 05:00:00 78 /min [facility] Respiratory rate 2021-06-25 05:00:00 27 /min [facility] Oxygen saturation in Arterial blood by Pulse oximetry 2021-06-25 05:00:00 97 /min [facility] Body temperature 2021-06-25 04:16:00 36.94 Cele [facility] Body height 2021-06-25 04:16:00 147.3 cm [facility] Body weight 2021-06-25 04:16:00 127.007 kg [facility] BMI 2021-06-25 04:16:00 58.52 kg/m2 [facility] Systolic blood pressure 2021-02-17 19:29:00 124 mm[Hg] [facility] Diastolic blood pressure 2021-02-17 19:29:00 88 mm[Hg] [facility] Heart rate 2021-02-17 19:29:00 89 /min Un[facility] Respiratory rate 2021-02-17 19:29:00 18 /min [facility] Body weight 2021-02-17 19:29:00 126.281 kg [facility] BMI 2021-02-17 19:29:00 56.23 kg/m2 [facility] Systolic blood pressure 2021-01-05 19:16:00 132 mm[Hg] [facility] Diastolic blood pressure 2021-01-05 19:16:00 88 mm[Hg] [place] [facility] Heart rate 2021-01-05 19:16:00 89 /min [facility] Body temperature 2021-01-05 19:16:00 37.28 Cele [facility] Respiratory rate 2021-01-05 19:16:00 18 /min [facility] Body height 2021-01-05 19:16:00 149.9 cm [facility] Body weight 2021-01-05 19:16:00 125.51 kg [facility] BMI 2021-01-05 19:16:00 55.89 kg/m2 [facility] Systolic blood pressure 2020-12-07 19:42:00 124 mm[Hg] [facility] Diastolic blood pressure 2020-12-07 19:42:00 86 mm[Hg] [facility] Heart rate 2020-12-07 19:42:00 89 /min [facility] Respiratory rate 2020-12-07 19:42:00 19 /min [facility] Body height 2020-12-07 19:42:00 152.4 cm [facility] Body weight 2020-12-07 19:42:00 127.551 kg [facility] BMI 2020-12-07 19:42:00 54.92 kg/m2 [facility] BP Systolic 2023-12-27 08:23:00 115 mm[Hg] Lennox Delaney BP Diastolic 2023-12-27 08:23:00 58 mm[Hg] Oscar Delaney Weight Measured 2023-12-27 08:23:00 264.60 pounds Georgi Delaney Height Measured 2023-12-27 08:23:00 60.16 inches Georgi Delaney Body Temperature 2023-12-27 08:23:00 98.20 degrees Georgi Delaney Heart Rate 2023-12-27 08:23:00 64.00 /min Jane Delaney Respiratory Rate 2023-12-27 08:23:00 Georgi Delaney Systolic blood pressure 2023-12-26 14:03:00 134 mm[Hg] [facility] Diastolic blood pressure 2023-12-26 14:03:00 74 mm[Hg] [facility] Heart rate 2023-12-26 14:03:00 76 /min [facility] Body temperature 2023-12-26 14:03:00 36.33 Cele [facility] Respiratory rate 2023-12-26 14:03:00 18 /min [facility] Body weight 2023-12-26 14:03:00 119.75 kg [facility] BMI 2023-12-26 14:03:00 53.32 kg/m2 [facility] Body height 2023-12-25 14:23:00 149.9 cm [facility] Oxygen saturation in Arterial blood by Pulse oximetry 2023-12-25 14:23:00 98 /min [facility] Systolic blood pressure 2023-12-19 14:08:00 112 mm[Hg] [facility] Diastolic blood pressure 2023-12-19 14:08:00 79 mm[Hg] [facility] Heart rate 2023-12-19 14:08:00 77 /min [facility] Respiratory rate 2023-12-19 14:08:00 20 /min [facility] Body height 2023-12-19 14:08:00 149.9 cm [facility] Body weight 2023-12-19 14:08:00 116.892 kg [facility] BMI 2023-12-19 14:08:00 52.05 kg/m2 [facility] Systolic blood pressure 2023-12-05 13:43:00 112 mm[Hg] [facility] Diastolic blood pressure 2023-12-05 13:43:00 80 mm[Hg] [facility] Heart rate 2023-12-05 13:43:00 73 /min [facility] Respiratory rate 2023-12-05 13:43:00 20 /min [facility] Body height 2023-12-05 13:43:00 149.9 cm [facility] Body weight 2023-12-05 13:43:00 117.572 kg [facility] BMI 2023-12-05 13:43:00 52.35 kg/m2 [facility] Body temperature 2023-11-29 04:39:00 37.28 Cele [facility] Oxygen saturation in Arterial blood by Pulse oximetry 2023-11-29 04:39:00 100 /min [place] [facility] BP Systolic 2023-11-06 10:25:00 131 mm[Hg] Step mariama Delaney BP Diastolic 2023-11-06 10:25:00 84 mm[Hg] Oscar jayme Delaney Weight Measured 2023-11-06 10:25:00 263.60 pounds Georgi Delaney Height Measured 2023-11-06 10:25:00 60.16 inches Georgi Delaney Body Temperature 2023-11-06 10:25:00 98.40 degrees Georgi Johnson Rhett Heart Rate 2023-11-06 10:25:00 109.00 /min Lennox Johnson [place] Respiratory Rate 2023-11-06 10:25:00 19.00 /min Georgi Johnson Rhett Systolic blood pressure 2023-11-01 13:26:00 126 mm[Hg] [place] [facility] Diastolic blood pressure 2023-11-01 13:26:00 84 mm[Hg] [facility] Heart rate 2023-11-01 13:26:00 74 /min Un[facility] Respiratory rate 2023-11-01 13:26:00 18 /min [facility] Body height 2023-11-01 13:26:00 147.3 cm [facility] Body weight 2023-11-01 13:26:00 119.84 kg [facility] BMI 2023-11-01 13:26:00 55.22 kg/m2 [facility] Oxygen saturation in Arterial blood by Pulse oximetry 2023-11-01 13:26:00 98 /min [facility] Systolic blood pressure 2023-10-31 13:11:00 115 mm[Hg] [place] [facility] Diastolic blood pressure 2023-10-31 13:11:00 78 mm[Hg] [facility] Heart rate 2023-10-31 13:11:00 86 /min [facility] Respiratory rate 2023-10-31 13:11:00 18 /min [facility] Body height 2023-10-31 13:11:00 147.3 cm [facility] Body weight 2023-10-31 13:11:00 119.296 kg [facility] BMI 2023-10-31 13:11:00 54.97 kg/m2 [facility] BP Systolic 2023-10-25 17:28:00 Lennox Delaney BP Diastolic 2023-10-25 17:28:00 Oscar Delaney Weight Measured 2023-10-25 17:28:00 262.20 pounds Georgi Delaney Height Measured 2023-10-25 17:28:00 Georgi Delaney Body Temperature 2023-10-25 17:28:00 Georgi Delaney Heart Rate 2023-10-25 17:28:00 Jane Delaney Respiratory Rate 2023-10-25 17:28:00 Georgi Delaney Systolic blood pressure 2023-10-17 07:43:00 96 mm[Hg] [facility] Diastolic blood pressure 2023-10-17 07:43:00 53 mm[Hg] [facility] Heart rate 2023-10-17 07:43:00 66 /min [facility] Body temperature 2023-10-17 07:43:00 36.5 Cele [facility] Oxygen saturation in Arterial blood by Pulse oximetry 2023-10-17 07:43:00 97 /min [facility] Respiratory rate 2023-10-17 05:50:00 16 /min [facility] Body height 2023-10-17 05:50:00 147.3 cm [facility] Body weight 2023-10-17 05:50:00 120.657 kg [facility] BMI 2023-10-17 05:50:00 55.59 kg/m2 [facility] Systolic blood pressure 2023-10-15 14:41:00 136 mm[Hg] [facility] Diastolic blood pressure 2023-10-15 14:41:00 90 mm[Hg] [facility] Heart rate 2023-10-15 14:41:00 89 /min Unive [facility] Respiratory rate 2023-10-15 14:41:00 18 /min [facility] Body height 2023-10-15 14:41:00 147.3 cm [facility] Body weight 2023-10-15 14:41:00 119.069 kg [facility] BMI 2023-10-15 14:41:00 54.86 kg/m2 [facility] BP Systolic 2023-10-01 17:15:00 119 mm[Hg] Step hen Alex Rhett BP Diastolic 2023-10-01 17:15:00 87 mm[Hg] Oscar phen Alex Delaney Weight Measured 2023-10-01 17:15:00 265.40 pounds Georgimariama Delaney Height Measured 2023-10-01 17:15:00 60.16 inches Georgi Alex Delaney Body Temperature 2023-10-01 17:15:00 98.20 degrees Georgi Alex Rhett Heart Rate 2023-10-01 17:15:00 71.00 /min Jane en F Rhett Respiratory Rate 2023-10-01 17:15:00 17.00 /min Georgi F [place] Systolic blood pressure 2023-09-18 20:56:00 110 mm[Hg] [place] [facility] Diastolic blood pressure 2023-09-18 20:56:00 76 mm[Hg] [facility] Heart rate 2023-09-18 20:56:00 76 /min Un[facility] Body height 2023-09-18 20:56:00 147.3 cm [facility] Body weight 2023-09-18 20:56:00 121.882 kg [facility] BMI 2023-09-18 20:56:00 56.16 kg/m2 [facility] Oxygen saturation in Arterial blood by Pulse oximetry 2023-09-18 20:56:00 97 /min [place] [facility] BP Systolic 2023-09-17 16:16:00 119 mm[Hg] Step hen Alex Delaney BP Diastolic 2023-09-17 16:16:00 86 mm[Hg] Oscar phen Alex Delaney Weight Measured 2023-09-17 16:16:00 264.00 pounds Georgi Delaney Height Measured 2023-09-17 16:16:00 60.16 inches Georgi Delaney Body Temperature 2023-09-17 16:16:00 98.00 degrees Georgi Delaney Heart Rate 2023-09-17 16:16:00 85.00 /min Jane en F [place] Respiratory Rate 2023-09-17 16:16:00 18.00 /min Georgi F [place] Systolic blood pressure 2023-09-17 14:29:00 105 mm[Hg] [place] [facility] Diastolic blood pressure 2023-09-17 14:29:00 74 mm[Hg] [facility] Heart rate 2023-09-17 14:29:00 81 /min [facility] Respiratory rate 2023-09-17 14:27:00 18 /min [facility] Body height 2023-09-17 14:27:00 147.3 cm [facility] Body weight 2023-09-17 14:27:00 119.614 kg [facility] BMI 2023-09-17 14:27:00 55.11 kg/m2 [facility] BP Systolic 2023-09-03 17:04:00 133 [...] Systolic blood pressure 2023-08-28 17:17:00 132 mm[Hg] [facility] Diastolic blood pressure 2023-08-28 17:17:00 89 mm[Hg] [facility] Heart rate 2023-08-28 17:17:00 71 /min Un[facility] Oxygen saturation in Arterial blood by Pulse oximetry 2023-08-28 17:17:00 100 /min [facility] Body temperature 2023-08-28 17:16:00 36.28 Cele [facility] Respiratory rate 2023-08-28 17:16:00 18 /min [facility] Body height 2023-08-28 17:16:00 147.3 cm [facility] Body weight 2023-08-28 17:16:00 123.242 kg [facility] BMI 2023-08-28 17:16:00 56.79 kg/m2 [facility] Systolic blood pressure 2023-07-23 14:45:00 116 mm[Hg] [facility] Diastolic blood pressure 2023-07-23 14:45:00 81 mm[Hg] [facility] Heart rate 2023-07-23 14:45:00 80 /min Unive [facility] Respiratory rate 2023-07-23 14:45:00 18 /min [facility] Body height 2023-07-23 14:45:00 147.3 cm [facility] Body weight 2023-07-23 14:45:00 125.7 kg [facility] BMI 2023-07-23 14:45:00 57.92 kg/m2 [facility] Systolic blood pressure 2023-07-18 14:01:00 105 mm[Hg] [facility] Diastolic blood pressure 2023-07-18 14:01:00 61 mm[Hg] [facility] Heart rate 2023-07-18 14:01:00 80 /min Un[facility] Respiratory rate 2023-07-18 14:01:00 18 /min [facility] Body height 2023-07-18 14:01:00 147.3 cm [facility] Body weight 2023-07-18 14:01:00 125.737 kg [facility] BMI 2023-07-18 14:01:00 57.93 kg/m2 [facility] Respiratory Rate 2023-07-16 17:51:00 17.00 /min Georgi Delaney BP Systolic 2023-07-16 17:51:00 124 mm[Hg] Step hen Alex Delaney BP Diastolic 2023-07-16 17:51:00 81 mm[Hg] Oscar Delaney Weight Measured 2023-07-16 17:51:00 278.00 pounds Georgi Delaney Height Measured 2023-07-16 17:51:00 60.16 inches Georgi Delaney Body Temperature 2023-07-16 17:51:00 98.40 degrees Georgi Delaney Heart Rate 2023-07-16 17:51:00 67.00 /min Jane Delaney Systolic blood pressure 2023-07-04 14:56:00 132 mm[Hg] [place] [facility] Diastolic blood pressure 2023-07-04 14:56:00 90 mm[Hg] [place] [facility] Heart rate 2023-07-04 14:56:00 90 /min Un[facility] Respiratory rate 2023-07-04 14:56:00 18 /min [facility] Body height 2023-07-04 14:56:00 147.3 cm [facility] Body weight 2023-07-04 14:56:00 124.286 kg [facility] BMI 2023-07-04 14:56:00 57.27 kg/m2 [facility] Systolic blood pressure 2023-06-20 14:47:00 109 mm[Hg] [facility] Diastolic blood pressure 2023-06-20 14:47:00 57 mm[Hg] [facility] Heart rate 2023-06-20 14:47:00 81 /min Un[facility] Respiratory rate 2023-06-20 14:47:00 18 /min [facility] Body height 2023-06-20 14:47:00 147.3 cm [facility] Body weight 2023-06-20 14:47:00 125.646 kg [facility] BMI 2023-06-20 14:47:00 57.89 kg/m2 [facility] BP Systolic 2023-06-18 17:47:00 135 mm[Hg] Step hen F Rhett BP Diastolic 2023-06-18 17:47:00 87 mm[Hg] Socar phen F Rhett Weight Measured 2023-06-18 17:47:00 279.40 pounds Georgi Alex Delaney Height Measured 2023-06-18 17:47:00 60.16 inches Georgi Delaney Body Temperature 2023-06-18 17:47:00 98.30 degrees Georgi F [place] Heart Rate 2023-06-18 17:47:00 98.00 /min Jane en F [place] Respiratory Rate 2023-06-18 17:47:00 19.00 /min Georgi F [place] Systolic blood pressure 2023-06-06 13:38:00 130 mm[Hg] [facility] Diastolic blood pressure 2023-06-06 13:38:00 87 mm[Hg] [facility] Heart rate 2023-06-06 13:38:00 83 /min [facility] Respiratory rate 2023-06-06 13:38:00 18 /min [facility] Body height 2023-06-06 13:38:00 147.3 cm [facility] Body weight 2023-06-06 13:38:00 126.009 kg [facility] BMI 2023-06-06 13:38:00 58.06 kg/m2 [facility] BP Systolic 2023-05-30 17:42:00 130 mm[Hg] Step hen F [facility] BP Diastolic 2023-05-30 17:42:00 89 mm[Hg] Oscar phen F Rhett Weight Measured 2023-05-30 17:42:00 278.60 pounds Georgi Delaney Height Measured 2023-05-30 17:42:00 60.16 inches Georgi Delaney Body Temperature 2023-05-30 17:42:00 98.20 degrees Georgi Delaney Heart Rate 2023-05-30 17:42:00 90.00 /min Jane en Alex Delaney Respiratory Rate 2023-05-30 17:42:00 19.00 /min Georgi Delaney Oxygen saturation in Arterial blood by Pulse oximetry 2023-05-24 13:14:00 99 /min [place] [facility] BP Systolic 2023-05-15 17:46:00 122 mm[Hg] Step hen F Rhett BP Diastolic 2023-05-15 17:46:00 77 mm[Hg] Oscar phen Alex Delaney Weight Measured 2023-05-15 17:46:00 278.20 pounds Georgi Delaney Height Measured 2023-05-15 17:46:00 60.16 inches Georgi Delaney Body Temperature 2023-05-15 17:46:00 98.30 degrees Georgi Johnson Rhett Heart Rate 2023-05-15 17:46:00 83.00 /min Jane en Alex [place] Respiratory Rate 2023-05-15 17:46:00 17.00 /min Georgi Delaney Systolic blood pressure 2023-05-09 13:20:00 128 mm[Hg] [place] [facility] Diastolic blood pressure 2023-05-09 13:20:00 85 mm[Hg] [place] [facility] Heart rate 2023-05-09 13:20:00 74 /min [facility] Respiratory rate 2023-05-09 13:20:00 18 /min [facility] Body height 2023-05-09 13:20:00 144.8 cm [facility] Body weight 2023-05-09 13:20:00 124.603 kg [facility] BMI 2023-05-09 13:20:00 59.44 kg/m2 [facility] BP Systolic 2023-05-08 11:24:00 116 mm[Hg] Step hen Alex Delaney BP Diastolic 2023-05-08 11:24:00 81 mm[Hg] Oscar phen Alex Delaney Weight Measured 2023-05-08 11:24:00 275.00 pounds Georgi Delaney Height Measured 2023-05-08 11:24:00 60.16 inches Georgi Delaney Body Temperature 2023-05-08 11:24:00 97.60 degrees Georgi Delaney Heart Rate 2023-05-08 11:24:00 76.00 /min Jane Delaney Respiratory Rate 2023-05-08 11:24:00 20.00 /min Georgi Delaney Systolic blood pressure 2023-04-25 13:25:00 113 mm[Hg] [facility] Diastolic blood pressure 2023-04-25 13:25:00 85 mm[Hg] [facility] Heart rate 2023-04-25 13:25:00 71 /min [facility] Respiratory rate 2023-04-25 13:25:00 18 /min [facility] Body height 2023-04-25 13:25:00 144.8 cm [facility] Body weight 2023-04-25 13:25:00 126.463 kg [facility] BMI 2023-04-25 13:25:00 60.33 kg/m2 [facility] Body temperature 2023-04-21 04:53:00 36.61 Cele [facility] Oxygen saturation in Arterial blood by Pulse oximetry 2023-04-21 04:53:00 99 /min [facility] Systolic blood pressure 2023-04-04 14:18:00 116 mm[Hg] [facility] Diastolic blood pressure 2023-04-04 14:18:00 73 mm[Hg] [facility] Heart rate 2023-04-04 14:18:00 71 /min [facility] Respiratory rate 2023-04-04 14:09:00 18 /min [facility] Body height 2023-04-04 14:09:00 147.3 cm [facility] Body weight 2023-04-04 14:09:00 127.053 kg [facility] BMI 2023-04-04 14:09:00 58.54 kg/m2 [facility] Systolic blood pressure 2023-03-21 14:39:00 123 mm[Hg] [facility] Diastolic blood pressure 2023-03-21 14:39:00 81 mm[Hg] [facility] Heart rate 2023-03-21 14:39:00 76 /[facility] 2023-03-21 14:39:00 18 /min [facility] Body height 2023-03-21 14:39:00 147.3 cm [facility] Body weight 2023-03-21 14:39:00 127.9 kg Univ [facility] BMI 2023-03-21 14:39:00 58.93 kg/m2 [facility] Oxygen saturation in Arterial blood by Pulse oximetry 2023-03-19 19:10:00 98 /min [facility] Systolic blood pressure 2023-02-22 13:31:00 125 mm[Hg] [facility] Diastolic blood pressure 2023-02-22 13:31:00 82 mm[Hg] [facility] Heart rate 2023-02-22 13:31:00 79 /min [facility] Respiratory rate 2023-02-22 13:31:00 18 /min [facility] Body height 2023-02-22 13:31:00 147.3 cm [facility] Body weight 2023-02-22 13:31:00 132.2 kg [facility] BMI 2023-02-22 13:31:00 60.91 kg/m2 [facility] Oxygen saturation in Arterial blood by Pulse oximetry 2023-02-16 21:12:00 98 /min [facility] BP Systolic 2022-08-30 11:27:00 120 [...] /min Body temperature 2021-07-27 18:35:24 36.78 Cele [facility] Procedures Procedure Date / Time Performed Performing Clinician Source REFERRAL- REQUEST/RESPONSE 2023-11-07 16:25:56 Doctor Unassigned, [place] [facility] XR SPINE THORACIC 2 2023-10-25 20:12:25 Requisition , Paper [facility] XR SPINE THORACIC 2 2023-10-25 20:12:25 Requisition , Paper [facility] XR LUMBAR SPINE 4 2023-10-25 20:11:02 Requisition, Paper [facility] XR LUMBAR SPINE 4 2023-10-25 20:11:02 Requisition, Paper [facility] POCT TEST 2023-10-17 06:14:00 Bonnie Rocha [facility] POCT TEST 2023-10-17 06:14:00 Bonnie Rocha [facility] NOTICE OF PRIVACY PRACTICES 2023-10-17 05:41:39 Doctor Unassigned, [place] [facility] NOTICE OF PRIVACY PRACTICES 2023-10-17 05:41:39 Doctor Unassigned, [place] [facility] CONSENT/REFUSAL FOR DIAGNOSIS AND TREATMENT 2023-10-17 05:40:01 Doctor Unassigned, [place] [facility] CONSENT/REFUSAL FOR DIAGNOSIS AND TREATMENT 2023-10-17 05:40:01 Doctor Unassigned, [place] [facility] EMERGENCY SERVICES AGREEMENTS AND AUTHORIZATIONS 2023-10-16 06:01:00 Doctor Unassigned, [place] [facility] SLEEP STUDY DATA REPORT 2023-09-06 06:01:00 Doct or Unassigned, [place] [facility] SLEEP STUDY DATA REPORT 2023-09-06 06:01:00 Doct or Unassigned, [place] [facility] SLEEP LAB RESULTS 2023-09-06 06:01:00 Elly Blackburn [facility] CONSENT TO TREATMENT WITH PSYCHOACTIVE MEDICATION 2023-07-23 06:01:00 Doctor Unassigned, [place] [facility] CONSENT TO TREATMENT WITH PSYCHOACTIVE MEDICATION 2023-07-23 06:01:00 Doctor Unassigned, [place] [facility] [id number] Ultrasound, Soft Tissues Of Head And Neck (eg, Thyroid, Parathyroid, Parotid), Real Time With Image Documentation 2023-05-03 00:00:00 Georgi Delaney ASSIGNMENT OF BENEFITS 2023-04-21 01:50:01 Docto r Unassigned, [place] [facility] ASSIGNMENT OF BENEFITS 2023-04-21 01:50:01 Docto r Unassigned, [place] [facility] CONSENT/REFUSAL FOR DIAGNOSIS AND TREATMENT 2023-04-21 00:06:49 Doctor Unassigned, [place] [facility] CONSENT/REFUSAL FOR DIAGNOSIS AND TREATMENT 2023-04-21 00:06:49 Doctor Unassigned, [place] [facility] EMERGENCY SERVICES AGREEMENTS AND AUTHORIZATIONS 2023-04-20 05:01:00 Doctor Unassigned, [place] [facility] BI ULTRASOUND BREAST LIMITED BILATERAL 2023-04-13 15:56:28 Requisition, Paper [facility] BI ULTRASOUND BREAST LIMITED BILATERAL 2023-04-13 15:56:28 Requisition, Paper [facility] BI DIAGNOSTIC TOMOSYNTHESIS BILATERAL 2023-04-13 15:07:30 Requisition, Paper [facility] BI DIAGNOSTIC TOMOSYNTHESIS BILATERAL 2023-04-13 15:07:30 Requisition, Paper [facility] US UPPER ARM LEFT 2023-04-13 14:19:39 Requisition, Pap er [facility] US UPPER ARM LEFT 2023-04-13 14:19:39 Requisition, Pap er [facility] EXTERNAL PROVIDER RECORDS 2023-03-21 05:01:00 Do ctor Unassigned, [place] [facility] CT HEAD WO CONTRAST 2023-02-26 19:38:43 Afia Beaulieu [facility] CT HEAD WO CONTRAST 2023-02-26 19:38:43 Afia Beaulieu [facility] ASSIGNMENT OF BENEFITS 2023-02-26 19:05:35 Docto r Unassigned, [place] [facility] CONSENT/REFUSAL FOR DIAGNOSIS AND TREATMENT 2023-02-26 19:04:46 Doctor Unassigned, [place] [facility] CONSENT/REFUSAL FOR DIAGNOSIS AND TREATMENT 2023-02-26 19:04:46 Doctor Unassigned, [place] [facility] PATIENT QUESTIONNAIRE 2023-02-26 05:01:00 Doctor Unassigned, [place] [facility] PSYCHIATRY CLINIC PATIENT INFORMATION 2023-02-22 05:01:00 Doctor Unassigned, [place] [facility] PATIENT FINANCIAL POLICY 2023-02-16 21:04:53 Doctor Unassigned, [place] [facility] ASSIGNMENT OF BENEFITS 2023-02-16 21:04:02 Docto r Unassigned, [place] [facility] CONSENT/REFUSAL FOR DIAGNOSIS AND TREATMENT 2023-02-16 21:03:03 Doctor Unassigned, [place] [facility] CONSENT/REFUSAL FOR DIAGNOSIS AND TREATMENT 2023-02-16 21:03:03 Doctor Unassigned, [place] [facility] REFERRAL- REQUEST/RESPONSE 2023-01-23 05:01:00 Doctor Unassigned, [place] [facility] REFERRAL- REQUEST/RESPONSE 2023-01-23 05:01:00 Doctor Unassigned, [place] [facility] REFERRAL- REQUEST/RESPONSE 2023-01-03 05:01:00 Doctor Unassigned, [place] [facility] REFERRAL- REQUEST/RESPONSE 2023-01-03 05:01:00 Doctor Unassigned, [place] [facility] TROPONIN I 2021-07-27 20:28:00 Yamil Messina [facility] D-DIMER 2021-07-27 20:27:00 Yamil Messina [facility] XR CHEST 1 VW 2021-07-27 19:38:35 Yamil Messina [facility] POCT TEST 2021-07-27 18:28:00 Yamil Messina [facility] URINALYSIS 2021-07-27 18:26:00 Yamil Messina [facility] MAGNESIUM 2021-07-27 18:06:00 Yamil Messina [facility] TROPONIN I 2021-07-27 18:06:00 Yamil Messina [facility] COMP. METABOLIC PANEL (09722) 2021-07-27 18:06:00 Yamil Messina [facility] CBC WITH DIFF 2021-07-27 18:06:00 Yamil Messina [facility] CT HEAD WO CONTRAST 2021-06-25 05:12:41 Yoon Page [facility] NOTICE OF PRIVACY PRACTICES 2021-06-25 04:02:52 Doctor Unassigned, [place] [facility] CONSENT/REFUSAL FOR DIAGNOSIS AND TREATMENT 2021-06-25 04:01:22 Doctor Unassigned, [place] [facility] DISCLOSURE AND CONSENT, MEDICAL AND SURGICAL PROCEDURES 2021-01-06 05:01:00 Doctor Unassigned, [place] [facility] POCT TEST 2021-01-05 19:26:00 Magy Villanueva [facility] POCT TEST 2020-12-07 20:47:00 Fern Moctezuma [facility] ASSIGNMENT OF BENEFITS 2020-12-07 19:26:29 Docto r Unassigned, [place] [facility] Plan of Care Planned Activity Planned Date Details Comments Source Goal Plan of Care Note [code = 39934-8] Goal Plan of Care Note [code = 49850-1] Goal Plan of Care Note [code = 36263-3] Goal Plan of Care Note [code = 75987-8] Goal Plan of Care Note [code = 96774-8] Goal Plan of Care Note [code = 95524-6] Goal Plan of Care Note [code = 82788-4] Goal Plan of Care Note [code = 60412-8] Goal Plan of Care Note [code = 93400-3] Goal Plan of Care Note [code = 04143-3] Goal Plan of Care Note [code = 68952-0] Goal Plan of Care Note [code = 66961-9] Goal Plan of Care Note [code = 71420-4] Goal Plan of Care Note [code = 80341-4] Goal Plan of Care Note [code = 93820-2] Goal Plan of Care Note [code = 26760-3] Goal Plan of Care Note [code = 38195-9] Goal Plan of Care Note [code = 63497-7] Goal Plan of Care Note [code = 54505-0] Goal Plan of Care Note [code = 24479-3] Goal Plan of Care Note [code = 36608-1] Goal Plan of Care Note [code = 71734-8] Goal Plan of Care Note [code = 57823-1] Goal Plan of Care Note [code = 76943-7] Goal Plan of Care Note [code = 40130-5] Goal Plan of Care Note [code = 08993-0] Goal Plan of Care Note [code = 39751-3] Goal Plan of Care Note [code = 85362-8] Goal Plan of Care Note [code = 62476-4] Goal Plan of Care Note [code = 04041-6] Goal Plan of Care Note [code = 71303-4] Goal Plan of Care Note [code = 80793-7] Goal Plan of Care Note [code = 51659-0] Goal Plan of Care Note [code = 10873-7] Goal Plan of Care Note [code = 61997-6] Goal Plan of Care Note [code = 87713-8] Goal Plan of Care Note [code = 92276-2] Goal Plan of Care Note [code = 04858-4] Goal Plan of Care Note [code = 14362-3] Goal Plan of Care Note [code = 10667-8] Goal Plan of Care Note [code = 88978-8] Goal Plan of Care Note [code = 13303-9] Goal Plan of Care Note [code = 16041-2] Goal Plan of Care Note [code = 75822-6] Goal Plan of Care Note [code = 85216-8] Goal Plan of Care Note [code = 12357-0] Goal Plan of Care Note [code = 04271-4] Goal Plan of Care Note [code = 58389-9] Goal Plan of Care Note [code = 53486-2] Goal Plan of Care Note [code = 27775-8] Goal Plan of Care Note [code = 53494-4] Goal Plan of Care Note [code = 70341-4] Goal Plan of Care Note [code = 31604-8] Goal Plan of Care Note [code = 25426-2] Goal Plan of Care Note [code = 55983-7] Goal Plan of Care Note [code = 15271-0] Goal Plan of Care Note [code = 37251-1] Goal Plan of Care Note [code = 56483-7] Goal Plan of Care Note [code = 06083-2] Goal Plan of Care Note [code = 55690-0] Goal Plan of Care Note [code = 54189-8] Goal Plan of Care Note [code = 07282-8] Goal Plan of Care Note [code = 32650-2] Goal Plan of Care Note [code = 69332-5] Goal Plan of Care Note [code = 17480-6] Goal Plan of Care Note [code = 78264-6] Goal Plan of Care Note [code = 65261-2] Goal Plan of Care Note [code = 16057-9] Goal Plan of Care Note [code = 69549-9] Goal Plan of Care Note [code = 07449-2] Goal Plan of Care Note [code = 00082-2] Goal Plan of Care Note [code = 41650-1] Goal Plan of Care Note [code = 04616-0] Goal Plan of Care Note [code = 98975-6] Goal Plan of Care Note [code = 92664-7] Goal Plan of Care Note [code = 00215-5] Goal Plan of Care Note [code = 30373-6] Goal Plan of Care Note [code = 02741-9] Goal Plan of Care Note [code = 06314-3] Goal Plan of Care Note [code = 71780-6] Goal Plan of Care Note [code = 26211-9] Goal Plan of Care Note [code = 04577-5] Goal Plan of Care Note [code = 07475-6] Goal Plan of Care Note [code = 83076-2] Goal Plan of Care Note [code = 42562-3] Goal Plan of Care Note [code = 29586-0] Goal Plan of Care Note [code = 01298-5] Goal Plan of Care Note [code = 32729-5] Goal Plan of Care Note [code = 77082-5] Goal Plan of Care Note [code = 09772-1] Goal Plan of Care Note [code = 45312-2] Goal Plan of Care Note [code = 71245-2] Goal Plan of Care Note [code = 43477-7] Goal Plan of Care Note [code = 18195-8] Goal Plan of Care Note [code = 05565-8] Goal Plan of Care Note [code = 07428-4] Goal Plan of Care Note [code = 41497-8] Goal Plan of Care Note [code = 85711-9] Goal Plan of Care Note [code = 83106-3] Goal Plan of Care Note [code = 70893-9] Goal Plan of Care Note [code = 84407-3] Goal Plan of Care Note [code = 35163-3] Goal Plan of Care Note [code = 69722-5] Goal Plan of Care Note [code = 79266-4] Goal Plan of Care Note [code = 67762-8] Goal Plan of Care Note [code = 75629-3] Goal Plan of Care Note [code = 36093-8] Goal Plan of Care Note [code = 46860-8] Goal Plan of Care Note [code = 17209-6] Goal Plan of Care Note [code = 58114-3] Goal Plan of Care Note [code = 75315-8] Goal Plan of Care Note [code = 06624-0] Goal Plan of Care Note [code = 99775-0] Goal Plan of Care Note [code = 06687-0] Goal Plan of Care Note [code = 51085-1] Goal Plan of Care Note [code = 04904-8] Goal Plan of Care Note [code = 99187-4] Goal Plan of Care Note [code = 88819-3] Goal Plan of Care Note [code = 01728-0] Goal Plan of Care Note [code = 61873-3] Goal Plan of Care Note [code = 99286-5] Goal Plan of Care Note [code = 82377-3] Goal Plan of Care Note [code = 28381-1] Goal Plan of Care Note [code = 62433-2] Goal Plan of Care Note [code = 47214-7] Goal Plan of Care Note [code = 94738-7] Goal Plan of Care Note [code = 48146-3] Goal Plan of Care Note [code = 83388-2] Goal Plan of Care Note [code = 12858-0] Goal Plan of Care Note [code = 84978-1] Goal Plan of Care Note [code = 23328-2] Goal Plan of Care Note [code = 86840-1] Goal Plan of Care Note [code = 45749-2] Goal Plan of Care Note [code = 47695-8] Goal Plan of Care Note [code = 18793-1] Goal Plan of Care Note [code = 19301-3] Goal Plan of Care Note [code = 87599-9] Goal Plan of Care Note [code = 28846-3] Goal Plan of Care Note [code = 73812-0] Goal Plan of Care Note [code = 70524-9] Goal Plan of Care Note [code = 89628-0] Goal Plan of Care Note [code = 94405-1] Goal Plan of Care Note [code = 02047-8] Goal Plan of Care Note [code = 69165-0] Goal Plan of Care Note [code = 73626-8] Goal Plan of Care Note [code = 32694-2] Goal Plan of Care Note [code = 65371-7] Goal Plan of Care Note [code = 00982-5] Goal Plan of Care Note [code = 10583-1] Goal Plan of Care Note [code = 27008-7] Goal Plan of Care Note [code = 14493-6] Goal Plan of Care Note [code = 43016-5] Goal Plan of Care Note [code = 12397-3] Goal Plan of Care Note [code = 74438-2] Goal Plan of Care Note [code = 16380-6] Goal Plan of Care Note [code = 72864-4] Goal Plan of Care Note [code = 19611-6] Encounters Start Date/Time End Date/Time Encounter Type Admission Type Attending [facility] Care Department Encounter ID Source 2025-01-21 13:00:00 2025-01-21 13:00:00 Outpatient FAUSTINO CORTEZ [id number] Rolanda Vogel 2024-10-06 14:45:00 2024-10-06 14:45:00 Outpatient SABRINA WINTER [id number] Rolanda Vogel 2024-09-18 11:00:00 2024-09-18 11:00:00 Outpatient AFIA MELVIN [facility] [id number] [facility] 2024-09-16 13:30:00 2024-09-16 13:30:00 Outpatient DAVIDRichelle JUAN OSMAN [id number] Rolanda sundar 2024-08-22 08:00:00 2024-08-22 08:00:00 Outpatient NABEEL MEDINA ROLANDA OSMAN [id number] Rolanda ybsundar 2024-08-12 10:30:00 2024-08-12 10:30:00 Outpatient DAVIDRichelle JUAN OSMAN [id number] [facility] 2024-08-08 14:00:00 2024-08-08 14:00:00 Outpatient JASMIN JUAN OSMAN [id number] [facility] 2024-07-28 00:00:00 2024-07-28 00:00:00 Outpatient JUAN CASTELLANOS [id number] [facility] 2024-07-14 14:00:00 2024-07-14 14:00:00 Outpatient SABRINA WINTER [id number] [facility] 2024-07-14 00:00:00 2024-07-14 00:00:00 Outpatient JUAN CASTELLANOS [id number] [facility] 2024-07-11 00:00:00 2024-07-11 00:00:00 Outpatient MD ROLANDA BEE [id number] [facility] 2024-07-10 00:00:00 2024-07-10 00:00:00 Outpatient ENDER FIGUEROA [id number] [facility] 2024-07-08 00:00:00 2024-07-08 00:00:00 Outpatient JUAN CASTELLANOS [id number] [facility] 2024-06-27 00:00:00 2024-06-27 00:00:00 Outpatient JUAN CASTELLANOS [id number] Rolanda Seybold 2024-06-26 15:00:00 2024-06-26 15:00:00 Outpatient JUAN CASTELLANOS [id number] [facility] 2024-06-25 06:49:00 2024-06-25 06:49:00 Outpatient BAY AkersGarcia Cesar [facility] [id number] [facility] 2024-06-22 10:15:00 2024-06-22 10:15:00 Outpatient ANNE-MARIE VENTURA ROLANDA OSMAN [id number] [facility] 2024-06-22 00:00:00 2024-06-22 00:00:00 Outpatient KAMILAH GARCIA ROLANDA OSMAN [id number] [facility] 2024-06-18 00:00:00 2024-06-18 00:00:00 Outpatient YISEL ASTORGA [id number] [facility] 2024-06-14 00:00:00 2024-06-14 00:00:00 Outpatient ROMAIN ZIYAD ROLANDA OSMAN [id number] [facility] 2024-06-10 14:15:00 2024-06-10 14:15:00 Outpatient YISEL ASTORGA [id number] [facility] 2024-06-10 14:05:00 2024-06-10 14:05:00 Outpatient ROLANDA OSMAN [id number] [facility] 2024-06-10 10:25:00 2024-06-10 10:25:00 Outpatient LABBen ROLANDA OSMAN [id number] [facility] 2024-06-09 14:15:00 2024-06-09 14:15:00 Outpatient SABRINA WINTER [id number] [facility] 2024-06-06 00:00:00 2024-06-06 00:00:00 Outpatient JUAN CASTELLANOS [id number] [facility]-06 00:00:00 2024-06-06 00:00:00 Outpatient JUAN CASTELLANOS [id number] [facility] 2024-05-30 00:00:00 2024-05-30 00:00:00 Outpatient GARCIA, CESAR ROLANDA OSMAN [id number] [facility] 2024-05-28 00:00:00 2024-05-28 00:00:00 Outpatient ROLANDA ROLANDA [id number] Rolanda Howellybsundar 2024-05-27 15:45:00 2024-05-27 15:45:00 Outpatient LAB90 ROLANDA OSMAN [id number] Rolanda [facility] 2024-05-27 15:00:00 2024-05-27 15:00:00 Outpatient JUAN CASTELLANOS ROLANDA OSMAN [id number] [facility] 2024-05-27 00:00:00 2024-05-27 00:00:00 Outpatient LIBERTAD LEE ROLANDA OSMAN [id number] Rolanda Seybsundar 2024-05-14 11:00:00 2024-05-14 11:00:00 Outpatient JUAN CASTELLANOS ROLANDA OSMAN [id number] [facility] 2024-05-12 11:00:00 2024-05-12 11:00:00 Outpatient DAVIDRichelle JUAN ROLANDA OSMAN [id number] [facility] 2024-04-28 00:00:00 2024-04-28 00:00:00 Outpatient ROLANDA OSMAN [id number] Rolanda Seybsundar 2024-04-23 14:25:00 2024-04-23 14:25:00 Outpatient ROLANDA OSMAN [id number] [facility] 2024-04-23 14:20:00 2024-04-23 14:20:00 Outpatient ROLANDA OSMAN [id number] [facility] 2024-04-23 00:00:00 2024-04-23 00:00:00 Outpatient GEORGI WILBURN [id number] [facility] 2024-04-23 00:00:00 2024-04-23 00:00:00 Outpatient GEORGI WILBURN [id number] Rolanda Seybold 2024-04-18 00:00:00 2024-04-18 00:00:00 Outpatient JASMIN JUAN OSMAN [id number] Rolanda Seybold 2024-04-17 17:20:00 2024-04-17 17:20:00 Outpatient ROLANDA OSMAN [id number] Rolanda Seybold 2024-04-17 17:15:2024-04-17 17:15:00 Outpatient ROLANDA ROLANDA [id number] [facility] 2024-04-17 14:00:00 2024-04-17 14:00:00 Outpatient COSMO, GEORGI HEBERTTERRENCE OSMAN [id number] [facility] 2024-04-17 13:45:00 2024-04-17 13:45:00 Outpatient ROLANDA ROLANDA [id number] [facility] 2024-04-17 00:00:00 2024-04-17 00:00:00 Outpatient COSMO, GEORGI HEBERTTERRENCE OSMAN [id number] [facility] 2024-04-17 00:00:00 2024-04-17 00:00:00 Outpatient COSMO, GEORGI ROLANDA OSMAN [id number] [facility] 2024-04-15 00:00:00 2024-04-15 00:00:00 Outpatient COSMO, GEORGI ROLANDA OSMAN [id number] [facility] 2024-03-12 00:00:00 2024-04-12 18:19:33 Patient Secure Msg Doctor Unassigned, [place] Doctor Unassigned, [place] [facility] 1.2.840.114 350.1.13.10 4.2.7.2.686 [id number] [facility] 2024-04-08 10:35:00 2024-04-08 10:35:00 Outpatient LAB90 ROLANDA OSMAN [id number] [facility] 2024-04-03 15:00:00 2024-04-03 15:00:00 Outpatient JUAN CASTELLANOS [id number] [facility] 2024-03-20 00:00:00 2024-03-20 00:00:00 Outpatient JUAN CASTELLANOS [id number] [facility] 2024-03-04 14:30:00 2024-03-04 14:30:00 Outpatient JUAN CASTELLANOS [id number] [facility] 2024-02-21 00:00:00 2024-02-21 00:00:00 Outpatient JUAN CASTELLANOS [id number] [facility] 2024-02-16 00:00:00 2024-02-16 00:00:00 Outpatient TAMMY MCDOWELL [id number] [facility] 2024-02-14 00:00:00 2024-02-14 00:00:00 Outpatient RIGO KATHLEEN ROLANDA [id number] [facility] 2024-02-11 00:00:00 2024-02-11 00:00:00 Outpatient JUAN CASTELLANOS [id number] [facility] 2024-02-05 16:05:00 2024-02-05 16:05:00 Outpatient LABBen OSMAN [id number] [facility] 2024-02-05 16:00:00 2024-02-05 16:00:00 Outpatient LAB90 ROLANDA ROLANDA [id number] [facility] 2024-02-05 15:00:00 2024-02-05 15:00:00 Outpatient JUAN CASTELLANOS [id number] [facility] 2024-02-04 14:30:00 2024-02-04 14:30:00 Outpatient JUAN CASTELLANOS [id number] [facility] 2024-01-28 00:00:00 2024-01-29 09:42:23 Telephone Afia Beaulieu 1.840.1 03348.1.1 3.104.2.7 .3.960359 .8 [id number] [facility] 2024-01-29 00:00:00 2024-01-29 09:40:54 Letter (Out) Afia Beaulieu 1.840.1 66310.1.1 3.104.2.7 .3.393666 .8 [id number] [facility] 2024-01-01 00:00:00 2024-01-17 14:15:43 Patient Secure Msg Doctor Unassigned, [place] .840.1 61538.1.1 3.104.2.7 .3.309686 .8 [id number] [facility] 2024-01-09 14:32:27 2024-01-09 14:32:27 Outpatient SFA SFA [id number] Georgi Delaney 2024-01-08 14:19:45 2024-01-08 14:19:[address] [facility] [id number] Georgi Delaney 2024-01-08 00:00:00 2024-01-08 00:00:00 Outpatient Visit SFA [id number] Georgi Johnson Rhett 2024-01-04 08:04:20 2024-01-04 08:04:[address] [facility] 24 Georgi Johnson [place] 2024-01-03 18:51:13 2024-01-03 18:51:[address] [facility] [id number] Georgi Johnson Rhett 2023-12-31 00:00:00 2024-01-03 16:33:02 Telephone Dorothy Phillips 1.2.840.1 64622.1.1 3.104.2.7 .3.967263 .8 [id number] [facility] 2024-01-03 00:00:00 2024-01-03 00:00:00 Outpatient R DOROTHY PHILLIPS [facility] [id number] [facility] 2023-12-31 00:00:00 2024-01-02 12:35:07 Telephone Elly Blackburn 1.2.840.1 06268.1.1 3.104.2.7 .3.819946 .8 [id number] [facility] 2024-01-02 09:30:00 2024-01-02 10:23:19 Outpatient SHARRI LOWE KIMBERLY [facility] [id number] [facility] 2023-12-31 00:00:00 2023-12-31 11:16:36 Telephone Navneet Dang L 1.2.840.1 85005.1.1 3.104.2.7 .3.629959 .8 [id number] [facility] 2023-12-27 18:58:47 2023-12-27 18:58:[address] [facility] [id number] Georgi Delaney 2023-12-27 00:00:00 2023-12-27 00:00:[address] [facility] [id number] Georgi Delaney 2023-12-26 09:20:00 2023-12-26 09:52:16 Outpatient R DOROTHY PHILLIPS [facility] [id number] [facility] 2023-12-26 09:20:00 2023-12-26 09:52:16 Office Visit Dorothy Phillips 1.2.840.1 52797.1.1 3.104.2.7 .3.176686 .8 [id number] [facility] 2023-12-25 09:30:00 2023-12-25 10:04:53 Outpatient R AFIA BEAULIEU [facility] [id number] [facility] 2023-12-25 09:30:00 2023-12-25 10:04:53 Office Visit Afia Beaulieu 1.2.840.1 40974.1.1 3.104.2.7 .3.369070 .8 [id number] [facility] 2023-12-25 00:00:00 2023-12-25 00:00:00 Travel 1.2.840.1 75990.1.1 3.104.2.7 .3.435489 .8 1.2.840.114 350.1.13.10 4.2.7.3.698 084.8 [id number] [facility] 2023-12-21 15:12:41 2023-12-21 15:12:41 Outpatient SFA SFA [id number] Georgi Delaney 2023-12-21 00:00:00 2023-12-21 00:00:00 Outpatient Visit SFA [id number] Georgi Delaney 2023-12-19 11:33:43 2023-12-19 11:33:43 Outpatient SFA SFA [id number] Georgi Delaney 2023-12-19 09:30:00 2023-12-19 10:34:54 Outpatient SHARRI LOWE [facility] [id number] [facility] 2023-12-19 00:00:00 2023-12-19 00:00:00 Travel 1.2.840.1 94746.1.1 3.104.2.7 .3.946191 .8 1.2.840.114 350.1.13.10 4.2.7.3.698 084.8 [id number] [facility] 2023-12-12 11:53:06 2023-12-12 11:53:06 Outpatient SFA SFA [id number] Georgi Delaney 2023-11-06 00:00:00 2023-12-08 18:07:25 Patient Secure Msg Doctor Unassigned, [place] 1.2.840.1 71674.1.1 3.104.2.7 .3.075567 .8 [id number] [facility] 2023-12-07 10:52:07 2023-12-07 10:52:07 Outpatient SFA SFA [id number] Georgi Delaney 2023-12-06 18:52:45 2023-12-06 18:52:45 Outpatient SFA SFA [id number] Georgi Delaney 2023-12-05 11:22:26 2023-12-05 11:22:26 Outpatient SFA SFA [id number] eGorgi Delaney 2023-12-05 08:45:00 2023-12-05 10:00:37 Outpatient SHARRI LOWE [facility] [id number] [facility] 2023-12-05 00:00:00 2023-12-05 00:00:00 Travel 1.2.840.1 75451.1.1 3.104.2.7 .3.866106 .8 1.2.840.114 350.1.13.10 4.2.7.3.698 084.8 [id number] [facility] 2023-12-03 09:06:12 2023-12-03 09:06:12 Outpatient SFA SFA [id number] Georgi Delaney 2023-10-27 00:00:00 2023-12-01 18:09:02 Patient Secure Msg Doctor Unassigned, [place] 1.2.840.1 27429.1.1 3.104.2.7 .3.429418 .8 [id number] [facility] 2023-11-28 23:48:00 2023-11-29 00:50:00 Emergency X EMILY SINGH [facility] ERT [id number] [facility] 2023-11-28 23:48:00 2023-11-29 00:50:00 Emergency Emily Singh 1.2.840.1 43852.1.1 3.104.2.7 .3.974367 .8 [id number] [facility] 2023-11-28 11:24:29 2023-11-28 11:24:29 Outpatient SFA SFA [id number] Georgi Delaney 2023-11-28 00:00:00 2023-11-28 00:00:00 Travel 1.2.840.1 00164.1.1 3.104.2.7 .3.166574 .8 1.2.840.114 350.1.13.10 4.2.7.3.698 084.8 [id number] [facility] 2023-11-23 18:48:41 2023-11-23 18:48:41 Outpatient SFA SFA [id number] Georgi Delaney 2023-11-22 18:32:19 2023-11-22 18:32:[address] [facility] [id number] Georgi Delaney 2023-11-21 11:42:56 2023-11-21 11:42:56 Outpatient [facility] [id number] Georgi Delaney 2023-11-19 14:35:59 2023-11-19 14:35:59 Outpatient [facility] [id number] Georgi Delaney 2023-10-17 00:00:00 2023-11-17 18:05:01 Patient Secure Msg Doctor Unassigned, [place] 1.2.840.1 13437.1.1 3.104.2.7 .3.071945 .8 [id number] [facility] 2023-11-15 18:25:25 2023-11-15 18:25:25 Outpatient [facility] [id number] Georgi Delaney 2023-11-14 11:21:10 2023-11-14 11:21:10 Outpatient [facility] [id number] Georgi Delaney 2023-11-12 08:45:00 2023-11-12 09:29:31 Outpatient R ATILIO ANDREWS [facility] [id number] [facility] 2023-11-12 00:00:00 2023-11-12 00:00:00 Travel 1.2.840.1 06730.1.1 3.104.2.7 .3.899214 .8 1.2.840.114 350.1.13.10 4.2.7.3.698 084.8 [id number] [facility] 2023-11-08 18:20:12 2023-11-08 18:20:12 Outpatient [facility] [id number] Georgi Delaney 2023-11-07 12:59:12 2023-11-07 12:59:12 Outpatient [facility] [id number] Georgi Delaney 2023-11-07 00:00:00 2023-11-07 00:00:00 Orders Only Doctor Unassigned, [place] 1.2.840.1 52244.1.1 3.104.2.7 .3.200033 .8 [id number] [facility] 2023-11-06 10:18:34 2023-11-06 10:18:34 Outpatient [place] [id number] Georgi Delaney 2023-11-01 18:46:12 2023-11-01 18:46:12 Outpatient [facility] [id number] Georgi Delaney 2023-11-01 08:30:00 2023-11-01 09:11:45 Outpatient R AFIA BEAULIEU [facility] [id number] [facility] 2023-11-01 08:30:00 2023-11-01 09:11:45 Office Visit Lars Afia 1.2.840.1 34981.1.1 3.104.2.7 .3.083739 .8 [id number] [facility] 2023-10-31 12:52:35 2023-10-31 12:52:35 Outpatient [facility] [id number] Georgi Johnson [place] 2023-10-31 08:00:00 2023-10-31 09:01:39 Outpatient R OBI SHARIF [facility] [id number] [facility] 2023-10-31 00:00:00 2023-10-31 00:00:00 Travel 1.2.840.1 24604.1.1 3.104.2.7 .3.621663 .8 1.2.840.114 350.1.13.10 4.2.7.3.698 084.8 [id number] [facility] 2023-10-26 08:12:20 2023-10-26 08:12:20 Outpatient [facility] [id number] Georgi Delaney 2023-10-25 14:45:00 2023-10-25 23:59:00 Outpatient R RADIOLOGY [facility] [id number] [facility] 2023-10-25 14:45:00 2023-10-25 23:59:00 Hospital Encounter Radiology 1.2.840.1 95038.1.1 3.104.2.7 .3.138884 .8 [id number] [facility] 2023-10-25 17:25:44 2023-10-25 17:25:[address] [facility] [id number] Georgi Delaney 2023-10-25 13:45:00 2023-10-25 14:44:00 Hospital Encounter Radiology 1.2.840.1 31312.1.1 3.104.2.7 .3.146450 .8 [id number] [facility] 2023-10-25 00:00:00 2023-10-25 00:00:00 Travel 1.2.840.1 71245.1.1 3.104.2.7 .3.771190 .8 1.2.840.114 350.1.13.10 4.2.7.3.698 084.8 [id number] [facility] 2023-10-24 11:20:39 2023-10-24 11:20:[address] [facility] [id number] Georgi Delaney 2023-10-16 00:00:00 2023-10-23 10:33:52 Telephone Elly Blackburn 1.2.840.1 22664.1.1 3.104.2.7 .3.948400 .8 [id number] [facility] 2023-10-22 17:22:44 2023-10-22 17:22:[address] [facility] [id number] Georgi Delaney 2023-10-18 18:31:21 2023-10-18 18:31:[address] [facility] [id number] Georgi Delaney 2023-10-17 11:24:20 2023-10-17 11:24:[address] [facility] [id number] Georgi Delaney 2023-10-16 23:54:00 2023-10-17 01:45:00 Emergency X [facility]NIE ROCHA [facility] [id number] [facility] 2023-10-16 23:54:00 2023-10-17 01:45:00 Emergency Bonnei Rocha 1.2.840.1 22004.1.1 3.104.2.7 .3.295987 .8 [id number] [facility] 2023-10-16 00:00:00 2023-10-16 22:59:28 Nurse Triage Debbie Velasco Ivis 1.2.840.1 05832.1.1 3.104.2.7 .3.364548 .8 [id number] [facility] 2023-10-16 00:00:00 2023-10-16 00:00:00 Travel 1.2.840.1 80246.1.1 3.104.2.7 .3.350870 .8 1.2.840.114 350.1.13.10 4.2.7.3.698 084.8 [id number] [facility] 2023-10-15 08:45:00 2023-10-15 09:33:30 Outpatient R ATILIO ANDREWS [facility] [id number] [facility] 2023-10-15 00:00:00 2023-10-15 00:00:00 Travel 1.2.840.1 09149.1.1 3.104.2.7 .3.610803 .8 1.2.840.114 350.1.13.10 4.2.7.3.698 084.8 [id number] [facility] 2023-10-12 15:08:57 2023-10-12 15:08:57 Outpatient SFA SFA [id number] Georgi Johnson [place] 2023-10-11 18:19:30 2023-10-11 18:19:30 Outpatient SFA SFA [id number] Georgi Delaney 2023-10-10 10:04:00 2023-10-10 10:04:00 Outpatient SFA SFA [id number] Georgi Delaney 2023-10-09 00:00:00 2023-10-10 09:41:53 Telephone Elly Blackburn 1.2.840.1 04977.1.1 3.104.2.7 .3.508496 .8 [id number] [facility] 2023-10-09 00:00:00 2023-10-10 09:09:54 Telephone Elly Blackburn 1.2.840.1 73578.1.1 3.104.2.7 .3.786347 .8 [id number] [facility] 2023-10-09 09:00:00 2023-10-09 09:00:00 Outpatient R ELLY BLACKBURN [facility] [id number] [facility] 2023-10-04 18:49:09 2023-10-04 18:49:09 Outpatient [facility] [id number] Georgi Delaney 2023-10-03 11:19:32 2023-10-03 11:19:32 Outpatient [facility] [id number] Georgi Delaney 2023-10-03 00:00:00 2023-10-03 10:53:24 Telephone Navneet Dang 1.2.840.1 44536.1.1 3.104.2.7 .3.990955 .8 [id number] [facility] 2023-10-01 16:58:20 2023-10-01 16:58:20 Outpatient [facility] [id number] Georgi Delaney 2023-09-28 00:00:00 2023-10-01 11:55:24 Telephone Elly Blackburn 1.2.840.1 29419.1.1 3.104.2.7 .3.299416 .8 [id number] [facility] 2023-10-01 08:45:00 2023-10-01 09:36:52 Outpatient ATILIO KHANNA [facility] [id number] [facility] 2023-10-01 00:00:00 2023-10-01 00:00:00 Travel 1.2.840.1 54403.1.1 3.104.2.7 .3.944753 .8 1.2.840.114 350.1.13.10 4.2.7.3.698 084.8 [id number] [facility] 2023-09-27 18:56:58 2023-09-27 18:56:[address] [facility] [id number] Georgi Delaney 2023-09-27 00:00:00 2023-09-27 00:00:00 Travel 1.2.840.1 13534.1.1 3.104.2.7 .3.799909 .8 1.2.840.114 350.1.13.10 4.2.7.3.698 084.8 [id number] [facility] 2023-09-26 11:28:03 2023-09-26 11:28:03 Outpatient [facility] [id number] Georgi Delaney 2023-09-19 11:47:58 2023-09-19 11:47:[address] [facility] [id number] Georgi Delaney 2023-09-18 14:30:00 2023-09-18 15:13:10 Office Visit Afia Beaulieu 1.2.840.1 28173.1.1 3.104.2.7 .3.687366 .8 [id number] [facility] 2023-09-18 14:30:00 2023-09-18 15:13:10 Outpatient R AFIA BEAULIEU [facility] [id number] [facility] 2023-09-17 16:00:03 2023-09-17 16:00:[address] [facility] [id number] Georgi Delaney 2023-09-17 08:45:00 2023-09-17 09:30:29 Outpatient R ATILIO ANDREWS [facility] [id number] [facility] 2023-09-17 00:00:00 2023-09-17 00:00:00 Travel 1.2.840.1 41429.1.1 3.104.2.7 .3.670367 .8 1.2.840.114 350.1.13.10 4.2.7.3.698 084.8 [id number] [facility] 2023-09-14 00:00:00 2023-09-14 00:00:00 Travel 1.2.840.1 95727.1.1 3.104.2.7 .3.288346 .8 1.2.840.114 350.1.13.10 4.2.7.3.698 084.8 [id number] [facility] 2023-09-13 18:25:18 2023-09-13 18:25:18 Outpatient [facility] [place] [id number] Georgi Johnson [place] 2023-09-07 17:04:45 2023-09-07 17:04:45 Outpatient [facility] [id number] Georgi Johnson [place] 2023-09-06 18:58:45 2023-09-06 18:58:45 Outpatient [facility] [id number] Georgi Johnson [place] 2023-09-06 12:00:00 2023-09-06 12:15:00 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 Ion Rahman 1..840.1 47760.1.1 3.104.2.7 .3.366069 .8 [id number] [facility] 2023-09-06 12:00:00 2023-09-06 12:00:00 Outpatient R ION RAHMAN STRAHIL [facility] [id number] [facility] 2023-09-06 00:00:00 2023-09-06 00:00:00 Orders Only Doctor Unassigned, [place] 1.2.840.1 81441.1.1 3.104.2.7 .3.880965 .8 [id number] [facility] 2023-09-06 00:00:00 2023-09-06 00:00:00 Travel 1.2.840.1 19517.1.1 3.104.2.7 .3.754217 .8 1.2.840.114 350.1.13.10 4.2.7.3.698 084.8 [id number] [facility] 2023-09-05 11:23:13 2023-09-05 11:23:[address] [facility] [id number] Georgi Delaney 2023-09-03 16:53:51 2023-09-03 16:53:[address] [facility] 22 Georgi Delaney 2023-09-03 08:45:00 2023-09-03 09:29:48 Outpatient R ATILIO ANDREWS [facility] [id number] [facility] 2023-09-03 00:00:00 2023-09-03 00:00:00 Travel 1.2.840.1 60386.1.1 3.104.2.7 .3.682150 .8 1.2.840.114 350.1.13.10 4.2.7.3.698 084.8 [id number] [facility] 2023-08-31 00:00:00 2023-08-31 00:00:00 Travel 1.2.840.1 83271.1.1 3.104.2.7 .3.957704 .8 1.2.840.114 350.1.13.10 4.2.7.3.698 084.8 [id number] [facility] 2023-08-30 18:59:50 2023-08-30 18:59:[address] [facility] [id number] Georgi Delaney 2023-08-29 11:54:24 2023-08-29 11:54:[address] [facility] [id number] Georgi Delaney 2023-08-28 11:00:00 2023-08-28 11:45:13 Outpatient R ELLY BLACKBURN [facility] [id number] [facility] 2023-08-28 11:00:00 2023-08-28 11:45:13 Office Visit Elly Blackburn 1.2.840.1 05495.1.1 3.104.2.7 .3.833084 .8 [id number] [facility] 2023-08-28 00:00:00 2023-08-28 00:00:00 Travel 1.2.840.1 83494.1.1 3.104.2.7 .3.325810 .8 1.2.840.114 350.1.13.10 4.2.7.3.698 084.8 [id number] [facility] 2023-08-22 11:25:11 2023-08-22 11:25:11 Outpatient SFA [facility] [id number] Georgi Delaney 2023-08-22 08:00:00 2023-08-22 08:00:00 Outpatient R [facility] [id number] [facility] 2023-08-16 18:23:26 2023-08-16 18:23:26 Outpatient SFA [facility] [id number] Georgi Delaney 2023-08-15 12:35:53 2023-08-15 12:35:53 Outpatient SFA SFA [id number] Georgi Delaney 2023-08-09 18:21:08 2023-08-09 18:21:08 Outpatient SFA SFA [id number] Georgi Delaney 2023-08-08 17:08:47 2023-08-08 17:08:47 Outpatient SFA SFA [id number] Georgi Delaney 2023-08-02 18:23:13 2023-08-02 18:23:13 Outpatient SFA SFA [id number] Georgi Delaney 2023-07-31 09:40:50 2023-07-31 09:40:50 Outpatient SFA SFA [id number] Georgi Delaney 2023-07-30 09:30:00 2023-07-30 10:00:26 Outpatient R ISELA FERREIRA [facility] [id number] [facility] 2023-07-30 00:00:00 2023-07-30 00:00:00 Travel 1.2.840.1 38964.1.1 3.104.2.7 .3.419121 .8 1.2.840.114 350.1.13.10 4.2.7.3.698 084.8 [id number] [facility] 2023-07-26 10:40:34 2023-07-26 10:40:34 Outpatient [facility] [id number] Georgi Delaney 2023-07-23 08:45:00 2023-07-23 10:33:12 Outpatient R CHANEL JACOME [facility] [id number] [facility] 2023-07-23 00:00:00 2023-07-23 00:00:00 Travel 1.2.840.1 49630.1.1 3.104.2.7 .3.941706 .8 1.2.840.114 350.1.13.10 4.2.7.3.698 084.8 [id number] [facility] 2023-07-23 00:00:00 2023-07-23 00:00:00 Orders Only Doctor Unassigned, [place] 1.2.840.1 81561.1.1 3.104.2.7 .3.591874 .8 [id number] [facility] 2023-07-20 00:00:00 2023-07-20 00:00:00 Travel 1.2.840.1 88840.1.1 3.104.2.7 .3.293239 .8 1.2.840.114 350.1.13.10 4.2.7.3.698 084.8 [id number] [facility] 2023-07-19 18:54:32 2023-07-19 18:54:32 Outpatient [facility] [id number] Georgi Delaney 2023-07-19 00:00:00 2023-07-19 00:00:00 Patient Secure Msg Doctor Unassigned, [place] 1.2.840.1 10700.1.1 3.104.2.7 .3.597531 .8 [id number] [facility] 2023-07-18 08:00:00 2023-07-18 09:04:35 Outpatient SHARRI LOWE KIMBERLY [facility] [id number] [facility] 2023-07-18 00:00:00 2023-07-18 00:00:00 Travel 1.2.840.1 92698.1.1 3.104.2.7 .3.311103 .8 1.2.840.114 350.1.13.10 4.2.7.3.698 084.8 [id number] [facility] 2023-07-17 17:38:54 2023-07-17 17:38:[address] [facility] [id number] Georgi Delaney 2023-07-16 17:57:32 2023-07-16 17:57:32 Outpatient SFA [facility] [id number] Georgi Delaney 2023-07-16 00:00:00 2023-07-16 00:00:00 Travel 1.2.840.1 19399.1.1 3.104.2.7 .3.701493 .8 1.2.840.114 350.1.13.10 4.2.7.3.698 084.8 [id number] [facility] 2023-07-12 18:22:31 2023-07-12 18:22:31 Outpatient SFA SFA [id number] Georgi Delaney 2023-07-12 00:00:00 2023-07-12 00:00:00 Telephone Navneet Dang 1.2.840.1 96106.1.1 3.104.2.7 .3.262831 .8 [id number] [facility] 2023-07-11 00:00:00 2023-07-11 00:00:00 Telephone Afia Beaulieu 1.2.840.1 63378.1.1 3.104.2.7 .3.285988 .8 [id number] [facility] 2023-07-10 12:48:46 2023-07-10 12:48:46 Outpatient SFA [facility] [id number] Georgi Delaney 2023-07-04 08:45:00 2023-07-04 08:45:00 Outpatient R CHANEL JACOME [facility] [id number] [facility] 2023-07-04 00:00:00 2023-07-04 00:00:00 Travel 1.2.840.1 16951.1.1 3.104.2.7 .3.816780 .8 1.2.840.114 350.1.13.10 4.2.7.3.698 084.8 [id number] [facility] 2023-06-28 17:20:13 2023-06-28 17:20:13 Outpatient SFA [facility] [id number] Georgi Delaney 2023-06-26 17:09:38 2023-06-26 17:09:38 Outpatient SFA [facility] [id number] Georgi Delaney 2023-06-25 14:22:23 2023-06-25 14:22:23 Outpatient SFA SFA [id number] Georgi Delaney 2023-06-22 14:53:38 2023-06-22 14:53:38 Outpatient SFA SFA [id number] Georgi Delaney 2023-06-20 08:45:00 2023-06-20 09:49:50 Outpatient R CHANEL JACOME [facility] [id number] [facility] 2023-06-19 00:00:00 2023-06-19 00:00:00 Travel 1.2.840.1 65691.1.1 3.104.2.7 .3.747998 .8 1.2.840.114 350.1.13.10 4.2.7.3.698 084.8 [id number] [facility] 2023-06-18 17:35:48 2023-06-18 17:35:48 Outpatient SFA SFA [id number] Georgi Delaney 2023-06-14 18:57:51 2023-06-14 18:57:51 Outpatient SFA SFA [id number] Georgi Delaney 2023-06-12 12:20:21 2023-06-12 12:20:21 Outpatient SFA SFA [id number] Georgi Delaney 2023-06-12 00:00:00 2023-06-12 00:00:00 Patient Secure Msg Doctor Unassigned, [place] 1.2.840.1 21147.1.1 3.104.2.7 .3.366542 .8 [id number] [facility] 2023-06-07 18:30:14 2023-06-07 18:30:14 Outpatient SFA SFA [id number] Georgi Delaney 2023-06-06 12:03:13 2023-06-06 12:03:13 Outpatient SFA SFA [id number] Georgi Delaney 2023-06-06 08:45:00 2023-06-06 09:45:02 Outpatient CHANEL HAYES [facility] [id number] [facility] 2023-06-05 11:42:00 2023-06-05 11:42:00 Outpatient SFA SFA [id number] Georgi Delaney 2023-06-05 00:00:00 2023-06-05 00:00:00 Travel 1.2.840.1 30886.1.1 3.104.2.7 .3.307708 .8 1.2.840.114 350.1.13.10 4.2.7.3.698 084.8 [id number] [facility] 2023-05-30 17:31:37 2023-05-30 17:31:37 Outpatient SFA SFA [id number] Georgi Delaney 2023-05-30 00:00:00 2023-05-30 00:00:00 Telephone Curly Beaulieussica 1.2.840.1 84958.1.1 3.104.2.7 .3.280954 .8 [id number] [facility] 2023-05-29 11:50:55 2023-05-29 11:50:55 Outpatient SFA SFA 17 Georgi Delaney 2023-05-24 18:32:38 2023-05-24 18:32:38 Outpatient SFA SFA [id number] Georgi Delaney 2023-05-24 08:30:00 2023-05-24 08:53:04 Outpatient R AFIA BEAULIEU [facility] [id number] [facility] 2023-05-24 08:30:00 2023-05-24 08:53:04 Office Visit Afia Beaulieu 1.2.840.1 03125.1.1 3.104.2.7 .3.484332 .8 [id number] [facility] 2023-05-24 00:00:00 2023-05-24 00:00:00 Travel 1.2.840.1 20631.1.1 3.104.2.7 .3.509018 .8 1.2.840.114 350.1.13.10 4.2.7.3.698 084.8 [id number] [facility] 2023-05-23 16:37:51 2023-05-23 16:37:51 Outpatient SFA SFA [id number] Georgi Delaney 2023-05-22 11:25:17 2023-05-22 11:25:17 Outpatient SFA SFA [id number] Georgi Delaney 2023-05-18 00:00:00 2023-05-18 00:00:00 Nurse Triage Jens Carranza, Sharri Canseco 1.2.840.1 76499.1.1 3.104.2.7 .3.613593 .8 [id number] [facility] 2023-05-17 18:32:35 2023-05-17 18:32:35 Outpatient SFA SFA [id number] Georgi Delaney 2023-05-15 17:38:26 2023-05-15 17:38:26 Outpatient SFA SFA [id number] Georgi Delaney 2023-05-10 18:53:57 2023-05-10 18:53:57 Outpatient SFA SFA [id number] Georgi Delaney 2023-05-09 08:45:00 2023-05-09 10:11:14 Outpatient Katheryn OKEEFEWESLEYSHARRISHARRI [facility] [id number] [facility] 2023-05-09 00:00:00 2023-05-09 00:00:00 Travel 1.2.840.1 53229.1.1 3.104.2.7 .3.282328 .8 1.2.840.114 350.1.13.10 4.2.7.3.698 084.8 [id number] [facility] 2023-05-08 11:49:40 2023-05-08 11:49:40 Outpatient SFA SFA [id number] Georgi Delaney 2023-05-04 12:44:08 2023-05-04 12:44:08 Outpatient SFA SFA [id number] Georgi Johnson Rhett 2023-05-03 18:32:26 2023-05-03 18:32:26 Outpatient SFA SFA [id number] Georgi Delaney 2023-05-01 11:35:50 2023-05-01 11:35:50 Outpatient SFA SFA [id number] Georgi Johnson Rhett 2023-04-26 18:54:59 2023-04-26 18:54:59 Outpatient SFA SFA [id number] Georgi Johnson Rhett 2023-04-25 08:45:00 2023-04-25 10:13:07 Outpatient R NAA CHANEL [facility] [id number] [facility] 2023-04-25 00:00:00 2023-04-25 00:00:00 Travel 1.2.840.1 44548.1.1 3.104.2.7 .3.648243 .8 1.2.840.114 350.1.13.10 4.2.7.3.698 084.8 [id number] [facility] 2023-04-24 11:26:23 2023-04-24 11:26:23 Outpatient SFA SFA [id number] Georgi Delaney 2023-04-20 19:36:00 2023-04-20 23:55:00 Emergency X GEORGETTE JEFFREY [facility] ERT [id number] [facility] 2023-04-20 19:36:00 2023-04-20 23:55:00 Emergency Georgette Jeffrey S 1.2.840.1 99707.1.1 3.104.2.7 .3.707702 .8 [id number] [facility] 2023-04-20 00:00:00 2023-04-20 00:00:00 Nurse Triage Nhi ritchie Mildred G 1.2.840.1 97613.1.1 3.104.2.7 .3.785122 .8 [id number] [facility] 2023-04-20 00:00:00 2023-04-20 00:00:00 Travel 1.2.840.1 39275.1.1 3.104.2.7 .3.331505 .8 1.2.840.114 350.1.13.10 4.2.7.3.698 084.8 [id number] [facility] 2023-04-19 18:30:50 2023-04-19 18:30:[address] [facility] [id number] Georgi Delaney 2023-04-17 14:29:59 2023-04-17 14:29:59 Outpatient [facility] [id number] Georgi Delaney 2023-04-13 08:56:15 2023-04-13 23:59:00 Hospital Encounter Radiology 1.2.840.1 57725.1.1 3.104.2.7 .3.173755 .8 [id number] [facility] 2023-04-13 08:56:15 2023-04-13 23:59:00 Outpatient R RADIOLOGY [facility] [id number] [facility] 2023-04-13 08:55:54 2023-04-13 08:55:54 Hospital Encounter Radiology 1.2.840.1 68757.1.1 3.104.2.7 .3.753181 .8 [id number] [facility] 2023-04-13 08:55:27 2023-04-13 08:55:27 Hospital Encounter Radiology 1.2.840.1 77533.1.1 3.104.2.7 .3.513496 .8 [id number] [facility] 2023-04-12 19:00:40 2023-04-12 19:00:[address] [facility] [id number] Georgi Delaney 2023-04-10 11:30:44 2023-04-10 11:30:[address] [facility] [id number] Georgi Johnson Rhett 2023-04-05 18:18:42 2023-04-05 18:18:[address] [facility] [id number] Georgi Johnson Rhett 2023-04-04 09:30:00 2023-04-04 10:41:40 Outpatient CHANEL HAYES [facility] [id number] [facility] 2023-04-04 00:00:00 2023-04-04 00:00:00 Travel 1.2.840.1 51103.1.1 3.104.2.7 .3.149889 .8 1.2.840.114 350.1.13.10 4.2.7.3.698 084.8 [id number] [facility] 2023-04-03 11:21:59 2023-04-03 11:21:[address] [facility] [id number] Georgi Johnson Rhett 2023-03-29 18:55:20 2023-03-29 18:55:[address] [facility] [id number] Georgi Johnson Rhett 2023-03-27 12:02:13 2023-03-27 12:02:[address] [facility] [id number] Georgi Johnson Rhett 2023-03-21 10:15:00 2023-03-21 13:01:48 Outpatient SHARRI LOWE KIMBERLY [facility] [id number] [facility] 2023-03-21 00:00:00 2023-03-21 00:00:00 Travel 1.2.840.1 41121.1.1 3.104.2.7 .3.986852 .8 1.2.840.114 350.1.13.10 4.2.7.3.698 084.8 [id number] [facility] 2023-03-20 12:37:00 2023-03-20 12:37:00 Outpatient SFA SFA [id number] Georgi Delaney 2023-03-19 14:00:00 2023-03-19 14:34:36 Outpatient R AFIA BEAULIEU [facility] [id number] [facility] 2023-03-19 14:00:00 2023-03-19 14:34:36 Office Visit BeaulieuBenitaAfia 1.2.840.1 18680.1.1 3.104.2.7 .3.153458 .8 [id number] [facility] 2023-03-19 00:00:00 2023-03-19 00:00:00 Travel 1.2.840.1 78045.1.1 3.104.2.7 .3.140155 .8 1.2.840.114 350.1.13.10 4.2.7.3.698 084.8 [id number] [facility] 2023-03-19 00:00:00 2023-03-19 00:00:00 Orders Only Zhanna Kramer 1.2.840.1 03383.1.1 3.104.2.7 .3.396366 .8 [id number] [facility] 2023-03-16 00:00:00 2023-03-16 00:00:00 Travel 1.2.840.1 60162.1.1 3.104.2.7 .3.290866 .8 1.2.840.114 350.1.13.10 4.2.7.3.698 084.8 [id number] [facility] 2023-03-15 18:23:30 2023-03-15 18:23:30 Outpatient SFA SFA [id number] Georgi Delaney 2023-03-13 15:41:52 2023-03-13 15:41:52 Outpatient SFA [id number] [id number] Georgi Delaney 2023-03-09 18:15:48 2023-03-09 18:15:48 Outpatient SFA [id number] [id number] Georgi Delaney 2023-03-08 18:27:54 2023-03-08 18:27:54 Outpatient SFA [address] [id number] Georgi Delaney 2023-03-07 17:09:40 2023-03-07 17:09:40 Outpatient S[place] [id number] Georgi Delaney 2023-03-06 13:55:04 2023-03-06 13:55:04 Outpatient SFA [place] [id number] Georgi Delaney 2023-03-01 19:02:12 2023-03-01 19:02:12 Outpatient SFA [place] [id number] Georgi Delaney 2023-02-27 12:52:47 2023-02-27 12:52:47 Outpatient SFA [place] [id number] Georgi Delaney 2023-02-27 00:00:00 2023-02-27 00:00:00 Telephone Afia Beaulieu 1.2.840.1 14217.1.1 3.104.2.7 .3.127349 .8 [id number] [facility] 2023-02-26 14:06:01 2023-02-26 23:59:00 Outpatient R AFIA BEAULIEU [facility] [id number] [facility] 2023-02-26 14:06:01 2023-02-26 23:59:00 Hospital Encounter Afia Beaulieu 1.2.840.1 40351.1.1 3.104.2.7 .3.216630 .8 [id number] [facility] 2023-02-26 00:00:00 2023-02-26 00:00:00 Orders Only Doctor Unassigned, [place] 1.2.840.1 49986.1.1 3.104.2.7 .3.834877 .8 [id number] [facility] 2023-02-23 00:00:00 2023-02-23 00:00:00 Outpatient AFIA MELVIN [facility] [id number] [facility] 2023-02-22 18:59:42 2023-02-22 18:59:[address] [facility] [id number] Georgi Delaney 2023-02-22 08:00:00 2023-02-22 10:21:38 Outpatient ISELA HAIDER [facility] [id number] [facility] 2023-02-22 00:00:00 2023-02-22 00:00:00 Orders Only Doctor Unassigned, [place] [facility] 1.2.840.114 350.1.13.10 4.2.7.2.686 [id number] [facility] 2023-02-22 00:00:00 2023-02-22 00:00:00 Travel 1.2.840.1 39689.1.1 3.104.2.7 .3.839747 .8 1.2.840.114 350.1.13.10 4.2.7.3.698 084.8 [id number] [facility] 2023-02-20 00:00:00 2023-02-20 00:00:00 Telephone Afia Beaulieu 1.2.840.1 82113.1.1 3.104.2.7 .3.341600 .8 [id number] [facility] 2023-02-20 00:00:00 2023-02-20 00:00:00 Travel 1.2.840.1 03112.1.1 3.104.2.7 .3.816264 .8 1.2.840.114 350.1.13.10 4.2.7.3.698 084.8 [id number] [facility] 2023-02-19 00:00:00 2023-02-19 00:00:00 Telephone Afia Beaulieu 1.2.840.1 80357.1.1 3.104.2.7 .3.034426 .8 [id number] [facility] 2023-02-16 16:00:00 2023-02-16 16:37:59 Outpatient R AFIA BEAULIEU [facility] [id number] [facility] 2023-02-16 16:00:00 2023-02-16 16:37:59 Office Visit Afia Beaulieu 1.2.840.1 41359.1.1 3.104.2.7 .3.015513 .8 [id number] [facility] 2023-02-16 10:40:55 2023-02-16 10:40:55 Outpatient [facility] [id number] Georgi Delaney 2023-02-16 00:00:00 2023-02-16 00:00:00 Orders Only Doctor Unassigned, [place] 1.2.840.1 07157.1.1 3.104.2.7 .3.048523 .8 [id number] [facility] 2023-02-16 00:00:00 2023-02-16 00:00:00 Telephone Afia Beaulieu 1.2.840.1 16362.1.1 3.104.2.7 .3.268007 .8 [id number] [facility] 2023-02-16 00:00:00 2023-02-16 00:00:00 Refill Afia Beaulieu 1.2.840.1 81152.1.1 3.104.2.7 .3.379570 .8 [id number] [facility] 2023-02-16 00:00:00 2023-02-16 00:00:00 Travel 1.2.840.1 31411.1.1 3.104.2.7 .3.251001 .8 1.2.840.114 350.1.13.10 4.2.7.3.698 084.8 [id number] [facility] 2023-02-15 18:29:11 2023-02-15 18:29:11 Outpatient SFA SFA [id number] Georgi Delaney 2023-01-24 14:36:00 2023-01-24 14:36:00 Outpatient SFA SFA [id number] Georgi Johnson Rhett 2023-01-23 11:08:53 2023-01-23 11:08:53 Outpatient SFA SFA [id number] Georgi Johnson Rhett 2023-01-23 00:00:00 2023-01-23 00:00:00 Orders Only Doctor Unassigned, [place] 1.2.840.1 46031.1.1 3.104.2.7 .3.065054 .8 [id number] [facility] 2023-01-18 15:07:35 2023-01-18 15:07:35 Outpatient SFA SFA [id number] Georgi Delaney 2023-01-16 16:50:24 2023-01-16 16:50:24 Outpatient SFA SFA [id number] Georgi Johnson [place] 2023-01-08 15:29:19 2023-01-08 15:29:19 Outpatient SFA SFA [id number] Georgi Johnson [place] 2023-01-03 00:00:00 2023-01-03 00:00:00 Orders Only Doctor Unassigned, [place] 1.2.840.1 49378.1.1 3.104.2.7 .3.823128 .8 [id number] [facility] 2022-12-23 09:11:36 2022-12-23 09:11:36 Outpatient SFA SFA [id number] Georgi Johnson [place] 2022-12-11 16:09:25 2022-12-11 16:09:25 Outpatient SFA SFA [id number] Georgi Johnson [place] 2022-12-05 10:53:45 2022-12-05 10:53:45 Outpatient SFA SFA [id number] Georgi Johnson Rhett 2022-11-28 17:46:35 2022-11-28 17:46:35 Outpatient SFA SFA [id number] Georgi Delaney 2022-11-20 00:00:00 2022-11-20 00:00:00 [facility] 1.2.840.114 350.1.13.10 4.2.7.2.686 [id number] [facility] 2022-11-17 11:28:22 2022-11-17 11:28:22 Outpatient SFA SFA [id number] Georgi Delaney 2022-11-08 13:56:45 2022-11-08 13:56:45 Outpatient SFA SFA 29 Georgi Delaney 2022-11-01 11:26:47 2022-11-01 11:26:47 Outpatient SFA SFA 22 Georgi Delaney 2022-10-31 13:04:58 2022-10-31 13:04:58 Outpatient SFA SFA [id number] Georgi Delaney 2022-10-20 11:25:26 2022-10-20 11:25:26 Outpatient SFA SFA [id number] Georgi Delaney 2022-10-19 14:02:23 2022-10-19 14:02:23 Outpatient SFA SFA 09 Georgi Delaney 2022-10-09 10:08:28 2022-10-09 10:08:28 Outpatient SFA SFA 27 Georgi Delaney 2022-09-21 11:54:36 2022-09-21 11:54:36 Outpatient SFA SFA [id number] Georgi Delaney 2022-09-15 11:33:15 2022-09-15 11:33:15 Outpatient SFA SFA [id number] Georgi Delaney 2022-09-08 10:49:58 2022-09-08 10:49:58 Outpatient SFA SFA [id number] Georgi Delaney 2022-09-07 15:51:56 2022-09-07 15:51:56 Outpatient SFA SFA [id number] Georgi Delaney 2022-09-05 10:47:25 2022-09-05 10:47:25 Outpatient SFA SFA [id number] Georgi Delaney 2022-09-04 11:21:25 2022-09-04 11:21:25 Outpatient SFA SFA [id number] Georgi Delaney 2022-08-30 15:33:51 2022-08-30 15:33:51 Outpatient SFA SFA 18 Georgi Delaney 2022-08-30 00:00:00 2022-08-30 00:00:00 Outpatient Visit [id number] 3485-45fb -8adf-9d4 4x2su03q5 [id number] 485-45fb-8 adf-9d42c4 aa65e7 2022-08-25 10:13:30 2022-08-25 10:13:30 Outpatient SFA SFA 13 Georgi Delaney 2022-08-11 09:20:54 2022-08-11 09:20:54 Outpatient SFA SFA Georgi Delaney 2022-07-28 11:30:57 2022-07-28 11:30:57 Outpatient SFA SFA [id number] Georgi Delaney 2022-07-14 11:31:56 2022-07-14 11:31:56 Outpatient SFA SFA [id number] Georgi Delaney 2022-06-29 15:28:07 2022-06-29 15:28:07 Outpatient SFA SFA [id number] Georgi Delaney 2022-06-29 00:00:00 2022-06-29 00:00:00 Outpatient Visit [id number]- 0088-44b4 -8443-99f [id number] [id number] 088-44b4-8 443-99fcb6 b36be4 2022-06-16 11:17:33 2022-06-16 11:17:33 Outpatient SFA SFA [id number] Georgi Delaney 2022-06-15 09:41:11 2022-06-15 09:41:11 Outpatient SFA SFA [id number] Georgi Delaney 2022-06-08 00:00:00 2022-06-08 00:00:00 Outpatient Visit 03esukb9- 1155-48b2 -dj7d-bw6 [id number] [id number] 155-48b2-b p3f-oe0o1f [id number] 2022-04-27 00:00:00 2022-04-27 00:00:00 Outpatient Visit 3ggfm1xv- 26r7-20j3 -pb15-70l h24bp1y5l [id number] 9sipi5hq-2 8p8-28x2-z l80-11sg75 ab5d1b 2022-03-02 00:00:00 2022-03-02 00:00:00 Outpatient Visit [id number] [id number] -926c-c29 [id number] c66-5r08-9 26c-c29a66 48j686 2021-07-27 11:56:00 2021-07-27 15:42:00 Emergency X Yamil MESSINA [facility] ERT [id number] [facility] 2021-07-27 11:56:00 2021-07-27 15:42:00 Emergency Yamil Messina [facility] 1..114 350.1.13.10 4.2.7.2.686 [id number] [facility] 2021-06-24 22:06:00 2021-06-24 23:54:00 Emergency X YOON PAGE [facility] ERT [id number] [facility] 2021-06-24 22:06:00 2021-06-24 23:54:00 Emergency TerriashlynSilviano loydemilio S [facility] 1..114 350.1.13.10 4.2.7.2.686 [id number] [facility] 2021-06-24 00:00:00 2021-06-24 00:00:00 Orders Only Doctor Unassigned, [place] [facility] 1.840.114 350.1.13.10 4.2.7.2.686 [id number] [facility] 2021-02-17 14:13:58 2021-02-17 15:19:24 Office Visit Pgy2 Marques Mansfield [facility] 1.2.840.114 350.1.13.10 4.2.7.2.686 [id number] [facility] 2021-02-17 14:00:00 2021-02-17 14:00:00 Outpatient R [facility] [id number] [facility] 2021-01-06 00:00:00 2021-01-06 00:00:00 Orders Only Doctor Unassigned, [place] [facility] 1.2.840.114 350.1.13.10 4.2.7.2.686 [id number] [facility] 2021-01-05 13:58:29 2021-01-05 16:19:12 Office Visit [facility] Aracely Villanueva [facility] 1.2840.114 350.1.13.10 4.2.7.2.686 [id number] [facility] 2021-01-05 14:15:00 2021-01-05 14:15:00 Outpatient R [facility] [id number] [facility] 2020-12-10 00:00:00 2020-12-10 00:00:00 Telephone Silvestre chin [facility] 1.840.114 350.1.13.10 4.2.7.2.686 [id number] [facility] 2020-12-07 14:35:42 2020-12-07 16:30:20 Office Visit [place] [facility] Resident Jeanette Campos [facility] 1.2840.114 350.1.13.10 4.2.7.2.686 [id number] [facility] 2020-12-07 14:30:00 2020-12-07 14:30:00 Outpatient JEANETTE VARELA [facility] [id number] [facility] 2020-12-07 00:00:00 2020-12-07 00:00:00 Orders Only Doctor Unassigned, [place] [facility] 1.2.840.114 350.1.13.10 4.2.7.2.686 [id number] [facility] 2020-12-02 14:05:00 2020-12-02 14:05:00 Outpatient BEBE ACUNA [facility] [id number] [facility] Results Test Description Test Time Test Comments Results Result Co mments Source HCG SERUM [id number] 15:15:00* Test Item Value Reference Range Interpretation Comme nts HCG SERUM QUAL (test code = HCGQL) SERUM NEGATIVE SCREEN NEGATIVE CBC W/O [id number] 14:53:00* Test Item Value Reference Range Interpretation [...] = MPV) 10.50 fL 7.0-10.5 N CULTURE, [id number] 10:18:02SPECIMEN NUMBER: [id number] CULTURE, URINE SPECIMEN NUMBER: [id number] SPECIMEN COMMENT: URINE SOURCE: URINE REPORT STATUS: FINAL FINAL REPORT: 01/11/2024 50-100,000 CFU/ML UROGENITAL KELLY PRESENT NO COMMON PATHOGENS UNLESS OTHERWISE INDICATED, ALL TESTING PERFORMED AT [facility] [address] [place] [address] DIALYSIS RN: TOM MORALES M.D. CLIA NUMBER [id number] [place]. [id number] CULTURE, [id number] 00:00:00* Test Item Value Reference Range Interpretation Comme nts CULTURE, URINE (test code = 64349) SPECIMEN NUMBER: [id number] Georgi Matthews, THIRD [id number] 06:31:41* Test Item Value Reference Range Interpretation Comme nts TSH, THIRD GENERATION (test code = 2821) 0.104 UIU/ML 0.400-4.100 L UNLESS OTHERWISE INDICATED, ALL TESTING PERFORMED AT [facility] [address] [place] [address] DIALYSIS RN: TOM MORALES M.D. CLIA NUMBER [id number] [place]. [id number] TSH, THIRD [id number] 00:00:00* Test Item Value Reference Range Interpretation Comme nts TSH, THIRD GENERATION (test code = 2821) 0.104 UIU/ML Georgi Matthews, THIRD [id number] 00:00:00* Test Item Value Reference Range Interpretation Comme nts TSH, THIRD GENERATION (test code = 2821) 0.104 UIU/ML Georgi Matthews, THIRD [id number] 00:00:00* Test Item Value Reference Range Interpretation Comme nts TSH, THIRD GENERATION (test code = 2821) 0.104 UIU/ML Georgi Johnson [place]- [place]/[id number] 16:25:56Ordered by an unspecified provider.[facility]/[id number] 16:25:56Ordered by an unspecified provider.[facility]/[id number] 16:25:56Ordered by an unspecified provider.[facility]/[id number] 16:25:56Ordered by an unspecified provider.[facility]/[id number] 16:25:56Ordered by an unspecified provider.[facility]/[id number] 16:25:56Ordered by an unspecified provider.[facility]REF[facility]/[id number] 16:25:56Ordered by an unspecified provider.[facility]/[id number] 16:25:56Ordered by an unspecified provider.[facility]REF[facility]- [facility]/[id number] 16:25:56Ordered by an unspecified provider.[facility]REF[facility]- [facility]QUEST/[id number] 16:25:56Ordered by an unspecified provider.[facility]- [facility]QUEST/[id number] 16:25:56Ordered by an unspecified provider.[facility]REF[facility]- REQUEST/[id number] 16:25:56Ordered by an unspecified provider.[facility]REF[facility]- REQUEST/[id number] 16:25:56Ordered by an unspecified provider.[facility]REF[facility]- REQUEST/[id number] 16:25:56Ordered by an unspecified provider.[facility] LUMBAR SPINE 4 [id number] 20:17:08HISTORY: ?Low back pain. FINDINGS: AP, lateral [...] mild changes of disc disease at L3-L4, L4-L5.[facility] THORACIC SPINE 2 [id number] 20:15:05HISTORY: ?Back pain. COMPARISON: None. TECHNIQUE: AP and lateral views of the thoracic spines are submitted. FINDINGS: No compression fracture detected. No aggressive bone lesions orparavertebral soft tissue swelling. Small osteophytes are seen along theventral and lateral vertebral margins at middle and lower thoracic levels. CONCLUSIONS: No fracture.[facility] TEST 2023-10-17 06:14:00* Test Item Value Reference Range Interpretation Comme nts POCT PREG (test code = 1605) Negative On board controls acceptable with C Line (test code = 3574) Yes POCT PREG LOT # (test code = 3575) [id number] POCT PREG TEST DATE ( test code = 3576) 11/18/2024 Lab Interpretation (test cod e = 75282-4) Normal [facility] [id number] 06:14:00* Test Item Value Reference Range Interpretation Comme nts POCT PREG (test code = 1605) Negative On board controls acceptable with C Line (test code = 3574) Yes POCT PREG LOT # (test code = 3575) [id number] POCT PREG TEST DATE ( test code = 3576) 11/18/2024 Lab Interpretation (test cod e = 25330-2) Normal [facility] [id number] 06:14:00* Test Item Value Reference Range Interpretation Comme nts POCT PREG (test code = 1605) Negative On board controls acceptable with C Line (test code = 3574) Yes POCT PREG LOT # (test code = 3575) [id number] POCT PREG TEST DATE ( test code = 3576) 11/18/2024 Lab Interpretation (test cod e = 35335-9) Normal [facility] [id number] 06:14:00* Test Item Value Reference Range Interpretation Comme nts POCT PREG (test code = 1605) Negative On board controls acceptable with C Line (test code = 3574) Yes POCT PREG LOT # (test code = 3575) [id number] POCT PREG TEST DATE ( test code = 3576) 11/18/2024 Lab Interpretation (test cod e = 73310-7) Normal [facility] [id number] 06:14:00* Test Item Value Reference Range Interpretation Comme nts POCT PREG (test code = 1605) Negative On board controls acceptable with C Line (test code = 3574) Yes POCT PREG LOT # (test code = 3575) [id number] POCT PREG TEST DATE ( test code = 3576) 11/18/2024 Lab Interpretation (test cod e = 66949-9) [facility] [id number] 06:14:00* Test Item Value Reference Range Interpretation Comme nts POCT PREG (test code = 1605) Negative On board controls acceptable with C Line (test code = 3574) Yes POCT PREG LOT # (test code = 3575) [id number] POCT PREG TEST DATE ( test code = 3576) 11/18/2024 Lab Interpretation (test cod e = 63136-1) [facility] [id number] 06:14:00* Test Item Value Reference Range Interpretation Comme nts POCT PREG (test code = 1605) Negative On board controls acceptable with C Line (test code = 3574) Yes POCT PREG LOT # (test code = 3575) [id number] POCT PREG TEST DATE ( test code = 3576) 11/18/2024 Lab Interpretation (test cod e = 48349-0) [facility] [id number] 06:14:00* Test Item Value Reference Range Interpretation Comme nts POCT PREG (test code = 1605) Negative On board controls acceptable with C Line (test code = 3574) Yes POCT PREG LOT # (test code = 3575) [id number] POCT PREG TEST DATE ( test code = 3576) 11/18/2024 Lab Interpretation (test cod e = 91682-0) [facility] [id number] 06:14:00* Test Item Value Reference Range Interpretation Comme nts POCT PREG (test code = 1605) Negative On board controls acceptable with C Line (test code = 3574) Yes POCT PREG LOT # (test code = 3575) [id number] POCT PREG TEST DATE ( test code = 3576) 11/18/2024 Lab Interpretation (test cod e = 75374-9) [facility] [id number] 06:14:00* Test Item Value Reference Range Interpretation Comme nts POCT PREG (test code = 1605) Negative On board controls acceptable with C Line (test code = 3574) Yes POCT PREG LOT # (test code = 3575) [id number] POCT PREG TEST DATE ( test code = 3576) 11/18/2024 Lab Interpretation (test cod e = 25617-2) [facility] [id number] 06:14:00* Test Item Value Reference Range Interpretation Comme nts POCT PREG (test code = 1605) Negative On board controls acceptable with C Line (test code = 3574) Yes POCT PREG LOT # (test code = 3575) [id number] POCT PREG TEST DATE ( test code = 3576) 11/18/2024 Lab Interpretation (test cod e = 90650-7) [facility] [id number] 06:14:00* Test Item Value Reference Range Interpretation Comme nts POCT PREG (test code = 1605) Negative On board controls acceptable with C Line (test code = 3574) Yes POCT PREG LOT # (test code = 3575) [id number] POCT PREG TEST DATE ( test code = 3576) 11/18/2024 Lab Interpretation (test cod e = 26060-7) [facility] [id number] 06:14:00* Test Item Value Reference Range Interpretation Comme nts POCT PREG (test code = 1605) Negative On board controls acceptable with C Line (test code = 3574) Yes POCT PREG LOT # (test code = 3575) [id number] POCT PREG TEST DATE ( test code = 3576) 11/18/2024 Lab Interpretation (test cod e = 87156-9) [facility] [id number] 06:14:00* Test Item Value Reference Range Interpretation Comme nts POCT PREG (test code = 1605) Negative On board controls acceptable with C Line (test code = 3574) Yes POCT PREG LOT # (test code = 3575) [id number] POCT PREG TEST DATE ( test code = 3576) 11/18/2024 Lab Interpretation (test cod e = 67438-8) [facility] [id number] 06:14:00* Test Item Value Reference Range Interpretation Comme nts POCT PREG (test code = 1605) Negative On board controls acceptable with C Line (test code = 3574) Yes POCT PREG LOT # (test code = 3575) [id number] POCT PREG TEST DATE ( test code = 3576) 11/18/2024 Lab Interpretation (test cod e = 54841-4) [facility] [id number] 06:14:00* Test Item Value Reference Range Interpretation Comme nts POCT PREG (test code = 1605) Negative On board controls acceptable with C Line (test code = 3574) Yes POCT PREG LOT # (test code = 3575) [id number] POCT PREG TEST DATE ( test code = 3576) 11/18/2024 Lab Interpretation (test cod e = 07802-0) [facility] [id number] 06:14:00* Test Item Value Reference Range Interpretation Comme nts POCT PREG (test code = 1605) Negative On board controls acceptable with C Line (test code = 3574) Yes POCT PREG LOT # (test code = 3575) [id number] POCT PREG TEST DATE ( test code = 3576) 11/18/2024 Lab Interpretation (test cod e = 44899-4) [facility] [id number] 06:14:00* Test Item Value Reference Range Interpretation Comme nts POCT PREG (test code = 1605) Negative On board controls acceptable with C Line (test code = 3574) Yes POCT PREG LOT # (test code = 3575) [id number] POCT PREG TEST DATE ( test code = 3576) 11/18/2024 Lab Interpretation (test cod e = 31453-9) [facility] [id number] 06:14:00* Test Item Value Reference Range Interpretation Comme nts POCT PREG (test code = 1605) Negative On board controls acceptable with C Line (test code = 3574) Yes POCT PREG LOT # (test code = 3575) [id number] POCT PREG TEST DATE ( test code = 3576) 11/18/2024 Lab Interpretation (test cod e = 26298-4) [facility] 04:48:14* Test Item Value Reference Range Interpretation Comme nts FREE T3 (test code = 4273) 2.4 PG/ML 2.2-4.2 FREE T4 (THYROXINE)2023-09-07 04:48:14* Test Item Value Reference Range Interpretation Comme nts FREE T4 (THYROXINE) (test code = 2823) 1.28 NG/DL 0.80-1.90 UNLESS OTHERWISE INDICATED, ALL TESTING PERFORMED AT [facility] [address] [place] [address] DIALYSIS RN: TOM MORALES M.D. CLIA NUMBER [id number] [facility] [place]. [id number] [facility] 00:00:00* Test Item Value Reference Range Interpretation Comme nts FREE T3 (test code = 4273) 2.4 PG/ML Georgi Johnson [facility] T4 (THYROXINE)2023-09-07 00:00:00* Test Item Value Reference Range Interpretation Comme nts FREE T4 (THYROXINE) (test co de = 2823) 1.28 NG/DL Georgi Johnson [facility] 00:00:00* Test Item Value Reference Range Interpretation Comme nts FREE T3 (test code = 4273) 2.4 PG/ML [facility] T4 (THYROXINE)2023-09-07 00:00:00* Test Item Value Reference Range Interpretation Comme nts FREE T4 (THYROXINE) (test co de = 2823) 1.28 NG/DL Georgi Johnson [facility] 00:00:00* Test Item Value Reference Range Interpretation Comme nts FREE T3 (test code = 4273) 2.4 PG/ML Georgi Johnson [facility] T4 (THYROXINE)2023-09-07 00:00:00* Test Item Value Reference Range Interpretation Comme nts FREE T4 (THYROXINE) (test co de = 2823) 1.28 NG/DL YUNG Pepper [id number] 09:15:10* Test Item Value Reference Range Interpretation Comme nts TSH, THIRD GENERATION (test code = 2821) 0.272 UIU/ML 0.400-4.100 L UNLESS OTHERWISE INDICATED, ALL TESTING PERFORMED AT [facility] [address] [place] [address] DIALYSIS RN: TOM MORALES M.D. CLIA NUMBER [id number] [facility] [place]. [id number] TSH, THIRD [id number] 00:00:00* Test Item Value Reference Range Interpretation Comme nts TSH, THIRD GENERATION (test code = 2821) 0.272 UIU/ML Georgi Matthews THIRD [id number] 00:00:00* Test Item Value Reference Range Interpretation Comme nts TSH, THIRD GENERATION (test code = 2821) 0.272 UIU/ML Georgi Matthews THIRD [id number] 00:00:00* Test Item Value Reference Range Interpretation Comme amador TSH, THIRD GENERATION (test code = 2821) 0.272 UIU/ML Georgi Matthews THIRD [id number] 04:01:26* Test Item Value Reference Range Interpretation Comme nts TSH, THIRD GENERATION (test code = 2821) 0.960 UIU/ML 0.400-4.100 FREE [id number] 04:01:26* Test Item Value Reference Range Interpretation Comme nts FREE T3 (test code = 4273) 2.8 PG/ML 2.2-4.2 FREE T4 (THYROXINE)2023-06-07 04:01:26* Test Item Value Reference Range Interpretation Comme nts FREE T4 (THYROXINE) (test co de = 2823) 1.51 NG/DL 0.80-1.90 HIGH SENSITIVITY [id number] 04:01:09* Test Item Value Reference Range Interpretation Comme nts HIGH SENSITIVITY CRP (test code = 43725) 10.1 MG/L SEE BELOW H hsCRP LEVEL RELATIVE RISK <1.0 MG/L LOW 1.0-3.0 MG/L AVERAGE >3.0 MG/L HIGH (from Philomena TNatalieA. et al. Circulation 2003; 107:499) CBC W/AUTO DIFF WITH [id number] 02:38:59* Test Item Value Reference Range Interpretation [...] 0.00-0.10 ABS NUCLEATED RBCS (test code = 67904) 0.00 K/UL 0.00-0.11 UNLESS OTHER JENSEN INDICATED, ALL TESTING PERFORMED AT [facility] [address] [place] [address] DIALYSIS RN: TOM MORALES M.D. CLIA NUMBER [id number] [facility] [place]. [id number] TSH, THIRD [id number] 00:00:00* Test Item Value Reference Range Interpretation Comme nts TSH, THIRD GENERATION (test code = 2821) 0.960 UIU/ML Georgi ClarkEE [id number] 00:00:00* Test Item Value Reference Range Interpretation Comme nts FREE T3 (test code = 4273) 2.8 PG/ML Georgi DelaneyFREE T4 (THYROXINE)2023-06-07 00:00:00* Test Item Value Reference Range Interpretation Comme nts FREE T4 (THYROXINE) (test co de = 2823) 1.51 NG/DL Georgi DelaneyHIGH SENSITIVITY [id number] 00:00:00* Test Item Value Reference Range Interpretation Comme nts HIGH SENSITIVITY CRP (test c ode = 49020) 10.1 MG/L Georgi DelaneyCBC W/AUTO [id number] 00:00:00* Test Item Value Reference Range Interpretation [...] ABS NUCLEATED RBCS (test cod e = 39982) 0.00 K/UL Georgi Matthews, THIRD [id number] 00:00:00* Test Item Value Reference Range Interpretation Comme nts TSH, THIRD GENERATION (test code = 2821) 0.960 UIU/ML Georgi DelaneyFREE [id number] 00:00:00* Test Item Value Reference Range Interpretation Comme nts FREE T3 (test code = 4273) 2.8 PG/ML Georgi DelaneyFREE T4 (THYROXINE)2023-06-07 00:00:00* Test Item Value Reference Range Interpretation Comme nts FREE T4 (THYROXINE) (test co de = 2823) 1.51 NG/DL Georgi DelaneyHIGH SENSITIVITY [id number] 00:00:00* Test Item Value Reference Range Interpretation Comme nts HIGH SENSITIVITY CRP (test c ode = 85088) 10.1 MG/L Georgi DelaneyCBC W/AUTO [id number] 00:00:00* Test Item Value Reference Range Interpretation [...] ABS NUCLEATED RBCS (test cod e = 35288) 0.00 K/UL Georgi DelaneyTSH, THIRD [id number] 00:00:00* Test Item Value Reference Range Interpretation Comme nts TSH, THIRD GENERATION (test code = 2821) 0.960 UIU/ML Georgi DelaneyFREE [id number] 00:00:00* Test Item Value Reference Range Interpretation Comme nts FREE T3 (test code = 4273) 2.8 PG/ML Georgi DelaneyEE T4 (THYROXINE)2023-06-07 00:00:00* Test Item Value Reference Range Interpretation Comme nts FREE T4 (THYROXINE) (test co de = 2823) 1.51 NG/DL Georgi DelaneyHIGH SENSITIVITY [id number] 00:00:00* Test Item Value Reference Range Interpretation Comme nts HIGH SENSITIVITY CRP (test c ode = 60900) 10.1 MG/L Georgi DelaneyCBC W/AUTO [id number] 00:00:00* Test Item Value Reference Range Interpretation [...] ABS NUCLEATED RBCS (test cod e = 90437) 0.00 K/UL Georgi TatumH + FREE T4 [id number] 06:33:47* Test Item Value Reference Range Interpretation Comme nts TSH, THIRD GENERATION (test code = 2821) 0.381 UIU/ML 0.400-4.100 L FREE T4 (THYROXINE) (test co de = 2823) 1.49 NG/DL 0.80-1.90 T3 [id number] 06:33:47* Test Item Value Reference Range Interpretation Comme nts T3 TOTAL (test code = 2818) 98 NG/DL 80-200 HIGH SENSITIVITY [id number] 04:12:17* Test Item Value Reference Range Interpretation Comme nts HIGH SENSITIVITY CRP (test code = 47289) 3.5 MG/L SEE BELOW H hsCRP LEVEL RELATIVE RISK <1.0 MG/L LOW 1.0-3.0 MG/L AVERAGE >3.0 MG/L HIGH (from Philomena, T.A. et al. Circulation 2003; 107:499) UNLESS OTHERWISE INDICATED, ALL TESTING PERFORMED AT [facility] [address] [place] [address] DIALYSIS RN: TOM MORALES M.D. CLIA NUMBER [id number] [place]. [id number] CBC W/AUTO DIFF WITH [id number] 01:43:18* Test Item Value Reference Range Interpretation [...] = 1065) 0.0 /100 WBC'S See_Comment [Automated messa ge] The system which [...] 0.00-0.10 ABS NUCLEATED RBCS (test code = 86719) 0.00 K/UL 0.00-0.11 CBC W/AUTO [id number] 00:00:00* Test Item Value Reference Range Interpretation [...] ABS NUCLEATED RBCS (test cod e = 17375) 0.00 K/UL Georgi DelaneyTSH + FREE T4 [id number] 00:00:00* Test Item Value Reference Range Interpretation Comme nts TSH, THIRD GENERATION (test code = 2821) 0.381 UIU/ML FREE T4 (THYROXINE) (test co de = 2823) 1.49 NG/DL Georgi DelaneyT3 [id number] 00:00:00* Test Item Value Reference Range Interpretation Comme nts T3 TOTAL (test code = 2818) 98 NG/DL Georgi DelaneyHIGH SENSITIVITY [id number] 00:00:00* Test Item Value Reference Range Interpretation Comme nts HIGH SENSITIVITY CRP (test c ode = 34538) 3.5 MG/L Georgi DelaneyCBC W/AUTO [id number] 00:00:00* Test Item Value Reference Range Interpretation [...] ABS NUCLEATED RBCS (test cod e = 09637) 0.00 K/UL Georgi DelaneyTSH + FREE T4 [id number] 00:00:00* Test Item Value Reference Range Interpretation Comme nts TSH, THIRD GENERATION (test code = 2821) 0.381 UIU/ML FREE T4 (THYROXINE) (test co de = 2823) 1.49 NG/DL Georgi DelaneyT3 [id number] 00:00:00* Test Item Value Reference Range Interpretation Comme nts T3 TOTAL (test code = 2818) 98 NG/DL Georgi DelaneyHIGH SENSITIVITY [id number] 00:00:00* Test Item Value Reference Range Interpretation Comme nts HIGH SENSITIVITY CRP (test c ode = 80299) 3.5 MG/L Georgi DelaneyCBC W/AUTO [id number] 00:00:00* Test Item Value Reference Range Interpretation [...] ABS NUCLEATED RBCS (test cod e = 50940) 0.00 K/UL Georgi Matthews + FREE T4 [id number] 00:00:00* Test Item Value Reference Range Interpretation Comme nts TSH, THIRD GENERATION (test code = 2821) 0.381 UIU/ML FREE T4 (THYROXINE) (test co de = 2823) 1.49 NG/DL Georgi DelaneyT3 [id number] 00:00:00* Test Item Value Reference Range Interpretation Comme nts T3 TOTAL (test code = 2818) 98 NG/DL Georgi DelaneyHIGH SENSITIVITY [id number] 00:00:00* Test Item Value Reference Range Interpretation Comme nts HIGH SENSITIVITY CRP (test c ode = 52592) 3.5 MG/L Georgi TatumH, THIRD [id number] 12:02:55* Test Item Value Reference Range Interpretation Comme nts TSH, THIRD GENERATION (test code = 2821) 0.678 UIU/ML 0.400-4.100 UNLESS OTHERWISE INDICATED, ALL TESTING PERFORMED AT [facility] [address] [place] [address] DIALYSIS RN: TOM MORALES M.D. CLIA NUMBER [id number] [place]. [id number] TSH THIRD [id number] 00:00:00* Test Item Value Reference Range Interpretation Comme nts SHASHI, THIRD GENERATION (test code = 2821) 0.678 UIU/ML Georgi Matthews THIRD [id number] 00:00:00* Test Item Value Reference Range Interpretation Comme amador DANIELLE, THIRD GENERATION (test code = 2821) 0.678 UIU/ML Georgi Matthews THIRD [id number] 00:00:00* Test Item Value Reference Range Interpretation Comme amador DANIELLE THIRD GENERATION (test code = 2821) 0.678 UIU/ML Georgi DelaneyHEMOGLOBIN [id number] 03:11:34* Test Item Value Reference Range Interpretation Comme nts HEMOGLOBIN A1c (test code = 60736) 5.9 % 4.2-5.6 H [employer] GUIDELINES FOR HGB A1C: [...] TESTING PERFORMED AT [facility] [address] [place] [address] DIALYSIS RN: Edward COLIN[place] NUMBER [id number] [place]. [id number] HEMOGLOBIN [id number] 00:00:00* Test Item Value Reference Range Interpretation Comme amador HEMOGLOBIN A1c (test code = 15079) 5.9 % Georgi DelaneyHEMOGLOBIN [id number] 00:00:00* Test Item Value Reference Range Interpretation Comme nts HEMOGLOBIN A1c (test code = 69785) 5.9 % Georig DelaneyHEMOGLOBIN [id number] 00:00:00* Test Item Value Reference Range Interpretation Comme nts HEMOGLOBIN A1c (test code = 72852) 5.9 % YUNG Pepper [id number] 00:00:00* Test Item Value Reference Range Interpretation Comme amador TSH, THIRD GENERATION (test code = 2821) 0.753 UIU/ML YUNG Pepper [id number] 00:00:00* Test Item Value Reference Range Interpretation Comme amador TSH, THIRD GENERATION (test code = 2821) 0.753 UIU/ML YUNG Pepper [id number] 00:00:00* Test Item Value Reference Range Interpretation Comme amador TSH, THIRD GENERATION (test code = 2821) 0.753 UIU/ML Georgi DelaneyCOMPREHENSIVE METABOLIC [id number] 07:39:28* Test Item Value Reference Range Interpretation Comme amador GLUCOSE (test code = 2217) 112 MG/DL 70-99 H BUN (test code = 8) 14 MG/DL 6-20 CREATININE (test code = 2214) 0.79 MG/DL 0.60-1.30 eGFR (2020 CKD-EPI) (test code = 34617) 101 ML/MIN/1.73 >60 CALC BUN/CREAT (test code = 2235) 18 RATIO 6-28 SODIUM (test code = 2231) 140 MEQ/L 133-146 POTASSIUM (test code = 2228) 3.8 MEQ/L 3.5-5.4 CHLORIDE (test code = 2215) 101 MEQ/L 95-107 CARBON DIOXIDE (test code = 2206) 24 MEQ/L 19-31 CALCIUM (test code = 2209) 9.7 MG/DL 8.5-10.5 PROTEIN, TOTAL (test code = 222) 6.7 G/DL 6.1-8.3 ALBUMIN (test code = [...] 5-40 UNLESS OTHERWISE INDICATED, ALL [facility] [address] [place] [address] DIALYSIS RN: EDVIN BENSON M.D. [place] NUMBER [id number] [facility] [place]. [id number] HEMOGLOBIN [id number] 04:57:47* Test Item Value Reference Range Interpretation Comme nts HEMOGLOBIN A1c (test code = 83194) 6.1 % 4.2-5.6 H HEMOGLOBIN [id number] 00:00:00* Test Item Value Reference Range Interpretation Comme nts HEMOGLOBIN A1c (test code = 23877) 6.1 % Georgi DelaneyCOMPREHENSIVE METABOLIC [id number] 00:00:00* Test Item Value Reference Range Interpretation Comme nts GLUCOSE (test code = 2217) 112 MG/DL BUN (test code = 2208) 14 MG/DL CREATININE (test code = 2214) 0.79 MG/DL eGFR (2020 CKD-EPI) (test code = 52176) 101 ML/MIN/1.73 CALC BUN/CREAT (test code = [...] code = 2219) 24 U/L Georgi DelaneyHEMOGLOBIN [id number] 00:00:00* Test Item Value Reference Range Interpretation Comme nts HEMOGLOBIN A1c (test code = 30099) 6.1 % Georgi DelaneyCOMPREHENSIVE METABOLIC [id number] 00:00:00* Test Item Value Reference Range Interpretation Comme nts GLUCOSE (test code = 2217) 112 MG/DL BUN (test code = 2208) 14 MG/DL CREATININE (test code = 2214) 0.79 MG/DL eGFR (2020 CKD-EPI) (test code = 50018) 101 ML/MIN/1.73 CALC BUN/CREAT (test code = [...] code = 2219) 24 U/L Georgi DelaneyHEMOGLOBIN [id number] 00:00:00* Test Item Value Reference Range Interpretation Comme nts HEMOGLOBIN A1c (test code = 92955) 6.1 % Georgi DelaneyCOMPREHENSIVE METABOLIC [id number] 00:00:00* Test Item Value Reference Range Interpretation Comme nts GLUCOSE (test code = 2217) 112 MG/DL BUN (test code = 2208) 14 MG/DL CREATININE (test code = 2214) 0.79 MG/DL eGFR (2020 CKD-EPI) (test code = 22901) 101 ML/MIN/1.73 CALC BUN/CREAT (test code = [...] (test code = 2219) 24 U/L Georgi Matthews THIRD [id number] 03:25:48* Test Item Value Reference Range Interpretation Comme nts TSH, THIRD GENERATION (test code = 2821) 2.310 UIU/ML 0.400-4.100 UNLESS OTHERWISE INDICATED, ALL TESTING PERFORMED [facility] [address] [place] [address] DIALYSIS RN: EDVIN BENSON M.D. CLIA NUMBER [id number] [facility] [place]. [id number] TSH, THIRD [id number] 00:00:00* Test Item Value Reference Range Interpretation Comme nts TSH, THIRD GENERATION (test code = 2821) 2.310 UIU/ML YUNG Pepper [id number] 00:00:00* Test Item Value Reference Range Interpretation Comme nts TSH, THIRD GENERATION (test code = 2821) 2.310 UIU/ML Georgi Matthews THIRD [id number] 00:00:00* Test Item Value Reference Range Interpretation Comme nts TSH, THIRD GENERATION (test code = 2821) 2.310 UIU/ML TSH, THIRD [id number] 00:00:00* Test Item Value Reference Range Interpretation Comme nts TSH, THIRD GENERATION (test code = 2821) 2.310 UIU/ML Georgi DelaneyIdlirn33-[id number] 00:00:00* Test Item Value Reference Range Interpretation Comme nts 17-HYDROXYPROGESTERONE (test code = 4304) 45 ng/dL Georgi DelaneyWcepvd58-[id number] 00:00:00* Test Item Value Reference Range Interpretation Comme nts 17-HYDROXYPROGESTERONE (test code = 4304) 45 ng/dL 75-[id number] 00:00:00* Test Item Value Reference Range Interpretation Comme nts 17-HYDROXYPROGESTERONE (test code = 4304) 45 ng/dL 15-[id number] 00:00:00* Test Item Value Reference Range Interpretation Comme nts 17-HYDROXYPROGESTERONE (test code = 4304) 45 ng/dL Georgi DelaneyTwymrg66-[id number] 00:00:00* Test Item Value Reference Range Interpretation Comme nts 17-HYDROXYPROGESTERONE (test code = 4304) 45 ng/dL Georgi DelaneyFSH + LH [id number] 00:00:00* Test Item Value Reference Range Interpretation Comme nts FOLLICLE STIM HORMONE (test code = 2700) 4.3 IU/L LUTEINIZING HORMONE (test co de = 2776) 15.6 IU/L Georgi DelaneyQlmyvjSFFVNQULT9823-69-10 00:00:00* Test Item Value Reference Range Interpretation Comme nts PROLACTIN (test code = 2800) 17.7 NG/ML Georgi DelaneyTSH, THIRD [id number] 00:00:00* Test Item Value Reference Range Interpretation Comme nts TSH, THIRD GENERATION (test code = 2821) 1.790 UIU/ML Georgi DelaneyFSH + LH [id number] 00:00:00* Test Item Value Reference Range Interpretation Comme nts FOLLICLE STIM HORMONE (test code = 2700) 4.3 IU/L LUTEINIZING HORMONE (test co de = 2776) 15.6 IU/L [id number] 00:00:00* Test Item Value Reference Range Interpretation Comme nts PROLACTIN (test code = 2800) 17.7 NG/ML TSH, THIRD [id number] 00:00:00* Test Item Value Reference Range Interpretation Comme nts TSH, THIRD GENERATION (test code = 2821) 1.790 UIU/ML FSH + LH [id number] 00:00:00* Test Item Value Reference Range Interpretation Comme nts FOLLICLE STIM HORMONE (test code = 2700) 4.3 IU/L LUTEINIZING HORMONE (test co de = 2776) 15.6 IU/L [id number] 00:00:00* Test Item Value Reference Range Interpretation Comme nts PROLACTIN (test code = 2800) 17.7 NG/ML FSH + LH [id number] 00:00:00* Test Item Value Reference Range Interpretation Comme nts FOLLICLE STIM HORMONE (test code = 2700) 4.3 IU/L LUTEINIZING HORMONE (test co de = 2776) 15.6 IU/L Georgi Matthews, THIRD [id number] 00:00:00* Test Item Value Reference Range Interpretation Comme nts TSH, THIRD GENERATION (test code = 2821) 1.790 UIU/ML [id number] 00:00:00* Test Item Value Reference Range Interpretation Comme nts PROLACTIN (test code = 2800) 17.7 NG/ML Georgi TatumH, THIRD [id number] 00:00:00* Test Item Value Reference Range Interpretation Comme nts TSH, THIRD GENERATION (test code = 2821) 1.790 UIU/ML Georgi DelaneyFSH + LH [id number] 00:00:00* Test Item Value Reference Range Interpretation Comme nts FOLLICLE STIM HORMONE (test code = 2700) 4.3 IU/L LUTEINIZING HORMONE (test co de = 2776) 15.6 IU/L Georgi [id number] 00:00:00* Test Item Value Reference Range Interpretation Comme nts PROLACTIN (test code = 2800) 17.7 NG/ML Georgi TatumH, THIRD [id number] 00:00:00* Test Item Value Reference Range Interpretation Comme nts TSH, THIRD GENERATION (test code = 2821) 1.790 UIU/ML Georgi TatumH, THIRD [id number] 04:06:28* Test Item Value Reference Range Interpretation Comme nts TSH, THIRD GENERATION (test code = 2821) 4.000 UIU/ML 0.400-4.100 UNLESS OTHERWISE INDICATED, ALL TESTING PERFORMED ATCLINICAL PATHOLOGY [employer] [address] [place] [id number] DIALYSIS RN: EDVIN BENSON M.D. CLIA NUMBER [id number] [facility] ACCREDITATION NO. [id number] TSH, THIRD [id number] 00:00:00* Test Item Value Reference Range Interpretation Comme nts TSH, THIRD GENERATION (test code = 2821) 4.000 UIU/ML YUNG Pepper [id number] 00:00:00* Test Item Value Reference Range Interpretation Comme nts TSH, THIRD GENERATION (test code = 2821) 4.000 UIU/ML TSH, THIRD [id number] 00:00:00* Test Item Value Reference Range Interpretation Comme nts TSH, THIRD GENERATION (test code = 2821) 4.000 UIU/ML TSH, THIRD [id number] 00:00:00* Test Item Value Reference Range Interpretation Comme nts TSH, THIRD GENERATION (test code = 2821) 4.000 UIU/ML TSH, THIRD [id number] 00:00:00* Test Item Value Reference Range Interpretation Comme nts TSH, THIRD GENERATION (test code = 2821) 4.000 UIU/ML YUNG Pepper [id number] 00:00:00* Test Item Value Reference Range Interpretation Comme nts TSH, THIRD GENERATION (test code = 2821) 4.000 UIU/ML YUNG Pepper [id number] 09:09:54* Test Item Value Reference Range Interpretation Comme nts TSH, THIRD GENERATION (test code = 2821) 9.840 UIU/ML 0.400-4.100 H UNLESS OTHERWISE INDICATED, ALL TESTING PERFORMED [facility] [address] [place] [address] DIALYSIS RN: EDVIN BENSON M.D. CLIA NUMBER [id number] [facility] [place]. [id number] 00:00:00* Test Item Value Reference Range Interpretation Comme nts TSH, THIRD GENERATION (test code = 2821) 9.840 UIU/ML Georgi [id number] 00:00:00* Test Item Value Reference Range Interpretation Comme nts TSH, THIRD GENERATION (test code = 2821) 9.840 UIU/ML [id number] 00:00:00* Test Item Value Reference Range Interpretation Comme nts TSH, THIRD GENERATION (test code = 2821) 9.840 UIU/ML Georgi [id number] 00:00:00* Test Item Value Reference Range Interpretation Comme nts TSH, THIRD GENERATION (test code = 2821) 9.840 UIU/ML [id number] 00:00:00* Test Item Value Reference Range Interpretation Comme nts TSH, THIRD GENERATION (test code = 2821) 9.840 UIU/ML [id number] 00:00:00* Test Item Value Reference Range Interpretation Comme nts TSH, THIRD GENERATION (test code = 2821) 9.840 UIU/ML [id number] 00:00:00* Test Item Value Reference Range Interpretation Comme nts TSH, THIRD GENERATION (test code = 2821) 9.840 UIU/ML [id number] 00:00:00* Test Item Value Reference Range Interpretation Comme nts TSH, THIRD GENERATION (test code = 2821) 9.840 UIU/ML Georgi TatumH, THIRD [id number] 05:03:02* Test Item Value Reference Range Interpretation Comme nts TSH, THIRD GENERATION (test code = 2821) 7.050 UIU/ML 0.400-4.100 H UNLESS OTHERWISE INDICATED, ALL TESTING PER[facility]MED [facility] [address] [place] [address] DIALYSIS RN: EDVIN BENSON M.D. CLIA NUMBER [id number] [facility] [place]. [id number] 00:00:00* Test Item Value Reference Range Interpretation Comme nts TSH, THIRD GENERATION (test code = 2821) 7.050 UIU/ML Georgi [id number] 00:00:00* Test Item Value Reference Range Interpretation Comme nts TSH, THIRD GENERATION (test code = 2821) 7.050 UIU/ML [id number] 00:00:00* Test Item Value Reference Range Interpretation Comme nts TSH, THIRD GENERATION (test code = 2821) 7.050 UIU/ML [id number] 00:00:00* Test Item Value Reference Range Interpretation Comme nts TSH, THIRD GENERATION (test code = 2821) 7.050 UIU/ML [id number] 00:00:00* Test Item Value Reference Range Interpretation Comme nts TSH, THIRD GENERATION (test code = 2821) 7.050 UIU/ML [id number] 00:00:00* Test Item Value Reference Range Interpretation Comme nts TSH, THIRD GENERATION (test code = 2821) 7.050 UIU/ML [id number] 00:00:00* Test Item Value Reference Range Interpretation Comme nts TSH, THIRD GENERATION (test code = 2821) 7.050 UIU/ML Georgi [id number] 00:00:00* Test Item Value Reference Range Interpretation Comme nts TSH, THIRD GENERATION (test code = 2821) 7.050 UIU/ML Georgi DelaneyCBC W/AUTO DIFF WITH [id number] 03:06:39* Test Item Value Reference Range Interpretation [...] 0.00-0.10 ABS NUCLEATED RBCS (test code = 05357) 0.00 K/UL 0.00-0.11 UNLESS OTHER JENSEN INDICATED, ALL TESTING PERFORMED [facility] [address] [place] [address] DIALYSIS RN: EDVIN BENSON M.D. CLIA NUMBER [id number] [facility] [place] [place]. [id number] CBC W/AUTO [id number] 00:00:00* Test Item Value Reference Range Interpretation [...] ABS NUCLEATED RBCS (test cod e = 96168) 0.00 K/UL Georgi DelaneyCBC W/AUTO [id number] 00:00:00* Test Item Value Reference Range Interpretation [...] ABS NUCLEATED RBCS (test cod e = 44173) 0.00 K/UL CBC W/AUTO [id number] 00:00:00* Test Item Value Reference Range Interpretation [...] ABS NUCLEATED RBCS (test cod e = 66875) 0.00 K/UL CBC W/AUTO [id number] 00:00:00* Test Item Value Reference Range Interpretation [...] ABS NUCLEATED RBCS (test cod e = 80420) 0.00 K/UL CBC W/AUTO [id number] 00:00:00* Test Item Value Reference Range Interpretation [...] ABS NUCLEATED RBCS (test cod e = 31892) 0.00 K/UL CBC W/AUTO [id number] 00:00:00* Test Item Value Reference Range Interpretation [...] ABS NUCLEATED RBCS (test cod e = 59665) 0.00 K/UL [facility] [id number] 00:00:00* Test Item Value Reference Range Interpretation [...] ABS NUCLEATED RBCS (test cod e = 45558) 0.00 K/UL CBC W/AUTO [id number] 00:00:00* Test Item Value Reference Range Interpretation [...] ABS NUCLEATED RBCS (test cod e = 05403) 0.00 K/UL Georgi F [facility] W/AUTO DIFF WITH [id number] 10:01:09* Test Item Value Reference Range Interpretation [...] 0.00-0.10 ABS NUCLEATED RBCS (test code = 18514) TEST NOT PERFORMED K/UL 0.00-0.11 COMMENTS (test code = 1016) TEST NOT PERFORMED CBC W/AUTO [id number] 00:00:00* Test Item Value Reference Range Interpretation [...] K/UL ABS NUCLEATED RBCS (test code = 79046) TEST NOT PERFORMED K/UL COMMENTS (test code = 1016) TEST NOT PERFORMED [facility] W/AUTO [id number] 00:00:00* Test Item Value Reference Range Interpretation [...] K/UL ABS NUCLEATED RBCS (test code = 83808) TEST NOT PERFORMED K/UL COMMENTS (test code = 1016) TEST NOT PERFORMED CBC W/AUTO [id number] 00:00:00* Test Item Value Reference Range Interpretation [...] K/UL ABS NUCLEATED RBCS (test code = 33853) TEST NOT PERFORMED K/UL COMMENTS (test code = 1016) TEST NOT PERFORMED CBC W/AUTO [id number] 00:00:00* Test Item Value Reference Range Interpretation [...] K/UL ABS NUCLEATED RBCS (test code = 21472) TEST NOT PERFORMED K/UL COMMENTS (test code = 1016) TEST NOT PERFORMED CBC W/AUTO [id number] 00:00:00* Test Item Value Reference Range Interpretation [...] K/UL ABS NUCLEATED RBCS (test code = 97940) TEST NOT PERFORMED K/UL COMMENTS (test code = 1016) TEST NOT PERFORMED CBC W/AUTO [id number] 00:00:00* Test Item Value Reference Range Interpretation [...] K/UL ABS NUCLEATED RBCS (test code = 23786) TEST NOT PERFORMED K/UL COMMENTS (test code = 1016) TEST NOT PERFORMED CBC W/AUTO [id number] 00:00:00* Test Item Value Reference Range Interpretation [...] K/UL ABS NUCLEATED RBCS (test code = 38831) TEST NOT PERFORMED K/UL COMMENTS (test code = 1016) TEST NOT PERFORMED [facility] W/AUTO [id number] 00:00:00* Test Item Value Reference Range Interpretation [...] K/UL ABS NUCLEATED RBCS (test code = 38381) TEST NOT PERFORMED K/UL COMMENTS (test code = 1016) TEST NOT PERFORMED Georgi Matthews, THIRD [id number] 06:29:33* Test Item Value Reference Range Interpretation Comme nts TSH, THIRD GENERATION (test code = 2821) 7.090 UIU/ML 0.400-4.100 H UNLESS OTHERWISE INDICATED, ALL TESTING PERFORMED [facility]CLIN[facility] [address] [place] [address] DIALYSIS RN: EDVIN BENSON M.D. CLIA NUMBER [id number] [facility] [place]. [id number] LIPID [id number] 04:58:53* Test Item Value Reference Range Interpretation [...] SPECIMENS. FOR MOREINFORMATION, SEE CLIENT ANNOUNCEMENT AT [email or web address] RISK RATIO LDL/HDL (test code = 2238) 3.57 RATIO <3.22 H COMPREHENSIVE METABOLIC [id number] 04:58:53* Test Item Value Reference Range Interpretation Comme nts GLUCOSE (test code = 2217) 85 MG/DL 70-99 BUN (test code = 2208) 12 MG/DL 6-20 CREATININE (test code = 221) 0.59 MG/DL 0.60-1.30 L eGFR (2020 CKD-EPI) (test code = 19604) 123 ML/MIN/1.73 >60 CALC BUN/CREAT (test code = 223) 20 RATIO 6-28 SODIUM (test code = 223) 141 MEQ/L 133-146 POTASSIUM (test code = 2228) 4.5 MEQ/L 3.5-5.4 CHLORIDE (test code = 221) 103 MEQ/L 95-107 CARBON DIOXIDE (test code = 220) 25 MEQ/L 19-31 CALCIUM (test code = 220) 9.3 MG/DL 8.5-10.5 PROTEIN, TOTAL (test code = 2228) 6.6 G/DL 6.1-8.3 ALBUMIN (test code = 2200) 4.2 G/DL 3.5-5.2 CALC GLOBULIN (test code = 2240) 2.4 G/DL 1.9-3.7 CALC A/G RATIO (test code = 2233) 1.8 RATIO 1.0-2.6 BILIRUBIN, TOTAL (test code = 220) <0.2 MG/DL See_Comment [Automated me ssage] The system which generated this result transmitted reference range: <=1.2. The reference range was not used to interpret this result as normal/abnormal. ALKALINE PHOSPHATASE (test code = 2203) 89 U/L 40-114 AST (test code = 2218) 12 U/L 9-40 ALT (test code = 2219) 16 U/L 5-40 LIPID [id number] 00:00:00* Test Item Value Reference Range Interpretation Comme nts CHOLESTEROL (test code = 2210) 235 MG/DL TRIGLYCERIDES (test code = 2232) 127 MG/DL HDL CHOLESTEROL (test code = 2220) 46 MG/DL CALC LDL CHOL (test code = 2237) 164 MG/DL RISK RATIO LDL/HDL (test cod e = 2238) 3.57 RATIO Georgi F AustinCOMPREHENSIVE METABOLIC [id number] 00:00:00* Test Item Value Reference Range Interpretation Comme nts GLUCOSE (test code = 2217) 85 MG/DL BUN (test code = 2207) 12 MG/DL CREATININE (test code = 2214) 0.59 MG/DL eGFR (2020 CKD-EPI) (test code = 52723) 123 ML/MIN/1.73 CALC BUN/CREAT (test code = [...] (test code = 2219) 16 U/L Georgi [id number] 00:00:00* Test Item Value Reference Range Interpretation Comme nts TSH, THIRD GENERATION (test code = 2821) 7.090 UIU/ML Georgi Johnson SeekonkLIPID [id number] 00:00:00* Test Item Value Reference Range Interpretation Comme nts CHOLESTEROL (test code = 2210) 235 MG/DL TRIGLYCERIDES (test code = 2232) 127 MG/DL HDL CHOLESTEROL (test code = 2220) 46 MG/DL CALC LDL CHOL (test code = 2237) 164 MG/DL RISK RATIO LDL/HDL (test cod e = 2238) 3.57 RATIO COMPREHENSIVE METABOLIC [id number] 00:00:00* Test Item Value Reference Range Interpretation Comme nts GLUCOSE (test code = 2217) 85 MG/DL BUN (test code = 2208) 12 MG/DL CREATININE (test code = 2214) 0.59 MG/DL eGFR (2020 CKD-EPI) (test code = 11723) 123 ML/MIN/1.73 CALC BUN/CREAT (test code = [...] ALT (test code = 2219) 16 U/L [id number] 00:00:00* Test Item Value Reference Range Interpretation Comme nts TSH, THIRD GENERATION (test code = 2821) 7.090 UIU/ML LIPID [id number] 00:00:00* Test Item Value Reference Range Interpretation Comme nts CHOLESTEROL (test code = 2210) 235 MG/DL TRIGLYCERIDES (test code = 2232) 127 MG/DL HDL CHOLESTEROL (test code = 2220) 46 MG/DL CALC LDL CHOL (test code = 2237) 164 MG/DL RISK RATIO LDL/HDL (test cod e = 2238) 3.57 RATIO COMPREHENSIVE METABOLIC [id number] 00:00:00* Test Item Value Reference Range Interpretation Comme nts GLUCOSE (test code = 2217) 85 MG/DL BUN (test code = 2208) 12 MG/DL CREATININE (test code = 2214) 0.59 MG/DL eGFR (2020 CKD-EPI) (test code = 76404) 123 ML/MIN/1.73 CALC BUN/CREAT (test code = [...] ALT (test code = 2219) 16 U/L [id number] 00:00:00* Test Item Value Reference Range Interpretation Comme nts TSH, THIRD GENERATION (test code = 2821) 7.090 UIU/ML LIPID [id number] 00:00:00* Test Item Value Reference Range Interpretation Comme nts CHOLESTEROL (test code = 2210) 235 MG/DL TRIGLYCERIDES (test code = 2232) 127 MG/DL HDL CHOLESTEROL (test code = 2220) 46 MG/DL CALC LDL CHOL (test code = 2237) 164 MG/DL RISK RATIO LDL/HDL (test cod e = 2238) 3.57 RATIO COMPREHENSIVE METABOLIC [id number] 00:00:00* Test Item Value Reference Range Interpretation Comme nts GLUCOSE (test code = 2217) 85 MG/DL BUN (test code = 2208) 12 MG/DL CREATININE (test code = 2214) 0.59 MG/DL eGFR (2020 CKD-EPI) (test code = 98209) 123 ML/MIN/1.73 CALC BUN/CREAT (test code = [...] ALT (test code = 2219) 16 U/L [id number] 00:00:00* Test Item Value Reference Range Interpretation Comme nts TSH, THIRD GENERATION (test code = 2821) 7.090 UIU/ML LIPID [id number] 00:00:00* Test Item Value Reference Range Interpretation Comme nts CHOLESTEROL (test code = 2210) 235 MG/DL TRIGLYCERIDES (test code = 2232) 127 MG/DL HDL CHOLESTEROL (test code = 2220) 46 MG/DL CALC LDL CHOL (test code = 2237) 164 MG/DL RISK RATIO LDL/HDL (test cod e = 2238) 3.57 RATIO COMPREHENSIVE METABOLIC [id number] 00:00:00* Test Item Value Reference Range Interpretation Comme nts GLUCOSE (test code = 2217) 85 MG/DL BUN (test code = 2208) 12 MG/DL CREATININE (test code = 2214) 0.59 MG/DL eGFR (2020 CKD-EPI) (test code = 97671) 123 ML/MIN/1.73 CALC BUN/CREAT (test code = [...] ALT (test code = 2219) 16 U/L [id number] 00:00:00* Test Item Value Reference Range Interpretation Comme nts TSH, THIRD GENERATION (test code = 2821) 7.090 UIU/ML LIPID [id number] 00:00:00* Test Item Value Reference Range Interpretation Comme nts CHOLESTEROL (test code = 2210) 235 MG/DL TRIGLYCERIDES (test code = 2232) 127 MG/DL HDL CHOLESTEROL (test code = 2220) 46 MG/DL CALC LDL CHOL (test code = 2237) 164 MG/DL RISK RATIO LDL/HDL (test cod e = 2238) 3.57 RATIO COMPREHENSIVE METABOLIC [id number] 00:00:00* Test Item Value Reference Range Interpretation Comme nts GLUCOSE (test code = 2217) 85 MG/DL BUN (test code = 2208) 12 MG/DL CREATININE (test code = 2214) 0.59 MG/DL eGFR (2020 CKD-EPI) (test code = 69791) 123 ML/MIN/1.73 CALC BUN/CREAT (test code = [...] ALT (test code = 2219) 16 U/L [id number] 00:00:00* Test Item Value Reference Range Interpretation Comme nts TSH, THIRD GENERATION (test code = 2821) 7.090 UIU/ML LIPID [id number] 00:00:00* Test Item Value Reference Range Interpretation Comme nts CHOLESTEROL (test code = 2210) 235 MG/DL TRIGLYCERIDES (test code = 2232) 127 MG/DL HDL CHOLESTEROL (test code = 2220) 46 MG/DL CALC LDL CHOL (test code = 2237) 164 MG/DL RISK RATIO LDL/HDL (test cod e = 2238) 3.57 RATIO Georgi F RhettCOMPREHENSIVE METABOLIC [id number] 00:00:00* Test Item Value Reference Range Interpretation Comme nts GLUCOSE (test code = 2217) 85 MG/DL BUN (test code = 2208) 12 MG/DL CREATININE (test code = 2214) 0.59 MG/DL eGFR (2020 CKD-EPI) (test code = 57737) 123 ML/MIN/1.73 CALC BUN/CREAT (test code = [...] (test code = 2219) 16 U/L Georgi [id number] 00:00:00* Test Item Value Reference Range Interpretation Comme nts TSH, THIRD GENERATION (test code = 2821) 7.090 UIU/ML Georgi Johnson SeekonkLIPID [id number] 00:00:00* Test Item Value Reference Range Interpretation Comme nts CHOLESTEROL (test code = 2210) 235 MG/DL TRIGLYCERIDES (test code = 2232) 127 MG/DL HDL CHOLESTEROL (test code = 2220) 46 MG/DL CALC LDL CHOL (test code = 2237) 164 MG/DL RISK RATIO LDL/HDL (test cod e = 2238) 3.57 RATIO Georgi DelaneyCOMPREHENSIVE METABOLIC [id number] 00:00:00* Test Item Value Reference Range Interpretation Comme nts GLUCOSE (test code = 2217) 85 MG/DL BUN (test code = 2208) 12 MG/DL CREATININE (test code = 2214) 0.59 MG/DL eGFR (2020 CKD-EPI) (test code = 56705) 123 ML/MIN/1.73 CALC BUN/CREAT (test code = [...] (test code = 2219) 16 U/L Georgi [id number] 00:00:00* Test Item Value Reference Range Interpretation Comme nts TSH, THIRD GENERATION (test code = 2821) 7.090 UIU/ML Georgi CrespoOPONIN [id number] 21:03:34* Test Item Value Reference Range Interpretation Comments TROPONIN I (test code = 9760347084) 0.000 ng/mL See_Comment [Automated message] The system [...] of biotin. Lab Interpretation (test code = 25829-8) [id number] 20:45:29* Test Item Value Reference Range Interpretation Comments D-DIMER (test code = 3028120021) See_Comment [Automated message] The system which generated [...] a diagnosis. Lab Interpretation (test code = 10719-4) Normal [facility] WITH [id number] 19:14:30* Test Item Value Reference Range Interpretation Comme nts WBC (test code = 6690-2) See_Comment [Automated TRA] The system which generated this result transmitted reference range: 4.30 - 11.10 10*3/?L. The reference range was not used to interpret this result as normal/abnormal. RBC (test code = 789-8) See_Comment [Automated TRA] The system which generated this result transmitted [...] 32.1 g/dL 31.6-35.1 RDW-SD (test code = 10096-6) 42.2 fL 39.0-49.9 RDW-CV (test code = 788-0) 13.1 % 12.0-15.5 PLT (test code = 777-3) See_Comment [Capigami] The system which generated this result transmitted reference range: 166 - 358 10*3/?L. The reference range was not used to interpret this result as normal/abnormal. MPV (test code = 36985-9) 9.6 fL 9.5-12.9 NRBC/100 WBC (test code = 6380564799) See_Comment [Automated me ssage] The system which generated this result transmitted reference range: 0.0 - 10.0 /100 WBCs. The reference range was not used to interpret this result as normal/abnormal. NRBC x10^3 (test code = 1810296992) <0.01 See_Comment [Automated messa ge] The system which generated this result transmitted reference range: 10*3/?L. The reference range was not used to interpret this result as normal/abnormal. GRAN MAT (NEUT) % (test code = 770-8) 43.7 % IMM GRAN % (test code = 0138567949) 0.50 % LYMPH % (test code = 736-9) 46.2 % MONO % (test code = 5905-5) 6.2 % EOS % (test code = 713-8) 2.8 % BASO % (test code = 706-2) 0.6 % GRAN MAT x10^3(ANC) (test code = 0017059214) 4.77 10*3/uL 1.88-7.09 IMM GRAN x10^3 (test code = 9340401372) 0.05 10*3/uL 0.00-0.06 LYMPH x10^3 (test code = 731-0) 5.05 10*3/uL 1.32-3.29 H MONO x10^3 (test code = 742-7) 0.68 10*3/uL 0.33-0.92 EOS x10^3 (test code = 711-2) 0.31 10*3/uL 0.03-0.39 BASO x10^3 (test code = 704-7) 0.07 10*3/uL 0.01-0.07 Lab Interpretation (test code = 09287-1) Abnormal [facility]ROCIOGR[facility]ERV[facility] [id number] 18:39:27* Test Item Value Reference Range Interpretation Comments TROPONIN I (test code = 2582726149) 0.001 ng/mL See_Comment [Automated message] The system [...] of biotin. Lab Interpretation (test code = 90255-6) Normal [facility]. METABOLIC PANEL (33767)2021-07-27 18:29:25* Test Item Value Reference Range Interpretation Comme nts NA (test code = 6496180255) 137 mmol/L 135-145 K (test code = 0468200123) 4.5 mmol/L 3.5-5.0 CL (test code = 8815856339) 104 mmol/L 98-108 CO2 TOTAL (test code = 1864170530) 26 mmol/L 23-31 AGAP (test code = 2478977847) 2-16 BUN (test code = 5357325391) 10 mg/dL 7-23 GLUCOSE (test code = 1563603858) 87 mg/dL 70-110 CREATININE (test code = 0564520499) 0.59 mg/dL 0.50-1.04 TOTAL BILI (test code = 2787328031) 0.4 mg/dL 0.1-1.1 CALCIUM (test code = 5859270489) 9.6 mg/dL 8.6-10.6 T PROTEIN (test code = 7888083228) 7.1 g/dL 6.3-8.2 ALBUMIN (test code = 5539553613) 4.2 g/dL 3.5-5.0 ALK PHOS (test code = 7979593335) 88 U/L 34-122 ALTv (test code = 1742-6) 22 U/L 5-35 AST(SGOT) (test code = 0594791138) 25 U/L 13-40 eGFR (test code = 0540356088) mL/min/1.73m2 MACI (test code = MACI) Association [...] or urine or abnormalities in imaging tests). [facility] Worth[facility]2021-12-15 18:29:25* Test Item Value Reference Range Interpretation Comme [facility] MAGNESIUM (test code = 5641635004) 1.8 mg/dL 1.7-2.4 Lab Interpretation (test cod e = 39829-3) Normal [facility] WorthPO[facility] [id number] 18:28:00* Test Item Value Reference Range Interpretation Comme nts POCT PREG (test code = 1605) negative POCT PREG LOT # (test code = 3575) [id number] POCT PREG TEST DATE ( test code = 3576) 2022-09-12 Lab Interpretation (test cod e = 84401-1) [facility] [id number] 19:26:00* Test Item Value Reference Range Interpretation Comme nts POCT PREG (test code = 1605) Negative On board controls acceptable with C Line (test code = 3574) Yes POCT PREG LOT # (test code = 3575) POCT PREG TEST DATE ( test code = 3576) Lab Interpretation (test cod e = 12180-6) [facility] [id number] 19:26:00* Test Item Value Reference Range Interpretation Comme nts POCT PREG (test code = 1605) Negative On board controls acceptable with C Line (test code = 3574) Yes POCT PREG LOT # (test code = 3575) POCT PREG TEST DATE ( test code = 3576) Lab Interpretation (test cod e = 54756-9) [facility] [id number] 19:26:00* Test Item Value Reference Range Interpretation Comme nts POCT PREG (test code = 1605) Negative On board controls acceptable with C Line (test code = 3574) Yes POCT PREG LOT # (test code = 3575) POCT PREG TEST DATE ( test code = 3576) Lab Interpretation (test cod e = 05895-0) [facility] by RT-PCR (HIGH RISK) 2020-12-15 00:00:00* Test Item Value Reference Range Interpretation Comme nts SARS-CoV-2 INTERPRETATION (t est code = 26301) NEGATIVE SOURCE (test code = 26851) NOT SPECIFIED Georgi Johnson LsseufJBNK-NbU-8 (COVID-19) by RT-PCR (HIGH RISK)2020-12-15 00:00:00* Test Item Value Reference Range Interpretation Comme nts SARS-CoV-2 INTERPRETATION (t est code = 48773) NEGATIVE SOURCE (test code = 55025) NOT SPECIFIED Georgi Johnson CfbzwjFBAD-CdX-7 (COVID-19) by RT-PCR (HIGH RISK)2020-12-15 00:00:00* Test Item Value Reference Range Interpretation Comme nts SARS-CoV-2 INTERPRETATION (t est code = 96661) NEGATIVE SOURCE (test code = 65144) NOT SPECIFIED SARS-CoV-2 (COVID-19) by RT-PCR (HIGH RISK)2020-12-15 00:00:00* Test Item Value Reference Range Interpretation Comme nts SARS-CoV-2 INTERPRETATION (t est code = 08175) NEGATIVE SOURCE (test code = 59717) NOT SPECIFIED SARS-CoV-2 (COVID-19) by RT-PCR (HIGH RISK)2020-12-15 00:00:00* Test Item Value Reference Range Interpretation Comme nts SARS-CoV-2 INTERPRETATION (t est code = 95553) NEGATIVE SOURCE (test code = 97127) NOT SPECIFIED SARS-CoV-2 (COVID-19) by RT-PCR (HIGH RISK)2020-12-15 00:00:00* Test Item Value Reference Range Interpretation Comme nts SARS-CoV-2 INTERPRETATION (t est code = 74838) NEGATIVE SOURCE (test code = 20886) NOT SPECIFIED SARS-CoV-2 (COVID-19) by RT-PCR (HIGH RISK)2020-12-15 00:00:00* Test Item Value Reference Range Interpretation Comme nts SARS-CoV-2 INTERPRETATION (t est code = 90610) NEGATIVE SOURCE (test code = 65876) NOT SPECIFIED SARS-CoV-2 (COVID-19) by RT-PCR (HIGH RISK)2020-12-15 00:00:00* Test Item Value Reference Range Interpretation Comme nts SARS-CoV-2 INTERPRETATION (t est code = 62105) NEGATIVE SOURCE (test code = 00837) NOT SPECIFIED Georgi F [place] [id number] 20:47:00* Test Item Value Reference Range Interpretation Comme nts POCT PREG (test code = 1605) Negative On board controls acceptable with C Line (test code = 3574) Yes POCT PREG LOT # (test code = 3575) POCT PREG TEST DATE ( test code = 3576) Lab Interpretation (test cod e = 33526-0) [facility] [id number] 20:47:00* Test Item Value Reference Range Interpretation Comme nts POCT PREG (test code = 1605) Negative On board controls acceptable with C Line (test code = 3574) Yes POCT PREG LOT # (test code = 3575) POCT PREG TEST DATE ( test code = 3576) Lab Interpretation (test cod e = 65397-6) [facility] [id number] 00:00:00* Test Item Value Reference Range Interpretation Comme nts HIV 1/2 4TH GEN, RFLX CONF ( test code = 3514) NON-REACTIVE Georgi DelaneyGC AND CHLAMYDIA AMPLIFIED, [id number] 00:00:00* Test Item Value Reference Range Interpretation Comme nts GONORRHEA, TMA (test code = 29471) NEGATIVE CHLAMYDIA, TMA (test code = 59477) NEGATIVE Georgi DelaneyPAP TEST, THINPREP, [id number] 00:00:00* Test Item Value Reference Range Interpretation Comme nts SOURCE: (test code = 8001) Endocervical SLIDES: (test code = 8011) 1 LMP: (test code = 8021) 10/2020 SPECIMEN ADEQUACY: (test code = 73877) (NOTE) INTERPRETATION: (test code = 39422) NILM/NO EPITH. ABNORMALITY;SEE BELOW MARKET SUPERINTENDENT: (test code = 8101) RANJEET Riley(ASCP)IAC LOCATION: (test code = 31436) (NOTE) CPT: (test code = 8140) (NOTE) Georgi DelaneyACUTE HEPATITIS [id number] 00:00:00* Test Item Value Reference Range Interpretation Comme nts HEPATITIS A IgM (test code = 35887) NON-REACTIVE HEPATITIS B CORE IgM (test c ode = 4644) NON-REACTIVE HEPATITIS B SURF AG (test co de = 2739) NON-REACTIVE HEPATITIS C ANTIBODY (test c ode = 4675) NON-REACTIVE INTERPRETATION HEPATITIS A: (test code = 2552) (NOTE) INTERPRETATION HEPATITIS B: (test code = 15457) (NOTE) INTERPRETATION HEPATITIS C: (test code = 98067) (NOTE) Georgi [id number] 00:00:00* Test Item Value Reference Range Interpretation Comme nts RPR RESULT (test code = 3501) NON-REACTIVE RPR TITER (test code = 3500) NOT INDIC. TITER Georgi DelaneyHPV HIGH RISK WITH GENOTYPE, [id number] 00:00:00* Test Item Value Reference Range Interpretation Comme nts HPV HIGH RISK INTERP (test c ode = 58582) NEGATIVE HPV 16 (test code = 62750) NEGATIVE HPV 18 (test code = 59482) NEGATIVE HPV, HR, OTHER GENOTYPES (te st code = 02460) NEGATIVE Georgi DelaneyVAGINAL PATHOGENS DNA [id number] 00:00:00* Test Item Value Reference Range Interpretation Comme nts ANNE MARIE SPECIES (test code = 99935) NEGATIVE G. VAGINALIS (test code = ) NEGATIVE T. VAGINALIS (test code = 18047) NEGATIVE Georgi DelaneyGC AND CHLAMYDIA AMPLIFIED, [id number] 00:00:00* Test Item Value Reference Range Interpretation Comme nts GONORRHEA, TMA (test code = 15723) NEGATIVE CHLAMYDIA, TMA (test code = 80188) NEGATIVE HIV AB/AG COMBO RFLX [id number] 00:00:00* Test Item Value Reference Range Interpretation Comme nts HIV 1/2 4TH GEN, RFLX CONF ( test code = 3514) NON-REACTIVE ACUTE HEPATITIS [id number] 00:00:00* Test Item Value Reference Range Interpretation Comme nts HEPATITIS A IgM (test code = 22481) NON-REACTIVE HEPATITIS B CORE IgM (test c ode = 4644) NON-REACTIVE HEPATITIS B SURF AG (test co de = 2739) NON-REACTIVE HEPATITIS C ANTIBODY (test c ode = 4675) NON-REACTIVE INTERPRETATION HEPATITIS A: (test code = 2552) (NOTE) INTERPRETATION HEPATITIS B: (test code = 38286) (NOTE) INTERPRETATION HEPATITIS C: (test code = 01385) (NOTE) PAP TEST, THINPREP, [id number] 00:00:00* Test Item Value Reference Range Interpretation Comme nts SOURCE: (test code = 8001) Endocervical SLIDES: (test code = 8011) 1 LMP: (test code = 8021) 10/2020 SPECIMEN ADEQUACY: (test code = 48209) (NOTE) INTERPRETATION: (test code = 03568) NILM/NO EPITH. ABNORMALITY;SEE BELOW MARKET SUPERINTENDENT: (test code = 8101) RANJEET Riley(ASCP)IAC LOCATION: (test code = 02855) (NOTE) CPT: (test code = 8140) (NOTE) [id number] 00:00:00* Test Item Value Reference Range Interpretation Comme nts RPR RESULT (test code = 3501) NON-REACTIVE RPR TITER (test code = 3500) NOT INDIC. TITER HPV HIGH RISK WITH GENOTYPE, [id number] 00:00:00* Test Item Value Reference Range Interpretation Comme nts HPV HIGH RISK INTERP (test c ode = 39092) NEGATIVE HPV 16 (test code = 11497) NEGATIVE HPV 18 (test code = 88818) NEGATIVE HPV, HR, OTHER GENOTYPES (te st code = 84459) NEGATIVE VAGINAL PATHOGENS DNA [id number] 00:00:00* Test Item Value Reference Range Interpretation Comme nts ANNE MARIE SPECIES (test code = 35790) NEGATIVE G. VAGINALIS (test code = 31328) NEGATIVE T. VAGINALIS (test code = 68197) NEGATIVE HIV AB/AG COMBO RFLX [id number] 00:00:00* Test Item Value Reference Range Interpretation Comme nts HIV 1/2 4TH GEN, RFLX CONF ( test code = 3514) NON-REACTIVE GC AND CHLAMYDIA AMPLIFIED, [id number] 00:00:00* Test Item Value Reference Range Interpretation Comme nts GONORRHEA, TMA (test code = 83925) NEGATIVE CHLAMYDIA, TMA (test code = 97226) NEGATIVE ACUTE HEPATITIS [id number] 00:00:00* Test Item Value Reference Range Interpretation Comme nts HEPATITIS A IgM (test code = 48076) NON-REACTIVE HEPATITIS B CORE IgM (test c ode = 4644) NON-REACTIVE HEPATITIS B SURF AG (test co de = 2739) NON-REACTIVE HEPATITIS C ANTIBODY (test c ode = 4675) NON-REACTIVE INTERPRETATION HEPATITIS A: (test code = 2552) (NOTE) INTERPRETATION HEPATITIS B: (test code = 57640) (NOTE) INTERPRETATION HEPATITIS C: (test code = 29942) (NOTE) PAP TEST, THINPREP, [id number] 00:00:00* Test Item Value Reference Range Interpretation Comme nts SOURCE: (test code = 8001) Endocervical SLIDES: (test code = 8011) 1 LMP: (test code = 8021) 10/2020 SPECIMEN ADEQUACY: (test code = 22710) (NOTE) INTERPRETATION: (test code = 71939) NILM/NO EPITH. ABNORMALITY;SEE BELOW MARKET SUPERINTENDENT: (test code = 8101) RANJEET Riley(ASCP)IAC LOCATION: (test code = 71621) (NOTE) CPT: (test code = 8140) (NOTE) HPV HIGH RISK WITH GENOTYPE, [id number] 00:00:00* Test Item Value Reference Range Interpretation Comme nts HPV HIGH RISK INTERP (test c ode = 43258) NEGATIVE HPV 16 (test code = 46407) NEGATIVE HPV 18 (test code = 73485) NEGATIVE HPV, HR, OTHER GENOTYPES (te st code = 86175) NEGATIVE [id number] 00:00:00* Test Item Value Reference Range Interpretation Comme nts RPR RESULT (test code = 3501) NON-REACTIVE RPR TITER (test code = 3500) NOT INDIC. TITER VAGINAL PATHOGENS DNA [id number] 00:00:00* Test Item Value Reference Range Interpretation Comme nts ANNE MARIE SPECIES (test code = 20451) NEGATIVE G. VAGINALIS (test code = 96513) NEGATIVE T. VAGINALIS (test code = 94154) NEGATIVE GC AND CHLAMYDIA AMPLIFIED, [id number] 00:00:00* Test Item Value Reference Range Interpretation Comme nts GONORRHEA, TMA (test code = 06544) NEGATIVE CHLAMYDIA, TMA (test code = 70533) NEGATIVE HIV AB/AG COMBO RFLX [id number] 00:00:00* Test Item Value Reference Range Interpretation Comme nts HIV 1/2 4TH GEN, RFLX CONF ( test code = 3514) NON-REACTIVE ACUTE HEPATITIS [id number] 00:00:00* Test Item Value Reference Range Interpretation Comme nts HEPATITIS A IgM (test code = 42617) NON-REACTIVE HEPATITIS B CORE IgM (test c ode = 4644) NON-REACTIVE HEPATITIS B SURF AG (test co de = 2739) NON-REACTIVE HEPATITIS C ANTIBODY (test c ode = 4675) NON-REACTIVE INTERPRETATION HEPATITIS A: (test code = 2552) (NOTE) INTERPRETATION HEPATITIS B: (test code = 80606) (NOTE) INTERPRETATION HEPATITIS C: (test code = 11493) (NOTE) PAP TEST, THINPREP, [id number] 00:00:00* Test Item Value Reference Range Interpretation Comme nts SOURCE: (test code = 8001) Endocervical SLIDES: (test code = 8011) 1 LMP: (test code = 8021) 10/2020 SPECIMEN ADEQUACY: (test code = 60341) (NOTE) INTERPRETATION: (test code = 20021) NILM/NO EPITH. ABNORMALITY;SEE BELOW MARKET SUPERINTENDENT: (test code = 8101) RANJEET Riley(ASCP)IAC LOCATION: (test code = 12812) (NOTE) CPT: (test code = 8140) (NOTE) HPV HIGH RISK WITH GENOTYPE, [id number] 00:00:00* Test Item Value Reference Range Interpretation Comme nts HPV HIGH RISK INTERP (test c ode = 50559) NEGATIVE HPV 16 (test code = 34464) NEGATIVE HPV 18 (test code = 93031) NEGATIVE HPV, HR, OTHER GENOTYPES (te st code = 99568) NEGATIVE [id number] 00:00:00* Test Item Value Reference Range Interpretation Comme nts RPR RESULT (test code = 3501) NON-REACTIVE RPR TITER (test code = 3500) NOT INDIC. TITER VAGINAL PATHOGENS DNA [id number] 00:00:00* Test Item Value Reference Range Interpretation Comme nts ANNE MARIE SPECIES (test code = 82270) NEGATIVE G. VAGINALIS (test code = 12412) NEGATIVE T. VAGINALIS (test code = 13178) NEGATIVE HIV AB/AG COMBO RFLX [id number] 00:00:00* Test Item Value Reference Range Interpretation Comme nts HIV 1/2 4TH GEN, RFLX CONF ( test code = 3514) NON-REACTIVE Georgi F AustinGC AND CHLAMYDIA AMPLIFIED, [id number] 00:00:00* Test Item Value Reference Range Interpretation Comme nts GONORRHEA, TMA (test code = 70848) NEGATIVE CHLAMYDIA, TMA (test code = 64439) NEGATIVE HIV AB/AG COMBO RFLX [id number] 00:00:00* Test Item Value Reference Range Interpretation Comme nts HIV 1/2 4TH GEN, RFLX CONF ( test code = 3514) NON-REACTIVE PAP TEST, THINPREP, [id number] 00:00:00* Test Item Value Reference Range Interpretation Comme nts SOURCE: (test code = 8001) Endocervical SLIDES: (test code = 8011) 1 LMP: (test code = 8021) 10/2020 SPECIMEN ADEQUACY: (test code = 82545) (NOTE) INTERPRETATION: (test code = 75545) NILM/NO EPITH. ABNORMALITY;SEE BELOW MARKET SUPERINTENDENT: (test code = 8101) RANJEET Riley(ASCP)IAC LOCATION: (test code = 47863) (NOTE) CPT: (test code = 8140) (NOTE) ACUTE HEPATITIS [id number] 00:00:00* Test Item Value Reference Range Interpretation Comme nts HEPATITIS A IgM (test code = 84881) NON-REACTIVE HEPATITIS B CORE IgM (test c ode = 4644) NON-REACTIVE HEPATITIS B SURF AG (test co de = 2739) NON-REACTIVE HEPATITIS C ANTIBODY (test c ode = 4675) NON-REACTIVE INTERPRETATION HEPATITIS A: (test code = 2552) (NOTE) INTERPRETATION HEPATITIS B: (test code = 73648) (NOTE) INTERPRETATION HEPATITIS C: (test code = 61277) (NOTE) [id number] 00:00:00* Test Item Value Reference Range Interpretation Comme nts RPR RESULT (test code = 3501) NON-REACTIVE RPR TITER (test code = 3500) NOT INDIC. TITER HPV HIGH RISK WITH GENOTYPE, [id number] 00:00:00* Test Item Value Reference Range Interpretation Comme nts HPV HIGH RISK INTERP (test c ode = 17578) NEGATIVE HPV 16 (test code = 81252) NEGATIVE HPV 18 (test code = 04566) NEGATIVE HPV, HR, OTHER GENOTYPES (te st code = 23936) NEGATIVE VAGINAL PATHOGENS DNA [id number] 00:00:00* Test Item Value Reference Range Interpretation Comme nts ANNE MARIE SPECIES (test code = 15259) NEGATIVE G. VAGINALIS (test code = 95908) NEGATIVE T. VAGINALIS (test code = 17152) NEGATIVE GC AND CHLAMYDIA AMPLIFIED, [id number] 00:00:00* Test Item Value Reference Range Interpretation Comme nts GONORRHEA, TMA (test code = 48704) NEGATIVE CHLAMYDIA, TMA (test code = 85791) NEGATIVE HIV AB/AG COMBO RFLX [id number] 00:00:00* Test Item Value Reference Range Interpretation Comme nts HIV 1/2 4TH GEN, RFLX CONF ( test code = 3514) NON-REACTIVE ACUTE HEPATITIS [id number] 00:00:00* Test Item Value Reference Range Interpretation Comme nts HEPATITIS A IgM (test code = 66296) NON-REACTIVE HEPATITIS B CORE IgM (test c ode = 4644) NON-REACTIVE HEPATITIS B SURF AG (test co de = 9289) NON-REACTIVE HEPATITIS C ANTIBODY (test c ode = 4605) NON-REACTIVE INTERPRETATION HEPATITIS A: (test code = 2552) (NOTE) INTERPRETATION HEPATITIS B: (test code = 16258) (NOTE) INTERPRETATION HEPATITIS C: (test code = 99802) (NOTE) PAP TEST, THINPREP, [id number] 00:00:00* Test Item Value Reference Range Interpretation Comme nts SOURCE: (test code = 8001) Endocervical SLIDES: (test code = 8011) 1 LMP: (test code = 8021) 10/2020 SPECIMEN ADEQUACY: (test code = 49284) (NOTE) INTERPRETATION: (test code = 94484) NILM/NO EPITH. ABNORMALITY;SEE BELOW MARKET SUPERINTENDENT: (test code = 8101) RANJEET Riley(ASCP)IAC LOCATION: (test code = 92652) (NOTE) CPT: (test code = 8140) (NOTE) HPV HIGH RISK WITH GENOTYPE, [id number] 00:00:00* Test Item Value Reference Range Interpretation Comme nts HPV HIGH RISK INTERP (test c ode = 28542) NEGATIVE HPV 16 (test code = 88468) NEGATIVE HPV 18 (test code = 34965) NEGATIVE HPV, HR, OTHER GENOTYPES (te st code = 63447) NEGATIVE [id number] 00:00:00* Test Item Value Reference Range Interpretation Comme nts RPR RESULT (test code = 3501) NON-REACTIVE RPR TITER (test code = 3500) NOT INDIC. TITER VAGINAL PATHOGENS DNA [id number] 00:00:00* Test Item Value Reference Range Interpretation Comme nts ANNE MARIE SPECIES (test code = 82907) NEGATIVE G. VAGINALIS (test code = 13622) NEGATIVE T. VAGINALIS (test code = 48949) NEGATIVE GC AND CHLAMYDIA AMPLIFIED, [id number] 00:00:00* Test Item Value Reference Range Interpretation Comme nts GONORRHEA, TMA (test code = 29049) NEGATIVE CHLAMYDIA, TMA (test code = 05078) NEGATIVE Georgi DelaneyPAP TEST, THINPREP, [id number] 00:00:00* Test Item Value Reference Range Interpretation Comme nts SOURCE: (test code = 8001) Endocervical SLIDES: (test code = 8011) 1 LMP: (test code = 8021) 10/2020 SPECIMEN ADEQUACY: (test code = 15763) (NOTE) INTERPRETATION: (test code = 09488) NILM/NO EPITH. ABNORMALITY;SEE BELOW MARKET SUPERINTENDENT: (test code = 8101) RANJEET Riley(ASCP)IAC LOCATION: (test code = 15969) (NOTE) CPT: (test code = 8140) (NOTE) Georgi DelaneyACUTE HEPATITIS [id number] 00:00:00* Test Item Value Reference Range Interpretation Comme nts HEPATITIS A IgM (test code = 17967) NON-REACTIVE HEPATITIS B CORE IgM (test c ode = 4644) NON-REACTIVE HEPATITIS B SURF AG (test co de = 2739) NON-REACTIVE HEPATITIS C ANTIBODY (test c ode = 4675) NON-REACTIVE INTERPRETATION HEPATITIS A: (test code = 2552) (NOTE) INTERPRETATION HEPATITIS B: (test code = 72518) (NOTE) INTERPRETATION HEPATITIS C: (test code = 39490) (NOTE) Georgi DelaneyHPV HIGH RISK WITH GENOTYPE, [id number] 00:00:00* Test Item Value Reference Range Interpretation Comme nts HPV HIGH RISK INTERP (test c ode = 03323) NEGATIVE HPV 16 (test code = 47528) NEGATIVE HPV 18 (test code = 25237) NEGATIVE HPV, HR, OTHER GENOTYPES (te st code = 71186) NEGATIVE Georgi [id number] 00:00:00* Test Item Value Reference Range Interpretation Comme nts RPR RESULT (test code = 3501) NON-REACTIVE RPR TITER (test code = 3500) NOT INDIC. TITER Georgi DelaneyVAGINAL PATHOGENS DNA [id number] 00:00:00* Test Item Value Reference Range Interpretation Comme nts ANNE MARIE SPECIES (test code = 62084) NEGATIVE G. VAGINALIS (test code = 65997) NEGATIVE T. VAGINALIS (test code = ) NEGATIVE Georgi Johnson AustinGC AND CHLAMYDIA AMPLIFIED, [id number] 00:00:00* Test Item Value Reference Range Interpretation Comme nts GONORRHEA, TMA (test code = 58046) NEGATIVE CHLAMYDIA, TMA (test code = 78825) NEGATIVE Georgi DelaneyHIV AB/AG COMBO RFLX [id number] 00:00:00* Test Item Value Reference Range Interpretation Comme nts HIV 1/2 4TH GEN, RFLX CONF ( test code = 3514) NON-REACTIVE Georgi DelaneyPAP TEST, THINPREP, [id number] 00:00:00* Test Item Value Reference Range Interpretation Comme nts SOURCE: (test code = 8001) Endocervical SLIDES: (test code = 8011) 1 LMP: (test code = 8021) 10/2020 SPECIMEN ADEQUACY: (test code = 02995) (NOTE) INTERPRETATION: (test code = 39332) NILM/NO EPITH. ABNORMALITY;SEE BELOW MARKET SUPERINTENDENT: (test code = 8101) RANJEET Riley(ASCP)IAC LOCATION: (test code = 81900) (NOTE) CPT: (test code = 8140) (NOTE) Georgi DelaneyACUTE HEPATITIS [id number] 00:00:00* Test Item Value Reference Range Interpretation Comme nts HEPATITIS A IgM (test code = 65934) NON-REACTIVE HEPATITIS B CORE IgM (test c ode = 4644) NON-REACTIVE HEPATITIS B SURF AG (test co de = 2739) NON-REACTIVE HEPATITIS C ANTIBODY (test c ode = 4675) NON-REACTIVE INTERPRETATION HEPATITIS A: (test code = 2552) (NOTE) INTERPRETATION HEPATITIS B: (test code = 78956) (NOTE) INTERPRETATION HEPATITIS C: (test code = 51389) (NOTE) Georgi [id number] 00:00:00* Test Item Value Reference Range Interpretation Comme nts RPR RESULT (test code = 3501) NON-REACTIVE RPR TITER (test code = 3500) NOT INDIC. TITER Georgi DelaneyHPV HIGH RISK WITH GENOTYPE, [id number] 00:00:00* Test Item Value Reference Range Interpretation Comme nts HPV HIGH RISK INTERP (test c ode = 12605) NEGATIVE HPV 16 (test code = 28749) NEGATIVE HPV 18 (test code = 11704) NEGATIVE HPV, HR, OTHER GENOTYPES (te st code = 48479) NEGATIVE Georgi DelaneyVAGINAL PATHOGENS DNA [id number] 00:00:00* Test Item Value Reference Range Interpretation Comme nts ANNE MARIE SPECIES (test code = 83919) NEGATIVE G. VAGINALIS (test code = ) NEGATIVE T. VAGINALIS (test code = ) NEGATIVE Georgi Delaney
[2024-08-18] MEDS ORDERED: LORAZEPAM 1 MG TABLET ONE (05:21)
--- NOTE | 2024-08-18 06:59 | EDPHYS ---
Physician Documentation [facility] Name: Claudine Morales Age: 34 yrs Sex: Female : 1990 Arrival Date: 08/18/2024 Time: 04:41 Bed 17 Private MD: JESUS Physician Lucas Gould HPI: 08/18 05:48 This 34 yrs old Female presents to ER via Ambulatory with complaints of mental health rt issue/ off of medication. 05:48 Patient with history of reported borderline personality disorder presents to the ED rt with an acute episode of anxiety. This occurred after the patient had a fight with her son. Patient states that she had thoughts of throwing something at him but restrained her self, coming to the ER to avoid doing anything violent. At this time, denies any SI, HI. She states that she is weaning herself off of venlafaxine, phentermine which is worsening her symptoms. She is weaning yourself off of these because she was unable to for the medicines, however, she reports that her will be paid this coming week and will be able to afford the medicines at that time. The patient denies any other acute complaints at this time, symptoms are moderate in severity, no other aggravating or alleviating factors.. 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 - Infectious Disease History:: Denies. - Social history:: Smoking status: Patient denies any tobacco usage or history of. ROS: 05:48 Constitutional: Negative for fever, chills, and weight loss, Cardiovascular: Negative rt for chest pain, palpitations, and edema, Respiratory: Negative for shortness of breath, cough, wheezing, and pleuritic chest pain, Abdomen/GI: Negative for abdominal pain, nausea, vomiting, diarrhea, and constipation, Skin: Negative for injury, rash, and discoloration, 05:48 Psych: Positive for anxiety, Negative for suicidal ideation, Exam: 05:48 Constitutional: This is a well developed, well nourished patient who is awake, alert, rt and in no acute distress. Head/Face: Normocephalic, atraumatic. Chest/axilla: Normal chest wall appearance and motion. Nontender with no deformity. No lesions are appreciated. Cardiovascular: Regular rate and rhythm with a normal S1 and S2. No gallops, murmurs, or rubs. Normal PMI, no JVD. No pulse deficits. Respiratory: Lungs have equal breath sounds bilaterally, clear to auscultation and percussion. No rales, rhonchi or wheezes noted. No increased work of breathing, no retractions or nasal flaring. Abdomen/GI: Soft, non-tender, with normal bowel sounds. No distension or tympany. No guarding or rebound. No evidence of tenderness throughout. Skin: Warm, dry with normal turgor. Normal color with no rashes, no lesions, and no evidence of cellulitis. MS/ Extremity: Pulses equal, no cyanosis. Neurovascular intact. Full, normal range of motion. Neuro: Awake and alert, GCS 15, oriented to person, place, time, and situation. Cranial nerves II-XII grossly intact. Motor strength 5/5 in all extremities. Sensory grossly intact. Cerebellar exam normal. Normal gait. 05:48 Psych: Mood anxious, affect tearful, denies SI, HI. Vital Signs: 04:58 BP 142 / 96; Pulse 98; Resp 18; Temp 98.2; Pulse Ox 98% ; Pain 0/10; cp4 06:14 BP 115 / 69; Pulse 78; Resp 18; Pulse Ox 96% ; cp4 04:58 Pain Scale: Adult cp4 MDM: 05:01 Medical Screening Exam initiated rt 07:06 Differential Diagnosis Anxiety disorder. Data reviewed: vital signs, nurses notes. Test rt considered but Not performed: Other Details Patient is no true physical complaints, does not appear to be an eminent threat to herself or others nor she gravely disabled. She does not require labs, EKG. Care significantly affected by the following chronic conditions: Borderline personality disorder. Counseling: I had a detailed discussion with the patient and/or guardian regarding the historical points, exam findings, and any diagnostic results supporting the discharge/admit diagnosis, the need for outpatient follow up, to return to the emergency department if symptoms worsen or persist or if there are any questions or concerns that arise at home. Response to treatment: the patient's symptoms have markedly improved after treatment. Administered Medications: 05:23 Drug: LORazepam PO 1 mg PO once Route: PO; cp4 07:03 Follow up: Response: No adverse reaction cp4 Disposition Summary: 08/18/24 06:59 Discharge Ordered Notes: Location: Home rt Problem: new rt Symptoms: have improved rt Condition: Stable rt Diagnosis - Anxiety disorder, unspecified rt Followup: rt - With: Private Physician - When: 2 - 3 days - Reason: Discharge Instructions: - Discharge Summary Sheet rt - Managing Anxiety, Adult rt Forms: - Medication Reconciliation Form rt - Antibiotic Education rt - Prescription Opioid Use rt - Patient Portal Instructions rt - Leadership Thank You Letter rt Signatures: Lucas Gould MD MD rt Bernie Ogden 4
--- NOTE | 2024-08-18 06:59 | ER ---
Nurse's Notes [facility] Name: Claudine Morales Age: 34 yrs Sex: Female : 1990 Arrival Date: 08/18/2024 Time: 04:41 Bed 17 Private MD: Diagnosis: Anxiety disorder, unspecified Presentation: 08/18 04:58 Chief complaint: Patient states: has been off meds and therapy and had a fight with her cp4 son delmis which caused her mind to start racing and anxiety. Coronavirus screen: Client denies travel out of the [place] in the last 14 days. At this time, the client does not indicate any symptoms associated with coronavirus-19. Ebola Screen: Patient negative for fever greater than or equal to 101.5 degrees Fahrenheit, and additional compatible Ebola Virus Disease symptoms Patient denies exposure to infectious person. Patient denies travel to an Ebola-affected area in the 21 days before illness onset. No symptoms or risks identified at this time. Initial Sepsis Screen: Does the patient meet any 2 criteria? HR > 90 bpm. No. Patient's initial sepsis screen is negative. Does the patient have a suspected source of infection? No. Patient's initial sepsis screen is negative. Risk Assessment: Do you want to hurt yourself or someone else? Patient reports no desire to harm self or others. Onset of symptoms was August 18, 2023. 04:58 Method Of Arrival: Ambulatory [facility] 04:58 Acuity: VANDANA 3 cp4 Triage Assessment: 05:00 General: Appears in no apparent distress. uncomfortable, Behavior is cooperative, cp4 appropriate for age, anxious. Pain: Denies pain. EENT: No signs and/or symptoms were reported regarding the EENT system. Neuro: Level of Consciousness is awake, alert, obeys commands, Oriented to person, place, time, situation. Cardiovascular: Patient's skin is warm and dry. Respiratory: Airway is patent Respiratory effort is even, unlabored. GI: No signs and/or symptoms were reported involving the gastrointestinal system. : No signs and/or symptoms were reported regarding the genitourinary system. Derm: No signs and/or symptoms reported regarding the dermatologic system. Musculoskeletal: No signs and/or symptoms reported regarding the musculoskeletal system. 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 - Infectious Disease History:: Denies. - Social history:: Smoking status: Patient denies any tobacco usage or history of. Screenin:05 [facility] ED Fall Risk Assessment (Adult) History of falling in the last 3 months, cp4 including since admission No falls in past 3 months (0 pts) Confusion or Disorientation No (0 pts) Intoxicated or Sedated No (0 pts) Impaired Gait No (0 pts) Mobility Assist Device Used No (0 pt) Altered Elimination No (0 pt) Score/Fall Risk Level 0 - 2 = Low Risk Oriented to surroundings, Maintained a safe environment, Assessed \T\ reinforced patient's understanding of fall precautions, Hourly rounding (assess needs \T\ fall precautionary measures) done. Abuse screen: Denies threats or abuse. Nutritional screening: No deficits noted. Tuberculosis screening: No symptoms or risk factors identified. Assessment: 05:05 Reassessment: No changes from previously documented assessment. cp4 06:17 Reassessment: Patient appears in no apparent distress at this time. Patient and/or cp4 family updated on plan of care and expected duration. Pain level reassessed. Patient is alert, oriented x 3, equal unlabored respirations, skin warm/dry/pink. Vital Signs: 04:58 BP 142 / 96; Pulse 98; Resp 18; Temp 98.2; Pulse Ox 98% ; Pain 0/10; cp4 06:14 BP 115 / 69; Pulse 78; Resp 18; Pulse Ox 96% ; cp4 04:58 Pain Scale: Adult 4 ED Course: 04:46 Patient arrived in ED. gm2 04:48 Lucas Gould MD is Attending Physician. rt 04:49 Bernie Ogden is Primary Nurse. cp4 05:00 Triage completed. cp4 05:00 Arm band placed on right wrist. Patient placed in waiting room. cp4 05:05 Bed in low position. Call light in reach. Side rails up X 1. cp4 05:05 No provider procedures requiring assistance completed. cp4 07:03 Provided Education on: anxiety. cp4 07:03 Patient did not have IV access during this emergency room visit. cp4 Administered Medications: 05:23 Drug: LORazepam PO 1 mg PO once Route: PO; cp4 07:03 Follow up: Response: No adverse reaction cp4 Medication: 05:05 VIS not applicable for this client. cp4 Outcome: 06:59 Discharge ordered by . rt 07:03 Discharged to home ambulatory, cp4 07:03 Condition: stable 07:03 Discharge instructions given to patient, Instructed on discharge instructions, follow up and referral plans. Demonstrated understanding of instructions, follow-up care, 07:03 Patient left the ED. cp4 Signatures: Lucas Gould MD MD rt Bernie Ogden cp4 Daysi Hooper gm2
[2024-08-18 07:08] VITALS: TEMP 98.2
[2024-08-18 07:09] VITALS: BP 115/69; O2SAT 96
== END 2024-08-18 07:03 | disposition home or self-care (01) ==
LOC: ER 04:41
DX: F41.9 Anxiety disorder, unspecified (principal); I10 Essential (primary) hypertension; E09.39 Drug or chemical induced diabetes mellitus with other diabetic ophthalmic complication; G47.00 Insomnia, unspecified; E28.2 Polycystic ovarian syndrome; F39 Unspecified mood [affective] disorder
CPT/HCPCS: 99283

== ENCOUNTER 2024-11-22 23:30 | Emergency (ER) | payer OTHER ==
--- OUTSIDE RECORDS SUMMARY | 2024-11-22 23:47 | XMS REPORT | Continuity of Care Document ---
Author Name Unknown Address [address] [facility] [address] [place] [address] [facility] Address [address] [facility] 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 Specialist Name Role Phone Ludivina ESCOBAR, [facility] Primary Care Physician [phone] JUAN CASTELLANOS Attending Clinician Unavailable SABRINA WINTER Attending Clinician Unavailable FAUSTINO CORTEZ Attending Clinician Unavailable MALCOLM GILL Attending Clinician Unavail able ROMAIN GENAO Attending Clinician Unavailabl e LAB90 Attending Clinician Unavailable NABEEL MEDINA Attending Clinician Unavailab JUSTIN Engel Attending Clinician Unavailable MIKE CAMPOS Attending Clinician Unavailable GIOVANNI MOJICA Attending Clinician Unava ilable YOON PAGE Attending Clinician Unavailable YOON PAGE Attending Clinician Unavailable VETO HUANG Attending Clinician Unavailable ARLETTE HOLDER Attending Clinician Unavailable FLORIAN MIDDLETON Attending Clinician Unav ailable Zhanna Kramer LVN Attending Clinician Unavailabl e Doctor Unassigned, [place] Attending Clinician U navailable NICK GARCIA Attending Clinician Unavail able NICK GARCIA Attending Clinician Unavail able AFIA BEAULIEU Attending Clinician Unavailable Nick Garcia MD Attending Clinician [phone] MD RUEL Attending Clinician Unavailab ENDER Borrero Attending Clinician Unavailab le JoseCesar Attending Clinician Unavailabl e AUDREY, RACIEL-SON Attending Clinician Unavailable KAMILAH GARCIA Attending Clinician Unavail able YISEL ASTORGA Attending Clinician Unavailable ZIYAD HOYOS Attending Clinician U navailable JOSE, CESAR DOMÍNGUEZ Attending Clinician Unav ailable LIBERTAD LEE Attending Clinician Unavailable GEORGI WILBURN Attending Clinician Unavailable TAMMY MCDOWELL Attending Clinician Unavaila RIGO Martin Attending Clinician UnavailAfia Brothers Attending Clinician [phone] Tonya PARKER, Dorothy Attending Clinician DOROTHY SHUKLA Attending Clinician Jeanine vailable Elly Blackburn MD Attending Clinician [phone] SHARRI OLSON Attending Clinician Unavailabl SHARRI Boswell Attending Clinician Unavailabl dwaine [facility] Unava ilable Tonya PARKER, Dorothy Attending Clinician Doctor Unassigned, [place] Attending Clinician U navailable ELLY BLACKBURN Attending Clinician Unavailable EMILY SINGH Attending Clinician Unavailable Emily Singh MD Attending Clinician [phone] ATILIO ANDREWS Attending Clinician Unavailable OBI SHARIF Attending Clinician Unavailable RADIOLOGY Attending Clinician Unavailable Radiology Attending Clinician Unavailable Elly Blackburn MD Attending Clinician [phone] BONNIE ROCHA Attending Clinician Unavailab Bonnie Vu Attending Clinician [phone] Debbie Velasco RN Attending Clinician Unavaila jose Dang Navneet Grayson Attending Clinician Unava ilable Ion Rahman MD Attending Clinician [phone] OIN RAHMAN Attending Clinician Unavaila ION Chua Attending Clinician Unavaila ISELA Vieira Attending Clinician Unavailable CHANEL JACOME Attending Clinician Unavailable Jens Carranza RN, Sharri Canseco Attending Clinician Unava ilable JEFFREY, GEORGETTE S Attending Clinician Unavailable Jeffrey PAC, Georgette S Attending Clinician [phone] Chago CARRANZA, [place] Attending Clinician Jeanine mckenzie MENEZESP, Preethi Attending Clinician [phone] Yamil MESSINA Attending Clinician Unavailable SiddharthYamil Cox Attending Clinician [phone] Pgy2 Attending Clinician Unavailable Donal ESCOBAR, Marques Ruiz Attending Clinician [phone] [facility] Resident Attending Clinician Unavailab Aracely Del Rio MD Attending Clinician [phone] Danielle ESCOBAR, Dena Attending Clinician + Jeanette Campos MD Attending Clinician [phone] JEANETTE CAMPOS Attending Clinician Unavailable BEBE GABRIEL Attending Clinician Unavailable YOON PAGE Admitting Clinician Unavailable Juan Castellanos Admitting Clinician Unavailab AFIA Garcia Admitting Clinician Unavailable Yamil MESSINA Admitting Clinician Unavailable YOON PAGE Admitting Clinician Unavailable Payers Payer Name Policy Type Policy Number Effective Date Expirati on Date Source [facility] TIO CHRISTIE COPAY FOCUS 9 [id number] 2024 00:00:00 [facility] W/ ROLANDA SANTOS [id number] 2024 00:00:00 Problems Condition Name Condition Details Condition Category Status Onset Date Resolution Date Last Treatment Date Treating Clinician Comments Source PCOS (polycysti c ovarian syndrome) PCOS (polycysti c ovarian syndrome) Disease Active Rolanda Sebisi - Externa l Prediabete s Prediabete s Disease Active Rolanda Sebisi - Externa l Thyroid disease Thyroid disease [...] Active Kelse y Seybold - Externa l No known active problems No known active problems Disease [facility] Allergies, Adverse Reactions, Alerts Allergy Name Allergy Type Status Severity Reaction(s) Onset Date Inactive Date Treating Clinician Comments Source lurasido ne DA Active [place] ANXIETY 2023-08 00:00: 00 [facility] lamotrig ine DA Active MO RASH 2023-08 00:00: 00 [facility] Aripipra zole Propensi ty to adverse reaction s Active 2023-08 00:00: 00 Other Reaction( s): ANXIETY Rolanda Seybold - Externa l Lamotrig ine Propensi ty to adverse reaction s Active 2023-08 00:00: 00 Other Reaction( s): RASH Rolanda Seybold - Externa l doxepin DA Active MO ANXIETY 2023-08 00:00: 00 [facility] quetiapi ne DA Active MO WEIGHT GAIN 2023-08 00:00: 00 [facility] aripipra zole DA Active MO ANXIETY 2023-08 00:00: 00 [facility] QUETIAPI NE DRUG INGREDI Active Other-Cmnt 11-27 00:00: 00 [facility] ZIPRASID ONE DRUG INGREDI Active Other-Cmnt 11-27 00:00: 00 [facility] Ziprasid one Propensi ty to adverse reaction s Active Other - See comments 4-17 00:00: 00 Causes a reaction with metformin & Topamax [facility] Quetiapi ne Propensi ty to adverse reaction s Active Swelling 4-17 00:00: 00 Does not help and causes weight gain Other Reaction( s): WEIGHT GAIN Rolanda Seybold - Externa l Ziprasid one Propensi ty to adverse reaction s Active Other 4-17 00:00: 00 Causes a reaction with metformin & Topamax Rolanda Seybold - Externa l Lamictal Propensi ty to adverse reaction to drug Active 3-11 00:00: 00 Georgi Delaney LURASIDO NE DRUG INGREDI Active Other-Cmnt 8-07 00:00: 00 [facility] DOXEPIN DRUG INGREDI Active Anxiety 8-07 00:00: 00 [facility] Doxepin Propensi ty to adverse reaction s Active Anxiety 8-07 00:00: 00 Anger, agression [facility] Lurasido ne Propensi ty to adverse reaction s Active Other - See comments 8- 00:00: 00 Manic episode/a gression [facility] Lurasido ne Propensi ty to adverse reaction s Active Other 8-07 00:00: 00 Manic episode/a gression Other Reaction( s): ANXIETY Rolanda Seybold - Externa l Doxepin Propensi ty to adverse reaction s Active Other 2021-08 2-14 00:00: 00 Anger, agression Other Reaction( s): ANXIETY Rolanda Seybold - Externa l Abilify - Oral Propensi ty to adverse reaction to drug Active 8-25 00:00: 00 Georgi Delaney Codeine Propensi ty to adverse reaction s Active 8-25 00:00: 00 Rolanda Seybold - Externa l ARIPIPRA ZOLE DRUG INGREDI Active Other-Cmnt 7-30 00:00: 00 [facility] LAMOTRIG INE DRUG INGREDI Active Other-Cmnt 03-11 00:00: 00 [facility] Aripipra zole Propensi ty to adverse reaction s Active Other - See comments 03-11 00:00: 00 Suicidal ideation and AMS [facility] Lamotrig ine Propensi ty to adverse reaction s Active Other - See comments 03-11 00:00: 00 Possible reaction att. [facility] Trace Metals Propensi ty to adverse reaction s Active 03-11 00:00: 00 Other Reaction( s): itching Rolanda Seybold - Externa l Lamotrig ine Propensi ty to adverse reaction s Active Other 01-30 00:00: 00 Possible reaction att. Rolanda Seybold - Externa l Aripipra zole Monohydr ate Propensi ty to adverse reaction s Active Other 01-30 00:00: 00 Suicidal ideation and AMS Rolanda Covarrubiasold - Externa l [place] Propensi ty to adverse reaction s Active 01-19 00:00: 00 Rolanda Seybold - Externa l NO KNOWN ALLERGIE S Drug Class Active [facility] Family History Family Member Diagnosis Comments Start Date Stop Date Sourc e [facility]aternal [facility] Social History Social Habit Start Date Stop Date Quantity Comments Source ASSERTION Not Rolanda Vogel - External Sexual orientation K naomi Vogel - External Gender identity [facility] Exposure to SARS-CoV-2 (event) Not sure [facility] Alcoholic beverage intake 2024-11-19 00:00:00 2024-11-19 00:00:00 .14 /d Rolanda Vogel - External Cigarettes smoked current (pack per day) - Reported 2024-02-05 00:00:00 2024-02-05 00:00:00 Rolanda Vogel - External Cigarette pack-years 2024-02-05 00:00:00 2024-02-05 00:00:00 Rolanda Vogel - External Tobacco use and exposure 2024-02-05 00:00:00 2024-02-05 00:00:00 Smokeless tobacco non-user Rolanda Lee History of Social function 2024-02-04 00:00:00 2024-02-04 00:00:00 Rolanda Lee Alcohol Comment 2024-02-04 00:00:00 2024-02-04 00:00:00 rarely socially, in past alcohol abuse; alcohol poisoning 1 month ago Rolanda Vogel - Rosa Sex 2024-01-10 10:08:48 2024-01-10 10:08:48 Female (finding) Rolanda Lee Alcohol intake 2023-11-01 00:00:00 2023-11-01 00:00:00 Current drinker of alcohol (finding) [facility] History of tobacco use 2004-02-04 00:00:00 2010-02-03 00:00:00 Cigarette Smoker Rolanda Lee Sex assigned at 1990 00:00:00 1990 00:00:00 Rolanda Lee Smoking Status Start Date Stop Date Source Ex-smoker 2024-02-05 00:00:00 2024-02-05 00:00:00 Rolanda Lee Never smoked tobacco [facility] Tobacco smoking consumption unknown [facility] Medications Ordered Medication Name Filled Medication Name Start Date Stop Date Current Medication? Ordering Clinician Indication Dosage Frequency Signature (SIG) Comments Components Source Rimegepant Sulfate (Nurtec) 75 MG oral TABLET DISPERSIBLE 11-19 00:00: 00 Yes [id number] 75mg Take 1 tablet (75 mg total) by mouth every other day. Rolanda peoples Rizatriptan Benzoate 5 MG oral Tablet 11-19 00:00: 00 11-19 00:00 :00 No [id number] 5mg Take 1 tablet (5 mg total) by mouth once as needed for migraine (May repeat in 2 hours if unresolved . Do not exceed 30 mg in 24 hours.). Rolanda peoples Gabapentin 300 MG oral Capsule 11-18 00:00: 00 Yes Rolanda peoples Etonogestre l (NEXPLANON SC) 11-17 15:06: 03 Yes [id number] Inject into the skin. Rolanda Stacy l Nurtec 75 MG oral TABLET DISPERSIBLE 11-16 00:00: 00 11-19 00:00 :00 No [id number] DISSOLVE 1 TABLET BY MOUTH ONCE DAILY NEEDED FOR MIGRAINE HEADACHE Rolanda peoples Nitrofurant oin Monohyd Macro (Macrobid) 100 MG oral Capsule 11-12 00:00: 00 Yes [id number] 100mg Q.5D Take 1 capsule (100 mg total) by mouth 2 times daily. Rolanda peoples Etonogestre l (NEXPLANON SC) 11-11 13:33: 06 Yes [id number] Inject into the skin. Rolanda peoples Rimegepant Sulfate (Nurtec) 75 MG oral TABLET DISPERSIBLE 11-11 00:00: 00 Yes [id number] 75mg QD Take 1 tablet (75 mg total) by mouth daily as needed for migraine. Rolanda peoples Propranolol HCl 40 MG oral Tablet 11-11 00:00: 00 Yes [id number] 40mg QD Take 1 tablet (40 mg total) by mouth daily. Rolanda peoples Phentermine HCl 37.5 MG oral Tablet 11-11 00:00: 00 Yes [id number] 37.5mg Take 1 tablet (37.5 mg total) by mouth every morning (before breakfast) . Rolanda peoples Gabapentin 600 MG oral Tablet 3-31 00:00: 00 Yes 600mg Q.44000015 [id number] 3D Take 1 tablet (600 mg total) by mouth 3 times daily. Rolanda Stacy l Etonogestre l (NEXPLANON SC) 2-24 15:18: 59 Yes [id number] Inject into the skin. Rolanda Feldera l Phentermine HCl 37.5 MG oral Tablet 2-24 00:00: 00 11-11 00:00 :00 No [id number] 37.5mg Take 1 tablet (37.5 mg total) by mouth every morning (before breakfast) . Rolanda peoples Etonogestre l (NEXPLANON SC) 10-03 09:54: 13 Yes [id number] Inject into the skin. Rolanda peoples Gabapentin 300 MG oral Capsule 10-03 00:00: 00 Yes 300mg Q.[id number] 3D Take 1 capsule (300 mg total) by mouth 3 times daily. Rolanda peoples Vitamin D, Ergocalcife rol, 1.25 MG (65483 UT) oral Capsule 10-03 00:00: 00 Yes [id number] Q1W Take 1 capsule (50,000 units total) by mouth once a week. Rolanda peoples Turmeric 500 MG oral Capsule 10-03 00:00: 00 Yes 1{capsu le} Q.5D Take 1 capsule by mouth 2 times daily. Rolanda peoples Etonogestre l (NEXPLANON SC) 09-16 13:31: 27 Yes [id number] Inject into the skin. Rolanda peoples Venlafaxine HCl 75 MG oral Capsule 24 Hour Sustained Release 09-16 00:00: 00 Yes [id number] 75mg Q.5D Take 1 capsule (75 mg total) by mouth 2 times daily. Rolanda peoples Semaglutide -Weight Management (Wegovy) 0.25 MG/0.5ML subcutaneou s Solution Auto-inject or 09-16 00:00: 00 11-11 00:00 :00 No [id number] .25mg Q1W Inject 0.25 mg into the skin once a week. Rolanda peoples Phentermine HCl 37.5 MG oral Tablet 09-16 00:00: 00 10-06 00:00 :00 No [id number] 37.5mg Take 1 tablet (37.5 mg total) by mouth every morning (before breakfast) . Rolanda peoples Phentermine HCl 37.5 MG oral Tablet 2023-08 2 00:00: 00 09-16 00:00 :00 No 37.5mg Take 1 tablet (37.5 mg total) by mouth every morning (before breakfast) . Rolanda peoples Semaglutide -Weight Management (Wegovy) 0.25 MG/0.5ML subcutaneou s Solution Auto-inject or 2023-08 00:00: 00 09-16 00:00 :00 No [id number] .25mg Q1W Inject 0.25 mg into the skin once a week. Rolanda peoples Diclofenac Sodium 75 MG oral Tablet Delayed Response 2023-08 00:00: 00 09-16 00:00 :00 No 75mg Q.5D Take 1 tablet (75 mg total) by mouth 2 times daily. Rolanda peoples Etonogestre l (NEXPLANON SC) 2023-08 14:52: 42 Yes [id number] Inject into the skin. Rolanda peoples methylPREDN ISolone 4 MG oral Tablet Therapy Pack 2023-08 00:00: 00 Yes [id number] 1{michi} Take 1 michi by mouth See Admin Instructio ns Use as directed. Rolanda peoples Gabapentin 100 MG oral Capsule 2023-08 00:00: 00 10-03 00:00 :00 No [id number] 100mg Q.[id number] 3D Take 1 capsule (100 mg total) by mouth 3 times daily. Rolanda peoples Gabapentin 300 MG oral Capsule 2023-08 00:00: 00 06-26 00:00 :00 No [id number] 300mg Q.[id number] 3D Take 1 capsule (300 mg total) [...] l (NEXPLANON SC) 2023-08 14:02: 45 Yes [id number] Inject into the skin. Rolanda Stacy l Etonogestre l (NEXPLANON SC) 2023-08 15:01: 47 Yes [id number] Inject into the skin. Rolanda peoples linaCLOtide (Linzess) 145 MCG oral Capsule 2023-08 00:00: 00 09-16 00:00 :00 No [id number] 145ug QD Take 1 capsule (145 mcg total) by mouth daily. Rolanda peoples Phentermine HCl 37.5 MG oral Tablet 2023-08 00:00: 00 06-10 00:00 :00 No [id number] 37.5mg Take 1 tablet (37.5 mg total) by mouth every morning (before breakfast) . Rolanda peoples linaCLOtide (Linzess) 145 MCG oral Capsule 2023-08 00:00: 00 05-27 00:00 :00 No [id number] 145ug QD Take 1 capsule (145 mcg total) by mouth daily. Rolanda peoples Etonogestre l (NEXPLANON SC) 04-17 13:48: 24 Yes [id number] Inject into the skin. Rolanda peoples Mounjaro 2.5 MG/0.5ML subcutaneou s Solution Pen-injecto r 04-04 00:00: 00 05-27 00:00 :00 No Rolanda peoples Etonogestre l (NEXPLANON SC) 04-03 15:13: 14 Yes [id number] Inject into the skin. Rolanda peoples Levothyroxi ne Sodium (Unithroid) 50 MCG oral Tablet 04-03 00:00: 00 Yes [id number] 50ug QD Take 1 tablet (50 mcg total) by mouth daily. Rolanda peoples Semaglutide -Weight Management (Wegovy) 0.25 MG/0.5ML subcutaneou s Solution Auto-inject or 04-03 00:00: 00 05-27 00:00 :00 No [id number] .25mg Q1W Inject 0.25 mg into the skin once a week. Rolanda peoples Phentermine HCl 37.5 MG oral Tablet 04-03 00:00: 00 05-27 00:00 :00 No [id number] 37.5mg Take 1 tablet (37.5 mg total) by mouth every morning (before breakfast) . Rolanda peoples Etonogestre l (NEXPLANON SC) 03-04 14:26: 28 Yes [id number] Inject into the skin. Rolanda peoples Semaglutide -Weight Management (Wegovy) 0.25 MG/0.5ML subcutaneou s Solution Auto-inject or 03-04 00:00: 00 04-03 00:00 :00 No [id number] .25mg Q1W Inject 0.25 mg into the skin once a week. Rolanda peoples Diethylprop ion HCl CR 75 MG oral TABLET SR 24 HR 03-04 00:00: 00 04-03 00:00 :00 No [id number] 1{tbl} QD Take 1 tablet by mouth daily. Rolanda peoples Cholecalcif luann (Vitamin D) 50 MCG (2000 UT) oral Capsule 02-20 00:00: 00 04-03 00:00 :00 No [id number] 2000U QD Take 1 capsule (2,000 units total) by mouth daily. Rolanda peoples Ibuprofen (MOTRIN) 600 MG oral Tablet 02-12 00:00: 00 Yes Rolanda peoples Chlorhexidi ne Gluconate 0.12 % mouth/throa t Solution 02-12 00:00: 00 05-27 00:00 :00 No Rolanda peoples Acetaminoph en-Codeine 300-30 MG oral Tablet 02-12 00:00: 00 04-03 00:00 :00 No Rolanda peoples Vitamin D, Ergocalcife rol, 1.25 MG (28475 UT) oral Capsule 02-10 00:00: 00 05-27 00:00 :00 No [id number] 61597H Q1W Take 1 capsule (50,000 units total) [...] l (NEXPLANON SC) 02-04 15:21: 33 Yes [id number] Inject into the skin. Rolanda peoples Levothyroxi ne Sodium (Unithroid) 50 MCG oral Tablet 02-04 00:00: 00 04-03 00:00 :00 No [id number] 50ug QD Take 1 tablet (50 mcg total) by mouth daily. Rolanda peoples Phentermine HCl 37.5 MG oral Tablet 02-04 00:00: 00 03-04 00:00 :00 No [id number] 37.5mg QD Take 1 tablet (37.5 mg [...] tablet in the evening. Take with meals. [facility] Ketorolac Tromethamin e (TORADOL) injection syringe 60 mg 12-25 14:30: 00 12-25 14:30 :00 No [id number] 60mg 60 mg, Intramuscu lar, ONCE, 1 dose, On Sun12/26/23 at 0930, Routine [facility] Ondansetron HCl 4 MG oral Tablet 12-24 00:00: 00 Yes [id number] 4mg Q.[id number] 3D Take 1 tablet (4 mg total) by mouth every 8 hours as needed. Rolanda peoples Topiramate 100 MG oral Tablet 12-24 00:00: 00 Yes [id number] 100mg Q.5D Take 1 tablet (100 mg total) by mouth in the morning and 1 tablet (100 mg total) in the evening. Rolanda peoples Ubrogepant 100 MG oral Tablet 12-24 00:00: 00 Yes [id number] 100mg Take 1 tablet (100 mg total) by mouth as needed. Rolanda peoples Propranolol HCl 40 MG oral Tablet 12-24 00:00: 00 11-11 00:00 :00 No [id number] 40mg QD Take 1 tablet (40 mg total) by mouth daily. Rolanda peoples Rimegepant Sulfate (Nurtec) 75 MG oral TABLET DISPERSIBLE 12-24 00:00: 00 11-11 00:00 :00 No [id number] 75mg QD Take 1 tablet (75 mg total) by mouth daily as needed. Rolanda peoples levothyroxi ne 50 mcg tablet 12-20 00:00: 00 Yes 1mcg Georgi Delaney phentermine 37.5 mg tablet 5-10 00:00: 00 Yes mg Georgi Delaney hydrOXYzine HCl 50 MG oral Tablet 0 5-08 00:00: 00 Yes [id number] Rolanda Jaspreet peoples Venlafaxine HCl 75 MG oral Capsule 24 Hour Sustained Release -08 00:00: 00 09-16 00:00 :00 No [id number] 75mg QD Take 1 capsule (75 mg total) by mouth daily (with breakfast) . Rolanda peoples Metformin HCl ER 500 MG oral TABLET SR 24 HR -19 00:00: 00 03-04 00:00 :00 No [id number] 500mg Take 1 tablet (500 mg total) by mouth in the morning and 1 tablet (500 mg total) in the evening. Take with meals. Rolanda peoples HYDROXYZINE HCL 50 MG TABS -03 00:00: 00 Yes Georgi Delaney levothyroxi ne 112 mcg tablet - 00:00: 00 Yes mcg Georgi Delaney UNITHROID 112 MCG TABS 0 4- 00:00: 00 Yes Georgi Delaney butalbital- acetaminoph en-caff 50-325-40 mg tablet - 08:54: 39 - 00:00 :00 No 1{tbl} Take 1 tablet by mouth every 4 (four) hours as needed for Headache. [facility] TOPIRAMATE 100 MG TABS 0 -21 00:00: 00 Yes Georgi Delaney topiramate 100 mg tablet 0 -21 00:00: 00 14 00:00 :00 No [id number] 100mg Take 1 tablet by mouth in the morning and 1 tablet in the evening. [facility] butalbital- acetaminoph en-caff 50-325-40 mg tablet 3-20 08:17: 56 Yes 1{tbl} Take 1 tablet by mouth every 4 (four) hours as needed for Headache. [facility] Victoza 2-Michi 0.6 mg/0.1 mL (18 mg/3 mL) subcutaneou s pen injector 10-24 00:00: 00 Yes (18 mg/3 mL) Georgi Delaney phentermine 37.5 mg tablet 10-24 00:00: 00 Yes mg Georgi Delaney Methocarbam ol 750 MG oral Tablet 10-22 00:00: 00 Yes [id number] Rolanda peoples gabapentin 100 mg capsule 10-22 00:00: 00 Yes 1mg Georgi Delaney Gabapentin 100 MG oral Capsule 10-22 00:00: 00 06-22 00:00 :00 No [id number] 100mg Q.[id number] 3D Take 1 capsule (100 mg total) by mouth 3 times daily. Rolanda peoples Diclofenac Sodium 75 MG oral Tablet Delayed Response 10-22 00:00: 00 04-03 00:00 :00 No [id number] 1mg 1 mg. Rolanda peoples ketorolac (TORADOL) injection 30 mg 10-16 06:30: 00 10-16 06:17 :00 No 30mg 30 mg, Slow IV Push, ONCE, 1 dose, On Sun10/17/23 at 0030, Routine [facility] NaCl 0.9% (NS) bolus infusion 1,000 mL 10-16 06:15: 00 10-16 07:36 :00 No 1000mL at 999 mL/hr, 1,000 mL, IV Infusion, ONCE, 1 dose, On Sun10/17/23 at 0015, STAT [facility] metoclopram krystian HCl (REGLAN) injection 10 mg 10-16 06:15: 00 10-16 06:17 :00 No 10mg 10 mg, Slow IV Push, ONCE, 1 dose, On Sun10/17/23 at 0015, PAWEL [facility] diphenhydrA MINE (BENADRYL) injection 25 mg 10-16 06:15: 00 10-16 06:17 :00 No 25mg 25 mg, Slow IV Push, ONCE, 1 dose, On Sun10/17/23 at 0015, STAT [facility] hydroxyzine HCl 50 mg tablet - 00:00: 00 Yes mg Georgi Delaney ACETAMINOPH EN-CAFF-BUT ALBITAL 50-325-40 MG oral Tablet - 00:00: 00 06-26 00:00 :00 No [id number] Rolanda peoples venlafaxine ER 75 mg capsule,ext ended release 24 hr 10-10 00:00: 00 Yes mg Georgi Delaney metFORMIN 500 mg tablet 10-03 10:52: 09 Yes 500mg Take 1 tablet by mouth in the morning and 1 tablet in the evening. Take with meals. [facility] Rimegepant Sulfate (Nurtec) 75 MG oral TABLET DISPERSIBLE 10-03 00:00: 00 02-04 00:00 :00 No Rolanda peoples phentermine 37.5 mg tablet 10-02 00:00: 00 Yes mg Georgi Delaney NURTEC 75 MG TBDP 09-18 00:00: 00 Yes Georgi Delaney TOPIRAMATE 50 MG TABS - 00:00: 00 Yes Georgi Delaney rimegepant (NURTEC ODT) 75 mg TbDL - 00:00: 00 12-24 00:00 :00 No [id number] 75mg Take 1 tablet by mouth once daily as needed (Headache) . [facility] propranoloL 40 mg tablet 2- 00:00: 00 12-24 00:00 :00 No [id number] 40mg Take 1 tablet by mouth in the morning. [facility] topiramate 50 mg tablet 2- 00:00: 00 10-31 00:00 :00 No [id number] 50mg Take 1 tablet by mouth in the morning and 1 tablet in the evening. [facility] HYDROXYZINE HCL 50 MG TABS 09-17 00:00: 00 Yes Georgi Delaney VENLAFAXINE HYDROCHLORI DE ER 75 MG CP24 - 00:00: 00 Yes Georgi Delaney venlafaxine XR (EFFEXOR XR) 75 mg 24 hr capsule 09-17 00:00: 00 12-18 00:00 :00 No [id number] 75mg Take 1 capsule by mouth daily with breakfast. [facility] propranolol 40 mg tablet 09-16 00:00: 00 Yes mg Georgi Delaney metformin ER 500 mg tablet,exte nded release 24 hr 09-03 00:00: 00 Yes mg Georgi Delaney TAKE 1 TABLET DAILY 09-03 00:00: 00 Yes Georgi Delaney VENLAFAXINE HYDROCHLORI DE ER 75 MG CP24 09-03 00:00: 00 Yes Georgi Delaney venlafaxine XR (EFFEXOR XR) 75 mg 24 hr capsule 09-03 00:00: 00 09-17 00:00 :00 No [id number] 75mg Take 1 capsule by mouth daily with breakfast. [facility] levothyroxi ne 112 mcg tablet 08-19 00:00: [...] 00 12-25 00:00 :00 No 183 Georgi Delaney Zolpidem Tartrate 5 MG oral Tablet 2022-08 00:00: 00 02-04 00:00 :00 No Rolanda peoples ramelteon 8 mg tablet 2022-08 00:00: 00 07-23 00:00 :00 No [id number] 8mg Take 1 tablet by mouth at bedtime as needed for Insomnia. [facility] TAKE 1 TABLET BY MOUTH TWICE A [...] Georgi Delaney ubrogepant 100 mg Tab 2022-08 0-31 00:00: 00 12-24 00:00 :00 No [id number] 100mg Take 1 tablet by mouth as needed for Other (Headache) for up to 64 doses. If symptoms persist or return, may repeat dose after 2 hours. Maximum: 200 mg per 24 hours [facility] VENLAFAXINE HYDROCHLORI DE ER 37.5 MG CP24 2022-08 0-25 00:00: 00 Yes Georgi Delaney HYDROXYZINE HCL 50 MG TABS 2022-08 0-25 00:00: 00 Yes Georgi Delaney VENLAFAXINE HYDROCHLORI DE ER 75 MG CP24 2022-08 00:00: 00 Yes Georgi Delaney venlafaxine XR (EFFEXOR XR) 75 mg 24 hr capsule 2022-08 00:00: 00 09-03 00:00 :00 No [id number] 75mg Take 1 capsule by mouth daily with breakfast. [facility] TAKE 1 TABLET TWICE A DAY WITH MEALS 2022-08 00:00: 00 12-25 00:00 :00 No 500 Georgi Delaney Omeprazole 40 MG oral Delayed Release Capsule 2022-08 00:00: 00 05-27 00:00 :00 No Rolanda peoples TOPIRAMATE 50 MG TABS 2022-08 00:00: 00 Yes Georgi Delaney TAKE 1 TABLET BY MOUTH EVERY DAY IN THE MORNING 2022-08 00:00: 00 Yes Georgi Delaney topiramate 50 mg tablet 2022-08 00:00: 00 09-18 00:00 :00 No [id number] 50mg Take 1 tablet by mouth in the morning and 1 tablet in the evening. [facility] propranoloL 40 mg tablet 2022-08 00:00: 00 09-18 00:00 :00 No [id number] 40mg Take 1 tablet by mouth in the morning. [facility] rimegepant (NURTEC ODT) 75 mg TbDL 2022-08 00:00: 00 09-18 00:00 :00 No [id number] 75mg Take 1 tablet by mouth as needed (Headache) . [facility] PLEASE SEE ATTACHED FOR DETAILED DIRECTIONS 2022-08 0- 00:00: 00 Yes Georgi Delaney VENLAFAXINE HYDROCHLORI DE ER 75 MG CP24 05-09 00:00: 00 Yes Georgi Delaney hydrOXYzine 50 mg tablet 05-09 00:00: 00 06-06 00:00 :00 No [id number] Take 2 tablets at night as needed for insomnia. Can take an additional 2 tablets during the day as needed for anxiety. [facility] venlafaxine XR (EFFEXOR XR) 75 mg 24 hr capsule 05-09 00:00: 00 06-06 00:00 :00 No [id number] 75mg Take 1 capsule by mouth daily with breakfast. [facility] LEVOTHYROXI NE SODIUM 112 MCG TABS 05-04 [...] every 6 hours as needed for itching [facility] TAKE 1 CAPSULE BY MOUTH DAILY WITH BREAKFAST. 04-25 00:00: 00 Yes Georgi Delaney HYDROXYZINE HCL 50 MG TABS 04-25 00:00: 00 Yes Georgi Delaney venlafaxine XR (EFFEXOR XR) 75 mg 24 hr capsule 04-25 00:00: 00 05-09 00:00 :00 No [id number] 75mg Take 1 capsule by mouth daily with breakfast. [facility] TAKE 1 TO 2 TABLETS AT BEDTIME 04-22 00:00: 00 12-25 00:00 :00 No 25 Georgi Delaney NaCl 0.9% (NS) bolus infusion 1,000 mL 04-21 02:30: 00 04-21 04:53 :00 No 1000mL at 999 mL/hr, 1,000 mL, IV Infusion, ONCE, 1 dose, On Sun04/20/23 at 2130, STAT [facility] ketorolac (TORADOL) injection 30 mg 04-21 02:30: 00 04-21 02:47 :00 No 30mg 30 mg, Slow IV Push, ONCE, 1 dose, On Sun04/20/23 at 2130, PAWEL [facility] proCHLORper azine (COMPAZINE) 10 mg in NaCl 0.9% (NS) piggyback 04-21 02:15: 00 04-21 04:47 :00 No 10mg 10 mg, IV Piggyback, at 100 mL/hr Administer over 30 Minutes, ONCE, 1 dose, On Sun04/20/23 at 2115, Routine [facility] diphenhydrA MINE (BENADRYL) injection 25 mg 04-21 01:30: 00 04-21 02:46 :00 No 25mg 25 mg, Slow IV Push, ONCE, 1 dose, On Sun04/20/23 at 2030, STAT [facility] sulfamethox azole-trime thoprim 400-80 mg per tablet 04-20 20:09: 31 04-20 00:00 :00 No 1{tbl} Take 1 tablet by mouth in the morning and 1 tablet in the evening. [facility] TAKE 1 TABLET DAILY. 04-17 00:00: 00 12-25 00:00 :00 No 375 Georgi Delaney TAKE 1 TABLET TWICE A DAY WITH MEALS 04-17 00:00: 00 12-25 00:00 :00 No 500 Georgi Delaney VENLAFAXINE HYDROCHLORI DE ER 37.5 MG CP24 04-04 00:00: 00 Yes Georgi Delaney venlafaxine XR (EFFEXOR XR) 37.5 mg 24 hr capsule 04-04 00:00: 00 04-25 00:00 :00 No [id number] 37.5mg Take 1 capsule by mouth daily with breakfast. [facility] Ziprasidone HCl 20 MG oral Capsule 03-21 00:00: 00 02-04 00:00 :00 No Rolanda Vogel - Tawanna peoples metFORMIN 500 mg tablet 03-19 14:17: 04 Yes 500mg Take 1 tablet by mouth in the morning and 1 tablet in the evening. Take with meals. [facility] sulfamethox azole-trime thoprim 400-80 mg per tablet 03-19 14:17: 04 Yes 1{tbl} Take 1 tablet by mouth in the morning and 1 tablet in the evening. [facility] PROPRANOLOL HYDROCHLORI DE 40 MG TABS 03-19 00:00: 00 Yes Georgi Delaney TOPIRAMATE 50 MG TABS 03-19 00:00: 00 Yes Georgi Delaney propranoloL 40 mg tablet 03-19 00:00: 00 05-24 00:00 :00 No [id number] 40mg Take 1 tablet by mouth in the morning. [facility] topiramate 50 mg tablet 03-19 00:00: 00 05-24 00:00 :00 No [id number] 50mg Take 1 tablet by mouth in the morning and 1 tablet in the evening. [facility] Phentermine HCl 37.5 MG oral Tablet 03-13 [...] 03-06 00:00: 00 12-25 00:00 :00 No [id number] Georgi Delaney NURTEC 75 MG TBDP 02-27 00:00: 00 Yes Georgi Delaney rimegepant (NURTEC ODT) 75 mg TbDL 02-27 00:00: 00 05-24 00:00 :00 No [id number] 75mg Take 1 tablet by mouth daily as needed (Headache) . [facility] Naproxen 500 MG oral Tablet 02-23 00:00: 00 Yes [id number] Rolanda Howellybsundar - Externa l LATUDA 40 MG TABS 02-23 00:00: 00 Yes Georgi Delaney Lurasidone HCl (Latuda) 40 MG oral Tablet 02-23 00:00: 00 02-04 00:00 :00 No Rolanda peoples lurasidone (LATUDA) 20 mg tablet 02-23 00:00: 00 03-21 00:00 :00 No [id number] 20mg Take 1 tablet by mouth every evening. Start Latuda 20 mg with dinner (at least 500 kcal); after 1 week increase to 40 mg with dinner [facility] HYDROXYZINE HCL 50 MG TABS 02-22 00:00: 00 Yes Georgi Delaney Doxepin HCl 10 MG oral Capsule 02-22 00:00: 00 02-04 00:00 :00 No Rolanda peoples hydrOXYzine 50 mg tablet 02-22 00:00: 00 03-21 00:00 :00 No [id number] 50mg Take 1 tablet by mouth every 6 (six) hours as needed for Itching. [facility] lurasidone (LATUDA) 20 mg tablet 02-22 00:00: 00 02-23 00:00 :00 No [id number] Take one tablet by mouth with dinner (at least 500 calories) for 1 week. After 1 week increase to two tablets by mouth with dinner. [facility] TAKE 1 TABLET DAILY FOR MIGRAINE HEADACHE PROPHYLAXIS 02-21 00:00: 00 Yes Georgi Delaney TOPIRAMATE 25 MG TABS 02-20 00:00: 00 Yes Georgi Delaney TOPIRAMATE 50 MG TABS 02-20 00:00: 00 Yes Georgi Delaney topiramate 25 mg tablet 02-20 00:00: 00 03-19 00:00 :00 No 25mg Take 1 tablet by mouth in the morning and 1 tablet in the evening. Take for 7 days then increase to 50mg twice a day. [facility] topiramate 50 mg tablet 02-20 00:00: 00 03-19 00:00 :00 No 50mg Take 1 tablet by mouth in the morning and 1 tablet in the evening. [facility] topiramate 25 mg tablet 02-16 00:00: 00 03-03 04:59 :00 No [id number] Take 1 tablet by mouth 2 (two) times daily for 7 days, THEN 2 tablets 2 (two) times daily for 7 days. [facility] ubrogepant 100 mg Tab 02-16 00:00: 00 02-27 00:00 :00 No [id number] 100mg Take 1 tablet by mouth as needed for Other (Headache) for up to 10 doses. If symptoms persist or return, may repeat dose after 2 hours. Maximum: 200 mg per 24 hours [facility] VENTOLIN HFA 90 mcg/actuati on inhaler 02-09 00:00: 00 04-20 00:00 :00 No INHALE 2 PUFFS EVERY 3-4 HOURS NEEDED FOR WHEEZING, COUGH, SHORTNESS OF BREATH [facility] TAKE 1 TABLET DAILY NEEDED FOR MIGRAINE. [...] 01-23 00:00: 00 12-25 00:00 :00 No [id number] Georgi Delaney TAKE 1 TABLET DAILY FOR MIGRAINE HEADACHE PROPHYLAXIS 01-23 00:00: 00 12-25 00:00 :00 No 40 Georgi Alex Delaney TAKE 2 TABLETS ON DAY 1 THEN TAKE 1 TABLET A DAY FOR 4 DAYS. 01-17 00:00: 00 12-25 00:00 :00 No 250 Georgimariama Delaney TAKE 5 ML EVERY 4-6 HOURS, MAY INCREASE TO 10ML AT NIGHT TIME NEEDED. 01-17 00:00: 00 12-25 00:00 :00 No [id number] Georgi Alex Delaney PREDNISONE 10 MG TABS 01-06 00:00: 00 Yes Georgi Delaney TRAMADOL HYDROCHLORI DE ER 100 MG TB24 01-01 00:00: 00 Yes Georgi Delaney traMADoL 100 mg 24 hr tablet 01-01 00:00: 00 04-20 00:00 :00 No TAKE 1 TABLET BY MOUTH EVERY DAY NEEDED FOR SEVERE PAIN [facility] HYDROCODONE BITARTRATE/ ACETAMINOPH E N 7.5-325 MG/15ML SOLN 12-28 00:00: 00 Yes Georgi Delaney INHALE 2 PUFFS EVERY 3-4 HOURS NEEDED FOR WHEEZING, COUGH, SHORTNESS OF BREATH 12-22 00:00: 00 Yes Georgi Delaney INHALE 2 PUFFS EVERY 3-4 HOURS PRN WHEEZING, COUGH, SHORTNESS OF BREATH 12-22 00:00: 00 12-25 00:00 :00 No [id number] Georgi Delaney METHYLPREDN ISOLONE DOSE PACK 4 MG TBPK 12-16 00:00: 00 Yes Georgi Delaney TAKE 5 ML EVERY 4-6 HOURS, MAY INCREASE TO 10ML AT NIGHT TIME NEEDED. 12-16 00:00: 00 12-25 00:00 :00 No [id number] Georgi Delaney FOLLOW DIRECTIONS ON PACKAGE 12-16 00:00: 00 12-25 00:00 :00 No 4 Georgi Delaney levothyroxi ne 112 mcg tablet 12-09 00:00: 00 Yes [facility] DICYCLOMINE HYDROCHLORI DE 20 MG TABS 12-09 [...] 300 Georgi Delaney ONDANSETRON ODT 4 MG 3- 00:00: 00 Yes Georgi Delaney TAKE 1 TABLET BY MOUTH EVERY 12 HOURS FOR 10 DAYS - 00:00: 00 Yes Georgi Delaney TAKE 1 TABLET AT BEDTIME. 3-09 00:00: 00 12-25 00:00 :00 No 8 Georgi F Rhett TAKE 1 TABLET 3 TIMES DAILY. 3-09 00:00: 00 12-25 00:00 :00 No 300 Georgi F Rhett TAKE 1 TABLET EVERY MORNING. 3-09 00:00: 00 12-25 00:00 :00 No 300 Georgi F Rhett TAKE 1 TABLET DAILY. 3- 00:00: 00 12-25 00:00 :00 No 8 Georgi F Rhett TAKE 1 TABLET DAILY. 3- 00:00: 00 12-25 00:00 :00 No 50 Georgi F Rhett TAKE 1 CAPSULE BY MOUTH ONCE DAILY 2-27 00:00: 00 12-25 00:00 :00 No [id number] Georgi Alex Delaney TAKE 1 TABLET 3 TIMES DAILY. 2-17 00:00: 00 12-25 00:00 :00 No 300 Georgi F Rhett TAKE 1 TABLET AT BEDTIME. 2-17 00:00: 00 12-25 00:00 :00 No 8 Georgi F Rhett TAKE 1 TABLET TWICE A DAY WITH MEALS 2-07 00:00: 00 12-25 00:00 :00 No 500 Georgi F Rhett TAKE 1 TABLET EVERY MORNING. 2-03 00:00: 00 12-25 00:00 :00 No 300 Georgi F Rhett TAKE 1 TABLET AT BEDTIME. 2-03 00:00: 00 12-25 00:00 :00 No 8 Georgi F Rhett TAKE 2 TABLETS 3 TIMES DAILY. 2-03 00:00: 00 12-25 00:00 :00 No 10 Georgi F Rhett TAKE 1 TABLET 3 TIMES DAILY. 2-03 00:00: 00 12-25 00:00 :00 No 300 Georgi F Rhett TAKE 1 TABLET DAILY. 1-31 00:00: 00 12-25 00:00 :00 No 8 Georgi F Rhett CHLORTHALID ONE 25 MG 09-05 00:00: 00 Yes Georgi Delaney TAKE 1 CAPSULE BY MOUTH ONCE DAILY 09-05 00:00: 00 12-25 00:00 :00 No [id number] Georgimariama Delaney USE DIRECTED 09-04 00:00: 00 12-25 00:00 :00 No 68 Georgi Delaney TAKE 1 TABLET AT BEDTIME. 09-04 00:00: 00 12-25 00:00 :00 No 100 Georgi Delaney TAKE 2 TABLETS 3 TIMES DAILY. 09-04 00:00: 00 12-25 00:00 :00 No 10 Georgimariama Delaney TAKE 1 TABLET TWICE DAILY. 09-04 [...] Georgi Delaney TAKE 1 TABLET TWICE DAILY. 2022-1 2-15 00:00: 00 No TAKE 1 TABLET 3 TIMES DAILY. 2021-1 2-15 00:00: 00 No TAKE 1 TABLET DAILY. 2021-1 2-15 00:00: 00 No TAKE 1 TABLET AT BEDTIME. 2021-1 2-15 00:00: 00 No Dose Unknown [...] No Dose Unknown 2021-1 2-15 00:00: 00 Yes Georgi F Rhett Dose Unknown 2021-08 2-15 00:00: 00 Yes Georgi F Rhett Dose Unknown 2021-08 2-15 00:00: 00 Yes Georgi F Rhett TAKE 1 TABLET BY MOUTH EVERY 8 HOURS NEEDED FOR MUSCLE SPASMS 2021-1 2-15 00:00: 00 Yes Georgi F Rhett Dose Unknown 2021-08 2-15 00:00: 00 Yes Georgi F Rhett Dose Unknown 2021-08 2-15 00:00: 00 Yes Georgi F Rhett Dose Unknown 2021-08 2-15 00:00: 00 Yes Georgi F Rhett Dose Unknown 2021-08 2-15 00:00: 00 Yes Georgi F Rhett Dose Unknown 2021-08 2-15 00:00: 00 Yes Georgi F Rhett TAKE 1 TABLET TWICE DAILY. 2021- 2-15 00:00: 00 2023- 05-15 00:00 :00 No Georgi F Rhett TAKE 1 TABLET 3 TIMES DAILY. 2021-08 2-15 00:00: 00 12-25 00:00 :00 No Georgi F Rhett TAKE 1 TABLET DAILY. 2021-08 2-15 00:00: 00 12-25 00:00 :00 No Georgi F Rhett TAKE 1 TABLET AT BEDTIME. 2021-08 2- 00:00: 00 12-25 00:00 :00 No Georgi [...] 2021-08 00:00: 00 12-25 00:00 :00 No Georgi F Rhett TAKE 1 TABLET DAILY. 2021-08 1 00:00: 00 No TAKE 1 TABLET DAILY. 2021-08 00:00: 00 No TAKE 1 TABLET DAILY. 2021-08 116 00:00: 00 12-25 00:00 :00 No Georgi F Rhett TAKE 1 TABLET DAILY. 2021-08 0 00:00: 00 No 112 TAKE 1 TABLET DAILY. 2021-08 0-27 00:00: 00 12-25 00:00 :00 No 112 Georgi Alex Delaney BUPROPION HCL XL 150 MG 2021-08 0-18 00:00: 00 Yes Georgi F Rhett Dose Unknown 8-08 00:00: 00 No Dose Unknown 8-08 00:00: 00 No Dose Unknown 8-08 00:00: 00 No Dose Unknown 8-08 00:00: 00 No Dose Unknown 8-08 00:00: 00 No Dose Unknown 8-08 00:00: 00 No Dose Unknown 8-08 00:00: 00 No Dose Unknown 2-0 8 00:00: 00 No Dose Unknown 2-0 8 00:00: 00 No Dose Unknown 2-0 8 00:00: 00 No Dose Unknown 2-0 8 00:00: 00 No Dose Unknown 2-0 8 00:00: 00 No Dose Unknown 2-0 8 00:00: 00 Yes Georgi Delaney Dose Unknown 2021-0 8 00:00: 00 Yes Georgi Delaney Dose Unknown 2021-0 03-20 00:00: 00 Yes Georgi Delaney Dose Unknown 2021-0 8 00:00: 00 No Dose Unknown 2-0 8 00:00: 00 No Dose Unknown 2-0 03-15 00:00: 00 No Dose Unknown 2021-0 03-15 00:00: 00 No Dose Unknown 2021-0 8 00:00: 00 Yes Georgi Delaney Wellbutrin [...] 2021-0 8 00:00: 00 No Dose Unknown 2-0 8 00:00: 00 No Dose Unknown 2021-0 8 00:00: 00 No TAKE 1 TABLET TWICE DAILY. 2-0 8 00:00: 00 No TAKE 1 TABLET AT BEDTIME. 2-0 8 00:00: 00 No Dose Unknown 2-0 8 00:00: 00 No Dose Unknown 2-0 8 00:00: 00 No Dose Unknown 2-0 8 00:00: 00 No Dose Unknown 2-0 8 00:00: 00 No Dose Unknown 2021-0 8 00:00: 00 No Dose Unknown 2022-0 8 00:00: 00 No Dose Unknown 0 03-14 [...] tablet, extended release 0 03-14 00:00: 00 Yes 1mg Georgi Alex Delaney Trileptal 150 mg tablet 0 03-14 00:00: 00 Yes 1mg Georgi F Rhett buspirone 10 mg tablet 0 03-14 00:00: 00 Yes 1mg Georgi F Rhett Seroquel 100 mg tablet 0 03-14 00:00: 00 Yes 1mg Georgi F Rhett Dose Unknown 0 03-14 00:00: 00 Yes Georgi F Rhett Dose Unknown 0 03-14 00:00: 00 Yes Georgi F Rhett Dose Unknown 0 8- 00:00: 00 Yes Georgi Delaney Dose Unknown 2022-0 8- 00:00: 00 Yes Georgi Delaney Dose Unknown 2022-0 8- 00:00: 00 Yes Georgi Delaney Dose Unknown 2022-0 8-02 00:00: 00 Yes 300 Georgi Delaney Dose Unknown 2022-0 8- 00:00: 00 Yes 10 Georgi Delaney Dose Unknown 2022-0 7-30 00:00: 00 No [...] 00 Yes Georgi Delaney Dose Unknown 2022-0 730 00:00: 00 Yes [...] 00 Yes Georgi Delaney Dose Unknown 2022-0 7-21 00:00: 00 No Dose Unknown 2022-0 721 00:00: 00 No Dose Unknown 2022-0 7-21 [...] 00 Yes Georgi Delaney Dose Unknown 2022-0 721 00:00: 00 Yes Georgi Delaney Dose Unknown 2022-0 7 00:00: 00 Yes Georgi Delaney Dose Unknown 2022-0 7 00:00: 00 Yes Georgi Delaney Dose Unknown 2022-0 7 00:00: 00 No Dose Unknown 2022-0 720 00:00: 00 No Dose Unknown 2022-0 7 00:00: 00 No Dose Unknown 2022-0 7 00:00: 00 No Dose Unknown 2-0 03-01 00:00: 00 No Dose Unknown 2-0 03-01 00:00: 00 Yes Georgi Delaney Wellbutrin XL 300 mg 24 hr tablet, extended release 2-0 02-28 00:00: 00 No 1mg buspirone 10 mg tablet 2-0 02-28 00:00: 00 No 1mg Dose Unknown 2021-0 02-28 00:00: 00 No Dose Unknown 2021-0 02-28 00:00: 00 No Dose Unknown 2021-0 02-28 00:00: 00 No Dose Unknown 2-0 02-28 00:00: 00 No Dose Unknown 2-0 02-28 00:00: 00 No Dose Unknown 2021-0 02-28 00:00: 00 No TAKE 1 TABLET AT BEDTIME. 2-0 02-28 00:00: 00 No Dose Unknown 2021-0 02-28 00:00: 00 No Dose Unknown 2021-0 02-28 00:00: 00 No Dose Unknown 2021-0 02-28 00:00: 00 No Dose Unknown 2021-0 02-28 00:00: 00 No Dose Unknown 2-0 02-28 00:00: 00 No Dose Unknown 2-0 02-28 00:00: 00 No Dose Unknown 2021-0 02-28 00:00: 00 No Wellbutrin XL 300 mg 24 hr tablet, extended release 2021-0 02-28 00:00: 00 No 1mg buspirone 10 mg tablet 2-0 02-28 00:00: 00 No 1mg Lamictal 25 mg tablet 2-0 02-28 00:00: 00 No 2mg Seroquel 100 mg tablet 2-0 02-28 00:00: 00 No 1mg Dose Unknown 2021-0 02-28 00:00: 00 No Dose Unknown 2-0 02-28 00:00: 00 No Dose Unknown 2-0 02-28 00:00: 00 No Dose Unknown 2021-0 02-28 00:00: 00 No Wellbutrin XL 300 mg 24 hr tablet, extended release 2-0 02-28 00:00: 00 No 1mg buspirone 10 mg tablet 2-0 02-28 00:00: 00 No 1mg Dose Unknown 2-0 02-28 00:00: 00 No Seroquel 100 mg tablet 2-0 02-28 00:00: 00 No 1mg Dose Unknown 2021-0 02-28 00:00: 00 No Dose Unknown 2021-0 02-28 00:00: 00 No Dose Unknown 2021-0 02-28 00:00: 00 No Dose Unknown 2021-0 02-28 00:00: 00 No Wellbutrin XL 300 mg 24 hr tablet, extended release 2-0 02-28 00:00: 00 No 1mg buspirone 10 mg tablet 2-0 02-28 00:00: 00 No 1mg Dose Unknown 2021-0 02-28 00:00: 00 No Dose Unknown 2021-0 02-28 00:00: 00 No Dose Unknown 2021-0 02-28 00:00: 00 No Dose Unknown 2021-0 02-28 00:00: 00 No Dose Unknown 2021-0 02-28 00:00: 00 No Dose Unknown 2021-0 02-28 00:00: 00 No Wellbutrin XL 300 mg 24 hr tablet, extended release 2021-0 02-28 00:00: 00 Yes 1mg Georgi Delaney buspirone 10 mg tablet 2021-0 02-28 00:00: 00 Yes 1mg Georgi Delaney Lamictal 25 mg tablet 2021-0 02-28 00:00: 00 Yes 2mg Georgi Delaney Seroquel 100 mg tablet 2021-0 02-28 00:00: 00 Yes 1mg Georgi Delaney Dose Unknown 2021-0 02-28 00:00: 00 Yes Georgi Delaney Dose Unknown 2021-0 02-28 00:00: 00 Yes Georgi F Rhett Dose Unknown 2021-0 02-28 00:00: 00 Yes Georgi F Rhett Dose Unknown 0 02-28 00:00: 00 Yes Georgi F Rhett Dose Unknown 0 02-22 00:00: 00 No Dose Unknown 2021-0 02-22 00:00: 00 No Dose Unknown 2021-0 02-22 00:00: 00 No Dose Unknown 2021-0 02-22 00:00: 00 No Dose Unknown 2022-0 7-13 [...] 7-07 00:00: 00 No Dose Unknown 2022-0 7 [...] 02-16 00:00: 00 No Dose Unknown 2022-0 7 [...] 00 Yes Georgi Delaney Dose Unknown 2022-0 02-15 00:00: 00 No Dose Unknown 2022-0 7 00:00: 00 No Dose Unknown 2022-0 7 00:00: 00 No Dose Unknown 2022-0 7 00:00: 00 No Dose Unknown 2022-0 02-15 00:00: 00 No Dose Unknown 2022-0 7 00:00: 00 Yes Georgi Delaney Wellbutrin XL 300 mg 24 hr tablet, extended release 2022-0 02-14 00:00: 00 No 1mg buspirone 10 [...] tablet, extended release 0 02-14 00:00: 00 Yes 1mg Georgi Delaney buspirone 10 mg tablet 2021-0 02-14 00:00: 00 Yes 1mg Georgi Delaney Seroquel 100 mg tablet 0 02-14 00:00: 00 Yes 1mg Georgi Delaney Lamictal 25 mg tablet 0 02-14 00:00: 00 Yes 1mg Georgi Delaney Dose Unknown 0 02-14 00:00: 00 Yes Georgi Delaney Dose Unknown 2021-0 02-14 00:00: 00 Yes Georgi Delaney Dose Unknown 2021-0 02-14 00:00: 00 Yes Georgi Delaney Dose Unknown 0 02-09 00:00: 00 No Dose Unknown 2021-0 02-09 00:00: 00 No Dose Unknown 2-0 6 00:00: 00 No Dose Unknown 2-0 6 00:00: 00 No Dose Unknown 2021-0 6 00:00: 00 No Dose Unknown 2-0 6 00:00: 00 No Dose Unknown 2-0 6 00:00: 00 No Dose Unknown 2-0 6 00:00: 00 No Dose Unknown 2-0 6 00:00: 00 No Dose Unknown 2-0 6 00:00: 00 No Dose Unknown 2-0 6 00:00: 00 Yes Georgi Delaney Dose Unknown 2021-0 6 00:00: 00 Yes Georgi Delaney levothyroxi ne 112 mcg tablet 01-19 00:00: 00 No 1mcg Dose Unknown 01-19 00:00: 00 No levothyroxi ne 112 mcg tablet 01-19 00:00: 00 No 1mcg levothyroxi ne 112 mcg tablet 01-19 00:00: 00 No 1mcg levothyroxi ne 112 mcg tablet 01-19 00:00: 00 No 1mcg levothyroxi ne 112 mcg tablet 01-19 00:00: 00 Yes 1mcg Georgi Johnson Rhett Dose Unknown 01-19 00:00: 00 Yes 112 Georgi Alex Delaney Dose Unknown 01-19 00:00: 00 Yes 112 Georgi Delaney TAKE 1 TABLET DAILY. 01-18 00:00: 00 No levothyroxi ne 50 mcg tablet 01-18 00:00: 00 No 1mcg TAKE 1 TABLET DAILY. 01-18 00:00: 00 No Dose Unknown 01-18 00:00: 00 No chlorthalid one 25 mg tablet 01-18 00:00: 00 No 1mg levothyroxi ne 50 mcg tablet 01-18 00:00: 00 No 1mcg chlorthalid one 25 mg tablet 01-18 00:00: 00 No 1mg levothyroxi ne 50 mcg tablet 01-18 00:00: 00 No 1mcg chlorthalid one 25 mg tablet 01-18 00:00: 00 No 1mg levothyroxi ne 50 mcg tablet 01-18 00:00: 00 No 1mcg chlorthalid one 25 mg tablet 01-18 00:00: 00 Yes 1mg Georgi Delaney levothyroxi ne 50 mcg tablet 01-18 00:00: 00 Yes 1mcg Georgi Alex Rhett spironolact one 100 mg tablet 12-22 00:00: 00 No 1mg ibuprofen 800 mg tablet 12-22 00:00: 00 No 1mg Dose Unknown 12-22 00:00: 00 No Dose Unknown 12-22 00:00: 00 No spironolact one 100 mg tablet 2021-0 - 00:00: 00 No 1mg ibuprofen 800 mg tablet 0 - 00:00: 00 No 1mg spironolact one 100 mg tablet 0 12-22 00:00: 00 No 1mg ibuprofen 800 mg tablet 2021-0 12-22 00:00: 00 No 1mg spironolact one 100 mg tablet 0 12-22 00:00: 00 No 1mg ibuprofen 800 mg tablet 0 12-22 00:00: 00 No 1mg spironolact one 100 mg tablet 0 12-22 00:00: 00 Yes 1mg Georgi Johnson Rhett ibuprofen 800 mg tablet 0 12-22 00:00: 00 Yes 1mg Georgi Delaney Wellbutrin XL 300 mg 24 hr tablet, extended release 0 12-13 00:00: 00 No 1mg Dose Unknown 2021-0 - 00:00: 00 No buspirone 10 mg tablet 0 12-13 00:00: 00 No 1mg Dose Unknown 0 12-13 00:00: 00 No TAKE 1 TABLET AT BEDTIME. 2021-0 12-13 00:00: 00 No Dose Unknown 0 - 00:00: 00 No Dose Unknown 2021-0 12-13 00:00: 00 No Dose Unknown 2021-0 12-13 00:00: 00 No Wellbutrin XL 300 mg 24 hr tablet, extended release 2021-0 - 00:00: 00 No 1mg Celexa 20 mg tablet 2021-0 5- 00:00: 00 No 1mg buspirone 10 mg tablet 2021-0 - 00:00: 00 No 1mg Seroquel 100 mg tablet 2021-0 5- 00:00: 00 No 1mg Wellbutrin XL 300 mg 24 hr tablet, extended release 2021-0 - 00:00: 00 No 1mg Dose Unknown 2021-0 5- 00:00: 00 No buspirone 10 mg tablet 2021-0 5- 00:00: 00 No 1mg Seroquel 100 mg tablet 2021-0 5- 00:00: 00 No 1mg Wellbutrin XL 300 mg 24 hr tablet, extended release 0 - 00:00: 00 No 1mg Dose Unknown 0 12-13 00:00: 00 No buspirone 10 mg tablet 0 - 00:00: 00 No 1mg Dose Unknown 0 12-13 00:00: 00 No Wellbutrin XL 300 mg 24 hr tablet, extended release 0 - 00:00: 00 Yes 1mg Georgi Delaney Celexa 20 mg tablet 0 - 00:00: 00 Yes 1mg Georgi Delaney buspirone 10 mg tablet 0 12-13 00:00: 00 Yes 1mg Georgi Delaney Seroquel 100 mg tablet 0 12-13 00:00: 00 Yes 1mg Georgi Delaney CITALOPRAM HBR 20 MG 0 12-13 00:00: 00 Yes Georgi Delaney levothyroxi ne 25 mcg tablet 0 11-28 00:00: 00 No 1mcg Dose Unknown 0 11-28 00:00: 00 No levothyroxi ne 25 mcg tablet 0 18 00:00: 00 No 1mcg levothyroxi ne 25 mcg tablet 0 18 00:00: 00 No 1mcg levothyroxi ne 25 mcg tablet 0 18 00:00: 00 No 1mcg levothyroxi ne 25 mcg tablet 0 18 00:00: 00 Yes 1mcg Georgi Delaney spironolact one 50 mg tablet 0 -17 00:00: 00 No 1mg Dose Unknown 0 - 00:00: 00 No spironolact one 50 mg tablet 0 -17 00:00: 00 No 1mg spironolact one 50 mg tablet 0 -17 00:00: 00 No 1mg spironolact one 50 mg tablet 0 -17 00:00: 00 No 1mg spironolact one 50 mg tablet 0 -17 00:00: 00 Yes 1mg Georgi Delaney metformin ER 500 mg 24 hr tablet,exte nded release 11-24 00:00: 00 No 1mg spironolact one 50 mg tablet 11-24 00:00: 00 No 1mg levothyroxi ne 25 mcg tablet 11-24 00:00: 00 No 1mcg Dose Unknown 11-24 00:00: 00 No Dose Unknown 11-24 00:00: 00 No Dose Unknown 11-24 00:00: 00 No Dose Unknown 11-24 00:00: 00 No metformin ER 500 mg [...] mg 24 hr tablet, extended release 2022-0 4-06 00:00: 00 No 1mg Wellbutrin XL 300 mg 24 hr tablet, extended release 2-0 06 00:00: 00 No 1mg Wellbutrin XL 300 mg 24 hr tablet, extended release 2-0 06 00:00: 00 No 1mg Wellbutrin XL 300 mg 24 hr tablet, extended release 2-0 06 00:00: 00 Yes 1mg Georgi F Rhett Dose Unknown 2021-0 06 00:00: 00 Yes 300 Georgi F Rhett Dose Unknown 2021-0 405 00:00: 00 No [...] release 2021-0 405 00:00: 00 No 1mg buspirone 10 mg tablet 2-0 405 00:00: 00 No 1mg Seroquel 100 mg tablet 2021-0 405 00:00: 00 No 1mg Dose Unknown 2021-0 4-05 00:00: 00 No Dose Unknown 2021-0 405 00:00: 00 No Dose Unknown 2021-0 405 00:00: 00 No TAKE 1 TABLET AT BEDTIME. 2021-0 4-05 00:00: 00 No Wellbutrin XL 300 mg 24 hr tablet, extended release 2021-0 4-05 00:00: 00 No 1mg Dose Unknown 2021-0 4-05 00:00: 00 No Dose Unknown 2021-0 4-05 00:00: 00 No Dose Unknown 2021-0 4-05 00:00: 00 No Dose Unknown 2021-0 4-05 00:00: 00 No Dose Unknown 2021-0 4-05 00:00: 00 No Dose Unknown 2022-0 [...] tablet, extended release 2021-0 4-05 00:00: 00 Yes 1mg Georgi Delaney buspirone 10 mg tablet 2-0 4-05 00:00: 00 Yes 1mg Georgi Delaney Seroquel 100 mg tablet 2-0 4-05 00:00: 00 Yes 1mg Georgi Alex Delaney Dose Unknown 2-0 4-05 00:00: 00 Yes Georgi F Rhett Dose Unknown 2-0 4-05 00:00: 00 Yes Georgi F Rhett Dose Unknown 2-0 4-05 00:00: 00 Yes Georgi F Rhett Dose Unknown 2022-0 3-03 00:00: 00 No [...] 2022-0 2-08 00:00: 00 No Dose Unknown 2-0 2-08 00:00: 00 No Dose Unknown 2-0 2-08 00:00: 00 No levothyroxi ne 25 mcg tablet 2-0 2-08 00:00: 00 No 1mcg Dose Unknown 2-0 2-08 00:00: 00 No Celexa 20 mg tablet 2-0 2-08 00:00: 00 No 1mg Dose Unknown 2022-0 2-08 00:00: 00 No Dose Unknown 2-0 2-08 00:00: 00 No Dose Unknown 2-0 2-08 00:00: 00 No levothyroxi ne 25 mcg tablet 2-0 2-08 00:00: 00 No 1mcg Dose Unknown 2-0 2-08 00:00: 00 No Celexa 20 mg tablet 2-0 2-08 00:00: 00 No 1mg Dose Unknown 2-0 2-08 00:00: 00 No Dose Unknown 2-0 2-08 00:00: 00 No Dose Unknown 2-0 2-08 00:00: 00 No levothyroxi ne 25 mcg tablet 2-0 2-08 00:00: 00 No 1mcg Dose Unknown 2-0 2-08 00:00: 00 No Celexa 20 mg tablet 2-0 2-08 00:00: 00 No 1mg Dose Unknown 2-0 2-08 00:00: 00 No Dose Unknown 2-0 2-08 00:00: 00 No Dose Unknown 2-0 2-08 00:00: 00 No levothyroxi ne 25 mcg tablet 2-0 2-08 00:00: 00 No 1mcg Dose Unknown 2-0 2-08 00:00: 00 Yes Georgi Johnson Rhett Celexa 20 mg tablet 2-0 2-08 00:00: 00 Yes 1mg Georgi Alex Delaney Dose Unknown 2022-0 2-08 00:00: 00 Yes Georgi F Rhett Dose Unknown 2022-0 2-08 00:00: 00 Yes Georgi F Rhett Dose Unknown 2022-0 2-08 00:00: 00 Yes Georgi Delaney levothyroxi ne 25 mcg tablet 2022-0 2-08 00:00: 00 Yes 1mcg Georgi Delaney [...] 24 00:00: 00 No Dose Unknown 2-0 124 00:00: 00 No Wellbutrin XL 150 mg 24 hr tablet, extended release 2-0 24 00:00: 00 No 1mg Dose Unknown 2-0 24 00:00: 00 No Dose Unknown 2-0 24 00:00: 00 No Dose Unknown 2-0 24 00:00: 00 No Wellbutrin XL 150 mg 24 hr tablet, extended release 2-0 24 00:00: 00 Yes 1mg Georgi F Rhett Dose Unknown 2-0 24 00:00: 00 Yes Georgi F Rhett Dose Unknown 2-0 24 00:00: 00 Yes Georgi F Rhett Dose Unknown 2-0 111 00:00: 00 No Wellbutrin XL 150 mg 24 hr tablet, extended release 2-0 111 00:00: 00 No 1mg Dose Unknown 2-0 [...] 150 mg 24 hr tablet, extended release 0 - 00:00: 00 No 1mg Dose Unknown 0 - 00:00: 00 No Dose Unknown 0 - 00:00: 00 No Dose Unknown 0 08-23 00:00: 00 No Wellbutrin XL 150 mg 24 hr tablet, extended release 0 08-23 00:00: 00 No 1mg Dose Unknown 0 08-23 00:00: 00 No Dose Unknown 0 08-23 00:00: 00 No Dose Unknown 0 08-23 00:00: 00 No Wellbutrin XL 150 mg 24 hr tablet, extended release 0 08-23 00:00: 00 No 1mg Dose Unknown 0 08-23 00:00: 00 No Dose Unknown 0 08-23 00:00: 00 No Wellbutrin XL 150 mg 24 hr tablet, extended release 0 08-23 00:00: 00 Yes 1mg Georgi F Rhett Dose Unknown 0 08-23 00:00: 00 Yes Georgi F Rhett Dose Unknown 2020-08 2- 00:00: 00 No Dose Unknown 2020-08 2-20 00:00: 00 No Dose Unknown 2020-08 2-20 00:00: 00 No Zofran 4 mg tablet 2020-08 2-20 00:00: 00 No 1mg Dose Unknown 2020-08 2-20 00:00: 00 No omeprazole 40 mg capsule,del ayed release 2020-08 2-20 00:00: 00 No 1mg Zofran 4 mg tablet 2020-08 2-20 00:00: 00 No 1mg Dose Unknown 2020-08 2-20 00:00: 00 No omeprazole 40 mg capsule,del ayed release 2020-08 2-20 00:00: 00 No 1mg Zofran 4 mg tablet 2020-08 2-20 00:00: 00 No 1mg Dose Unknown 2020-08 2-20 00:00: 00 No omeprazole 40 mg capsule,del ayed release 2020-08 2-20 00:00: 00 No 1mg Zofran 4 mg tablet 2020-08 2-20 00:00: 00 No 1mg Dose Unknown 2020-08 [...] 1 dose, On Sun07/27/21 at 1500, Routine [facility] methocarbam oL (ROBAXIN) tablet 500 mg 2020-08 19:30: 00 07-27 18:29 :00 No 500mg 500 mg, Oral, ONCE, 1 dose, On Sun07/27/21 at 1330, Routine [facility] ketorolac (TORADOL) injection 30 mg 2020-08 19:30: 00 07-27 18:28 :00 No 30mg 30 mg, Slow IV Push, ONCE, 1 dose, On Sun07/27/21 at 1330, PAWEL
[employer] cult[employer] member approving Restricted medication : Yamil MESSINA [facility] aspirin chewable tablet 324 mg 2020-08 19:30: 00 07-27 19:30 :00 No 324mg 324 mg, Oral, ONCE, 1 dose, On Sun07/27/21 at 1330, Routine [facility] Dose Unknown 2020-08 00:00: 00 No hydroxyzine HCl 50 mg tablet 2020-08 00:00: 00 No 1mg Dose Unknown 2020-08 00:00: 00 No Dose Unknown 2020-08 00:00: 00 No hydroxyzine HCl 50 mg tablet 2020-08 00:00: 00 No 1mg Dose Unknown 2020-08 2 00:00: 00 No Dose Unknown 2020-08 2 00:00: 00 No hydroxyzine HCl 50 mg tablet 2020-08 2 00:00: 00 No 1mg Dose Unknown 2020-08 2 00:00: 00 No Dose Unknown 2020-08 2 00:00: 00 No hydroxyzine HCl 50 mg [...] 2020-08 00:00: 00 02-16 00:00 :00 No [id number] 40mg Take 1 tablet by mouth daily. [facility] ibuprofen 600 mg tablet 2020-08 00:00: 00 02-16 00:00 :00 No [id number] 600mg Take 1 tablet by mouth every 6 (six) hours as needed for Pain (scale 4-6). [facility] methocarbam oL 500 mg tablet 2020-08 00:00: 00 02-16 00:00 :00 No [id number] 500mg Take 1 tablet by mouth 4 (four) times daily. [facility] sertraline 100 mg tablet 2020-08 00:00: 00 [...] mg tablet 2020-08 00:00: 00 Yes 1mg Georgimariama Delaney trazodone 100 mg tablet 2020-08 00:00: 00 Yes 2mg Georgi Delaney acetaminoph en (TYLENOL) tablet 1,000 mg 2020-08 05:45: 00 06-25 04:43 :00 No 1000mg 1,000 mg, Oral, ONCE, 1 dose, On Sun06/24/21 at 2345, [facility] Dose Unknown 2020-08 00:00: 00 No [...] 2020-08 0-18 00:00: 00 Yes 1mg Georgi Alex Delaney trazodone 100 mg tablet 2020-08 0-18 [...] 50 mg tablet 2020-08 0-04 00:00: 00 Yes 1mg Georgi Delaney Dose Unknown 2020-08 0-04 00:00: 00 Yes Georgi Delaney sertraline 50 mg tablet 9 00:00: 00 No 1mg Dose Unknown 05-02 [...] 01-05 21:00: 00 01-05 21:00 :00 No [id number] 100 1{devic e} [facility] ibuprofen (IBU) tablet 800 mg 01-05 21:00: 00 01-05 21:00 :00 No [id number] 100 800mg [facility] levonorgest rel (LILETTA INTRAUTERIN E) 01-05 00:00: 00 01-05 04:59 :00 No by Intrauteri ne route. [facility] levonorgest rel (LILETTA INTRAUTERIN E) 01-05 00:00: 00 02-16 00:00 :00 No by Intrauteri ne route. [facility] ProAir HFA 90 mcg/actuati on aerosol inhaler [...] tuation Tessalon Perles 100 mg capsule 0 12-13 00:00: 00 No 1mg Tessalon Perles 100 mg capsule 0 12-13 00:00: 00 No 1mg ProAir HFA 90 mcg/actuati on aerosol inhaler 0 12-13 00:00: 00 No 2mcg/ac tuation Tessalon Perles 100 mg capsule 0 12-13 00:00: 00 No 1mg ProAir HFA 90 mcg/actuati on aerosol inhaler 0 12-13 00:00: 00 Yes 2mcg/ac tuation Georgi Delaney Tessalon Perles 100 mg capsule 0 12-13 00:00: 00 Yes 1mg Georgi Delaney mupirocin 2 % topical ointment 0 11-19 00:00: 00 No 1% clotrimazol e 1 % topical cream 0 11-19 00:00: 00 No 1% Diflucan 150 mg tablet 0 11-19 00:00: 00 No 1mg mupirocin 2 % topical ointment 0 11-19 00:00: 00 No 1% mupirocin 2 % topical ointment 0 11-19 00:00: 00 No 1% clotrimazol e 1 % topical cream 0 11-19 00:00: 00 No 1% Diflucan 150 mg tablet 0 11-19 00:00: 00 No 1mg clotrimazol e 1 % topical cream 0 11-19 00:00: 00 No 1% Diflucan 150 mg tablet 0 11-19 00:00: 00 No 1mg mupirocin 2 % topical ointment 0 11-19 00:00: 00 No 1% clotrimazol e 1 % topical cream 0 11-19 00:00: 00 No 1% Diflucan 150 mg tablet 0 11-19 00:00: 00 No 1mg mupirocin 2 % topical ointment 0 11-19 00:00: 00 No 1% clotrimazol e 1 % topical cream 0 11-19 00:00: 00 No 1% Diflucan 150 mg tablet 11-19 00:00: 00 No 1mg mupirocin 2 % topical ointment 11-19 00:00: 00 Yes 1% Georgi Delaney clotrimazol e 1 % topical cream 11-19 00:00: 00 Yes 1% Georgi Delaney Diflucan 150 mg tablet 11-19 00:00: 00 Yes 1mg Georgi Alex Delaney No known medications No [facility] No known medications No [facility] No known medications No [facility] Immunizations Ordered Immunization Name Filled Immunization Name [...] SARS-COV-2 COVID-19 PFIZER VACCINE 2020-12-02 00:00:00 Completed [facility] SARS-COV-2 COVID-19 PFIZER VACCINE 2020-12-02 00:00:00 Completed [facility] SARS-COV-2 COVID-19 PFIZER VACCINE 2020-12-02 00:00:00 Completed [facility] SARS-COV-2 COVID-19 PFIZER VACCINE 2020-12-02 00:00:00 Completed [facility] SARS-COV-2 COVID-19 PFIZER VACCINE 2020-12-02 00:00:00 Completed [facility] SARS-COV-2 COVID-19 PFIZER VACCINE 2020-12-02 00:00:00 Completed [facility] SARS-COV-2 COVID-19 PFIZER VACCINE 2020-12-02 00:00:00 Completed [facility] SARS-COV-2 COVID-19 PFIZER VACCINE 2020-12-02 00:00:00 Completed [facility] SARS-COV-2 COVID-19 PFIZER VACCINE 2020-12-02 00:00:00 Completed [facility] SARS-COV-2 COVID-19 PFIZER VACCINE 2020-12-02 00:00:00 Completed [facility] SARS-COV-2 COVID-19 PFIZER VACCINE 2020-12-02 00:00:00 Completed [facility] SARS-COV-2 COVID-19 PFIZER VACCINE 2020-12-02 00:00:00 Completed [facility] SARS-COV-2 COVID-19 PFIZER VACCINE 2020-12-02 00:00:00 Completed [facility] SARS-COV-2 COVID-19 PFIZER VACCINE 2020-12-02 00:00:00 Completed [facility] SARS-COV-2 COVID-19 PFIZER VACCINE 2020-12-02 00:00:00 Completed [facility] SARS-COV-2 COVID-19 PFIZER VACCINE 2020-12-02 00:00:00 Completed [facility] SARS-COV-2 COVID-19 PFIZER VACCINE 2020-12-02 00:00:00 Completed [facility] SARS-COV-2 COVID-19 PFIZER VACCINE 2020-12-02 00:00:00 Completed [facility] SARS-COV-2 COVID-19 PFIZER VACCINE 2020-12-02 00:00:00 Completed [facility] SARS-COV-2 COVID-19 PFIZER VACCINE 2020-12-02 00:00:00 Completed [facility] SARS-COV-2 COVID-19 PFIZER VACCINE 2020-12-02 00:00:00 Completed [facility] SARS-COV-2 COVID-19 PFIZER VACCINE 2020-12-02 00:00:00 Completed [facility] SARS-COV-2 COVID-19 PFIZER VACCINE 2020-12-02 00:00:00 Completed [facility] SARS-COV-2 COVID-19 PFIZER VACCINE 2020-12-02 00:00:00 Completed [facility] SARS-COV-2 COVID-19 PFIZER VACCINE 2020-12-02 00:00:00 Completed [facility] SARS-COV-2 COVID-19 PFIZER VACCINE 2020-12-02 00:00:00 Completed [facility] SARS-COV-2 COVID-19 PFIZER VACCINE 2020-12-02 00:00:00 Completed [facility] SARS-COV-2 COVID-19 PFIZER VACCINE 2020-12-02 00:00:00 Completed [facility] SARS-COV-2 COVID-19 PFIZER VACCINE 2020-11-09 00:00:00 Completed [facility] SARS-COV-2 COVID-19 PFIZER VACCINE 2020-11-09 00:00:00 Completed [facility] SARS-COV-2 COVID-19 PFIZER VACCINE 2020-11-09 00:00:00 Completed [facility] SARS-COV-2 COVID-19 PFIZER VACCINE 2020-11-09 00:00:00 Completed [facility] SARS-COV-2 COVID-19 PFIZER VACCINE 2020-11-09 00:00:00 Completed [facility] SARS-COV-2 COVID-19 PFIZER VACCINE 2020-11-09 00:00:00 Completed [facility] SARS-COV-2 COVID-19 PFIZER VACCINE 2020-11-09 00:00:00 Completed [facility] SARS-COV-2 COVID-19 PFIZER VACCINE 2020-11-09 00:00:00 Completed [facility] SARS-COV-2 COVID-19 PFIZER VACCINE 2020-11-09 00:00:00 Completed [facility] SARS-COV-2 COVID-19 PFIZER VACCINE 2020-11-09 00:00:00 Completed [facility] SARS-COV-2 COVID-19 PFIZER VACCINE 2020-11-09 00:00:00 Completed [facility] SARS-COV-2 COVID-19 PFIZER VACCINE 2020-11-09 00:00:00 Completed [facility] SARS-COV-2 COVID-19 PFIZER VACCINE 2020-11-09 00:00:00 Completed [facility] SARS-COV-2 COVID-19 PFIZER VACCINE 2020-11-09 00:00:00 Completed [facility] SARS-COV-2 COVID-19 PFIZER VACCINE 2020-11-09 00:00:00 Completed [facility] SARS-COV-2 COVID-19 PFIZER VACCINE 2020-11-09 00:00:00 Completed [facility] SARS-COV-2 COVID-19 PFIZER VACCINE 2020-11-09 00:00:00 Completed [facility] SARS-COV-2 COVID-19 PFIZER VACCINE 2020-11-09 00:00:00 Completed [facility] SARS-COV-2 COVID-19 PFIZER VACCINE 2020-11-09 00:00:00 Completed [facility] SARS-COV-2 COVID-19 PFIZER VACCINE 2020-11-09 00:00:00 Completed [facility] SARS-COV-2 COVID-19 PFIZER VACCINE 2020-11-09 00:00:00 Completed [facility] SARS-COV-2 COVID-19 PFIZER VACCINE 2020-11-09 00:00:00 Completed [facility] SARS-COV-2 COVID-19 PFIZER VACCINE 2020-11-09 00:00:00 Completed [facility] SARS-COV-2 COVID-19 PFIZER VACCINE 2020-11-09 00:00:00 Completed [facility] SARS-COV-2 COVID-19 PFIZER VACCINE 2020-11-09 00:00:00 Completed [facility] SARS-COV-2 COVID-19 PFIZER VACCINE 2020-11-09 00:00:00 Completed [facility] SARS-COV-2 COVID-19 PFIZER VACCINE 2020-11-09 00:00:00 Completed [facility] SARS-COV-2 COVID-19 PFIZER VACCINE 2020-11-09 00:00:00 Completed [facility] COVID-19 Bivalent vaccine PFIZER 12+ Unknown Completed Rolanda Se ybold - External COVID-19 Bivalent vaccine PFIZER 12+ Unknown Completed Rolanda Se ybold - External COVID-19 Bivalent vaccine PFIZER 12+ Unknown Completed Rolanda Se ybold - External COVID-19 Bivalent vaccine PFIZER 12+ Unknown Completed Rolanda Se ybold - External COVID-19 Bivalent vaccine PFIZER 12+ Unknown Completed Rolanda Se ybold - External COVID-19 Bivalent vaccine PFIZER 12+ Unknown Completed Rolanda Se ybold - External COVID-19 Bivalent vaccine PFIZER 12+ Unknown Completed Rolanda Se ybold - External COVID-19 Bivalent vaccine PFIZER 12+ Unknown Completed Rolanda Se ybold - External COVID-19 Bivalent vaccine PFIZER 12+ Unknown Completed Rolanda Se ybold - External COVID-19 Bivalent vaccine PFIZER 12+ Unknown Completed Rolanda Se ybold - External COVID-19 Bivalent vaccine PFIZER 12+ Unknown Completed Rolanda Se ybold - External COVID-19 Bivalent vaccine PFIZER 12+ Unknown Completed Rolanda Se ybold - External COVID-19 Bivalent vaccine PFIZER 12+ Unknown Completed Rolanda Se ybold - External COVID-19 Bivalent vaccine PFIZER 12+ Unknown Completed Rolanda Se ybold - External COVID-19 Bivalent vaccine PFIZER 12+ Unknown Completed Rolanda Se ybold - External SARS-COV-2 COVID-19 PFIZER VACCINE Unknown Completed [facility] SARS-COV-2 COVID-19 PFIZER VACCINE Unknown Completed [facility] SARS-COV-2 COVID-19 PFIZER VACCINE Unknown Completed [facility] SARS-COV-2 COVID-19 PFIZER VACCINE Unknown Completed [facility] SARS-COV-2 COVID-19 PFIZER VACCINE Unknown Completed [facility] SARS-COV-2 COVID-19 PFIZER VACCINE Unknown Completed [facility] SARS-COV-2 COVID-19 PFIZER VACCINE Unknown Completed [facility] SARS-COV-2 COVID-19 PFIZER VACCINE Unknown Completed [facility] SARS-COV-2 COVID-19 PFIZER VACCINE Unknown Completed [facility] SARS-COV-2 COVID-19 PFIZER VACCINE Unknown Completed [facility] SARS-COV-2 COVID-19 PFIZER VACCINE Unknown Completed [facility] SARS-COV-2 COVID-19 PFIZER VACCINE Unknown Completed [facility] SARS-COV-2 COVID-19 PFIZER VACCINE Unknown Completed [facility] SARS-COV-2 COVID-19 PFIZER VACCINE Unknown Completed [facility] SARS-COV-2 COVID-19 PFIZER VACCINE Unknown Completed [facility] SARS-COV-2 COVID-19 PFIZER VACCINE Unknown Completed [facility] SARS-COV-2 COVID-19 PFIZER VACCINE Unknown Completed [facility] SARS-COV-2 COVID-19 PFIZER VACCINE Unknown Completed [facility] SARS-COV-2 COVID-19 PFIZER VACCINE Unknown Completed [facility] SARS-COV-2 COVID-19 PFIZER VACCINE Unknown Completed [facility] SARS-COV-2 COVID-19 PFIZER VACCINE Unknown Completed [facility] SARS-COV-2 COVID-19 PFIZER VACCINE Unknown Completed [facility] SARS-COV-2 COVID-19 PFIZER VACCINE Unknown Completed [facility] SARS-COV-2 COVID-19 PFIZER VACCINE Unknown Completed [facility] SARS-COV-2 COVID-19 PFIZER VACCINE Unknown Completed [facility] SARS-COV-2 COVID-19 PFIZER VACCINE Unknown Completed [facility] SARS-COV-2 COVID-19 PFIZER VACCINE Unknown Completed [facility] SARS-COV-2 COVID-19 PFIZER VACCINE Unknown Completed [facility] SARS-COV-2 COVID-19 PFIZER VACCINE Unknown Completed [facility] SARS-COV-2 COVID-19 PFIZER VACCINE Unknown Completed [facility] SARS-COV-2 COVID-19 PFIZER VACCINE Unknown Completed [facility] SARS-COV-2 COVID-19 PFIZER VACCINE Unknown Completed [facility] SARS-COV-2 COVID-19 PFIZER VACCINE Unknown Completed [facility] SARS-COV-2 COVID-19 PFIZER VACCINE Unknown Completed [facility] SARS-COV-2 COVID-19 PFIZER VACCINE Unknown Completed [facility] SARS-COV-2 COVID-19 PFIZER VACCINE Unknown Completed [facility] Vital Signs Vital Name Observation Time Observation Value Comments S ource Systolic blood pressure 2024-11-17 20:06:00 134 mm[Hg] Rolanda Covarrubiaso ld - External Diastolic blood pressure 2024-11-17 20:06:00 97 mm[Hg] Rolanda Mccullough ld - External Heart rate 2024-11-17 20:06:00 113 /min Lane vargas Seybold - External Respiratory rate 2024-11-17 20:06:00 18 /min Rolanda Vogel - External Body height 2024-11-17 20:06:00 147.3 cm Reina goodwin Seybold - External Body weight 2024-11-17 20:06:00 141.976 kg Reina goodwin Seybold - External BMI 2024-11-17 20:06:00 65.42 kg/m2 Reina goodwin Seybold - External Systolic blood pressure 2024-11-11 18:29:00 110 mm[Hg] Rolanda Seybo ld - External Diastolic blood pressure 2024-11-11 18:29:00 78 mm[Hg] Rolanda Seybo ld - External Heart rate 2024-11-11 18:29:00 102 /min Kelse y Seybold - External Body temperature 2024-11-11 18:29:00 36.89 Cele Rolanda Seybold - External Respiratory rate 2024-11-11 18:29:00 15 /min Rolanda Seybold - External Body height 2024-11-11 18:29:00 147.3 cm Reina ey Seybold - External Body weight 2024-11-11 18:29:00 141.976 kg Reina ey Seybold - External BMI 2024-11-11 18:29:00 65.42 kg/m2 Reina ey Seybold - External Oxygen saturation in Arterial blood by Pulse oximetry 2024-11-11 18:29:00 98 /min Rolanda Seybo ld - External Systolic blood pressure 2024-10-06 21:17:00 116 mm[Hg] Rolanda Seybo ld - External Diastolic blood pressure 2024-10-06 21:17:00 68 mm[Hg] Rolanda Seybo ld - External Heart rate 2024-10-06 21:17:00 70 /min Kelse y Seybold - External Body temperature 2024-10-06 21:17:00 36.56 Cele Rolanda Seybold - External Respiratory rate 2024-10-06 21:17:00 20 /min Rolanda Seybold - External Body height 2024-10-06 21:17:00 147.3 cm Reina ey Seybold - External Body weight 2024-10-06 21:17:00 141.069 kg Reina ey Seybold - External BMI 2024-10-06 21:17:00 65.00 kg/m2 Reina ey Seybold - External Systolic blood pressure 2024-10-03 15:54:00 140 mm[Hg] Rolanda Seybo ld - External Diastolic blood pressure 2024-10-03 15:54:00 83 mm[Hg] Rolanda Seybo ld - External Heart rate 2024-10-03 15:54:00 86 /min Kelse y Seybold - External Body height 2024-10-03 15:54:00 147.3 cm Reina ey Seybold - External Oxygen saturation in Arterial blood by Pulse oximetry 2024-10-03 15:54:00 97 /min Rolanda Howellybo ld - External Systolic blood pressure 2024-09-16 19:26:00 116 mm[Hg] Rolanda Seybo ld - External Diastolic blood pressure 2024-09-16 19:26:00 80 mm[Hg] Rolanda Seybo ld - External Heart rate 2024-09-16 19:26:00 113 /min Kelse y Seybold - External Body temperature 2024-09-16 19:26:00 36.94 Cele Rolanda Seybold - External Respiratory rate 2024-09-16 19:26:00 15 /min Rolanda Seybold - External Body height 2024-09-16 19:26:00 144.8 cm Reina ey Seybold - External Body weight 2024-09-16 19:26:00 139.254 kg Reina ey Seybold - External BMI 2024-09-16 19:26:00 66.43 kg/m2 Reina ey Seybold - External Oxygen saturation in Arterial blood by Pulse oximetry 2024-09-16 19:26:00 97 /min Rolanda Howellybo ld - External Systolic blood pressure 2024-06-26 20:47:00 118 mm[Hg] Rolanda Seybo ld - External Diastolic blood pressure 2024-06-26 20:47:00 68 mm[Hg] Rolanda Howellybo ld - External Heart rate 2024-06-26 20:47:00 [...] Respiratory rate 2024-02-05 20:12:00 16 /min Rolanda Vogel - External Body height 2024-02-05 20:12:00 144.8 cm Reina Vogel - External Body weight 2024-02-05 20:12:00 120.203 kg Reina Vogel - External BMI 2024-02-05 20:12:00 57.35 kg/m2 Reina Vogel - External Systolic blood pressure 2023-12-26 14:03:00 134 mm[Hg] [facility] Diastolic blood pressure 2023-12-26 14:03:00 74 mm[Hg] [facility] Heart rate 2023-12-26 14:03:00 76 /[facility] Body temperature 2023-12-26 14:03:00 36.33 Cele [facility] Respiratory rate 2023-12-26 14:03:00 18 /min [facility] Body weight 2023-12-26 14:03:[address] [facility] BMI 2023-12-26 14:03:00 53.32 kg/m2 [facility] Systolic blood pressure 2023-12-25 14:23:00 119 mm[Hg] [facility] Diastolic blood pressure 2023-12-25 14:23:00 79 mm[Hg] [facility] Heart rate 2023-12-25 14:23:00 96 /min [facility] Respiratory rate 2023-12-25 14:23:00 18 /min [facility] Body height 2023-12-25 14:23:00 149.9 cm [facility] 2023-12-25 14:23:[address] [facility] BMI 2023-12-25 14:23:00 52.86 kg/m2 [facility] Oxygen saturation in Arterial blood by Pulse oximetry 2023-12-25 14:23:00 98 /min [facility] Systolic blood pressure 2023-11-29 04:39:00 154 mm[Hg] [facility] Diastolic blood pressure 2023-11-29 04:39:00 113 mm[Hg] [facility] Heart rate 2023-11-29 04:39:00 82 /min [facility] Body temperature 2023-11-29 04:39:00 37.28 Cele [facility] Respiratory rate 2023-11-29 04:39:00 18 /min [facility] Body height 2023-11-29 04:39:00 149.9 cm [facility] Body weight 2023-11-29 04:39:[address] [facility] BMI 2023-11-29 04:39:00 50.49 kg/m2 [facility] Oxygen saturation in Arterial blood by Pulse oximetry 2023-11-29 04:39:00 100 /min [facility] Systolic blood pressure 2023-11-01 13:26:00 126 mm[Hg] [facility] [facility] Di[facility] blood pressure 2023-11-01 13:26:00 84 mm[Hg] [facility] Heart rate 2023-11-01 13:26:00 74 /min Unive [facility] Respiratory rate 2023-11-01 13:26:00 18 /min [facility] Body height 2023-11-01 13:26:[address] [facility] Body weight 2023-11-01 13:26:[address] [facility] BMI 2023-11-01 13:26:00 55.22 kg/m2 [facility] Oxygen saturation in Arterial blood by Pulse oximetry 2023-11-01 13:26:00 98 /min [facility] Systolic blood pressure 2023-10-17 07:43:00 96 mm[Hg] [facility] Diastolic blood pressure 2023-10-17 07:43:00 53 mm[Hg] [facility] Heart rate 2023-10-17 07:43:00 66 /min Unive [facility] Body temperature 2023-10-17 07:43:00 36.5 Cele [facility] Oxygen saturation in Arterial blood by Pulse oximetry 2023-10-17 07:43:00 97 /min [facility] Respiratory rate 2023-10-17 05:50:00 16 /min [facility] Body height 2023-10-17 05:50:[address] [facility] Body weight 2023-10-17 05:50:[address] [facility] BMI 2023-10-17 05:50:00 55.59 kg/m2 [facility] Systolic blood pressure 2023-09-18 20:56:00 110 mm[Hg] [facility] Diastolic blood pressure 2023-09-18 20:56:00 76 mm[Hg] [facility] Heart rate 2023-09-18 20:56:00 76 /min Unive [facility] Body height 2023-09-18 20:56:[address] [facility] Body weight 2023-09-18 20:56:[address] [facility] BMI 2023-09-18 20:56:00 56.16 kg/m2 [facility] Oxygen saturation in Arterial blood by Pulse oximetry 2023-09-18 20:56:00 97 /min [facility] Systolic blood pressure 2023-08-28 17:17:00 132 mm[Hg] [facility] Diastolic blood pressure 2023-08-28 17:17:00 89 mm[Hg] [facility] Heart rate 2023-08-28 17:17:00 71 /min [facility] Oxygen saturation in Arterial blood by Pulse oximetry 2023-08-28 17:17:00 100 /min [facility] Body temperature 2023-08-28 17:16:00 36.28 Cele [facility] Respiratory rate 2023-08-28 17:16:00 18 /min [facility] Body height 2023-08-28 17:16:[address] [facility] Body weight 2023-08-28 17:16:[address] [facility] BMI 2023-08-28 17:16:00 56.79 kg/m2 [facility] Systolic blood pressure 2023-05-24 13:14:00 135 mm[Hg] [facility] Diastolic blood pressure 2023-05-24 13:14:00 80 mm[Hg] [facility] Heart rate 2023-05-24 13:14:00 81 /min Unive [facility] Respiratory rate 2023-05-24 13:14:00 18 /min [facility] Body height 2023-05-24 13:14:[address] [facility] Body weight 2023-05-24 13:14:[address] [facility] BMI 2023-05-24 13:14:00 58.46 kg/m2 [facility] Oxygen saturation in Arterial blood by Pulse oximetry 2023-05-24 13:14:00 99 /min [facility] Heart rate 2023-04-21 04:53:00 67 /min Unive [facility] Body temperature 2023-04-21 04:53:00 36.61 Cele [facility] Oxygen saturation in Arterial blood by Pulse oximetry 2023-04-21 04:53:00 99 /min [facility] Systolic blood pressure 2023-04-21 04:00:00 104 mm[Hg] [facility] Diastolic blood pressure 2023-04-21 04:00:00 57 mm[Hg] [facility] Respiratory rate 2023-04-21 00:26:00 20 /min [facility] Body height 2023-04-21 00:26:[address] [facility] Body weight 2023-04-21 00:26:[address] [facility] BMI 2023-04-21 00:26:00 60.16 kg/m2 [facility] Systolic blood pressure 2023-03-19 19:10:00 137 mm[Hg] [facility] Diastolic blood pressure 2023-03-19 19:10:00 88 mm[Hg] [facility] Heart rate 2023-03-19 19:10:00 93 /min Unive [facility] Respiratory rate 2023-03-19 19:10:00 18 /min [facility] Body height 2023-03-19 19:10:00 147.3 cm [facility] Body weight 2023-03-19 19:10:00 127.914 kg [facility] BMI 2023-03-19 19:10:00 58.94 kg/m2 [facility] Oxygen saturation in Arterial blood by Pulse oximetry 2023-03-19 19:10:00 98 /min [facility] Systolic blood pressure 2023-02-16 21:12:00 157 mm[Hg] [facility] Diastolic blood pressure 2023-02-16 21:12:00 95 mm[Hg] [facility] Heart rate 2023-02-16 21:12:00 95 /min [facility] Body height 2023-02-16 21:12:00 147.3 cm [facility] Body weight 2023-02-16 21:12:00 132.224 kg Univ [facility] BMI 2023-02-16 21:12:00 60.92 kg/m2 [facility] Oxygen saturation in Arterial blood by Pulse oximetry 2023-02-16 21:12:00 98 /min [facility] Heart rate 2021-07-27 21:30:00 62 /min Unive [facility] Respiratory rate 2021-07-27 21:30:00 22 /min [facility] Oxygen saturation in Arterial blood by Pulse oximetry 2021-07-27 21:30:00 95 /min [facility] Systolic blood pressure 2021-07-27 21:25:00 137 mm[Hg] [facility] Diastolic blood pressure 2021-07-27 21:25:00 77 mm[Hg] [facility] Body temperature 2021-07-27 18:35:24 36.78 Cele [facility] Body height 2021-07-27 18:02:00 147.3 cm [facility] Body weight 2021-07-27 18:02:00 124.739 kg [facility] BMI 2021-07-27 18:02:00 57.48 kg/m2 [facility] Systolic blood pressure 2021-06-25 05:00:00 134 mm[Hg] [facility] Diastolic blood pressure 2021-06-25 05:00:00 60 mm[Hg] [facility] Heart rate 2021-06-25 05:00:00 78 /min Unive [facility] Respiratory rate 2021-06-25 05:00:00 27 /min [facility] Oxygen saturation in Arterial blood by Pulse oximetry 2021-06-25 05:00:00 97 /min [facility] Body temperature 2021-06-25 04:16:00 36.94 Cele [facility] Body height 2021-06-25 04:16:[address] [facility] Body weight 2021-06-25 04:16:[address] [facility] BMI 2021-06-25 04:16:00 58.52 kg/m2 [facility] Systolic blood pressure 2021-02-17 19:29:00 124 mm[Hg] [facility] Diastolic blood pressure 2021-02-17 19:29:00 88 mm[Hg] [facility] Heart rate 2021-02-17 19:29:00 89 /min Unive [facility] Respiratory rate 2021-02-17 19:29:00 18 /min [facility] Body weight 2021-02-17 19:29:[address] [facility] BMI 2021-02-17 19:29:00 56.23 kg/m2 [facility] Systolic blood pressure 2021-01-05 19:16:00 132 mm[Hg] [facility] Diastolic blood pressure 2021-01-05 19:16:00 88 mm[Hg] [facility] Heart rate 2021-01-05 19:16:00 89 /min [facility] Body temperature 2021-01-05 19:16:00 37.28 Cele [facility] Respiratory rate 2021-01-05 19:16:00 18 /min [facility] Body height 2021-01-05 19:16:[address] [facility] Body weight 2021-01-05 19:16:[address] [facility] BMI 2021-01-05 19:16:00 55.89 kg/m2 [facility] Systolic blood pressure 2020-12-07 19:42:00 124 mm[Hg] [facility] Diastolic blood pressure 2020-12-07 19:42:00 86 mm[Hg] [facility] Heart rate 2020-12-07 19:42:00 89 /min Unive [facility] Respiratory rate 2020-12-07 19:42:00 19 /min [facility] Body height 2020-12-07 19:42:[address] [facility] Body weight 2020-12-07 19:42:[address] [facility] BMI 2020-12-07 19:42:00 54.92 kg/m2 [facility] BP Systolic 2023-12-27 08:23:00 115 mm[Hg] Step hen Alex Delaney BP Diastolic 2023-12-27 08:23:00 58 mm[Hg] Oscar phen F Rhett Weight Measured 2023-12-27 08:23:00 264.60 pounds Georgi Alex Delaney Height Measured 2023-12-27 08:23:00 60.16 inches Georgi Alex [facility] Body Temperature 2023-12-27 08:23:00 98.20 degrees Georgi F Rhett Heart Rate 2023-12-27 08:23:00 64.00 /min Jane en F [place] Respiratory Rate 2023-12-27 08:23:00 Georgi Alex Rhett Systolic blood pressure 2023-12-26 14:03:00 134 mm[Hg] [facility] Diastolic blood pressure 2023-12-26 14:03:00 74 mm[Hg] [facility] Heart rate 2023-12-26 14:03:00 76 /min [facility] Body temperature 2023-12-26 14:03:00 36.33 Cele [facility] Respiratory rate 2023-12-26 14:03:00 18 /min [facility] Body weight 2023-12-26 14:03:00 119.75 kg Univ [facility] BMI 2023-12-26 14:03:00 53.32 kg/m2 [facility] Body height 2023-12-25 14:23:00 149.9 cm Univ [facility] Oxygen saturation in Arterial blood by Pulse oximetry 2023-12-25 14:23:00 98 /min [facility] Systolic blood pressure 2023-12-19 14:08:00 112 mm[Hg] [facility] Diastolic blood pressure 2023-12-19 14:08:00 79 mm[Hg] [facility] Heart rate 2023-12-19 14:08:00 77 /min Unive [facility] Respiratory rate 2023-12-19 14:08:00 20 /min [facility] Body height 2023-12-19 14:08:00 149.9 cm [facility] Body weight 2023-12-19 14:08:00 116.892 kg Univ [facility] BMI 2023-12-19 14:08:00 52.05 kg/m2 [facility] Systolic blood pressure 2023-12-05 13:43:00 112 mm[Hg] [facility] Diastolic blood pressure 2023-12-05 13:43:00 80 mm[Hg] [facility] Heart rate 2023-12-05 13:43:00 73 /min [facility] Respiratory rate 2023-12-05 13:43:00 20 /min [facility] Body height 2023-12-05 13:43:00 149.9 cm [facility] Body weight 2023-12-05 13:43:00 117.572 kg Univ [facility] BMI 2023-12-05 13:43:00 52.35 kg/m2 Univ [facility] Body temperature 2023-11-29 04:39:00 37.28 Cele [facility] Oxygen saturation in Arterial blood by Pulse oximetry 2023-11-29 04:39:00 100 /min [facility] BP Systolic 2023-11-06 10:25:00 131 mm[Hg] [...] Systolic blood pressure 2023-11-01 13:26:00 126 mm[Hg] [facility] Diastolic blood pressure 2023-11-01 13:26:00 84 mm[Hg] [facility] Heart rate 2023-11-01 13:26:00 74 /min Unive [facility] Respiratory rate 2023-11-01 13:26:00 18 /min [facility] Body height 2023-11-01 13:26:[address] [facility] Body weight 2023-11-01 13:26:[address] [facility] BMI 2023-11-01 13:26:00 55.22 kg/m2 [facility] Oxygen saturation in Arterial blood by Pulse oximetry 2023-11-01 13:26:00 98 /min [facility] Systolic blood pressure 2023-10-31 13:11:00 115 mm[Hg] [facility] Diastolic blood pressure 2023-10-31 13:11:00 78 mm[Hg] [facility] Heart rate 2023-10-31 13:11:00 86 /min [facility] Respiratory rate 2023-10-31 13:11:00 18 /min [facility] Body height 2023-10-31 13:11:[address] [facility] Body weight 2023-10-31 13:11:[address] [facility] BMI 2023-10-31 13:11:00 54.97 kg/m2 [facility] BP Systolic 2023-10-25 17:28:00 Lennox Delaney BP Diastolic 2023-10-25 17:28:00 Oscar Delaney Weight Measured 2023-10-25 17:28:00 262.20 pounds Georgi Delaney Height Measured 2023-10-25 17:28:00 Georgi Delaney Body Temperature 2023-10-25 17:28:00 Georgi Delaney Heart Rate 2023-10-25 17:28:00 Jane Delaney Respiratory Rate 2023-10-25 17:28:00 Georgi Delaney Systolic blood pressure 2023-10-17 07:43:00 96 mm[Hg] [facility] Diastolic blood pressure 2023-10-17 07:43:00 53 mm[Hg] [facility] Heart rate 2023-10-17 07:43:00 66 /min [facility] Body temperature 2023-10-17 07:43:00 36.5 Cele [facility] Oxygen saturation in Arterial blood by Pulse oximetry 2023-10-17 07:43:00 97 /min [facility] Respiratory rate 2023-10-17 05:50:00 16 /min [facility] Body height 2023-10-17 05:50:[address] [facility] Body weight 2023-10-17 05:50:[address] [facility] BMI 2023-10-17 05:50:00 55.59 kg/m2 [facility] Systolic blood pressure 2023-10-15 14:41:00 136 mm[Hg] [facility] Diastolic blood pressure 2023-10-15 14:41:00 90 mm[Hg] [facility] Heart rate 2023-10-15 14:41:00 89 /min Unive [facility] Respiratory rate 2023-10-15 14:41:00 18 /min [facility] Body height 2023-10-15 14:41:[address] [facility] Body weight 2023-10-15 14:41:[address] [facility] BMI 2023-10-15 14:41:00 54.86 kg/m2 [facility] BP Systolic 2023-10-01 17:15:00 119 mm[Hg] Step hen F Rhett BP Diastolic 2023-10-01 17:15:00 87 mm[Hg] Oscar phen F Rhett Weight Measured 2023-10-01 17:15:00 265.40 pounds Georgi Delaney Height Measured 2023-10-01 17:15:00 60.16 inches Georgi Delaney Body Temperature 2023-10-01 17:15:00 98.20 degrees Georgi Delaney Heart Rate 2023-10-01 17:15:00 71.00 /min Jane en F Rhett Respiratory Rate 2023-10-01 17:15:00 17.00 /min Georgimariama Delaney Systolic blood pressure 2023-09-18 20:56:00 110 mm[Hg] [facility] Diastolic blood pressure 2023-09-18 20:56:00 76 mm[Hg] [facility] Heart rate 2023-09-18 20:56:00 76 /min [facility] Body height 2023-09-18 20:56:[address] [facility] Body weight 2023-09-18 20:56:[address] [facility] BMI 2023-09-18 20:56:00 56.16 kg/m2 [facility] Oxygen saturation in Arterial blood by Pulse oximetry 2023-09-18 20:56:00 97 /min [facility] BP Systolic 2023-09-17 16:16:00 119 mm[Hg] Step hen F Rhett BP Diastolic 2023-09-17 16:16:00 86 mm[Hg] Oscar phen F Rhett Weight Measured 2023-09-17 16:16:00 264.00 pounds Georgi Delaney Height Measured 2023-09-17 16:16:00 60.16 inches Georgi Delaney Body Temperature 2023-09-17 16:16:00 98.00 degrees Georgimariama Delaney Heart Rate 2023-09-17 16:16:00 85.00 /min Jane en F Rhett Respiratory Rate 2023-09-17 16:16:00 18.00 /min Georgi Delaney Systolic blood pressure 2023-09-17 14:29:00 105 mm[Hg] [facility] Diastolic blood pressure 2023-09-17 14:29:00 74 mm[Hg] [facility] Heart rate 2023-09-17 14:29:00 81 /min Unive [facility] Respiratory rate 2023-09-17 14:27:00 18 /min [facility] Body height 2023-09-17 14:27:[address] [facility] Body weight 2023-09-17 14:27:[address] [facility] BMI 2023-09-17 14:27:00 55.11 kg/m2 [facility] BP Systolic 2023-09-03 17:04:00 133 mm[Hg] Lennox Delaney BP Diastolic 2023-09-03 17:04:00 86 mm[Hg] Oscar Delaney Weight Measured 2023-09-03 17:04:00 275.40 pounds Georgi Delaney Height Measured 2023-09-03 17:04:00 60.16 inches Georgi Delaney Body Temperature 2023-09-03 17:04:00 98.00 degrees Georgi Delaney Heart Rate 2023-09-03 17:04:00 97.00 /min Jane Delaney Respiratory Rate 2023-09-03 17:04:00 19.00 /min Georgi Delaney Systolic blood pressure 2023-08-28 17:17:00 132 mm[Hg] [facility] Diastolic blood pressure 2023-08-28 17:17:00 89 mm[Hg] [facility] Heart rate 2023-08-28 17:17:00 71 /min [facility] Oxygen saturation in Arterial blood by Pulse oximetry 2023-08-28 17:17:00 100 /min [facility] Body temperature 2023-08-28 17:16:00 36.28 Cele [facility] Respiratory rate 2023-08-28 17:16:00 18 /min [facility] Body height 2023-08-28 17:16:[address] [facility] Body weight 2023-08-28 17:16:[address] [facility] BMI 2023-08-28 17:16:00 56.79 kg/m2 [facility] Systolic blood pressure 2023-07-23 14:45:00 116 mm[Hg] [facility] Diastolic blood pressure 2023-07-23 14:45:00 81 mm[Hg] [facility] Heart rate 2023-07-23 14:45:00 80 /min Unive [facility] Respiratory rate 2023-07-23 14:45:00 18 /min [facility] Body height 2023-07-23 14:45:[address] [facility] Body weight 2023-07-23 14:45:[address] [facility] BMI 2023-07-23 14:45:00 57.92 kg/m2 [facility] Systolic blood pressure 2023-07-18 14:01:00 105 mm[Hg] [facility] Diastolic blood pressure 2023-07-18 14:01:00 61 mm[Hg] [facility] Heart rate 2023-07-18 14:01:00 80 /min [facility] Respiratory rate 2023-07-18 14:01:00 18 /min [facility] Body height 2023-07-18 14:01:[address] [facility] Body weight 2023-07-18 14:01:[address] [facility] BMI 2023-07-18 14:01:00 57.93 kg/m2 [facility] BP Systolic 2023-07-16 17:51:00 124 mm[Hg] Step hen Alex Rhett BP Diastolic 2023-07-16 17:51:00 81 mm[Hg] Oscar phen Alex Delaney Weight Measured 2023-07-16 17:51:00 278.00 pounds Georgi Alex Delaney Height Measured 2023-07-16 17:51:00 60.16 inches Georgi Alex Delaney Body Temperature 2023-07-16 17:51:00 98.40 degrees Georgi Alex [place] Heart Rate 2023-07-16 17:51:00 67.00 /min Jane Johnson [facility] Respiratory Rate 2023-07-16 17:51:00 17.00 /min Georgi Johnson [facility]tt Systolic blood pressure 2023-07-04 14:56:00 132 mm[Hg] [facility] Diastolic blood pressure 2023-07-04 14:56:00 90 mm[Hg] [facility] Heart rate 2023-07-04 14:56:00 90 /min [facility] Respiratory rate 2023-07-04 14:56:00 18 /min [facility] Body height 2023-07-04 14:56:[address] [facility] Body weight 2023-07-04 14:56:[address] [facility] BMI 2023-07-04 14:56:00 57.27 kg/m2 [facility] Systolic blood pressure 2023-06-20 14:47:00 109 mm[Hg] [facility] Diastolic blood pressure 2023-06-20 14:47:00 57 mm[Hg] [facility] Heart rate 2023-06-20 14:47:00 81 /min [facility] Respiratory rate 2023-06-20 14:47:00 18 /min [facility] Body height 2023-06-20 14:47:[address] [facility] Body weight 2023-06-20 14:47:[address] [facility] BMI 2023-06-20 14:47:00 57.89 kg/m2 [facility] BP Systolic 2023-06-18 17:47:00 135 mm[Hg] Lennox Delaney BP Diastolic 2023-06-18 17:47:00 87 mm[Hg] Oscar Delaney Weight Measured 2023-06-18 17:47:00 279.40 pounds Georgi Delaney Height Measured 2023-06-18 17:47:00 60.16 inches Georgi Delaney Body Temperature 2023-06-18 17:47:00 98.30 degrees Georgi Delaney Heart Rate 2023-06-18 17:47:00 98.00 /min Jane en F Rhett Respiratory Rate 2023-06-18 17:47:00 19.00 /min Georgi F Rhett Systolic blood pressure 2023-06-06 13:38:00 130 mm[Hg] [facility] Diastolic blood pressure 2023-06-06 13:38:00 87 mm[Hg] [facility] Heart rate 2023-06-06 13:38:00 83 /min [facility] Respiratory rate 2023-06-06 13:38:00 18 /min [facility] Body height 2023-06-06 13:38:[address] [facility] Body weight 2023-06-06 13:38:[address] [facility] BMI 2023-06-06 13:38:00 58.06 kg/m2 [facility] BP Systolic 2023-05-30 17:42:00 130 mm[Hg] Step [...] by Pulse oximetry 2023-05-24 13:14:00 99 /min [facility] BP Systolic 2023-05-15 17:46:00 122 mm[Hg] Step hen F Rhett BP Diastolic 2023-05-15 17:46:00 77 mm[Hg] Oscar phen F Rhett Weight Measured 2023-05-15 17:46:00 278.20 pounds Georgi F Rhett Height Measured 2023-05-15 17:46:00 60.16 inches Georgi F Rhett Body Temperature 2023-05-15 17:46:00 98.30 degrees Georgi F Rhett Heart Rate 2023-05-15 17:46:00 83.00 /min Jane en F Rhett Respiratory Rate 2023-05-15 17:46:00 17.00 /min Georgi F Rhett Systolic blood pressure 2023-05-09 13:20:00 128 mm[Hg] [facility] Diastolic blood pressure 2023-05-09 13:20:00 85 mm[Hg] [facility] Heart rate 2023-05-09 13:20:00 74 /min [facility] Respiratory rate 2023-05-09 13:20:00 18 /min [facility] Body height 2023-05-09 13:20:[address] [facility] Body weight 2023-05-09 13:20:[address] [facility] BMI 2023-05-09 13:20:00 59.44 kg/m2 [facility] BP Systolic 2023-05-08 11:24:00 116 mm[Hg] Step mariama Delaney BP Diastolic 2023-05-08 11:24:00 81 mm[Hg] Oscar Delaney Weight Measured 2023-05-08 11:24:00 275.00 pounds Georgi Delaney Height Measured 2023-05-08 11:24:00 60.16 inches Georgi Delaney Body Temperature 2023-05-08 11:24:00 97.60 degrees Georgi Delaney Heart Rate 2023-05-08 11:24:00 76.00 /min Jane en F Rhett Respiratory Rate 2023-05-08 11:24:00 20.00 /min Georgimariama Delaney Systolic blood pressure 2023-04-25 13:25:00 113 mm[Hg] [facility] Diastolic blood pressure 2023-04-25 13:25:00 85 mm[Hg] [facility]des [facility] Heart rate 2023-04-25 13:25:00 71 /min Unive [facility] Respiratory rate 2023-04-25 13:25:00 18 /min [facility] Body height 2023-04-25 13:25:[address] [facility] Body weight 2023-04-25 13:25:[address] [facility] BMI 2023-04-25 13:25:00 60.33 kg/m2 [facility] Body temperature 2023-04-21 04:53:00 36.61 Cele [facility] Oxygen saturation in Arterial blood by Pulse oximetry 2023-04-21 04:53:00 99 /min [facility] Systolic blood pressure 2023-04-04 14:18:00 116 mm[Hg] [facility] Diastolic blood pressure 2023-04-04 14:18:00 73 mm[Hg] [facility] Heart rate 2023-04-04 14:18:00 71 /min [facility] Respiratory rate 2023-04-04 14:09:00 18 /min [facility] Body height 2023-04-04 14:09:[address] [facility] Body weight 2023-04-04 14:09:[address] [facility] BMI 2023-04-04 14:09:00 58.54 kg/m2 [facility] Systolic blood pressure 2023-03-21 14:39:00 123 mm[Hg] [facility] Diastolic blood pressure 2023-03-21 14:39:00 81 mm[Hg] [facility] Heart rate 2023-03-21 14:39:00 76 /min [facility] Respiratory rate 2023-03-21 14:39:00 18 /min [facility] Body height 2023-03-21 14:39:[address] [facility] Body weight 2023-03-21 14:39:[address] [facility] BMI 2023-03-21 14:39:00 58.93 kg/m2 [facility] Oxygen saturation in Arterial blood by Pulse oximetry 2023-03-19 19:10:00 98 /min [facility] Systolic blood pressure 2023-02-22 13:31:00 125 mm[Hg] [facility] Diastolic blood pressure 2023-02-22 13:31:00 82 mm[Hg] [facility] Heart rate 2023-02-22 13:31:00 79 /min [facility] Res[facility] rate 2023-02-22 13:31:00 18 /min [facility] Body height 2023-02-22 13:31:[address] [facility] Body weight 2023-02-22 13:31:[address] [facility] BMI 2023-02-22 13:31:00 60.91 kg/m2 [facility] Oxygen saturation in Arterial blood by Pulse oximetry 2023-02-16 21:12:00 98 /min [facility] BP Systolic 2022-08-30 11:27:00 120 mm[Hg] [...] /min Body temperature 2021-07-27 18:35:24 36.78 Cele [facility] Procedures Procedure Date / Time Performed Performing Clinician Source REFERRAL- REQUEST/RESPONSE 2023-11-07 16:25:56 Doctor Unassigned, [place] [facility] REFERRAL- REQUEST/RESPONSE 2023-11-07 16:25:56 Doctor Unassigned, [place] [facility] XR SPINE THORACIC 2 VW 2023-10-25 20:12:25 Requisition , Paper [facility] XR SPINE THORACIC 2 VW 2023-10-25 20:12:25 Requisition , Paper [facility] XR LUMBAR SPINE 4 VW 2023-10-25 20:11:02 Requisition, Paper [facility] XR LUMBAR SPINE 4 VW 2023-10-25 20:11:02 Requisition, Paper [facility] POCT TEST 2023-10-17 06:14:00 Bonnie Rocha [facility] POCT TEST 2023-10-17 06:14:00 Bonnie Rocha [facility] NOTICE OF PRIVACY PRACTICES 2023-10-17 05:41:39 Doctor Unassigned, [place] [facility] NOTICE OF PRIVACY PRACTICES 2023-10-17 05:41:39 Doctor Unassigned, [place] [facility] CONSENT/REFUSAL FOR DIAGNOSIS AND TREATMENT 2023-10-17 05:40:01 Doctor Unassigned, [place] [facility] CONSENT/REFUSAL FOR DIAGNOSIS AND TREATMENT 2023-10-17 05:40:01 Doctor Unassigned, [place] [facility] EMERGENCY SERVICES AGREEMENTS AND AUTHORIZATIONS 2023-10-16 06:01:00 Doctor Unassigned, [place] [facility] SLEEP STUDY DATA REPORT 2023-09-06 06:01:00 Doct or Unassigned, [place] [facility] SLEEP STUDY DATA REPORT 2023-09-06 06:01:00 Doct or Unassigned, [place] [facility] SLEEP LAB RESULTS 2023-09-06 06:01:00 Elly Blackburn [facility] CONSENT TO TREATMENT WITH PSYCHOACTIVE MEDICATION 2023-07-23 06:01:00 Doctor Unassigned, [place] [facility] CONSENT TO TREATMENT WITH PSYCHOACTIVE MEDICATION 2023-07-23 06:01:00 Doctor Unassigned, [place] [facility] [address] Ultrasound, Soft Tissues Of Head And Neck (eg, Thyroid, Parathyroid, Parotid), Real Time With Image Documentation 2023-05-03 00:00:00 Georgi Delaney ASSIGNMENT OF BENEFITS 2023-04-21 01:50:01 Docto r Unassigned, [place] [facility] ASSIGNMENT OF BENEFITS 2023-04-21 01:50:01 Docto r Unassigned, [place] [facility] CONSENT/REFUSAL FOR DIAGNOSIS AND TREATMENT 2023-04-21 00:06:49 Doctor Unassigned, [place] [facility] CONSENT/REFUSAL FOR DIAGNOSIS AND TREATMENT 2023-04-21 00:06:49 Doctor Unassigned, [place] [facility] EMERGENCY SERVICES AGREEMENTS AND AUTHORIZATIONS 2023-04-20 05:01:00 Doctor Unassigned, [place] [facility] BI ULTRASOUND BREAST LIMITED BILATERAL 2023-04-13 15:56:28 Requisition, Paper [facility] BI ULTRASOUND BREAST LIMITED BILATERAL 2023-04-13 15:56:28 Requisition, Paper [facility] BI DIAGNOSTIC TOMOSYNTHESIS BILATERAL 2023-04-13 15:07:30 Requisition, Paper [facility] BI DIAGNOSTIC TOMOSYNTHESIS BILATERAL 2023-04-13 15:07:30 Requisition, Paper [facility] US UPPER ARM LEFT 2023-04-13 14:19:39 Requisition, Pap er [facility] US UPPER ARM LEFT 2023-04-13 14:19:39 Requisition, Pap er [facility] EXTERNAL PROVIDER RECORDS 2023-03-21 05:01:00 Do ctor Unassigned, [place] [facility] EXTERNAL PROVIDER RECORDS 2023-03-21 05:01:00 Do ctor Unassigned, [place] [facility] CT HEAD WO CONTRAST 2023-02-26 19:38:43 Afai Beaulieu [facility] CT HEAD WO CONTRAST 2023-02-26 19:38:43 Afia Beaulieu [facility] ASSIGNMENT OF BENEFITS 2023-02-26 19:05:35 Docto r Unassigned, [place] [facility] CONSENT/REFUSAL FOR DIAGNOSIS AND TREATMENT 2023-02-26 19:04:46 Doctor Unassigned, [place] [facility] CONSENT/REFUSAL FOR DIAGNOSIS AND TREATMENT 2023-02-26 19:04:46 Doctor Unassigned, [place] [facility] PATIENT QUESTIONNAIRE 2023-02-26 05:01:00 Doctor Unassigned, [place] [facility] PSYCHIATRY [facility]INIC PATIENT INFORMATION 2023-02-22 05:01:00 Doctor Unassigned, [place] [facility] PATIENT FINANCIAL POLICY 2023-02-16 21:04:53 Doctor Unassigned, [place] [facility] ASSIGNMENT OF BENEFITS 2023-02-16 21:04:02 Docto r Unassigned, [place] [facility] CONSENT/REFUSAL FOR DIAGNOSIS AND TREATMENT 2023-02-16 21:03:03 Doctor Unassigned, [place] [facility] CONSENT/REFUSAL FOR DIAGNOSIS AND TREATMENT 2023-02-16 21:03:03 Doctor Unassigned, [place] [facility] REFERRAL- REQUEST/RESPONSE 2023-01-23 05:01:00 Doctor Unassigned, [place] [facility] REFERRAL- REQUEST/RESPONSE 2023-01-23 05:01:00 Doctor Unassigned, [place] [facility] REFERRAL- REQUEST/RESPONSE 2023-01-03 05:01:00 Doctor Unassigned, [place] [facility] REFERRAL- REQUEST/RESPONSE 2023-01-03 05:01:00 Doctor Unassigned, [place] [facility] TROPONIN I 2021-07-27 20:28:00 Yamil Messina [facility] D-DIMER 2021-07-27 20:27:00 Yamil Messina [facility] XR CHEST 1 VW 2021-07-27 19:38:35 Yamil Messina [facility] POCT TEST 2021-07-27 18:28:00 Yamil Messina [facility] URINALYSIS 2021-07-27 18:26:00 Yamil Messina [facility] MAGNESIUM 2021-07-27 18:06:00 Yamil Messina [facility] TROPONIN I 2021-07-27 18:06:00 Yamil Messina [facility] COMP. METABOLIC PANEL (20698) 2021-07-27 18:06:00 Yamil Messina [facility] CBC WITH DIFF 2021-07-27 18:06:00 Yamil Messina [facility] CT HEAD WO CONTRAST 2021-06-25 05:12:41 Yoon Page [facility] NOTICE OF PRIVACY PRACTICES 2021-06-25 04:02:52 Doctor Unassigned, [place] [facility] CONSENT/REFUSAL FOR DIAGNOSIS AND TREATMENT 2021-06-25 04:01:22 Doctor Unassigned, [place] [facility] DISCLOSURE AND CONSENT, MEDICAL AND SURGICAL PROCEDURES 2021-01-06 05:01:00 Doctor Unassigned, [place] [facility] POCT TEST 2021-01-05 19:26:00 Magy Villanueva [facility] POCT TEST 2020-12-07 20:47:00 Fern Moctezuma [facility] ASSIGNMENT OF BENEFITS 2020-12-07 19:26:29 Artisto r Unassigned, [place] [facility] Plan of Care Planned Activity Planned Date Details Comments Source Goal Plan of Care Note [code = 53034-6] Goal Plan of Care Note [code = 76330-2] Goal Plan of Care Note [code = 63471-1] Goal Plan of Care Note [code = 77992-4] Goal Plan of Care Note [code = 72909-4] Goal Plan of Care Note [code = 55471-3] Goal Plan of Care Note [code = 44815-7] Goal Plan of Care Note [code = 59180-1] Goal Plan of Care Note [code = 03713-9] Goal Plan of Care Note [code = 34830-2] Goal Plan of Care Note [code = 99939-5] Goal Plan of Care Note [code = 33023-8] Goal Plan of Care Note [code = 47373-0] Goal Plan of Care Note [code = 11032-0] Goal Plan of Care Note [code = 19730-0] Goal Plan of Care Note [code = 18513-8] Goal Plan of Care Note [code = 23113-4] Goal Plan of Care Note [code = 00663-9] Goal Plan of Care Note [code = 49121-7] Goal Plan of Care Note [code = 46323-4] Goal Plan of Care Note [code = 47215-4] Goal Plan of Care Note [code = 68041-4] Goal Plan of Care Note [code = 20414-9] Goal Plan of Care Note [code = 74195-0] Goal Plan of Care Note [code = 00747-7] Goal Plan of Care Note [code = 26987-0] Goal Plan of Care Note [code = 31158-8] Goal Plan of Care Note [code = 60186-8] Goal Plan of Care Note [code = 02468-1] Goal Plan of Care Note [code = 45788-3] Goal Plan of Care Note [code = 84306-5] Goal Plan of Care Note [code = 19533-0] Goal Plan of Care Note [code = 97812-2] Goal Plan of Care Note [code = 74199-7] Goal Plan of Care Note [code = 79562-0] Goal Plan of Care Note [code = 96536-2] Goal Plan of Care Note [code = 20263-7] Goal Plan of Care Note [code = 76754-5] Goal Plan of Care Note [code = 20215-7] Goal Plan of Care Note [code = 43641-7] Goal Plan of Care Note [code = 57410-5] Goal Plan of Care Note [code = 08565-1] Goal Plan of Care Note [code = 81615-7] Goal Plan of Care Note [code = 30117-3] Goal Plan of Care Note [code = 41351-4] Goal Plan of Care Note [code = 72940-9] Goal Plan of Care Note [code = 02495-7] Goal Plan of Care Note [code = 02111-5] Goal Plan of Care Note [code = 00055-7] Goal Plan of Care Note [code = 12084-8] Goal Plan of Care Note [code = 66369-3] Goal Plan of Care Note [code = 91885-8] Goal Plan of Care Note [code = 83942-7] Goal Plan of Care Note [code = 03382-5] Goal Plan of Care Note [code = 03941-8] Goal Plan of Care Note [code = 69505-4] Goal Plan of Care Note [code = 62648-1] Goal Plan of Care Note [code = 94414-6] Goal Plan of Care Note [code = 39726-0] Goal Plan of Care Note [code = 83901-6] Goal Plan of Care Note [code = 55061-4] Goal Plan of Care Note [code = 09190-3] Goal Plan of Care Note [code = 13053-7] Goal Plan of Care Note [code = 44727-8] Goal Plan of Care Note [code = 32864-3] Goal Plan of Care Note [code = 65921-5] Goal Plan of Care Note [code = 32437-9] Goal Plan of Care Note [code = 20810-6] Goal Plan of Care Note [code = 69264-0] Goal Plan of Care Note [code = 88300-0] Goal Plan of Care Note [code = 43031-9] Goal Plan of Care Note [code = 46971-0] Goal Plan of Care Note [code = 13469-1] Goal Plan of Care Note [code = 60015-1] Goal Plan of Care Note [code = 16771-1] Goal Plan of Care Note [code = 75748-1] Goal Plan of Care Note [code = 16345-2] Goal Plan of Care Note [code = 01771-3] Goal Plan of Care Note [code = 63390-4] Goal Plan of Care Note [code = 91752-4] Goal Plan of Care Note [code = 44462-4] Goal Plan of Care Note [code = 52697-8] Goal Plan of Care Note [code = 57185-0] Goal Plan of Care Note [code = 15037-8] Goal Plan of Care Note [code = 09893-4] Goal Plan of Care Note [code = 03971-8] Goal Plan of Care Note [code = 27637-9] Goal Plan of Care Note [code = 29906-8] Goal Plan of Care Note [code = 63977-9] Goal Plan of Care Note [code = 80926-9] Goal Plan of Care Note [code = 20514-5] Goal Plan of Care Note [code = 26061-8] Goal Plan of Care Note [code = 50610-9] Goal Plan of Care Note [code = 82341-5] Goal Plan of Care Note [code = 91319-0] Goal Plan of Care Note [code = 50055-5] Goal Plan of Care Note [code = 47572-9] Goal Plan of Care Note [code = 01786-6] Goal Plan of Care Note [code = 48705-0] Goal Plan of Care Note [code = 06983-7] Goal Plan of Care Note [code = 00293-1] Goal Plan of Care Note [code = 63371-9] Goal Plan of Care Note [code = 69325-5] Goal Plan of Care Note [code = 50641-8] Goal Plan of Care Note [code = 38410-2] Goal Plan of Care Note [code = 92851-6] Goal Plan of Care Note [code = 43841-7] Goal Plan of Care Note [code = 89204-0] Goal Plan of Care Note [code = 38359-0] Goal Plan of Care Note [code = 57188-2] Goal Plan of Care Note [code = 17679-8] Goal Plan of Care Note [code = 40626-8] Goal Plan of Care Note [code = 72778-0] Goal Plan of Care Note [code = 75855-7] Goal Plan of Care Note [code = 80595-8] Goal Plan of Care Note [code = 50466-5] Goal Plan of Care Note [code = 73155-6] Goal Plan of Care Note [code = 38840-2] Goal Plan of Care Note [code = 76693-2] Goal Plan of Care Note [code = 42230-8] Goal Plan of Care Note [code = 79786-0] Goal Plan of Care Note [code = 52629-8] Goal Plan of Care Note [code = 44236-7] Goal Plan of Care Note [code = 12572-1] Goal Plan of Care Note [code = 64216-8] Goal Plan of Care Note [code = 54029-8] Goal Plan of Care Note [code = 58608-4] Goal Plan of Care Note [code = 30107-7] Goal Plan of Care Note [code = 65523-8] Goal Plan of Care Note [code = 27155-2] Goal Plan of Care Note [code = 20183-8] Goal Plan of Care Note [code = 70633-9] Goal Plan of Care Note [code = 56352-1] Goal Plan of Care Note [code = 93364-0] Goal Plan of Care Note [code = 70840-6] Goal Plan of Care Note [code = 67895-8] Goal Plan of Care Note [code = 48738-6] Goal Plan of Care Note [code = 14981-3] Goal Plan of Care Note [code = 37358-1] Goal Plan of Care Note [code = 87217-8] Goal Plan of Care Note [code = 34625-1] Goal Plan of Care Note [code = 14002-3] Goal Plan of Care Note [code = 28701-6] Goal Plan of Care Note [code = 54483-2] Goal Plan of Care Note [code = 21634-4] Goal Plan of Care Note [code = 28107-5] Goal Plan of Care Note [code = 01505-5] Goal Plan of Care Note [code = 64828-2] Goal Plan of Care Note [code = 80216-8] Goal Plan of Care Note [code = 12812-5] Goal Plan of Care Note [code = 50297-9] Goal Plan of Care Note [code = 29390-1] Goal Plan of Care Note [code = 74764-2] Goal Plan of Care Note [code = 75007-9] Goal Plan of Care Note [code = 20561-9] Goal Plan of Care Note [code = 24616-0] Goal Plan of Care Note [code = 05350-8] Encounters Start Date/Time End Date/Time Encounter Type Admission Type Attending [facility] Care Department Encounter ID Source 2025-02-19 13:30:00 2025-02-19 13:30:00 Outpatient JUAN CASTELLANOS [id number] [facility] 2025-02-02 14:20:00 2025-02-02 14:20:00 Outpatient SABRINA WINTER [id number] [facility] 2025-01-21 13:00:00 2025-01-21 13:00:00 Outpatient FAUSTINO CORTEZ [id number] [facility] 2024-12-12 16:45:00 2024-12-12 16:45:00 Outpatient ROLANDA OSMAN [id number] [facility] 2024-12-10 10:00:00 2024-12-10 10:00:00 Outpatient MALCOLM GILL [id number] [facility] 2024-12-10 10:00:00 2024-12-10 10:00:00 Outpatient ROMAIN GENAO [id number] [facility] 2024-11-19 15:30:00 2024-11-19 15:30:00 Outpatient JUAN CASTELLANOS [id number] [facility] 2024-11-17 15:00:00 2024-11-17 15:00:00 Outpatient ROMAIN GENAO ROLANDA OSMAN [id number] [facility] 2024-11-17 00:00:00 2024-11-17 00:00:00 Outpatient HUNDBan, JUAN OSMAN [id number] [facility] 2024-11-16 00:00:00 2024-11-16 00:00:00 Outpatient HUNDL, JUAN OSMAN [id number] [facility] 2024-11-11 13:30:00 2024-11-11 13:30:00 Outpatient HUNDL, JUAN OSMAN [id number] [facility] 2024-11-11 10:30:00 2024-11-11 10:30:00 Outpatient LAB90 ROLANDA OSMAN [id number] [facility] 2024-11-10 00:00:00 2024-11-10 00:00:00 Outpatient MEDINA, NABEEL ROLANDA OSMAN [id number] [facility] 2024-11-06 14:00:00 2024-11-06 14:00:00 Outpatient JUSTIN LOVING [id number] [facility] 2024-10-30 00:00:00 2024-10-30 00:00:00 Outpatient MIKE CAMPOS [id number] [facility] 2024-10-29 11:00:00 2024-10-29 11:00:00 Outpatient HUNDL, JUAN OSMAN [id number] [facility] 2024-10-29 00:00:00 2024-10-29 00:00:00 Outpatient MORAMPUDIGIOVANNI [id number] [facility] 2024-10-29 00:00:00 2024-10-29 00:00:00 Outpatient MORAMPGIOVANNI LINDA [id number] [facility] 2024-10-24 00:00:00 2024-10-24 00:00:00 Outpatient JASMIN, JUAN OSMAN [id number] [facility] 2024-10-20 22:59:00 2024-10-21 02:33:00 Emergency X YOON PAGE WAKILI [facility] ERT [id number] [facility] 2024-10-20 00:00:00 2024-10-20 00:00:00 Outpatient VETO HUANG ROLANDA OSMAN [id number] [facility] 2024-10-15 08:35:00 2024-10-15 08:35:00 Outpatient LAB90 ROLANDA OSMAN [id number] [facility] 2024-10-14 13:55:00 2024-10-14 13:55:00 Outpatient LAB90 ROLANDA OSMAN [id number] [facility] 2024-10-11 00:00:00 2024-10-11 00:00:00 Outpatient ARLETTE HOLDER [id number] [facility] 2024-10-11 00:00:00 2024-10-11 00:00:00 Outpatient FLORIAN MIDDLETON [id number] [facility] 2024-10-09 00:00:00 2024-10-09 00:00:00 Outpatient NABEEL MEIDNA [id number] [facility] 2024-10-06 15:00:00 2024-10-06 15:00:00 Outpatient SABRINA WINTER [id number] [facility] 2024-10-03 10:15:00 2024-10-03 10:15:00 Outpatient NABEEL MEDINA [id number] [facility] 2023-03-19 00:00:00 2024-09-27 02:39:40 Orders Only Zhanna Kramer, [facility] [id number] 350.1.13.10 4.2.7.2.686 [id number] [facility] 2023-11-07 00:00:00 2024-09-27 02:33:35 Orders Only Doctor Unassigned, [place] Doctor Unassigned, [place] [facility] [id number] 350.1.13.10 4.2.7.2.686 [id number] [facility] 2024-09-19 11:00:00 2024-09-19 11:00:00 Outpatient NICK PURDY [facility] [id number] [facility] 2024-09-18 11:00:00 2024-09-18 11:00:00 Outpatient AFIA MELVIN [facility] [id number] [facility] 2024-09-17 00:00:00 2024-09-18 10:49:06 Telephone Nick Garcia [facility] [id number] 350.1.13.10 [id number] [id number] [facility] 2024-09-16 13:30:00 2024-09-16 13:30:00 Outpatient JUAN CASTELLANOS [id number] [facility] 2024-08-22 08:00:00 2024-08-22 08:00:00 Outpatient NABEEL MEDINA [id number] [facility] 2024-08-12 10:30:00 2024-08-12 10:30:00 Outpatient JUAN CASTELLANOS [id number] [facility] 2024-08-08 14:00:00 2024-08-08 14:00:00 Outpatient JUAN CASTELLANOS [id number] [facility] 2024-07-28 00:00:00 2024-07-28 00:00:00 Outpatient JUAN CASTELLANOS [id number] [facility] 2024-07-14 14:00:00 2024-07-14 14:00:00 Outpatient SABRINA WINTER [id number] [facility] 2024-07-14 00:00:00 2024-07-14 00:00:00 Outpatient [facility]LLANOS [id number] [facility] 2024-07-11 00:00:00 2024-07-11 00:00:00 Outpatient MD ROLANDA BEE [id number] [facility] 2024-07-10 00:00:00 2024-07-10 00:00:00 Outpatient ENDER FIGUEROA [id number] [facility] 2024-07-08 00:00:00 2024-07-08 00:00:00 Outpatient JUAN CASTELLANOS [id number] [facility] 2024-06-27 00:00:00 2024-06-27 00:00:00 Outpatient J[facility]AN [facility]STELLANOS [id number] [facility] 2024-06-26 15:00:00 2024-06-26 15:00:00 Outpatient JUAN CASTELLANOS [id number] [facility] 2024-06-25 06:49:00 2024-06-25 06:49:00 Outpatient CYNTHIA LequCesar coy [facility] [id number] [facility] 2024-06-22 10:15:00 2024-06-22 10:15:00 Outpatient RACIEL VENTURAALETHEA OSMAN [id number] [facility] 2024-06-22 00:00:00 2024-06-22 00:00:00 Outpatient KAMILAH GARCIA [id number] [facility] 2024-06-18 00:00:00 2024-06-18 00:00:00 Outpatient YISEL ASTORGA [id number] [facility] 2024-06-14 00:00:00 2024-06-14 00:00:00 Outpatient ZIYAD HOYOS [id number] [facility] 2024-06-10 14:15:00 2024-06-10 14:15:00 Outpatient YISEL ASTORGA [id number] [facility] 2024-06-10 14:05:00 2024-06-10 14:05:00 Outpatient ROLANDA OSMAN [id number] [facility] 2024-06-10 10:25:00 2024-06-10 10:25:00 Outpatient LAB90 ROLANDA OSMAN [id number] [facility] 2024-06-09 14:15:00 2024-06-09 14:15:00 Outpatient SABRINA WINTER ROLANDA OSMAN [id number] [facility] 2024-06-06 00:00:00 2024-06-06 00:00:00 Outpatient JASMIN JUAN OSMAN [id number] [facility] 2024-06-06 00:00:00 2024-06-06 00:00:00 Outpatient JASMIN JUAN OSMAN [id number] [facility] 2024-05-30 00:00:00 2024-05-30 00:00:00 Outpatient GARCIA, UMAIR ROLANDA OSMAN [id number] [facility] 2024-05-28 00:00:00 2024-05-28 00:00:00 Outpatient ROLANDA OSMAN [id number] [facility] 2024-05-27 15:45:00 2024-05-27 15:45:00 Outpatient LAB90 ROLANDA OSMAN [id number] [facility] 2024-05-27 15:00:00 2024-05-27 15:00:00 Outpatient JASMIN, JUAN ROLANDA OSMAN [id number] [facility] 2024-05-27 00:00:00 2024-05-27 00:00:00 Outpatient AGLIBERTAD CORTEZ ROLANDA OSMAN [id number] [facility] 2024-05-14 11:00:00 2024-05-14 11:00:00 Outpatient DAVIDBan JUAN OSMAN [id number] [facility] 2024-05-12 11:00:00 2024-05-12 11:00:00 Outpatient JASMIN JUAN OSMAN [id number] [facility] 2024-04-28 00:00:00 2024-04-28 00:00:00 Outpatient ROLANDA OSMAN [id number] Rolanda Seybold 2024-04-23 14:25:00 2024-04-23 14:25:00 Outpatient ROLANDA HEBERTSEY [id number] Rolanda [facility] 2024-04-23 14:20:00 2024-04-23 14:20:00 Outpatient ROLANDA ROLANDA [id number] Rolanda [facility] 2024-04-23 00:00:00 2024-04-23 00:00:00 Outpatient COSMO, GEORGI OSMAN ROLANDA [id number] Rolanda [facility] 2024-04-23 00:00:00 2024-04-23 00:00:00 Outpatient COSMO, GEORGI ROLANDA ROLANDA [id number] Rolanda [facility] 2024-04-18 00:00:00 2024-04-18 00:00:00 Outpatient HUNDL, JUAN ROLANDA OSMAN [id number] Rolanda [facility] 2024-04-17 17:20:00 2024-04-17 17:20:00 Outpatient ROLANDA ROLANDA [id number] Rolanda [facility] 2024-04-17 17:15:00 2024-04-17 17:15:00 Outpatient ROLANDA ROLANDA [id number] Rolanda [facility] 2024-04-17 14:00:00 2024-04-17 14:00:00 Outpatient COSMO, GEORGI ROLANDA OSMAN [id number] [facility] 2024-04-17 13:45:00 2024-04-17 13:45:00 Outpatient ROLANDA ROLANDA [id number] [facility] 2024-04-17 00:00:00 2024-04-17 00:00:00 Outpatient COSMO, GEORGI ROLANDA OSMAN [id number] [facility] 2024-04-17 00:00:00 2024-04-17 00:00:00 Outpatient COSMO, GEORGI ROLANDA OSMAN [id number] [facility] 2024-04-15 00:00:00 2024-04-15 00:00:00 Outpatient COSMO, GEORGI ROLANDA OSMAN [id number] [facility] 2024-03-12 00:00:00 2024-04-12 18:19:33 Patient Secure Msg Doctor Unassigned, [place] Doctor Unassigned, [place] [facility] 1.2.840.114 350.1.13.10 4.2.7.2.686 [id number] [facility] 2024-04-08 10:35:00 2024-04-08 10:35:00 Outpatient LAB90 ROLANDA OSMAN [id number] [facility] 2024-04-03 15:00:00 2024-04-03 15:00:00 Outpatient DAVIDBan JUAN OSMAN [id number] [facility] 2024-03-20 00:00:00 2024-03-20 00:00:00 Outpatient JASMIN, JUAN OSMAN [id number] [facility] 2024-03-04 14:30:00 2024-03-04 14:30:00 Outpatient HUNDBan, JUAN OSMAN [id number] [facility] 2024-02-21 00:00:00 2024-02-21 00:00:00 Outpatient HUNDL, JUAN OSMAN [id number] [facility] 2024-02-16 00:00:00 2024-02-16 00:00:00 Outpatient TAMMY MCDOWELL [id number] [facility] 2024-02-14 00:00:00 2024-02-14 00:00:00 Outpatient RIGO KATHLEEN [id number] [facility] 2024-02-11 00:00:00 2024-02-11 00:00:00 Outpatient DAVIDBan, JUAN OSMAN [id number] [facility] 2024-02-05 16:05:00 2024-02-05 16:05:00 Outpatient LAB90 ROLANDA OSMAN [id number] [facility] 2024-02-05 16:00:00 2024-02-05 16:00:00 Outpatient LAB90 ROLANDA OSMAN [id number] [facility] 2024-02-05 15:00:00 2024-02-05 15:00:00 Outpatient JUAN CASTELLANOS [id number] [facility] 2024-02-04 14:30:00 2024-02-04 14:30:00 Outpatient JUAN CASTELLANOS [id number] [facility] 2024-01-28 00:00:00 2024-01-29 09:42:23 Telephone BeaulieuAfia 1.2.840.1 05098.1.1 3.104.2.7 .3.301499 .8 [id number] [facility] 2024-01-29 00:00:00 2024-01-29 09:40:54 Letter (Out) Afia Beaulieu 1.2.840.1 24563.1.1 3.104.2.7 .3.598861 .8 [id number] [facility] 2024-01-01 00:00:00 2024-01-17 14:15:43 Patient Secure Msg Doctor Unassigned, [place] 1..840.1 73974.1.1 3.104.2.7 .3.498530 .8 [id number] [facility] 2024-01-09 14:32:27 2024-01-09 14:32:27 Outpatient SFA SFA [id number] Georgi Delaney 2024-01-08 14:19:45 2024-01-08 14:19:45 Outpatient SFA SFA [id number] Georgi Delaney 2024-01-08 00:00:00 2024-01-08 00:00:00 Outpatient Visit SFA [id number] Georgi Delaney 2024-01-04 08:04:20 2024-01-04 08:04:20 Outpatient SFA SFA [id number] Georgi Delaney 2024-01-03 18:51:13 2024-01-03 18:51:13 Outpatient SFA SFA [id number] Georgi Delaney 2023-12-31 00:00:00 2024-01-03 16:33:02 Telephone Dorothy Phillips 1..840.1 65999.1.1 3.104.2.7 .3.265753 .8 [id number] [facility] 2024-01-03 00:00:00 2024-01-03 00:00:00 Outpatient R DOROTHY PHILLIPS [facility] [id number] [facility] 2023-12-31 00:00:00 2024-01-02 12:35:07 Telephone Elly Blackburn 1.2.840.1 78798.1.1 3.104.2.7 .3.232500 .8 [id number] [facility] 2024-01-02 09:30:00 2024-01-02 10:23:19 Outpatient R SHARRI OLSON KIMBERLY [facility] [id number] [facility] 2023-12-31 00:00:00 2023-12-31 11:16:36 Telephone Navneet Dang 1.2.840.1 23904.1.1 3.104.2.7 .3.315791 .8 [id number] [facility] 2023-12-27 18:58:47 2023-12-27 18:58:47 Outpatient SFA [facility] [id number] Georgi Delaney 2023-12-27 00:00:00 2023-12-27 00:00:00 Outpatient Visit [facility] [id number] Georgi Delaney 2023-12-26 09:20:00 2023-12-26 09:52:16 Outpatient R DOROTHY PHILLIPS [facility] [id number] [facility] 2023-12-26 09:20:00 2023-12-26 09:52:16 Office Visit Dorothy Phillips 1.2.840.1 74092.1.1 3.104.2.7 .3.425134 .8 [id number] [facility] 2023-12-25 09:30:00 2023-12-25 10:04:53 Outpatient R AFIA BEAULIEU [facility] [id number] [facility] 2023-12-25 09:30:00 2023-12-25 10:04:53 Office Visit Afia Beaulieu 1.2.840.1 99140.1.1 3.104.2.7 .3.918680 .8 [id number] [facility] 2023-12-25 00:00:00 2023-12-25 00:00:00 Travel 1.2.840.1 05159.1.1 3.104.2.7 .3.776147 .8 1.2.840.114 350.1.13.10 4.2.7.3.698 084.8 [id number] [facility] 2023-12-21 15:12:41 2023-12-21 15:12:41 Outpatient SFA [facility] [id number] Georgi Delaney 2023-12-21 00:00:00 2023-12-21 00:00:00 Outpatient Visit [facility] [id number] Georgi Delaney 2023-12-19 11:33:43 2023-12-19 11:33:43 Outpatient SFA [facility] [id number] Georgi Johnson [place] 2023-12-19 09:30:00 2023-12-19 10:34:54 Outpatient R SHARRI OLSON [facility] [id number] [facility] 2023-12-19 00:00:00 2023-12-19 00:00:00 Travel 1.2.840.1 73359.1.1 3.104.2.7 .3.482229 .8 1.2.840.114 350.1.13.10 4.2.7.3.698 084.8 [id number] [facility] 2023-12-12 11:53:06 2023-12-12 11:53:06 Outpatient [facility] [id number] Georgi Delaney 2023-11-06 00:00:00 2023-12-08 18:07:25 Patient Secure Msg Doctor Unassigned, [place] 1.2.840.1 24864.1.1 3.104.2.7 .3.153054 .8 [id number] [facility] 2023-12-07 10:52:07 2023-12-07 10:52:07 Outpatient [facility] [id number] Georgi Johnson Rhett 2023-12-06 18:52:45 2023-12-06 18:52:45 Outpatient [facility] 25 Georgi Johnson [place] 2023-12-05 11:22:26 2023-12-05 11:22:26 Outpatient [facility] [id number] Georgi Johnson Rhett 2023-12-05 08:45:00 2023-12-05 10:00:37 Outpatient SHARRI LOWE [facility] [id number] [facility] 2023-12-05 00:00:00 2023-12-05 00:00:00 Travel 1.2.840.1 79514.1.1 3.104.2.7 .3.707077 .8 1.2.840.114 350.1.13.10 4.2.7.3.698 084.8 [id number] [facility] 2023-12-03 09:06:12 2023-12-03 09:06:12 Outpatient [facility] [id number] Georgi Johnson [place] 2023-10-27 00:00:00 2023-12-01 18:09:02 Patient Secure Msg Doctor Unassigned, [place] 1.2.840.1 69091.1.1 3.104.2.7 .3.092304 .8 [id number] [facility] 2023-11-28 23:48:00 2023-11-29 00:50:00 Emergency X EMILY SINGH [facility] ERT [id number] [facility] 2023-11-28 23:48:00 2023-11-29 00:50:00 Emergency Emily Singh 1.2.840.1 34704.1.1 3.104.2.7 .3.573666 .8 [id number] [facility] 2023-11-28 11:24:29 2023-11-28 11:24:29 Outpatient SFA SFA [id number] Georgi Delaney 2023-11-28 00:00:00 2023-11-28 00:00:00 Travel 1.2.840.1 46672.1.1 3.104.2.7 .3.986094 .8 1.2.840.114 350.1.13.10 4.2.7.3.698 084.8 [id number] [facility] 2023-11-23 18:48:41 2023-11-23 18:48:41 Outpatient SFA SFA [id number] Georgi Delaney 2023-11-22 18:32:19 2023-11-22 18:32:19 Outpatient SFA SFA [id number] Georgi Delaney 2023-11-21 11:42:56 2023-11-21 11:42:56 Outpatient SFA SFA [id number] Georgi Delaney 2023-11-19 14:35:59 2023-11-19 14:35:59 Outpatient SFA SFA [id number] Georgi Delaney 2023-10-17 00:00:00 2023-11-17 18:05:01 Patient Secure Msg Doctor Unassigned, [place] 1.2.840.1 37523.1.1 3.104.2.7 .3.958822 .8 [id number] [facility] 2023-11-15 18:25:25 2023-11-15 18:25:25 Outpatient SFA SFA [id number] Georgi Delaney 2023-11-14 11:21:10 2023-11-14 11:21:10 Outpatient SFA SFA [id number] Georgi Delaney 2023-11-12 08:45:00 2023-11-12 09:29:31 Outpatient R ATILIO ANDREWS [facility] [id number] [facility] 2023-11-12 00:00:00 2023-11-12 00:00:00 Travel 1.2.840.1 47508.1.1 3.104.2.7 .3.435314 .8 1.2.840.114 350.1.13.10 4.2.7.3.698 084.8 [id number] [facility] 2023-11-08 18:20:12 2023-11-08 18:20:12 Outpatient SFA SFA 28 Georgi Delaney 2023-11-07 12:59:12 2023-11-07 12:59:12 Outpatient SFA SFA 27 Georgi Johnson [place] 2023-11-06 10:18:34 2023-11-06 10:18:34 Outpatient SFA SFA [id number] Georgi Johnson [place] 2023-11-01 18:46:12 2023-11-01 18:46:12 Outpatient SFA SFA [id number] Georgi Johnson [place] 2023-11-01 08:30:00 2023-11-01 09:11:45 Outpatient R AFIA BEAULIEU [facility] [id number] [facility] 2023-11-01 08:30:00 2023-11-01 09:11:45 Office Visit Afia Beaulieu 1.2.840.1 38645.1.1 3.104.2.7 .3.983036 .8 [id number] [facility] 2023-10-31 12:52:35 2023-10-31 12:52:35 Outpatient SFA SFA [id number] Georgi Johnson [place] 2023-10-31 08:00:00 2023-10-31 09:01:39 Outpatient R OBI SHARIF [facility] [id number] [facility] 2023-10-31 00:00:00 2023-10-31 00:00:00 Travel 1.2.840.1 61025.1.1 3.104.2.7 .3.910456 .8 1.2.840.114 350.1.13.10 4.2.7.3.698 084.8 [id number] [facility] 2023-10-26 08:12:20 2023-10-26 08:12:20 Outpatient S[facility] [place] [id number] Georgi Delaney 2023-10-25 14:45:00 2023-10-25 23:59:00 Outpatient R RADIOLOGY [facility] [id number] [facility] 2023-10-25 14:45:00 2023-10-25 23:59:00 Hospital Encounter Radiology 1.2.840.1 96077.1.1 3.104.2.7 .3.752779 .8 [id number] [facility] 2023-10-25 17:25:44 2023-10-25 17:25:44 Outpatient SFA [facility] [id number] Georgi Delaney 2023-10-25 13:45:00 2023-10-25 14:44:00 Hospital Encounter Radiology 1.2.840.1 43230.1.1 3.104.2.7 .3.919196 .8 [id number] [facility] 2023-10-25 00:00:00 2023-10-25 00:00:00 Travel 1.2.840.1 94574.1.1 3.104.2.7 .3.931076 .8 1.2.840.114 350.1.13.10 4.2.7.3.698 084.8 [id number] [facility] 2023-10-24 11:20:39 2023-10-24 11:20:39 Outpatient SFA [facility] [id number] Georgi Delaney 2023-10-16 00:00:00 2023-10-23 10:33:52 Telephone Elly Blackburn 1.2.840.1 50692.1.1 3.104.2.7 .3.564390 .8 [id number] [facility] 2023-10-22 17:22:44 2023-10-22 17:22:44 Outpatient [facility] [id number] Georgi Delaney 2023-10-18 18:31:21 2023-10-18 18:31:21 Outpatient [facility] [id number] Georgi Delaney 2023-10-17 11:24:20 2023-10-17 11:24:20 Outpatient [facility] [id number] Georgi Delaney 2023-10-16 23:54:00 2023-10-17 01:45:00 Emergency X BONNIE ROCHA [facility] [id number] [facility] 2023-10-16 23:54:00 2023-10-17 01:45:00 Emergency Bonnie Rocha Jessie 1.2.840.1 14296.1.1 3.104.2.7 .3.526737 .8 [id number] [facility] 2023-10-16 00:00:00 2023-10-16 22:59:28 Nurse Triage Aydee Velascocecilia Langston 1.2.840.1 47434.1.1 3.104.2.7 .3.768661 .8 [id number] [facility] 2023-10-16 00:00:00 2023-10-16 00:00:00 Travel 1.2.840.1 53202.1.1 3.104.2.7 .3.468887 .8 1.2.840.114 350.1.13.10 4.2.7.3.698 084.8 [id number] [facility] 2023-10-15 08:45:00 2023-10-15 09:33:30 Outpatient ATILIO KHANNA [facility] [id number] [facility] 2023-10-15 00:00:00 2023-10-15 00:00:00 Travel 1.2.840.1 38890.1.1 3.104.2.7 .3.852374 .8 1.2.840.114 350.1.13.10 4.2.7.3.698 084.8 [id number] [facility] 2023-10-12 15:08:57 2023-10-12 15:08:57 Outpatient SFA SFA [id number] Georgi Delaney 2023-10-11 18:19:30 2023-10-11 18:19:30 Outpatient SFA SFA [id number] Georgi Delaney 2023-10-10 10:04:00 2023-10-10 10:04:00 Outpatient SFA SFA [id number] Georgi Delaney 2023-10-09 00:00:00 2023-10-10 09:41:53 Telephone Elly Blackburn 1.2.840.1 80907.1.1 3.104.2.7 .3.016323 .8 [id number] [facility] 2023-10-09 00:00:00 2023-10-10 09:09:54 Telephone Elly Blackburn 1.2.840.1 79764.1.1 3.104.2.7 .3.845141 .8 [id number] [facility] 2023-10-09 09:00:00 2023-10-09 09:00:00 Outpatient R ELLY BLACKBURN [facility] [id number] [facility] 2023-10-04 18:49:09 2023-10-04 18:49:09 Outpatient SFA SFA [id number] Georgi Delaney 2023-10-03 11:19:32 2023-10-03 11:19:32 Outpatient SFA SFA [id number] Georgi Delaney 2023-10-03 00:00:00 2023-10-03 10:53:24 Telephone Navneet Dang 1.2.840.1 11288.1.1 3.104.2.7 .3.002700 .8 [id number] [facility] 2023-10-01 16:58:20 2023-10-01 16:58:20 Outpatient SFA SFA [id number] Georgi Delaney 2023-09-28 00:00:00 2023-10-01 11:55:24 Telephone Michael Blackburnzad 1.2.840.1 87570.1.1 3.104.2.7 .3.154274 .8 [id number] [facility] 2023-10-01 08:45:00 2023-10-01 09:36:52 Outpatient R ATILIO ANDREWS [facility] [id number] [facility] 2023-10-01 00:00:00 2023-10-01 00:00:00 Travel 1.2.840.1 92877.1.1 3.104.2.7 .3.575036 .8 1.2.840.114 350.1.13.10 4.2.7.3.698 084.8 [id number] [facility] 2023-09-27 18:56:58 2023-09-27 18:56:58 Outpatient SFA [facility] [id number] Georgi Delaney 2023-09-27 00:00:00 2023-09-27 00:00:00 Travel 1.2.840.1 94914.1.1 3.104.2.7 .3.517713 .8 1.2.840.114 350.1.13.10 4.2.7.3.698 084.8 [id number] [facility] 2023-09-26 11:28:03 2023-09-26 11:28:03 Outpatient SFA [facility] [id number] Georgi Delaney 2023-09-19 11:47:58 2023-09-19 11:47:58 Outpatient SFA [facility] [id number] Georgi Delaney 2023-09-18 14:30:00 2023-09-18 15:13:10 Office Visit Afia Beaulieu 1.2.840.1 61763.1.1 3.104.2.7 .3.111022 .8 [id number] [facility] 2023-09-18 14:30:00 2023-09-18 15:13:10 Outpatient R AFIA BEAULIEU [facility] [id number] [facility] 2023-09-17 16:00:03 2023-09-17 16:00:03 Outpatient SFA [facility] [id number] Georgi Delaney 2023-09-17 08:45:00 2023-09-17 09:30:29 Outpatient R JAN ANDREWSIN [facility] [id number] [facility] 2023-09-17 00:00:00 2023-09-17 00:00:00 Travel 1.2.840.1 49479.1.1 3.104.2.7 .3.698749 .8 1.2.840.114 350.1.13.10 4.2.7.3.698 084.8 [id number] [facility] 2023-09-14 00:00:00 2023-09-14 00:00:00 Travel 1.2.840.1 10146.1.1 3.104.2.7 .3.812166 .8 1.2.840.114 350.1.13.10 4.2.7.3.698 084.8 [id number] [facility] 2023-09-13 18:25:18 2023-09-13 18:25:18 Outpatient SFA [facility] [id number] Georgi Delaney 2023-09-07 17:04:45 2023-09-07 17:04:45 Outpatient SFA [facility] [id number] Georgi Delaney 2023-09-06 18:58:45 2023-09-06 18:58:45 Outpatient SFA [facility] [id number] Georgi Delaney 2023-09-06 12:00:00 2023-09-06 12:15:00 [employer] Visit Ion Rahman 1.2.840.1 76636.1.1 3.104.2.7 .3.904594 .8 [id number] [facility] 2023-09-06 12:00:00 2023-09-06 12:00:00 Outpatient R ION RAHMAN STRAHIL [facility] [id number] [facility] 2023-09-06 00:00:00 2023-09-06 00:00:00 Orders Only Doctor Unassigned, [place] 1.2.840.1 42620.1.1 3.104.2.7 .3.746247 .8 [id number] [facility] 2023-09-06 00:00:00 2023-09-06 00:00:00 Travel 1.2.840.1 55916.1.1 3.104.2.7 .3.748455 .8 1.2.840.114 350.1.13.10 4.2.7.3.698 084.8 [id number] [facility] 2023-09-05 11:23:13 2023-09-05 11:23:13 Outpatient SFA [facility] [id number] Georgi Delaney 2023-09-03 16:53:51 2023-09-03 16:53:51 Outpatient [facility] [id number] Georgi Delaney 2023-09-03 08:45:00 2023-09-03 09:29:48 Outpatient R ATILIO ANDREWS [facility] [id number] [facility] 2023-09-03 00:00:00 2023-09-03 00:00:00 Travel 1.2.840.1 82017.1.1 3.104.2.7 .3.871880 .8 1.2.840.114 350.1.13.10 4.2.7.3.698 084.8 [id number] [facility] 2023-08-31 00:00:00 2023-08-31 00:00:00 Travel 1.2.840.1 06345.1.1 3.104.2.7 .3.685399 .8 1.2.840.114 350.1.13.10 4.2.7.3.698 084.8 [id number] [facility] 2023-08-30 18:59:50 2023-08-30 18:59:50 Outpatient SFA SFA [id number] Georgi Delaney 2023-08-29 11:54:24 2023-08-29 11:54:24 Outpatient SFA SFA [id number] Georgi Delaney 2023-08-28 11:00:00 2023-08-28 11:45:13 Outpatient R ELLY BLACKBURN [facility] [id number] [facility] 2023-08-28 11:00:00 2023-08-28 11:45:13 Office Visit Elly Blackburn 1.2.840.1 63430.1.1 3.104.2.7 .3.102765 .8 [id number] [facility] 2023-08-28 00:00:00 2023-08-28 00:00:00 Travel 1.2.840.1 99000.1.1 3.104.2.7 .3.796640 .8 1.2.840.114 350.1.13.10 4.2.7.3.698 084.8 [id number] [facility] 2023-08-22 11:25:11 2023-08-22 11:25:11 Outpatient SFA SFA [id number] Georgi Delaney 2023-08-22 08:00:00 2023-08-22 08:00:00 Outpatient R [facility] [id number] [facility] 2023-08-16 18:23:26 2023-08-16 18:23:26 Outpatient SFA SFA [id number] Georgi Delaney 2023-08-15 12:35:53 2023-08-15 12:35:53 Outpatient SFA SFA [id number] Georgi Delaney 2023-08-09 18:21:08 2023-08-09 18:21:08 Outpatient SFA SFA [id number] Georgi Delaney 2023-08-08 17:08:47 2023-08-08 17:08:47 Outpatient SFA SFA [id number] Georgi Delaney 2023-08-02 18:23:13 2023-08-02 18:23:13 Outpatient [facility] [id number] Georgi Delaney 2023-07-31 09:40:50 2023-07-31 09:40:50 Outpatient [facility] [id number] Georgi Delaney 2023-07-30 09:30:00 2023-07-30 10:00:26 Outpatient R ISELA FERREIRA [facility] [id number] [facility] 2023-07-30 00:00:00 2023-07-30 00:00:00 Travel 1.2.840.1 67684.1.1 3.104.2.7 .3.610904 .8 1.2.840.114 350.1.13.10 4.2.7.3.698 084.8 [id number] [facility] 2023-07-26 10:40:34 2023-07-26 10:40:34 Outpatient [facility] [id number] Georgi Delaney 2023-07-23 08:45:00 2023-07-23 10:33:12 Outpatient R CHANEL JACOME [facility] [id number] [facility] 2023-07-23 00:00:00 2023-07-23 00:00:00 Travel 1.2.840.1 90465.1.1 3.104.2.7 .3.981307 .8 1.2.840.114 350.1.13.10 4.2.7.3.698 084.8 [id number] [facility] 2023-07-23 00:00:00 2023-07-23 00:00:00 Orders Only Doctor Unassigned, [place] 1.2.840.1 24807.1.1 3.104.2.7 .3.710845 .8 [id number] [facility] 2023-07-20 00:00:00 2023-07-20 00:00:00 Travel 1.2.840.1 07474.1.1 3.104.2.7 .3.469814 .8 1.2.840.114 350.1.13.10 4.2.7.3.698 084.8 [id number] [facility] 2023-07-19 18:54:32 2023-07-19 18:54:32 Outpatient [facility] [id number] Georgi Delaney 2023-07-19 00:00:00 2023-07-19 00:00:00 Patient Secure Msg Doctor Unassigned, [place] 1.2.840.1 13547.1.1 3.104.2.7 .3.632171 .8 [id number] [facility] 2023-07-18 08:00:00 2023-07-18 09:04:35 Outpatient SHARRI LOWE KIM[facility]LY [facility] [id number] [facility] 2023-07-18 00:00:00 2023-07-18 00:00:00 Travel 1.2.840.1 49805.1.1 3.104.2.7 .3.124318 .8 1.2.840.114 350.1.13.10 4.2.7.3.698 084.8 [id number] [facility] 2023-07-17 17:38:54 2023-07-17 17:38:54 Outpatient [facility] [id number] Georgi Delaney 2023-07-16 17:57:32 2023-07-16 17:57:32 Outpatient [facility] [id number] Georgi Delaney 2023-07-16 00:00:00 2023-07-16 00:00:00 Travel 1.2.840.1 81931.1.1 3.104.2.7 .3.358415 .8 1.2.840.114 350.1.13.10 4.2.7.3.698 084.8 [id number] [facility] 2023-07-12 18:22:31 2023-07-12 18:22:31 Outpatient [facility] [id number] Georgi Delaney 2023-07-12 00:00:00 2023-07-12 00:00:00 Telephone Navneet Dang 1.2.840.1 45706.1.1 3.104.2.7 .3.927622 .8 [id number] [facility] 2023-07-11 00:00:00 2023-07-11 00:00:00 Telephone Afia Beaulieu 1.2.840.1 76732.1.1 3.104.2.7 .3.108609 .8 [id number] [facility] 2023-07-10 12:48:46 2023-07-10 12:48:46 Outpatient SFA [facility] 28 Georgi Delaney 2023-07-04 08:45:00 2023-07-04 08:45:00 Outpatient R CHANEL JACOME [facility] [id number] [facility] 2023-07-04 00:00:00 2023-07-04 00:00:00 Travel 1.2.840.1 05450.1.1 3.104.2.7 .3.145251 .8 1.2.840.114 350.1.13.10 4.2.7.3.698 084.8 [id number] [facility] 2023-06-28 17:20:13 2023-06-28 17:20:13 Outpatient SFA [facility] [id number] Georgi Delaney 2023-06-26 17:09:38 2023-06-26 17:09:38 Outpatient SFA [facility] [id number] Georgi Delaney 2023-06-25 14:22:23 2023-06-25 14:22:23 Outpatient SFA [facility] [id number] Georgi Delaney 2023-06-22 14:53:38 2023-06-22 14:53:38 Outpatient SFA [facility] [id number] Georgi Delaney 2023-06-20 08:45:00 2023-06-20 09:49:50 Outpatient R [facility]ANEL [facility] [id number] [facility] 2023-06-19 00:00:00 2023-06-19 00:00:00 Travel 1.2.840.1 98738.1.1 3.104.2.7 .3.618310 .8 1.2.840.114 350.1.13.10 4.2.7.3.698 084.8 [id number] [facility] 2023-06-18 17:35:48 2023-06-18 17:35:48 Outpatient SFA SFA [id number] Georgi Delaney 2023-06-14 18:57:51 2023-06-14 18:57:51 Outpatient SFA [facility] [id number] Georgi Delaney 2023-06-12 12:20:21 2023-06-12 12:20:21 Outpatient SFA [facility] [id number] Georgi Delaney 2023-06-12 00:00:00 2023-06-12 00:00:00 Patient Secure Msg Doctor Unassigned, [place] 1.2.840.1 33453.1.1 3.104.2.7 .3.534078 .8 [id number] [facility] 2023-06-07 18:30:14 2023-06-07 18:30:14 Outpatient SFA [facility] [id number] Georgi Delaney 2023-06-06 12:03:13 2023-06-06 12:03:13 Outpatient SFA [facility] [id number] Georgi Delaney 2023-06-06 08:45:00 2023-06-06 09:45:02 Outpatient CHANEL HAYES [facility] [id number] [facility] 2023-06-05 11:42:00 2023-06-05 11:42:00 Outpatient SFA [facility] [id number] Georgi Delaney 2023-06-05 00:00:00 2023-06-05 00:00:00 Travel 1.2.840.1 92433.1.1 3.104.2.7 .3.315666 .8 1.2.840.114 350.1.13.10 4.2.7.3.698 084.8 [id number] [facility] 2023-05-30 17:31:37 2023-05-30 17:31:37 Outpatient SFA SFA [id number] Georgi Delaney 2023-05-30 00:00:00 2023-05-30 00:00:00 Telephone Afia Beaulieu 1.2.840.1 79733.1.1 3.104.2.7 .3.126614 .8 [id number] [facility] 2023-05-29 11:50:55 2023-05-29 11:50:55 Outpatient SFA [facility] 17 Georgi Delaney 2023-05-24 18:32:38 2023-05-24 18:32:38 Outpatient SFA [facility] 12 Georgi Delaney 2023-05-24 08:30:00 2023-05-24 08:53:04 Outpatient R BRITTNEE AFIA [facility] [id number] [facility] 2023-05-24 08:30:00 2023-05-24 08:53:04 Office Visit Afia Beaulieu 1.2.840.1 69643.1.1 3.104.2.7 .3.666263 .8 [id number] [facility] 2023-05-24 00:00:00 2023-05-24 00:00:00 Travel 1.2.840.1 50706.1.1 3.104.2.7 .3.003166 .8 1.2.840.114 350.1.13.10 4.2.7.3.698 084.8 [id number] [facility] 2023-05-23 16:37:51 2023-05-23 16:37:51 Outpatient SFA SFA 11 Georgi Delaney 2023-05-22 11:25:17 2023-05-22 11:25:17 Outpatient SFA SFA [id number] Georgi Delaney 2023-05-18 00:00:00 2023-05-18 00:00:00 Nurse Triage Jens Carranza, Sharri Canseco 1.2.840.1 12766.1.1 3.104.2.7 .3.520824 .8 [id number] [facility] 2023-05-17 18:32:35 2023-05-17 18:32:35 Outpatient SFA SFA [id number] Georgi Delaney 2023-05-15 17:38:26 2023-05-15 17:38:26 Outpatient SFA SFA [id number] Georgi Delaney 2023-05-10 18:53:57 2023-05-10 18:53:57 Outpatient SFA SFA [id number] Georgi Delaney 2023-05-09 08:45:00 2023-05-09 10:11:14 Outpatient SHARRI LOWE KIMBERLY [facility] [id number] [facility] 2023-05-09 00:00:00 2023-05-09 00:00:00 Travel 1.2.840.1 56138.1.1 3.104.2.7 .3.079247 .8 1.2.840.114 350.1.13.10 4.2.7.3.698 084.8 [id number] [facility] 2023-05-08 11:49:40 2023-05-08 11:49:40 Outpatient SFA SFA [id number] Georgi Delaney 2023-05-04 12:44:08 2023-05-04 12:44:08 Outpatient SFA SFA [id number] Georgi Delaney 2023-05-03 18:32:26 2023-05-03 18:32:26 Outpatient SFA SFA [id number] Georgi Delaney 2023-05-01 11:35:50 2023-05-01 11:35:50 Outpatient SFA SFA [id number] Georgi Delaney 2023-04-26 18:54:59 2023-04-26 18:54:59 Outpatient SFA SFA [id number] Georgi Delaney 2023-04-25 08:45:00 2023-04-25 10:13:07 Outpatient CHANEL HAYES [facility] [id number] [facility] 2023-04-25 00:00:00 2023-04-25 00:00:00 Travel 1.2.840.1 36269.1.1 3.104.2.7 .3.506503 .8 1.2.840.114 350.1.13.10 4.2.7.3.698 084.8 [id number] [facility] 2023-04-24 11:26:23 2023-04-24 11:26:23 Outpatient SFA [facility] [id number] Georgi Delaney 2023-04-20 19:36:00 2023-04-20 23:55:00 Emergency X GEORGETTE JEFFREY [facility] [id number] [facility] 2023-04-20 19:36:00 2023-04-20 23:55:00 Emergency Georgette Jeffrey S 1.2.840.1 88408.1.1 3.104.2.7 .3.075110 .8 [id number] [facility] 2023-04-20 00:00:00 2023-04-20 00:00:00 Nurse Triage Mildred Harmon 1.2.840.1 52653.1.1 3.104.2.7 .3.948208 .8 [id number] [facility] 2023-04-20 00:00:00 2023-04-20 00:00:00 Travel 1.2.840.1 28852.1.1 3.104.2.7 .3.669842 .8 1.2.840.114 350.1.13.10 4.2.7.3.698 084.8 [id number] [facility] 2023-04-19 18:30:50 2023-04-19 18:30:50 Outpatient SFA [facility] [id number] Georgi Delaney 2023-04-17 14:29:59 2023-04-17 14:29:59 Outpatient SFA [facility] [id number] Georgi Delaney 2023-04-13 08:56:15 2023-04-13 23:59:00 Hospital Encounter Radiology 1.2.840.1 55568.1.1 3.104.2.7 .3.714446 .8 [id number] [facility] 2023-04-13 08:56:15 2023-04-13 23:59:00 Outpatient R RADIOLOGY [facility] [id number] [facility] 2023-04-13 08:55:54 2023-04-13 08:55:54 Hospital Encounter Radiology 1.2.840.1 52477.1.1 3.104.2.7 .3.467161 .8 [id number] [facility] 2023-04-13 08:55:27 2023-04-13 08:55:27 Hospital Encounter Radiology 1.2.840.1 71686.1.1 3.104.2.7 .3.266907 .8 [id number] [facility] 2023-04-12 19:00:40 2023-04-12 19:00:40 Outpatient SFA SFA [id number] Georgi Delaney 2023-04-10 11:30:44 2023-04-10 11:30:44 Outpatient SFA SFA [id number] Georgi Delaney 2023-04-05 18:18:42 2023-04-05 18:18:42 Outpatient SFA SFA [id number] Georgi Delaney 2023-04-04 09:30:00 2023-04-04 10:41:40 Outpatient R SELF, CHANEL [facility] [id number] [facility] 2023-04-04 00:00:00 2023-04-04 00:00:00 Travel 1.2.840.1 06075.1.1 3.104.2.7 .3.378974 .8 1.2.840.114 350.1.13.10 4.2.7.3.698 084.8 [id number] [facility] 2023-04-03 11:21:59 2023-04-03 11:21:59 Outpatient SFA SFA [id number] Georgi Delaney 2023-03-29 18:55:20 2023-03-29 18:55:20 Outpatient SFA [facility] [id number] Georgi Delaney 2023-03-27 12:02:13 2023-03-27 12:02:13 Outpatient SFA [facility] [id number] Georgi Delaney 2023-03-21 10:15:00 2023-03-21 13:01:48 Outpatient SHARRI LOWE [facility] [id number] [facility] 2023-03-21 00:00:00 2023-03-21 00:00:00 Travel 1.2.840.1 83937.1.1 3.104.2.7 .3.023898 .8 1.2.840.114 350.1.13.10 4.2.7.3.698 084.8 [id number] [facility] 2023-03-20 12:37:00 2023-03-20 12:37:00 Outpatient SFA [facility] [id number] Georgi Delaney 2023-03-19 14:00:00 2023-03-19 14:34:36 Outpatient R AFIA BEAULIEU [facility] [id number] [facility] 2023-03-19 14:00:00 2023-03-19 14:34:36 Office Visit Afia Beaulieu 1.2.840.1 44625.1.1 3.104.2.7 .3.790252 .8 [id number] [facility] 2023-03-19 00:00:00 2023-03-19 00:00:00 Travel 1.2.840.1 25419.1.1 3.104.2.7 .3.242736 .8 1.2.840.114 350.1.13.10 4.2.7.3.698 084.8 [id number] [facility] 2023-03-16 00:00:00 2023-03-16 00:00:00 Travel 1.2.840.1 99512.1.1 3.104.2.7 .3.272780 .8 1.2.840.114 350.1.13.10 4.2.7.3.698 084.8 [id number] [facility] 2023-03-15 18:23:30 2023-03-15 18:23:30 Outpatient SFA SFA [id number] Georgi Delaney 2023-03-13 15:41:52 2023-03-13 15:41:52 Outpatient SFA SFA [id number] Georgi Delaney 2023-03-09 18:15:48 2023-03-09 18:15:48 Outpatient SFA SFA [id number] Georgi Delaney 2023-03-08 18:27:54 2023-03-08 18:27:54 Outpatient SFA SFA [id number] Georgi Delaney 2023-03-07 17:09:40 2023-03-07 17:09:40 Outpatient SFA SFA [id number] Georgi Delaney 2023-03-06 13:55:04 2023-03-06 13:55:04 Outpatient SFA SFA [id number] Georgi Delaney 2023-03-01 19:02:12 2023-03-01 19:02:12 Outpatient SFA SFA [id number] Georgi Delaney 2023-02-27 12:52:47 2023-02-27 12:52:47 Outpatient SFA SFA [id number] Georgi Delaney 2023-02-27 00:00:00 2023-02-27 00:00:00 Telephone Afia Beaulieu 1.2.840.1 79437.1.1 3.104.2.7 .3.716501 .8 [id number] [facility] 2023-02-26 14:06:01 2023-02-26 23:59:00 Outpatient R AFIA BEAULIEU [facility] [id number] [facility] 2023-02-26 14:06:01 2023-02-26 23:59:00 Hospital Encounter Afia Beaulieu 1.2.840.1 68307.1.1 3.104.2.7 .3.612888 .8 [id number] [facility] 2023-02-26 00:00:00 2023-02-26 00:00:00 Orders Only Doctor Unassigned, [place] 1.2.840.1 35034.1.1 3.104.2.7 .3.589270 .8 [id number] [facility] 2023-02-23 00:00:00 2023-02-23 00:00:00 Outpatient AFIA MELVIN [facility] [id number] [facility] 2023-02-22 18:59:42 2023-02-22 18:59:42 Outpatient AL [facility] [id number] Georgi Delaney 2023-02-22 08:00:00 2023-02-22 10:21:38 Outpatient ISELA HAIDER [facility] [id number] [facility] 2023-02-22 00:00:00 2023-02-22 00:00:00 Orders Only Doctor Unassigned, [place] [facility] 1.2.840.114 350.1.13.10 4.2.7.2.686 [id number] [facility] 2023-02-22 00:00:00 2023-02-22 00:00:00 Travel 1.2.840.1 05068.1.1 3.104.2.7 .3.925645 .8 1.2.840.114 350.1.13.10 4.2.7.3.698 084.8 [id number] [facility] 2023-02-20 00:00:00 2023-02-20 00:00:00 Afia Yin 1.2.840.1 98865.1.1 3.104.2.7 .3.598992 .8 [id number] [facility] 2023-02-20 00:00:00 2023-02-20 00:00:00 Travel 1.2.840.1 30740.1.1 3.104.2.7 .3.319541 .8 1.2.840.114 350.1.13.10 4.2.7.3.698 084.8 [id number] [facility] 2023-02-19 00:00:00 2023-02-19 00:00:00 Telephone Afia Beaulieu 1.2.840.1 77171.1.1 3.104.2.7 .3.899698 .8 [id number] [facility] 2023-02-16 16:00:00 2023-02-16 16:37:59 Outpatient R AFIA BEAULIEU [facility] [id number] [facility] 2023-02-16 16:00:00 2023-02-16 16:37:59 Office Visit Afia Beaulieu 1.2.840.1 67310.1.1 3.104.2.7 .3.347453 .8 [id number] [facility] 2023-02-16 10:40:55 2023-02-16 10:40:55 Outpatient [facility] [id number] Georgi Delaney 2023-02-16 00:00:00 2023-02-16 00:00:00 Orders Only Doctor Unassigned, [place] 1.2.840.1 60142.1.1 3.104.2.7 .3.063333 .8 [id number] [facility] 2023-02-16 00:00:00 2023-02-16 00:00:00 Telephone Afia Beaulieu 1.2.840.1 62067.1.1 3.104.2.7 .3.788201 .8 [id number] [facility] 2023-02-16 00:00:00 2023-02-16 00:00:00 Refill Afia Beaulieu 1.2.840.1 74645.1.1 3.104.2.7 .3.319940 .8 [id number] [facility] 2023-02-16 00:00:00 2023-02-16 00:00:00 Travel 1.2.840.1 17603.1.1 3.104.2.7 .3.889228 .8 1.2.840.114 350.1.13.10 4.2.7.3.698 084.8 [id number] [facility] 2023-02-15 18:29:11 2023-02-15 18:29:11 Outpatient SFA [facility] [id number] Georgi Johnson Rhett 2023-01-24 14:36:00 2023-01-24 14:36:00 Outpatient SFA [facility] [id number] Georgi Johnson [place] 2023-01-23 11:08:53 2023-01-23 11:08:53 Outpatient SFA [facility] [id number] Georgi Johnson Rhett 2023-01-23 00:00:00 2023-01-23 00:00:00 Orders Only Doctor Unassigned, [place] 1.2.840.1 45612.1.1 3.104.2.7 .3.254555 .8 [id number] [facility] 2023-01-18 15:07:35 2023-01-18 15:07:35 Outpatient SFA [facility] [id number] Georgi Johnson Rhett 2023-01-16 16:50:24 2023-01-16 16:50:24 Outpatient [facility] [id number] Georgi Johnson [place] 2023-01-08 15:29:19 2023-01-08 15:29:19 Outpatient SFA [facility] [id number] Georgi Johnson [place] 2023-01-03 00:00:00 2023-01-03 00:00:00 Orders Only Doctor Unassigned, [place] 1.2.840.1 27812.1.1 3.104.2.7 .3.800288 .8 [id number] [facility] 2022-12-23 09:11:36 2022-12-23 09:11:36 Outpatient SFA [facility] [id number] Georgi Johnson [place] 2022-12-11 16:09:25 2022-12-11 16:09:25 Outpatient SFA SFA [id number] Georgi Delaney 2022-12-05 10:53:45 2022-12-05 10:53:45 Outpatient SFA SFA [id number] Georgi Delaney 2022-11-28 17:46:35 2022-11-28 17:46:35 Outpatient SFA SFA [id number] Georgi Delaney 2022-11-20 00:00:00 2022-11-20 00:00:00 [facility] 1.2.840.114 350.1.13.10 4.2.7.2.686 [id number] [facility] 2022-11-17 11:28:22 2022-11-17 11:28:22 Outpatient SFA SFA [id number] Georgi Delaney 2022-11-08 13:56:45 2022-11-08 13:56:45 Outpatient SFA SFA [id number] Georgi Delaney 2022-11-01 11:26:47 2022-11-01 11:26:47 Outpatient SFA SFA 22 Georgi Delaney 2022-10-31 13:04:58 2022-10-31 13:04:58 Outpatient SFA SFA 21 Georgi Delaney 2022-10-20 11:25:26 2022-10-20 11:25:26 Outpatient SFA SFA [id number] Georgi Delaney 2022-10-19 14:02:23 2022-10-19 14:02:23 Outpatient SFA SFA [id number] Georgi Delaney 2022-10-09 10:08:28 2022-10-09 10:08:28 Outpatient SFA SFA [id number] Georgi Delaney 2022-09-21 11:54:36 2022-09-21 11:54:36 Outpatient SFA SFA [id number] Georgi Delaney 2022-09-15 11:33:15 2022-09-15 11:33:15 Outpatient SFA SFA [id number] Georgi Delaney 2022-09-08 10:49:58 2022-09-08 10:49:58 Outpatient SFA SFA 27 Georgi Delaney 2022-09-07 15:51:56 2022-09-07 15:51:56 Outpatient SFA SFA Georgi Delaney 2022-09-05 10:47:25 2022-09-05 10:47:25 Outpatient SFA SFA Georgi Delaney 2022-09-04 11:21:25 2022-09-04 11:21:25 Outpatient SFA SFA Georgi Delaney 2022-08-30 15:33:51 2022-08-30 15:33:51 Outpatient SFA SFA Georgi Delaney 2022-08-30 00:00:00 2022-08-30 00:00:00 Outpatient Visit [id number] [id number] -8adf-9d4 [id number] 485-45fb-8 adf-9d42c4 aa65e7 2022-08-25 10:13:30 2022-08-25 10:13:30 Outpatient SFA SFA 13 Georgi Delaney 2022-08-11 09:20:54 2022-08-11 09:20:54 Outpatient SFA SFA Georgi Delaney 2022-07-28 11:30:57 2022-07-28 11:30:57 Outpatient SFA SFA Georgi Delaney 2022-07-14 11:31:56 2022-07-14 11:31:56 Outpatient SFA SFA Georgi Delaney 2022-06-29 15:28:07 2022-06-29 15:28:07 Outpatient SFA SFA Georgi Delaney 2022-06-29 00:00:00 2022-06-29 00:00:00 Outpatient Visit [id number] [id number] -[id number] 088-44b4-8 443-99fcb6 b36be4 2022-06-16 11:17:33 2022-06-16 11:17:33 Outpatient SFA [facility] [id number] Georgi Delaney 2022-06-15 09:41:11 2022-06-15 09:41:11 Outpatient SFA [facility] [id number] Georgi Delaney 2022-06-08 00:00:00 2022-06-08 00:00:00 Outpatient Visit 39cfmzm1- 1155-48b2 -qp4j-ox1 [id number] 155-48b2-b l0p-vb5c0s 7966fb 2022-04-27 00:00:00 2022-04-27 00:00:00 Outpatient Visit [id number]- 59z6-98n1 -dq85-06o n19or7o4j [id number]-3 2c9-65d4-d q77-75hr83 ab5d1b 2022-03-02 00:00:00 2022-03-02 00:00:00 Outpatient Visit [id number] [id number] -926c-c29 [id number] g45-2p53-9 [id number] [id number] 2021-07-27 11:56:00 2021-07-27 15:42:00 Emergency X Yamil MESSINA [facility] ERT [id number] [facility] 2021-07-27 11:56:00 2021-07-27 15:42:00 Emergency Yamil Mess[facility] ..840.114 350.1.13.10 4.2.7.2.686 [id number] [facility] 2021-06-24 22:06:00 2021-06-24 23:54:00 Emergency X YOON PAGE [facility] ERT [id number] [facility] 2021-06-24 22:06:00 2021-06-24 23:54:00 Emergency Yoon Page [facility] ..840.114 350.1.13.10 4.2.7.2.686 [id number] [facility] 2021-06-24 00:00:00 2021-06-24 00:00:00 Orders Only Doctor Unassigned, [place] [facility] 1.2840.114 350.1.13.10 4.2.7.2.686 [id number] [facility] 2021-02-17 14:13:58 2021-02-17 15:19:24 Office Visit Pgy2 Marques Mansfield [facility] 1.20.114 350.1.13.10 4.2.7.2.686 [id number] [facility] 2021-02-17 14:00:00 2021-02-17 14:00:00 Outpatient R [facility] [id number] [facility] 2021-01-06 00:00:00 2021-01-06 00:00:00 Orders Only Doctor Unassigned, [place] [facility] 1.2840.114 350.1.13.10 4.2.7.2.686 [id number] [facility] 2021-01-05 13:58:29 2021-01-05 16:19:12 Office Visit Santos[facility] Aracely Villanueva [facility] 1.2840.114 350.1.13.10 4.2.7.2.686 [id number] [facility] 2021-01-05 14:15:00 2021-01-05 14:15:00 Outpatient R [facility] [id number] [facility] 2020-12-10 00:00:00 2020-12-10 00:00:[address] [facility] 1.2840.114 350.1.13.10 4.2.7.2.686 [id number] [facility] 2020-12-07 14:35:42 2020-12-07 16:30:20 Office Visit Santos, [facility] Res[facility] Jeanette Campos [facility] 1..840.114 350.1.13.10 4.2.7.2.686 [id number] [facility] 2020-12-07 14:30:00 2020-12-07 14:30:00 Outpatient R JEANETTE CAMPOS [facility] [id number] [facility] 2020-12-07 00:00:00 2020-12-07 00:00:00 Orders Only Doctor Unassigned, [place] [facility] 1..840.114 350.1.13.10 4.2.7.2.686 [id number] [facility] 2020-12-02 14:05:00 2020-12-02 14:05:00 Outpatient BEBE ACUNA [facility] [id number] [facility] Results Test Description Test Time Test Comments Results Result Co mments Source HCG SERUM [id number] 15:15:00* Test Item Value Reference Range Interpretation Comme nts HCG SERUM QUAL (test code = HCGQL) SERUM NEGATIVE SCREEN NEGATIVE CBC W/O [id number] 14:53:00* Test Item Value Reference Range Interpretation [...] = MPV) 10.50 fL 7.0-10.5 N CULTURE, [id number] 10:18:02SPECIMEN NUMBER: [id number] CULTURE, URINE SPECIMEN NUMBER: [id number] SPECIMEN COMMENT: URINE SOURCE: URINE REPORT STATUS: FINAL FINAL REPORT: 01/11/2024 50-100,000 CFU/ML UROGENITAL KELLY PRESENT NO C OMMON PATHOGENS UNLESS OTHERWISE INDICATED, ALL TESTING PERFORMED AT [facility] [address] [place] [address] MANAGER GOLF: TOM MORALES M.D. CLIA NUMBER [id number] [place]. [id number] CULTURE, [id number] 00:00:00* Test Item Value Reference Range Interpretation Comme nts CULTURE, URINE (test code = 80117) SPECIMEN NUMBER: [id number] Georgi Matthews, THIRD [id number] 06:31:41* Test Item Value Reference Range Interpretation Comme nts TSH, THIRD GENERATION (test code = 2821) 0.104 UIU/ML 0.400-4.100 L UNLESS OTHERWISE INDICATED, ALL TESTING PERFORMED AT [facility] [address] [place] [address] MANAGER GOLF: TOM MORALES M.D. CLIA NUMBER [id number] [place]. [id number] TSH, THIRD [id number] 00:00:00* Test Item Value Reference Range Interpretation Comme nts TSH, THIRD GENERATION (test code = 2821) 0.104 UIU/ML Georgi TatumH, THIRD [id number] 00:00:00* Test Item Value Reference Range Interpretation Comme nts TSH, THIRD GENERATION (test code = 2821) 0.104 UIU/ML Georgi Alex TatumH, THIRD [id number] 00:00:00* Test Item Value Reference Range Interpretation Comme nts TSH, THIRD GENERATION (test code = 2821) 0.104 UIU/ML Georgi DelaneyREFERRAL- REQUEST/[id number] 16:25:56Ordered by an unspecified provider.[facility]/[id number] 16:25:56[facility] by an unspecified provider.[facility]/[id number] 16:25:56Ordered by an unspecified provider.[facility]/[id number] 16:25:56Ordered by an unspecified provider.[facility]/[id number] 16:25:56Ordered by an unspecified provider.[facility]/[id number] 16:25:56Ordered by an unspecified provider.[facility]/[id number] 16:25:56Ordered by an unspecified provider.[facility]/[id number] 16:25:56Ordered by an unspecified provider.[facility]/[id number] 16:25:56Ordered by an unspecified provider.[facility]/[id number] 16:25:56Ordered by an unspecified provider.[facility]/[id number] 16:25:56Ordered by an unspecified provider.[facility]/[id number] 16:25:56Ordered by an unspecified provider.[facility]/[id number] 16:25:56Ordered by an unspecified provider.[facility]/[id number] 16:25:56Ordered by an unspecified provider.[facility]/[id number] 16:25:56Ordered by an unspecified provider.[facility] L[facility]BAR [facility] 4 VW 2023-10-25 20:17:08HISTORY: ?Low back pain. FINDINGS: AP, lateral and 2 oblique views of the lumbar spines obtained inupright position showed 5 lumbar vertebrae with no acute compressionfracture or dislocation. No aggressive bone lesions. Exaggerated lumbar lordosis is noted with small osteophytes along theventral binh tebral margins at L2-L3, L3-L4 levels, with minimalretrolisthesis of L2 over L3. Minimal narrowing of L3-L4, L4-L5 disc spaces noted. Small sized L5-S1 discspace could be a developmental variation. Oblique view showed bilateral lower 2 lumbar level facet arthritis. CONCLUSIONS: Exaggerated lumbar lordosis with lower 2 lumbar level facetarthritis and mild changes of disc disease at L3-L4, L4-L5. [facility] THORACIC SPINE 2 [id number] 20:15:05 HISTORY: ?Back pain. COMPARISON: None. TECHNIQUE: AP and lateral views of the thoracic spines are submitted. FINDINGS: No compression fracture detected. No aggressive bone lesions orparavertebral soft tissue swelling. Small osteophytes are seen along theventral and lateral vertebral margins at middle and lower thoracic levels. CONCLUSIONS: No fracture.[facility] [id number] 06:14:00* Test Item Value Reference Range Interpretation Comme nts POCT PREG (test code = 1605) Negative On board controls acceptable with C Line (test code = 3574) Yes POCT PREG LOT # (test code = 3575) [id number] POCT PREG TEST DATE ( test code = 3576) 11/18/2024 Lab Interpretation (test cod e = 64843-7) Normal [facility] [id number] 06:14:00* Test Item Value Reference Range Interpretation Comme nts POCT PREG (test code = 1605) Negative On board controls acceptable with C Line (test code = 3574) Yes POCT PREG LOT # (test code = 3575) [id number] POCT PREG TEST DATE ( test code = 3576) 11/18/2024 Lab Interpretation (test cod e = 45023-8) Normal [facility] [id number] 06:14:00* Test Item Value Reference Range Interpretation Comme nts POCT PREG (test code = 1605) Negative On board controls acceptable with C Line (test code = 3574) Yes POCT PREG LOT # (test code = 3575) [id number] POCT PREG TEST DATE ( test code = 3576) 11/18/2024 Lab Interpretation (test cod e = 65464-8) Normal [facility] [id number] 06:14:00* Test Item Value Reference Range Interpretation Comme nts POCT PREG (test code = 1605) Negative On board controls acceptable with C Line (test code = 3574) Yes POCT PREG LOT # (test code = 3575) [id number] POCT PREG TEST DATE ( test code = 3576) 11/18/2024 Lab Interpretation (test cod e = 61784-4) [facility] [id number] 06:14:00* Test Item Value Reference Range Interpretation Comme nts POCT PREG (test code = 1605) Negative On board controls acceptable with C Line (test code = 3574) Yes POCT PREG LOT # (test code = 3575) [id number] POCT PREG TEST DATE ( test code = 3576) 11/18/2024 Lab Interpretation (test cod e = 53740-1) [facility] [id number] 06:14:00* Test Item Value Reference Range Interpretation Comme nts POCT PREG (test code = 1605) Negative On board controls acceptable with C Line (test code = 3574) Yes POCT PREG LOT # (test code = 3575) [id number] POCT PREG TEST DATE ( test code = 3576) 11/18/2024 Lab Interpretation (test cod e = 63464-1) [facility] [id number] 06:14:00* Test Item Value Reference Range Interpretation Comme nts POCT PREG (test code = 1605) Negative On board controls acceptable with C Line (test code = 3574) Yes POCT PREG LOT # (test code = 3575) [id number] POCT PREG TEST DATE ( test code = 3576) 11/18/2024 Lab Interpretation (test cod e = 23458-0) [facility] [id number] 06:14:00* Test Item Value Reference Range Interpretation Comme nts POCT PREG (test code = 1605) Negative On board controls acceptable with C Line (test code = 3574) Yes POCT PREG LOT # (test code = 3575) [id number] POCT PREG TEST DATE ( test code = 3576) 11/18/2024 Lab Interpretation (test cod e = 06060-6) [facility] [id number] 06:14:00* Test Item Value Reference Range Interpretation Comme nts POCT PREG (test code = 1605) Negative On board controls acceptable with C Line (test code = 3574) Yes POCT PREG LOT # (test code = 3575) [id number] POCT PREG TEST DATE ( test code = 3576) 11/18/2024 Lab Interpretation (test cod e = 13679-7) [facility] [facility] [id number] 06:14:00* Test Item Value Reference Range Interpretation Comme nts POCT PREG (test code = 1605) Negative On board controls acceptable with C Line (test code = 3574) Yes POCT PREG LOT # (test code = 3575) [id number] POCT PREG TEST DATE ( test code = 3576) 11/18/2024 Lab Interpretation (test cod e = 78256-0) [facility] [id number] 06:14:00* Test Item Value Reference Range Interpretation Comme nts POCT PREG (test code = 1605) Negative On board controls acceptable with C Line (test code = 3574) Yes POCT PREG LOT # (test code = 3575) [id number] POCT PREG TEST DATE ( test code = 3576) 11/18/2024 Lab Interpretation (test cod e = 70759-1) [facility] [id number] 06:14:00* Test Item Value Reference Range Interpretation Comme nts POCT PREG (test code = 1605) Negative On board controls acceptable with C Line (test code = 3574) Yes POCT PREG LOT # (test code = 3575) [id number] POCT PREG TEST DATE ( test code = 3576) 11/18/2024 Lab Interpretation (test cod e = 68076-3) [facility] [id number] 06:14:00* Test Item Value Reference Range Interpretation Comme nts POCT PREG (test code = 1605) Negative On board controls acceptable with C Line (test code = 3574) Yes POCT PREG LOT # (test code = 3575) [id number] POCT PREG TEST DATE ( test code = 3576) 11/18/2024 Lab Interpretation (test cod e = 97122-7) [facility] [id number] 06:14:00* Test Item Value Reference Range Interpretation Comme nts POCT PREG (test code = 1605) Negative On board controls acceptable with C Line (test code = 3574) Yes POCT PREG LOT # (test code = 3575) [id number] POCT PREG TEST DATE ( test code = 3576) 11/18/2024 Lab Interpretation (test cod e = 19918-4) [facility] [id number] 06:14:00* Test Item Value Reference Range Interpretation Comme nts POCT PREG (test code = 1605) Negative On board controls acceptable with C Line (test code = 3574) Yes POCT PREG LOT # (test code = 3575) [id number] POCT PREG TEST DATE ( test code = 3576) 11/18/2024 Lab Interpretation (test cod e = 00386-4) [facility] [id number] 06:14:00* Test Item Value Reference Range Interpretation Comme nts POCT PREG (test code = 1605) Negative On board controls acceptable with C Line (test code = 3574) Yes POCT PREG LOT # (test code = 3575) [id number] POCT PREG TEST DATE ( test code = 3576) 11/18/2024 Lab Interpretation (test cod e = 17000-9) [facility] [id number] 06:14:00* Test Item Value Reference Range Interpretation Comme nts POCT PREG (test code = 1605) Negative On board controls acceptable with C Line (test code = 3574) Yes POCT PREG LOT # (test code = 3575) [id number] POCT PREG TEST DATE ( test code = 3576) 11/18/2024 Lab Interpretation (test cod e = 96051-0) [facility] [id number] 06:14:00* Test Item Value Reference Range Interpretation Comme nts POCT PREG (test code = 1605) Negative On board controls acceptable with C Line (test code = 3574) Yes POCT PREG LOT # (test code = 3575) [id number] POCT PREG TEST DATE ( test code = 3576) 11/18/2024 Lab Interpretation (test cod e = 39594-7) [facility] [id number] 06:14:00* Test Item Value Reference Range Interpretation Comme nts POCT PREG (test code = 1605) Negative On board controls acceptable with C Line (test code = 3574) Yes POCT PREG LOT # (test code = 3575) [id number] POCT PREG TEST DATE ( test code = 3576) 11/18/2024 Lab Interpretation (test cod e = 55599-8) [facility] 04:48:14* Test Item Value Reference Range Interpretation Comme nts FREE T3 (test code = 4273) 2.4 PG/ML 2.2-4.2 FREE T4 (THYROXINE)2023-09-07 04:48:14* Test Item Value Reference Range Interpretation Comme nts FREE T4 (THYROXINE) (test code = 2823) 1.28 NG/DL 0.80-1.90 UNLESS OTHERWISE INDICATED, ALL TESTING PERFORMED AT [facility] [address] [place] [address] MANAGER GOLF: TOM MORALES M.D. CLIA NUMBER [id number] [facility] [place]. [id number] [facility] 00:00:00* Test Item Value Reference Range Interpretation Comme nts FREE T3 (test code = 4273) 2.4 PG/ML Georgi [facility] T4 (THYROXINE)2023-09-07 00:00:00* Test Item Value Reference Range Interpretation Comme nts FREE T4 (THYROXINE) (test co de = 2823) 1.28 NG/DL Georgi [facility] 00:00:00* Test Item Value Reference Range Interpretation Comme nts FREE T3 (test code = 4273) 2.4 PG/ML [facility] T4 (THYROXINE)2023-09-07 00:00:00* Test Item Value [...] co de = 2823) 1.28 NG/DL YUNG [id number] 09:15:10* Test Item Value Reference Range Interpretation Comme nts TSH, THIRD GENERATION (test code = 2821) 0.272 UIU/ML 0.400-4.100 L UNLESS OTHERWISE INDICATED, ALL TESTING PERFORMED AT [facility] [address] [place] [address] MANAGER GOLF: TOM MORALES M.D. CLIA NUMBER [id number] [facility] [place]. [id number] TSH, THIRD [id number] 00:00:00* Test Item Value Reference Range Interpretation Comme nts TSH, THIRD GENERATION (test code = 2821) 0.272 UIU/ML YUNG Pepper2024-01-24 00:00:00* Test Item Value Reference Range Interpretation Comme nts TSH, THIRD GENERATION (test code = 2821) 0.272 UIU/ML YUNG Pepper2024-01-24 00:00:00* Test Item Value Reference Range Interpretation Comme nts TSH, THIRD GENERATION (test code = 2821) 0.272 UIU/ML YUNG Pepper2023-10-26 04:01:26* Test Item Value Reference Range Interpretation Comme nts TSH, THIRD GENERATION (test code = 2821) 0.960 UIU/ML 0.400-4.100 FREE 04:01:26* Test Item Value Reference Range Interpretation Comme nts FREE T3 (test code = 4273) 2.8 PG/ML 2.2-4.2 FREE T4 (THYROXINE)2023-06-07 04:01:26* Test Item Value Reference Range Interpretation Comme nts FREE T4 (THYROXINE) (test co de = 2823) 1.51 NG/DL 0.80-1.90 HIGH SENSITIVITY [id number] 04:01:09* Test Item Value Reference Range Interpretation Comme nts HIGH SENSITIVITY CRP (test code = 71346) 10.1 MG/L SEE BELOW H hsCRP LEVEL RELATIVE RISK <1.0 MG/L LOW 1.0-3.0 MG/L AVERAGE >3.0 MG/L HIGH (from Philomena TNatalieA. et al. Circulation 2003; 107:499) CBC W/AUTO DIFF WITH [id number] 02:38:59* Test Item Value Reference Range Interpretation [...] 0.00-0.10 ABS NUCLEATED RBCS (test code = 38183) 0.00 K/UL 0.00-0.11 UNLESS OTHER JENSEN INDICATED, ALL TESTING PERFORMED AT [facility] [address] [place] [address] MANAGER GOLF: TOM MORALES M.D. [place] NUMBER [id number] [facility] [place]. [id number] TSH, THIRD [id number] 00:00:00* Test Item Value Reference Range Interpretation Comme nts TSH, THIRD GENERATION (test code = 2821) 0.960 UIU/ML Georgi DelaneyFREE [id number] 00:00:00* Test Item Value Reference Range Interpretation Comme nts FREE T3 (test code = 4273) 2.8 PG/ML [facility] T4 (THYROXINE)2023-06-07 00:00:00* Test Item Value Reference Range Interpretation Comme nts FREE T4 (THYROXINE) (test co de = 2823) 1.51 NG/DL Georgi DelaneyHIGH SENSITIVITY [id number] 00:00:00* Test Item Value Reference Range Interpretation Comme nts HIGH SENSITIVITY CRP (test c ode = 13617) 10.1 MG/L Georgi DelaneyCBC W/AUTO [id number] 00:00:00* Test Item Value Reference Range Interpretation [...] ABS NUCLEATED RBCS (test cod e = 74310) 0.00 K/UL Georgi DelaneyTSH, THIRD [id number] 00:00:00* Test Item Value Reference Range Interpretation Comme nts TSH, THIRD GENERATION (test code = 2821) 0.960 UIU/ML Georgi DelaneyFREE [id number] 00:00:00* Test Item Value Reference Range Interpretation Comme nts FREE T3 (test code = 4273) 2.8 PG/ML [facility] T4 (THYROXINE)2023-06-07 00:00:00* Test Item Value Reference Range Interpretation Comme nts FREE T4 (THYROXINE) (test co de = 2823) 1.51 NG/DL Georgi DelaneyHIGH SENSITIVITY [id number] 00:00:00* Test Item Value Reference Range Interpretation Comme nts HIGH SENSITIVITY CRP (test c ode = 55913) 10.1 MG/L Georgi DelaneyCBC W/AUTO [id number] 00:00:00* Test Item Value Reference Range Interpretation [...] ABS NUCLEATED RBCS (test cod e = 67539) 0.00 K/UL Georgi DelaneyTSH, THIRD [id number] 00:00:00* Test Item Value Reference Range Interpretation Comme nts TSH, THIRD GENERATION (test code = 2821) 0.960 UIU/ML Georgi Clark [id number] 00:00:00* Test Item Value Reference Range Interpretation Comme nts FREE T3 (test code = 4273) 2.8 PG/ML Georgi Donahue T4 (THYROXINE)2023-06-07 00:00:00* Test Item Value Reference Range Interpretation Comme nts FREE T4 (THYROXINE) (test co de = 2823) 1.51 NG/DL Georgi DelaneyHIGH SENSITIVITY [id number] 00:00:00* Test Item Value Reference Range Interpretation Comme nts HIGH SENSITIVITY CRP (test c ode = 21987) 10.1 MG/L Georgi DelaneyCBC W/AUTO [id number] 00:00:00* Test Item Value Reference Range Interpretation [...] ABS NUCLEATED RBCS (test cod e = 82590) 0.00 K/UL [facility] T4 [id number] 06:33:47* Test Item Value Reference Range Interpretation Comme nts TSH, THIRD GENERATION (test code = 2821) 0.381 UIU/ML 0.400-4.100 L FREE T4 (THYROXINE) (test co de = 2823) 1.49 NG/DL 0.80-1.90 T3 [id number] 06:33:47* Test Item Value Reference Range Interpretation Comme nts T3 TOTAL (test code = 2818) 98 NG/DL 80-200 HIGH SENSITIVITY [id number] 04:12:17* Test Item Value Reference Range Interpretation Comme nts HIGH SENSITIVITY CRP (test code = 06429) 3.5 MG/L SEE BELOW H hsCRP LEVEL RELATIVE RISK <1.0 MG/L LOW 1.0-3.0 MG/L AVERAGE >3.0 MG/L HIGH (from Philomena TNatalieA. et al. Circulation 2003; 107:499) UNLESS OTHERWISE INDICATED, ALL TESTING PERFORMED AT [facility] [address] [place] [address] MANAGER GOLF: TOM MORALES M.D. CLIA NUMBER [id number] [facility] [place]. [id number] CBC W/AUTO DIFF WITH [id number] 01:43:18* Test Item Value Reference Range Interpretation [...] 0.00-0.10 ABS NUCLEATED RBCS (test code = 92125) 0.00 K/UL 0.00-0.11 CBC W/AUTO [id number] 00:00:00* Test Item Value Reference Range Interpretation [...] ABS NUCLEATED RBCS (test cod e = 37415) 0.00 K/UL Georgi DelaneyTSH + FREE T4 [id number] 00:00:00* Test Item Value Reference Range Interpretation Comme nts TSH, THIRD GENERATION (test code = 2821) 0.381 UIU/ML FREE T4 (THYROXINE) (test co de = 2823) 1.49 NG/DL Georgi Johnson RhettT3 [id number] 00:00:00* Test Item Value Reference Range Interpretation Comme nts T3 TOTAL (test code = 2818) 98 NG/DL Georgi DelaneyHIGH SENSITIVITY [id number] 00:00:00* Test Item Value Reference Range Interpretation Comme nts HIGH SENSITIVITY CRP (test c ode = 60473) 3.5 MG/L Georgi DelaneyCBC W/AUTO [id number] 00:00:00* Test Item Value Reference Range Interpretation [...] ABS NUCLEATED RBCS (test cod e = 43466) 0.00 K/UL Georgi DelaneyTSH + FREE T4 [id number] 00:00:00* Test Item Value Reference Range Interpretation Comme nts TSH, THIRD GENERATION (test code = 2821) 0.381 UIU/ML FREE T4 (THYROXINE) (test co de = 2823) 1.49 NG/DL Georgi DelaneyT3 [id number] 00:00:00* Test Item Value Reference Range Interpretation Comme nts T3 TOTAL (test code = 2818) 98 NG/DL Georgi DelaneyHIGH SENSITIVITY [id number] 00:00:00* Test Item Value Reference Range Interpretation Comme nts HIGH SENSITIVITY CRP (test c ode = 52202) 3.5 MG/L Georgi DelaneyCBC W/AUTO [id number] 00:00:00* Test Item Value Reference Range Interpretation [...] ABS NUCLEATED RBCS (test cod e = 70750) 0.00 K/UL Georgi TatumH + FREE T4 [id number] 00:00:00* Test Item Value Reference Range Interpretation Comme nts TSH, THIRD GENERATION (test code = 2821) 0.381 UIU/ML FREE T4 (THYROXINE) (test co de = 2823) 1.49 NG/DL Georgi DelaneyT3 [id number] 00:00:00* Test Item Value Reference Range Interpretation Comme nts T3 TOTAL (test code = 2818) 98 NG/DL Georgi DelaneyHIGH SENSITIVITY [id number] 00:00:00* Test Item Value Reference Range Interpretation Commdwaine english HIGH SENSITIVITY CRP (test c ode = 72202) 3.5 MG/L YUNG Pepper [id number] 12:02:55* Test Item Value Reference Range Interpretation Commdwaine DANIELLE, THIRD GENERATION (test code = 2821) 0.678 UIU/ML 0.400-4.100 UNLESS OTHERWISE INDICATED, ALL TESTING PERFORMED AT [facility] [address] [place] [address] MANAGER GOLF: TOM MORALES M.D. CLIA NUMBER [id number] [place]. [id number] TSH, THIRD [id number] 00:00:00* Test Item Value Reference Range Interpretation Commdwaine DANIELLE THIRD GENERATION (test code = 2821) 0.678 UIU/ML YUNG Pepper [id number] 00:00:00* Test Item Value Reference Range Interpretation Commdwaine DANIELLE THIRD GENERATION (test code = 2821) 0.678 UIU/ML YUNG Pepper [id number] 00:00:00* Test Item Value Reference Range Interpretation Commdwaine DANIELLE THIRD GENERATION (test code = 2821) 0.678 UIU/ML Georgi DelaneyHEMOGLOBIN [id number] 03:11:34* Test Item Value Reference Range Interpretation Commdwaine english HEMOGLOBIN A1c (test code = 34853) 5.9 % 4.2-5.6 H [employer] GUIDELINES FOR HGB A1C: [...] INDICATED, ALL TESTING PERFORMED AT [facility] [address] [place] [address] MANAGER GOLF: TOM MORALES M.D. CLIA NUMBER [id number] [place]. [id number] HEMOGLOBIN [id number] 00:00:00* Test Item Value Reference Range Interpretation Comme amador HEMOGLOBIN A1c (test code = 40008) 5.9 % Georgi DelaneyHEMOGLOBIN [id number] 00:00:00* Test Item Value Reference Range Interpretation Comme amador HEMOGLOBIN A1c (test code = 39306) 5.9 % Georgi DelaneyHEMOGLOBIN [id number] 00:00:00* Test Item Value Reference Range Interpretation Comme amador HEMOGLOBIN A1c (test code = 60372) 5.9 % Georgi TatumH, THIRD [id number] 00:00:00* Test Item Value Reference Range Interpretation Comme amador TSH, THIRD GENERATION (test code = 2821) 0.753 UIU/ML Georgi TatumH, THIRD [id number] 00:00:00* Test Item Value Reference Range Interpretation Comme nts TSH, THIRD GENERATION (test code = 2821) 0.753 UIU/ML Georgi Matthews, THIRD [id number] 00:00:00* Test Item Value Reference Range Interpretation Comme nts TSH, THIRD GENERATION (test code = 2821) 0.753 UIU/ML Georgi DelaneyCOMPREHENSIVE METABOLIC [id number] 07:39:28* Test Item Value Reference Range Interpretation Comme amador GLUCOSE (test code = 2217) 112 MG/DL 70-99 H BUN (test code = 2208) 14 MG/DL 6-20 CREATININE (test code = 2214) 0.79 MG/DL 0.60-1.30 eGFR (2020 CKD-EPI) (test code = 61051) 101 ML/MIN/1.73 >60 CALC BUN/CREAT (test code [...] 5-40 UNLESS OTHERWISE INDICATED, ALL [facility] PERFORMED [facility] [address] [place] [address] MANAGER GOLF: EDVIN BENSON M.D. CLIA NUMBER [id number] [facility] [place]. [id number] HEMOGLOBIN [id number] 04:57:47* Test Item Value Reference Range Interpretation Comme [facility] HEMOGLOBIN A1c (test code = 95814) 6.1 % 4.2-5.6 H HEMOGLOBIN [id number] 00:00:00* Test Item Value Reference Range Interpretation Comme [facility] HEMOGLOBIN A1c (test code = 89696) 6.1 % Georgi DelaneyCOMPREHENSIVE METABOLIC [id number] 00:00:00* Test Item Value Reference Range Interpretation Comme nts GLUCOSE (test code = 7) 112 MG/DL BUN (test code = 8) 14 MG/DL CREATININE (test code = 2214) 0.79 MG/DL eGFR (2020 CKD-EPI) (test code = 42908) 101 ML/MIN/1.73 CALC BUN/CREAT (test code = [...] code = 2219) 24 U/L Georgi Johnson AustinHEMOGLOBIN [id number] 00:00:00* Test Item Value Reference Range Interpretation Comme nts HEMOGLOBIN A1c (test code = 23706) 6.1 % Georgi Johnson AustinCOMPREHENSIVE METABOLIC [id number] 00:00:00* Test Item Value Reference Range Interpretation Comme nts GLUCOSE (test code = 2217) 112 MG/DL BUN (test code = 2208) 14 MG/DL CREATININE (test code = 2214) 0.79 MG/DL eGFR (2020 CKD-EPI) (test code = 80585) 101 ML/MIN/1.73 CALC BUN/CREAT (test code = [...] code = 2219) 24 U/L Georgi Johnson AustinHEMOGLOBIN [id number] 00:00:00* Test Item Value Reference Range Interpretation Comme nts HEMOGLOBIN A1c (test code = 59282) 6.1 % Georgi Johnson AustinCOMPREHENSIVE METABOLIC [id number] 00:00:00* Test Item Value Reference Range Interpretation Comme nts GLUCOSE (test code = 2217) 112 MG/DL BUN (test code = 2208) 14 MG/DL CREATININE (test code = 2214) 0.79 MG/DL eGFR (2020 CKD-EPI) (test code = 58617) 101 ML/MIN/1.73 CALC BUN/CREAT (test code = 2235) 18 RATIO SODIUM (test code = 2231) 140 MEQ/L POTASSIUM (test code = 2228) 3.8 MEQ/L CHLORIDE (test code = 2215) 101 MEQ/L CARBON DIOXIDE (test code = 2206) 24 MEQ/L CALCIUM (test code = 2209) 9.7 MG/DL PROTEIN, TOTAL (test code = 222) 6.7 G/DL ALBUMIN (test code = 220) 4.1 G/DL CALC GLOBULIN (test code = 2240) 2.6 G/DL CALC A/G RATIO (test code = 2234) 1.6 RATIO BILIRUBIN, TOTAL (test code = 2207) <0.2 MG/DL ALKALINE PHOSPHATASE (test code = 4) 80 U/L AST (test code = 2217) 22 U/L ALT (test code = 2219) 24 U/L Georgi Matthews, THIRD [id number] 03:25:48* Test Item Value Reference Range Interpretation Comme nts TSH, THIRD GENERATION (test code = 2821) 2.310 UIU/ML 0.400-4.100 UNLESS OTHERWISE INDICATED, ALL TESTING PERFORMED [facility] [address] [place] [address] MANAGER GOLF: EDVIN BENSON M.D. CLIA NUMBER [id number] [place]. [id number] TSH, THIRD [id number] 00:00:00* Test Item Value Reference Range Interpretation Comme nts TSH, THIRD GENERATION (test code = 2821) 2.310 UIU/ML Georgi Matthews, THIRD [id number] 00:00:00* Test Item Value Reference Range Interpretation Comme nts TSH, THIRD GENERATION (test code = 2821) 2.310 UIU/ML Georgi Matthews, THIRD [id number] 00:00:00* Test Item Value Reference Range Interpretation Comme nts TSH, THIRD GENERATION (test code = 2821) 2.310 UIU/ML Georgi Matthews, THIRD [id number] 00:00:00* Test Item Value Reference Range Interpretation Comme nts TSH, THIRD GENERATION (test code = 2821) 2.310 UIU/ML 79-[id number] 00:00:00* Test Item Value Reference Range Interpretation Comme nts 17-HYDROXYPROGESTERONE (test code = 4304) 45 ng/dL Georgi Johnson [id number]-[id number] 00:00:00* Test Item Value Reference Range Interpretation Comme nts 17-HYDROXYPROGESTERONE (test code = 4304) 45 ng/dL Georgi Johnson [id number]-[id number] 00:00:00* Test Item Value Reference Range Interpretation Comme nts 17-HYDROXYPROGESTERONE (test code = 4304) 45 ng/dL 51-[id number] 00:00:00* Test Item Value Reference Range Interpretation Comme nts 17-HYDROXYPROGESTERONE (test code = 4304) 45 ng/dL 40-[id number] 00:00:00* Test Item Value Reference Range Interpretation Comme nts 17-HYDROXYPROGESTERONE (test code = 4304) 45 ng/dL Georgi Johnson AustinFSH + LH [id number] 00:00:00* Test Item Value Reference Range Interpretation Comme nts FOLLICLE STIM HORMONE (test code = 2700) 4.3 IU/L LUTEINIZING HORMONE (test co de = 2776) 15.6 IU/L Georgi Johnson [id number] 00:00:00* Test Item Value Reference Range Interpretation Comme nts PROLACTIN (test code = 2800) 17.7 NG/ML Georgi DelaneyTSH, THIRD [id number] 00:00:00* Test Item Value Reference Range Interpretation Comme nts TSH, THIRD GENERATION (test code = 2821) 1.790 UIU/ML Georgi Johnson AustinFSH + LH [id number] 00:00:00* Test Item Value Reference Range Interpretation Comme nts FOLLICLE STIM HORMONE (test code = 2700) 4.3 IU/L LUTEINIZING HORMONE (test co de = 2776) 15.6 IU/L Georgi Johnson [id number] 00:00:00* Test Item Value Reference Range Interpretation Comme nts PROLACTIN (test code = 2800) 17.7 NG/ML Georgi Matthews, THIRD [id number] 00:00:00* Test Item Value Reference Range Interpretation Comme nts TSH, THIRD GENERATION (test code = 2821) 1.790 UIU/ML Georgi CastellanoH + LH [id number] 00:00:00* Test Item Value Reference Range Interpretation Comme nts FOLLICLE STIM HORMONE (test code = 2700) 4.3 IU/L LUTEINIZING HORMONE (test co de = 2776) 15.6 IU/L [id number] 00:00:00* Test Item Value Reference Range Interpretation Comme nts PROLACTIN (test code = 2800) 17.7 NG/ML FSH + LH [id number] 00:00:00* Test Item Value Reference Range Interpretation Comme nts FOLLICLE STIM HORMONE (test code = 2700) 4.3 IU/L LUTEINIZING HORMONE (test co de = 2776) 15.6 IU/L Georgi Matthews, THIRD [id number] 00:00:00* Test Item Value Reference Range Interpretation Comme nts TSH, THIRD GENERATION (test code = 2821) 1.790 UIU/ML FSH + LH [id number] 00:00:00* Test Item Value Reference Range Interpretation Comme nts FOLLICLE STIM HORMONE (test code = 2700) 4.3 IU/L LUTEINIZING HORMONE (test co de = 2776) 15.6 IU/L [id number] 00:00:00* Test Item Value Reference Range Interpretation Comme nts PROLACTIN (test code = 2800) 17.7 NG/ML TSH, THIRD [id number] 00:00:00* Test Item Value Reference Range Interpretation Comme nts TSH, THIRD GENERATION (test code = 2821) 1.790 UIU/ML [id number] 00:00:00* Test Item Value Reference Range Interpretation Comme nts PROLACTIN (test code = 2800) 17.7 NG/ML Georgi Matthews, THIRD [id number] 00:00:00* Test Item Value Reference Range Interpretation Comme nts TSH, THIRD GENERATION (test code = 2821) 1.790 UIU/ML Georgi Matthews THIRD [id number] 04:06:28* Test Item Value Reference Range Interpretation Comme nts TSH, THIRD GENERATION (test code = 2821) 4.000 UIU/ML 0.400-4.100 UNLESS OTHERWISE INDICATED, ALL TESTING PERFORMED [employer] [address] [place] [address] MANAGER GOLF: EDVIN BENSON M.D. CLIA NUMBER [id number] [place]. [id number] TSH, THIRD [id number] 00:00:00* Test Item Value Reference Range Interpretation Comme nts TSH, THIRD GENERATION (test code = 2821) 4.000 UIU/ML Georgi Matthews THIRD [id number] 00:00:00* Test Item Value Reference Range Interpretation Comme nts TSH, THIRD GENERATION (test code = 2821) 4.000 UIU/ML Georgi Matthews, THIRD [id number] 00:00:00* Test Item Value Reference Range Interpretation Comme nts TSH, THIRD GENERATION (test code = 2821) 4.000 UIU/ML Georgi Matthews, THIRD [id number] 00:00:00* Test Item Value Reference Range Interpretation Comme nts TSH, THIRD GENERATION (test code = 2821) 4.000 UIU/ML TSH, THIRD [id number] 00:00:00* Test Item Value Reference Range Interpretation Comme nts TSH, THIRD GENERATION (test code = 2821) 4.000 UIU/ML TSH, THIRD [id number] 00:00:00* Test Item Value Reference Range Interpretation Comme nts TSH, THIRD GENERATION (test code = 2821) 4.000 UIU/ML TSH, THIRD [id number] 09:09:54* Test Item Value Reference Range Interpretation Comme nts TSH, THIRD GENERATION (test code = 2821) 9.840 UIU/ML 0.400-4.100 H UNLESS OTHERWISE INDICATED, ALL TESTING PERFORMED [employer] [address] [place] [id number] MANAGER GOLF: EDVIN BENSON M.D. CLIA NUMBER [id number] [place]. [id number] 00:00:00* Test Item Value Reference Range Interpretation Comme nts TSH, THIRD GENERATION (test code = 2821) 9.840 UIU/ML Georgi Johnson [id number] 00:00:00* Test Item Value Reference Range Interpretation Comme nts TSH, THIRD GENERATION (test code = 2821) 9.840 UIU/ML Georgi Johnson [id number] 00:00:00* Test Item Value Reference Range Interpretation Comme nts TSH, THIRD GENERATION (test code = 2821) 9.840 UIU/ML Georgi Johnson [id number] 00:00:00* Test Item Value Reference Range Interpretation Comme nts TSH, THIRD GENERATION (test code = 2821) 9.840 UIU/ML [id number] 00:00:00* Test Item Value Reference Range Interpretation Comme nts TSH, THIRD GENERATION (test code = 2821) 9.840 UIU/ML [id number] 00:00:00* Test Item Value Reference Range Interpretation Comme nts TSH, THIRD GENERATION (test code = 2821) 9.840 UIU/ML [id number] 00:00:00* Test Item Value Reference Range Interpretation Comme nts TSH, THIRD GENERATION (test code = 2821) 9.840 UIU/ML [id number] 00:00:00* Test Item Value Reference Range Interpretation Comme nts TSH, THIRD GENERATION (test code = 2821) 9.840 UIU/ML TSH, THIRD [id number] 05:03:02* Test Item Value Reference Range Interpretation Comme nts TSH, THIRD GENERATION (test code = 2821) 7.050 UIU/ML 0.400-4.100 H UNLESS OTHERWISE INDICATED, ALL TESTING PERFORMED [facility] [address] [place] [address] MANAGER GOLF: EDVIN BENSON M.D. CLIA NUMBER [id number] [facility] [place]. [id number] 00:00:00* Test Item Value Reference Range Interpretation Comme nts TSH, THIRD GENERATION (test code = 2821) 7.050 UIU/ML Georgi Johnson [id number] 00:00:00* Test Item Value Reference Range Interpretation Comme nts TSH, THIRD GENERATION (test code = 2821) 7.050 UIU/ML Georgi [id number] 00:00:00* Test Item Value Reference Range Interpretation Comme nts TSH, THIRD GENERATION (test code = 2821) 7.050 UIU/ML Georgi [id number] 00:00:00* Test Item Value Reference Range Interpretation Comme nts TSH, THIRD GENERATION (test code = 2821) 7.050 UIU/ML [id number] 00:00:00* Test Item Value Reference Range Interpretation Comme nts TSH, THIRD GENERATION (test code = 2821) 7.050 UIU/ML [id number] 00:00:00* Test Item Value Reference Range Interpretation Comme nts TSH, THIRD GENERATION (test code = 2821) 7.050 UIU/ML [id number] 00:00:00* Test Item Value Reference Range Interpretation Comme nts TSH, THIRD GENERATION (test code = 2821) 7.050 UIU/ML [id number] 00:00:00* Test Item Value Reference Range Interpretation Comme nts TSH, THIRD GENERATION (test code = 2821) 7.050 UIU/ML CBC W/AUTO DIFF WITH [id number] 03:06:39* Test Item Value Reference Range Interpretation [...] 0.00-0.10 ABS NUCLEATED RBCS (test code = 18125) 0.00 K/UL 0.00-0.11 UNLESS OTHER JENSEN INDICATED, ALL TESTING PERFORMED [facility] [address] [place] [address] MANAGER GOLF: EDVIN BENSON M.D. CLIA NUMBER [id number] [facility] [place]. [id number] CBC W/AUTO [id number] 00:00:00* Test Item Value Reference Range Interpretation [...] ABS NUCLEATED RBCS (test cod e = 71325) 0.00 K/UL Georgi Johnson [facility] W/AUTO [id number] 00:00:00* Test Item Value Reference Range Interpretation [...] ABS NUCLEATED RBCS (test cod e = 30677) 0.00 K/UL Georgi DelaneyCBC W/AUTO [id number] 00:00:00* Test Item Value Reference Range Interpretation [...] ABS NUCLEATED RBCS (test cod e = 95856) 0.00 K/UL CBC W/AUTO [id number] 00:00:00* Test Item Value Reference Range Interpretation [...] ABS NUCLEATED RBCS (test cod e = 91673) 0.00 K/UL CBC W/AUTO [id number] 00:00:00* Test Item Value Reference Range Interpretation [...] ABS NUCLEATED RBCS (test cod e = 80955) 0.00 K/UL Georgi DelaneyCBC W/AUTO [id number] 00:00:00* Test Item Value Reference Range Interpretation [...] ABS NUCLEATED RBCS (test cod e = 73247) 0.00 K/UL CBC W/AUTO [id number] 00:00:00* Test Item Value Reference Range Interpretation [...] ABS NUCLEATED RBCS (test cod e = 85896) 0.00 K/UL CBC W/AUTO [id number] 00:00:00* Test Item Value Reference Range Interpretation [...] ABS NUCLEATED RBCS (test cod e = 34537) 0.00 K/UL CBC W/AUTO DIFF WITH [id number] 10:01:09* Test Item Value Reference Range Interpretation [...] 0.00-0.10 ABS NUCLEATED RBCS (test code = 02534) TEST NOT PERFORMED K/UL 0.00-0.11 COMMENTS (test code = 1016) TEST NOT PERFORMED CBC W/AUTO [id number] 00:00:00* Test Item Value Reference Range Interpretation [...] K/UL ABS NUCLEATED RBCS (test code = 65292) TEST NOT PERFORMED K/UL COMMENTS (test code = 1016) TEST NOT PERFORMED [facility] [id number] 00:00:00* Test Item Value Reference Range Interpretation [...] K/UL ABS NUCLEATED RBCS (test code = 24474) TEST NOT PERFORMED K/UL COMMENTS (test code = 1016) TEST NOT PERFORMED [facility] W/AUTO [id number] 00:00:00* Test Item Value Reference Range Interpretation [...] K/UL ABS NUCLEATED RBCS (test code = 88612) TEST NOT PERFORMED K/UL COMMENTS (test code = 1016) TEST NOT PERFORMED CBC W/AUTO [id number] 00:00:00* Test Item Value Reference Range Interpretation [...] K/UL ABS NUCLEATED RBCS (test code = 52793) TEST NOT PERFORMED K/UL COMMENTS (test code = 1016) TEST NOT PERFORMED Georgi Jonhson [facility] W/AUTO [id number] 00:00:00* Test Item Value Reference Range Interpretation [...] K/UL ABS NUCLEATED RBCS (test code = 76654) TEST NOT PERFORMED K/UL COMMENTS (test code = 1016) TEST NOT PERFORMED CBC W/AUTO [id number] 00:00:00* Test Item Value Reference Range Interpretation [...] K/UL ABS NUCLEATED RBCS (test code = 36558) TEST NOT PERFORMED K/UL COMMENTS (test code = 1016) TEST NOT PERFORMED CBC W/AUTO [id number] 00:00:00* Test Item Value Reference Range Interpretation [...] K/UL ABS NUCLEATED RBCS (test code = 68682) TEST NOT PERFORMED K/UL COMMENTS (test code = 1016) TEST NOT PERFORMED CBC W/AUTO [id number] 00:00:00* Test Item Value Reference Range Interpretation [...] K/UL ABS NUCLEATED RBCS (test code = 65497) TEST NOT PERFORMED K/UL COMMENTS (test code = 1016) TEST NOT PERFORMED TSH, THIRD [id number] 06:29:33* Test Item Value Reference Range Interpretation Comme nts TSH, THIRD GENERATION (test code = 2821) 7.090 UIU/ML 0.400-4.100 H UNLESS OTHERWISE INDICATED, ALL TESTING PERFORMED [facility] [address] [place] [address] MANAGER GOLF: EDVIN BENSON M.D. CLIA NUMBER [id number] [facility] [place]. [id number] LIPID [id number] 04:58:53* Test Item Value Reference Range Interpretation [...] SPECIMENS. FOR MOREINFORMATION, SEE CLIENT ANNOUNCEMENT AT [email or web address] RISK RATIO LDL/HDL (test code = 2237) 3.57 RATIO <3.22 H COMPREHENSIVE METABOLIC [id number] 04:58:53* Test Item Value Reference Range Interpretation Comme nts GLUCOSE (test code = 2216) 85 MG/DL 70-99 BUN (test code = 2207) 12 MG/DL 6-20 CREATININE (test code = 2213) 0.59 MG/DL 0.60-1.30 L eGFR (2020 CKD-EPI) (test code = ) 123 ML/MIN/1.73 >60 CALC BUN/CREAT (test code = 2234) 20 RATIO 6-28 SODIUM (test code = 2230) 141 MEQ/L 133-146 POTASSIUM (test code = 2227) 4.5 MEQ/L 3.5-5.4 CHLORIDE (test code = 2214) 103 MEQ/L 95-107 CARBON DIOXIDE (test code = 2205) 25 MEQ/L 19-31 CALCIUM (test code = 2208) 9.3 MG/DL 8.5-10.5 PROTEIN, TOTAL (test code [...] code = 2219) 16 U/L 5-40 LIPID [id number] 00:00:00* Test Item Value Reference Range Interpretation Comme nts CHOLESTEROL (test code = 2210) 235 MG/DL TRIGLYCERIDES (test code = 2232) 127 MG/DL HDL CHOLESTEROL (test code = 2220) 46 MG/DL CALC LDL CHOL (test code = 2237) 164 MG/DL RISK RATIO LDL/HDL (test cod e = 2238) 3.57 RATIO Georgi DelaneyCOMPREHENSIVE METABOLIC [id number] 00:00:00* Test Item Value Reference Range Interpretation Comme nts GLUCOSE (test code = 2217) 85 MG/DL BUN (test code = 2208) 12 MG/DL CREATININE (test code = 2214) 0.59 MG/DL eGFR (2020 CKD-EPI) (test code = 68881) 123 ML/MIN/1.73 CALC BUN/CREAT (test code = [...] (test code = 2219) 16 U/L Georgi [id number] 00:00:00* Test Item Value Reference Range Interpretation Comme nts TSH, THIRD GENERATION (test code = 2821) 7.090 UIU/ML Georgi DelaneyLIPID [id number] 00:00:00* Test Item Value Reference Range Interpretation Comme nts CHOLESTEROL (test code = 2210) 235 MG/DL TRIGLYCERIDES (test code = 2232) 127 MG/DL HDL CHOLESTEROL (test code = 2220) 46 MG/DL CALC LDL CHOL (test code = 2237) 164 MG/DL RISK RATIO LDL/HDL (test cod e = 2238) 3.57 RATIO Georgi DelaneyCOMPREHENSIVE METABOLIC [id number] 00:00:00* Test Item Value Reference Range Interpretation Comme nts GLUCOSE (test code = 2217) 85 MG/DL BUN (test code = 2208) 12 MG/DL CREATININE (test code = 2214) 0.59 MG/DL eGFR (2020 CKD-EPI) (test code = 90981) 123 ML/MIN/1.73 CALC BUN/CREAT (test code = [...] (test code = 2219) 16 U/L Georgi [id number] 00:00:00* Test Item Value Reference Range Interpretation Comme nts TSH, THIRD GENERATION (test code = 2821) 7.090 UIU/ML Georgi Johnson AustinLIPID [id number] 00:00:00* Test Item Value Reference Range Interpretation Comme nts CHOLESTEROL (test code = 2210) 235 MG/DL TRIGLYCERIDES (test code = 2232) 127 MG/DL HDL CHOLESTEROL (test code = 2220) 46 MG/DL CALC LDL CHOL (test code = 2237) 164 MG/DL RISK RATIO LDL/HDL (test cod e = 2238) 3.57 RATIO COMPREHENSIVE METABOLIC [id number] 00:00:00* Test Item Value Reference Range Interpretation Comme nts GLUCOSE (test code = 2217) 85 MG/DL BUN (test code = 2208) 12 MG/DL CREATININE (test code = 2214) 0.59 MG/DL eGFR (2020 CKD-EPI) (test code = 30933) 123 ML/MIN/1.73 CALC BUN/CREAT (test code = [...] ALT (test code = 2219) 16 U/L [id number] 00:00:00* Test Item Value Reference Range Interpretation Comme nts TSH, THIRD GENERATION (test code = 2821) 7.090 UIU/ML LIPID [id number] 00:00:00* Test Item Value Reference Range Interpretation Comme nts CHOLESTEROL (test code = 2210) 235 MG/DL TRIGLYCERIDES (test code = 2232) 127 MG/DL HDL CHOLESTEROL (test code = 2220) 46 MG/DL CALC LDL CHOL (test code = 2237) 164 MG/DL RISK RATIO LDL/HDL (test cod e = 2238) 3.57 RATIO COMPREHENSIVE METABOLIC [id number] 00:00:00* Test Item Value Reference Range Interpretation Comme nts GLUCOSE (test code = 2217) 85 MG/DL BUN (test code = 2208) 12 MG/DL CREATININE (test code = 2214) 0.59 MG/DL eGFR (2020 CKD-EPI) (test code = 90082) 123 ML/MIN/1.73 CALC BUN/CREAT (test code = [...] ALT (test code = 2219) 16 U/L [id number] 00:00:00* Test Item Value Reference Range Interpretation Comme nts TSH, THIRD GENERATION (test code = 2821) 7.090 UIU/ML LIPID [id number] 00:00:00* Test Item Value Reference Range Interpretation Comme nts CHOLESTEROL (test code = 2210) 235 MG/DL TRIGLYCERIDES (test code = 2232) 127 MG/DL HDL CHOLESTEROL (test code = 2220) 46 MG/DL CALC LDL CHOL (test code = 2237) 164 MG/DL RISK RATIO LDL/HDL (test cod e = 2238) 3.57 RATIO COMPREHENSIVE METABOLIC [id number] 00:00:00* Test Item Value Reference Range Interpretation Comme nts GLUCOSE (test code = 2217) 85 MG/DL BUN (test code = 2208) 12 MG/DL CREATININE (test code = 2214) 0.59 MG/DL eGFR (2020 CKD-EPI) (test code = 75674) 123 ML/MIN/1.73 CALC BUN/CREAT (test code = [...] ALT (test code = 2219) 16 U/L [id number] 00:00:00* Test Item Value Reference Range Interpretation Comme nts TSH, THIRD GENERATION (test code = 2821) 7.090 UIU/ML LIPID [id number] 00:00:00* Test Item Value Reference Range Interpretation Comme nts CHOLESTEROL (test code = 2210) 235 MG/DL TRIGLYCERIDES (test code = 2232) 127 MG/DL HDL CHOLESTEROL (test code = 2220) 46 MG/DL CALC LDL CHOL (test code = 2237) 164 MG/DL RISK RATIO LDL/HDL (test cod e = 2238) 3.57 RATIO COMPREHENSIVE METABOLIC [id number] 00:00:00* Test Item Value Reference Range Interpretation Comme nts GLUCOSE (test code = 2217) 85 MG/DL BUN (test code = 2208) 12 MG/DL CREATININE (test code = 2214) 0.59 MG/DL eGFR (2020 CKD-EPI) (test code = 15277) 123 ML/MIN/1.73 CALC BUN/CREAT (test code = [...] ALT (test code = 2219) 16 U/L [id number] 00:00:00* Test Item Value Reference Range Interpretation Comme nts TSH, THIRD GENERATION (test code = 2821) 7.090 UIU/ML LIPID [id number] 00:00:00* Test Item Value Reference Range Interpretation Comme nts CHOLESTEROL (test code = 2210) 235 MG/DL TRIGLYCERIDES (test code = 2232) 127 MG/DL HDL CHOLESTEROL (test code = 2220) 46 MG/DL CALC LDL CHOL (test code = 2237) 164 MG/DL RISK RATIO LDL/HDL (test cod e = 2238) 3.57 RATIO COMPREHENSIVE METABOLIC [id number] 00:00:00* Test Item Value Reference Range Interpretation Comme nts GLUCOSE (test code = 2217) 85 MG/DL BUN (test code = 2208) 12 MG/DL CREATININE (test code = 2214) 0.59 MG/DL eGFR (2020 CKD-EPI) (test code = 00703) 123 ML/MIN/1.73 CALC BUN/CREAT (test code = [...] ALT (test code = 2219) 16 U/L [id number] 00:00:00* Test Item Value Reference Range Interpretation Comme nts TSH, THIRD GENERATION (test code = 2821) 7.090 UIU/ML LIPID [id number] 00:00:00* Test Item Value Reference Range Interpretation Comme nts CHOLESTEROL (test code = 2210) 235 MG/DL TRIGLYCERIDES (test code = 2232) 127 MG/DL HDL CHOLESTEROL (test code = 2220) 46 MG/DL CALC LDL CHOL (test code = 2237) 164 MG/DL RISK RATIO LDL/HDL (test cod e = 2238) 3.57 RATIO Georgi F AustinCOMPREHENSIVE METABOLIC [id number] 00:00:00* Test Item Value Reference Range Interpretation Comme nts GLUCOSE (test code = 2217) 85 MG/DL BUN (test code = 2208) 12 MG/DL CREATININE (test code = 2214) 0.59 MG/DL eGFR (2020 CKD-EPI) (test code = 14674) 123 ML/MIN/1.73 CALC BUN/CREAT (test code = [...] (test code = 2219) 16 U/L Georgi [id number] 00:00:00* Test Item Value Reference Range Interpretation Comme nts TSH, THIRD GENERATION (test code = 2821) 7.090 UIU/ML Georgi CrespoFAUSTINONICecilia [id number] 21:03:34* Test Item Value Reference Range Interpretation Comments TROPONIN I (test code = 5891897994) 0.000 ng/mL See_Comment [Automated message] The system [...] of biotin. Lab Interpretation (test code = 38096-4) [facility][id number] 20:45:29* Test Item Value Reference Range Interpretation Comments D-DIMER (test code = 6725558403) See_Comment [Automated message] The system which generated [...] a diagnosis. Lab Interpretation (test code = 30200-7) [facility] WITH [id number] 19:14:30* Test Item Value Reference Range Interpretation Comme nts WBC (test code = 6690-2) See_Comment [Automated [employer]] The system which generated this result transmitted reference range: 4.30 - 11.10 10*3/?L. The reference range was not used to interpret this result as normal/abnormal. RBC (test code = 789-8) See_Comment [Automated [employer]] The system which generated this result transmitted [...] 32.1 g/dL 31.6-35.1 RDW-SD (test code = 97346-4) 42.2 fL 39.0-49.9 RDW-CV (test code = 788-0) 13.1 % 12.0-15.5 PLT (test code = 777-3) See_Comment [Automated paOndea ge] The system which generated this result transmitted reference range: 166 - 358 10*3/?L. The reference range was not used to interpret this result as normal/abnormal. MPV (test code = 57230-4) 9.6 fL 9.5-12.9 NRBC/100 WBC (test code = 7561836148) See_Comment [Automated [employer] ssage] The system which generated this result transmitted reference range: 0.0 - 10.0 /100 WBCs. The reference range was not used to interpret this result as normal/abnormal. NRBC x10^3 (test code = 8063395696) <0.01 See_Comment [Automated paOndea ge] The system which generated this result transmitted reference range: 10*3/?L. The reference range was not used to interpret this result as normal/abnormal. GRAN MAT (NEUT) % (test code = 770-8) 43.7 % IMM GRAN % (test code = 4132001705) 0.50 % LYMPH % (test code = 736-9) 46.2 % MONO % (test code = 5905-5) 6.2 % EOS % (test code = 713-8) 2.8 % BASO % (test code = 706-2) 0.6 % GRAN MAT x10^3(ANC) (test code = 3695071570) 4.77 10*3/uL 1.88-7.09 IMM GRAN x10^3 (test code = 8324381984) 0.05 10*3/uL 0.00-0.06 LYMPH x10^3 (test code = 731-0) 5.05 10*3/uL 1.32-3.29 H MONO x10^3 (test code = 742-7) 0.68 10*3/uL 0.33-0.92 EOS x10^3 (test code = 711-2) 0.31 10*3/uL 0.03-0.39 BASO x10^3 (test code = 704-7) 0.07 10*3/uL 0.01-0.07 Lab Interpretation (test code = 78007-5) [facility]normal [facility] TempleTRFAUSTINONIN [id number] 18:39:27* Test Item Value Reference Range Interpretation Comments TROPONIN I (test code = 4523694871) 0.001 ng/mL See_Comment [Automated message] The system [...] of biotin. Lab Interpretation (test code = 61197-3) Normal [facility] METABOLIC PANEL (96393)2021-07-27 18:29:25* Test Item Value Reference Range Interpretation Comme nts NA (test code = 3368146411) 137 mmol/L 135-145 K (test code = 5923524881) 4.5 mmol/L 3.5-5.0 CL (test code = 8748396552) 104 mmol/L 98-108 CO2 TOTAL (test code = 8934174129) 26 mmol/L 23-31 AGAP (test code = 7834227479) 2-16 BUN (test code = 4464381123) 10 mg/dL 7-23 GLUCOSE (test code = 6323562572) 87 mg/dL 70-110 CREATININE (test code = 0499377596) 0.59 mg/dL 0.50-1.04 TOTAL BILI (test code = 6959057298) 0.4 mg/dL 0.1-1.1 CALCIUM (test code = 9564514611) 9.6 mg/dL 8.6-10.6 T PROTEIN (test code = 5655169714) 7.1 g/dL 6.3-8.2 ALBUMIN (test code = 0761441316) 4.2 g/dL 3.5-5.0 ALK PHOS (test code = 0227448389) 88 U/L 34-122 ALTv (test code = 1742-6) 22 U/L 5-35 AST(SGOT) (test code = 6855335194) 25 U/L 13-40 eGFR (test code = 3701681680) mL/min/1.73m2 MACI (test code = MACI) Association [...] or urine or abnormalities in imaging tests). [facility]* Test Item Value Reference Range Interpretation Comme nts MAGNESIUM (test code = 2896312158) 1.8 mg/dL 1.7-2.4 Lab Interpretation (test cod e = 45713-4) [facility] [id number] 18:28:00* Test Item Value Reference Range Interpretation Comme nts POCT PREG (test code = 1605) negative POCT PREG LOT # (test code = 3575) [id number] POCT PREG TEST DATE ( test code = 3576) 2022-09-12 Lab Interpretation (test cod e = 07223-4) [facility] [id number] 19:26:00* Test Item Value Reference Range Interpretation Comme nts POCT PREG (test code = 1605) Negative On board controls acceptable with C Line (test code = 3574) Yes POCT PREG LOT # (test code = 3575) POCT PREG TEST DATE ( test code = 3576) Lab Interpretation (test cod e = 80136-7) [facility] [id number] 19:26:00* Test Item Value Reference Range Interpretation Comme nts POCT PREG (test code = 1605) Negative On board controls acceptable with C Line (test code = 3574) Yes POCT PREG LOT # (test code = 3575) POCT PREG TEST DATE ( test code = 3576) Lab Interpretation (test cod e = 24241-6) [facility] [id number] 19:26:00* Test Item Value Reference Range Interpretation Comme nts POCT PREG (test code = 1605) Negative On board controls acceptable with C Line (test code = 3574) Yes POCT PREG LOT # (test code = 3575) POCT PREG TEST DATE ( test code = 3576) Lab Interpretation (test cod e = 96932-8) [facility] (HIGH RISK) 2020-12-15 00:00:00* Test Item Value Reference Range Interpretation Comme nts SARS-CoV-2 INTERPRETATION (t est code = 28937) NEGATIVE SOURCE (test code = 55928) NOT SPECIFIED Georgi DelaneySARS-CoV-2 (COVID-19) by RT-PCR (HIGH RISK)2020-12-15 00:00:00* Test Item Value Reference Range Interpretation Comme nts SARS-CoV-2 INTERPRETATION (t est code = 16808) NEGATIVE SOURCE (test code = 49234) NOT SPECIFIED Georgi Johnson LmzljwZYMR-QwH-1 (COVID-19) by RT-PCR (HIGH RISK)2020-12-15 00:00:00* Test Item Value Reference Range Interpretation Comme nts SARS-CoV-2 INTERPRETATION (t est code = 36500) NEGATIVE SOURCE (test code = 27452) NOT SPECIFIED Georgi Johnson XolzbjAIJS-TwV-9 (COVID-19) by RT-PCR (HIGH RISK)2020-12-15 00:00:00* Test Item Value Reference Range Interpretation Comme nts SARS-CoV-2 INTERPRETATION (t est code = 34296) NEGATIVE SOURCE (test code = 74819) NOT SPECIFIED SARS-CoV-2 (COVID-19) by RT-PCR (HIGH RISK)2020-12-15 00:00:00* Test Item Value Reference Range Interpretation Comme nts SARS-CoV-2 INTERPRETATION (t est code = 83714) NEGATIVE SOURCE (test code = 64421) NOT SPECIFIED SARS-CoV-2 (COVID-19) by RT-PCR (HIGH RISK)2020-12-15 00:00:00* Test Item Value Reference Range Interpretation Comme nts SARS-CoV-2 INTERPRETATION (t est code = 77499) NEGATIVE SOURCE (test code = 67809) NOT SPECIFIED SARS-CoV-2 (COVID-19) by RT-PCR (HIGH RISK)2020-12-15 00:00:00* Test Item Value Reference Range Interpretation Comme nts SARS-CoV-2 INTERPRETATION (t est code = 90390) NEGATIVE SOURCE (test code = 63808) NOT SPECIFIED SARS-CoV-2 (COVID-19) by RT-PCR (HIGH RISK)2020-12-15 00:00:00* Test Item Value Reference Range Interpretation Comme nts SARS-CoV-2 INTERPRETATION (t est code = 36266) NEGATIVE SOURCE (test code = 60145) NOT SPECIFIED POCT [id number] 20:47:00* Test Item Value Reference Range Interpretation Comme nts POCT PREG (test code = 1605) Negative On board controls acceptable with C Line (test code = 3574) Yes POCT PREG LOT # (test code = 3575) POCT PREG TEST DATE ( test code = 3576) Lab Interpretation (test cod e = 24521-4) [facility] [id number] 20:47:00* Test Item Value Reference Range Interpretation Comme nts POCT PREG (test code = 1605) Negative On board controls acceptable with C Line (test code = 3574) Yes POCT PREG LOT # (test code = 3575) POCT PREG TEST DATE ( test code = 3576) Lab Interpretation (test cod e = 98523-6) [facility] TempleHIV [facility]/AG COMBO RFLX [id number] 00:00:00* Test Item Value Reference Range Interpretation Comme nts HIV 1/2 4TH GEN, RFLX CONF ( test code = 3514) NON-REACTIVE Georgi DelaneyGC AND CHLAMYDIA AMPLIFIED, [id number] 00:00:00* Test Item Value Reference Range Interpretation Comme nts GONORRHEA, TMA (test code = 56442) NEGATIVE CHLAMYDIA, TMA (test code = 51545) NEGATIVE Georgi DelaneyPAP TEST, THINPREP, [id number] 00:00:00* Test Item Value Reference Range Interpretation Comme nts SOURCE: (test code = 8001) Endocervical SLIDES: (test code = 8011) 1 LMP: (test code = 8021) 10/2020 SPECIMEN ADEQUACY: (test code = 46232) (NOTE) INTERPRETATION: (test code = 16772) NILM/NO EPITH. ABNORMALITY;SEE BELOW WELDER FABRICATOR: (test code = 8101) RANJEET Riley(ASCP)IAC LOCATION: (test code = 40366) (NOTE) CPT: (test code = 8140) (NOTE) Georgi DelaneyACUTE HEPATITIS [id number] 00:00:00* Test Item Value Reference Range Interpretation Comme nts HEPATITIS A IgM (test code = 49915) NON-REACTIVE HEPATITIS B CORE IgM (test c ode = 4644) NON-REACTIVE HEPATITIS B SURF AG (test co de = 4139) NON-REACTIVE HEPATITIS C ANTIBODY (test c ode = 4618) NON-REACTIVE INTERPRETATION HEPATITIS A: (test code = 2552) (NOTE) INTERPRETATION HEPATITIS B: (test code = 58319) (NOTE) INTERPRETATION HEPATITIS C: (test code = 31744) (NOTE) Georgi [id number] 00:00:00* Test Item Value Reference Range Interpretation Comme nts RPR RESULT (test code = 3501) NON-REACTIVE RPR TITER (test code = 3500) NOT INDIC. TITER Georgi DelaneyHPV HIGH RISK WITH GENOTYPE, [id number] 00:00:00* Test Item Value Reference Range Interpretation Comme amador HPV HIGH RISK INTERP (test c ode = 13439) NEGATIVE HPV 16 (test code = 07734) NEGATIVE HPV 18 (test code = 32133) NEGATIVE HPV, HR, OTHER GENOTYPES (te st code = 17203) NEGATIVE Georgi DelaneyVAGINAL PATHOGENS DNA [id number] 00:00:00* Test Item Value Reference Range Interpretation Comme nts ANNE MARIE SPECIES (test code = 62744) NEGATIVE G. VAGINALIS (test code = 64017) NEGATIVE T. VAGINALIS (test code = 64850) NEGATIVE Georgi DelaneyHIV AB/AG COMBO RFLX [id number] 00:00:00* Test Item Value Reference Range Interpretation Comme nts HIV 1/2 4TH GEN, RFLX CONF ( test code = 3514) NON-REACTIVE Georgi DelaneyGC AND CHLAMYDIA AMPLIFIED, [id number] 00:00:00* Test Item Value Reference Range Interpretation Comme nts GONORRHEA, TMA (test code = 99332) NEGATIVE CHLAMYDIA, TMA (test code = 35528) NEGATIVE Georgi DelaneyPAP TEST, THINPREP, [id number] 00:00:00* Test Item Value Reference Range Interpretation Comme nts SOURCE: (test code = 8001) Endocervical SLIDES: (test code = 8011) 1 LMP: (test code = 8021) 10/2020 SPECIMEN ADEQUACY: (test code = 02348) (NOTE) INTERPRETATION: (test code = 77833) NILM/NO EPITH. ABNORMALITY;SEE BELOW WELDER FABRICATOR: (test code = 8101) RANJEET Riley(ASCP)IAC LOCATION: (test code = 84778) (NOTE) CPT: (test code = 8140) (NOTE) Georgi DelaneyACUTE HEPATITIS [id number] 00:00:00* Test Item Value Reference Range Interpretation Comme nts HEPATITIS A IgM (test code = 41958) NON-REACTIVE HEPATITIS B CORE IgM (test c ode = 4634) NON-REACTIVE HEPATITIS B SURF AG (test co de = 2739) NON-REACTIVE HEPATITIS C ANTIBODY (test c ode = 4628) NON-REACTIVE INTERPRETATION HEPATITIS A: (test code = 2552) (NOTE) INTERPRETATION HEPATITIS B: (test code = 12756) (NOTE) INTERPRETATION HEPATITIS C: (test code = 59738) (NOTE) Georgi Johnson AustinHPV HIGH RISK WITH GENOTYPE, [id number] 00:00:00* Test Item Value Reference Range Interpretation Comme nts HPV HIGH RISK INTERP (test c ode = 42770) NEGATIVE HPV 16 (test code = 60189) NEGATIVE HPV 18 (test code = 72514) NEGATIVE HPV, HR, OTHER GENOTYPES (te st code = 88996) NEGATIVE Georgi Johnson [id number] 00:00:00* Test Item Value Reference Range Interpretation Comme nts RPR RESULT (test code = 3501) NON-REACTIVE RPR TITER (test code = 3500) NOT INDIC. TITER Georgi Johnson AustinVAGINAL PATHOGENS DNA [id number] 00:00:00* Test Item Value Reference Range Interpretation Comme nts ANNE MARIE SPECIES (test code = 39606) NEGATIVE G. VAGINALIS (test code = 99401) NEGATIVE T. VAGINALIS (test code = 55317) NEGATIVE Georgi Johnson AustinGC AND CHLAMYDIA AMPLIFIED, [id number] 00:00:00* Test Item Value Reference Range Interpretation Comme nts GONORRHEA, TMA (test code = 52162) NEGATIVE CHLAMYDIA, TMA (test code = 29888) NEGATIVE Georgi Johnson AustinGC AND CHLAMYDIA AMPLIFIED, [id number] 00:00:00* Test Item Value Reference Range Interpretation Comme nts GONORRHEA, TMA (test code = 02547) NEGATIVE CHLAMYDIA, TMA (test code = 37378) NEGATIVE HIV AB/AG COMBO RFLX [id number] 00:00:00* Test Item Value Reference Range Interpretation Comme nts HIV 1/2 4TH GEN, RFLX CONF ( test code = 3514) NON-REACTIVE ACUTE HEPATITIS [id number] 00:00:00* Test Item Value Reference Range Interpretation Comme nts HEPATITIS A IgM (test code = 51422) NON-REACTIVE HEPATITIS B CORE IgM (test c ode = 4644) NON-REACTIVE HEPATITIS B SURF AG (test co de = 2739) NON-REACTIVE HEPATITIS C ANTIBODY (test c ode = 4636) NON-REACTIVE INTERPRETATION HEPATITIS A: (test code = 2552) (NOTE) INTERPRETATION HEPATITIS B: (test code = 22383) (NOTE) INTERPRETATION HEPATITIS C: (test code = 64192) (NOTE) PAP TEST, THINPREP, [id number] 00:00:00* Test Item Value Reference Range Interpretation Comme nts SOURCE: (test code = 8001) Endocervical SLIDES: (test code = 8011) 1 LMP: (test code = 8021) 10/2020 SPECIMEN ADEQUACY: (test code = 42392) (NOTE) INTERPRETATION: (test code = 30763) NILM/NO EPITH. ABNORMALITY;SEE BELOW WELDER FABRICATOR: (test code = 8101) RANJEET Riley(ASCP)IAC LOCATION: (test code = 77403) (NOTE) CPT: (test code = 8140) (NOTE) [id number] 00:00:00* Test Item Value Reference Range Interpretation Comme nts RPR RESULT (test code = 3501) NON-REACTIVE RPR TITER (test code = 3500) NOT INDIC. TITER HPV HIGH RISK WITH GENOTYPE, [id number] 00:00:00* Test Item Value Reference Range Interpretation Comme nts HPV HIGH RISK INTERP (test c ode = 66292) NEGATIVE HPV 16 (test code = 61900) NEGATIVE HPV 18 (test code = 14264) NEGATIVE HPV, HR, OTHER GENOTYPES (te st code = 57027) NEGATIVE VAGINAL PATHOGENS DNA [id number] 00:00:00* Test Item Value Reference Range Interpretation Comme nts ANNE MARIE SPECIES (test code = 22703) NEGATIVE G. VAGINALIS (test code = 43884) NEGATIVE T. VAGINALIS (test code = 07554) NEGATIVE HIV AB/AG COMBO RFLX [id number] 00:00:00* Test Item Value Reference Range Interpretation Comme nts HIV 1/2 4TH GEN, RFLX CONF ( test code = 3514) NON-REACTIVE GC AND CHLAMYDIA AMPLIFIED, [id number] 00:00:00* Test Item Value Reference Range Interpretation Comme nts GONORRHEA, TMA (test code = 43954) NEGATIVE CHLAMYDIA, TMA (test code = 78970) NEGATIVE ACUTE HEPATITIS [id number] 00:00:00* Test Item Value Reference Range Interpretation Comme nts HEPATITIS A IgM (test code = 54285) NON-REACTIVE HEPATITIS B CORE IgM (test c ode = 4644) NON-REACTIVE HEPATITIS B SURF AG (test co de = 2739) NON-REACTIVE HEPATITIS C ANTIBODY (test c ode = 4665) NON-REACTIVE INTERPRETATION HEPATITIS A: (test code = 2552) (NOTE) INTERPRETATION HEPATITIS B: (test code = 59452) (NOTE) INTERPRETATION HEPATITIS C: (test code = 19059) (NOTE) PAP TEST, THINPREP, [id number] 00:00:00* Test Item Value Reference Range Interpretation Comme nts SOURCE: (test code = 8001) Endocervical SLIDES: (test code = 8011) 1 LMP: (test code = 8021) 10/2020 SPECIMEN ADEQUACY: (test code = 97116) (NOTE) INTERPRETATION: (test code = 91850) NILM/NO EPITH. ABNORMALITY;SEE BELOW WELDER FABRICATOR: (test code = 8101) RANJEET Riley(ASCP)IAC LOCATION: (test code = 57651) (NOTE) CPT: (test code = 8140) (NOTE) HPV HIGH RISK WITH GENOTYPE, [id number] 00:00:00* Test Item Value Reference Range Interpretation Comme nts HPV HIGH RISK INTERP (test c ode = 09147) NEGATIVE HPV 16 (test code = 47983) NEGATIVE HPV 18 (test code = 91827) NEGATIVE HPV, HR, OTHER GENOTYPES (te st code = 68972) NEGATIVE HIV AB/AG COMBO RFLX [id number] 00:00:00* Test Item Value Reference Range Interpretation Comme nts HIV 1/2 4TH GEN, RFLX CONF ( test code = 3514) NON-REACTIVE Georgi Alex [id number] 00:00:00* Test Item Value Reference Range Interpretation Comme nts RPR RESULT (test code = 3501) NON-REACTIVE RPR TITER (test code = 3500) NOT INDIC. TITER VAGINAL PATHOGENS DNA [id number] 00:00:00* Test Item Value Reference Range Interpretation Comme nts ANNE MARIE SPECIES (test code = 18899) NEGATIVE G. VAGINALIS (test code = 34600) NEGATIVE T. VAGINALIS (test code = 18694) NEGATIVE GC AND CHLAMYDIA AMPLIFIED, [id number] 00:00:00* Test Item Value Reference Range Interpretation Comme nts GONORRHEA, TMA (test code = 98734) NEGATIVE CHLAMYDIA, TMA (test code = 31206) NEGATIVE HIV AB/AG COMBO RFLX [id number] 00:00:00* Test Item Value Reference Range Interpretation Comme nts HIV 1/2 4TH GEN, RFLX CONF ( test code = 3514) NON-REACTIVE ACUTE HEPATITIS [id number] 00:00:00* Test Item Value Reference Range Interpretation Comme nts HEPATITIS A IgM (test code = 00454) NON-REACTIVE HEPATITIS B CORE IgM (test c ode = 4644) NON-REACTIVE HEPATITIS B SURF AG (test co de = 2739) NON-REACTIVE HEPATITIS C ANTIBODY (test c ode = 4675) NON-REACTIVE INTERPRETATION HEPATITIS A: (test code = 2552) (NOTE) INTERPRETATION HEPATITIS B: (test code = 44932) (NOTE) INTERPRETATION HEPATITIS C: (test code = 95023) (NOTE) PAP TEST, THINPREP, [id number] 00:00:00* Test Item Value Reference Range Interpretation Comme nts SOURCE: (test code = 8001) Endocervical SLIDES: (test code = 8011) 1 LMP: (test code = 8021) 10/2020 SPECIMEN ADEQUACY: (test code = 20834) (NOTE) INTERPRETATION: (test code = 24786) NILM/NO EPITH. ABNORMALITY;SEE BELOW WELDER FABRICATOR: (test code = 8101) RANJEET Riley(ASCP)IAC LOCATION: (test code = 10980) (NOTE) CPT: (test code = 8140) (NOTE) HPV HIGH RISK WITH GENOTYPE, [id number] 00:00:00* Test Item Value Reference Range Interpretation Comme nts HPV HIGH RISK INTERP (test c ode = 39500) NEGATIVE HPV 16 (test code = 01839) NEGATIVE HPV 18 (test code = 36989) NEGATIVE HPV, HR, OTHER GENOTYPES (te st code = 67692) NEGATIVE [id number] 00:00:00* Test Item Value Reference Range Interpretation Comme nts RPR RESULT (test code = 3501) NON-REACTIVE RPR TITER (test code = 3500) NOT INDIC. TITER VAGINAL PATHOGENS DNA [id number] 00:00:00* Test Item Value Reference Range Interpretation Comme nts ANNE MARIE SPECIES (test code = 06467) NEGATIVE G. VAGINALIS (test code = 70415) NEGATIVE T. VAGINALIS (test code = 55889) NEGATIVE GC AND CHLAMYDIA AMPLIFIED, [id number] 00:00:00* Test Item Value Reference Range Interpretation Comme nts GONORRHEA, TMA (test code = 05631) NEGATIVE CHLAMYDIA, TMA (test code = 56993) NEGATIVE HIV AB/AG COMBO RFLX [id number] 00:00:00* Test Item Value Reference Range Interpretation Comme nts HIV 1/2 4TH GEN, RFLX CONF ( test code = 3514) NON-REACTIVE PAP TEST, THINPREP, [id number] 00:00:00* Test Item Value Reference Range Interpretation Comme nts SOURCE: (test code = 8001) Endocervical SLIDES: (test code = 8011) 1 LMP: (test code = 8021) 10/2020 SPECIMEN ADEQUACY: (test code = 00484) (NOTE) INTERPRETATION: (test code = 42673) NILM/NO EPITH. ABNORMALITY;SEE BELOW WELDER FABRICATOR: (test code = 8101) RANJEET Riley(ASCP)IAC LOCATION: (test code = 69529) (NOTE) CPT: (test code = 8140) (NOTE) ACUTE HEPATITIS [id number] 00:00:00* Test Item Value Reference Range Interpretation Comme nts HEPATITIS A IgM (test code = 18101) NON-REACTIVE HEPATITIS B CORE IgM (test c ode = 4644) NON-REACTIVE HEPATITIS B SURF AG (test co de = 2739) NON-REACTIVE HEPATITIS C ANTIBODY (test c ode = 4637) NON-REACTIVE INTERPRETATION HEPATITIS A: (test code = 2552) (NOTE) INTERPRETATION HEPATITIS B: (test code = 65145) (NOTE) INTERPRETATION HEPATITIS C: (test code = 90790) (NOTE) [id number] 00:00:00* Test Item Value Reference Range Interpretation Comme nts RPR RESULT (test code = 3501) NON-REACTIVE RPR TITER (test code = 3500) NOT INDIC. TITER HPV HIGH RISK WITH GENOTYPE, [id number] 00:00:00* Test Item Value Reference Range Interpretation Comme [facility] HPV HIGH RISK INTERP (test c ode = 21447) NEGATIVE HPV 16 (test code = 05121) NEGATIVE HPV 18 (test code = 24161) NEGATIVE HPV, HR, OTHER GENOTYPES (te st code = 36208) NEGATIVE VAGINAL PATHOGENS DNA [id number] 00:00:00* Test Item Value Reference Range Interpretation Comme [facility] ANNE MARIE SPECIES (test code = 84299) NEGATIVE G. VAGINALIS (test code = 47837) NEGATIVE T. VAGINALIS (test code = 43921) NEGATIVE GC AND CHLAMYDIA AMPLIFIED, [id number] 00:00:00* Test Item Value Reference Range Interpretation Comme [facility] GONORRHEA, TMA (test code = 37332) NEGATIVE CHLAMYDIA, TMA (test code = 97039) NEGATIVE HIV AB/AG COMBO RFLX [id number] 00:00:00* Test Item Value Reference Range Interpretation Comme [facility] HIV 1/2 4TH GEN, RFLX CONF ( test code = 3514) NON-REACTIVE ACUTE HEPATITIS [id number] 00:00:00* Test Item Value Reference Range Interpretation Comme [facility] HEPATITIS A IgM (test code = 90094) NON-REACTIVE HEPATITIS B CORE IgM (test c ode = 4644) NON-REACTIVE HEPATITIS B SURF AG (test co de = 2739) NON-REACTIVE HEPATITIS C ANTIBODY (test c ode = 4675) NON-REACTIVE INTERPRETATION HEPATITIS A: (test code = 2552) (NOTE) INTERPRETATION HEPATITIS B: (test code = 98192) (NOTE) INTERPRETATION HEPATITIS C: (test code = 73375) (NOTE) PAP TEST, THINPREP, [id number] 00:00:00* Test Item Value Reference Range Interpretation Comme [facility] SOURCE: (test code = 8001) Endocervical SLIDES: (test code = 8011) 1 LMP: (test code = 8021) 10/2020 SPECIMEN ADEQUACY: (test code = 84028) (NOTE) INTERPRETATION: (test code = 23463) NILM/NO EPITH. ABNORMALITY;SEE BELOW WELDER FABRICATOR: (test code = 8101) Brinkley, CT(ASCP)IAC LOCATION: (test code = 98278) (NOTE) CPT: (test code = 8140) (NOTE) HPV HIGH RISK WITH GENOTYPE, [id number] 00:00:00* Test Item Value Reference Range Interpretation Comme nts HPV HIGH RISK INTERP (test c ode = 14827) NEGATIVE HPV 16 (test code = 28123) NEGATIVE HPV 18 (test code = 65588) NEGATIVE HPV, HR, OTHER GENOTYPES (te st code = 17397) NEGATIVE [id number] 00:00:00* Test Item Value Reference Range Interpretation Comme nts RPR RESULT (test code = 3501) NON-REACTIVE RPR TITER (test code = 3500) NOT INDIC. TITER VAGINAL PATHOGENS DNA [id number] 00:00:00* Test Item Value Reference Range Interpretation Comme nts ANNE MARIE SPECIES (test code = 66831) NEGATIVE G. VAGINALIS (test code = 36320) NEGATIVE T. VAGINALIS (test code = 19405) NEGATIVE PAP TEST, THINPREP, [id number] 00:00:00* Test Item Value Reference Range Interpretation Comme nts SOURCE: (test code = 8001) Endocervical SLIDES: (test code = 8011) 1 LMP: (test code = 8021) 10/2020 SPECIMEN ADEQUACY: (test code = 48782) (NOTE) INTERPRETATION: (test code = 53325) NILM/NO EPITH. ABNORMALITY;SEE BELOW WELDER FABRICATOR: (test code = 8101) Brinkley, CT(ASCP)[facility] LOCATION: (test code = 16924) (NOTE) CPT: (test code = 8140) (NOTE) Georgi DelaneyACUTE HEPATITIS [id number] 00:00:00* Test Item Value Reference Range Interpretation Comme nts HEPATITIS A IgM (test code = 14198) NON-REACTIVE HEPATITIS B CORE IgM (test c ode = 4644) NON-REACTIVE HEPATITIS B SURF AG (test co de = 2819) NON-REACTIVE HEPATITIS C ANTIBODY (test c ode = 4649) NON-REACTIVE INTERPRETATION HEPATITIS A: (test code = 2552) (NOTE) INTERPRETATION HEPATITIS B: (test code = 50941) (NOTE) INTERPRETATION HEPATITIS C: (test code = 24132) (NOTE) Georgi [id number] 00:00:00* Test Item Value Reference Range Interpretation Comme nts RPR RESULT (test code = 3501) NON-REACTIVE RPR TITER (test code = 3500) NOT INDIC. TITER Georgi DelaneyHPV HIGH RISK WITH GENOTYPE, [id number] 00:00:00* Test Item Value Reference Range Interpretation Comme nts HPV HIGH RISK INTERP (test c ode = 81517) NEGATIVE HPV 16 (test code = 45229) NEGATIVE HPV 18 (test code = 84025) NEGATIVE HPV, HR, OTHER GENOTYPES (te st code = 41730) NEGATIVE Georgi DelaneyVAGINAL PATHOGENS DNA [id number] 00:00:00* Test Item Value Reference Range Interpretation Comme nts ANNE MARIE SPECIES (test code = 31719) NEGATIVE G. VAGINALIS (test code = 08082) NEGATIVE T. VAGINALIS (test code = 69621) NEGATIVE Georgi Delaney Notes Date/Time Note Provider Source 2024-11-17 15:06:27 Chief Complaint Patient presents with Consultation Referral for Fibromyalgia Christophe Holder MA [facility] 2024-11-11 13:33:07 Chief Complaint Patient presents with Follow-up Follow up on Venlafaxine. Britt Lorenzana MA [facility] 2024-10-06 15:22:30 Chief Complaint Patient presents with Thyroid Problem Juana Ortiz MA CTOR SERVICE Juana Ortiz MA [facility] 2024-10-03 09:53:49 Chief Complaint Patient presents with Back Pain Thelma Santillan MA CTOR SERVICE Thelma Santillan MA [facility] 2024-09-18 10:47:59 Images from the original note were not included. Attempted to contact the patient by phone; however, there was no answer. Left a voicemail giving her information about [employer] that can be found on the [facility] website G Thurman [facility] 2024-09-17 13:49:48 Phani Willoughby is a 34 year old female Pt calling in regards to appt on 09/19/24. Pt was advised by O to contact the manger in clinic to discus setting up pymnt plan for OV. Please advise. G Bonilla [facility] 2024-09-16 13:30:48 Chief Complaint Patient presents with Follow-up Follow up on weight management Britt Lorenzana MA [facility] 2024-06-26 14:51:28 Chief Complaint Patient presents with Follow-up Follow up on anxiety/depression and weight management. Patient states that she is feeling the same with anxiety/depression. Medication "keeps her level". Britt Lorenzana MA II [facility] 2024-06-25 10:20:00 [facility] ([facility]) Post Anesthesia Evaluation REPORT#:[id number] REPORT STATUS: Signed REPORT INITIALIZATION DATE:06/25/24 TIME:1020 PATIENT: PHANI WILLOUGHBY UNIT #: [id number] ROOM/BED: : 89 AGE: 33 SEX: F ATTEND: Cesar Garcia MD ADM AUTHOR: Ezequiel Campos MD REPT SERVICE DT/TIME: 06/25/24 1020 * ALL edits or amendments must be made on the electronic/computer document * Post Anesthesia Evaluation Anes. changes from pre-op eval ORM Surgeries: Surgery Date and Time: 06/25/2024 0830 Proposed Primary Procedure: COLONOSCOPY DIAGNOSTIC Anesthetic: MAC [...] 06/25 910 O2 Flow Rate 3.5 06/25 851 Cardiovascular: CV system stable, vital signs stable Respiratory/Airway: respiratory system stable Pain: adequately controlled Hydration: adequate, euvolemic Temp status: greater than 96.8F, normothermic Presence of N/V: no Anesthesia complications: no Other changes requiring f/u: none Conclusions: no apparent anes. issues Additional comments: Patient stable for discharge from the PACU to phase II of care. at 1021 RPT #: [id number] END OF REPORT [facility] 2024-06-25 08:19:00 THIS REPORT HAS BEEN APPENDED [id number] [place] [address] PATIENT NAME: PHANI WILLOUGHBY ADMIT DATE: 06/25/24 ACCOUNT NO: [id number] ROOM NO: AGE: 33 REPORT TYPE: ENDOSCOPY [...] In: 8:29:10 AM Scope Out: 8:42:51 AM [address] [place] [address] Provation {[id number]}.pdf ProVation FT PDF at 0851 SECTION 2 ADDENDUM 1: 06/25/24 1403 GCD.PROVAT Patient Name: Phani Willoughby Procedure Date: 06/25/2024 [...] In: 8:29:10 AM Scope Out: 8:42:51 AM [address] [facility] [place] [address] Provation {[id number]}.pdf ProVation FT PDF at 1403 PATIENT NAME: PHANI WILLOUGHBY [facility] 2024-06-10 14:02:04 Chief Complaint Patient presents with Consultation Back Pain RN ENDOSCOPY - Baylee Cha [facility] 2024-05-27 14:58:18 Chief Complaint Patient presents with Follow-up Follow up on weight management and GI issues Britt Lorenzana MA II [facility] 2024-04-03 15:13:20 Chief Complaint Patient presents with Physical Not fasting for labs. Passed out to Fariba Hughes LVN [facility] 2024-03-04 14:26:34 Chief Complaint Patient presents with Follow-up Follow up on Psychiatry or Orthopedics. She states that she did not receive a call from Orthopedics and she did not follow up with Psychiatry due to she wants a female vs a male. Britt Lorenzana MA II T [facility] 2024-02-05 15:23:20 Chief Complaint Patient presents with Establish Care Changing PCP's due to insurance change. Referral Referral to Psychiatry, Psychologist, Occupational Medicine for disability. She is currently not on disability, is trying to get on. Referral to Neurology for migraines. Referral to Orthopedic for back pain. Britt Lorenzana MA II [facility] 2024-01-29 09:41:54 Letter drafted and sent to pt via [employer]. [facility] 2024-01-28 13:50:07 Spoke with pt and let her know message would be sent to provider requesting the letter. It will be sent to her Hello [employer] once written. [facility] 2024-01-28 12:15:57 Phani Willoughby is a 33 year old female calling and states she is currently having a migraine and is requesting a letter of diagnoses. Pt is requesting for it to say that she has 3-4 migraines a month, has continuous headaches, and that she goes to hospital for them also. Patient requesting for this to be uploaded to [employer]. Please advise [phone] (home) Teresa Bronson [facility] 2024-01-09 11:41:38 Spoke with patient and informed her that Dorothy Shukla DNP has provided a letter as requested. Patient verbalized understanding and has requested letter to be sent to her email at [email or web address]. Patient has no other questions at this time. Bauer LVN [facility] Georgi Keller [facility]2024-05-24 10:52:40 Provided patient with Feedback/advisement from Dorothy Shukla DNP. Patient requesting to send a request back to Provider; Patient states that she is not asking for disability support from Provider, she is asking for a letter of diagnosis to submit to the blast setter that is helping her to file disability. T Angie Bauer [facility]2024-05-24 10:47:45 Per Dorothy Shukla DNP "Our department will not support for disability.She should contact PCP." [facility]2024-05-21 14:18:58 Patient requesting for Dorothy Shukla DNP to write a letter of diagnosis, stating that she has degenerative disc disease and osteoarthritis of her lumbar region. States that she is trying to file disability through her [employer] and they are asking if Provider would write this letter for her. In addition, informed patient of feedback from Dorothy Shukla DNP in reference to needing documentation of 6 weeks of Physical Therapy prior to MRI getting approved through insurance. Patient verbalized understanding and states that she will be losing her medical insurance in under a week. Angie Bauer [facility]2024-05-20 17:45:49 Phani Willoughby is a 33 year old female Pt called requesting to speak with clinic on getting disability forms submitted with diagnosis completed with clinic. Please advise. Kuldip Liu [id number] 17:43:38 Phani Willoughby is a 33 year old female Pt called regarding wanting to speak with group on how she will be able to file medical notes with diagnosis from group for her to file for disability. Please advise. Kuldip Liu [id number] 11:09:26 [facility] Specialty Pharmacy Therapy Plan Phani Willoughby is a 33 year old y/o /White female patient referred to the [facility] Specialty Pharmacy for management of Ubrelvy/Nurtec [...] the hospital on 10/16/23 - migraine. The [facility] Specialty Pharmacist has reviewed: The H&P, treatment [...] needs to be refrigerated. [address] [phone] [facility] [address] -Follow-up: Provided patient with PharmD contact information to call if they have any questions. Future Appointments Provider Department Dept Phone 09/18/2024 11:00 AM Afia Beaulieu FNP [facility] Neurology, [facility] [phone] A comprehensive Welcome Packet is accessible to all patients via the [facility] Specialty Pharmacy's website. For patients who may not have internet access, a printed copy is included with their medication shipment or provided during medication pick-up. Thank you, Navneet Dang [facility] Specialty Pharmacy Navneet Dang [facility]2024-05-16 00:00:00 Georgi Keller [facility]2024-05-10 00:00:00 Georgi Keller [facility]2024-04-18 00:46:40 Awake, alert oriented X4, respiratory [...] noted upon discharge Pt [facility]ulated [facility] with steady gait Amanda Silva [id number] 23:35:25 Pt arrives ambulatory to ED reporting [...] States she needs someone to talk to. [id number] 23:30:00 [facility] Emergency Department Note Patient Name: Phani Willoughby Date of : 1990 33 year old female [id number] Primary Care Physician: Archie Medley Patient Escorted by: Self [9] Mode of Arrival: Personal means [1] EMS Treatment Prior to ED Arrival: [employer] SPECIALIST treatment comments: propanolol, toprimate, metformin @ aprox [...] to talk to. History provided by: Patient package worker used: No Past Medical History/Immunizations: Past Medical [...] History: Procedure Laterality Date RECONSTRUCTION FACE (SHX) 1991 dog bite TONSILLECTOMY Review of Systems: Review [...] Medley Relationship: PCP - General [address] [facility] [address] Instructions: If symptoms worsen Electronically signed by: Emily Singh MD 11/29/23 0030 [place] [address]-03-19 08:46:25 Please have her schedule an appt, since at our last visit she was happy with her meds. [place] [address]75-03-11 10:30:51 Signed letter received by Dr. Blackburn. DC order for PAP therapy noted on patient chart. Called Phani Willoughby to inquire how she wanted to receive the letter. No answer, LVM. [facility] Pat Hudson [place] [address]-03-11 09:47:01 Letter requested by patient signed- handed to Wendy to facilitate delivery to patient. Will order discontinuation of apap per patient request. [place] [id number] 12:00:04 Called and spoke to Phani Willoughby [...] drafted and pend for Dr Blackburn review. CTOR SERVICE Heaven Aguilar [facility] [id number] 01:44:27 Pt given printed and verbal discharge [...] leaving in no apparent distress, G Quarles [facility] [id number] 23:47:29 Summary: Triage CC: patient keya started [...] with no assitance Appears in no distress CTOR SERVICE Annamarie Maza [facility] [id number] 22:35:00 Regarding: pt has a really bad migraine since early am//requested triage ----- Message from Jeanmarie Guerrero sent at 10/16/2023 10:35 PM DIRECTOR SERVICE ----- Phani Willoughby is a 33 year old female [facility]2024-03-05 22:35:00 Adult Triage Assessment Last Clinic Visit: [...] this time, call back warnings given. Debbie Velasco, director of nursing Center Nurse Triage Reason for Disposition [1] SEVERE headache (e.g., excruciating) AND [2] "worst headache" of life Protocols used: [id number] [facility]2024-03-05 13:21:12 Called Phani Willoughby and left message asking if she wanted us to submit the PAP orders that she previously informed us to hold. Instructed to return call when message received. [facility]2024-02-28 09:41:02 Called patient to schedule appointment for Emelia. No answer [facility] 08:11:02 Please assist pt with scheduling a telehealth appt. Pt does not feel comfortable driving to the office due to not being able to sleep at night. Pt scheduled for an appt today at 9:00. Pls advise. [facility] 07:08:08 Phani Willoughby is a 33 year old female Pt is stating that she did not sleep last night and it is too dangerous for her to drive. Pt is asking for today's appt to be converted to a telehealth visit. Please advise Call pt at [phone] (home) G JudgeTriHealth [facility]ull[facility] HospitalXwenhf3255-99-24 10:49:12 [facility] Specialty Pharmacy Therapy Plan Phani Willoughby is a 33 year old y/o /White female patient referred to the [facility] Specialty Pharmacy for management of Nurtec [...] hospitalization related to their specialty condition. The [facility] Specialty Pharmacist has reviewed: The H&P, treatment [...] it needs to be refrigerated. [id number] [facility] [id number] -Follow-up: Provided patient with PharmD contact information to call if they have any questions. Future Appointments Provider Department Dept Phone 09/18/2024 11:00 AM Afia Beaulieu FNP [facility] Neurology, [facility] [phone] Thank you, Navneet Dang [facility] Specialty Pharmacy CTOR SERVICE Navneet Dang [facility]2024-02-19 10:47:34 Noted. Thanks, Dr. Blackburn CTOR SERVICE IM-PULMONARY DISEASE ST[facility]FFKettering [facility] Main [id number] 10:26:05 Called and spoke with Phani Willoughby [...] to Dr Blackburn to keep him updated. CTOR SERVICE Heaven Aguilar [facility] SpringsHlnvhn7208-09-17 09:44:03 Pt is calling to speak with nurse Collado regarding her SS results, Please advise (home) [facility] Jia WhiteKettering Health Main CampusNbwvok9313-84-58 15:17:02 Called patient and left message regarding ss results. Patient instructed to return call when message received. [facility]2024-02-16 14:26:28 See routing note for details and prescription. Thanks, Dr. Blackburn [place] [id number] 11:01:13 Phani Willoughby is a 33 year old female Pt is calling requesting to discuss sleep study results pt states its been several weeks and still has not gotten results yet and her medicaid is going to end very soon and would like to get everything done before then. Escalated message to the nurse. Please call to discuss. Please advise. [facility] Dinora VelascoSara [place] [id number] 11:00:00 Addended by: ELLY BLACKBURN MD on: 09/28/2023 02:26 PM Modules accepted: Orders [facility]2023-09-08 23:54:30 Pt given printed and verbal [...] gait, in no apparent distress Margarita Guerrero [place] - [id number] 20:30:30 Suicide Risk - Assessment and Plan Surry: 1) Have you wished you were or [...] Behavior or preparation for suicide?: (P) No [place] Score: Suggested risk level: (P) Low SAFE-T: Current and past psychiatric diagnoses: (P) Mood Disorder;PTSD;Other (see comments) Presenting symptoms: (P) Anhedonia;Hopelessness or despair;Anxiety and/or panic;Insomnia Family history: (P) Suicidal behavior;[place] psychiatric diagnoses requiring hospitalization (sister suicidal [...] are there things, anyone or anything (family, jewish, pain of ) that have stopped you [...] weeks. c. Consider developing a safety plan. [facility] - [id number] 19:29:16 Pt arrives ambulatory to ED reporting that she is having a panic attack after fighting with a friend. She reports a terrible headache and took a Nurtec @ around 1819 this evening. She changed psychiatrist in January and does not have the meds that usually help her in this state. Alecia Benitez [facility] SpringsNvuwst3231-83-89 18:00:00 Regardin y f Pt is depressed, [...] hours, anxiety x 2 hours Mildred Anders [facility] [id number] 18:00:00 Adult Triage Assessment Last Clinic Visit: [...] hasn't had period for 2 years. On Pre-existing condition / Immunocompromised: pre Diabetic Reason for Disposition [1] Depression AND [2] unable to do any of normal activities (e.g., self care, school, work; in comparison to baseline). Protocols used: [id number] and Pt called for advice related to pt unable to stop crying after argument with friend. Advised to present to [facility] for evaluation And assistance. Pt states that she is concerned that she will be taken for inpatient care. and pt both do not desire. Requesting to continue Medication with current care team. They will present to Christian Anders RN [facility] Access Center Triage Nurse [facility]2023-07-28 11:49:29 Medication filled already on 02/20/23. Requested [...] by other means (e.g. phone or fax) [facility]
[2024-11-22] MEDS ORDERED: LORAZEPAM 1 MG TABLET ONE (23:59)
--- NOTE | 2024-11-23 01:03 | ER ---
Nurse's Notes [facility] Name: Claudine Morales Age: 34 yrs Sex: Female : 1990 Arrival Date: 11/22/2024 Time: 23:30 Bed 15 Private MD: Diagnosis: Anxiety disorder, unspecified Presentation: 11/22 23:48 Chief complaint: Patient states: shanice been feeling really tired and no energy to do lg3 anything but when im awake im having panic episodes X1 week. Coronavirus screen: Client denies travel out of the [place] in the last 14 days. At this time, the client does not indicate any symptoms associated with coronavirus-19. Ebola Screen: No symptoms or risks identified at this time. Initial Sepsis Screen: Does the patient meet any 2 criteria? No. Patient's initial sepsis screen is negative. Does the patient have a suspected source of infection? No. Patient's initial sepsis screen is negative. Risk Assessment: Do you want to hurt yourself or someone else? Patient reports no desire to harm self or others. Onset of symptoms is unknown. 23:48 Method Of Arrival: Ambulatory lg3 23:48 Acuity: VANDANA 3 lg3 Triage Assessment: 23:51 General: Appears in no apparent distress. Behavior is cooperative, anxious, crying. lg3 Pain: Denies pain. EENT: No deficits noted. No signs and/or symptoms were reported regarding the EENT system. Neuro: Davdison Agitation-Sedation Scale (RASS): +1 Restless Level of Consciousness is awake, alert, obeys commands, Oriented to person, place, time, situation. Cardiovascular: No deficits noted. Denies chest pain, shortness of breath, Heart tones S1 S2 present Capillary refill < 3 seconds Clubbing of nail beds is absent JVD is absent Patient's skin is warm and dry. Respiratory: No deficits noted. Airway is patent Respiratory effort is even, unlabored, Respiratory pattern is regular, symmetrical, Breath sounds are clear bilaterally. GI: No deficits noted. No signs and/or symptoms were reported involving the gastrointestinal system. : No signs and/or symptoms were reported regarding the genitourinary system. Derm: No deficits noted. No signs and/or symptoms reported regarding the dermatologic system. Skin is intact, is healthy with good turgor, Skin is dry, Skin is normal, Skin temperature is warm. Musculoskeletal: No deficits noted. No signs and/or symptoms reported regarding the musculoskeletal system. Circulation, motion, and sensation intact. Range of motion: intact in all extremities. 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 - control method, Not lg3 Historical: - Allergies: 23:51 Abilify; lg3 23:51 Lamictal; lg3 23:51 Latuda; lg3 23:51 Seroquel; lg3 23:51 ZIPRASIDONE; lg3 - Home Meds: 23:51 gabapentin oral [Active]; topiramate 100 mg Oral tablet 2 times per day [Active]; lg3 levothyroxine 50 mcg capsule daily [Active]; phentermine 37.5 mg Oral capsule daily [Active]; venlafaxine 75 mg Oral tablet daily [Active]; propranolol 40 mg Oral tablet once [Active]; Hydroxyzine Oral [Active]; - PMHx: 23:51 Hypertensive disorder; Hypothyroidism; insomnia; mood disorder; PCOS; lg3 - PSHx: 23:51 facial reconstruction; Tonsillectomy; Adenoid excision; lg3 - Immunization history:: Adult Immunizations up to date. - Infectious Disease History:: Denies. - Social history:: Smoking status: Patient denies any tobacco usage or history of. Patient uses street drugs, marijuana, Patient/guardian denies using alcohol. Screenin:55 [facility] ED Fall Risk Assessment (Adult) History of falling in the last 3 months, lg3 including since admission No falls in past 3 months (0 pts) Confusion or Disorientation No (0 pts) Intoxicated or Sedated No (0 pts) Impaired Gait No (0 pts) Mobility Assist Device Used No (0 pt) Altered Elimination No (0 pt) Score/Fall Risk Level 0 - 2 = Low Risk Oriented to surroundings, Maintained a safe environment, Educated pt \T\ family on fall prevention, incl call for assistance when getting out of bed, Assessed \T\ reinforced patient's understanding of fall precautions. Abuse screen: Denies threats or abuse. Denies injuries from another. Nutritional screening: No deficits noted. Tuberculosis screening: No symptoms or risk factors identified. Assessment: 23:55 General: see triage assessment. lg3 11/23 01:15 Reassessment: Patient appears in no apparent distress at this time. Patient and/or lg3 family updated on plan of care and expected duration. Pain level reassessed. Patient is alert, oriented x 3, equal unlabored respirations, skin warm/dry/pink. Patient states feeling better. Patient states symptoms have improved. Vital Signs: 11/22 23:48 BP 153 / 98; Pulse 107; Resp 17 S; Temp 98.1(O); Pulse Ox 98% on R/A; Weight 141.07 kg lg3 (R); Height 4 ft. 9 in. ; Pain 0/10; 11/23 01:15 BP 141 / 88; Pulse 97; Resp 17 S; Pulse Ox 99% on R/A; lg3 11/22 23:48 Body Mass Index 67.30 (141.07 kg, 144.78 cm) lg3 11/22 23:48 Pain Scale: Adult lg3 ED Course: 11/22 23:33 Patient arrived in ED. jj6 23:48 Shazia Werner, RN is Primary Nurse. lg3 23:50 Gwyn Henley MD is Attending Physician. sp3 23:50 Brennon Pan FNP-C is [facility]. dr5 23:51 Triage completed. lg3 23:51 Arm band placed on right wrist. lg3 23:55 Patient has correct armband on for positive identification. Placed in gown. Bed in low lg3 position. Call light in reach. Side rails up X 1. Client placed on continuous cardiac and pulse oximetry monitoring. NIBP monitoring applied. Door closed. Noise minimized. Warm blanket given. Pillow given. Family accompanied patient. 11/23 01:15 No provider procedures requiring assistance completed. Patient did not have IV access lg3 during this emergency room visit. Administered Medications: 00:01 Drug: LORazepam PO 2 mg PO once Route: PO; lg3 01:17 Follow up: Response: No adverse reaction; Marked relief of symptoms; Anxiety decreased; lg3 RASS: Alert and Calm (0) Medication: 11/22 23:55 VIS not applicable for this client. lg3 Outcome: 11/23 01:03 Discharge ordered by . dr5 01:15 Discharged to home ambulatory, with significant other, lg3 01:15 Condition: stable 01:15 Discharge instructions given to patient, Instructed on discharge instructions, follow up and referral plans. medication usage, Demonstrated understanding of instructions, follow-up care, medications, Prescriptions given X 1, 01:17 Patient left the ED. lg3 Signatures: Shazia Werner RN RN lg3 Gwyn Henley MD MD sp3 Elise Loera6 Brennon Pan, CLIENT SERVICES ADMINISTRATOR-C CLIENT SERVICES ADMINISTRATOR-Cdr5
--- NOTE | 2024-11-23 01:04 | EDPHYS ---
Physician Documentation [facility] Name: Claudine Morales Age: 34 yrs Sex: Female : 1990 Arrival Date: 11/22/2024 Time: 23:30 Bed 15 Private MD: ED Physician Gwyn Henley HPI: 11/23 02:08 This 34 yrs old Female presents to ER via Ambulatory with complaints of dr5 Anxiety. 02:08 Patient is a 34-year-old female with history of hypertension hypothyroidism insomnia dr5 mood disorders PCOS and anxiety coming in with panic attack at home. Patient denies suicidal or homicidal ideations. Patient reports that she needs therapy and does not want to be transferred to an inpatient psychiatric center. at bedside states that all firearms are locked up, medications are withheld.. 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 LMP N/A - control method, Not lg3 Historical: - Allergies: 23:51 Abilify; lg3 23:51 Lamictal; lg3 23:51 Latuda; lg3 23:51 Seroquel; lg3 23:51 ZIPRASIDONE; lg3 - Home Meds: 23:51 gabapentin oral [Active]; topiramate 100 mg Oral tablet 2 times per day [Active]; lg3 levothyroxine 50 mcg capsule daily [Active]; phentermine 37.5 mg Oral capsule daily [Active]; venlafaxine 75 mg Oral tablet daily [Active]; propranolol 40 mg Oral tablet once [Active]; Hydroxyzine Oral [Active]; - PMHx: 23:51 Hypertensive disorder; Hypothyroidism; insomnia; mood disorder; PCOS; lg3 - PSHx: 23:51 facial reconstruction; Tonsillectomy; Adenoid excision; lg3 - Immunization history:: Adult Immunizations up to date. - Infectious Disease History:: Denies. - Social history:: Smoking status: Patient denies any tobacco usage or history of. Patient uses street drugs, marijuana, Patient/guardian denies using alcohol. ROS: 11/23 02:08 Constitutional: as per hpi dr5 Exam: 02:08 Constitutional: This is a well developed, well nourished patient who is awake, alert, dr5 and in no acute distress. Head/Face: Normocephalic, atraumatic. Eyes: Pupils equal round and reactive to light, extra-ocular motions intact. Lids and lashes normal. Conjunctiva and sclera are non-icteric and not injected. Cornea within normal limits. Periorbital areas with no swelling, redness, or edema. Neck: Trachea midline, no thyromegaly or masses palpated, and no cervical lymphadenopathy. Supple, full range of motion without nuchal rigidity, or vertebral point tenderness. No Meningismus. Chest/axilla: Normal chest wall appearance and motion. Nontender with no deformity. No lesions are appreciated. Cardiovascular: Regular rate and rhythm with a normal S1 and S2. Normal PMI, no JVD. No pulse deficits. Respiratory: Lungs have equal breath sounds bilaterally, clear to auscultation. No rales, rhonchi or wheezes noted. No increased work of breathing, no retractions or nasal flaring. Back: No spinal tenderness. No costovertebral tenderness. Full range of motion. Skin: Warm, dry with normal turgor. Normal color with no rashes, no lesions, and no evidence of cellulitis. MS/ Extremity: Pulses equal, no cyanosis. Neurovascular intact. Full, normal range of motion. Neuro: Awake and alert, GCS 15, oriented to person, place, time, and situation. Cranial nerves II-XII grossly intact. Motor strength 5/5 in all extremities. Sensory grossly intact. Cerebellar exam normal. Normal gait. Psych: Awake, alert, with orientation to person, place and time. Behavior, mood, and affect are within normal limits. Vital Signs: 11/22 23:48 BP 153 / 98; Pulse 107; Resp 17 S; Temp 98.1(O); Pulse Ox 98% on R/A; Weight 141.07 kg lg3 (R); Height 4 ft. 9 in. ; Pain 0/10; 11/23 01:15 BP 141 / 88; Pulse 97; Resp 17 S; Pulse Ox 99% on R/A; lg3 11/22 23:48 Body Mass Index 67.30 (141.07 kg, 144.78 cm) lg3 11/22 23:48 Pain Scale: Adult lg3 MDM: 11/22 23:50 Medical Screening Exam initiated dr5 11/23 02:08 Differential Diagnosis: Anxiety, Depression, Panic Disorder. Data reviewed: vital dr5 signs, nurses notes. I considered the following discharge prescriptions or medication management in the emergency department Medications were administered in the Emergency Department. See MAR. Care significantly affected by the following Social Determinants of Health: Poor access to healthcare and/or lack of insurance, Poor access to transportation, Problems related to employment. Counseling: I had a detailed discussion with the patient and/or guardian regarding the historical points, exam findings, and any diagnostic results supporting the discharge/admit diagnosis, the presence of at least one elevated blood pressure reading (>120/80) during this emergency department visit, the need for outpatient follow up, for definitive care, a family practitioner, a psychiatrist, to return to the emergency department if symptoms worsen or persist or if there are any questions or concerns that arise at home. ED course: Patient is feeling much better after lorazepam. Patient feels safe to go home. Resources for psychiatric centers given to patient by myself. reports that he feels safe that she can go home and be safe. Will try to call resources on page I gave her. Strict ER precautions given. All questions answered. Patient is agreeable to plan.. Administered Medications: 00:01 Drug: LORazepam PO 2 mg PO once Route: PO; lg3 01:17 Follow up: Response: No adverse reaction; Marked relief of symptoms; Anxiety decreased; lg3 RASS: Alert and Calm (0) Disposition Summary: 11/23/24 01:03 Discharge Ordered Notes: Location: Home dr5 Condition: Stable dr5 Diagnosis - Anxiety disorder, unspecified dr5 Followup: dr5 - With: Emergency Department - When: As needed - Reason: Worsening of condition Followup: dr5 - With: Private Physician - When: 1 - 2 days - Reason: Recheck today's complaints, Continuance of care, Re-evaluation by your physician Discharge Instructions: - Discharge Summary Sheet dr5 - Panic Attack dr5 Forms: - Medication Reconciliation Form dr5 - Patient Portal Instructions dr5 - Leadership Thank You Letter dr5 Prescriptions: - Ativan 1 mg Oral tablet - take 1 tablet ORAL route every 8 hours As needed; 5 tablet; Refills: 0, Product dr5 Selection Permitted Signatures: Shazia Werner RN RN lg3 Brennon Pan, DALILA-C UNDER CUTTING MACHINE OPERATOR-Cdr5
[2024-11-23 01:49] VITALS: TEMP 98.1
[2024-11-23 01:50] VITALS: BP 141/88; O2SAT 99
== END 2024-11-23 01:17 | disposition home or self-care (01) ==
LOC: ER 23:30
DX: F41.9 Anxiety disorder, unspecified (principal); I10 Essential (primary) hypertension; E03.9 Hypothyroidism, unspecified
CPT/HCPCS: 99283